=== PATIENT | male | born 1965 | race Caucasian/White ===

== ENCOUNTER 2022-05-10 10:31 | Observation (INO) | payer OTHER, SELFPAY ==
[2022-05-10] VITALS (10 sets, daily range): BP systolic 111–143; BP diastolic 64–99; PULSE 60–86; RESP 14–20; TEMP 36.6–36.8; O2SAT 96–100; BMI 40.0
--- NOTE | 2022-05-10 | ECHO_ITS ---
Patient Info Name: Bubba Saxena Age: 57 years : 1965 Gender: Male Ht: 69 in Wt: 270 lbs BSA: 2.50 m2 HR: 66 bpm BP: 121 / 71 mmHg Heart Rhythm: Sinus Rhythm Exam Date: 05/10/2022 3:12 PM Exam Location: [facility] Patient Status: Emergency Admit Date: 05/10/2022 Staff Ordering Physician: Lyudmila Kaufman NP Cold Food Packer: Amrit Hyde RDCS, RT Attending Provider: Ritu León MD Referring Physician: Mandeep RATLIFF; Exam Type: CA echo doppler color flow Study Info Indications I50.9 - Heart failure, unspecified Complete two-dimensional, color flow and Doppler transthoracic echocardiogram is performed. Summary 1. Complete two-dimensional, color flow and Doppler transthoracic echocardiogram is performed. 2. Technically challenging echocardiogram because of obese body habitus. 3. Overall adequate appearing left ventricular systolic function. 4. Right ventricular dilation and systolic dysfunction. 5. Right atrial enlargement. 6. Tricuspid regurgitation velocity suggests mild pulmonary hypertension. Left Ventricle Left ventricular chamber dimension is normal. Left ventricular systolic function is normal, estimated at 50-55%. The left ventricular diastolic function is grade I diastolic dysfunction. Right Ventricle Right ventricular chamber dimension is moderately enlarged. Right ventricular systolic function is reduced. Left Atria Left atrial chamber dimension is normal. Right Atria Right atrial chamber dimension is moderately enlarged. Aortic Valve The aortic valve is normal. Pulmonic Valve The pulmonic valve is not well visualized. Mitral Valve The mitral valve has normal leaflets. Tricuspid Valve The tricuspid valve leaflets are normal. There is moderate tricuspid valve regurgitation. Mild pulmonary hypertension, estimated pulmonary arterial systolic pressure is Empty. Pericardium/Pleural The pericardium appears normal. Aorta The aortic root size at the sinus of Valsalva is normal. Left Ventricular Outflow Tract Name Value Normal LVOT 2D LVOT Diameter 2.3 cm LVOT Doppler LVOT Peak Gradient 2 mmHg LVOT Mean Gradient 1 mmHg LVOT VTI 16 cm LVOT VTI/AV VTI Ratio 0.7 LVOT Stroke Volume 67 ml LVOT CO 3.9 l/min LVOT CI 1.6 l/min/m2 Mitral Valve Name Value Normal MV Doppler MV Decel [place] 158 cm/s2 MV PHT 101 ms MV Area (PHT) 2.2 cm2 4.0-5.0 MV Diastolic Function MV E Peak Velocity 55 cm/s MV A Peak
--- NOTE | ~2022-05-10 | XR_ITS ---
XR chest 2V DATE: 05/10/2022 12:00 INDICATION: Shortness of breath, bilateral leg swelling. TECHNIQUE: AP and lateral views COMPARISON: 09/19/2011 PA and lateral chest FINDINGS: There is cardiomegaly. There is pulmonary vascular congestion and redistribution. There is mild right and minimal left pleural effusion. There are bilateral central and to a greater extent lower lung zone infiltrates and/or atelectasis, r ight greater than left. Pulmonary edema is suspected. Pneumonia an aspiration pneumonitis or not excl uded. Degenerative changes of the thoracic and lumbar spine. IMPRESSION: Cardiomegaly, congestive heart failure, including mild right and minimal left pleural eff usion Bilateral central and to a greater extent lower lung zone infiltrates and/atelectasis; pulmonary arnoldo a is suspected. Pneumonia and aspiration pneumonitis are not excluded Reviewed, dictated and finalized at location B. CLOSER IMPRESSION: Cardiomegaly, congestive heart failure, including mild right and mi nimal left pleural effusion Bilateral central and to a greater extent lower lung zone infiltrates and/atele ctasis; pulmonary edema is suspected. Pneumonia and aspiration pneumonitis are not excluded
--- NOTE | ~2022-05-10 | US_ITS ---
EXAMINATION: US venous doppler [facility] DATE: 05/10/2022 12:41 INDICATION: Bilateral lower limb swelling TECHNIQUE: Poole scale images without and with compression and Doppler images of the bilateral lower e xtremity veins were obtained. COMPARISON: None FINDINGS: The right common femoral vein, profunda femoral vein, femoral vein, popliteal vein, peroneal trunk, p osterior tibial veins, and greater saphenous vein are patent. The left common femoral vein, profunda femoral vein, femoral vein, popliteal vein, peroneal trunk, po sterior tibial veins, and greater saphenous vein are patent. IMPRESSION: 1. Patent bilateral lower extremity veins. No evidence of deep venous thrombosis. Reviewed, dictated and finalized at location A. ARTIST IMPRESSION: 1. Patent bilateral lower extremity veins. No evidence of deep venous thrombosi s.
--- NOTE | 2022-05-10 10:45 | ECG_ITS ---
Measurements Intervals [place] Rate: 82 P: 27 SC: 217 QRS: 266 QRSD: 107 T: -29 QT: 361 QTc: 423 Interpretive Statements SINUS RHYTHM WITH FIRST DEGREE AV BLOCK SUSPECT PREVIOUS ANTERIOR AND INFERIOR [place] ABNORMAL ECG NO PREVIOUS ECG AVAILABLE FOR COMPARISON Electronically Signed On 05-10-2022 17:19:18 TAPE CONTROL SKIN OR SPAR MILL OPERATOR by Braden Griffin M.D.
[2022-05-10 11:11] LABS: Basophils Percent Auto 0.5 % (0.2-1.2); Eosinophils Percent Auto 0.4 % (0-4.4); Hematocrit 44.9 % (42.0-52.0); Hemoglobin 13.1 g/dL (14.0-18.0); Immature Granulocyte Absolute 0.03 K/mm3 (0.00-0.031); Immature Granulocyte Percent A 0.5 % (0-0.5); Lymphocytes Absolute Auto 0.52 K/mm3 (0.9-3.2); Lymphocytes Percent Auto 9.5 % (18.3-44.2); Mean Corpuscular HGB Conc 29.2 g/dl (32-36); Mean Corpuscular Hemoglobin 28.6 pg (26-34); Mean Platelet Volume 11.3 fl (7.4-10.4); Monocytes Absolute Auto 0.6 K/mm3 (0.1-0.6); Monocytes Percent Auto 10.2 % (2.6-8.5); Neutrophils Absolute Auto 4.3 K/mm3 (1.3-6.7); Neutrophils Percent Auto 78.9 % (45.5-73.1); Nucleated Red Blood Cells Perc 0.4 % (0.0-0.2); Platelet Count Result 194 k/mm3 (150-375); Red Blood Count 4.58 M/mm3 (4.6-6.20); Red Cell Distribution Width 15.3 % (11.5-14.5); White Blood Count 5.5 K/mm3 (4.5-10.0)
[2022-05-10 11:23] LABS: INR 1.2
[2022-05-10 11:24] LABS: Partial Thromboplastin Time 33.1 SECONDS (22.3-36.8)
[2022-05-10 11:30] LABS: Alanine Aminotransferase 18 U/L (6-50); Albumin Level 3.5 g/dL (3.5-5.1); Alkaline Phosphatase 76 U/L (38-126); Anion Gap 5 mmol/L (8-16); Aspartate Amino Transferase 24 U/L (17-59); Bilirubin,Total 0.4 mg/dL (0.2-1.3); Blood Urea Nitrogen 60 mg/dL (9-20); Calcium 8.2 mg/dL (8.4-10.2); Carbon Dioxide 29 mmol/L (22-30); Chloride 101 mmol/L (98-107); Estimated CRCL calculation 22 ml/min; Estimated Glomerular Filt Rate 14; Glucose 120 mg/dL (65-110); Potassium 4.6 mmol/L (3.4-5.0); Sodium 135 mmol/L (137-145)
[2022-05-10 11:35] LABS: NT Pro B Type Natriuretic Pept 23800 pg/mL (5-100); Troponin I 0.163 ng/mL (0.000-0.034)
--- NOTE | 2022-05-10 11:55 | ED.GENADULT ---
HPI - General Adult General Chief complaint: Shortness of Breath/Dyspnea Stated complaint: oxygen level low, leg swelling, PCP sent in Time Seen by Provider: 05/10/22 11:36 Source: patient, RN notes reviewed and old records reviewed Mode of arrival: ambulatory Limitations: no limitations History of Present Illness HPI narrative: This is a 57 year old male with history of DM, hypertension who presents fo evaluation of bilateral leg swelling and low oxygen saturation. Patient has noticed bilateral leg swelling with leg wounds for 2 weeks. He was seen in his PCP office today and he was referred to ER. Patient was found have oxygen saturation in the 80s in triage so he was placed on 3 L NC. He denies chest pain, sob, nausea, vomiting or fever. He has noticed a cough for 1 week. He denies orthopnea as well. He denies history of CHF or heart disease. He also states he was seen by a dethistler operator 2 weeks, and he was told that his heart was fine. He was evaluated at an urgent care 2 weeks ago for leg wounds to bilateral legs. He was prescribed antibiotic ointment and he states his wounds are improving. He denies leg pain. Related Data Home Medications Medication Instructions Recorded Confirmed amlodipine 10 mg tablet 10 mg PO DAILY 10/09/20 05/10/22 calcitriol 0.25 mcg capsule 0.25 mcg PO DAILY 10/09/20 05/10/22 carvedilol 12.5 mg tablet 12.5 mg PO Q12H 10/09/20 05/10/22 levothyroxine 112 mcg capsule 112 mcg PO DAILY 10/09/20 05/10/22 losartan 100 mg tablet 100 mg PO DAILY 10/09/20 05/10/22 pioglitazone 30 mg tablet 30 mg PO DAILY 10/09/20 05/10/22 pravastatin 40 mg tablet 40 mg PO DAILY 10/09/20 05/10/22 Allergies Allergy/AdvReac Type Severity Reaction Status Date / Time No Known Allergies Allergy Unknown Verified 05/10/22 10:32 Review of Systems Review of Systems: All systems reviewed & are unremarkable except as noted in HPI and below Constitutional: Constitutional: Denies chills, Denies fatigue and Denies fever(s) Cardiovascular: Cardiovascular: Denies chest pain, Denies rapid heart rate and Denies radiating jaw, neck or arm pain Respiratory: Respiratory: Denies chest congestion, Reports cough and Denies dyspnea Gastrointestinal: Gastrointestinal: Denies diarrhea and Denies nausea Integumentary/Breasts: Skin/Breast: Denies erythema and Reports skin ulcer Neurologic: Denies focal weakness and Denies numbness PMFSH Past Medical History Medical History (Updated 05/10/22 @ 19:12 by Ritu León MD) Amputated toe CRF (chronic renal failure) Diabetes Erythropoietin deficiency anemia Generalized edema HTN (hypertension) with goal to be determined Hyperlipidemia Hypertension Hypothyroidism Renal osteodystrophy Surgical History Surgical History (Updated 05/10/22 @ 16:44 by Lyudmila Kaufman NP) H/O foot surgery Amputation right great toe History of throat surgery Family History Family History Mother Family history of diabetes mellitus in first degree relative Diabetes mellitus Hypertension Heart disease Cerebrovascular accident Father Alcoholism Sibling Alcoholism Diabetes mellitus Hypertension Heart disease Cerebrovascular accident Other Family history of lung cancer Social History Social History (Updated 05/10/22 @ 16:35 by Lyudmila Kaufman NP) Social History: The patient is and has 1 child. The patient is a former smoker. He denies any alcohol marijuana or illicit drugs. 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 His is the durable power insurance attorney for healthcare. Code status full code Smoking status: Former smoker Alcohol intake: never Substance use: never Substance use type: does not use Lack of Transportation: No Lack of Food: Never True Current Housing: I Have Housing Concerned About Future Housing: No Difficulty Paying Gas/Electric Bills: No Difficulty Paying for Meds: No Currently
[2022-05-10 12:12] LABS: Platelet Estimate Adequate (Adequate)
[2022-05-10 12:13] LABS: Hypochromasia 1+ (NORMAL); Schistocytes None Seen (NORMAL)
[2022-05-10] MEDS: ASPIRIN 81 MG CHEWABLE TABLET 324 MG PO (12:33)
[2022-05-10 12:53] LABS: Appearance Urine Clear (Clear); Bilirubin Urine Negative (Negative); Blood Urine 1+ (Negative); Color Urine Yellow (Yellow); Glucose Urine UA Negative (Negative); Ketones Urine Negative (Negative); Leukocyte Esterase Ur Negative LEU/UL (Negative); Nitrate Urine Negative (Negative); Protein Urine 3+ mg/dL (Negative); Urobilinogen Urine 0.2 mg/dL (<2.0); pH Urine 5.5 (5.0-9.0)
[2022-05-10 13:19] LABS: Mucus Urine Rare /lpf; Squamous Epithelial Cell Urine Rare /hpf (Few); WBC Urine 0-3 /hpf
[2022-05-10 13:20] LABS: Add Urine Microscopic? YES
[2022-05-10 13:28] LABS: Influenza A QL RT-PCR Negative (Negative); Influenza B QL RT-PCR Negative (Negative); SARS-CoV-2 RNA PCR Negative
--- NOTE | 2022-05-10 13:31 | PM.IMHP ---
H&P: HPI History of Present Illness Date/Time: 05/10/22 13:31 Chief Complaint: Shortness of breath Narrative: This is a 57-year-old male patient who has a history of diabetes, hypertension and possibly CHF. The patient noticed increased swelling to his lower extremities. Patient has multiple blisters that have popped open on his lower extremities and started to ooze. The patient stated she is seen by his primary care doctor today was referred to the emergency room. The patient was found have oxygen saturations in the 80s in triage was placed on oxygen at 3 L per nasal cannula. The patient was evaluated at a care approximately 2 weeks ago for his wounds to his lower extremities. He was prescribed an antibiotic ointment. The patient was given an aspirin and Bumex. Venous Doppler showed pain bilateral lower extremity veins. No evidence of deep vein thrombosis. BUN is 60 creatinine is 4.3. Troponin 0.163. BNP 49394. He is negative for influenza A/B and COVID. Chest x-ray was read as Cardiomegaly, congestive heart failure, including mild right and minimal left pleural effusion Bilateral central and to a greater extent lower lung zone infiltrates and/atelectasis; pulmonary edema is suspected. Pneumonia and aspiration pneumonitis are not excluded. Cardiology and Nephrology have been consulted. Wound Care has been consulted as well. The patient is being admitted to observation status on the date of service of 05/10/2022. Review of Systems Review of Systems: See HPI All systems reviewed & are unremarkable except as noted in HPI and below Constitutional: Constitutional: Reports as per HPI and Reports no additional constitutional complaints Eyes: Eyes: Reports as per HPI and Reports no additional eye complaints ENT: Reports system reviewed and no additional complaints, except as documented and Reports Normal hearing present Cardiovascular: Cardiovascular: Reports no additional cardiovascular complaints Respiratory: Respiratory: Reports no additional respiratory complaints and Reports no additional respiratory complaints Gastrointestinal: Gastrointestinal: Reports as per HPI and Reports no additional gastrointestinal complaints Musculoskeletal: Musculoskeletal: Reports no additional musculoskeletal complaints Integumentary/Breasts: Skin/Breast: Reports system reviewed and no additional complaints, except as docu and Reports as per HPI Neurologic: Reports system reviewed and no additional complaints, except as documented, Reports as per HPI and Reports Normal hearing present Psychiatric: Psychiatric: Reports no additional psychiatric complaints and Reports as per HPI Endocrine: Endocrine: Reports no additional endocrine complaints Hematologic/Lymphatic: Hematologic/Lymphatic: Reports no additional hematologic/lymphatic complaints Allergic/Immunologic: Allergic/Immunologic: Reports no additional allergic/immunologic complaints [facility] Past Medical History Medical History (Updated 05/10/22 @ 16:55 by Lyudmila Kaufman NP) Amputated toe CRF (chronic renal failure) Diabetes Erythropoietin deficiency anemia Generalized edema HTN (hypertension) with goal to be determined Hyperlipidemia Hypertension Hypothyroidism Renal osteodystrophy Surgical History Surgical History (Updated 05/10/22 @ 16:44 by Lyudmila Kaufman NP) H/O foot surgery Amputation right great toe History of throat surgery Family History Family History Mother Family history of diabetes mellitus in first degree relative Diabetes mellitus Hypertension Heart disease Cerebrovascular accident Father Alcoholism Sibling Alcoholism Diabetes mellitus Hypertension Heart disease Cerebrovascular accident Other Family history of lung cancer Social History Social History (Updated 05/10/22 @ 16:35 by Lyudmila Kaufman NP) Social History: The patient is and has 1 child. The patient is
[2022-05-10] MEDS: BUMETANIDE INJ 1 MG/4 ML VIAL IV PUSH (14:18)
--- NOTE | 2022-05-10 16:21 | PC.NURSE ---
renal diet food tray ordered
--- NOTE | 2022-05-10 16:24 | PM.CNNEP ---
Assessment and Plan Assessment and plan (1) CRF (chronic renal failure): Code(s): N18.9 - Chronic kidney disease, unspecified Status: Acute Assessment and Plan: the patient has chronic kidney disease. In 2020 his creatinine was 3.6. Now it is 4.3. Etiology of the kidney disease is most likely diabetes and hypertension. He may have some vascular disease as well. He has been evaluated by Dr. Davis in the past and so I will not repeat this evaluation. The rise from 3.6-4.3 occurred in about 3 years. This is actually not much of a rise and so is most likely due to progression of chronic kidney disease. we discussed that hydration, control of diabetes and hypertension, and following his diet are important parts of slowing the damage to his kidneys. (2) HTN (hypertension) with goal to be determined: Code(s): I10 - Essential (primary) hypertension Status: Acute Assessment and Plan: The patient has hypertension. His blood pressure is under good control. He is on amlodipine and losartan for this. (3) Generalized edema: Code(s): R60.1 - Generalized edema Status: Acute Assessment and Plan: The patient has significant swelling. This started about 2 weeks ago he says. Venous Dopplers are negative. Chest x-ray shows cardiomegaly and congestive heart failure. It is possible that with his progression of kidney disease he just has fluid overload because of the kidneys. It is also possible the has some sort of new heart condition causing his swelling. He may have nephrotic range proteinuria which has worsened and caused the swelling. Amlodipine and pioglitazone both cause swelling as well. At this point will get an echocardiogram, will check a urine protein to creatinine ratio, and will give some diuretics. Consider changing amlodipine and pioglitazone to something else? (4) Diabetes: Code(s): E11.9 - Type 2 diabetes mellitus without complications Status: Acute Assessment and Plan: The patient has diabetes. management per hospitalist (5) Hypothyroidism: Code(s): E03.9 - Hypothyroidism, unspecified Status: Acute Assessment and Plan: patient is on supplements for this (6) Erythropoietin deficiency anemia: Code(s): D63.1 - Anemia in chronic kidney disease Status: Acute Assessment and Plan: hemoglobin is low but just barely so. No need for SHERINE. (7) Renal osteodystrophy: Code(s): N25.0 - Renal osteodystrophy Status: Acute Assessment and Plan: Will check a phosphorus level in the morning History of Present Illness Reason for Consult Consult date: 05/10/22 Chief Complaint Chief complaint: CHF/Hypoxia/Pulmonary Edema History of Present Illness Narrative: Bubba is a very pleasant 57-year-old gentleman who has multiple medical problems including hypertension, diabetes, renal chronic kidney disease, renal osteodystrophy, hypothyroidism, hyperlipidemia, amputated right toe. The patient has been following with Dr. Davis in the office. His creatinine has been gradually rising apparently according to the patient. He and Dr. Davis have been talking about dialysis being in the future but not right away. He is supposed to see Dr. Davis in a week to talk more about dialysis. He has not received any education. The patient says that about 2 weeks ago he started swelling. This came on all of a sudden. After that it got a little worse but not all that much. Today he came to the emergency room because it would not get better. He did not try calling any doctors about this in the meantime. He has not changed his medications. He has not been out of town or change his diet. He has not had any chest pain or shortness of breath. He has not had any fevers or chills. He has had hypertension for a long time. He says this is been under good control. He has never had a stroke or he
[2022-05-10] MEDS: SILVERGEL (ELTA) 45 ML 1 APPLIC TOPICAL (17:39)
[2022-05-10 17:57] LABS: Glucose Point of Care 87 mg/dl (65-105)
--- NOTE | 2022-05-10 18:00 | PC.NURSE ---
called pharmacy to verify Coreg.
[2022-05-10 18:56] LABS: Hemoglobin A1C 5.8 % (<5.7)
[2022-05-10 18:57] LABS: Glucose Point of Care 102 mg/dl (65-105)
--- NOTE | 2022-05-10 20:43 | PC.NURSE ---
Dr. Samuels notified of leaving AMA. supervisor metal furniture fabrication notified by the charge nurse.
--- NOTE | 2022-05-17 23:57 | PM.DS ---
DS: Admitting Diagnosis Discharge Date 05/10/22 Admitting Diagnosis CHF DS: Discharge Diagnosis Discharge Diagnosis Plan (1) Congestive heart failure: ?Code(s): I50.9 - Heart failure, unspecified ?Status:?Acute ?Assessment and Plan: -an echo has been ordered -the patient has been on Coreg And he has been on losartan. -patient has a history of chronic renal disease so I am holding his losartan for now -cardiology has been consulted for further recommendation. -I am holding the Norvasc as it can cause some edema. (2) CRF (chronic renal failure): ?Code(s): N18.9 - Chronic kidney disease, unspecified ?Status:?Acute ?Assessment and Plan: -nephrology has been consulted here the patient sees Dr. Davis.? There has been some discussion about dialysis. -I am holding his losartan and pioglitazone due to the renal failure. (3) Diabetes: ?Code(s): E11.9 - Type 2 diabetes mellitus without complications ?Status:?Acute ?Assessment and Plan: -nephrology suggested that the patient be changed to something other than pioglitazone. -I will do sliding scale insulin with hypoglycemic protocol and Accu-Cheks AC and HS. -check A1c. (4) Erythropoietin deficiency anemia: ?Code(s): D63.1 - Anemia in chronic kidney disease ?Status:?Acute ?Assessment and Plan: -hemoglobin 13.1 today -continue to monitor (5) History of laryngeal cancer: ?Code(s): Z85.21 - Personal history of malignant neoplasm of larynx ?Status:?Acute ?Assessment and Plan: -the patient stated he is in remission (6) HTN (hypertension) with goal to be determined: ?Code(s): I10 - Essential (primary) hypertension ?Status:?Acute ?Assessment and Plan: -continue with Coreg -p.r.n. hydralazine with parameters.? -I am holding Norvasc due to the side effects of edema.? -holding losartan due to the acute on chronic renal failure. (7) Renal osteodystrophy: ?Code(s): N25.0 - Renal osteodystrophy ?Status:?Acute ?Assessment and Plan: -Dr. Munoz has seen the patient.? Although this patient usually sees Dr. davis .? There has been some talk about possible dialysis. (8) Thyroid disorder: ?Code(s): E07.9 - Disorder of thyroid, unspecified ?Status:?Acute ?Assessment and Plan: -check thyroid level and continue levothyroxine (9) Hyperlipidemia: ?Code(s): E78.5 - Hyperlipidemia, unspecified ?Status:?Acute ?Assessment and Plan: -continue with pravastatin Plan The patient has several areas to his lower extremity were blisters that popped open and I did consult wound care nurse. Quality VTE Prophylaxis VTE prophylaxis: pharmacologic ordered This dictation may have been done utilizing a voice recognition system.? Attempts have been made to correct errors. However, there may be uncorrected grammatical, spelling, and recognition errors present. Report Initialized date/time:? Lyudmila Kaufman CHIEF CATALYST OPERATOR? 05/10/221336 Electronically signed by:?? Lyudmila Kaufman CHIEF CATALYST OPERATOR? 05/10/22 1700 DS: Summary Hospital Course Reason for hospitalization: See above. It was reported to me that the patient signed out AMA. Hospital Course: [facility] [address] [place] [address] History & Physical Report Signed Patient: Bubba Saxena MR#: [id number] : 1965 Acct:[id number] Age/Sex: 57 / M ADM Date: 05/10/22 Loc: [facility]6-[address]: Karina Robles DO cc: Ritu León MD; Karina Robles DO; Epi, Kenzie Turner MD~ H&P: HPI History of Present Illness Date/Time: 05/10/22? 13:31 Chief Complaint: Shortness of breath Narrative: This is a 57-year-old male patient who has a history of diabetes, hypertension and possibly CHF.? The patient noticed increased swelling to his lower extremities.? Patient has multiple blisters that have popped open on his lower
== END 2022-05-10 21:00 | disposition left against medical advice (07) ==
LOC: ANHED 12:34 → ANHIMU 16:16
PROVIDERS: Nurse Practitioner; Nurse Practitioner Family; Admitting Provider Student in an Organized Health Care Education/Training Program; Emergency Provider General Practice; PCP Family Medicine; Visit Provider Student in an Organized Health Care Education/Training Program
DX: I13.0 Hypertensive heart and chronic kidney disease with heart failure and stage 1 through stage 4 chronic kidney disease, or unspecified chronic kidney disease (principal); I50.9 Heart failure, unspecified; E11.22 Type 2 diabetes mellitus with diabetic chronic kidney disease; N18.9 Chronic kidney disease, unspecified; D63.1 Anemia in chronic kidney disease; N25.0 Renal osteodystrophy; E03.9 Hypothyroidism, unspecified; E78.5 Hyperlipidemia, unspecified; R60.0 Localized edema; R09.02 Hypoxemia; S81.802A Unspecified open wound, left lower leg, initial encounter; S81.801A Unspecified open wound, right lower leg, initial encounter; R05.9 Cough, unspecified; Z89.421 Acquired absence of other right toe(s); E87.70 Fluid overload, unspecified; Z20.822 Contact with and (suspected) exposure to COVID-19; R91.8 Other nonspecific abnormal finding of lung field; I07.1 Rheumatic tricuspid insufficiency; R94.31 Abnormal electrocardiogram [ECG] [EKG]; R35.89 Other polyuria; Z85.21 Personal history of malignant neoplasm of larynx; Z87.891 Personal history of nicotine dependence; Z79.899 Other long term (current) drug therapy; Z83.3 Family history of diabetes mellitus; Z82.49 Family history of ischemic heart disease and other diseases of the circulatory system; Z82.3 Family history of stroke
CPT/HCPCS: 36415; 71046; 80053; 81001; 82948; 83036; 83880; 84484; 85025; 85610; 85730; 87636; 93005; 93306; 93970; 96374; 99285; A9270; G0378; G0379

== ENCOUNTER 2022-08-24 01:32 | Emergency (ER) | payer OTHER, SELFPAY ==
[2022-08-24] VITALS (8 sets, daily range): BP systolic 97–138; BP diastolic 64–91; PULSE 86–136; RESP 16–22; TEMP 36.7; O2SAT 95–97
--- NOTE | ~2022-08-24 | XR_ITS ---
EXAMINATION: XR chest 2V DATE: 08/24/2022 03:07 INDICATION: Hypoxia TECHNIQUE: PA and lateral views of the chest are obtained. COMPARISON: 05/10/2022 FINDINGS: There are persistent airspace opacities in the left lung base. A tracheostomy is noted. No pleural effusion or pneumothorax. The cardiomediastinal silhouette is normal. There is mild thoracic spondylosis. A gastrostomy is noted. IMPRESSION: 1. Left basilar airspace opacity, consistent with atelectasis versus pneumonia. Reviewed, dictated and finalized at location A.
--- NOTE | 2022-08-24 02:01 | ECG_ITS ---
Measurements Intervals [place] Rate: 104 P: 50 MI: 200 QRS: 115 QRSD: 98 T: -5 QT: 329 QTc: 433 Interpretive Statements SINUS TACHYCARDIA RIGHT AXIS DEVIATION POSSIBLE LEFT ATRIAL ENLARGEMENT BORDERLINE AV CONDUCTION DELAY PATTERN CONSISTENT WITH PULMONARY DISEASE BORDERLINE ST-T WAVE ABNORMALITY- INFERIOR LEADS BASELINE ARTIFACT- I, II, III, AVR, AVL, AVF, V1-V6 BORDERLINE ECG COMPARED TO ECG 05/10/2022 10:51:24 SINUS TACHYCARDIA NOW PRESENT Electronically Signed On 08-24-2022 8:25:29 CDT by Emery Valera D.O.
[2022-08-24 02:18] LABS: Basophils Percent Auto 0.4 % (0.2-1.2); Hematocrit 40.6 % (42.0-52.0); Hemoglobin 13.3 g/dL (14.0-18.0); Immature Granulocyte Absolute 0.05 K/mm3 (0.00-0.031); Immature Granulocyte Percent A 0.5 % (0-0.5); Lymphocytes Absolute Auto 0.75 K/mm3 (0.9-3.2); Lymphocytes Percent Auto 7.8 % (18.3-44.2); Mean Corpuscular HGB Conc 32.8 g/dl (32-36); Mean Corpuscular Hemoglobin 31.2 pg (26-34); Mean Corpuscular Volume 95.3 fl (80-100); Mean Platelet Volume 12.3 fl (7.4-10.4); Monocytes Absolute Auto 0.6 K/mm3 (0.1-0.6); Monocytes Percent Auto 5.8 % (2.6-8.5); Neutrophils Absolute Auto 8.2 K/mm3 (1.3-6.7); Neutrophils Percent Auto 85.5 % (45.5-73.1); Platelet Count Result 165 k/mm3 (150-375); Red Blood Count 4.26 M/mm3 (4.6-6.20); White Blood Count 9.6 K/mm3 (4.5-10.0)
[2022-08-24 02:39] LABS: Alanine Aminotransferase 19 U/L (6-50); Albumin Level 3.7 g/dL (3.5-5.1); Alkaline Phosphatase 94 U/L (38-126); Aspartate Amino Transferase 21 U/L (17-59); Bilirubin,Total 0.7 mg/dL (0.2-1.3); Blood Urea Nitrogen 69 mg/dL (9-20); Calcium 9.3 mg/dL (8.4-10.2); Carbon Dioxide 30 mmol/L (22-30); Estimated CRCL calculation 28 ml/min; Estimated Glomerular Filt Rate 25; Glucose 153 mg/dL (65-110)
[2022-08-24 02:41] LABS: Anion Gap 6 mmol/L (8-16); Chloride 98 mmol/L (98-107); Potassium 4.5 mmol/L (3.4-5.0); Sodium 134 mmol/L (137-145)
--- NOTE | 2022-08-24 02:58 | ED.GENADULT ---
HPI - General Adult General Chief complaint: Shortness of Breath/Dyspnea Stated complaint: low oxygen levels, trach Time Seen by Provider: 08/24/22 02:19 History of Present Illness HPI narrative: Patient 57-year-old gentleman who presents the emergency department with chief complaint of cough and shortness of breath. The patient reports that he has history of a tracheostomy secondary to pneumonia and reports that over the last several days he has noticed that he has been having increasing shortness of breath has had a productive cough and reports that he has had some wheezing. Patient reports that has had no fever or body aches he also reports that his blood oxygen levels have gone down into the 80s he is normally on 4 L trach collar Related Data Home Medications Medication Instructions Recorded Confirmed amlodipine 10 mg tablet 10 mg PO DAILY 10/09/20 05/10/22 calcitriol 0.25 mcg capsule 0.25 mcg PO DAILY 10/09/20 05/10/22 carvedilol 12.5 mg tablet 12.5 mg PO Q12H 10/09/20 05/10/22 levothyroxine 112 mcg capsule 112 mcg PO DAILY 10/09/20 05/10/22 losartan 100 mg tablet 100 mg PO DAILY 10/09/20 05/10/22 pioglitazone 30 mg tablet 30 mg PO DAILY 10/09/20 05/10/22 pravastatin 40 mg tablet 40 mg PO DAILY 10/09/20 05/10/22 Allergies Allergy/AdvReac Type Severity Reaction Status Date / Time No Known Allergies Allergy Unknown Verified 08/24/22 01:33 Review of Systems Review of Systems: A 10 system review of systems was completed on the patient and is negative except for what is stated in the HPI. Nursing and ancillary documentation was reviewed. [facility] Past Medical History Medical History Amputated toe CRF (chronic renal failure) Diabetes Erythropoietin deficiency anemia Generalized edema HTN (hypertension) with goal to be determined Hyperlipidemia Hypertension Hypothyroidism Renal osteodystrophy Surgical History Surgical History H/O foot surgery Amputation right great toe History of throat surgery Family History Family History Mother Family history of diabetes mellitus in first degree relative Diabetes mellitus Hypertension Heart disease Cerebrovascular accident Father Alcoholism Sibling Alcoholism Diabetes mellitus Hypertension Heart disease Cerebrovascular accident Other Family history of lung cancer Social History Social History Social History: The patient is and has 1 child. The patient is a former smoker. He denies any alcohol marijuana or illicit drugs. 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 His is the durable power wind operations manager for healthcare. Code status full code Smoking status: Former smoker Alcohol intake: never Substance use: never Substance use type: does not use Lack of Transportation: No Lack of Food: Never True Current Housing: I Have Housing Concerned About Future Housing: No Difficulty Paying Gas/Electric Bills: No Difficulty Paying for Meds: No Currently Unemployed: No Education: High School Diploma/GED Difficulty w/ Childcare or Family Care: No Gender identity (if verbalized by the patient): Male Spiritual care concerns: No Exam Narrative: GENERAL: Well-appearing, well-nourished, and in no acute distress. HEAD: Normocephalic, atraumatic. EYES: PERRLA and EOMI. ENT: Nares clear, no rhinorrhea or epistaxis. Mucous membranes moist. NECK: Supple. Tracheostomy in place CHEST: Clear to auscultation. No respiratory distress. HEART: Regular rate and rhythm. No murmur heard. Normal peripheral pulses. ABDOMEN: Soft, nontender, nondistended, normal active bowel sounds. EXTREMITIES: Normal range of motion. No edema. SKIN: Warm, dry, no rash. NEURO: No focal deficits. Alert and orien
[2022-08-24] MEDS: ALBUTEROL SULFATE NEB 2.5 MG/3 ML INH INHALATION (03:10)
[2022-08-24] MEDS: IPRATROPIUM BR 0.02% INH SOLN 0.5 MG/2.5 ML VIAL INHALATION (03:10)
[2022-08-24 03:57] LABS: Lactic Acid Reflex 1.2 mmol/L (0.7-2.0)
[2022-08-24 03:58] LABS: INR 1.2; Prothrombin Time 14.3 Seconds (11.1-14.7)
[2022-08-24 03:59] LABS: Partial Thromboplastin Time 40.6 SECONDS (22.3-36.8)
[2022-08-24 04:15] LABS: NT Pro B Type Natriuretic Pept 4280 pg/mL (19.9-100)
[2022-08-24 04:20] LABS: Influenza A QL RT-PCR Negative (Negative); Influenza B QL RT-PCR Negative (Negative); RSV RNA, RT-PCR Negative (Negative); SARS-CoV-2 RNA PCR Negative
[2022-08-24 04:30] LABS: Procalcitonin 0.6 ng/mL
[2022-08-24 06:10] LABS: Troponin I 0.055 ng/mL (0.000-0.034)
== END 2022-08-24 06:37 | disposition home or self-care (01) ==
PROVIDERS: Emergency Provider Emergency Medicine; PCP Family Medicine
DX: J44.1 Chronic obstructive pulmonary disease with (acute) exacerbation (principal); E11.9 Type 2 diabetes mellitus without complications; I10 Essential (primary) hypertension; E78.5 Hyperlipidemia, unspecified; E03.9 Hypothyroidism, unspecified; Z87.891 Personal history of nicotine dependence; Z20.822 Contact with and (suspected) exposure to COVID-19
CPT/HCPCS: 36415; 71046; 80053; 83605; 83880; 84145; 84484; 85025; 85610; 85730; 87637; 93005; 94640; 99283

== ENCOUNTER 2022-11-14 08:39 | Outpatient (RCR) | payer OTHER, SELFPAY ==
--- NOTE | 2022-11-14 09:05 | PTOPEVDC ---
Assessment and note entered by Jazzy Cintron, PT Thank you for referring Bubba Saxena to [facility].? An evaluation has been completed. No further treatment is needed. Evaluation Information Assessment Status Evaluation Diagnosis fall Onset 3 month ago Subjective Information Referred to physical therapy due to a fall. Patient denies unsteadiness at this time. Patient denies difficulty walking in community or performing household tasks. Patient does not feel that he needs physical therapy at this time. Reported Pain Level Pain Score 0: Self Report Assessment PT Clinical Summary Patient referred to physical therapy following one fall in home about 3 months ago. Patient denies falls since thenn and also denies need for PT services at this time. Patient demonstrates B LE strength 5/5 at this time and demonstrates independence with gait and transfers. Tinetti score of 28 at this time. Will DC from PT due to patient denying goals or need for services. Plan of Care PT Services Indicated No
== END 2022-11-14 14:15 | disposition home or self-care (01) ==
LOC: ANHPT 08:39
PROVIDERS: PCP Family Medicine; Visit Provider Physician Assistant
DX: R29.6 Repeated falls (principal)
CPT/HCPCS: 97161

== ENCOUNTER 2023-05-07 19:06 | Inpatient (IN) | payer OTHER, SELFPAY ==
[2023-05-07] VITALS (9 sets, daily range): BP systolic 99–162; BP diastolic 83–110; PULSE 85–90; RESP 13–22; TEMP 36.9; O2SAT 70–98
--- NOTE | ~2023-05-07 | XR_ITS ---
EXAMINATION: XR chest 1V portable Exam Date/Time: 05/07/2023 19:35 TOWERMAN HISTORY: SOB WITH CELLULITIS TO BILATERAL LOWER EXTREMITIES Comparison: 08/24/2022. RESULT: Lines, tubes, and devices: Surgical clips over the midline lower neck. Lungs and pleura: Mild bilateral interstitial opacities. Subsegmental bibasilar opacities with moder ate bilateral costophrenic angle blunting. Cardiomediastinal silhouette: Stable. Other: No acute osseous or upper abdominal finding. IMPRESSION: Mild edema. Moderate bilateral effusions with bibasilar atelectasis. Infection is not excluded. Reviewed, dictated and finalized at location K. RMAN
--- NOTE | ~2023-05-07 | XR_ITS ---
Portable chest x-ray Comparison: 05/12/2023 Clinical History: Respiratory failure Findings: Tracheostomy cannula and right IJ line are in place. Small bilateral pleural effusions are present with bibasilar pulmonary edema/atelectasis. Cardiomediastinal silhouette is stable. Bones a nd soft tissues are unremarkable. Impression: Small bilateral pleural effusions with bibasilar pulmonary edema/atelectasis. Correlate clinically fo r pneumonia. Support tubes, as above. Reviewed, dictated and finalized at location M. ICAL REHABILITATION SPECIALIST Impression: Small bilateral pleural effusions with bibasilar pulmonary edema/atelectasis. C orrelate clinically for pneumonia. Support tubes, as above.
--- NOTE | ~2023-05-07 | XR_ITS ---
EXAMINATION: XR fl guide central line place INDICATION: Tunneled dialysis catheter insertion TECHNIQUE: A single intraoperative fluoroscopic images submitted for review. Total fluoroscopic time was 257.1 seconds. COMPARISON: None available FINDINGS: Fluoroscopic image demonstrates a left internal jugular catheter followed as far as the bra chiocephalic vein. Please refer to procedure note for full details. IMPRESSION: 1. Please refer to procedure note for full details. Reviewed, dictated and finalized at location L. BORER
--- NOTE | ~2023-05-07 | XR_ITS ---
EXAMINATION: XR chest 1V portable DATE: 05/09/2023 18:22 INDICATION: Hypoxia. TECHNIQUE: A single frontal view of the chest was obtained. COMPARISON: Chest single view 05/07/2023 FINDINGS: There are moderate-sized pleural effusions. There are airspace opacities in the mid and low er lung zones with a basilar predominance. No pneumothorax. Cardiomegaly is noted. A tracheostomy tub e is noted. IMPRESSION: 1. Stable moderate-sized pleural effusions. 2. Worsened airspace opacities in the mid and lower lung zones with a basilar predominance, consisten t with atelectasis versus pneumonia. 3. Cardiomegaly. Reviewed, dictated and finalized at location E. COVERING MACHINE OPERATOR IMPRESSION: 1. Stable moderate-sized pleural effusions. 2. Worsened airspace opacities in the mid and lower lung zones with a basilar p redominance, consistent with atelectasis versus pneumonia. 3. Cardiomegaly.
--- NOTE | ~2023-05-07 | XR_ITS ---
Portable chest x-ray Comparison: 05/13/2023 Clinical History: Respiratory failure Findings: Tracheostomy cannula and right IJ line are in place. Small bilateral pleural effusions are present with hazy bibasilar and perihilar airspace disease. Cardiomediastinal silhouette is stable. Bones and soft tissues are unremarkable. Impression: Small bilateral pleural effusions with mild pulmonary edema. Stable support tubes. Reviewed, dictated and finalized at location . MACHINE OPERATOR Impression: Small bilateral pleural effusions with mild pulmonary edema. Stable support tubes.
--- NOTE | ~2023-05-07 | XR_ITS ---
Portable chest x-ray Comparison: 05/15/2023 Clinical History: Respiratory failure Findings: Tracheostomy cannula and right IJ line are unchanged. Small bilateral pleural effusions ar e present, with bibasilar pulmonary edema. Cardiomediastinal silhouette is stable. Bones and soft ti ssues are unremarkable. Impression: Small bilateral pleural effusions with bibasilar pulmonary edema. Stable support tubes. Reviewed, dictated and finalized at location . ER ASSEMBLER Impression: Small bilateral pleural effusions with bibasilar pulmonary edema. Stable support tubes.
--- NOTE | ~2023-05-07 | US_ITS ---
EXAMINATION: US retroperitoneal comp DATE: 05/11/2023 12:19 INDICATION: acute renal failure TECHNIQUE: Multiple grayscale and Doppler ultrasound images of the kidneys were obtained. COMPARISON: None. FINDINGS: The right kidney measures 9.2 x 4.8 x 5.0 cm. The left kidney measures 10.2 x 5.2 x 5.1 cm. The kidne ys demonstrate normal parenchymal echogenicity. There is no hydronephrosis. The bladder is not visual ized. IMPRESSION: Unremarkable renal sonogram findings. Reviewed, dictated and finalized at location K. UTIVE CANDIDATE DEVELOPER
--- NOTE | ~2023-05-07 | XR_ITS ---
EXAMINATION: XR chest 1V portable INDICATION: Hypoxia TECHNIQUE: Portable AP chest at 0549 hours COMPARISON: 05/10/2023 FINDINGS: There are small pleural effusions. A tracheostomy ends approximately 2.7 cm above the sukhwinder a. There is no pneumothorax. Airspace opacities of the mid and lower lung zones persist but have impr ronit. The cardiomediastinal silhouette is stable. Cardiomegaly is noted. IMPRESSION: 1. Small pleural effusions with interval improvement. 2. Improving airspace opacities of the mid and lower lung zones, consistent with atelectasis versus p neumonia. Reviewed, dictated and finalized at location F. OMETRIC TECHNICIAN IMPRESSION: 1. Small pleural effusions with interval improvement. 2. Improving airspace opacities of the mid and lower lung zones, consistent wit h atelectasis versus pneumonia.
--- NOTE | ~2023-05-07 | XR_ITS ---
EXAMINATION: XR chest ET placement Exam Date/Time: 05/10/2023 19:50 DOUGH BRAKER HISTORY: ET placement Comparison: 05/21/2023. RESULT: Lines, tubes, and devices: Endotracheal tube terminating 3.0 cm above the jia. Lungs and pleura: Hazy diffuse opacity in the right lung. Graded opacities in the bilateral mid and lower lungs. Moderate bilateral costophrenic angle blunting, greater on the right. Cardiomediastinal silhouette: Stable. Other: No acute osseous or upper abdominal finding. IMPRESSION: Endotracheal tube terminates 3 cm above the jia. Unchanged bilateral mid and lower lung opacities and bilateral effusions, given interval change in po sition. Reviewed, dictated and finalized at location K. H BRAKER IMPRESSION: Endotracheal tube terminates 3 cm above the jia. Unchanged bilateral mid and lower lung opacities and bilateral effusions, given interval change in position.
--- NOTE | ~2023-05-07 | XR_ITS ---
EXAMINATION: XR chest port-a-cath/central DATE: 05/20/2023 15:15 INDICATION: Central line placement. TECHNIQUE: A single frontal view of the chest was obtained on 2 radiographs. COMPARISON: Chest single view 05/16/2023 FINDINGS: There are small pleural effusions. There are airspace opacities at the lung bases, likely a telectasis. There is a diffuse interstitial pattern in the lungs, consistent with mild pulmonary arnoldo a. No pneumothorax. Cardiomegaly is noted. There is a tracheostomy tube in expected position. A left internal jugular central venous catheter is seen with tip in the proximal right atrium. IMPRESSION: 1. Central line tip in proximal right atrium. 2. Mild pulmonary edema. 3. Stable small pleural effusions. 3. Cardiomegaly. Reviewed, dictated and finalized at location E. WELL PUMPER
--- NOTE | ~2023-05-07 | XR_ITS ---
Portable chest x-ray Comparison: 05/14/2023 Clinical History: Respiratory failure Findings: Tracheostomy cannula and right IJ line are in place. Small bilateral pleural effusions are present with probable minimal bibasilar pulmonary edema. Cardiomediastinal silhouette is stable. Suhas [place] and soft tissues are unremarkable. Impression: Small bilateral pleural effusions with minimal bibasilar pulmonary edema. Support tubes, as above. Reviewed, dictated and finalized at location . ES INSPECTOR Impression: Small bilateral pleural effusions with minimal bibasilar pulmonary edema. Support tubes, as above.
--- NOTE | ~2023-05-07 | XR_ITS ---
EXAMINATION: XR abdomen/kub 1V INDICATION: Abdominal distention TECHNIQUE: Supine views of the abdomen were obtained on 2 radiographs. COMPARISON: 09/06/2016 FINDINGS: A gastrostomy is noted. No definitely dilated loops of bowel are identified. 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 IMPRESSION: 1. No definitely dilated loops of bowel. Reviewed, dictated and finalized at location F. BUG EXTERMINATOR
--- NOTE | ~2023-05-07 | XR_ITS ---
Portable chest x-ray Comparison: 05/11/2023 Clinical History: Respiratory failure Findings: Tracheostomy cannula and right-sided central venous line are in satisfactory positions. Th ere are small bilateral pleural effusions with mild to moderate pulmonary edema pattern. Cardiomedia stinal silhouette is stable. Bones and soft tissues are unremarkable. Impression: Probable bilateral pleural effusions with mild to moderate pulmonary edema pattern. Support lines, as above. Reviewed, dictated and finalized at location M. ETES TERRITORY MANAGER Impression: Probable bilateral pleural effusions with mild to moderate pulmonary edema radha lina. Support lines, as above.
--- NOTE | ~2023-05-07 | XR_ITS ---
EXAMINATION: XR chest 1V portable INDICATION: Dialysis catheter insertion TECHNIQUE: Portable AP chest at 1104 hours COMPARISON: 05/11/2023 FINDINGS: A right internal jugular dialysis catheter has been inserted which ends with its tip in the proximal right atrium. There is no pneumothorax. The tracheostomy is approximately 2.7 cm above the jia. There are small pleural effusions. Airspace opacities of the mid and lower lung zones persist without significant change. Cardiomegaly is noted. IMPRESSION: 1. Right internal jugular dialysis catheter insertion ending in the proximal right atrium. No pneumot horax. Otherwise, no significant change. Reviewed, dictated and finalized at location F. IMPRESSION: 1. Right internal jugular dialysis catheter insertion ending in the proximal ri ght atrium. No pneumothorax. Otherwise, no significant change.
--- NOTE | 2023-05-07 19:21 | ECG_ITS ---
Measurements Intervals [place] Rate: 86 P: 4 PA: 194 QRS: 36 QRSD: 101 T: -6 QT: 354 QTc: 425 Interpretive Statements SINUS RHYTHM WITH SINUS ARRHYTHMIA LOW QRS VOLTAGE IN PRECORDIAL LEADS [QRS DEFLECTION < 1.0 mV IN CHEST LEADS] POSSIBLE ANTERIOR MYOCARDIAL INFARCTION , OF INDETERMINATE AGE [30 ms Q WAVE IN V3/V4, OR R < 0.2 mV IN V4] COMPARED TO ECG 08/24/2022 02:08:37 SINUS RHYTHM NOW PRESENT SINUS ARRHYTHMIA NOW PRESENT Electronically Signed On 05-08-2023 9:16:14 ELECTROPHYSIOLOGY TECH by Keily Saleh M.D.
--- NOTE | 2023-05-07 19:34 | PC.NURSE ---
Pt has PEG tube in place on arrival, but states he no longer uses it. Daughter at bedside helping communicate for pt.
[2023-05-07 19:35] LABS: Basophils Percent Auto 0.3 % (0.2-1.2); Eosinophils Percent Auto 0.6 % (0-4.4); Hematocrit 40.2 % (42.0-52.0); Hemoglobin 11.6 g/dL (14.0-18.0); Immature Granulocyte Absolute 0.07 K/mm3 (0.00-0.031); Lymphocytes Absolute Auto 0.69 K/mm3 (0.9-3.2); Lymphocytes Percent Auto 9.9 % (18.3-44.2); Mean Corpuscular HGB Conc 28.9 g/dl (32-36); Mean Corpuscular Hemoglobin 27.5 pg (26-34); Mean Corpuscular Volume 95.3 fl (80-100); Mean Platelet Volume 11.8 fl (7.4-10.4); Monocytes Absolute Auto 0.3 K/mm3 (0.1-0.6); Monocytes Percent Auto 4.7 % (2.6-8.5); Neutrophils Absolute Auto 5.9 K/mm3 (1.3-6.7); Neutrophils Percent Auto 83.5 % (45.5-73.1); Nucleated Red Blood Cells Perc 0.6 % (0.0-0.2); Platelet Count Result 203 k/mm3 (150-375); Red Blood Count 4.22 M/mm3 (4.6-6.20); Red Cell Distribution Width 16.3 % (11.5-14.5)
[2023-05-07 19:45] LABS: Alanine Aminotransferase 77 U/L (6-50); Albumin Level 3.7 g/dL (3.5-5.1); Alkaline Phosphatase 63 U/L (38-126); Anion Gap 11 mmol/L (8-16); Aspartate Amino Transferase 112 U/L (17-59); Bilirubin,Total 0.9 mg/dL (0.2-1.3); Blood Urea Nitrogen 94 mg/dL (9-20); Calcium 8.2 mg/dL (8.4-10.2); Carbon Dioxide 20 mmol/L (22-30); Chloride 108 mmol/L (98-107); Estimated Glomerular Filt Rate 8; Glucose 95 mg/dL (65-110); Potassium 5.3 mmol/L (3.4-5.0); Sodium 139 mmol/L (137-145)
[2023-05-07 19:46] LABS: INR 1.1
[2023-05-07 20:00] LABS: NT Pro B Type Natriuretic Pept > 30000 pg/mL (19.9-100); Troponin I 0.398 ng/mL (0.000-0.034)
[2023-05-07 20:09] LABS: Hypochromasia 1+ (NORMAL); Platelet Estimate Adequate (Adequate); Schistocytes None Seen (NORMAL)
--- NOTE | 2023-05-07 20:09 | ED.GENADULT ---
HPI - General Adult General Chief complaint: Unspecified Stated complaint: cellulitis Time Seen by Provider: 05/07/23 20:09 Source: patient, family and EMS Limitations: clinical condition History of Present Illness HPI narrative: 58 years old white male came to the emergency room with his daughter from home complaining of progressive swelling all over his body started over 2 months ago, gradually get worse. Mainly lower extremity and scrotum. Patient was seen at urgent care 1 week ago and was started on amoxicillin for lower legs cellulitis. The daughter is telling me that patient can not lay down flat because of shortness of breath. Feels better sitting up at the side of the bed. History of tracheostomy, feeding tube, kidney failure, CHF. Related Data Home Medications Medication Instructions Recorded Confirmed amlodipine 10 mg tablet 10 mg PO DAILY 10/09/20 05/10/22 calcitriol 0.25 mcg capsule 0.25 mcg PO DAILY 10/09/20 05/10/22 carvedilol 12.5 mg tablet 12.5 mg PO Q12H 10/09/20 05/10/22 levothyroxine 112 mcg capsule 112 mcg PO DAILY 10/09/20 05/10/22 losartan 100 mg tablet 100 mg PO DAILY 10/09/20 05/10/22 pioglitazone 30 mg tablet 30 mg PO DAILY 10/09/20 05/10/22 Allergies Allergy/AdvReac Type Severity Reaction Status Date / Time No Known Allergies Allergy Unknown Verified 05/07/23 19:30 Review of Systems Review of Systems: All systems reviewed & are unremarkable except as noted in HPI and below PMFSH Past Medical History Medical History Amputated toe CRF (chronic renal failure) Diabetes Erythropoietin deficiency anemia Generalized edema HTN (hypertension) with goal to be determined Hyperlipidemia Hypertension Hypothyroidism Renal osteodystrophy Surgical History Surgical History H/O foot surgery Amputation right great toe History of throat surgery Family History Family History Mother Family history of diabetes mellitus in first degree relative Diabetes mellitus Hypertension Heart disease Cerebrovascular accident Father Alcoholism Sibling Alcoholism Diabetes mellitus Hypertension Heart disease Cerebrovascular accident Other Family history of lung cancer Social History Social History Social History: The patient is and has 1 child. The patient is a former smoker. He denies any alcohol marijuana or illicit drugs. 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 Code status full code Smoking status: Former smoker Alcohol intake: never Substance use: never Substance use type: does not use Lack of Transportation: No Lack of Food: Never True Current Housing: I Have Housing Concerned About Future Housing: No Difficulty Paying Gas/Electric Bills: No Difficulty Paying for Meds: No Currently Unemployed: No Education: High School Diploma/GED Difficulty w/ Childcare or Family Care: No Gender identity (if verbalized by the patient): Male Spiritual care concerns: No Exam Narrative: General appearance: Well-developed, well-nourished Skin: 3+ edema lower extremity bilaterally up to the groin area, weeping clear fluid. Head: Normocephalic, nontraumatic Eyes: Clear conjunctiva ENT: Oropharynx normal, ears normal, nose normal, tracheostomy tube in place Neck: Supple, nontender Chest and respiratory: Airway patent, no respiratory distress, no accessory muscle use Heart: Regular rate/rhythm Abdomen: Soft, nontender, no organomegaly, quiet bowel sounds , feeding tube in place Vascular: Normal peripheral pulses, normal capillary refill. Musculoskeletal: Normal range of motion, nontender back Neurologic: Alert and oriented ?3, GRAIN GRADER is normal as tested, no gross motor deficit
[2023-05-07 20:10] LABS: Anisocytosis 2+ (NORMAL)
[2023-05-07] MEDS: ONDANSETRON INJ 4 MG/2 ML VIAL IV PUSH (21:33)
[2023-05-07] MEDS: MORPHINE SULFATE (*CRX) 4 MG/ML INJ IV PUSH (21:34)
[2023-05-07] MEDS: FAMOTIDINE 20 MG/2 ML VIAL 40 MG IV PUSH (21:34)
[2023-05-07] MEDS: FUROSEMIDE INJ 100 MG/10 ML VIAL 80 MG IV PUSH (21:34)
--- NOTE | 2023-05-07 22:17 | PC.NURSE ---
Pt called out in pain from laying in bed. This RN helped transfer pt into recliner. No further requests at this time.
[2023-05-08] VITALS (34 sets, daily range): BP systolic 104–153; BP diastolic 71–90; PULSE 61–94; RESP 10–20; TEMP 36.6; O2SAT 91–100; BMI 37.8
[2023-05-08 01:21] LABS: Troponin I 0.348 ng/mL (0.000-0.034)
[2023-05-08 02:52] LABS: Glucose Point of Care 79 mg/dl (65-105)
[2023-05-08 03:25] LABS: Troponin I 0.305 ng/mL (0.000-0.034)
[2023-05-08 05:12] LABS: Anion Gap 12 mmol/L (8-16); Blood Urea Nitrogen 97 mg/dL (9-20); Calcium 8.2 mg/dL (8.4-10.2); Carbon Dioxide 19 mmol/L (22-30); Chloride 109 mmol/L (98-107); Estimated Glomerular Filt Rate 8; Glucose 83 mg/dL (65-110); Potassium 5.6 mmol/L (3.4-5.0); Sodium 140 mmol/L (137-145)
--- NOTE | 2023-05-08 07:09 | PC.NURSE ---
Report given to VASQUEZ Barnhart at this time.
[2023-05-08] MEDS: FAMOTIDINE 20 MG/2 ML VIAL 40 MG IV PUSH ×2 (08:59→20:22)
--- NOTE | 2023-05-08 09:14 | PC.NURSE ---
Spoke w/ about diet order for pt. DR sabillon'd pt diet.
--- NOTE | 2023-05-08 13:48 | PM.IMHP ---
H&P: HPI History of Present Illness Date/Time: 05/08/23 13:48 Chief Complaint: Patient brought to the ER for evaluation of progressive swelling all over his body as well as rash in lower extremities and scrotum Narrative: He is a very unfortunate 58 years old white male with chronic multiple medical issues started post tracheostomy and feeding tube placement, who was brought to the ER for evaluation by her daughter for worsening swelling all over his body which is going on for a couple of months, as well as rash in his lower extremities and his scrotum area. He was evaluated workup in the ER and found to be swollen with fluid retention. BNP was elevated at more than 30,000. Patient given 1 dose of IV Lasix 80 mg in the ER with good diuresis. He also had mildly elevated cardiac enzymes done which are flat. He denies any chest pain. Blood cultures were ordered and patient started on IV Rocephin. We going to admit the patient for medical management, close cardiopulmonary monitoring, Cardiology and Neurology evaluations and further workup. Review of Systems Review of Systems: 14 systems were reviewed with pertinent positives and negatives per HPI. Except as documented in the HPI/progress notes, all other systems were reviewed and are negative. All systems reviewed & are unremarkable except as noted in HPI and below PMFSH Past Medical History Medical History Amputated toe CRF (chronic renal failure) Diabetes Erythropoietin deficiency anemia Generalized edema HTN (hypertension) with goal to be determined Hyperlipidemia Hypertension Hypothyroidism Renal osteodystrophy Surgical History Surgical History H/O foot surgery Amputation right great toe History of throat surgery Family History Family History Mother Family history of diabetes mellitus in first degree relative Diabetes mellitus Hypertension Heart disease Cerebrovascular accident Father Alcoholism Sibling Alcoholism Diabetes mellitus Hypertension Heart disease Cerebrovascular accident Other Family history of lung cancer Social History Social History Social History: The patient is and has 1 child. The patient is a former smoker. He denies any alcohol marijuana or illicit drugs. 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 Code status full code Smoking status: Former smoker Alcohol intake: never Substance use: never Substance use type: does not use Lack of Transportation: No Lack of Food: Never True Current Housing: I Have Housing Concerned About Future Housing: No Difficulty Paying Gas/Electric Bills: No Difficulty Paying for Meds: No Currently Unemployed: No Education: High School Diploma/GED Difficulty w/ Childcare or Family Care: No Gender identity (if verbalized by the patient): Male Spiritual care concerns: No Meds Home Medications and Allergies Home Medications Medication Instructions Recorded Confirmed Type amlodipine 10 mg tablet 10 mg PO DAILY 10/09/20 05/08/23 History calcitriol 0.25 mcg capsule 0.25 mcg PO DAILY 10/09/20 05/08/23 History carvedilol 12.5 mg tablet 12.5 mg PO Q12H 10/09/20 05/08/23 History levothyroxine 112 mcg capsule 112 mcg PO DAILY 10/09/20 05/08/23 History losartan 100 mg tablet 100 mg PO DAILY 10/09/20 05/08/23 History pioglitazone 30 mg tablet 30 mg PO DAILY 10/09/20 05/08/23 History glimepiride 2 mg tablet 2 mg PO DAILY 05/08/23 05/08/23 History pravastatin 40 mg tablet 40 mg PO DAILY 05/08/23 05/08/23 History Allergies Allergy/AdvReac Type Severity Reaction Status Date / Time No Known Allergies Allergy Unknown Verified 05/07/23 19:30 Vital Signs Vital Signs - 24 hr 05/07/23 19:19 05/07/23 19:32 12
[2023-05-08 14:57] LABS: Anion Gap 9 mmol/L (8-16); Blood Urea Nitrogen 95 mg/dL (9-20); Calcium 8.2 mg/dL (8.4-10.2); Carbon Dioxide 20 mmol/L (22-30); Chloride 110 mmol/L (98-107); Estimated Glomerular Filt Rate 9; Glucose 80 mg/dL (65-110); Potassium 5.6 mmol/L (3.4-5.0); Sodium 139 mmol/L (137-145)
[2023-05-08 15:12] LABS: Troponin I 0.224 ng/mL (0.000-0.034)
--- NOTE | 2023-05-08 15:54 | PM.CNCAR ---
Assessment and Plan Assessment and plan (1) Elevated troponin: Code(s): R79.89 - Other specified abnormal findings of blood chemistry Status: Acute Assessment and Plan: Troponin levels are chronically elevated. This is most likely because of his chronic kidney disease as well as CHF. Denies chest pain. EKG does not have any acute STTW changes. Cannot exclude underlying coronary disease but his clinical presentation is not consistent with ACS. At this time I am not going to recommend any ischemic workup. (2) Congestive heart failure: Code(s): I50.9 - Heart failure, unspecified Status: Acute Assessment and Plan: He has known RV dysfunction and mild diastolic dysfunction. Agree with aggressive IV diuresis. Will check an echo. (3) PIERCE (acute kidney injury): Code(s): N17.9 - Acute kidney failure, unspecified Status: Acute Assessment and Plan: He has CKD but perhaps is progressing toward ESRD which is contributing to his volume overload. Nephrology has been consulted. (4) Generalized edema: Code(s): R60.1 - Generalized edema Status: Acute Assessment and Plan: Secondary to #2 and #3. Plan Cardiology will follow along on an as needed basis please call with any questions. History of Present Illness History of Present Illness Consult date/time: 05/08/23 15:54 Requesting physician: Ted Faulkner MD Consult reason: Other (elevated troponin) Reason For Visit: PIERCE, Pulmonary Edema, Tracheostomy Care Patient Narrative: Bubba Saxena is a 58 year old male with chronic kidney disease, hypertension, diabetes, and peripheral vascular disease. He also has a tracheostomy and feeding tube. He is hospitalized because of anasarca. He states he has been swelling progressively for two weeks. He also reports abdominal distension worsening over that period of time. He has developed weeping and open wounds on his bilateral calves. He also has significant scrotal edema. He denies a history of any cardiac problems. Denies chest pain, shortness of breath, orthopnea, palpitations. Cardiology is being asked to see him because of elevated troponin levels. Review of Systems Review of Systems: All systems reviewed & are unremarkable except as noted in HPI and below PMFSH Past Medical History Medical History Amputated toe CRF (chronic renal failure) Diabetes Erythropoietin deficiency anemia Generalized edema HTN (hypertension) with goal to be determined Hyperlipidemia Hypertension Hypothyroidism Renal osteodystrophy Surgical History Surgical History H/O foot surgery Amputation right great toe History of throat surgery Family History Family History Mother Family history of diabetes mellitus in first degree relative Diabetes mellitus Hypertension Heart disease Cerebrovascular accident Father Alcoholism Sibling Alcoholism Diabetes mellitus Hypertension Heart disease Cerebrovascular accident Other Family history of lung cancer Social History Social History Social History: The patient is and has 1 child. The patient is a former smoker. He denies any alcohol marijuana or illicit drugs. 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 Code status full code Smoking packs per day: 2 Smoking cigarettes per day: 40.0 Years smoked: 35 Smoking pack-years: 70.00 Smoking status: Former smoker Tobacco type: cigarettes Second hand tobacco smoke exposure: No Alcohol intake: never Substance use: never Substance use type: does not use Lack of Transportation: No Lack of Food: Never True Current Housing: I Have Housing Concerned About Future Housing:
--- NOTE | 2023-05-08 16:06 | ADMGEN ---
This patient, Bubba Saxena, was admitted to IMU Room 231-01. Patient/family oriented to hospital policies and general routines including ID bracelet, bed and alarms, visiting hours, pain management, procedures, bathroom and other care routines, personal items, smoking policy, room service/diet, and visiting hours. Information on how to activate the Rapid Response Team has been discussed. Patient/Family are encouraged to report perceived risks to care and to ask questions if they do not understand what they are told or what they should do.
[2023-05-08 16:44] LABS: Glucose Point of Care 76 mg/dl (65-105)
--- NOTE | 2023-05-08 17:58 | PM.CNNEP ---
Assessment and Plan Assessment and plan (1) PIERCE (acute kidney injury): Code(s): N17.9 - Acute kidney failure, unspecified Status: Acute Assessment and Plan: Acute kidney injury: Probably decompensated with grade 1 diastolic heart failure acute on chronic. Could be progressive renal failure heading towards end-stage renal disease Chronic kidney disease stage 4, may well have progressed with end-stage renal disease, however time will tell Underlying cause of the chronic kidney disease diabetes mellitus with nephropathy Probable benign essential hypertensive renal disease renal failure History of secondary hyperparathyroidism for which he was on calcitriol therapy, maintaining calcitriol in hospital [facility] probably combination of worsened renal function, pioglitazone, cor pulmonale with right ventricular systolic dysfunction Plan: -IV diuresis -stop Actos as this can cause a profound fluid retention is having -probable contribution by right ventricular systolic dysfunction -monitor intake and output, daily weights, if there is not improvement or worsening of renal function dialysis will need to be contemplated, monitor intake and output. -would recommend changing the glimepiride to something shorter acting for sugar control. Glimepiride has a half-life that is long and can potentially lead to hypoglycemia due to the advanced nature of the renal failure. -also stop the losartan in light of the acute worsening of the renal function to help improve renal perfusion. -monitor electrolytes, BUN and creatinine. -follow (2) Chronic kidney disease (CKD): Qualifiers: Chronic kidney disease stage: stage 4 (severe) Qualified Code(s): N18.4 - Chronic kidney disease, stage 4 (severe) Code(s): N18.9 - Chronic kidney disease, unspecified Status: Acute Assessment and Plan: Patient has stage 4 chronic kidney disease at baseline History of Present Illness Reason for Consult Consult date: 05/08/23 Reason for consult: chronic renal failure Chief Complaint Chief complaint: PIERCE, Pulmonary Edema, Tracheostomy Care Patient History of Present Illness Narrative: 58 yo WM, known to me, has CKD stage 4 at baseline. Baseline creatinine higher 2's. Now creatinine higher. He was admitted here in May 2022 when creatinine was in the 4's. He has underlying diabetes mellitus, hypertension, chronic kidney disease stage IV. In he has complications of hyperkalemia and secondary hyperparathyroidism. He is admitted with bilateral lower extremity swelling, rash, and has been initiated on diuretics. Chest x-ray shows mild pulmonary edema. He denies ingestion of any nonsteroidals. He has not reported any difficulties with voiding prior to coming in. There is no increase in shortness of breath that he is noticing. He does have a tracheostomy in place requiring frequent suctioning. He denies waking up short of breath at night. He has gained fluid weight. He has an underlying history of chronic obstructive pulmonary disease. In 2015 he had throat cancer with radiation and chemotherapy and tracheostomy and tracheostomy removal in the past. On November 20, 2022 he had a narrow field total laryngectomy due to laryngeal dysfunction. 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 At [place] in October basic metabolic panel showed a creatinine of 2.53 mg/dL. The bilateral lower extremity swelling seems to have been progressive in nature. His serum albumin is normal. There is no report of cirrhosis of the liver. Echocardiogram from May of 2022 shows ejection fraction of 50-55%, grade 1 diastolic heart failure, the patient has diminished right ventricular systolic function with right ventricular dilatation. Review of Systems Review of Systems: As per history of presenting illness, rest negative [facility] Past Medical History Medical History (Reviewed 05/08/23 @ 16:40 by Corrie
[2023-05-08 19:56] LABS: Glucose Point of Care 82 mg/dl (65-105)
[2023-05-08] MEDS: carvediloL 12.5 MG TABLET PO (20:22)
[2023-05-09] VITALS (23 sets, daily range): BP systolic 72–124; BP diastolic 57–74; PULSE 70–93; RESP 18–20; TEMP 36–36.8; O2SAT 87–98
--- NOTE | 2023-05-09 | ECHO_ITS ---
Patient Info Name: Bubba Saxena Age: 58 years : 1965 Gender: Male Ht: 69 in Wt: 259 lbs BSA: 2.44 m2 HR: 78 bpm BP: 94 / 57 mmHg Heart Rhythm: Sinus Rhythm Technical Quality: Fair Exam Date: 05/09/2023 10:40 AM Exam Location: Echo Lab Patient Status: Inpatient Admit Date: 05/07/2023 Staff Ordering Physician: Leti Salcedo Cross Cut Sawyer: Melvi Faulkner RDCS Attending Provider: Ted Faulkner MD Referring Physician: Denisse MOONEY; Exam Type: CA echo doppler color flow Study Info Indications - edema Complete two-dimensional, color flow and Doppler transthoracic echocardiogram is performed. Summary 1. Complete two-dimensional, color flow and Doppler transthoracic echocardiogram is performed. 2. Left ventricular hypertrophy with normal size and overall preserved systolic function. 3. Septal flattening consistent with elevated RV pressure. 4. Severe right ventricular enlargement with systolic dysfunction. 5. Severe right atrial enlarged. 6. Mild tricuspid regurgitation velocity analysis suggests moderate pulmonary hypertension. Left Ventricle Left ventricular chamber dimension is normal. Left ventricular systolic function is normal, estimated at 50-55%. There is moderate concentric increased left ventricular wall thickness. The left ventricular diastolic function is grade I diastolic dysfunction. Right Ventricle Right ventricular chamber dimension is severely enlarged. Right ventricular systolic function is reduced. Left Atria Left atrial chamber dimension is normal. Right Atria Right atrial chamber dimension is moderately enlarged. Aortic Valve The aortic valve is normal. Pulmonic Valve The pulmonic valve is not well visualized. Mitral Valve The mitral valve has normal leaflets. Tricuspid Valve The tricuspid valve leaflets are normal. There is mild tricuspid valve regurgitation. Moderate pulmonary hypertension, estimated pulmonary arterial systolic pressure is 45 mmHg. Pericardium/Pleural The pericardium appears normal. Aorta The aortic root size at the sinus of Valsalva is normal. Left Ventricular Outflow Tract Name Value Normal LVOT 2D LVOT Diameter 2.3 cm LVOT Doppler LVOT Peak Gradient 1 mmHg LVOT Mean Gradient 1 mmHg LVOT VTI 9 cm LVOT VTI/AV VTI Ratio 0.5 LVOT Stroke Volume 35 ml LVOT CO 2.6 l/min LVOT CI 1.1 l/min/m2 Pulmonic Valve Name Value Normal RVOT Doppler RVOT Peak Gradient 1 mmHg PV Doppler PV Peak Gradient 3 mmHg Mitral Valve Name Value Normal
[2023-05-09 04:55] LABS: Basophils Percent Auto 0.2 % (0.2-1.2); Eosinophils Percent Auto 0.2 % (0-4.4); Hematocrit 33.9 % (42.0-52.0); Hemoglobin 9.7 g/dL (14.0-18.0); Immature Granulocyte Absolute 0.02 K/mm3 (0.00-0.031); Immature Granulocyte Percent A 0.4 % (0-0.5); Lymphocytes Absolute Auto 0.34 K/mm3 (0.9-3.2); Lymphocytes Percent Auto 6.4 % (18.3-44.2); Mean Corpuscular HGB Conc 28.6 g/dl (32-36); Mean Corpuscular Hemoglobin 27.8 pg (26-34); Mean Corpuscular Volume 97.1 fl (80-100); Mean Platelet Volume 11.5 fl (7.4-10.4); Monocytes Absolute Auto 0.3 K/mm3 (0.1-0.6); Neutrophils Absolute Auto 4.7 K/mm3 (1.3-6.7); Neutrophils Percent Auto 86.8 % (45.5-73.1); Nucleated Red Blood Cells Perc 0.4 % (0.0-0.2); Platelet Count Result 175 k/mm3 (150-375); Red Blood Count 3.49 M/mm3 (4.6-6.20); Red Cell Distribution Width 16.4 % (11.5-14.5); White Blood Count 5.4 K/mm3 (4.5-10.0)
[2023-05-09 05:08] LABS: Anion Gap 7 mmol/L (8-16); Blood Urea Nitrogen 96 mg/dL (9-20); Calcium 7.7 mg/dL (8.4-10.2); Carbon Dioxide 20 mmol/L (22-30); Chloride 109 mmol/L (98-107); Estimated CRCL calculation 14 ml/min; Estimated Glomerular Filt Rate 9; Glucose 74 mg/dL (65-110); Phosphorus 9.6 mg/dL (2.5-4.5); Potassium 5.6 mmol/L (3.4-5.0); Sodium 136 mmol/L (137-145)
[2023-05-09 05:42] LABS: Anisocytosis 1+ (NORMAL); Hypochromasia 1+ (NORMAL); Platelet Estimate Adequate (Adequate); Schistocytes None Seen (NORMAL)
[2023-05-09] MEDS: LEVOTHYROXINE SODIUM 112 MCG TABLET PO (06:24)
--- NOTE | 2023-05-09 10:13 | PM.IMPN ---
Progress Note: A&P Assessment and Plan (1) Elevated troponin: Code(s): R79.89 - Other specified abnormal findings of blood chemistry Status: Acute (2) Cellulitis of lower leg: Code(s): L03.119 - Cellulitis of unspecified part of limb Status: Acute (3) PIERCE (acute kidney injury): Code(s): N17.9 - Acute kidney failure, unspecified Status: Acute (4) Pulmonary edema: Code(s): J81.1 - Chronic pulmonary edema Status: Acute (5) Tracheostomy care: Code(s): Z43.0 - Encounter for attention to tracheostomy Status: Acute (6) Uses feeding tube: Code(s): Z97.8 - Presence of other specified devices Status: Acute (7) Fluid overload: Code(s): E87.70 - Fluid overload, unspecified Status: Acute (8) Chronic kidney disease (CKD): Qualifiers: Chronic kidney disease stage: stage 4 (severe) Qualified Code(s): N18.4 - Chronic kidney disease, stage 4 (severe) Code(s): N18.9 - Chronic kidney disease, unspecified Status: Acute Plan 58M w/ 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 He was given amoxicillin 1 week prior for b/l LE cellulitis. Admitted on 05/08 # anasarca - ddx include worsening CHF, advancing CKD to ESRD, pioglitazone use, amlodipine use - d/c pioglitazone and amlodipine - improved with therapy below # heart failure, unspecified - 1 year prior had grade 1 diastolic dysfunction. repeat echo today - cont lasix 80mg IV BID, daily weights w/ strict I/O's with lemus catheter - other med mgmt after echo # elevated troponin - downtrending. cardiology consulted. no further recommendations as of now, no ACS but underlying cardiac disease cannot be ruled out. troponin elevated likely 2/2 to CHF and CKD. # PIERCE on CKD stage 4 - admitted with sCR of 7. on 12/8 only slightly improved but making urine. nephrology consulted. will allow them to dictate further mgmt, consider dialysis if needed. this is likely worsened acutely in some part to decompensated heart failure. - on calcitriol. has hyperphosphatemia as well, likely needs phosphate binder if doesn't resolve w/ improvement of PIERCE # NIDDM - check HBA1c - pioglitazone stopped. glimepiride stopped 2/2 decreased GFR. will decide what to put him on pending hba1c # LE cellulitis - ceftriaxone BID. this may cover pneumonia hiding behind pulmonary edema as well # anemia - monitor, further workup to follow # hx of HTN - low normal today, probably because of lasix, albumin is wnl so we will institute midodrine for support. d/c coreg as well. # hyperkalemia - related to PIERCE on CKD - check EKG, give insulin 5 units only and dextrose followed by Arlen. lasix has not helped as PIERCE is only barely improved. FEN: saline lock IV, diabetic diet GI prophylaxis: pepcid DVT prophylaxis: lovenox Lines: PIV Code Status: Full Code Dispo: stable, guarded More than 35 minutes spent on chart review, patient interaction and assessment and plan. Subjective Date/time seen: 05/09/23 10:13 Interval history: NAOE. pt's only complaint is that of pain at the b/l lower legs which is improved since his swelling has gone down. we had a discussion about his conditions and the next steps. he acknowledged and had no further questions. Review of Systems Review of Systems: All systems reviewed & are unremarkable except as noted in HPI and below Exam Const: General: comfortable and no acute distress Other: A&Ox3 Eyes: Pupils: Equal, round and reactive pupils present Resp: Effort & Inspection: normal respiratory effort Cardio: Rate: regular rate Rhythm: regular rhythm He
[2023-05-09] MEDS: calcitrioL 0.25 MCG CAPSULE PO (10:23)
[2023-05-09] MEDS: PRAVASTATIN SODIUM 20 MG TABLET 40 MG PO (10:23)
[2023-05-09] MEDS: FAMOTIDINE 20 MG/2 ML VIAL 40 MG IV PUSH ×2 (10:25→21:13)
--- NOTE | 2023-05-09 10:31 | ECG_ITS ---
Measurements Intervals [place] Rate: 72 P: 2 FL: 200 QRS: 94 QRSD: 118 T: -12 QT: 386 QTc: 422 Interpretive Statements SINUS RHYTHM RIGHTWARD AXIS POSSIBLE ANTERIOR MYOCARDIAL INFARCTION OF INDETERMINATE AGE T-WAVE ABNORMALITY, CONSIDER ISCHEMIA Electronically Signed On 05-10-2023 13:07:07 CLIN NURSE by Kirit Knox M.D.
[2023-05-09] MEDS: ENOXAPARIN 30 MG/0.3 ML SYRINGE SUB-Q (11:16)
[2023-05-09] MEDS: SODIUM ZIRCONIUM CYCLOSILICATE 5 GM POWD.PACK PO (11:16)
[2023-05-09] MEDS: INSULIN HUMAN REGULAR (*BKC) 100 UNITS/ML IV PUSH ×2 (11:16→21:16)
[2023-05-09] MEDS: MIDODRINE HCL 2.5 MG TABLET PO ×3 (11:17→17:10)
[2023-05-09] MEDS: DEXTROSE 50% 25 GM/50 ML SYRINGE IV PUSH ×2 (11:17→21:15)
[2023-05-09 14:59] LABS: Anion Gap 10 mmol/L (8-16); Blood Urea Nitrogen 100 mg/dL (9-20); Carbon Dioxide 19 mmol/L (22-30); Chloride 107 mmol/L (98-107); Estimated CRCL calculation 13 ml/min; Estimated Glomerular Filt Rate 8; Glucose 74 mg/dL (65-110); Potassium 5.9 mmol/L (3.4-5.0); Sodium 136 mmol/L (137-145)
--- NOTE | 2023-05-09 15:23 | PM.PNNEP ---
Progress Note: A&P Assessment and Plan (1) PIERCE (acute kidney injury): Code(s): N17.9 - Acute kidney failure, unspecified Status: Acute Assessment and Plan: Acute kidney injury:? Probably decompensated with grade 1 diastolic heart failure acute on chronic.? Could be progressive renal failure heading towards end-stage renal disease Chronic kidney disease stage 4, may well have progressed with end-stage renal disease, however time will tell Underlying cause of the chronic kidney disease diabetes mellitus with nephropathy Probable benign essential hypertensive renal disease renal failure History of secondary hyperparathyroidism for which he was on calcitriol therapy, maintaining calcitriol in hospital [facility] probably combination of worsened renal function, pioglitazone, cor pulmonale with right ventricular systolic dysfunction Plan: -IV diuresis -stop Actos as this can cause a profound fluid retention is having -probable contribution by right ventricular systolic dysfunction -monitor intake and output, daily weights, if there is not improvement or worsening of renal function dialysis will need to be contemplated, monitor intake and output. -would recommend changing the glimepiride to something shorter acting for sugar control.? Glimepiride has a half-life that is long and can potentially lead to hypoglycemia due to the advanced nature of the renal failure. -also stop the losartan in light of the acute worsening of the renal function to help improve renal perfusion. -monitor electrolytes, BUN and creatinine.? -follow 05/09/23: -echocardiogram shows and decreased right ventricular systolic function -hypertension is probably from intravascular depletion from diuresis and also 3rd spacing of fluid -will hold diuretics -antihypertensives have been discontinued -will be difficult to remove fluid patient essentially, blood we headed towards dialysis. Prognosis guarded. Follow -hyperphosphatemia: Add calcium carbonate, as binder and to increase calcium -hypocalcemia: As above -Lokelma for hyperkalemia -can give small volume fluid to see if BP stabilizes and may help with maintaining urine output. - in any case we will need to consider hemodialysis under the current circumstances -stop magnesium containing antacids -US renal in light of PIERCE and possible significant ascites, hopefully no increased intraabdominal pressure causing renal failure -surgical consult for placement of tunneled CVC -dialysis failing all this -d/w Dr. Martinez - Subjective Date/time seen: 05/09/23 15:23 Interval history: Feels OK SOB same Tracheostomy collar Dehydration managing her today Yesterday's urine output was good, decreased today Echocardiogram does not show pericardial effusion, however with decreased right ventricular systolic function Review of Systems Review of Systems: No uremic features Constitutional: Comments: No uremic features Exam Narrative: Well developed, well nourished, sitting upright, tracheostomy in place, tracheostomy collar in use, the VDR to see, no pallor of the conjunctiva, no icterus, moist oral mucosa, no cyanosis, needs regular rate rhythm, no gallop, diminished breath sounds, no rales obese, soft nontender abdomen, abdominal wall edema present, edematous legs, presence of anasarca, alert, no tremors Objective Data Vital Signs Vital Signs: Vital Signs - 24 hr 05/08/23 16:06 05/08/23 16:33 05/08/23 16:49 Temperature 36.6 C Pulse Rate 87 80 Respiratory Rate 16 Blood Pressure 135/88 Pulse Oximetry 91 91 91 Oxygen Delivery High Flow Therapy with Tr High Flow Therapy with Tr Oxygen Flow Rate 30 30 Fraction of Inspired Oxygen 50 50 05/08/23 17:23 05/08/23 18:00 05/08/23 20:22 Temperature Pulse Rate 83 81 85 Respiratory Rate Blood Pressure Pulse Oximetry Oxygen Delivery Oxygen Flow Rate Fraction of Inspired Oxygen 05/08/23 20:00 05/08/23 1
--- NOTE | 2023-05-09 15:26 | PM.PNNEP ---
Progress Note: A&P Assessment and Plan (1) PIERCE (acute kidney injury): Code(s): N17.9 - Acute kidney failure, unspecified Status: Acute Subjective Date/time seen: 05/09/23 15:26 Exam Narrative: Well-developed well-nourished, sitting upright, tracheostomy in place, TBI to see, no pallor of the conjunctiva, no icterus, moist oral mucosa, JVD heart to see, regular rate rhythm, no gallop, no rub, diminished breath sounds, no rhonchi or wheeze appreciated, soft mildly distended abdomen, abdominal wall edema, has lower extremity edema, alert and awake, no tremors Objective Data Vital Signs Vital Signs: Vital Signs - 24 hr 05/08/23 16:06 05/08/23 16:33 05/08/23 16:49 Temperature 36.6 C Pulse Rate 87 80 Respiratory Rate 16 Blood Pressure 135/88 Pulse Oximetry 91 91 91 Oxygen Delivery High Flow Therapy with Tr High Flow Therapy with Tr Oxygen Flow Rate 30 30 Fraction of Inspired Oxygen 50 50 05/08/23 17:23 05/08/23 18:00 05/08/23 20:22 Temperature Pulse Rate 83 81 85 Respiratory Rate Blood Pressure Pulse Oximetry Oxygen Delivery Oxygen Flow Rate Fraction of Inspired Oxygen 05/08/23 20:00 05/08/23 19:45 05/08/23 20:00 Temperature 36.6 C Pulse Rate 85 94 83 Respiratory Rate 18 18 Blood Pressure 120/71 Pulse Oximetry 92 92 Oxygen Delivery High Flow Therapy with Tr Oxygen Flow Rate 30 Fraction of Inspired Oxygen 50 05/08/23 22:00 05/09/23 00:00 05/09/23 00:00 Temperature 36.6 C Pulse Rate 84 93 78 Respiratory Rate 20 Blood Pressure 124/74 Pulse Oximetry 94 Oxygen Delivery Oxygen Flow Rate Fraction of Inspired Oxygen 05/09/23 00:00 05/09/23 02:17 05/09/23 04:00 Temperature Pulse Rate 78 80 80 Respiratory Rate 20 20 Blood Pressure Pulse Oximetry 94 94 Oxygen Delivery High Flow Therapy with Tr High Flow Therapy with Tr Oxygen Flow Rate 30 30 Fraction of Inspired Oxygen 55 55 05/09/23 04:00 05/09/23 03:00 05/09/23 06:18 Temperature 36.6 C Pulse Rate 79 80 78 Respiratory Rate 20 Blood Pressure 94/57 L Pulse Oximetry 91 Oxygen Delivery Oxygen Flow Rate Fraction of Inspired Oxygen 05/09/23 08:00 05/09/23 09:05 05/09/23 10:30 Temperature 36.8 C Pulse Rate 78 75 Respiratory Rate 18 Blood Pressure 82/59 L 90/60 L Pulse Oximetry 88 L 92 Oxygen Delivery High Flow Therapy with Tr Oxygen Flow Rate 40 Fraction of Inspired Oxygen 50 05/09/23 12:30 05/09/23 08:00 Temperature Pulse Rate 75 Respiratory Rate 18 Blood Pressure 72/60 L Pulse Oximetry 92 Oxygen Delivery High Flow Therapy with Tr Oxygen Flow Rate 40 Fraction of Inspired Oxygen 50 Intake/Output Intake/Output: Intake & Output 05/06/23 05/07/23 05/08/23 05/09/23 23:59 23:59 23:59 23:59 Intake Total 250 1340 Output Total 2300 400 Balance -2050 940 Meds/Results Medications: Active Medications Generic Name Dose Route Start Last Admin Trade Name Freq PRN Reason Stop Dose Admin Al Hydrox/Mg Hydrox/Simethicone 30 ml 05/08/23 14:19 Mag Hydrox/Al Hydrox/Simeth 30 Ml Udc PO QID PRN Dyspepsia Calcitriol 0.25 mcg 05/09/23 09:00 05/09/23 10:23 Calcitriol 0.25 Mcg Capsule PO 0.25 mcg DAILY ISELA Administration Dextrose 12.5 gm 05/08/23 14:21 Dextrose 50% 25 Gm/50 Ml Syringe IV PUSH PRN PRN Hypoglycemia Protocol Enoxaparin Sodium 30 mg 05/09/23 10:15 05/09/23 11:16 Enoxaparin 30 Mg/0.3 Ml Syringe SUB-Q 30 mg DAILY ISELA Administration Famotidine 40 mg 05/08/23 21:00 05/09/23 10:25 Famotidine 20 Mg/2 Ml Vial IV PUSH 40 mg Q12HR ISELA Administration Furosemide 80 mg 05/09/23 09:00 Furosemide Inj 100 Mg/10 Ml Vial IV PUSH BID ISELA Glucagon 1 mg 05/08/23 14:21 Glucagon For Inj 1 Mg Vial IM PRN PRN Hypoglycemia Protocol Glucose 15 gm 05/08/23 14:21 Glucose Oral Gel 15 Gm Of G
[2023-05-09] MEDS: SODIUM CHLORIDE 0.9% IV 250 ML 100 ML IV CONT (16:51)
[2023-05-09 17:07] LABS: Glucose Point of Care 95 mg/dl (65-105)
[2023-05-09] MEDS: CALCIUM CARBONATE (TUMS) 500 MG (200 MG ELEMENTAL) 400 MG PO (17:09)
[2023-05-09 19:17] LABS: Influenza A QL RT-PCR Negative (Negative); Influenza B QL RT-PCR Negative (Negative); RSV RNA, RT-PCR Negative (Negative); SARS-CoV-2 RNA PCR Negative (Negative)
[2023-05-09 19:19] LABS: Anion Gap 11 mmol/L (8-16); Blood Urea Nitrogen 102 mg/dL (9-20); Carbon Dioxide 17 mmol/L (22-30); Chloride 107 mmol/L (98-107); Estimated CRCL calculation 13 ml/min; Estimated Glomerular Filt Rate 8; Glucose 95 mg/dL (65-110); Potassium 5.9 mmol/L (3.4-5.0); Sodium 135 mmol/L (137-145)
[2023-05-09 21:03] LABS: Glucose Point of Care 91 mg/dl (65-105)
[2023-05-09 22:05] LABS: Glucose Point of Care 112 mg/dl (65-105)
[2023-05-09 22:40] LABS: Glucose Point of Care 99 mg/dl (65-105)
[2023-05-09 22:54] LABS: Anion Gap 11 mmol/L (8-16); Blood Urea Nitrogen 101 mg/dL (9-20); Calcium 7.9 mg/dL (8.4-10.2); Carbon Dioxide 17 mmol/L (22-30); Chloride 107 mmol/L (98-107); Estimated CRCL calculation 13 ml/min; Estimated Glomerular Filt Rate 8; Glucose 91 mg/dL (65-110); Potassium 5.6 mmol/L (3.4-5.0); Sodium 135 mmol/L (137-145)
[2023-05-09 23:18] LABS: Glucose Point of Care 76 mg/dl (65-105)
[2023-05-10] VITALS (22 sets, daily range): BP systolic 72–135; BP diastolic 50–80; PULSE 63–81; RESP 18–22; TEMP 36.2–36.7; O2SAT 88–99
[2023-05-10 00:28] LABS: Glucose Point of Care 74 mg/dl (65-105)
[2023-05-10] MEDS: WATER FOR IRRIGATION, STERILE 1,000 ML BOTTLE 1000 ML (01:06)
[2023-05-10] MEDS: SODIUM ZIRCONIUM CYCLOSILICATE 5 GM POWD.PACK PO ×4 (01:34→22:23)
[2023-05-10] MEDS: DEXTROSE 50% 25 GM/50 ML SYRINGE IV PUSH (01:34)
[2023-05-10 02:22] LABS: Glucose Point of Care 141 mg/dl (65-105)
[2023-05-10] MEDS: ACETAMINOPHEN 500 MG TABLET 1000 MG PO ×2 (03:07→09:11)
[2023-05-10 04:14] LABS: Glucose Point of Care 124 mg/dl (65-105)
[2023-05-10 05:04] LABS: Basophils Percent Auto 0.4 % (0.2-1.2); Eosinophils Percent Auto 0.6 % (0-4.4); Hematocrit 36.4 % (42.0-52.0); Hemoglobin 10.4 g/dL (14.0-18.0); Immature Granulocyte Absolute 0.02 K/mm3 (0.00-0.031); Immature Granulocyte Percent A 0.4 % (0-0.5); Lymphocytes Absolute Auto 0.49 K/mm3 (0.9-3.2); Lymphocytes Percent Auto 9.6 % (18.3-44.2); Mean Corpuscular HGB Conc 28.6 g/dl (32-36); Mean Corpuscular Hemoglobin 27.9 pg (26-34); Mean Corpuscular Volume 97.6 fl (80-100); Monocytes Absolute Auto 0.3 K/mm3 (0.1-0.6); Monocytes Percent Auto 6.4 % (2.6-8.5); Neutrophils Absolute Auto 4.2 K/mm3 (1.3-6.7); Neutrophils Percent Auto 82.6 % (45.5-73.1); Nucleated Red Blood Cells Perc 0.8 % (0.0-0.2); Platelet Count Result 204 k/mm3 (150-375); Red Blood Count 3.73 M/mm3 (4.6-6.20); Red Cell Distribution Width 16.4 % (11.5-14.5); White Blood Count 5.1 K/mm3 (4.5-10.0)
[2023-05-10 05:24] LABS: Alanine Aminotransferase 74 U/L (6-50); Alkaline Phosphatase 55 U/L (38-126); Anion Gap 10 mmol/L (8-16); Aspartate Amino Transferase 75 U/L (17-59); Bilirubin,Total 0.6 mg/dL (0.2-1.3); Blood Urea Nitrogen 101 mg/dL (9-20); Calcium 7.7 mg/dL (8.4-10.2); Carbon Dioxide 17 mmol/L (22-30); Chloride 108 mmol/L (98-107); Estimated CRCL calculation 13 ml/min; Estimated Glomerular Filt Rate 8; Glucose 104 mg/dL (65-110); Magnesium 2.1 mg/dL (1.6-2.3); Phosphorus 10.3 mg/dL (2.5-4.5); Potassium 5.6 mmol/L (3.4-5.0); Sodium 135 mmol/L (137-145)
[2023-05-10] MEDS: LEVOTHYROXINE SODIUM 112 MCG TABLET PO (06:47)
[2023-05-10 08:05] LABS: Glucose Point of Care 98 mg/dl (65-105)
[2023-05-10 08:41] LABS: Hepatitis B Surface Antigen Negative (Negative)
[2023-05-10 08:58] LABS: Hepatitis B Surface Anti Res Negative
[2023-05-10] MEDS: CALCIUM CARBONATE (TUMS) 500 MG (200 MG ELEMENTAL) 400 MG PO ×3 (09:10→15:17)
[2023-05-10] MEDS: PRAVASTATIN SODIUM 20 MG TABLET 40 MG PO (09:13)
[2023-05-10] MEDS: MIDODRINE HCL 2.5 MG TABLET PO ×3 (09:13→15:17)
[2023-05-10] MEDS: FAMOTIDINE 20 MG/2 ML VIAL 40 MG IV PUSH ×2 (09:14→22:23)
[2023-05-10] MEDS: calcitrioL 0.25 MCG CAPSULE PO (09:14)
[2023-05-10] MEDS: ENOXAPARIN 30 MG/0.3 ML SYRINGE SUB-Q (09:14)
--- NOTE | 2023-05-10 11:14 | PM.IMPN ---
Progress Note: A&P Assessment and Plan (1) Elevated troponin: Code(s): R79.89 - Other specified abnormal findings of blood chemistry Status: Acute (2) Cellulitis of lower leg: Code(s): L03.119 - Cellulitis of unspecified part of limb Status: Acute (3) PIERCE (acute kidney injury): Code(s): N17.9 - Acute kidney failure, unspecified Status: Acute (4) Pulmonary edema: Code(s): J81.1 - Chronic pulmonary edema Status: Acute (5) Tracheostomy care: Code(s): Z43.0 - Encounter for attention to tracheostomy Status: Acute (6) History of partial laryngectomy: Code(s): Z90.02 - Acquired absence of larynx Status: Acute (7) Aspiration into respiratory tract: Code(s): T17.908A - Unspecified foreign body in respiratory tract, part unspecified causing other injury, initial encounter Status: Acute (8) Fluid overload: Code(s): E87.70 - Fluid overload, unspecified Status: Acute Plan 58M w/ 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 hyperparathyroidism, presented with a few weeks of worsening swelling of lower extremities and scrotal swelling. He was given amoxicillin 1 week prior for b/l LE cellulitis. Admitted on 05/08 # anasarca - ddx include worsening CHF, advancing CKD to ESRD, pioglitazone use, amlodipine use - d/c pioglitazone and amlodipine - improved with therapy below, however still present, ctm. # sepsis with shock - responsive to discontinuation of antihypertensives and midodrine. blood pressure now remains stable at low end. ctm. - f/u blood cultures, treat b/l LE cellulitis and aspiration pneumonia, certainly his right heart failure and anasarca are contributing to this # LE cellulitis, purulent - ceftriaxone BID started on admission. on 05/10 change abx to cefepime and vancomycin given the purulent nature. f/u blood cultures # pneumonia - has hx of recurrent pneumonia and given his tracheostomy will cover with cefepime and vanc and azithromycin starting 05/10 - f/u sputum cultures and urinary antigens # decompensated heart failure w/ preserved EF - 1 year prior had grade 1 diastolic dysfunction. repeat echo this admission on 05/10 w/ stable grade 1 diastolic dysfunction and severe RV enlargement and systolic dysfunction. - cont daily weights and strict I/O's, has lemus. unfortunately cannot diurese as his blood pressure continues to be low. continue to monitor fluid status while treating sepsis and acute renal failure. hopefully will improve since pioglitazone has been stopped. # elevated troponin - downtrending. cardiology consulted. no further recommendations on this issue as of now, no ACS but underlying cardiac disease cannot be ruled out. troponin elevated likely 2/2 to CHF and CKD. # PIERCE on CKD stage 4 - admitted with sCR of 7. has not improved. nephrology consulted. planning for tunneled dialysis cath on friday with surgery then initiate hemodialysis. discussion held with patient about risks and benefits to which he understands and wants to speak with his on the final decision. - on calcitriol. added calcium carbonate. cont to monitor hypocalcemia and hyperphosphatemia w/ recs from nephrology # hyperkalemia - related to PIERCE on CKD - EKG w/o hyperacute T waves. insulin x2 and lokelma x1 without improvement. difficult to treat given acute renal failure. start scheduled lokelma 5mg po TID and recheck BMP twice per day. # NIDDM - check HBA1c - pioglitazone stopped. glimepiride stopped 2/2 decreased GFR. will decide what to put him on pending hba1c and hospital course # anemia - monitor, further workup to follow # hx of HTN - low normal today, probably combination of lasix, anasarca, ARF, sepsis. midodrine started 05/09, BP stab
[2023-05-10 12:23] LABS: Hemoglobin A1C 5.1 % (<5.7)
--- NOTE | 2023-05-10 12:32 | PM.CNGS ---
Assessment and Plan Assessment and plan (1) CRF (chronic renal failure): Code(s): N18.9 - Chronic kidney disease, unspecified Status: Acute Assessment and Plan: Patient has worsening renal failure and is not responding to diuresis. He has also developing electrolyte imbalances. Nephrology has been following patient and is recommending tunneled central venous catheter placement for dialysis. Plans will be made for placement of tunneled dialysis catheter on Friday in the operating room. If more urgent hemodialysis access is needed, could consider bedside placement of temporary dialysis catheter 1st. I have discussed the procedure with the patient and he is agreeable to proceeding. Will make arrangements for tunneled dialysis catheter on Friday. (2) Congestive heart failure: Code(s): I50.9 - Heart failure, unspecified Status: Acute (3) Pulmonary edema: Code(s): J81.1 - Chronic pulmonary edema Status: Acute (4) Cellulitis of lower leg: Code(s): L03.119 - Cellulitis of unspecified part of limb Status: Acute (5) History of partial laryngectomy: Code(s): Z90.02 - Acquired absence of larynx Status: Acute History of Present Illness Consult details Consult date: 05/10/23 Reason for consult: other (Tunneled dialysis catheter placement) Requesting physician: Kelly Morrow MD Narrative: This is a 58-year-old man who I am asked to see for placement of a tunneled dialysis catheter. He was admitted for worsening congestive heart failure and renal failure. He has bilateral lower extremity cellulitis and severe weeping peripheral edema. Patient has a tracheostomy tube and is unable to speak. He nods yes or no to questions. The patient states that he has not been on dialysis before. The chart is reviewed for any other significant prior history. He does have a history of laryngeal surgery for cancer. He has a chronic tracheostomy tube in place. Review of Systems Review of Systems: All systems reviewed & are unremarkable except as noted in HPI and below Constitutional: Constitutional: Denies chills and Denies fever(s) Cardiovascular: Cardiovascular: Denies chest pain and Reports dyspnea Respiratory: Respiratory: Reports dyspnea Gastrointestinal: Gastrointestinal: Denies abdominal pain and Denies change in bowel habits PMFSH Past Medical History Medical History Amputated toe CRF (chronic renal failure) Diabetes Erythropoietin deficiency anemia Generalized edema HTN (hypertension) with goal to be determined Hyperlipidemia Hypertension Hypothyroidism Renal osteodystrophy Surgical History Surgical History H/O foot surgery Amputation right great toe History of throat surgery Family History Family History Mother Family history of diabetes mellitus in first degree relative Diabetes mellitus Hypertension Heart disease Cerebrovascular accident Father Alcoholism Sibling Alcoholism Diabetes mellitus Hypertension Heart disease Cerebrovascular accident Other Family history of lung cancer Social History Social History Social History: The patient is and has 1 child. The patient is a former smoker. He denies any alcohol marijuana or illicit drugs. 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 Code status full code Smoking packs per day: 2 Smoking cigarettes per day: 40.0 Years smoked: 35 Smoking pack-years: 70.00 Smoking status: Former smoker Tobacco type: cigarettes Second hand tobacco smoke exposure: No Alcohol intake: never Substance use: never Substance use type: does not use Lack of Transportation: No Lack of Food: Never True Curre
[2023-05-10 12:39] LABS: Glucose Point of Care 108 mg/dl (65-105)
[2023-05-10] MEDS: CALCIUM CARBONATE (OSCAL) 500 MG TABLET PO ×2 (13:19→15:17)
[2023-05-10] MEDS: VANCOMYCIN 2,000 MG/NS 500 ML 2,000 MG/500 ML BAG 250 MG IVPB (13:20)
[2023-05-10] MEDS: AZITHROMYCIN 500 MG/NS 250 ML 500 MG/250 ML BAG 250 MG IVPB (15:03)
[2023-05-10] MEDS: CEFEPIME 1 GM/NS 50 ML 1 GM/50 ML BAG IVPB (15:04)
[2023-05-10 16:20] LABS: Glucose Point of Care 99 mg/dl (65-105)
[2023-05-10 17:42] LABS: Alveolar/Arterial O2 Gradient 425.4 mmHg; Base Excess ABG -14.3 mEq/l (+/-2.0); Fractional Inspired Oxygen 80 %; HCO3 ABG 17.5 mEq/l (22.0-26.0); Oxygen Content ABG 14.8 %vol (16.0-22.0); Oxyhemoglobin 89.2 % THb (90.0-100.0); PO2 ABG 69.4 mmHg (80.0-100.0); PO2 FiO2 Ratio Arterial Blood 0.87 %; Total Hemoglobin 11.8 g/dL (12.0-18.0)
[2023-05-10] MEDS: ALBUMIN HUMAN 25% 25 GM/100 ML 100 ML IVPB (17:43)
[2023-05-10] MEDS: MIDODRINE HCL 10 MG TABLET PO (17:43)
[2023-05-10 17:45] LABS: pH ABG 7.003 (7.350-7.450)
[2023-05-10 17:48] LABS: Oxygen Saturation ABG 82.7 % (95.0-100.0); Site Drawn RIGHT BRACHIAL
[2023-05-10 17:53] LABS: Device HIGH FLOW THERAPY
[2023-05-10] MEDS: SODIUM BICARBONATE 8.4% 50 MEQ/50 ML SYRINGE 100 MEQ IV PUSH (19:31)
[2023-05-10] MEDS: FUROSEMIDE INJ 100 MG/10 ML VIAL 80 MG IV PUSH (19:31)
--- NOTE | 2023-05-10 20:02 | ED.PROCEDURE ---
Procedures Intubation Intubation Date: 05/10/23 A pre-procedural Time-Out was completed immediately before starting the procedure and confirmed: Patient Identification, Site, Procedure, Patient Position and the Availability of Requisite Equipment: Yes Sedative: none ET tube size: 6 Tube secured depth (cm): 10 Tube secured location: other (neck) Tube placement confirmation: equal breath sounds bilaterally Patient tolerated procedure: well Intubation complications: none Additional comments: I was called to the ICU for a patient in respiratory distress with a total laryngectomy and stoma. Patient had total laryngectomy with a stoma but was not able oxygenating well. 6-0 tube was passed without difficulty and the balloon was inflated. Initially the tube was mainstemmed and once we backed out to 10 cm at the neck the patient quickly returned to 100% saturation. Position was confirmed with chest x-ray.
[2023-05-10] MEDS: ALBUTEROL SULFATE NEB 2.5 MG/3 ML INH INHALATION (20:10)
[2023-05-10] MEDS: IPRATROPIUM BR 0.02% INH SOLN 0.5 MG/2.5 ML VIAL INHALATION (20:10)
[2023-05-10 21:01] LABS: Anion Gap 10 mmol/L (8-16); Blood Urea Nitrogen 103 mg/dL (9-20); Calcium 7.7 mg/dL (8.4-10.2); Carbon Dioxide 20 mmol/L (22-30); Chloride 106 mmol/L (98-107); Estimated CRCL calculation 11 ml/min; Estimated Glomerular Filt Rate 7; Glucose 93 mg/dL (65-110); Potassium 5.7 mmol/L (3.4-5.0); Sodium 136 mmol/L (137-145)
[2023-05-10 21:18] LABS: Lactic Acid Reflex 0.6 mmol/L (0.7-2.0)
[2023-05-10 21:33] LABS: Alveolar/Arterial O2 Gradient 591.2 mmHg; Base Excess ABG -10.9 mEq/l (+/-2.0); Fractional Inspired Oxygen 100 %; HCO3 ABG 18.1 mEq/l (22.0-26.0); Oxygen Content ABG 14.8 %vol (16.0-22.0); Oxyhemoglobin 91.1 % THb (90.0-100.0); PCO2 ABG 54.5 mmHg (35.0-45.0); PO2 ABG 67.3 mmHg (80.0-100.0); PO2 FiO2 Ratio Arterial Blood 0.67 %; Total Hemoglobin 11.5 g/dL (12.0-18.0)
[2023-05-10 21:35] LABS: pH ABG 7.139 (7.350-7.450)
[2023-05-10 21:37] LABS: Device VENTILATOR; Modified Allen's Test Pass; Oxygen Saturation ABG 86.9 % (95.0-100.0); Site Drawn LEFT RADIAL
[2023-05-10 21:38] LABS: Arterial Blood Gas PEEP 10 cmH2O; Arterial Blood Gas Tidal Volume 400 ml; Arterial Blood Gas Vent Mode CMV; Arterial Blood Gas Ventilator rate 20 /MIN
[2023-05-10 22:39] LABS: MRSA (PCR) NOT DETECTED (NOT DETECTE)
[2023-05-11] VITALS (35 sets, daily range): BP systolic 97–152; BP diastolic 67–98; PULSE 53–82; RESP 16–25; TEMP 36.5–37.4; O2SAT 90–97
[2023-05-11] MEDS: ALBUMIN HUMAN 25% 25 GM/100 ML 100 ML IVPB ×3 (01:16→12:28)
[2023-05-11 01:29] LABS: Glucose Point of Care 81 mg/dl (65-105)
[2023-05-11] MEDS: ALBUTEROL SULFATE NEB 2.5 MG/3 ML INH INHALATION ×4 (02:12→19:59)
[2023-05-11] MEDS: IPRATROPIUM BR 0.02% INH SOLN 0.5 MG/2.5 ML VIAL INHALATION ×4 (02:12→19:59)
[2023-05-11 04:54] LABS: Basophils Percent Auto 0.6 % (0.2-1.2); Eosinophils Absolute Auto 0.1 K/mm3 (0-0.3); Eosinophils Percent Auto 1.8 % (0-4.4); Hemoglobin 8.7 g/dL (14.0-18.0); Immature Granulocyte Absolute 0.01 K/mm3 (0.00-0.031); Immature Granulocyte Percent A 0.3 % (0-0.5); Lymphocytes Absolute Auto 0.46 K/mm3 (0.9-3.2); Lymphocytes Percent Auto 13.5 % (18.3-44.2); Mean Corpuscular Hemoglobin 27.4 pg (26-34); Mean Corpuscular Volume 94.6 fl (80-100); Mean Platelet Volume 11.2 fl (7.4-10.4); Monocytes Absolute Auto 0.3 K/mm3 (0.1-0.6); Monocytes Percent Auto 8.5 % (2.6-8.5); Neutrophils Absolute Auto 2.6 K/mm3 (1.3-6.7); Neutrophils Percent Auto 75.3 % (45.5-73.1); Platelet Count Result 155 k/mm3 (150-375); Red Blood Count 3.17 M/mm3 (4.6-6.20); Red Cell Distribution Width 16.6 % (11.5-14.5); White Blood Count 3.4 K/mm3 (4.5-10.0)
[2023-05-11 05:05] LABS: Platelet Estimate Adequate (Adequate)
[2023-05-11 05:06] LABS: Large Platelets Present
[2023-05-11 05:07] LABS: Anisocytosis 1+ (NORMAL); Hypochromasia 1+ (NORMAL); INR 1.3; Lactic Acid Reflex 0.8 mmol/L (0.7-2.0); Poikilocytosis 1+ (NORMAL); Prothrombin Time 16.7 Seconds (11.1-14.7)
[2023-05-11 05:08] LABS: Ovalocytes 1+ (NORMAL); Schistocytes Rare (NORMAL)
[2023-05-11 05:12] LABS: Alanine Aminotransferase 66 U/L (6-50); Albumin Level 2.9 g/dL (3.5-5.1); Alkaline Phosphatase 50 U/L (38-126); Anion Gap 10 mmol/L (8-16); Aspartate Amino Transferase 75 U/L (17-59); Bilirubin,Total 0.7 mg/dL (0.2-1.3); Blood Urea Nitrogen 106 mg/dL (9-20); Calcium 7.7 mg/dL (8.4-10.2); Carbon Dioxide 18 mmol/L (22-30); Chloride 107 mmol/L (98-107); Estimated CRCL calculation 11 ml/min; Estimated Glomerular Filt Rate 7; Glucose 65 mg/dL (65-110); Potassium 5.3 mmol/L (3.4-5.0); Sodium 135 mmol/L (137-145)
[2023-05-11 05:13] LABS: Alveolar/Arterial O2 Gradient 583.1 mmHg; Base Excess ABG -9.1 mEq/l (+/-2.0); Fractional Inspired Oxygen 100 %; HCO3 ABG 17.2 mEq/l (22.0-26.0); Oxygen Content ABG 14.3 %vol (16.0-22.0); Oxygen Saturation ABG 95.9 % (95.0-100.0); Oxyhemoglobin 94.9 % THb (90.0-100.0); PCO2 ABG 38.8 mmHg (35.0-45.0); PO2 ABG 91.1 mmHg (80.0-100.0); PO2 FiO2 Ratio Arterial Blood 0.91 %; Total Hemoglobin 10.6 g/dL (12.0-18.0)
[2023-05-11 05:24] LABS: Procalcitonin 0.5 ng/mL
[2023-05-11 06:11] LABS: Device VENTILATOR; Modified Allen's Test Pass; Site Drawn LEFT RADIAL; pH ABG 7.265 (7.350-7.450)
[2023-05-11 06:12] LABS: Arterial Blood Gas PEEP 10 cmH2O; Arterial Blood Gas Tidal Volume 450 ml; Arterial Blood Gas Vent Mode CMV; Arterial Blood Gas Ventilator rate 22 /MIN
[2023-05-11] MEDS: FAMOTIDINE 20 MG/2 ML VIAL 40 MG IV PUSH ×2 (08:00→21:33)
--- NOTE | 2023-05-11 09:37 | PM.PNGS ---
Progress Note: A&P Assessment and Plan (1) Chronic kidney disease (CKD): Qualifiers: Chronic kidney disease stage: stage 4 (severe) Qualified Code(s): N18.4 - Chronic kidney disease, stage 4 (severe) Code(s): N18.9 - Chronic kidney disease, unspecified Status: Acute Assessment and Plan: Respiratory status worsened yesterday and now in ICU. In face of respiratory status and cellulitis with multiple antibiotics, it would not be safe to proceed with tunneled dialysis catheter at this time. Will plan to place Stephen temporary dialysis catheter at bedside today to allow starting dialysis. Can consider tunneled dialysis catheter once infection clear and more stable. (2) PIERCE (acute kidney injury): Code(s): N17.9 - Acute kidney failure, unspecified Status: Acute (3) Congestive heart failure: Code(s): I50.9 - Heart failure, unspecified Status: Acute (4) Pulmonary edema: Code(s): J81.1 - Chronic pulmonary edema Status: Acute (5) Cellulitis of lower leg: Code(s): L03.119 - Cellulitis of unspecified part of limb Status: Acute Subjective Subjective Date/Time Seen: 05/11/23 09:37 Interval history: Worsened respiratory failure overnight. Now intubated and in ICU. Exam Resp: Effort & Inspection: normal respiratory effort Auscultation: diminished lung sounds bilateral in the lower lung elise and other (Coarse breath sounds bilaterally) Objective Data Vital Signs Vital Signs: Vital Signs - 24 hr 05/10/23 09:56 05/10/23 11:44 05/10/23 14:59 Temperature 36.7 C Pulse Rate 73 75 66 Respiratory Rate 18 Blood Pressure 83/53 L Pulse Oximetry 92 96 93 Oxygen Delivery High Flow Therapy with Tr High Flow Therapy with Tr Oxygen Flow Rate 50 50 Fraction of Inspired Oxygen 70 70 05/10/23 16:00 05/10/23 16:28 05/10/23 12:00 Temperature 36.7 C Pulse Rate 75 63 Respiratory Rate 18 Blood Pressure 72/50 L Pulse Oximetry 88 L 92 90 Oxygen Delivery High Flow Therapy with Tr High Flow Therapy with Tr Oxygen Flow Rate 60 60 Fraction of Inspired Oxygen 80 80 05/10/23 16:00 05/10/23 12:00 05/10/23 14:00 Temperature Pulse Rate 74 80 Respiratory Rate Blood Pressure Pulse Oximetry 90 Oxygen Delivery High Flow Therapy with Tr Oxygen Flow Rate 60 Fraction of Inspired Oxygen 80 05/10/23 16:00 05/10/23 18:00 05/10/23 10:00 Temperature Pulse Rate 80 78 74 Respiratory Rate Blood Pressure Pulse Oximetry Oxygen Delivery Oxygen Flow Rate Fraction of Inspired Oxygen 05/10/23 20:00 05/10/23 20:10 05/10/23 19:30 Temperature Pulse Rate 76 79 79 Respiratory Rate 22 H 18 Blood Pressure 108/79 Pulse Oximetry 96 91 Oxygen Delivery Mechanical Ventilation Oxygen Flow Rate Fraction of Inspired Oxygen 05/10/23 20:00 05/10/23 22:00 05/10/23 23:12 Temperature 36.7 C Pulse Rate 79 70 77 Respiratory Rate 19 22 H Blood Pressure 135/80 112/70 Pulse Oximetry 93 99 94 Oxygen Delivery Mechanical Ventilation Oxygen Flow Rate Fraction of Inspired Oxygen 05/11/23 02:09 05/11/23 02:12 05/10/23 20:00 Temperature Pulse Rate 71 71 Respiratory Rate 22 H Blood Pressure Pulse Oximetry 94 Oxygen Delivery Mechanical Ventilation Mechanical Ventilation Oxygen Flow Rate Fraction of Inspired Oxygen 100 05/10/23 20:00 05/10/23 22:00 05/11/23 00:00 Temperature Pulse Rate 78 70 Respiratory Rate Blood Pressure Pulse Oximetry Oxygen Delivery Mechanical Ventilation Oxygen Flow Rate Fraction of Inspired Oxygen 100 05/11/23 00:00 05/11/23 02:00 05/11/23 04:00 Temperature 36.7 C 36.9 C Pulse Rate 75 71 72 Respiratory Rate 22 H 22 H 22 H Blood Pressure 124/96 H 111/78 122/91 H Pulse Oximetry 97 94 94 Oxygen Delivery Oxygen Flow Rate Fraction of Inspired Oxygen 05/11/23 05:15 05/11/23 00:00 05/11/23 02
[2023-05-11] MEDS: SODIUM ZIRCONIUM CYCLOSILICATE 10 GM POWD.PACK PO (10:00)
--- NOTE | 2023-05-11 11:23 | W.PM.PROC2 ---
Procedure Note - Detailed Date of Procedure 05/11/23 Pre-op Diagnosis PIERCE, Pulmonary Edema, CHF Post-op Diagnosis Same Procedure Performed Right IJ Nolan dialysis catheter placement using ultrasound guidance Surgeon Ian Em DO Anesthesia Local (1% Lidocaine) Indications Acute on chronic renal failure, congestive heart failure Findings Ultrasound guidance was used to identify the right internal jugular vein. This was identified as a compressible vessel just lateral to the pulsatile carotid artery. The 18 gauge introducer needle was advanced under ultrasound guidance directly into the lumen of the right internal jugular vein. Dark nonpulsatile blood was aspirated. The guidewire was then advanced followed by the dilators and dialysis catheter. Chest x-ray is pending to confirm placement. Description of Procedure Procedure, risks, benefits, and alternatives were discussed with the patient. Written consent was obtained and placed in chart prior to procedure. Patient was placed supine in hospital bed and placed in slight Trendelenburg position. Time-out was done to confirm patient and procedure. The right neck and chest area was prepped and draped in sterile fashion using chlorhexidine prep. SonoSite ultrasound was used to identify the right internal jugular vein. 1% lidocaine was infiltrated directly over this area. An 18 gauge introducer needle was advanced under ultrasound guidance directly into the right internal jugular vein. Dark nonpulsatile blood was aspirated. A 0.035 in guidewire was then advanced through the needle. The guidewire advanced smoothly. The needle was then withdrawn leaving the guidewire in place. A small sharita incision was made at the insertion site using an 11 blade scalpel. The blue dilators were then advanced over the guidewire to dilate the vessel. The 12 Sammarinese triple lumen 16 cm dialysis catheter was then advanced over the guidewire until it was in place. The guidewire was removed. All 3 lumens were then aspirated and flushed with sterile saline. All 3 lumens function with ease. Caps were placed over the lumens. Glue was placed at the insertion site and the catheter was secured in place using 3 0 nylon simple interrupted sutures. A Tegaderm dressing was then applied over top. The patient was then sat up in bed and chest x-ray was ordered to confirm placement. Implants 12 Sammarinese triple-lumen 16 cm dialysis catheter Estimated Blood Loss 5 Urine Output 1,300 Complications No immediate complications Condition Stable Disposition No change [facility] Billing Surgery - Charge Forward: Surgery Billing
[2023-05-11] MEDS: FUROSEMIDE INJ 100 MG/10 ML VIAL 80 MG IV PUSH ×2 (12:01→18:00)
[2023-05-11] MEDS: PRAVASTATIN SODIUM 20 MG TABLET 40 MG PO (12:02)
[2023-05-11 12:03] LABS: Glucose Point of Care 76 mg/dl (65-105)
[2023-05-11] MEDS: AZITHROMYCIN 500 MG/NS 250 ML 500 MG/250 ML BAG 250 MG IVPB (12:28)
--- NOTE | 2023-05-11 12:30 | WPDCNINT ---
Assessment and Plan Assessment and plan (1) Cellulitis of lower leg: Code(s): L03.119 - Cellulitis of unspecified part of limb Status: Acute Assessment and Plan: See above (2) Chronic kidney disease (CKD): Qualifiers: Chronic kidney disease stage: stage 4 (severe) Qualified Code(s): N18.4 - Chronic kidney disease, stage 4 (severe) Code(s): N18.9 - Chronic kidney disease, unspecified Status: Acute Assessment and Plan: Patient has chronic kidney disease stage 4 which is likely progressed to end-stage renal disease Patient seen by Nephrology Plan to start hemodialysis today Dialysis catheter placed by general surgery He is receiving IV Lasix for hypovolemia He is getting phosphate binders and calcium will discontinue Lokelma post initiation of hemodialysis (3) Generalized edema: Code(s): R60.1 - Generalized edema Status: Acute Assessment and Plan: Anasarca secondary to renal failure, right heart failure, medications Patient is on diuretics but ineffective due to renal failure. Plan to initiate hemodialysis today and remove fluid Echo shows LV hypertrophy right ventricular enlargement with systolic dysfunction and volume overload (4) Congestive heart failure: Code(s): I50.9 - Heart failure, unspecified Status: Acute Assessment and Plan: See above (5) Sepsis: Code(s): A41.9 - Sepsis, unspecified organism Status: Acute Assessment and Plan: Secondary to cellulitis. WBC normal and patient afebrile The could be component of pneumonia on the chest x-ray although it looks overall mainly fluid overload Patient is already on broad-spectrum antibiotics azithromycin, vancomycin and cefepime Hemodynamically stable and not requiring any vasopressors (6) Acute respiratory failure: Code(s): J96.00 - Acute respiratory failure, unspecified whether with hypoxia or hypercapnia Status: Acute Assessment and Plan: Patient has history of partial laryngectomy and has a stoma. Will this hospitalization patient has been gradually developing worsening hypoxia and yesterday ABG showed hypercarbia and respiratory acidosis. Patient was transferred to ICU Patient was intubated through the stoma ER physician placed on mechanical ventilation. Vent settings ABG and chest x-ray reviewed this morning reviewed this morning Hypercarbia has resolved and mostly patient now has metabolic acidosis Continue mechanical ventilation Plan to initiate hemodialysis to remove fluid Plan DVT prophylaxis -Lovenox Stress ulcer prophylaxis -Pepcid Nutrition -npo Code Status - Full Code Case discussed with general surgery and internal medicine physician Total Critical Care Time - 30 minutes Due to a high probability of clinically significant, life threatening deterioration, the patient required my highest level of preparedness to intervene emergently and I personally spent this critical care time directly and personally managing the patient. This critical care time included obtaining a history; examining the patient; pulse oximetry; ordering and review of studies; arranging urgent treatment with development of a management plan; evaluation of patient's response to treatment; frequent reassessment; and discussions with other providers. It was exclusive of separately billable procedures and treating other patients and teaching time. Please see Assessment and Plan section and the rest of the note for further information on patient assessment and treatment Mat Puncher Consult Note Consult date: 05/11/23 Reason for consult: Respiratory failure, renal failure HPI: Bubba aSxena is a 58 year old male with past medical history of chronic kidney disease stage 4, partial laryngectomy and tracheostomy, status post PEG tube placement was admitted on 03/08 with worsening edema of lower extremity and scrotum. His BNP at that time was 30,000 and more. He had pulmonary
[2023-05-11] MEDS: DEXTROSE 50% 25 GM/50 ML SYRINGE IV PUSH (12:42)
[2023-05-11 12:47] LABS: Vancomycin Random 13.6 ug/mL (10-20)
[2023-05-11 13:05] LABS: Glucose Point of Care 69 mg/dl (65-105)
[2023-05-11 13:05] LABS: Glucose Point of Care 95 mg/dl (65-105)
--- NOTE | 2023-05-11 13:14 | PM.PNNEP ---
Progress Note: A&P Assessment and Plan (1) Chronic kidney disease, stage 5: Code(s): N18.5 - Chronic kidney disease, stage 5 Status: Acute Assessment and Plan: ?Assessment and Plan: Acute kidney injury:? Probably decompensated with grade 1 diastolic heart failure acute on chronic.? Could be progressive renal failure heading towards end-stage renal disease Chronic kidney disease stage 5, may well have progressed with end-stage renal disease. repeat labs tomorrow. Underlying cause of the chronic kidney disease diabetes mellitus with nephropathy Probable benign essential hypertensive renal disease renal failure History of secondary hyperparathyroidism for which he was on calcitriol therapy, maintaining calcitriol in hospital. check phosphorus Anasarca probably combination of worsened renal function, pioglitazone, cor pulmonale with right ventricular systolic dysfunctionPlan: -IV diuresis -off actos -probable contribution by right ventricular systolic dysfunction -off losartan -monitor electrolytes, BUN and creatinine.? -follow Subjective Date/time seen: 05/10/23 14:00 Interval history: patient is lying in bed comfortably. Exam Narrative: WDWN in NAD skin no rash head ncat lungs clear cor reg no rub abd BS+ nontender and soft ext 1+ bilateral edema. Objective Data Vital Signs Vital Signs: Vital Signs - 24 hr 05/10/23 14:59 05/10/23 16:00 05/10/23 16:28 Temperature 98.0 F Pulse Rate 66 75 63 Respiratory Rate 18 Blood Pressure 72/50 L Pulse Oximetry 93 88 L 92 Oxygen Delivery High Flow Therapy with Tr High Flow Therapy with Tr Oxygen Flow Rate 50 60 Fraction of Inspired Oxygen 70 80 05/10/23 16:00 05/10/23 14:00 05/10/23 16:00 Temperature Pulse Rate 80 80 Respiratory Rate Blood Pressure Pulse Oximetry 90 Oxygen Delivery High Flow Therapy with Tr Oxygen Flow Rate 60 Fraction of Inspired Oxygen 80 05/10/23 18:00 05/10/23 20:00 05/10/23 20:10 Temperature Pulse Rate 78 76 79 Respiratory Rate 22 H Blood Pressure Pulse Oximetry 96 Oxygen Delivery Mechanical Ventilation Oxygen Flow Rate Fraction of Inspired Oxygen 05/10/23 19:30 05/10/23 20:00 05/10/23 22:00 Temperature 98.0 F Pulse Rate 79 79 70 Respiratory Rate 18 19 22 H Blood Pressure 108/79 135/80 112/70 Pulse Oximetry 91 93 99 Oxygen Delivery Oxygen Flow Rate Fraction of Inspired Oxygen 05/10/23 23:12 05/11/23 02:09 05/11/23 02:12 Temperature Pulse Rate 77 71 71 Respiratory Rate 22 H Blood Pressure Pulse Oximetry 94 94 Oxygen Delivery Mechanical Ventilation Mechanical Ventilation Oxygen Flow Rate Fraction of Inspired Oxygen 05/10/23 20:00 05/10/23 20:00 05/10/23 22:00 Temperature Pulse Rate 78 70 Respiratory Rate Blood Pressure Pulse Oximetry Oxygen Delivery Mechanical Ventilation Oxygen Flow Rate Fraction of Inspired Oxygen 100 05/11/23 00:00 05/11/23 00:00 05/11/23 02:00 Temperature 98.1 F Pulse Rate 75 71 Respiratory Rate 22 H 22 H Blood Pressure 124/96 H 111/78 Pulse Oximetry 97 94 Oxygen Delivery Mechanical Ventilation Oxygen Flow Rate Fraction of Inspired Oxygen 100 05/11/23 04:00 05/11/23 05:15 05/11/23 00:00 Temperature 98.4 F Pulse Rate 72 78 72 Respiratory Rate 22 H Blood Pressure 122/91 H Pulse Oximetry 94 94 Oxygen Delivery Mechanical Ventilation Oxygen Flow Rate Fraction of Inspired Oxygen 05/11/23 02:00 05/11/23 04:00 05/11/23 04:00 Temperature Pulse Rate 71 72 Respiratory Rate Blood Pressure Pulse Oximetry Oxygen Delivery Mechanical Ventilation Oxygen Flow Rate Fraction of Inspired Oxygen 100 05/11/23 06:00 05/11/23 06:00 05/11/23 07:00 Temperature Pulse Rate 78 78 78 Respiratory Rate 20 Blood Pressure 136/92 H Pulse Oximetry 90 93 Oxygen Delivery Mechanical Ventilation Oxy
--- NOTE | 2023-05-11 13:17 | PM.PNNEP ---
Progress Note: A&P Assessment and Plan (1) Chronic kidney disease, stage 5: Code(s): N18.5 - Chronic kidney disease, stage 5 Status: Acute Assessment and Plan: The patient has stage 5 chronic kidney disease. He has volume overload and now respiratory failure. His BUN and creatinine are elevated. It is like likely that he is going to get better because if we try diuretics to get rid of the fluid his BUN and creatinine will worsen and we of course cannot try fluids to improve the BUN and creatinine. I discussed with the patient at length. He has already had a dialysis catheter placed and understands that he is going to need dialysis. He has talked with Dr. Davis about this in the past and realizes that the time for dialysis has come. We discussed the risks benefits alternatives and process of dialysis and he understands and is willing to proceed. (2) HTN (hypertension) with goal to be determined: Code(s): I10 - Essential (primary) hypertension Status: Acute Assessment and Plan: bp is doing well (3) Erythropoietin deficiency anemia: Code(s): D63.1 - Anemia in chronic kidney disease Status: Acute Assessment and Plan: Hb 8.7 will give epo with dialysis (4) Fluid overload: Code(s): E87.70 - Fluid overload, unspecified Status: Acute Assessment and Plan: remove fluid with dialysis (5) Diabetes: Code(s): E11.9 - Type 2 diabetes mellitus without complications Status: Acute Assessment and Plan: on accuchecks and SSI per hospitalists Subjective Date/time seen: 05/11/23 13:17 Interval history: The patient developed sob and moved to the ICU and now on vent per ETT per trach stoma. Pt is alert. he recognizes me breathing comfortably on the vent Review of Systems Cardiovascular: Cardiovascular: Reports no additional cardiovascular complaints Respiratory: Respiratory: Reports no additional respiratory complaints Gastrointestinal: Gastrointestinal: Reports no additional gastrointestinal complaints Genitourinary: Genitourinary: Reports no additional male genitourinary complaints Exam Narrative: WDWN in NAD skin no rash head ncat neck ETT per tracheal stoma lungs Coarse breath sounds with upper airway noise from the ventilator. cor reg no rub abd BS+ nontender and soft ext no edema. Objective Data Vital Signs Vital Signs: Vital Signs - 24 hr 05/10/23 14:59 05/10/23 16:00 05/10/23 16:28 Temperature 98.0 F Pulse Rate 66 75 63 Respiratory Rate 18 Blood Pressure 72/50 L Pulse Oximetry 93 88 L 92 Oxygen Delivery High Flow Therapy with Tr High Flow Therapy with Tr Oxygen Flow Rate 50 60 Fraction of Inspired Oxygen 70 80 05/10/23 16:00 05/10/23 14:00 05/10/23 16:00 Temperature Pulse Rate 80 80 Respiratory Rate Blood Pressure Pulse Oximetry 90 Oxygen Delivery High Flow Therapy with Tr Oxygen Flow Rate 60 Fraction of Inspired Oxygen 80 05/10/23 18:00 05/10/23 20:00 05/10/23 20:10 Temperature Pulse Rate 78 76 79 Respiratory Rate 22 H Blood Pressure Pulse Oximetry 96 Oxygen Delivery Mechanical Ventilation Oxygen Flow Rate Fraction of Inspired Oxygen 05/10/23 19:30 05/10/23 20:00 05/10/23 22:00 Temperature 98.0 F Pulse Rate 79 79 70 Respiratory Rate 18 19 22 H Blood Pressure 108/79 135/80 112/70 Pulse Oximetry 91 93 99 Oxygen Delivery Oxygen Flow Rate Fraction of Inspired Oxygen 05/10/23 23:12 05/11/23 02:09 05/11/23 02:12 Temperature Pulse Rate 77 71 71 Respiratory Rate 22 H Blood Pressure Pulse Oximetry 94 94 Oxygen Delivery Mechanical Ventilation Mechanical Ventilation Oxygen Flow Rate Fraction of Inspired Oxygen 05/10/23 20:00 05/10/23 20:00 05/10/23 22:00 Temperature Pulse Rate 78 70 Respiratory Rate Blood Pressure Pulse Oximetry Oxygen Delivery Mechanical
[2023-05-11 13:33] LABS: Hepatitis B Surface Anti Res Negative; Hepatitis C Virus Antibody Negative (Negative)
[2023-05-11 14:09] LABS: Hepatitis B Surface Antigen Negative (Negative)
--- NOTE | 2023-05-11 15:47 | PM.IMPN ---
Progress Note: A&P Assessment and Plan (1) Diabetes: Code(s): E11.9 - Type 2 diabetes mellitus without complications Status: Acute (2) Kidney disease: Code(s): N28.9 - Disorder of kidney and ureter, unspecified Status: Acute (3) History of laryngeal cancer: Code(s): Z85.21 - Personal history of malignant neoplasm of larynx Status: Acute (4) CRF (chronic renal failure): Code(s): N18.9 - Chronic kidney disease, unspecified Status: Acute (5) Generalized edema: Code(s): R60.1 - Generalized edema Status: Acute (6) Congestive heart failure: Code(s): I50.9 - Heart failure, unspecified Status: Acute (7) Fluid overload: Code(s): E87.70 - Fluid overload, unspecified Status: Acute (8) Sepsis: Code(s): A41.9 - Sepsis, unspecified organism Status: Acute (9) Chronic kidney disease, stage 5: Code(s): N18.5 - Chronic kidney disease, stage 5 Status: Acute (10) Acute respiratory failure: Code(s): J96.00 - Acute respiratory failure, unspecified whether with hypoxia or hypercapnia Status: Acute Plan 58M w/ 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 hyperparathyroidism, presented with a few weeks of worsening swelling of lower extremities and scrotal swelling. He was given amoxicillin 1 week prior for b/l LE cellulitis. Admitted on 05/08 On 05/10 the patient decompensated, requiring more oxygen, and failing lasix therapy. He was transferred to ICU, intubated through his tracheostomy and vented. On 05/11 he received a R IJ tanmay catheter and dialysis started. # anasarca - ddx include worsening CHF, advancing CKD to ESRD, pioglitazone use, amlodipine use - d/rishi pioglitazone and amlodipine - albumin 2.9 # sepsis with shock - shock resolved. did not require pressor when he arrived to ICU. - treat cellulitis and possible pneumonia. blood cultures NGTD. sputum culture pending # LE cellulitis, purulent - ceftriaxone BID started on admission. on 05/10 change abx to cefepime and vancomycin given the purulent nature and possible pneumonia. # pneumonia - has hx of recurrent pneumonia and given his tracheostomy will cover with cefepime and vanc and azithromycin starting 05/10 - f/u sputum cultures and urinary antigens # acute hypoxic hypercarbic respiratory failure w/ decompensated heart failure w/ preserved EF - 1 year prior had grade 1 diastolic dysfunction. repeat echo this admission on 05/10 w/ stable grade 1 diastolic dysfunction and severe RV enlargement and systolic dysfunction. - 05/10 abg revealed PH 7 and PCO2 70, BICARB 17. mixed respiratory and metabolic acidosis, respiratory acidosis improved greatly after vent placed. metabolic acidosis remains - related to CKD 5 - cont daily weights and strict I/O's, has lemus. on 05/11 dialysis has been initiated - pioglitazone dc'ed. # elevated troponin - downtrended. cardiology consulted. no further recommendations on this issue as of now, no ACS but underlying cardiac disease cannot be ruled out. troponin elevated likely 2/2 to CHF and CKD. # CKD stage 4, now stage 5, requiring temp dialysis - R IJ tanmay placed 05/11 and dialysis started. defer mgmt to nephrology - hold on permanent CVC for now given his sepsis and ARF # NIDDM - check HBA1c - pioglitazone stopped. glimepiride stopped 2/2 decreased GFR. will decide what to put him on pending hba1c and hospital course # anemia - monitor, further workup to follow # hx of HTN - low normal today. transferred to ICU and did not need pressor, improved after albumin given and acidosis improved. continue to monitor. home coreg and amlodipine dc'ed. FEN: saline lock IV GI prophylaxis: pepcid DVT prophylaxis: restart lovenox
[2023-05-11] MEDS: SODIUM CHLORIDE 0.9% IV 1,000 ML 999 ML IV CONT (15:49)
[2023-05-11] MEDS: EPOETIN ALFA-EPBX 10,000 UNITS/ML VIAL 10000 UNITS IV PUSH (15:49)
[2023-05-11 17:26] LABS: Glucose Point of Care 69 mg/dl (65-105)
[2023-05-11] MEDS: CEFEPIME 1 GM/NS 50 ML 1 GM/50 ML BAG IVPB (18:14)
[2023-05-11] MEDS: VANCOMYCIN 1,250 MG/NS 250 ML BAG 166.67 MG IVPB (18:15)
[2023-05-11 18:44] LABS: Glucose Point of Care 120 mg/dl (65-105)
[2023-05-11 21:44] LABS: Glucose Point of Care 77 mg/dl (65-105)
[2023-05-12] VITALS (44 sets, daily range): BP systolic 107–149; BP diastolic 67–100; PULSE 60–88; RESP 14–24; TEMP 36.3–37.2; O2SAT 94–99; BMI 38.3
[2023-05-12 00:11] LABS: Glucose Point of Care 90 mg/dl (65-105)
[2023-05-12] MEDS: ALBUTEROL SULFATE NEB 2.5 MG/3 ML INH INHALATION ×4 (02:05→20:13)
[2023-05-12] MEDS: IPRATROPIUM BR 0.02% INH SOLN 0.5 MG/2.5 ML VIAL INHALATION ×4 (02:05→20:13)
[2023-05-12 05:13] LABS: HCO3 ABG 21.2 mEq/l (22.0-26.0); PCO2 ABG 32.4 mmHg (35.0-45.0); PO2 ABG 95.4 mmHg (80.0-100.0); pH ABG 7.434 (7.350-7.450)
[2023-05-12 05:14] LABS: Base Excess ABG -2.4 mEq/l (+/-2.0); Oxygen Content ABG 14.1 %vol (16.0-22.0); Oxygen Saturation ABG 97.5 % (95.0-100.0); Total Hemoglobin 10.4 g/dL (12.0-18.0)
[2023-05-12 05:15] LABS: Alveolar/Arterial O2 Gradient 95.7 mmHg
[2023-05-12 05:16] LABS: Carboxyhemoglobin 0.1 % THb (0-2.0); Fractional Inspired Oxygen 65 %; Methemoglobin ABG 0.2 %THb (0-1.5); Oxyhemoglobin 95.7 % THb (90.0-100.0); PO2 FiO2 Ratio Arterial Blood 1.47 %
[2023-05-12 05:17] LABS: Arterial Blood Gas Vent Mode CMV; Arterial Blood Gas Ventilator rate 22 /MIN; Device VENTILATOR; Modified Allen's Test Pass; Site Drawn LEFT RADIAL
[2023-05-12 05:18] LABS: Arterial Blood Gas PEEP 10 cmH2O; Arterial Blood Gas Tidal Volume 450 ml
[2023-05-12] MEDS: LEVOTHYROXINE SODIUM 112 MCG TABLET PO (05:48)
[2023-05-12 06:00] LABS: Glucose Point of Care 107 mg/dl (65-105)
[2023-05-12 06:04] LABS: Hematocrit 28.6 % (42.0-52.0); Hemoglobin 8.8 g/dL (14.0-18.0); Mean Corpuscular HGB Conc 30.8 g/dl (32-36); Mean Corpuscular Hemoglobin 27.8 pg (26-34); Mean Corpuscular Volume 90.2 fl (80-100); Mean Platelet Volume 11.8 fl (7.4-10.4); Platelet Count Result 162 k/mm3 (150-375); Red Blood Count 3.17 M/mm3 (4.6-6.20); Red Cell Distribution Width 16.4 % (11.5-14.5); White Blood Count 4.3 K/mm3 (4.5-10.0)
[2023-05-12 06:24] LABS: Alanine Aminotransferase 67 U/L (6-50); Alkaline Phosphatase 53 U/L (38-126); Anion Gap 8 mmol/L (8-16); Aspartate Amino Transferase 67 U/L (17-59); Bilirubin,Total 0.7 mg/dL (0.2-1.3); Blood Urea Nitrogen 82 mg/dL (9-20); Calcium 7.7 mg/dL (8.4-10.2); Carbon Dioxide 24 mmol/L (22-30); Chloride 104 mmol/L (98-107); Estimated CRCL calculation 15 ml/min; Estimated Glomerular Filt Rate 9; Glucose 92 mg/dL (65-110); Magnesium 1.8 mg/dL (1.6-2.3); Potassium 3.7 mmol/L (3.4-5.0); Sodium 136 mmol/L (137-145)
[2023-05-12 06:45] LABS: Vancomycin Random 21.2 ug/mL (10-20)
[2023-05-12] MEDS: FAMOTIDINE 20 MG/2 ML VIAL 40 MG IV PUSH ×2 (08:39→21:27)
[2023-05-12] MEDS: FUROSEMIDE INJ 100 MG/10 ML VIAL 80 MG IV PUSH ×2 (08:39→16:50)
[2023-05-12] MEDS: POTASSIUM CHLORIDE 20 MEQ PACKET (FOR LIQUID) FEED TUBE (08:40)
[2023-05-12] MEDS: PRAVASTATIN SODIUM 20 MG TABLET 40 MG PO (08:40)
[2023-05-12 08:50] LABS: Glucose Point of Care 93 mg/dl (65-105)
--- NOTE | 2023-05-12 10:54 | WPDINTPN ---
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 Will this hospitalization patient has been gradually developing worsening hypoxia and yesterday ABG showed hypercarbia and respiratory acidosis. Patient was transferred to ICU Patient was intubated through the stoma ER physician placed on mechanical ventilation. Vent settings ABG and chest x-ray reviewed Patient is down to 65% FiO2 and 10 of PEEP. Continue wean FiO2 Hypercarbia has resolved and mostly patient now has metabolic acidosis Continue mechanical ventilation He will need additional fluid removal before weaning can be attempted (2) Sepsis: Code(s): A41.9 - Sepsis, unspecified organism Status: Acute Assessment and Plan: Secondary to cellulitis. WBC normal and patient afebrile The could be component of pneumonia on the chest x-ray although it looks overall mainly fluid overload Patient is already on broad-spectrum antibiotics azithromycin, vancomycin and cefepime which will be continued Hemodynamically stable and not requiring any vasopressors (3) Cellulitis of lower leg: Code(s): L03.119 - Cellulitis of unspecified part of limb Status: Acute Assessment and Plan: See above (4) Chronic kidney disease (CKD): Qualifiers: Chronic kidney disease stage: stage 4 (severe) Qualified Code(s): N18.4 - Chronic kidney disease, stage 4 (severe) Code(s): N18.9 - Chronic kidney disease, unspecified Status: Acute Assessment and Plan: Patient has chronic kidney disease stage 4 which is likely progressed to end-stage renal disease Patient is being seen by Nephrology Patient was started on hemodialysis on 05/11 Plan to do another session today Dialysis catheter placed by general surgery He is also receiving IV Lasix for hypovolemia and is still producing urine will be continue He is getting phosphate binders and calcium Lokelma discontinued (5) Generalized edema: Code(s): R60.1 - Generalized edema Status: Acute Assessment and Plan: Anasarca secondary to renal failure, right heart failure, medications Dialysis for fluid removal and diuretics Echo shows LV hypertrophy right ventricular enlargement with systolic dysfunction and volume overload (6) Congestive heart failure: Code(s): I50.9 - Heart failure, unspecified Status: Acute Assessment and Plan: See above Plan DVT prophylaxis -Lovenox Stress ulcer prophylaxis -Pepcid Nutrition - tube feeds Code Status - Full Code Total Critical Care Time - 30 minutes Due to a high probability of clinically significant, life threatening deterioration, the patient required my highest level of preparedness to intervene emergently and I personally spent this critical care time directly and personally managing the patient. This critical care time included obtaining a history; examining the patient; pulse oximetry; ordering and review of studies; arranging urgent treatment with development of a management plan; evaluation of patient's response to treatment; frequent reassessment; and discussions with other providers. It was exclusive of separately billable procedures and treating other patients and teaching time. Please see Assessment and Plan section and the rest of the note for further information on patient assessment and treatment Subjective Date/time seen: 05/12/23 Overnight events reviewed. Patient received dialysis yesterday and 4 L of fluid was removed. He also has good urine output response to diuretics. He is awake and not on any sedation although he remains on mechanical ventilation. He follows commands and nodes no to any pain or shortness of breath. He is in sinus rhythm in 80s with adequate saturation and adequa
[2023-05-12 11:56] LABS: Glucose Point of Care 103 mg/dl (65-105)
[2023-05-12] MEDS: AZITHROMYCIN 500 MG/NS 250 ML 500 MG/250 ML BAG 250 MG IVPB (12:16)
[2023-05-12] MEDS: HEPARIN SODIUM 1,000 UNITS/ML VIAL 1000 UNITS IV PUSH (12:54)
[2023-05-12] MEDS: HEPARIN SODIUM 1,000 UNITS/ML VIAL 500 UNITS IV PUSH ×4 (12:57→15:56)
--- NOTE | 2023-05-12 14:46 | PM.PNNEP ---
Progress Note: A&P Assessment and Plan (1) Chronic kidney disease, stage 5: Code(s): N18.5 - Chronic kidney disease, stage 5 Status: Acute Assessment and Plan: The patient has stage 5 chronic kidney disease. He has volume overload and now respiratory failure, on ventilator His BUN and creatinine are elevated. It is like likely that he is going to get better because if we try diuretics to get rid of the fluid his BUN and creatinine will worsen and we of course cannot try fluids to improve the BUN and creatinine. I discussed with the patient at length. He has already had a dialysis catheter placed and understands that he is going to need dialysis. He has talked with Dr. Davis about this in the past and realizes that the time for dialysis has come. We discussed the risks benefits alternatives and process of dialysis and he understands and is willing to proceed. 05/12: on hemodialysis, tolerating Will need to transition to having a tunneled CVC as he will need ongoing hemodialysis on an outpatient basis (2) HTN (hypertension) with goal to be determined: Code(s): I10 - Essential (primary) hypertension Status: Acute Assessment and Plan: bp syable with HD (3) Erythropoietin deficiency anemia: Code(s): D63.1 - Anemia in chronic kidney disease Status: Acute Assessment and Plan: Hb 8.8 will give epo with dialysis (4) Fluid overload: Code(s): E87.70 - Fluid overload, unspecified Status: Acute Assessment and Plan: remove fluid with dialysis (5) Diabetes: Code(s): E11.9 - Type 2 diabetes mellitus without complications Status: Acute Assessment and Plan: on accuchecks and SSI per hospitalists Subjective Date/time seen: 05/12/23 14:46 Interval history: F/u ESRD Now on ventilator support Seen and examined on Hemodialysis Toeolrating UF Exam Narrative: WDWN in NAD skin no rash,has anasarca neck ETT per tracheal stoma lungs Coarse breath sounds with upper airway noise from the ventilator. cor reg no rub abd BS+ nontender and soft, abdominal wall edewma ext generalized edema. Objective Data Vital Signs Vital Signs: Vital Signs - 24 hr 05/11/23 16:00 05/11/23 16:00 05/11/23 18:00 Temperature 36.5 C Pulse Rate 55 L 81 Respiratory Rate 22 H 22 H Blood Pressure 97/67 L 135/89 Pulse Oximetry 97 96 Oxygen Delivery Fraction of Inspired Oxygen 90 05/11/23 15:00 05/11/23 15:15 05/11/23 15:30 Temperature Pulse Rate 75 59 L 59 L Respiratory Rate Blood Pressure 124/93 H 116/78 117/82 Pulse Oximetry Oxygen Delivery Fraction of Inspired Oxygen 05/11/23 15:45 05/11/23 16:00 05/11/23 16:15 Temperature Pulse Rate 53 L 58 L 57 L Respiratory Rate Blood Pressure 101/69 97/67 L 99/70 L Pulse Oximetry Oxygen Delivery Fraction of Inspired Oxygen 05/11/23 16:30 05/11/23 16:45 05/11/23 17:00 Temperature Pulse Rate 69 66 67 Respiratory Rate Blood Pressure 119/79 133/82 140/84 Pulse Oximetry Oxygen Delivery Fraction of Inspired Oxygen 05/11/23 17:15 05/11/23 16:00 05/11/23 17:35 Temperature Pulse Rate 66 66 67 Respiratory Rate Blood Pressure 133/85 130/84 Pulse Oximetry 96 Oxygen Delivery Mechanical Ventilation Fraction of Inspired Oxygen 90 05/11/23 17:45 05/11/23 16:00 05/11/23 18:00 Temperature 36.5 C Pulse Rate 82 55 L 81 Respiratory Rate 23 H Blood Pressure 138/93 H Pulse Oximetry 97 Oxygen Delivery Fraction of Inspired Oxygen 05/11/23 16:00 05/11/23 20:08 05/11/23 20:00 Temperature 36.8 C Pulse Rate 82 80 Respiratory Rate 22 H Blood Pressure 152/98 H Pulse Oximetry 97 97 95 Oxygen Delivery Mechanical Ventilation Mechanical Ventilation Fraction of Inspired Oxygen 90 90 05/11/23 20:00 05/11/23 20:00 05/11/23 22:00 Temperature Pulse Rate 73 Respiratory Rate 22 H
[2023-05-12] MEDS: HEPARIN SODIUM 1,000 UNITS/ML VIAL 4000 UNITS IV PUSH (16:37)
[2023-05-12 17:16] LABS: Glucose Point of Care 90 mg/dl (65-105)
[2023-05-12] MEDS: VANCOMYCIN 750 MG/NS 250 ML 750 MG/250 ML BAG 250 MG IVPB (17:44)
[2023-05-12] MEDS: CEFEPIME 1 GM/NS 50 ML 1 GM/50 ML BAG IVPB (17:45)
[2023-05-13] VITALS (40 sets, daily range): BP systolic 85–171; BP diastolic 56–108; PULSE 68–106; RESP 15–24; TEMP 36.5–37.3; O2SAT 90–100
[2023-05-13 01:25] LABS: Glucose Point of Care 111 mg/dl (65-105)
[2023-05-13] MEDS: IPRATROPIUM BR 0.02% INH SOLN 0.5 MG/2.5 ML VIAL INHALATION ×4 (02:30→20:05)
[2023-05-13] MEDS: ALBUTEROL SULFATE NEB 2.5 MG/3 ML INH INHALATION ×4 (02:31→20:05)
[2023-05-13 04:20] LABS: Glucose Point of Care 116 mg/dl (65-105)
[2023-05-13 04:54] LABS: Basophils Percent Auto 0.2 % (0.2-1.2); Eosinophils Absolute Auto 0.1 K/mm3 (0-0.3); Eosinophils Percent Auto 1.7 % (0-4.4); Hematocrit 30.9 % (42.0-52.0); Hemoglobin 9.6 g/dL (14.0-18.0); Immature Granulocyte Absolute 0.03 K/mm3 (0.00-0.031); Immature Granulocyte Percent A 0.6 % (0-0.5); Lymphocytes Absolute Auto 0.59 K/mm3 (0.9-3.2); Lymphocytes Percent Auto 11.2 % (18.3-44.2); Mean Corpuscular HGB Conc 31.1 g/dl (32-36); Mean Corpuscular Hemoglobin 27.7 pg (26-34); Mean Platelet Volume 11.5 fl (7.4-10.4); Monocytes Absolute Auto 0.4 K/mm3 (0.1-0.6); Monocytes Percent Auto 8.1 % (2.6-8.5); Neutrophils Absolute Auto 4.1 K/mm3 (1.3-6.7); Neutrophils Percent Auto 78.2 % (45.5-73.1); Platelet Count Result 169 k/mm3 (150-375); Red Blood Count 3.47 M/mm3 (4.6-6.20); White Blood Count 5.3 K/mm3 (4.5-10.0)
[2023-05-13 05:06] LABS: Alanine Aminotransferase 53 U/L (6-50); Alkaline Phosphatase 61 U/L (38-126); Anion Gap 10 mmol/L (8-16); Aspartate Amino Transferase 49 U/L (17-59); Bilirubin,Total 0.7 mg/dL (0.2-1.3); Blood Urea Nitrogen 62 mg/dL (9-20); Calcium 7.7 mg/dL (8.4-10.2); Carbon Dioxide 26 mmol/L (22-30); Chloride 102 mmol/L (98-107); Estimated CRCL calculation 18 ml/min; Estimated Glomerular Filt Rate 12; Glucose 106 mg/dL (65-110); Magnesium 1.8 mg/dL (1.6-2.3); Phosphorus 3.7 mg/dL (2.5-4.5); Potassium 3.2 mmol/L (3.4-5.0); Sodium 138 mmol/L (137-145)
[2023-05-13 05:24] LABS: Vancomycin Random 22.4 ug/mL (10-20)
[2023-05-13 05:31] LABS: Alveolar/Arterial O2 Gradient 175.8 mmHg; Carboxyhemoglobin 0.3 % THb (0-2.0); Fractional Inspired Oxygen 40 %; Methemoglobin ABG 0.2 %THb (0-1.5); Oxygen Content ABG 19.9 %vol (16.0-22.0); Oxygen Saturation ABG 95.2 % (95.0-100.0); Oxyhemoglobin 93.2 % THb (90.0-100.0); PCO2 ABG 35.5 mmHg (35.0-45.0); PO2 ABG 68.6 mmHg (80.0-100.0); PO2 FiO2 Ratio Arterial Blood 1.71 %; Reduced Hemoglobin 6.3 %THb (0-5.0); Total Hemoglobin 15.2 g/dL (12.0-18.0); pH ABG 7.499 (7.350-7.450)
[2023-05-13 05:33] LABS: Arterial Blood Gas PEEP 8 cmH2O; Arterial Blood Gas Tidal Volume 450 ml; Arterial Blood Gas Vent Mode CMV; Arterial Blood Gas Ventilator rate 22 /MIN; Device VENTILATOR; Modified Allen's Test Pass; Site Drawn LEFT RADIAL
[2023-05-13] MEDS: LEVOTHYROXINE SODIUM 112 MCG TABLET PO (06:44)
--- NOTE | 2023-05-13 07:47 | PM.PNNEP ---
Progress Note: A&P Assessment and Plan (1) Chronic kidney disease, stage 5: Code(s): N18.5 - Chronic kidney disease, stage 5 Status: Acute (2) PIERCE (acute kidney injury): Code(s): N17.9 - Acute kidney failure, unspecified Status: Acute Assessment and Plan: Acute kidney injury:? Probably decompensated with grade 1 diastolic heart failure acute on chronic.? 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 -discussed with dialysis staff -being now treated as chronic kidney disease stage 5/end-stage renal disease -follow-up for ESRD and related needs Subjective Date/time seen: 05/13/23 07:47 Interval history: Follow-up end-stage renal disease Patient is on a ventilator, comfortable with his breathing She is intubated through his tracheostomy Hemodialysis being initiated and the supervised Review of Systems Review of Systems: Unable to get Exam Narrative: Seen and examined in the intensive care unit, patient is on a ventilator. Patient is being initiated on hemodialysis and who supervised. Comfortable with his breathing. Tracheostomy in place with intubation through his tracheostomy. Coarse lungs, equal breath sounds, regular rhythm, soft nontender abdomen, edematous body, there is some shoveling of skin now being noted. The patient is alert and awake, able to communicate by using hands and attempting to talk and mouthing words Objective Data Vital Signs Vital Signs: Vital Signs - 24 hr 05/12/23 08:06 05/12/23 08:17 05/12/23 08:35 Temperature Pulse Rate 85 83 83 Respiratory Rate 22 H 22 H Blood Pressure Pulse Oximetry 98 Oxygen Delivery Mechanical Ventilation Fraction of Inspired Oxygen 55 05/12/23 08:37 05/12/23 08:00 05/12/23 08:00 Temperature Pulse Rate 85 Respiratory Rate Blood Pressure Pulse Oximetry Oxygen Delivery Mechanical Ventilation Fraction of Inspired Oxygen 50 50 05/12/23 08:00 05/12/23 10:00 05/12/23 10:00 Temperature 37.2 C Pulse Rate 85 85 85 Respiratory Rate 18 14 Blood Pressure 144/86 H 139/89 Pulse Oximetry 97 95 Oxygen Delivery Fraction of Inspired Oxygen 05/12/23 10:47 05/12/23 12:00 05/12/23 12:00 Temperature Pulse Rate 84 73 73 Respiratory Rate 22 H Blood Pressure Pulse Oximetry 98 97 Oxygen Delivery Mechanical Ventilation Mechanical Ventilation Fraction of Inspired Oxygen 45 45 05/12/23 12:00 05/12/23 12:00 05/12/23 12:57 Temperature 36.9 C Pulse Rate 73 72 Respiratory Rate 22 H Blood Pressure 133/88 123/80 Pulse Oximetry 97 Oxygen Delivery Fraction of Inspired Oxygen 45 05/12/23 12:38 05/12/23 12:57 05/12/23 13:30 Temperature Pulse Rate 75 67 Respiratory Rate 20 Blood Pressure 129/87 123/82 Pulse Oximetry 97 Oxygen Delivery Fraction of Inspired Oxygen 45 05/12/23 13:45 05/12/23 14:30 05/12/23 15:00 Temperature Pulse Rate 68 64 65 Respiratory Rate Blood Pressure 138/87 136/86 128/84 Pulse Oximetry Oxygen Delivery Fraction of Inspired Oxygen 05/12/23 15:15 05/12/23 15:27 05/12/23 15:30 Temperature Pulse Rate 67 70 62 Respiratory Rate Blood Pressure 112/67 112/82 112/76
[2023-05-13 09:32] LABS: Glucose Point of Care 95 mg/dl (65-105)
--- NOTE | 2023-05-13 10:13 | WPDINTPN ---
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 Will this hospitalization patient has been gradually developing worsening hypoxia and yesterday ABG showed hypercarbia and respiratory acidosis. Patient was transferred to ICU Patient was intubated through the stoma ER physician placed on mechanical ventilation. Vent settings ABG and chest x-ray reviewed Patient is down to 40 % FiO2 and 10 of PEEP. Continue wean FiO2 Hypercarbia has resolved and mostly patient now has metabolic acidosis Continue mechanical ventilation Continue to removed with dialysis and diuresis he will need additional fluid removal before weaning can be attempted (2) Sepsis: Code(s): A41.9 - Sepsis, unspecified organism Status: Acute Assessment and Plan: Secondary to cellulitis. WBC normal and patient afebrile The could be component of pneumonia on the chest x-ray although it looks overall mainly fluid overload Patient has been on broad-spectrum antibiotics azithromycin, vancomycin and cefepime Cultures have been negative completed course of azithromycin Will discontinue vancomycin and switch cefepime to Rocephin Hemodynamically stable and not requiring any vasopressors (3) Cellulitis of lower leg: Code(s): L03.119 - Cellulitis of unspecified part of limb Status: Acute Assessment and Plan: See above (4) Chronic kidney disease (CKD): Qualifiers: Chronic kidney disease stage: stage 4 (severe) Qualified Code(s): N18.4 - Chronic kidney disease, stage 4 (severe) Code(s): N18.9 - Chronic kidney disease, unspecified Status: Acute Assessment and Plan: Patient has chronic kidney disease stage 4 which is likely progressed to end-stage renal disease Patient is being seen by Nephrology Patient was started on hemodialysis on 05/11 Plan to do another session today Dialysis catheter placed by general surgery He is also receiving IV Lasix for hypervolemia and is still producing urine will be continue In fact his urine output improved after he was started on hemodialysis likely secondary to improved cardiac output due to decreased pressure overload of the right ventricle He is getting phosphate binders and calcium Lokelma discontinued (5) Generalized edema: Code(s): R60.1 - Generalized edema Status: Acute Assessment and Plan: Anasarca secondary to renal failure, right heart failure, medications Dialysis for fluid removal and diuretics Significant improvement Echo shows LV hypertrophy right ventricular enlargement with systolic dysfunction and volume overload (6) Congestive heart failure: Code(s): I50.9 - Heart failure, unspecified Status: Acute Assessment and Plan: See above Plan DVT prophylaxis -Lovenox Stress ulcer prophylaxis -Pepcid Nutrition -continue tube feeds Code Status - Full Code Total Critical Care Time - 30 minutes Due to a high probability of clinically significant, life threatening deterioration, the patient required my highest level of preparedness to intervene emergently and I personally spent this critical care time directly and personally managing the patient. This critical care time included obtaining a history; examining the patient; pulse oximetry; ordering and review of studies; arranging urgent treatment with development of a management plan; evaluation of patient's response to treatment; frequent reassessment; and discussions with other providers. It was exclusive of separately billable procedures and treating other patients and teaching time. Please see Assessment and Plan section and the rest of the note for further information on patient assessment and treatment Subjective Date/time seen: 05/13/23 Patient was di
[2023-05-13] MEDS: PRAVASTATIN SODIUM 20 MG TABLET 40 MG PO (10:21)
--- NOTE | 2023-05-13 10:32 | PCNFU ---
Nutrition Follow-Up Complete: Increased protein energy needs related to mechanical ventilation as evidenced by need for full tube feeding goal: Meet estimated protein energy needs Patient is progressing towards goal. We will continue current goal. Pt current nutrition is Nepro at 50 ml/hr. Last recorded weight is 117.9 kg, stable. Bowel Motility:+Bm reported 05/12 Labs Reviewed:Cr 5.10,BUN 62, GFR 12, K 3.2,Alb 3.0,Hct 30.9, Hgb 9.6 Meds Noted:Synthroid, Atrovent. Skin: WNL Additional Notes: Patient remains on mechanical vent. Tube feedings of Nepro at 40 ml/hr. Orders to increased to 50 ml/hr today. Tube feedings at goal rate providing 1980 kcals/89 gms protein/800 ml water. Meeting 100% kcal needs at 16 kcal/kg and 75% protein needs at 1.0-1.2 kg/kg. Patient starting dialysis today. Recommend adding protein modular of Prosource once daily for additional 80 kcals and 20 gms protein. Monitor tube feeding orders, tolerance, labs, weights, plan of care Follow up daily in ICU rounds and reassess Tuesdays and Fridays
[2023-05-13] MEDS: cefTRIAXone 2 GM/NS 100 ML 2 GM/100 ML BAG IVPB (11:40)
[2023-05-13] MEDS: FAMOTIDINE 20 MG/2 ML VIAL 40 MG IV PUSH ×2 (11:40→20:33)
[2023-05-13 12:09] LABS: Glucose Point of Care 89 mg/dl (65-105)
[2023-05-13 12:39] LABS: Anion Gap 6 mmol/L (8-16); Blood Urea Nitrogen 40 mg/dL (9-20); Calcium 7.7 mg/dL (8.4-10.2); Carbon Dioxide 31 mmol/L (22-30); Chloride 101 mmol/L (98-107); Estimated CRCL calculation 26 ml/min; Estimated Glomerular Filt Rate 17; Glucose 95 mg/dL (65-110); Potassium 3.3 mmol/L (3.4-5.0); Sodium 138 mmol/L (137-145)
[2023-05-13 12:44] LABS: Alveolar/Arterial O2 Gradient 157.4 mmHg; Base Excess ABG 1.4 mEq/l (+/-2.0); Carboxyhemoglobin 0.3 % THb (0-2.0); Fractional Inspired Oxygen 40 %; HCO3 ABG 25.6 mEq/l (22.0-26.0); Methemoglobin ABG 0.2 %THb (0-1.5); Oxygen Saturation ABG 96.6 % (95.0-100.0); Oxyhemoglobin 94.9 % THb (90.0-100.0); PCO2 ABG 38.7 mmHg (35.0-45.0); PO2 ABG 83.3 mmHg (80.0-100.0); PO2 FiO2 Ratio Arterial Blood 2.08 %; Reduced Hemoglobin 4.6 %THb (0-5.0); Total Hemoglobin 11.9 g/dL (12.0-18.0); pH ABG 7.438 (7.350-7.450)
[2023-05-13 12:45] LABS: Device VENTILATOR; Modified Allen's Test Pass; Site Drawn RIGHT RADIAL
[2023-05-13 12:46] LABS: Arterial Blood Gas PEEP 5 cmH2O; Arterial Blood Gas Pressure Support 5 cmH2O; Arterial Blood Gas Vent Mode SPONTANEOUS
[2023-05-13] MEDS: POTASSIUM CHLORIDE 20 MEQ PACKET (FOR LIQUID) 40 MEQ FEED TUBE ×2 (13:39→19:05)
--- NOTE | 2023-05-13 15:54 | PM.PNCARD ---
Progress Note: A&P Assessment and Plan (1) Elevated troponin: Code(s): R79.89 - Other specified abnormal findings of blood chemistry Status: Acute Assessment and Plan: Troponin levels are chronically elevated. This is most likely because of his chronic kidney disease as well as CHF. Denies chest pain. EKG does not have any acute STTW changes. Cannot exclude underlying coronary disease but his clinical presentation is not consistent with ACS. At this time I am not going to recommend any ischemic workup. (2) Congestive heart failure: Code(s): I50.9 - Heart failure, unspecified Status: Acute Assessment and Plan: He has known RV dysfunction and mild diastolic dysfunction. Dialysis for volume management. (3) PIERCE (acute kidney injury): Code(s): N17.9 - Acute kidney failure, unspecified Status: Acute Assessment and Plan: On dialysis. Nephrology following (4) Generalized edema: Code(s): R60.1 - Generalized edema Status: Acute Assessment and Plan: Secondary to #2 and #3. Improving Plan Cardiology will sign off please call with any questions Subjective Date/time seen: 05/13/23 15:54 Interval history: Cardiology follow up for CHF He is feeling much better. Has been placed on dialysis and is nearly 14L negative at this point. No chest pain, palpitations. Has had some runs of atrial tachycardia on telemetry. Review of Systems Review of Systems: All systems reviewed & are unremarkable except as noted in HPI and below Exam Const: General: comfortable, no acute distress, alert and awake Orientation/consciousness: patient oriented x3 HENMT: Head: normal to inspection Eyes: General: appearance normal, both eyes and all related structures Pupils: Equal, round and reactive pupils present Neck: Neck: not normal to visual inspection, supple and no JVD Carotids: normal carotid upstroke Other: tracheostomy in place Resp: Effort & Inspection: normal respiratory effort and other (mechanically ventilated) Auscultation: clear to auscultation bilaterally Cardio: Rate: regular rate Rhythm: regular rhythm Heart sounds: S1 normal heart sound present, S2 normal heart sound present and no murmurs GI: Auscultation: normal bowel sounds Other: Feeding tube in place Skin: General skin exam: normal color and wounds noted (bilateral calves) Wounds: wounds noted (bilateral calves) Neuro: General: patient oriented x3 Cranial nerves: Yes Equal, round and reactive pupils present Extrem: General: normal to inspection Other: R great toe amputated Psych: Appearance: grossly normal Mental Status: mental status grossly normal Objective Data Vital Signs Vital Signs: Vital Signs - 24 hr 05/12/23 16:00 05/12/23 16:15 05/12/23 16:00 Temperature Pulse Rate 60 67 66 Respiratory Rate Blood Pressure 119/76 126/84 Pulse Oximetry Oxygen Delivery Fraction of Inspired Oxygen 05/12/23 16:00 05/12/23 16:00 05/12/23 16:00 Temperature Pulse Rate 66 66 Respiratory Rate 22 H 22 H Blood Pressure 119/76 Pulse Oximetry 99 99 Oxygen Delivery Mechanical Ventilation Fraction of Inspired Oxygen 40 40 05/12/23 17:12 05/12/23 18:00 05/12/23 18:00 Temperature Pulse Rate 70 63 63 Respiratory Rate 22 H Blood Pressure 131/96 H Pulse Oximetry 97 96 Oxygen Delivery Mechanical Ventilation Fraction of Inspired Oxygen 40 05/12/23 16:27 05/12/23 16:31 05/12/23 20:00 Temperature 36.3 C L Pulse Rate 61 67 62 Respiratory Rate 19 Blood Pressure 117/81 140/84 Pulse Oximetry 97 Oxygen Delivery Fraction of Inspired Oxygen 05/12/23 20:00 05/12/23 20:00 05/12/23 20:00 Temperature 36.7 C Pulse Rate 62 63 Respiratory Rate 22 H 22 H Blood Pressure 137/82 Pulse Oximetry 94 95 Oxygen Delivery Mechanical Ventilation Fraction of Inspired Oxygen 40 40 05/12/23 2
--- NOTE | 2023-05-13 16:37 | WPDPROCEDUR ---
Procedures Other Procedures Procedure 1: Other Procedure: Trach change with tracheoscopy. All the consents obtained. Endotracheal tube removed 8 Shiley placed went easily cuff inflated patient ventilating well. Flexible laryngoscope was passed through the trach to confirm that the trach set several cm above the jia and was in good place. Was in a good place. Patient tolerated the procedure well. No complications.
--- NOTE | 2023-05-13 16:38 | WPDCN ---
Assessment and Plan Assessment and plan (1) Aspiration into respiratory tract: Code(s): T17.908A - Unspecified foreign body in respiratory tract, part unspecified causing other injury, initial encounter Status: Acute Assessment and Plan: Endotracheal tube removed trach place trach is in good position. Please call me with any questions. HPI Data of Consult Date/Time: 05/13/23 16:38 Requesting Physician: Ted Faulkner MD Primary Care Provider: [facility] Consult Narrative Narrative: Bubba Saxena is a 58 year old male With a previous laryngectomy. He is not doing well from a respiratory standpoint. A initially called and advised putting endotracheal tube not knowing what his stoma looked like. Seeing him today for follow-up. Review of Systems Review of Systems: All systems reviewed & are unremarkable except as noted in HPI and below PMFSH Past Medical History Medical History Amputated toe CRF (chronic renal failure) Diabetes Erythropoietin deficiency anemia Generalized edema HTN (hypertension) with goal to be determined Hyperlipidemia Hypertension Hypothyroidism Renal osteodystrophy Surgical History Surgical History H/O foot surgery Amputation right great toe History of throat surgery Family History Family History Mother Family history of diabetes mellitus in first degree relative Diabetes mellitus Hypertension Heart disease Cerebrovascular accident Father Alcoholism Sibling Alcoholism Diabetes mellitus Hypertension Heart disease Cerebrovascular accident Other Family history of lung cancer Social History Social History Social History: The patient is and has 1 child. The patient is a former smoker. He denies any alcohol marijuana or illicit drugs. 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 His is the durable power estate attorney for healthcare. Code status full code Smoking packs per day: 2 Smoking cigarettes per day: 40.0 Years smoked: 35 Smoking pack-years: 70.00 Smoking status: Former smoker Tobacco type: cigarettes Second hand tobacco smoke exposure: No Alcohol intake: never Substance use: never Substance use type: does not use Lack of Transportation: No Lack of Food: Never True Current Housing: I Have Housing Concerned About Future Housing: No Difficulty Paying Gas/Electric Bills: No Difficulty Paying for Meds: No Currently Unemployed: No Education: High School Diploma/GED Difficulty w/ Childcare or Family Care: No Gender identity (if verbalized by the patient): Male Spiritual care concerns: No Meds Home Medications and Allergies Home Medications Medication Instructions Recorded Confirmed Type amlodipine 10 mg tablet 10 mg PO DAILY 10/09/20 05/08/23 History calcitriol 0.25 mcg capsule 0.25 mcg PO DAILY 10/09/20 05/08/23 History carvedilol 12.5 mg tablet 12.5 mg PO Q12H 10/09/20 05/08/23 History levothyroxine 112 mcg capsule 112 mcg PO DAILY 10/09/20 05/08/23 History losartan 100 mg tablet 100 mg PO DAILY 10/09/20 05/08/23 History pioglitazone 30 mg tablet 30 mg PO DAILY 10/09/20 05/08/23 History glimepiride 2 mg tablet 2 mg PO DAILY 05/08/23 05/08/23 History pravastatin 40 mg tablet 40 mg PO DAILY 05/08/23 05/08/23 History Allergies Allergy/AdvReac Type Severity Reaction Status Date / Time No Known Allergies Allergy Unknown Verified 05/07/23 19:30 Vital Signs Vital Signs - 24 hr 05/12/23 17:12 05/12/23 18:00 05/12/23 18:00 Temperature Pulse Rate 70 63 63 Respiratory Rate 22 H Blood Pressure 131/96 H Pulse Oximetry 97 96 Oxygen Delivery Mechanical Ventilation Fraction of Inspired Oxygen 40 05/12/23 20:00 05/12/23 20:00
[2023-05-13 17:09] LABS: Glucose Point of Care 132 mg/dl (65-105)
[2023-05-13] MEDS: FUROSEMIDE INJ 100 MG/10 ML VIAL 80 MG IV PUSH (17:32)
[2023-05-13 20:38] LABS: Glucose Point of Care 124 mg/dl (65-105)
[2023-05-13] MEDS: MELATONIN 3 MG TABLET PO (21:21)
[2023-05-13 22:06] LABS: Pneumococcal Antigen Urine Not Detected (Not Detected)
[2023-05-14] VITALS (26 sets, daily range): BP systolic 105–164; BP diastolic 69–103; PULSE 64–101; RESP 15–28; TEMP 36.8–37.2; O2SAT 92–97
[2023-05-14] MEDS: IPRATROPIUM BR 0.02% INH SOLN 0.5 MG/2.5 ML VIAL INHALATION ×4 (02:36→20:12)
[2023-05-14] MEDS: ALBUTEROL SULFATE NEB 2.5 MG/3 ML INH INHALATION ×4 (02:41→20:12)
[2023-05-14 03:21] LABS: Legionella pneumophila Ag Ur Not Detected (Not Detected)
[2023-05-14 05:25] LABS: Base Excess ABG 6.9 mEq/l (+/-2.0); Fractional Inspired Oxygen 30 %; HCO3 ABG 30.8 mEq/l (22.0-26.0); Methemoglobin ABG 0.1 %THb (0-1.5); Oxygen Content ABG 15.2 %vol (16.0-22.0); Oxyhemoglobin 95.1 % THb (90.0-100.0); PCO2 ABG 41.3 mmHg (35.0-45.0); PO2 ABG 84.4 mmHg (80.0-100.0); PO2 FiO2 Ratio Arterial Blood 2.81 %; Reduced Hemoglobin 3.8 %THb (0-5.0); Total Hemoglobin 11.3 g/dL (12.0-18.0); pH ABG 7.491 (7.350-7.450)
[2023-05-14 05:26] LABS: Device VENTILATOR; Modified Allen's Test Pass; Site Drawn LEFT RADIAL
[2023-05-14 05:27] LABS: Arterial Blood Gas PEEP 5 cmH2O; Arterial Blood Gas Tidal Volume 450 ml; Arterial Blood Gas Vent Mode CMV; Arterial Blood Gas Ventilator rate 18 /MIN
[2023-05-14 05:41] LABS: Hematocrit 34.1 % (42.0-52.0); Hemoglobin 10.1 g/dL (14.0-18.0); Mean Corpuscular HGB Conc 29.6 g/dl (32-36); Mean Corpuscular Hemoglobin 27.3 pg (26-34); Mean Corpuscular Volume 92.2 fl (80-100); Mean Platelet Volume 11.6 fl (7.4-10.4); Platelet Count Result 175 k/mm3 (150-375); Red Cell Distribution Width 15.9 % (11.5-14.5); White Blood Count 5.2 K/mm3 (4.5-10.0)
[2023-05-14 05:55] LABS: Alanine Aminotransferase 43 U/L (6-50); Alkaline Phosphatase 63 U/L (38-126); Anion Gap 4 mmol/L (8-16); Aspartate Amino Transferase 44 U/L (17-59); Bilirubin,Total 0.7 mg/dL (0.2-1.3); Blood Urea Nitrogen 48 mg/dL (9-20); Calcium 7.8 mg/dL (8.4-10.2); Carbon Dioxide 33 mmol/L (22-30); Chloride 101 mmol/L (98-107); Estimated CRCL calculation 22 ml/min; Estimated Glomerular Filt Rate 15; Glucose 105 mg/dL (65-110); Magnesium 1.7 mg/dL (1.6-2.3); Potassium 3.7 mmol/L (3.4-5.0); Sodium 138 mmol/L (137-145)
[2023-05-14] MEDS: LEVOTHYROXINE SODIUM 112 MCG TABLET PO (06:18)
[2023-05-14 08:04] LABS: Glucose Point of Care 103 mg/dl (65-105)
[2023-05-14] MEDS: POTASSIUM CHLORIDE 20 MEQ PACKET (FOR LIQUID) 40 MEQ FEED TUBE (08:22)
[2023-05-14] MEDS: calcitrioL 0.25 MCG CAPSULE PO (08:22)
[2023-05-14] MEDS: CALCIUM CARBONATE (TUMS) 500 MG (200 MG ELEMENTAL) 400 MG PO ×3 (08:22→17:08)
[2023-05-14] MEDS: PRAVASTATIN SODIUM 20 MG TABLET 40 MG PO (08:22)
[2023-05-14] MEDS: FUROSEMIDE INJ 100 MG/10 ML VIAL 80 MG IV PUSH ×2 (08:22→17:08)
[2023-05-14] MEDS: cefTRIAXone 2 GM/NS 100 ML 2 GM/100 ML BAG IVPB (08:23)
[2023-05-14] MEDS: FAMOTIDINE 20 MG/2 ML VIAL 40 MG IV PUSH ×2 (08:23→20:07)
--- NOTE | 2023-05-14 08:37 | WPDINTPN ---
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 Will this hospitalization patient has been gradually developing worsening hypoxia and yesterday ABG showed hypercarbia and respiratory acidosis. Patient was transferred to ICU Patient was intubated through the stoma ER physician placed on mechanical ventilation. 05/13 ET tube was changed to a tracheostomy size 8 by ENT Vent settings ABG and chest x-ray reviewed Patient is down to 30 % FiO2 and 5 of PEEP. Continue wean FiO2 Hypercarbia and acidosis has resolved with mechanical ventilation and dialysis Continue mechanical ventilation and will trial weaning trial today continue to remove fluid with dialysis and diuresis (2) Sepsis: Code(s): A41.9 - Sepsis, unspecified organism Status: Acute Assessment and Plan: Secondary to cellulitis. WBC normal and patient afebrile The could be component of pneumonia on the chest x-ray although it looks overall mainly fluid overload Patient has been on broad-spectrum antibiotics azithromycin, vancomycin and cefepime Cultures have been negative completed course of azithromycin Will discontinue vancomycin and switch cefepime to Rocephin Hemodynamically stable and not requiring any vasopressors (3) Cellulitis of lower leg: Code(s): L03.119 - Cellulitis of unspecified part of limb Status: Acute Assessment and Plan: See above (4) Chronic kidney disease (CKD): Qualifiers: Chronic kidney disease stage: stage 4 (severe) Qualified Code(s): N18.4 - Chronic kidney disease, stage 4 (severe) Code(s): N18.9 - Chronic kidney disease, unspecified Status: Acute Assessment and Plan: Patient has chronic kidney disease stage 4 which is likely progressed to end-stage renal disease Patient is being seen by Nephrology Patient was started on hemodialysis on 05/11 Plan to do another session today Dialysis catheter placed by general surgery He is also receiving IV Lasix for hypervolemia and is still producing urine will be continue In fact his urine output improved after he was started on hemodialysis likely secondary to improved cardiac output due to decreased pressure overload of the right ventricle He is getting phosphate binders and calcium Lokelma discontinued (5) Generalized edema: Code(s): R60.1 - Generalized edema Status: Acute Assessment and Plan: Anasarca secondary to renal failure, right heart failure, medications Dialysis for fluid removal and diuretics Significant improvement Echo shows LV hypertrophy right ventricular enlargement with systolic dysfunction and volume overload (6) Congestive heart failure: Code(s): I50.9 - Heart failure, unspecified Status: Acute Assessment and Plan: See above Plan DVT prophylaxis -Lovenox Stress ulcer prophylaxis -Pepcid Nutrition -continue tube feeds Code Status - Full Code Total Critical Care Time - 30 minutes Due to a high probability of clinically significant, life threatening deterioration, the patient required my highest level of preparedness to intervene emergently and I personally spent this critical care time directly and personally managing the patient. This critical care time included obtaining a history; examining the patient; pulse oximetry; ordering and review of studies; arranging urgent treatment with development of a management plan; evaluation of patient's response to treatment; frequent reassessment; and discussions with other providers. It was exclusive of separately billable procedures and treating other patients and teaching time. Please see Assessment and Plan section and the rest of the note for further information on patient assessment and treatment Subjective Amrit
[2023-05-14 09:08] LABS: Alveolar/Arterial O2 Gradient 78.9 mmHg; Base Excess ABG 7.4 mEq/l (+/-2.0); Fractional Inspired Oxygen 30 %; HCO3 ABG 32.5 mEq/l (22.0-26.0); Oxygen Content ABG 15.7 %vol (16.0-22.0); Oxyhemoglobin 94.8 % THb (90.0-100.0); PO2 ABG 78.6 mmHg (80.0-100.0); PO2 FiO2 Ratio Arterial Blood 2.62 %; Total Hemoglobin 11.7 g/dL (12.0-18.0); pH ABG 7.448 (7.350-7.450)
[2023-05-14 09:10] LABS: Arterial Blood Gas PEEP 5 cmH2O; Arterial Blood Gas Pressure Support 5 cmH2O; Arterial Blood Gas Vent Mode SPONTANEOUS; Device VENTILATOR; Modified Allen's Test Pass; Site Drawn RIGHT RADIAL
--- NOTE | 2023-05-14 11:44 | PCFNICU ---
ICU Rounding Note: Pt current nutrition is Nepro at 50ml/hr. Last recorded weight is 105.8 kg, down from 117.9 kg on admit. Dialysis started 05/11. Bowel Motility: +BM reported 05/14 Labs Reviewed:Cr 4.2,BUN 48, GFR 15, Alb 3.0,Hct 34.1, Hgb 10.1 Meds Noted:Synthroid, Pepcid, Lasix, Atrovent. Skin: WNL Additional Notes: Patient failed weaning trial, has stoma and was changed to a tracheostomy tube. PEG feedings continue of Nepro at 50 ml/hr and tolerating per nursing. Flush 30 ml q 4 hours. Dialysis treatment on 05/13. Agree with diet orders. Following daily in ICU rounds. Monitor tube feeding orders, tolerance, labs, weights, plan of care every Friday and Friday.
[2023-05-14 12:10] LABS: Glucose Point of Care 116 mg/dl (65-105)
[2023-05-14 16:49] LABS: Glucose Point of Care 109 mg/dl (65-105)
[2023-05-14] MEDS: CEFEPIME 1 GM/NS 50 ML 1 GM/50 ML BAG IVPB (17:08)
[2023-05-14 19:39] LABS: Glucose Point of Care 113 mg/dl (65-105)
[2023-05-14 23:50] LABS: Glucose Point of Care 118 mg/dl (65-105)
[2023-05-15] VITALS (41 sets, daily range): BP systolic 94–144; BP diastolic 61–117; PULSE 73–113; RESP 17–29; TEMP 36.8–37.2; O2SAT 93–100
[2023-05-15] MEDS: ALBUTEROL SULFATE NEB 2.5 MG/3 ML INH INHALATION ×4 (02:17→20:07)
[2023-05-15] MEDS: IPRATROPIUM BR 0.02% INH SOLN 0.5 MG/2.5 ML VIAL INHALATION ×4 (02:17→20:07)
[2023-05-15 04:05] LABS: Glucose Point of Care 105 mg/dl (65-105)
[2023-05-15 04:45] LABS: Alveolar/Arterial O2 Gradient 90.4 mmHg; Base Excess ABG 8.8 mEq/l (+/-2.0); Carboxyhemoglobin 0.6 % THb (0-2.0); Fractional Inspired Oxygen 30 %; HCO3 ABG 32.7 mEq/l (22.0-26.0); Methemoglobin ABG 0.1 %THb (0-1.5); Oxygen Content ABG 16.2 %vol (16.0-22.0); Oxyhemoglobin 94.7 % THb (90.0-100.0); PCO2 ABG 41.9 mmHg (35.0-45.0); PO2 ABG 74.3 mmHg (80.0-100.0); PO2 FiO2 Ratio Arterial Blood 2.48 %; Reduced Hemoglobin 4.6 %THb (0-5.0); Total Hemoglobin 12.1 g/dL (12.0-18.0)
[2023-05-15 05:43] LABS: Hematocrit 37.1 % (42.0-52.0); Hemoglobin 10.9 g/dL (14.0-18.0); Mean Corpuscular HGB Conc 29.4 g/dl (32-36); Mean Corpuscular Hemoglobin 27.5 pg (26-34); Mean Corpuscular Volume 93.5 fl (80-100); Mean Platelet Volume 12.6 fl (7.4-10.4); Platelet Count Result 185 k/mm3 (150-375); Red Blood Count 3.97 M/mm3 (4.6-6.20); Red Cell Distribution Width 15.9 % (11.5-14.5); White Blood Count 6.1 K/mm3 (4.5-10.0)
[2023-05-15 06:06] LABS: Alanine Aminotransferase 39 U/L (6-50); Albumin Level 3.3 g/dL (3.5-5.1); Alkaline Phosphatase 71 U/L (38-126); Anion Gap 8 mmol/L (8-16); Aspartate Amino Transferase 40 U/L (17-59); Bilirubin,Total 0.6 mg/dL (0.2-1.3); Blood Urea Nitrogen 56 mg/dL (9-20); Calcium 8.3 mg/dL (8.4-10.2); Carbon Dioxide 34 mmol/L (22-30); Chloride 98 mmol/L (98-107); Estimated CRCL calculation 19 ml/min; Estimated Glomerular Filt Rate 13; Glucose 100 mg/dL (65-110); Magnesium 1.8 mg/dL (1.6-2.3); Potassium 3.7 mmol/L (3.4-5.0); Sodium 140 mmol/L (137-145)
[2023-05-15 06:08] LABS: Device VENTILATOR; Modified Allen's Test Pass; Site Drawn LEFT RADIAL
[2023-05-15 06:09] LABS: Arterial Blood Gas PEEP 5 cmH2O; Arterial Blood Gas Vent Mode PRESSURE SUPPORT
[2023-05-15 06:10] LABS: Arterial Blood Gas Pressure Support 10 cmH2O
[2023-05-15] MEDS: LEVOTHYROXINE SODIUM 112 MCG TABLET PO (06:11)
[2023-05-15] MEDS: POTASSIUM CHLORIDE 20 MEQ PACKET (FOR LIQUID) 40 MEQ FEED TUBE (09:11)
[2023-05-15] MEDS: CALCIUM CARBONATE (TUMS) 500 MG (200 MG ELEMENTAL) 400 MG PO ×3 (09:11→17:26)
[2023-05-15] MEDS: calcitrioL 0.25 MCG CAPSULE PO (09:12)
[2023-05-15] MEDS: PRAVASTATIN SODIUM 20 MG TABLET 40 MG PO (09:12)
[2023-05-15] MEDS: FAMOTIDINE 20 MG/2 ML VIAL 40 MG IV PUSH ×2 (09:21→21:27)
--- NOTE | 2023-05-15 09:57 | WPDINTPN ---
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 Will this hospitalization patient has been gradually developing worsening hypoxia and yesterday ABG showed hypercarbia and respiratory acidosis. Patient was transferred to ICU Patient was intubated through the stoma ER physician placed on mechanical ventilation. 05/13 ET tube was changed to a tracheostomy size 8 by ENT Vent settings ABG and chest x-ray reviewed Patient is down to 30 % FiO2 and 5 of PEEP. Continue wean FiO2 Hypercarbia and acidosis has resolved with mechanical ventilation and dialysis 05/14 patient tolerated PSV and was switched to trach shield which he tolerated through the day and patient was placed back on PSV at night 05/15 continue to remove fluid with dialysis and diuresis. Patient has been switched back to trach she this morning and will continue as tolerated (2) Sepsis: Code(s): A41.9 - Sepsis, unspecified organism Status: Acute Assessment and Plan: Secondary to cellulitis. WBC normal and patient afebrile The could be component of pneumonia on the chest x-ray although it looks overall mainly fluid overload Patient has been on broad-spectrum antibiotics azithromycin, vancomycin and cefepime Cultures have been negative completed course of azithromycin vancomycin was discontinued and patient was switched to Rocephin 1213 cultures came back positive for Pseudomonas. Was switched back to cefepime which will be continued Hemodynamically stable and not requiring any vasopressors (3) Cellulitis of lower leg: Code(s): L03.119 - Cellulitis of unspecified part of limb Status: Acute Assessment and Plan: See above (4) Chronic kidney disease (CKD): Qualifiers: Chronic kidney disease stage: stage 4 (severe) Qualified Code(s): N18.4 - Chronic kidney disease, stage 4 (severe) Code(s): N18.9 - Chronic kidney disease, unspecified Status: Acute Assessment and Plan: Patient has chronic kidney disease stage 4 which is likely progressed to end-stage renal disease Patient is being seen by Nephrology Patient was started on hemodialysis on 05/11 Plan to do another session today Dialysis catheter placed by general surgery He is also receiving IV Lasix for hypervolemia and is still producing urine will be continue In fact his urine output improved after he was started on hemodialysis likely secondary to improved cardiac output due to decreased pressure overload of the right ventricle He is getting phosphate binders and calcium Lokelma discontinued 05/15 patient is getting another session of dialysis today (5) Generalized edema: Code(s): R60.1 - Generalized edema Status: Acute Assessment and Plan: Anasarca secondary to renal failure, right heart failure, medications Dialysis for fluid removal and diuretics Significant improvement Echo shows LV hypertrophy right ventricular enlargement with systolic dysfunction and volume overload (6) Congestive heart failure: Code(s): I50.9 - Heart failure, unspecified Status: Acute Assessment and Plan: See above Plan DVT prophylaxis -Lovenox Stress ulcer prophylaxis -Pepcid Nutrition -continue tube feeds Code Status - Full Code Total Critical Care Time - 30 minutes Due to a high probability of clinically significant, life threatening deterioration, the patient required my highest level of preparedness to intervene emergently and I personally spent this critical care time directly and personally managing the patient. This critical care time included obtaining a history; examining the patient; pulse oximetry; ordering and review of studies; arranging urgent treatment with development of a management plan; evaluation
--- NOTE | 2023-05-15 10:15 | P.CDI_ITS ---
Acute on Chronic Systolic CHF CDI Query Clarification Request CHF noted in the assessment and plan. Elevated BNP on 05/07/23 lab work. Patient receiving Lasix. Pulmonary edema noted on the chest xray. Anasarca noted in the 05/15/23 progress note. Anasarca secondary to renal failure, right heart failure, medications Please specify type and acuity of heart failure if known. * Acute * Chronic * Acute on Chronic * Unknown * Systolic * Diastolic * Combined Systolic and Diastolic * Unknown
--- NOTE | 2023-05-15 10:43 | PM.PNNEP ---
Progress Note: A&P Assessment and Plan (1) Chronic kidney disease, stage 5: Code(s): N18.5 - Chronic kidney disease, stage 5 Status: Acute (2) PIERCE (acute kidney injury): Code(s): N17.9 - Acute kidney failure, unspecified Status: Acute Assessment and Plan: Acute kidney injury:? Probably decompensated with grade 1 diastolic heart failure acute on chronic.? 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 Improving chest x-ray today. Anemia of chronic kidney disease Plan: -dialysis supervised 05/15/23 -he urinary output increasing, it may be that he can stay off dialysis for a while and can plan an access on an outpatient basis once stable -will give 1 more session of dialysis for fluid removal and help with extubation -hold off on a tunneled CVC, will decide on ongoing need for dialysis -follow-up Subjective Date/time seen: 05/15/23 10:43 Interval history: Follow-up end-stage renal disease Seen and examined on hemodialysis and hemodialysis dialyzed since 2022 Looks better intubated through tracheostomy Exam Narrative: Seen and examined in the intensive care unit, patient is on a ventilator. Patient is seen and examined on hemodialysis and hemodialysis supervised. Comfortable with his breathing. Tracheostomy in place with intubation through his tracheostomy. Clear lungs, equal breath sounds, regular rhythm, soft nontender abdomen, decreasing edema, alert and awake, no tremors Objective Data Vital Signs Vital Signs: Vital Signs - 24 hr 05/14/23 12:00 05/14/23 12:00 05/14/23 12:00 Temperature Pulse Rate 89 89 81 Respiratory Rate 17 26 H Blood Pressure Pulse Oximetry 94 95 Oxygen Delivery High Flow Therapy with Tr Oxygen Flow Rate 6 Fraction of Inspired Oxygen 30 05/14/23 13:45 05/14/23 13:57 05/14/23 14:00 Temperature Pulse Rate 82 80 78 Respiratory Rate 28 H 20 Blood Pressure Pulse Oximetry Oxygen Delivery Oxygen Flow Rate Fraction of Inspired Oxygen 05/14/23 14:00 05/14/23 16:00 05/14/23 16:00 Temperature Pulse Rate 78 101 H Respiratory Rate 26 H Blood Pressure Pulse Oximetry 97 Oxygen Delivery Oxygen Flow Rate Fraction of Inspired Oxygen 30 05/14/23 16:00 05/14/23 16:00 05/14/23 18:00 Temperature 36.8 C 36.9 C Pulse Rate 101 H 85 98 Respiratory Rate 26 H 23 H 15 Blood Pressure 164/103 H 149/94 H Pulse Oximetry 97 95 94 Oxygen Delivery High Flow Therapy with Tr Oxygen Flow Rate 6 Fraction of Inspired Oxygen 30 05/14/23 18:25 05/14/23 20:17 05/14/23 20:00 Temperature Pulse Rate 81 87 Respiratory Rate 22 H Blood Pressure Pulse Oximetry 95 Oxygen Delivery High Flow Therapy with Tr Oxygen Flow Rate 30 Fraction of Inspired Oxygen 34 05/14/23 22:00 05/14/23 20:00 05/14/23 23:06 Temperature 37.2 C Pulse Rate 85 82 80 Respiratory Rate 24 H 23 H Blood Pressure 155/97 H 143/94 H Pulse Oximetry 93 95 96 Oxygen Delivery Mechanical Ventilation Oxygen Flow Rate Fraction of Inspired Oxygen 30 05/14/23 22:00 05/15/23 00:00 05/15/23 00:00 Temperature 37.0 C Pulse Rate 78 77 77 Respiratory Rate 22 H Blood Pressure 129/84 Pulse Oximetry 93 Oxygen Delivery Oxygen Flow Rate Fraction of Inspired Oxygen 05/15/23 00:00 05/15/23 02:10 05/15/23 02:18 Temperature Pulse Rate 90 90 Respirat
[2023-05-15] MEDS: MAGNESIUM SULF 1 GM/D5W 100 ML 1 GM/100 ML BAG IVPB (10:55)
[2023-05-15] MEDS: FUROSEMIDE INJ 100 MG/10 ML VIAL 80 MG IV PUSH ×2 (10:56→17:27)
[2023-05-15 11:11] LABS: Glucose Point of Care 127 mg/dl (65-105)
--- NOTE | 2023-05-15 11:29 | PCFNICU ---
ICU Rounding Note: Pt current nutrition is Nepro at 50 ml/hr. Last recorded weight is 95.3 kg, down from 117.9 kg on admit. Bowel Motility:+BM reported 05/24 Labs Reviewed:Cr 4.5,BUN 56, GFR 13, Alb 3.3,Hct 37.1,Hgb 10.9 Meds Noted:Lasix, Atrovent, Synthroid, Pepcid, Lasix. Skin: WNL Additional Notes: Patient current with Trach. PEG tube feedings of Nepro at 50 ml/hr being tolerated per nursing. Flush 30 ml q 4 hours. Plans for dialysis today. Agree with diet orders. Following daily in ICU rounds. Monitor tube feeding orders, tolerance, labs, weights, plan of care every Friday and Friday.
[2023-05-15] MEDS: HEPARIN SODIUM 1,000 UNITS/ML VIAL 1000 UNITS IV PUSH (11:56)
[2023-05-15] MEDS: HEPARIN SODIUM 1,000 UNITS/ML VIAL 500 UNITS IV PUSH (11:57)
[2023-05-15 13:29] LABS: Hepatitis B Core Ab Total Nonreactive (Nonreactive)
--- NOTE | 2023-05-15 14:58 | PCRCNOTE ---
Per Dr. Garcia he would like pt to remain off the vent for bedtime as tolerated and place vent PRN as needed overnight tonight 05/15.
[2023-05-15] MEDS: CEFEPIME 1 GM/NS 50 ML 1 GM/50 ML BAG IVPB (18:20)
[2023-05-15 21:18] LABS: Glucose Point of Care 106 mg/dl (65-105)
[2023-05-16] VITALS (25 sets, daily range): BP systolic 104–160; BP diastolic 60–112; PULSE 72–107; RESP 15–24; TEMP 36.8–37.5; O2SAT 96–100
[2023-05-16 00:18] LABS: Glucose Point of Care 109 mg/dl (65-105)
[2023-05-16] MEDS: ALBUTEROL SULFATE NEB 2.5 MG/3 ML INH INHALATION ×4 (01:40→20:57)
[2023-05-16] MEDS: IPRATROPIUM BR 0.02% INH SOLN 0.5 MG/2.5 ML VIAL INHALATION ×4 (01:40→20:57)
[2023-05-16 05:38] LABS: Hematocrit 38.5 % (42.0-52.0); Hemoglobin 11.3 g/dL (14.0-18.0); Mean Corpuscular HGB Conc 29.4 g/dl (32-36); Mean Corpuscular Hemoglobin 27.6 pg (26-34); Mean Corpuscular Volume 94.1 fl (80-100); Mean Platelet Volume 12.2 fl (7.4-10.4); Platelet Count Result 186 k/mm3 (150-375); Red Blood Count 4.09 M/mm3 (4.6-6.20); Red Cell Distribution Width 15.9 % (11.5-14.5); White Blood Count 6.9 K/mm3 (4.5-10.0)
[2023-05-16 05:51] LABS: Alanine Aminotransferase 40 U/L (6-50); Albumin Level 3.4 g/dL (3.5-5.1); Alkaline Phosphatase 67 U/L (38-126); Anion Gap 5 mmol/L (8-16); Aspartate Amino Transferase 43 U/L (17-59); Bilirubin,Total 0.6 mg/dL (0.2-1.3); Blood Urea Nitrogen 49 mg/dL (9-20); Calcium 8.4 mg/dL (8.4-10.2); Carbon Dioxide 36 mmol/L (22-30); Chloride 97 mmol/L (98-107); Estimated CRCL calculation 21 ml/min; Estimated Glomerular Filt Rate 15; Glucose 113 mg/dL (65-110); Magnesium 2.1 mg/dL (1.6-2.3); Potassium 3.7 mmol/L (3.4-5.0); Sodium 138 mmol/L (137-145)
[2023-05-16 05:54] LABS: Alveolar/Arterial O2 Gradient 52.5 mmHg; Base Excess ABG 8.6 mEq/l (+/-2.0); Carboxyhemoglobin 0.3 % THb (0-2.0); Fractional Inspired Oxygen 30 %; HCO3 ABG 34.2 mEq/l (22.0-26.0); Methemoglobin ABG 0.2 %THb (0-1.5); Oxygen Content ABG 16.8 %vol (16.0-22.0); Oxygen Saturation ABG 97.7 % (95.0-100.0); Oxyhemoglobin 96.5 % THb (90.0-100.0); PCO2 ABG 51.8 mmHg (35.0-45.0); PO2 ABG 100.5 mmHg (80.0-100.0); PO2 FiO2 Ratio Arterial Blood 3.35 %; Total Hemoglobin 12.3 g/dL (12.0-18.0); pH ABG 7.438 (7.350-7.450)
[2023-05-16 05:57] LABS: Device HIGH HUMIDITY; Modified Allen's Test Pass; Site Drawn RIGHT RADIAL
[2023-05-16] MEDS: POTASSIUM CHLORIDE 20 MEQ PACKET (FOR LIQUID) 40 MEQ FEED TUBE (07:54)
[2023-05-16] MEDS: LEVOTHYROXINE SODIUM 112 MCG TABLET PO (07:54)
[2023-05-16] MEDS: CALCIUM CARBONATE (TUMS) 500 MG (200 MG ELEMENTAL) 400 MG PO ×3 (07:54→17:13)
[2023-05-16] MEDS: calcitrioL 0.25 MCG CAPSULE PO (07:55)
[2023-05-16] MEDS: FUROSEMIDE INJ 100 MG/10 ML VIAL 80 MG IV PUSH ×2 (07:55→17:13)
[2023-05-16] MEDS: FAMOTIDINE 20 MG/2 ML VIAL 40 MG IV PUSH ×2 (07:56→21:54)
[2023-05-16] MEDS: PRAVASTATIN SODIUM 20 MG TABLET 40 MG PO (07:56)
--- NOTE | 2023-05-16 08:49 | WPDINTPN ---
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 Will this hospitalization patient has been gradually developing worsening hypoxia and yesterday ABG showed hypercarbia and respiratory acidosis. Patient was transferred to ICU Patient was intubated through the stoma ER physician placed on mechanical ventilation. 05/13 ET tube was changed to a tracheostomy size 8 by ENT Vent settings ABG and chest x-ray reviewed Patient is down to 30 % FiO2 and 5 of PEEP. Continue wean FiO2 Hypercarbia and acidosis has resolved with mechanical ventilation and dialysis 05/14 patient tolerated PSV and was switched to trach shield which he tolerated through the day and patient was placed back on PSV at night 05/15 continue to remove fluid with dialysis and diuresis. Patient has been switched back to trach she this morning and will continue as tolerated 05/16 tolerated remaining off of went for last 24 hours will continue to wean oxygen. Pressure support ventilation only if needed. Continue diuretics and dialysis (2) Sepsis: Code(s): A41.9 - Sepsis, unspecified organism Status: Acute Assessment and Plan: Secondary to cellulitis. WBC normal and patient afebrile The could be component of pneumonia on the chest x-ray although it looks overall mainly fluid overload Patient has been on broad-spectrum antibiotics azithromycin, vancomycin and cefepime Cultures have been negative completed course of azithromycin vancomycin was discontinued and patient was switched to Rocephin 05/14 cultures came back positive for Pseudomonas. Was switched back to cefepime which will be continued Hemodynamically stable and not requiring any vasopressors (3) Cellulitis of lower leg: Code(s): L03.119 - Cellulitis of unspecified part of limb Status: Acute Assessment and Plan: See above (4) Chronic kidney disease (CKD): Qualifiers: Chronic kidney disease stage: stage 4 (severe) Qualified Code(s): N18.4 - Chronic kidney disease, stage 4 (severe) Code(s): N18.9 - Chronic kidney disease, unspecified Status: Acute Assessment and Plan: Patient has chronic kidney disease stage 4 which is likely progressed to end-stage renal disease Patient is being seen by Nephrology Patient was started on hemodialysis on 05/11 Plan to do another session today Dialysis catheter placed by general surgery He is also receiving IV Lasix for hypervolemia and is still producing urine will be continue In fact his urine output improved after he was started on hemodialysis likely secondary to improved cardiac output due to decreased pressure overload of the right ventricle He is getting phosphate binders and calcium Lokelma discontinued 05/15 patient is getting another session of dialysis today Dialysis per Nephrology (5) Generalized edema: Code(s): R60.1 - Generalized edema Status: Acute Assessment and Plan: Anasarca secondary to renal failure, right heart failure, medications Dialysis for fluid removal and diuretics Significant improvement Echo shows LV hypertrophy right ventricular enlargement with systolic dysfunction and volume overload (6) Congestive heart failure: Code(s): I50.9 - Heart failure, unspecified Status: Acute Assessment and Plan: See above (7) Electrolyte abnormality: Code(s): E87.8 - Other disorders of electrolyte and fluid balance, not elsewhere classified Status: Acute Assessment and Plan: Replace low potassium Plan DVT prophylaxis -Lovenox Stress ulcer prophylaxis -Pepcid Nutrition -continue tube feeds Code Status - Full Code Transfer out of ICU today Subjective Date/time seen: 05/16/23 Overnight events reviewed. Afebrile
--- NOTE | 2023-05-16 11:12 | PM.PNNEP ---
Progress Note: A&P Assessment and Plan (1) Chronic kidney disease, stage 5: Code(s): N18.5 - Chronic kidney disease, stage 5 Status: Acute Assessment and Plan: See discussion below (2) PIERCE (acute kidney injury): Code(s): N17.9 - Acute kidney failure, unspecified Status: Acute Assessment and Plan: Acute kidney injury:? Probably decompensated with grade 1 diastolic heart failure acute on chronic.? 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 Anemia of chronic kidney disease Plan: -urinary output is encouraging -Min reassess labs tomorrow morning before deciding on dialysis -due to the numbers may still have any dialysis -stop Actos as this may have been contributory to the profound fluid retention -follow, d/w Dr Garcia, moving out of the ICU Subjective Date/time seen: 05/16/23 11:12 Interval history: Acute renal failure Exubated, awake and alert Exam Narrative: Awake and alert, comfortable breathing, extubated, regular rhythm, equal breath sounds, diminished breath sounds, no rub wheeze, soft nontender abdomen, really decreased anasarca, no tremors Objective Data Vital Signs Vital Signs: Vital Signs - 24 hr 05/15/23 11:18 05/15/23 11:32 05/15/23 11:16 Temperature Pulse Rate 113 H 80 93 Respiratory Rate 26 H Blood Pressure 144/94 H 103/81 Pulse Oximetry 93 Oxygen Delivery High Flow Therapy with Tr Oxygen Flow Rate 30 Fraction of Inspired Oxygen 32 05/15/23 12:09 05/15/23 12:00 05/15/23 12:00 Temperature 37.0 C 37.0 C Pulse Rate 88 108 H 108 H Respiratory Rate 27 H 22 H Blood Pressure 136/111 H 102/73 Pulse Oximetry 96 99 Oxygen Delivery Oxygen Flow Rate Fraction of Inspired Oxygen 05/15/23 12:00 05/15/23 12:00 05/15/23 14:00 Temperature Pulse Rate 88 101 H Respiratory Rate 27 H Blood Pressure Pulse Oximetry 96 Oxygen Delivery High Flow Therapy with Tr Oxygen Flow Rate 6 Fraction of Inspired Oxygen 32 30 05/15/23 14:00 05/15/23 14:55 05/15/23 14:58 Temperature Pulse Rate 101 H 99 99 Respiratory Rate 23 H 21 H 21 H Blood Pressure 110/83 Pulse Oximetry 97 99 Oxygen Delivery High Flow Therapy with Tr Oxygen Flow Rate 30 Fraction of Inspired Oxygen 32 05/15/23 15:09 05/15/23 16:00 05/15/23 16:00 Temperature Pulse Rate 100 100 99 Respiratory Rate 25 H 20 Blood Pressure Pulse Oximetry 100 Oxygen Delivery High Flow Therapy with Tr Oxygen Flow Rate 30 Fraction of Inspired Oxygen 32 05/15/23 16:00 05/15/23 16:00 05/15/23 18:00 Temperature 36.9 C Pulse Rate 99 101 H Respiratory Rate 20 Blood Pressure 103/82 Pulse Oximetry 100 Oxygen Delivery Oxygen Flow Rate Fraction of Inspired Oxygen 32 05/15/23 18:00 05/15/23 20:11 05/15/23 20:12 Temperature Pulse Rate 101 H 99 103 H Respiratory Rate 23 H 20 20 Blood Pressure 103/82 Pulse Oximetry 98 99 Oxygen Delivery High Flow Therapy with Tr Oxygen Flow Rate 30 Fraction of Inspired Oxygen 34 05/15/23 20:00 05/15/23 20:00 05/15/23 20:00 Temperature 36.9 C Pulse Rate 99 101 H Respiratory Rate 19 Blood Pressure 142/106 H Pulse Oximetry 100 100 Oxygen Delivery High Flow Therapy with Tr Oxygen Flow Rate 30 Fraction of Inspired Oxygen 34 05/15/23 22:00 05/15/23 23:53 05/15/23 23:58 Temperature 36.8 C Pulse Rate 74 93 96
--- NOTE | 2023-05-16 11:30 | PCNFU ---
Nutrition Follow-Up Complete: Increased protein energy needs related to mechanical ventilation as evidenced by need for full tube feeding Goal: Meet estimated protein energy needs Patient is progressing towards goal. We will continue current goal. Pt current nutrition is Nepro at 50 ml/hr. Last recorded weight is 90.6 kg, 117.9 kg on admit. Bowel Motility: +Bm reported 05/16 Labs Reviewed:Glu 113, BUn 49, Cr 4.0, Alb 3.4 Meds Noted:Atrovent, Lasix,Synthroid Skin: WNL Additional Notes: Patient current with Trach. No sedation. PEG tube feedings of Nepro at 50 ml/hr providing 1980 kcals/89 gms protein/800 ml water. Tube feedings meeting 100% kcal needs at 20 kcal/kg and 75% protein needs at 1.0-1.2 gm/kg. Recommend adding Prosource once daily for additional protein needs due to Dialysis. Plans for Dialysis today. Flush at 30 ml q 4 hours. Monitor tube feeding orders, tolerance, labs, weights, plan of care Follow up in ICU rounds and reassess Tuesdays and Fridays
--- NOTE | 2023-05-16 16:15 | PM.IMPN ---
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 Will this hospitalization patient has been gradually developing worsening hypoxia and ABG showed hypercarbia and respiratory acidosis. Patient was transferred to ICU Patient was intubated through the stoma ER physician placed on mechanical ventilation. 05/13 ET tube was changed to a tracheostomy size 8 by ENT Vent settings ABG and chest x-ray reviewed Patient is down to 30 % FiO2 and 5 of PEEP. Continue wean FiO2 Hypercarbia and acidosis has resolved with mechanical ventilation and dialysis Vent management per ICU (2) Sepsis: Code(s): A41.9 - Sepsis, unspecified organism Status: Acute Assessment and Plan: Secondary to cellulitis. WBC normal and patient afebrile The could be component of pneumonia on the chest x-ray although it looks overall mainly fluid overload Patient has been on broad-spectrum antibiotics azithromycin, vancomycin and cefepime Cultures have been negative completed course of azithromycin vancomycin was discontinued and patient was switched to Rocephin 05/14 cultures came back positive for Pseudomonas. Was switched back to cefepime which will be continued Hemodynamically stable and not requiring any vasopressors (3) Cellulitis of lower leg: Code(s): L03.119 - Cellulitis of unspecified part of limb Status: Acute Assessment and Plan: See above (4) Chronic kidney disease (CKD): Qualifiers: Chronic kidney disease stage: stage 4 (severe) Qualified Code(s): N18.4 - Chronic kidney disease, stage 4 (severe) Code(s): N18.9 - Chronic kidney disease, unspecified Status: Acute Assessment and Plan: Patient has chronic kidney disease stage 4 which is likely progressed to end-stage renal disease Patient is being seen by Nephrology Patient was started on hemodialysis on 05/11 Plan to do another session today Dialysis catheter placed by general surgery He is also receiving IV Lasix for hypervolemia and is still producing urine will be continue In fact his urine output improved after he was started on hemodialysis likely secondary to improved cardiac output due to decreased pressure overload of the right ventricle He is getting phosphate binders and calcium Lokelma discontinued 05/15 patient is getting another session of dialysis today Dialysis per Nephrology (5) Generalized edema: Code(s): R60.1 - Generalized edema Status: Acute Assessment and Plan: Anasarca secondary to renal failure, right heart failure, medications Dialysis for fluid removal and diuretics Significant improvement Echo shows LV hypertrophy right ventricular enlargement with systolic dysfunction and volume overload (6) Congestive heart failure: Code(s): I50.9 - Heart failure, unspecified Status: Acute Assessment and Plan: See above (7) Electrolyte abnormality: Code(s): E87.8 - Other disorders of electrolyte and fluid balance, not elsewhere classified Status: Acute Assessment and Plan: Replace low potassium Plan DVT prophylaxis -Lovenox Stress ulcer prophylaxis -Pepcid Nutrition -continue tube feeds Code Status - Full Code Subjective Date/time seen: 05/16/23 16:15 Interval history: Chart reviewed. Denies any new complaints. Wants to eat. Planned dialysis today Review of Systems Review of Systems: All systems reviewed & are unremarkable except as noted in HPI and below Exam Narrative: General: Pt is with tracheostomy in situ mechanical ventilation Lungs/Chest: Trachea central Coarse BS B/L, No crackles or wheezing. Patient has past tracheostomy tube placement size 8 Shiley Cardiac: RRR. Normal S1 S2. No murmurs Circulation: Pedal
[2023-05-16] MEDS: CEFEPIME 1 GM/NS 50 ML 1 GM/50 ML BAG IVPB (17:14)
--- NOTE | 2023-05-16 18:20 | PC.NURSE ---
Patient transferred to 212 per bed. vehicle monitor technician applied and reading ST. Oriented to unit policies and call light. Report given to Linda Wiseman RN. All questions answered.
[2023-05-16 21:18] LABS: Glucose Point of Care 119 mg/dl (65-105)
[2023-05-17] VITALS (37 sets, daily range): BP systolic 83–175; BP diastolic 47–107; PULSE 63–111; RESP 16–18; TEMP 36.2–37; O2SAT 88–100
[2023-05-17 01:04] LABS: Glucose Point of Care 95 mg/dl (65-105)
[2023-05-17] MEDS: ALBUTEROL SULFATE NEB 2.5 MG/3 ML INH INHALATION ×4 (02:04→21:33)
[2023-05-17] MEDS: IPRATROPIUM BR 0.02% INH SOLN 0.5 MG/2.5 ML VIAL INHALATION ×4 (02:04→21:33)
[2023-05-17] MEDS: LEVOTHYROXINE SODIUM 112 MCG TABLET PO (05:33)
[2023-05-17 05:51] LABS: Hematocrit 37.8 % (42.0-52.0); Hemoglobin 11.1 g/dL (14.0-18.0); Mean Corpuscular HGB Conc 29.4 g/dl (32-36); Mean Corpuscular Hemoglobin 27.6 pg (26-34); Platelet Count Result 173 k/mm3 (150-375); Red Blood Count 4.02 M/mm3 (4.6-6.20); Red Cell Distribution Width 15.6 % (11.5-14.5); White Blood Count 6.3 K/mm3 (4.5-10.0)
[2023-05-17 06:03] LABS: Alanine Aminotransferase 40 U/L (6-50); Albumin Level 3.5 g/dL (3.5-5.1); Alkaline Phosphatase 70 U/L (38-126); Anion Gap 8 mmol/L (8-16); Aspartate Amino Transferase 43 U/L (17-59); Bilirubin,Total 0.8 mg/dL (0.2-1.3); Blood Urea Nitrogen 58 mg/dL (9-20); Calcium 8.9 mg/dL (8.4-10.2); Carbon Dioxide 35 mmol/L (22-30); Chloride 96 mmol/L (98-107); Estimated CRCL calculation 16 ml/min; Estimated Glomerular Filt Rate 13; Glucose 82 mg/dL (65-110); Potassium 3.6 mmol/L (3.4-5.0); Sodium 139 mmol/L (137-145)
[2023-05-17 07:09] LABS: Glucose Point of Care 78 mg/dl (65-105)
[2023-05-17 08:24] LABS: Glucose Point of Care 84 mg/dl (65-105)
--- NOTE | 2023-05-17 09:33 | PM.PNNEP ---
Progress Note: A&P Assessment and Plan (1) Chronic kidney disease, stage 5: Code(s): N18.5 - Chronic kidney disease, stage 5 Status: Acute Assessment and Plan: See discussion below (2) PIERCE (acute kidney injury): Code(s): N17.9 - Acute kidney failure, unspecified Status: Acute Assessment and Plan: Acute kidney injury:? Probably decompensated with grade 1 diastolic heart failure acute on chronic.? 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 Anemia of chronic kidney disease Plan: -new baseline elevation of creatinine and BUN overnight, plan is to continue with dialysis -plan on getting a tunneled CVC, recommend General Surgical/vascular surgical consultation to get a tunneled dialysis catheter placed -placement in outpatient dialysis unit -for the time being will be treated as acute kidney injury on top of chronic kidney disease, time will tell if there is sufficient recovery to stay off dialysis -he has a decreased muscle mass overall and this elevation of creatinine remains significant. -stop intravenous Lasix, add renal multivitamin, continue p.o. calcitriol -continue with measures Subjective Date/time seen: 05/17/23 09:33 Interval history: Acute renal failure Tube still in place but on continuous O2 flow and not on machine Exam Narrative: Correction for yesterday's note: Patient was off ventilator but tube is still present through his tracheostomy. Front of a well-nourished, tube still going through his tracheostomy, on continuous flow oxygen, JVDs had dizzy, regular rate rhythm, no gallop, no rub, equal breath sounds, nor otherwise, soft nontender abdomen, diminished edema, alert and oriented to situation, at asking questions by mouth words, edema greatly diminished Objective Data Vital Signs Vital Signs: Vital Signs - 24 hr 05/16/23 10:00 05/16/23 10:00 05/16/23 12:00 Temperature Pulse Rate 98 98 97 Respiratory Rate 20 Blood Pressure Pulse Oximetry 98 Oxygen Delivery Oxygen Flow Rate Fraction of Inspired Oxygen 05/16/23 12:00 05/16/23 12:00 05/16/23 14:00 Temperature 36.9 C Pulse Rate 97 97 75 Respiratory Rate 19 19 21 H Blood Pressure 136/94 H Pulse Oximetry 98 98 Oxygen Delivery High Flow Nasal Cannula Oxygen Flow Rate 30 Fraction of Inspired Oxygen 30 05/16/23 14:00 05/16/23 14:00 05/16/23 14:21 Temperature Pulse Rate 101 H 101 H 99 Respiratory Rate 22 H 18 Blood Pressure 137/90 Pulse Oximetry 100 99 Oxygen Delivery High Flow Therapy with Tr Oxygen Flow Rate 30 Fraction of Inspired Oxygen 30 05/16/23 14:35 05/16/23 16:00 05/16/23 16:00 Temperature Pulse Rate 72 97 97 Respiratory Rate 18 19 Blood Pressure Pulse Oximetry 97 Oxygen Delivery High Flow Therapy with Tr Oxygen Flow Rate 30 Fraction of Inspired Oxygen 30 05/16/23 16:00 05/16/23 18:00 05/16/23 18:00 Temperature 36.9 C 37.1 C Pulse Rate 97 106 H 106 H Respiratory Rate 19 16 Blood Pressure 150/100 H 158/112 H Pulse Oximetry 97 100 Oxygen Delivery Oxygen Flow Rate Fraction of Inspired Oxygen 05/16/23 20:20 05/16/23 20:58 05/16/23 21:21 Temperature 36.8 C Pulse Rate 85 101 H 82 Respiratory Rate 18 18 Blood Pressure 144/95 H Pulse Oximetry 96 99 Oxygen Delivery High Flow Therapy with Tr Oxygen Flow Rate 30 Fraction of Inspired Oxygen 30
[2023-05-17] MEDS: CALCIUM CARBONATE (TUMS) 500 MG (200 MG ELEMENTAL) 400 MG PO ×3 (10:40→18:52)
[2023-05-17] MEDS: FAMOTIDINE 20 MG/2 ML VIAL 40 MG IV PUSH ×2 (10:40→20:49)
[2023-05-17] MEDS: PRAVASTATIN SODIUM 20 MG TABLET 40 MG PO (10:41)
[2023-05-17 12:05] LABS: Glucose Point of Care 81 mg/dl (65-105)
--- NOTE | 2023-05-17 13:32 | PCSTNOTE ---
Bedside swallowing evaluation. Patient seen bedside sitting upright in bed with head of bed elevated. Zina tube in place. Modified oral peripheral examination completed, oral mechanism structurally and functionally within normal limits except patient is edentulous. 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 Trials of thin liquid (water) by cup and pureed consistency (applesauce) by spoon were given in uncontrolled amounts. Patient held cup independently and also fed self with spoon independently. No difficulty swallowing observed. No signs of leakage through tissue barrier between esophagus and trach observed. Recommendation: Soft and bite sized diet and thin (regular) liquids. Patient is not at risk for aspiration due to surgical separation of esophagus and trachea from laryngectomy. No further speech therapy is recommended at this time. Thank you for the referral of this patient.
--- NOTE | 2023-05-17 13:41 | PM.IMPN ---
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 Will this hospitalization patient has been gradually developing worsening hypoxia and ABG showed hypercarbia and respiratory acidosis. Patient was transferred to ICU Patient was intubated through the stoma ER physician placed on mechanical ventilation. 05/13 ET tube was changed to a tracheostomy size 8 by ENT Vent settings ABG and chest x-ray reviewed Patient is down to 30 % FiO2 and 5 of PEEP. Continue wean FiO2 Hypercarbia and acidosis has resolved with mechanical ventilation and dialysis Patient has been off vent and back to Airvo humidified (2) Sepsis: Code(s): A41.9 - Sepsis, unspecified organism Status: Acute Assessment and Plan: Secondary to cellulitis. WBC normal and patient afebrile The could be component of pneumonia on the chest x-ray although it looks overall mainly fluid overload Patient has been on broad-spectrum antibiotics azithromycin, vancomycin and cefepime Cultures have been negative completed course of azithromycin vancomycin was discontinued and patient was switched to Rocephin 05/14 cultures came back positive for Pseudomonas. Was switched back to cefepime which has completed treatment Hemodynamically stable and not requiring any vasopressors (3) Cellulitis of lower leg: Code(s): L03.119 - Cellulitis of unspecified part of limb Status: Acute Assessment and Plan: See above (4) Chronic kidney disease (CKD): Qualifiers: Chronic kidney disease stage: stage 4 (severe) Qualified Code(s): N18.4 - Chronic kidney disease, stage 4 (severe) Code(s): N18.9 - Chronic kidney disease, unspecified Status: Acute Assessment and Plan: Patient has chronic kidney disease stage 4 which is likely progressed to end-stage renal disease Patient is being seen by Nephrology Patient was started on hemodialysis on 05/11 Plan to do another session today Dialysis catheter placed by general surgery He is also receiving IV Lasix for hypervolemia and is still producing urine will be continue In fact his urine output improved after he was started on hemodialysis likely secondary to improved cardiac output due to decreased pressure overload of the right ventricle He is getting phosphate binders and calcium Lokelma discontinued 05/15 patient is getting another session of dialysis today Dialysis per Nephrology and getting outpatient setup Plan on tunneled CVC for dialysis catheter placement and outpatient dialysis unit set up. Will re-consult General surgery (5) Generalized edema: Code(s): R60.1 - Generalized edema Status: Acute Assessment and Plan: Anasarca secondary to renal failure, right heart failure, medications Dialysis for fluid removal and diuretics Significant improvement Echo shows LV hypertrophy right ventricular enlargement with systolic dysfunction and volume overload (6) Congestive heart failure: Code(s): I50.9 - Heart failure, unspecified Status: Acute Assessment and Plan: See above (7) Electrolyte abnormality: Code(s): E87.8 - Other disorders of electrolyte and fluid balance, not elsewhere classified Status: Acute Assessment and Plan: Replace low potassium Plan DVT prophylaxis -Lovenox Stress ulcer prophylaxis -Pepcid Nutrition -continue tube feeds speech to see and restart oral diet Code Status - Full Code Subjective Date/time seen: 05/17/23 13:41 Interval history: Feels okay. Denies any new complaint. Breathing is better. Legs had got better. No fever chills. Vitals stable. Evaluated by the speech therapy. Down to 30 liter/minute on 21% oxygen. Review of Systems Review of Systems: All systems re
[2023-05-17] MEDS: calcitrioL 0.25 MCG CAPSULE PO (13:59)
[2023-05-17 16:38] LABS: Glucose Point of Care 108 mg/dl (65-105)
[2023-05-17 20:26] LABS: Glucose Point of Care 147 mg/dl (65-105)
[2023-05-18] VITALS (18 sets, daily range): BP systolic 138–168; BP diastolic 82–101; PULSE 75–90; RESP 16–28; TEMP 36.3–36.9; O2SAT 94–100
[2023-05-18] MEDS: ALBUTEROL SULFATE NEB 2.5 MG/3 ML INH INHALATION ×4 (02:50→20:20)
[2023-05-18] MEDS: IPRATROPIUM BR 0.02% INH SOLN 0.5 MG/2.5 ML VIAL INHALATION ×4 (02:50→20:20)
[2023-05-18 04:18] LABS: Glucose Point of Care 100 mg/dl (65-105)
[2023-05-18] MEDS: LEVOTHYROXINE SODIUM 112 MCG TABLET PO (06:18)
[2023-05-18 06:23] LABS: Hematocrit 35.1 % (42.0-52.0); Hemoglobin 10.1 g/dL (14.0-18.0); Mean Corpuscular HGB Conc 28.8 g/dl (32-36); Mean Corpuscular Hemoglobin 27.1 pg (26-34); Mean Corpuscular Volume 94.1 fl (80-100); Platelet Count Result 162 k/mm3 (150-375); Red Blood Count 3.73 M/mm3 (4.6-6.20); Red Cell Distribution Width 15.5 % (11.5-14.5); White Blood Count 7.2 K/mm3 (4.5-10.0)
[2023-05-18 06:43] LABS: Alanine Aminotransferase 36 U/L (6-50); Albumin Level 3.4 g/dL (3.5-5.1); Alkaline Phosphatase 66 U/L (38-126); Anion Gap 7 mmol/L (8-16); Aspartate Amino Transferase 39 U/L (17-59); Bilirubin,Total 0.7 mg/dL (0.2-1.3); Blood Urea Nitrogen 54 mg/dL (9-20); Calcium 8.8 mg/dL (8.4-10.2); Carbon Dioxide 33 mmol/L (22-30); Chloride 95 mmol/L (98-107); Estimated CRCL calculation 18 ml/min; Estimated Glomerular Filt Rate 15; Glucose 86 mg/dL (65-110); Potassium 3.8 mmol/L (3.4-5.0); Sodium 135 mmol/L (137-145)
[2023-05-18 08:11] LABS: Glucose Point of Care 78 mg/dl (65-105)
--- NOTE | 2023-05-18 09:12 | PM.PNNEP ---
Progress Note: A&P Assessment and Plan (1) Chronic kidney disease, stage 5: Code(s): N18.5 - Chronic kidney disease, stage 5 Status: Acute Assessment and Plan: See discussion below (2) PIERCE (acute kidney injury): Code(s): N17.9 - Acute kidney failure, unspecified Status: Acute Assessment and Plan: Acute kidney injury:? Chronic kidney disease stage 5 Underlying cause of the chronic kidney disease diabetes mellitus with nephropathy Probable benign essential hypertensive renal disease renal failure History of secondary hyperparathyroidism for which he was on calcitriol therapy, maintaining calcitriol in [facility] probably combination of worsened renal function, pioglitazone, cor pulmonale with right ventricular systolic dysfunction. Anemia of chronic kidney disease Plan: -a baseline renal numbers, will keep patient on dialysis -for discharge he needs to get a tunneled CVC -can remove Hay catheter, see if he is retaining any urine thereafter -dialysis on Friday -discharge planning Subjective Date/time seen: 05/18/23 09:12 Interval history: Acute renal failure On trach collar alone today. Feels better, sitting upright and breathing comfortably, no complaints indicated Exam Narrative: Tube out, on trach collar today, comfortable with breathing at rest JVDs hard to see, regular rate rhythm, no gallop, no rub, equal breath sounds, nor otherwise, soft nontender abdomen, diminished edema, alert and oriented to situation, at asking questions by mouth words, edema greatly diminished. Hay catheter in place Objective Data Vital Signs Vital Signs: Vital Signs - 24 hr 05/17/23 11:42 05/17/23 13:41 05/17/23 13:47 Temperature 36.6 C Pulse Rate 78 83 82 Respiratory Rate 18 18 Blood Pressure 133/89 Pulse Oximetry 95 95 Oxygen Delivery High Flow Therapy with Tr Oxygen Flow Rate 30 Fraction of Inspired Oxygen 25 05/17/23 13:55 05/17/23 14:10 05/17/23 14:17 Temperature 36.6 C Pulse Rate 80 100 102 H Respiratory Rate 18 18 Blood Pressure 148/99 H 133/94 H Pulse Oximetry Oxygen Delivery Oxygen Flow Rate Fraction of Inspired Oxygen 05/17/23 14:30 05/17/23 14:45 05/17/23 15:00 Temperature Pulse Rate 103 H 111 H 108 H Respiratory Rate Blood Pressure 83/60 L 175/107 H 147/100 H Pulse Oximetry Oxygen Delivery Oxygen Flow Rate Fraction of Inspired Oxygen 05/17/23 15:15 05/17/23 15:30 05/17/23 15:45 Temperature Pulse Rate 102 H 100 64 Respiratory Rate Blood Pressure 133/80 102/67 108/61 Pulse Oximetry Oxygen Delivery Oxygen Flow Rate Fraction of Inspired Oxygen 05/17/23 16:00 05/17/23 15:27 05/17/23 16:15 Temperature Pulse Rate 104 H 80 71 Respiratory Rate Blood Pressure 117/60 97/78 L Pulse Oximetry 94 Oxygen Delivery High Flow Therapy with Tr Oxygen Flow Rate 30 Fraction of Inspired Oxygen 60 05/17/23 16:58 05/17/23 16:30 05/17/23 16:45 Temperature 36.7 C Pulse Rate 82 63 85 Respiratory Rate 18 Blood Pressure 117/68 107/47 L 109/62 Pulse Oximetry Oxygen Delivery Oxygen Flow Rate Fraction of Inspired Oxygen 05/17/23 20:06 05/17/23 21:35 05/17/23 21:50 Temperature 36.4 C Pulse Rate 90 84 Respiratory Rate 18 18 Blood Pressure 105/69 Pulse Oximetry 93 88 L Oxygen Delivery Room Air Oxygen Flow Rate Fraction of Inspired Oxygen 05/17/23 23:29 05/17/23 20:30 05/18/23 02:52 Temperature 36.2 C L Pulse Rate 82 85 Respiratory Rate 18 18 Blood Pressure 152/89 H Pulse Oximetry 100 100 Oxygen Delivery High Flow Therapy with Tr Oxygen Flow Rate 30 Fraction of Inspired Oxygen 30 05/17/23 22:15 05/17/23 21:48 05/18/23 03:19 Temperature 36.4 C Pulse Rate 86 90 Respiratory Rate 18 17 Blood Pressure 164/96 H Pulse Oximetry 93 99 Oxygen Delivery High Flow Therapy with Tr Oxygen
[2023-05-18] MEDS: FAMOTIDINE 20 MG/2 ML VIAL 40 MG IV PUSH ×2 (10:44→21:58)
[2023-05-18] MEDS: calcitrioL 0.25 MCG CAPSULE PO (10:45)
[2023-05-18] MEDS: VITAMIN B CMPLX/VIT C/FOLIC AC 1 CAPSULE 1 CAP PO (10:45)
[2023-05-18] MEDS: PRAVASTATIN SODIUM 20 MG TABLET 40 MG PO (10:45)
[2023-05-18] MEDS: CALCIUM CARBONATE (TUMS) 500 MG (200 MG ELEMENTAL) 400 MG PO ×2 (10:45→17:54)
[2023-05-18 11:18] LABS: Glucose Point of Care 137 mg/dl (65-105)
--- NOTE | 2023-05-18 13:13 | PM.IMPN ---
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 Will this hospitalization patient has been gradually developing worsening hypoxia and ABG showed hypercarbia and respiratory acidosis. Patient was transferred to ICU Patient was intubated through the stoma ER physician placed on mechanical ventilation. 05/13 ET tube was changed to a tracheostomy size 8 by ENT Vent settings ABG and chest x-ray reviewed Patient is down to 30 % FiO2 and 5 of PEEP. Continue wean FiO2 Hypercarbia and acidosis has resolved with mechanical ventilation and dialysis Patient has been off vent and back to Airvo humidified (2) Sepsis: Code(s): A41.9 - Sepsis, unspecified organism Status: Acute Assessment and Plan: Secondary to cellulitis. WBC normal and patient afebrile The could be component of pneumonia on the chest x-ray although it looks overall mainly fluid overload Patient has been on broad-spectrum antibiotics azithromycin, vancomycin and cefepime Cultures have been negative completed course of azithromycin vancomycin was discontinued and patient was switched to Rocephin 05/14 cultures came back positive for Pseudomonas. Was switched back to cefepime which has completed treatment Hemodynamically stable and not requiring any vasopressors (3) Cellulitis of lower leg: Code(s): L03.119 - Cellulitis of unspecified part of limb Status: Acute Assessment and Plan: See above (4) Chronic kidney disease (CKD): Qualifiers: Chronic kidney disease stage: stage 4 (severe) Qualified Code(s): N18.4 - Chronic kidney disease, stage 4 (severe) Code(s): N18.9 - Chronic kidney disease, unspecified Status: Acute Assessment and Plan: Patient has chronic kidney disease stage 4 which is likely progressed to end-stage renal disease Patient is being seen by Nephrology Patient was started on hemodialysis on 05/11 Plan to do another session today Dialysis catheter placed by general surgery He is also receiving IV Lasix for hypervolemia and is still producing urine will be continue In fact his urine output improved after he was started on hemodialysis likely secondary to improved cardiac output due to decreased pressure overload of the right ventricle He is getting phosphate binders and calcium Lokelma discontinued 05/15 patient is getting another session of dialysis today Dialysis per Nephrology and getting outpatient setup Plan on tunneled CVC for dialysis catheter placement and outpatient dialysis unit set up. Re-consult General surgery planned for Friday Will remove Hay catheter today (5) Generalized edema: Code(s): R60.1 - Generalized edema Status: Acute Assessment and Plan: Anasarca secondary to renal failure, right heart failure, medications Dialysis for fluid removal and diuretics Significant improvement Echo shows LV hypertrophy right ventricular enlargement with systolic dysfunction and volume overload (6) Congestive heart failure: Code(s): I50.9 - Heart failure, unspecified Status: Acute Assessment and Plan: See above (7) Electrolyte abnormality: Code(s): E87.8 - Other disorders of electrolyte and fluid balance, not elsewhere classified Status: Acute Assessment and Plan: Replace low potassium Plan DVT prophylaxis -Lovenox Stress ulcer prophylaxis -Pepcid Nutrition -continue tube feeds speech evaluated and started on oral diet. Tube feeds. Code Status - Full Code Subjective Date/time seen: 05/18/23 13:13 Interval history: No overnight events. Feels okay. Breathing is better. Leg swelling has improved. Discussed with physical trainer. Review of Systems Review of Systems: All systems reviewed &
[2023-05-18 15:41] LABS: Glucose Point of Care 86 mg/dl (65-105)
[2023-05-18 20:17] LABS: Glucose Point of Care 115 mg/dl (65-105)
[2023-05-18 23:34] LABS: Glucose Point of Care 87 mg/dl (65-105)
[2023-05-19] VITALS (17 sets, daily range): BP systolic 99–151; BP diastolic 59–92; PULSE 66–95; RESP 16–18; TEMP 36.2–36.8; O2SAT 97–100
[2023-05-19] MEDS: LOSARTAN POTASSIUM 100 MG TABLET PO (00:26)
[2023-05-19] MEDS: ALBUTEROL SULFATE NEB 2.5 MG/3 ML INH INHALATION ×4 (03:00→20:01)
[2023-05-19] MEDS: IPRATROPIUM BR 0.02% INH SOLN 0.5 MG/2.5 ML VIAL INHALATION ×4 (03:00→20:00)
[2023-05-19 03:50] LABS: Glucose Point of Care 88 mg/dl (65-105)
[2023-05-19] MEDS: LEVOTHYROXINE SODIUM 112 MCG TABLET PO (05:40)
[2023-05-19 05:53] LABS: Hematocrit 34.8 % (42.0-52.0); Hemoglobin 10.3 g/dL (14.0-18.0); Mean Corpuscular HGB Conc 29.6 g/dl (32-36); Mean Corpuscular Hemoglobin 27.3 pg (26-34); Mean Corpuscular Volume 92.3 fl (80-100); Mean Platelet Volume 12.6 fl (7.4-10.4); Platelet Count Result 176 k/mm3 (150-375); Red Blood Count 3.77 M/mm3 (4.6-6.20); Red Cell Distribution Width 15.3 % (11.5-14.5); White Blood Count 6.8 K/mm3 (4.5-10.0)
[2023-05-19 06:14] LABS: Alanine Aminotransferase 34 U/L (6-50); Albumin Level 3.3 g/dL (3.5-5.1); Alkaline Phosphatase 72 U/L (38-126); Anion Gap 6 mmol/L (8-16); Aspartate Amino Transferase 38 U/L (17-59); Bilirubin,Total 0.6 mg/dL (0.2-1.3); Blood Urea Nitrogen 61 mg/dL (9-20); Calcium 8.9 mg/dL (8.4-10.2); Carbon Dioxide 32 mmol/L (22-30); Chloride 93 mmol/L (98-107); Estimated CRCL calculation 17 ml/min; Estimated Glomerular Filt Rate 14; Glucose 81 mg/dL (65-110); Potassium 3.4 mmol/L (3.4-5.0); Sodium 131 mmol/L (137-145)
--- NOTE | 2023-05-19 06:47 | PM.PNGS ---
Progress Note: A&P Assessment and Plan (1) CRF (chronic renal failure): Code(s): N18.9 - Chronic kidney disease, unspecified Status: Acute (2) Admission for fitting and adjustment of vascular catheter: Code(s): Z45.2 - Encounter for adjustment and management of vascular access device Status: Acute Assessment and Plan: PLAN TO PLACE TUNNELED DIALYSIS CATHETER UNDER FLUOROSCOPY IN THE OPERATING ROOM TOMORROW AROUND 1:30. Subjective Subjective Date/Time Seen: 05/19/23 06:47 Objective Data Vital Signs Vital Signs: Vital Signs - 24 hr 05/18/23 07:45 05/18/23 08:30 05/18/23 08:39 Temperature 36.3 C L Pulse Rate 75 82 Respiratory Rate 18 18 Blood Pressure 138/82 Pulse Oximetry 100 94 Oxygen Delivery High Flow Therapy with Tr Oxygen Flow Rate 30 Fraction of Inspired Oxygen 35 05/18/23 08:44 05/18/23 11:04 05/18/23 15:16 Temperature 36.5 C Pulse Rate 81 80 76 Respiratory Rate 18 18 18 Blood Pressure 140/88 Pulse Oximetry 100 Oxygen Delivery Oxygen Flow Rate Fraction of Inspired Oxygen 05/18/23 15:23 05/18/23 15:32 05/18/23 15:41 Temperature 36.7 C Pulse Rate 76 77 77 Respiratory Rate 18 18 28 H Blood Pressure 152/97 H Pulse Oximetry 98 100 Oxygen Delivery High Flow Therapy with Tr Oxygen Flow Rate 30 Fraction of Inspired Oxygen 30 05/18/23 08:00 05/18/23 20:22 05/18/23 20:43 Temperature Pulse Rate 79 80 Respiratory Rate 18 18 Blood Pressure Pulse Oximetry 100 Oxygen Delivery High Flow Therapy with Tr Oxygen Flow Rate 25 Fraction of Inspired Oxygen 30 05/18/23 19:45 05/18/23 19:45 05/18/23 23:25 Temperature 36.9 C Pulse Rate 80 76 Respiratory Rate 16 16 Blood Pressure 168/100 H 152/101 H 159/100 H Pulse Oximetry 100 99 Oxygen Delivery Oxygen Flow Rate Fraction of Inspired Oxygen 05/18/23 23:47 05/18/23 20:00 05/19/23 03:01 Temperature Pulse Rate 77 80 Respiratory Rate 18 18 Blood Pressure Pulse Oximetry 100 100 Oxygen Delivery High Flow Therapy with Tr High Flow Therapy with Tr Oxygen Flow Rate 30 30 Fraction of Inspired Oxygen 30 30 05/19/23 03:02 05/19/23 03:40 Temperature 36.6 C Pulse Rate 79 77 Respiratory Rate 18 16 Blood Pressure 135/87 Pulse Oximetry 100 97 Oxygen Delivery High Flow Therapy with Tr Oxygen Flow Rate 30 Fraction of Inspired Oxygen 30 Intake/Output Intake/Output: Intake & Output 05/16/23 05/17/23 05/18/23 05/19/23 23:59 23:59 23:59 23:59 Intake Total 0896 138 8343 100 Output Total 1800 3457 600 [facility] [phone] 100 Meds/Results Medications: Active Medications Generic Name Dose Route Start Last Admin Trade Name Freq PRN Reason Stop Dose Admin Acetaminophen 1,000 mg 05/10/23 01:54 05/10/23 09:11 Acetaminophen 500 Mg Tablet PO 1,000 mg Q6H PRN Administration Mild Pain (1-3) or Fever Albuterol 2.5 mg 05/10/23 20:00 05/19/23 03:00 Albuterol Sulfate Neb 2.5 Mg/3 Ml Inh INHALATION 2.5 mg Q6HRT ISELA Administration Calcitriol 0.25 mcg 05/09/23 09:00 05/18/23 10:45 Calcitriol 0.25 Mcg Capsule PO 0.25 mcg DAILY ISELA Administration Calcium Carbonate 400 mg 05/09/23 17:00 05/18/23 17:54 Calcium Carbonate (Tums) 500 Mg (200 Mg Elemental) PO 400 mg TIDWM ISELA Administration Dextrose 12.5 gm 05/08/23 14:21 05/11/23 12:42 Dextrose 50% 25 Gm/50 Ml Syringe IV PUSH 12.5 gm PRN PRN Administration Hypoglycemia Protocol Famotidine 40 mg 05/08/23 21:00 05/18/23 21:58 Famotidine 20 Mg/2 Ml Vial IV PUSH 40 mg Q12HR ISELA Administration Glucagon 1 mg 05/08/23 14:21 Glucagon For Inj 1 Mg Vial IM PRN PRN Hypoglycemia Protocol Glucose 15 gm 05/08/23 14:21 Glucose Oral Gel 15 Gm Of Glucse In 37.5 Gm Tube PO PRN PRN Hypoglycemia Protocol Dextrose 1,000 mls @ 100 mls/hr 05/08/23 14:21 Dextrose 5% 1,000
[2023-05-19 07:39] LABS: Glucose Point of Care 82 mg/dl (65-105)
[2023-05-19] MEDS: CALCIUM CARBONATE (TUMS) 500 MG (200 MG ELEMENTAL) 400 MG PO ×3 (09:16→16:55)
[2023-05-19] MEDS: PRAVASTATIN SODIUM 20 MG TABLET 40 MG PO (09:16)
[2023-05-19] MEDS: FAMOTIDINE 20 MG/2 ML VIAL 40 MG IV PUSH ×2 (09:16→20:07)
[2023-05-19] MEDS: VITAMIN B CMPLX/VIT C/FOLIC AC 1 CAPSULE 1 CAP PO (09:17)
[2023-05-19] MEDS: calcitrioL 0.25 MCG CAPSULE PO (09:17)
[2023-05-19 11:36] LABS: Glucose Point of Care 89 mg/dl (65-105)
--- NOTE | 2023-05-19 14:39 | P.PNIM_ITS ---
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 Will this hospitalization patient has been gradually developing worsening hypoxia and ABG showed hypercarbia and respiratory acidosis. Patient was transferred to ICU Patient was intubated through the stoma ER physician placed on mechanical ventilation. 05/13 ET tube was changed to a tracheostomy size 8 by ENT Vent settings ABG and chest x-ray reviewed Patient is down to 30 % FiO2 and 5 of PEEP. Continue wean FiO2 Hypercarbia and acidosis has resolved with mechanical ventilation and dialysis Patient has been off vent and back to Airvo humidified (2) Sepsis: Code(s): A41.9 - Sepsis, unspecified organism Status: Acute Assessment and Plan: Secondary to cellulitis. WBC normal and patient afebrile The could be component of pneumonia on the chest x-ray although it looks overall mainly fluid overload Patient has been on broad-spectrum antibiotics azithromycin, vancomycin and cefepime Cultures have been negative completed course of azithromycin vancomycin was discontinued and patient was switched to Rocephin 05/14 cultures came back positive for Pseudomonas. Was switched back to cefepime which has completed treatment Hemodynamically stable and not requiring any vasopressors (3) Cellulitis of lower leg: Code(s): L03.119 - Cellulitis of unspecified part of limb Status: Acute Assessment and Plan: See above (4) Chronic kidney disease (CKD): Qualifiers: Chronic kidney disease stage: stage 4 (severe) Qualified Code(s): N18.4 - Chronic kidney disease, stage 4 (severe) Code(s): N18.9 - Chronic kidney disease, unspecified Status: Acute Assessment and Plan: Patient has chronic kidney disease stage 4 which is likely progressed to end- stage renal disease Patient is being seen by Nephrology Patient was started on hemodialysis on 05/11 Plan to do another session today Dialysis catheter placed by general surgery He is also receiving IV Lasix for hypervolemia and is still producing urine will be continue In fact his urine output improved after he was started on hemodialysis likely secondary to improved cardiac output due to decreased pressure overload of the right ventricle He is getting phosphate binders and calcium Lokelma discontinued 05/15 patient is getting another session of dialysis today Dialysis per Nephrology and getting outpatient setup Plan on tunneled CVC for dialysis catheter placement and outpatient dialysis unit set up. Re-consult General surgery planned for Friday Hay catheter removed (5) Generalized edema: Code(s): R60.1 - Generalized edema Status: Acute Assessment and Plan: Anasarca secondary to renal failure, right heart failure, medications Dialysis for fluid removal and diuretics Significant improvement Echo shows LV hypertrophy right ventricular enlargement with systolic dysfunction and volume overload (6) Congestive heart failure: Code(s): I50.9 - Heart failure, unspecified Status: Acute Assessment and Plan: See above (7) Electrolyte abnormality: Code(s): E87.8 - Other disorders of electrolyte and fluid balance, not elsewhere classified Status: Acute Assessment and Plan: Replace low potassium Plan DVT prophylaxis -Lovenox Stress ulcer prophylaxis -Pepcid Nut
[2023-05-19] MEDS: carvediloL 12.5 MG TABLET PO (20:04)
--- NOTE | 2023-05-19 23:54 | PC.NURSE ---
Addendum entered by Melany Gillette RN 05/19/23 23:55: wrong patient Original Note: trazodone ordered for restlessness per Md jamison
[2023-05-20] VITALS (39 sets, daily range): BP systolic 80–163; BP diastolic 40–98; PULSE 57–92; RESP 12–24; TEMP 36–37; O2SAT 85–100
--- NOTE | 2023-05-20 00:27 | PC.NURSE ---
This patient, Bubba Saxena, was transferred to [facility] Surg Room 322-01. Patient/family oriented to hospital policies and general routines including ID bracelet, bed and alarms, visiting hours, pain management, procedures, bathroom and other care routines, personal items, smoking policy, room service/diet, and visiting hours. Information on how to activate the Rapid Response Team has been discussed. Patient/Family are encouraged to report perceived risks to care and to ask questions if they do not understand what they are told or what they should do.
[2023-05-20] MEDS: ALBUTEROL SULFATE NEB 2.5 MG/3 ML INH INHALATION ×3 (01:45→20:54)
[2023-05-20] MEDS: IPRATROPIUM BR 0.02% INH SOLN 0.5 MG/2.5 ML VIAL INHALATION ×3 (01:45→20:54)
[2023-05-20] MEDS: LEVOTHYROXINE SODIUM 112 MCG TABLET PO (05:46)
[2023-05-20 06:41] LABS: Hematocrit 32.7 % (42.0-52.0); Hemoglobin 9.9 g/dL (14.0-18.0); Mean Corpuscular HGB Conc 30.3 g/dl (32-36); Mean Corpuscular Hemoglobin 27.5 pg (26-34); Mean Corpuscular Volume 90.8 fl (80-100); Mean Platelet Volume 12.6 fl (7.4-10.4); Platelet Count Result 185 k/mm3 (150-375); Red Cell Distribution Width 15.2 % (11.5-14.5); White Blood Count 6.7 K/mm3 (4.5-10.0)
[2023-05-20 06:55] LABS: Alanine Aminotransferase 32 U/L (6-50); Albumin Level 3.2 g/dL (3.5-5.1); Alkaline Phosphatase 65 U/L (38-126); Anion Gap 6 mmol/L (8-16); Aspartate Amino Transferase 39 U/L (17-59); Bilirubin,Total 0.4 mg/dL (0.2-1.3); Blood Urea Nitrogen 69 mg/dL (9-20); Calcium 8.5 mg/dL (8.4-10.2); Carbon Dioxide 31 mmol/L (22-30); Chloride 92 mmol/L (98-107); Estimated CRCL calculation 15 ml/min; Estimated Glomerular Filt Rate 13; Glucose 98 mg/dL (65-110); Magnesium 2.1 mg/dL (1.6-2.3); Potassium 3.6 mmol/L (3.4-5.0); Sodium 129 mmol/L (137-145)
[2023-05-20] MEDS: FAMOTIDINE 20 MG/2 ML VIAL 40 MG IV PUSH ×2 (08:19→20:29)
--- NOTE | 2023-05-20 10:20 | PCNFU ---
Nutrition Follow-Up Complete: Increased protein energy needs related to mechanical ventilation as evidenced by need for full tube feeding Goal:Meet estimated protein energy needs Pt current nutrition is currently NPO for a test, TF has been cancelled, no longer on mechanical ventilation. Nutrition recommendation: Resume soft and bite sized level 6 diet post procedure Last recorded weight is 90 kg. Bowel Motility: +BM 05/19 Labs Reviewed: Hgb:9.9, HCT:32.7, Alb:3.2, NA:129, GFR:13, BUN:69, Cr:4.8 Meds Noted: folic acid Skin: no skin issues noted Additional Notes: Pt tube feeding has been cancelled, diet was advanced to soft and bite sized level 6, intake was good at 50-100% of meals and pt was tolerating. pt is NPO today for a test. Recommend to resume diet post procedure, add Nepro shakes daily for supplementation. Monitor diet orders, tolerance, labs, weights, plan of care Follow up in 3 days.
--- NOTE | 2023-05-20 11:21 | PM.PNNEP ---
Progress Note: A&P Assessment and Plan (1) Chronic kidney disease, stage 5: Code(s): N18.5 - Chronic kidney disease, stage 5 Status: Acute Assessment and Plan: See discussion below (2) PIERCE (acute kidney injury): Code(s): N17.9 - Acute kidney failure, unspecified Status: Acute Assessment and Plan: Acute kidney injury:? 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 Anemia of chronic kidney disease Plan: -seen and examined on hemodialysis, hemodialysis supervised -dialysis placement -given that creatinine increase still persists, probably is ESRD Subjective Date/time seen: 05/20/23 11:21 Interval history: Acute renal failure On trach collar alone today. Seen and examined on hemodialysis and hemodialysis supervised today 05/20/2023. Feeling better. Exam Narrative: Seen and examined on hemodialysis, trach collar, comfortable with breathing at rest JVDs hard to see, regular rate rhythm, no gallop, no rub, equal breath sounds, nor otherwise, soft nontender abdomen, diminished edema, alert and oriented to situation, at asking questions by mouth words, edema greatly diminished. Objective Data Vital Signs Vital Signs: Vital Signs - 24 hr 05/19/23 12:06 05/19/23 14:20 05/19/23 14:30 Temperature 36.3 C L Pulse Rate 76 75 Respiratory Rate 16 18 Blood Pressure 108/75 Pulse Oximetry 100 100 Oxygen Delivery High Flow Therapy with Tr Oxygen Flow Rate 25 Fraction of Inspired Oxygen 05/19/23 16:23 05/19/23 19:31 05/19/23 20:01 Temperature 36.4 C L 36.8 C Pulse Rate 95 74 80 Respiratory Rate 18 18 18 Blood Pressure 124/83 101/59 L Pulse Oximetry 99 100 Oxygen Delivery Oxygen Flow Rate Fraction of Inspired Oxygen 05/19/23 20:01 05/19/23 20:04 05/19/23 20:22 Temperature Pulse Rate 80 84 Respiratory Rate 18 Blood Pressure Pulse Oximetry 100 Oxygen Delivery High Flow Therapy with Tr Oxygen Flow Rate 25 Fraction of Inspired Oxygen 24 05/19/23 20:00 05/19/23 23:51 05/20/23 00:30 Temperature 36.7 C 36.0 C L Pulse Rate 84 66 67 Respiratory Rate 18 17 18 Blood Pressure 99/62 L 103/64 Pulse Oximetry 100 98 94 Oxygen Delivery High Flow Therapy with Tr Oxygen Flow Rate 25 Fraction of Inspired Oxygen 05/20/23 01:45 05/20/23 02:05 05/20/23 02:04 Temperature Pulse Rate 74 75 Respiratory Rate 18 18 Blood Pressure Pulse Oximetry 100 Oxygen Delivery High Flow Therapy with Tr Oxygen Flow Rate 25 Fraction of Inspired Oxygen 05/20/23 06:00 05/20/23 08:21 05/20/23 08:21 Temperature 36.2 C L Pulse Rate 85 77 Respiratory Rate 16 18 Blood Pressure 109/74 Pulse Oximetry 98 99 Oxygen Delivery High Flow Therapy with Tr Oxygen Flow Rate 25 Fraction of Inspired Oxygen 05/20/23 08:45 05/20/23 08:45 05/20/23 08:51 Temperature 36.4 C L Pulse Rate 63 61 Respiratory Rate 18 Blood Pressure 133/79 130/78 Pulse Oximetry Oxygen Delivery Oxygen Flow Rate 3 Fraction of Inspired Oxygen 05/20/23 09:00 05/20/23 09:15 05/20/23 09:30 Temperature Pulse Rate 59 L 70 80 Respiratory Rate Blood Pressure 121/79 100/54 L 128/64 Pulse Oximetry Oxygen Delivery Oxygen Flow Rate Fraction of Inspired Oxygen 05/20/23 09:45 05/20/23 10:00 05/20/23 10:15 Temperature Pulse Rate 80 60 57 L Respiratory Rate Blood Pressure 120/74 117/72 121/74 Pulse Oximetry Oxygen Delivery Oxygen Flow Rate Fraction of Inspired Oxygen 05/20/23 08:0
[2023-05-20] MEDS: SODIUM CHLORIDE 0.9% IV 500 ML 30 ML IV CONT (13:00)
--- NOTE | 2023-05-20 13:25 | WPDHPUPDATE1 ---
History and Physical Update Update Date/Time: 05/20/23 13:25 History and Physical has been reviewed, including an updated exam of the patient. There are NO changes in the patient's condition. Risks, benefits, and alternatives have been discussed and questions answered. Patient agrees to proceed with procedure.
--- NOTE | 2023-05-20 13:37 | WPDANESEPPF ---
Anes - Initial Pre Proc Eval Procedure: Operation Date: 05/20/23 12:30 Proposed Procedures p Insertion Tunneled Dialysis Catheter Under Fluoroscopy - Sawyer Whitaker MD Date/Time: 05/20/23 13:37 Surgeon: Ted Faulkner MD Pre Op Diagnosis: PIERCE, Pulmonary Edema, Tracheostomy Care Patient Patient Data Age: 58 Gender: M Height: 1.75 m Weight: 90 kg Last Vital Signs Temp 36.1 C L 05/20/23 12:58 Pulse 85 05/20/23 12:58 Resp 16 05/20/23 12:58 BP 153/98 H 05/20/23 12:58 Pulse Ox 99 05/20/23 12:58 O2 Del Method Trach Collar 05/20/23 12:58 O2 Flow Rate 3 05/20/23 08:45 FiO2 24 05/20/23 08:21 Allergies Allergy/AdvReac Type Severity Reaction Status Date / Time No Known Allergies Allergy Unknown Verified 05/07/23 19:30 Home Medications Medication Instructions Recorded Confirmed Type amlodipine 10 mg tablet 10 mg PO DAILY 10/09/20 05/08/23 History calcitriol 0.25 mcg capsule 0.25 mcg PO DAILY 10/09/20 05/08/23 History carvedilol 12.5 mg tablet 12.5 mg PO Q12H 10/09/20 05/08/23 History levothyroxine 112 mcg capsule 112 mcg PO DAILY 10/09/20 05/08/23 History losartan 100 mg tablet 100 mg PO DAILY 10/09/20 05/08/23 History pioglitazone 30 mg tablet 30 mg PO DAILY 10/09/20 05/08/23 History glimepiride 2 mg tablet 2 mg PO DAILY 05/08/23 05/08/23 History pravastatin 40 mg tablet 40 mg PO DAILY 05/08/23 05/08/23 History Laboratory Tests 05/20/23 06:28 WBC 6.7 K/mm3 (4.5-10.0) RBC 3.60 L M/mm3 (4.6-6.20) Hgb 9.9 L g/dL (14.0-18.0) Hct 32.7 L % (42.0-52.0) MCV 90.8 fl (80-100) MCH 27.5 pg (26-34) MCHC 30.3 L g/dl (32-36) RDW 15.2 H % (11.5-14.5) Plt Count 185 k/mm3 (150-375) MPV 12.6 H fl (7.4-10.4) Sodium 129 L mmol/L (137-145) Potassium 3.6 mmol/L (3.4-5.0) Chloride 92 L mmol/L (98-107) Carbon Dioxide 31 H mmol/L (22-30) Anion Gap 6 L mmol/L (8-16) BUN 69 H mg/dL (9-20) Creatinine 4.80 H mg/dL (0.7-1.3) Estim Creat Clear Calc 15 ml/min Estimated GFR 13 L (59 - ) Glucose 98 mg/dL (65-110) Calcium 8.5 mg/dL (8.4-10.2) Magnesium 2.1 mg/dL (1.6-2.3) Total Bilirubin 0.4 mg/dL (0.2-1.3) AST 39 U/L (17-59) ALT 32 U/L (6-50) Alkaline Phosphatase 65 U/L (38-126) Total Protein 6.0 L g/dL (6.3-8.2) Albumin 3.2 L g/dL (3.5-5.1) Patient hx anesthesia problems: none Family hx anesthesia problems: none Results Review: All pre-operative results and documents have been reviewed as part of the pre-operative evaluation. [facility] Past Medical History Medical History Amputated toe CRF (chronic renal failure) Diabetes Erythropoietin deficiency anemia Generalized edema HTN (hypertension) with goal to be determined Hyperlipidemia Hypertension Hypothyroidism Renal osteodystrophy Surgical History Surgical History H/O foot surgery Amputation right great toe History of throat surgery Family History Family History Mother Family history of diabetes mellitus in first degree relative Diabetes mellitus Hypertension Heart disease Cerebrovascular accident Father Alcoholism Sibling Alcoholism Diabetes mellitus Hypertension Heart disease Cerebrovascular accident Other Family history of lung cancer Social History Social History Social History: The patient is and has 1 child. The patient is a former smoker. He denies any alcohol marijuana or illicit drugs. 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 His is the [employer] for [employer]. Code status full code Smoking packs per day: 2 Smoking cigarettes per day: 40.0 Years smoked: 35 Smoking pack-years: 70.00
[2023-05-20] MEDS: ceFAZolin 2 GM/D5W 50 ML 2 GM/50 ML BAG IVPB (13:44)
[2023-05-20] MEDS: LIDO 1%/EPINEPHRINE 1:100,000 50 ML VIAL 30 ML INFILTRATE (14:14)
[2023-05-20] MEDS: HEPARIN SODIUM 5,000 UNITS/ML VIAL 5000 UNITS IRRIGATION (14:15)
[2023-05-20] MEDS: HEPARIN SODIUM, PORCINE 10,000 UNITS/10 ML VIAL 10000 UNITS IV PUSH (14:16)
--- NOTE | 2023-05-20 15:07 | W.PM.PROC2 ---
Procedure Note - Detailed Date of Procedure 05/20/23 Pre-op Diagnosis End-stage renal disease, inadequate venous access Post-op Diagnosis Same Procedure Performed Placement tunneled dura flow central venous catheter left internal jugular vein using fluoroscopy and ultrasound, removal right internal jugular central venous catheter. Surgeon Sawyer Whitaker MD Stock [employer] Jennifer PATTERSON Anesthesia General (G IV S) and Local Indications Patient is in need of dialysis long-term. He previously had a right IJ catheter placed. This has worked well but he is now in need of a tunneled central venous catheter for dialysis. He prefers that this be on his left side. He also has a tracheostomy. Findings End of the catheter is in the distal SVC right atrial junction. Description of Procedure Patient was taken to surgery and anesthesia was introduced. The strap to his tracheostomy was removed and we taped the oxygen trach mask to his very upper neck near the mandible. We then prepped and draped the left chest and left neck. Using ultrasound in the lower left neck, the inferior jugular vein was found. Local anesthetic was infiltrated over the inferior jugular. A needle was then passed using ultrasound directly into the internal jugular vein. Venous blood returned. We were able to pass the guidewire into the vein but required fluoroscopy to advance the guidewire beyond a fairly abrupt angulation of the left brachiocephalic vein. With the guidewire in place, I measured using fluoroscopy the anticipated placement of the dura flow catheter so that the end would be in the appropriate position in the distal SVC right atrial junction. I then made counter incisions where the catheter would be tunneled and exited where the wire exited. I then injected local anesthetic into each of these counter incisions and in the skin at the exit site of the guidewire. Counter incisions were then made at each position. I tunneled the dura flow catheter retrograde from the chest incisions up to the neck and eventually to the internal jugular incision where the wire was emanating. Then, using fluoroscopy, I passed serial dilators over the guidewire. The angulation at the left brachial cephalic was a point of difficulty each time. I then used the largest dilator with the sheath and passed it over the guidewire. This was particularly difficult to get into position but finally was in the SVC. The guidewire and introducer were then removed. We passed the dura flow catheter tip through the sheath. This was also difficult due to the angulation of the left brachial cephalic. Eventually, the tip of the greater of flow catheter got past the angulation and into the distal superior vena cava. We then removed the sheath. I repositioned the catheter so that there were no kinks in the neck where it went into the internal jugular vein. All looked very good on fluoroscopy. I then used heparin and checked each of the ports. Both aspirated blood and flushed easily with heparin. Final flush was placed in each port. I then closed each of the counter incisions with subcuticular interrupted 4-0 Vicryl suture. The end of the dura flow catheter was sutured to the skin with 3-0 nylon suture. Exofin surgical adhesive was placed over the counter incisions. Gauze and a Tegaderm were placed over the exit site of the dura flow catheter. The right internal jugular dual-lumen dialysis catheter was then removed without difficulty. A dressing was placed over this as well. The tracheostomy strap was replaced and positioned appropriately. The patient was then awakened and taken to recovery in good condition. Sponge and needle counts were correct x2. Implants Thirty-six cm dura flow central venous catheter for dialysis. Estimated Blood Loss 5 Urine Output 350 Drains No Packing No Pathology None sent Complications No immediate complications Condition Stable Disposition PACU [facility] Surgery -
[2023-05-20 15:22] LABS: Glucose Point of Care 92 mg/dl (65-105)
[2023-05-20] MEDS: PRAVASTATIN SODIUM 20 MG TABLET 40 MG PO (16:10)
[2023-05-20] MEDS: carvediloL 12.5 MG TABLET PO (16:10)
[2023-05-20] MEDS: VITAMIN B CMPLX/VIT C/FOLIC AC 1 CAPSULE 1 CAP PO (16:10)
[2023-05-20] MEDS: calcitrioL 0.25 MCG CAPSULE PO (16:10)
[2023-05-20] MEDS: CALCIUM CARBONATE (TUMS) 500 MG (200 MG ELEMENTAL) 400 MG PO (16:10)
--- NOTE | 2023-05-20 16:42 | PM.IMPN ---
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 Will this hospitalization patient has been gradually developing worsening hypoxia and ABG showed hypercarbia and respiratory acidosis. Patient was transferred to ICU Patient was intubated through the stoma ER physician placed on mechanical ventilation. 05/13 ET tube was changed to a tracheostomy size 8 by ENT Vent settings ABG and chest x-ray reviewed Patient is down to 30 % FiO2 and 5 of PEEP. Continue wean FiO2 Hypercarbia and acidosis has resolved with mechanical ventilation and dialysis Patient has been off vent and back to Airvo humidified (2) Sepsis: Code(s): A41.9 - Sepsis, unspecified organism Status: Acute Assessment and Plan: Secondary to cellulitis. WBC normal and patient afebrile The could be component of pneumonia on the chest x-ray although it looks overall mainly fluid overload Patient has been on broad-spectrum antibiotics azithromycin, vancomycin and cefepime Cultures have been negative completed course of azithromycin vancomycin was discontinued and patient was switched to Rocephin 05/14 cultures came back positive for Pseudomonas. Was switched back to cefepime which has completed treatment Hemodynamically stable and not requiring any vasopressors (3) Cellulitis of lower leg: Code(s): L03.119 - Cellulitis of unspecified part of limb Status: Acute Assessment and Plan: See above (4) Chronic kidney disease (CKD): Qualifiers: Chronic kidney disease stage: stage 4 (severe) Qualified Code(s): N18.4 - Chronic kidney disease, stage 4 (severe) Code(s): N18.9 - Chronic kidney disease, unspecified Status: Acute Assessment and Plan: Patient has chronic kidney disease stage 4 which is likely progressed to end-stage renal disease Patient is being seen by Nephrology Patient was started on hemodialysis on 05/11 Plan to do another session today Dialysis catheter placed by general surgery He is also receiving IV Lasix for hypervolemia and is still producing urine will be continue In fact his urine output improved after he was started on hemodialysis likely secondary to improved cardiac output due to decreased pressure overload of the right ventricle He is getting phosphate binders and calcium Lokelma discontinued 05/15 patient is getting another session of dialysis today Dialysis per Nephrology and getting outpatient setup Plan on tunneled CVC for dialysis catheter placement and outpatient dialysis unit set up. Re-consult General surgery planned for Friday Hay catheter removed Still awaiting chair time arrangement for outpatient dialysis (5) Generalized edema: Code(s): R60.1 - Generalized edema Status: Acute Assessment and Plan: Anasarca secondary to renal failure, right heart failure, medications Dialysis for fluid removal and diuretics Significant improvement Echo shows LV hypertrophy right ventricular enlargement with systolic dysfunction and volume overload (6) Congestive heart failure: Code(s): I50.9 - Heart failure, unspecified Status: Acute Assessment and Plan: See above (7) Electrolyte abnormality: Code(s): E87.8 - Other disorders of electrolyte and fluid balance, not elsewhere classified Status: Acute Assessment and Plan: Replace low potassium Plan DVT prophylaxis -Lovenox Stress ulcer prophylaxis -Pepcid Nutrition -continue tube feeds speech evaluated and started on oral diet. Tube feeds. Code Status - Full Code Hypertension on carvedilol amlodipine and losartan at home. Losartan restarted. Will resume carvedilol only. Blood pressure has lowered since losartan has been given. Hold off on amlodipine restar
--- NOTE | 2023-05-20 17:59 | PC.NURSE ---
Dr Cueto notified of bp 80/40 and patient asymptomatic. thinks its from coreg given at 1610. Will recheck bp in 30 min
[2023-05-21] VITALS (17 sets, daily range): BP systolic 89–167; BP diastolic 60–107; PULSE 64–78; RESP 15–18; TEMP 36.1–36.9; O2SAT 94–100
[2023-05-21] MEDS: ALBUTEROL SULFATE NEB 2.5 MG/3 ML INH INHALATION ×3 (03:14→21:14)
[2023-05-21] MEDS: IPRATROPIUM BR 0.02% INH SOLN 0.5 MG/2.5 ML VIAL INHALATION ×3 (03:14→21:14)
[2023-05-21] MEDS: LEVOTHYROXINE SODIUM 112 MCG TABLET PO (05:36)
[2023-05-21 06:18] LABS: Hematocrit 34.1 % (42.0-52.0); Hemoglobin 10.1 g/dL (14.0-18.0); Mean Corpuscular HGB Conc 29.6 g/dl (32-36); Mean Corpuscular Hemoglobin 27.5 pg (26-34); Mean Corpuscular Volume 92.9 fl (80-100); Mean Platelet Volume 12.7 fl (7.4-10.4); Platelet Count Result 199 k/mm3 (150-375); Red Blood Count 3.67 M/mm3 (4.6-6.20); Red Cell Distribution Width 15.2 % (11.5-14.5); White Blood Count 6.8 K/mm3 (4.5-10.0)
[2023-05-21 06:38] LABS: Alanine Aminotransferase 28 U/L (6-50); Albumin Level 3.3 g/dL (3.5-5.1); Alkaline Phosphatase 71 U/L (38-126); Anion Gap 6 mmol/L (8-16); Aspartate Amino Transferase 38 U/L (17-59); Bilirubin,Total 0.4 mg/dL (0.2-1.3); Blood Urea Nitrogen 43 mg/dL (9-20); Calcium 8.4 mg/dL (8.4-10.2); Carbon Dioxide 29 mmol/L (22-30); Chloride 99 mmol/L (98-107); Estimated CRCL calculation 18 ml/min; Estimated Glomerular Filt Rate 15; Glucose 79 mg/dL (65-110); Magnesium 1.9 mg/dL (1.6-2.3); Potassium 3.8 mmol/L (3.4-5.0); Sodium 134 mmol/L (137-145)
[2023-05-21] MEDS: VITAMIN B CMPLX/VIT C/FOLIC AC 1 CAPSULE 1 CAP PO (08:20)
[2023-05-21] MEDS: FAMOTIDINE 20 MG/2 ML VIAL 40 MG IV PUSH ×2 (08:20→21:13)
[2023-05-21] MEDS: calcitrioL 0.25 MCG CAPSULE PO (08:20)
[2023-05-21] MEDS: ENOXAPARIN 30 MG/0.3 ML SYRINGE SUB-Q (08:20)
[2023-05-21] MEDS: CALCIUM CARBONATE (TUMS) 500 MG (200 MG ELEMENTAL) 400 MG PO ×3 (08:20→16:54)
[2023-05-21] MEDS: PRAVASTATIN SODIUM 20 MG TABLET 40 MG PO (08:21)
[2023-05-21] MEDS: carvediloL 12.5 MG TABLET PO (08:25)
--- NOTE | 2023-05-21 08:28 | WPDANESPN ---
Anes - Prog Note Post-Op Date/Time: 05/21/23 08:28 Cardiovascular status: normal Respiratory status: normal Airway patency: baseline Mental status: baseline Post-Op hydration status: normal Vital Signs: Last Vital Signs Temp 36.1 C L 05/21/23 05:39 Pulse 78 05/21/23 08:25 Resp 15 05/21/23 05:39 BP 122/82 05/21/23 05:39 Pulse Ox 97 05/21/23 05:39 O2 Del Method High Flow Therapy with Trach Collar 05/20/23 20:00 O2 Flow Rate 25 05/20/23 20:00 FiO2 35 05/20/23 20:00 Pain Score (VAS): 0 I/O: Intake & Output 05/20/23 05/21/23 05/21/23 23:59 07:59 15:59 Output Total 100 Balance -100 Laboratory Tests 05/21/23 05:48 05/21/23 05:48 05/20/23 05/21/23 15:20 05:48 WBC 6.8 RBC 3.67 L Hgb 10.1 L Hct 34.1 L MCV 92.9 MCH 27.5 MCHC 29.6 L RDW 15.2 H Plt Count 199 MPV 12.7 H Sodium 134 L Potassium 3.8 Chloride 99 Carbon Dioxide 29 Anion Gap 6 L BUN 43 H D Creatinine 4.10 H Estim Creat Clear Calc 18 Estimated GFR 15 L Glucose 79 POC Capillary Glucose 92 Calcium 8.4 Magnesium 1.9 Total Bilirubin 0.4 AST 38 ALT 28 Alkaline Phosphatase 71 Total Protein 6.0 L Albumin 3.3 L Post-procedural complaints: none Patient Feedback: Patient satisfied with anesthetic care.
--- NOTE | 2023-05-21 09:44 | PCDIET ---
Nutrition note: Diet advanced to renal dialysis diet. Add Nepro BID for additional 420 kcal and 19 g protein each.
--- NOTE | 2023-05-21 16:17 | PM.IMPN ---
Progress Note: A&P Assessment and Plan (1) History of laryngeal cancer: Code(s): Z85.21 - Personal history of malignant neoplasm of larynx Status: Acute (2) CRF (chronic renal failure): Code(s): N18.9 - Chronic kidney disease, unspecified Status: Acute (3) Generalized edema: Code(s): R60.1 - Generalized edema Status: Acute (4) Acute hypoxemic respiratory failure: Code(s): J96.01 - Acute respiratory failure with hypoxia Status: Acute (5) Hypotension: Code(s): I95.9 - Hypotension, unspecified Status: Acute Plan Mr. Saxena has stabilized. He wants to leave by the . As long as dialysis can be officially setup, his o2 weaned and set up for home, and blood pressure acceptable that could be possible. Dc'ed Coreg as well today he has borderline low BP's. Continue dialysis per nephrology, he is still making urine and may need less fluid taken off. Full code. lovenox for dvt prophylaxis. Subjective Date/time seen: 05/21/23 16:17 Interval history: NAOE. the patient has no complaints. he wants to leave by the . Review of Systems Review of Systems: All systems reviewed & are unremarkable except as noted in HPI and below Exam Const: General: comfortable and no acute distress Eyes: Pupils: Equal, round and reactive pupils present Neck: Neck: supple Resp: Effort & Inspection: normal respiratory effort Auscultation: clear to auscultation bilaterally Cardio: Rate: regular rate Rhythm: regular rhythm Heart sounds: no gallops, no murmurs and no rubs GI: GI Palp: Yes Soft to palpation and No Tenderness to palpation present (GI) Extrem: General: no edema Objective Data Vital Signs Vital Signs: Vital Signs - 24 hr 05/20/23 16:39 05/20/23 17:39 05/20/23 18:36 Temperature 97.5 F L 97.2 F L Pulse Rate 70 61 Respiratory Rate 16 16 Blood Pressure 146/86 H 80/40 L 100/60 Pulse Oximetry 93 91 Oxygen Delivery Oxygen Flow Rate Fraction of Inspired Oxygen 05/20/23 20:59 05/20/23 21:23 05/20/23 20:00 Temperature 98.0 F Pulse Rate 71 62 Respiratory Rate 18 14 Blood Pressure 105/73 Pulse Oximetry 85 L 92 Oxygen Delivery High Flow Therapy with Tr Oxygen Flow Rate 25 Fraction of Inspired Oxygen 35 05/21/23 01:33 05/21/23 03:18 05/20/23 21:13 Temperature 97.3 F L Pulse Rate 68 68 74 Respiratory Rate 15 18 18 Blood Pressure 128/86 Pulse Oximetry 99 Oxygen Delivery Oxygen Flow Rate Fraction of Inspired Oxygen 05/21/23 03:31 05/21/23 05:39 05/21/23 08:25 Temperature 97.0 F L Pulse Rate 69 72 78 Respiratory Rate 18 15 Blood Pressure 122/82 Pulse Oximetry 97 Oxygen Delivery Oxygen Flow Rate Fraction of Inspired Oxygen 05/21/23 08:29 05/21/23 08:48 05/21/23 08:58 Temperature Pulse Rate 73 70 Respiratory Rate 18 18 Blood Pressure 167/107 H Pulse Oximetry Oxygen Delivery Oxygen Flow Rate Fraction of Inspired Oxygen 05/21/23 08:00 05/21/23 09:39 05/21/23 13:09 Temperature 97.8 F 97.7 F Pulse Rate 68 64 Respiratory Rate 16 16 Blood Pressure 89/65 L 98/60 L Pulse Oximetry 97 100 100 Oxygen Delivery High Flow Therapy with Tr Oxygen Flow Rate 25 Fraction of Inspired Oxygen 30 Intake/Output Intake/Output: Intake & Output 05/18/23 05/19/23 05/20/23 05/21/23 23:59 23:59 23:59 23:59 Intake Total 1080 980 200 Output Total 005 918 0329 Balance 480 252 -1103 Meds/Results Medications: Active Medications Generic Name Dose Route Start Last Admin Trade Name Freq PRN Reason Stop Dose Admin Acetaminophen 1,000 mg 05/10/23 01:54 05/10/23 09:11 Acetaminophen 500 Mg Tablet PO 1,000 mg Q6H PRN Administration Mild Pain (1-3) or Fever Hydrocodone Bitart/Acetaminophen 1 tab 05/20/23 15:54 Hydrocodone/Acetaminophen (*Crx) 5-325 Mg Tablet PO Q4H PRN Pain Rated 4-6 Albuterol 2.5 mg 05/10/23 20:0
[2023-05-22] VITALS (30 sets, daily range): BP systolic 104–162; BP diastolic 65–102; PULSE 69–89; RESP 16–18; TEMP 36.1–37.2; O2SAT 90–100
[2023-05-22] MEDS: ALBUTEROL SULFATE NEB 2.5 MG/3 ML INH INHALATION ×4 (02:39→21:37)
[2023-05-22] MEDS: IPRATROPIUM BR 0.02% INH SOLN 0.5 MG/2.5 ML VIAL INHALATION ×4 (02:40→21:37)
[2023-05-22] MEDS: LEVOTHYROXINE SODIUM 112 MCG TABLET PO (05:04)
[2023-05-22 06:02] LABS: Hematocrit 34.7 % (42.0-52.0); Hemoglobin 10.2 g/dL (14.0-18.0); Mean Corpuscular HGB Conc 29.4 g/dl (32-36); Mean Corpuscular Hemoglobin 27.3 pg (26-34); Mean Platelet Volume 12.4 fl (7.4-10.4); Platelet Count Result 203 k/mm3 (150-375); Red Blood Count 3.73 M/mm3 (4.6-6.20); Red Cell Distribution Width 15.2 % (11.5-14.5); White Blood Count 6.9 K/mm3 (4.5-10.0)
[2023-05-22 06:13] LABS: Alanine Aminotransferase 20 U/L (6-50); Albumin Level 3.5 g/dL (3.5-5.1); Alkaline Phosphatase 76 U/L (38-126); Anion Gap 9 mmol/L (8-16); Aspartate Amino Transferase 43 U/L (17-59); Bilirubin,Total 0.4 mg/dL (0.2-1.3); Blood Urea Nitrogen 53 mg/dL (9-20); Calcium 8.7 mg/dL (8.4-10.2); Carbon Dioxide 29 mmol/L (22-30); Chloride 96 mmol/L (98-107); Estimated CRCL calculation 16 ml/min; Estimated Glomerular Filt Rate 13; Glucose 96 mg/dL (65-110); Potassium 3.5 mmol/L (3.4-5.0); Sodium 134 mmol/L (137-145)
[2023-05-22] MEDS: CALCIUM CARBONATE (TUMS) 500 MG (200 MG ELEMENTAL) 400 MG PO ×3 (08:08→16:37)
[2023-05-22] MEDS: ENOXAPARIN 30 MG/0.3 ML SYRINGE SUB-Q (08:15)
[2023-05-22] MEDS: calcitrioL 0.25 MCG CAPSULE PO (08:16)
[2023-05-22] MEDS: VITAMIN B CMPLX/VIT C/FOLIC AC 1 CAPSULE 1 CAP PO (08:16)
[2023-05-22] MEDS: FAMOTIDINE 20 MG/2 ML VIAL 40 MG IV PUSH ×2 (08:16→21:11)
[2023-05-22] MEDS: PRAVASTATIN SODIUM 20 MG TABLET 40 MG PO (08:16)
[2023-05-22] MEDS: HEPARIN SODIUM 1,000 UNITS/ML VIAL 5000 UNITS (14:00)
--- NOTE | 2023-05-22 14:13 | PM.PNNEP ---
Progress Note: A&P Assessment and Plan (1) Chronic kidney disease, stage 5: Code(s): N18.5 - Chronic kidney disease, stage 5 Status: Acute Assessment and Plan: See discussion below (2) PIERCE (acute kidney injury): Code(s): N17.9 - Acute kidney failure, unspecified Status: Acute Assessment and Plan: Acute kidney injury:non resolved, treat as ESRD? Chronic kidney disease stage 5: as above Underlying cause of the chronic kidney disease diabetes mellitus with nephropathy Probable benign essential hypertensive renal disease renal failure History of secondary hyperparathyroidism for which he was on calcitriol therapy, maintaining calcitriol in [facility] probably combination of worsened renal function, pioglitazone, cor pulmonale with right ventricular systolic dysfunction. Anemia of chronic kidney disease Plan: -seen and examined on hemodialysis, hemodialysis supervised -dialysis placement: will go to [facility] in [place]: plan dialysis Sat and then discharge, can wait until Friday when provisionally all supplies needed for tracheostomy care in the dialysis unit (and education completed) will be available -given that creatinine increase still persists, and rises, treated as having ESRD Subjective Date/time seen: 05/22/23 14:13 Interval history: F/u ESRD Received hemodialysis Supervised Exam Narrative: Seen and examined on hemodialysis, trach collar, comfortable with breathing at rest JVDs hard to see, regular rate rhythm, no gallop, no rub, equal breath sounds, nor otherwise, soft nontender abdomen, diminished edema, alert and oriented to situation, at asking questions by mouth words, edema greatly diminished. Objective Data Vital Signs Vital Signs: Vital Signs - 24 hr 05/21/23 17:39 05/21/23 21:14 05/21/23 21:19 Temperature 36.9 C Pulse Rate 76 72 Respiratory Rate 16 18 Blood Pressure 129/71 Pulse Oximetry 100 94 Oxygen Delivery High Flow Therapy with Tr Oxygen Flow Rate 25 Fraction of Inspired Oxygen 05/21/23 21:27 05/21/23 21:56 05/21/23 20:00 Temperature 36.6 C Pulse Rate 77 76 Respiratory Rate 18 18 Blood Pressure 146/86 H Pulse Oximetry 100 100 Oxygen Delivery High Flow Therapy with Tr Oxygen Flow Rate 25 Fraction of Inspired Oxygen 05/22/23 02:40 05/22/23 02:50 05/22/23 06:00 Temperature 36.3 C L Pulse Rate 71 70 78 Respiratory Rate 18 18 18 Blood Pressure 115/67 Pulse Oximetry 96 Oxygen Delivery Oxygen Flow Rate Fraction of Inspired Oxygen 05/22/23 07:58 05/22/23 08:02 05/22/23 08:12 Temperature Pulse Rate 73 73 76 Respiratory Rate 18 18 18 Blood Pressure Pulse Oximetry 98 Oxygen Delivery High Flow Therapy with Tr Oxygen Flow Rate 25 Fraction of Inspired Oxygen 21 05/22/23 08:00 05/22/23 10:47 05/22/23 10:47 Temperature 36.5 C Pulse Rate 74 71 Respiratory Rate 16 Blood Pressure 148/89 H 146/92 H Pulse Oximetry 98 Oxygen Delivery High Flow Therapy with Tr Oxygen Flow Rate 25 Fraction of Inspired Oxygen 05/22/23 11:00 05/22/23 11:15 05/22/23 11:31 Temperature Pulse Rate 73 71 72 Respiratory Rate Blood Pressure 138/85 131/77 109/66 Pulse Oximetry Oxygen Delivery Oxygen Flow Rate Fraction of Inspired Oxygen 05/22/23 11:45 05/22/23 12:00 05/22/23 12:15 Temperature Pulse Rate 73 71 73 Respiratory Rate Blood Pressure 115/72 108/67 125/81 Pulse Oximetry Oxygen Delivery Oxygen Flow Rate Fraction of Inspired Oxygen 05/22/23 12:30 05/22/23 12:45 Temperature Pulse Rate 71 74 Respiratory Rate Blood Pressure 113/65 143/73 H Pulse Oximetry Oxygen Delivery Oxygen Flow Rate Fraction of Inspired Oxygen Intake/Output Intake/Output: Intake & Output 05/19/23 05/20/23 05/21/23 05/22/23 23:59 23:59 23:59 23:59 Intake Total 980 200 240 Output Total 725 130
--- NOTE | 2023-05-22 15:53 | PCRCNOTE ---
Pt had returned from [facility], RT entered room to do 1400 neb tx and found pt on room air with his astrid tube in. Pt was stating 92-93% on just room air. RT explained to Doctor that the Airvo at this point was just for humidification and was not for O2 needs.
--- NOTE | 2023-05-22 15:54 | PM.IMPN ---
Progress Note: A&P Assessment and Plan (1) Acute hypoxemic respiratory failure: Code(s): J96.01 - Acute respiratory failure with hypoxia Status: Acute (2) Admission for fitting and adjustment of vascular catheter: Code(s): Z45.2 - Encounter for adjustment and management of vascular access device Status: Acute (3) Kidney disease: Code(s): N28.9 - Disorder of kidney and ureter, unspecified Status: Acute Plan pt stabilized and ready for discharge. dialysis needs are being setup through care coordination still. cont dialysis per nephrology full code yovani Subjective Date/time seen: 05/22/23 15:54 Interval history: naoe. patient is agitated because he wants to return home from [place]. he has no complaints otherwise. Review of Systems Review of Systems: All systems reviewed & are unremarkable except as noted in HPI and below Exam Const: General: comfortable and no acute distress Resp: Effort & Inspection: normal respiratory effort Auscultation: clear to auscultation bilaterally Cardio: Rate: regular rate Rhythm: regular rhythm Heart sounds: no gallops, no murmurs and no rubs GI: GI Palp: Yes Soft to palpation and No Tenderness to palpation present (GI) Extrem: General: no edema Objective Data Vital Signs Vital Signs: Vital Signs - 24 hr 05/21/23 17:39 05/21/23 21:14 05/21/23 21:19 Temperature 98.4 F Pulse Rate 76 72 Respiratory Rate 16 18 Blood Pressure 129/71 Pulse Oximetry 100 94 Oxygen Delivery High Flow Therapy with Tr Oxygen Flow Rate 25 Fraction of Inspired Oxygen 05/21/23 21:27 05/21/23 21:56 05/21/23 20:00 Temperature 98 F Pulse Rate 77 76 Respiratory Rate 18 18 Blood Pressure 146/86 H Pulse Oximetry 100 100 Oxygen Delivery High Flow Therapy with Tr Oxygen Flow Rate 25 Fraction of Inspired Oxygen 05/22/23 02:40 05/22/23 02:50 05/22/23 06:00 Temperature 97.3 F L Pulse Rate 71 70 78 Respiratory Rate 18 18 18 Blood Pressure 115/67 Pulse Oximetry 96 Oxygen Delivery Oxygen Flow Rate Fraction of Inspired Oxygen 05/22/23 07:58 05/22/23 08:02 05/22/23 08:12 Temperature Pulse Rate 73 73 76 Respiratory Rate 18 18 18 Blood Pressure Pulse Oximetry 98 Oxygen Delivery High Flow Therapy with Tr Oxygen Flow Rate 25 Fraction of Inspired Oxygen 05/22/23 08:00 05/22/23 10:47 05/22/23 10:47 Temperature 97.7 F Pulse Rate 74 71 Respiratory Rate 16 Blood Pressure 148/89 H 146/92 H Pulse Oximetry 98 Oxygen Delivery High Flow Therapy with Tr Oxygen Flow Rate 25 Fraction of Inspired Oxygen 05/22/23 11:00 05/22/23 11:15 05/22/23 11:31 Temperature Pulse Rate 73 71 72 Respiratory Rate Blood Pressure 138/85 131/77 109/66 Pulse Oximetry Oxygen Delivery Oxygen Flow Rate Fraction of Inspired Oxygen 05/22/23 11:45 05/22/23 12:00 05/22/23 12:15 Temperature Pulse Rate 73 71 73 Respiratory Rate Blood Pressure 115/72 108/67 125/81 Pulse Oximetry Oxygen Delivery Oxygen Flow Rate Fraction of Inspired Oxygen 05/22/23 12:30 05/22/23 12:45 05/22/23 14:46 Temperature Pulse Rate 71 74 82 Respiratory Rate 18 Blood Pressure 113/65 143/73 H Pulse Oximetry Oxygen Delivery Oxygen Flow Rate Fraction of Inspired Oxygen 05/22/23 15:03 05/22/23 15:07 05/22/23 14:45 Temperature 96.9 F L Pulse Rate 84 81 Respiratory Rate 18 16 Blood Pressure 148/90 H Pulse Oximetry 100 92 Oxygen Delivery Room Air Oxygen Flow Rate Fraction of Inspired Oxygen Intake/Output Intake/Output: Intake & Output 05/19/23 05/20/23 05/21/23 05/22/23 23:59 23:59 23:59 23:59 Intake Total 980 200 240 Output Total 725 1303 200 Balance 255 -1103 -200 240 Meds/Results Medications: Active Medications Generic Name Dose Route Start Last Admin Trade Name Freq PRN Reason Stop Dose Admin Aceta
--- NOTE | 2023-05-22 20:25 | PC.NURSE ---
dialysis site is bleeding copiously after first use called MILAGRO Aguilar to access the site, ice applied to site currently, inquired about cxr or chest Ct to assess dialysis site.
--- NOTE | 2023-05-22 20:29 | PC.NURSE ---
MILAGRO Monk assessed site, states site ok at this time, stated bleeding due to new use of site. No need for further orders at this time.
--- NOTE | 2023-05-22 22:03 | PC.NURSE ---
patient dressing saturated again.
--- NOTE | 2023-05-22 22:16 | PC.NURSE ---
dialysis site continues to ooze bloody, MD Vaca assessed and placed a pressure dressing to the site. MD Vaca states that site is good, but the insertion site is too big. Informed to order silver nitrate to apply if site continues to ooze.
[2023-05-23] VITALS (10 sets, daily range): BP systolic 148–161; BP diastolic 89–90; PULSE 81–93; RESP 18; TEMP 36.5–36.6; O2SAT 90–98
[2023-05-23] MEDS: IPRATROPIUM BR 0.02% INH SOLN 0.5 MG/2.5 ML VIAL INHALATION ×3 (02:53→13:02)
[2023-05-23] MEDS: ALBUTEROL SULFATE NEB 2.5 MG/3 ML INH INHALATION ×3 (02:55→13:01)
[2023-05-23] MEDS: LEVOTHYROXINE SODIUM 112 MCG TABLET PO (05:39)
[2023-05-23 07:20] LABS: Basophils Percent Auto 0.5 % (0.2-1.2); Eosinophils Absolute Auto 0.1 K/mm3 (0-0.3); Eosinophils Percent Auto 1.4 % (0-4.4); Hematocrit 33.5 % (42.0-52.0); Hemoglobin 9.9 g/dL (14.0-18.0); Immature Granulocyte Absolute 0.04 K/mm3 (0.00-0.031); Immature Granulocyte Percent A 0.5 % (0-0.5); Lymphocytes Absolute Auto 1.15 K/mm3 (0.9-3.2); Lymphocytes Percent Auto 14.6 % (18.3-44.2); Mean Corpuscular HGB Conc 29.6 g/dl (32-36); Mean Corpuscular Hemoglobin 27.9 pg (26-34); Mean Corpuscular Volume 94.4 fl (80-100); Mean Platelet Volume 11.4 fl (7.4-10.4); Monocytes Absolute Auto 0.6 K/mm3 (0.1-0.6); Monocytes Percent Auto 7.4 % (2.6-8.5); Neutrophils Percent Auto 75.6 % (45.5-73.1); Platelet Count Result 187 k/mm3 (150-375); Red Blood Count 3.55 M/mm3 (4.6-6.20); Red Cell Distribution Width 15.4 % (11.5-14.5); White Blood Count 7.9 K/mm3 (4.5-10.0)
--- NOTE | 2023-05-23 07:33 | PC.NURSE ---
MD Morrow informed that dialysis site is still bleeding and MD Vaca ordered silver nitrate for dialysis site to get bleeding to stop. Informed to apply silver nitrate and new pressure dressing and informed general surgery.
--- NOTE | 2023-05-23 07:39 | PC.NURSE ---
called general surgery office to inform that dialysis site continues to oozze blood.
[2023-05-23 07:42] LABS: Alanine Aminotransferase 15 U/L (6-50); Albumin Level 3.6 g/dL (3.5-5.1); Alkaline Phosphatase 73 U/L (38-126); Anion Gap 6 mmol/L (8-16); Aspartate Amino Transferase 38 U/L (17-59); Bilirubin,Total 0.4 mg/dL (0.2-1.3); Blood Urea Nitrogen 38 mg/dL (9-20); Calcium 8.6 mg/dL (8.4-10.2); Carbon Dioxide 36 mmol/L (22-30); Chloride 97 mmol/L (98-107); Estimated CRCL calculation 19 ml/min; Estimated Glomerular Filt Rate 16; Glucose 88 mg/dL (65-110); Magnesium 1.9 mg/dL (1.6-2.3); Phosphorus 3.5 mg/dL (2.5-4.5); Potassium 3.5 mmol/L (3.4-5.0); Sodium 139 mmol/L (137-145)
--- NOTE | 2023-05-23 07:50 | PC.NURSE ---
MD Reilly informed of oozing dialysis site, ordered to place surgicel on dialysis access site and reapply a pressure dressing to the area. d/c silver nitrate order.
--- NOTE | 2023-05-23 09:05 | PC.NURSE ---
Left chest dialysis catheter site found with saturated pressure dressing from previous shift. Dressing removed. Site cleansed. No obvious signs of bleeding after dressing removed. Surgicel and pressure dressing applied. Patient tolerated well.
[2023-05-23] MEDS: VITAMIN B CMPLX/VIT C/FOLIC AC 1 CAPSULE 1 CAP PO (09:07)
[2023-05-23] MEDS: calcitrioL 0.25 MCG CAPSULE PO (09:07)
[2023-05-23] MEDS: PRAVASTATIN SODIUM 20 MG TABLET 40 MG PO (09:07)
[2023-05-23] MEDS: CELLULOSE OXIDIZED 4 x 8 INCH 1 PKT XX (09:09)
[2023-05-23] MEDS: FAMOTIDINE 20 MG/2 ML VIAL 40 MG IV PUSH (09:12)
--- NOTE | 2023-05-23 10:47 | PC.NURSE ---
Notified Dr. Whitaker via call to office of left chest dialysis site dressing. Dressing is saturated with blood again.
[2023-05-23] MEDS: LIDO 1%/EPINEPHRINE 1:100,000 20 ML VIAL 10 ML INFILTRATE (11:47)
--- NOTE | 2023-05-23 12:31 | PM.PNNEP ---
Progress Note: A&P Assessment and Plan (1) Chronic kidney disease, stage 5: Code(s): N18.5 - Chronic kidney disease, stage 5 Status: Acute Assessment and Plan: See discussion below (2) PIERCE (acute kidney injury): Code(s): N17.9 - Acute kidney failure, unspecified Status: Acute Assessment and Plan: Acute kidney injury:non resolved, treat as ESRD? Chronic kidney disease stage 5: as above Underlying cause of the chronic kidney disease diabetes mellitus with nephropathy Probable benign essential hypertensive renal disease renal failure History of secondary hyperparathyroidism for which he was on calcitriol therapy, maintaining calcitriol in [facility] probably combination of worsened renal function, pioglitazone, cor pulmonale with right ventricular systolic dysfunction. Anemia of chronic kidney disease Plan: -hemodialysis planned for tomorrow -dialysis placement: will go to [facility] in [place]: plan dialysis Sat and then discharge, can wait until Friday for the next dialysis session. I confirmed with dialysis unit that he can start there on Friday. -given that creatinine increase still persists, and rises, treated as having ESRD Subjective Date/time seen: 05/23/23 12:31 Interval history: F/u ESRD Feeling better, no shortness of breath Exam Narrative: Seen and examined in his room, trach collar, comfortable with breathing at rest JVD is hard to see, regular rate rhythm, no gallop, no rub, equal breath sounds, nor otherwise, soft nontender abdomen, no masses, alert and oriented to situation, at asking questions by mouth words, edema greatly diminished. Objective Data Vital Signs Vital Signs: Vital Signs - 24 hr 05/22/23 13:00 05/22/23 13:56 05/22/23 12:45 Temperature 36.5 C Pulse Rate 69 77 74 Respiratory Rate 16 Blood Pressure 104/66 156/90 H 143/73 H Pulse Oximetry Oxygen Delivery Oxygen Flow Rate Fraction of Inspired Oxygen 05/22/23 14:46 05/22/23 15:03 05/22/23 15:07 Temperature 36.1 C L Pulse Rate 82 84 81 Respiratory Rate 18 18 16 Blood Pressure 148/90 H Pulse Oximetry 100 Oxygen Delivery Oxygen Flow Rate Fraction of Inspired Oxygen 05/22/23 14:45 05/22/23 13:15 05/22/23 13:30 Temperature Pulse Rate 71 74 Respiratory Rate Blood Pressure 108/68 118/76 Pulse Oximetry 92 Oxygen Delivery Room Air Oxygen Flow Rate Fraction of Inspired Oxygen 05/22/23 13:45 05/22/23 13:47 05/22/23 19:33 Temperature Pulse Rate 75 77 Respiratory Rate Blood Pressure 140/92 H 162/102 H Pulse Oximetry 100 Oxygen Delivery Room Air Oxygen Flow Rate Fraction of Inspired Oxygen 05/22/23 21:40 05/22/23 21:41 05/22/23 21:53 Temperature Pulse Rate 86 89 Respiratory Rate 18 18 Blood Pressure Pulse Oximetry 90 Oxygen Delivery High Flow Therapy with Tr Oxygen Flow Rate 25 Fraction of Inspired Oxygen 05/23/23 02:55 05/23/23 06:00 05/23/23 07:20 Temperature 36.6 C Pulse Rate 85 86 81 Respiratory Rate 18 18 18 Blood Pressure 161/89 H Pulse Oximetry 92 98 Oxygen Delivery High Flow Therapy with Tr Oxygen Flow Rate 25 Fraction of Inspired Oxygen 05/23/23 07:20 05/23/23 08:30 Temperature Pulse Rate 81 83 Respiratory Rate 18 18 Blood Pressure Pulse Oximetry Oxygen Delivery Oxygen Flow Rate Fraction of Inspired Oxygen Intake/Output Intake/Output: Intake & Output 05/20/23 05/21/23 05/22/23 05/23/23 23:59 23:59 23:59 23:59 Intake Total 200 880 250 Output Total [id number] [facility] -200 -1120 250 Meds/Results Medications: Active Medications Generic Name Dose Route Start Last Admin Trade Name Freq PRN Reason Stop Dose Admin Acetaminophen 1,000 mg 05/10/23 01:54 05/10/23 09:11 Acetaminophen 500 Mg Tablet PO 1,000 mg Q6H PRN Administration Mild Pain (1-3) or Fever Hy
[2023-05-23] MEDS: CALCIUM CARBONATE (TUMS) 500 MG (200 MG ELEMENTAL) 400 MG PO ×2 (13:21→17:24)
--- NOTE | 2023-05-23 14:10 | PC.NURSE ---
Called with medical update per patient request. All questions and concerns noted and answered. Prompted to call if any questions or concerns.
--- NOTE | 2023-05-23 15:29 | PM.IMPN ---
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 hyperparathyroidism, presented with a few weeks of worsening swelling of lower extremities and scrotal swelling. He was given amoxicillin 1 week prior for b/l LE cellulitis. Admitted on 05/08 The patient has had a very complicated hospital course. His anasarca on presentation due to multimodal presence of pioglitazone use (since dc'ed), worsening renal function, cor pulmonale with R ventricular systolic dysfunction. Diuretics not effective as his kidney function continued to worsen. He was transferred to ICU as he developed acidosis and acute hypoxic hypercarbic respiratory failure. Pt stabilized with that and dialysis and eventually extubated. He returned to med surg with tele and has fared very well relatively. RT places airvo for humidity only, he otherwise does not require o2 supplementation. He was treated for sepsis/cellulitis of LEs/pneumonia with abx effectively. On 05/23 the patient is at his baseline with the addition of a L tunnelled dialysis catheter. His sCR has not come down and is being treated as ESRD and has been setup for MWF at [facility] in [place]. Plan per Dr. Davis nephrology is to have dialysis on 05/24 and then he can go home without needing dialysis until 05/28. He still makes urine. lovenox for dvt prophylaxis full code Subjective Date/time seen: 05/23/23 15:29 Interval history: NAOE. patient is without complaints, aside from wanting to leave the hospital immediately Review of Systems Review of Systems: All systems reviewed & are unremarkable except as noted in HPI and below (subjective) Exam Const: General: comfortable and no acute distress Eyes: Pupils: Equal, round and reactive pupils present Neck: Neck: supple Resp: Effort & Inspection: normal respiratory effort Auscultation: clear to auscultation bilaterally Cardio: Rate: regular rate Rhythm: regular rhythm GI: GI Palp: Yes Soft to palpation Extrem: General: no edema Objective Data Vital Signs Vital Signs: Vital Signs - 24 hr 05/22/23 19:33 05/22/23 21:40 05/22/23 21:41 Temperature Pulse Rate 86 Respiratory Rate 18 Blood Pressure Pulse Oximetry 100 90 Oxygen Delivery Room Air High Flow Therapy with Tr Oxygen Flow Rate 25 Fraction of Inspired Oxygen 05/22/23 21:53 05/23/23 02:55 05/23/23 06:00 Temperature 97.9 F Pulse Rate 89 85 86 Respiratory Rate 18 18 18 Blood Pressure 161/89 H Pulse Oximetry 92 Oxygen Delivery Oxygen Flow Rate Fraction of Inspired Oxygen 05/23/23 07:20 05/23/23 07:20 05/23/23 08:30 Temperature Pulse Rate 81 81 83 Respiratory Rate 18 18 18 Blood Pressure Pulse Oximetry 98 Oxygen Delivery High Flow Therapy with Tr Oxygen Flow Rate 25 Fraction of Inspired Oxygen 05/23/23 13:05 05/23/23 13:15 05/23/23 09:05 Temperature Pulse Rate 86 85 Respiratory Rate 18 18 Blood Pressure Pulse Oximetry 95 Oxygen Delivery High Flow Therapy with Tr Oxygen Flow Rate 25 Fraction of Inspired Oxygen Intake/Output Intake/Output: Intake & Output 05/20/23 05/21/23 05/22/23 05/23/23 23:59 23:59 23:59 23:59 Intake Total 200 880 250 Output Total 0497 322 1840 [facility]1103 -200 -1120 250 Meds/Results Medications: Active Medications Generic Name Dose Route St
[2023-05-23] MEDS: ENOXAPARIN 30 MG/0.3 ML SYRINGE SUB-Q (17:25)
[2023-05-24] VITALS (16 sets, daily range): BP systolic 117–172; BP diastolic 66–103; PULSE 78–95; RESP 18–20; TEMP 36.2–36.8; O2SAT 93–94
[2023-05-24] MEDS: LEVOTHYROXINE SODIUM 112 MCG TABLET PO (05:58)
[2023-05-24 06:31] LABS: Basophils Absolute Auto 0.1 K/mm3 (0.0-0.1); Basophils Percent Auto 0.7 % (0.2-1.2); Eosinophils Absolute Auto 0.2 K/mm3 (0-0.3); Eosinophils Percent Auto 1.8 % (0-4.4); Hematocrit 32.5 % (42.0-52.0); Hemoglobin 9.7 g/dL (14.0-18.0); Immature Granulocyte Absolute 0.03 K/mm3 (0.00-0.031); Immature Granulocyte Percent A 0.4 % (0-0.5); Lymphocytes Absolute Auto 1.12 K/mm3 (0.9-3.2); Lymphocytes Percent Auto 13.6 % (18.3-44.2); Mean Corpuscular HGB Conc 29.8 g/dl (32-36); Mean Corpuscular Hemoglobin 27.4 pg (26-34); Mean Corpuscular Volume 91.8 fl (80-100); Mean Platelet Volume 11.8 fl (7.4-10.4); Monocytes Absolute Auto 0.7 K/mm3 (0.1-0.6); Monocytes Percent Auto 8.2 % (2.6-8.5); Neutrophils Absolute Auto 6.2 K/mm3 (1.3-6.7); Neutrophils Percent Auto 75.3 % (45.5-73.1); Platelet Count Result 202 k/mm3 (150-375); Red Blood Count 3.54 M/mm3 (4.6-6.20); Red Cell Distribution Width 15.2 % (11.5-14.5); White Blood Count 8.2 K/mm3 (4.5-10.0)
[2023-05-24 06:42] LABS: Alanine Aminotransferase 13 U/L (6-50); Albumin Level 3.5 g/dL (3.5-5.1); Alkaline Phosphatase 79 U/L (38-126); Anion Gap 8 mmol/L (8-16); Aspartate Amino Transferase 37 U/L (17-59); Bilirubin,Total 0.5 mg/dL (0.2-1.3); Blood Urea Nitrogen 47 mg/dL (9-20); Calcium 8.9 mg/dL (8.4-10.2); Carbon Dioxide 32 mmol/L (22-30); Chloride 96 mmol/L (98-107); Estimated CRCL calculation 17 ml/min; Estimated Glomerular Filt Rate 14; Glucose 89 mg/dL (65-110); Magnesium 1.8 mg/dL (1.6-2.3); Potassium 3.6 mmol/L (3.4-5.0); Sodium 136 mmol/L (137-145)
[2023-05-24 07:59] LABS: Platelet Estimate Adequate (Adequate)
[2023-05-24 08:00] LABS: Anisocytosis 1+ (NORMAL); Hypochromasia 1+ (NORMAL); Schistocytes None Seen (NORMAL)
[2023-05-24] MEDS: CALCIUM CARBONATE (TUMS) 500 MG (200 MG ELEMENTAL) 400 MG PO ×2 (08:28→13:05)
[2023-05-24] MEDS: ENOXAPARIN 30 MG/0.3 ML SYRINGE SUB-Q (08:29)
[2023-05-24] MEDS: HEPARIN SODIUM 1,000 UNITS/ML VIAL 1000 UNITS IV PUSH (09:02)
[2023-05-24] MEDS: HEPARIN SODIUM 1,000 UNITS/ML VIAL 500 UNITS IV PUSH ×2 (09:05→10:05)
--- NOTE | 2023-05-24 09:27 | PM.DS ---
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 hyperparathyroidism, presented with a few weeks of worsening swelling of lower extremities and scrotal swelling. He was given amoxicillin 1 week prior for b/l LE cellulitis. Admitted on 05/08 The patient has had a very complicated hospital course. His anasarca on presentation due to multimodal presence of pioglitazone use (since dc'ed), worsening renal function, cor pulmonale with R ventricular systolic dysfunction. Diuretics not effective as his kidney function continued to worsen. He was transferred to ICU as he developed acidosis and acute hypoxic hypercarbic respiratory failure. Pt stabilized with that and dialysis and eventually extubated. He returned to med surg with tele and has fared very well relatively. RT places airvo for humidity only, he otherwise does not require o2 supplementation. He was treated for sepsis/cellulitis of LEs/pneumonia with abx effectively. On 05/23 the patient is at his baseline with the addition of a L tunnelled dialysis catheter. His sCR has not come down and is being treated as ESRD and has been setup for MWF at [facility] in [place]. Plan per Dr. Davis nephrology is to have dialysis on 05/24 and then he can go home without needing dialysis until 05/28. He still makes urine. lovenox for dvt prophylaxis full code DS: Summary Hospital Course Hospital Course: Patient brought to the ER for evaluation of progressive swelling all over his body as well as rash in lower extremities and scrotum Narrative: He is a very unfortunate 58 years old white male with chronic multiple medical issues started post tracheostomy and feeding tube placement, who was brought to the ER for evaluation by her daughter for worsening swelling all over his body which is going on for a couple of months, as well as rash in his lower extremities and his scrotum area.? He was evaluated workup in the ER and found to be swollen with fluid retention.? BNP was elevated at more than 30,000.? Patient given 1 dose of IV Lasix 80 mg in the ER with good diuresis.? He also had mildly elevated cardiac enzymes done which are flat.? He denies any chest pain.? Blood cultures were ordered and patient started on IV Rocephin.? We going to admit the patient for medical management, close cardiopulmonary monitoring, Cardiology and Neurology evaluations and further workup. Multiple consultations were done and dialysis was started. Today patient is feeling better and was discharge home in stable condition. Time Spent with Patient Time attestation: Total time spent providing and/or coordinating discharge services: Exam Narrative: General: Pt is with tracheostomy in situ on Airvo 30 liter/minute at 21% Lungs/Chest: Trachea central Coarse BS B/L, No crackles or wheezing. Patient has past tracheostomy tube placement size 8 Shiley Cardiac: RRR. Normal S1 S2. No murmurs Circulation: Pedal pulses are intact and symmetrical. Abdomen: Decreased bowel sounds. Peg tube in place soft. NT. ND. Extremities: Trace edema : Hay in place Neurologic: Awake and alert following commands Skin: Several blisters on legs which are fluid-filled, several areas of skin breakdown, redness on the shins, chronic venous st
--- NOTE | 2023-05-24 10:33 | PM.PNNEP ---
Progress Note: A&P Assessment and Plan (1) End stage renal disease: Code(s): N18.6 - End stage renal disease Status: Acute Assessment and Plan: The patient is getting dialysis routinely now. Dr. Davis his decided that this is end-stage renal disease. Will finish the treatment and then he will be discharged. The patient has anemia. He is getting Epogen. The patient has diabetes. Getting Accu-Cheks and sliding scale insulin. Management per hospitalists. The patient has hyperlipidemia and is on pravastatin. Patient has renal osteodystrophy. He is on calcitriol and also calcium carbonate. Subjective Date/time seen: 05/24/23 10:33 Interval history: Patient is feeling okay. Eager for discharge. He is on dialysis and tolerating it well. He was seen at 9:50 a.m. Review of Systems Cardiovascular: Cardiovascular: Reports no additional cardiovascular complaints Respiratory: Respiratory: Reports no additional respiratory complaints Gastrointestinal: Gastrointestinal: Reports no additional gastrointestinal complaints Genitourinary: Genitourinary: Reports no additional male genitourinary complaints Exam Narrative: WDWN in NAD skin no rash head ncat Tracheostomy in place. lungs clear cor reg no rub abd BS+ nontender and soft ext no edema. Objective Data Vital Signs Vital Signs: Vital Signs - 24 hr 05/23/23 13:05 05/23/23 13:15 05/23/23 19:26 Temperature Pulse Rate 86 85 Respiratory Rate 18 18 Blood Pressure Pulse Oximetry 97 Oxygen Delivery High Flow Therapy with Tr Oxygen Flow Rate 25 Fraction of Inspired Oxygen 05/23/23 21:03 05/23/23 21:51 05/24/23 06:00 Temperature 97.7 F 97.2 F L Pulse Rate 93 92 95 Respiratory Rate 18 18 Blood Pressure 148/90 H 153/92 H Pulse Oximetry 90 95 94 Oxygen Delivery High Flow Therapy with Tr Oxygen Flow Rate 25 Fraction of Inspired Oxygen 05/24/23 09:05 05/24/23 08:55 05/24/23 09:40 Temperature 98.3 F Pulse Rate 86 83 78 Respiratory Rate 18 Blood Pressure 160/90 H 142/83 H 117/66 Pulse Oximetry Oxygen Delivery Oxygen Flow Rate Fraction of Inspired Oxygen 05/24/23 10:00 05/24/23 09:20 05/24/23 10:20 Temperature Pulse Rate 80 78 80 Respiratory Rate Blood Pressure 137/80 134/80 143/85 H Pulse Oximetry Oxygen Delivery Oxygen Flow Rate Fraction of Inspired Oxygen Intake/Output Intake/Output: Intake & Output 05/21/23 05/22/23 05/23/23 05/24/23 23:59 23:59 23:59 23:59 Intake Total 880 250 750 Output Total 200 2000 350 Balance -200 -1120 250 400 Meds/Results Medications: Active Medications Generic Name Dose Route Start Last Admin Trade Name Freq PRN Reason Stop Dose Admin Acetaminophen 1,000 mg 05/10/23 01:54 05/10/23 09:11 Acetaminophen 500 Mg Tablet PO 1,000 mg Q6H PRN Administration Mild Pain (1-3) or Fever Hydrocodone Bitart/Acetaminophen 1 tab 05/20/23 15:54 Hydrocodone/Acetaminophen (*Crx) 5-325 Mg Tablet PO Q4H PRN Pain Rated 4-6 Calcitriol 0.25 mcg 05/09/23 09:00 05/23/23 09:07 Calcitriol 0.25 Mcg Capsule PO 0.25 mcg DAILY [facility] Administration Calcium Carbonate 400 mg 05/09/23 17:00 05/24/23 08:28 Calcium Carbonate (Tums) 500 Mg (200 Mg Elemental) PO 400 mg TIDWM [facility] Administration Enoxaparin Sodium 30 mg 05/21/23 09:00 05/24/23 08:29 Enoxaparin 30 Mg/0.3 Ml Syringe SUB-Q 30 mg DAILY ISELA Administration Famotidine 20 mg 05/26/23 21:00 Famotidine 20 Mg Tablet PO MOWEFR@2100 [facility] Levothyroxine Sodium 112 mcg 05/09/23 06:30 05/24/23 05:58 Levothyroxine Sodium 112 Mcg Tablet PO 112 mcg DAILY@0630 [facility] Administration Morphine Sulfate 1 mg 05/20/23 15:54 Morphine Sulfate (*Crx) 4 Mg/Ml Inj IV PUSH Q2H PRN Pain Rated 7-10 Pravastatin Sodium 40 mg 05/09/23 09:00 05/23/23 09:07 Pravastatin Sodium 20 Mg Tablet PO 40 mg
[2023-05-24] MEDS: HEPARIN SODIUM 1,000 UNITS/ML VIAL 6000 UNITS IV PUSH (12:18)
[2023-05-24] MEDS: VITAMIN B CMPLX/VIT C/FOLIC AC 1 CAPSULE 1 CAP PO (12:58)
[2023-05-24] MEDS: calcitrioL 0.25 MCG CAPSULE PO (12:58)
[2023-05-24] MEDS: PRAVASTATIN SODIUM 20 MG TABLET 40 MG PO (12:58)
== END 2023-05-24 13:54 | disposition home or self-care (01) | DRG 194 ==
LOC: ANHED 20:59 → ANHIMU 22:31 → ANH3MEDSUR 05-24 09:27 → ANHIMU 05-27 09:42 → ANHICU 05-27 09:42
PROVIDERS: Family Medicine; General Practice; Internal Medicine; Internal Medicine Nephrology; Surgery; Admitting Provider Internal Medicine; Emergency Provider Emergency Medicine; Visit Provider Internal Medicine
PROC: 0JH60XZ Insertion of Tunneled Vascular Access Device into Chest Subcutaneous Tissue and Fascia, Open Approach (ICD-10-PCS; CPT 36908; principal; 2023-05-20 12:30)
DX: I13.2 Hypertensive heart and chronic kidney disease with heart failure and with stage 5 chronic kidney disease, or end stage renal disease (principal); I50.23 Acute on chronic systolic (congestive) heart failure; J96.02 Acute respiratory failure with hypercapnia; R65.21 Severe sepsis with septic shock; N17.9 Acute kidney failure, unspecified; E11.22 Type 2 diabetes mellitus with diabetic chronic kidney disease; E87.5 Hyperkalemia; L03.116 Cellulitis of left lower limb; N25.81 Secondary hyperparathyroidism of renal origin; Z93.0 Tracheostomy status; Z93.1 Gastrostomy status; Z89.411 Acquired absence of right great toe; Z79.84 Long term (current) use of oral hypoglycemic drugs; Z20.822 Contact with and (suspected) exposure to COVID-19
CPT/HCPCS: 31500; 36415; 36600; 71045; 74018; 76770; 77001; 80048; 80053; 80202; 82375; 82805; 82948; 83036; 83050; 83605; 83735; 83880; 84100; 84145; 84484; 85025; 85027; 85610; 85730; 86704; 86706; 86803; 86850; 86900; 86901; 87040; 87070; 87077; 87186; 87205; 87340; 87449; 87637; 87641; 87899; 92610; 93005; 93306; 94002; 94003; 94640; 99285; A9270; C1750; C1752; G0257; J0456; J0690; J0692; J0696; J1644; J1650; J1815; J1940; J2250; J2270; J2405; J2704; J3370; J3475; J7030; J7040; J7050; P9047; Q5105

== ENCOUNTER 2023-07-18 11:09 | Observation (INO) | payer OTHER, SELFPAY ==
[2023-07-18] VITALS (23 sets, daily range): BP systolic 148–184; BP diastolic 90–124; PULSE 65–92; RESP 16–22; TEMP 35.6–37; O2SAT 74–100; BMI 28.1
--- NOTE | ~2023-07-18 | XR_ITS ---
Portable chest x-ray Comparison: 05/20/2023 Clinical History: Shortness of breath Findings: Moderate left pleural effusion is present. Minimal right pleural effusion present. There i s mild bibasilar pulmonary edema/atelectasis. Left-sided central venous line is unchanged. Cardiomed iastinal silhouette is stable. Bones and soft tissues are unremarkable. Impression: Moderate left pleural effusion and minimal right pleural effusion. Mild bibasilar pulmonary edema/atelectasis. Stable support line. Reviewed, dictated and finalized at location M. RUMENT ASSEMBLY SUPERVISOR Impression: Moderate left pleural effusion and minimal right pleural effusion. Mild bibasilar pulmonary edema/atelectasis. Stable support line.
--- NOTE | 2023-07-18 12:15 | ED.GENADULT ---
HPI - General Adult General Chief complaint: Recheck/Abnormal Lab/Rx Stated complaint: dialysis catherter not working Time Seen by Provider: 07/18/23 11:43 History of Present Illness HPI narrative: Patient is a 58-year-old male who presents the ER with dialysis catheter complications. Patient was due for dialysis today after missing at Friday. His edger runner is Dr. Davis. They tried to access his dialysis catheter and was clogged. They sent him here for further evaluation. He has no chest pain or shortness of breath. Patient does have throat cancer and has a feeding tube and a tracheostomy. Has no other complaints at this time. Related Data Home Medications Medication Instructions Recorded Confirmed amlodipine 10 mg tablet 10 mg PO DAILY 10/09/20 05/08/23 calcitriol 0.25 mcg capsule 0.25 mcg PO DAILY 10/09/20 05/08/23 carvedilol 12.5 mg tablet 12.5 mg PO Q12H 10/09/20 05/08/23 levothyroxine 112 mcg capsule 112 mcg PO DAILY 10/09/20 05/08/23 losartan 100 mg tablet 100 mg PO DAILY 10/09/20 05/08/23 pioglitazone 30 mg tablet 30 mg PO DAILY 10/09/20 05/08/23 glimepiride 2 mg tablet 2 mg PO DAILY 05/08/23 05/08/23 pravastatin 40 mg tablet 40 mg PO DAILY 05/08/23 05/08/23 Allergies Allergy/AdvReac Type Severity Reaction Status Date / Time No Known Allergies Allergy Unknown Verified 07/18/23 12:03 Review of Systems Review of Systems: All systems reviewed & are unremarkable except as noted in HPI and below PMFSH Past Medical History Medical History (Updated 07/18/23 @ 19:43 by Eliud Mcghee MD) Chronic respiratory failure with hypoxia, on home oxygen therapy Congestive heart failure End-stage renal disease on hemodialysis Erythropoietin deficiency anemia Hyperlipidemia Hypertension Hypothyroidism Laryngeal cancer (2016) Status post chemoradiation. Renal osteodystrophy Right-sided heart failure Type 2 diabetes mellitus Surgical History Surgical History (Updated 07/18/23 @ 14:28 by Simi Swanson PA-C) Amputation of right great toe History of percutaneous endoscopic gastrostomy History of throat surgery History of tracheostomy Family History Family History Mother Family history of diabetes mellitus in first degree relative Diabetes mellitus Hypertension Heart disease Cerebrovascular accident Father Alcoholism Sibling Alcoholism Diabetes mellitus Hypertension Heart disease Cerebrovascular accident Other Family history of lung cancer Social History Social History (Updated 07/18/23 @ 14:29 by Simi Swanson PA-C) Social History: Surrogate medical decision maker: Dasha Saxena, spouse. Code status: Full code. Smoking packs per day: 2 Smoking cigarettes per day: 40.0 Years smoked: 35 Smoking pack-years: 70.00 Smoking status: Former smoker Second hand tobacco smoke exposure: No Alcohol intake: never Substance use: never Substance use type: does not use Do You Feel Safe in your Home?: Yes Lack of Transportation: No Lack of Food: Never True Current Housing: I Have Housing Concerned About Future Housing: No Difficulty Paying Gas/Electric Bills: No Difficulty Paying for Meds: No Currently Unemployed: No Education: High School Diploma/GED Difficulty w/ Childcare or Family Care: No Additional living arrangements comments: Lives with spouse in [place]. They have 1 child. 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 care concerns: No Exam Narrative: GENERAL: chronically ill-appearing, well-nourished, and in no acute distress. HEAD: Normocephalic, atraumatic. ENT: Mucous membranes moist. NECK: Supple. tracheostomy present without any skin issues. CHEST: Clear to auscultation but diminished on left. No respiratory distress. HEART: Regular rate and rhythm. Normal peripheral pulses. ABDOMEN: Soft, nontender, nondistended. EXTREMI
[2023-07-18 12:29] LABS: Alanine Aminotransferase 11 U/L (6-50); Albumin Level 3.9 g/dL (3.5-5.1); Alkaline Phosphatase 77 U/L (38-126); Anion Gap 8 mmol/L (8-16); Aspartate Amino Transferase 29 U/L (17-59); Bilirubin,Total 0.5 mg/dL (0.2-1.3); Blood Urea Nitrogen 47 mg/dL (9-20); Calcium 9.2 mg/dL (8.4-10.2); Carbon Dioxide 35 mmol/L (22-30); Chloride 94 mmol/L (98-107); Estimated CRCL calculation 17 ml/min; Estimated Glomerular Filt Rate 14; Glucose 120 mg/dL (65-110); Potassium 4.1 mmol/L (3.4-5.0); Sodium 137 mmol/L (137-145)
[2023-07-18 12:30] LABS: Basophils Percent Auto 0.6 % (0.2-1.2); Eosinophils Absolute Auto 0.1 K/mm3 (0-0.3); Eosinophils Percent Auto 1.2 % (0-4.4); Hematocrit 35.2 % (42.0-52.0); Immature Granulocyte Absolute 0.03 K/mm3 (0.00-0.031); Immature Granulocyte Percent A 0.4 % (0-0.5); Lymphocytes Absolute Auto 0.61 K/mm3 (0.9-3.2); Lymphocytes Percent Auto 8.9 % (18.3-44.2); Mean Corpuscular HGB Conc 28.4 g/dl (32-36); Mean Corpuscular Hemoglobin 27.9 pg (26-34); Mean Corpuscular Volume 98.3 fl (80-100); Mean Platelet Volume 10.4 fl (7.4-10.4); Monocytes Absolute Auto 0.3 K/mm3 (0.1-0.6); Monocytes Percent Auto 4.8 % (2.6-8.5); Neutrophils Absolute Auto 5.8 K/mm3 (1.3-6.7); Neutrophils Percent Auto 84.1 % (45.5-73.1); Platelet Count Result 249 k/mm3 (150-375); Red Blood Count 3.58 M/mm3 (4.6-6.20); Red Cell Distribution Width 16.6 % (11.5-14.5); White Blood Count 6.9 K/mm3 (4.5-10.0)
[2023-07-18 12:53] LABS: Anisocytosis 1+ (NORMAL); Ovalocytes 1+ (NORMAL); Platelet Estimate Adequate (Adequate); Schistocytes None Seen (NORMAL)
--- NOTE | 2023-07-18 13:10 | PM.CNGS ---
Assessment and Plan Assessment and plan (1) CRF (chronic renal failure): Code(s): N18.9 - Chronic kidney disease, unspecified Status: Acute Assessment and Plan: full set up for emergent replacement of the operating room given that he has not had dialysis since Friday History of Present Illness Consult details Consult date: 07/18/23 Reason for consult: central line Requesting physician: Eliud Mcghee MD Narrative: The patient is a 58-year-old male with multiple medical issues including history of laryngeal cancer presenting to the emergency department with nonfunctioning left IJ tunneled hemodialysis catheter. The patient last received dialysis on Friday 07/14 and notes no complications at that time. The patient has skipped his dialysis session on Friday and presented today for dialysis. He reports that the catheter was found to be clogged they were unable to get it open. The current catheter was placed in May of [address] Whitaker. Review of Systems Review of Systems: All systems reviewed & are unremarkable except as noted in HPI and below PMFSH Past Medical History Medical History Amputated toe CRF (chronic renal failure) Diabetes Erythropoietin deficiency anemia Generalized edema HTN (hypertension) with goal to be determined Hyperlipidemia Hypertension Hypothyroidism Renal osteodystrophy Tracheostomy in place Surgical History Surgical History H/O foot surgery Amputation right great toe History of throat surgery Family History Family History Mother Family history of diabetes mellitus in first degree relative Diabetes mellitus Hypertension Heart disease Cerebrovascular accident Father Alcoholism Sibling Alcoholism Diabetes mellitus Hypertension Heart disease Cerebrovascular accident Other Family history of lung cancer Social History Social History Social History: The patient is and has 1 child. The patient is a former smoker. He denies any alcohol marijuana or illicit drugs. 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 Code status full code Smoking packs per day: 2 Smoking cigarettes per day: 40.0 Years smoked: 35 Smoking pack-years: 70.00 Smoking status: Former smoker Tobacco type: cigarettes Second hand tobacco smoke exposure: No Alcohol intake: never Substance use: never Substance use type: does not use Do You Feel Safe in your Home?: Yes Lack of Transportation: No Lack of Food: Never True Current Housing: I Have Housing Concerned About Future Housing: No Difficulty Paying Gas/Electric Bills: No Difficulty Paying for Meds: No Currently Unemployed: No Education: High School Diploma/GED Difficulty w/ Childcare or Family Care: No Gender identity (if verbalized by the patient): Male Spiritual care concerns: No Meds Home Medications and Allergies Home Medications Medication Instructions Recorded Confirmed Type amlodipine 10 mg tablet 10 mg PO DAILY 10/09/20 05/08/23 History calcitriol 0.25 mcg capsule 0.25 mcg PO DAILY 10/09/20 05/08/23 History carvedilol 12.5 mg tablet 12.5 mg PO Q12H 10/09/20 05/08/23 History levothyroxine 112 mcg capsule 112 mcg PO DAILY 10/09/20 05/08/23 History losartan 100 mg tablet 100 mg PO DAILY 10/09/20 05/08/23 History pioglitazone 30 mg tablet 30 mg PO DAILY 10/09/20 05/08/23 History glimepiride 2 mg tablet 2 mg PO DAILY 05/08/23 05/08/23 History pravastatin 40 mg tablet 40 mg PO DAILY 05/08/23 05/08/23 History Allergies Allergy/AdvReac Type Severity Reaction Status Date / Time No Known Allergies Allergy Unknown Verified 07/18/23 12:03 Vital Signs Vital Signs - 24 hr 07/18/23 11:33 07/18/23 11:
--- NOTE | 2023-07-18 13:15 | WPDHPUPDATE1 ---
History and Physical Update Update Date/Time: 07/18/23 13:15 History and Physical has been reviewed, including an updated exam of the patient. There are NO changes in the patient's condition. Risks, benefits, and alternatives have been discussed and questions answered. Patient agrees to proceed with procedure.
--- NOTE | 2023-07-18 14:17 | PM.IMHP ---
H&P: HPI History of Present Illness Date/Time: 07/18/23 14:00 Chief Complaint: Dialysis catheter complications. Narrative: This is a 58-year-old male with end-stage renal disease on hemodialysis, hypertension, hyperlipidemia, type 2 diabetes mellitus, and hypothyroidism who presented to the emergency department via EMS from dialysis with reports of dialysis catheter complications. The patient provides the following history. He presented today for dialysis where staff had difficulties using his catheter, presumably due to clotting. They tried several of their protocols but were unable to get it to function he was sent to the ED as he will need a new catheter placed for dialysis. He missed his session on Friday but he has no significant electrolyte abnormalities. Chest x-ray showed pleural effusions and pulmonary edema however he appears in no distress. He was initially put on 10 L to his trach but the pleth was not good and he has been weaned to 2 L and SpO2 is currently 100%. No fever, chills, sweats, cold and flu symptoms, chest pain, shortness of breath, palpitations, sensations of racing heart, nausea, vomiting, diarrhea, or dysuria. [facility] Past Medical History Medical History Chronic respiratory failure with hypoxia, on home oxygen therapy Congestive heart failure End-stage renal disease on hemodialysis Erythropoietin deficiency anemia Hyperlipidemia Hypertension Hypothyroidism Laryngeal cancer (2016) Status post chemoradiation. Renal osteodystrophy Right-sided heart failure Type 2 diabetes mellitus Surgical History Surgical History Amputation of right great toe History of percutaneous endoscopic gastrostomy History of throat surgery History of tracheostomy Family History Family History Mother Family history of diabetes mellitus in first degree relative Diabetes mellitus Hypertension Heart disease Cerebrovascular accident Father Alcoholism Sibling Alcoholism Diabetes mellitus Hypertension Heart disease Cerebrovascular accident Other Family history of lung cancer Social History Social History Social History: Surrogate medical decision maker: Dasha Saxena, spouse. Code status: Full code. Smoking packs per day: 2 Smoking cigarettes per day: 40.0 Years smoked: 35 Smoking pack-years: 70.00 Smoking status: Former smoker Second hand tobacco smoke exposure: No Alcohol intake: never Substance use: never Substance use type: does not use Do You Feel Safe in your Home?: Yes Lack of Transportation: No Lack of Food: Never True Current Housing: I Have Housing Concerned About Future Housing: No Difficulty Paying Gas/Electric Bills: No Difficulty Paying for Meds: No Currently Unemployed: No Education: High School Diploma/GED Difficulty w/ Childcare or Family Care: No Additional living arrangements comments: Lives with spouse in [place]. They have 1 child. 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 care concerns: No Meds Home Medications and Allergies Home Medications Medication Instructions Recorded Confirmed Type amlodipine 10 mg tablet 10 mg PO DAILY 10/09/20 05/08/23 History calcitriol 0.25 mcg capsule 0.25 mcg PO DAILY 10/09/20 05/08/23 History carvedilol 12.5 mg tablet 12.5 mg PO Q12H 10/09/20 05/08/23 History levothyroxine 112 mcg capsule 112 mcg PO DAILY 10/09/20 05/08/23 History losartan 100 mg tablet 100 mg PO DAILY 10/09/20 05/08/23 History pioglitazone 30 mg tablet 30 mg PO DAILY 10/09/20 05/08/23 History glimepiride 2 mg tablet 2 mg PO DAILY 05/08/23 05/08/23 History pravastatin 40 mg tablet 40 mg PO DAILY 05/08/23 05/08/23 History Allergies Allergy/AdvReac Type Severity Reac
--- NOTE | 2023-07-18 14:20 | WPDANESEPPF ---
Anes - Initial Pre Proc Eval Procedure: Operation Date: 07/18/23 15:00 Proposed Procedures p Removal and Insertion Duraflow Permacath Dialysis - Tika Perez MD Date/Time: 07/18/23 14:20 Surgeon: Benson Miguel MD Pre Op Diagnosis: Dialysis Catheter Malfunction, ESRD on Dialysis, P Patient Data Age: 58 Gender: M Height: 1.75 m Weight: 86.4 kg Last Vital Signs Temp 36.6 C 07/18/23 13:42 Pulse 78 07/18/23 13:42 Resp 18 07/18/23 13:42 BP 158/99 H 07/18/23 13:42 Pulse Ox 94 07/18/23 13:42 O2 Del Method Nasal Cannula 07/18/23 12:04 O2 Flow Rate 3 07/18/23 12:04 Allergies Allergy/AdvReac Type Severity Reaction Status Date / Time No Known Allergies Allergy Unknown Verified 07/18/23 12:03 Home Medications Medication Instructions Recorded Confirmed Type amlodipine 10 mg tablet 10 mg PO DAILY 10/09/20 05/08/23 History calcitriol 0.25 mcg capsule 0.25 mcg PO DAILY 10/09/20 05/08/23 History carvedilol 12.5 mg tablet 12.5 mg PO Q12H 10/09/20 05/08/23 History levothyroxine 112 mcg capsule 112 mcg PO DAILY 10/09/20 05/08/23 History losartan 100 mg tablet 100 mg PO DAILY 10/09/20 05/08/23 History pioglitazone 30 mg tablet 30 mg PO DAILY 10/09/20 05/08/23 History glimepiride 2 mg tablet 2 mg PO DAILY 05/08/23 05/08/23 History pravastatin 40 mg tablet 40 mg PO DAILY 05/08/23 05/08/23 History Laboratory Tests 07/18/23 07/18/23 12:09 12:10 WBC 6.9 K/mm3 (4.5-10.0) RBC 3.58 L M/mm3 (4.6-6.20) Hgb 10.0 L g/dL (14.0-18.0) Hct 35.2 L % (42.0-52.0) MCV 98.3 fl (80-100) MCH 27.9 pg (26-34) MCHC 28.4 L g/dl (32-36) RDW 16.6 H % (11.5-14.5) Plt Count 249 k/mm3 (150-375) MPV 10.4 fl (7.4-10.4) Immature Gran % (Auto) 0.4 % (0-0.5) Neut % (Auto) 84.1 H % (45.5-73.1) Lymph % (Auto) 8.9 L % (18.3-44.2) [place] % (Auto) 4.8 % (2.6-8.5) Eos % (Auto) 1.2 % (0-4.4) Baso % (Auto) 0.6 % (0.2-1.2) Lymph # (Auto) 0.61 L K/mm3 (0.9-3.2) [place] # (Auto) 0.3 K/mm3 (0.1-0.6) Eos # (Auto) 0.1 K/mm3 (0-0.3) Baso # (Auto) 0.0 K/mm3 (0.0-0.1) Abs Immat Gran (auto) 0.03 K/mm3 (0.00-0.031) Absolute Neuts (auto) 5.8 K/mm3 (1.3-6.7) Absolute Nucleated RBC 0.0 K/mm3 (0.0-0.012) Nucleated RBC % 0.0 % (0.0-0.2) Platelet Estimate Adequate (Adequate) Anisocytosis 1+ (NORMAL) Ovalocytes 1+ (NORMAL) Schistocytes None seen (NORMAL) PT 14.0 Seconds (11.1-14.7) INR 1.0 APTT 43.0 H SECONDS (22.3-36.8) Sodium 137 mmol/L (137-145) Potassium 4.1 mmol/L (3.4-5.0) Chloride 94 L mmol/L (98-107) Carbon Dioxide 35 H mmol/L (22-30) Anion Gap 8 mmol/L (8-16) BUN 47 H mg/dL (9-20) Creatinine 4.30 H mg/dL (0.7-1.3) Estim Creat Clear Calc 17 ml/min Estimated GFR 14 L (59 - ) Glucose 120 H mg/dL (65-110) Calcium 9.2 mg/dL (8.4-10.2) Total Bilirubin 0.5 mg/dL (0.2-1.3) AST 29 U/L (17-59) ALT 11 U/L (6-50) Alkaline Phosphatase 77 U/L (38-126) Total Protein 8.0 g/dL (6.3-8.2) Albumin 3.9 g/dL (3.5-5.1) Patient hx anesthesia problems: none Family hx anesthesia problems: none Results Review: All pre-operative results and documents have been reviewed as part of the pre-operative evaluation. [facility] Past Medical History Medical History (Updated 07/18/23 @ 14:31 by Simi Swanson PA-C) Chronic respiratory failure with hypoxia, on home oxygen therapy Congestive heart failure End-stage renal disease on hemodialysis Erythropoietin deficiency anemia Hyperlipidemia Hypertension Hypothyroidism Laryngeal cancer (2016) Status post chemoradiation. Renal osteodystrophy Right-sided heart failure Type 2 diabe
[2023-07-18] MEDS: ceFAZolin 2 GM/D5W 50 ML 2 GM/50 ML BAG IVPB (14:51)
[2023-07-18] MEDS: HEPARIN SODIUM, PORCINE 10,000 UNITS/10 ML VIAL 10000 UNITS IV PUSH (15:38)
[2023-07-18] MEDS: LIDO 1%/EPINEPHRINE 1:100,000 50 ML VIAL 10 ML INFILTRATE (15:41)
[2023-07-18] MEDS: SODIUM CHLORIDE 0.9% IV 500 ML 30 ML IV CONT (15:51)
--- NOTE | 2023-07-18 16:00 | W.PM.PROC2 ---
Procedure Note - Detailed Date of Procedure 07/18/23 Pre-op Diagnosis end-stage renal disease, nonfunctioning left internal jugular tunneled hemodialysis catheter Post-op Diagnosis Same Procedure Performed placement of temporary left femoral vein Trialysis catheter under ultrasound guidance Surgeon Tika Perez MD Anesthesia Local Indications 58-year-old male with multiple medical issues including end-stage renal disease presenting with respiratory failure secondary to missed dialysis. Patient with nonfunctioning left internal jugular tunneled hemodialysis catheter Findings placement of temporary femoral line secondary to poor ventilation with sedation Description of Procedure The patient was taken the operating room and placed in the supine position. Upon induction of anesthesia, it was noted that the patient was not ventilating well. Given these findings, the decision was made to do a temporary line under local. Time-out was then done to verify the patient's identity, as well as the procedure being performed. I began by using ultrasound to identify the left femoral vein. This area was then prepped and draped in the normal sterile fashion. I then localized the area and around this vein. I then used an 18 gauge needle to gain access into the left femoral vein. Guidewire was then passed into the vein without difficulty. I then removed the needle and enlarged the incision around the guidewire. Then serially dilated the vein using the provided dilators. Then placed the Trialysis catheter over the guidewire into the left femoral. Diet prior was then removed. I was able to easily draw and flush from all 3 port sites. Final heparin flush was placed in each line as directed. The catheter was sutured into place and sterile dressing was placed. The patient was alert and awake in the operating room postop. He will be transferred back to the recovery room in critical condition. Implants Left femoral Trialysis catheter Estimated Blood Loss 5 Condition Critical Disposition PACU [facility] Billing Surgery - Charge Forward: Surgery Billing
--- NOTE | 2023-07-18 16:54 | ADMGEN ---
This patient, Bubba Saxena, was admitted to [facility] Surg Room 327-01. Patient/family oriented to hospital policies and general routines including ID bracelet, bed and alarms, visiting hours, pain management, procedures, bathroom and other care routines, personal items, smoking policy, room service/diet, and visiting hours. Information on how to activate the Rapid Response Team has been discussed. Patient/Family are encouraged to report perceived risks to care and to ask questions if they do not understand what they are told or what they should do. patient arrived at 1623, he stated if he cannot have dialysis tonight he will leave A.
[2023-07-18 17:06] LABS: Glucose Point of Care 107 mg/dl (65-105)
--- NOTE | 2023-07-18 22:53 | PC.NURSE ---
Pt came back from dialysis with temporary femoral artery access for dialysis still in place in his left leg. Per pt was not to leave with that access in place, and it was to be pulled before he discharged. Pt was not willing to stay, and wanted to leave AMA after dialysis treatment was completed. Pt is suppose to remain supine for 4 hours after line is pulled, however he was unwilling to do so. The warehouse distribution manager came up to the unit, called physicians and higher level nursing staff, who agreed it needed to still be pulled before discharge. bailer tenders supervisor educated pt again on why he should stay after the line is pulled and the concern for bleeding. bailer tenders supervisor pulled femoral dialysis line and applied pressure x 15 min, while this nurse made sure pt still had a strong pedal pulse and the charge nurse also assisted in holding pressure and managing all needed supplies. Once no signs of bleeding were present, pressure dressing was applied. Pt was informed and educated numerous times on why he should stay and his risk of bleeding. Pt would only agree to stay and lay down 10 min and still wanted to sign out AMA. When I went to get paperwork and returned to pt's room, he was dressed and getting his shoes on to leave. Attempted once more to get pt to say a little longer and let us monitor him for any signs of bleeding from site, without success. Our charge nurse wheeled pt out to is car in a wheelchair, due to bad weather and overall concern for pt.
--- NOTE | 2023-07-18 23:17 | PC.NURSE ---
Pt left AMA at 2240. Pt was educated multiple times on his increased risk of bleeding and possible complications by leaving before being medically discharged. Pt's left femoral dialysis access was removed and his IV was removed prior to leaving.
== END 2023-07-18 22:40 | disposition left against medical advice (07) ==
LOC: ANHED 13:11 → ANH3MEDSUR 13:28
PROVIDERS: Surgery; Admitting Provider Internal Medicine; Emergency Provider Emergency Medicine; Visit Provider Internal Medicine
PROC: (CPT 36908; principal; 2023-07-18 15:00)
DX: T82.49XA Other complication of vascular dialysis catheter, initial encounter (principal); Y83.8 Other surgical procedures as the cause of abnormal reaction of the patient, or of later complication, without mention of misadventure at the time of the procedure; Z93.0 Tracheostomy status; Z93.1 Gastrostomy status; Z79.84 Long term (current) use of oral hypoglycemic drugs; J96.11 Chronic respiratory failure with hypoxia; Z99.81 Dependence on supplemental oxygen; I13.2 Hypertensive heart and chronic kidney disease with heart failure and with stage 5 chronic kidney disease, or end stage renal disease; E11.22 Type 2 diabetes mellitus with diabetic chronic kidney disease; N18.6 End stage renal disease; I50.810 Right heart failure, unspecified; D63.1 Anemia in chronic kidney disease; Z99.2 Dependence on renal dialysis; N25.0 Renal osteodystrophy; E78.5 Hyperlipidemia, unspecified; E03.9 Hypothyroidism, unspecified; Z85.21 Personal history of malignant neoplasm of larynx; Z92.21 Personal history of antineoplastic chemotherapy; Z92.3 Personal history of irradiation; Z87.891 Personal history of nicotine dependence
CPT/HCPCS: 36556; 36415; 71045; 80053; 82948; 85025; 85610; 85730; 96361; 96374; 96375; 99285; A9270; C1752; G0257; G0378; G0379; J0690; J1644; J2250; J2704; J3010; J7030; J7040

== ENCOUNTER 2023-07-24 09:25 | Emergency (ER) | payer OTHER, SELFPAY ==
[2023-07-24 09:37] VITALS: BP 173/115; PULSE 99; RESP 17; TEMP 36.7; O2SAT 97
[2023-07-24 09:44] VITALS: BP 182/101; PULSE 82; RESP 20; TEMP 36.6; O2SAT 97
--- NOTE | 2023-07-24 10:00 | PC.NURSE ---
spoke with Fernanda at [facility] and she reports pt has not had HD since last Friday because cath not working. Had appointment to have cath replace yesterday but facility would not do it because he reports spo2 was low.
[2023-07-24 10:01] VITALS: BP 166/111; PULSE 81; RESP 16; TEMP 36.6; O2SAT 96
--- NOTE | 2023-07-24 10:14 | ED.GENADULT ---
HPI - General Adult General Chief complaint: Unspecified <Harry Coleman PA-C - Last Filed: 07/24/23 18:23> Stated complaint: Port line cath not working <Harry Coleman PA-C - Last Filed: 07/24/23 18:23> Time Seen by Provider: 07/24/23 09:53 <Harry Coleman PA-C - Last Filed: 07/24/23 18:23> Source: patient <Harry Coleman PA-C - Last Filed: 07/24/23 18:23> Mode of arrival: ambulatory <Harry Coleman PA-C - Last Filed: 07/24/23 18:23> Limitations: no limitations <Harry Coleman PA-C - Last Filed: 07/24/23 18:23> History of Present Illness HPI narrative: This is a 58-year-old male with history of laryngeal cancer, T2 dm, CHF, ESRD on dialysis with tracheostomy in place who presents to the ED for central chest temporary catheter not working today at dialysis. He was admitted to this hospital for the same problem last week. Apparently he had a temporary groin catheter placed and was supposed to get his chest catheter replaced as surgery center upon discharge but did not have this done. Also reported that his last dialysis run was 6 days ago. He does Friday dialysis. Patient has no current complaints. No shortness of breath or chest pain. <Harry Coleman PA-C - Last Filed: 07/24/23 18:23> Related Data Home medications: Home Medications Medication Instructions Recorded Confirmed amlodipine 10 mg tablet 10 mg PO DAILY 10/09/20 05/08/23 calcitriol 0.25 mcg capsule 0.25 mcg PO DAILY 10/09/20 05/08/23 carvedilol 12.5 mg tablet 12.5 mg PO Q12H 10/09/20 05/08/23 levothyroxine 112 mcg capsule 112 mcg PO DAILY 10/09/20 05/08/23 losartan 100 mg tablet 100 mg PO DAILY 10/09/20 05/08/23 pioglitazone 30 mg tablet 30 mg PO DAILY 10/09/20 05/08/23 glimepiride 2 mg tablet 2 mg PO DAILY 05/08/23 05/08/23 pravastatin 40 mg tablet 40 mg PO DAILY 05/08/23 05/08/23 <Harry Coleman PA-C - Last Filed: 07/24/23 18:23> Allergies/adverse reactions: Allergies Allergy/AdvReac Type Severity Reaction Status Date / Time No Known Allergies Allergy Unknown Verified 07/18/23 12:03 <Harry Coleman PA-C - Last Filed: 07/24/23 18:23> Review of Systems Review of Systems: All systems as dictated in HPI <Harry Coleman PA-C - Last Filed: 07/24/23 18:23> [facility] Past Medical History Medical History: Medical History Chronic respiratory failure with hypoxia, on home oxygen therapy Congestive heart failure End-stage renal disease on hemodialysis Erythropoietin deficiency anemia Hyperlipidemia Hypertension Hypothyroidism Laryngeal cancer (2016) Status post chemoradiation. Renal osteodystrophy Right-sided heart failure Type 2 diabetes mellitus <Harry Coleman PA-C - Last Filed: 07/24/23 18:23> Surgical History Surgical History: Surgical History Amputation of right great toe History of percutaneous endoscopic gastrostomy History of throat surgery History of tracheostomy <Harry Coleman PA-C - Last Filed: 07/24/23 18:23> Family History Family History: Family History Mother Family history of diabetes mellitus in first degree relative Diabetes mellitus Hypertension Heart disease Cerebrovascular accident Father Alcoholism Sibling Alcoholism Diabetes mellitus Hypertension Heart disease Cerebrovascular accident Other Family history of lung cancer <Harry Coleman PA-C - Last Filed: 07/24/23 18:23> Social History Social History: Social History Social History: Surrogate medical decision maker: Dasha Saxena, spouse. Code status: Full code. Smoking packs per day: 2 Smoking cigarettes per day: 40.0 Years smoked: 35 Smoking pack-years: 70.00 Smoking status: Former smoker Second hand tobacco smo
[2023-07-24 10:15] VITALS: PULSE 80
--- NOTE | 2023-07-24 10:18 | ECG_ITS ---
Measurements Intervals [place] Rate: 79 P: 23 MT: 201 QRS: 82 QRSD: 113 T: 1 QT: 409 QTc: 470 Interpretive Statements SINUS RHYTHM WITH OCCASIONAL SUPRAVENTRICULAR PREMATURE COMPLEXES MODERATE INTRAVENTRICULAR CONDUCTION DELAY [110+ ms QRS DURATION] NONSPECIFIC STTW ABNORMALITY COMPARED TO ECG 05/09/2023 14:15:49 NO SIGNIFICANT CHANGES Electronically Signed On 07-24-2023 13:28:26 REMOTELY OPERATED VEHICLE by Keily Saleh M.D.
[2023-07-24 10:33] VITALS: BP 160/108; PULSE 83; RESP 15; TEMP 36.7
[2023-07-24 11:02] LABS: Basophils Absolute Auto 0.1 K/mm3 (0.0-0.1); Basophils Percent Auto 1.1 % (0.2-1.2); Eosinophils Absolute Auto 0.1 K/mm3 (0-0.3); Eosinophils Percent Auto 2.4 % (0-4.4); Hemoglobin 10.6 g/dL (14.0-18.0); Immature Granulocyte Absolute 0.02 K/mm3 (0.00-0.031); Immature Granulocyte Percent A 0.4 % (0-0.5); Lymphocytes Absolute Auto 0.78 K/mm3 (0.9-3.2); Lymphocytes Percent Auto 14.6 % (18.3-44.2); Mean Corpuscular HGB Conc 29.4 g/dl (32-36); Mean Corpuscular Hemoglobin 28.6 pg (26-34); Mean Corpuscular Volume 97.3 fl (80-100); Mean Platelet Volume 11.2 fl (7.4-10.4); Monocytes Absolute Auto 0.4 K/mm3 (0.1-0.6); Monocytes Percent Auto 7.5 % (2.6-8.5); Neutrophils Absolute Auto 3.9 K/mm3 (1.3-6.7); Platelet Count Result 257 k/mm3 (150-375); Red Cell Distribution Width 17.6 % (11.5-14.5); White Blood Count 5.3 K/mm3 (4.5-10.0)
[2023-07-24 11:15] LABS: Alanine Aminotransferase 6 U/L (6-50); Albumin Level 4.2 g/dL (3.5-5.1); Alkaline Phosphatase 72 U/L (38-126); Anion Gap 16 mmol/L (8-16); Aspartate Amino Transferase 34 U/L (17-59); Bilirubin,Total 0.6 mg/dL (0.2-1.3); Blood Urea Nitrogen 78 mg/dL (9-20); Calcium 9.1 mg/dL (8.4-10.2); Carbon Dioxide 23 mmol/L (22-30); Chloride 99 mmol/L (98-107); Estimated Glomerular Filt Rate 9; Glucose 87 mg/dL (65-110); Potassium 4.6 mmol/L (3.4-5.0); Sodium 138 mmol/L (137-145)
[2023-07-24 11:16] LABS: INR 1.1; Prothrombin Time 14.7 Seconds (11.1-14.7)
[2023-07-24 11:17] LABS: Partial Thromboplastin Time 38.6 SECONDS (22.3-36.8)
[2023-07-24 11:30] LABS: Anisocytosis 1+ (NORMAL); Hypochromasia 1+ (NORMAL); Ovalocytes 1+ (NORMAL); Platelet Estimate Adequate (Adequate); Schistocytes None Seen (NORMAL)
[2023-07-24 11:42] VITALS: BP 169/107; PULSE 82; RESP 18; TEMP 36.8; O2SAT 98
== END 2023-07-24 11:44 | disposition left against medical advice (07) ==
LOC: ANHED 10:20
PROVIDERS: Emergency Provider Physician Assistant
DX: T82.49XA Other complication of vascular dialysis catheter, initial encounter (principal); E11.22 Type 2 diabetes mellitus with diabetic chronic kidney disease; I13.2 Hypertensive heart and chronic kidney disease with heart failure and with stage 5 chronic kidney disease, or end stage renal disease; I50.810 Right heart failure, unspecified; N18.6 End stage renal disease; D63.1 Anemia in chronic kidney disease; N25.0 Renal osteodystrophy; Z99.2 Dependence on renal dialysis; E78.5 Hyperlipidemia, unspecified; E03.9 Hypothyroidism, unspecified; Z93.0 Tracheostomy status; Z89.411 Acquired absence of right great toe; Z85.21 Personal history of malignant neoplasm of larynx; Z87.891 Personal history of nicotine dependence; Z79.84 Long term (current) use of oral hypoglycemic drugs; Y84.1 Kidney dialysis as the cause of abnormal reaction of the patient, or of later complication, without mention of misadventure at the time of the procedure
CPT/HCPCS: 36415; 80053; 85025; 85610; 85730; 86850; 86900; 86901; 93005; 99283

== ENCOUNTER 2024-03-25 13:47 | Emergency (ER) | payer OTHER, SELFPAY ==
--- NOTE | ~2024-03-25 | XR_ITS ---
Exam: Abdomen 2V HISTORY: missing feeding tube COMPARISON: 05/11/2023 TECHNIQUE: Supine images of the abdomen and pelvis. FINDINGS: The distal 5 cm of the patient's gastrostomy tube is located within the pylorus, with gaseous distent ion of the stomach. Extensive fecal stasis. Nonobstructive bowel gas pattern. IMPRESSION: Distal 5 cm of the gastrostomy tube at the level of the pylorus, with gaseous distention of the stoma ch. Reviewed, dictated and finalized at location A. IMPRESSION: Distal 5 cm of the gastrostomy tube at the level of the pylorus, with gaseous d istention of the stomach.
[2024-03-25 13:53] VITALS: BP 176/91; PULSE 81; RESP 16; TEMP 36.4; O2SAT 91
--- NOTE | 2024-03-25 14:14 | ED_ITS ---
HPI - General Adult General Chief complaint: Unspecified Stated complaint: feeding tube broke off into stomach Time Seen by Provider: 03/25/24 14:13 Source: patient Mode of arrival: ambulatory History of Present Illness HPI narrative: 59 years old white male came to the ED complaining that his feeding tube went inside his abdomen. Last use was over 8 months ago. Patient is telling me that his feeding tube been breaking of every now and then and this morning was roughly 2 in outside his abdomen, few hours later the feeding tube this appeared and he believes that the feeding tube went inside his abdomen. He denies any fever, chills, nausea, vomiting or abdominal pain Related Data Home Medications Medication Instructions Recorded Confirmed amlodipine 10 mg tablet 10 mg PO DAILY 10/09/20 05/08/23 calcitriol 0.25 mcg capsule 0.25 mcg PO DAILY 10/09/20 05/08/23 carvedilol 12.5 mg tablet 12.5 mg PO Q12H 10/09/20 05/08/23 levothyroxine 112 mcg capsule 112 mcg PO DAILY 10/09/20 05/08/23 losartan 100 mg tablet 100 mg PO DAILY 10/09/20 05/08/23 pioglitazone 30 mg tablet 30 mg PO DAILY 10/09/20 05/08/23 glimepiride 2 mg tablet 2 mg PO DAILY 05/08/23 05/08/23 pravastatin 40 mg tablet 40 mg PO DAILY 05/08/23 05/08/23 Allergies Allergy/AdvReac Type Severity Reaction Status Date / Time No Known Allergies Allergy Unknown Verified 07/18/23 12:03 Review of Systems Review of Systems: All systems reviewed & are unremarkable except as noted in HPI and below PMFSH Past Medical History Medical History Chronic respiratory failure with hypoxia, on home oxygen therapy Congestive heart failure End-stage renal disease on hemodialysis Erythropoietin deficiency anemia Hyperlipidemia Hypertension Hypothyroidism Laryngeal cancer (2016) Status post chemoradiation. Renal osteodystrophy Right-sided heart failure Type 2 diabetes mellitus Surgical History Surgical History Amputation of right great toe History of percutaneous endoscopic gastrostomy History of throat surgery History of tracheostomy Family History Family History Mother Family history of diabetes mellitus in first degree relative Diabetes mellitus Hypertension Heart disease Cerebrovascular accident Father Alcoholism Sibling Alcoholism Diabetes mellitus Hypertension Heart disease Cerebrovascular accident Other Family history of lung cancer Social History Social History Social History: Surrogate medical decision maker: Dasha Saxena, spouse. Code status: Full code. Smoking packs per day: 2 Smoking cigarettes per day: 40.0 Years smoked: 35 Smoking pack-years: 70.00 Smoking status: Former smoker Second hand tobacco smoke exposure: No Alcohol intake: never Substance use: never Substance use type: does not use Do You Feel Safe in your Home?: Yes Lack of Transportation: No Lack of Food: Never True Current Housing: I Have Housing Concerned About Future Housing: No Difficulty Paying Gas/Electric Bills: No Difficulty Paying for Meds: No Currently Unemployed: No Education: High School Diploma/GED Difficulty w/ Childcare or Family Care: No Additional living arrangements comments: Lives with spouse in [place]. They have 1 child. 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 care concerns: No Exam Narrative: General appearance: Well-developed, well-nourished Skin: Normal color Head: Normocephalic, nontraumatic Eyes: Clear conjunctiva ENT: Oropharynx normal, ears normal, nose normal Neck: Supple, nontender Chest and respiratory: Airway patent, no respiratory distress, no accessory muscle use Heart: Regular rate/rhythm Abdomen: Soft, nontender, no organomegaly, quiet bowel sounds, feeding tube stoma, without anything coming out of it Vascular: Normal peripheral pulses, normal capillary refill. Musculoskeletal: Normal range of motion, nontender back Neurologic: Alert and oriented ?3, RN LABOR AND DELIVERY is normal as tested, no gross motor deficit Course Vital Signs Vital signs: Vital Signs Temperature 36.4 C L 03/25/24 13:53 Pulse Rate 81 03/25/24 13:53 Respiratory Rate 16 03/25/24 13:53 Blood Pressure 176/91 H 03/25/24 13:53 Pulse Oximetry 91 03/25/24 13:53 Oxygen Delivery Room Air 03/25/24 13:53 Temperature 36.4 C L 03/25/24 13:53 Pulse Rate 69 03/25/24 15:52 Respiratory Rate 17 03/25/24 15:52 Blood Pressure 139/62 03/25/24 15:52 Pulse Oximetry 97 03/25/24 15:52 Oxygen Delivery Room Air 03/25/24 13:53 Medical Decision Making MDM Narrative Medical decision making narrative: PATIENT CAME WITH MISSING FEEDING TUBE NOTICED PRIOR TO ARRIVAL VITAL SIGNS SHOWING BLOOD PRESSURE 176/91 PHYSICAL EXAM SHOWING FEEDING TUBE STOMA WITHOUT FEEDING TUBE. KUB SHOWED 5 CM FEEDING TUBE IN THE PYLORUS PATIENT DECLINED TO BE HOSPITALIZED, HE IS TELLING ME THAT HE HAVE SOMETHING IMPORTANT HAVE TO BE DONE BEFORE HOSPITALIZATION, I DID EXPLAIN IN LENGTH THAT THE FEEDING TUBE PROBABLY WILL CAUSE DUODENAL OBSTRUCTION OR SMALL-BOWEL OBSTRUCTION WHICH HIGH LIKELY REQUIRE SURGERY IN THE FUTURE. PATIENT INSIST TO LEAVE AMA. I DECLARE THAT I HAVE PERSONALLY EXPLAINED TO THE PATIENT THE RISKS AND CONSEQUENCES INVOLVED IN LEAVING THIS FACILITY AT THIS TIME. THE BENEFITS OF CONTINUED TREATMENT AND/OR HOSPITALIZATION. AND THE ALTERNATIVES. IF ANY. TO CONTINUED TREATMENT AND/OR HOSPITALIZATION. IF APPLICABLE.I HAVE NOT IDENTIFIED ANY PSYCHOSIS, DRUGS, MENTAL ILLNESS, OR MEDICAL ILLNESS THAT ALTERS DECISION- MAKING CAPACITY (REASONING ABILITIES ). Differential Diagnosis Differential Diagnosis: ABOVE Vital Signs Vital Signs: Vital Signs Temperature 36.4 C L 03/25/24 13:53 Pulse Rate 81 03/25/24 13:53 Respiratory Rate 16 03/25/24 13:53 Blood Pressure 176/91 H 03/25/24 13:53 Pulse Oximetry 91 03/25/24 13:53 Oxygen Delivery Room Air 03/25/24 13:53 Temperature 36.4 C L 03/25/24 13:53 Pulse Rate 69 03/25/24 15:52 Respiratory Rate 17 03/25/24 15:52 Blood Pressure 139/62 03/25/24 15:52 Pulse Oximetry 97 03/25/24 15:52 Oxygen Delivery Room Air 03/25/24 13:53 Imaging Data Radiologist's impression: Impressions Abdomen X-Ray 03/25/24 15:21 IMPRESSION: Distal 5 cm of the gastrostomy tube at the level of the pylorus, with gaseous distention of the stomach. Critical Care Time Critical Care Time Critical Care Time: No Discharge Plan Discharge Clinical Impression: Complication of feeding tube Patient Disposition: Left Against Medical Advice Condition: Guarded Prognosis Prescriptions: No Action levothyroxine 112 mcg capsule 112 mcg PO DAILY calcitriol 0.25 mcg capsule 0.25 mcg PO DAILY pioglitazone 30 mg tablet 30 mg PO DAILY losartan 100 mg tablet 100 mg PO DAILY amlodipine 10 mg tablet 10 mg PO DAILY carvedilol 12.5 mg tablet 12.5 mg PO Q12H Rx Instructions: must administer with a meal/food glimepiride 2 mg tablet 2 mg PO DAILY pravastatin 40 mg tablet 40 mg PO DAILY Follow-up/Referrals: UNKNOWN,DOCTOR [Primary Care Provider] -
[2024-03-25 15:52] VITALS: BP 139/62; PULSE 69; RESP 17; O2SAT 97
== END 2024-03-25 16:00 | disposition left against medical advice (07) ==
PROVIDERS: Emergency Provider Emergency Medicine
DX: K94.29 Other complications of gastrostomy (principal); Z87.891 Personal history of nicotine dependence; I50.9 Heart failure, unspecified; I13.2 Hypertensive heart and chronic kidney disease with heart failure and with stage 5 chronic kidney disease, or end stage renal disease; E11.22 Type 2 diabetes mellitus with diabetic chronic kidney disease; N18.6 End stage renal disease; Z99.2 Dependence on renal dialysis; E03.9 Hypothyroidism, unspecified; Z85.21 Personal history of malignant neoplasm of larynx; J96.11 Chronic respiratory failure with hypoxia; Z99.81 Dependence on supplemental oxygen
CPT/HCPCS: 74018; 99283

== ENCOUNTER 2024-08-05 08:53 | Inpatient (IN) | payer OTHER, SELFPAY ==
[2024-08-05] VITALS (64 sets, daily range): BP systolic 67–129; BP diastolic 48–94; PULSE 50–111; RESP 6–27; TEMP 36.2–36.5; O2SAT 83–100
--- NOTE | ~2024-08-05 | XR_ITS ---
EXAMINATION: XR chest 1V portable DATE: 08/07/2024 08:20 INDICATION: Shortness of breath. TECHNIQUE: A single frontal view of the chest was obtained. COMPARISON: Chest view 08/07/2024, chest CT 08/05/2024 FINDINGS: There are airspace opacities in the mid and lower lung zones with a basilar predominance. T here are small pleural effusions. No pneumothorax. Cardiomegaly is noted. A tracheostomy tube is note d with tip 6 mm above the jia. IMPRESSION: 1. Worsened airspace opacities in the mid and lower lung zones with a basilar predominance, consisten t with atelectasis versus pneumonia. 2. Worsened small pleural effusions. 3. Cardiomegaly. 4. Tracheostomy tube tip 6 mm above jia. Reviewed, dictated and finalized at location A. COVERER IMPRESSION: 1. Worsened airspace opacities in the mid and lower lung zones with a basilar p redominance, consistent with atelectasis versus pneumonia. 2. Worsened small pleural effusions. 3. Cardiomegaly. 4. Tracheostomy tube tip 6 mm above jia.
--- NOTE | ~2024-08-05 | XR_ITS ---
Portable chest x-ray Comparison: 08/09/2024 Clinical History: Respiratory failure Findings: Tracheostomy cannula and NG tube are in place. Moderate left pleural effusion present and small right pleural effusion present. There is mild to moderate pulmonary edema. Cardiomediastinal s ilhouette is stable. Bones and soft tissues are unremarkable. Impression: Moderate left pleural effusion and small right pleural effusion, with mild to moderate pulmonary arnoldo a pattern. Support tubes, as above. Reviewed, dictated and finalized at location M. Impression: Moderate left pleural effusion and small right pleural effusion, with mild to m oderate pulmonary edema pattern. Support tubes, as above.
--- NOTE | ~2024-08-05 | XR_ITS ---
XR chest 1V portable Ordering provider: Kali Garcia MD History: 59 years Male with . Resp Failure . Comparison: August 08, 2024 FINDINGS: MEDIASTINUM: The cardiac silhouette is moderately enlarged. Congestive jessica. Endotracheal tube is see n with the tip above the jia by about 1.1 cm. Retraction is advised. Nasogastric tube is seen extending to the stomach LUNGS: No pneumothorax. Bilateral basal opacification suggestive of pneumonia. Bilateral interstitial changes suggestive of pulmonary edema versus pneumonitis. Minimal right pleural effusion. Highly sug gestive left pleural effusion. OTHER: No free air under the diaphragm. Degenerative changes of the spine. IMPRESSION: Bilateral basal pneumonia. Cardiomegaly with cardiac decompensation and pulmonary edema. Superimposed Pneumonitis is not exclude d. Reviewed, dictated and finalized at location A. IMPRESSION: Bilateral basal pneumonia. Cardiomegaly with cardiac decompensation and pulmonary edema. Superimposed Pneu monitis is not excluded.
--- NOTE | ~2024-08-05 | XR_ITS ---
EXAMINATION: XR abdomen gastric tube insert DATE: 08/09/2024 14:19 INDICATION: Nasogastric tube placement. TECHNIQUE: A supine view of the abdomen was obtained. COMPARISON: CT abdomen and pelvis 08/05/2024 FINDINGS: The lower abdomen is excluded. The nasogastric tube tip is in the stomach. IMPRESSION: 1. Nasogastric tube tip in the stomach. Reviewed, dictated and finalized at location B.
--- NOTE | ~2024-08-05 | CT_ITS ---
EXAMINATION: CTA chest PE abdomen pel DATE: 08/05/2024 14:22 EMR TRAINER INDICATION: Near syncope during dialysis. TECHNIQUE: Computed tomographic angiography (CTA) of the chest was performed, along with multiple con tiguous axial images of the abdomen and pelvis with 100 mL Omnipaque-350 intravenous contrast. The do se-length product was 2514.83 mGy-cm. Maximum intensity projection 3D-reconstructions of the aorta an d other arteries were constructed by the technologist on a separate workstation. FINDINGS/OBSERVATIONS: PULMONARY ARTERIES: No filling defect is identified within the main or proximal pulmonary artery. The main pulmonary artery is enlarged. THORACIC AORTA: No aneurysmal dilatation or dissection is present. The great vessels are intact Tracheostomy tube extending into right mainstem bronchus. LUNGS: Bilateral pleural effusions (right greater than left) with adjacent compressive atelectasis. Consolidation and collapse of the medial margin of left upper lobe. Consolidation within the inferior lateral margin of the left lower lobe with increased attenuation brandt ggesting aspiration. MEDIASTINUM: No morphologically suspicious or pathologically enlarged lymph nodes are identified with in the mediastinum or bilateral axilla. Extensive collateralization from the left upper extremity to the superior vena cava within the medias tinum. BONES OF THE CHEST: Subacute fracture of the right lateral 10th rib. No additional acute or subacute fractures are appreciated. There are bridging endplate osteophytes at multiple levels in the spine, consistent with diffuse idio pathic skeletal hyperostosis (DISH). No lytic or blastic lesions within the visualized thoracic spine or sternum HEART: The heart is markedly enlarged, with a small pericardial effusion. ABDOMEN: Intra-abdominal ascites within the perisplenic and perihepatic positions. The ascites extends along the bilateral paracolic gutters and into the pelvis. Moderate anasarca is noted. LIVER: The liver enhances homogeneously and is enlarged measuring 20 cm in longitudinal dimension GALLBLADDER AND BILIARY SYSTEM: Layering stones within the nondistended gallbladder. PANCREAS: The pancreas enhances homogeneously without ductal dilatation. SPLEEN: The spleen enhances homogeneously and is markedly enlarged measuring 14 cm in longitudinal dimension. KIDNEYS: The bilateral kidneys are atrophic without hydronephrosis or renal calculi. Densely calcified atherosclerotic disease is identified within the abdominal aorta and bilateral rehana l arteries (L>R). ADRENAL GLANDS: Unremarkable. GASTROINTESTINAL TRACT: Retained gastric contents within the distended stomach. The colon is significantly distended with air opacified. Fecal stasis is noted within the nondistended distal sigmoid colon extending to the nondi stended rectum. APPENDIX: The appendix is not visualized. VASCULATURE: Densely calcified atherosclerotic disease with scattered mural thrombus along its course in the abdom en. No discrete aneurysmal dilatation is identified. Incidental notation is made of a persistent left-sided inferior vena cava, a rare congenital abnormal ity. LYMPH NODES: No pathologically enlarged or morphologically suspicious lymph nodes within the retroperitoneum or at the root of the mesentery. PELVIC STRUCTURES: The bladder is compressed. The prostate gland is not enlarged. BODY WALL AND MUSCULOSKELETAL: Moderate anasarca. Degenerative disease within the lower thoracic and lumbosacral spines with osteoph yte formation, disc space narrowing, endplate changes and vacuum phenomena. IMPRESSION: No pulmonary embolus. No aortic dissection. Bilateral pleural effusions (right greater than left) with adjacent compressive atelectasis on the ri ght and adjacent consolidation on the left. Tracheostomy extends into the right mainstem bronchus, for which resizing is suggested. Hepatosplenomegaly. Significant gaseous distention of the colon with retained gastric contents. Air opacification of the colon which is also distended. Intra-abdominal ascites. Congenital persistent left-sided inferior vena cava. Moderate anasarca Cholelithiasis without cholecystitis. Reviewed, dictated and finalized at location A. TRAINER IMPRESSION: No pulmonary embolus. No aortic dissection. Bilateral pleural effusions (right greater than left) with adjacent compressive atelectasis on the right and adjacent consolidation on the left. Tracheostomy extends into the right mainstem bronchus, for which resizing is brandt ggested. Hepatosplenomegaly. Significant gaseous distention of the colon with retained gastric contents. Air opacification of the colon which is also distended. Intra-abdominal ascites. Congenital persistent left-sided inferior vena cava. Moderate anasarca Cholelithiasis without cholecystitis.
--- NOTE | ~2024-08-05 | XR_ITS ---
XR abdomen obstructive series Ordering provider: Nahed Treviño MD History: . Abdominal distension . Comparison: None. FINDINGS: BOWEL: Distended bowel loops in the upper abdomen with gases. Nonobstructive bowel gas pattern. ORGANOMEGALY: None. SIGNIFICANT PATHOLOGIC CALCIFICATIONS: None. OTHER: Cardiomegaly with a right sided basal atelectasis versus pneumonia with pleural effusion. No f ree air is seen under the diaphragm. Degenerative the spine. Right femoral line is noted. IMPRESSION: NO ACUTE ABDOMINAL FINDINGS. Reviewed, dictated and finalized at location A. BLE MANAGER
--- NOTE | ~2024-08-05 | XR_ITS ---
Portable chest x-ray Comparison: 08/07/2024 Clinical History: Pneumonia Findings: Small to moderate bilateral pleural effusions are present with moderate pulmonary edema pa ttern. Cardiomediastinal silhouette is stable. Bones and soft tissues are unremarkable. Impression: Moderate pulmonary edema pattern with small to moderate bilateral pleural effusions. Stable cardiomegaly. Reviewed, dictated and finalized at location . Impression: Moderate pulmonary edema pattern with small to moderate bilateral pleural effus ions. Stable cardiomegaly.
--- NOTE | ~2024-08-05 | CT_ITS ---
EXAMINATION: CT brain wo con DATE: 08/05/2024 14:13 INDICATION: Head injury. Near syncope. TECHNIQUE: Computed tomography (CT) of the head was performed without intravenous contrast. The mA wa s adjusted according to patient size. Iterative reconstruction technique was employed. The dose-lengt h product was 681.00 mGy-cm. COMPARISON: None FINDINGS: There is no intracranial hemorrhage, acute infarction, or abnormal intracranial mass lesion . There are scattered areas of low attenuation in the cerebral white matter, which is within normal l imits for the patient's age. The ventricles are normal in size. The mastoid air cells are normal. The re is mild mucosal thickening in the paranasal sinuses. There are likely changes of ocular lens repla cement surgeries. IMPRESSION: 1. Normal aging brain. Reviewed, dictated and finalized at location A. STEWARD IMPRESSION: 1. Normal aging brain.
--- NOTE | ~2024-08-05 | US_ITS ---
Procedure: Duplex Doppler examination of the bilateral carotids. Indication: Syncope Technique: Real time, color-flow and pulse wave Doppler examination of the bilateral carotids was performed. Findings: Poole scale ultrasonography of the right neck demonstrated no significant plaque.. There was demonstra tion of normal color-flow and Doppler waveforms within the right common, internal and external caroti d arteries. The peak systolic velocities in the right common, internal and external carotid arteries were demonstrated to be 43 cm/sec, 52 cm/sec and 35 cm/sec respectively. The right ICA/CCA ratio was 1.2.The proximal right internal carotid artery demonstrates 0% stenosis relative to the normal distal artery lumen diameter. Poole scale sonography of the left neck demonstrated heterogeneous probable soft plaque within the lef t proximal ICA. There was demonstration of normal color-flow and wave forms within the left common, i nternal and external carotid arteries. The peak systolic velocities in the left common, internal and external carotid arteries were demonstrated to be 74cm/sec, 193 cm/sec and 74 cm/sec respectively. Th e left ICA/CCA ratio was 2.6. The proximal left internal carotid artery demonstrates 0% stenosis rela tive to the normal distal artery lumen diameter. There was antegrade flow demonstrated in the right vertebral artery. Left vertebral artery not visual ized. Impression: Elevated velocity in the left internal carotid artery is compatible with moderate (50-69%) stenosis. Nonvisualization of left vertebral artery. Note: The methodology used is an indirect measurement validated against a direct method (such as the NASCET criteria) that compares diameters at the stenosis to the distal ICA. Reviewed, dictated and finalized at location M. Impression: Elevated velocity in the left internal carotid artery is compatible with modera te (50-69%) stenosis. Nonvisualization of left vertebral artery. Note: The methodology used is an indirect measurement validated against a direct meth od (such as the NASCET criteria) that compares diameters at the stenosis to the distal ICA.
--- NOTE | ~2024-08-05 | XR_ITS ---
Portable chest x-ray Comparison: 08/10/2024 Clinical History: Respiratory failure Findings: Tracheostomy cannula and NG tube are in satisfactory positions. There is moderate pulmonar y edema pattern with small bilateral pleural effusions. Cardiomediastinal silhouette is stable. Bone s and soft tissues are unremarkable. Impression: Moderate pulmonary edema pattern with small bilateral pleural effusions. Support tubes, as above. Reviewed, dictated and finalized at location . Impression: Moderate pulmonary edema pattern with small bilateral pleural effusions. Support tubes, as above.
--- NOTE | ~2024-08-05 | XR_ITS ---
Upright portable view of the abdomen Clinical history: NG tube placement Findings: NG tube in satisfactory position. Bowel gas pattern is nonspecific. No evidence for obstruc tion or free air. No abnormal mass lesion or calcification is seen. Osseous structures are intact. Bi lateral pleural effusions are present. Impression: NG tube in satisfactory position. Bilateral pleural effusions. Reviewed, dictated and finalized at [facility]. Impression: NG tube in satisfactory position. Bilateral pleural effusions.
--- NOTE | ~2024-08-05 | XR_ITS ---
EXAMINATION: XR chest 1V portable DATE: 08/05/2024 10:34 INDICATION: Shortness of breath. TECHNIQUE: A single frontal view of the chest was obtained. COMPARISON: Chest single view 07/18/2023, 05/20/23 FINDINGS: There are airspace and interstitial opacities in right mid and lower lung zones and all lef t lung zones. There are small pleural effusions, left worse than right. No pneumothorax. Cardiomegaly is noted. A tracheostomy tube is noted. There are surgical clips in the neck. IMPRESSION: 1. Diffuse lung disease, stable from 07/18/23, consistent with pulmonary edema versus pneumonia versus chronic lung disease. 2. Small pleural effusions, left worse than right with interval improvement on the left. 3. Cardiomegaly. Reviewed, dictated and finalized at location A. ACUTE CARE NURSE IMPRESSION: 1. Diffuse lung disease, stable from 07/18/23, consistent with pulmonary edema v ersus pneumonia versus chronic lung disease. 2. Small pleural effusions, left worse than right with interval improvement on the left. 3. Cardiomegaly.
--- NOTE | 2024-08-05 09:01 | ECG_ITS ---
Test Date: 2024-08-05 09:22:12 Measurements Intervals [place] Rate: 75 P: 1 TX: 180 QRS: 121 QRSD: 133 T: -69 QT: 400 QTc: 447 Interpretive Statements SINUS RHYTHM INTRAVENTRICULAR CONDUCTION DELAY [130+ ms QRS DURATION] POSSIBLE RIGHT VENTRICULAR HYPERTROPHY [SOME/ALL OF: PROMINENT R IN V1, LATE TRANSITION, RAD, MIROSLAVA, SSS] POSSIBLE ANTERIOR MYOCARDIAL INFARCTION , OF INDETERMINATE AGE [30 ms Q WAVE IN V3/V4, OR R < 0.2 mV IN V4] No previous ECG available for comparison Electronically Signed On 08-05-2024 14:02:53 [employer]UEST EXPERIENCE CAPTAIN by Serafin Fonseca M.D.
--- NOTE | 2024-08-05 09:19 | ED_ITS ---
HPI - General Adult General Chief complaint: Syncope <NORA Velazquez Last Filed: 08/05/24 19:25> Stated complaint: SOB/near syncope <Rohini Rodriguez PA-C - Last Filed: 08/05/24 19:25> Time Seen by Provider: 08/05/24 09:01 <Rohini Rodriguez PA-C - Last Filed: 08/05/24 19:25> Source: patient, EMS and old records reviewed <NORA Velazquez Last Filed: 08/05/24 19:25> Mode of arrival: EMS <NORA Velazquez Last Filed: 08/05/24 19:25> Limitations: no limitations <NORA Velazquez Last Filed: 08/05/24 19:25> History of Present Illness HPI narrative: Patient is a 59 y/o male, with PMH of ESRD, HTN, DM, hypothyroidism, PAD, CHF, tracheostomy r/t laryngeal CA, who presents to the ED via EMS with report of lightheadedness/near syncope. Per EMS report, patient was at [facility] dialysis this morning when he began feeling lightheaded and near syncopal. Began feeling short of breath. His treatment was stopped and he was sent here for further evaluation. He received 2.5 hours of his treatment, reportedly had 1 L of fluid taken off. Patient denies feeling short of breath currently. He denies chest pain. Denies recent fevers or cough. He complains of some diffuse abdominal pain. Patient does still make urine, a couple times per day. Per via phone, patient has had recent feeding tube that is no longer functioning. She also reports that he has had episodes of dizziness recently and fell a few days ago. He did hit his head and was not evaluated for this. < NORA Velazquez Last Filed: 08/05/24 19:25> Related Data Home medications: Home Medications ?Medication ?Instructions ?Recorded ?Confirmed ?Last Taken ?Type amlodipine 10 mg tablet 10 mg PO DAILY 10/09/20 08/07/24 05/10/22 09:00 History calcitriol 0.25 mcg capsule 0.25 mcg PO DAILY 10/09/20 08/07/24 05/10/22 09:00 History carvedilol 12.5 mg tablet 12.5 mg PO Q12H 10/09/20 08/07/24 05/10/22 09:00 History levothyroxine 112 mcg capsule 175 mcg PO QAM 10/09/20 08/07/24 05/10/22 09:00 History losartan 100 mg tablet 100 mg PO DAILY 10/09/20 08/07/24 05/10/22 09:00 History pioglitazone 30 mg tablet 30 mg PO DAILY 10/09/20 08/07/24 05/10/22 09:00 History glimepiride 2 mg tablet 2 mg PO DAILY 05/08/23 08/07/24 Unknown History pravastatin 40 mg tablet 40 mg PO DAILY 05/08/23 08/07/24 Unknown History sevelamer carbonate 800 mg tablet 1,600 mg PO TIDWMEAL 08/07/24 08/07/24 Unknown History <Rohini Rodriguez PA-C - Last Filed: 08/05/24 19:25> Allergies/adverse reactions: Allergies Allergy/AdvReac Type Severity Reaction Status Date / Time No Known Allergies Allergy Unknown Verified 08/05/24 10:41 <Rohini Rodriguez PA-C - Last Filed: 08/05/24 19:25> Review of Systems 2 Review of Systems: All systems reviewed & are unremarkable except as noted in HPI. <Rohini Rodriguez PA-C - Last Filed: 08/05/24 19:25> All systems reviewed & are unremarkable except as noted in HPI and below < Rohini Rodriguez PA-C - Last Filed: 08/05/24 19:25> [facility] Past Medical History Medical History: Medical History Laryngeal cancer (2015) Status post chemoradiation. Right-sided heart failure Chronic respiratory failure with hypoxia, on home oxygen therapy Type 2 diabetes mellitus End-stage renal disease on hemodialysis Hyperlipidemia Congestive heart failure Renal osteodystrophy Erythropoietin deficiency anemia Hypothyroidism Hypertension <Rohini Rodriguez PA-C - Last Filed: 08/05/24 19:25> Surgical History Surgical History: Surgical History History of percutaneous endoscopic gastrostomy History of tracheostomy Amputation of right great toe History of throat surgery <Rohini Rodriugez PA-C - Last Filed: 08/05/24 19:25> Family History Family History: Family History Mother Family history of diabetes mellitus in first degree relative Diabetes mellitus Hypertension Heart disease Cerebrovascular accident Father Alcoholism Sibling Alcoholism Diabetes mellitus Hypertension Heart disease Cerebrovascular accident Other Family history of lung cancer <Rohini Rodriguez PA-C - Last Filed: 08/05/24 19:25> Social History Social History: Social History Social History: Surrogate medical decision maker: Dasha Saxena, spouse. Code status: Full code. Smoking packs per day: 2 Smoking cigarettes per day: 40.0 Years smoked: 35 Smoking pack-years: 70.00 Smoking status: Former smoker Tobacco type: cigarettes Second hand tobacco smoke exposure: No Alcohol intake: never Substance use: never Substance use type: does not use Do You Feel Safe in your Home?: Yes Lack of Transportation: No Lack of Food: Never True Current Housing: I Have Housing Concerned About Future Housing: No Difficulty Paying Gas/Electric Bills: No Difficulty Paying for Meds: No Currently Unemployed: No Education: Decline to Answer Difficulty w/ Childcare or Family Care: No Additional living arrangements comments: Lives with spouse in [place]. They have 1 child. 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 care concerns: No <Rohini Rodriguez PA-C - Last Filed: 08/05/24 19:25> Exam 2 Narrative: GENERAL: Chronically ill-appearing, obese with BMI of 34.1, non-toxic, in no acute distress. HEAD: Normocephalic, atraumatic. ENT: Tracheostomy site clean and intact RESPIRATORY: Airway patent, respirations mildly tachypneic but nonlabored. Coarse lung sounds throughout, decreased lung sounds in bases bilaterally CARDIOVASCULAR: Regular rate and rhythm without murmurs, rubs, or gallops. ABDOMINAL: Abdomen is somewhat distended, minimally diffusely tender. Normoactive BS. MUSCULOSKELETAL: Moves all extremities. No gross deformities. Venous stasis changes BLE with violaceous discoloration of legs and toes. SKIN: Warm, dry, normal color. NEURO: A&O X3. Speech clear. No ataxic movements. PSYCHIATRIC: Appropriate mood and affect. Normal interaction. <Rohini Rodriguez PA-C - Last Filed: 08/05/24 19:25> Course AIR PUMPER/PA Physician Supervision For this patient encounter, I reviewed the AIR PUMPER or PA documentation, treatment plan, and medical decision making; and I had [id number] time with this patient. <Gaudencio Arroyo MD - Last Filed: 08/07/24 18:41> Reevaluation(s) Reevaluation #1: 08/06 patient is resting comfortably at this time. Patient denies any chest pain or shortness of breath. Patient's vital signs are stable. Labs are being repeated. Bed is still pending at [facility] ICU. Still no ENT coverage at our facility. 08/07 patient's CMP this morning showed no critical electrolyte abnormalities. On re-evaluation patient is resting comfortably and in no distress. Patient denies any complaints at this time. Patient is alert and appropriate. I discussed the case with Nephrology and they are unable to do dialysis while the patient is in the emergency department. The would be really do dialysis at the patient was admitted. [facility] ICU bed is still pending. Case was discussed with the icer machine and patient was accepted to the ICU pending placement. Case was discussed with hospitalist patient was accepted. <Gaudencio Arroyo MD - Last Filed: 08/07/24 18:41> Vital Signs Vital signs: Vital Signs Temperature 97.1 F L 08/05/24 08:57 Pulse Rate 78 08/05/24 08:57 Respiratory Rate 21 H 08/05/24 08:57 Blood Pressure 98/74 L 08/05/24 08:57 Pulse Oximetry 83 L 08/05/24 08:57 Oxygen Delivery Room Air 08/05/24 08:57 Temperature 97.7 F 08/07/24 16:15 Pulse Rate 57 L 08/07/24 18:30 Respiratory Rate 14 08/07/24 16:15 Blood Pressure 138/86 08/07/24 18:30 Pulse Oximetry 100 08/07/24 16:20 Oxygen Delivery Mechanical Ventilation 08/07/24 16:20 Oxygen Flow Rate 40 08/05/24 10:42 Fraction of Inspired Oxygen 60 08/07/24 16:20 <Rohini Rodriguez PA-C - Last Filed: 08/05/24 19:25> Vital Signs Temperature 97.1 F L 08/05/24 08:57 Pulse Rate 78 08/05/24 08:57 Respiratory Rate 21 H 08/05/24 08:57 Blood Pressure 98/74 L 08/05/24 08:57 Pulse Oximetry 83 L 08/05/24 08:57 Oxygen Delivery Room Air 08/05/24 08:57 Temperature 97.7 F 08/07/24 16:15 Pulse Rate 57 L 08/07/24 18:30 Respiratory Rate 14 08/07/24 16:15 Blood Pressure 138/86 08/07/24 18:30 Pulse Oximetry 100 08/07/24 16:20 Oxygen Delivery Mechanical Ventilation 08/07/24 16:20 Oxygen Flow Rate 40 08/05/24 10:42 Fraction of Inspired Oxygen 60 08/07/24 16:20 <Gaudencio Arroyo MD - Last Filed: 08/07/24 18:41> Vital Signs Temperature 97.1 F L 08/05/24 08:57 Pulse Rate 78 08/05/24 08:57 Respiratory Rate 21 H 08/05/24 08:57 Blood Pressure 98/74 L 08/05/24 08:57 Pulse Oximetry 83 L 08/05/24 08:57 Oxygen Delivery Room Air 08/05/24 08:57 Temperature 97.7 F 08/07/24 16:15 Pulse Rate 57 L 08/07/24 18:30 Respiratory Rate 14 08/07/24 16:15 Blood Pressure 138/86 08/07/24 18:30 Pulse Oximetry 100 08/07/24 16:20 Oxygen Delivery Mechanical Ventilation 08/07/24 16:20 Oxygen Flow Rate 40 08/05/24 10:42 Fraction of Inspired Oxygen 60 08/07/24 16:20 <Aidan Castro MD - Last Filed: 08/06/24 02:26> Procedures Central Line Placement Right Femoral: Central Line Date: 08/06/24 <Aidan Castro MD - Last Filed: 08/06/24 02:26> Central Line Time: 02: <Aidan Castro MD - Last Filed: 08/06/24 02:26> Discussed w/ the patient/family/POA,the placement of a central venous catheter, including its clinical necessity/indication & associated potential risks, benifits and alternatives.: Yes <Aidan Castro MD - Last Filed: 08/06/24 02:26> The patient/family/POA understand(s) and acknowledge(s) the need to proceed with central venous catheter insertion as an important element of the patient's clinical management.: Yes <Aidan Castro MD - Last Filed: 08/06/24 02:26> Time Out Performed: Yes <Aidan Castro MD - Last Filed: 08/06/24 02:26> Patient Placed on Monitor/Pulse Ox: Yes <Aidan Castro MD - Last Filed: 08/06/24 02:26> Max. Sterile Barrier Technique: Caps, large sterile sheet and hand hygiene <Aidan Castro MD - Last Filed: 08/06/24 02:26> Central Line Prep: 2% chlorhexidine scrub and sterile drapes applied <Aidan Castro MD - Last Filed: 08/06/24 02:26> Technique: sterile prep/drape <Aidan Castro MD - Last Filed: 08/06/24 02:26> Local Anesthetic: lidocaine 1% <Aidan Castro MD - Last Filed: 08/06/24 02:26> Amount of anesthesia used (mL): 5 <Aidan Castro MD - Last Filed: 08/06/24 02:26> Ultrasound Used for Placement: Yes <Aidan Castro MD - Last Filed: 08/06/24 02:26> Central Line Lumen Inserted: triple <Aidan Castro MD - Last Filed: 08/06/24 02:26> Post Procedure: sutured in place, good blood return, all ports aspirated, flushed, capped and sterile dressing applied <Aidan Castro MD - Last Filed: 08/06/24 02:26> Patient Tolerated Procedure: well <Aidan Castro MD - Last Filed: 08/06/24 02:26> Complications: none <Aidan Castro MD - Last Filed: 08/06/24 02:26> Intubation Intubation #1: sedative: none <Gaudencio Arroyo MD - Last Filed: 08/07/24 18:41> Laryngoscope: other <Gaudencio Arroyo MD - Last Filed: 08/07/24 18:41> Assist Device Used: other (ET tube passed through the Danish tube) <Gaudencio Arroyo MD - Last Filed: 08/07/24 18:41> Tube Size (cm): 6.5 <Gaudencio Arroyo MD - Last Filed: 08/07/24 18:41> Method of Intubation: orotracheal (Through his tracheostomy stoma) <Gaudencio Arroyo MD - Last Filed: 08/07/24 18:41> Number of Attempts: 1 <Gaudencio Arroyo MD - Last Filed: 08/07/24 18:41> Tube Secured Depth (cm): 13 <Gaudencio Arroyo MD - Last Filed: 08/07/24 18:41> Tube Secured Location: other (Outer edge of Danish tube) <Gaudencio Arroyo MD - Last Filed: 08/07/24 18:41> Tube Placement Confirmation: equal breath sounds bilaterally <Gaudencio Arroyo MD - Last Filed: 08/07/24 18:41> Patient Tolerated Procedure: well and no complications <Gaudencio Arroyo MD - Last Filed: 08/07/24 18:41> Intubation Complications: none <Gaudencio Arroyo MD - Last Filed: 08/07/24 18:41> Medical Decision Making MDM Narrative Medical decision making narrative: Patient presented to ED from dialysis with report of near syncopal episode. Initially was borderline hypotensive, tachypneic, hypoxic on room air down to 83%. Non-rebreather mask was placed on tracheostomy with improvement of oxygen saturations into the mid to upper 90s. Respiratory therapy was contacted. Initial ABG with pH of 7.199. PCO2 elevated to 86. Discussed with respiratory therapy. Patient has a aries tube versus a normal tracheostomy. Unable to perform BiPAP through this. Would need cuffed trach tube vs ET tube through the tracheostomy to receive ventilation. NRB decreasing patient's resp drive, becoming slightly sleepy, intial ABG po2 168. Will decrease oxygen supplementation at this time and repeat ABG in 45 minutes. CBC with out leukocytosis. H&H is stable. Platelets are stable. CMP with stable electrolytes. Normal potassium. Creatinine today 3.97. Consistent with previous records. Liver enzymes are slightly elevated today. Normal bili. Viral swabs are negative. EKG with sinus rhythm, nonspecific ST changes, some T-wave inversions in inferior leads. Baseline troponin did result elevated at 0.138. Potentially related to end-stage renal disease vs demand. This does appear consistent with previous troponin elevations in records. Patient is denying chest pain at this time. Will discuss with Nephrology. Discussed with Dr. Galaviz, nephrology, will consult to arrange for patient's dialysis, OK with patient receiving IV contrast for imaging. Attempted to obtain CTA chest with abd/pelvis, however, patient reportedly unable to lay flat whatsoever for imaging. Repeat ABG from initial with some improvement but still acidotic, hypercapnic. Discussed case with Dr. Garcia, icer machine, advised patient really needs positive pressure airway support, change to cuffed trach tube and put on vent. Then obtain scans. Discussed with RT, unable to place cuffed trach tube due to patient's anatomy, laryngectomy -advised we do not have any cuffed trach tubes long enough to replace aries tube. Discussed with Dr. Mix, anesthesiology, recommended ET tube down stoma and inflate past aries tube. Start with 6.5in tube and go down in size if needed until able to pass. Otherwise will need ENT to place cuffed trach tube. Able to place 6.5in tube down aries tube. Performed by Dr. Arroyo. RT at bedside. Taped at trach stoma. Placed on BiPAP. Patient tolerating well. Able to obtain imaging, CT brain negative. CTA chest w/o PE, dissection. Showing bilateral pleural effusions, right greater than left. Tracheostomy needs pulled back about 2 cm per radiologist's. Imaging does also show gaseous distention of colon and stomach. Also showing ascites, anasarca. Patient was given dose of IV lasix. Rediscussed case with Dr. Garcia, icer machine, recommended transfer to tertiary care for more permanent trach management as we unfortunately do not have ENT available to us here. Discussed with [facility], advised they are unable to accept transfer or place patient on waitlist at this time. [facility] recommended patient return to patient's previous surgeon. Discussed with U, Dr. Hdz, ENT, accepted patient for consult. Admit under medicine service. Discussed case with Dr. Peterson, ICU @ [facility], accepted under Dr. Guzman. Awaiting bed placement. Care signed out to Dr. Castro at shift change pending ICU bed placement at [facility]. <NORA Velazquez Last Filed: 08/05/24 19:25> Medical Records Medical records reviewed: Yes I reviewed the external patient's medical records. <NORA Velazquez Last Filed: 08/05/24 19:25> Vital Signs Vital Signs: Vital Signs Temperature 97.1 F L 08/05/24 08:57 Pulse Rate 78 08/05/24 08:57 Respiratory Rate 21 H 08/05/24 08:57 Blood Pressure 98/74 L 08/05/24 08:57 Pulse Oximetry 83 L 08/05/24 08:57 Oxygen Delivery Room Air 08/05/24 08:57 Temperature 97.7 F 08/07/24 16:15 Pulse Rate 57 L 08/07/24 18:30 Respiratory Rate 14 08/07/24 16:15 Blood Pressure 138/86 08/07/24 18:30 Pulse Oximetry 100 08/07/24 16:20 Oxygen Delivery Mechanical Ventilation 08/07/24 16:20 Oxygen Flow Rate 40 08/05/24 10:42 Fraction of Inspired Oxygen 60 08/07/24 16:20 <NORA Velazquez Last Filed: 08/05/24 19:25> Vital Signs Temperature 97.1 F L 08/05/24 08:57 Pulse Rate 78 08/05/24 08:57 Respiratory Rate 21 H 08/05/24 08:57 Blood Pressure 98/74 L 08/05/24 08:57 Pulse Oximetry 83 L 08/05/24 08:57 Oxygen Delivery Room Air 08/05/24 08:57 Temperature 97.7 F 08/07/24 16:15 Pulse Rate 57 L 08/07/24 18:30 Respiratory Rate 14 08/07/24 16:15 Blood Pressure 138/86 08/07/24 18:30 Pulse Oximetry 100 08/07/24 16:20 Oxygen Delivery Mechanical Ventilation 08/07/24 16:20 Oxygen Flow Rate 40 08/05/24 10:42 Fraction of Inspired Oxygen 60 08/07/24 16:20 <Gaudencio Arroyo MD - Last Filed: 08/07/24 18:41> Vital Signs Temperature 97.1 F L 08/05/24 08:57 Pulse Rate 78 08/05/24 08:57 Respiratory Rate 21 H 08/05/24 08:57 Blood Pressure 98/74 L 08/05/24 08:57 Pulse Oximetry 83 L 08/05/24 08:57 Oxygen Delivery Room Air 08/05/24 08:57 Temperature 97.7 F 08/07/24 16:15 Pulse Rate 57 L 08/07/24 18:30 Respiratory Rate 14 08/07/24 16:15 Blood Pressure 138/86 08/07/24 18:30 Pulse Oximetry 100 08/07/24 16:20 Oxygen Delivery Mechanical Ventilation 08/07/24 16:20 Oxygen Flow Rate 40 08/05/24 10:42 Fraction of Inspired Oxygen 60 08/07/24 16:20 <Aidan Castro MD - Last Filed: 08/06/24 02:26> Lab Data Lab results reviewed: Yes I reviewed the patient's lab results. <Rohini Rodriguez PA-C - Last Filed: 08/05/24 19:25> Result diagrams: 08/07/24 07:23 08/07/24 07:23 <Rohini Rodriguez PA-C - Last Filed: 08/05/24 19:25> Labs: Lab Results 08/05/24 08/05/24 08/05/24 Range/Units 09:14 09:14 09:14 WBC 5.5 (4.5-10.0) K/mm3 RBC 3.85 L (4.6-6.20) M/mm3 Hgb 13.8 L D (14.0-18.0) g/dL Hct 45.0 (42.0-52.0) % MCV 116.9 H (80-100) fl MCH 35.8 H (26-34) pg MCHC 30.7 L (32-36) g/dl RDW 17.6 H (11.5-14.5) % Plt Count 149 L (150-375) k/mm3 MPV 11.3 H (7.4-10.4) fl Immature Gran % (Auto) 1.1 H (0-0.5) % Neut % (Auto) 70.9 (45.5-73.1) % Lymph % (Auto) 11.4 L (18.3-44.2) % Woodruff % (Auto) 13.9 H (2.6-8.5) % Eos % (Auto) 1.8 (0-4.4) % Baso % (Auto) 0.9 (0.2-1.2) % Lymph # (Auto) 0.63 L (0.9-3.2) K/mm3 Woodruff # (Auto) 0.8 H (0.1-0.6) K/mm3 Eos # (Auto) 0.1 (0-0.3) K/mm3 Baso # (Auto) 0.1 (0.0-0.1) K/mm3 Abs Immat Gran (auto) 0.06 H (0.00-0.031) K/mm3 Absolute Neuts (auto) 3.9 (1.3-6.7) K/mm3 Absolute Nucleated RBC 0.050 H (0.0-0.012) K/mm3 Band Neutrophils % Not Reportable Nucleated RBC % 0.9 H (0.0-0.2) % Platelet Estimate Slightly decreased (Adequate) Hypochromasia 1+ Anisocytosis Macrocytosis 1+ (NORMAL) Stomatocytes 1+ Schistocytes None seen PT 15.4 H (11.1-14.7) Seconds INR 1.2 APTT 34.4 (22.3-36.8) Seconds Methemoglobin (0-1.5) %THb Minute Volume Vent Mode Tidal Volume PEEP cmH2O Peak Inspir Pressure cmH2O Pressure Support Sodium Cancelled 140 Potassium Cancelled 4.2 Chloride Cancelled Carbon Dioxide Anion Gap BUN Creatinine Estim Creat Clear Calc Estimated GFR Glucose POC Capillary Glucose (65-105) mg/dl Calcium Magnesium (1.6-2.3) mg/dL Total Bilirubin AST ALT Alkaline Phosphatase Troponin I (0.000-0.034) ng/mL NT-Pro-B Natriuret Pep (19.9-100) pg/mL Total Protein Albumin Urine Color (Yellow) Urine Appearance (Clear) Urine pH (5.0-9.0) Ur Specific [place] (1.001-1.035) Urine Protein (Negative) mg/dL Urine Glucose (UA) (Negative) mg/dL Urine Ketones (Negative) mg/dL Ur Blood (Man) (Negative) Urine Nitrate (Negative) Urine Bilirubin (Negative) Urine Urobilinogen (<2.0) mg/dL Add Ur Microanalysis Leukocyte Esterase Rfl (Negative) ANGIE/UL Urine RBC (0-2) /hpf Urine WBC (0-3) /hpf Ur Squamous Epith Cells (Few) /hpf Urine Bacteria /hpf Urine Casts Nasal MRSA (PCR) (NOT DETECTE) Hep Bs Antigen (Negative) Hep Bs Antibody Influenza A (RT-PCR) (Negative) Influenza B (RT-PCR) (Negative) RSV (RT-PCR) (Negative) SARS-CoV-2 RNA (RT-PCR) (Negative) 08/05/24 08/05/24 08/05/24 Range/Units 09:14 09:14 09:14 WBC (4.5-10.0) K/mm3 RBC (4.6-6.20) M/mm3 Hgb (14.0-18.0) g/dL Hct (42.0-52.0) % MCV (80-100) fl MCH (26-34) pg MCHC (32-36) g/dl RDW (11.5-14.5) % Plt Count (150-375) k/mm3 MPV (7.4-10.4) fl Immature Gran % (Auto) (0-0.5) % Neut % (Auto) (45.5-73.1) % Lymph % (Auto) (18.3-44.2) % Woodruff % (Auto) (2.6-8.5) % Eos % (Auto) (0-4.4) % Baso % (Auto) (0.2-1.2) % Lymph # (Auto) (0.9-3.2) K/mm3 Woodruff # (Auto) (0.1-0.6) K/mm3 Eos # (Auto) (0-0.3) K/mm3 Baso # (Auto) (0.0-0.1) K/mm3 Abs Immat Gran (auto) (0.00-0.031) K/mm3 Absolute Neuts (auto) (1.3-6.7) K/mm3 Absolute Nucleated RBC (0.0-0.012) K/mm3 Band Neutrophils % Nucleated RBC % (0.0-0.2) % Platelet Estimate (Adequate) Hypochromasia Anisocytosis Macrocytosis (NORMAL) Stomatocytes Schistocytes PT (11.1-14.7) Seconds INR APTT (22.3-36.8) Seconds Methemoglobin (0-1.5) %THb Minute Volume Vent Mode Tidal Volume PEEP cmH2O Peak Inspir Pressure cmH2O Pressure Support Sodium Potassium Chloride 91 L Carbon Dioxide Cancelled 34 H Anion Gap Cancelled 15 H BUN Cancelled Creatinine Estim Creat Clear Calc Estimated GFR Glucose POC Capillary Glucose (65-105) mg/dl Calcium Magnesium (1.6-2.3) mg/dL Total Bilirubin AST ALT Alkaline Phosphatase Troponin I (0.000-0.034) ng/mL NT-Pro-B Natriuret Pep (19.9-100) pg/mL Total Protein Albumin Urine Color (Yellow) Urine Appearance (Clear) Urine pH (5.0-9.0) Ur Specific [place] (1.001-1.035) Urine Protein (Negative) mg/dL Urine Glucose (UA) (Negative) mg/dL Urine Ketones (Negative) mg/dL Ur Blood (Man) (Negative) Urine Nitrate (Negative) Urine Bilirubin (Negative) Urine Urobilinogen (<2.0) mg/dL Add Ur Microanalysis Leukocyte Esterase Rfl (Negative) ANGIE/UL Urine RBC (0-2) /hpf Urine WBC (0-3) /hpf Ur Squamous Epith Cells (Few) /hpf Urine Bacteria /hpf Urine Casts Nasal MRSA (PCR) (NOT DETECTE) Hep Bs Antigen (Negative) Hep Bs Antibody Influenza A (RT-PCR) (Negative) Influenza B (RT-PCR) (Negative) RSV (RT-PCR) (Negative) SARS-CoV-2 RNA (RT-PCR) (Negative) 08/05/24 08/05/24 08/05/24 Range/Units 09:14 09:14 09:14 WBC (4.5-10.0) K/mm3 RBC (4.6-6.20) M/mm3 Hgb (14.0-18.0) g/dL Hct (42.0-52.0) % MCV (80-100) fl MCH (26-34) pg MCHC (32-36) g/dl RDW (11.5-14.5) % Plt Count (150-375) k/mm3 MPV (7.4-10.4) fl Immature Gran % (Auto) (0-0.5) % Neut % (Auto) (45.5-73.1) % Lymph % (Auto) (18.3-44.2) % Woodruff % (Auto) (2.6-8.5) % Eos % (Auto) (0-4.4) % Baso % (Auto) (0.2-1.2) % Lymph # (Auto) (0.9-3.2) K/mm3 Woodruff # (Auto) (0.1-0.6) K/mm3 Eos # (Auto) (0-0.3) K/mm3 Baso # (Auto) (0.0-0.1) K/mm3 Abs Immat Gran (auto) (0.00-0.031) K/mm3 Absolute Neuts (auto) (1.3-6.7) K/mm3 Absolute Nucleated RBC (0.0-0.012) K/mm3 Band Neutrophils % Nucleated RBC % (0.0-0.2) % Platelet Estimate (Adequate) Hypochromasia Anisocytosis Macrocytosis (NORMAL) Stomatocytes Schistocytes PT (11.1-14.7) Seconds INR APTT (22.3-36.8) Seconds Methemoglobin (0-1.5) %THb Minute Volume Vent Mode Tidal Volume PEEP cmH2O Peak Inspir Pressure cmH2O Pressure Support Sodium Potassium Chloride Carbon Dioxide Anion Gap BUN 34 H D Creatinine Cancelled 3.97 H Estim Creat Clear Calc Cancelled 22 Estimated GFR Cancelled Glucose POC Capillary Glucose (65-105) mg/dl Calcium Magnesium (1.6-2.3) mg/dL Total Bilirubin AST ALT Alkaline Phosphatase Troponin I (0.000-0.034) ng/mL NT-Pro-B Natriuret Pep (19.9-100) pg/mL Total Protein Albumin Urine Color (Yellow) Urine Appearance (Clear) Urine pH (5.0-9.0) Ur Specific [place] (1.001-1.035) Urine Protein (Negative) mg/dL Urine Glucose (UA) (Negative) mg/dL Urine Ketones (Negative) mg/dL Ur Blood (Man) (Negative) Urine Nitrate (Negative) Urine Bilirubin (Negative) Urine Urobilinogen (<2.0) mg/dL Add Ur Microanalysis Leukocyte Esterase Rfl (Negative) ANGIE/UL Urine RBC (0-2) /hpf Urine WBC (0-3) /hpf Ur Squamous Epith Cells (Few) /hpf Urine Bacteria /hpf Urine Casts Nasal MRSA (PCR) (NOT DETECTE) Hep Bs Antigen (Negative) Hep Bs Antibody Influenza A (RT-PCR) (Negative) Influenza B (RT-PCR) (Negative) RSV (RT-PCR) (Negative) SARS-CoV-2 RNA (RT-PCR) (Negative) 08/05/24 08/05/24 08/05/24 Range/Units 09:14 09:14 09:14 WBC (4.5-10.0) K/mm3 RBC (4.6-6.20) M/mm3 Hgb (14.0-18.0) g/dL Hct (42.0-52.0) % MCV (80-100) fl MCH (26-34) pg MCHC (32-36) g/dl RDW (11.5-14.5) % Plt Count (150-375) k/mm3 MPV (7.4-10.4) fl Immature Gran % (Auto) (0-0.5) % Neut % (Auto) (45.5-73.1) % Lymph % (Auto) (18.3-44.2) % Woodruff % (Auto) (2.6-8.5) % Eos % (Auto) (0-4.4) % Baso % (Auto) (0.2-1.2) % Lymph # (Auto) (0.9-3.2) K/mm3 [place] # (Auto) (0.1-0.6) K/mm3 Eos # (Auto) (0-0.3) K/mm3 Baso # (Auto) (0.0-0.1) K/mm3 Abs Immat Gran (auto) (0.00-0.031) K/mm3 Absolute Neuts (auto) (1.3-6.7) K/mm3 Absolute Nucleated RBC (0.0-0.012) K/mm3 Band Neutrophils % Nucleated RBC % (0.0-0.2) % Platelet Estimate (Adequate) Hypochromasia Anisocytosis Macrocytosis (NORMAL) Stomatocytes Schistocytes PT (11.1-14.7) Seconds INR APTT (22.3-36.8) Seconds Methemoglobin (0-1.5) %THb Minute Volume Vent Mode Tidal Volume PEEP cmH2O Peak Inspir Pressure cmH2O Pressure Support Sodium Potassium Chloride Carbon Dioxide Anion Gap BUN Creatinine Estim Creat Clear Calc Estimated GFR 16 L Glucose Cancelled 122 H POC Capillary Glucose (65-105) mg/dl Calcium Cancelled 8.6 Magnesium 2.3 (1.6-2.3) mg/dL Total Bilirubin Cancelled AST ALT Alkaline Phosphatase Troponin I (0.000-0.034) ng/mL NT-Pro-B Natriuret Pep (19.9-100) pg/mL Total Protein Albumin Urine Color (Yellow) Urine Appearance (Clear) Urine pH (5.0-9.0) Ur Specific [place] (1.001-1.035) Urine Protein (Negative) mg/dL Urine Glucose (UA) (Negative) mg/dL Urine Ketones (Negative) mg/dL Ur Blood (Man) (Negative) Urine Nitrate (Negative) Urine Bilirubin (Negative) Urine Urobilinogen (<2.0) mg/dL Add Ur Microanalysis Leukocyte Esterase Rfl (Negative) ANGIE/UL Urine RBC (0-2) /hpf Urine WBC (0-3) /hpf Ur Squamous Epith Cells (Few) /hpf Urine Bacteria /hpf Urine Casts Nasal MRSA (PCR) (NOT DETECTE) Hep Bs Antigen (Negative) Hep Bs Antibody Influenza A (RT-PCR) (Negative) Influenza B (RT-PCR) (Negative) RSV (RT-PCR) (Negative) SARS-CoV-2 RNA (RT-PCR) (Negative) 03/11/2408/05/24 08/05/24 Range/Units 09:14 09:14 09:14 WBC (4.5-10.0) K/mm3 RBC (4.6-6.20) M/mm3 Hgb (14.0-18.0) g/dL Hct (42.0-52.0) % MCV (80-100) fl MCH (26-34) pg MCHC (32-36) g/dl RDW (11.5-14.5) % Plt Count (150-375) k/mm3 MPV (7.4-10.4) fl Immature Gran % (Auto) (0-0.5) % Neut % (Auto) (45.5-73.1) % Lymph % (Auto) (18.3-44.2) % [place] % (Auto) (2.6-8.5) % Eos % (Auto) (0-4.4) % Baso % (Auto) (0.2-1.2) % Lymph # (Auto) (0.9-3.2) K/mm3 [place] # (Auto) (0.1-0.6) K/mm3 Eos # (Auto) (0-0.3) K/mm3 Baso # (Auto) (0.0-0.1) K/mm3 Abs Immat Gran (auto) (0.00-0.031) K/mm3 Absolute Neuts (auto) (1.3-6.7) K/mm3 Absolute Nucleated RBC (0.0-0.012) K/mm3 Band Neutrophils % Nucleated RBC % (0.0-0.2) % Platelet Estimate (Adequate) Hypochromasia Anisocytosis Macrocytosis (NORMAL) Stomatocytes Schistocytes PT (11.1-14.7) Seconds INR APTT (22.3-36.8) Seconds Methemoglobin (0-1.5) %THb Minute Volume Vent Mode Tidal Volume PEEP cmH2O Peak Inspir Pressure cmH2O Pressure Support Sodium Potassium Chloride Carbon Dioxide Anion Gap BUN Creatinine Estim Creat Clear Calc Estimated GFR Glucose POC Capillary Glucose (65-105) mg/dl Calcium Magnesium (1.6-2.3) mg/dL Total Bilirubin 1.0 AST Cancelled 100 H ALT Cancelled 108 H Alkaline Phosphatase Cancelled Troponin I (0.000-0.034) ng/mL NT-Pro-B Natriuret Pep (19.9-100) pg/mL Total Protein Albumin Urine Color (Yellow) Urine Appearance (Clear) Urine pH (5.0-9.0) Ur Specific [place] (1.001-1.035) Urine Protein (Negative) mg/dL Urine Glucose (UA) (Negative) mg/dL Urine Ketones (Negative) mg/dL Ur Blood (Man) (Negative) Urine Nitrate (Negative) Urine Bilirubin (Negative) Urine Urobilinogen (<2.0) mg/dL Add Ur Microanalysis Leukocyte Esterase Rfl (Negative) ANGIE/UL Urine RBC (0-2) /hpf Urine WBC (0-3) /hpf Ur Squamous Epith Cells (Few) /hpf Urine Bacteria /hpf Urine Casts Nasal MRSA (PCR) (NOT DETECTE) Hep Bs Antigen (Negative) Hep Bs Antibody Influenza A (RT-PCR) (Negative) Influenza B (RT-PCR) (Negative) RSV (RT-PCR) (Negative) SARS-CoV-2 RNA (RT-PCR) (Negative) 08/05/24 08/05/24 08/05/24 Range/Units 09:14 09:14 09:14 WBC (4.5-10.0) K/mm3 RBC (4.6-6.20) M/mm3 Hgb (14.0-18.0) g/dL Hct (42.0-52.0) % MCV (80-100) fl MCH (26-34) pg MCHC (32-36) g/dl RDW (11.5-14.5) % Plt Count (150-375) k/mm3 MPV (7.4-10.4) fl Immature Gran % (Auto) (0-0.5) % Neut % (Auto) (45.5-73.1) % Lymph % (Auto) (18.3-44.2) % [place] % (Auto) (2.6-8.5) % Eos % (Auto) (0-4.4) % Baso % (Auto) (0.2-1.2) % Lymph # (Auto) (0.9-3.2) K/mm3 [place] # (Auto) (0.1-0.6) K/mm3 Eos # (Auto) (0-0.3) K/mm3 Baso # (Auto) (0.0-0.1) K/mm3 Abs Immat Gran (auto) (0.00-0.031) K/mm3 Absolute Neuts (auto) (1.3-6.7) K/mm3 Absolute Nucleated RBC (0.0-0.012) K/mm3 Band Neutrophils % Nucleated RBC % (0.0-0.2) % Platelet Estimate (Adequate) Hypochromasia Anisocytosis Macrocytosis (NORMAL) Stomatocytes Schistocytes PT (11.1-14.7) Seconds INR APTT (22.3-36.8) Seconds Methemoglobin (0-1.5) %THb Minute Volume Vent Mode Tidal Volume PEEP cmH2O Peak Inspir Pressure cmH2O Pressure Support Sodium Potassium Chloride Carbon Dioxide Anion Gap BUN Creatinine Estim Creat Clear Calc Estimated GFR Glucose POC Capillary Glucose (65-105) mg/dl Calcium Magnesium (1.6-2.3) mg/dL Total Bilirubin AST ALT Alkaline Phosphatase 159 H Troponin I 0.138 H* (0.000-0.034) ng/mL NT-Pro-B Natriuret Pep > 27071 H (19.9-100) pg/mL Total Protein Cancelled 8.0 Albumin Cancelled 4.6 Urine Color (Yellow) Urine Appearance (Clear) Urine pH (5.0-9.0) Ur Specific [place] (1.001-1.035) Urine Protein (Negative) mg/dL Urine Glucose (UA) (Negative) mg/dL Urine Ketones (Negative) mg/dL Ur Blood (Man) (Negative) Urine Nitrate (Negative) Urine Bilirubin (Negative) Urine Urobilinogen (<2.0) mg/dL Add Ur Microanalysis Leukocyte Esterase Rfl (Negative) ANGIE/UL Urine RBC (0-2) /hpf Urine WBC (0-3) /hpf Ur Squamous Epith Cells (Few) /hpf Urine Bacteria /hpf Urine Casts Nasal MRSA (PCR) (NOT DETECTE) Hep Bs Antigen (Negative) Hep Bs Antibody Influenza A (RT-PCR) (Negative) Influenza B (RT-PCR) (Negative) RSV (RT-PCR) (Negative) SARS-CoV-2 RNA (RT-PCR) (Negative) 08/05/24 08/05/24 08/05/24 Range/Units 09:22 09:44 11:24 WBC (4.5-10.0) K/mm3 RBC (4.6-6.20) M/mm3 Hgb (14.0-18.0) g/dL Hct (42.0-52.0) % MCV (80-100) fl MCH (26-34) pg MCHC (32-36) g/dl RDW (11.5-14.5) % Plt Count (150-375) k/mm3 MPV (7.4-10.4) fl Immature Gran % (Auto) (0-0.5) % Neut % (Auto) (45.5-73.1) % Lymph % (Auto) (18.3-44.2) % [place] % (Auto) (2.6-8.5) % Eos % (Auto) (0-4.4) % Baso % (Auto) (0.2-1.2) % Lymph # (Auto) (0.9-3.2) K/mm3 [place] # (Auto) (0.1-0.6) K/mm3 Eos # (Auto) (0-0.3) K/mm3 Baso # (Auto) (0.0-0.1) K/mm3 Abs Immat Gran (auto) (0.00-0.031) K/mm3 Absolute Neuts (auto) (1.3-6.7) K/mm3 Absolute Nucleated RBC (0.0-0.012) K/mm3 Band Neutrophils % Nucleated RBC % (0.0-0.2) % Platelet Estimate (Adequate) Hypochromasia Anisocytosis Macrocytosis (NORMAL) Stomatocytes Schistocytes PT (11.1-14.7) Seconds INR APTT (22.3-36.8) Seconds Methemoglobin 0.1 0.3 (0-1.5) %THb Minute Volume Vent Mode Tidal Volume PEEP cmH2O Peak Inspir Pressure cmH2O Pressure Support Sodium Potassium Chloride Carbon Dioxide Anion Gap BUN Creatinine Estim Creat Clear Calc Estimated GFR Glucose POC Capillary Glucose (65-105) mg/dl Calcium Magnesium (1.6-2.3) mg/dL Total Bilirubin AST ALT Alkaline Phosphatase Troponin I (0.000-0.034) ng/mL NT-Pro-B Natriuret Pep (19.9-100) pg/mL Total Protein Albumin Urine Color (Yellow) Urine Appearance (Clear) Urine pH (5.0-9.0) Ur Specific [place] (1.001-1.035) Urine Protein (Negative) mg/dL Urine Glucose (UA) (Negative) mg/dL Urine Ketones (Negative) mg/dL Ur Blood (Man) (Negative) Urine Nitrate (Negative) Urine Bilirubin (Negative) Urine Urobilinogen (<2.0) mg/dL Add Ur Microanalysis Leukocyte Esterase Rfl (Negative) ANGIE/UL Urine RBC (0-2) /hpf Urine WBC (0-3) /hpf Ur Squamous Epith Cells (Few) /hpf Urine Bacteria /hpf Urine Casts Nasal MRSA (PCR) (NOT DETECTE) Hep Bs Antigen (Negative) Hep Bs Antibody Influenza A (RT-PCR) Negative (Negative) Influenza B (RT-PCR) Negative (Negative) RSV (RT-PCR) Negative (Negative) SARS-CoV-2 RNA (RT-PCR) Negative (Negative) 08/05/24 08/05/24 08/05/24 Range/Units 12:56 15:42 16:05 WBC (4.5-10.0) K/mm3 RBC (4.6-6.20) M/mm3 Hgb (14.0-18.0) g/dL Hct (42.0-52.0) % MCV (80-100) fl MCH (26-34) pg MCHC (32-36) g/dl RDW (11.5-14.5) % Plt Count (150-375) k/mm3 MPV (7.4-10.4) fl Immature Gran % (Auto) (0-0.5) % Neut % (Auto) (45.5-73.1) % Lymph % (Auto) (18.3-44.2) % [place] % (Auto) (2.6-8.5) % Eos % (Auto) (0-4.4) % Baso % (Auto) (0.2-1.2) % Lymph # (Auto) (0.9-3.2) K/mm3 [place] # (Auto) (0.1-0.6) K/mm3 Eos # (Auto) (0-0.3) K/mm3 Baso # (Auto) (0.0-0.1) K/mm3 Abs Immat Gran (auto) (0.00-0.031) K/mm3 Absolute Neuts (auto) (1.3-6.7) K/mm3 Absolute Nucleated RBC (0.0-0.012) K/mm3 Band Neutrophils % Nucleated RBC % (0.0-0.2) % Platelet Estimate (Adequate) Hypochromasia Anisocytosis Macrocytosis (NORMAL) Stomatocytes Schistocytes PT (11.1-14.7) Seconds INR APTT (22.3-36.8) Seconds Methemoglobin 0.2 (0-1.5) %THb Minute Volume Not Reportable Vent Mode Psimv Tidal Volume Not Reportable PEEP 6 cmH2O Peak Inspir Pressure 12 cmH2O Pressure Support Not Reportable Sodium Potassium Chloride Carbon Dioxide Anion Gap BUN Creatinine Estim Creat Clear Calc Estimated GFR Glucose POC Capillary Glucose (65-105) mg/dl Calcium Magnesium (1.6-2.3) mg/dL Total Bilirubin AST ALT Alkaline Phosphatase Troponin I 0.129 H* 0.132 H* (0.000-0.034) ng/mL NT-Pro-B Natriuret Pep (19.9-100) pg/mL Total Protein Albumin Urine Color (Yellow) Urine Appearance (Clear) Urine pH (5.0-9.0) Ur Specific [place] (1.001-1.035) Urine Protein (Negative) mg/dL Urine Glucose (UA) (Negative) mg/dL Urine Ketones (Negative) mg/dL Ur Blood (Man) (Negative) Urine Nitrate (Negative) Urine Bilirubin (Negative) Urine Urobilinogen (<2.0) mg/dL Add Ur Microanalysis Leukocyte Esterase Rfl (Negative) ANGIE/UL Urine RBC (0-2) /hpf Urine WBC (0-3) /hpf Ur Squamous Epith Cells (Few) /hpf Urine Bacteria /hpf Urine Casts Nasal MRSA (PCR) (NOT DETECTE) Hep Bs Antigen (Negative) Hep Bs Antibody Influenza A (RT-PCR) (Negative) Influenza B (RT-PCR) (Negative) RSV (RT-PCR) (Negative) SARS-CoV-2 RNA (RT-PCR) (Negative) 08/05/24 08/05/24 08/06/24 Range/Units 18:29 19:32 03:40 WBC (4.5-10.0) K/mm3 RBC (4.6-6.20) M/mm3 Hgb (14.0-18.0) g/dL Hct (42.0-52.0) % MCV (80-100) fl MCH (26-34) pg MCHC (32-36) g/dl RDW (11.5-14.5) % Plt Count (150-375) k/mm3 MPV (7.4-10.4) fl Immature Gran % (Auto) (0-0.5) % Neut % (Auto) (45.5-73.1) % Lymph % (Auto) (18.3-44.2) % [place] % (Auto) (2.6-8.5) % Eos % (Auto) (0-4.4) % Baso % (Auto) (0.2-1.2) % Lymph # (Auto) (0.9-3.2) K/mm3 [place] # (Auto) (0.1-0.6) K/mm3 Eos # (Auto) (0-0.3) K/mm3 Baso # (Auto) (0.0-0.1) K/mm3 Abs Immat Gran (auto) (0.00-0.031) K/mm3 Absolute Neuts (auto) (1.3-6.7) K/mm3 Absolute Nucleated RBC (0.0-0.012) K/mm3 Band Neutrophils % Nucleated RBC % (0.0-0.2) % Platelet Estimate (Adequate) Hypochromasia Anisocytosis Macrocytosis (NORMAL) Stomatocytes Schistocytes PT (11.1-14.7) Seconds INR APTT (22.3-36.8) Seconds Methemoglobin (0-1.5) %THb Minute Volume Not Reportable Vent Mode Psimv Tidal Volume Not Reportable PEEP 6 cmH2O Peak Inspir Pressure 18 cmH2O Pressure Support Not Reportable Sodium Potassium Chloride Carbon Dioxide Anion Gap BUN Creatinine Estim Creat Clear Calc Estimated GFR Glucose POC Capillary Glucose 80 67 (65-105) mg/dl Calcium Magnesium (1.6-2.3) mg/dL Total Bilirubin AST ALT Alkaline Phosphatase Troponin I (0.000-0.034) ng/mL NT-Pro-B Natriuret Pep (19.9-100) pg/mL Total Protein Albumin Urine Color (Yellow) Urine Appearance (Clear) Urine pH (5.0-9.0) Ur Specific [place] (1.001-1.035) Urine Protein (Negative) mg/dL Urine Glucose (UA) (Negative) mg/dL Urine Ketones (Negative) mg/dL Ur Blood (Man) (Negative) Urine Nitrate (Negative) Urine Bilirubin (Negative) Urine Urobilinogen (<2.0) mg/dL Add Ur Microanalysis Leukocyte Esterase Rfl (Negative) ANGIE/UL Urine RBC (0-2) /hpf Urine WBC (0-3) /hpf Ur Squamous Epith Cells (Few) /hpf Urine Bacteria /hpf Urine Casts Nasal MRSA (PCR) (NOT DETECTE) Hep Bs Antigen (Negative) Hep Bs Antibody Influenza A (RT-PCR) (Negative) Influenza B (RT-PCR) (Negative) RSV (RT-PCR) (Negative) SARS-CoV-2 RNA (RT-PCR) (Negative) 08/06/24 08/06/24 08/06/24 Range/Units 04:00 13:12 20:52 WBC 6.7 (4.5-10.0) K/mm3 RBC 3.83 L (4.6-6.20) M/mm3 Hgb 13.7 L (14.0-18.0) g/dL Hct 44.8 (42.0-52.0) % MCV 117.0 H (80-100) fl MCH 35.8 H (26-34) pg MCHC 30.6 L (32-36) g/dl RDW 17.9 H (11.5-14.5) % Plt Count 143 L (150-375) k/mm3 MPV 11.4 H (7.4-10.4) fl Immature Gran % (Auto) 0.3 (0-0.5) % Neut % (Auto) 72.8 (45.5-73.1) % Lymph % (Auto) 11.7 L (18.3-44.2) % [place] % (Auto) 14.4 H (2.6-8.5) % Eos % (Auto) 0.2 (0-4.4) % Baso % (Auto) 0.6 (0.2-1.2) % Lymph # (Auto) 0.78 L (0.9-3.2) K/mm3 [place] # (Auto) 1.0 H (0.1-0.6) K/mm3 Eos # (Auto) 0.0 (0-0.3) K/mm3 Baso # (Auto) 0.0 (0.0-0.1) K/mm3 Abs Immat Gran (auto) 0.02 (0.00-0.031) K/mm3 Absolute Neuts (auto) 4.8 (1.3-6.7) K/mm3 Absolute Nucleated RBC 0.000 (0.0-0.012) K/mm3 Band Neutrophils % Not Reportable Nucleated RBC % 0.0 (0.0-0.2) % Platelet Estimate Adequate (Adequate) Hypochromasia 1+ Anisocytosis 1+ Macrocytosis (NORMAL) Stomatocytes Schistocytes Rare PT (11.1-14.7) Seconds INR APTT (22.3-36.8) Seconds Methemoglobin (0-1.5) %THb Minute Volume Vent Mode Tidal Volume PEEP cmH2O Peak Inspir Pressure cmH2O Pressure Support Sodium Potassium Chloride Carbon Dioxide Anion Gap BUN Creatinine Estim Creat Clear Calc Estimated GFR Glucose POC Capillary Glucose 106 H (65-105) mg/dl Calcium Magnesium (1.6-2.3) mg/dL Total Bilirubin AST ALT Alkaline Phosphatase Troponin I (0.000-0.034) ng/mL NT-Pro-B Natriuret Pep (19.9-100) pg/mL Total Protein Albumin Urine Color Dark yellow (Yellow) Urine Appearance Cloudy H (Clear) Urine pH 6.5 (5.0-9.0) Ur Specific [place] 1.026 (1.001-1.035) Urine Protein 4+ H (Negative) mg/dL Urine Glucose (UA) Trace H (Negative) mg/dL Urine Ketones Negative (Negative) mg/dL Ur Blood (Man) 2+ H (Negative) Urine Nitrate Negative (Negative) Urine Bilirubin Negative (Negative) Urine Urobilinogen 0.2 (<2.0) mg/dL Add Ur Microanalysis Reviewed Leukocyte Esterase Rfl 1+ H (Negative) ANGIE/UL Urine RBC 21-50 H (0-2) /hpf Urine WBC 0-5 (0-3) /hpf Ur Squamous Epith Cells None seen (Few) /hpf Urine Bacteria None seen /hpf Urine Casts 11-20 Nasal MRSA (PCR) (NOT DETECTE) Hep Bs Antigen (Negative) Hep Bs Antibody Influenza A (RT-PCR) (Negative) Influenza B (RT-PCR) (Negative) RSV (RT-PCR) (Negative) SARS-CoV-2 RNA (RT-PCR) (Negative) 08/06/24 08/07/24 08/07/24 Range/Units 21:12 01:06 01:27 WBC (4.5-10.0) K/mm3 RBC (4.6-6.20) M/mm3 Hgb (14.0-18.0) g/dL Hct (42.0-52.0) % MCV (80-100) fl MCH (26-34) pg MCHC (32-36) g/dl RDW (11.5-14.5) % Plt Count (150-375) k/mm3 MPV (7.4-10.4) fl Immature Gran % (Auto) (0-0.5) % Neut % (Auto) (45.5-73.1) % Lymph % (Auto) (18.3-44.2) % [place] % (Auto) (2.6-8.5) % Eos % (Auto) (0-4.4) % Baso % (Auto) (0.2-1.2) % Lymph # (Auto) (0.9-3.2) K/mm3 [place] # (Auto) (0.1-0.6) K/mm3 Eos # (Auto) (0-0.3) K/mm3 Baso # (Auto) (0.0-0.1) K/mm3 Abs Immat Gran (auto) (0.00-0.031) K/mm3 Absolute Neuts (auto) (1.3-6.7) K/mm3 Absolute Nucleated RBC (0.0-0.012) K/mm3 Band Neutrophils % Nucleated RBC % (0.0-0.2) % Platelet Estimate (Adequate) Hypochromasia Anisocytosis Macrocytosis (NORMAL) Stomatocytes Schistocytes PT (11.1-14.7) Seconds INR APTT (22.3-36.8) Seconds Methemoglobin (0-1.5) %THb Minute Volume Vent Mode Tidal Volume PEEP cmH2O Peak Inspir Pressure cmH2O Pressure Support Sodium 139 Potassium 4.9 Chloride 94 L Carbon Dioxide 30 Anion Gap 15 H BUN 44 H D Creatinine 5.05 H Estim Creat Clear Calc 17 Estimated GFR 12 L Glucose 78 POC Capillary Glucose 63 L 113 H (65-105) mg/dl Calcium 8.6 Magnesium (1.6-2.3) mg/dL Total Bilirubin 1.3 AST 53 ALT 68 H Alkaline Phosphatase 116 Troponin I (0.000-0.034) ng/mL NT-Pro-B Natriuret Pep (19.9-100) pg/mL Total Protein 7.0 Albumin 4.0 Urine Color (Yellow) Urine Appearance (Clear) Urine pH (5.0-9.0) Ur Specific [place] (1.001-1.035) Urine Protein (Negative) mg/dL Urine Glucose (UA) (Negative) mg/dL Urine Ketones (Negative) mg/dL Ur Blood (Man) (Negative) Urine Nitrate (Negative) Urine Bilirubin (Negative) Urine Urobilinogen (<2.0) mg/dL Add Ur Microanalysis Leukocyte Esterase Rfl (Negative) ANGIE/UL Urine RBC (0-2) /hpf Urine WBC (0-3) /hpf Ur Squamous Epith Cells (Few) /hpf Urine Bacteria /hpf Urine Casts Nasal MRSA (PCR) (NOT DETECTE) Hep Bs Antigen (Negative) Hep Bs Antibody Influenza A (RT-PCR) (Negative) Influenza B (RT-PCR) (Negative) RSV (RT-PCR) (Negative) SARS-CoV-2 RNA (RT-PCR) (Negative) 08/07/24 08/07/24 08/07/24 Range/Units 05:07 06:36 07:23 WBC 7.5 (4.5-10.0) K/mm3 RBC 3.60 L (4.6-6.20) M/mm3 Hgb 12.8 L (14.0-18.0) g/dL Hct 41.7 L (42.0-52.0) % MCV 115.8 H (80-100) fl MCH 35.6 H (26-34) pg MCHC 30.7 L (32-36) g/dl RDW 17.8 H (11.5-14.5) % Plt Count 155 (150-375) k/mm3 MPV 10.8 H (7.4-10.4) fl Immature Gran % (Auto) 0.4 (0-0.5) % Neut % (Auto) 72.2 (45.5-73.1) % Lymph % (Auto) 10.7 L (18.3-44.2) % [place] % (Auto) 15.5 H (2.6-8.5) % Eos % (Auto) 0.4 (0-4.4) % Baso % (Auto) 0.8 (0.2-1.2) % Lymph # (Auto) 0.80 L (0.9-3.2) K/mm3 [place] # (Auto) 1.2 H (0.1-0.6) K/mm3 Eos # (Auto) 0.0 (0-0.3) K/mm3 Baso # (Auto) 0.1 (0.0-0.1) K/mm3 Abs Immat Gran (auto) 0.03 (0.00-0.031) K/mm3 Absolute Neuts (auto) 5.4 (1.3-6.7) K/mm3 Absolute Nucleated RBC 0.000 (0.0-0.012) K/mm3 Band Neutrophils % Not Reportable Nucleated RBC % 0.0 (0.0-0.2) % Platelet Estimate Adequate (Adequate) Hypochromasia Anisocytosis Macrocytosis 2+ (NORMAL) Stomatocytes Schistocytes None seen PT (11.1-14.7) Seconds INR APTT (22.3-36.8) Seconds Methemoglobin (0-1.5) %THb Minute Volume Vent Mode Tidal Volume PEEP cmH2O Peak Inspir Pressure cmH2O Pressure Support Sodium 136 L Potassium 4.9 Chloride 95 L Carbon Dioxide 28 Anion Gap 13 H BUN 46 H Creatinine 5.51 H Estim Creat Clear Calc 16 Estimated GFR 11 L Glucose 98 POC Capillary Glucose 82 97 (65-105) mg/dl Calcium 8.6 Magnesium (1.6-2.3) mg/dL Total Bilirubin 1.3 AST 41 ALT 58 H Alkaline Phosphatase 111 Troponin I (0.000-0.034) ng/mL NT-Pro-B Natriuret Pep (19.9-100) pg/mL Total Protein 6.0 L Albumin 3.6 Urine Color (Yellow) Urine Appearance (Clear) Urine pH (5.0-9.0) Ur Specific [place] (1.001-1.035) Urine Protein (Negative) mg/dL Urine Glucose (UA) (Negative) mg/dL Urine Ketones (Negative) mg/dL Ur Blood (Man) (Negative) Urine Nitrate (Negative) Urine Bilirubin (Negative) Urine Urobilinogen (<2.0) mg/dL Add Ur Microanalysis Leukocyte Esterase Rfl (Negative) ANGIE/UL Urine RBC (0-2) /hpf Urine WBC (0-3) /hpf Ur Squamous Epith Cells (Few) /hpf Urine Bacteria /hpf Urine Casts Nasal MRSA (PCR) (NOT DETECTE) Hep Bs Antigen (Negative) Hep Bs Antibody Influenza A (RT-PCR) (Negative) Influenza B (RT-PCR) (Negative) RSV (RT-PCR) (Negative) SARS-CoV-2 RNA (RT-PCR) (Negative) 08/07/24 08/07/24 08/07/24 Range/Units 08:40 10:59 12:38 WBC (4.5-10.0) K/mm3 RBC (4.6-6.20) M/mm3 Hgb (14.0-18.0) g/dL Hct (42.0-52.0) % MCV (80-100) fl MCH (26-34) pg MCHC (32-36) g/dl RDW (11.5-14.5) % Plt Count (150-375) k/mm3 MPV (7.4-10.4) fl Immature Gran % (Auto) (0-0.5) % Neut % (Auto) (45.5-73.1) % Lymph % (Auto) (18.3-44.2) % [place] % (Auto) (2.6-8.5) % Eos % (Auto) (0-4.4) % Baso % (Auto) (0.2-1.2) % Lymph # (Auto) (0.9-3.2) K/mm3 [place] # (Auto) (0.1-0.6) K/mm3 Eos # (Auto) (0-0.3) K/mm3 Baso # (Auto) (0.0-0.1) K/mm3 Abs Immat Gran (auto) (0.00-0.031) K/mm3 Absolute Neuts (auto) (1.3-6.7) K/mm3 Absolute Nucleated RBC (0.0-0.012) K/mm3 Band Neutrophils % Nucleated RBC % (0.0-0.2) % Platelet Estimate (Adequate) Hypochromasia Anisocytosis Macrocytosis (NORMAL) Stomatocytes Schistocytes PT (11.1-14.7) Seconds INR APTT (22.3-36.8) Seconds Methemoglobin (0-1.5) %THb Minute Volume Vent Mode Tidal Volume PEEP cmH2O Peak Inspir Pressure cmH2O Pressure Support Sodium Potassium Chloride Carbon Dioxide Anion Gap BUN Creatinine Estim Creat Clear Calc Estimated GFR Glucose POC Capillary Glucose 106 H 83 79 (65-105) mg/dl Calcium Magnesium (1.6-2.3) mg/dL Total Bilirubin AST ALT Alkaline Phosphatase Troponin I (0.000-0.034) ng/mL NT-Pro-B Natriuret Pep (19.9-100) pg/mL Total Protein Albumin Urine Color (Yellow) Urine Appearance (Clear) Urine pH (5.0-9.0) Ur Specific [place] (1.001-1.035) Urine Protein (Negative) mg/dL Urine Glucose (UA) (Negative) mg/dL Urine Ketones (Negative) mg/dL Ur Blood (Man) (Negative) Urine Nitrate (Negative) Urine Bilirubin (Negative) Urine Urobilinogen (<2.0) mg/dL Add Ur Microanalysis Leukocyte Esterase Rfl (Negative) ANGIE/UL Urine RBC (0-2) /hpf Urine WBC (0-3) /hpf Ur Squamous Epith Cells (Few) /hpf Urine Bacteria /hpf Urine Casts Nasal MRSA (PCR) (NOT DETECTE) Hep Bs Antigen (Negative) Hep Bs Antibody Influenza A (RT-PCR) (Negative) Influenza B (RT-PCR) (Negative) RSV (RT-PCR) (Negative) SARS-CoV-2 RNA (RT-PCR) (Negative) 08/07/24 08/07/24 08/07/24 Range/Units 13:35 15:21 17:08 WBC (4.5-10.0) K/mm3 RBC (4.6-6.20) M/mm3 Hgb (14.0-18.0) g/dL Hct (42.0-52.0) % MCV (80-100) fl MCH (26-34) pg MCHC (32-36) g/dl RDW (11.5-14.5) % Plt Count (150-375) k/mm3 MPV (7.4-10.4) fl Immature Gran % (Auto) (0-0.5) % Neut % (Auto) (45.5-73.1) % Lymph % (Auto) (18.3-44.2) % Woodruff % (Auto) (2.6-8.5) % Eos % (Auto) (0-4.4) % Baso % (Auto) (0.2-1.2) % Lymph # (Auto) (0.9-3.2) K/mm3 [place]ruff # (Auto) (0.1-0.6) K/mm3 Eos # (Auto) (0-0.3) K/mm3 Baso # (Auto) (0.0-0.1) K/mm3 Abs Immat Gran (auto) (0.00-0.031) K/mm3 Absolute Neuts (auto) (1.3-6.7) K/mm3 Absolute Nucleated RBC (0.0-0.012) K/mm3 Band Neutrophils % Nucleated RBC % (0.0-0.2) % Platelet Estimate (Adequate) Hypochromasia Anisocytosis Macrocytosis (NORMAL) Stomatocytes Schistocytes PT (11.1-14.7) Seconds INR APTT (22.3-36.8) Seconds Methemoglobin (0-1.5) %THb Minute Volume Vent Mode Tidal Volume PEEP cmH2O Peak Inspir Pressure cmH2O Pressure Support Sodium Potassium Chloride Carbon Dioxide Anion Gap BUN Creatinine Estim Creat Clear Calc Estimated GFR Glucose POC Capillary Glucose 102 (65-105) mg/dl Calcium Magnesium (1.6-2.3) mg/dL Total Bilirubin AST ALT Alkaline Phosphatase Troponin I (0.000-0.034) ng/mL NT-Pro-B Natriuret Pep (19.9-100) pg/mL Total Protein Albumin Urine Color (Yellow) Urine Appearance (Clear) Urine pH (5.0-9.0) Ur Specific [place] (1.001-1.035) Urine Protein (Negative) mg/dL Urine Glucose (UA) (Negative) mg/dL Urine Ketones (Negative) mg/dL Ur Blood (Man) (Negative) Urine Nitrate (Negative) Urine Bilirubin (Negative) Urine Urobilinogen (<2.0) mg/dL Add Ur Microanalysis Leukocyte Esterase Rfl (Negative) ANGIE/UL Urine RBC (0-2) /hpf Urine WBC (0-3) /hpf Ur Squamous Epith Cells (Few) /hpf Urine Bacteria /hpf Urine Casts Nasal MRSA (PCR) Not detected (NOT DETECTE) Hep Bs Antigen Negative (Negative) Hep Bs Antibody Negative Influenza A (RT-PCR) (Negative) Influenza B (RT-PCR) (Negative) RSV (RT-PCR) (Negative) SARS-CoV-2 RNA (RT-PCR) (Negative) <Rohini Rodriguez PA-C - Last Filed: 08/05/24 19:25> Lab Results 08/05/24 08/05/24 08/05/24 Range/Units 09:14 09:14 09:14 WBC 5.5 (4.5-10.0) K/mm3 RBC 3.85 L (4.6-6.20) M/mm3 Hgb 13.8 L D (14.0-18.0) g/dL Hct 45.0 (42.0-52.0) % MCV 116.9 H (80-100) fl MCH 35.8 H (26-34) pg MCHC 30.7 L (32-36) g/dl RDW 17.6 H (11.5-14.5) % Plt Count 149 L (150-375) k/mm3 MPV 11.3 H (7.4-10.4) fl Immature Gran % (Auto) 1.1 H (0-0.5) % Neut % (Auto) 70.9 (45.5-73.1) % Lymph % (Auto) 11.4 L (18.3-44.2) % [place]ruff % (Auto) 13.9 H (2.6-8.5) % Eos % (Auto) 1.8 (0-4.4) % Baso % (Auto) 0.9 (0.2-1.2) % Lymph # (Auto) 0.63 L (0.9-3.2) K/mm3 [place]ruff # (Auto) 0.8 H (0.1-0.6) K/mm3 Eos # (Auto) 0.1 (0-0.3) K/mm3 Baso # (Auto) 0.1 (0.0-0.1) K/mm3 Abs Immat Gran (auto) 0.06 H (0.00-0.031) K/mm3 Absolute Neuts (auto) 3.9 (1.3-6.7) K/mm3 Absolute Nucleated RBC 0.050 H (0.0-0.012) K/mm3 Band Neutrophils % Not Reportable Nucleated RBC % 0.9 H (0.0-0.2) % Platelet Estimate Slightly decreased (Adequate) Hypochromasia 1+ Anisocytosis Macrocytosis 1+ (NORMAL) Stomatocytes 1+ Schistocytes None seen PT 15.4 H (11.1-14.7) Seconds INR 1.2 APTT 34.4 (22.3-36.8) Seconds Methemoglobin (0-1.5) %THb Minute Volume Vent Mode Tidal Volume PEEP cmH2O Peak Inspir Pressure cmH2O Pressure Support Sodium Cancelled 140 Potassium Cancelled 4.2 Chloride Cancelled Carbon Dioxide Anion Gap BUN Creatinine Estim Creat Clear Calc Estimated GFR Glucose POC Capillary Glucose (65-105) mg/dl Calcium Magnesium (1.6-2.3) mg/dL Total Bilirubin AST ALT Alkaline Phosphatase Troponin I (0.000-0.034) ng/mL NT-Pro-B Natriuret Pep (19.9-100) pg/mL Total Protein Albumin Urine Color (Yellow) Urine Appearance (Clear) Urine pH (5.0-9.0) Ur Specific [place] (1.001-1.035) Urine Protein (Negative) mg/dL Urine Glucose (UA) (Negative) mg/dL Urine Ketones (Negative) mg/dL Ur Blood (Man) (Negative) Urine Nitrate (Negative) Urine Bilirubin (Negative) Urine Urobilinogen (<2.0) mg/dL Add Ur Microanalysis Leukocyte Esterase Rfl (Negative) ANGIE/UL Urine RBC (0-2) /hpf Urine WBC (0-3) /hpf Ur Squamous Epith Cells (Few) /hpf Urine Bacteria /hpf Urine Casts Nasal MRSA (PCR) (NOT DETECTE) Hep Bs Antigen (Negative) Hep Bs Antibody Influenza A (RT-PCR) (Negative) Influenza B (RT-PCR) (Negative) RSV (RT-PCR) (Negative) SARS-CoV-2 RNA (RT-PCR) (Negative) 03/06/25 03/06/25 03/06/25 Range/Units 09:14 09:14 09:14 WBC (4.5-10.0) K/mm3 RBC (4.6-6.20) M/mm3 Hgb (14.0-18.0) g/dL Hct (42.0-52.0) % MCV (80-100) fl MCH (26-34) pg MCHC (32-36) g/dl RDW (11.5-14.5) % Plt Count (150-375) k/mm3 MPV (7.4-10.4) fl Immature Gran % (Auto) (0-0.5) % Neut % (Auto) (45.5-73.1) % Lymph % (Auto) (18.3-44.2) % [place] % (Auto) (2.6-8.5) % Eos % (Auto) (0-4.4) % Baso % (Auto) (0.2-1.2) % Lymph # (Auto) (0.9-3.2) K/mm3 [place] # (Auto) (0.1-0.6) K/mm3 Eos # (Auto) (0-0.3) K/mm3 Baso # (Auto) (0.0-0.1) K/mm3 Abs Immat Gran (auto) (0.00-0.031) K/mm3 Absolute Neuts (auto) (1.3-6.7) K/mm3 Absolute Nucleated RBC (0.0-0.012) K/mm3 Band Neutrophils % Nucleated RBC % (0.0-0.2) % Platelet Estimate (Adequate) Hypochromasia Anisocytosis Macrocytosis (NORMAL) Stomatocytes Schistocytes PT (11.1-14.7) Seconds INR APTT (22.3-36.8) Seconds Methemoglobin (0-1.5) %THb Minute Volume Vent Mode Tidal Volume PEEP cmH2O Peak Inspir Pressure cmH2O Pressure Support Sodium Potassium Chloride 91 L Carbon Dioxide Cancelled 34 H Anion Gap Cancelled 15 H BUN Cancelled Creatinine Estim Creat Clear Calc Estimated GFR Glucose POC Capillary Glucose (65-105) mg/dl Calcium Magnesium (1.6-2.3) mg/dL Total Bilirubin AST ALT Alkaline Phosphatase Troponin I (0.000-0.034) ng/mL NT-Pro-B Natriuret Pep (19.9-100) pg/mL Total Protein Albumin Urine Color (Yellow) Urine Appearance (Clear) Urine pH (5.0-9.0) Ur Specific [place] (1.001-1.035) Urine Protein (Negative) mg/dL Urine Glucose (UA) (Negative) mg/dL Urine Ketones (Negative) mg/dL Ur Blood (Man) (Negative) Urine Nitrate (Negative) Urine Bilirubin (Negative) Urine Urobilinogen (<2.0) mg/dL Add Ur Microanalysis Leukocyte Esterase Rfl (Negative) ANGIE/UL Urine RBC (0-2) /hpf Urine WBC (0-3) /hpf Ur Squamous Epith Cells (Few) /hpf Urine Bacteria /hpf Urine Casts Nasal MRSA (PCR) (NOT DETECTE) Hep Bs Antigen (Negative) Hep Bs Antibody Influenza A (RT-PCR) (Negative) Influenza B (RT-PCR) (Negative) RSV (RT-PCR) (Negative) SARS-CoV-2 RNA (RT-PCR) (Negative) 08/05/24 08/05/24 08/05/24 Range/Units 09:14 09:14 09:14 WBC (4.5-10.0) K/mm3 RBC (4.6-6.20) M/mm3 Hgb (14.0-18.0) g/dL Hct (42.0-52.0) % MCV (80-100) fl MCH (26-34) pg MCHC (32-36) g/dl RDW (11.5-14.5) % Plt Count (150-375) k/mm3 MPV (7.4-10.4) fl Immature Gran % (Auto) (0-0.5) % Neut % (Auto) (45.5-73.1) % Lymph % (Auto) (18.3-44.2) % [place] % (Auto) (2.6-8.5) % Eos % (Auto) (0-4.4) % Baso % (Auto) (0.2-1.2) % Lymph # (Auto) (0.9-3.2) K/mm3 [place] # (Auto) (0.1-0.6) K/mm3 Eos # (Auto) (0-0.3) K/mm3 Baso # (Auto) (0.0-0.1) K/mm3 Abs Immat Gran (auto) (0.00-0.031) K/mm3 Absolute Neuts (auto) (1.3-6.7) K/mm3 Absolute Nucleated RBC (0.0-0.012) K/mm3 Band Neutrophils % Nucleated RBC % (0.0-0.2) % Platelet Estimate (Adequate) Hypochromasia Anisocytosis Macrocytosis (NORMAL) Stomatocytes Schistocytes PT (11.1-14.7) Seconds INR APTT (22.3-36.8) Seconds Methemoglobin (0-1.5) %THb Minute Volume Vent Mode Tidal Volume PEEP cmH2O Peak Inspir Pressure cmH2O Pressure Support Sodium Potassium Chloride Carbon Dioxide Anion Gap BUN 34 H D Creatinine Cancelled 3.97 H Estim Creat Clear Calc Cancelled 22 Estimated GFR Cancelled Glucose POC Capillary Glucose (65-105) mg/dl Calcium Magnesium (1.6-2.3) mg/dL Total Bilirubin AST ALT Alkaline Phosphatase Troponin I (0.000-0.034) ng/mL NT-Pro-B Natriuret Pep (19.9-100) pg/mL Total Protein Albumin Urine Color (Yellow) Urine Appearance (Clear) Urine pH (5.0-9.0) Ur Specific [place] (1.001-1.035) Urine Protein (Negative) mg/dL Urine Glucose (UA) (Negative) mg/dL Urine Ketones (Negative) mg/dL Ur Blood (Man) (Negative) Urine Nitrate (Negative) Urine Bilirubin (Negative) Urine Urobilinogen (<2.0) mg/dL Add Ur Microanalysis Leukocyte Esterase Rfl (Negative) ANGIE/UL Urine RBC (0-2) /hpf Urine WBC (0-3) /hpf Ur Squamous Epith Cells (Few) /hpf Urine Bacteria /hpf Urine Casts Nasal MRSA (PCR) (NOT DETECTE) Hep Bs Antigen (Negative) Hep Bs Antibody Influenza A (RT-PCR) (Negative) Influenza B (RT-PCR) (Negative) RSV (RT-PCR) (Negative) SARS-CoV-2 RNA (RT-PCR) (Negative) 08/05/24 08/05/24 08/05/24 Range/Units 09:14 09:14 09:14 WBC (4.5-10.0) K/mm3 RBC (4.6-6.20) M/mm3 Hgb (14.0-18.0) g/dL Hct (42.0-52.0) % MCV (80-100) fl MCH (26-34) pg MCHC (32-36) g/dl RDW (11.5-14.5) % Plt Count (150-375) k/mm3 MPV (7.4-10.4) fl Immature Gran % (Auto) (0-0.5) % Neut % (Auto) (45.5-73.1) % Lymph % (Auto) (18.3-44.2) % [place] % (Auto) (2.6-8.5) % Eos % (Auto) (0-4.4) % Baso % (Auto) (0.2-1.2) % Lymph # (Auto) (0.9-3.2) K/mm3 [place] # (Auto) (0.1-0.6) K/mm3 Eos # (Auto) (0-0.3) K/mm3 Baso # (Auto) (0.0-0.1) K/mm3 Abs Immat Gran (auto) (0.00-0.031) K/mm3 Absolute Neuts (auto) (1.3-6.7) K/mm3 Absolute Nucleated RBC (0.0-0.012) K/mm3 Band Neutrophils % Nucleated RBC % (0.0-0.2) % Platelet Estimate (Adequate) Hypochromasia Anisocytosis Macrocytosis (NORMAL) Stomatocytes Schistocytes PT (11.1-14.7) Seconds INR APTT (22.3-36.8) Seconds Methemoglobin (0-1.5) %THb Minute Volume Vent Mode Tidal Volume PEEP cmH2O Peak Inspir Pressure cmH2O Pressure Support Sodium Potassium Chloride Carbon Dioxide Anion Gap BUN Creatinine Estim Creat Clear Calc Estimated GFR 16 L Glucose Cancelled 122 H POC Capillary Glucose (65-105) mg/dl Calcium Cancelled 8.6 Magnesium 2.3 (1.6-2.3) mg/dL Total Bilirubin Cancelled AST ALT Alkaline Phosphatase Troponin I (0.000-0.034) ng/mL NT-Pro-B Natriuret Pep (19.9-100) pg/mL Total Protein Albumin Urine Color (Yellow) Urine Appearance (Clear) Urine pH (5.0-9.0) Ur Specific [place] (1.001-1.035) Urine Protein (Negative) mg/dL Urine Glucose (UA) (Negative) mg/dL Urine Ketones (Negative) mg/dL Ur Blood (Man) (Negative) Urine Nitrate (Negative) Urine Bilirubin (Negative) Urine Urobilinogen (<2.0) mg/dL Add Ur Microanalysis Leukocyte Esterase Rfl (Negative) ANGIE/UL Urine RBC (0-2) /hpf Urine WBC (0-3) /hpf Ur Squamous Epith Cells (Few) /hpf Urine Bacteria /hpf Urine Casts Nasal MRSA (PCR) (NOT DETECTE) Hep Bs Antigen (Negative) Hep Bs Antibody Influenza A (RT-PCR) (Negative) Influenza B (RT-PCR) (Negative) RSV (RT-PCR) (Negative) SARS-CoV-2 RNA (RT-PCR) (Negative) 08/05/24 08/05/24 08/05/24 Range/Units 09:14 09:14 09:14 WBC (4.5-10.0) K/mm3 RBC (4.6-6.20) M/mm3 Hgb (14.0-18.0) g/dL Hct (42.0-52.0) % MCV (80-100) fl MCH (26-34) pg MCHC (32-36) g/dl RDW (11.5-14.5) % Plt Count (150-375) k/mm3 MPV (7.4-10.4) fl Immature Gran % (Auto) (0-0.5) % Neut % (Auto) (45.5-73.1) % Lymph % (Auto) (18.3-44.2) % [place] % (Auto) (2.6-8.5) % Eos % (Auto) (0-4.4) % Baso % (Auto) (0.2-1.2) % Lymph # (Auto) (0.9-3.2) K/mm3 [place] # (Auto) (0.1-0.6) K/mm3 Eos # (Auto) (0-0.3) K/mm3 Baso # (Auto) (0.0-0.1) K/mm3 Abs Immat Gran (auto) (0.00-0.031) K/mm3 Absolute Neuts (auto) (1.3-6.7) K/mm3 Absolute Nucleated RBC (0.0-0.012) K/mm3 Band Neutrophils % Nucleated RBC % (0.0-0.2) % Platelet Estimate (Adequate) Hypochromasia Anisocytosis Macrocytosis (NORMAL) Stomatocytes Schistocytes PT (11.1-14.7) Seconds INR APTT (22.3-36.8) Seconds Methemoglobin (0-1.5) %THb Minute Volume Vent Mode Tidal Volume PEEP cmH2O Peak Inspir Pressure cmH2O Pressure Support Sodium Potassium Chloride Carbon Dioxide Anion Gap BUN Creatinine Estim Creat Clear Calc Estimated GFR Glucose POC Capillary Glucose (65-105) mg/dl Calcium Magnesium (1.6-2.3) mg/dL Total Bilirubin 1.0 AST Cancelled 100 H ALT Cancelled 108 H Alkaline Phosphatase Cancelled Troponin I (0.000-0.034) ng/mL NT-Pro-B Natriuret Pep (19.9-100) pg/mL Total Protein Albumin Urine Color (Yellow) Urine Appearance (Clear) Urine pH (5.0-9.0) Ur Specific [place] (1.001-1.035) Urine Protein (Negative) mg/dL Urine Glucose (UA) (Negative) mg/dL Urine Ketones (Negative) mg/dL Ur Blood (Man) (Negative) Urine Nitrate (Negative) Urine Bilirubin (Negative) Urine Urobilinogen (<2.0) mg/dL Add Ur Microanalysis Leukocyte Esterase Rfl (Negative) ANGIE/UL Urine RBC (0-2) /hpf Urine WBC (0-3) /hpf Ur Squamous Epith Cells (Few) /hpf Urine Bacteria /hpf Urine Casts Nasal MRSA (PCR) (NOT DETECTE) Hep Bs Antigen (Negative) Hep Bs Antibody Influenza A (RT-PCR) (Negative) Influenza B (RT-PCR) (Negative) RSV (RT-PCR) (Negative) SARS-CoV-2 RNA (RT-PCR) (Negative) 08/05/24 08/05/24 08/05/24 Range/Units 09:14 09:14 09:14 WBC (4.5-10.0) K/mm3 RBC (4.6-6.20) M/mm3 Hgb (14.0-18.0) g/dL Hct (42.0-52.0) % MCV (80-100) fl MCH (26-34) pg MCHC (32-36) g/dl RDW (11.5-14.5) % Plt Count (150-375) k/mm3 MPV (7.4-10.4) fl Immature Gran % (Auto) (0-0.5) % Neut % (Auto) (45.5-73.1) % Lymph % (Auto) (18.3-44.2) % [place] % (Auto) (2.6-8.5) % Eos % (Auto) (0-4.4) % Baso % (Auto) (0.2-1.2) % Lymph # (Auto) (0.9-3.2) K/mm3 [place] # (Auto) (0.1-0.6) K/mm3 Eos # (Auto) (0-0.3) K/mm3 Baso # (Auto) (0.0-0.1) K/mm3 Abs Immat Gran (auto) (0.00-0.031) K/mm3 Absolute Neuts (auto) (1.3-6.7) K/mm3 Absolute Nucleated RBC (0.0-0.012) K/mm3 Band Neutrophils % Nucleated RBC % (0.0-0.2) % Platelet Estimate (Adequate) Hypochromasia Anisocytosis Macrocytosis (NORMAL) Stomatocytes Schistocytes PT (11.1-14.7) Seconds INR APTT (22.3-36.8) Seconds Methemoglobin (0-1.5) %THb Minute Volume Vent Mode Tidal Volume PEEP cmH2O Peak Inspir Pressure cmH2O Pressure Support Sodium Potassium Chloride Carbon Dioxide Anion Gap BUN Creatinine Estim Creat Clear Calc Estimated GFR Glucose POC Capillary Glucose (65-105) mg/dl Calcium Magnesium (1.6-2.3) mg/dL Total Bilirubin AST ALT Alkaline Phosphatase 159 H Troponin I 0.138 H* (0.000-0.034) ng/mL NT-Pro-B Natriuret Pep > 80175 H (19.9-100) pg/mL Total Protein Cancelled 8.0 Albumin Cancelled 4.6 Urine Color (Yellow) Urine Appearance (Clear) Urine pH (5.0-9.0) Ur Specific [place] (1.001-1.035) Urine Protein (Negative) mg/dL Urine Glucose (UA) (Negative) mg/dL Urine Ketones (Negative) mg/dL Ur Blood (Man) (Negative) Urine Nitrate (Negative) Urine Bilirubin (Negative) Urine Urobilinogen (<2.0) mg/dL Add Ur Microanalysis Leukocyte Esterase Rfl (Negative) ANGIE/UL Urine RBC (0-2) /hpf Urine WBC (0-3) /hpf Ur Squamous Epith Cells (Few) /hpf Urine Bacteria /hpf Urine Casts Nasal MRSA (PCR) (NOT DETECTE) Hep Bs Antigen (Negative) Hep Bs Antibody Influenza A (RT-PCR) (Negative) Influenza B (RT-PCR) (Negative) RSV (RT-PCR) (Negative) SARS-CoV-2 RNA (RT-PCR) (Negative) 08/05/24 08/05/24 08/05/24 Range/Units 09:22 09:44 11:24 WBC (4.5-10.0) K/mm3 RBC (4.6-6.20) M/mm3 Hgb (14.0-18.0) g/dL Hct (42.0-52.0) % MCV (80-100) fl MCH (26-34) pg MCHC (32-36) g/dl RDW (11.5-14.5) % Plt Count (150-375) k/mm3 MPV (7.4-10.4) fl Immature Gran % (Auto) (0-0.5) % Neut % (Auto) (45.5-73.1) % Lymph % (Auto) (18.3-44.2) % [place] % (Auto) (2.6-8.5) % Eos % (Auto) (0-4.4) % Baso % (Auto) (0.2-1.2) % Lymph # (Auto) (0.9-3.2) K/mm3 [place] # (Auto) (0.1-0.6) K/mm3 Eos # (Auto) (0-0.3) K/mm3 Baso # (Auto) (0.0-0.1) K/mm3 Abs Immat Gran (auto) (0.00-0.031) K/mm3 Absolute Neuts (auto) (1.3-6.7) K/mm3 Absolute Nucleated RBC (0.0-0.012) K/mm3 Band Neutrophils % Nucleated RBC % (0.0-0.2) % Platelet Estimate (Adequate) Hypochromasia Anisocytosis Macrocytosis (NORMAL) Stomatocytes Schistocytes PT (11.1-14.7) Seconds INR APTT (22.3-36.8) Seconds Methemoglobin 0.1 0.3 (0-1.5) %THb Minute Volume Vent Mode Tidal Volume PEEP cmH2O Peak Inspir Pressure cmH2O Pressure Support Sodium Potassium Chloride Carbon Dioxide Anion Gap BUN Creatinine Estim Creat Clear Calc Estimated GFR Glucose POC Capillary Glucose (65-105) mg/dl Calcium Magnesium (1.6-2.3) mg/dL Total Bilirubin AST ALT Alkaline Phosphatase Troponin I (0.000-0.034) ng/mL NT-Pro-B Natriuret Pep (19.9-100) pg/mL Total Protein Albumin Urine Color (Yellow) Urine Appearance (Clear) Urine pH (5.0-9.0) Ur Specific [place] (1.001-1.035) Urine Protein (Negative) mg/dL Urine Glucose (UA) (Negative) mg/dL Urine Ketones (Negative) mg/dL Ur Blood (Man) (Negative) Urine Nitrate (Negative) Urine Bilirubin (Negative) Urine Urobilinogen (<2.0) mg/dL Add Ur Microanalysis Leukocyte Esterase Rfl (Negative) ANGIE/UL Urine RBC (0-2) /hpf Urine WBC (0-3) /hpf Ur Squamous Epith Cells (Few) /hpf Urine Bacteria /hpf Urine Casts Nasal MRSA (PCR) (NOT DETECTE) Hep Bs Antigen (Negative) Hep Bs Antibody Influenza A (RT-PCR) Negative (Negative) Influenza B (RT-PCR) Negative (Negative) RSV (RT-PCR) Negative (Negative) SARS-CoV-2 RNA (RT-PCR) Negative (Negative) 08/05/24 08/05/24 08/05/24 Range/Units 12:56 15:42 16:05 WBC (4.5-10.0) K/mm3 RBC (4.6-6.20) M/mm3 Hgb (14.0-18.0) g/dL Hct (42.0-52.0) % MCV (80-100) fl MCH (26-34) pg MCHC (32-36) g/dl RDW (11.5-14.5) % Plt Count (150-375) k/mm3 MPV (7.4-10.4) fl Immature Gran % (Auto) (0-0.5) % Neut % (Auto) (45.5-73.1) % Lymph % (Auto) (18.3-44.2) % [place] % (Auto) (2.6-8.5) % Eos % (Auto) (0-4.4) % Baso % (Auto) (0.2-1.2) % Lymph # (Auto) (0.9-3.2) K/mm3 [place] # (Auto) (0.1-0.6) K/mm3 Eos # (Auto) (0-0.3) K/mm3 Baso # (Auto) (0.0-0.1) K/mm3 Abs Immat Gran (auto) (0.00-0.031) K/mm3 Absolute Neuts (auto) (1.3-6.7) K/mm3 Absolute Nucleated RBC (0.0-0.012) K/mm3 Band Neutrophils % Nucleated RBC % (0.0-0.2) % Platelet Estimate (Adequate) Hypochromasia Anisocytosis Macrocytosis (NORMAL) Stomatocytes Schistocytes PT (11.1-14.7) Seconds INR APTT (22.3-36.8) Seconds Methemoglobin 0.2 (0-1.5) %THb Minute Volume Not Reportable Vent Mode Psimv Tidal Volume Not Reportable PEEP 6 cmH2O Peak Inspir Pressure 12 cmH2O Pressure Support Not Reportable Sodium Potassium Chloride Carbon Dioxide Anion Gap BUN Creatinine Estim Creat Clear Calc Estimated GFR Glucose POC Capillary Glucose (65-105) mg/dl Calcium Magnesium (1.6-2.3) mg/dL Total Bilirubin AST ALT Alkaline Phosphatase Troponin I 0.129 H* 0.132 H* (0.000-0.034) ng/mL NT-Pro-B Natriuret Pep (19.9-100) pg/mL Total Protein Albumin Urine Color (Yellow) Urine Appearance (Clear) Urine pH (5.0-9.0) Ur Specific [place] (1.001-1.035) Urine Protein (Negative) mg/dL Urine Glucose (UA) (Negative) mg/dL Urine Ketones (Negative) mg/dL Ur Blood (Man) (Negative) Urine Nitrate (Negative) Urine Bilirubin (Negative) Urine Urobilinogen (<2.0) mg/dL Add Ur Microanalysis Leukocyte Esterase Rfl (Negative) ANGIE/UL Urine RBC (0-2) /hpf Urine WBC (0-3) /hpf Ur Squamous Epith Cells (Few) /hpf Urine Bacteria /hpf Urine Casts Nasal MRSA (PCR) (NOT DETECTE) Hep Bs Antigen (Negative) Hep Bs Antibody Influenza A (RT-PCR) (Negative) Influenza B (RT-PCR) (Negative) RSV (RT-PCR) (Negative) SARS-CoV-2 RNA (RT-PCR) (Negative) 08/05/24 08/05/24 08/06/24 Range/Units 18:29 19:32 03:40 WBC (4.5-10.0) K/mm3 RBC (4.6-6.20) M/mm3 Hgb (14.0-18.0) g/dL Hct (42.0-52.0) % MCV (80-100) fl MCH (26-34) pg MCHC (32-36) g/dl RDW (11.5-14.5) % Plt Count (150-375) k/mm3 MPV (7.4-10.4) fl Immature Gran % (Auto) (0-0.5) % Neut % (Auto) (45.5-73.1) % Lymph % (Auto) (18.3-44.2) % [place] % (Auto) (2.6-8.5) % Eos % (Auto) (0-4.4) % Baso % (Auto) (0.2-1.2) % Lymph # (Auto) (0.9-3.2) K/mm3 [place] # (Auto) (0.1-0.6) K/mm3 Eos # (Auto) (0-0.3) K/mm3 Baso # (Auto) (0.0-0.1) K/mm3 Abs Immat Gran (auto) (0.00-0.031) K/mm3 Absolute Neuts (auto) (1.3-6.7) K/mm3 Absolute Nucleated RBC (0.0-0.012) K/mm3 Band Neutrophils % Nucleated RBC % (0.0-0.2) % Platelet Estimate (Adequate) Hypochromasia Anisocytosis Macrocytosis (NORMAL) Stomatocytes Schistocytes PT (11.1-14.7) Seconds INR APTT (22.3-36.8) Seconds Methemoglobin (0-1.5) %THb Minute Volume Not Reportable Vent Mode Psimv Tidal Volume Not Reportable PEEP 6 cmH2O Peak Inspir Pressure 18 cmH2O Pressure Support Not Reportable Sodium Potassium Chloride Carbon Dioxide Anion Gap BUN Creatinine Estim Creat Clear Calc Estimated GFR Glucose POC Capillary Glucose 80 67 (65-105) mg/dl Calcium Magnesium (1.6-2.3) mg/dL Total Bilirubin AST ALT Alkaline Phosphatase Troponin I (0.000-0.034) ng/mL NT-Pro-B Natriuret Pep (19.9-100) pg/mL Total Protein Albumin Urine Color (Yellow) Urine Appearance (Clear) Urine pH (5.0-9.0) Ur Specific [place] (1.001-1.035) Urine Protein (Negative) mg/dL Urine Glucose (UA) (Negative) mg/dL Urine Ketones (Negative) mg/dL Ur Blood (Man) (Negative) Urine Nitrate (Negative) Urine Bilirubin (Negative) Urine Urobilinogen (<2.0) mg/dL Add Ur Microanalysis Leukocyte Esterase Rfl (Negative) ANGIE/UL Urine RBC (0-2) /hpf Urine WBC (0-3) /hpf Ur Squamous Epith Cells (Few) /hpf Urine Bacteria /hpf Urine Casts Nasal MRSA (PCR) (NOT DETECTE) Hep Bs Antigen (Negative) Hep Bs Antibody Influenza A (RT-PCR) (Negative) Influenza B (RT-PCR) (Negative) RSV (RT-PCR) (Negative) SARS-CoV-2 RNA (RT-PCR) (Negative) 08/06/24 08/06/24 08/06/24 Range/Units 04:00 13:12 20:52 WBC 6.7 (4.5-10.0) K/mm3 RBC 3.83 L (4.6-6.20) M/mm3 Hgb 13.7 L (14.0-18.0) g/dL Hct 44.8 (42.0-52.0) % MCV 117.0 H (80-100) fl MCH 35.8 H (26-34) pg MCHC 30.6 L (32-36) g/dl RDW 17.9 H (11.5-14.5) % Plt Count 143 L (150-375) k/mm3 MPV 11.4 H (7.4-10.4) fl Immature Gran % (Auto) 0.3 (0-0.5) % Neut % (Auto) 72.8 (45.5-73.1) % Lymph % (Auto) 11.7 L (18.3-44.2) % [place] % (Auto) 14.4 H (2.6-8.5) % Eos % (Auto) 0.2 (0-4.4) % Baso % (Auto) 0.6 (0.2-1.2) % Lymph # (Auto) 0.78 L (0.9-3.2) K/mm3 [place] # (Auto) 1.0 H (0.1-0.6) K/mm3 Eos # (Auto) 0.0 (0-0.3) K/mm3 Baso # (Auto) 0.0 (0.0-0.1) K/mm3 Abs Immat Gran (auto) 0.02 (0.00-0.031) K/mm3 Absolute Neuts (auto) 4.8 (1.3-6.7) K/mm3 Absolute Nucleated RBC 0.000 (0.0-0.012) K/mm3 Band Neutrophils % Not Reportable Nucleated RBC % 0.0 (0.0-0.2) % Platelet Estimate Adequate (Adequate) Hypochromasia 1+ Anisocytosis 1+ Macrocytosis (NORMAL) Stomatocytes Schistocytes Rare PT (11.1-14.7) Seconds INR APTT (22.3-36.8) Seconds Methemoglobin (0-1.5) %THb Minute Volume Vent Mode Tidal Volume PEEP cmH2O Peak Inspir Pressure cmH2O Pressure Support Sodium Potassium Chloride Carbon Dioxide Anion Gap BUN Creatinine Estim Creat Clear Calc Estimated GFR Glucose POC Capillary Glucose 106 H (65-105) mg/dl Calcium Magnesium (1.6-2.3) mg/dL Total Bilirubin AST ALT Alkaline Phosphatase Troponin I (0.000-0.034) ng/mL NT-Pro-B Natriuret Pep (19.9-100) pg/mL Total Protein Albumin Urine Color Dark yellow (Yellow) Urine Appearance Cloudy H (Clear) Urine pH 6.5 (5.0-9.0) Ur Specific [place] 1.026 (1.001-1.035) Urine Protein 4+ H (Negative) mg/dL Urine Glucose (UA) Trace H (Negative) mg/dL Urine Ketones Negative (Negative) mg/dL Ur Blood (Man) 2+ H (Negative) Urine Nitrate Negative (Negative) Urine Bilirubin Negative (Negative) Urine Urobilinogen 0.2 (<2.0) mg/dL Add Ur Microanalysis Reviewed Leukocyte Esterase Rfl 1+ H (Negative) ANGIE/UL Urine RBC 21-50 H (0-2) /hpf Urine WBC 0-5 (0-3) /hpf Ur Squamous Epith Cells None seen (Few) /hpf Urine Bacteria None seen /hpf Urine Casts 11-20 Nasal MRSA (PCR) (NOT DETECTE) Hep Bs Antigen (Negative) Hep Bs Antibody Influenza A (RT-PCR) (Negative) Influenza B (RT-PCR) (Negative) RSV (RT-PCR) (Negative) SARS-CoV-2 RNA (RT-PCR) (Negative) 08/06/24 08/07/24 08/07/24 Range/Units 21:12 01:06 01:27 WBC (4.5-10.0) K/mm3 RBC (4.6-6.20) M/mm3 Hgb (14.0-18.0) g/dL Hct (42.0-52.0) % MCV (80-100) fl MCH (26-34) pg MCHC (32-36) g/dl RDW (11.5-14.5) % Plt Count (150-375) k/mm3 MPV (7.4-10.4) fl Immature Gran % (Auto) (0-0.5) % Neut % (Auto) (45.5-73.1) % Lymph % (Auto) (18.3-44.2) % [place]ruff % (Auto) (2.6-8.5) % Eos % (Auto) (0-4.4) % Baso % (Auto) (0.2-1.2) % Lymph # (Auto) (0.9-3.2) K/mm3 Woodruff # (Auto) (0.1-0.6) K/mm3 Eos # (Auto) (0-0.3) K/mm3 Baso # (Auto) (0.0-0.1) K/mm3 Abs Immat Gran (auto) (0.00-0.031) K/mm3 Absolute Neuts (auto) (1.3-6.7) K/mm3 Absolute Nucleated RBC (0.0-0.012) K/mm3 Band Neutrophils % Nucleated RBC % (0.0-0.2) % Platelet Estimate (Adequate) Hypochromasia Anisocytosis Macrocytosis (NORMAL) Stomatocytes Schistocytes PT (11.1-14.7) Seconds INR APTT (22.3-36.8) Seconds Methemoglobin (0-1.5) %THb Minute Volume Vent Mode Tidal Volume PEEP cmH2O Peak Inspir Pressure cmH2O Pressure Support Sodium 139 Potassium 4.9 Chloride 94 L Carbon Dioxide 30 Anion Gap 15 H BUN 44 H D Creatinine 5.05 H Estim Creat Clear Calc 17 Estimated GFR 12 L Glucose 78 POC Capillary Glucose 63 L 113 H (65-105) mg/dl Calcium 8.6 Magnesium (1.6-2.3) mg/dL Total Bilirubin 1.3 AST 53 ALT 68 H Alkaline Phosphatase 116 Troponin I (0.000-0.034) ng/mL NT-Pro-B Natriuret Pep (19.9-100) pg/mL Total Protein 7.0 Albumin 4.0 Urine Color (Yellow) Urine Appearance (Clear) Urine pH (5.0-9.0) Ur Specific [place] (1.001-1.035) Urine Protein (Negative) mg/dL Urine Glucose (UA) (Negative) mg/dL Urine Ketones (Negative) mg/dL Ur Blood (Man) (Negative) Urine Nitrate (Negative) Urine Bilirubin (Negative) Urine Urobilinogen (<2.0) mg/dL Add Ur Microanalysis Leukocyte Esterase Rfl (Negative) ANGIE/UL Urine RBC (0-2) /hpf Urine WBC (0-3) /hpf Ur Squamous Epith Cells (Few) /hpf Urine Bacteria /hpf Urine Casts Nasal MRSA (PCR) (NOT DETECTE) Hep Bs Antigen (Negative) Hep Bs Antibody Influenza A (RT-PCR) (Negative) Influenza B (RT-PCR) (Negative) RSV (RT-PCR) (Negative) SARS-CoV-2 RNA (RT-PCR) (Negative) 08/07/24 08/07/24 08/07/24 Range/Units 05:07 06:36 07:23 WBC 7.5 (4.5-10.0) K/mm3 RBC 3.60 L (4.6-6.20) M/mm3 Hgb 12.8 L (14.0-18.0) g/dL Hct 41.7 L (42.0-52.0) % MCV 115.8 H (80-100) fl MCH 35.6 H (26-34) pg MCHC 30.7 L (32-36) g/dl RDW 17.8 H (11.5-14.5) % Plt Count 155 (150-375) k/mm3 MPV 10.8 H (7.4-10.4) fl Immature Gran % (Auto) 0.4 (0-0.5) % Neut % (Auto) 72.2 (45.5-73.1) % Lymph % (Auto) 10.7 L (18.3-44.2) % Woodruff % (Auto) 15.5 H (2.6-8.5) % Eos % (Auto) 0.4 (0-4.4) % Baso % (Auto) 0.8 (0.2-1.2) % Lymph # (Auto) 0.80 L (0.9-3.2) K/mm3 [place]ruff # (Auto) 1.2 H (0.1-0.6) K/mm3 Eos # (Auto) 0.0 (0-0.3) K/mm3 Baso # (Auto) 0.1 (0.0-0.1) K/mm3 Abs Immat Gran (auto) 0.03 (0.00-0.031) K/mm3 Absolute Neuts (auto) 5.4 (1.3-6.7) K/mm3 Absolute Nucleated RBC 0.000 (0.0-0.012) K/mm3 Band Neutrophils % Not Reportable Nucleated RBC % 0.0 (0.0-0.2) % Platelet Estimate Adequate (Adequate) Hypochromasia Anisocytosis Macrocytosis 2+ (NORMAL) Stomatocytes Schistocytes None seen PT (11.1-14.7) Seconds INR APTT (22.3-36.8) Seconds Methemoglobin (0-1.5) %THb Minute Volume Vent Mode Tidal Volume PEEP cmH2O Peak Inspir Pressure cmH2O Pressure Support Sodium 136 L Potassium 4.9 Chloride 95 L Carbon Dioxide 28 Anion Gap 13 H BUN 46 H Creatinine 5.51 H Estim Creat Clear Calc 16 Estimated GFR 11 L Glucose 98 POC Capillary Glucose 82 97 (65-105) mg/dl Calcium 8.6 Magnesium (1.6-2.3) mg/dL Total Bilirubin 1.3 AST 41 ALT 58 H Alkaline Phosphatase 111 Troponin I (0.000-0.034) ng/mL NT-Pro-B Natriuret Pep (19.9-100) pg/mL Total Protein 6.0 L Albumin 3.6 Urine Color (Yellow) Urine Appearance (Clear) Urine pH (5.0-9.0) Ur Specific [place] (1.001-1.035) Urine Protein (Negative) mg/dL Urine Glucose (UA) (Negative) mg/dL Urine Ketones (Negative) mg/dL Ur Blood (Man) (Negative) Urine Nitrate (Negative) Urine Bilirubin (Negative) Urine Urobilinogen (<2.0) mg/dL Add Ur Microanalysis Leukocyte Esterase Rfl (Negative) ANGIE/UL Urine RBC (0-2) /hpf Urine WBC (0-3) /hpf Ur Squamous Epith Cells (Few) /hpf Urine Bacteria /hpf Urine Casts Nasal MRSA (PCR) (NOT DETECTE) Hep Bs Antigen (Negative) Hep Bs Antibody Influenza A (RT-PCR) (Negative) Influenza B (RT-PCR) (Negative) RSV (RT-PCR) (Negative) SARS-CoV-2 RNA (RT-PCR) (Negative) 08/07/24 08/07/24 08/07/24 Range/Units 08:40 10:59 12:38 WBC (4.5-10.0) K/mm3 RBC (4.6-6.20) M/mm3 Hgb (14.0-18.0) g/dL Hct (42.0-52.0) % MCV (80-100) fl MCH (26-34) pg MCHC (32-36) g/dl RDW (11.5-14.5) % Plt Count (150-375) k/mm3 MPV (7.4-10.4) fl Immature Gran % (Auto) (0-0.5) % Neut % (Auto) (45.5-73.1) % Lymph % (Auto) (18.3-44.2) % [place]ruff % (Auto) (2.6-8.5) % Eos % (Auto) (0-4.4) % Baso % (Auto) (0.2-1.2) % Lymph # (Auto) (0.9-3.2) K/mm3 [place] # (Auto) (0.1-0.6) K/mm3 Eos # (Auto) (0-0.3) K/mm3 Baso # (Auto) (0.0-0.1) K/mm3 Abs Immat Gran (auto) (0.00-0.031) K/mm3 Absolute Neuts (auto) (1.3-6.7) K/mm3 Absolute Nucleated RBC (0.0-0.012) K/mm3 Band Neutrophils % Nucleated RBC % (0.0-0.2) % Platelet Estimate (Adequate) Hypochromasia Anisocytosis Macrocytosis (NORMAL) Stomatocytes Schistocytes PT (11.1-14.7) Seconds INR APTT (22.3-36.8) Seconds Methemoglobin (0-1.5) %THb Minute Volume Vent Mode Tidal Volume PEEP cmH2O Peak Inspir Pressure cmH2O Pressure Support Sodium Potassium Chloride Carbon Dioxide Anion Gap BUN Creatinine Estim Creat Clear Calc Estimated GFR Glucose POC Capillary Glucose 106 H 83 79 (65-105) mg/dl Calcium Magnesium (1.6-2.3) mg/dL Total Bilirubin AST ALT Alkaline Phosphatase Troponin I (0.000-0.034) ng/mL NT-Pro-B Natriuret Pep (19.9-100) pg/mL Total Protein Albumin Urine Color (Yellow) Urine Appearance (Clear) Urine pH (5.0-9.0) Ur Specific [place] (1.001-1.035) Urine Protein (Negative) mg/dL Urine Glucose (UA) (Negative) mg/dL Urine Ketones (Negative) mg/dL Ur Blood (Man) (Negative) Urine Nitrate (Negative) Urine Bilirubin (Negative) Urine Urobilinogen (<2.0) mg/dL Add Ur Microanalysis Leukocyte Esterase Rfl (Negative) ANGIE/UL Urine RBC (0-2) /hpf Urine WBC (0-3) /hpf Ur Squamous Epith Cells (Few) /hpf Urine Bacteria /hpf Urine Casts Nasal MRSA (PCR) (NOT DETECTE) Hep Bs Antigen (Negative) Hep Bs Antibody Influenza A (RT-PCR) (Negative) Influenza B (RT-PCR) (Negative) RSV (RT-PCR) (Negative) SARS-CoV-2 RNA (RT-PCR) (Negative) 08/07/24 08/07/24 08/07/24 Range/Units 13:35 15:21 17:08 WBC (4.5-10.0) K/mm3 RBC (4.6-6.20) M/mm3 Hgb (14.0-18.0) g/dL Hct (42.0-52.0) % MCV (80-100) fl MCH (26-34) pg MCHC (32-36) g/dl RDW (11.5-14.5) % Plt Count (150-375) k/mm3 MPV (7.4-10.4) fl Immature Gran % (Auto) (0-0.5) % Neut % (Auto) (45.5-73.1) % Lymph % (Auto) (18.3-44.2) % [place] % (Auto) (2.6-8.5) % Eos % (Auto) (0-4.4) % Baso % (Auto) (0.2-1.2) % Lymph # (Auto) (0.9-3.2) K/mm3 [place] # (Auto) (0.1-0.6) K/mm3 Eos # (Auto) (0-0.3) K/mm3 Baso # (Auto) (0.0-0.1) K/mm3 Abs Immat Gran (auto) (0.00-0.031) K/mm3 Absolute Neuts (auto) (1.3-6.7) K/mm3 Absolute Nucleated RBC (0.0-0.012) K/mm3 Band Neutrophils % Nucleated RBC % (0.0-0.2) % Platelet Estimate (Adequate) Hypochromasia Anisocytosis Macrocytosis (NORMAL) Stomatocytes Schistocytes PT (11.1-14.7) Seconds INR APTT (22.3-36.8) Seconds Methemoglobin (0-1.5) %THb Minute Volume Vent Mode Tidal Volume PEEP cmH2O Peak Inspir Pressure cmH2O Pressure Support Sodium Potassium Chloride Carbon Dioxide Anion Gap BUN Creatinine Estim Creat Clear Calc Estimated GFR Glucose POC Capillary Glucose 102 (65-105) mg/dl Calcium Magnesium (1.6-2.3) mg/dL Total Bilirubin AST ALT Alkaline Phosphatase Troponin I (0.000-0.034) ng/mL NT-Pro-B Natriuret Pep (19.9-100) pg/mL Total Protein Albumin Urine Color (Yellow) Urine Appearance (Clear) Urine pH (5.0-9.0) Ur Specific [place] (1.001-1.035) Urine Protein (Negative) mg/dL Urine Glucose (UA) (Negative) mg/dL Urine Ketones (Negative) mg/dL Ur Blood (Man) (Negative) Urine Nitrate (Negative) Urine Bilirubin (Negative) Urine Urobilinogen (<2.0) mg/dL Add Ur Microanalysis Leukocyte Esterase Rfl (Negative) ANGIE/UL Urine RBC (0-2) /hpf Urine WBC (0-3) /hpf Ur Squamous Epith Cells (Few) /hpf Urine Bacteria /hpf Urine Casts Nasal MRSA (PCR) Not detected (NOT DETECTE) Hep Bs Antigen Negative (Negative) Hep Bs Antibody Negative Influenza A (RT-PCR) (Negative) Influenza B (RT-PCR) (Negative) RSV (RT-PCR) (Negative) SARS-CoV-2 RNA (RT-PCR) (Negative) <Gaudencio Arroyo MD - Last Filed: 08/07/24 18:41> Lab Results 08/05/24 08/05/24 08/05/24 Range/Units 09:14 09:14 09:14 WBC 5.5 (4.5-10.0) K/mm3 RBC 3.85 L (4.6-6.20) M/mm3 Hgb 13.8 L D (14.0-18.0) g/dL Hct 45.0 (42.0-52.0) % MCV 116.9 H (80-100) fl MCH 35.8 H (26-34) pg MCHC 30.7 L (32-36) g/dl RDW 17.6 H (11.5-14.5) % Plt Count 149 L (150-375) k/mm3 MPV 11.3 H (7.4-10.4) fl Immature Gran % (Auto) 1.1 H (0-0.5) % Neut % (Auto) 70.9 (45.5-73.1) % Lymph % (Auto) 11.4 L (18.3-44.2) % [place] % (Auto) 13.9 H (2.6-8.5) % Eos % (Auto) 1.8 (0-4.4) % Baso % (Auto) 0.9 (0.2-1.2) % Lymph # (Auto) 0.63 L (0.9-3.2) K/mm3 [place] # (Auto) 0.8 H (0.1-0.6) K/mm3 Eos # (Auto) 0.1 (0-0.3) K/mm3 Baso # (Auto) 0.1 (0.0-0.1) K/mm3 Abs Immat Gran (auto) 0.06 H (0.00-0.031) K/mm3 Absolute Neuts (auto) 3.9 (1.3-6.7) K/mm3 Absolute Nucleated RBC 0.050 H (0.0-0.012) K/mm3 Band Neutrophils % Not Reportable Nucleated RBC % 0.9 H (0.0-0.2) % Platelet Estimate Slightly decreased (Adequate) Hypochromasia 1+ Anisocytosis Macrocytosis 1+ (NORMAL) Stomatocytes 1+ Schistocytes None seen PT 15.4 H (11.1-14.7) Seconds INR 1.2 APTT 34.4 (22.3-36.8) Seconds Methemoglobin (0-1.5) %THb Minute Volume Vent Mode Tidal Volume PEEP cmH2O Peak Inspir Pressure cmH2O Pressure Support Sodium Cancelled 140 Potassium Cancelled 4.2 Chloride Cancelled Carbon Dioxide Anion Gap BUN Creatinine Estim Creat Clear Calc Estimated GFR Glucose POC Capillary Glucose (65-105) mg/dl Calcium Magnesium (1.6-2.3) mg/dL Total Bilirubin AST ALT Alkaline Phosphatase Troponin I (0.000-0.034) ng/mL NT-Pro-B Natriuret Pep (19.9-100) pg/mL Total Protein Albumin Urine Color (Yellow) Urine Appearance (Clear) Urine pH (5.0-9.0) Ur Specific [place] (1.001-1.035) Urine Protein (Negative) mg/dL Urine Glucose (UA) (Negative) mg/dL Urine Ketones (Negative) mg/dL Ur Blood (Man) (Negative) Urine Nitrate (Negative) Urine Bilirubin (Negative) Urine Urobilinogen (<2.0) mg/dL Add Ur Microanalysis Leukocyte Esterase Rfl (Negative) ANGIE/UL Urine RBC (0-2) /hpf Urine WBC (0-3) /hpf Ur Squamous Epith Cells (Few) /hpf Urine Bacteria /hpf Urine Casts Nasal MRSA (PCR) (NOT DETECTE) Hep Bs Antigen (Negative) Hep Bs Antibody Influenza A (RT-PCR) (Negative) Influenza B (RT-PCR) (Negative) RSV (RT-PCR) (Negative) SARS-CoV-2 RNA (RT-PCR) (Negative) 08/05/24 08/05/24 08/05/24 Range/Units 09:14 09:14 09:14 WBC (4.5-10.0) K/mm3 RBC (4.6-6.20) M/mm3 Hgb (14.0-18.0) g/dL Hct (42.0-52.0) % MCV (80-100) fl MCH (26-34) pg MCHC (32-36) g/dl RDW (11.5-14.5) % Plt Count (150-375) k/mm3 MPV (7.4-10.4) fl Immature Gran % (Auto) (0-0.5) % Neut % (Auto) (45.5-73.1) % Lymph % (Auto) (18.3-44.2) % [place] % (Auto) (2.6-8.5) % Eos % (Auto) (0-4.4) % Baso % (Auto) (0.2-1.2) % Lymph # (Auto) (0.9-3.2) K/mm3 [place] # (Auto) (0.1-0.6) K/mm3 Eos # (Auto) (0-0.3) K/mm3 Baso # (Auto) (0.0-0.1) K/mm3 Abs Immat Gran (auto) (0.00-0.031) K/mm3 Absolute Neuts (auto) (1.3-6.7) K/mm3 Absolute Nucleated RBC (0.0-0.012) K/mm3 Band Neutrophils % Nucleated RBC % (0.0-0.2) % Platelet Estimate (Adequate) Hypochromasia Anisocytosis Macrocytosis (NORMAL) Stomatocytes Schistocytes PT (11.1-14.7) Seconds INR APTT (22.3-36.8) Seconds Methemoglobin (0-1.5) %THb Minute Volume Vent Mode Tidal Volume PEEP cmH2O Peak Inspir Pressure cmH2O Pressure Support Sodium Potassium Chloride 91 L Carbon Dioxide Cancelled 34 H Anion Gap Cancelled 15 H BUN Cancelled Creatinine Estim Creat Clear Calc Estimated GFR Glucose POC Capillary Glucose (65-105) mg/dl Calcium Magnesium (1.6-2.3) mg/dL Total Bilirubin AST ALT Alkaline Phosphatase Troponin I (0.000-0.034) ng/mL NT-Pro-B Natriuret Pep (19.9-100) pg/mL Total Protein Albumin Urine Color (Yellow) Urine Appearance (Clear) Urine pH (5.0-9.0) Ur Specific [place] (1.001-1.035) Urine Protein (Negative) mg/dL Urine Glucose (UA) (Negative) mg/dL Urine Ketones (Negative) mg/dL Ur Blood (Man) (Negative) Urine Nitrate (Negative) Urine Bilirubin (Negative) Urine Urobilinogen (<2.0) mg/dL Add Ur Microanalysis Leukocyte Esterase Rfl (Negative) ANGIE/UL Urine RBC (0-2) /hpf Urine WBC (0-3) /hpf Ur Squamous Epith Cells (Few) /hpf Urine Bacteria /hpf Urine Casts Nasal MRSA (PCR) (NOT DETECTE) Hep Bs Antigen (Negative) Hep Bs Antibody Influenza A (RT-PCR) (Negative) Influenza B (RT-PCR) (Negative) RSV (RT-PCR) (Negative) SARS-CoV-2 RNA (RT-PCR) (Negative) 08/05/24 08/05/24 08/05/24 Range/Units 09:14 09:14 09:14 WBC (4.5-10.0) K/mm3 RBC (4.6-6.20) M/mm3 Hgb (14.0-18.0) g/dL Hct (42.0-52.0) % MCV (80-100) fl MCH (26-34) pg MCHC (32-36) g/dl RDW (11.5-14.5) % Plt Count (150-375) k/mm3 MPV (7.4-10.4) fl Immature Gran % (Auto) (0-0.5) % Neut % (Auto) (45.5-73.1) % Lymph % (Auto) (18.3-44.2) % [place] % (Auto) (2.6-8.5) % Eos % (Auto) (0-4.4) % Baso % (Auto) (0.2-1.2) % Lymph # (Auto) (0.9-3.2) K/mm3 [place] # (Auto) (0.1-0.6) K/mm3 Eos # (Auto) (0-0.3) K/mm3 Baso # (Auto) (0.0-0.1) K/mm3 Abs Immat Gran (auto) (0.00-0.031) K/mm3 Absolute Neuts (auto) (1.3-6.7) K/mm3 Absolute Nucleated RBC (0.0-0.012) K/mm3 Band Neutrophils % Nucleated RBC % (0.0-0.2) % Platelet Estimate (Adequate) Hypochromasia Anisocytosis Macrocytosis (NORMAL) Stomatocytes Schistocytes PT (11.1-14.7) Seconds INR APTT (22.3-36.8) Seconds Methemoglobin (0-1.5) %THb Minute Volume Vent Mode Tidal Volume PEEP cmH2O Peak Inspir Pressure cmH2O Pressure Support Sodium Potassium Chloride Carbon Dioxide Anion Gap BUN 34 H D Creatinine Cancelled 3.97 H Estim Creat Clear Calc Cancelled 22 Estimated GFR Cancelled Glucose POC Capillary Glucose (65-105) mg/dl Calcium Magnesium (1.6-2.3) mg/dL Total Bilirubin AST ALT Alkaline Phosphatase Troponin I (0.000-0.034) ng/mL NT-Pro-B Natriuret Pep (19.9-100) pg/mL Total Protein Albumin Urine Color (Yellow) Urine Appearance (Clear) Urine pH (5.0-9.0) Ur Specific [place] (1.001-1.035) Urine Protein (Negative) mg/dL Urine Glucose (UA) (Negative) mg/dL Urine Ketones (Negative) mg/dL Ur Blood (Man) (Negative) Urine Nitrate (Negative) Urine Bilirubin (Negative) Urine Urobilinogen (<2.0) mg/dL Add Ur Microanalysis Leukocyte Esterase Rfl (Negative) ANGIE/UL Urine RBC (0-2) /hpf Urine WBC (0-3) /hpf Ur Squamous Epith Cells (Few) /hpf Urine Bacteria /hpf Urine Casts Nasal MRSA (PCR) (NOT DETECTE) Hep Bs Antigen (Negative) Hep Bs Antibody Influenza A (RT-PCR) (Negative) Influenza B (RT-PCR) (Negative) RSV (RT-PCR) (Negative) SARS-CoV-2 RNA (RT-PCR) (Negative) 08/05/24 08/05/24 08/05/24 Range/Units 09:14 09:14 09:14 WBC (4.5-10.0) K/mm3 RBC (4.6-6.20) M/mm3 Hgb (14.0-18.0) g/dL Hct (42.0-52.0) % MCV (80-100) fl MCH (26-34) pg MCHC (32-36) g/dl RDW (11.5-14.5) % Plt Count (150-375) k/mm3 MPV (7.4-10.4) fl Immature Gran % (Auto) (0-0.5) % Neut % (Auto) (45.5-73.1) % Lymph % (Auto) (18.3-44.2) % [place] % (Auto) (2.6-8.5) % Eos % (Auto) (0-4.4) % Baso % (Auto) (0.2-1.2) % Lymph # (Auto) (0.9-3.2) K/mm3 [place] # (Auto) (0.1-0.6) K/mm3 Eos # (Auto) (0-0.3) K/mm3 Baso # (Auto) (0.0-0.1) K/mm3 Abs Immat Gran (auto) (0.00-0.031) K/mm3 Absolute Neuts (auto) (1.3-6.7) K/mm3 Absolute Nucleated RBC (0.0-0.012) K/mm3 Band Neutrophils % Nucleated RBC % (0.0-0.2) % Platelet Estimate (Adequate) Hypochromasia Anisocytosis Macrocytosis (NORMAL) Stomatocytes Schistocytes PT (11.1-14.7) Seconds INR APTT (22.3-36.8) Seconds Methemoglobin (0-1.5) %THb Minute Volume Vent Mode Tidal Volume PEEP cmH2O Peak Inspir Pressure cmH2O Pressure Support Sodium Potassium Chloride Carbon Dioxide Anion Gap BUN Creatinine Estim Creat Clear Calc Estimated GFR 16 L Glucose Cancelled 122 H POC Capillary Glucose (65-105) mg/dl Calcium Cancelled 8.6 Magnesium 2.3 (1.6-2.3) mg/dL Total Bilirubin Cancelled AST ALT Alkaline Phosphatase Troponin I (0.000-0.034) ng/mL NT-Pro-B Natriuret Pep (19.9-100) pg/mL Total Protein Albumin Urine Color (Yellow) Urine Appearance (Clear) Urine pH (5.0-9.0) Ur Specific [place] (1.001-1.035) Urine Protein (Negative) mg/dL Urine Glucose (UA) (Negative) mg/dL Urine Ketones (Negative) mg/dL Ur Blood (Man) (Negative) Urine Nitrate (Negative) Urine Bilirubin (Negative) Urine Urobilinogen (<2.0) mg/dL Add Ur Microanalysis Leukocyte Esterase Rfl (Negative) ANGIE/UL Urine RBC (0-2) /hpf Urine WBC (0-3) /hpf Ur Squamous Epith Cells (Few) /hpf Urine Bacteria /hpf Urine Casts Nasal MRSA (PCR) (NOT DETECTE) Hep Bs Antigen (Negative) Hep Bs Antibody Influenza A (RT-PCR) (Negative) Influenza B (RT-PCR) (Negative) RSV (RT-PCR) (Negative) SARS-CoV-2 RNA (RT-PCR) (Negative) 08/05/24 08/05/24 08/05/24 Range/Units 09:14 09:14 09:14 WBC (4.5-10.0) K/mm3 RBC (4.6-6.20) M/mm3 Hgb (14.0-18.0) g/dL Hct (42.0-52.0) % MCV (80-100) fl MCH (26-34) pg MCHC (32-36) g/dl RDW (11.5-14.5) % Plt Count (150-375) k/mm3 MPV (7.4-10.4) fl Immature Gran % (Auto) (0-0.5) % Neut % (Auto) (45.5-73.1) % Lymph % (Auto) (18.3-44.2) % [place] % (Auto) (2.6-8.5) % Eos % (Auto) (0-4.4) % Baso % (Auto) (0.2-1.2) % Lymph # (Auto) (0.9-3.2) K/mm3 [place] # (Auto) (0.1-0.6) K/mm3 Eos # (Auto) (0-0.3) K/mm3 Baso # (Auto) (0.0-0.1) K/mm3 Abs Immat Gran (auto) (0.00-0.031) K/mm3 Absolute Neuts (auto) (1.3-6.7) K/mm3 Absolute Nucleated RBC (0.0-0.012) K/mm3 Band Neutrophils % Nucleated RBC % (0.0-0.2) % Platelet Estimate (Adequate) Hypochromasia Anisocytosis Macrocytosis (NORMAL) Stomatocytes Schistocytes PT (11.1-14.7) Seconds INR APTT (22.3-36.8) Seconds Methemoglobin (0-1.5) %THb Minute Volume Vent Mode Tidal Volume PEEP cmH2O Peak Inspir Pressure cmH2O Pressure Support Sodium Potassium Chloride Carbon Dioxide Anion Gap BUN Creatinine Estim Creat Clear Calc Estimated GFR Glucose POC Capillary Glucose (65-105) mg/dl Calcium Magnesium (1.6-2.3) mg/dL Total Bilirubin 1.0 AST Cancelled 100 H ALT Cancelled 108 H Alkaline Phosphatase Cancelled Troponin I (0.000-0.034) ng/mL NT-Pro-B Natriuret Pep (19.9-100) pg/mL Total Protein Albumin Urine Color (Yellow) Urine Appearance (Clear) Urine pH (5.0-9.0) Ur Specific [place] (1.001-1.035) Urine Protein (Negative) mg/dL Urine Glucose (UA) (Negative) mg/dL Urine Ketones (Negative) mg/dL Ur Blood (Man) (Negative) Urine Nitrate (Negative) Urine Bilirubin (Negative) Urine Urobilinogen (<2.0) mg/dL Add Ur Microanalysis Leukocyte Esterase Rfl (Negative) ANGIE/UL Urine RBC (0-2) /hpf Urine WBC (0-3) /hpf Ur Squamous Epith Cells (Few) /hpf Urine Bacteria /hpf Urine Casts Nasal MRSA (PCR) (NOT DETECTE) Hep Bs Antigen (Negative) Hep Bs Antibody Influenza A (RT-PCR) (Negative) Influenza B (RT-PCR) (Negative) RSV (RT-PCR) (Negative) SARS-CoV-2 RNA (RT-PCR) (Negative) 08/05/24 08/05/24 08/05/24 Range/Units 09:14 09:14 09:14 WBC (4.5-10.0) K/mm3 RBC (4.6-6.20) M/mm3 Hgb (14.0-18.0) g/dL Hct (42.0-52.0) % MCV (80-100) fl MCH (26-34) pg MCHC (32-36) g/dl RDW (11.5-14.5) % Plt Count (150-375) k/mm3 MPV (7.4-10.4) fl Immature Gran % (Auto) (0-0.5) % Neut % (Auto) (45.5-73.1) % Lymph % (Auto) (18.3-44.2) % [place] % (Auto) (2.6-8.5) % Eos % (Auto) (0-4.4) % Baso % (Auto) (0.2-1.2) % Lymph # (Auto) (0.9-3.2) K/mm3 [place] # (Auto) (0.1-0.6) K/mm3 Eos # (Auto) (0-0.3) K/mm3 Baso # (Auto) (0.0-0.1) K/mm3 Abs Immat Gran (auto) (0.00-0.031) K/mm3 Absolute Neuts (auto) (1.3-6.7) K/mm3 Absolute Nucleated RBC (0.0-0.012) K/mm3 Band Neutrophils % Nucleated RBC % (0.0-0.2) % Platelet Estimate (Adequate) Hypochromasia Anisocytosis Macrocytosis (NORMAL) Stomatocytes Schistocytes PT (11.1-14.7) Seconds INR APTT (22.3-36.8) Seconds Methemoglobin (0-1.5) %THb Minute Volume Vent Mode Tidal Volume PEEP cmH2O Peak Inspir Pressure cmH2O Pressure Support Sodium Potassium Chloride Carbon Dioxide Anion Gap BUN Creatinine Estim Creat Clear Calc Estimated GFR Glucose POC Capillary Glucose (65-105) mg/dl Calcium Magnesium (1.6-2.3) mg/dL Total Bilirubin AST ALT Alkaline Phosphatase 159 H Troponin I 0.138 H* (0.000-0.034) ng/mL NT-Pro-B Natriuret Pep > 87218 H (19.9-100) pg/mL Total Protein Cancelled 8.0 Albumin Cancelled 4.6 Urine Color (Yellow) Urine Appearance (Clear) Urine pH (5.0-9.0) Ur Specific [place] (1.001-1.035) Urine Protein (Negative) mg/dL Urine Glucose (UA) (Negative) mg/dL Urine Ketones (Negative) mg/dL Ur Blood (Man) (Negative) Urine Nitrate (Negative) Urine Bilirubin (Negative) Urine Urobilinogen (<2.0) mg/dL Add Ur Microanalysis Leukocyte Esterase Rfl (Negative) ANGIE/UL Urine RBC (0-2) /hpf Urine WBC (0-3) /hpf Ur Squamous Epith Cells (Few) /hpf Urine Bacteria /hpf Urine Casts Nasal MRSA (PCR) (NOT DETECTE) Hep Bs Antigen (Negative) Hep Bs Antibody Influenza A (RT-PCR) (Negative) Influenza B (RT-PCR) (Negative) RSV (RT-PCR) (Negative) SARS-CoV-2 RNA (RT-PCR) (Negative) 08/05/24 08/05/24 08/05/24 Range/Units 09:22 09:44 11:24 WBC (4.5-10.0) K/mm3 RBC (4.6-6.20) M/mm3 Hgb (14.0-18.0) g/dL Hct (42.0-52.0) % MCV (80-100) fl MCH (26-34) pg MCHC (32-36) g/dl RDW (11.5-14.5) % Plt Count (150-375) k/mm3 MPV (7.4-10.4) fl Immature Gran % (Auto) (0-0.5) % Neut % (Auto) (45.5-73.1) % Lymph % (Auto) (18.3-44.2) % [place] % (Auto) (2.6-8.5) % Eos % (Auto) (0-4.4) % Baso % (Auto) (0.2-1.2) % Lymph # (Auto) (0.9-3.2) K/mm3 [place] # (Auto) (0.1-0.6) K/mm3 Eos # (Auto) (0-0.3) K/mm3 Baso # (Auto) (0.0-0.1) K/mm3 Abs Immat Gran (auto) (0.00-0.031) K/mm3 Absolute Neuts (auto) (1.3-6.7) K/mm3 Absolute Nucleated RBC (0.0-0.012) K/mm3 Band Neutrophils % Nucleated RBC % (0.0-0.2) % Platelet Estimate (Adequate) Hypochromasia Anisocytosis Macrocytosis (NORMAL) Stomatocytes Schistocytes PT (11.1-14.7) Seconds INR APTT (22.3-36.8) Seconds Methemoglobin 0.1 0.3 (0-1.5) %THb Minute Volume Vent Mode Tidal Volume PEEP cmH2O Peak Inspir Pressure cmH2O Pressure Support Sodium Potassium Chloride Carbon Dioxide Anion Gap BUN Creatinine Estim Creat Clear Calc Estimated GFR Glucose POC Capillary Glucose (65-105) mg/dl Calcium Magnesium (1.6-2.3) mg/dL Total Bilirubin AST ALT Alkaline Phosphatase Troponin I (0.000-0.034) ng/mL NT-Pro-B Natriuret Pep (19.9-100) pg/mL Total Protein Albumin Urine Color (Yellow) Urine Appearance (Clear) Urine pH (5.0-9.0) Ur Specific [place] (1.001-1.035) Urine Protein (Negative) mg/dL Urine Glucose (UA) (Negative) mg/dL Urine Ketones (Negative) mg/dL Ur Blood (Man) (Negative) Urine Nitrate (Negative) Urine Bilirubin (Negative) Urine Urobilinogen (<2.0) mg/dL Add Ur Microanalysis Leukocyte Esterase Rfl (Negative) ANGIE/UL Urine RBC (0-2) /hpf Urine WBC (0-3) /hpf Ur Squamous Epith Cells (Few) /hpf Urine Bacteria /hpf Urine Casts Nasal MRSA (PCR) (NOT DETECTE) Hep Bs Antigen (Negative) Hep Bs Antibody Influenza A (RT-PCR) Negative (Negative) Influenza B (RT-PCR) Negative (Negative) RSV (RT-PCR) Negative (Negative) SARS-CoV-2 RNA (RT-PCR) Negative (Negative) 08/05/24 08/05/24 08/05/24 Range/Units 12:56 15:42 16:05 WBC (4.5-10.0) K/mm3 RBC (4.6-6.20) M/mm3 Hgb (14.0-18.0) g/dL Hct (42.0-52.0) % MCV (80-100) fl MCH (26-34) pg MCHC (32-36) g/dl RDW (11.5-14.5) % Plt Count (150-375) k/mm3 MPV (7.4-10.4) fl Immature Gran % (Auto) (0-0.5) % Neut % (Auto) (45.5-73.1) % Lymph % (Auto) (18.3-44.2) % [place] % (Auto) (2.6-8.5) % Eos % (Auto) (0-4.4) % Baso % (Auto) (0.2-1.2) % Lymph # (Auto) (0.9-3.2) K/mm3 [place] # (Auto) (0.1-0.6) K/mm3 Eos # (Auto) (0-0.3) K/mm3 Baso # (Auto) (0.0-0.1) K/mm3 Abs Immat Gran (auto) (0.00-0.031) K/mm3 Absolute Neuts (auto) (1.3-6.7) K/mm3 Absolute Nucleated RBC (0.0-0.012) K/mm3 Band Neutrophils % Nucleated RBC % (0.0-0.2) % Platelet Estimate (Adequate) Hypochromasia Anisocytosis Macrocytosis (NORMAL) Stomatocytes Schistocytes PT (11.1-14.7) Seconds INR APTT (22.3-36.8) Seconds Methemoglobin 0.2 (0-1.5) %THb Minute Volume Not Reportable Vent Mode Psimv Tidal Volume Not Reportable PEEP 6 cmH2O Peak Inspir Pressure 12 cmH2O Pressure Support Not Reportable Sodium Potassium Chloride Carbon Dioxide Anion Gap BUN Creatinine Estim Creat Clear Calc Estimated GFR Glucose POC Capillary Glucose (65-105) mg/dl Calcium Magnesium (1.6-2.3) mg/dL Total Bilirubin AST ALT Alkaline Phosphatase Troponin I 0.129 H* 0.132 H* (0.000-0.034) ng/mL NT-Pro-B Natriuret Pep (19.9-100) pg/mL Total Protein Albumin Urine Color (Yellow) Urine Appearance (Clear) Urine pH (5.0-9.0) Ur Specific [place] (1.001-1.035) Urine Protein (Negative) mg/dL Urine Glucose (UA) (Negative) mg/dL Urine Ketones (Negative) mg/dL Ur Blood (Man) (Negative) Urine Nitrate (Negative) Urine Bilirubin (Negative) Urine Urobilinogen (<2.0) mg/dL Add Ur Microanalysis Leukocyte Esterase Rfl (Negative) ANGIE/UL Urine RBC (0-2) /hpf Urine WBC (0-3) /hpf Ur Squamous Epith Cells (Few) /hpf Urine Bacteria /hpf Urine Casts Nasal MRSA (PCR) (NOT DETECTE) Hep Bs Antigen (Negative) Hep Bs Antibody Influenza A (RT-PCR) (Negative) Influenza B (RT-PCR) (Negative) RSV (RT-PCR) (Negative) SARS-CoV-2 RNA (RT-PCR) (Negative) 08/05/24 08/05/24 08/06/24 Range/Units 18:29 19:32 03:40 WBC (4.5-10.0) K/mm3 RBC (4.6-6.20) M/mm3 Hgb (14.0-18.0) g/dL Hct (42.0-52.0) % MCV (80-100) fl MCH (26-34) pg MCHC (32-36) g/dl RDW (11.5-14.5) % Plt Count (150-375) k/mm3 MPV (7.4-10.4) fl Immature Gran % (Auto) (0-0.5) % Neut % (Auto) (45.5-73.1) % Lymph % (Auto) (18.3-44.2) % [place] % (Auto) (2.6-8.5) % Eos % (Auto) (0-4.4) % Baso % (Auto) (0.2-1.2) % Lymph # (Auto) (0.9-3.2) K/mm3 [place]ruff # (Auto) (0.1-0.6) K/mm3 Eos # (Auto) (0-0.3) K/mm3 Baso # (Auto) (0.0-0.1) K/mm3 Abs Immat Gran (auto) (0.00-0.031) K/mm3 Absolute Neuts (auto) (1.3-6.7) K/mm3 Absolute Nucleated RBC (0.0-0.012) K/mm3 Band Neutrophils % Nucleated RBC % (0.0-0.2) % Platelet Estimate (Adequate) Hypochromasia Anisocytosis Macrocytosis (NORMAL) Stomatocytes Schistocytes PT (11.1-14.7) Seconds INR APTT (22.3-36.8) Seconds Methemoglobin (0-1.5) %THb Minute Volume Not Reportable Vent Mode Psimv Tidal Volume Not Reportable PEEP 6 cmH2O Peak Inspir Pressure 18 cmH2O Pressure Support Not Reportable Sodium Potassium Chloride Carbon Dioxide Anion Gap BUN Creatinine Estim Creat Clear Calc Estimated GFR Glucose POC Capillary Glucose 80 67 (65-105) mg/dl Calcium Magnesium (1.6-2.3) mg/dL Total Bilirubin AST ALT Alkaline Phosphatase Troponin I (0.000-0.034) ng/mL NT-Pro-B Natriuret Pep (19.9-100) pg/mL Total Protein Albumin Urine Color (Yellow) Urine Appearance (Clear) Urine pH (5.0-9.0) Ur Specific [place] (1.001-1.035) Urine Protein (Negative) mg/dL Urine Glucose (UA) (Negative) mg/dL Urine Ketones (Negative) mg/dL Ur Blood (Man) (Negative) Urine Nitrate (Negative) Urine Bilirubin (Negative) Urine Urobilinogen (<2.0) mg/dL Add Ur Microanalysis Leukocyte Esterase Rfl (Negative) ANGIE/UL Urine RBC (0-2) /hpf Urine WBC (0-3) /hpf Ur Squamous Epith Cells (Few) /hpf Urine Bacteria /hpf Urine Casts Nasal MRSA (PCR) (NOT DETECTE) Hep Bs Antigen (Negative) Hep Bs Antibody Influenza A (RT-PCR) (Negative) Influenza B (RT-PCR) (Negative) RSV (RT-PCR) (Negative) SARS-CoV-2 RNA (RT-PCR) (Negative) 08/06/24 08/06/24 08/06/24 Range/Units 04:00 13:12 20:52 WBC 6.7 (4.5-10.0) K/mm3 RBC 3.83 L (4.6-6.20) M/mm3 Hgb 13.7 L (14.0-18.0) g/dL Hct 44.8 (42.0-52.0) % MCV 117.0 H (80-100) fl MCH 35.8 H (26-34) pg MCHC 30.6 L (32-36) g/dl RDW 17.9 H (11.5-14.5) % Plt Count 143 L (150-375) k/mm3 MPV 11.4 H (7.4-10.4) fl Immature Gran % (Auto) 0.3 (0-0.5) % Neut % (Auto) 72.8 (45.5-73.1) % Lymph % (Auto) 11.7 L (18.3-44.2) % [place]ruff % (Auto) 14.4 H (2.6-8.5) % Eos % (Auto) 0.2 (0-4.4) % Baso % (Auto) 0.6 (0.2-1.2) % Lymph # (Auto) 0.78 L (0.9-3.2) K/mm3 [place] # (Auto) 1.0 H (0.1-0.6) K/mm3 Eos # (Auto) 0.0 (0-0.3) K/mm3 Baso # (Auto) 0.0 (0.0-0.1) K/mm3 Abs Immat Gran (auto) 0.02 (0.00-0.031) K/mm3 Absolute Neuts (auto) 4.8 (1.3-6.7) K/mm3 Absolute Nucleated RBC 0.000 (0.0-0.012) K/mm3 Band Neutrophils % Not Reportable Nucleated RBC % 0.0 (0.0-0.2) % Platelet Estimate Adequate (Adequate) Hypochromasia 1+ Anisocytosis 1+ Macrocytosis (NORMAL) Stomatocytes Schistocytes Rare PT (11.1-14.7) Seconds INR APTT (22.3-36.8) Seconds Methemoglobin (0-1.5) %THb Minute Volume Vent Mode Tidal Volume PEEP cmH2O Peak Inspir Pressure cmH2O Pressure Support Sodium Potassium Chloride Carbon Dioxide Anion Gap BUN Creatinine Estim Creat Clear Calc Estimated GFR Glucose POC Capillary Glucose 106 H (65-105) mg/dl Calcium Magnesium (1.6-2.3) mg/dL Total Bilirubin AST ALT Alkaline Phosphatase Troponin I (0.000-0.034) ng/mL NT-Pro-B Natriuret Pep (19.9-100) pg/mL Total Protein Albumin Urine Color Dark yellow (Yellow) Urine Appearance Cloudy H (Clear) Urine pH 6.5 (5.0-9.0) Ur Specific [place] 1.026 (1.001-1.035) Urine Protein 4+ H (Negative) mg/dL Urine Glucose (UA) Trace H (Negative) mg/dL Urine Ketones Negative (Negative) mg/dL Ur Blood (Man) 2+ H (Negative) Urine Nitrate Negative (Negative) Urine Bilirubin Negative (Negative) Urine Urobilinogen 0.2 (<2.0) mg/dL Add Ur Microanalysis Reviewed Leukocyte Esterase Rfl 1+ H (Negative) ANGIE/UL Urine RBC 21-50 H (0-2) /hpf Urine WBC 0-5 (0-3) /hpf Ur Squamous Epith Cells None seen (Few) /hpf Urine Bacteria None seen /hpf Urine Casts 11-20 Nasal MRSA (PCR) (NOT DETECTE) Hep Bs Antigen (Negative) Hep Bs Antibody Influenza A (RT-PCR) (Negative) Influenza B (RT-PCR) (Negative) RSV (RT-PCR) (Negative) SARS-CoV-2 RNA (RT-PCR) (Negative) 08/06/24 08/07/24 08/07/24 Range/Units 21:12 01:06 01:27 WBC (4.5-10.0) K/mm3 RBC (4.6-6.20) M/mm3 Hgb (14.0-18.0) g/dL Hct (42.0-52.0) % MCV (80-100) fl MCH (26-34) pg MCHC (32-36) g/dl RDW (11.5-14.5) % Plt Count (150-375) k/mm3 MPV (7.4-10.4) fl Immature Gran % (Auto) (0-0.5) % Neut % (Auto) (45.5-73.1) % Lymph % (Auto) (18.3-44.2) % Woodruff % (Auto) (2.6-8.5) % Eos % (Auto) (0-4.4) % Baso % (Auto) (0.2-1.2) % Lymph # (Auto) (0.9-3.2) K/mm3 Woodruff # (Auto) (0.1-0.6) K/mm3 Eos # (Auto) (0-0.3) K/mm3 Baso # (Auto) (0.0-0.1) K/mm3 Abs Immat Gran (auto) (0.00-0.031) K/mm3 Absolute Neuts (auto) (1.3-6.7) K/mm3 Absolute Nucleated RBC (0.0-0.012) K/mm3 Band Neutrophils % Nucleated RBC % (0.0-0.2) % Platelet Estimate (Adequate) Hypochromasia Anisocytosis Macrocytosis (NORMAL) Stomatocytes Schistocytes PT (11.1-14.7) Seconds INR APTT (22.3-36.8) Seconds Methemoglobin (0-1.5) %THb Minute Volume Vent Mode Tidal Volume PEEP cmH2O Peak Inspir Pressure cmH2O Pressure Support Sodium 139 Potassium 4.9 Chloride 94 L Carbon Dioxide 30 Anion Gap 15 H BUN 44 H D Creatinine 5.05 H Estim Creat Clear Calc 17 Estimated GFR 12 L Glucose 78 POC Capillary Glucose 63 L 113 H (65-105) mg/dl Calcium 8.6 Magnesium (1.6-2.3) mg/dL Total Bilirubin 1.3 AST 53 ALT 68 H Alkaline Phosphatase 116 Troponin I (0.000-0.034) ng/mL NT-Pro-B Natriuret Pep (19.9-100) pg/mL Total Protein 7.0 Albumin 4.0 Urine Color (Yellow) Urine Appearance (Clear) Urine pH (5.0-9.0) Ur Specific [place] (1.001-1.035) Urine Protein (Negative) mg/dL Urine Glucose (UA) (Negative) mg/dL Urine Ketones (Negative) mg/dL Ur Blood (Man) (Negative) Urine Nitrate (Negative) Urine Bilirubin (Negative) Urine Urobilinogen (<2.0) mg/dL Add Ur Microanalysis Leukocyte Esterase Rfl (Negative) ANGIE/UL Urine RBC (0-2) /hpf Urine WBC (0-3) /hpf Ur Squamous Epith Cells (Few) /hpf Urine Bacteria /hpf Urine Casts Nasal MRSA (PCR) (NOT DETECTE) Hep Bs Antigen (Negative) Hep Bs Antibody Influenza A (RT-PCR) (Negative) Influenza B (RT-PCR) (Negative) RSV (RT-PCR) (Negative) SARS-CoV-2 RNA (RT-PCR) (Negative) 08/07/24 08/07/24 08/07/24 Range/Units 05:07 06:36 07:23 WBC 7.5 (4.5-10.0) K/mm3 RBC 3.60 L (4.6-6.20) M/mm3 Hgb 12.8 L (14.0-18.0) g/dL Hct 41.7 L (42.0-52.0) % MCV 115.8 H (80-100) fl MCH 35.6 H (26-34) pg MCHC 30.7 L (32-36) g/dl RDW 17.8 H (11.5-14.5) % Plt Count 155 (150-375) k/mm3 MPV 10.8 H (7.4-10.4) fl Immature Gran % (Auto) 0.4 (0-0.5) % Neut % (Auto) 72.2 (45.5-73.1) % Lymph % (Auto) 10.7 L (18.3-44.2) % Woodruff % (Auto) 15.5 H (2.6-8.5) % Eos % (Auto) 0.4 (0-4.4) % Baso % (Auto) 0.8 (0.2-1.2) % Lymph # (Auto) 0.80 L (0.9-3.2) K/mm3 Woodruff # (Auto) 1.2 H (0.1-0.6) K/mm3 Eos # (Auto) 0.0 (0-0.3) K/mm3 Baso # (Auto) 0.1 (0.0-0.1) K/mm3 Abs Immat Gran (auto) 0.03 (0.00-0.031) K/mm3 Absolute Neuts (auto) 5.4 (1.3-6.7) K/mm3 Absolute Nucleated RBC 0.000 (0.0-0.012) K/mm3 Band Neutrophils % Not Reportable Nucleated RBC % 0.0 (0.0-0.2) % Platelet Estimate Adequate (Adequate) Hypochromasia Anisocytosis Macrocytosis 2+ (NORMAL) Stomatocytes Schistocytes None seen PT (11.1-14.7) Seconds INR APTT (22.3-36.8) Seconds Methemoglobin (0-1.5) %THb Minute Volume Vent Mode Tidal Volume PEEP cmH2O Peak Inspir Pressure cmH2O Pressure Support Sodium 136 L Potassium 4.9 Chloride 95 L Carbon Dioxide 28 Anion Gap 13 H BUN 46 H Creatinine 5.51 H Estim Creat Clear Calc 16 Estimated GFR 11 L Glucose 98 POC Capillary Glucose 82 97 (65-105) mg/dl Calcium 8.6 Magnesium (1.6-2.3) mg/dL Total Bilirubin 1.3 AST 41 ALT 58 H Alkaline Phosphatase 111 Troponin I (0.000-0.034) ng/mL NT-Pro-B Natriuret Pep (19.9-100) pg/mL Total Protein 6.0 L Albumin 3.6 Urine Color (Yellow) Urine Appearance (Clear) Urine pH (5.0-9.0) Ur Specific [place] (1.001-1.035) Urine Protein (Negative) mg/dL Urine Glucose (UA) (Negative) mg/dL Urine Ketones (Negative) mg/dL Ur Blood (Man) (Negative) Urine Nitrate (Negative) Urine Bilirubin (Negative) Urine Urobilinogen (<2.0) mg/dL Add Ur Microanalysis Leukocyte Esterase Rfl (Negative) ANGIE/UL Urine RBC (0-2) /hpf Urine WBC (0-3) /hpf Ur Squamous Epith Cells (Few) /hpf Urine Bacteria /hpf Urine Casts Nasal MRSA (PCR) (NOT DETECTE) Hep Bs Antigen (Negative) Hep Bs Antibody Influenza A (RT-PCR) (Negative) Influenza B (RT-PCR) (Negative) RSV (RT-PCR) (Negative) SARS-CoV-2 RNA (RT-PCR) (Negative) 08/07/24 08/07/24 08/07/24 Range/Units 08:40 10:59 12:38 WBC (4.5-10.0) K/mm3 RBC (4.6-6.20) M/mm3 Hgb (14.0-18.0) g/dL Hct (42.0-52.0) % MCV (80-100) fl MCH (26-34) pg MCHC (32-36) g/dl RDW (11.5-14.5) % Plt Count (150-375) k/mm3 MPV (7.4-10.4) fl Immature Gran % (Auto) (0-0.5) % Neut % (Auto) (45.5-73.1) % Lymph % (Auto) (18.3-44.2) % Woodruff % (Auto) (2.6-8.5) % Eos % (Auto) (0-4.4) % Baso % (Auto) (0.2-1.2) % Lymph # (Auto) (0.9-3.2) K/mm3 Woodruff # (Auto) (0.1-0.6) K/mm3 Eos # (Auto) (0-0.3) K/mm3 Baso # (Auto) (0.0-0.1) K/mm3 Abs Immat Gran (auto) (0.00-0.031) K/mm3 Absolute Neuts (auto) (1.3-6.7) K/mm3 Absolute Nucleated RBC (0.0-0.012) K/mm3 Band Neutrophils % Nucleated RBC % (0.0-0.2) % Platelet Estimate (Adequate) Hypochromasia Anisocytosis Macrocytosis (NORMAL) Stomatocytes Schistocytes PT (11.1-14.7) Seconds INR APTT (22.3-36.8) Seconds Methemoglobin (0-1.5) %THb Minute Volume Vent Mode Tidal Volume PEEP cmH2O Peak Inspir Pressure cmH2O Pressure Support Sodium Potassium Chloride Carbon Dioxide Anion Gap BUN Creatinine Estim Creat Clear Calc Estimated GFR Glucose POC Capillary Glucose 106 H 83 79 (65-105) mg/dl Calcium Magnesium (1.6-2.3) mg/dL Total Bilirubin AST ALT Alkaline Phosphatase Troponin I (0.000-0.034) ng/mL NT-Pro-B Natriuret Pep (19.9-100) pg/mL Total Protein Albumin Urine Color (Yellow) Urine Appearance (Clear) Urine pH (5.0-9.0) Ur Specific [place] (1.001-1.035) Urine Protein (Negative) mg/dL Urine Glucose (UA) (Negative) mg/dL Urine Ketones (Negative) mg/dL Ur Blood (Man) (Negative) Urine Nitrate (Negative) Urine Bilirubin (Negative) Urine Urobilinogen (<2.0) mg/dL Add Ur Microanalysis Leukocyte Esterase Rfl (Negative) ANGIE/UL Urine RBC (0-2) /hpf Urine WBC (0-3) /hpf Ur Squamous Epith Cells (Few) /hpf Urine Bacteria /hpf Urine Casts Nasal MRSA (PCR) (NOT DETECTE) Hep Bs Antigen (Negative) Hep Bs Antibody Influenza A (RT-PCR) (Negative) Influenza B (RT-PCR) (Negative) RSV (RT-PCR) (Negative) SARS-CoV-2 RNA (RT-PCR) (Negative) 08/07/24 08/07/24 08/07/24 Range/Units 13:35 15:21 17:08 WBC (4.5-10.0) K/mm3 RBC (4.6-6.20) M/mm3 Hgb (14.0-18.0) g/dL Hct (42.0-52.0) % MCV (80-100) fl MCH (26-34) pg MCHC (32-36) g/dl RDW (11.5-14.5) % Plt Count (150-375) k/mm3 MPV (7.4-10.4) fl Immature Gran % (Auto) (0-0.5) % Neut % (Auto) (45.5-73.1) % Lymph % (Auto) (18.3-44.2) % Woodruff % (Auto) (2.6-8.5) % Eos % (Auto) (0-4.4) % Baso % (Auto) (0.2-1.2) % Lymph # (Auto) (0.9-3.2) K/mm3 Woodruff # (Auto) (0.1-0.6) K/mm3 Eos # (Auto) (0-0.3) K/mm3 Baso # (Auto) (0.0-0.1) K/mm3 Abs Immat Gran (auto) (0.00-0.031) K/mm3 Absolute Neuts (auto) (1.3-6.7) K/mm3 Absolute Nucleated RBC (0.0-0.012) K/mm3 Band Neutrophils % Nucleated RBC % (0.0-0.2) % Platelet Estimate (Adequate) Hypochromasia Anisocytosis Macrocytosis (NORMAL) Stomatocytes Schistocytes PT (11.1-14.7) Seconds INR APTT (22.3-36.8) Seconds Methemoglobin (0-1.5) %THb Minute Volume Vent Mode Tidal Volume PEEP cmH2O Peak Inspir Pressure cmH2O Pressure Support Sodium Potassium Chloride Carbon Dioxide Anion Gap BUN Creatinine Estim Creat Clear Calc Estimated GFR Glucose POC Capillary Glucose 102 (65-105) mg/dl Calcium Magnesium (1.6-2.3) mg/dL Total Bilirubin AST ALT Alkaline Phosphatase Troponin I (0.000-0.034) ng/mL NT-Pro-B Natriuret Pep (19.9-100) pg/mL Total Protein Albumin Urine Color (Yellow) Urine Appearance (Clear) Urine pH (5.0-9.0) Ur Specific [place] (1.001-1.035) Urine Protein (Negative) mg/dL Urine Glucose (UA) (Negative) mg/dL Urine Ketones (Negative) mg/dL Ur Blood (Man) (Negative) Urine Nitrate (Negative) Urine Bilirubin (Negative) Urine Urobilinogen (<2.0) mg/dL Add Ur Microanalysis Leukocyte Esterase Rfl (Negative) ANGIE/UL Urine RBC (0-2) /hpf Urine WBC (0-3) /hpf Ur Squamous Epith Cells (Few) /hpf Urine Bacteria /hpf Urine Casts Nasal MRSA (PCR) Not detected (NOT DETECTE) Hep Bs Antigen Negative (Negative) Hep Bs Antibody Negative Influenza A (RT-PCR) (Negative) Influenza B (RT-PCR) (Negative) RSV (RT-PCR) (Negative) SARS-CoV-2 RNA (RT-PCR) (Negative) <Aidan P. Lipsmeyer, MD - Last Filed: 08/06/24 02:26> ABG Data ABG results: 08/05/24 08/05/24 08/05/24 09:44 11:24 15:42 Puncture Site Right radial Left radial Left radial ABG pH 7.199 L* 7.223 L* 7.262 L* ABG pCO2 86.6 H* 81.6 H* 69.1 H* ABG pO2 161.1 H 80.2 213.2 H ABG PO2/FiO2 Ratio 1.61 2.29 2.66 ABG HCO3 33.0 H 32.9 H 30.5 H ABG O2 Saturation 98.6 92.9 L 99.3 ABG O2 Content 19.6 18.0 19.2 ABG Base Excess 2.1 2.5 1.5 A-a Gradient 465.3 74.5 284.7 Oxyhemoglobin 97.5 91.3 98.2 Carboxyhemoglobin 1.4 1.5 1.2 Reduced Hemoglobin 1.0 6.9 H 0.4 Total Hemoglobin 14.1 14.0 13.6 O2 Delivery Device High flow therapy High flow therapy Ventilator O2 Liters/Min 40.0 45.0 Not Reportable Vent Rate 16 FiO2 100 35 80 08/05/24 19:32 Puncture Site Left radial ABG pH 7.279 L* ABG pCO2 66.6 H* ABG pO2 102.9 H ABG PO2/FiO2 Ratio 2.06 ABG HCO3 30.5 H ABG O2 Saturation 96.8 ABG O2 Content 17.8 ABG Base Excess 2.1 A-a Gradient 178.7 Oxyhemoglobin 96.1 Carboxyhemoglobin Reduced Hemoglobin Total Hemoglobin 13.1 O2 Delivery Device Ventilator O2 Liters/Min Not Reportable Vent Rate 16 FiO2 50 <Rohini Rodriguez PA-C - Last Filed: 08/05/24 19:25> 08/05/24 08/05/24 08/05/24 09:44 11:24 15:42 Puncture Site Right radial Left radial Left radial ABG pH 7.199 L* 7.223 L* 7.262 L* ABG pCO2 86.6 H* 81.6 H* 69.1 H* ABG pO2 161.1 H 80.2 213.2 H ABG PO2/FiO2 Ratio 1.61 2.29 2.66 ABG HCO3 33.0 H 32.9 H 30.5 H ABG O2 Saturation 98.6 92.9 L 99.3 ABG O2 Content 19.6 18.0 19.2 ABG Base Excess 2.1 2.5 1.5 A-a Gradient 465.3 74.5 284.7 Oxyhemoglobin 97.5 91.3 98.2 Carboxyhemoglobin 1.4 1.5 1.2 Reduced Hemoglobin 1.0 6.9 H 0.4 Total Hemoglobin 14.1 14.0 13.6 O2 Delivery Device High flow therapy High flow therapy Ventilator O2 Liters/Min 40.0 45.0 Not Reportable Vent Rate 16 FiO2 100 35 80 08/05/24 19:32 Puncture Site Left radial ABG pH 7.279 L* ABG pCO2 66.6 H* ABG pO2 102.9 H ABG PO2/FiO2 Ratio 2.06 ABG HCO3 30.5 H ABG O2 Saturation 96.8 ABG O2 Content 17.8 ABG Base Excess 2.1 A-a Gradient 178.7 Oxyhemoglobin 96.1 Carboxyhemoglobin Reduced Hemoglobin Total Hemoglobin 13.1 O2 Delivery Device Ventilator O2 Liters/Min Not Reportable Vent Rate 16 FiO2 50 <Gaudencio Arroyo MD - Last Filed: 08/07/24 18:41> 08/05/24 08/05/24 08/05/24 09:44 11:24 15:42 Puncture Site Right radial Left radial Left radial ABG pH 7.199 L* 7.223 L* 7.262 L* ABG pCO2 86.6 H* 81.6 H* 69.1 H* ABG pO2 161.1 H 80.2 213.2 H ABG PO2/FiO2 Ratio 1.61 2.29 2.66 ABG HCO3 33.0 H 32.9 H 30.5 H ABG O2 Saturation 98.6 92.9 L 99.3 ABG O2 Content 19.6 18.0 19.2 ABG Base Excess 2.1 2.5 1.5 A-a Gradient 465.3 74.5 284.7 Oxyhemoglobin 97.5 91.3 98.2 Carboxyhemoglobin 1.4 1.5 1.2 Reduced Hemoglobin 1.0 6.9 H 0.4 Total Hemoglobin 14.1 14.0 13.6 O2 Delivery Device High flow therapy High flow therapy Ventilator O2 Liters/Min 40.0 45.0 Not Reportable Vent Rate 16 FiO2 100 35 80 08/05/24 19:32 Puncture Site Left radial ABG pH 7.279 L* ABG pCO2 66.6 H* ABG pO2 102.9 H ABG PO2/FiO2 Ratio 2.06 ABG HCO3 30.5 H ABG O2 Saturation 96.8 ABG O2 Content 17.8 ABG Base Excess 2.1 A-a Gradient 178.7 Oxyhemoglobin 96.1 Carboxyhemoglobin Reduced Hemoglobin Total Hemoglobin 13.1 O2 Delivery Device Ventilator O2 Liters/Min Not Reportable Vent Rate 16 FiO2 50 <Aidan Castro MD - Last Filed: 08/06/24 02:26> Attestation: I personally reviewed and interpreted this ABG as follows: <Rohini Rodriguez PA-C - Last Filed: 08/05/24 19:25> Imaging Data Attestation: I personally reviewed and interpreted this imaging study as follows: < Rohini Rodriguez PA-C - Last Filed: 08/05/24 19:25> Radiologist's impression: ITS Impressions Chest X-Ray 08/05/24 10:42 IMPRESSION: 1. Diffuse lung disease, stable from 07/18/23, consistent with pulmonary edema versus pneumonia versus chronic lung disease. 2. Small pleural effusions, left worse than right with interval improvement on the left. 3. Cardiomegaly. Head CT 08/05/24 14:14 IMPRESSION: 1. Normal aging brain. Chest/Abdomen/Pelvis CTA 08/05/24 14:21 IMPRESSION: No pulmonary embolus. No aortic dissection. Bilateral pleural effusions (right greater than left) with adjacent compressive atelectasis on the right and adjacent consolidation on the left. Tracheostomy extends into the right mainstem bronchus, for which resizing is suggested. Hepatosplenomegaly. Significant gaseous distention of the colon with retained gastric contents. Air opacification of the colon which is also distended. Intra-abdominal ascites. Congenital persistent left-sided inferior vena cava. Moderate anasarca Cholelithiasis without cholecystitis. <Rohini Rodriguez PA-C - Last Filed: 08/05/24 19:25> ECG Data EKG #1: Attestation: I personally reviewed and interpreted this ECG as follows: <Rohini Rodriguez PA-C - Last Filed: 08/05/24 19:25> ECG completion date: 08/05/24 <NORA Velazquez Last Filed: 08/05/24 19:25> ECG completion time: 09:22 <Rohini Rodriguez PA-C - Last Filed: 08/05/24 19:25> EKG Interpretation: normal rate (75), sinus rhythm and non-specific ST changes <Rohini Rodriguez PA-C - Last Filed: 08/05/24 19:25> Critical Care Time Critical Care Time Critical Care Time: Yes <Gaudencio Arroyo MD - Last Filed: 08/07/24 18:41> Total Critical Care Time: 90 <Gaudencio Arroyo MD - Last Filed: 08/07/24 18:41> Discharge Plan Discharge Clinical Impression: Acute respiratory failure with hypoxia and hypercapnia, Pleural effusion, End-stage renal disease on hemodialysis, Tracheostomy dependent, Elevated troponin <Rohini Rodriguez PA-C - Last Filed: 08/05/24 19:25> Patient Disposition: Acute Care Hospital <NORA Velazquez Last Filed: 08/05/24 19:25> Condition: Critical <Rohini Rodriguez PA-C - Last Filed: 08/05/24 19:25>
[2024-08-05 09:26] LABS: Basophils Absolute Auto 0.1 K/mm3 (0.0-0.1); Basophils Percent Auto 0.9 % (0.2-1.2); Eosinophils Absolute Auto 0.1 K/mm3 (0-0.3); Eosinophils Percent Auto 1.8 % (0-4.4); Hemoglobin 13.8 g/dL (14.0-18.0); Immature Granulocyte Absolute 0.06 K/mm3 (0.00-0.031); Immature Granulocyte Percent A 1.1 % (0-0.5); Lymphocytes Absolute Auto 0.63 K/mm3 (0.9-3.2); Lymphocytes Percent Auto 11.4 % (18.3-44.2); Mean Corpuscular HGB Conc 30.7 g/dl (32-36); Mean Corpuscular Hemoglobin 35.8 pg (26-34); Mean Corpuscular Volume 116.9 fl (80-100); Mean Platelet Volume 11.3 fl (7.4-10.4); Monocytes Absolute Auto 0.8 K/mm3 (0.1-0.6); Monocytes Percent Auto 13.9 % (2.6-8.5); Neutrophils Absolute Auto 3.9 K/mm3 (1.3-6.7); Neutrophils Percent Auto 70.9 % (45.5-73.1); Nucleated Red Blood Cells Perc 0.9 % (0.0-0.2); Platelet Count Result 149 k/mm3 (150-375); Red Blood Count 3.85 M/mm3 (4.6-6.20); Red Cell Distribution Width 17.6 % (11.5-14.5); White Blood Count 5.5 K/mm3 (4.5-10.0)
[2024-08-05 09:35] LABS: Hypochromasia 1+; Macrocytosis 1+ (NORMAL); Platelet Estimate Slightly Decreased (Adequate); Schistocytes None Seen
[2024-08-05 09:36] LABS: Stomatocytes 1+
[2024-08-05 09:44] LABS: INR 1.2; Partial Thromboplastin Time 34.4 Seconds (22.3-36.8); Prothrombin Time 15.4 Seconds (11.1-14.7)
[2024-08-05 09:46] LABS: Alanine Aminotransferase 108 U/L (6-50); Albumin Level 4.6 g/dL (3.5-5.1); Alkaline Phosphatase 159 U/L (38-126); Anion Gap 15 mmol/L (4-12); Aspartate Amino Transferase 100 U/L (17-59); Blood Urea Nitrogen 34 mg/dL (9-20); Calcium 8.6 mg/dL (8.4-10.2); Carbon Dioxide 34 mmol/L (22-30); Chloride 91 mmol/L (98-107); Estimated CRCL calculation 22 ml/min; Estimated Glomerular Filt Rate 16; Glucose 122 mg/dL (65-110); Magnesium 2.3 mg/dL (1.6-2.3); Potassium 4.2 mmol/L (3.4-5.0); Sodium 140 mmol/L (137-145)
[2024-08-05 09:54] LABS: Alveolar/Arterial O2 Gradient 465.3 mmHg; Base Excess ABG 2.1 mEq/l (+/-2.0); Carboxyhemoglobin 1.4 % THb (0-2.0); Fractional Inspired Oxygen 100 %; Methemoglobin ABG 0.1 %THb (0-1.5); Oxygen Content ABG 19.6 %vol (16.0-22.0); Oxygen Saturation ABG 98.6 % (95.0-100.0); Oxyhemoglobin 97.5 % THb (90.0-100.0); PO2 ABG 161.1 mmHg (80.0-100.0); PO2 FiO2 Ratio Arterial Blood 1.61 %; Total Hemoglobin 14.1 g/dL (12.0-18.0)
[2024-08-05 09:58] LABS: pH ABG 7.199 (7.350-7.450)
[2024-08-05 09:59] LABS: Modified Allen's Test Pass; PCO2 ABG 86.6 mmHg (35.0-45.0); Site Drawn RIGHT RADIAL
[2024-08-05 10:00] LABS: Device HIGH FLOW THERAPY
[2024-08-05 10:02] LABS: Influenza A QL RT-PCR Negative (Negative); Influenza B QL RT-PCR Negative (Negative); RSV RNA, RT-PCR Negative (Negative); SARS-CoV-2 RNA PCR Negative (Negative)
[2024-08-05 10:16] LABS: NT Pro B Type Natriuretic Pept > 30000 pg/mL (19.9-100)
[2024-08-05 10:18] LABS: Troponin I 0.138 ng/mL (0.000-0.034)
--- OUTSIDE RECORDS SUMMARY | 2024-08-05 10:25 | XMS_ITS | Encounter Summary ---
Author Organization [facility] Address [address] [place] [address] Phone Care Team Providers Care Website Admin Name Role Phone Kenzie Cabrera MD Primary Care Provider [phone] Reason for Visit * Reason Comments Med Refill Encounter Details Date Type Department Care Team (Late st Contact Info) Description 05/29/2019 Refill [facility] [address] [place] [address] [address] [place] [address] Isaiah Davis MD [address] [address] Social History Tobacco Use Types Packs/Day Years Used Date Smoking Tobacco: Every Day Smokeless Tobacco: Never Alcohol Use Standard Drinks/Week Comments No 0 (1 standard drink = 0.6 oz pur e alcohol) AUDIT-C Answer Date Recorded Frequency of Alcohol Consumption Never 09/02/2018 Average Number of Drinks Not on file 019 Frequency of Binge Drinking Not on file 07/2018 Sex and Gender Information Value Date Recorded Sex Assigned at Not on file Gender Identity Not on file Sexual Orientation Not on file documented as of this encounter Plan of Treatment Not on file documented as of this encounter Visit Diagnoses Not on filedocumented in this encounter Care Teams Website Admin Relationship Specialty Start Date End Date Kenzie Cabrera MD [address] [place] [phone] PCP - General 08/10/19 documented as of this encounter
--- OUTSIDE RECORDS SUMMARY | 2024-08-05 10:25 | XMS_ITS | Encounter Summary ---
Author Organization [facility] Address [address] [place] [address] Phone Care Team Providers Care Legal Specialist Name Role Phone Kenzie Cabrera MD Primary Care Provider [phone] Reason for Visit * Reason Comments Med Refill Encounter Details Date Type Department Care Team (Late st Contact Info) Description 07/19/2020 Refill [facility] [address] [place] [address] [address] [place] [address] Isaiah Davis MD [address] [address] Social History Tobacco Use Types Packs/Day Years [...] on filedocumented in this encounter Care Teams Legal Specialist Relationship Specialty Start Date End Date Kenzie Cabrera MD [address] [place] [phone] PCP - General 08/10/19 documented as of this encounter
--- OUTSIDE RECORDS SUMMARY | 2024-08-05 10:25 | XMS_ITS | Encounter Summary ---
Author Organization [facility] Address [address] [place] [address] Phone Care Team Providers Care Patch Press Operator Name Role Phone Kenzie Cabrera MD Primary Care Provider Reason for Visit * Reason Comments Med Refill Encounter Details Date Type Department Care Team (Late st Contact Info) Description 03/10/2021 Refill [facility] [address] [place] [address] [address] [place] [address] Isaiah Davis MD [address] [address] Social History Tobacco Use Types Packs/Day Years [...] on filedocumented in this encounter Care Teams Patch Press Operator Relationship Specialty Start Date End Date Kenzie Cabrera MD [address] [place] [phone] PCP - General 08/10/19 documented as of this encounter
--- OUTSIDE RECORDS SUMMARY | 2024-08-05 10:25 | XMS_ITS | Patient Health Summary ---
Author Organization [facility] Address [address] [facility] [place] [address] Care Team Providers Care Winder Helper Name Role Phone Osmar Manley MD Primary Care Provider [phone] Note from [facility],non-owned Affiliates and Associated Physician Practices is amultiple site organization consisting of ambulatory clinics and hospital sitesin [place], [place], [place] and [place]. This disclosure is being madepursuant to the Care Everywhere program and may not contain all information available regarding this patient. Last updated 18.[facility] Social History Tobacco Use Types Packs/Day Years Used Date Smoking Tobacco: Never Assessed Sex and Gender Information Value Date Recorded Sex Assigned at Not on file Gender Identity Not on file Sexual Orientation Not on file Care Teams Winder Helper Relationship Specialty Start Date End Date Osmar Manley MD [address] [place] [address] PCP - General 07/05/22
--- OUTSIDE RECORDS SUMMARY | 2024-08-05 10:25 | XMS_ITS | Encounter Summary ---
Author Organization [facility] Address [address] [place] [address] Phone Care Team Providers Care Vasc Tech Name Role Phone Kenzie Cabrera MD Primary Care Provider [phone] Reason for Visit * Reason Comments Med Refill Encounter Details Date Type Department Care Team (Late st Contact Info) Description 08/12/2020 Refill [facility] [address] [place] [address] [address] [place] [address] Isaiah Davis MD [address] [address] Social History Tobacco Use Types Packs/Day Years [...] on filedocumented in this encounter Care Teams Vasc Tech Relationship Specialty Start Date End Date Kenzie Cabrera MD [address] [place] [phone] PCP - General 08/10/19 documented as of this encounter
--- OUTSIDE RECORDS SUMMARY | 2024-08-05 10:25 | XMS_ITS | Encounter Summary ---
Author Organization [facility] Address [address] [place] [address] Phone Care Team Providers Care Content Designer Name Role Phone Kenzie Cabrera MD Primary Care Provider Reason for Visit * Reason Comments Med Refill Encounter Details Date Type Department Care Team (Late st Contact Info) Description 10/25/2019 Refill [facility] [address] [place] [address] [address] [place] [address] Isaiah Davis MD [address] [address] Social History Tobacco Use Types Packs/Day Years [...] on filedocumented in this encounter Care Teams Content Designer Relationship Specialty Start Date End Date Kenzie Cabrera MD [address] [place] [phone] PCP - General 08/10/19 documented as of this encounter
--- OUTSIDE RECORDS SUMMARY | 2024-08-05 10:25 | XMS_ITS | Referral Summary ---
Author Organization [facility] Address [address] [facility] [place] [address] Care Team Providers Care Stoneworking Belt Sander Name Role Phone Osmar Manley MD Primary Care Provider [phone] Source Comments [facility],non-owned Affiliates and Associated Physician Practices is amultac[facility] healthcare systeme site organization consisting of ambulatory clinics and hospital sitesin [place], [place], [place] and [place]. This disclosure is being madepursuant to the Care Everywhere program and may not contain all information available regarding this patient. Last updated 18.[facility] Social History Tobacco Use Types Packs/Day Years Used Date Smoking Tobacco: Never Assessed Sex and Gender Information Value Date Recorded Sex Assigned at Not on file Gender Identity Not on file Sexual Orientation Not on file Plan of Treatment Not on file Care Teams Stoneworking Belt Sander Relationship Specialty Start Date End Date Osmar Manley MD [address] [place] [phone] PCP - General 07/05/22
--- OUTSIDE RECORDS SUMMARY | 2024-08-05 10:25 | XMS_ITS | Encounter Summary ---
Author Organization [facility] Address [address] [place] [address] Phone Care Team Providers Care Cutter Operator Tile Name Role Phone Kenzie Cabrera MD Primary Care Provider Reason for Visit * Reason Comments Med Refill Encounter Details Date Type Department Care Team (Late st Contact Info) Description 07/18/2020 Refill [facility] [address] [place] [address] [address] [place] [address] Isaiah Davis MD [address] [address] Social History Tobacco Use Types Packs/Day Years [...] on filedocumented in this encounter Care Teams Cutter Operator Tile Relationship Specialty Start Date End Date Kenzie Cabrera MD [address] [place] [phone] PCP - General 08/10/19 documented as of this encounter
--- OUTSIDE RECORDS SUMMARY | 2024-08-05 10:25 | XMS_ITS | Encounter Summary ---
Author Organization [facility] Address [address] [place] [address] Phone Care Team Providers Care Chaplain Name Role Phone Kenzie Cabrera MD Primary Care Provider [phone] Reason for Visit * Reason Comments Med Refill Encounter Details Date Type Department Care Team (Late st Contact Info) Description 10/20/2019 Refill [facility] [address] [place] [address] [address] [place] [address] Isaiah Davis MD [address] [address] Social History Tobacco Use Types Packs/Day Years [...] on filedocumented in this encounter Care Teams Chaplain Relationship Specialty Start Date End Date Kenzie Cabrera MD [address] [place] [phone] PCP - General 08/10/19 documented as of this encounter
--- OUTSIDE RECORDS SUMMARY | 2024-08-05 10:25 | XMS_ITS | Encounter Summary ---
Author Organization [facility] Address [address] [place] [address] Care Team Providers Care Signs And Displays Sales Representative Name Role Phone Bronwyn Guardado Unavailable [phone] Kenny Pedro MD Unavailable [phone] Ricardo Pritchard MD Unavailable [phone] Naila Teague Primary Care Provider + Telly Freedman MD Unavailable + Danish Leo MD Unavailable [phone] Braden Griffin MD Unavailable [phone] Isaiah Davis MD Unavailable [phone] Aurelio Stovall MD Unavailable [phone] Parvez Hemphill MD Unavailable [phone] Nel Lamb RN Unavailable Encounter Details Date Type Department Care Team (Late st Contact Info) Description 01/20[facility]24 [facility] [address] [facility] [address] [place] [address] Olaf Piaz MD [address] [facility] [address] [place] [address] Social History Tobacco Use Types Packs/Day Years Used Date Smoking Tobacco: Former Cigarettes Q uit: 2015 Passive Smoke Exposure: Current Smokeless Tobacco: Never Social Connection and Isolat ion Panel [NHANES] Answer Date Recorded In a typical week, how many times do you talk on the phone with family, friends, or neighbors? More than three times a week 06/07/2022 How often do you get togethe r with friends or relatives? More than three times a week 06/07/2022 How often do you attend chur ch or quaker services? Never 06/07/2022 Do you belong to any clubs o r organizations such as jehovah's witness groups, unions, fraternal or athletic groups, or school groups? No 06/07/2022 How often do you attend meet ings of the clubs or organizations you belong to? Never 06/07/2022 Are you , , di vorced, , never , or living with a partner? 06/07/2022 AUDIT-C Answer Date Recorded Q1: How often do you have a drink containing alcohol? Never 01/13/2024 Q2: How many drinks containi ng alcohol do you have on a typical day when you are drinking? Patient does not drink Q3: How often do you have si x or more drinks on one occasion? Never 01/13/2024 Overall Financial Resource Strain (CARDIA) Answe r Date Recorded How hard is it for you to pa y for the very basics like food, housing, medical care, and heating? Not very hard 06/07/2022 PRAPARE - Transportation Answer Date Re corded In the past 12 months, has l ack of transportation kept you from medical appointments or from getting medications? No 10/2022 In the past 12 months, has l ack of transportation kept you from meetings, work, or from getting things needed for daily living? No 06/07/2022 Personal Safety Answer Date Recorded Have you ever been in or are you currently in a harmful physical or emotional relationship or is someone making you feel afraid or unsafe? Denies 01/13/2024 Sex and Gender Information Value Date Recorded Sex Assigned at Not on file Legal Sex Male 12:38 AM CDT Gender Identity Not on file Sexual Orientation Not on file documented as of this encounter Plan of Treatment Not on file documented as of this encounter Visit Diagnoses Not on filedocumented in this encounter Care Teams Signs And Displays Sales Representative Relationship Specialty Start Date End Date Naila Teague PA [address] [facility] [address] [place] [address] PCP - General Physician Forest Nursery Supervisor 03/15/22 Bronwyn Guardado Au.D. Tobacco Classer Audiology 11/11/17 Kenny Pedro MD [address] [facility] [address] [place] [address] Radiation Oncologist Radiation Oncology 12/23/17 Ricardo Pritchard MD [address] [facility] [address] [place] [address] Medical Oncologist/Materials Recycler Medical Oncology 12/23/17 Telly Freedman MD [address] [place] [address] Referring Physician Family Medicine 06/17/22 Danish Leo MD [address] [place] [address] Consulting Physician Otolaryngology 10/12/22 Braden Griffin MD [address] [id number] Consulting Physician Cardiology 01/13/24 Isaiah Davis MD 5[address] [facility] 1 [place] [address] Consulting Physician Nephrology 01/13/24 Aurelio Stovall MD [address] [address] Consulting Physician Pulmonary Disease 01/13/24 Parvez Hemphill MD [facility] [address] [place], [place] [id number] Referring Physician Otolaryngology 01/13/24 Nel Lamb, RN 45[address] [facility] [address] [place] [address] Boot Liner Maker 04/16/24 documented as of this encounter
--- OUTSIDE RECORDS SUMMARY | 2024-08-05 10:25 | XMS_ITS | Clinical Summary ---
Author Organization [facility] Address [address] [place] [address] Phone Care Team Providers Care Doctor Of Nurse Anesthesia Practice Name Role Phone Kenzie Cabrera MD Primary Care Provider Allergies No known active allergies Medications Medication Sig Dispensed Refills Start Date End Date Status amLODIPine (NORVASC) 10 MG tablet One daily 11 04/14/2018 Active losartan (COZAAR) 100 MG tablet 1 tab daily 0 09/05/2017 Active glimepiride (AMARYL) 2 MG tablet one tab daily 0 09/05/2017 Active pioglitazone (ACTOS) 30 MG tablet daily Active sodium polystyrene (KAYEXALATE) 15 GM/60ML suspension Take 30 g by mouth 1 (one) time 30g on W for a 30 day supply Active levothyroxine sodium (TIROSINT) 137 MCG capsule Take 137 mcg by mouth 1 (one) time each day Active pravastatin (PRAVACHOL) 40 MG tablet Take 40 mg by mouth 1 (one) time each day Active carvedilol (COREG) 25 MG tablet Take 25 mg by mouth 2 (two) times a day with meals Active calcitRIOL (ROCALTROL) 1 MCG/ML solution Take 0.25 mcg by mouth 1 (one) time each day Active Active Problems Problem Noted Date Diagnosed Date Chronic kidney disease, stage 4 (severe) 018 Secondary hyperparathyroidism of renal origin Type 2 diabetes mellitus wit h other diabetic kidney complication 10/02/2017 Hypertensive chronic kidney disease with stage 1 through stage 4 chronic kidney disease, or unspecified chronic kidney disease 10/02/2017 Resolved Problems Problem Noted Date Diagnosed Date Resolved Date Hyperkalemia 02/12/2022 03/04/2023 Acute osteomyelitis of foot 10/06/2018 03/03/2019 Chronic obstructive pulmonary disease 10/06/2018 03/03/2019 Hyperlipidemia 10/06/2018 03/03/2019 Hypertensive disorder 10/06/20182018 Anemia 01/13/2018 10/06/2018 Family History Medical History Relation Comments Diabetes mellitus Mother Heart disease Mother Relation Status Comments Mother Social History Tobacco Use Types Packs/Day Years Used Date Smoking Tobacco: Every Day Smokeless Tobacco: Never Tobacco Cessation:Ready to Q uit: Not Asked; Counseling Given: Not Answered Alcohol Use Standard Drinks/Week Comments No 0 [...] on file Sexual Orientation Not on file Last Filed Vital Signs Vital Sign Reading Time Taken Comments Blood Pressure 126/80 09/09/2022 12:52 PM CDT Pulse 86 03/13/2021 2:39 PM CDT Temperature - - Respiratory Rate - - Oxygen Saturation - - Inhaled Oxygen Concentration - - Weight 93 kg (205 lb) 09/09/2022 12:52 PM CDT Height 172.7 cm (5' 8 ) 06/11/2023 3:24 PM PUTTIER Body Mass Index 31.17 09/09/2022 12:52 PM CDT Plan of Treatment Health Maintenance Due Date Last Done Comments Diabetic Foot Exam 01/06/1974 Ophthalmology Exam 01/06/1974 Pneumococcal PPSV23 Highest Risk Adult (1 of 3 - PCV13) 01/06/1983 Influenza Vaccine (#1) 2024 02/18/2018 Care Teams Doctor Of Nurse Anesthesia Practice Relationship Specialty Start Date End Date Kenzie Cabrera MD [facility] [place] [address] PCP - General 08/10/19
--- OUTSIDE RECORDS SUMMARY | 2024-08-05 10:25 | XMS_ITS | Encounter Summary ---
Author Organization [facility] Address [address] [place] [address] Phone Care Team Providers Care Wet Suit Gluer Name Role Phone Kenzie Cabrera MD Primary Care Provider [phone] Reason for Visit * Reason Comments Med Refill Encounter Details Date Type Department Care Team (Late st Contact Info) Description 03/13/2020 Refill [facility] [address] [place] [address] [address] [place] [address] Isaiah Davis MD [address] [address] Social History Tobacco Use Types Packs/Day Years [...] on filedocumented in this encounter Care Teams Wet Suit Gluer Relationship Specialty Start Date End Date Kenzie Cabrera MD [address] [place] [phone] PCP - General 08/10/19 documented as of this encounter
--- OUTSIDE RECORDS SUMMARY | 2024-08-05 10:25 | XMS_ITS | Encounter Summary ---
Author Organization [facility] Address [address] [place] [address] Phone Care Team Providers Care Yoker Name Role Phone Kenzie Cabrera MD Primary Care Provider Reason for Visit * Reason Comments Med Refill Encounter Details Date Type Department Care Team (Late st Contact Info) Description 12/02/2020 Refill [facility] [address] [place] [address] [address] [place] [address] Isaiah Davis MD [address] [address] Social History Tobacco Use Types Packs/Day Years [...] on filedocumented in this encounter Care Teams Yoker Relationship Specialty Start Date End Date Kenzie Cabrera MD [address] [place] [address] PCP - General 08/10/19 documented as of this encounter
--- OUTSIDE RECORDS SUMMARY | 2024-08-05 10:25 | XMS_ITS | Encounter Summary ---
Author Organization [facility] Address [facility] [place] [address] Care Team Providers Care Bleach Liquor Maker Name Role Phone Theodore Martin MD Primary Care Provider [phone] Vince Green MD Unavailable Aleksandar Link MD Primary Care Provider Unavailable Theodore Martin MD Primary Care Provider [phone] Encounter Details Date Type Department Care Team (Late st Contact Info) Description 07/24/2016 Abstract [facility] AT [address] [address] Reese Azar MA Social History Tobacco Use Types Packs/Day Years Used Date Smoking Tobacco: Every Day Cigarettes 1 30 Smokeless Tobacco: Never Alcohol Use Standard Drinks/Week Comments No 0 (1 standard drink = 0.6 oz pur e alcohol) Sex and Gender Information Value Date Recorded Sex Assigned at Not on file Legal Sex Male 11:01 AM PUBLIC HEALTH TRAINING ASSISTANT Gender Identity Not on file Sexual Orientation Not on file documented as of this encounter Plan of Treatment Not on file documented as of this encounter Procedures Procedure Name Priority Date/Time Associated Diagnosis Comments FOLATE (OUTSIDE LAB) Routine 05/09/2016 CBC (OUTSIDE LAB) Routine 05/09/2016 VITAMIN B-12 Routine 05/09/2016 COMPREHENSIVE METABOLIC PANEL Routine 05/09/2016 LIPID PANEL Routine 05/09/2016 HEMOGLOBIN, GLYCOSYLATED Routine 05/09/2016 THYROXINE, FREE (FT4) Routine 05/09/2016 THYROID STIM HORMONE TSH Routine 05/09/2016 documented in this encounter Results * FOLATE (OUTSIDE LAB) (05/09/2016) FOLATE 12.6 05/09/2016 [facility] Abstract LAB-OUTSIDE/ABSTRACTED Final Result * VITAMIN B-12 (05/09/2016) VITAMIN B12 S/P/B 314 05/09/2016 [facility] Abstract LABORATORY Final Result * HEMOGLOBIN, GLYCOSYLATED (05/09/2016) HGB A1C 5.6 05/09/2016 us [facility] Abstract LABORATORY Final Result * THYROID STIM HORMONE, TSH (05/09/2016) TSH 2.9 05/09/2016 us [facility] Abstract LABORATORY Final Result * THYROXINE, FREE (FT4) (05/09/2016) FREE T4 1.05 05/09/2016 us [facility] Abstract LABORATORY Final Result * LIPID PANEL (05/09/2016) CHOLESTEROL 125 HDL 40 TRIGLYCERIDES 142 LDL (CALCULATED) 57 05/09/2016 us [facility] Abstract LABORATORY Final Result * COMPREHENSIVE METABOLIC PANEL (05/09/2016) SODIUM S/P/B 147 POTASSIUM S/P/B 3.5 CO2 32 CHLORIDE S/P/B 101 GLUCOSE 90 CALCIUM S/P/B 9.7 BUN 17 CREATININE S/P/B 1.56 EGFR NON-AFR. AMER. 47 ALKALINE PHOSPHATASE S/P/B 47 ALT 25 AST 18 BILIRUBIN TOTAL S/P/B 0.6 ALBUMIN S/P/B 4.7 3.5 - 5.0 TOTAL PROTEIN S/P/B 7.6 GLOBULIN 2.9 05/09/2016 us [facility] Abstract LABORATORY Final Result * CBC (OUTSIDE LAB) (05/09/2016) WBC 9.0 HGB 14.8 HCT 44 PLT 197 05/09/2016 us Doc [facility] Abstract LAB-OUTSIDE/ABSTRACTED Edite d Result - Final documented in this encounter Visit Diagnoses Not on filedocumented in this encounter Care Teams Bleach Liquor Maker Relationship Specialty Start Date End Date Theodore Martin MD [address] [address] PCP - General FAMILY PRACTICE 11/01/15 08/12/16 Aleksandar Link MD PCP - General 08/13/16 01/13/17 Theodore Martin MD [address] [address] PCP - General 01/14/17 Vince Green MD [address] [place] [address] [place] Dialysis Equipment Technician CARDIOVASCULAR DISEASE 11/01/15 documented as of this encounter
--- OUTSIDE RECORDS SUMMARY | 2024-08-05 10:25 | XMS_ITS | Encounter Summary ---
Author Organization [facility] Address [address] [place] [address] Phone Care Team Providers Care Environmental Services Floor Tech Name Role Phone Theodore Martin MD Primary Care Provider [phone] Bronwyn Guardado Unavailable [phone] Kenny Pedro MD Unavailable [phone] Ricardo Pritchard MD Unavailable [phone] Kenzie Cabrera MD Primary Care Provider [phone] Naila Teague Primary Care Provider + Telly Freedman MD Unavailable + Danish Leo MD Unavailable [phone] Braden Griffin MD Unavailable [phone] Isaiah Davis MD Unavailable [phone] Aurelio Stovall MD Unavailable [phone] Parvez Hemphill MD Unavailable [phone] Nel Lamb RN Unavailable Encounter Details Date Type Department Care Team (Late st Contact Info) Description 03/18/2017 Orders Only [facility] ProviderHossein MD [address] [place] [address] Social History Tobacco Use Types Packs/Day Years Used Date Smoking Tobacco: Former Sex and Gender Information Value Date Recorded Sex Assigned at Not on file Legal Sex Male 12:38 AM CDT Gender Identity Not on file Sexual Orientation Not on file documented as of this encounter Plan of Treatment Not on file documented as of this encounter Procedures Procedure Name Priority Date/Time Associated Diagnosis Comments GENERAL RADIOLOGY REPORT 03/18/2017 documented in this encounter Results * GENERAL RADIOLOGY REPORT (03/18/2017) Anatomical Region Laterality Modality Radiographic Lilibeth ging Narrative 03/18/2017 Ordered by an unspecified provider. Historical Provider MD POPE XR PROCEDURES Final R esult documented in this encounter Visit Diagnoses Not on filedocumented in this encounter Additional Health Concerns Infection Onset Date Last Indicated Resolved Time COVID: Suspected 06/06/2022 06/06/2022 06/07/2022 12:48 AM VEST BUSHELER documented as of this encounter Care Teams Environmental Services Floor Tech Relationship Specialty Start Date End Date Theodore Martin MD PCP - General 09/09/16 09/18/20 Kenzie Cabrera MD [address] [place] [address] PCP - General Family Medicine 09/19/20 03/14/22 Naila Teague PA [address] [place] [address] PCP - General Physician Food Equipment Service Technician 03/15/22 Bronwyn Guardado Au.D. Farm Crew Member Audiology 11/11/17 Kenny Pedro MD [address] [facility] [address] [place] [address] Radiation Oncologist Radiation Oncology 12/23/17 Ricardo Pritchard MD 49[address] [facility] [address] [place] [address] Medical Oncologist/Corporation Pilot Medical Oncology 12/23/17 Telly Freedman MD [address] [place] [address] Referring Physician Family Medicine 06/17/22 Danish Leo MD [address] [place] [address] Consulting Physician Otolaryngology 10/12/22 Braden Griffin MD [address] [id number] Consulting Physician Cardiology 01/13/24 Isaiah Davis MD 5[address] [facility] 1 [place] [address] Consulting Physician Nephrology 01/13/24 Aurelio Stovall MD [facility] [address] Consulting Physician Pulmonary Disease 01/13/24 Parvez Hemphill MD [address] [place] [address] Referring Physician Otolaryngology 01/13/24 Nel Lamb RN [address] [place] [address] [place] [address] Branch Service Leader 04/16/24 documented as of this encounter
--- OUTSIDE RECORDS SUMMARY | 2024-08-05 10:26 | XMS_ITS | Encounter Summary ---
Author Organization [facility] Address [address] [place] [address] Phone Care Team Providers Care Machine Ii Engraver Name Role Phone Kenzie Cabrera MD Primary Care Provider Reason for Visit * Reason Comments Med Refill Encounter Details Date Type Department Care Team (Late st Contact Info) Description 01/31/2019 Refill [facility] [address] [facility] 1 [place] [address] Iasiah Davis MD [address] [address] Social History Tobacco Use Types Packs/Day Years [...] on filedocumented in this encounter Care Teams Machine Ii Engraver Relationship Specialty Start Date End Date Kenzie Cabrera MD [address] [place] [address] PCP - General 08/10/19 documented as of this encounter
--- OUTSIDE RECORDS SUMMARY | 2024-08-05 10:26 | XMS_ITS | Encounter Summary ---
Author Organization [facility] Address [address] [place] [address] Care Team Providers Care Mortgage Processor Name Role Phone Bronwyn Guardado Unavailable [phone] Kenny Pedro MD Unavailable [phone] Ricardo Pritchard MD Unavailable [phone] Naila Teague Primary Care Provider + Telly Freedman MD Unavailable + Danish Leo MD Unavailable [phone] Braden Griffin MD Unavailable [phone] Isaiah Davis MD Unavailable [phone] Aurelio Stovall MD Unavailable [phone] Parvez Hemphill MD Unavailable [phone] Nel Lamb RN Unavailable Encounter Details Date Type Department Care Team (Late st Contact Info) Description 07/28/2023 [facility] [address] [facility] [address] [place] [address] Olaf Paiz MD [address] [facility] [address] [place] [address] Social History Tobacco Use Types Packs/Day Years [...] often do you attend chur ch or yazidi services? Never 06/07/2022 Do you belong to any clubs o r organizations such as zoroastrian groups, unions, fraternal or athletic groups, or school groups? No 06/07/2022 How often do you attend meet ings of the clubs or organizations you belong to? Never 06/07/2022 Are you , , di vorced, , never , or living with a partner? 06/07/2022 AUDIT-C Answer Date Recorded Q1: How often do you have a drink containing alcohol? Never 11/19/2022 Q2: How many drinks containi ng alcohol do you have on a typical day when you are drinking? Patient does not drink Q3: How often do you have si x or more drinks on one occasion? Never 11/19/2022 Overall Financial Resource Strain (CARDIA) Answe r [...] making you feel afraid or unsafe? Denies 07/25/2023 Sex and Gender Information Value Date Recorded Sex Assigned at Not on file Legal Sex Male 12:38 AM CDT Gender Identity Not on file Sexual Orientation Not on file documented as of this encounter Plan of Treatment Not on file documented as of this encounter Visit Diagnoses Not on filedocumented in this encounter Care Teams Mortgage Processor Relationship Specialty Start Date End Date Naila Teague PA [address] [facility] [address] [place] [address] PCP - General Physician Summer Nanny 03/15/22 Bronwyn Guardado Au.D. Animal Rides Manager Audiology 11/11/17 Kenny Pedro MD [address] [facility] [address] [place] [address] Radiation Oncologist Radiation Oncology 12/23/17 Ricardo Pritchard MD [address] [facility] [address] [place] [address] Medical Oncologist/Airline Transport Pilot Medical Oncology 12/23/17 Telly Freedman MD [address] [place] [address] Referring Physician Family Medicine 06/17/22 Danish Leo MD [address] [place] [address] Consulting Physician Otolaryngology 10/12/22 Braden Griffin MD [address] [id number] Consulting Physician Cardiology 01/13/24 Isaiah Davis MD 5[address] [facility] 1 [place] [address] Consulting Physician Nephrology 01/13/24 Aurelio Stovall MD [address] [address] Consulting Physician Pulmonary Disease 01/13/24 Parvez Hemphill MD [facility] [address] [place], [place] [address] Referring Physician Otolaryngology 01/13/24 Nel Lamb, RN 45[address] [facility] [address] [place] [address] Tile Mechanic 04/16/24 documented as of this encounter
--- OUTSIDE RECORDS SUMMARY | 2024-08-05 10:26 | XMS_ITS | Referral Summary ---
Author Organization [facility] Address [address] [place] [address] Care Team Providers Care Proposal Writer Name Role Phone Bronwyn Guardado Unavailable [phone] Kenny Pedro MD Unavailable [phone] Ricardo Pritchard MD Unavailable [phone] Naila Teague Primary Care Provider + Telly Freedman MD Unavailable + Danish Leo MD Unavailable [phone] Braden Griffin MD Unavailable [phone] Isaiah Davis MD Unavailable [phone] Aurelio Stovall MD Unavailable [phone] Parvez Hemphill MD Unavailable [phone] Nel Lmab RN Unavailable Encounters Date Type Department Care Team Description 05/31/2024 8:49 AM TECHNICAL ASSISTANT - 05/31/2024 11:59 PM TECHNICAL ASSISTANT Hospital Encounter [facility] at [address] [address] ESRD (end stage renal disease) on dialysis (HCC) (Primary Dx) Discharge Disposition: Discharge to home or self care 05/14/2024 Telephone [facility] at [facility] [address] [place] [address] Olaf Paiz MD from Last 3 Months Allergies No known active allergies Medications pravastatin (PRAVACHOL) 40 mg tabletIndicati ons:hyperlipid emia Take 1 tablet (40 mg total) by mouth nightly 8 Active amLODIPine (NORVASC) 10 mg tablet Administer per tube 1 tablet (10 mg total) daily 30 tablet 3 Active Additional Information Patient taking differently:10 mgoralDaily,Indications: hypertension, Informant: Self, Reported on 01/13/2024 carvediloL (COREG) 25 mg tablet Administer per tube 0.5 tablets (12.5 mg total) 2 (two) times a day with meals Hold for heart rate less than 55 3 Active pioglitazone (ACTOS) 30 mg tabletIndicati ons:type 2 diabetes mellitus Take 1 tablet (30 mg total) by mouth every morning 3 Active losartan (COZAAR) 100 mg tabletIndicati ons:hypertensi on Take 1 tablet (100 mg total) by mouth daily 7 Active OneTouch Verio test strips strip 3 Active calcitRIOL (ROCALTROL) 0.25 mcg capsuleIndicat ions:hypocalce jenny Take 1 capsule (0.25 mcg total) by mouth every morning 3 Active levothyroxine (SYNTHROID) 112 mcg tablet Take 1 tablet (112 mcg total) by mouth every morning 3 Active miscellaneous medical supply miscIndication s:Tracheostomy 3 L/L by intratracheal route continuous Active acetaminophen (TYLENOL) 325 mg tablet Take 2 tablets (650 mg total) by mouth every 6 (six) hours 90 tablet 3 3 Active calcium acetate,phosph at bind, (PHOSLO) 667 mg capsule Take 1 capsule (667 mg total) by mouth 3 (three) times a day with meals 4 Active amoxicillin-cl avulanate (AUGMENTIN) 875-125 mg per tablet Take 1 tablet by mouth 2 (two) times a day Cellulitis leg- he will done prior to procedure Active sevelamer (RENVELA) 800 mg tablet Take 1 tablet (800 mg total) by mouth 3 (three) times a day with meals Active Active Problems Problem Noted Date Diagnosed Date Abscess 03/02/2024 Abscess of right arm 02/26/2024 Infection of arteriovenous fistula 02/24/2024 Open wound of right upper arm 02/24/2024 Assessment & Plan (03/15/2024 2:02 PM CDT): Impression: Open ulceration to the right antecubital fossa is nearly healed. No concern for infection. Patient has completed oral Bactrim and IV vancomycin therapy. Plan: Continue triple antibiotic ointment and dry gauze over antecubital site. -Encouraged patient make a sooner appointment if there is any concern. Assessment & Plan (03/05/2024 12:04 PM CDT): Impression: Open ulceration continues to heal. Is measuring smaller in size with no drainage. No worsening erythema noted. Plan: Continue oral Bactrim until completed. -Continue IV vancomycin. -Patient to return tomorrow for dressing changes with MABEL and dry gauze. ESRD (end stage renal disease) on dialysis 07/29 Assessment & Plan (03/15/2024 2:00 PM CDT): Impression: Patient being dialyzed through a left IJ Perma catheter without any complications. Right brachiocephalic AV fistula continues to mature. Plan: Continue utilizing Perma catheter for dialysis as per Nephrology. -Patient to follow-up in 3-4 weeks for re-evaluation of maturation of AV fistula with a V duplex scan. Assessment & Plan (03/05/2024 10:05 AM CDT): Impression: Patient is being dialyzed through a left IJ Perma catheter without any complications. Audible bruit and palpable thrill noted throughout right brachiocephalic AV fistula. Av fistula continues to mature. Plan: Continue utilizing Perma catheter for dialysis as per Nephrology. Assessment & Plan (02/27/2024 9:37 AM CDT): Patient was seen again in the access Center today for a dressing change. The erythema continues to improve. Purulent drainage is also improving. He continues to deny any fevers or chills. Continuing to dialyze through his left IJ Perma catheter. Packing removed in the office today. Area cleaned and replaced with clean iodoform packing 4x4s gauze wrapped with Kerlix and Buck wrap. Instructed the patient to continue taking his oral antibiotics. On Friday to remove the packing and re-dress the area with clean dressings and follow up on Friday for a dressing change and re- evaluation and for an AV duplex. Patient is agreeable Assessment & Plan (02/23/2024 9:55 AM CDT): Worsening induration erythema and now draining purulent drainage. Remains afebrile no malaise or chills. Recommend proceeding to the ER for further workup, admission to the hospital for IV antibiotics, blood cultures and ID consult. Assessment & Plan (01/09/2024 10:25 AM CDT): Progressive chronic kidney disease now requiring dialysis is currently dialyzing through a left IJ Perma catheter. Is requiring permanent access. Per current vein mapping he is a candidate for a fistula creation to the right upper extremity. Discussed procedure with the patient answered all questions to his satisfaction discussed potential risks patient is agreeable wishes to proceed. We will require cardiac clearance. Chronic obstructive pulmonary disease 12/13/2022 Laryngeal cancer 11/20/2022 Falls 10/10/2022 Wheezing 10/10/2022 Abnormal serum thyroid stimulating hormone (TSH) level 10/10/2022 Abnormal serum thyroid stimulating hormone (TSH) level 10/10/2022 Primary hypertension 10/09/2022 Assessment & Plan (03/15/2024 2:02 PM CDT): Impression: Chronic and elevated this office visit. Patient remains asymptomatic. Plan: Recommend patient to monitor blood pressures at home and notify primary care provider for elevated blood pressure for further management. Assessment & Plan (03/05/2024 10:05 AM CDT): Impression chronic and elevated. Patient remains asymptomatic. Plan: Recommend patient to monitor blood pressures at home and notify primary care provider for elevated blood pressure for further management. Assessment & Plan (01/09/2024 10:24 AM CDT): Continue antihypertensive Chronic respiratory failure with hypoxia 023 Smoking greater than 40 pack years 08/10/[address] 08/10/2022 Acute hypoxemic respiratory failure 06/06/2022 Aspiration pneumonia 06/05/2022 Overview (06/10/2022): Added automatically from request for surgery [id number] Hyperlipidemia 02/20/2022 Hyperkalemia 02/12/2022 Cardiomegaly 01/17/2022 Hypothyroidism 10/15/2018 Acute osteomyelitis of ankle or foot 06/10/2018 Acute osteomyelitis of foot 06/10/2018 Acute pharyngitis 06/10/2018 Cellulitis and abscess of toe 06/10/2018 COPD (chronic obstructive pulmonary disease) 01/2019 Type 2 diabetes mellitus wit h diabetic peripheral angiopathy without gangrene, with long-term current use of insulin 06/10/2018 Assessment & Plan (01/09/2024 10:24 AM CDT): Continue insulin Dyslipidemia 06/10/2018 Assessment & Plan (01/09/2024 10:24 AM CDT): Continue statin therapy Elevated TSH 02/13/2018 Assessment & Plan (02/13/2018 5:12 PM CDT): Time pattern of TSH rise correlates well with external beam radiation to the neck. Likely hypothyroidism induced by radiation therapy. -checking TSH today -agree with levothyroxine therapy given that the TSH mimi to 9.6. -will titrate levothyroxine to normalize TSH Hyperparathyroidism 02/13/2018 Assessment & Plan (02/13/2018 5:15 PM CDT): PTH up at 253 in 09/2017. He has mild vitamin D deficiency and recent CKDIII. -no evidence of hypercalcemia at any time during his hospitalizations or clinic visits over the past year. -possibly all related to secondary hyperparathyroidism from CKDIII. 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 18 Encounter for routine cancer follow-up 8 Sensorineural hearing loss, bilateral 11/11/2017 Assessment & Plan (11/11/2017 7:26 PM CDT): - progression of high-frequency hearing loss and now symptomatic - recommend hearing aid trial - patient instructed to call me if there are any acute changes as there may be a role for steroids Tinnitus, bilateral 11/11/2017 Hypertensive chronic kidney disease with stage 1 through stage 4 chronic kidney disease, or unspecified chronic kidney disease 10/02/2017 Type 2 diabetes mellitus wit h other diabetic kidney complication 10/02/2017 Chest pain 09/22/2016 Resolved Problems Problem Noted Date Diagnosed Date Resolved Date Encounter for follow-up surv eillance of tongue cancer 12/23/2017 12/23/2017 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 Social History Tobacco Use Types Packs/Day Years Used Date Smoking Tobacco: Former Cigarettes Q uit: 2015 Passive Smoke Exposure: Current Smokeless Tobacco: Never Tobacco Cessation:Counseling Given: Not Answered Social Connection and Isolat ion Panel [NHANES] Answer Date Recorded In a typical week, how many times do you talk on the phone with family, friends, or neighbors? More than three times a week 06/07/2022 How often do you get togethe r with friends or relatives? More than three times a week 06/07/2022 How often do you attend chur [email or web address] or gnosticist services? Never 06/07/2022 Do you belong to any clubs o r organizations such as mandaeism groups, unions, fraternal or athletic groups, or school groups? No 06/07/2022 How often do you attend meet ings of the clubs or organizations you belong to? Never 06/07/2022 Are you , , di vorced, , never , or living with a partner? 06/07/2022 AUDIT-C Answer Date Recorded Q1: How often do you have a drink containing alcohol? Never 01/26/2024 Q2: How many drinks containi ng alcohol do you have on a typical day when you are drinking? Patient does not drink Q3: How often do you have si x or more drinks on one occasion? Never 01/26/2024 Overall Financial Resource Strain (CARDIA) Answe r [...] making you feel afraid or unsafe? Denies 02/24/2024 Sex and Gender Information Value Date Recorded Sex Assigned at Not on file Legal Sex Male 12:38 AM CDT Gender Identity Not on file Sexual Orientation Not on file Last Filed Vital Signs Vital Sign Reading Time Taken Comments Blood Pressure 148/82 05/31/2024 10:35 AM TECHNICAL ASSISTANT Pulse 76 05/31/2024 10:35 AM TECHNICAL ASSISTANT Temperature 36.7 C (98.1 F) 02/26/2024 12:33 PM CDT Respiratory Rate 18 05/31/2024 10:35 AM TECHNICAL ASSISTANT Oxygen Saturation 96% 05/31/2024 10:35 AM TECHNICAL ASSISTANT Inhaled Oxygen Concentration - - Weight 95 kg (209 lb 7 oz) 04/16/2024 7:48 AM CS T Height 165.1 cm (5' 5 ) 04/16/2024 7:48 AM TECHNICAL ASSISTANT Body Mass Index 34.85 04/16/2024 7:48 AM TECHNICAL ASSISTANT Plan of Treatment Not on file Medical Devices Implanted Type Area Transportation Solutions Manager Device Identifier Shelf Expiration Date Model / Serial / Lot Perma Cath Left: Chest Tracheostomy Throat [employer] DataArtck bead Button 6 Cartridge Ligate Triangulate Cross Section Heart [id number] - Sn/A - [id number] Implanted:Qty: 5 on 11/20/2022 by Parvez Hemphill MD at [facility] N/A: Larynx [employer] [id number] 07/30/2026 [id number] / N/A / [id number] [employer] Weck Horizon Ligate Triangulate Cross Section Wire Small Wide Latex Free - Sn/A - [id number] Implanted:Qty: 5 on 11/20/2022 by Parvez Hemphill MD at [facility] N/A: Larynx [employer] [id number] 03/04/2027 / N/A / [id number] [employer]; Larytube; Xtraflow Od15 Mm; Id12 Mm L55 Mm 5 Cassette 10; 7611 - Sn/A - [id number] Implanted:Qty: 1 on 11/20/2022 by Dipti Johnson MD at [facility] N/A: Throat [employer] 12/30/2024 7611 / N/A / [id number] Procedures Procedure Name Priority Date/Time Associated Diagnosis Comments EGFR STAT 02/24/2024 10:41 AM CDT HEMOGLOBIN A1C Routine 11/20/2022 10:01 PM CDT LIPID PANEL Routine 11/20/2022 10:01 PM CDT HEPATITIS C ANTIBODY Routine 11/20/2022 2:36 PM CDT from Last 3 Months or Most Recently Relevant to Health Maintenance Results * (ABNORMAL) eGFR (02/24/2024 10:41 AM CDT) eGFR 8(L) >=60 mL/min/1. 73 m2 Comment: Interpretive Data Reference Interval Normal >/= 90 mL/min/1.73m2 Mildly decreased* 60 - 89 mL/min/1.73m2 Mildly to moderately decreased 45 - 59 mL/min/1.73m2 Moderately to severely decreased 30 - 44 mL/min/1.73m2 Severely decreased 15 - 29 mL/min/1.73m2 Kidney Failure < 15 mL/min/1.73m2 *Relative to young adult level Estimated glomerular filtration rate is determined by the 2020 CKD-EPI equation recommended by the National Kidney Foundation (A Unifying Approach to GFR Estimation: Recommendations of the NKF-ASK Task Force on Reassessing the Inclusion of Race in Diagnosing Kidney Disease, JASN 2020). The CKD-EPI equation should not be used for patients with unstable renal function and has not been validated in children and those over 70. Current interpretive data was last reviewed 2021. Blood 02/24/2024 10:4 1 AM CDT 02/24/2024 10:43 AM CDT Susan JARVIS LAB BLOOD ORDERABLES Final Result Performing Organization Address City/[facility]/ZIP Co de Phone Number [address] [place] [address] * Hemoglobin A1c (11/20/2022 10:01 PM CDT) [facility] Hgb A1C 4.9 4.0 - 5.6 % [facility] [place]NOTE 2] Estimated Average Glucose 94 mg/dL [facility] Comment: The ADA recommends reporting an estimated Average Glucose (eAG) with all Hemoglobin A1c results using the equation derived from a study of 507 normal and diabetic adults. Minority populations were underrepresented and children were not included. (Diabetes Care 2020; 43(S1): S66-S76). The eAG is not equivalent to a fasting glucose. Blood 11/20/2022 10:0 1 PM CDT 11/20/2022 10:31 PM CDT Parvez Hemphill MD LAB BLOOD ORDERABLES Final Result [facility] [address] [facility] Department [place] [address] * Lipid panel (11/20/2022 10:01 PM CDT) Cholesterol 182 30 - 199 mg/dL [facility] Comment: Interpretive Data Ages < or = 19 years Acceptable: <170 mg/dL Borderline high: 170-199 mg/dL High: >or= 200 mg/dL Ages > or = 20 years Desirable: <200 mg/dL Borderline high: 200-239 mg/dL High: >or= 240 mg/dL Literature References: 1. Expert Panel on Integrated Guidelines for Cardiovascular Health and Risk Reduction in Children and Adolescents. Pediatrics 2011;128:S213 2. NCEP Expert Panel. Circulation 2004;110:227 Current Interpretive Data was last revised on 2018. Triglycerides 106 <=149 mg/dL [facility] Comment: Interpretive Data Ages < or = 9 years Acceptable: <75 mg/dL Borderline high: 75-99 mg/dL High: >or= 100 mg/dL Ages 10 to 20 years Acceptable: <90 mg/dL Borderline high: 90-129 mg/dL High: >or= 130 mg/dL Ages > or = 20 years Desirable: <150 mg/dL Borderline high: 150-199 mg/dL High: 200-499 mg/dL Very high: >or= 499 mg/dL Literature References: 1. Expert Panel on Integrated Guidelines for Cardiovascular Health and Risk Reduction in Children and Adolescents. Pediatrics 2011;128:S213 2. NCEP Expert Panel. Circulation 2003;110:227 Current Interpretive Data was last revised on 2018. HDL 60 >=40 mg/dL [facility] Comment: Interpretive Data Ages < or = 19 years Acceptable: >45 mg/dL Borderline low: 40-45 mg/dL Low: <40 mg/dL Ages > or = 20 years Desirable: >or= 60 mg/dL Low: <40 mg/dL Literature References: 1. Expert Panel on Integrated Guidelines for Cardiovascular Health and Risk Reduction in Children and Adolescents. Pediatrics 2011;128:S213 2. NCEP Expert Panel. Circulation 2004;110:227 Current Interpretive Data was last revised on 2018. LDL, calculated 101 <=129 mg/dL [facility] Comment: Interpretive Data Ages < or = 19 years Acceptable: <110 mg/dL Borderline high: 110-129 mg/dL High: >or= 130 mg/dL Ages > or = 20 years Optimal: <100 mg/dL Near optimal: 100-129 mg/dL Borderline high: 130-159 mg/dL High: >160 mg/dL Literature References: 1. Expert Panel on Integrated Guidelines for Cardiovascular Health and Risk Reduction in Children and Adolescents. Pediatrics 2011;128:S213 2. NCEP Expert Panel. Circulation 2004;110:227 Current Interpretive Data was last revised on 2018. Non-HDL Cholesterol 122 mg/dL [facility] Comment: Interpretive Data Ages < or = 19 years Acceptable: <120 mg/dL Borderline high: 120-144 mg/dL High: >145 mg/dL Ages > or = 20 years When triglycerides are >200 mg/dL, Non-HDL cholesterol is a secondary target of therapy with treatment goals that are 30 mg/dL greater than the LDL cholesterol target. Literature References: 1. Expert Panel on Integrated Guidelines for Cardiovascular Health and Risk Reduction in Children and Adolescents. Pediatrics 2011;128:S213 2. NCEP Expert Panel. Circulation 2004;110:227 Current Interpretive Data was last revised on 2018. Chol/HDL ratio 3 [facility] Blood 11/20/2022 10:0 1 PM CDT 11/20/2022 10:18 PM CDT us Parvez Hemphill MD LAB BLOOD ORDERABLES Final Result Performing Organization Address City/[facility] Co de Phone Number [facility] [address] [facility] Department [place] [address] * Hepatitis C antibody (11/20/2022 2:36 PM CDT) Hep C Ab Nonreactive Nonreactive [facility] Comment:Antibodies to HCV no t detected. Does NOT exclude the possibility of recent exposure to HCV. Current interpretive data was last revised on 22 Blood 11/20/2022 2:36 PM CDT 11/20/2022 3:14 PM CDT Ale Moreau MD LAB MICROBIOLOGY - GENERAL ORDER RENATE Final Result Performing Organization Address City/[facility]/ZIP Co de Phone Number [facility] [address] [facility] Department [place] [address] from Last 3 Months or Most Recently Relevant to Health Maintenance Insurance [facility] Advance Directives For more information, please contact: [phone] * Full Code (Latest Code Status on File) Date Activated Date Inactivated Comments 11/20/2022 5:48 PM 11/25/2022 8:48 PM * Full Code Date Activated Date Inactivated Comments 06/06/2022 10:43 PM 06/27/2022 9:42 PM Care Teams Proposal Writer Relationship Specialty Start Date End Date Naila Teague PA [address] [facility] [address] [place] [address] PCP - General Physician Full Time Staff Interpreter 03/15/22 Bronwyn Guardado Au.D. Line Haul Owner Operator Audiology 11/11/17 Kenny Pedro MD [address] [facility] [address] [place] [address] Radiation Oncologist Radiation Oncology 12/23/17 Ricardo Pritchard MD [address] [facility] [address] [place] [address] Medical Oncologist/Radio Personality Medical Oncology 12/23/17 Telly Freedman MD [address] [place] [address] Referring Physician Family Medicine 06/17/22 Danish Leo MD [address] [place] [address] Consulting Physician Otolaryngology 10/12/22 Braden Griffin MD [address] [id number] Consulting Physician Cardiology 01/13/24 Isaiah Davis MD [address] [address] Consulting Physician Nephrology 01/13/24 Aurelio Stovall MD [address] [address] Consulting Physician Pulmonary Disease 01/13/24 Parvez Hemphill MD [address] [place], [place] [id number] Referring Physician Otolaryngology 01/13/24 Nel Lamb, RN [address] [facility] [address] [place], [place] [id number] Soap Mixer 04/16/24
--- OUTSIDE RECORDS SUMMARY | 2024-08-05 10:26 | XMS_ITS | Data Portability ---
[facility] Organization [facility] Address [address] [place] [address] Care Team Providers Care Jewelry Estimator Name Role Phone RICHIE RICO Primary Care Provider [phone] Assessment Encounter Date Assessment Date Assessment LastModified by Organization Details LastModified Time 07/30/2022 07/30/2022 denies smoking. smells like cigarette smoke Not available 08/02/2022 12:47:57 08/05/2023 08/05/2023 declines labs today as just did labs at [facility]. scheduled for one month for f/u and labs here. will request Not available 08/07/2023 08:18:55 Plan of Treatment Reminders Order Date Submit Date Provider Last Modified By Organization Details Last Modified Time Details Appointments ANNUAL 30 2024 11:15A MATHEUS SAUL Not available Not available Not available Lab CMP, serum or plasma 2022 023 JAVIER NICE, [address], [address], [place], [address], 02/20/2023 16:43:53 TSH + free T4, serum 2022 023 JAVIER NICE, [address], [address], [place], [address], 02/22/2023 08:32:49 CMP, serum or plasma 2022 023 JAVIER NICE, [address], [address], [place], [address], 12/13/2022 08:28:34 lipid panel, serum 2022 023 JAVIER [facility], [address], [address], [place], [address], 12/13/2022 08:28:33 albumin/c reatinine , mass ratio, urine 2022 023 JAVIER [facility], [address], [address], [place], [address], 12/13/2022 08:28:36 HbA1c (hemoglob in A1c), blood 2022 023 JAVIER [facility], [address], [address], [place], [address], 12/13/2022 08:28:38 TSH + free T4, serum 2022 023 JAVIER [facility], [address], [address], [place], [address], 12/13/2022 08:28:37 TSH + free T4, serum 2022 023 [place] [address] [facility], [address], [address], [place], [address], 10/10/2022 16:21:02 CMP, serum or plasma 2022 023 JAVIER [facility], [address], [address], [place], [address], 07/31/2022 12:13:14 CBC w/ auto diff 2022 023 JAVIER [facility], [address], [address], [place], [address], 07/31/2022 12:13:15 HbA1c (hemoglob in A1c), blood 2022 023 JAVIER In-Office Order, Internal Use Only DO Not Attach Compendium DO Not Attach Compendium, Do Not Delete/merge, [id number] 07/30/2022 14:46:47 TSH + free T4, serum 2022 023 JAVIER [facility], [address] [facility], [address], [place], [address], 07/31/2022 08:24:01 Referral physical therapist referral - PT low back pain 2023 024 [facility], [address] [place], [address], 09/19/2023 14:27:49 gastroent erologist referral - needs feeding tube removed 2022 023 [email or web address] Ayleen Mckeon MD, [address], [place], [address], 02/20/2023 16:56:13 endocrino logy referral [address] [facility] - Endocrinology , [address], [place], [address], 12/25/2022 17:00:28 physical therapist referral 2022 023 [facility] (Outpatient Physical Therapy), [address], [place], [address], 11/14/2022 16:00:55 pulmonolo gist referral - patient [facility] for acute hypoxemic resp failure from 05/2022- 06/18/2022 . He is on 3L oxygen daytime and 6L night time. needs to be seen the sooner available 2022 023 osmany Stovall, [address] [place] [address] [address], [place], [address], 08/27/2022 09:13:52 general surgeon referral - needs to see surgeon who placed his PEG tube 2022 023 osmany [facility] (Scheduling), [address] , [place], [address], 10/25/2022 10:54:39 Procedures None recorded. Surgeries None recorded. Imaging XR, lumbar spine [address] (Radiology), [address] [place], [address], 11/11/2023 07:56:59 XR, chest, 2 view [address] ([facility] Scheduling), [address] [place], [address], 02/20/2023 16:56:13 Medication Orders levothyro xine 175 mcg tablet 2022 023 [facility] [employer], [address], [address], [place], [address], 02/24/2023 08:26:22 levothyro xine 175 mcg tablet 2022 023 [facility], [employer], [address], [address], [place], [address], 12/16/2022 09:27:14 Patient TargetsNo targets recorded. Patient Instructions Encounter Date Encounter Id Patient Instructions Last Modified By Organization Details Last Modified Time 07/30/2022 [id number] A healthy lifestyle: care instructions Not available 07/30/2022 14:19:14 12/12/2022 [id number] I have reviewed the patient's medical record and the note from this clinical encounter. I was available by phone for the duration of the visit. I agree with the assessment and plan with the following addendum: Levothyroxine pill should be fine but needs to take on an empty stomach 30 minutes before any food. Shashi Pandey MD [email or web address] Not available 12/16/2022 11:10:13 Reason for Referral Groundskeeper Porter Referral for A cute hypoxemic respiratory failure patient hospitalized for acute hypoxemic resp failure from 05/2022- 06/18/2022. He is on 3L oxygen daytime and 6L night time. needs to be seen the sooner available Referring Physician: General Vale Gallardo, Encounter Date: 07/30/2022 General Surgeon Referral for Tube feeding diet needs to see surgeon who placed his PEG tube Referring Physician: General Vale Gallardo, Encounter Date: 07/30/2022 Physical Therapist Referral for Falls Referring Physician: General Vale Gallardo, Encounter Date: 10/10/2022 Endocrinology Referral for H ypothyroidism Referring Physician: General Vale Gallardo, Encounter Date: 12/12/2022 Burlap Spreader Referral for Tube feeding diet needs feeding tube removed Referring Physician: General Vale Gallardo, Encounter Date: 02/20/2023 Physical Therapist Referral for Low back pain PT low back pain Referring Physician: General Vale Gallardo, Encounter Date: 08/05/2023 Results Created Date Observation Date Name Description Value Unit Range Abnormal Flag Note LastModifiedBy Organization Detail LastModifiedTime 07/30/1907/31/2022 TSH+F REE T4 TSH 147.00 0 uIU/m L 0.450- 4.500 above high normal Resul ts confi rmed on dilut ion. Not Available [facility] ([facility]) [address] [place], [address], 07/31/2022 08:24:01 07/30/1907/31/2022 TSH+F REE T4 T4,free(dire ct) 0.58 NG/dL 0.82-1 .77 below low normal Not Available [facility] ([facility]) [address] [facility], [place], [address], 07/31/2022 08:24:01 07/30/19 23 07/31/2022 COMP. METAB OLIC PANEL (14) glucose 143 mg/dL 65-99 above high normal ANION GP 15.0 mmol/ L N OSMOL 297.0 mOsM/ L N REFER ENCE RANGE : 275.0 -301. 0 Not Available [facility] Department [address] [place], [address], 07/31/2022 12:13:14 07/30/19 23 07/31/2022 COMP. METAB OLIC PANEL (14) BUN 70 mg/dL 8-26 panic high Not Available [facility] Department [address] [place], [address], 07/31/2022 12:13:14 07/30/19 23 07/31/2022 COMP. METAB OLIC PANEL (14) creatinine 2.52 mg/dL 0.50-1 .40 above high normal Not Available [facility] Department [address] [place], [address], 07/31/2022 12:13:14 07/30/19 23 07/31/2022 COMP. METAB OLIC PANEL (14) eGFR 29 mL/mi n/1.7 3 >=60 below low normal Not Available [facility] Department [address] [place], [address], 07/31/2022 12:13:14 07/30/19 23 07/31/2022 COMP. METAB OLIC PANEL (14) BUN/creatini ne ratio 27.7 Not Available [facility] Department [address] [place], [address], 07/31/2022 12:13:14 07/30/19 23 07/31/2022 COMP. METAB OLIC PANEL (14) sodium 136.9 mmol/ L 136.0- 144.0 Not Available [facility] Department [address] [place], [address], 07/31/2022 12:13:14 07/30/19 23 07/31/2022 COMP. METAB OLIC PANEL (14) potassium 4.7 mmol/ L 3.5-5. 3 Not Available [facility] Department [address] [place] [address], [address], 07/31/2022 12:13:14 07/30/19 23 07/31/2022 COMP. METAB OLIC PANEL (14) chloride 98 mmol/ l 101-11 1 below low normal Not Available [facility] Department [address] [place] [address], [address], 07/31/2022 12:13:14 07/30/19 23 07/31/2022 COMP. METAB OLIC PANEL (14) carbon dioxide, total 28.8 mmol/ L 21.0-3 2.0 Not Available [facility] Department [address] [place] [address], [address], 07/31/2022 12:13:14 07/30/19 23 07/31/2022 COMP. METAB OLIC PANEL (14) calcium 10.1 mg/dL 8.2-10 .0 above high normal Not Available [facility] Department [address] [place], [address], 07/31/2022 12:13:14 07/30/19 23 07/31/2022 COMP. METAB OLIC PANEL (14) protein, total 6.7 g/dL 6.7-8. 2 Not Available [facility] Department [address] [place] [address], [address], 07/31/2022 12:13:14 07/30/19 23 07/31/2022 COMP. METAB OLIC PANEL (14) albumin 3.8 g/dL 3.5-5. 5 Not Available [facility] Department [address] [place], [address], 07/31/2022 12:13:14 07/30/19 23 07/31/2022 COMP. METAB OLIC PANEL (14) globulin, total 2.9 g/dL 1.5-4. 5 Not Available [facility] Department [address] [place], [address], 07/31/2022 12:13:14 07/30/19 23 07/31/2022 COMP. METAB OLIC PANEL (14) A/G ratio 1.4 Not Available [facility] Department [address] [place], [address], 07/31/2022 12:13:14 07/30/19 23 07/31/2022 COMP. METAB OLIC PANEL (14) bilirubin, total 0.3 mg/dL 0.0-1. 2 Not Available [facility] Department [address] [place], [address], 07/31/2022 12:13:14 07/30/19 23 07/31/2022 COMP. METAB OLIC PANEL (14) alkaline phosphatase 91.4 IU/L 42.0-1 21.0 Not Available [facility] Department [address] [place], [address], 07/31/2022 12:13:14 07/30/19 23 07/31/2022 COMP. METAB OLIC PANEL (14) AST (SGOT) 22.9 U/L 10.0-4 2.0 Not Available [facility] Department [address] [place] [address], [address], 07/31/2022 12:13:14 07/30/19 23 07/31/2022 COMP. METAB OLIC PANEL (14) ALT (SGPT) 15.8 U/L 10.0-6 0.0 Not Available [facility] Department [address] [place], [address], 07/31/2022 12:13:14 07/30/19 23 07/30/2022 CBC WITH DIFFE RENTI AL/PL ATELE T WBC 5.5 K/uL 3.4-10 .8 Not Available [facility] Department [address] [place] [address], [address], 07/31/2022 12:13:15 07/30/19 23 07/30/2022 CBC WITH DIFFE RENTI AL/PL ATELE T RBC 4.2 M/uL 4.5-6. 3 below low normal Not Available [facility] Department [address] [place], [address], 07/31/2022 12:13:15 07/30/19 23 07/30/2022 CBC WITH DIFFE RENTI AL/PL ATELE T hemoglobin 12.9 g/dL 13.5-1 7.5 below low normal Not Available [facility] Department [address] [place], [address], 07/31/2022 12:13:15 07/30/19 23 07/30/2022 CBC WITH DIFFE RENTI AL/PL ATELE T hematocrit 39.6 % 40.0-5 2.0 below low normal Not Available [facility] Department [address] [facility], [place], [address], 07/31/2022 12:13:15 07/30/19 23 07/30/2022 CBC WITH DIFFE RENTI AL/PL ATELE T MCV 93 fL 80-95 Not Available [facility] Department [address] [place], [address], 07/31/2022 12:13:15 07/30/19 23 07/30/2022 CBC WITH DIFFE RENTI AL/PL ATELE T MCH 30 pg 27-32 Not Available [facility] Department [address] [place], [address], 07/31/2022 12:13:15 07/30/19 23 07/30/2022 CBC WITH DIFFE RENTI AL/PL ATELE T MCHC 33 g/dL 32-36 Not Available [facility] Department [address] [place], [address], 07/31/2022 12:13:15 02/28/07/30/2022 CBC WITH DIFFE RENTI AL/PL ATELE T RDW 14.9 % 11.5-1 4.5 above high normal Not Available [facility] Department [address] [place], [address], 07/31/2022 12:13:15 07/30/19 23 07/30/2022 CBC WITH DIFFE RENTI AL/PL ATELE T platelets 178 K/uL 155-37 9 MPV 13.0 FL 8.9-1 2.7 H Not Available [facility] Department [address] [place], [address], 07/31/2022 12:13:15 07/30/1907/30/2022 CBC WITH DIFFE RENTI AL/PL ATELE T neutrophils 62.9 % 40.0-7 4.0 Not Available [facility] Department [address] [place], [address], 07/31/2022 12:13:15 07/30/19 23 07/30/2022 CBC WITH DIFFE RENTI AL/PL ATELE T lymphs 23.8 % 14.0-4 6.0 Not Available [facility] Department [address] [place], [address], 07/31/2022 12:13:15 07/30/19 23 07/30/2022 CBC WITH DIFFE RENTI AL/PL ATELE T monocytes 8.6 % 4.0-12 .0 Not Available [facility] Department [address] [place], [address], 07/31/2022 12:13:15 07/30/1907/30/2022 CBC WITH DIFFE RENTI AL/PL ATELE T eos 3 % 0-5 Not Available [facility] Department [address] [place], [address], 07/31/2022 12:13:15 07/30/19 23 07/30/2022 CBC WITH DIFFE RENTI AL/PL ATELE T basos 0.9 % 0.0-1. 0 Not Available [facility] Department [address] [place], [address], 07/31/2022 12:13:15 07/30/19 23 07/30/2022 CBC WITH DIFFE RENTI AL/PL ATELE T neutrophils (absolute) 3.4 K/uL 1.4-7. 0 Not Available [facility] Department [address] [place], [address], 07/31/2022 12:13:15 07/30/19 23 07/30/2022 CBC WITH DIFFE RENTI AL/PL ATELE T lymphs (absolute) 1.3 K/uL 0.7-3. 1 Not Available [facility] Department [address] [place], [address], 07/31/2022 12:13:15 07/30/19 23 07/30/2022 CBC WITH DIFFE RENTI AL/PL ATELE T monocytes(ab solute) 0.5 K/uL 0.1-0. 9 Not Available [facility] Department [address] [place], [address], 07/31/2022 12:13:15 07/30/19 23 07/30/2022 CBC WITH DIFFE RENTI AL/PL ATELE T eos (absolute) 0.2 K/uL 0.0-0. 4 Not Available [facility] Department [address] [place], [address], 07/31/2022 12:13:15 07/30/19 23 07/30/2022 CBC WITH DIFFE RENTI AL/PL ATELE T baso (absolute) 0.1 K/uL 0.0-0. 3 Not Available [facility] Department [address] [place], [address], 07/31/2022 12:13:15 07/30/19 23 07/30/2022 CBC WITH DIFFE RENTI AL/PL ATELE T immature granulocytes 1.1 % Not Available [facility] Department [address], [place], [address], 07/31/2022 12:13:15 07/30/19 23 07/30/2022 CBC WITH DIFFE RENTI AL/PL ATELE T immature grans (abs) 0.1 K/uL Not Available [facility] Department [address] [facility], [place], [address], 07/31/2022 12:13:15 07/30/19 23 07/30/2022 CBC WITH DIFFE RENTI AL/PL ATELE T NRBC 0 % Not Available [facility] Department [address] [facility], [place], [address], 07/31/2022 12:13:15 07/30/19 23 07/30/2022 HbA1c (hemo globi n A1c), blood HbA1c 5.2% Not Available In-Office Order Internal Use Only DO Not Attach Compendium DO Not Attach Compendium, Do Not Delete/merge, [id number] 07/30/2022 14:39:43 12/13/19 23 12/13/2022 LIPID PANEL cholesterol, total 185 mg/dL 100-19 9 Not Available [facility] ([facility]) [address] [place], [address], 12/13/2022 08:28:33 12/13/19 23 12/13/2022 LIPID PANEL triglyceride s 110 mg/dL 0-149 Not Available [facility] ([facility]) [address] [place], [address], 12/13/2022 08:28:33 12/13/19 23 12/13/2022 LIPID PANEL HDL cholesterol 65 mg/dL >39 Not Available [facility]) [address] [place], [address], 12/13/2022 08:28:33 12/13/19 23 12/13/2022 LIPID PANEL VLDL cholesterol brando 20 mg/dL 5-40 Not Available [facility] ([facility]) [address] [place], [address], 12/13/2022 08:28:33 12/13/19 23 12/13/2022 LIPID PANEL LDL chol calc ([facility]) 100 mg/dL 0-99 above high normal Not Available [facility] ([facility]) [address] [place], [address], 12/13/2022 08:28:33 12/13/19 23 12/13/2022 COMP. METAB OLIC PANEL (14) glucose 100 mg/dL 70-99 above high normal Not Available [facility] ([facility]) [address] [place], [address], 12/13/2022 08:28:34 12/13/19 23 12/13/2022 COMP. METAB OLIC PANEL (14) BUN 78 mg/dL 6-24 alert high Not Available [facility] ([facility]) [address] [place], [address], 12/13/2022 08:28:34 12/13/19 23 12/13/2022 COMP. METAB OLIC PANEL (14) creatinine 3.09 mg/dL 0.76-1 .27 above high normal Not Available [facility] ([facility]) [address] [place], [address], 12/13/2022 08:28:34 12/13/19 23 12/13/2022 COMP. METAB OLIC PANEL (14) eGFR 23 mL/mi n/1.7 3 >59 below low normal Not Available [facility] ([facility]) [address] [place], [address], 12/13/2022 08:28:34 12/13/19 23 12/13/2022 COMP. METAB OLIC PANEL (14) BUN/creatini ne ratio 25 9-20 above high normal Not Available [facility] ([facility]) [address] [place], [address], 12/13/2022 08:28:34 12/13/19 23 12/13/2022 COMP. METAB OLIC PANEL (14) sodium 137 mmol/ L 134-14 4 Not Available [facility] ([facility]) [address] [facility], [place], [address], 12/13/2022 08:28:34 12/13/19 23 12/13/2022 COMP. METAB OLIC PANEL (14) potassium 4.8 mmol/ L 3.5-5. 2 Not Available [facility] ([facility]) [address] [facility], [place], [address], 12/13/2022 08:28:34 12/13/19 23 12/13/2022 COMP. METAB OLIC PANEL (14) chloride 99 mmol/ L 96-106 Not Available [facility] ([facility]) [address] [facility], [place], [address], 12/13/2022 08:28:34 12/13/19 23 12/13/2022 COMP. METAB OLIC PANEL (14) carbon dioxide, total 20 mmol/ L 20-29 Not Available [facility] ([facility]) [address] [facility], [place], [address], 12/13/2022 08:28:34 12/13/19 23 12/13/2022 COMP. METAB OLIC PANEL (14) calcium 9.9 mg/dL 8.7-10 .2 Not Available [facility] ([facility]) [address] [facility], [place], [address], 12/13/2022 08:28:34 12/13/19 23 12/13/2022 COMP. METAB OLIC PANEL (14) protein, total 6.7 g/dL 6.0-8. 5 Not Available [facility] ([facility]) [address] [facility], [place], [address], 12/13/2022 08:28:34 12/13/19 23 12/13/2022 COMP. METAB OLIC PANEL (14) albumin 4.1 g/dL 3.8-4. 9 Ple ase note refer ence isa andino Not Available [facility] ([facility]) [address] [facility], [place], [address], 12/13/2022 08:28:34 12/13/19 23 12/13/2022 COMP. METAB OLIC PANEL (14) globulin, total 2.6 g/dL 1.5-4. 5 Not Available [facility] ([facility]) [address] [facility], [place], [address], 12/13/2022 08:28:34 12/13/19 23 12/13/2022 COMP. METAB OLIC PANEL (14) A/G ratio 1.6 1.2-2. 2 Not Available [facility] ([facility]) [address] [facility], [place], [address], 12/13/2022 08:28:34 12/13/19 23 12/13/2022 COMP. METAB OLIC PANEL (14) bilirubin, total 0.2 mg/dL 0.0-1. 2 Not Available [facility] ([facility]) [address] [facility], [place], [address], 12/13/2022 08:28:34 12/13/19 23 12/13/2022 COMP. METAB OLIC PANEL (14) alkaline phosphatase 84 IU/L 44-121 Not Available [facility] ([facility]) [address] [facility], [place], [address], 12/13/2022 08:28:34 12/13/19 23 12/13/2022 COMP. METAB OLIC PANEL (14) AST (SGOT) 16 IU/L 0-40 Not Available [facility] ([facility]) [address] [facility], [place], [address], 12/13/2022 08:28:34 12/13/19 23 12/13/2022 COMP. METAB OLIC PANEL (14) ALT (SGPT) 10 IU/L 0-44 Not Available [facility] ([facility]) [address] [place], [address], 12/13/2022 08:28:34 12/13/19 23 12/13/2022 ALBUM IN/CR EATIN INE RATIO ,URIN E creatinine, urine 142.7 mg/dL notest ab. Not Available [facility] ([facility]) [address] [place], [address], 12/13/2022 08:28:36 12/13/19 23 12/13/2022 ALBUM IN/CR EATIN INE RATIO ,URIN E albumin, urine 1855.3 ug/mL notest ab. Resul ts confi rmed on dilut ion. Not Available [facility] ([facility]) [address] [facility], [place], [address], 12/13/2022 08:28:36 12/13/19 23 12/13/2022 ALBUM IN/CR EATIN INE RATIO ,URIN E alb/creat ratio 1300 mg/g_ creat 0-29 above high normal Brii l: 0 - 29 Moder ately incre ased: 30 - 300 Sever kanchan incre ased: >300 Not Available [facility] ([facility]) [address] [place], [address], 12/13/2022 08:28:36 12/13/19 23 12/13/2022 TSH+F REE T4 TSH 163.00 0 uIU/m L 0.450- 4.500 above high normal Resul ts confi rmed on dilut ion. Not Available [facility] ([facility]) [address] [place], [address], 12/13/2022 08:28:37 12/13/19 23 12/13/2022 TSH+F REE T4 T4,free(dire ct) 0.66 NG/dL 0.82-1 .77 below low normal Not Available [facility] ([facility]) [address] [place], [address], 12/13/2022 08:28:37 12/13/1912/13/2022 HEMOG LOBIN A1C hemoglobin A1C 5.2 % 4.8-5. 6 Predi abete s: 5.7 - 6.4 Diabe edilma: >6.4 Glyce stalin contr ol for adult s with diabe edilma: <7.0 Not Available [facility] ([facility]) [address] [place], [address], 12/13/2022 08:28:38 02/21/2002/22/2023 TSH+F REE T4 TSH 11.200 uIU/m L 0.450- 4.500 above high normal Not Available [facility] ([facility]) [address] [place], [address], 02/22/2023 08:32:49 02/21/2002/22/2023 TSH+F REE T4 T4,free(dire ct) 1.53 NG/dL 0.82-1 .77 Not Available [facility] ([facility]) [address] [place], [address], 02/22/2023 08:32:49 Result Notes None recorded. 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 Not Available [facility] 4 18:29:33 Screening for malignant neoplasm of respirato ry tract Active 2021 Not Available [facility] 4 18:29:33 Amputated big toe 221537205 Active 2021 Not Available [facility] 4 18:29:33 Hospital inpatient stay within past 30 days 04012502246 06 Active 2022 Not Available [facility] 4 18:29:33 Serum thyroid stimulati ng hormone level outside reference range 544274766 Active 2022 Not Available [facility] 4 18:29:33 Wheezing 62106704 Active 2022 Not Available [facility] 4 18:29:33 Falls 631889999 Active 2022 Not Available [facility] 4 18:29:33 History of laryngect bernarda 022032159 Active 2022 Not Available [facility] 4 18:29:33 Chronic kidney disease 777862842 Active 2022 Not Available [facility] 4 18:29:33 Type 2 diabetes mellitus 87200311 Active 2022 Not Available [facility] 4 18:29:33 Edema of lower extremity 038360016 Active 2022 Not Available [facility] 4 18:29:33 Low back pain 425075676 Active 2023 MATHEUS GALLARDO Attn: Accounting ,[address] [place], [place], [address] [place] [address] , [place] [facility] 4 17:04:39 Heart failure 01211663 Active 2023 MATHEUS GALLARDO Attn: Accounting ,[address] [place], [place], [address] [place] [address] , [place] [facility] 4 17:04:40 End stage renal failure on dialysis 788498726 Active 2023 MATHEUS GALLARDO Attn: Accounting ,[address] [place], [place], [address] [place] [address] , [place] [facility] 4 17:04:55 Diabetes mellitus 91971616 Active Not Available [facility] 4 18:29:33 Celluliti s and abscess of toe 203336034 Completed 02/18/2018 ROSANNA Herrera NP Attn: Accounting ,[address] [place], [place], [address] [place] [address] , [place] [facility] 8 15:14:40 Chronic obstructi ve pulmonary disease 91164632 Active Not Available [facility] 4 18:29:33 Tobacco dependenc e syndrome 39171688 Completed 02/18/2018 ROSANNA Herrera NP Attn: Accounting ,[address] [place], [address] , [facility] 8 15:14:51 Hyperlipi demia 16857805 Active Not Available [facility] 4 18:29:33 Hypertens jarad disorder 00899861 Active Not Available [facility] 4 18:29:33 Acute osteomyel itis of foot 393513793 Active Not Available [facility] 4 18:29:33 Acute osteomyel itis of ankle and/or foot 253113180 Completed 02/18/2018 ROSANNA Herrera NP Attn: Accounting ,[address] [place], [address] , [facility] 8 15:14:37 Foot pain 18964890 Completed 02/18/2018 ROSANNA Herrera NP Attn: Accounting ,[address] [place], [address] , [facility] 8 15:14:47 Osteomyel itis of ankle AND/OR foot [id number] Completed 02/18/2018 ROSANNA Herrera NP Attn: Accounting ,[address] [place], [address] , [facility] 8 15:14:44 Acute pharyngit is [id number] Completed 02/18/2018 ROSANNA Herrera NP Attn: Accounting ,[address] [place], [address] , [facility] 8 15:14:31 Notes:Some problems listed i n Document: #[id number] could not be added to this patient's chart. Please review this document and add these problems to the patient's chart manually as needed. Problem Notes None recorded. Procedures Surgical History Date Name Laterality Status Provider Name and Address Organization Details Recorded Time 03/18/20 Flexible Laryngoscopy completed Bubba Vizcaino MD [address] [place], [address], [facility] 03/18/2019 16:31:31 Imaging Results None recorded. Procedure Notes None recorded. Medical Equipment None Reported. Allergies No known drug allergies Medications Name Sig Start Date Stop Date Status Note LastModified by Organization Details LastModified Time amoxicillin 500 mg capsule Take 1 capsule every 12 hours by oral route after meals for 7 days. 02/18 completed Not Available Not Available Not Available levothyroxi ne 175 mcg tablet TAKE 1 TABLET BY MOUTH EVERY DAY active Not Available Not Available No t Available albuterol sulfate 0.63 mg/3 mL solution for nebulizatio n 12/12 completed Not Available Not Available Not Available levothyroxi ne 137 mcg tablet TAKE 1 TABLET BY MOUTH BEFORE BREAKFAST 10/17 completed Not Available Not Available Not Available carvedilol 25 mg tablet TAKE 1 TABLET BY MOUTH TWICE DAILY 10/17 completed Not Available Not Available Not Available doxycycline hyclate 100 mg capsule 10/17 completed Not Available Not Available Not Available carvedilol 12.5 mg tablet TAKE 1 TABLET BY MOUTH TWICE A DAY 2023 active Not Available Not Available Not Avai lable ipratropium 0.5 mg-albutero l 3 mg (2.5 mg base)/3 mL nebulizatio n soln active Not Available Not Available Not Available azithromyci n 250 mg tablet 03/21 completed Not Available Not Available Not Available pravastatin 40 mg tablet TAKE 1 TABLET BY MOUTH EVERY DAY active Not Available Not Available No t Available benzonatate 200 mg capsule TAKE ONE CAPSULE BY MOUTH THREE TIMES A DAY NEEDED FOR COUGH 12/12 completed Not Available Not Available Not Available hydrocodone 5 mg-acetamin ophen 325 mg tablet 02/18 completed Not Available Not Available Not Available lisinopril 20 mg tablet TAKE 1 TABLET BY MOUTH EVERY DAY 02/18 completed Not Available Not Available Not Available prednisone 20 mg tablet TAKE TWO TABLETS BY MOUTH DAILY FOR 5 DAYS 10/10 completed Not Available Not Available Not Available clindamycin HCl 150 mg capsule Take 2 capsules 3 times a day by oral route for 10 days. 02/18 completed Not Available Not Available Not Available amlodipine 5 mg tablet Take 1 tablet every day by oral route for 30 days. 02/18 completed Not Available Not Available Not Available ciprofloxac in 500 mg tablet 01/18 completed Not Available Not Available Not Available sulfamethox azole 800 mg-trimetho prim 160 mg tablet Take 1 tablet every 12 hours by oral route after meals for 10 days. 02/18 completed Not Available Not Available Not Available tramadol 50 mg tablet Take 1 tablet twice a day by oral route for 20 days. 03/18 completed Not Available Not Available Not Available vancomycin 1,000 mg intravenous injection 02/18 completed Not Available Not Available Not Available glimepiride 2 mg tablet TAKE 1 TABLET BY MOUTH DAILY active Not Available Not Available No t Available alprazolam 0.25 mg tablet TAKE 2 TABLETS VIA G-TUBE 3 TIMES A DAY NEEDED FOR ANXIETY 12/12 completed Not Available Not Available Not Available piperacilli n-tazobacta m 3.375 gram intravenous solution Inject 3.375 g 3 times a day by intraveno us route for 42 days. 02/18 completed Not Available Not Available Not Available amlodipine 10 mg tablet TAKE 1 TABLET BY MOUTH EVERY DAY. active Not Available Not Available No t Available levothyroxi ne 50 mcg tablet TAKE 1 TABLET BY MOUTH EVERY DAY active Not Available Not Available No t Available cephalexin 500 mg capsule Take 1 capsule twice a day by oral route for 10 days. 07/30 completed Not Available Not Available Not Available simvastatin 20 mg tablet TAKE 1 TABLET BY MOUTH EVERY EVENING WITH DINNER 02/18 completed Not Available Not Available Not Available ferrous sulfate 325 mg (65 mg iron) tablet Take 1 tablet every day by oral route for 30 days. 01/18 completed Not Available Not Available Not Available metformin 1,000 mg tablet TAKE 1 TABLET BY MOUTH TWICE DAILY 02/18 completed Not Available Not Available Not Available levothyroxi ne 125 mcg tablet Take 1 tablet every day by oral route for 30 days. 05/10 completed Not Available Not Available Not Available levothyroxi ne 150 mcg tablet Take 1 tablet every day by oral route before meals. 12/16 completed Not Available Not Available Not Available nicotine 21 mg/24 hr daily transdermal patch 02/18 completed Not Available Not Available Not Available doxazosin 4 mg tablet TAKE 1 TABLET BY MOUTH EVERY DAY active Not Available Not Available No t Available sodium chloride 0.9 % intravenous solution 02/18 completed Not Available Not Available Not Available triamterene 75 mg-hydrochl orothiazide 50 mg tablet TAKE 1 TABLET BY MOUTH EVERY DAY active Not Available Not Available No t Available vancomycin 10 gram intravenous solution 02/18 completed Not Available Not Available Not Available calcitriol 1 mcg/mL oral solution TAKE 0.25ML PER G-TUBE ONCE DAILY 05/20 completed Not Available Not Available Not Available cefuroxime axetil 500 mg tablet 02/18 completed Not Available Not Available Not Available albuterol sulfate HFA 90 mcg/actuati on aerosol inhaler INHALE 2 PUFFS EVERY 4 HOURS NEEDED FOR WHEEZING OR SHORTNESS OF BREATH 12/12 completed Not Available Not Available Not Available sodium polystyrene sulfonate oral powder active Not Available Not Available Not Available pioglitazon e 30 mg tablet TAKE 1 TABLET BY MOUTH EVERY DAY 2023 active Not Available Not Available Not Avai lable Avandia 4 mg tablet TAKE 1 TABLET BY MOUTH EVERY DAY 05/11 completed Not Available Not Available Not Available losartan 100 mg tablet TAKE 1 TABLET BY MOUTH EVERY DAY 2023 active Not Available Not Available Not Avai lable doxycycline hyclate 100 mg tablet TAKE ONE TABLET BY MOUTH TWICE A DAY 12/12 completed Not Available Not Available Not Available calcitriol 0.25 mcg capsule TAKE 1 CAPSULE BY MOUTH EVERY DAY active Not Available Not Available No t Available levothyroxi ne 112 mcg tablet Take 1 tablet every day by oral route for 30 days. 06/22 completed Not Available Not Available Not Available amoxicillin 875 mg-potassiu m clavulanate 125 mg tablet TAKE 1 TABLET BY MOUTH TWICE A DAY active Not Available Not Available No t Available nicotine 21mg/24hr-1 4mg/24hr-7m g/24hr daily transderm patches,seq uentl Apply 1 patch every 24 hours by transderm al route for 90 days. 02/18 completed Not Available Not Available Not Available calcium acetate(jamar sphate binders) 667 mg capsule TAKE 1 CAPSULE BY MOUTH THREE TIMES A DAY WITH FOOD active Not Available Not Available No t Available Chantix Starting Month Steven 0.5 mg (11)-1 mg (42) tablets in dose pack FOLLOW PACKAGE DIRECTION S 02/18 completed Not Available Not Available Not Available sevelamer carbonate 800 mg tablet TAKE 2 TABLETS BY MOUTH 3 TIMES A DAY WITH MEALS active Not Available Not Available No t Available AIRS Adult Aerosol Mask active Not Available Not Available Not Available vancomycin 2 gram/250 mL in 0.9 % sodium chloride intravenous solution 2grams via picc line daily with monitorin g serum Vancomyci n trough level and BMP twice per week x 6weeks. 02/18 completed Not Available Not Available Not Available OneTouch Verio test strips USE TO TEST BLOOD GLUCOSE LEVELS ONCE DAILY 2023 active Not Available Not Available Not Avai lable OneTouch Verio Meter active Not Available Not Available Not Available OneTouch Delica Plus Lancet 33 gauge USE DIRECTED active Not Available Not Available No t Available Thyquidity 20 mcg/mL oral solution Take 6.85 mL every day by oral route for 30 days. 10/17 completed Not Available Not Available Not Available Vitals Date Recorded Body height Body mass index (BMI) Body weight Heart rate Oxygen saturation Oxygen saturation in Arterial blood by Pulse oximetry Systolic blood pressure Diastolic blood pressure Provider Name and Address Organization Details Last Updated DateTime 3 177.8 cm 28.7 kg/m2 92227.4 7 g 101 /min 93 % 93 % 144 mm[Hg] 90 mm[Hg] Brigitte Solis MA [facility] 3 14:15:17 Date Recorded Body height Body mass index (BMI) Body weight Systolic blood pressure Diastolic blood pressure Provider Name and Address Organization Details Last Updated DateTime 10/10/2022 177.8 cm 27.1 kg/m2 78593.96 g 138 mm[Hg] 80 mm[Hg] Brigitte Solis MA [facility] 3 15:45:36 Date Recorded Oxygen saturation Oxygen saturation in Arterial blood by Pulse oximetry Heart rate Respiratory rate Provider Name and Address Organization Details Last Updated DateTime 10/10/2022 96 % 96 % 90 /min 14 /min MATHEUS GALLARDO Attn: Dasha wright,[address] [facility], [place], [address], [facility] 3 16:22:37 Date Recorded Body height Body mass index (BMI) Body weight Oxygen saturation Oxygen saturation in Arterial blood by Pulse oximetry Systolic blood pressure Diastolic blood pressure Provider Name and Address Organization Details Last Updated DateTime 3 177.8 cm 24.8 kg/m2 36799.4 8 g 97 % 97 % 132 mm[Hg] 80 mm[Hg] Brigitte Solis MA [facility] 3 10:48:06 Date Recorded Heart rate Provider Name an d Address Organization Details Last Updated DateTime 12/12/2022 96 /min Iglesia GALLARDO Attn: Accounting,[address] [place], [address], [facility] 12/16/2022 09:22:28 Date Recorded Body height Oxygen saturation Oxygen saturation in Arterial blood by Pulse oximetry Heart rate Body mass index (BMI) Body weight Systolic blood pressure Diastolic blood pressure Provider Name and Address Organization Details Last Updated DateTime 3 177.8 cm 97 % 97 % 60 /min 30 kg/m2 79178.8 1 g 124 mm[Hg] 72 mm[Hg] Brigitte Solis MA [facility] 3 16:06:30 Date Recorded Body height Body mass index (BMI) Body weight Heart rate Oxygen saturation Oxygen saturation in Arterial blood by Pulse oximetry Provider Name and Address Organization Details Last Updated DateTime 4 177.8 cm 33.3 kg/m2 799047. 43 g 72 /min 98 % 98 % Brigitte Solis MA [facility] 4 15:43:21 Date Recorded Systolic blood pressure Diastolic blood pressure Provider Name and Address Organization Details Last Updated DateTime 08/05/2023 132 mm[Hg] 84 mm[Hg] MATHEUS GALLARDO Attn: Accounting[address] [place], [address], [facility] 08/07/2023 08:19:58 Social History Question Answer Notes LastModified by Organizat ion Details LastModified Time Tobacco Smoking Status Former Smoker Quit 2016 CASSY Correa, [facility] 12/13/2019 11:12:59 Do You Have An Advance Directive? No Information not available 11/01/2020 What Is Your Level Of Alcohol Consumption? None [email or web address] Information not available 07/14/2015 Are You Blind Or Do You Have Difficulty Seeing? No Information not available 08/14/2020 What Is Your Level Of Caffeine Consumption? None Information not available 10/27/2019 In The 14 Days Before Symptom Onset, Have You Had Close Contact With A Laboratory-confi rmed COVID-19 While That Case Was Ill? No Information not available 11/01/2020 In The 14 Days Before Symptom Onset, Have You Had Close Contact With A Person Who Is Under Investigation For COVID-19 While That Person Was Ill? No Information not available 11/01/2020 Have You Been To An Area Known To Be High Risk For COVID-19? No Information not available 11/01/2020 Are You Currently Employed? No Information not available 11/01/2020 Are You Deaf Or Do You Have Serious Difficulty Hearing? Yes Sometimes Hard To Hear Information not available 08/14/2020 What Type Of Diet Are You Following? REGULAR Information not available 08/14/2020 Which Illicit Or Recreational Drugs Have You Used? N/a Information not available 10/27/2019 Do You Or Have You Ever Used E-cigarettes Or Vape? Never Used Electronic Cigarettes Information not available 05/11/2019 Are There Any Guns Present In Your Home? No Information not available 11/01/2020 Do You Have A High School Diploma Or Higher Education? No Information not available 11/01/2020 Do You Sometimes Have To Miss Your Medical Appointments Due To Difficult Getting Transportation? No Information not available 11/01/2020 Do You Feel Unfairly Treated Due To Things Such As Race, Age, Gender, Disability Or Some Other Reason? No Information not available 11/01/2020 Do You Feel Physically And Emotionally Safe While Living At Home? Yes Information not available 11/01/2020 Do You Feel Physically And Emotionally Safe In Your Neighborhood Or Other Public Places? Yes Information not available 11/01/2020 What Was The Date Of Your Most Recent Tobacco Screening? 12/12/2022 Information not available 12/12/2022 How Many Children Do You Have? 1 Information not available 11/01/2020 What Is Your Current Pack Years? 30ormorepacky ears Information not available 08/14/2020 Do You Use Protection During Sex? Always Information not available 11/01/2020 What Is Your Relationship Status? Information not available 11/01/2020 Do You Use Your Seat Belt Or Car Seat Routinely? Yes Information not available 11/01/2020 Are You Sexually Active? Yes Information not available 11/01/2020 Do You Have Smoke And Carbon Monoxide Detectors In Your Home? Yes Information not available 08/14/2020 Are You Passively Exposed To Smoke? No Information not available 08/14/2020 Do You Or Have You Ever Used Smokeless Tobacco? Never Used Smokeless Tobacco Information not available 05/11/2019 How Much Tobacco Do You Smoke? 2 PPD Information not available 05/11/2019 General Stress Level Low Information not available 10/27/2019 Do You Feel Stressed (tense, Restless, Nervous, Or Anxious, Or Unable To Sleep At Night)? [id number] Information not available 11/01/2020 Do You Use Any Illicit Or Recreational Drugs? No Information not available 08/14/2020 Do You Use Sunscreen Routinely? Yes Information not available 11/01/2020 Has Tobacco Cessation Counseling Been Provided? No Information not available 08/14/2020 On What Date Was Tobacco Cessation Counseling Provided? 12/12/2022 Information not available 12/12/2022 How Many Years Have You Smoked Tobacco? 37 Information not available 05/11/2019 Do You Or Have You Ever Used Any Other Forms Of Tobacco Or Nicotine? No Information not available 08/14/2020 Sex: Male Functional Status Question Answer Note LastModified by Organization D etails LastModified Time Are you able to care for yourself? Yes Information n ot available 08/14/2020 What is your exercise level? None Information not available 10/27/2019 Mental Status None recorded. Family History Relationship Description Onset Age of this Age Resolved Age Notes LastModified by Organization Details LastModified Time Mother Heart disease [email or web address] Not available 07/14 14:49:30 Medical History Condition Response Coronary Artery Disease N Other N High Blood Pressure Y Atrial Fibrillation N Thyroid Problems N Kidney or Bladder Problems N GI Problems N Depression N COPD N Blood Clots N Skin Problems N Eating Disorder N Anemia N Heart Attack (OK) N Anxiety Disorder N Diabetes Y Muscle, Joint, or Bone Problems N Seizures/Epilepsy N Acid Reflux (GERD) N Cancer N Stroke Y Asthma N Allergies N ADHD N Substance Abuse N High Cholesterol N Hepatitis N Liver Disease N Schizophrenia N Headaches N Heart Failure N Osteoporosis N Immunizations Vaccine Type Date Status Note Provider Nam e and Address Organization Details Recorded Time COVID-19 vaccine, vector-nr, rS-Ad26, PF, 0.5 mL 1 completed Not Available [facility] 06/30/2023 18:29:34 Influenza, split virus, quadrivalent, PF 8 completed Not Available [facility] 06/19/2019 02:35:58 pneumococcal polysaccharide PPV23 8 completed Not Available [facility] 06/19/2019 02:36:24 Influenza, split virus, quadrivalent, preservative 9 completed Not Available [facility] 06/19/2019 02:38:49 Pneumococcal conjugate PCV20, polysaccharide [id number] conjugate, adjuvant, PF 3 completed MATHEUS GALLARDO Attn: Accounting[address] [place], [address], [facility] 10/10/2022 16:21:02 Tdap 3 completed Shashi Pandey MD Attn: Accounting[address] [place], [address], [facility] 12/16/2022 11:06:47 Past Encounters Encounter ID Performer Location Encounter Start Date Encounter Closed Date Diagnosis/Indication Diagnosis SNOMED-CT Code Diagnosis ICD10 Code Diagnosis Note [id number] MD Mario Castanon (Adult Med) [address] [place] [address] 07/14/2015 14:10:04 07/14/2015 15:25:50 Diabetes mellitus 82051946 E13.65 Cellulitis and abscess of toe 618623701 M79.675 Chronic ob structive pulmonary disease 53132082 J44.9 Tobacco de pendence syndrome 76681836 F17.290 Hyperlipidemia 58875068 E78.5 Hypertensive disorder 38 593673 I10 [id number] Enriqueta MoralesGaneshRandall jaclyn Martin (Adult Med) [address] [place] [address] 08/03/2015 15:34:34 08/04/2015 17:17:33 Diabetes mellitus 51598159 E13.65 Acute oste omyelitis of ankle and/or foot 587889232 M86.179 Chronic ob structive pulmonary disease 85756389 J44.9 Hypertensive disorder 38 837551 I10 Tobacco de pendence syndrome 72607864 F17.290 Hyperlipidemia 82225890 E78.5 [id number] MD Mario Castanon (Adult Med) [address] [place] [address] 09/14/2015 15:08:31 09/14/2015 15:31:36 Diabetes mellitus 36781177 E13.65 Acute oste omyelitis of foot 029640051 M86.179 Chronic ob structive pulmonary disease 12296216 J44.9 Hyperlipidemia 78152693 E78.5 [id number] MD Mario Castanon (Adult Med) [address] [place] [address] 11/02/2015 11:52:57 11/02/2015 14:00:53 Chronic obstructive pulmonary disease 81535734 J44.9 Diabetes mellitus 767063 09 E13.65 Hyperlipidemia 43691309 E78.5 Tobacco de pendence syndrome 08629553 F17.290 Acute oste omyelitis of foot 367484439 M86.179 [id number] MD Mario Castanon (Adult Med) [address] [place] [address] 11/28/2015 15:15:45 11/28/2015 16:10:54 Diabetes mellitus 69572416 E13.65 Acute oste omyelitis of foot 263904568 M86.179 Chronic ob structive pulmonary disease 80505213 J44.9 Tobacco de pendence syndrome 42673913 F17.290 [id number] MD Mario Castanon (Adult Med) [address] [place] [address] 01/23/2016 15:10:01 01/23/2016 18:08:24 Diabetes mellitus 23078272 E13.65 Acute oste omyelitis of foot 489617340 M86.179 Hypertensive disorder 38 204349 I10 Chronic ob structive pulmonary disease 82080356 J44.9 Tobacco de pendence syndrome 31296384 F17.562 [id number] Enriqueta Flores is Mario (Adult Med) [address] [place] [address] 02/27/2016 15:32:49 02/27/2016 18:26:04 Diabetes mellitus 49121891 E13.65 Acute oste omyelitis of foot 777940193 M86.179 Chronic ob structive pulmonary disease 31815798 J44.9 Hyperlipidemia 70738281 E78.5 Tobacco de pendence syndrome 23936774 F17.880 [id number] ROSANNA Herrera NP [facility] [address] [place] [address] 02/18/2018 13:47:25 02/18/2018 16:30:25 Hypertensive disorder 69867972 I10 -Renew medication -Obtain CMP Diabetes mellitus 562554 09 E11.9 -Obtain labs-Jonna nue medication Hyperlipidemia 00138469 E78.5 -Continue medication -Obtain lab Active or passive immunization 283349456 Z23 -Fluzone and pneumovax given as ordered Screening for malignant neoplasm of colon 148293582 Z12.11 Diabetic foot ulcer 3710 [address]403 E11.40 -Start oral antibiotic s-Refer to podiatry-K eep area clean and covered-F/ u prn Hypothyroidism 35700572 E03.9 -Renew medication Anemia 422056854 D64.9 -Renew medication [id number] ROSANNA Herrera NP [facility] [address] [place] [address] 05/20/2018 15:18:12 05/20/2018 15:58:08 Hypertensive disorder 73034761 I10 -Obtain CMP-Contin ue medication Diabetes mellitus 864482 09 E11.9 -Obtain labs-Jonna nue medication Hyperlipidemia 98297221 E78.5 -Continue medication -Obtain lab Hypothyroidism 01900557 E03.9 -Obtain lab [id number] Linda Thao MA [facility] [address] [place] [address] 05/29/2018 10:03:06 05/29/2018 11:23:06 [id number] Kenzie Cabrera MD [facility] [address] [place] [address] 11/05/2018 15:58:27 11/16/2018 08:50:49 History of malignant neoplasm of trachea 378563381 Z85.12 Chronic ki dney disease 258875943 N18.9 Renal diso rder due to type 2 diabetes mellitus 356308694 E11.22 [id number] Bubba Vizcaino MD [facility] [address] [place] [address] 01/18/2019 12:03:51 03/18/2019 16:17:31 Hyperlipidemia 81031652 E78.5 [id number] Bubba Vizcaino MD [facility] [address] [place] [address] 03/18/2019 15:29:53 03/22/2019 15:48:46 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 Sees Ryan Carter for kidney problems. Hypothyroidism 67571688 E03.9 Essential hypertension 02863897 I10 Sleep apnea 25502247 G47 .30 Depression screening 171 600905 Z13.31 patient does not appear to be significan tly depressed. [id number] Bubba Vizcaino MD [facility] [address] [place] [address] 09/02/2019 09:14:57 10/05/2019 15:46:01 History of malignant neoplasm of larynx 874043384 Z85.21 follow after coronaviru s clears [id number] Kenzie Cabrera MD [facility] [address] [place] [address] 10/27/2019 09:36:35 11/02/2019 07:20:03 Hypertensive disorder 53482126 I10 Patient advised to limit salt and caffeine intake to maintain good blood pressure. Hypothyroidism 84488836 E03.9 will adjust medicine if TSH is not normal. Type 2 hermes betes mellitus 01477102 E11.65 Patient seems to have well controlled diabetes. discussed low fat, low carb diet, and encouraged exercise. Mixed hype rlipidemia due to type 2 diabetes mellitus 2057656427 03 E78.2 will consider raising dose if lipids are elevated [id number] Kenzie Cabrera MD [facility] [address] [place] [address] 12/13/2019 09:54:25 12/20/2019 08:04:31 Migraine 14449050 G43.909 Heat exhaustion 65654130 T67.5XXD [id number] Kenzie Cabrera MD [facility] [address] [facility] [place] [address] 08/14/2020 08:07:53 08/22/2020 21:52:13 Hypertensive disorder 78880249 I10 Patient advised to limit salt and caffeine intake to maintain good blood pressure. Hypothyroidism 38540910 E03.9 Type 2 hermes betes mellitus 10601129 E11.65 Patient seems to have well controlled diabetes. discussed low fat, low carb diet, and encouraged exercise. Mixed hype rlipidemia due to type 2 diabetes mellitus 3165198077 03 E78.2 [id number] Kenzie Cabrera MD [facility] [address] [place] [address] 11/01/2020 08:07:38 11/09/2020 07:33:14 Depression screening 123516901 Z13.31 patient does not appear to be significan tly depressed. Acute bronchitis 8767424 2 J20.9 Patient advised he may have had coronaviru s, even though he did get vaccinated on 08-04-2020. He took azithromyc in with improvemen t in symptoms. Type 2 hermes betes mellitus 74890234 E11.65 blood sugars well controlled even while ill. Taking pioglitazo ne, glimepirid e [id number] MATHEUS GALLARDO [facility] [address] [place] [address] 03/21/2021 16:14:34 03/27/2021 07:44:14 Mixed hyperlipidemia due to type 2 diabetes mellitus [id number] 03 E78.2 Patient takes Pravastati n 40mgLabs on 01/2021TC 184tri 172LDL 114HDL 40 Chronic ki dney disease 823759442 N18.[address] Davis for stage 4 kidney disease.[facility] visit on 03/14 and no changes were made. I had patient reach out for elevated potassium and labs will be faxed over as well. Labs 03/21/21: BUN 51, CR 3.47, GFR 18, Potassium 6.3 patient has appointmen t Hypothyroidism 90574104 E03.9 TSH elevated at 11. will increase dose and f/u in 2 weeks. Microalbuminuria 7539258 06 R80.9 02/24/21 alb/cr ratio is 319, abnormal. [facility]. Secondary hyperparathyroidism 46698189 E21.1 Patient taking calcitrol 12.5 Primary ma lignant neoplasm of supraglottis 66483505 C32.1 Pt has hx of ca of the throat he is not sure where. He had a trach no neck dissection he had RT. This was done 4-5 yrs ago at [place]. no recurrence follow in 6 months get old records. CT neck and chest done August and September 2020 show no residual cancer or recurrence . - follows ENT in [facility]? need records- Hypertensive disorder 38 400180 I10 140/90, not controlled . will have come back for BP check.Advi sed to check BP regularly with a goal of <140/90, if BP consistent ly >140/90, advised to contact clinic Discussed DASH diet Advised weight loss and diet is best way to control BP Advised 30 minutes of exercise minimum daily Advised tobacco, alcohol, caffeine all increase BP Advised goal for BP is <140/90 Screening for malignant neoplasm of colon 402131685 Z12.11 [id number] MATHEUS GALLARDO [facility] [address] [place] [address] 06/22/2021 07:51:27 06/25/2021 08:07:52 Hypothyroidism 29971765 E03.9 TSH elevated at 11. need to redo abs. ON 175 MCG LEVOTHYROX INE Chronic ki dney disease 400611903 N18.[address] Davis for stage 4 kidney disease. He has labs work fridayjul 26 from kidney doctor. 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 needs to have Dr Davis send all labs over as well. Labs 03/21/21: BUN 51, CR 3.47, GFR 18, Potassium 6.3 patient has appointmen t Mixed hype rlipidemia due to type 2 diabetes mellitus 1294662090 03 E78.2 Patient takes Pravastati n 40mgLabs on 01/2021TC 184tri 172LDL 114HDL 40 Microalbuminuria 8374702 06 R80.9 02/24/21 alb/cr ratio is 319, abnormal. [facility]. Secondary hyperparathyroidism 60271423 E21.1 Patient taking calcitrol 12.5 Primary ma lignant neoplasm of supraglottis 31115680 C32.1 Pt has hx of ca of the throat he is not sure where. He had a trach no neck dissection he had RT. This was done 4-5 yrs ago at [place]. no recurrence follow in 6 months get old records. CT neck and chest done August and September 2020 show no residual cancer or recurrence . - follows ENT in [facility]? need records Hypertensive disorder 38 989268 I10 Phone visit today. He is not checking BP at home. He is coming by for BP check.Advi sed to check BP regularly with a goal of <140/90, if BP consistent ly >140/90, advised to contact clinicDisc ussed DASH dietAdvise d weight loss and diet is best way to control BPAdvised 30 minutes of exercise minimum dailyAdvis ed tobacco, alcohol, caffeine all increase BPAdvised goal for BP is <140/90 Screening for malignant neoplasm of colon 454919697 Z12.11 cologuard negative 05/29/2021 Diabetes mellitus 534078 09 E11.22 A1C 5.7 01/2021. Home BG runs low hundreds. (110's). Denies cp, sob, headaches, increased thirst, increased hunger. Does ahve occasional foot pain but mild. needs DM foot check. order sent for DM eye exam - check sugars daily; goal fasting <130 and 1-2 hours after meal <180. call office if sugars falling under 70. Patient aware of hypoglycem ia symptoms.- discussed diet: avoid sugars, pasta, tortillas, bread, rice, potatoes- Exercise 30 min 5x week- diabetic eye exam- foot exam at next visit [id number] MATHEUS GALLARDO [facility] [address] [place] [address] 12/10/2021 15:53:06 12/11/2021 10:58:10 Abdominal pain 23075540 R10.9 pt with hx of asymptomat ic gallstones presents for pain x 2-3 weeks. feels like sharp pains that can last one hour and are worse at night. sitting helps. no alcohol or smoking x5 years. no diarrhea, constipati on,, nausea, vomiting. No pain elicited on exam. - comes in next week for labs- ER if pain worsens Screening for malignant neoplasm of respiratory tract 066269523 Z12.2 30+ years smoking and quit after cancer diagnosis. had CT chest last year showing multiple lung nodules measuring 2-3mm. repeat with LDCT. Essential hypertension 61702706 I10 BP elevated today 150/88. he ran out of amlodipine this week. needs refill. f/u one week with BP. - refill amlodipine - discussed gal BP 120/80- following dash/kidne y diet- f/u one week- labs in one week Depression screening 171 042516 Z13.31 negative Obesity 883517881 E66.9 BMI 33.3 [id number] MATHEUS GALLARDO [facility] [address] [place] [address] 12/17/2021 10:13:16 12/24/2021 12:14:36 Diabetes mellitus 75590922 E11.22 A1C 5.5 12/17/21, 5.7 01/2021. Home BG runs low hundreds. (110's). Denies cp, sob, headaches, increased thirst, increased hunger. Does ahve occasional foot pain but mild. needs DM foot check. order sent for DM eye exam medication regiment: pioglitazo ne 30mg qd, glimepirid e 2mg qd- statin: pravastati n 40mg qhs- ppsv23: 02/09/2022- diabetic eye exam: given order- foot exam: 12/17/21 normal monofilame nt, no hair present, hyperpigme ntation lower legs, diminished pulse b/l, first toe is amputated on right foot (2017) HIV screening 089770819 Z11.4 Hypertensive disorder 38 273484 I10 BP not controlled today. He will call nephrologi st and let them know.Advis ed to check BP regularly with a goal of <140/90, if BP consistent ly >140/90, advised to contact clinicDisc usselaura ARBOLEDA dietAdvise d weight loss and diet is best way to control BPAdvised 30 minutes of exercise minimum dailyAdvis ed tobacco, alcohol, caffeine all increase BPAdvised goal for BP is <140/90 Chronic ki dney disease stage 4 [id number] N18.4 Patient is following nephrologi st Dr Isaiah Davis. He has not been educated on kidney diet. spent some time discussing diet and given handouts for help at home. sending deputy director of nursing referral for added help. GFR 18, CR 3.47, Potassium 6.3 (03/21/22) at this time nephrology was contacted and patient did go see themrepeat labs today Current diet: drinking 3 mountain-d ew cans per daybreakfa st: 2 white toasts and 2eggslunch : sandwich ham and Martiniquais cheese townsend (2 slices of white bread)dinn er: pork chops Screening for malignant neoplasm of prostate 645412041 Z12.5 screening Hypothyroidism 46020614 E03.9 TSH elevated at 11.7 (10.700) need to redo abs. ON 175 MCG LEVOTHYROX INE Amputated big toe 167673 007 Z89.419 right big toe (2017) after ulcer [id number] MATHEUS GALLARDO [facility] [address] [place] [address] 05/10/2022 10:56:51 05/14/2022 13:26:19 Hypoxemia 644177455 R09.02 Patient presents for urgent care f/u where he had cellulitis . They dd not get US of R leg. States his leg is still swollen and has been this way for02 ranged from 55-82%. non-tachyc ardic, BP controlled PEX: right swollen leg, Decreased air movement on his left upper lobe. lips appear miguel, skin appears miguel but in no acute distress.P atient refuses EMS. He will drive to [place] on his own. Went over risks of , possible MCV. - RO PE- ER Obesity 023887624 E66.9 BMI 38.3 [id number] MATHEUS GALLARDO [facility] [address] [place] [address] 07/30/2022 14:08:51 07/30/2022 14:49:30 Unintentional weight loss 894265868 R63.4 70 ln weight loss since last visit liekly due to hospitaliz ation Overweight 086932463 E66 .3 BMI 28.7 Acute hypo xemic respiratory failure 193206737 J96.01 patient hospitaliz ed for acute hypoxemic resp failure from 05/2022- 06/18/2022. He is on 3L oxygen daytime and 6L night time.I called and made appointmen t for next week, August 07 at 2:45needs referral. on oxygen and trach Hypothyroidism 55795112 E03.9 TSH elevated at 11.7 (10.700) need to redo abs. ON 175 MCG LEVOTHYROX INE Tube feeding diet 997115 07 Z76.89 needs to seen surgeon Hospital i npatient stay within past 30 days 2236910821 106 Z76.89 [id number] MATHEUS GALLARDO [facility] [address] [facility] [place] [address] 10/10/2022 15:41:21 10/10/2022 16:12:22 Administration of pneumococcal vaccine 04464279 Z23 Falls 304484519 R29.6 1 fall every 2 weeks my right leg gets shaky and I fall. He now sits before he falls once he feels shaking. He is not . right leg starts checking lose balance x 1 month +no pain at all Serum thyr oid stimulating hormone level outside reference range 358842805 R79.89 recehcknep hrologist recently increased doseinsura nce would not cover solution to put into his peg Wheezing 85806866 R06.2 b/l lower lobesrecen tly completed steroidsaw pulmonolog ist 10/09/2022 Chronic ki dney disease stage 4 183843747 N18.4 Patient is following nephrologi Dr Isaiah Davis. recent labs in file from 08/2022next f/u in 6 monthsBP controlled but not at target of 120/80. [id number] Shashi busch MD [facility] [address] [place] [address] 12/12/2022 10:35:03 12/12/2022 13:32:33 Hypothyroidism 68988879 E03.9 not controlled . he crushes 150mcg tablet into feeding tube Before other feedings. spoke to pharmacist at [facility]. she states thyquidity 20mcg/ml and to prescribe 6.85 ml everyday. this medication however was not covered. - increase dose Type 2 hermes betes mellitus 18625050 E11.22 A1C 5.2% (11/2022), 5.2% (07/2022), 5.5% (09/2021)me dications: actos, glimepirid eFoot exam: next visitEye Exam: dueAlb/Cr: abnormalSt atin: pravaststi nACEi/ARB: losartanpn eumonia vaccine: [id number] 09/2022 Chronic ki dney disease 203300678 N18.[address] Davis for stage 4 kidney disease. He has labs work Fridayjul 26 from kidney doctor. 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 needs to have Dr Davis send all labs over as well. 12/12/2022 : BUN 78, cr 3.09, GFR 23 (will be faxed to his nephrologi ) 023: BUN 70, CR 2.5 GFR 29 (I called and faced nephrologi office with this lab): BUN 51, CR 3.47, GFR 18, Potassium 6.3 patient has appointmen t Administra tion of diphtheria, pertussis, and tetanus vaccine 666486204 Z23 History of laryngectomy 335295158 Z90.02 Patient was admitted at [facility] for Laryngecto my 11/20/22 (Follows Dr Hemphill). After spending some time in PACU he was admitted to neck surgery service. Right neck DOLORES drain remained at discharge and will be removed at discharge. speech therapy consulted and educated on using electrolar ynx. he requires high humidity trach. [id number] MATHEUS GALLARDO [facility] [address] [place] [address] 02/20/2023 15:48:54 02/20/2023 16:56:12 Cough 70043760 R05.9 c/o new cough Hypothyroidism 06162251 E03.9 back to PO. recehck thyroid - increase dose Edema of l ower extremity 838128885 R60.0 b/l 1+ pitting edema Tube feeding diet 684179 07 Z76.89 needs to seen surgeonnee ds to have PEG tube removed [id number] MATHEUS GALLARDO [facility] [address] [place] [address] 08/05/2023 15:28:12 08/05/2023 16:55:46 Low back pain 149722907 M54.50 one month of back pain better with walking and worse with sitting. if sitting , leaning forward helps. - PT- xray- f/u 6 weeks- ER if red flag sx discussed Heart failure 82457191 I 50.9 He was hospitaliz ed at [facility] on 05/07/2023 with complaint of worsening swelling over the past couple of months. He appeared to be in CHF. ProBNP was over 30,000, mildly elevated troponin. Dr. Saleh were asked to see him in consultati on. A new echo showed normal size left ventricle with moderate LVH and an EF of 50-55%, grade 1 diastolic dysfunctio n, but is severely enlarged right ventricle with reduced RV systolic function End stage renal failure on dialysis 352219176 N18.6 on dialysis MWFFgaurav Davis Health Concerns Section Related Observation LastModified by Organization Detai ls LastModified Time None Recorded Concern Status LastModified by Organization Details LastModified Time None Recorded Advance Directives Directive N: Payers Encounter Date Sequence Insurance Name Policy Number Policy Chopra Covered Member ID Chopra Member ID Guarantor Name 07/30/2022 1 [facility] ON OR AFTER 11/30/20 (MEDICAID REPLACEMENT - HMO) Bubba Saxena [id number] Bubba Saxena 10/10/2022 1 [facility] ON OR AFTER 11/30/20 (MEDICAID REPLACEMENT - HMO) Bubba Saxena [id number] Bubba Saxena 12/12/2022 1 [facility] ON OR AFTER 11/30/20 (MEDICAID REPLACEMENT - HMO) Bubba Saxena [id number] Bubba Saxena 02/20/2023 1 [facility] ON OR AFTER 11/30/20 (MEDICAID REPLACEMENT - HMO) Bubba Saxena [id number] Bubba Saxena 08/05/2023 1 [facility] ON OR AFTER 11/30/20 (MEDICAID REPLACEMENT - HMO) Bubba Saxena [id number] Bubba Saxena Notes Date Note Type Note Provider Name and Address Organization Details Recorded Time 07/30/2022 text/html Bubba is here fo r ER and inpatient f/u Patient was initially admitted at [place] in May and using 4L of oxygen and worsened to require bipap and ultimately intubated for hypercapnia. He was extubate May 17 and required re-intubation May 24. Patient was transferred [facility] from 06/06/2022- 06/18/2022 for acute hypoxic respiratory failure, aspiration pneumonia w/ pseudomonas requiring trach and PEG. He was transferred to [facility] ([facility] top) nurse comes in one last time tomorrow. will ask about tubing.patient is getting tube feedings. every 4 hours. patient has enough food for a while patient has trach. waiting to get into pulm. MATHEUS GALLARDO Attn: Accounting,[address] [facility], [place], [address], [facility] 08/02/2022 12:53:30 10/10/2022 text/html Bubba is a 57 YO M CKD IV, htn, obesity, chronic respiratory failure, COPD, pharyngeal cancer presenting for thyroid recheck and f/u PULMONOLOGY: SAW Dr Cabral at [facility] 10/09/2022. He is on 3L of 02 during day and 6 L at night. PFT scheduled. PET scan 08/2022 wnl. Patient states he feels much better. home pulse ox reads 96-98%. took steroids recently. kidneys: saw Dr Davis 08/2022 for his Stage 4 CKD. No changes in medications at this time. not concerned for increased BUN. Kidney doctor did increase his thyroid medication. trach: Patient sees ENT 10/11/22 for removal C/O of falling 2x in last month. His leg feels shaky and and gives out. He denies pain, LOC, dizziness before onset. He sits down before falling. denies hitting his head. denies feeling weak. Im very active and walk all day in the yard and I like to garden. MATHEUS GALLARDO Attn: Accounting,[address] [facility], [place], [address], [facility] 10/10/2022 16:23:23 12/12/2022 text/html Bubba is a 57 YO M CKD IV, htn, obesity, chronic respiratory failure, COPD, pharyngeal cancer presenting for thyroid recheck and f/u communication via body language as patient cannot talk Patient is compliant with all medication. He has followed up with all specialists. He is eager to get back to eating. States he is off oxygen. I did a review of record, I cannot find when they okay'd him for no 02. Bellow are specialist updates. Patient was admitted at [facility] for Laryngectomy 11/20/22. After spending some time in PACU he was admitted to neck surgery service. Right neck DOLORES drain remained at discharge and will be removed at discharge. speech therapy consulted and educated on using electrolarynx. he requires high humidity trach. Pulmonology SAW Dr Cabral at [facility] 10/09/2022. He is on 3L of 02 during day and 6 L at night. PFT scheduled. PET scan 08/2022 wnl. Patient states he feels much better. home pulse ox reads 96-98%. kidneys: saw Dr Davis 08/2022 for his Stage 4 CKD. No changes in medications at this time. not concerned for increased BUN. Kidney doctor did increase his thyroid medication. trach: saw ENT 10/11/22, Dr Parvez Hemphill at [facility] for recurrent aspiration pneumonia. This is first f/u in 4 years since treated for his carcinoma in 2017. Fiberoptic exam performed showing midline defect in epiglottis consistent with past radiation. CT chest will be taken in 3 months. Barium swallow 06/2021 shows significant dysfunction of larynx. Plan is to perform total laryngectomy to get back to eating by mouth. Per notes, he would be neck breather. permanent. He has f/u 12/13/2022 to discuss procedure. Shashi Pandey MD Attn: Accounting,[address] [facility], [place], [address], [facility] 12/16/2022 11:10:18 02/20/2023 text/html Bubba is a 58 YO M CKD IV, htn, obesity, COPD, pharyngeal cancer presenting for thyroid recheck and f/u Patient is compliant with all medication. He has followed up with all specialists. He is back to eating by mouth. He is also taking thyroid medication by mouth now. Pulmonology SAW Dr Cabral at [facility] 10/09/2022. He is on 3L of 02 during day and 6 L at night. PFT scheduled. PET scan 08/2022 wnl. Patient states he feels much better. home pulse ox reads 96-98% off oxygen. kidneys: saw Dr Davis 08/2022 for his Stage 4 CKD. No changes in medications at this time. not concerned for increased BUN. Kidney doctor did increase his thyroid medication. MATHEUS GALLARDO Attn: Accounting,[address] [facility], [place], [address], [facility] 02/24/2023 08:31:16 08/05/2023 text/html Bubba Saxena is a 58 y.o. male who comes to the office for a hospital follow up for right-sided heart failure He was hospitalized at [place] on 05/07/2023 with complaint of worsening swelling over the past couple of months. He appeared to be in CHF. ProBNP was over 30,000, mildly elevated troponin. Dr. Saleh were asked to see him in consultation. A new echo showed normal size left ventricle with moderate LVH and an EF of 50-55%, grade 1 diastolic dysfunction, but is severely enlarged right ventricle with reduced RV systolic function. He was ultimately discharged on 05/24/2023 with plans for outpatient hemodialysis. He has f/u with cardiology 10/2023. . He denies chest pain, light headedness or syncope. kidneys: He is doing hemodialysis Friday, Friday, Friday (Dr. Davis) and there is plans for fistula in coming days. GI: He is taking meds orally at this point and no longer using his G-tube which he says will be removed. He needs new referral. back pain: c/o of lower back pain x one month . walking makes it better. sitting makes it worse. denies saddle anesthesia or loss of control of bowels/urine. MATHEUS GALLARDO Attn: Accounting,[address] [facility], [place], [address], [facility] 08/07/2023 08:20:21
--- OUTSIDE RECORDS SUMMARY | 2024-08-05 10:26 | XMS_ITS | Clinical Summary ---
Author Organization [facility] Address [address] [place] [address] Care Team Providers Care Human Resources Operations Manager Name Role Phone Bronwyn Guardado Unavailable [phone] Kenny Pedro MD Unavailable [phone] iRcardo Pritchard MD Unavailable [phone] Naila Teague Primary Care Provider + Telly Freedman MD Unavailable + Danish Leo MD Unavailable [phone] Braden Griffin MD Unavailable [phone] Isaiah Davis MD Unavailable [phone] Aurelio Stovall MD Unavailable [phone] Parvez Hemphill MD Unavailable [phone] Nel Lamb RN Unavailable Allergies No known active allergies Medications pravastatin [...] (06/10/2022): Added automatically from request for surgery [id number] Hyperlipidemia 02/20/2022 Hyperkalemia 02/12/2022 Cardiomegaly 01/17/2022 Hypothyroidism [...] Date Resolved Date Encounter for follow-up surv [facility] of tongue cancer 12/23/2017 12/23/2017 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 Encounters Date Type Department Care Team Description 05/31/2024 8:49 AM CEMENT TRUCK 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 - 05/31/2024 11:59 PM CEMENT TRUCK LOADER Hospital Encounter [facility] at [address] [address] ESRD (end stage renal disease) on dialysis (HCC) (Primary Dx) Discharge Disposition: Discharge to home or self care 05/14/2024 Telephone [facility] at [address] [address] Olaf Paiz MD from Last 3 Months Surgical History Surgery Date Site/Laterality Comments AL LARYNGOSCOPY W/WO TRACHEO SCOPY ASPIRATION Direct Laryngoscopy - (Added by TW Conv) TRACHECTOMY 06/02/2022 - 06/01/2023 Trachectomy - (Added by TW Conv) TOTAL LARYNGECTOMY 11/20/[address] OP[address] PERCUTANEOUS ENDOSCOPIC GASTROSTOMY TOE AMPUTATION 06/02/2013 - 06/01/2014 Right big toe CENTRAL VENOUS CATHETER INSERTION 05/20/2023 Left LIJ permacath - Dr. Whitaker (removed 05/31/24 - Annie Estrada NP) DIALYSIS FISTULA CREATION 01/26/2024 Right RUE brachiocephalic AVF creation - Dr. Olaf Paiz Medical History Medical History Date Comments HL (hearing loss) Tinnitus Cancer (HCC) COPD (chronic obstructive pu lmonary disease) (HCC) Hyperlipidemia Hypertension CHF (congestive heart failure) (HCC) Lung disease Type 2 diabetes mellitus (HCC) Hypothyroidism History of blood transfusion 7 y ears ago Laryngeal cancer (HCC) had chemo and radiation Gastrostomy tube in place (HCC) per patient not using No natural teeth Machine dependent uses TruTone E mote EL to talk. Tracheostomy in place (HCC) ESRD (end stage renal disease) on dialysis (HCC) Dialysis patient perma cath- lef t upper chest Cellulitis BLE Family History Medical History Relation Name Comments Cancer Mother Family history of malignant neoplasm - (Added by TW Conv) Diabetes Mother Family history of diabetes mellitus - (Added by TW Conv) Heart disease Mother Relation Name Status Comments Mother Social History Tobacco Use [...] 06/07/2022 How often do you attend chur or congregation services? Never 06/07/2022 Do you belong to any clubs o r organizations such as buddhist groups, unions, fraternal or athletic groups, or [...] on file Sexual Orientation Not on file Obstetrics History Last Filed Vital Signs Vital Sign Reading Time Taken Comments Blood Pressure 148/82 05/31/2024 10:35 AM CEMENT TRUCK LOADER Pulse 76 05/31/2024 10:35 AM CEMENT TRUCK LOADER Temperature 36.7 C (98.1 F) 02/26/2024 12:33 PM CDT Respiratory Rate 18 05/31/2024 10:35 AM CEMENT TRUCK LOADER Oxygen Saturation 96% 05/31/2024 10:35 AM CEMENT TRUCK LOADER Inhaled Oxygen Concentration - - Weight 95 kg (209 lb 7 oz) 04/16/2024 7:48 AM CS T Height 165.1 cm (5' 5 ) 04/16/2024 7:48 AM CEMENT TRUCK LOADER Body Mass Index 34.85 04/16/2024 7:48 AM CEMENT TRUCK LOADER Plan of Treatment Health Maintenance Due Date Last Done Comments Albumin Creatinine Ratio, Urine 1965 Colon Cancer Screening-Colonoscopy 1965 Depression Screening 1965 Prostate Cancer Screening-PSA 1964 Dilated Eye Exam 1964 Foot Exam 1965 Hepatitis B Screening 01/06/1982 Regular Well Visit/Exam 18-64 01/06/1982 Zoster Vaccine (1 of 2) 01/06/1983 Pneumococcal vaccine <65 (2 of 2 - PCV) 02/18/2019 02/18/2018 Covid-19 Vaccine (2 - Jansse n risk series) 09/01/2020 08/04/2020 Hemoglobin A1C 05/22/2023 11/20/2022 Lipid Panel 11/21/2023 11/20/2022, 12/31, 09/07/2016, Additional history exists Influenza Vaccine (#1) 2024 9, 02/18/2018, 03/26/2017 eGFR 02/23/2025 02/24/2024, 08/11/2023, 07/28/2023, Additional history exists DTaP/Tdap/Td Vaccine (2 - Td or Tdap) 12/12/2032 12/12/2022 Hepatitis C Screening Completed 11/20/2022 Medical Devices Implanted Type Area Oyster Shucker Device Identifier Shelf Expiration Date Model / Serial / Lot Perma Cath Left: Chest Tracheostomy Throat [employer] CFEngineck Horizon 6 Cartridge Ligate Triangulate Cross Section Heart [id number] - Sn/A - [id number] Implanted:Qty: 5 on 11/20/2022 by Parvez Hemphill MD at [facility] N/A: Larynx [employer] [id number] 07/30/2026 [id number] / N/A / [id number] [employer] CF[employer]ck Investicare Ligate Triangulate Cross Section Wire Small Wide Latex Free [id number] - Sn/A - [id number] Implanted:Qty: 5 on 11/20/2022 by Parvez Hemphill MD at [facility] N/A: Larynx [employer] [id number] 03/04/2027 [id number] / N/A / [id number] [employer]; Larytube; Xtraflow Od15 Mm; Id12 Mm L55 Mm 5 Cassette 10; 7611 - Sn/A - [id number] Implanted:Qty: 1 on 11/20/2022 by Dipti Johnson MD at [facility] N/A: Throat [employer] 12/30/2024 [id number] / N/A / [id number] Procedures Procedure Name Priority Date/Time Associated Diagnosis [...] Susan JARVIS LAB BLOOD ORDERABLES Final Result MICHAEL [address] [facility] Department [place] [address] * Hemoglobin A1c (11/20/2022 10:01 PM CDT) Hgb A1C 4.9 4.0 - 5.6 % MICHAEL [facility] Estimated Average Glucose 94 mg/dL MICHAEL [facility] Comment: The ADA recommends reporting an estimated [...] Hemphill MD LAB BLOOD ORDERABLES Final Result [facility] Department [place] [address] * Lipid panel (11/20/2022 10:01 PM CDT) Cholesterol 182 30 - 199 mg/dL MIC[facility]EL [facility] Comment: Interpretive Data Ages < or = [...] revised on 2018. Triglycerides 106 <=149 mg/dL MIC[facility] Comment: Interpretive Data Ages < or = [...] revised on 2018. HDL 60 >=40 mg/dL MICHAEL [facility] Comment: Interpretive Data Ages < or = [...] on 2018. LDL, calculated 101 <=129 mg/dL [facility] Comment: Interpretive Data Ages < or = [...] revised on 2018. Non-HDL Cholesterol 122 mg/dL [facility] Comment: Interpretive Data Ages < or = [...] last revised on 2018. Chol/HDL ratio 3 [facility] Blood 11/20/2022 10:0 1 PM CDT 11/20/2022 10:18 PM CDT us Parvez Hemphill MD LAB BLOOD ORDERABLES Final Result [facility] Department [place] [address] * Hepatitis C antibody (11/20/2022 2:36 PM CDT) Hep C Ab Nonreactive Nonreactive MICHAEL [facility] Comment:Antibodies to HCV no t detected. Does NOT exclude the possibility of recent exposure to HCV. Current interpretive data was last revised on 22 Blood 11/20/2022 2:36 PM CDT 11/20/2022 3:14 PM CDT us Ale Moreau MD LAB MICROBIOLOGY - GENERAL ORDER RENATE Final Result Performing Organization Address City/State/[facility] Co de Phone Number [facility] [place] [address] from Last 3 Months or Most Recently Relevant to Health Maintenance Insurance [facility] Advance Directives For more information, please contact: [phone] * Full Code (Latest Code Status on File) Date Activated Date Inactivated Comments 11/20/2022 5:48 PM 11/25/2022 8:48 PM * Full Code Date Activated Date Inactivated Comments 06/06/2022 10:43 PM 06/27/2022 9:42 PM Care Teams Human Resources Operations Manager Relationship Specialty Start Date End Date Naila Teague PA [address] [facility] [address] [place] [address] PCP - General Physician Legal Coordinator 03/15/22 Bronwyn Guardado Au.D. Healthcare Manager Audiology 11/11/17 Kenny Pedro MD [phone] [place] [address] Radiation Oncologist Radiation Oncology 12/23/17 Ricardo Pritchard MD [address] [facility] [address] [place] [address] Medical Oncologist/Cadd Manager Medical Oncology 12/23/17 Telly Freedman MD [address] [place] [address] Referring Physician Family Medicine 06/17/22 Danish Leo MD [address] [place] [address] Consulting Physician Otolaryngology 10/12/22 Braden Griffin MD [address] [place] [address] Consulting Physician Cardiology 01/13/24 Isaiah Davis MD [address] [facility] 1 [place] [address] Consulting Physician Nephrology 01/13/24 Aurelio Stovall MD [address] [facility] [address] [place] [address] Consulting Physician Pulmonary Disease 01/13/24 Parvez Hemphill MD [address] [place] [address] Referring Physician Otolaryngology 01/13/24 Nel Lamb, RN [address] [facility] [address] [place], [place] [id number] Tape Editor 04/16/24
--- OUTSIDE RECORDS SUMMARY | 2024-08-05 10:26 | XMS_ITS | Encounter Summary ---
Author Organization [facility] Address [address] [place] [address] Phone Care Team Providers Care Grease Man Name Role Phone Kenzie Cabrera MD Primary Care Provider Reason for Visit * Reason Comments Med Refill Encounter Details Date Type Department Care Team (Late st Contact Info) Description 04/05/2019 Refill [facility] [address] [place] [address] [address] [place] [address] Isaiah Davis MD [address] [address] Social History Tobacco Use Types Packs/Day Years [...] on filedocumented in this encounter Care Teams Grease Man Relationship Specialty Start Date End Date Kenzie Cabrera MD [address] [place] [phone] PCP - General 08/10/19 documented as of this encounter
--- OUTSIDE RECORDS SUMMARY | 2024-08-05 10:26 | XMS_ITS | Clinical Summary ---
Author Organization [facility] Address [address] [place] [address] Care Team Providers Care Guest Relation Officer Name Role Phone Vince Green MD Unavailable Theodore Martin MD Primary Care Provider [phone] Allergies No known active allergies Medications metFORMIN 1000 MG tablet Take 1 tablet (1,000 mg total) by mouth 2 (two) times daily with meals. 07/23/2016 Active glimepiride 2 MG tablet Take 1 tablet (2 mg total) by mouth every morning before breakfast. 07/23/2016 Active simvastatin 20 MG tablet Take 1 tablet (20 mg total) by mouth nightly at bedtime. 07/23/2016 Active chlorthalidone 25 MG tablet Take 1 tablet (25 mg total) by mouth daily. 07/23/2016 Active losartan 100 MG tablet Take 1 tablet (100 mg total) by mouth daily. 07/23/2016 Active amlodipine 5 MG tablet Take 1 tablet (5 mg total) by mouth daily. 07/23/2016 Active Active Problems Problem Noted Date Diagnosed Date Chest pain 09/22/2016 Essential hypertension Dyslipidemia Diabetes mellitus ([facility]) Family History Medical History Relation Comments Stroke Brother 1 [place] Brother 2 Open Heart Brother 2 Stroke Brother 2 diabetes mellitus Other [place] Sister 1 Open Heart Sister 1 Stroke Sister 2 Relation Status Comments Brother 1 Alive Brother 2 Alive Father (Age 68) Mother (Age 47) Other Sister 1 Alive Sister 2 Alive Social History Tobacco Use Types Packs/Day Years Used Date Smoking Tobacco: Every Day Cigarettes 1 30 Smokeless Tobacco: Never Alcohol Use Standard Drinks/Week Comments No 0 (1 standard drink = 0.6 oz pur e alcohol) Sex and Gender Information Value Date Recorded Sex Assigned at Not on file Legal Sex Male 11:01 AM 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 FINISHER SEAMSTRESS Gender Identity Not on file Sexual Orientation Not on file Last Filed Vital Signs Vital Sign Reading Time Taken Comments Blood Pressure 128/82 07/23/2016 12:36 PM FUR FINISHER SEAMSTRESS Pulse 80 07/23/2016 12:36 PM FUR FINISHER SEAMSTRESS Temperature - - Respiratory Rate - - Oxygen Saturation 96% 07/23/2016 12:36 PM FUR FINISHER SEAMSTRESS Inhaled Oxygen Concentration - - Weight 109.3 kg (241 lb) 07/23/2016 12:36 PM FUR FINISHER SEAMSTRESS Height 175.3 cm (5' 9 ) 07/23/2016 12:36 PM FUR FINISHER SEAMSTRESS Body Mass Index 35.59 07/23/2016 12:36 PM FUR FINISHER SEAMSTRESS Plan of Treatment Health Maintenance Due Date Last Done Comments Colorectal Cancer Screening Colonoscopy (10 Years) 1964 Kidney Health Evaluation 1964 Annual Physical 01/06/1967 Pneumococcal Vaccine: Pediat rics (0 to 5 Years) and At-Risk Patients (6 to 64 Years) (1 of 2 - PCV) 01/06/1970 Diabetes: Retinopathy Eye Exam 01/06/1982 Hepatitis C 01/06/1982 DTaP, Tdap and Td Vaccines ( 1 - Tdap) 01/06/1983 Zoster Vaccines (1 of 2) 01/06/2014 Hemoglobin A1C 11/07/2016 05/09/2016 Lipid Panel 05/09/2017 05/09/2016 COVID-19 Vaccine ( - 2023-2 5 season) 2024 Influenza Adult (#1) 2024 RSV Immunization or 60+ Years (1 - 1-dose 75+ series) 01/06/2039 Meningococcal B Vaccine Aged Out No l onger eligible based on patient's age to complete this topic Meningococcal Vaccine Aged Out No rosalind eliot eligible based on patient's age to complete this topic RSV Immunizations Under 20 Months Aged Out No longer eligible based on patient's age to complete this topic Procedures Procedure Name Priority Date/Time Associated Diagnosis Comments LIPID PANEL Routine 05/09/2016 HEMOGLOBIN, GLYCOSYLATED Routine 05/09/2016 from Last 3 Months or Most Recently Relevant to Health Maintenance Results * LIPID PANEL (05/09/2016) CHOLESTEROL 125 HDL 40 TRIGLYCERIDES 142 LDL (CALCULATED) 57 05/09/2016 us Doc [facility] Final Result * HEMOGLOBIN, GLYCOSYLATED (05/09/2016) HGB A1C 5.6 05/09/2016 us Doc [facility] Final Result from Last 3 Months or Most Recently Relevant to Health Maintenance Care Teams Guest Relation Officer Relationship Specialty Start Date End Date Theodore Martin MD [address] [facility] 3 [place] [address] PCP - General 01/14/17 Vince Green MD [id number] [place] [address] [place] Consumer Services Consultant CARDIOVASCULAR DISEASE 11/01/15
--- OUTSIDE RECORDS SUMMARY | 2024-08-05 10:26 | XMS_ITS | Encounter Summary ---
Author Organization [facility] Address [address] [place] [address] Phone Care Team Providers Care Extension Course Counselor Name Role Phone Kenzie Cabrera MD Primary Care Provider Reason for Visit * Reason Comments Med Refill Encounter Details Date Type Department Care Team (Late st Contact Info) Description 09/20/2018 Refill [facility] [address] [facility] 1 [place] [address] Isaiah Davis MD [address] [address] Social History Tobacco Use Types [...] on filedocumented in this encounter Care Teams Extension Course Counselor Relationship Specialty Start Date End Date Kenzie Cabrera MD [address] [place] [phone] PCP - General 08/10/19 documented as of this encounter
--- OUTSIDE RECORDS SUMMARY | 2024-08-05 10:27 | XMS_ITS | Encounter Summary ---
Author Organization [facility] Address [address] [place] [address] Phone Care Team Providers Care Weigh And Charge Worker Name Role Phone Isaiah Davis MD Primary Care Provider Dave Squires MD Unavailable [phone] Encounter Details Date Type Department Care Team (Late st Contact Info) Description 03/16/2021 Telephone [facility] [address] [address] Dave Squires MD [facility] [address] [address] Social History Tobacco Use Types Packs/Day Years Used Date Smoking Tobacco: Never Smokeless Tobacco: Never Alcohol Use Standard Drinks/Week Comments Never 0 (1 standard drink = 0.6 oz pur e alcohol) AUDIT-C Answer Date Recorded Frequency of Alcohol Consumption Never 10/15/2018 Average Number of Drinks Not on file 019 Frequency of Binge Drinking Not on file 09/30 PHQ-2 Answer Date Recorded Total Score - Questions 1-9 0 08/31 Sex and Gender Information Value Date Recorded Sex Assigned at Not on file Legal Sex Male 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 documented in this encounter Plan of Treatment Not on file documented as of this encounter Visit Diagnoses Not on filedocumented in this encounter Additional Health Concerns Assessment Noted Time PHQ-9 Depression Total Score: 0 09/15/19 21 2:32 PM CDT documented as of this encounter Care Teams Weigh And Charge Worker Relationship Specialty Start Date End Date Isaiah Davis MD [address] [facility] [facility] [address] [place] [address] PCP - General Internal Medicine 09/15/19 Dave Squires MD [address] [place] [address] Consulting Physician Oncology 09/15/19 documented as of this encounter
--- OUTSIDE RECORDS SUMMARY | 2024-08-05 10:27 | XMS_ITS | Encounter Summary ---
Author Organization [facility] Address [address] [place] [address] Phone Care Team Providers Care Senior Technical Editor Name Role Phone Isaiah Davis MD Primary Care Provider Dave Squires MD Unavailable Encounter Details Date Type Department Care Team (Late st Contact Info) Description 05/01/2020 Telephone [facility] [address] [address] Dave Squires MD [address] [place] [address] Social History Tobacco Use Types Packs/Day Years Used Date Smoking Tobacco: Never Smokeless Tobacco: Never Alcohol Use Standard Drinks/Week Comments Never 0 (1 standard drink = 0.6 oz pur e alcohol) AUDIT-C Answer Date Recorded Frequency of Alcohol Consumption Never 10/15/2018 Average Number of Drinks Not on file 019 Frequency of Binge Drinking Not on file 09/30 PHQ-2 Answer Date Recorded PHQ-2 Score 0 01/29/2019 Sex and Gender Information Value Date Recorded Sex Assigned at Not on file Legal Sex 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 RAFT LOAD CONTROLLER documented in this encounter Plan of Treatment Not on file documented as of this encounter Visit Diagnoses Not on filedocumented in this encounter Additional Health Concerns Assessment Noted Time PHQ-9 Depression Total Score: 0 01/22/20 19 1:48 PM CDT documented as of this encounter Care Teams Senior Technical Editor Relationship Specialty Start Date End Date Isaiah Davis MD [address] [facility] [address] [place] [address] PCP - General Internal Medicine 09/15/19 Dave Squires MD [address] [place] [address] Consulting Physician Oncology 09/15/19 documented as of this encounter
--- OUTSIDE RECORDS SUMMARY | 2024-08-05 10:27 | XMS_ITS ---
Author Organization [facility] Address [address] [place] [address] Care Team Providers Care Lumber Sales Supervisor Name Role Phone Bronwyn Guardado Unavailable [phone] Kenny Pedro MD Unavailable [phone] Ricardo Pritchard MD Unavailable [phone] Naila Teague Primary Care Provider + Telly Freedman MD Unavailable + Danish Leo MD Unavailable [phone] Braden Griffin MD Unavailable [phone] Isaiah Davis MD Unavailable [phone] Aurelio Stovall MD Unavailable [phone] Parvez Hemphill MD Unavailable [phone] Nel Lamb RN Unavailable Active Problems Problem Noted Date Diagnosed Date [...] (06/10/2022): Added automatically from request for surgery [id number] Hyperlipidemia 02/20/2022 Hyperkalemia 02/12/2022 Cardiomegaly 01/17/2022 Hypothyroidism [...] diabetic kidney complication 10/02/2017 Chest pain 09/22/2016 Current Treatment and Therapy Plans No current plan information found. Other Current Plans Wound care, iodoform packing, dressing changes* Plan Start Date:02/26/2024 Plan Provider:Annie Estrada NP Linked Problems Open wound of right upper ar m, initial encounter Treatment Medications No medications scheduled. Past Treatment and Therapy Plans No past plan information found. 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
--- OUTSIDE RECORDS SUMMARY | 2024-08-05 10:27 | XMS_ITS | Encounter Summary ---
Author Organization [facility] Address [address] [place] [address] Care Team Providers Care Monogram Technician Name Role Phone Bronwyn Guardado Unavailable [phone] Kenny Pedro MD Unavailable [phone] Ricardo Pritchard MD Unavailable [phone] Naila Teague Primary Care Provider + Telly Freedman MD Unavailable + Danish eLo MD Unavailable [phone] Braden Griffin MD Unavailable [phone] Isaiah Davis MD Unavailable [phone] Aurelio Stovall MD Unavailable [phone] Parvez Hemphill MD Unavailable [phone] Nel Lamb RN Unavailable Encounter Details Date Type Department Care Team (Late st Contact Info) Description 05/14/2024 [email or web address] [address] [facility] [address] [place] [address] Olaf Paiz MD [address] [facility] [address] [place] [address] Social History Tobacco Use Types Packs/Day Years [...] often do you attend chur ch or orthodoxy services? Never 06/07/2022 Do you belong to any clubs o r organizations such as yazidism groups, unions, fraternal or athletic groups, or [...] on filedocumented in this encounter Care Teams Monogram Technician Relationship Specialty Start Date End Date Naila Teague PA [address] [facility] [address] [place] [address] PCP - General Physician Distribution Warehouse Manager 03/15/22 Bronwyn Guardado Au.D. Coater [employer] Linings Audiology 11/11/17 Kenny Pedro MD [address] [facility] [address] [place] [address] Radiation Oncologist Radiation Oncology 12/23/17 Ricardo Pritchard MD [address] [facility] [address] [place] [address] Medical Oncologist/Biomathematician Medical Oncology 12/23/17 Telly Freedman MD [address] [place] [address] Referring Physician Family Medicine 06/17/22 Danish Leo MD [address] [place] [address] Consulting Physician Otolaryngology 10/12/22 Braden Griffin MD [address] [id number] Consulting Physician Cardiology 01/13/24 Isaiah Davis MD [address] [facility] [address] [place] [address] Consulting Physician Nephrology 01/13/24 Aurelio Stovall MD [address] [address] Consulting Physician Pulmonary Disease 01/13/24 Parvez Hemphill MD [facility] [address] [place], [place] [id number] Referring Physician Otolaryngology 01/13/24 Nel Lamb, RN [address] [facility] [address] [place] [address] Clinician Oncology 04/16/24 documented as of this encounter
--- OUTSIDE RECORDS SUMMARY | 2024-08-05 10:27 | XMS_ITS | Clinical Summary ---
Author Organization [facility] Address [address] [place] [address] Phone Care Team Providers Care Business Process Expert Name Role Phone Isaiah Davis MD Primary Care Provider [phone] Dave Squires MD Unavailable [phone] Allergies No known active allergies Medications glimepiride (AMARYL) 2 MG Tablet Take 2 mg by mouth every morning. Active pioglitazone (ACTOS) 30 MG Tablet pioglitazone 30 mg tablet Take 1 tablet every day by oral route. Active amLODIPine (NORVASC) 10 MG Tablet amlodipine 10 mg tablet 8 Active losartan (COZAAR) 100 MG Tablet losartan 100 mg tablet 7 Active calcitRIOL (ROCALTROL) 0.25 MCG Capsule calcitriol 0.25 mcg capsule 8 Active pravastatin (PRAVACHOL) 40 MG Tablet pravastatin 40 mg tablet 8 Active albuterol 108 (90 Base) MCG/ACT Aerosol Solution 3 Active ALPRAZolam (XANAX) 0.5 MG Tablet Take 0.5 mg by mouth. 3 Active carvedilol (COREG) 12.5 MG Tablet 3 Active levothyroxine (SYNTHROID) 175 MCG Tablet 3 Active Active Problems Problem Noted Date Diagnosed Date Hyperlipidemia 02/20/2022 Essential hypertension 02/20/2022 Hyperkalemia 02/12/2022 Cardiomegaly 01/17/2022 Laryngeal cancer 10/15/2018 Hypothyroidism 10/15/2018 Dyslipidemia 06/10/2018 Diabetes mellitus 06/10/2018 Chronic obstructive lung disease 06/10/2018 Hyperparathyroidism 02/13/2018 Overview (02/20/2022): Last Assessment & Plan: PTH up at 253 in 09/2017. 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 Secondary hyperparathyroidism of renal origin Chronic kidney disease, stage 4 (severe) 018 Tinnitus, bilateral 11/11/2017 Sensorineural hearing loss, bilateral 11/11/2017 Overview (02/20/2022): Last Assessment & Plan: - progression of high-frequency hearing loss and now symptomatic - recommend hearing aid trial - patient instructed to call me if there are any acute changes as there may be a role for steroids Immunizations Immunization Administration Dates Next Due Influenza Vaccine, Quadrivalent, PF 02/18/2018 Influenza, Injectable, Quadrivalent 05/11/2019 Pneumococcal Vaccine Adult - 23 Valent 8 Family History Medical History Relation Name Comments Aneurysm Father Diabetes Mother Relation Name Status Comments Father Mother Social History Tobacco Use Types Packs/Day [...] Recorded Total Score - Questions 1-9 0 08/01 Sex and Gender Information Value Date Recorded Sex Assigned at Not on file 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 Sex 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 Gender Identity Not on file Sexual Orientation Not on file Last Filed Vital Signs Vital Sign Reading Time Taken Comments Blood Pressure 170/100 02/06/2023 10:19 AM CDT Pulse 86 02/06/2023 10:19 AM CDT Temperature 36.6 C (97.8 F) 02/06/2023 10:19 AM CDT Respiratory Rate 18 02/06/2023 10:19 AM CDT Oxygen Saturation 97% 02/06/2023 10:19 AM CDT Inhaled Oxygen Concentration - - Weight 89 kg (196 lb 4.8 oz) 02/06/2023 10:19 AM CDT Height 175.3 cm (5' 9 ) 02/06/2023 10:19 AM CDT Body Mass Index 28.99 02/06/2023 10:19 AM CDT Plan of Treatment Health Maintenance Due Date Last Done Comments Diabetes: Eye Exam 1965 Diabetes: Foot Exam 1965 Hepatitis C Virus (HCV) Screening 1965 Zoster Immunization (1 of 2) 01/06/1983 Colonoscopy 01/06/2009 Colorectal Cancer Screening 01/06/2009 Cologuard 01/06/2014 Immunochemical Fecal Occult Blood 01/06/2014 PSA Discussion 01/06/2019 SARS-COV-2 Immunization (2 - Popeye risk series) 09/01/2020 08/04/2020 Diabetes: Hemoglobin A1c 05/22/2023 11/20/2022, 12/0 01/2016 Diabetes: Nephropathy Screening 08/23/2023 08/22/2022, 02/21/2022, 08/23/2021, Additional history exists Respiratory Syncytial Virus (RSV) Immunization (Adult) (1 - Risk 60-74 years 1-dose series) 2024 Influenza Immunization (#1) 2024 05/11/2019, 0 02/18/2018 Pneumococcal Immunization (50+ years) Completed 10/10/2022, 02/18/2018 Pneumococcal Immunization Combined Discontinued 10/10/2022, 02/18/2018 DTaP/Tdap/Td Immunization Discontinued 12/12/2022 TdaP Immunization Completed 12/12/2022 Hepatitis B Immunization Aged Out No longer eligible based on patient's age to complete this topic Meningococcal Immunization (ACWY) Aged Out No longer eligible based on patient's age to complete this topic Rotavirus Immunization Aged Out No lo nger eligible based on patient's age to complete this topic Procedures Procedure Name Priority Date/Time Associated Diagnosis Comments CMP (COMPREHENSIVE METABOLIC PANEL) Routine 08/22/2022 11:00 AM CDT Laryngeal cancer (HCC) Other specified hypothyroidism from Last 3 Months or Most Recently Relevant to Health Maintenance Results * (ABNORMAL) CMP (COMPREHENSIVE METABOLIC PANEL) (08/22/2022 11:00 AM CDT) Glucose 119(H) 70 - 105 mg/dL [facility] Blood Urea Nitrogen 68(H) 7 - 25 mg/dL [facility] Creatinine 2.7(H) 0.7 - 1.3 mg/dL [facility] Sodium 139 136 - 145 mEq/L [facility] Potassium 4.5 3.5 - 5.1 mEq/L [facility] Chloride 99 98 - 107 mEq/L [facility] Bicarbonate 30 21 - 31 mEq/L [facility] Total Bilirubin 0.5 0.3 - 1.0 mg/dL [facility] Alk. Phosphatase 90 34 - 104 U/L [facility] Aspartate Aminotransferase 21 13 - 39 U/L [facility] Alanine Aminotransferase 16 7 - 52 U/L [facility] Total Protein 6.4 6.4 - 8.9 g/dL [facility] Albumin 3.8 3.5 - 5.7 g/dL [facility] Calcium 10.0 8.6 - 10.3 mg/dL [facility] Anion Gap 14.5 7.0 - 15.0 mEq/L [facility] Globulin 2.6 2.0 - 3.5 g/dL [facility] EGFR 26(L) >60 ml/min/1. 73m2 [facility] Comment: This eGFR is calculated using 2020 CKD-EPI Creatinine equation without race modifier based on the NKF-ASN task force recommendations Blood 08/22/2022 11:0 0 AM CDT Narrative [facility] - 08/22/2022 11:43 AM CDT IS THE PATIENT REQUIRED TO BE FASTING FOR 8 HOURS?->No Release to patient->Immediate us Patrick Ingram PAC CHEMISTRY ORDERABLES Final Result [facility] [address] [address], [place] [phone] from Last 3 Months or Most Recently Relevant to Health Maintenance Insurance MEDICAID [employer] Advance Directives * Full Code (Latest Code Status on File) Date Activated Date Inactivated Comments 07/26/2015 10:53 AM Care Teams Business Process Expert Relationship Specialty Start Date End Date Isaiah Davis MD [address] [facility] [address] [place] [address] PCP - General Internal Medicine 09/15/19 Dave Squires MD [facility] [place] [address] Consulting Physician Oncology 09/15/19
--- OUTSIDE RECORDS SUMMARY | 2024-08-05 10:27 | XMS_ITS | Clinical Summary ---
Author Organization [facility] Address [address] [place] [address] Care Team Providers Care Manager Grant Name Role Phone Osmar Manley MD Primary Care Provider [phone] Source Comments [facility],non-owned Affiliates and Associated Physician Practices is amultiple site organization consisting of ambulatory clinics and hospital sitesin [place], [place], [place] and [place]. This disclosure is being madepursuant to the Care Everywhere program and may not contain all information available regarding this patient. Last updated 18.[employer] Social History Tobacco Use Types Packs/Day Years Used Date Smoking Tobacco: Never Assessed Sex and Gender Information Value Date Recorded Sex Assigned at Not on file Gender Identity Not on file Sexual Orientation Not on file Plan of Treatment Health Maintenance Due Date Last Done Comments COLOGUARD (AGES 45-75) - COL ON CA SCREENING 1964 COLON MONITORING 1964 COLONOSCOPY - COLON CA SCREENING 1964 CT COLONOGRAPHY - COLON CA SCREENING 1964 Colorectal Cancer Screening 1964 FIT - COLON CA SCREENING 1964 FLEX SIG - COLON CA SCREENING 1964 LIPID TESTING 1964 HIV SCREENING 01/06/1979 HEPATITIS C SCREENING 01/02/1982 DTAP/TDAP/TD VACCINES (1 - Tdap) 01/06/1983 PNEUMOCOCCAL VACCINE 50+ (1 of 2 - PCV) 01/06/1983 PNEUMOCOCCAL VACCINE (1 of 2 - PCV) 01/06/1983 HEPATITIS B VACCINE (1 of 3 - Risk Dialysis 4-dose series) 1984 ZOSTER VACCINE (1 of 2) 01/06/2014 COVID-19 VACCINE (2 - 2023-2 5 season) 2024 08/04/2020 INFLUENZA VACCINE (#1) 2024 9, 02/18/2018 DEPRESSION SCREENING 06/02/2024 Respiratory Syncytial Virus (RSV) Vaccine Pt: or over 60 yrs (1 - 1-dose 75+ series) 01/06/2039 HIB VACCINE Aged Out No longer eligi ble based on patient's age to complete this topic HPV VACCINE Aged Out No longer eligi ble based on patient's age to complete this topic MENINGOCOCCAL (Group B) VACCINE Aged Out No longer eligible b ased on patient's age to complete this topic MENINGOCOCCAL VACCINE Aged Out No rosalind eliot eligible based on patient's age to complete this topic Care Teams Manager Grant Relationship Specialty Start Date End Date Osmar Manley MD [address] [place] [address] PCP - General 07/05/22
--- OUTSIDE RECORDS SUMMARY | 2024-08-05 10:27 | XMS_ITS | CONTINUITY OF CARE DOCUMENT ---
Author Name dmitry, edmondvictor hugo Address Unknown Organization [facility] Address [address] [facility] [address] [facility] [address] [place] [address] Phone [phone] Care Team Providers Care Liquefied Natural Gas Operator Name Role Phone Kwaku Alcocer MD Unavailable [phone] RICHIE RICO PA-C Unavailable RICHIE RICO PA-C Unavailable [phone] INSURANCE PROVIDERS Payer name Policy type / Coverage type [place] red republican ID [place] MEDICAID (2) Medicaid [id number]
[2024-08-05 11:33] LABS: Alveolar/Arterial O2 Gradient 74.5 mmHg; Base Excess ABG 2.5 mEq/l (+/-2.0); Carboxyhemoglobin 1.5 % THb (0-2.0); Fractional Inspired Oxygen 35 %; HCO3 ABG 32.9 mEq/l (22.0-26.0); Methemoglobin ABG 0.3 %THb (0-1.5); Oxygen Saturation ABG 92.9 % (95.0-100.0); Oxyhemoglobin 91.3 % THb (90.0-100.0); PO2 ABG 80.2 mmHg (80.0-100.0); PO2 FiO2 Ratio Arterial Blood 2.29 %; Reduced Hemoglobin 6.9 %THb (0-5.0)
[2024-08-05 11:35] LABS: Device HIGH FLOW THERAPY; Modified Allen's Test Pass; PCO2 ABG 81.6 mmHg (35.0-45.0); Site Drawn LEFT RADIAL; pH ABG 7.223 (7.350-7.450)
--- NOTE | 2024-08-05 12:26 | ECG_ITS ---
Test Date: 2024-08-05 12:38:53 Measurements Intervals [place] Rate: 74 P: 0 UT: 0 QRS: 148 QRSD: 74 T: -60 QT: 351 QTc: 390 Interpretive Statements SINUS RHYTHM INTRAVENTRICULAR CONDUCTION DELAY ANTEROLATERAL MYOCARDIAL INFARCTION , OF INDETERMINATE AGE [40+ ms Q WAVE IN I/aVL/V3-V6] Compared to ECG 08/05/2024 09:22:12 Myocardial infarct finding still present Electronically Signed On 08-05-2024 14:11:53 PACKAGER by Serafin Fonseca M.D.
[2024-08-05 13:40] LABS: Troponin I 0.129 ng/mL (0.000-0.034)
[2024-08-05] MEDS: FUROSEMIDE INJ 40 MG/4 ML VIAL IV PUSH (13:41)
--- NOTE | 2024-08-05 13:45 | PC.NURSE ---
Dr. Arroyo and MATHEUS [place] inserted 6.5 ET tube in trach stoma at 1343. placement is 14cm at securement device. BiPAP initiated by ED respiratory directly after. pt declines any discomfort.
--- NOTE | 2024-08-05 15:43 | PC.NURSE ---
provider consults ED respiratory to pull back ET tube 2cm. placement is now 12cm at the trach securement strap.
[2024-08-05 15:49] LABS: Alveolar/Arterial O2 Gradient 284.7 mmHg; Base Excess ABG 1.5 mEq/l (+/-2.0); Carboxyhemoglobin 1.2 % THb (0-2.0); Fractional Inspired Oxygen 80 %; HCO3 ABG 30.5 mEq/l (22.0-26.0); Methemoglobin ABG 0.2 %THb (0-1.5); Oxygen Content ABG 19.2 %vol (16.0-22.0); Oxygen Saturation ABG 99.3 % (95.0-100.0); Oxyhemoglobin 98.2 % THb (90.0-100.0); PO2 ABG 213.2 mmHg (80.0-100.0); PO2 FiO2 Ratio Arterial Blood 2.66 %; Reduced Hemoglobin 0.4 %THb (0-5.0); Total Hemoglobin 13.6 g/dL (12.0-18.0)
[2024-08-05 15:50] LABS: Device VENTILATOR; Modified Allen's Test Pass; PCO2 ABG 69.1 mmHg (35.0-45.0); Site Drawn LEFT RADIAL; pH ABG 7.262 (7.350-7.450)
[2024-08-05 15:51] LABS: Arterial Blood Gas Ventilator rate 16 /MIN
[2024-08-05 15:52] LABS: Arterial Blood Gas PEEP 6 cmH2O; Arterial Blood Gas Vent Mode PSIMV; Peak Inspiratory Pressure 12 cmH2O
--- NOTE | 2024-08-05 15:56 | ECG_ITS ---
Test Date: 2024-08-05 16:16:19 Measurements Intervals [place] Rate: 66 P: 114 ID: [id number] QRS: 112 QRSD: 118 T: -44 QT: 399 QTc: 418 Interpretive Statements SINUS RHYTHM WITH FIRST DEGREE AV BLOCK POSSIBLE ANTERIOR MYOCARDIAL INFARCTION , PROBABLY OLD [30 ms Q WAVE IN V3/V4, OR R < 0.2 mV IN V4] MODERATE T-WAVE ABNORMALITY, CONSIDER INFERIOR ISCHEMIA [-0.1+ mV T WAVE IN II/aVF] Compared to ECG 08/05/2024 12:38:53 NO SIGNIFICANT CHANGES Electronically Signed On 08-06-2024 16:19:47 SURGICAL SALES REPRESENTATIVE by Keily Saleh M.D.
--- NOTE | 2024-08-05 16:39 | PC.NURSE ---
called pt at 1634 to give update and answered all questions.
[2024-08-05 16:45] LABS: Troponin I 0.132 ng/mL (0.000-0.034)
[2024-08-05] MEDS: SODIUM CHLORIDE 0.9% IV 500 ML 999 ML IV CONT ×2 (17:30→21:02)
--- NOTE | 2024-08-05 17:31 | PC.NURSE ---
urinary catheter placed and no urine output at this time. pt declines pain and states they usually produce urine 1-2 times a day.
--- NOTE | 2024-08-05 18:04 | PC.NURSE ---
pt transferred to hospital bed for comfort while waiting for transfer
[2024-08-05 18:31] LABS: Glucose Point of Care 80 mg/dl (65-105)
[2024-08-05] MEDS: DEXTROSE 50% 25 GM/50 ML SYRINGE IV PUSH (18:45)
[2024-08-05] MEDS: SODIUM CHLORIDE 0.9% IV 1,000 ML 125 ML IV CONT (19:15)
[2024-08-05 19:42] LABS: Alveolar/Arterial O2 Gradient 178.7 mmHg; Base Excess ABG 2.1 mEq/l (+/-2.0); Fractional Inspired Oxygen 50 %; HCO3 ABG 30.5 mEq/l (22.0-26.0); Oxygen Content ABG 17.8 %vol (16.0-22.0); Oxygen Saturation ABG 96.8 % (95.0-100.0); Oxyhemoglobin 96.1 % THb (90.0-100.0); PO2 ABG 102.9 mmHg (80.0-100.0); PO2 FiO2 Ratio Arterial Blood 2.06 %; Total Hemoglobin 13.1 g/dL (12.0-18.0)
[2024-08-05 19:46] LABS: PCO2 ABG 66.6 mmHg (35.0-45.0); pH ABG 7.279 (7.350-7.450)
[2024-08-05 19:47] LABS: Arterial Blood Gas PEEP 6 cmH2O; Arterial Blood Gas Vent Mode PSIMV; Arterial Blood Gas Ventilator rate 16 /MIN; Device VENTILATOR; Modified Allen's Test Pass; Peak Inspiratory Pressure 18 cmH2O; Site Drawn LEFT RADIAL
--- NOTE | 2024-08-05 20:14 | PC.NURSE ---
NG tube attempted on patient x3 with no success. notified Dr. Castro
--- NOTE | 2024-08-05 23:08 | PC.NURSE ---
care and report given to VASQUEZ Jordan. all questions answered.
[2024-08-06] VITALS (78 sets, daily range): BP systolic 72–176; BP diastolic 58–96; PULSE 50–97; RESP 0–21; TEMP 36.3–36.6; O2SAT 91–98
[2024-08-06] MEDS: SODIUM CHLORIDE 0.9% IV 500 ML 999 ML IV CONT
--- NOTE | 2024-08-06 00:36 | PC.NURSE ---
EDP aware of blood pressures; VORB for a liter of normal saline and to obtain consent for central line placement.
--- NOTE | 2024-08-06 00:38 | PC.NURSE ---
Attempted to call without answer; voicemail left with call back number.
[2024-08-06] MEDS: NOREPINEPHRINE 8 MG/D5W 250 ML 8 MG/250 ML BAG 9.38 MG IV CONT (03:33)
[2024-08-06] MEDS: SODIUM CHLORIDE 0.9% IV 1,000 ML 125 ML IV CONT ×3 (03:34→19:30)
[2024-08-06 03:43] LABS: Glucose Point of Care 67 mg/dl (65-105)
[2024-08-06] MEDS: DEXTROSE 50% 25 GM/50 ML SYRINGE IV PUSH (03:48)
[2024-08-06 04:03] LABS: Glucose Point of Care 106 mg/dl (65-105)
--- NOTE | 2024-08-06 08:03 | PC.NURSE ---
SPOKE WITH [facility] FOR STATUS UPDATE. NO ICU BED AVAILABLE AT THIS TIME AT [facility].
--- NOTE | 2024-08-06 13:00 | PC.NURSE ---
PT REFUSING MORPHINE AT THIS TIME. WILL KEEP ORDER PRN IF PT CHANGES MIND.
[2024-08-06] MEDS: MORPHINE SULFATE (*CRX) 4 MG/ML INJ IV PUSH (13:54)
--- NOTE | 2024-08-06 13:55 | PC.NURSE ---
PT NOW REQUESTING MORPHINE. 4MG IVP GIVEN PER ORDER
[2024-08-06 14:08] LABS: Add Urine Microscopic? YES; Appearance Urine Cloudy (Clear); Bacteria Urine None Seen /hpf; Bilirubin Urine Negative (Negative); Blood Urine 2+ (Negative); Color Urine Dark Yellow (Yellow); Glucose Urine UA Trace mg/dL (Negative); Ketones Urine Negative (Negative); Leukocyte Esterase Ur 1+ LEU/UL (Negative); Need Manual Microscopic Reviewed; Nitrate Urine Negative (Negative); Protein Urine 4+ mg/dL (Negative); RBC Urine 21-50 /hpf (0-2); Specific Grav Ur 1.026 (1.001-1.035); Squamous Epithelial Cell Urine None Seen /hpf (Few); Urobilinogen Urine 0.2 mg/dL (<2.0); WBC Urine 0-5 /hpf (0-3); pH Urine 6.5 (5.0-9.0)
--- NOTE | 2024-08-06 15:34 | PC.NURSE ---
patient saturations 87%, this rn went to the bedside, ett connected and intact, patient alert and denies any discomfort. fio2 bumped with 100% for 1 minute. respiratory called to bedside.
[2024-08-06 21:00] LABS: Basophils Percent Auto 0.6 % (0.2-1.2); Eosinophils Percent Auto 0.2 % (0-4.4); Hematocrit 44.8 % (42.0-52.0); Hemoglobin 13.7 g/dL (14.0-18.0); Immature Granulocyte Absolute 0.02 K/mm3 (0.00-0.031); Immature Granulocyte Percent A 0.3 % (0-0.5); Lymphocytes Absolute Auto 0.78 K/mm3 (0.9-3.2); Lymphocytes Percent Auto 11.7 % (18.3-44.2); Mean Corpuscular HGB Conc 30.6 g/dl (32-36); Mean Corpuscular Hemoglobin 35.8 pg (26-34); Mean Platelet Volume 11.4 fl (7.4-10.4); Monocytes Percent Auto 14.4 % (2.6-8.5); Neutrophils Absolute Auto 4.8 K/mm3 (1.3-6.7); Neutrophils Percent Auto 72.8 % (45.5-73.1); Platelet Count Result 143 k/mm3 (150-375); Red Blood Count 3.83 M/mm3 (4.6-6.20); Red Cell Distribution Width 17.9 % (11.5-14.5); White Blood Count 6.7 K/mm3 (4.5-10.0)
[2024-08-06 21:19] LABS: Anisocytosis 1+; Platelet Estimate Adequate (Adequate)
[2024-08-06 21:20] LABS: Hypochromasia 1+; Schistocytes Rare
[2024-08-06 21:28] LABS: Alanine Aminotransferase 68 U/L (6-50); Alkaline Phosphatase 116 U/L (38-126); Anion Gap 15 mmol/L (4-12); Aspartate Amino Transferase 53 U/L (17-59); Bilirubin,Total 1.3 mg/dL (0.2-1.3); Blood Urea Nitrogen 44 mg/dL (9-20); Calcium 8.6 mg/dL (8.4-10.2); Carbon Dioxide 30 mmol/L (22-30); Chloride 94 mmol/L (98-107); Estimated CRCL calculation 17 ml/min; Estimated Glomerular Filt Rate 12; Glucose 78 mg/dL (65-110); Potassium 4.9 mmol/L (3.4-5.0); Sodium 139 mmol/L (137-145)
--- NOTE | 2024-08-06 23:30 | PC.NURSE ---
Patient was indicating that he needed suctioned. Patient's SPO2 was dropping into the 80s then the 70s. Patient was removed from vent and an ambu bag hooked up to oxygen was placed and patient was vented that way. Patient's spo2 began to rise to mid 80s. Patient's ETT was then suctioned in between bagging and multiple mucus plugs were removed. Patient's SPO2 then went back to 94% on the vent at bedside.
[2024-08-07] VITALS (80 sets, daily range): BP systolic 72–164; BP diastolic 17–107; PULSE 54–72; RESP 12–23; TEMP 36.5–37; O2SAT 91–100; BMI 34.4
[2024-08-07 01:08] LABS: Glucose Point of Care 63 mg/dl (65-105)
[2024-08-07] MEDS: DEXTROSE 50% 25 GM/50 ML SYRINGE IV PUSH (01:10)
[2024-08-07] MEDS: DEXTROSE 5% 1,000 ML 1,000 ML 100 ML IVPB ×2 (01:18→11:17)
[2024-08-07 01:29] LABS: Glucose Point of Care 113 mg/dl (65-105)
[2024-08-07] MEDS: MORPHINE SULFATE (*CRX) 4 MG/ML INJ IV PUSH (02:34)
--- NOTE | 2024-08-07 03:59 | PC.NURSE ---
Norepi drip confirmed at 2mcg/min with nurses SB and AI.
[2024-08-07 05:10] LABS: Glucose Point of Care 82 mg/dl (65-105)
[2024-08-07] MEDS: NOREPINEPHRINE 8 MG/D5W 250 ML 8 MG/250 ML BAG 3.75 MG IV CONT (05:46)
[2024-08-07 06:38] LABS: Glucose Point of Care 97 mg/dl (65-105)
--- NOTE | 2024-08-07 07:16 | PC.NURSE ---
0713 Spoke with Ronit from [facility] transfer center to give update on patient condition. They state they will call us when they have a bed available.
[2024-08-07 07:31] LABS: Basophils Absolute Auto 0.1 K/mm3 (0.0-0.1); Basophils Percent Auto 0.8 % (0.2-1.2); Eosinophils Percent Auto 0.4 % (0-4.4); Hematocrit 41.7 % (42.0-52.0); Hemoglobin 12.8 g/dL (14.0-18.0); Immature Granulocyte Absolute 0.03 K/mm3 (0.00-0.031); Immature Granulocyte Percent A 0.4 % (0-0.5); Lymphocytes Percent Auto 10.7 % (18.3-44.2); Mean Corpuscular HGB Conc 30.7 g/dl (32-36); Mean Corpuscular Hemoglobin 35.6 pg (26-34); Mean Corpuscular Volume 115.8 fl (80-100); Mean Platelet Volume 10.8 fl (7.4-10.4); Monocytes Absolute Auto 1.2 K/mm3 (0.1-0.6); Monocytes Percent Auto 15.5 % (2.6-8.5); Neutrophils Absolute Auto 5.4 K/mm3 (1.3-6.7); Neutrophils Percent Auto 72.2 % (45.5-73.1); Platelet Count Result 155 k/mm3 (150-375); Red Cell Distribution Width 17.8 % (11.5-14.5); White Blood Count 7.5 K/mm3 (4.5-10.0)
[2024-08-07 07:45] LABS: Alanine Aminotransferase 58 U/L (6-50); Albumin Level 3.6 g/dL (3.5-5.1); Alkaline Phosphatase 111 U/L (38-126); Anion Gap 13 mmol/L (4-12); Aspartate Amino Transferase 41 U/L (17-59); Bilirubin,Total 1.3 mg/dL (0.2-1.3); Blood Urea Nitrogen 46 mg/dL (9-20); Calcium 8.6 mg/dL (8.4-10.2); Carbon Dioxide 28 mmol/L (22-30); Chloride 95 mmol/L (98-107); Estimated CRCL calculation 16 ml/min; Estimated Glomerular Filt Rate 11; Glucose 98 mg/dL (65-110); Potassium 4.9 mmol/L (3.4-5.0); Sodium 136 mmol/L (137-145)
[2024-08-07 07:54] LABS: Macrocytosis 2+ (NORMAL); Platelet Estimate Adequate (Adequate); Schistocytes None Seen
--- NOTE | 2024-08-07 08:41 | PC.NURSE ---
0715 This RN made EDP Dr. Arroyo aware of pt being due for dialysis today. EDP Dr. Arroyo states he wanted to see patients morning lab results first. Upon receiving results of morning labs, EDP Dr. Arroyo states he thinks pt does not need dialysis this morning but would consult with nephrology.
[2024-08-07 08:43] LABS: Glucose Point of Care 106 mg/dl (65-105)
[2024-08-07 11:01] LABS: Glucose Point of Care 83 mg/dl (65-105)
--- NOTE | 2024-08-07 11:01 | PC.NURSE ---
Per EDP Dr. Arroyo, hold NS @ 125 mL/hr and continue the D5/NS.
[2024-08-07 12:41] LABS: Glucose Point of Care 79 mg/dl (65-105)
[2024-08-07 14:23] LABS: Hepatitis B Surface Antigen Negative (Negative)
[2024-08-07 14:40] LABS: Hepatitis B Surface Anti Res Negative
--- NOTE | 2024-08-07 15:39 | P.HP_ITS ---
H&P: HPI History of Present Illness Date/Time: 08/07/24 15:39 Chief Complaint: Compromised airway with hypercapnia Narrative: 59-year-old male with history of laryngeal cancer status post resection, diabetes type 2 end-stage renal disease on dialysis, CHF, hyperthyroidism and hypertension presents to the hospital with lightheadedness and dizziness. Patient able to nod his head and shake back and forth for yes and no answers. Patient states that he is in no pain. His bili is more distended than normal. On 08/06/2011-patient came to the hospital his blood gas showed a pH of 7.22, pCO2 of 81.6, O2 of 80, a decision was made to place a ET tube in the patient's tracheostomy and place him on a ventilator decreased his pCO2. Patient's blood gas approval on a ventilator. The plan is to transfer the patient to have [facility] for ENT however there is a bed available at this time. The patient was being boarded in the ED however at this time he is needing dialysis and have be admitted inpatient rehab. The ICU use accepted patient in the will still transferred [facility] when a bed is available. Blood cultures are pending. Patient started on broad-spectrum antibiotics. CT of the abdomen shows Significant gaseous distention of the colon with retained gastric contents. Review of Systems Review of Systems: 12 systems were reviewed and are negativ e except for as per HPI. [facility] Past Medical History Medical History Laryngeal cancer (2016) Status post chemoradiation. Right-sided heart failure Chronic respiratory failure with hypoxia, on home oxygen therapy Type 2 diabetes mellitus End-stage renal disease on hemodialysis Hyperlipidemia Congestive heart failure Renal osteodystrophy Erythropoietin deficiency anemia Hypothyroidism Hypertension Surgical History Surgical History History of percutaneous endoscopic gastrostomy History of tracheostomy Amputation of right great toe History of throat surgery Family History Family History Mother Family history of diabetes mellitus in first degree relative Diabetes mellitus Hypertension Heart disease Cerebrovascular accident Father Alcoholism Sibling Alcoholism Diabetes mellitus Hypertension Heart disease Cerebrovascular accident Other Family history of lung cancer Social History Social History Social History: Surrogate medical decision maker: Dasha Saxena, spouse. Code status: Full code. Smoking packs per day: 2 Smoking cigarettes per day: 40.0 Years smoked: 35 Smoking pack-years: 70.00 Smoking status: Former smoker Second hand tobacco smoke exposure: No Alcohol intake: never Substance use: never Substance use type: does not use Do You Feel Safe in your Home?: Yes Lack of Transportation: No Lack of Food: Never True Current Housing: I Have Housing Concerned About Future Housing: No Difficulty Paying Gas/Electric Bills: No Difficulty Paying for Meds: No Currently Unemployed: No Education: High School Diploma/GED Difficulty w/ Childcare or Family Care: No Additional living arrangements comments: Lives with spouse in [place]. They have 1 child. 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 care concerns: No Meds Home Medications and Allergies Home Medications ?Medication ?Instructions ?Recorded ?Confirmed ?Type amlodipine 10 mg tablet 10 mg PO DAILY 10/09/20 08/07/24 History calcitriol 0.25 mcg capsule 0.25 mcg PO DAILY 10/09/20 08/07/24 History carvedilol 12.5 mg tablet 12.5 mg PO Q12H 10/09/20 08/07/24 History levothyroxine 112 mcg capsule 175 mcg PO QAM 10/09/20 08/07/24 History losartan 100 mg tablet 100 mg PO DAILY 10/09/20 08/07/24 History pioglitazone 30 mg tablet 30 mg PO DAILY 10/09/20 08/07/24 History glimepiride 2 mg tablet 2 mg PO DAILY 05/08/23 08/07/24 History pravastatin 40 mg tablet 40 mg PO DAILY 05/08/23 08/07/24 History sevelamer carbonate 800 mg tablet 1,600 mg PO TIDWMEAL 08/07/24 08/07/24 History Allergies Allergy/AdvReac Type Severity Reaction Status Date / Time No Known Allergies Allergy Unknown Verified 08/05/24 10:41 Vital Signs Vital Signs - 24 hr 08/06/24 16:01 08/06/24 16:03 08/06/24 16:31 Temperature Pulse Rate 66 66 65 Respiratory Rate 10 L 10 L Blood Pressure 120/73 116/77 Pulse Oximetry 94 91 93 Oxygen Delivery Mechanical Ventilation Fraction of Inspired Oxygen 60 08/06/24 17:31 08/06/24 18:01 08/06/24 18:10 Temperature Pulse Rate 64 61 64 Respiratory Rate 10 L 10 L Blood Pressure 117/76 109/73 Pulse Oximetry 94 93 92 Oxygen Delivery Mechanical Ventilation Fraction of Inspired Oxygen 60 08/06/24 18:45 08/06/24 19:31 08/06/24 19:32 Temperature 97.6 F Pulse Rate 63 63 Respiratory Rate 14 12 Blood Pressure 116/82 121/83 Pulse Oximetry 94 92 92 Oxygen Delivery Mechanical Ventilation Fraction of Inspired Oxygen 08/06/24 19:32 08/06/24 19:33 08/06/24 20:31 Temperature Pulse Rate 64 66 Respiratory Rate 12 Blood Pressure 126/78 Pulse Oximetry 92 92 Oxygen Delivery Mechanical Ventilation Fraction of Inspired Oxygen 08/06/24 21:14 08/06/24 21:20 08/06/24 22:31 Temperature 98 F Pulse Rate 60 64 60 Respiratory Rate 12 12 Blood Pressure 126/96 H 113/70 Pulse Oximetry 92 93 93 Oxygen Delivery Mechanical Ventilation Fraction of Inspired Oxygen 60 08/06/24 23:06 08/07/24 00:01 08/07/24 00:39 Temperature 97.8 F Pulse Rate 72 67 60 Respiratory Rate 12 12 Blood Pressure 129/83 115/78 Pulse Oximetry 92 94 92 Oxygen Delivery Mechanical Ventilation Fraction of Inspired Oxygen 60 08/07/24 01:22 08/07/24 01:31 08/07/24 02:00 Temperature 97.9 F Pulse Rate 67 66 66 Respiratory Rate 12 15 Blood Pressure 117/82 120/82 Pulse Oximetry 92 91 93 Oxygen Delivery Mechanical Ventilation Fraction of Inspired Oxygen 60 08/07/24 02:01 08/07/24 02:31 08/07/24 03:01 Temperature Pulse Rate 62 64 59 L Respiratory Rate 15 16 12 Blood Pressure 113/78 107/77 95/66 L Pulse Oximetry 95 95 95 Oxygen Delivery Fraction of Inspired Oxygen 08/07/24 03:21 08/07/24 03:57 08/07/24 04:17 Temperature 98.3 F Pulse Rate 63 58 L 58 L Respiratory Rate 18 Blood Pressure 95/66 L 103/70 Pulse Oximetry 94 95 Oxygen Delivery Mechanical Ventilation Fraction of Inspired Oxygen 60 08/07/24 04:31 08/07/24 05:00 08/07/24 05:02 Temperature 98.1 F Pulse Rate 55 L 56 L 58 L Respiratory Rate 18 20 14 Blood Pressure 89/62 L 88/62 L 90/63 L Pulse Oximetry 96 94 95 Oxygen Delivery Fraction of Inspired Oxygen 08/07/24 05:36 08/07/24 05:46 08/07/24 05:50 Temperature Pulse Rate 58 L 56 L 56 L Respiratory Rate Blood Pressure 84/59 L 84/59 L Pulse Oximetry 95 Oxygen Delivery Mechanical Ventilation Fraction of Inspired Oxygen 60 08/07/24 06:03 08/07/24 06:15 08/07/24 06:16 Temperature Pulse Rate 55 L 56 L 56 L Respiratory Rate 12 20 Blood Pressure 88/62 L 108/70 108/70 Pulse Oximetry 96 96 Oxygen Delivery Fraction of Inspired Oxygen 08/07/24 06:31 08/07/24 07:25 08/07/24 07:27 Temperature Pulse Rate 55 L 58 L Respiratory Rate 12 Blood Pressure 106/70 Pulse Oximetry 95 94 94 Oxygen Delivery Mechanical Ventilation Mechanical Ventilation Fraction of Inspired Oxygen 60 60 08/07/24 07:31 08/07/24 08:31 08/07/24 09:15 Temperature Pulse Rate 57 L 58 L 58 L Respiratory Rate 12 20 15 Blood Pressure 125/78 122/74 Pulse Oximetry 94 95 95 Oxygen Delivery Fraction of Inspired Oxygen 08/07/24 09:38 08/07/24 09:38 08/07/24 10:00 Temperature Pulse Rate 58 L 59 L 64 Respiratory Rate 16 20 Blood Pressure Pulse Oximetry 95 94 94 Oxygen Delivery Mechanical Ventilation Fraction of Inspired Oxygen 60 08/07/24 10:01 08/07/24 11:15 08/07/24 11:31 Temperature Pulse Rate 64 57 L 60 Respiratory Rate 19 19 17 Blood Pressure 132/92 H 116/75 133/87 Pulse Oximetry 92 95 94 Oxygen Delivery Fraction of Inspired Oxygen 08/07/24 11:32 08/07/24 11:45 08/07/24 12:04 Temperature Pulse Rate 58 L 61 56 L Respiratory Rate 19 17 16 Blood Pressure Pulse Oximetry 93 94 95 Oxygen Delivery Fraction of Inspired Oxygen 08/07/24 12:05 08/07/24 12:36 08/07/24 12:45 Temperature Pulse Rate 57 L 56 L 58 L Respiratory Rate Blood Pressure Pulse Oximetry 97 96 96 Oxygen Delivery Mechanical Ventilation Fraction of Inspired Oxygen 60 08/07/24 13:00 08/07/24 13:15 08/07/24 13:52 Temperature Pulse Rate 58 L 57 L 56 L Respiratory Rate 22 H 19 18 Blood Pressure 141/89 H Pulse Oximetry 96 97 96 Oxygen Delivery Fraction of Inspired Oxygen 08/07/24 14:10 08/07/24 14:12 08/07/24 14:15 Temperature Pulse Rate 59 L 59 L 62 Respiratory Rate 17 23 H Blood Pressure Pulse Oximetry 97 96 94 Oxygen Delivery Mechanical Ventilation Fraction of Inspired Oxygen 60 08/07/24 14:30 08/07/24 14:31 08/07/24 14:45 Temperature Pulse Rate 61 61 57 L Respiratory Rate 19 17 19 Blood Pressure 151/90 H Pulse Oximetry 94 94 95 Oxygen Delivery Fraction of Inspired Oxygen Exam Narrative: General: well appearing, appears stated age. HEENT: normocephalic, atraumatic. Mucous membranes moist. EOMI, PERRLA, bilateral sclera anicteric, no conjunctival injection. Neck tracheostomy hole with ET tube Respiratory: clear to ascultation bilaterally. No rales/rhonic/wheezes. Synchronous with ventilator Cardiovascular: Regular rate and rhythm, normal S1-S2 upon ascultation. No murmurs, rubs, or clicks. PMI is nondisplaced, capillary refill less than 3 second. Abdomen: firm distended. No rebound, no guarding. No CVA tenderness, no hepat osplenomegaly. Bowel sounds present to all four quadrants. No high pitch or tinkling sounds, resonant to percussion. Extremities: No cyanosis, clubbing, or edema present. Right 1st metatarsal amputation, lower extremities cool to touch pulses intact Neuro: Alert and orientated x 4. PERRLA. Cranial nerves 2-12 intact without focal deficit. Skin: Warm, dry, and intact, without rash, erythema, or lesion. Psych: pleasant, cooperative, normal speech, normal affect, no hallucinations, no dysarthia H&P: Results Labs Labs: Short CBC 08/06/24 08/07/24 Range/Units 20:52 07:23 WBC 6.7 7.5 (4.5-10.0) K/mm3 Hgb 13.7 L 12.8 L (14.0-18.0) g/dL Hct 44.8 41.7 L (42.0-52.0) % Plt Count 143 L 155 (150-375) k/mm3 BMP 08/06/24 08/07/24 21:12 07:23 Sodium 139 136 L Potassium 4.9 4.9 Chloride 94 L 95 L Carbon Dioxide 30 28 BUN 44 H D 46 H Creatinine 5.05 H 5.51 H Glucose 78 98 Calcium 8.6 8.6 Liver Function 08/06/24 08/07/24 Range/Units 21:12 07:23 Total Bilirubin 1.3 1.3 (0.2-1.3) mg/dL AST 53 41 (17-59) U/L ALT 68 H 58 H (6-50) U/L Alkaline Phosphatase 116 111 (38-126) U/L Albumin 4.0 3.6 (3.5-5.1) g/dL Assessment and Plan Assessment and plan (1) Acute hypercapnic respiratory failure: Code(s): J96.02 - Acute respiratory failure with hypercapnia Status: Acute Assessment and Plan: Secondary to difficulties with tracheal stoma ETT place and patient on ventilator Transfer [facility] for ENT Broad-spectrum antibiotics (2) 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 - Tracheostomy status Status: Acute Assessment and Plan: See above (3) End-stage renal disease on hemodialysis: Code(s): N18.6 - End stage renal disease; Z99.2 - Dependence on renal dialysis Status: Acute Assessment and Plan: Admit to the ICU for dialysis Nephrology consulted Dialysis on 08/07 (4) Right-sided heart failure: Code(s): I50.810 - Right heart failure, unspecified Status: Acute Assessment and Plan: Management by dialysis (5) Type 2 diabetes mellitus: Code(s): E11.9 - Type 2 diabetes mellitus without complications Status: Acute Assessment and Plan: NPO currently due to having endotracheal tube Accu-Cheks q.6 Hypoglycemic protocol (6) Hypothyroidism: Code(s): E03.9 - Hypothyroidism, unspecified Status: Acute Assessment and Plan: IV Synthroid (7) Colon distention: Code(s): K63.89 - Other specified diseases of intestine Status: Acute Assessment and Plan: CT showed Significant gaseous distention of the colon with retained gastric contents. Air opacification of the colon which is also distended. Intra- abdominal ascites. NPO KUB Plan Patient started on azithromycin cefepime vancomycin Quality VTE Prophylaxis VTE prophylaxis: pharmacologic ordered Hospitalist MIPS Advance Care Plan I have confirmed that the patient's Advanced Care Plan is present, code status is documented, or surrogate decision maker is listed in patient medical record.: Yes Medication Reconciliation I have utilized all available resources to obtain, update and review the patients current medications (includes all prescriptions, OTC, herbals, cannabis, and nutritional supplements).: Yes
[2024-08-07 16:16] LABS: Glucose Point of Care 102 mg/dl (65-105)
--- NOTE | 2024-08-07 16:19 | P.CONIN_ITS ---
Assessment and Plan Assessment and plan (1) Pre-syncope: Code(s): R55 - Syncope and collapse Status: Acute Assessment and Plan: Patient presented with dizziness, presyncope as they were doing dialysis on him on 08/05/2024 -patient was hypotensive that could be a cause of dizziness -currently blood pressure stable, denies any lightheadedness or disease - (2) Hypertension: Code(s): I10 - Essential (primary) hypertension Status: Acute Assessment and Plan: Essential hypertension, will hold all antihypertensives as patient was on Levophed in the ER due to hypotension (3) Hypotension: Code(s): I95.9 - Hypotension, unspecified Status: Acute Assessment and Plan: Likely related to dialysis and fluid removal -currently blood pressures in the 150s to 160s (4) Right-sided heart failure: Code(s): I50.810 - Right heart failure, unspecified Status: Acute Assessment and Plan: Patient getting dialyzed today (5) Elevated troponin: Code(s): R79.89 - Other specified abnormal findings of blood chemistry Status: Acute Assessment and Plan: Elevated troponin in the ER , plateaued x3 -likely related to end-stage renal disease, hypotension, respiratory distress (6) Hyperlipidemia: Code(s): E78.5 - Hyperlipidemia, unspecified Status: Acute Assessment and Plan: On pravastatin at home, currently will hold (7) Type 2 diabetes mellitus: Code(s): E11.9 - Type 2 diabetes mellitus without complications Status: Acute Assessment and Plan: Sliding scale insulin Accu-Cheks (8) Hypothyroidism: Code(s): E03.9 - Hypothyroidism, unspecified Status: Acute Assessment and Plan: Will switch levothyroxine to IV (9) 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 - Tracheostomy status Status: Acute Assessment and Plan: Patient's trach was replaced with a cuffed ET tube -patient has been accepted to [facility] for cuffed tracheostomy as we do not have ENT here -awaiting a bed [facility] (10) History of partial laryngectomy: Code(s): Z90.02 - Acquired absence of larynx Status: Acute Assessment and Plan: Secondary to laryngeal CA, tracheostomy dependent (11) End-stage renal disease on hemodialysis: Code(s): N18.6 - End stage renal disease; Z99.2 - Dependence on renal dialysis Status: Acute Assessment and Plan: ESRD on hemodialysis, Friday, , Friday -nephrology following -dialysis today (12) Chronic respiratory failure with hypoxia, on home oxygen therapy: Code(s): J96.11 - Chronic respiratory failure with hypoxia; Z99.81 - Dependence on supplemental oxygen Status: Acute Assessment and Plan: Secondary to laryngeal CA, partial laryngectomy, trach dependent obesity hypoventilation syndrome, obstructive sleep apnea given patient's body habitus (13) Abdominal distension: Code(s): R14.0 - Abdominal distension (gaseous) Status: Acute Assessment and Plan: Abdominal distension, likely fluid and air as seen on CT abdomen and pelvis -will check obstructive series for ileus versus obstruction Plan DVT prophylaxis: SubQ heparin Stress ulcer prophylaxis: Protonix IV Nutrition: NPO Code Status: Full code Critical Care Time Spent: 48 minutes Due to a high probability of clinically significant, life threatening deterioration, the patient required my highest level of preparedness to intervene emergently and I personally spent this critical care time directly and personally managing the patient. This critical care time included obtaining a history; examining the patient; pulse oximetry; ordering and review of studies; arranging urgent treatment with development of a management plan; evaluation of patient's response to treatment; frequent reassessment; and discussions with other providers. It was exclusive of separately billable procedures and treating other patients and teaching time. Please see Assessment and Plan section and the rest of the note for further information on patient assessment and treatment This dictation may have been done utilizing a voice recognition system. Attempts have been made to correct errors. However, there may be uncorrected grammatical, spelling, and recognitions errors present. 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 Consult date: 08/07/24 Reason for consult: Near syncope, lightheadedness, abdominal distention, end-stage renal disease on dialysis, shortness of breath HPI: Bubba Saxena is a 59 year old male with significant past medical history of laryngeal cancer status post chemo radiation status post tracheostomy, right heart failure, chronic respiratory failure on home O2, type 2 diabetes, end- stage renal disease on dialysis, anemia, hypothyroidism, essential hypertension, patient lives at home with his spouse, presented the ED after he reported lightheadedness and near-syncope that began during dialysis. He also was short of breath, treatment was stopped and sent to the ED for further evaluation. He did have 1 L fluid removal on 08/05/2024. In the ER patient her white count 7.5, hemoglobin of 12.8, platelet count a 155, INR 1.2, ABGs on 08/05 showing hypercapnic respiratory failure, tracheostomy tube replaced with the ETT with a cuff. Patient is going to be transferred to [facility] for ENT to insert another tracheostomy, patient has been accepted and awaiting a bed. Electrolytes are within normal limits, BUN 46 and creatinine of 5.51, patient does have ESRD on HD. He does make urine, UA slightly dirty. Influenza, RSV and SARS-CoV-2 PCR were negative. Patient has been in the ER for almost 50 hours, dialysis cannot be done in the ED so he has to be transferred to the ICU for further management 08/05: CTA chest abdomen pelvis: No pulmonary embolism, no aortic dissection, bilateral pleural effusion, right greater than left, adjacent compressive atelectasis on the right and adjacent consolidation on the left. Significant gaseous distention of the colon with retained gastric contents, a opacification of the colon which is also distended, intra-abdominal ascites, moderate anasarca, cholelithiasis without cholecystitis. 08/07: Chest x-ray showed worsened airspace opacities in mid and lower lung zones with basilar predominance consistent with atelectasis versus pneumonia, worsened small pleural effusions, cardiomegaly, tracheostomy tube tip 6 mm above jia Patient seen and examined upon arrival to the ICU, patient is awake, alert, pleasant gentleman in no acute distress. Denies any shortness of breath, nausea, vomiting, chest pain. He is able to mouth words and tell me that his belly seems to be distended and full of fluid. Patient in the ER was on 2-4 mcg of Levophed but currently SBP in the 150-160s. Dialysis was being hooked up as I write the note. O2 sats have been within normal limits, patient since bradycardia. Patient was placed on ventilator support, switched him to ASV mode in the ICU Review of Systems 2 Review of Systems: All systems reviewed & are unremarkable except as noted in HPI and below PMFSH Past Medical History Medical History Laryngeal cancer (2016) Status post chemoradiation. Right-sided heart failure Chronic respiratory failure with hypoxia, on home oxygen therapy Type 2 diabetes mellitus End-stage renal disease on hemodialysis Hyperlipidemia Congestive heart failure Renal osteodystrophy Erythropoietin deficiency anemia Hypothyroidism Hypertension Surgical History Surgical History History of percutaneous endoscopic gastrostomy History of tracheostomy Amputation of right great toe History of throat surgery Family History Family History Mother Family history of diabetes mellitus in first degree relative Diabetes mellitus Hypertension Heart disease Cerebrovascular accident Father Alcoholism Sibling Alcoholism Diabetes mellitus Hypertension Heart disease Cerebrovascular accident Other Family history of lung cancer Social History Social History Social History: Surrogate medical decision maker: Dasha Saxena, spouse. Code status: Full code. Smoking packs per day: 2 Smoking cigarettes per day: 40.0 Years smoked: 35 Smoking pack-years: 70.00 Smoking status: Former smoker Second hand tobacco smoke exposure: No Alcohol intake: never Substance use: never Substance use type: does not use Do You Feel Safe in your Home?: Yes Lack of Transportation: No Lack of Food: Never True Current Housing: I Have Housing Concerned About Future Housing: No Difficulty Paying Gas/Electric Bills: No Difficulty Paying for Meds: No Currently Unemployed: No Education: High School Diploma/GED Difficulty w/ Childcare or Family Care: No Additional living arrangements comments: Lives with spouse in [place]. They have 1 child. 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 care concerns: No Meds Home Medications and Allergies Home Medications ?Medication ?Instructions ?Recorded ?Confirmed ?Type amlodipine 10 mg tablet 10 mg PO DAILY 10/09/20 05/08/23 History calcitriol 0.25 mcg capsule 0.25 mcg PO DAILY 10/09/20 05/08/23 History carvedilol 12.5 mg tablet 12.5 mg PO Q12H 10/09/20 05/08/23 History levothyroxine 112 mcg capsule 112 mcg PO DAILY 10/09/20 05/08/23 History losartan 100 mg tablet 100 mg PO DAILY 10/09/20 05/08/23 History pioglitazone 30 mg tablet 30 mg PO DAILY 10/09/20 05/08/23 History glimepiride 2 mg tablet 2 mg PO DAILY 05/08/23 05/08/23 History pravastatin 40 mg tablet 40 mg PO DAILY 05/08/23 05/08/23 History Allergies Allergy/AdvReac Type Severity Reaction Status Date / Time No Known Allergies Allergy Unknown Verified 08/05/24 10:41 Vital Signs Vital Signs - 24 hr 08/06/24 16:31 08/06/24 17:31 08/06/24 18:01 Temperature Pulse Rate 65 64 61 Respiratory Rate 10 L 10 L 10 L Blood Pressure 116/77 117/76 109/73 Pulse Oximetry 93 94 93 Oxygen Delivery Fraction of Inspired Oxygen 08/06/24 18:10 08/06/24 18:45 08/06/24 19:31 Temperature 97.6 F Pulse Rate 64 63 63 Respiratory Rate 14 12 Blood Pressure 116/82 121/83 Pulse Oximetry 92 94 92 Oxygen Delivery Mechanical Ventilation Fraction of Inspired Oxygen 60 08/06/24 19:32 08/06/24 19:32 08/06/24 19:33 Temperature Pulse Rate 64 Respiratory Rate Blood Pressure Pulse Oximetry 92 92 Oxygen Delivery Mechanical Ventilation Mechanical Ventilation Fraction of Inspired Oxygen 08/06/24 20:31 08/06/24 21:14 08/06/24 21:20 Temperature 98 F Pulse Rate 66 60 64 Respiratory Rate 12 12 Blood Pressure 126/78 126/96 H Pulse Oximetry 92 92 93 Oxygen Delivery Mechanical Ventilation Fraction of Inspired Oxygen 60 08/06/24 22:31 08/06/24 23:06 08/07/24 00:01 Temperature 97.8 F Pulse Rate 60 72 67 Respiratory Rate 12 12 12 Blood Pressure 113/70 129/83 115/78 Pulse Oximetry 93 92 94 Oxygen Delivery Fraction of Inspired Oxygen 08/07/24 00:39 08/07/24 01:22 08/07/24 01:31 Temperature 97.9 F Pulse Rate 60 67 66 Respiratory Rate 12 15 Blood Pressure 117/82 120/82 Pulse Oximetry 92 92 91 Oxygen Delivery Mechanical Ventilation Fraction of Inspired Oxygen 60 08/07/24 02:00 08/07/24 02:01 08/07/24 02:31 Temperature Pulse Rate 66 62 64 Respiratory Rate 15 16 Blood Pressure 113/78 107/77 Pulse Oximetry 93 95 95 Oxygen Delivery Mechanical Ventilation Fraction of Inspired Oxygen 60 08/07/24 03:01 08/07/24 03:21 08/07/24 03:57 Temperature 98.3 F Pulse Rate 59 L 63 58 L Respiratory Rate 12 18 Blood Pressure 95/66 L 95/66 L 103/70 Pulse Oximetry 95 94 Oxygen Delivery Fraction of Inspired Oxygen 08/07/24 04:17 08/07/24 04:31 08/07/24 05:00 Temperature 98.1 F Pulse Rate 58 L 55 L 56 L Respiratory Rate 18 20 Blood Pressure 89/62 L 88/62 L Pulse Oximetry 95 96 94 Oxygen Delivery Mechanical Ventilation Fraction of Inspired Oxygen 60 08/07/24 05:02 08/07/24 05:36 08/07/24 05:46 Temperature Pulse Rate 58 L 58 L 56 L Respiratory Rate 14 Blood Pressure 90/63 L 84/59 L Pulse Oximetry 95 95 Oxygen Delivery Mechanical Ventilation Fraction of Inspired Oxygen 60 08/07/24 05:50 08/07/24 06:03 08/07/24 06:15 Temperature Pulse Rate 56 L 55 L 56 L Respiratory Rate 12 Blood Pressure 84/59 L 88/62 L 108/70 Pulse Oximetry 96 Oxygen Delivery Fraction of Inspired Oxygen 08/07/24 06:16 08/07/24 06:31 08/07/24 07:25 Temperature Pulse Rate 56 L 55 L 58 L Respiratory Rate 20 12 Blood Pressure 108/70 106/70 Pulse Oximetry 96 95 94 Oxygen Delivery Mechanical Ventilation Fraction of Inspired Oxygen 60 08/07/24 07:27 08/07/24 07:31 08/07/24 08:31 Temperature Pulse Rate 57 L 58 L Respiratory Rate 12 20 Blood Pressure 125/78 122/74 Pulse Oximetry 94 94 95 Oxygen Delivery Mechanical Ventilation Fraction of Inspired Oxygen 60 08/07/24 09:15 08/07/24 09:38 08/07/24 09:38 Temperature Pulse Rate 58 L 58 L 59 L Respiratory Rate 15 16 Blood Pressure Pulse Oximetry 95 95 94 Oxygen Delivery Mechanical Ventilation Fraction of Inspired Oxygen 60 08/07/24 10:00 08/07/24 10:01 08/07/24 11:15 Temperature Pulse Rate 64 64 57 L Respiratory Rate 20 19 19 Blood Pressure 132/92 H 116/75 Pulse Oximetry 94 92 95 Oxygen Delivery Fraction of Inspired Oxygen 08/07/24 11:31 08/07/24 11:32 08/07/24 11:45 Temperature Pulse Rate 60 58 L 61 Respiratory Rate 17 19 17 Blood Pressure 133/87 Pulse Oximetry 94 93 94 Oxygen Delivery Fraction of Inspired Oxygen 08/07/24 12:04 08/07/24 12:05 08/07/24 12:36 Temperature Pulse Rate 56 L 57 L 56 L Respiratory Rate 16 Blood Pressure Pulse Oximetry 95 97 96 Oxygen Delivery Mechanical Ventilation Fraction of Inspired Oxygen 60 08/07/24 12:45 08/07/24 13:00 08/07/24 13:15 Temperature Pulse Rate 58 L 58 L 57 L Respiratory Rate 22 H 19 Blood Pressure 141/89 H Pulse Oximetry 96 96 97 Oxygen Delivery Fraction of Inspired Oxygen 08/07/24 13:52 08/07/24 14:10 08/07/24 14:12 Temperature Pulse Rate 56 L 59 L 59 L Respiratory Rate 18 17 Blood Pressure Pulse Oximetry 96 97 96 Oxygen Delivery Mechanical Ventilation Fraction of Inspired Oxygen 60 08/07/24 14:15 08/07/24 14:30 08/07/24 14:31 Temperature Pulse Rate 62 61 61 Respiratory Rate 23 H 19 17 Blood Pressure 151/90 H Pulse Oximetry 94 94 94 Oxygen Delivery Fraction of Inspired Oxygen 08/07/24 14:45 08/07/24 15:37 Temperature Pulse Rate 57 L 61 Respiratory Rate 19 Blood Pressure Pulse Oximetry 95 98 Oxygen Delivery Mechanical Ventilation Fraction of Inspired Oxygen 60 Exam 2 Narrative: General: Pleasant gentleman, obese, in no acute distress HEENT:? ETT in the tracheostomy tract Neck:? Thick neck Respiratory:? Coarse breath sounds bilaterally, decreased at bases, no wheezing, adequate air entry Cardiac:? Sinus bradycardia, S1-S2 is normal Abdomen:? Soft, distended, tympanic, nontender, hypoactive bowel sound Extremities:? Bilateral lower extremity chronic venous stasis change, pitting edema bilateral lower extremity, absent big toe on the right foot Neuro:? Patient is awake, alert, oriented, able to mouth words, follows simple commands in all extremities Skin:? Bilat lower extremity venous stasis changes Psych:? Normal mentation and affect Results Labs 08/07/24 07:23 08/07/24 07:23 Labs: Short CBC 08/06/24 08/07/24 Range/Units 20:52 07:23 WBC 6.7 7.5 (4.5-10.0) K/mm3 Hgb 13.7 L 12.8 L (14.0-18.0) g/dL Hct 44.8 41.7 L (42.0-52.0) % Plt Count 143 L 155 (150-375) k/mm3 BMP 08/06/24 08/07/24 21:12 07:23 Sodium 139 136 L Potassium 4.9 4.9 Chloride 94 L 95 L Carbon Dioxide 30 28 BUN 44 H D 46 H Creatinine 5.05 H 5.51 H Glucose 78 98 Calcium 8.6 8.6 Liver Function 08/06/24 08/07/24 Range/Units 21:12 07:23 Total Bilirubin 1.3 1.3 (0.2-1.3) mg/dL AST 53 41 (17-59) U/L ALT 68 H 58 H (6-50) U/L Alkaline Phosphatase 116 111 (38-126) U/L Albumin 4.0 3.6 (3.5-5.1) g/dL Quality VTE Prophylaxis VTE prophylaxis: pharmacologic ordered Hospitalist MIPS Advance Care Plan I have confirmed that the patient's Advanced Care Plan is present, code status is documented, or surrogate decision maker is listed in patient medical record.: Yes Medication Reconciliation I have utilized all available resources to obtain, update and review the patients current medications (includes all prescriptions, OTC, herbals, cannabis, and nutritional supplements).: Yes
--- NOTE | 2024-08-07 17:10 | P.CONNP_ITS ---
Assessment and Plan Assessment and plan (1) End stage renal disease: Code(s): N18.6 - End stage renal disease Status: Chronic Assessment and Plan: * HD today * continue Friday//Friday dialysis schedule while hospitalized * received on partial treatment on (08/05) prior to ER presentation * follow electrolytes, volume status, and clearance * primary special agent fbi = Dr. Isaiah Davis * outpatient dialysis unit = [facility] (2) Pre-syncope: Code(s): R55 - Syncope and collapse Status: Acute Assessment and Plan: * presented with this and dizziness during outpatient dialysis treatment on 08/05/24 * suspect secondary to hypotension as noted by vital signs in ER * clinically better with better blood pressure (3) Hypotension: Code(s): I95.9 - Hypotension, unspecified Status: Acute Assessment and Plan: * presumably due to dialysis treatment and accompanying ultrafiltration/fluid removal * however, does have significant swelling/edema on exam... * requiring low dose levophed (initiated in ER) * wean off as tolerated * known history of hypertension * all BP medications on hold * follow trend of hemodynamics (4) Chronic respiratory failure with hypoxia, on home oxygen therapy: Code(s): J96.11 - Chronic respiratory failure with hypoxia; Z99.81 - Dependence on supplemental oxygen Status: Acute Assessment and Plan: * due to laryngeal cancer s/p, partial laryngectomy, obesity hypoventilation syndrome, and obstructive sleep apnea * currently tracheostomy dependent * tracheostomy tube replaced with ETT in ER * awaiting transfer to [facility] for ENT evaluation of tracheostomy (5) Volume overload: Code(s): E87.70 - Fluid overload, unspecified Status: Acute Assessment and Plan: * as evidenced by exam * fluid removal with HD as tolerated by hemodynamics * may need an extra HD/DUF session as well... (6) Type 2 diabetes mellitus: Code(s): E11.9 - Type 2 diabetes mellitus without complications Status: Chronic Assessment and Plan: * follow accu-cheks * glycemic control per hospitalist/advertising consultant I will continue to follow the patient with you while he remains hospitalized and make further recommendations as deemed necessary. Thank you for allowing me to participate in the care of this patient. L History of Present Illness Reason for Consult Consult date: 03/08/25 Reason for consult: end stage renal disease Chief Complaint Chief complaint: hypercapnic respiratory failure,hypertension,end-s History of Present Illness Narrative: The patient is a 59-year-old male with a past medical history as outlined below who presented to [facility] Emergency Room with complaints of lightheadedness and near syncope during his last dialysis treatment. On further questioning, he also reported some shortness of breath in association with the lightheadedness. He apparently had about 1 L of fluid removed on that last dialysis treatment but the treatment was aborted due to his symptoms of lightheadedness and shortness of breath -- he only had about 1.5 hours of his dialysis treatment before it was aborted. Even after his dialysis treatment was stopped, he continued to have symptoms of shortness of breath and lightheadedness and hence EMS was called and he was transferred to the emergency room for further assessment. Workup and evaluation emergency room demonstrated the patient to be hemodynamically stable and in no acute distress. Routine testing demonstrated unremarkable CBC but his ABG showed evidence of hypercapnic respiratory failure. His chest x-ray showed worsening airspace opacities in the mid and lower lung zones with basilar predominance consistent with atelectasis versus pneumonia, cardiomegaly, small bilateral pleural effusions, and his tracheostomy tube 6 mm above the jia. His chemistry showed labs consistent with his known history of end-stage renal disease but without any critical electrolyte abnormalities. Viral testing for RSV, influenza, and COVID were negative. Unfortunately, he continued to have complaints of shortness of breath despite conservative therapy and given his ABG findings, his tracheostomy tube was replaced with a ETT with a cuff. This apparently stabilized his respiratory status and it was felt that he would need another tracheostomy placement. As ENT coverage is not readily available here at [facility], the tentative plan was for the patient be transferred to [facility] for this intervention. With stabilization of his respiratory status, further imaging was obtained including a CTA of the chest/abdomen/pelvis which demonstrated no pulmonary embolism, aortic dissection but did demonstrate evidence of bilateral pleural effusions with adjacent compress compressive atelectasis on the right and suspected consolidation on the left; significant gaseous distension of the colon and retained gastric contents was noted along with moderate anasarca. His urinalysis was also somewhat suggestive of urinary tract infection. While he was in the emergency room, he developed some issues with hypotension and was initiated on vasopressor therapy to maintain his blood pressure/MAP. Unfortunately, the patient has been in the ER for almost 50 hours waiting for a bed at [facility] so decision was made to admit the patient here to the ICU and [facility] for ongoing dialytic support and medical management for his respiratory failure. Since his admission to the ICU, the patient is awake and alert and appears in no acute distress at this time. He denies eyes any other acute complaints and is able to make his needs known by mouth in words. He is still on very low-dose of Levophed the time my visit but his blood pressure is a doing quite well so this is being weaned off. Renal consultation was requested due to his end-stage renal disease. The patient normally dialyzes on a Friday, , Friday dialysis schedule at [facility] under the care of Dr. Isaiah Davis. From a dialysis perspective, he usually does reasonably well with his treatments in general although he sometimes has issues with hypotension related to aggressive fluid removal as he sometimes can gain a significant amount of fluid in between his dialysis treatments. I am assuming that he had significant fluid retention on his last outpatient dialysis treatment an effort for being made to optimize fluid removal with his dialysis treatment prior to its discontinuation due to his complaints of shortness of breath and lightheadedness/near syncope. He currently dialyzes through a AV access in his arm which has been working fairly well in general. Currently, at the time my evaluation, the patient is receiving dialysis and appears to be tolerating it fairly well (seen on HD at 5:00PM). Review of Systems 2 Review of Systems: As per HPI. [facility] Past Medical History Medical History (Updated 08/10/24 @ 08:53 by Kali Garcia MD) Laryngeal cancer (2016) Status post chemoradiation. Right-sided heart failure Chronic respiratory failure with hypoxia, on home oxygen therapy Type 2 diabetes mellitus End-stage renal disease on hemodialysis Hyperlipidemia Congestive heart failure Renal osteodystrophy Erythropoietin deficiency anemia Hypothyroidism Hypertension Surgical History Surgical History History of percutaneous endoscopic gastrostomy History of tracheostomy Amputation of right great toe History of throat surgery Family History Family History Mother Family history of diabetes mellitus in first degree relative Diabetes mellitus Hypertension Heart disease Cerebrovascular accident Father Alcoholism Sibling Alcoholism Diabetes mellitus Hypertension Heart disease Cerebrovascular accident Other Family history of lung cancer Social History Social History Social History: Surrogate medical decision maker: Dasha Saxena, spouse. Code status: Full code. Smoking packs per day: 2 Smoking cigarettes per day: 40.0 Years smoked: 35 Smoking pack-years: 70.00 Smoking status: Former smoker Tobacco type: cigarettes Second hand tobacco smoke exposure: No Alcohol intake: never Substance use: never Substance use type: does not use Do You Feel Safe in your Home?: Yes Lack of Transportation: No Lack of Food: Never True Current Housing: I Have Housing Concerned About Future Housing: No Difficulty Paying Gas/Electric Bills: No Difficulty Paying for Meds: No Currently Unemployed: No Education: Decline to Answer Difficulty w/ Childcare or Family Care: No Additional living arrangements comments: Lives with spouse in [place]. They have 1 child. 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 care concerns: No Meds Home Medications and Allergies Home Medications ?Medication ?Instructions ?Recorded ?Confirmed ?Type amlodipine 10 mg tablet 10 mg PO DAILY 10/09/20 08/07/24 History calcitriol 0.25 mcg capsule 0.25 mcg PO DAILY 10/09/20 08/07/24 History carvedilol 12.5 mg tablet 12.5 mg PO Q12H 10/09/20 08/07/24 History levothyroxine 112 mcg capsule 175 mcg PO QAM 10/09/20 08/07/24 History losartan 100 mg tablet 100 mg PO DAILY 10/09/20 08/07/24 History pioglitazone 30 mg tablet 30 mg PO DAILY 10/09/20 08/07/24 History glimepiride 2 mg tablet 2 mg PO DAILY 05/08/23 08/07/24 History pravastatin 40 mg tablet 40 mg PO DAILY 05/08/23 08/07/24 History sevelamer carbonate 800 mg tablet 1,600 mg PO TIDWMEAL 08/07/24 08/07/24 History Allergies Allergy/AdvReac Type Severity Reaction Status Date / Time No Known Allergies Allergy Unknown Verified 08/05/24 10:41 Vital Signs Vital Signs Temp Pulse Resp BP Pulse Ox O2 Del Method FiO2 08/07/24 15:37 61 98 Mechanical Ventilation 60 08/07/24 14:45 57 L 19 95 08/07/24 14:31 61 17 151/90 H 94 08/07/24 14:30 61 19 94 08/07/24 14:15 62 23 H 94 08/07/24 14:12 59 L 17 96 08/07/24 14:10 59 L 97 Mechanical Ventilation 60 08/07/24 13:52 56 L 18 96 08/07/24 13:15 57 L 19 141/89 H 97 08/07/24 13:00 58 L 22 H 96 08/07/24 12:45 58 L 96 08/07/24 12:36 56 L 96 08/07/24 12:05 57 L 97 Mechanical Ventilation 60 08/07/24 12:04 56 L 16 95 08/07/24 11:45 61 17 94 08/07/24 11:32 58 L 19 93 08/07/24 11:31 60 17 133/87 94 08/07/24 11:15 57 L 19 116/75 95 08/07/24 10:01 64 19 132/92 H 92 08/07/24 10:00 64 20 94 08/07/24 09:38 59 L 16 94 08/07/24 09:38 58 L 95 Mechanical Ventilation 60 08/07/24 09:15 58 L 15 95 08/07/24 08:31 58 L 20 122/74 95 08/07/24 07:31 57 L 12 125/78 94 08/07/24 07:27 94 Mechanical Ventilation 60 08/07/24 07:25 58 L 94 Mechanical Ventilation 60 08/07/24 06:31 55 L 12 106/70 95 08/07/24 06:16 56 L 20 108/70 96 08/07/24 06:15 56 L 12 108/70 96 08/07/24 06:03 55 L 88/62 L 08/07/24 05:50 56 L 84/59 L 08/07/24 05:46 56 L 84/59 L 08/07/24 05:36 58 L 95 Mechanical Ventilation 60 08/07/24 05:02 58 L 14 90/63 L 95 08/07/24 05:00 98.1 F 56 L 20 88/62 L 94 08/07/24 04:31 55 L 18 89/62 L 96 08/07/24 04:17 58 L 95 Mechanical Ventilation 60 08/07/24 03:57 58 L 103/70 08/07/24 03:21 98.3 F 63 18 95/66 L 94 08/07/24 03:01 59 L 12 95/66 L 95 08/07/24 02:31 64 16 107/77 95 08/07/24 02:01 62 15 113/78 95 08/07/24 02:00 66 93 Mechanical Ventilation 60 08/07/24 01:31 66 15 120/82 91 08/07/24 01:22 97.9 F 67 12 117/82 92 08/07/24 00:39 60 92 Mechanical Ventilation 60 08/07/24 00:01 67 12 115/78 94 08/06/24 23:06 97.8 F 72 12 129/83 92 08/06/24 22:31 60 12 113/70 93 08/06/24 21:20 98 F 64 12 126/96 H 93 08/06/24 21:14 60 92 Mechanical Ventilation 60 08/06/24 20:31 66 12 126/78 92 08/06/24 19:33 92 Mechanical Ventilation 08/06/24 19:32 64 08/06/24 19:32 92 Mechanical Ventilation 08/06/24 19:31 97.6 F 63 12 121/83 92 08/06/24 18:45 63 14 116/82 94 08/06/24 18:10 64 92 Mechanical Ventilation 60 08/06/24 18:01 61 10 L 109/73 93 08/06/24 17:31 64 10 L 117/76 94 Exam 2 Narrative: GENERAL APPEARANCE: well developed well nourished male in no acute distress HEENT: normocephalic, atraumatic, normal conjunctiva and sclera, nares patient NECK: no lymphadenopathy, thyromegaly, or JVD; ETT in tracheostomy MOUTH: normal lips, teeth, and gums CARDIOVASCULAR: RRR, normal S1 and S2, no rub detected RESPIRATORY: coarse breath sounds; decreased at bases ABDOMEN: soft, nontender, nondistended, positive bowel sounds present EXTREMITIES: no evidence of cyanosis, clubbing, 2+ edema in UEs and LEs; absent right big toe NEUROLOGICAL: alert and oriented x 3; CN II - XII intact bilaterally; no focal deficits noted Results Lab Results 08/10/24 04:49 08/10/24 04:49 Lab results: Most recent lab results ABG pH 7.279 (7.350-7.450) L* 08/05/24 19:32 ABG pCO2 66.6 mmHg (35.0-45.0) H* 08/05/24 19:32 ABG pO2 102.9 mmHg (80.0-100.0) H 08/05/24 19:32 ABG HCO3 30.5 mEq/l (22.0-26.0) H 08/05/24 19:32 ABG O2 Saturation 96.8 % (95.0-100.0) 08/05/24 19:32 Calcium 8.6 mg/dL (8.4-10.2) 08/07/24 07:23 Magnesium 2.3 mg/dL (1.6-2.3) 08/05/24 09:14
--- NOTE | 2024-08-07 17:16 | ADMGEN ---
This patient, Bubba Saxena, was admitted to Intensive Care Unit-6 AT 1546. Patient/family oriented to hospital policies and general routines including ID bracelet, bed and alarms, visiting hours, pain management, procedures, bathroom and other care routines, personal items, smoking policy, room service/diet, and visiting hours. Information on how to activate the Rapid Response Team has been discussed. Patient/Family are encouraged to report perceived risks to care and to ask questions if they do not understand what they are told or what they should do.
--- NOTE | 2024-08-07 17:17 | PC.NURSE ---
Patient's contact ( Savi) confirmed and phone number obtained from patient at bedside. RN called patients richard Lou for admission information at [phone], no answer, RN left voicemail with call back number.
--- NOTE | 2024-08-07 17:22 | PC.NURSE ---
Spoke to pharmacist at 1722. Patient currently receiving hemodialysis. Instructed to wait until dialysis session is complete to administer prescribed antibiotics.
[2024-08-07 18:27] LABS: MRSA (PCR) NOT DETECTED (NOT DETECTE)
[2024-08-07 19:29] LABS: Glucose Point of Care 89 mg/dl (65-105)
[2024-08-07] MEDS: PANTOPRAZOLE SODIUM IV 40 MG VIAL IV PUSH (20:18)
[2024-08-07] MEDS: AZITHROMYCIN 500 MG/NS 250 ML 500 MG/250 ML BAG 250 MG IVPB (20:30)
[2024-08-07] MEDS: CEFEPIME 1 GM/NS 50 ML 1 GM/50 ML BAG IVPB (20:33)
[2024-08-07] MEDS: VANCOMYCIN 2,000 MG/NS 500 ML 2,000 MG/500 ML BAG 250 MG IVPB (20:41)
[2024-08-07] MEDS: HEPARIN SODIUM 5,000 UNITS/ML VIAL 5000 UNITS SUB-Q (21:18)
[2024-08-08] VITALS (36 sets, daily range): BP systolic 85–146; BP diastolic 62–88; PULSE 53–76; RESP 8–16; TEMP 36.4–36.8; O2SAT 95–100
[2024-08-08] MEDS: NOREPINEPHRINE 8 MG/D5W 250 ML 8 MG/250 ML BAG 3.75 MG IV CONT ×2 (00:19→00:20)
[2024-08-08 00:27] LABS: Glucose Point of Care 63 mg/dl (65-105)
[2024-08-08] MEDS: DEXTROSE 50% 25 GM/50 ML SYRINGE IV PUSH ×3 (00:30→23:26)
[2024-08-08 00:59] LABS: Glucose Point of Care 95 mg/dl (65-105)
--- NOTE | 2024-08-08 03:16 | PC.NURSE ---
Daylight Savings Time For Daylight Savings Time Ending in the Fall - Clocks are moved back. For Daylight Savings Time Beginning in the Spring - Clocks are moved ahead. For [facility], the time of change occurs at 0200 hrs. Time is taken from the cook ship. This entry on the patient's chart recognizes the change in time reflected during documentation. Example: 2 entries for vital signs may be charted for 0200 hrs.
[2024-08-08 05:11] LABS: Alveolar/Arterial O2 Gradient 279.5 mmHg; Base Excess ABG 0.7 mEq/l (+/-2.0); Carboxyhemoglobin 1.3 % THb (0-2.0); Device VENTILATOR; Fractional Inspired Oxygen 60 %; HCO3 ABG 24.8 mEq/l (22.0-26.0); Methemoglobin ABG 0.3 %THb (0-1.5); Modified Allen's Test Pass; Oxygen Content ABG 18.6 %vol (16.0-22.0); Oxyhemoglobin 96.5 % THb (90.0-100.0); PCO2 ABG 38.1 mmHg (35.0-45.0); PO2 ABG 106.4 mmHg (80.0-100.0); PO2 FiO2 Ratio Arterial Blood 1.77 %; Reduced Hemoglobin 1.9 %THb (0-5.0); Site Drawn LEFT RADIAL; Total Hemoglobin 13.6 g/dL (12.0-18.0); pH ABG 7.431 (7.350-7.450)
[2024-08-08 05:12] LABS: Arterial Blood Gas PEEP 6 cmH2O; Arterial Blood Gas Vent Mode ASV
[2024-08-08] MEDS: LEVOTHYROXINE SODIUM INJ 100 MCG/5 ML VIAL 55 MCG IV PUSH (05:43)
[2024-08-08] MEDS: HEPARIN SODIUM 5,000 UNITS/ML VIAL 5000 UNITS SUB-Q ×3 (05:43→20:21)
[2024-08-08 06:27] LABS: INR 1.2; Prothrombin Time 15.7 Seconds (11.1-14.7)
[2024-08-08 06:28] LABS: Partial Thromboplastin Time 37.6 Seconds (22.3-36.8)
[2024-08-08 06:30] LABS: Basophils Percent Auto 0.4 % (0.2-1.2); Eosinophils Percent Auto 0.9 % (0-4.4); Hematocrit 41.2 % (42.0-52.0); Hemoglobin 12.9 g/dL (14.0-18.0); Immature Granulocyte Absolute 0.01 K/mm3 (0.00-0.031); Immature Granulocyte Percent A 0.2 % (0-0.5); Immature Platelet Fraction Pct 3.5 % (0.9-11.2); Lymphocytes Absolute Auto 0.52 K/mm3 (0.9-3.2); Lymphocytes Percent Auto 11.2 % (18.3-44.2); Mean Corpuscular HGB Conc 31.3 g/dl (32-36); Mean Corpuscular Hemoglobin 34.7 pg (26-34); Mean Corpuscular Volume 110.8 fl (80-100); Mean Platelet Volume 10.8 fl (7.4-10.4); Monocytes Absolute Auto 0.5 K/mm3 (0.1-0.6); Neutrophils Absolute Auto 3.5 K/mm3 (1.3-6.7); Neutrophils Percent Auto 76.3 % (45.5-73.1); Platelet Count Result 113 k/mm3 (150-375); Red Blood Count 3.72 M/mm3 (4.6-6.20); Red Cell Distribution Width 17.4 % (11.5-14.5); White Blood Count 4.6 K/mm3 (4.5-10.0)
[2024-08-08 06:31] LABS: Lactic Acid Reflex 1.3 mmol/L (0.7-2.0)
[2024-08-08 06:34] LABS: Alanine Aminotransferase 49 U/L (6-50); Albumin Level 3.6 g/dL (3.5-5.1); Alkaline Phosphatase 118 U/L (38-126); Anion Gap 13 mmol/L (4-12); Aspartate Amino Transferase 38 U/L (17-59); Bilirubin,Total 1.5 mg/dL (0.2-1.3); Blood Urea Nitrogen 37 mg/dL (9-20); Calcium 8.7 mg/dL (8.4-10.2); Carbon Dioxide 26 mmol/L (22-30); Chloride 97 mmol/L (98-107); Estimated CRCL calculation 20 ml/min; Estimated Glomerular Filt Rate 13; Glucose 84 mg/dL (65-110); Phosphorus 5.5 mg/dL (2.5-4.5); Potassium 4.4 mmol/L (3.4-5.0); Sodium 136 mmol/L (137-145)
[2024-08-08 08:01] LABS: Macrocytosis 2+ (NORMAL); Platelet Estimate Adequate (Adequate); Schistocytes None Seen
[2024-08-08] MEDS: PANTOPRAZOLE SODIUM IV 40 MG VIAL IV PUSH (08:59)
--- NOTE | 2024-08-08 09:26 | WPDINTPN ---
Progress Note: A&P Assessment and Plan (1) Pre-syncope: Code(s): R55 - Syncope and collapse Status: Acute Assessment and Plan: Patient presented with dizziness, presyncope as they were doing dialysis on him on 08/05/2024 -patient was hypotensive which could be due to dialysis causing presyncope/dizziness, volume depletion -patient's blood pressures are labile, initially elevated, then blood pressures dropped after hemodialysis requiring Levophed -will check carotid Doppler for completion -08/05/2024: CT brain was normal (2) Hypertension: Code(s): I10 - Essential (primary) hypertension Status: Acute Assessment and Plan: Essential hypertension, will hold all antihypertensives as patient was on Levophed in the ER due to hypotension (3) Hypotension: Code(s): I95.9 - Hypotension, unspecified Status: Acute Assessment and Plan: Likely related to dialysis and fluid removal -currently on Levophed, low-dose (4) Right-sided heart failure: Code(s): I50.810 - Right heart failure, unspecified Status: Acute Assessment and Plan: Patient got dialyzed on 08/24 with 2000 mL in fluid removed (5) Elevated troponin: Code(s): R79.89 - Other specified abnormal findings of blood chemistry Status: Acute Assessment and Plan: Elevated troponin in the ER , plateaued x3 -likely related to end-stage renal disease, hypotension, respiratory distress (6) Hyperlipidemia: Code(s): E78.5 - Hyperlipidemia, unspecified Status: Acute Assessment and Plan: On pravastatin at home, currently will hold (7) Type 2 diabetes mellitus: Code(s): E11.9 - Type 2 diabetes mellitus without complications Status: Acute Assessment and Plan: Sliding scale insulin Accu-Cheks (8) Hypothyroidism: Code(s): E03.9 - Hypothyroidism, unspecified Status: Acute Assessment and Plan: IV Levothyroxine (9) 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 Since we did not have ENT and at [facility] this weekend, ER physician called [facility] with the patient was accepted for ENT to insert a cuffed tracheostomy tube due to his laryngeal anatomy secondary to partial laryngectomy due to laryngeal cancer (10) History of partial laryngectomy: Code(s): Z90.02 - Acquired absence of larynx Status: Acute Assessment and Plan: Secondary to laryngeal CA, tracheostomy dependent (11) End-stage renal disease on hemodialysis: Code(s): N18.6 - End stage renal disease; Z99.2 - Dependence on renal dialysis Status: Acute Assessment and Plan: ESRD on hemodialysis, Friday, , Friday -nephrology following -08/07: HD with 2000 mL in fluid removed (12) Chronic respiratory failure with hypoxia, on home oxygen therapy: Code(s): J96.11 - Chronic respiratory failure with hypoxia; Z99.81 - Dependence on supplemental oxygen Status: Acute Assessment and Plan: Secondary to laryngeal CA, partial laryngectomy, trach dependent obesity hypoventilation syndrome, obstructive sleep apnea given patient's body habitus (13) Abdominal distension: Code(s): R14.0 - Abdominal distension (gaseous) Status: Acute Assessment and Plan: Abdominal distension, likely fluid and air as seen on CT abdomen and pelvis -obstructive series did not show any abdominal pathology Plan DVT prophylaxis: SubQ heparin Stress ulcer prophylaxis: Protonix IV Nutrition: NPO Code Status: Full code Critical Care Time Spent: 34 minutes Due to a high probability of clinically significant, life threatening deterioration, the patient required my highest level of preparedness to intervene emergently and I personally spent this critical care time directly and personally managing the patient. This critical care time included obtaining a history; examining the patient; pulse oximetry; ordering and review of studies; arranging urgent treatment with development of a management plan; evaluation of patient's response to treatment; frequent reassessment; and discussions with other providers. It was exclusive of separately billable procedures and treating other patients and teaching time. Please see Assessment and Plan section and the rest of the note for further information on patient assessment and treatment This dictation may have been done utilizing a voice recognition system. Attempts have been made to correct errors. However, there may be uncorrected grammatical, spelling, and recognitions errors present. Subjective Date/time seen: 08/08/24 09:26 Interval history: Reason for consult: Near syncope, lightheadedness, shortness of breath, respiratory failure abdominal distention, end-stage renal disease on dialysis, shortness of breath, hypotension 08/06: In the ER: Cuffed ET tube was placed through the tracheostomy stoma as the patient was hypoxic, hypercarbic and they could not replace a cuffed tracheostomy tube. Since we did not have ENT and at [facility] this weekend, ER physician called [facility] with the patient was accepted for ENT to insert a cuffed tracheostomy tube due to his laryngeal anatomy secondary to partial laryngectomy due to laryngeal cancer 08/08/2024: Patient seen and examined the ICU, remains on ASV mode of ventilationvia a cuffed ETT through the tracheostomy stoma. Patient is awake, alert, oriented, able to mouth words and get his point across. Patient's blood pressure is labile, sometimes the high and then the suddenly dropped requiring Levophed, currently at 2 mcg. Had dialysis done yesterday with 2000 mL in fluid removal. States he feels much better denies any trouble breathing. ABGs much improved since admission Review of Systems Review of Systems: All systems reviewed & are unremarkable except as noted in HPI and below Exam Narrative: General: Pleasant gentleman, obese, in no acute distress HEENT:? ETT in the tracheostomy tract Neck:? Thick neck Respiratory:? Coarse breath sounds bilaterally, decreased at bases, no wheezing, adequate air entry Cardiac:? Sinus bradycardia, S1-S2 is normal Abdomen:? Soft, distended, nontender, hypoactive bowel sound Extremities:? Bilateral lower extremity chronic venous stasis change, pitting edema bilateral lower extremity, absent big toe on the right foot Neuro:? Patient is awake, alert, oriented, able to mouth words, follows simple commands in all extremities Skin:? Bilat lower extremity venous stasis changes Psych:? Normal mentation and affect Objective Data Vital Signs Vital Signs: Vital Signs - 24 hr 08/07/24 08:31 08/07/24 09:15 08/07/24 09:38 Temperature Pulse Rate 58 L 58 L 58 L Respiratory Rate 20 15 Blood Pressure 122/74 Pulse Oximetry 95 95 95 Oxygen Delivery Mechanical Ventilation Fraction of Inspired Oxygen 60 08/07/24 09:38 08/07/24 10:00 08/07/24 10:01 Temperature Pulse Rate 59 L 64 64 Respiratory Rate 16 20 19 Blood Pressure 132/92 H Pulse Oximetry 94 94 92 Oxygen Delivery Fraction of Inspired Oxygen 08/07/24 11:15 08/07/24 11:31 08/07/24 11:32 Temperature Pulse Rate 57 L 60 58 L Respiratory Rate 19 17 19 Blood Pressure 116/75 133/87 Pulse Oximetry 95 94 93 Oxygen Delivery Fraction of Inspired Oxygen 08/07/24 11:45 08/07/24 12:04 08/07/24 12:05 Temperature Pulse Rate 61 56 L 57 L Respiratory Rate 17 16 Blood Pressure Pulse Oximetry 94 95 97 Oxygen Delivery Mechanical Ventilation Fraction of Inspired Oxygen 60 08/07/24 12:36 08/07/24 12:45 08/07/24 13:00 Temperature Pulse Rate 56 L 58 L 58 L Respiratory Rate 22 H Blood Pressure Pulse Oximetry 96 96 96 Oxygen Delivery Fraction of Inspired Oxygen 08/07/24 13:15 08/07/24 13:52 08/07/24 14:10 Temperature Pulse Rate 57 L 56 L 59 L Respiratory Rate 19 18 Blood Pressure 141/89 H Pulse Oximetry 97 96 97 Oxygen Delivery Mechanical Ventilation Fraction of Inspired Oxygen 60 08/07/24 14:12 08/07/24 14:15 08/07/24 14:30 Temperature Pulse Rate 59 L 62 61 Respiratory Rate 17 23 H 19 Blood Pressure Pulse Oximetry 96 94 94 Oxygen Delivery Fraction of Inspired Oxygen 08/07/24 14:31 08/07/24 14:45 08/07/24 15:37 Temperature Pulse Rate 61 57 L 61 Respiratory Rate 17 19 Blood Pressure 151/90 H Pulse Oximetry 94 95 98 Oxygen Delivery Mechanical Ventilation Fraction of Inspired Oxygen 60 08/07/24 15:46 08/07/24 15:46 08/07/24 15:46 Temperature Pulse Rate 66 55 L Respiratory Rate Blood Pressure 152/93 H Pulse Oximetry 93 Oxygen Delivery Mechanical Ventilation Fraction of Inspired Oxygen 60 08/07/24 15:46 08/07/24 16:00 08/07/24 16:15 Temperature Pulse Rate 66 72 Respiratory Rate 20 Blood Pressure 152/93 H Pulse Oximetry 93 Oxygen Delivery Fraction of Inspired Oxygen 60 08/07/24 16:15 08/07/24 16:20 08/07/24 16:25 Temperature 97.7 F Pulse Rate 57 L 57 L 58 L Respiratory Rate 14 Blood Pressure 144/90 H 152/97 H Pulse Oximetry 100 100 Oxygen Delivery Mechanical Ventilation Fraction of Inspired Oxygen 60 08/07/24 16:30 08/07/24 16:45 08/07/24 17:00 Temperature Pulse Rate 57 L 61 55 L Respiratory Rate Blood Pressure 154/99 H 132/96 H 138/82 Pulse Oximetry Oxygen Delivery Fraction of Inspired Oxygen 08/07/24 17:00 08/07/24 17:15 08/07/24 17:30 Temperature Pulse Rate 55 L 63 57 L Respiratory Rate Blood Pressure 138/82 144/92 H 141/92 H Pulse Oximetry Oxygen Delivery Fraction of Inspired Oxygen 08/07/24 17:45 08/07/24 18:00 08/07/24 18:00 Temperature 98.3 F Pulse Rate 54 L 56 L 57 L Respiratory Rate 17 Blood Pressure 127/82 131/81 131/81 Pulse Oximetry 100 Oxygen Delivery Fraction of Inspired Oxygen 08/07/24 18:00 08/07/24 18:00 08/07/24 18:15 Temperature Pulse Rate 57 L 58 L 63 Respiratory Rate Blood Pressure 131/81 154/92 H Pulse Oximetry Oxygen Delivery Fraction of Inspired Oxygen 08/07/24 18:30 08/07/24 18:45 08/07/24 19:00 Temperature Pulse Rate 57 L 55 L 55 L Respiratory Rate Blood Pressure 138/86 126/80 130/80 Pulse Oximetry Oxygen Delivery Fraction of Inspired Oxygen 08/07/24 19:00 08/07/24 19:15 08/07/24 19:25 Temperature Pulse Rate 54 L 59 L 62 Respiratory Rate Blood Pressure 130/80 139/95 H 155/98 H Pulse Oximetry Oxygen Delivery Fraction of Inspired Oxygen 08/07/24 20:00 08/07/24 20:00 08/07/24 20:00 Temperature 97.7 F 97.9 F Pulse Rate 63 66 64 Respiratory Rate 15 15 Blood Pressure 164/96 H 148/90 H Pulse Oximetry 100 100 Oxygen Delivery Fraction of Inspired Oxygen 08/07/24 20:00 08/07/24 20:52 08/07/24 21:00 Temperature Pulse Rate 56 L 56 L Respiratory Rate 14 Blood Pressure 80/58 L 72/58 L Pulse Oximetry Oxygen Delivery Fraction of Inspired Oxygen 60 08/07/24 21:01 08/07/24 21:06 08/07/24 21:16 Temperature Pulse Rate 57 L 55 L 62 Respiratory Rate Blood Pressure 72/58 L 75/58 L 139/91 H Pulse Oximetry Oxygen Delivery Fraction of Inspired Oxygen 08/07/24 21:30 08/07/24 21:45 08/07/24 22:00 Temperature Pulse Rate 61 62 62 Respiratory Rate 14 Blood Pressure 146/98 H 154/93 H 150/107 H Pulse Oximetry Oxygen Delivery Fraction of Inspired Oxygen 08/07/24 22:00 08/07/24 22:04 08/07/24 22:20 Temperature Pulse Rate 62 62 60 Respiratory Rate Blood Pressure 150/17 H 142/87 H Pulse Oximetry Oxygen Delivery Fraction of Inspired Oxygen 08/07/24 22:30 08/07/24 22:47 08/07/24 23:00 Temperature Pulse Rate 60 66 57 L Respiratory Rate 14 Blood Pressure 136/87 153/95 H 111/70 Pulse Oximetry Oxygen Delivery Fraction of Inspired Oxygen 08/07/24 23:37 08/08/24 00:00 08/08/24 00:00 Temperature 98.0 F Pulse Rate 54 L 54 L 55 L Respiratory Rate 14 Blood Pressure 112/75 112/75 Pulse Oximetry 94 95 Oxygen Delivery Mechanical Ventilation Fraction of Inspired Oxygen 60 08/08/24 00:00 08/08/24 00:00 08/08/24 00:19 Temperature Pulse Rate 55 L 57 L Respiratory Rate Blood Pressure 137/86 Pulse Oximetry Oxygen Delivery Fraction of Inspired Oxygen 60 08/08/24 00:20 08/08/24 01:00 08/08/24 01:43 Temperature Pulse Rate 57 L 61 59 L Respiratory Rate 14 Blood Pressure 137/86 132/87 Pulse Oximetry 100 Oxygen Delivery Mechanical Ventilation Fraction of Inspired Oxygen 60 08/08/24 01:59 08/08/24 03:00 08/08/24 03:00 Temperature Pulse Rate 60 60 60 Respiratory Rate Blood Pressure 119/81 119/81 119/81 Pulse Oximetry Oxygen Delivery Fraction of Inspired Oxygen 08/08/24 03:00 08/08/24 04:00 08/08/24 04:00 Temperature Pulse Rate 60 54 L Respiratory Rate Blood Pressure Pulse Oximetry Oxygen Delivery Fraction of Inspired Oxygen 60 08/08/24 04:00 08/08/24 04:00 08/08/24 05:00 Temperature 98.1 F Pulse Rate 57 L 57 L 58 L Respiratory Rate 8 L 13 Blood Pressure 118/74 118/74 134/82 Pulse Oximetry 100 100 Oxygen Delivery Fraction of Inspired Oxygen 08/08/24 05:01 08/08/24 06:00 08/08/24 06:00 Temperature Pulse Rate 59 L 58 L 58 L Respiratory Rate 9 L Blood Pressure 110/74 Pulse Oximetry 100 100 Oxygen Delivery Mechanical Ventilation Fraction of Inspired Oxygen 60 08/08/24 06:00 08/08/24 08:00 08/08/24 08:00 Temperature 98.3 F Pulse Rate 58 L 57 L 58 L Respiratory Rate 14 Blood Pressure 110/74 128/76 128/76 Pulse Oximetry 99 Oxygen Delivery Fraction of Inspired Oxygen 08/08/24 08:15 Temperature Pulse Rate 62 Respiratory Rate Blood Pressure Pulse Oximetry 99 Oxygen Delivery Mechanical Ventilation Fraction of Inspired Oxygen 40 Intake/Output Intake/Output: Intake & Output 08/05/24 08/06/24 08/07/24 08/09/24 23:59 23:59 23:59 00:59 Intake Total 1000 3505.1 3699.2 37.1 Output Total 0 2000 150 Balance 1000 3505.1 1699.2 -112.9 Meds/Results Medications: Active Medications Generic Name Dose Route Start Last Admin Trade Name Freq PRN Reason Stop Dose Admin Dextrose 12.5 gm 08/07/24 16:42 08/08/24 00:30 Dextrose 50% 25 Gm/50 Ml Syringe IV PUSH 12.5 gm PRN PRN Administration Hypoglycemia Protocol Glucagon 1 mg 08/07/24 16:42 Glucagon For Inj 1 Mg Vial IM PRN PRN Hypoglycemia Protocol Glucose 15 gm 08/07/24 16:42 Glucose Oral Gel 15 Gm Of Glucse In 37.5 Gm Tube PO PRN PRN Hypoglycemia Protocol Heparin Sodium (Porcine) 5,000 units 08/07/24 22:00 08/08/24 05:43 Heparin Sodium 5,000 Units/Ml Vial SUB-Q 5,000 units Q8HR ISELA Administration Albumin Human 50 mls @ 999 mls/hr 08/07/24 15:18 Albutein IVPB 09/06/24 15:17 Q10M PRN HYPOTENSION Cefepime HCl 1 gm in 50 mls @ 100 mls/hr 08/07/24 21:00 08/07/24 21:03 Maxipime 1 Gm/Ns 50 Ml IVPB Infused Q24H ISELA Infusion Dextrose 1,000 mls @ 100 mls/hr 08/07/24 16:42 Dextrose 5% 1,000 Ml IVPB PRN PRN Hypoglycemia Protocol Azithromycin 500 mg in 250 mls @ 250 mls/hr 08/07/24 21:00 08/07/24 21:30 Zithromax IVPB Infused Q24H ISELA Infusion Norepinephrine Bitartrate 8 mg in 250 mls @ 1.875 mls/hr 08/08/24 07:05 08/08/24 08:00 Levophed 8 Mg/D5w 250 Ml IV CONT 1 mcg/min .Q24H ISELA 1.88 mls/hr Titration Protocol 1 MCG/MIN Insulin Aspart 3 - 6 units 08/07/24 18:00 08/08/24 08:51 Insulin Aspart (*Bkc) 100 Units/Ml SUB-Q Not Given Q6HR ISELA Protocol Levothyroxine Sodium 55 mcg 08/08/24 06:30 08/08/24 05:43 Levothyroxine Sodium Inj 100 Mcg/5 Ml Vial IV PUSH 55 mcg DAILY@0630 ISELA Administration Pantoprazole Sodium 40 mg 08/07/24 17:00 08/08/24 08:59 Pantoprazole Sodium Iv 40 Mg Vial IV PUSH 40 mg QAM ISELA Administration Vancomycin HCl 1 each 08/07/24 16:05 Vancomycin For Hemodialysis IVPB PRN PRN Vancomycin Protocol Radiology Results: ITS Impressions Head CT 08/05/24 14:14 IMPRESSION: 1. Normal aging brain. Chest/Abdomen/Pelvis CTA 08/05/24 14:21 IMPRESSION: No pulmonary embolus. No aortic dissection. Bilateral pleural effusions (right greater than left) with adjacent compressive atelectasis on the right and adjacent consolidation on the left. Tracheostomy extends into the right mainstem bronchus, for which resizing is suggested. Hepatosplenomegaly. Significant gaseous distention of the colon with retained gastric contents. Air opacification of the colon which is also distended. Intra-abdominal ascites. Congenital persistent left-sided inferior vena cava. Moderate anasarca Cholelithiasis without cholecystitis. Abdomen X-Ray 08/07/24 20:42 IMPRESSION: NO ACUTE ABDOMINAL FINDINGS. Chest X-Ray 08/08/24 06:38 Impression: Moderate pulmonary edema pattern with small to moderate bilateral pleural effusions. Stable cardiomegaly. Labs Labs: Laboratory Results - last 24 hr 08/07/24 08/07/24 08/07/24 08:40 10:59 12:38 WBC RBC Hgb Hct MCV MCH MCHC RDW Plt Count MPV Immature Gran % (Auto) Neut % (Auto) Lymph % (Auto) [place] % (Auto) Eos % (Auto) Baso % (Auto) Lymph # (Auto) [place] # (Auto) Eos # (Auto) Baso # (Auto) Abs Immat Gran (auto) Absolute Neuts (auto) Absolute Nucleated RBC Band Neutrophils % Nucleated RBC % Platelet Estimate % Immature Plt Fraction Macrocytosis Schistocytes PT INR APTT Puncture Site ABG pH ABG pCO2 ABG pO2 ABG PO2/FiO2 Ratio ABG HCO3 ABG O2 Saturation ABG O2 Content ABG Base Excess A-a Gradient Oxyhemoglobin Carboxyhemoglobin Methemoglobin Reduced Hemoglobin Total Hemoglobin O2 Delivery Device O2 Liters/Min Minute Volume Vent Rate Vent Mode FiO2 Tidal Volume PEEP Peak Inspir Pressure Pressure Support Sodium Potassium Chloride Carbon Dioxide Anion Gap BUN Creatinine Estim Creat Clear Calc Estimated GFR Glucose POC Capillary Glucose 106 H 83 79 Lactic Acid Calcium Phosphorus Magnesium Total Bilirubin AST ALT Alkaline Phosphatase Total Protein Albumin Nasal MRSA (PCR) Hep Bs Antigen Hep Bs Antibody 08/07/24 08/07/24 08/07/24 13:35 15:21 17:08 WBC RBC Hgb Hct MCV MCH MCHC RDW Plt Count MPV Immature Gran % (Auto) Neut % (Auto) Lymph % (Auto) [place] % (Auto) Eos % (Auto) Baso % (Auto) Lymph # (Auto) [place] # (Auto) Eos # (Auto) Baso # (Auto) Abs Immat Gran (auto) Absolute Neuts (auto) Absolute Nucleated RBC Band Neutrophils % Nucleated RBC % Platelet Estimate % Immature Plt Fraction Macrocytosis Schistocytes PT INR APTT Puncture Site ABG pH ABG pCO2 ABG pO2 ABG PO2/FiO2 Ratio ABG HCO3 ABG O2 Saturation ABG O2 Content ABG Base Excess A-a Gradient Oxyhemoglobin Carboxyhemoglobin Methemoglobin Reduced Hemoglobin Total Hemoglobin O2 Delivery Device O2 Liters/Min Minute Volume Vent Rate Vent Mode FiO2 Tidal Volume PEEP Peak Inspir Pressure Pressure Support Sodium Potassium Chloride Carbon Dioxide Anion Gap BUN Creatinine Estim Creat Clear Calc Estimated GFR Glucose POC Capillary Glucose 102 Lactic Acid Calcium Phosphorus Magnesium Total Bilirubin AST ALT Alkaline Phosphatase Total Protein Albumin Nasal MRSA (PCR) Not detected Hep Bs Antigen Negative Hep Bs Antibody Negative 08/07/24 08/08/24 08/08/24 19:26 00:23 00:57 WBC RBC Hgb Hct MCV MCH MCHC RDW Plt Count MPV Immature Gran % (Auto) Neut % (Auto) Lymph % (Auto) [place] % (Auto) Eos % (Auto) Baso % (Auto) Lymph # (Auto) [place] # (Auto) Eos # (Auto) Baso # (Auto) Abs Immat Gran (auto) Absolute Neuts (auto) Absolute Nucleated RBC Band Neutrophils % Nucleated RBC % Platelet Estimate % Immature Plt Fraction Macrocytosis Schistocytes PT INR APTT Puncture Site ABG pH ABG pCO2 ABG pO2 ABG PO2/FiO2 Ratio ABG HCO3 ABG O2 Saturation ABG O2 Content ABG Base Excess A-a Gradient Oxyhemoglobin Carboxyhemoglobin Methemoglobin Reduced Hemoglobin Total Hemoglobin O2 Delivery Device O2 Liters/Min Minute Volume Vent Rate Vent Mode FiO2 Tidal Volume PEEP Peak Inspir Pressure Pressure Support Sodium Potassium Chloride Carbon Dioxide Anion Gap BUN Creatinine Estim Creat Clear Calc Estimated GFR Glucose POC Capillary Glucose 89 63 L 95 Lactic Acid Calcium Phosphorus Magnesium Total Bilirubin AST ALT Alkaline Phosphatase Total Protein Albumin Nasal MRSA (PCR) Hep Bs Antigen Hep Bs Antibody 08/08/24 08/08/24 04:27 05:50 WBC 4.6 RBC 3.72 L Hgb 12.9 L Hct 41.2 L MCV 110.8 H MCH 34.7 H MCHC 31.3 L RDW 17.4 H Plt Count 113 L MPV 10.8 H Immature Gran % (Auto) 0.2 Neut % (Auto) 76.3 H Lymph % (Auto) 11.2 L [place] % (Auto) 11.0 H Eos % (Auto) 0.9 Baso % (Auto) 0.4 Lymph # (Auto) 0.52 L [place] # (Auto) 0.5 Eos # (Auto) 0.0 Baso # (Auto) 0.0 Abs Immat Gran (auto) 0.01 Absolute Neuts (auto) 3.5 Absolute Nucleated RBC 0.000 Band Neutrophils % Not Reportable Nucleated RBC % 0.0 Platelet Estimate Adequate % Immature Plt Fraction 3.5 Macrocytosis 2+ Schistocytes None seen PT 15.7 H INR 1.2 APTT 37.6 H Puncture Site Left radial ABG pH 7.431 ABG pCO2 38.1 ABG pO2 106.4 H ABG PO2/FiO2 Ratio 1.77 ABG HCO3 24.8 ABG O2 Saturation 98.0 ABG O2 Content 18.6 ABG Base Excess 0.7 A-a Gradient 279.5 Oxyhemoglobin 96.5 Carboxyhemoglobin 1.3 Methemoglobin 0.3 Reduced Hemoglobin 1.9 Total Hemoglobin 13.6 O2 Delivery Device Ventilator O2 Liters/Min Not Reportable Minute Volume Not Reportable Vent Rate Not Reportable Vent Mode Asv FiO2 60 Tidal Volume Not Reportable PEEP 6 Peak Inspir Pressure Not Reportable Pressure Support Not Reportable Sodium 136 L Potassium 4.4 Chloride 97 L Carbon Dioxide 26 Anion Gap 13 H BUN 37 H Creatinine 4.54 H Estim Creat Clear Calc 20 Estimated GFR 13 L Glucose 84 POC Capillary Glucose Lactic Acid 1.3 Calcium 8.7 Phosphorus 5.5 H Magnesium 2.0 Total Bilirubin 1.5 H AST 38 ALT 49 Alkaline Phosphatase 118 Total Protein 6.0 L Albumin 3.6 Nasal MRSA (PCR) Hep Bs Antigen Hep Bs Antibody Quality VTE Prophylaxis VTE prophylaxis: pharmacologic ordered
--- NOTE | 2024-08-08 10:54 | P.PNNP_ITS ---
Progress Note: A&P Assessment and Plan (1) End stage renal disease: Code(s): N18.6 - End stage renal disease Status: Chronic Assessment and Plan: * HD yesterday * continue Friday//Friday dialysis schedule while hospitalized * received on partial treatment on (08/06) prior to ER prese * follow electrolytes, volume status, and clearance * primary tax evaluator = Dr. Isaiah Davis * outpatient dialysis unit = [facility] (2) Pre-syncope: Code(s): R55 - Syncope and collapse Status: Acute Assessment and Plan: * presented with this and dizziness during outpatient dialysis treatment on 08/05/24 * suspect secondary to hypotension as noted by vital signs in ER * clinically better with better blood pressure readings * CT of brain (08/05) negatibe * checking carotid dopplers * monitor telemetry (3) Hypotension: Code(s): I95.9 - Hypotension, unspecified Status: Acute Assessment and Plan: * resolved if not better at this time * presumably due to dialysis treatment and accompanying ultrafiltration/fluid removal * however, does have significant swelling/edema on exam... * was requiring low dose levophed (initiated in ER) * weaned off vasopressor therapy * known history of hypertension * all BP medications on hold currently * follow trend of hemodynamics (4) Chronic respiratory failure with hypoxia, on home oxygen therapy: Code(s): J96.11 - Chronic respiratory failure with hypoxia; Z99.81 - Dependence on supplemental oxygen Status: Acute Assessment and Plan: * due to laryngeal cancer s/p, partial laryngectomy, obesity hypoventilation syndrome, and obstructive sleep apnea * currently tracheostomy dependent * trach replaced with ETT in ER * on mechanical ventilation at this time * awaiting transfer to [facility] for ENT evaluation of tracheostomy (5) Volume overload: Code(s): E87.70 - Fluid overload, unspecified Status: Acute Assessment and Plan: * as evidenced by exam * fluid removal with HD as tolerated by hemodynamics * may need an extra HD/DUF session as well...given recent imaging * tentatively plan DUF treatment tomorrow (6) Type 2 diabetes mellitus: Code(s): E11.9 - Type 2 diabetes mellitus without complications Status: Chronic Assessment and Plan: * follow accu-cheks * glycemic control per hospitalist/superintendent schools Will continue to follow. L Subjective Date/time seen: 08/08/24 10:54 Interval history: Follow-up for end stage renal disease on hemodialysis. Tolerated dialysis treatment yesterday without any issues or problems; remains on mechanical ventilation via ETT through tracheostomy stoma; labile blood pressures noted with vasopressor therapy weaned off; awake and alert - able to mouth words to make needs known; overall; no apparent distress voiced and states he feels better in comparison to admission. Exam 2 Narrative: General: WD/WN male in NAD Heart: normal S1 and S2; no rub Lungs: coarse with decreased breath sounds at bases Abdomen: soft, nontender, nondistended, positive bowel sounds Extremities: no cyanosis or clubbing; 1 - 2+ edema in UEs and LEs Skin: warm and dry Objective Data Vital Signs Vital Signs: Vital Signs Temp Pulse Resp BP Pulse Ox O2 Del Method FiO2 08/08/24 10:45 66 99 Mechanical Ventilation 40 08/08/24 10:00 73 16 127/80 100 08/08/24 10:00 65 08/08/24 10:00 76 134/85 08/08/24 08:15 62 99 Mechanical Ventilation 40 08/08/24 08:00 59 L 08/08/24 08:00 40 08/08/24 08:00 99 Mechanical Ventilation 40 08/08/24 08:00 58 L 128/76 08/08/24 08:00 98.3 F 57 L 14 128/76 99 08/08/24 06:00 58 L 110/74 08/08/24 06:00 58 L 9 L 110/74 100 08/08/24 06:00 58 L 08/08/24 05:01 59 L 100 Mechanical Ventilation 60 08/08/24 05:00 58 L 13 134/82 100 08/08/24 04:00 57 L 118/74 08/08/24 04:00 98.1 F 57 L 8 L 118/74 100 08/08/24 04:00 60 08/08/24 04:00 54 L 08/08/24 03:00 60 08/08/24 03:00 60 119/81 08/08/24 03:00 60 119/81 08/08/24 01:59 60 119/81 08/08/24 01:43 59 L 100 Mechanical Ventilation 60 08/08/24 01:00 61 14 132/87 08/08/24 00:20 57 L 137/86 08/08/24 00:19 57 L 137/86 08/08/24 00:00 60 08/08/24 00:00 55 L 08/08/24 00:00 98.0 F 55 L 14 112/75 95 08/08/24 00:00 54 L 112/75 08/07/24 23:37 54 L 94 Mechanical Ventilation 60 08/07/24 23:00 57 L 14 111/70 08/07/24 22:47 66 153/95 H 08/07/24 22:30 60 136/87 08/07/24 22:20 60 142/87 H 08/07/24 22:04 62 150/17 H 08/07/24 22:00 62 08/07/24 22:00 62 14 150/107 H 08/07/24 21:45 62 154/93 H 08/07/24 21:30 61 146/98 H 08/07/24 21:16 62 139/91 H 08/07/24 21:06 55 L 75/58 L 08/07/24 21:01 57 L 72/58 L 08/07/24 21:00 56 L 14 72/58 L 08/07/24 20:52 56 L 80/58 L 08/07/24 20:00 60 08/07/24 20:00 64 08/07/24 20:00 97.9 F 66 15 148/90 H 100 08/07/24 20:00 97.7 F 63 15 164/96 H 100 08/07/24 19:25 62 155/98 H 08/07/24 19:15 59 L 139/95 H 08/07/24 19:00 54 L 130/80 08/07/24 19:00 55 L 130/80 08/07/24 18:45 55 L 126/80 08/07/24 18:30 57 L 138/86 08/07/24 18:15 63 154/92 H 08/07/24 18:00 58 L 08/07/24 18:00 57 L 131/81 08/07/24 18:00 98.3 F 57 L 17 131/81 100 08/07/24 18:00 56 L 131/81 08/07/24 17:45 54 L 127/82 08/07/24 17:30 57 L 141/92 H 08/07/24 17:15 63 144/92 H 08/07/24 17:00 55 L 138/82 08/07/24 17:00 55 L 138/82 08/07/24 16:45 61 132/96 H 08/07/24 16:30 57 L 154/99 H 08/07/24 16:25 58 L 152/97 H 08/07/24 16:20 57 L 100 Mechanical Ventilation 60 08/07/24 16:15 97.7 F 57 L 14 144/90 H 100 08/07/24 16:15 60 08/07/24 16:00 72 08/07/24 15:46 66 20 152/93 H 93 08/07/24 15:46 93 Mechanical Ventilation 60 08/07/24 15:46 55 L 08/07/24 15:46 66 152/93 H 08/07/24 15:37 61 98 Mechanical Ventilation 60 08/07/24 14:45 57 L 19 95 08/07/24 14:31 61 17 151/90 H 94 08/07/24 14:30 61 19 94 Intake/Output Intake/Output: Intake & Output 08/05/24 08/06/24 08/07/24 08/09/24 23:59 23:59 23:59 00:59 Intake Total 1000 3505.1 3699.2 40.9 Output Total 0 2000 150 Balance 1000 3505.1 1699.2 -109.1 Meds/Results Medications: Active Medications Generic Name Dose Route Start Last Admin Trade Name Freq PRN Reason Stop Dose Admin Dextrose 12.5 gm 08/07/24 16:42 08/08/24 00:30 Dextrose 50% 25 Gm/50 Ml Syringe IV PUSH 12.5 gm PRN PRN Administration Hypoglycemia Protocol Glucagon 1 mg 08/07/24 16:42 Glucagon For Inj 1 Mg Vial IM PRN PRN Hypoglycemia Protocol Glucose 15 gm 08/07/24 16:42 Glucose Oral Gel 15 Gm Of Glucse In 37.5 Gm Tube PO PRN PRN Hypoglycemia Protocol Heparin Sodium (Porcine) 5,000 units 08/07/24 22:00 08/08/24 13:28 Heparin Sodium 5,000 Units/Ml Vial SUB-Q 5,000 units Q8HR ISELA Administration Albumin Human 50 mls @ 999 mls/hr 08/07/24 15:18 Albutein IVPB 09/06/24 15:17 Q10M PRN HYPOTENSION Cefepime HCl 1 gm in 50 mls @ 100 mls/hr 08/07/24 21:00 08/07/24 21:03 Maxipime 1 Gm/Ns 50 Ml IVPB Infused Q24H ISELA Infusion Dextrose 1,000 mls @ 100 mls/hr 08/07/24 16:42 Dextrose 5% 1,000 Ml IVPB PRN PRN Hypoglycemia Protocol Azithromycin 500 mg in 250 mls @ 250 mls/hr 08/07/24 21:00 08/07/24 21:30 Zithromax IVPB Infused Q24H ISELA Infusion Norepinephrine Bitartrate 8 mg in 250 mls @ 0 mls/hr 08/08/24 07:05 08/08/24 12:00 Levophed 8 Mg/D5w 250 Ml IV CONT 0 mcg/min .Q0M ISELA 0 mls/hr Titration Protocol Insulin Aspart 3 - 6 units 08/07/24 18:00 08/08/24 13:16 Insulin Aspart (*Bkc) 100 Units/Ml SUB-Q Not Given Q6HR [facility] Protocol Levothyroxine Sodium 55 mcg 08/08/24 06:30 08/08/24 05:43 Levothyroxine Sodium Inj 100 Mcg/5 Ml Vial IV PUSH 55 mcg DAILY@0630 ISELA Administration Pantoprazole Sodium 40 mg 08/07/24 17:00 08/08/24 08:59 Pantoprazole Sodium Iv 40 Mg Vial IV PUSH 40 mg QAM ISELA Administration Vancomycin HCl 1 each 08/07/24 16:05 Vancomycin For Hemodialysis IVPB PRN PRN Vancomycin Protocol Radiology Results: ITS Impressions Head CT 08/05/24 14:14 IMPRESSION: 1. Normal aging brain. Chest/Abdomen/Pelvis CTA 08/05/24 14:21 IMPRESSION: No pulmonary embolus. No aortic dissection. Bilateral pleural effusions (right greater than left) with adjacent compressive atelectasis on the right and adjacent consolidation on the left. Tracheostomy extends into the right mainstem bronchus, for which resizing is suggested. Hepatosplenomegaly. Significant gaseous distention of the colon with retained gastric contents. Air opacification of the colon which is also distended. Intra-abdominal ascites. Congenital persistent left-sided inferior vena cava. Moderate anasarca Cholelithiasis without cholecystitis. Chest X-Ray 08/08/24 06:38 Impression: Moderate pulmonary edema pattern with small to moderate bilateral pleural effusions. Stable cardiomegaly. Labs Labs: Laboratory Tests 08/08/24 05:50 08/08/24 05:50 Lactic Acid 1.3 Calcium 8.7 Phosphorus 5.5 H Magnesium 2.0 Total Bilirubin 1.5 H AST 38 ALT 49 Alkaline Phosphatase 118 Total Protein 6.0 L Albumin 3.6 Microbiology 08/07/24 17:08 Sputum Sputum Culture - Preliminary 08/06/24 13:12 Urine Clean Catch Urine Culture - Final
[2024-08-08 12:39] LABS: Glucose Point of Care 75 mg/dl (65-105)
--- NOTE | 2024-08-08 14:05 | PM.IMPN ---
Progress Note: A&P Assessment and Plan (1) Pre-syncope: Code(s): R55 - Syncope and collapse Status: Acute Assessment and Plan: Patient presented with dizziness, presyncope as they were doing dialysis on him on 08/05/2024 -patient was hypotensive which could be due to dialysis causing presyncope/dizziness, volume depletion -patient's blood pressures are labile, initially elevated, then blood pressures dropped after hemodialysis requiring Levophed -Carotid Doppler pending -08/05/2024: CT brain was normal (2) Hypertension: Code(s): I10 - Essential (primary) hypertension Status: Acute Assessment and Plan: Essential hypertension, will hold all antihypertensives as patient was on Levophed in the ER due to hypotension (3) Hypotension: Code(s): I95.9 - Hypotension, unspecified Status: Acute Assessment and Plan: Likely related to dialysis and fluid removal -currently on Levophed, low-dose (4) Right-sided heart failure: Code(s): I50.810 - Right heart failure, unspecified Status: Acute Assessment and Plan: Patient got dialyzed on 08/24 with 2000 mL in fluid removed (5) Elevated troponin: Code(s): R79.89 - Other specified abnormal findings of blood chemistry Status: Acute Assessment and Plan: Elevated troponin in the ER , plateaued x3 -likely related to end-stage renal disease, hypotension, respiratory distress (6) Hyperlipidemia: Code(s): E78.5 - Hyperlipidemia, unspecified Status: Acute Assessment and Plan: On pravastatin at home, currently will hold (7) Type 2 diabetes mellitus: Code(s): E11.9 - Type 2 diabetes mellitus without complications Status: Acute Assessment and Plan: Sliding scale insulin Accu-Cheks (8) Hypothyroidism: Code(s): E03.9 - Hypothyroidism, unspecified Status: Acute Assessment and Plan: IV Levothyroxine (9) 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 Since we did not have ENT and at [facility] this weekend, ER physician called [facility] with the patient was accepted for ENT to insert a cuffed tracheostomy tube due to his laryngeal anatomy secondary to partial laryngectomy due to laryngeal cancer (10) History of partial laryngectomy: Code(s): Z90.02 - Acquired absence of larynx Status: Acute Assessment and Plan: Secondary to laryngeal CA, tracheostomy dependent (11) End-stage renal disease on hemodialysis: Code(s): N18.6 - End stage renal disease; Z99.2 - Dependence on renal dialysis Status: Acute Assessment and Plan: ESRD on hemodialysis, Friday, , Friday -nephrology following -08/07: HD with 2000 mL in fluid removed (12) Chronic respiratory failure with hypoxia, on home oxygen therapy: Code(s): J96.11 - Chronic respiratory failure with hypoxia; Z99.81 - Dependence on supplemental oxygen Status: Acute Assessment and Plan: Secondary to laryngeal CA, partial laryngectomy, trach dependent obesity hypoventilation syndrome, obstructive sleep apnea given patient's body habitus (13) Abdominal distension: Code(s): R14.0 - Abdominal distension (gaseous) Status: Acute Assessment and Plan: Abdominal distension, likely fluid and air as seen on CT abdomen and pelvis -obstructive series did not show any abdominal pathology Plan DVT prophylaxis: SubQ heparin Stress ulcer prophylaxis: Protonix IV Nutrition: NPO Full code Subjective Date/time seen: 08/08/24 14:05 Interval history: Comfortable at bedside Awaiting [facility] transfer Review of Systems Review of Systems: 12 systems were reviewed and are negative except for as per HPI. All systems reviewed & are unremarkable except as noted in HPI and below Exam Narrative: General: Pleasant gentleman, obese, in no acute distress HEENT:? ETT in the tracheostomy tract Neck:? Thick neck Respiratory:? Coarse breath sounds bilaterally, decreased at bases, no wheezing, adequate air entry Cardiac:? Sinus bradycardia, S1-S2 is normal Abdomen:? Soft, distended, nontender, hypoactive bowel sound Extremities:? Bilateral lower extremity chronic venous stasis change, pitting edema bilateral lower extremity, absent big toe on the right foot Neuro:? Patient is awake, alert, oriented, able to mouth words, follows simple commands in all extremities Skin:? Bilat lower extremity venous stasis changes Psych:? Normal mentation and affect Objective Data Vital Signs Vital Signs: Vital Signs - 24 hr 08/07/24 13:15 08/07/24 13:52 08/07/24 14:10 Temperature Pulse Rate 57 L 56 L 59 L Respiratory Rate 19 18 Blood Pressure 141/89 H Pulse Oximetry 97 96 97 Oxygen Delivery Mechanical Ventilation Fraction of Inspired Oxygen 60 08/07/24 14:12 08/07/24 14:15 08/07/24 14:30 Temperature Pulse Rate 59 L 62 61 Respiratory Rate 17 23 H 19 Blood Pressure Pulse Oximetry 96 94 94 Oxygen Delivery Fraction of Inspired Oxygen 08/07/24 14:31 08/07/24 14:45 08/07/24 15:37 Temperature Pulse Rate 61 57 L 61 Respiratory Rate 17 19 Blood Pressure 151/90 H Pulse Oximetry 94 95 98 Oxygen Delivery Mechanical Ventilation Fraction of Inspired Oxygen 60 08/07/24 15:46 08/07/24 15:46 08/07/24 15:46 Temperature Pulse Rate 66 55 L Respiratory Rate Blood Pressure 152/93 H Pulse Oximetry 93 Oxygen Delivery Mechanical Ventilation Fraction of Inspired Oxygen 60 08/07/24 15:46 08/07/24 16:00 08/07/24 16:15 Temperature Pulse Rate 66 72 Respiratory Rate 20 Blood Pressure 152/93 H Pulse Oximetry 93 Oxygen Delivery Fraction of Inspired Oxygen 60 08/07/24 16:15 08/07/24 16:20 08/07/24 16:25 Temperature 97.7 F Pulse Rate 57 L 57 L 58 L Respiratory Rate 14 Blood Pressure 144/90 H 152/97 H Pulse Oximetry 100 100 Oxygen Delivery Mechanical Ventilation Fraction of Inspired Oxygen 60 08/07/24 16:30 08/07/24 16:45 08/07/24 17:00 Temperature Pulse Rate 57 L 61 55 L Respiratory Rate Blood Pressure 154/99 H 132/96 H 138/82 Pulse Oximetry Oxygen Delivery Fraction of Inspired Oxygen 08/07/24 17:00 08/07/24 17:15 08/07/24 17:30 Temperature Pulse Rate 55 L 63 57 L Respiratory Rate Blood Pressure 138/82 144/92 H 141/92 H Pulse Oximetry Oxygen Delivery Fraction of Inspired Oxygen 08/07/24 17:45 08/07/24 18:00 08/07/24 18:00 Temperature 98.3 F Pulse Rate 54 L 56 L 57 L Respiratory Rate 17 Blood Pressure 127/82 131/81 131/81 Pulse Oximetry 100 Oxygen Delivery Fraction of Inspired Oxygen 08/07/24 18:00 08/07/24 18:00 08/07/24 18:15 Temperature Pulse Rate 57 L 58 L 63 Respiratory Rate Blood Pressure 131/81 154/92 H Pulse Oximetry Oxygen Delivery Fraction of Inspired Oxygen 08/07/24 18:30 08/07/24 18:45 08/07/24 19:00 Temperature Pulse Rate 57 L 55 L 55 L Respiratory Rate Blood Pressure 138/86 126/80 130/80 Pulse Oximetry Oxygen Delivery Fraction of Inspired Oxygen 08/07/24 19:00 08/07/24 19:15 08/07/24 19:25 Temperature Pulse Rate 54 L 59 L 62 Respiratory Rate Blood Pressure 130/80 139/95 H 155/98 H Pulse Oximetry Oxygen Delivery Fraction of Inspired Oxygen 08/07/24 20:00 08/07/24 20:00 08/07/24 20:00 Temperature 97.7 F 97.9 F Pulse Rate 63 66 64 Respiratory Rate 15 15 Blood Pressure 164/96 H 148/90 H Pulse Oximetry 100 100 Oxygen Delivery Fraction of Inspired Oxygen 08/07/24 20:00 08/07/24 20:52 08/07/24 21:00 Temperature Pulse Rate 56 L 56 L Respiratory Rate 14 Blood Pressure 80/58 L 72/58 L Pulse Oximetry Oxygen Delivery Fraction of Inspired Oxygen 60 08/07/24 21:01 08/07/24 21:06 08/07/24 21:16 Temperature Pulse Rate 57 L 55 L 62 Respiratory Rate Blood Pressure 72/58 L 75/58 L 139/91 H Pulse Oximetry Oxygen Delivery Fraction of Inspired Oxygen 08/07/24 21:30 08/07/24 21:45 08/07/24 22:00 Temperature Pulse Rate 61 62 62 Respiratory Rate 14 Blood Pressure 146/98 H 154/93 H 150/107 H Pulse Oximetry Oxygen Delivery Fraction of Inspired Oxygen 08/07/24 22:00 08/07/24 22:04 08/07/24 22:20 Temperature Pulse Rate 62 62 60 Respiratory Rate Blood Pressure 150/17 H 142/87 H Pulse Oximetry Oxygen Delivery Fraction of Inspired Oxygen 08/07/24 22:30 08/07/24 22:47 08/07/24 23:00 Temperature Pulse Rate 60 66 57 L Respiratory Rate 14 Blood Pressure 136/87 153/95 H 111/70 Pulse Oximetry Oxygen Delivery Fraction of Inspired Oxygen 08/07/24 23:37 08/08/24 00:00 08/08/24 00:00 Temperature 98.0 F Pulse Rate 54 L 54 L 55 L Respiratory Rate 14 Blood Pressure 112/75 112/75 Pulse Oximetry 94 95 Oxygen Delivery Mechanical Ventilation Fraction of Inspired Oxygen 60 08/08/24 00:00 08/08/24 00:00 08/08/24 00:19 Temperature Pulse Rate 55 L 57 L Respiratory Rate Blood Pressure 137/86 Pulse Oximetry Oxygen Delivery Fraction of Inspired Oxygen 60 08/08/24 00:20 08/08/24 01:00 08/08/24 01:43 Temperature Pulse Rate 57 L 61 59 L Respiratory Rate 14 Blood Pressure 137/86 132/87 Pulse Oximetry 100 Oxygen Delivery Mechanical Ventilation Fraction of Inspired Oxygen 60 08/08/24 01:59 08/08/24 03:00 08/08/24 03:00 Temperature Pulse Rate 60 60 60 Respiratory Rate Blood Pressure 119/81 119/81 119/81 Pulse Oximetry Oxygen Delivery Fraction of Inspired Oxygen 08/08/24 03:00 08/08/24 04:00 08/08/24 04:00 Temperature Pulse Rate 60 54 L Respiratory Rate Blood Pressure Pulse Oximetry Oxygen Delivery Fraction of Inspired Oxygen 60 08/08/24 04:00 08/08/24 04:00 08/08/24 05:00 Temperature 98.1 F Pulse Rate 57 L 57 L 58 L Respiratory Rate 8 L 13 Blood Pressure 118/74 118/74 134/82 Pulse Oximetry 100 100 Oxygen Delivery Fraction of Inspired Oxygen 08/08/24 05:01 08/08/24 06:00 08/08/24 06:00 Temperature Pulse Rate 59 L 58 L 58 L Respiratory Rate 9 L Blood Pressure 110/74 Pulse Oximetry 100 100 Oxygen Delivery Mechanical Ventilation Fraction of Inspired Oxygen 60 08/08/24 06:00 08/08/24 08:00 08/08/24 08:00 Temperature 98.3 F Pulse Rate 58 L 57 L 58 L Respiratory Rate 14 Blood Pressure 110/74 128/76 128/76 Pulse Oximetry 99 Oxygen Delivery Fraction of Inspired Oxygen 08/08/24 08:00 08/08/24 08:00 08/08/24 08:00 Temperature Pulse Rate 59 L Respiratory Rate Blood Pressure Pulse Oximetry 99 Oxygen Delivery Mechanical Ventilation Fraction of Inspired Oxygen 40 40 08/08/24 08:15 08/08/24 10:00 08/08/24 10:00 Temperature Pulse Rate 62 76 65 Respiratory Rate Blood Pressure 134/85 Pulse Oximetry 99 Oxygen Delivery Mechanical Ventilation Fraction of Inspired Oxygen 40 08/08/24 10:00 08/08/24 10:45 08/08/24 12:00 Temperature Pulse Rate 73 66 61 Respiratory Rate 16 15 Blood Pressure 127/80 113/72 Pulse Oximetry 100 99 100 Oxygen Delivery Mechanical Ventilation Fraction of Inspired Oxygen 40 08/08/24 12:00 08/08/24 13:35 Temperature Pulse Rate 66 66 Respiratory Rate Blood Pressure 113/72 Pulse Oximetry 98 Oxygen Delivery Mechanical Ventilation Fraction of Inspired Oxygen 40 Intake/Output Intake/Output: Intake & Output 08/05/24 08/06/24 08/07/24 08/09/24 23:59 23:59 23:59 00:59 Intake Total 1000 3505.1 3699.2 40.9 Output Total 0 2000 150 Balance 1000 3505.1 1699.2 -109.1 Meds/Results Medications: Active Medications Generic Name Dose Route Start Last Admin Trade Name Freq PRN Reason Stop Dose Admin Dextrose 12.5 gm 08/07/24 16:42 08/08/24 00:30 Dextrose 50% 25 Gm/50 Ml Syringe IV PUSH 12.5 gm PRN PRN Administration Hypoglycemia Protocol Glucagon 1 mg 08/07/24 16:42 Glucagon For Inj 1 Mg Vial IM PRN PRN Hypoglycemia Protocol Glucose 15 gm 08/07/24 16:42 Glucose Oral Gel 15 Gm Of Glucse In 37.5 Gm Tube PO PRN PRN Hypoglycemia Protocol Heparin Sodium (Porcine) 5,000 units 08/07/24 22:00 08/08/24 13:28 Heparin Sodium 5,000 Units/Ml Vial SUB-Q 5,000 units Q8HR ISELA Administration Albumin Human 50 mls @ 999 mls/hr 08/07/24 15:18 Albutein IVPB 09/06/24 15:17 Q10M PRN HYPOTENSION Cefepime HCl 1 gm in 50 mls @ 100 mls/hr 08/07/24 21:00 08/07/24 21:03 Maxipime 1 Gm/Ns 50 Ml IVPB Infused Q24H ISELA Infusion Dextrose 1,000 mls @ 100 mls/hr 08/07/24 16:42 Dextrose 5% 1,000 Ml IVPB PRN PRN Hypoglycemia Protocol Azithromycin 500 mg in 250 mls @ 250 mls/hr 08/07/24 21:00 08/07/24 21:30 Zithromax IVPB Infused Q24H [facility] Infusion Norepinephrine Bitartrate 8 mg in 250 mls @ 0 mls/hr 08/08/24 07:05 08/08/24 12:00 Levophed 8 Mg/D5w 250 Ml IV CONT 0 mcg/min .Q0M ISELA 0 mls/hr Titration Protocol Insulin Aspart 3 - 6 units 08/07/24 18:00 08/08/24 13:16 Insulin Aspart (*Bkc) 100 Units/Ml SUB-Q Not Given Q6HR [facility] Protocol Levothyroxine Sodium 55 mcg 08/08/24 06:30 08/08/24 05:43 Levothyroxine Sodium Inj 100 Mcg/5 Ml Vial IV PUSH 55 mcg DAILY@0630 ISELA Administration Pantoprazole Sodium 40 mg 08/07/24 17:00 08/08/24 08:59 Pantoprazole Sodium Iv 40 Mg Vial IV PUSH 40 mg QAM ISELA Administration Vancomycin HCl 1 each 08/07/24 16:05 Vancomycin For Hemodialysis IVPB PRN PRN Vancomycin Protocol Radiology Results: ITS Impressions Head CT 08/05/24 14:14 IMPRESSION: 1. Normal aging brain. Chest/Abdomen/Pelvis CTA 08/05/24 14:21 IMPRESSION: No pulmonary embolus. No aortic dissection. Bilateral pleural effusions (right greater than left) with adjacent compressive atelectasis on the right and adjacent consolidation on the left. Tracheostomy extends into the right mainstem bronchus, for which resizing is suggested. Hepatosplenomegaly. Significant gaseous distention of the colon with retained gastric contents. Air opacification of the colon which is also distended. Intra-abdominal ascites. Congenital persistent left-sided inferior vena cava. Moderate anasarca Cholelithiasis without cholecystitis. Chest X-Ray 08/08/24 06:38 Impression: Moderate pulmonary edema pattern with small to moderate bilateral pleural effusions. Stable cardiomegaly. Abdomen X-Ray 08/08/24 11:08 Impression: NG tube in satisfactory position. Bilateral pleural effusions. Labs Labs: Laboratory Results - last 24 hr 08/07/24 08/07/24 08/07/24 13:35 15:21 17:08 WBC RBC Hgb Hct MCV MCH MCHC RDW Plt Count MPV Immature Gran % (Auto) Neut % (Auto) Lymph % (Auto) [place] % (Auto) Eos % (Auto) Baso % (Auto) Lymph # (Auto) [place] # (Auto) Eos # (Auto) Baso # (Auto) Abs Immat Gran (auto) Absolute Neuts (auto) Absolute Nucleated RBC Band Neutrophils % Nucleated RBC % Platelet Estimate % Immature Plt Fraction Macrocytosis Schistocytes PT INR APTT Puncture Site ABG pH ABG pCO2 ABG pO2 ABG PO2/FiO2 Ratio ABG HCO3 ABG O2 Saturation ABG O2 Content ABG Base Excess A-a Gradient Oxyhemoglobin Carboxyhemoglobin Methemoglobin Reduced Hemoglobin Total Hemoglobin O2 Delivery Device O2 Liters/Min Minute Volume Vent Rate Vent Mode FiO2 Tidal Volume PEEP Peak Inspir Pressure Pressure Support Sodium Potassium Chloride Carbon Dioxide Anion Gap BUN Creatinine Estim Creat Clear Calc Estimated GFR Glucose POC Capillary Glucose 102 Lactic Acid Calcium Phosphorus Magnesium Total Bilirubin AST ALT Alkaline Phosphatase Total Protein Albumin Nasal MRSA (PCR) Not detected Hep Bs Antigen Negative Hep Bs Antibody Negative 08/07/24 08/08/24 08/08/24 19:26 00:23 00:57 WBC RBC Hgb Hct MCV MCH MCHC RDW Plt Count MPV Immature Gran % (Auto) Neut % (Auto) Lymph % (Auto) [place] % (Auto) Eos % (Auto) Baso % (Auto) Lymph # (Auto) [place] # (Auto) Eos # (Auto) Baso # (Auto) Abs Immat Gran (auto) Absolute Neuts (auto) Absolute Nucleated RBC Band Neutrophils % Nucleated RBC % Platelet Estimate % Immature Plt Fraction Macrocytosis Schistocytes PT INR APTT Puncture Site ABG pH ABG pCO2 ABG pO2 ABG PO2/FiO2 Ratio ABG HCO3 ABG O2 Saturation ABG O2 Content ABG Base Excess A-a Gradient Oxyhemoglobin Carboxyhemoglobin Methemoglobin Reduced Hemoglobin Total Hemoglobin O2 Delivery Device O2 Liters/Min Minute Volume Vent Rate Vent Mode FiO2 Tidal Volume PEEP Peak Inspir Pressure Pressure Support Sodium Potassium Chloride Carbon Dioxide Anion Gap BUN Creatinine Estim Creat Clear Calc Estimated GFR Glucose POC Capillary Glucose 89 63 L 95 Lactic Acid Calcium Phosphorus Magnesium Total Bilirubin AST ALT Alkaline Phosphatase Total Protein Albumin Nasal MRSA (PCR) Hep Bs Antigen Hep Bs Antibody 08/08/24 08/08/24 08/08/24 04:27 05:50 12:35 WBC 4.6 RBC 3.72 L Hgb 12.9 L Hct 41.2 L MCV 110.8 H MCH 34.7 H MCHC 31.3 L RDW 17.4 H Plt Count 113 L MPV 10.8 H Immature Gran % (Auto) 0.2 Neut % (Auto) 76.3 H Lymph % (Auto) 11.2 L [place] % (Auto) 11.0 H Eos % (Auto) 0.9 Baso % (Auto) 0.4 Lymph # (Auto) 0.52 L [place] # (Auto) 0.5 Eos # (Auto) 0.0 Baso # (Auto) 0.0 Abs Immat Gran (auto) 0.01 Absolute Neuts (auto) 3.5 Absolute Nucleated RBC 0.000 Band Neutrophils % Not Reportable Nucleated RBC % 0.0 Platelet Estimate Adequate % Immature Plt Fraction 3.5 Macrocytosis 2+ Schistocytes None seen PT 15.7 H INR 1.2 APTT 37.6 H Puncture Site Left radial ABG pH 7.431 ABG pCO2 38.1 ABG pO2 106.4 H ABG PO2/FiO2 Ratio 1.77 ABG HCO3 24.8 ABG O2 Saturation 98.0 ABG O2 Content 18.6 ABG Base Excess 0.7 A-a Gradient 279.5 Oxyhemoglobin 96.5 Carboxyhemoglobin 1.3 Methemoglobin 0.3 Reduced Hemoglobin 1.9 Total Hemoglobin 13.6 O2 Delivery Device Ventilator O2 Liters/Min Not Reportable Minute Volume Not Reportable Vent Rate Not Reportable Vent Mode Asv FiO2 60 Tidal Volume Not Reportable PEEP 6 Peak Inspir Pressure Not Reportable Pressure Support Not Reportable Sodium 136 L Potassium 4.4 Chloride 97 L Carbon Dioxide 26 Anion Gap 13 H BUN 37 H Creatinine 4.54 H Estim Creat Clear Calc 20 Estimated GFR 13 L Glucose 84 POC Capillary Glucose 75 Lactic Acid 1.3 Calcium 8.7 Phosphorus 5.5 H Magnesium 2.0 Total Bilirubin 1.5 H AST 38 ALT 49 Alkaline Phosphatase 118 Total Protein 6.0 L Albumin 3.6 Nasal MRSA (PCR) Hep Bs Antigen Hep Bs Antibody Quality VTE Prophylaxis VTE prophylaxis: pharmacologic ordered
[2024-08-08 18:54] LABS: Glucose Point of Care 58 mg/dl (65-105)
[2024-08-08 19:23] LABS: Glucose Point of Care 110 mg/dl (65-105)
[2024-08-08] MEDS: CEFEPIME 1 GM/NS 50 ML 1 GM/50 ML BAG IVPB (20:21)
[2024-08-08] MEDS: AZITHROMYCIN 500 MG/NS 250 ML 500 MG/250 ML BAG 250 MG IVPB (20:21)
[2024-08-08 21:28] LABS: Vancomycin Random 15.4 ug/mL (10-20)
[2024-08-08] MEDS: VANCOMYCIN 750 MG/NS 250 ML 750 MG/250 ML BAG 250 MG IVPB (23:26)
[2024-08-08 23:27] LABS: Glucose Point of Care 54 mg/dl (65-105)
[2024-08-09] VITALS (39 sets, daily range): BP systolic 87–153; BP diastolic 60–90; PULSE 48–67; RESP 10–22; TEMP 0–36.8; O2SAT 94–100; BMI 37.5
[2024-08-09 00:02] LABS: Glucose Point of Care 105 mg/dl (65-105)
[2024-08-09 01:08] LABS: Glucose Point of Care 92 mg/dl (65-105)
[2024-08-09] MEDS: HEPARIN SODIUM 5,000 UNITS/ML VIAL 5000 UNITS SUB-Q (05:16)
[2024-08-09] MEDS: LEVOTHYROXINE SODIUM INJ 100 MCG/5 ML VIAL 55 MCG IV PUSH (05:16)
[2024-08-09 05:33] LABS: Basophils Percent Auto 0.8 % (0.2-1.2); Eosinophils Absolute Auto 0.1 K/mm3 (0-0.3); Eosinophils Percent Auto 2.8 % (0-4.4); Hematocrit 36.8 % (42.0-52.0); Hemoglobin 11.8 g/dL (14.0-18.0); Immature Granulocyte Absolute 0.01 K/mm3 (0.00-0.031); Immature Granulocyte Percent A 0.3 % (0-0.5); Immature Platelet Fraction Pct 4.2 % (0.9-11.2); Lymphocytes Percent Auto 13.9 % (18.3-44.2); Mean Corpuscular HGB Conc 32.1 g/dl (32-36); Mean Corpuscular Hemoglobin 35.4 pg (26-34); Mean Corpuscular Volume 110.5 fl (80-100); Mean Platelet Volume 11.3 fl (7.4-10.4); Monocytes Absolute Auto 0.4 K/mm3 (0.1-0.6); Monocytes Percent Auto 11.7 % (2.6-8.5); Neutrophils Absolute Auto 2.5 K/mm3 (1.3-6.7); Neutrophils Percent Auto 70.5 % (45.5-73.1); Platelet Count Result 88 k/mm3 (150-375); Red Blood Count 3.33 M/mm3 (4.6-6.20); Red Cell Distribution Width 17.3 % (11.5-14.5); White Blood Count 3.6 K/mm3 (4.5-10.0)
[2024-08-09 05:47] LABS: Alanine Aminotransferase 39 U/L (6-50); Albumin Level 3.1 g/dL (3.5-5.1); Alkaline Phosphatase 95 U/L (38-126); Anion Gap 11 mmol/L (4-12); Aspartate Amino Transferase 31 U/L (17-59); Bilirubin,Total 1.2 mg/dL (0.2-1.3); Blood Urea Nitrogen 50 mg/dL (9-20); Calcium 8.1 mg/dL (8.4-10.2); Carbon Dioxide 25 mmol/L (22-30); Chloride 98 mmol/L (98-107); Estimated CRCL calculation 17 ml/min; Estimated Glomerular Filt Rate 11; Glucose 64 mg/dL (65-110); Potassium 4.2 mmol/L (3.4-5.0); Sodium 134 mmol/L (137-145)
[2024-08-09] MEDS: DEXTROSE 50% 25 GM/50 ML SYRINGE IV PUSH ×3 (05:55→18:19)
[2024-08-09 06:25] LABS: Macrocytosis 1+ (NORMAL); Platelet Estimate Decreased (Adequate); Schistocytes None Seen
[2024-08-09 06:28] LABS: Glucose Point of Care 113 mg/dl (65-105)
--- NOTE | 2024-08-09 09:43 | P.PNINT_ITS ---
Progress Note: A&P Assessment and Plan (1) Pre-syncope: Code(s): R55 - Syncope and collapse Status: Acute Assessment and Plan: Patient presented with dizziness, presyncope as they were doing dialysis on him on 08/05/2024 -patient was hypotensive which could be due to dialysis causing presyncope/dizziness, volume depletion -patient's blood pressures are labile, initially elevated, then blood pressures dropped after hemodialysis requiring Levophed -08/05/2024: CT brain was normal 08/09 carotid Dopplers Elevated velocity in the left internal carotid artery is compatible with moderate (50-69%) stenosis. Nonvisualization of left vertebral artery. Continue telemetry monitoring Will defer further workup to accepting tertiary facility (2) Hypertension: Code(s): I10 - Essential (primary) hypertension Status: Acute Assessment and Plan: Essential hypertension, will hold all antihypertensives as patient was on Levophed in the ER due to hypotension (3) Hypotension: Code(s): I95.9 - Hypotension, unspecified Status: Acute Assessment and Plan: Likely related to dialysis and fluid removal Now improved and patient off of vasopressors (4) Right-sided heart failure: Code(s): I50.810 - Right heart failure, unspecified Status: Acute Assessment and Plan: Patient got dialyzed on 08/24 with 2000 mL in fluid removed Plan for dialysis again patient is overall volume overloaded (5) Elevated troponin: Code(s): R79.89 - Other specified abnormal findings of blood chemistry Status: Acute Assessment and Plan: Elevated troponin in the ER , plateaued x3 -likely related to end-stage renal disease, hypotension, respiratory distress (6) Hyperlipidemia: Code(s): E78.5 - Hyperlipidemia, unspecified Status: Acute Assessment and Plan: On pravastatin at home, currently will hold (7) Type 2 diabetes mellitus: Code(s): E11.9 - Type 2 diabetes mellitus without complications Status: Chronic Assessment and Plan: Sliding scale insulin Accu-Cheks (8) Hypothyroidism: Code(s): E03.9 - Hypothyroidism, unspecified Status: Acute Assessment and Plan: IV Levothyroxine (9) 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 Since we did not have ENT and at [facility] this weekend, ER physician called [facility] with the patient was accepted for ENT to insert a cuffed tracheostomy tube due to his laryngeal anatomy secondary to partial laryngectomy due to laryngeal cancer Patient waiting for transfer (10) History of partial laryngectomy: Code(s): Z90.02 - Acquired absence of larynx Status: Acute Assessment and Plan: Secondary to laryngeal CA, tracheostomy dependent (11) End-stage renal disease on hemodialysis: Code(s): N18.6 - End stage renal disease; Z99.2 - Dependence on renal dialysis Status: Acute Assessment and Plan: ESRD on hemodialysis, Friday, , Friday -nephrology following -08/07: HD with 2000 mL in fluid removed Patient scheduled for dialysis again today (12) Chronic respiratory failure with hypoxia, on home oxygen therapy: Code(s): J96.11 - Chronic respiratory failure with hypoxia; Z99.81 - Dependence on supplemental oxygen Status: Acute Assessment and Plan: Secondary to laryngeal CA, partial laryngectomy, volume overload, trach dependent obesity hypoventilation syndrome, obstructive sleep apnea given patient's body habitus (13) Abdominal distension: Code(s): R14.0 - Abdominal distension (gaseous) Status: Acute Assessment and Plan: Abdominal distension, likely fluid and air as seen on CT abdomen and pelvis -obstructive series did not show any abdominal pathology -will place NG tube and hook it up to suction before starting any feeding Plan DVT prophylaxis: SubQ heparin Stress ulcer prophylaxis: Protonix IV Nutrition: Will place NG tube and start tube feeding Code Status: Full code Critical Care Time Spent: 30 minutes Due to a high probability of clinically significant, life threatening deterioration, the patient required my highest level of preparedness to intervene emergently and I personally spent this critical care time directly and personally managing the patient. This critical care time included obtaining a history; examining the patient; pulse oximetry; ordering and review of studies; arranging urgent treatment with development of a management plan; evaluation of patient's response to treatment; frequent reassessment; and discussions with other providers. It was exclusive of separately billable procedures and treating other patients and teaching time. Please see Assessment and Plan section and the rest of the note for further information on patient assessment and treatment This dictation may have been done utilizing a voice recognition system. Attempts have been made to correct errors. However, there may be uncorrected grammatical, spelling, and recognitions errors present. Subjective Date/time seen: 08/09/24 09:43 Interval history: Reason for consult: Near syncope, lightheadedness, shortness of breath, respiratory failure abdominal distention, end-stage renal disease on dialysis, shortness of breath, hypotension 08/06: In the ER: Cuffed ET tube was placed through the tracheostomy stoma as the patient was hypoxic, hypercarbic and they could not replace a cuffed tracheostomy tube. Since we did not have ENT and at [facility] this weekend, ER physician called [facility] with the patient was accepted for ENT to insert a cuffed tracheostomy tube due to his laryngeal a natomy secondary to partial laryngectomy due to laryngeal cancer Review of Systems Review of Systems: All systems reviewed & are unremarkable except as noted in HPI and below Exam Narrative: General: Pleasant gentleman, obese, in no acute distress HEENT:? ETT in the tracheostomy tract Neck:? Thick neck Respiratory:? Coarse breath sounds bilaterally, decreased at bases, no wheezing, adequate air entry Cardiac:? Sinus bradycardia, S1-S2 is normal Abdomen:? Soft, distended, nontender, hypoactive bowel sound Extremities:? Bilateral lower extremity chronic venous stasis change, pitting edema bilateral lower extremity, absent big toe on the right foot Neuro:? Patient is awake, alert, oriented, able to mouth words, follows simple commands in all extremities Skin:? Bilat lower extremity venous stasis changes Psych:? Normal mentation and affect Objective Data Vital Signs Vital Signs: Vital Signs - 24 hr 08/08/24 10:08/08/24 10:08/08/24 10:00 Temperature Pulse Rate 76 65 73 Respiratory Rate 16 Blood Pressure 134/85 127/80 Pulse Oximetry 100 Oxygen Delivery Fraction of Inspired Oxygen 08/08/24 10:45 08/08/24 12:08/08/24 12:00 Temperature Pulse Rate 66 61 66 Respiratory Rate 15 Blood Pressure 113/72 113/72 Pulse Oximetry 99 100 Oxygen Delivery Mechanical Ventilation Fraction of Inspired Oxygen 40 08/08/24 12:00 08/08/24 12:00 08/08/24 12:00 Temperature Pulse Rate 61 Respiratory Rate Blood Pressure Pulse Oximetry 98 Oxygen Delivery Mechanical Ventilation Fraction of Inspired Oxygen 40 40 08/08/24 13:35 08/08/24 14:00 08/08/24 14:00 Temperature Pulse Rate 66 60 66 Respiratory Rate 14 Blood Pressure 135/85 Pulse Oximetry 98 98 Oxygen Delivery Mechanical Ventilation Fraction of Inspired Oxygen 40 08/08/24 14:00 08/08/24 16:00 08/08/24 16:00 Temperature 36.4 C Pulse Rate 66 66 66 Respiratory Rate 14 Blood Pressure 135/85 134/84 134/84 Pulse Oximetry 99 Oxygen Delivery Fraction of Inspired Oxygen 08/08/24 16:00 08/08/24 16:00 08/08/24 16:00 Temperature Pulse Rate 62 Respiratory Rate Blood Pressure Pulse Oximetry 99 Oxygen Delivery Mechanical Ventilation Fraction of Inspired Oxygen 40 40 08/08/24 16:32 08/08/24 18:00 08/08/24 18:00 Temperature Pulse Rate 54 L 54 L Respiratory Rate Blood Pressure 114/70 Pulse Oximetry 99 Oxygen Delivery Mechanical Ventilation Fraction of Inspired Oxygen 40 08/08/24 18:00 08/08/24 19:01 08/08/24 20:00 Temperature Pulse Rate 64 64 Respiratory Rate 13 Blood Pressure 103/65 146/88 H Pulse Oximetry 98 Oxygen Delivery Fraction of Inspired Oxygen 30 08/08/24 20:00 08/08/24 20:00 08/08/24 20:01 Temperature Pulse Rate 58 L 53 L 53 L Respiratory Rate 15 14 Blood Pressure 85/62 L Pulse Oximetry 100 Oxygen Delivery Mechanical Ventilation Fraction of Inspired Oxygen 30 08/08/24 20:18 08/08/24 20:30 08/08/24 20:31 Temperature Pulse Rate 58 L 60 65 Respiratory Rate 14 16 Blood Pressure 115/75 Pulse Oximetry 100 Oxygen Delivery Mechanical Ventilation Fraction of Inspired Oxygen 40 08/08/24 20:48 08/08/24 21:00 08/08/24 21:01 Temperature Pulse Rate 59 L 59 L Respiratory Rate 14 14 Blood Pressure 98/70 L Pulse Oximetry 95 Oxygen Delivery Mechanical Ventilation Fraction of Inspired Oxygen 30 08/08/24 21:30 08/08/24 22:00 08/08/24 22:00 Temperature Pulse Rate 59 L 59 L 59 L Respiratory Rate 14 14 Blood Pressure 97/69 L 103/72 Pulse Oximetry Oxygen Delivery Fraction of Inspired Oxygen 08/08/24 22:30 08/08/24 22:34 08/08/24 23:00 Temperature Pulse Rate 58 L 58 L 58 L Respiratory Rate 14 14 Blood Pressure 109/72 115/75 Pulse Oximetry 96 Oxygen Delivery Mechanical Ventilation Fraction of Inspired Oxygen 40 08/08/24 23:30 08/09/24 00:00 08/09/24 00:00 Temperature Pulse Rate 59 L 58 L Respiratory Rate 14 14 Blood Pressure 100/69 Pulse Oximetry 96 Oxygen Delivery Mechanical Ventilation Fraction of Inspired Oxygen 30 30 08/09/24 00:00 08/09/24 00:00 08/09/24 00:30 Temperature 36.8 C Pulse Rate 61 61 61 Respiratory Rate 14 14 Blood Pressure 127/76 117/76 Pulse Oximetry Oxygen Delivery Fraction of Inspired Oxygen 08/09/24 01:48 08/09/24 02:00 08/09/24 02:00 Temperature Pulse Rate 66 60 60 Respiratory Rate 15 Blood Pressure 117/68 Pulse Oximetry 100 100 Oxygen Delivery Mechanical Ventilation Fraction of Inspired Oxygen 40 08/09/24 03:36 08/09/24 03:39 08/09/24 04:00 Temperature Pulse Rate 60 51 L Respiratory Rate 15 Blood Pressure Pulse Oximetry 100 Oxygen Delivery Mechanical Ventilation Fraction of Inspired Oxygen 30 30 08/09/24 04:00 08/09/24 04:30 08/09/24 05:00 Temperature Pulse Rate 52 L 52 L 49 L Respiratory Rate 13 13 Blood Pressure 87/60 L 107/65 Pulse Oximetry 98 Oxygen Delivery Mechanical Ventilation Fraction of Inspired Oxygen 40 08/09/24 06:00 08/09/24 06:00 08/09/24 08:00 Temperature 36.2 C L Pulse Rate 63 62 65 Respiratory Rate 15 18 Blood Pressure 137/87 143/89 H Pulse Oximetry 98 99 Oxygen Delivery Fraction of Inspired Oxygen 08/09/24 08:07 08/09/24 09:06 Temperature Pulse Rate 60 55 L Respiratory Rate Blood Pressure 133/80 Pulse Oximetry 99 Oxygen Delivery Mechanical Ventilation Fraction of Inspired Oxygen 30 Intake/Output Intake/Output: Intake & Output 08/06/24 08/07/24 08/09/24 08/09/24 23:59 23:59 00:59 23:59 Intake Total 3505.1 3699.2 365.9 250 Output Total 1999 250 125 Balance 3505.1 1699.2 115.9 125 Meds/Results Medications: Active Medications Generic Name Dose Route Start Last Admin Trade Name Freq PRN Reason Stop Dose Admin Dextrose 12.5 gm 08/07/24 16:42 08/09/24 05:55 Dextrose 50% 25 Gm/50 Ml Syringe IV PUSH 12.5 gm PRN PRN Administration Hypoglycemia Protocol Glucagon 1 mg 08/07/24 16:42 Glucagon For Inj 1 Mg Vial IM PRN PRN Hypoglycemia Protocol Glucose 15 gm 08/07/24 16:42 Glucose Oral Gel 15 Gm Of Glucse In 37.5 Gm Tube PO PRN PRN Hypoglycemia Protocol Heparin Sodium (Porcine) 5,000 units 08/07/24 22:00 08/09/24 05:16 Heparin Sodium 5,000 Units/Ml Vial SUB-Q 5,000 units Q8HR ISELA Administration Albumin Human 50 mls @ 999 mls/hr 08/07/24 15:18 Albutein IVPB 09/06/24 15:17 Q10M PRN HYPOTENSION Cefepime HCl 1 gm in 50 mls @ 100 mls/hr 08/07/24 21:00 08/08/24 20:51 Maxipime 1 Gm/Ns 50 Ml IVPB Infused Q24H ISELA Infusion Dextrose 1,000 mls @ 100 mls/hr 08/07/24 16:42 Dextrose 5% 1,000 Ml IVPB PRN PRN Hypoglycemia Protocol Azithromycin 500 mg in 250 mls @ 250 mls/hr 08/07/24 21:00 08/08/24 21:21 Zithromax IVPB Infused Q24H ISELA Infusion Insulin Aspart 3 - 6 units 08/07/24 18:00 08/09/24 06:04 Insulin Aspart (*Bkc) 100 Units/Ml SUB-Q Not Given Q6HR ISELA Protocol Levothyroxine Sodium 55 mcg 08/08/24 06:30 08/09/24 05:16 Levothyroxine Sodium Inj 100 Mcg/5 Ml Vial IV PUSH 55 mcg DAILY@0630 ISELA Administration Pantoprazole Sodium 40 mg 08/07/24 17:00 08/08/24 08:59 Pantoprazole Sodium Iv 40 Mg Vial IV PUSH 40 mg QAM ISELA Administration Vancomycin HCl 1 each 08/07/24 16:05 Vancomycin For Hemodialysis IVPB PRN PRN Vancomycin Protocol Radiology Results: ITS Impressions Head CT 08/05/24 14:14 IMPRESSION: 1. Normal aging brain. Chest/Abdomen/Pelvis CTA 08/05/24 14:21 IMPRESSION: No pulmonary embolus. No aortic dissection. Bilateral pleural effusions (right greater than left) with adjacent compressive atelectasis on the right and adjacent consolidation on the left. Tracheostomy extends into the right mainstem bronchus, for which resizing is suggested. Hepatosplenomegaly. Significant gaseous distention of the colon with retained gastric contents. Air opacification of the colon which is also distended. Intra-abdominal ascites. Congenital persistent left-sided inferior vena cava. Moderate anasarca Cholelithiasis without cholecystitis. Chest X-Ray 08/08/24 06:38 Impression: Moderate pulmonary edema pattern with small to moderate bilateral pleural effusions. Stable cardiomegaly. Abdomen X-Ray 08/08/24 11:08 Impression: NG tube in satisfactory position. Bilateral pleural effusions. Carotid Doppler Study 08/09/24 06:24 Impression: Elevated velocity in the left internal carotid artery is compatible with moderate (50-69%) stenosis. Nonvisualization of left vertebral artery. Note: The methodology used is an indirect measurement validated against a direct method (such as the NASCET criteria) that compares diameters at the stenosis to the distal ICA. Labs Labs: Laboratory Results - last 24 hr 08/08/24 08/08/24 08/08/24 12:35 18:46 19:19 WBC RBC Hgb Hct MCV MCH MCHC RDW Plt Count MPV Immature Gran % (Auto) Neut % (Auto) Lymph % (Auto) [place] % (Auto) Eos % (Auto) Baso % (Auto) Lymph # (Auto) [place] # (Auto) Eos # (Auto) Baso # (Auto) Abs Immat Gran (auto) Absolute Neuts (auto) Absolute Nucleated RBC Band Neutrophils % Nucleated RBC % Platelet Estimate % Immature Plt Fraction Macrocytosis Schistocytes Sodium Potassium Chloride Carbon Dioxide Anion Gap BUN Creatinine Estim Creat Clear Calc Estimated GFR Glucose POC Capillary Glucose 75 58 L* 110 H Calcium Magnesium Total Bilirubin AST ALT Alkaline Phosphatase Total Protein Albumin Random Vancomycin 08/08/24 08/08/24 08/08/24 21:00 23:24 23:59 WBC RBC Hgb Hct MCV MCH MCHC RDW Plt Count MPV Immature Gran % (Auto) Neut % (Auto) Lymph % (Auto) [place] % (Auto) Eos % (Auto) Baso % (Auto) Lymph # (Auto) [place] # (Auto) Eos # (Auto) Baso # (Auto) Abs Immat Gran (auto) Absolute Neuts (auto) Absolute Nucleated RBC Band Neutrophils % Nucleated RBC % Platelet Estimate % Immature Plt Fraction Macrocytosis Schistocytes Sodium Potassium Chloride Carbon Dioxide Anion Gap BUN Creatinine Estim Creat Clear Calc Estimated GFR Glucose POC Capillary Glucose 54 L* 105 Calcium Magnesium Total Bilirubin AST ALT Alkaline Phosphatase Total Protein Albumin Random Vancomycin 15.4 08/09/24 08/09/24 08/09/24 01:03 05:22 06:26 WBC 3.6 L RBC 3.33 L Hgb 11.8 L Hct 36.8 L MCV 110.5 H MCH 35.4 H MCHC 32.1 RDW 17.3 H Plt Count 88 L MPV 11.3 H Immature Gran % (Auto) 0.3 Neut % (Auto) 70.5 Lymph % (Auto) 13.9 L [place] % (Auto) 11.7 H Eos % (Auto) 2.8 Baso % (Auto) 0.8 Lymph # (Auto) 0.50 L [place] # (Auto) 0.4 Eos # (Auto) 0.1 Baso # (Auto) 0.0 Abs Immat Gran (auto) 0.01 Absolute Neuts (auto) 2.5 Absolute Nucleated RBC 0.000 Band Neutrophils % Not Reportable Nucleated RBC % 0.0 Platelet Estimate Decreased % Immature Plt Fraction 4.2 Macrocytosis 1+ Schistocytes None seen Sodium 134 L Potassium 4.2 Chloride 98 Carbon Dioxide 25 Anion Gap 11 BUN 50 H D Creatinine 5.41 H Estim Creat Clear Calc 17 Estimated GFR 11 L Glucose 64 L POC Capillary Glucose 92 113 H Calcium 8.1 L Magnesium 2.0 Total Bilirubin 1.2 AST 31 ALT 39 Alkaline Phosphatase 95 Total Protein 6.0 L Albumin 3.1 L Random Vancomycin Quality VTE Prophylaxis VTE prophylaxis: pharmacologic ordered
--- NOTE | 2024-08-09 10:26 | P.PNNP_ITS ---
Progress Note: A&P Assessment and Plan (1) End stage renal disease: Code(s): N18.6 - End stage renal disease Status: Chronic Assessment and Plan: * HD tomorrow * continue Friday//Friday dialysis schedule while hospitalized * received on partial treatment on (08/06) prior to ER prese * follow electrolytes, volume status, and clearance * primary engraver picture = Dr. Isaiah Davis * outpatient dialysis unit = [facility] (2) Chronic respiratory failure with hypoxia, on home oxygen therapy: Code(s): J96.11 - Chronic respiratory failure with hypoxia; Z99.81 - Dependence on supplemental oxygen Status: Acute Assessment and Plan: * due to laryngeal cancer s/p, partial laryngectomy, obesity hypoventilation syndrome, and obstructive sleep apnea * currently tracheostomy dependent * tracheostomy tube replaced with ETT in ER * on mechanical ventilation at this time * awaiting transfer to [facility] for ENT evaluation of tracheostomy (3) Pre-syncope: Code(s): R55 - Syncope and collapse Status: Acute Assessment and Plan: * presented with this and dizziness during outpatient dialysis treatment on 08/05/24 * suspect secondary to hypotension as noted by vital signs in ER * clinically better with better blood pressure readings * CT of brain (08/05) negatibe * carotid dopplers (08/09): * elevated velocity in the left internal carotid artery is compatible with moderate (50-69%) stenosis. * nonvisualization of left vertebral artery. * monitor telemetry (4) Hypotension: Code(s): I95.9 - Hypotension, unspecified Status: Acute Assessment and Plan: * resolved if not better at this time * presumably due to dialysis treatment and accompanying ultrafiltration/fluid removal * however, does have significant swelling/edema on exam... * was requiring low dose levophed (initiated in ER) * weaned off vasopressor therapy * known history of hypertension * all BP medications on hold currently * follow trend of hemodynamics (5) Volume overload: Code(s): E87.70 - Fluid overload, unspecified Status: Acute Assessment and Plan: * as evidenced by exam * fluid removal with HD/DUF as tolerated by hemodynamics * DUF today for further fluid removal (6) Type 2 diabetes mellitus: Code(s): E11.9 - Type 2 diabetes mellitus without complications Status: Chronic Assessment and Plan: * follow accu-cheks * glycemic control per hospitalist/component inspector Will continue to follow. L Subjective Date/time seen: 08/09/24 10:26 Interval history: Follow-up for end stage renal disease on hemodialysis. Tolerating dry ultrafiltration session at the time of my visit (seen on DUF at 10:15AM); no apparent distress noted when seen -- appears in good spirits; remains on mechanical ventilation via ETT through tracheostomy stoma; hemodynamically stable as well; no other issues/events overnight or earlier this morning. Exam 2 Narrative: General: WD/WN male in NAD Heart: normal S1 and S2; no rub Lungs: coarse with decreased breath sounds at bases Abdomen: soft, nontender but mild distension, positive bowel sounds Extremities: no cyanosis or clubbing; 1 - 2+ edema in UEs and LEs Skin: warm and intact Objective Data Vital Signs Vital Signs: Vital Signs Temp Pulse Resp BP Pulse Ox O2 Del Method FiO2 08/09/24 10:15 65 125/77 08/09/24 10:00 59 L 08/09/24 10:00 59 L 136/84 08/09/24 10:00 96.8 F L 59 L 10 L 136/84 94 08/09/24 09:45 59 L 140/84 08/09/24 09:30 56 L 137/83 08/09/24 09:15 57 L 137/84 08/09/24 09:06 55 L 133/80 08/09/24 08:45 96.8 F L 57 L 18 141/84 H 96 08/09/24 08:45 30 08/09/24 08:07 60 99 Mechanical Ventilation 30 08/09/24 08:00 30 08/09/24 08:00 59 L 08/09/24 08:00 59 L 20 98 Mechanical Ventilation 30 08/09/24 08:00 97.2 F L 65 18 143/89 H 99 08/09/24 06:00 62 15 137/87 98 08/09/24 06:00 63 08/09/24 05:00 49 L 98 Mechanical Ventilation 40 08/09/24 04:30 52 L 13 107/65 08/09/24 04:00 52 L 13 87/60 L 08/09/24 04:00 51 L 08/09/24 03:39 60 15 100 Mechanical Ventilation 30 08/09/24 03:36 30 08/09/24 02:00 60 15 117/68 100 08/09/24 02:00 60 08/09/24 01:48 66 100 Mechanical Ventilation 40 08/09/24 00:30 61 14 117/76 08/09/24 00:00 98.2 F 61 14 127/76 08/09/24 00:00 61 08/09/24 00:00 58 L 14 96 Mechanical Ventilation 30 08/09/24 00:00 30 08/08/24 23:30 59 L 14 100/69 08/08/24 23:00 58 L 14 115/75 08/08/24 22:34 58 L 96 Mechanical Ventilation 40 08/08/24 22:30 58 L 14 109/72 08/08/24 22:00 59 L 14 103/72 08/08/24 22:00 59 L 08/08/24 21:30 59 L 14 97/69 L 08/08/24 21:01 59 L 14 08/08/24 21:00 59 L 14 98/70 L 08/08/24 20:48 95 Mechanical Ventilation 30 08/08/24 20:31 65 16 08/08/24 20:30 60 14 115/75 08/08/24 20:18 58 L 100 Mechanical Ventilation 40 08/08/24 20:01 53 L 14 85/62 L 08/08/24 20:00 53 L 08/08/24 20:00 58 L 15 100 Mechanical Ventilation 30 08/08/24 20:00 30 Intake/Output Intake/Output: Intake & Output 08/06/24 08/07/24 08/09/24 08/09/24 23:59 23:59 00:59 23:59 Intake Total 3505.1 3699.2 365.9 250 Output Total 1999 250 3125 Balance 3505.1 1699.2 115.9 -2875 Meds/Results Medications: Active Medications Generic Name Dose Route Start Last Admin Trade Name Freq PRN Reason Stop Dose Admin Dextrose 12.5 gm 08/07/24 16:42 08/09/24 18:19 Dextrose 50% 25 Gm/50 Ml Syringe IV PUSH 12.5 gm PRN PRN Administration Hypoglycemia Protocol Glucagon 1 mg 08/07/24 16:42 Glucagon For Inj 1 Mg Vial IM PRN PRN Hypoglycemia Protocol Glucose 15 gm 08/07/24 16:42 Glucose Oral Gel 15 Gm Of Glucse In 37.5 Gm Tube PO PRN PRN Hypoglycemia Protocol Heparin Sodium (Porcine) 5,000 units 08/07/24 22:00 08/09/24 11:54 Heparin Sodium 5,000 Units/Ml Vial SUB-Q Not Given Q8HR ISELA Albumin Human 50 mls @ 999 mls/hr 08/07/24 15:18 Albutein IVPB 09/06/24 15:17 Q10M PRN HYPOTENSION Cefepime HCl 1 gm in 50 mls @ 100 mls/hr 08/07/24 21:00 08/08/24 20:51 Maxipime 1 Gm/Ns 50 Ml IVPB Infused Q24H ISELA Infusion Dextrose 1,000 mls @ 100 mls/hr 08/07/24 16:42 Dextrose 5% 1,000 Ml IVPB PRN PRN Hypoglycemia Protocol Azithromycin 500 mg in 250 mls @ 250 mls/hr 08/07/24 21:00 08/08/24 21:21 Zithromax IVPB Infused Q24H ISELA Infusion Insulin Aspart 3 - 6 units 08/07/24 18:00 08/09/24 18:31 Insulin Aspart (*Bkc) 100 Units/Ml SUB-Q Not Given Q6HR ISELA Protocol Levothyroxine Sodium 55 mcg 08/08/24 06:30 08/09/24 05:16 Levothyroxine Sodium Inj 100 Mcg/5 Ml Vial IV PUSH 55 mcg DAILY@0630 ISELA Administration Pantoprazole Sodium 40 mg 08/07/24 17:00 08/09/24 12:48 Pantoprazole Sodium Iv 40 Mg Vial IV PUSH 40 mg QAM ISELA Administration Sodium Chloride 10 ml 08/09/24 14:00 08/09/24 14:54 Central Line Flush IV PUSH 10 ml Q8HR ISELA Administration Sodium Chloride 20 ml 08/09/24 13:29 Central Line Flush IV PUSH PRN PRN after blood draws Vancomycin HCl 1 each 08/07/24 16:05 Vancomycin For Hemodialysis IVPB PRN PRN Vancomycin Protocol Radiology Results: ITS Impressions Head CT 08/05/24 14:14 IMPRESSION: 1. Normal aging brain. Chest/Abdomen/Pelvis CTA 08/05/24 14:21 IMPRESSION: No pulmonary embolus. No aortic dissection. Bilateral pleural effusions (right greater than left) with adjacent compressive atelectasis on the right and adjacent consolidation on the left. Tracheostomy extends into the right mainstem bronchus, for which resizing is suggested. Hepatosplenomegaly. Significant gaseous distention of the colon with retained gastric contents. Air opacification of the colon which is also distended. Intra-abdominal ascites. Congenital persistent left-sided inferior vena cava. Moderate anasarca Cholelithiasis without cholecystitis. Carotid Doppler Study 08/09/24 06:24 Impression: Elevated velocity in the left internal carotid artery is compatible with moderate (50-69%) stenosis. Nonvisualization of left vertebral artery. Note: The methodology used is an indirect measurement validated against a direct method (such as the NASCET criteria) that compares diameters at the stenosis to the distal ICA. Chest X-Ray 08/09/24 14:21 IMPRESSION: Bilateral basal pneumonia. Cardiomegaly with cardiac decompensation and pulmonary edema. Superimposed Pneumonitis is not excluded. Abdomen X-Ray 08/09/24 14:23 IMPRESSION: 1. Nasogastric tube tip in the stomach. Labs Labs: Laboratory Tests 08/09/24 05:22 08/09/24 05:22 Calcium 8.1 L Magnesium 2.0 Total Bilirubin 1.2 AST 31 ALT 39 Alkaline Phosphatase 95 Total Protein 6.0 L Albumin 3.1 L Microbiology 08/07/24 17:08 Sputum Sputum Culture - Final Haemophilus influenzae 08/07/24 16:21 Blood Blood Culture - Preliminary 08/07/24 16:00 Blood Blood Culture - Preliminary
--- NOTE | 2024-08-09 11:23 | PM.IMPN ---
Progress Note: A&P Assessment and Plan (1) Pre-syncope: Code(s): R55 - Syncope and collapse Status: Acute Assessment and Plan: Patient presented with dizziness, presyncope as they were doing dialysis on him on 08/05/2024 -patient was hypotensive which could be due to dialysis causing presyncope/dizziness, volume depletion -patient's blood pressures are labile, initially elevated, then blood pressures dropped after hemodialysis requiring Levophed -08/05/2024: CT brain was normal 08/09 carotid Dopplers Elevated velocity in the left internal carotid artery is compatible with moderate (50-69%) stenosis. Nonvisualization of left vertebral artery. continue monitoring (2) Hypertension: Code(s): I10 - Essential (primary) hypertension Status: Acute Assessment and Plan: Essential hypertension, will hold all antihypertensives as patient was on Levophed in the ER due to hypotension (3) Hypotension: Code(s): I95.9 - Hypotension, unspecified Status: Acute Assessment and Plan: Likely related to dialysis and fluid removal Now improved and patient off of vasopressors (4) Right-sided heart failure: Code(s): I50.810 - Right heart failure, unspecified Status: Acute Assessment and Plan: Patient got dialyzed on 08/24 with 2000 mL in fluid removed Dialysis per Nephrology (5) Elevated troponin: Code(s): R79.89 - Other specified abnormal findings of blood chemistry Status: Acute Assessment and Plan: Elevated troponin in the ER , plateaued x3 -likely related to end-stage renal disease, hypotension, respiratory distress (6) Hyperlipidemia: Code(s): E78.5 - Hyperlipidemia, unspecified Status: Acute Assessment and Plan: On pravastatin at home, currently will hold (7) Type 2 diabetes mellitus: Code(s): E11.9 - Type 2 diabetes mellitus without complications Status: Chronic Assessment and Plan: Sliding scale insulin Accu-Cheks (8) Hypothyroidism: Code(s): E03.9 - Hypothyroidism, unspecified Status: Acute Assessment and Plan: IV Levothyroxine (9) 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 Since we did not have ENT and at [facility] this weekend, ER physician called [facility] with the patient was accepted for ENT to insert a cuffed tracheostomy tube due to his laryngeal anatomy secondary to partial laryngectomy due to laryngeal cancer Patient waiting for transfer (10) History of partial laryngectomy: Code(s): Z90.02 - Acquired absence of larynx Status: Acute Assessment and Plan: Secondary to laryngeal CA, tracheostomy dependent (11) End-stage renal disease on hemodialysis: Code(s): N18.6 - End stage renal disease; Z99.2 - Dependence on renal dialysis Status: Acute Assessment and Plan: ESRD on hemodialysis, Friday, , Friday -nephrology following continue dialysis per nephrology (12) Chronic respiratory failure with hypoxia, on home oxygen therapy: Code(s): J96.11 - Chronic respiratory failure with hypoxia; Z99.81 - Dependence on supplemental oxygen Status: Acute Assessment and Plan: Secondary to laryngeal CA, partial laryngectomy, volume overload, trach dependent obesity hypoventilation syndrome, obstructive sleep apnea given patient's body habitus (13) Abdominal distension: Code(s): R14.0 - Abdominal distension (gaseous) Status: Acute Assessment and Plan: Abdominal distension, likely fluid and air as seen on CT abdomen and pelvis -obstructive series did not show any abdominal pathology -will place NG tube and hook it up to suction before starting any feeding Plan DVT prophylaxis: SubQ heparin Stress ulcer prophylaxis: Protonix IV Nutrition: Will place NG tube and start tube feeding Code Status: Full code Subjective Date/time seen: 08/09/24 11:23 Interval history: Comfortable at bedside Awaiting transfer to [facility] Review of Systems Review of Systems: 12 systems were reviewed and are negative except for as per HPI. All systems reviewed & are unremarkable except as noted in HPI and below Exam Narrative: General: Pleasant gentleman, obese, in no acute distress HEENT:? ETT in the tracheostomy tract Neck:? Thick neck Respiratory:? Coarse breath sounds bilaterally, decreased at bases, no wheezing, adequate air entry Cardiac:? Sinus bradycardia, S1-S2 is normal Abdomen:? Soft, distended, nontender, hypoactive bowel sound Extremities:? Bilateral lower extremity chronic venous stasis change, pitting edema bilateral lower extremity, absent big toe on the right foot Neuro:? Patient is awake, alert, oriented, able to mouth words, follows simple commands in all extremities Skin:? Bilat lower extremity venous stasis changes Psych:? Normal mentation and affect Objective Data Vital Signs Vital Signs: Vital Signs - 24 hr 08/08/24 12:00 08/08/24 12:00 08/08/24 12:00 Temperature Pulse Rate 61 66 Respiratory Rate 15 Blood Pressure 113/72 113/72 Pulse Oximetry 100 98 Oxygen Delivery Mechanical Ventilation Fraction of Inspired Oxygen 40 08/08/24 12:00 08/08/24 12:00 08/08/24 13:35 Temperature Pulse Rate 61 66 Respiratory Rate Blood Pressure Pulse Oximetry 98 Oxygen Delivery Mechanical Ventilation Fraction of Inspired Oxygen 40 40 08/08/24 14:00 08/08/24 14:00 08/08/24 14:00 Temperature Pulse Rate 60 66 66 Respiratory Rate 14 Blood Pressure 135/85 135/85 Pulse Oximetry 98 Oxygen Delivery Fraction of Inspired Oxygen 08/08/24 16:00 08/08/24 16:00 08/08/24 16:00 Temperature 97.6 F Pulse Rate 66 66 Respiratory Rate 14 Blood Pressure 134/84 134/84 Pulse Oximetry 99 99 Oxygen Delivery Mechanical Ventilation Fraction of Inspired Oxygen 40 08/08/24 16:00 08/08/24 16:00 08/08/24 16:32 Temperature Pulse Rate 62 Respiratory Rate Blood Pressure Pulse Oximetry 99 Oxygen Delivery Mechanical Ventilation Fraction of Inspired Oxygen 40 40 08/08/24 18:00 08/08/24 18:00 08/08/24 18:00 Temperature Pulse Rate 54 L 54 L 64 Respiratory Rate 13 Blood Pressure 114/70 103/65 Pulse Oximetry 98 Oxygen Delivery Fraction of Inspired Oxygen 08/08/24 19:01 08/08/24 20:00 08/08/24 20:00 Temperature Pulse Rate 64 58 L Respiratory Rate 15 Blood Pressure 146/88 H Pulse Oximetry 100 Oxygen Delivery Mechanical Ventilation Fraction of Inspired Oxygen 30 30 08/08/24 20:00 08/08/24 20:01 08/08/24 20:18 Temperature Pulse Rate 53 L 53 L 58 L Respiratory Rate 14 Blood Pressure 85/62 L Pulse Oximetry 100 Oxygen Delivery Mechanical Ventilation Fraction of Inspired Oxygen 40 08/08/24 20:30 08/08/24 20:31 08/08/24 20:48 Temperature Pulse Rate 60 65 Respiratory Rate 14 16 Blood Pressure 115/75 Pulse Oximetry 95 Oxygen Delivery Mechanical Ventilation Fraction of Inspired Oxygen 30 08/08/24 21:00 08/08/24 21:01 08/08/24 21:30 Temperature Pulse Rate 59 L 59 L 59 L Respiratory Rate 14 14 14 Blood Pressure 98/70 L 97/69 L Pulse Oximetry Oxygen Delivery Fraction of Inspired Oxygen 08/08/24 22:00 08/08/24 22:00 08/08/24 22:30 Temperature Pulse Rate 59 L 59 L 58 L Respiratory Rate 14 14 Blood Pressure 103/72 109/72 Pulse Oximetry Oxygen Delivery Fraction of Inspired Oxygen 08/08/24 22:34 08/08/24 23:00 08/08/24 23:30 Temperature Pulse Rate 58 L 58 L 59 L Respiratory Rate 14 14 Blood Pressure 115/75 100/69 Pulse Oximetry 96 Oxygen Delivery Mechanical Ventilation Fraction of Inspired Oxygen 40 08/09/24 00:00 08/09/24 00:00 08/09/24 00:00 Temperature Pulse Rate 58 L 61 Respiratory Rate 14 Blood Pressure Pulse Oximetry 96 Oxygen Delivery Mechanical Ventilation Fraction of Inspired Oxygen 30 30 08/09/24 00:00 08/09/24 00:30 08/09/24 01:48 Temperature 98.2 F Pulse Rate 61 61 66 Respiratory Rate 14 14 Blood Pressure 127/76 117/76 Pulse Oximetry 100 Oxygen Delivery Mechanical Ventilation Fraction of Inspired Oxygen 40 08/09/24 02:00 08/09/24 02:00 08/09/24 03:36 Temperature Pulse Rate 60 60 Respiratory Rate 15 Blood Pressure 117/68 Pulse Oximetry 100 Oxygen Delivery Fraction of Inspired Oxygen 30 08/09/24 03:39 08/09/24 04:00 08/09/24 04:00 Temperature Pulse Rate 60 51 L 52 L Respiratory Rate 15 13 Blood Pressure 87/60 L Pulse Oximetry 100 Oxygen Delivery Mechanical Ventilation Fraction of Inspired Oxygen 30 08/09/24 04:30 08/09/24 05:00 08/09/24 06:00 Temperature Pulse Rate 52 L 49 L 63 Respiratory Rate 13 Blood Pressure 107/65 Pulse Oximetry 98 Oxygen Delivery Mechanical Ventilation Fraction of Inspired Oxygen 40 08/09/24 06:00 08/09/24 08:00 08/09/24 08:07 Temperature 97.2 F L Pulse Rate 62 65 60 Respiratory Rate 15 18 Blood Pressure 137/87 143/89 H Pulse Oximetry 98 99 99 Oxygen Delivery Mechanical Ventilation Fraction of Inspired Oxygen 30 08/09/24 08:45 08/09/24 08:45 08/09/24 09:06 Temperature 96.8 F L Pulse Rate 57 L 55 L Respiratory Rate 18 Blood Pressure 141/84 H 133/80 Pulse Oximetry 96 Oxygen Delivery Fraction of Inspired Oxygen 30 08/09/24 09:15 08/09/24 09:30 08/09/24 09:45 Temperature Pulse Rate 57 L 56 L 59 L Respiratory Rate Blood Pressure 137/84 137/83 140/84 Pulse Oximetry Oxygen Delivery Fraction of Inspired Oxygen 08/09/24 10:00 08/09/24 10:00 08/09/24 10:15 Temperature 96.8 F L Pulse Rate 59 L 59 L 65 Respiratory Rate 10 L Blood Pressure 136/84 136/84 125/77 Pulse Oximetry 94 Oxygen Delivery Fraction of Inspired Oxygen 08/09/24 10:30 08/09/24 10:31 08/09/24 10:45 Temperature Pulse Rate 57 L 59 L 59 L Respiratory Rate Blood Pressure 140/80 146/86 H Pulse Oximetry 97 Oxygen Delivery Mechanical Ventilation Fraction of Inspired Oxygen 30 08/09/24 11:00 08/09/24 11:15 Temperature Pulse Rate 59 L 57 L Respiratory Rate Blood Pressure 142/90 H 151/84 H Pulse Oximetry Oxygen Delivery Fraction of Inspired Oxygen Intake/Output Intake/Output: Intake & Output 08/06/24 08/07/24 08/09/24 08/09/24 23:59 23:59 00:59 23:59 Intake Total 3505.1 3699.2 365.9 250 Output Total 1999 250 125 Balance 3505.1 1699.2 115.9 125 Meds/Results Medications: Active Medications Generic Name Dose Route Start Last Admin Trade Name Freq PRN Reason Stop Dose Admin Dextrose 12.5 gm 08/07/24 16:42 08/09/24 05:55 Dextrose 50% 25 Gm/50 Ml Syringe IV PUSH 12.5 gm PRN PRN Administration Hypoglycemia Protocol Glucagon 1 mg 08/07/24 16:42 Glucagon For Inj 1 Mg Vial IM PRN PRN Hypoglycemia Protocol Glucose 15 gm 08/07/24 16:42 Glucose Oral Gel 15 Gm Of Glucse In 37.5 Gm Tube PO PRN PRN Hypoglycemia Protocol Heparin Sodium (Porcine) 5,000 units 08/07/24 22:00 08/09/24 05:16 Heparin Sodium 5,000 Units/Ml Vial SUB-Q 5,000 units Q8HR ISELA Administration Albumin Human 50 mls @ 999 mls/hr 08/07/24 15:18 Albutein IVPB 09/06/24 15:17 Q10M PRN HYPOTENSION Cefepime HCl 1 gm in 50 mls @ 100 mls/hr 08/07/24 21:00 08/08/24 20:51 Maxipime 1 Gm/Ns 50 Ml IVPB Infused Q24H ISELA Infusion Dextrose 1,000 mls @ 100 mls/hr 08/07/24 16:42 Dextrose 5% 1,000 Ml IVPB PRN PRN Hypoglycemia Protocol Azithromycin 500 mg in 250 mls @ 250 mls/hr 08/07/24 21:00 08/08/24 21:21 Zithromax IVPB Infused Q24H ISELA Infusion Insulin Aspart 3 - 6 units 08/07/24 18:00 08/09/24 06:04 Insulin Aspart (*Bkc) 100 Units/Ml SUB-Q Not Given Q6HR [facility] Protocol Levothyroxine Sodium 55 mcg 08/08/24 06:30 08/09/24 05:16 Levothyroxine Sodium Inj 100 Mcg/5 Ml Vial IV PUSH 55 mcg DAILY@0630 ISELA Administration Pantoprazole Sodium 40 mg 08/07/24 17:00 08/08/24 08:59 Pantoprazole Sodium Iv 40 Mg Vial IV PUSH 40 mg QAM ISELA Administration Vancomycin HCl 1 each 08/07/24 16:05 Vancomycin For Hemodialysis IVPB PRN PRN Vancomycin Protocol Radiology Results: ITS Impressions Head CT 08/05/24 14:14 IMPRESSION: 1. Normal aging brain. Chest/Abdomen/Pelvis CTA 08/05/24 14:21 IMPRESSION: No pulmonary embolus. No aortic dissection. Bilateral pleural effusions (right greater than left) with adjacent compressive atelectasis on the right and adjacent consolidation on the left. Tracheostomy extends into the right mainstem bronchus, for which resizing is suggested. Hepatosplenomegaly. Significant gaseous distention of the colon with retained gastric contents. Air opacification of the colon which is also distended. Intra-abdominal ascites. Congenital persistent left-sided inferior vena cava. Moderate anasarca Cholelithiasis without cholecystitis. Chest X-Ray 08/08/24 06:38 Impression: Moderate pulmonary edema pattern with small to moderate bilateral pleural effusions. Stable cardiomegaly. Abdomen X-Ray 08/08/24 11:08 Impression: NG tube in satisfactory position. Bilateral pleural effusions. Carotid Doppler Study 08/09/24 06:24 Impression: Elevated velocity in the left internal carotid artery is compatible with moderate (50-69%) stenosis. Nonvisualization of left vertebral artery. Note: The methodology used is an indirect measurement validated against a direct method (such as the NASCET criteria) that compares diameters at the stenosis to the distal ICA. Labs Labs: Laboratory Results - last 24 hr 08/08/24 08/08/24 08/08/24 12:35 18:46 19:19 WBC RBC Hgb Hct MCV MCH MCHC RDW Plt Count MPV Immature Gran % (Auto) Neut % (Auto) Lymph % (Auto) [place] % (Auto) Eos % (Auto) Baso % (Auto) Lymph # (Auto) [place] # (Auto) Eos # (Auto) Baso # (Auto) Abs Immat Gran (auto) Absolute Neuts (auto) Absolute Nucleated RBC Band Neutrophils % Nucleated RBC % Platelet Estimate % Immature Plt Fraction Macrocytosis Schistocytes Sodium Potassium Chloride Carbon Dioxide Anion Gap BUN Creatinine Estim Creat Clear Calc Estimated GFR Glucose POC Capillary Glucose 75 58 L* 110 H Calcium Magnesium Total Bilirubin AST ALT Alkaline Phosphatase Total Protein Albumin Random Vancomycin 08/08/24 08/08/24 08/08/24 21:00 23:24 23:59 WBC RBC Hgb Hct MCV MCH MCHC RDW Plt Count MPV Immature Gran % (Auto) Neut % (Auto) Lymph % (Auto) [place] % (Auto) Eos % (Auto) Baso % (Auto) Lymph # (Auto) [place] # (Auto) Eos # (Auto) Baso # (Auto) Abs Immat Gran (auto) Absolute Neuts (auto) Absolute Nucleated RBC Band Neutrophils % Nucleated RBC % Platelet Estimate % Immature Plt Fraction Macrocytosis Schistocytes Sodium Potassium Chloride Carbon Dioxide Anion Gap BUN Creatinine Estim Creat Clear Calc Estimated GFR Glucose POC Capillary Glucose 54 L* 105 Calcium Magnesium Total Bilirubin AST ALT Alkaline Phosphatase Total Protein Albumin Random Vancomycin 15.4 08/09/24 08/09/24 08/09/24 01:03 05:22 06:26 WBC 3.6 L RBC 3.33 L Hgb 11.8 L Hct 36.8 L MCV 110.5 H MCH 35.4 H MCHC 32.1 RDW 17.3 H Plt Count 88 L MPV 11.3 H Immature Gran % (Auto) 0.3 Neut % (Auto) 70.5 Lymph % (Auto) 13.9 L [place] % (Auto) 11.7 H Eos % (Auto) 2.8 Baso % (Auto) 0.8 Lymph # (Auto) 0.50 L [place] # (Auto) 0.4 Eos # (Auto) 0.1 Baso # (Auto) 0.0 Abs Immat Gran (auto) 0.01 Absolute Neuts (auto) 2.5 Absolute Nucleated RBC 0.000 Band Neutrophils % Not Reportable Nucleated RBC % 0.0 Platelet Estimate Decreased % Immature Plt Fraction 4.2 Macrocytosis 1+ Schistocytes None seen Sodium 134 L Potassium 4.2 Chloride 98 Carbon Dioxide 25 Anion Gap 11 BUN 50 H D Creatinine 5.41 H Estim Creat Clear Calc 17 Estimated GFR 11 L Glucose 64 L POC Capillary Glucose 92 113 H Calcium 8.1 L Magnesium 2.0 Total Bilirubin 1.2 AST 31 ALT 39 Alkaline Phosphatase 95 Total Protein 6.0 L Albumin 3.1 L Random Vancomycin Quality VTE Prophylaxis VTE prophylaxis: pharmacologic ordered
[2024-08-09 11:44] LABS: Glucose Point of Care 68 mg/dl (65-105)
--- NOTE | 2024-08-09 12:06 | P.CDI_ITS ---
CDI Query Clarification Request Please specify type and acuity of heart failure if known. Please clarify documented Right sided heart failure. * Acute * Chronic * Acute on Chronic * Unknown * Systolic * Diastolic * Combined Systolic and Diastolic * Unknown Clinical Indicators: (4) Right-sided heart failure: Code(s): I50.810 - Right heart failure, unspecified Status: Acute Assessment and Plan: Patient got dialyzed on 08/24 with 2000 mL in fluid removed Plan for dialysis again patient is overall volume overloaded Treatment: IV lasix x1 <Melany Roca RN - Last Filed: 08/09/24 12:10> Clarified Diagnosis Clarified Diagnosis: * Chronic, systolic <Shreyas Agudelo MD - Last Filed: 08/09/24 12:19>
--- NOTE | 2024-08-09 12:06 | WPDCDIQUERY2 ---
CDI Query Clarification Request Please specify type and acuity of heart failure if known. Please clarify documented Right sided heart failure. Acute Chronic Acute on Chronic Unknown Systolic Diastolic Combined Systolic and Diastolic Unknown Clinical Indicators: (4) Right-sided heart failure: Code(s): I50.810 - Right heart failure, unspecified Status: Acute Assessment and Plan: Patient got dialyzed on 08/24 with 2000 mL in fluid removed Plan for dialysis again patient is overall volume overloaded Treatment: IV lasix x1 <Melany Roca RN - Last Filed: 08/09/24 12:10> Clarified Diagnosis Clarified Diagnosis: Chronic, systolic <Onchristina Agudelo MD - Last Filed: 08/09/24 12:19>
[2024-08-09] MEDS: PANTOPRAZOLE SODIUM IV 40 MG VIAL IV PUSH (12:48)
[2024-08-09 13:31] LABS: Glucose Point of Care 94 mg/dl (65-105)
[2024-08-09] MEDS: MIDAZOLAM HCL (*CRX) 2 MG/2 ML VIAL IV PUSH (14:00)
[2024-08-09] MEDS: CENTRAL LINE FLUSH 10 ML IV PUSH ×2 (14:54→20:59)
--- NOTE | 2024-08-09 17:37 | PC.NURSE ---
Spoke with Carol from [facility] transfer center. Updates provided on hemodialysis tolerance and ability to pass NG tube successfully. No bed availability at this time but he remains on their list.
[2024-08-09 18:19] LABS: Glucose Point of Care 54 mg/dl (65-105)
[2024-08-09 18:49] LABS: Glucose Point of Care 87 mg/dl (65-105)
[2024-08-09] MEDS: CEFEPIME 1 GM/NS 50 ML 1 GM/50 ML BAG IVPB (20:58)
[2024-08-09] MEDS: AZITHROMYCIN 500 MG/NS 250 ML 500 MG/250 ML BAG 250 MG IVPB (20:58)
[2024-08-10] VITALS (37 sets, daily range): BP systolic 107–144; BP diastolic 74–89; PULSE 56–79; RESP 12–20; TEMP 36.3–37.2; O2SAT 96–100
[2024-08-10 00:11] LABS: Glucose Point of Care 73 mg/dl (65-105)
[2024-08-10 04:55] LABS: Hematocrit 37.8 % (42.0-52.0); Hemoglobin 12.3 g/dL (14.0-18.0); Mean Corpuscular HGB Conc 32.5 g/dl (32-36); Mean Corpuscular Hemoglobin 35.2 pg (26-34); Mean Corpuscular Volume 108.3 fl (80-100); Mean Platelet Volume 11.6 fl (7.4-10.4); Platelet Count Result 107 k/mm3 (150-375); Red Blood Count 3.49 M/mm3 (4.6-6.20); Red Cell Distribution Width 16.9 % (11.5-14.5); White Blood Count 4.4 K/mm3 (4.5-10.0)
[2024-08-10 05:08] LABS: Alanine Aminotransferase 35 U/L (6-50); Albumin Level 3.1 g/dL (3.5-5.1); Alkaline Phosphatase 102 U/L (38-126); Anion Gap 12 mmol/L (4-12); Aspartate Amino Transferase 31 U/L (17-59); Bilirubin,Total 1.2 mg/dL (0.2-1.3); Blood Urea Nitrogen 57 mg/dL (9-20); Calcium 8.2 mg/dL (8.4-10.2); Carbon Dioxide 25 mmol/L (22-30); Chloride 98 mmol/L (98-107); Estimated CRCL calculation 15 ml/min; Estimated Glomerular Filt Rate 9; Glucose 91 mg/dL (65-110); Potassium 4.2 mmol/L (3.4-5.0); Sodium 135 mmol/L (137-145)
[2024-08-10 05:33] LABS: Vancomycin Random 18.5 ug/mL (10-20)
[2024-08-10] MEDS: CENTRAL LINE FLUSH 10 ML IV PUSH ×3 (05:38→21:19)
[2024-08-10] MEDS: HEPARIN SODIUM 5,000 UNITS/ML VIAL 5000 UNITS SUB-Q ×3 (05:38→21:16)
[2024-08-10] MEDS: LEVOTHYROXINE SODIUM INJ 100 MCG/5 ML VIAL 55 MCG IV PUSH (05:38)
--- NOTE | 2024-08-10 08:42 | P.PNINT_ITS ---
Progress Note: A&P Assessment and Plan (1) Pre-syncope: Code(s): R55 - Syncope and collapse Status: Acute Assessment and Plan: Patient presented with dizziness, presyncope as they were doing dialysis on him on 08/05/2024 -patient was hypotensive which could be due to dialysis causing presyncope/dizziness, volume depletion -patient's blood pressures are labile, initially elevated, then blood pressures dropped after hemodialysis requiring Levophed -08/05/2024: CT brain was normal 08/09 carotid Dopplers Elevated velocity in the left internal carotid artery is compatible with moderate (50-69%) stenosis. Nonvisualization of left vertebral artery. Continue telemetry monitoring Will defer further workup to accepting tertiary facility (2) Hypertension: Code(s): I10 - Essential (primary) hypertension Status: Acute Assessment and Plan: Essential hypertension, will hold all antihypertensives as patient was on Levophed in the ER due to hypotension (3) Hypotension: Code(s): I95.9 - Hypotension, unspecified Status: Acute Assessment and Plan: Likely related to dialysis and fluid removal Now improved and patient off of vasopressors (4) Right-sided heart failure: Code(s): I50.810 - Right heart failure, unspecified Status: Acute Assessment and Plan: Continue dialysis for fluid removed (5) Elevated troponin: Code(s): R79.89 - Other specified abnormal findings of blood chemistry Status: Acute Assessment and Plan: Elevated troponin in the ER , plateaued x3 -likely related to end-stage renal disease, hypotension, respiratory distress (6) Hyperlipidemia: Code(s): E78.5 - Hyperlipidemia, unspecified Status: Acute Assessment and Plan: On pravastatin at home, currently will hold (7) Type 2 diabetes mellitus: Code(s): E11.9 - Type 2 diabetes mellitus without complications Status: Chronic Assessment and Plan: Sliding scale insulin Accu-Cheks (8) Hypothyroidism: Code(s): E03.9 - Hypothyroidism, unspecified Status: Acute Assessment and Plan: IV Levothyroxine (9) 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 Since we did not have ENT and at [facility] this weekend, ER physician called [facility] with the patient was accepted for ENT to insert a cuffed tracheostomy tube due to his laryngeal anatomy secondary to partial laryngectomy due to laryngeal cancer Patient waiting for transfer to [facility]. Patient needs his laryngeal tube to each change to a tracheostomy tube that can be attached to a ventilator before vent weaning weaning (10) History of partial laryngectomy: Code(s): Z90.02 - Acquired absence of larynx Status: Acute Assessment and Plan: Secondary to laryngeal CA, tracheostomy dependent (11) End-stage renal disease on hemodialysis: Code(s): N18.6 - End stage renal disease; Z99.2 - Dependence on renal dialysis Status: Acute Assessment and Plan: ESRD on hemodialysis, Friday, , Friday -nephrology following -08/07: HD with 2000 mL in fluid removed 08/09 3 L removed 08/10 patient getting dialyzed again today (12) Chronic respiratory failure with hypoxia, on home oxygen therapy: Code(s): J96.11 - Chronic respiratory failure with hypoxia; Z99.81 - Dependence on supplemental oxygen Status: Acute Assessment and Plan: Secondary to laryngeal CA, partial laryngectomy, volume overload, trach dependent obesity hypoventilation syndrome, obstructive sleep apnea given patient's body habitus Continue dialysis for fluid removal CT scan also shows areas consolidation patient is on vancomycin cefepime and azithromycin. Sputum culture is growing Haemophilus influenzae. Will discontinue vancomycin (13) Abdominal distension: Code(s): R14.0 - Abdominal distension (gaseous) Status: Acute Assessment and Plan: Abdominal distension, likely fluid and air as seen on CT abdomen and pelvis -obstructive series did not show any abdominal pathology Continue tube feeds (14) Pneumonia: Code(s): J18.9 - Pneumonia, unspecified organism Status: Acute Assessment and Plan: See above Plan DVT prophylaxis: SubQ heparin Stress ulcer prophylaxis: Protonix IV Nutrition: Continue tube feeding Code Status: Full code Critical Care Time Spent: 30 minutes Due to a high probability of clinically significant, life threatening deterioration, the patient required my highest level of preparedness to intervene emergently and I personally spent this critical care time directly and personally managing the patient. This critical care time included obtaining a history; examining the patient; pulse oximetry; ordering and review of studies; arranging urgent treatment with development of a management plan; evaluation of patient's response to treatment; frequent reassessment; and discussions with other providers. It was exclusive of separately billable procedures and treating other patients and teaching time. Please see Assessment and Plan section and the rest of the note for further information on patient assessment and treatment This dictation may have been done utilizing a voice recognition system. Attempts have been made to correct errors. However, there may be uncorrected grammatical, spelling, and recognitions errors present. Subjective Date/time seen: 08/10/24 Overnight events reviewed. Afebrile Continues to be on mechanical ventilation ASV Off vasopressors NG tube was placed yesterday and patient is now on tube feeds and tolerating them well. Denies any complaints Other Vitals acceptable Patient is being dialyzed today Interval history: Reason for consult: Near syncope, lightheadedness, shortness of breath, respiratory failure abdominal distention, end-stage renal disease on dialysis, shortness of breath, hypotension Review of Systems Review of Systems: All systems reviewed & are unremarkable except as noted in HPI and below Exam Narrative: General: Pleasant gentleman, obese, in no acute distress HEENT:? ETT in the tracheostomy tract Neck:? Thick neck Respiratory:? Coarse breath sounds bilaterally, decreased at bases, no wheezing, adequate air entry Cardiac:? Sinus bradycardia, S1-S2 is normal Abdomen:? Soft, distended, nontender, hypoactive bowel sound Extremities:? Bilateral lower extremity chronic venous stasis change, pitting edema bilateral lower extremity, absent big toe on the right foot Neuro:? Patient is awake, alert, oriented, able to mouth words, follows simple commands in all extremities Skin:? Bilat lower extremity venous stasis changes Psych:? Normal mentation and affect Objective Data Vital Signs Vital Signs: Vital Signs - 24 hr 08/09/24 08:45 08/09/24 08:45 08/09/24 09:06 Temperature 36.0 C L Pulse Rate 57 L 55 L Respiratory Rate 18 Blood Pressure 141/84 H 133/80 Pulse Oximetry 96 Oxygen Delivery Fraction of Inspired Oxygen 30 08/09/24 09:15 08/09/24 09:30 08/09/24 09:45 Temperature Pulse Rate 57 L 56 L 59 L Respiratory Rate Blood Pressure 137/84 137/83 140/84 Pulse Oximetry Oxygen Delivery Fraction of Inspired Oxygen 08/09/24 10:00 08/09/24 10:00 08/09/24 10:00 Temperature 36.0 C L Pulse Rate 59 L 59 L 59 L Respiratory Rate 10 L Blood Pressure 136/84 136/84 Pulse Oximetry 94 Oxygen Delivery Fraction of Inspired Oxygen 08/09/24 10:15 08/09/24 10:30 08/09/24 10:31 Temperature Pulse Rate 65 57 L 59 L Respiratory Rate Blood Pressure 125/77 140/80 Pulse Oximetry 97 Oxygen Delivery Mechanical Ventilation Fraction of Inspired Oxygen 30 08/09/24 10:45 08/09/24 11:00 08/09/24 11:15 Temperature Pulse Rate 59 L 59 L 57 L Respiratory Rate Blood Pressure 146/86 H 142/90 H 151/84 H Pulse Oximetry Oxygen Delivery Fraction of Inspired Oxygen 08/09/24 11:30 08/09/24 11:45 08/09/24 12:00 Temperature Pulse Rate 55 L 57 L 57 L Respiratory Rate Blood Pressure 142/83 H 143/85 H 153/87 H Pulse Oximetry Oxygen Delivery Fraction of Inspired Oxygen 08/09/24 12:00 08/09/24 12:00 08/09/24 12:00 Temperature 36.3 C L Pulse Rate 58 L 49 L 50 L Respiratory Rate 14 13 Blood Pressure 153/87 H Pulse Oximetry 95 100 Oxygen Delivery Mechanical Ventilation Fraction of Inspired Oxygen 30 08/09/24 12:00 08/09/24 12:06 08/09/24 12:33 Temperature 36.3 C L Pulse Rate 59 L 59 L Respiratory Rate 17 Blood Pressure 150/90 H 144/86 H Pulse Oximetry 95 Oxygen Delivery Fraction of Inspired Oxygen 30 08/09/24 13:29 08/09/24 14:00 08/09/24 14:00 Temperature Pulse Rate 55 L 57 L 51 L Respiratory Rate 14 Blood Pressure 128/87 Pulse Oximetry 96 100 Oxygen Delivery Mechanical Ventilation Fraction of Inspired Oxygen 30 08/09/24 16:00 08/09/24 16:00 08/09/24 16:00 Temperature 36.2 C L Pulse Rate 49 L 50 L 49 L Respiratory Rate 14 14 Blood Pressure 117/77 Pulse Oximetry 100 99 Oxygen Delivery Mechanical Ventilation Fraction of Inspired Oxygen 30 08/09/24 16:00 08/09/24 16:42 08/09/24 18:00 Temperature 36.3 C L Pulse Rate 48 L 56 L Respiratory Rate 14 Blood Pressure 141/83 H Pulse Oximetry 100 97 Oxygen Delivery Mechanical Ventilation Fraction of Inspired Oxygen 30 30 08/09/24 18:00 08/09/24 20:00 08/09/24 20:00 Temperature Pulse Rate 64 62 Respiratory Rate Blood Pressure Pulse Oximetry 99 Oxygen Delivery Mechanical Ventilation Fraction of Inspired Oxygen 30 08/09/24 20:00 08/09/24 20:13 08/09/24 20:20 Temperature 36.6 C Pulse Rate 62 67 Respiratory Rate 22 H Blood Pressure 135/85 Pulse Oximetry 98 97 Oxygen Delivery Mechanical Ventilation Fraction of Inspired Oxygen 30 30 08/09/24 22:00 08/09/24 22:00 08/09/24 23:09 Temperature 36.6 C Pulse Rate 63 59 L 65 Respiratory Rate 22 H Blood Pressure 118/82 Pulse Oximetry 98 97 Oxygen Delivery Mechanical Ventilation Fraction of Inspired Oxygen 30 08/10/24 00:00 08/10/24 00:00 08/10/24 00:00 Temperature 36.8 C Pulse Rate 64 63 Respiratory Rate 20 Blood Pressure 143/87 H Pulse Oximetry 98 99 Oxygen Delivery Mechanical Ventilation Fraction of Inspired Oxygen 30 08/10/24 00:00 08/10/24 01:55 08/10/24 02:00 Temperature Pulse Rate 67 66 Respiratory Rate Blood Pressure Pulse Oximetry 100 Oxygen Delivery Mechanical Ventilation Fraction of Inspired Oxygen 30 30 08/10/24 02:00 08/10/24 04:00 08/10/24 04:00 Temperature Pulse Rate 66 Respiratory Rate 14 Blood Pressure 133/89 Pulse Oximetry 100 97 Oxygen Delivery Mechanical Ventilation Fraction of Inspired Oxygen 30 30 08/10/24 04:00 08/10/24 04:00 08/10/24 05:36 Temperature Pulse Rate 62 56 L 67 Respiratory Rate 20 Blood Pressure 120/79 Pulse Oximetry 99 100 Oxygen Delivery Mechanical Ventilation Fraction of Inspired Oxygen 30 08/10/24 06:00 08/10/24 06:00 08/10/24 07:41 Temperature 36.6 C Pulse Rate 58 L 58 L 61 Respiratory Rate 14 14 Blood Pressure 128/81 122/76 Pulse Oximetry 99 100 Oxygen Delivery Fraction of Inspired Oxygen 08/10/24 08:00 08/10/24 08:12 08/10/24 08:27 Temperature 36.8 C Pulse Rate 63 66 Respiratory Rate 14 Blood Pressure 128/80 Pulse Oximetry 99 99 Oxygen Delivery Mechanical Ventilation Fraction of Inspired Oxygen 30 30 Intake/Output Intake/Output: Intake & Output 08/07/24 08/09/24 08/09/24 08/10/24 23:59 00:59 23:59 23:59 Intake Total 3699.2 365.9 550 465 Output Total 1999 250 3125 0 Balance 1699.2 115.9 -2575 465 Meds/Results Medications: Active Medications Generic Name Dose Route Start Last Admin Trade Name Freq PRN Reason Stop Dose Admin Dextrose 12.5 gm 08/07/24 16:42 08/09/24 18:19 Dextrose 50% 25 Gm/50 Ml Syringe IV PUSH 12.5 gm PRN PRN Administration Hypoglycemia Protocol Glucagon 1 mg 08/07/24 16:42 Glucagon For Inj 1 Mg Vial IM PRN PRN Hypoglycemia Protocol Glucose 15 gm 08/07/24 16:42 Glucose Oral Gel 15 Gm Of Glucse In 37.5 Gm Tube PO PRN PRN Hypoglycemia Protocol Heparin Sodium (Porcine) 5,000 units 08/07/24 22:00 08/10/24 05:38 Heparin Sodium 5,000 Units/Ml Vial SUB-Q 5,000 units Q8HR ISELA Administration Albumin Human 50 mls @ 999 mls/hr 08/07/24 15:18 Albutein IVPB 09/06/24 15:17 Q10M PRN HYPOTENSION Cefepime HCl 1 gm in 50 mls @ 100 mls/hr 08/07/24 21:00 08/09/24 23:16 Maxipime 1 Gm/Ns 50 Ml IVPB Infused Q24H ISELA Infusion Dextrose 1,000 mls @ 100 mls/hr 08/07/24 16:42 Dextrose 5% 1,000 Ml IVPB PRN PRN Hypoglycemia Protocol Azithromycin 500 mg in 250 mls @ 250 mls/hr 08/07/24 21:00 08/09/24 23:15 Zithromax IVPB Infused Q24H ISELA Infusion Vancomycin HCl 1,000 mg in 250 mls @ 250 mls/hr 08/10/24 18:00 Vancomycin 1,000 Mg/Ns 250 Ml IVPB 08/10/24 18:59 ONCE ONE Insulin Aspart 3 - 6 units 08/07/24 18:00 08/10/24 05:34 Insulin Aspart (*Bkc) 100 Units/Ml SUB-Q Not Given Q6HR ISELA Protocol Levothyroxine Sodium 55 mcg 08/08/24 06:30 08/10/24 05:38 Levothyroxine Sodium Inj 100 Mcg/5 Ml Vial IV PUSH 55 mcg DAILY@0630 ISELA Administration Pantoprazole Sodium 40 mg 08/07/24 17:00 08/09/24 12:48 Pantoprazole Sodium Iv 40 Mg Vial IV PUSH 40 mg QAM ISELA Administration Sodium Chloride 10 ml 08/09/24 14:00 08/10/24 05:38 Central Line Flush IV PUSH 10 ml Q8HR ISELA Administration Sodium Chloride 20 ml 08/09/24 13:29 Central Line Flush IV PUSH PRN PRN after blood draws Vancomycin HCl 1 each 08/07/24 16:05 Vancomycin For Hemodialysis IVPB PRN PRN Vancomycin Protocol Radiology Results: ITS Impressions Head CT 08/05/24 14:14 IMPRESSION: 1. Normal aging brain. Chest/Abdomen/Pelvis CTA 08/05/24 14:21 IMPRESSION: No pulmonary embolus. No aortic dissection. Bilateral pleural effusions (right greater than left) with adjacent compressive atelectasis on the right and adjacent consolidation on the left. Tracheostomy extends into the right mainstem bronchus, for which resizing is suggested. Hepatosplenomegaly. Significant gaseous distention of the colon with retained gastric contents. Air opacification of the colon which is also distended. Intra-abdominal ascites. Congenital persistent left-sided inferior vena cava. Moderate anasarca Cholelithiasis without cholecystitis. Carotid Doppler Study 08/09/24 06:24 Impression: Elevated velocity in the left internal carotid artery is compatible with moderate (50-69%) stenosis. Nonvisualization of left vertebral artery. Note: The methodology used is an indirect measurement validated against a direct method (such as the NASCET criteria) that compares diameters at the stenosis to the distal ICA. Abdomen X-Ray 08/09/24 14:23 IMPRESSION: 1. Nasogastric tube tip in the stomach. Chest X-Ray 08/10/24 06:34 Impression: Moderate left pleural effusion and small right pleural effusion, with mild to moderate pulmonary edema pattern. Support tubes, as above. Labs Labs: Laboratory Results - last 24 hr 08/09/24 08/09/24 08/09/24 11:42 13:29 18:17 WBC RBC Hgb Hct MCV MCH MCHC RDW Plt Count MPV Sodium Potassium Chloride Carbon Dioxide Anion Gap BUN Creatinine Estim Creat Clear Calc Estimated GFR Glucose POC Capillary Glucose 68 94 54 L* Calcium Magnesium Total Bilirubin AST ALT Alkaline Phosphatase Total Protein Albumin Random Vancomycin 08/09/24 08/10/24 08/10/24 18:47 00:05 04:49 WBC 4.4 L RBC 3.49 L Hgb 12.3 L Hct 37.8 L MCV 108.3 H MCH 35.2 H MCHC 32.5 RDW 16.9 H Plt Count 107 L MPV 11.6 H Sodium 135 L Potassium 4.2 Chloride 98 Carbon Dioxide 25 Anion Gap 12 BUN 57 H Creatinine 6.26 H Estim Creat Clear Calc 15 Estimated GFR 9 L Glucose 91 POC Capillary Glucose 87 73 Calcium 8.2 L Magnesium 2.0 Total Bilirubin 1.2 AST 31 ALT 35 Alkaline Phosphatase 102 Total Protein 6.0 L Albumin 3.1 L Random Vancomycin 18.5 Quality VTE Prophylaxis VTE prophylaxis: pharmacologic ordered
--- NOTE | 2024-08-10 09:14 | P.PNNP_ITS ---
Progress Note: A&P Assessment and Plan (1) End stage renal disease: Code(s): N18.6 - End stage renal disease Status: Chronic Assessment and Plan: * HD today * continue Friday//Friday dialysis schedule while hospitalized * received on partial treatment on (08/06) prior to ER prese * follow electrolytes, volume status, and clearance * primary crab backer = Dr. Isaiha Davis * outpatient dialysis unit = [facility] (2) Chronic respiratory failure with hypoxia, on home oxygen therapy: Code(s): J96.11 - Chronic respiratory failure with hypoxia; Z99.81 - Dependence on supplemental oxygen Status: Acute Assessment and Plan: * due to laryngeal cancer s/p, partial laryngectomy, obesity hypoventilation syndrome, and obstructive sleep apnea * currently tracheostomy dependent * tracheostomy tube replaced with ETT in ER * on mechanical ventilation at this time * complicated by pneumonia * awaiting transfer to [facility] for ENT evaluation of tracheostomy (3) Hypotension: Code(s): I95.9 - Hypotension, unspecified Status: Acute Assessment and Plan: * resolved if not better at this time * presumably due to dialysis treatment and accompanying ultrafiltration/fluid removal * however, does have significant swelling/edema on exam... * was requiring low dose levophed (initiated in ER) * weaned off vasopressor therapy * known history of hypertension * all BP medications on hold currently * follow trend of hemodynamics (4) Pneumonia: Code(s): J18.9 - Pneumonia, unspecified organism Status: Acute Assessment and Plan: * as suggested by recent imaging * sputum culture with Haemophilus influenzae * on antibiotic therapy (5) Volume overload: Code(s): E87.70 - Fluid overload, unspecified Status: Acute Assessment and Plan: * as evidenced by exam * fluid removal with HD/DUF as tolerated by hemodynamics * DUF today for further fluid removal (6) Pre-syncope: Code(s): R55 - Syncope and collapse Status: Acute Assessment and Plan: * presented with this and dizziness during outpatient dialysis treatment on 08/05/24 * suspect secondary to hypotension as noted by vital signs in ER * clinically better with better blood pressure readings * CT of brain (08/05) negative * carotid dopplers (08/09): * elevated velocity in the left internal carotid artery is compatible with moderate (50-69%) stenosis. * nonvisualization of left vertebral artery. * monitor telemetry (7) Hypertension: Code(s): I10 - Essential (primary) hypertension Status: Chronic Assessment and Plan: * BP medications on hold due to previous hypotension requiring vasopresspr therapy * reasonable control at this time * re-introduce BP mediations as needed * follow trend of hemodynamics (8) Type 2 diabetes mellitus: Code(s): E11.9 - Type 2 diabetes mellitus without complications Status: Chronic Assessment and Plan: * follow accu-cheks * glycemic control per hospitalist/air drill operator Will continue to follow. L Subjective Date/time seen: 08/10/24 09:14 Interval history: Follow-up for end stage renal disease on hemodialysis. Tolerating dialysis treatment at the time of my visit (seen on HD at 9:05AM); tolerated dry ultrafiltration treatment yesterday with 3L fluid removal; remains on mechanical ventilation via ETT through tracehstomy stoma; stable hemodynamics noted; no apparent distress noted; NGT placed yesterday for tube feedings; no other issues/events overnight or earlier this morning. Exam 2 Narrative: General: WD/WN male in NAD Heart: normal S1 and S2; no rub Lungs: coarse with decreased breath sounds at bases Abdomen: soft, nontender but mild distension, positive bowel sounds Extremities: no cyanosis or clubbing; 1+ edema in UEs and LEs Skin: no rash Objective Data Vital Signs Vital Signs: Vital Signs Temp Pulse Resp BP Pulse Ox O2 Del Method FiO2 08/10/24 09:00 59 L 118/74 08/10/24 08:45 60 125/84 08/10/24 08:27 65 128/78 08/10/24 08:27 30 08/10/24 08:12 66 99 Mechanical Ventilation 08/10/24 08:00 30 08/10/24 08:00 64 08/10/24 08:00 64 14 100 Mechanical Ventilation 08/10/24 08:00 98.3 F 63 14 128/80 99 08/10/24 07:41 97.9 F 61 14 122/76 100 08/10/24 06:00 58 L 14 128/81 99 08/10/24 06:00 58 L 08/10/24 05:36 67 100 Mechanical Ventilation 08/10/24 04:00 56 L 20 120/79 99 08/10/24 04:00 62 08/10/24 04:00 30 08/10/24 04:00 97 Mechanical Ventilation 08/10/24 02:00 66 14 133/89 100 08/10/24 02:00 66 08/10/24 01:55 67 100 Mechanical Ventilation 08/10/24 00:00 30 08/10/24 00:00 63 08/10/24 00:00 99 Mechanical Ventilation 08/10/24 00:00 98.3 F 64 20 143/87 H 98 08/09/24 23:09 65 97 Mechanical Ventilation 08/09/24 22:00 59 L 08/09/24 22:00 98 F 63 22 H 118/82 98 08/09/24 20:20 67 97 Mechanical Ventilation 08/09/24 20:13 97.8 F 62 22 H 135/85 98 08/09/24 20:00 30 08/09/24 20:00 62 08/09/24 20:00 99 Mechanical Ventilation 08/09/24 18:00 64 08/09/24 18:00 97.4 F L 56 L 14 141/83 H 97 08/09/24 16:42 48 L 100 Mechanical Ventilation 08/09/24 16:00 30 08/09/24 16:00 49 L 08/09/24 16:00 50 L 14 99 Mechanical Ventilation 08/09/24 16:00 97.2 F L 49 L 14 117/77 100 08/09/24 14:00 51 L 08/09/24 14:00 57 L 14 128/87 100 08/09/24 13:29 55 L 96 Mechanical Ventilation 08/09/24 12:33 97.4 F L 59 L 17 144/86 H 95 08/09/24 12:06 59 L 150/90 H 08/09/24 12:00 30 08/09/24 12:00 50 L 08/09/24 12:00 49 L 13 100 Mechanical Ventilation 08/09/24 12:00 97.4 F L 58 L 14 153/87 H 95 08/09/24 12:00 57 L 153/87 H 08/09/24 11:45 57 L 143/85 H 08/09/24 11:30 55 L 142/83 H 08/09/24 11:15 57 L 151/84 H 03/10/25 11:00 59 L 142/90 H 08/09/24 10:45 59 L 146/86 H Intake/Output Intake/Output: Intake & Output 08/07/24 08/09/24 08/09/24 08/10/24 23:59 00:59 23:59 23:59 Intake Total 3699.2 365.9 550 465 Output Total 2000 250 3125 0 Balance 1699.2 115.9 -2575 465 Meds/Results Medications: Active Medications Generic Name Dose Route Start Last Admin Trade Name Freq PRN Reason Stop Dose Admin Dextrose 12.5 gm 08/07/24 16:42 08/09/24 18:19 Dextrose 50% 25 Gm/50 Ml Syringe IV PUSH 12.5 gm PRN PRN Administration Hypoglycemia Protocol Glucagon 1 mg 08/07/24 16:42 Glucagon For Inj 1 Mg Vial IM PRN PRN Hypoglycemia Protocol Glucose 15 gm 08/07/24 16:42 Glucose Oral Gel 15 Gm Of Glucse In 37.5 Gm Tube PO PRN PRN Hypoglycemia Protocol Heparin Sodium (Porcine) 5,000 units 08/07/24 22:00 08/10/24 05:38 Heparin Sodium 5,000 Units/Ml Vial SUB-Q 5,000 units Q8HR ISELA Administration Albumin Human 50 mls @ 999 mls/hr 08/07/24 15:18 Albutein IVPB 09/06/24 15:17 Q10M PRN HYPOTENSION Cefepime HCl 1 gm in 50 mls @ 100 mls/hr 08/07/24 21:00 08/09/24 23:16 Maxipime 1 Gm/Ns 50 Ml IVPB Infused Q24H ISELA Infusion Dextrose 1,000 mls @ 100 mls/hr 08/07/24 16:42 Dextrose 5% 1,000 Ml IVPB PRN PRN Hypoglycemia Protocol Azithromycin 500 mg in 250 mls @ 250 mls/hr 08/07/24 21:00 08/09/24 23:15 Zithromax IVPB 08/12/24 20:59 Infused Q24H ISELA Infusion Insulin Aspart 3 - 6 units 08/07/24 18:00 08/10/24 05:34 Insulin Aspart (*Bkc) 100 Units/Ml SUB-Q Not Given Q6HR ISELA Protocol Levothyroxine Sodium 55 mcg 08/08/24 06:30 08/10/24 05:38 Levothyroxine Sodium Inj 100 Mcg/5 Ml Vial IV PUSH 55 mcg DAILY@0630 ISELA Administration Pantoprazole Sodium 40 mg 08/07/24 17:00 08/09/24 12:48 Pantoprazole Sodium Iv 40 Mg Vial IV PUSH 40 mg QAM ISELA Administration Sodium Chloride 10 ml 08/09/24 14:00 08/10/24 05:38 Central Line Flush IV PUSH 10 ml Q8HR ISELA Administration Sodium Chloride 20 ml 08/09/24 13:29 Central Line Flush IV PUSH PRN PRN after blood draws Radiology Results: ITS Impressions Head CT 08/05/24 14:14 IMPRESSION: 1. Normal aging brain. Chest/Abdomen/Pelvis CTA 08/05/24 14:21 IMPRESSION: No pulmonary embolus. No aortic dissection. Bilateral pleural effusions (right greater than left) with adjacent compressive atelectasis on the right and adjacent consolidation on the left. Tracheostomy extends into the right mainstem bronchus, for which resizing is suggested. Hepatosplenomegaly. Significant gaseous distention of the colon with retained gastric contents. Air opacification of the colon which is also distended. Intra-abdominal ascites. Congenital persistent left-sided inferior vena cava. Moderate anasarca Cholelithiasis without cholecystitis. Carotid Doppler Study 08/09/24 06:24 Impression: Elevated velocity in the left internal carotid artery is compatible with moderate (50-69%) stenosis. Nonvisualization of left vertebral artery. Note: The methodology used is an indirect measurement validated against a direct method (such as the NASCET criteria) that compares diameters at the stenosis to the distal ICA. Abdomen X-Ray 08/09/24 14:23 IMPRESSION: 1. Nasogastric tube tip in the stomach. Chest X-Ray 08/10/24 06:34 Impression: Moderate left pleural effusion and small right pleural effusion, with mild to moderate pulmonary edema pattern. Support tubes, as above. Labs Labs: Laboratory Tests 08/10/24 04:49 08/10/24 04:49 Calcium 8.2 L Magnesium 2.0 Total Bilirubin 1.2 AST 31 ALT 35 Alkaline Phosphatase 102 Total Protein 6.0 L Albumin 3.1 L Random Vancomycin 18.5 Microbiology 08/07/24 17:08 Sputum Sputum Culture - Final Haemophilus influenzae
--- NOTE | 2024-08-10 10:33 | PCNFU ---
Nutrition Follow-Up Complete: Inadequate energy intake related to mechanical ventilation as evidenced by need for full tube feeding goal: Meet estimated protein energy needs Patient is progressing towards goal. Pt current nutrition is Nepro at 40 ml/hr. Last recorded weight is 115.3 kg, stable Bowel Motility: Last reported BM 08/04 Labs Reviewed:Cr 6.2, BUN 57, NA 135, K 5.5, Hct 37.8, Hgb 12.3 Meds Noted:Protonix, NovoLog,Heparin. Skin: WNL Additional Notes: Patient current with Trach. Tube feedings are being tolerated of Nepro at 40 ml/hr providing 1584 kcal/66 gm protein/640 ml water. Flush 30 ml q 4 hours. Discussion in rounds regarding possible transfer to [facility]. If patient is not transferred recommend adding Prosource BID to better meet protein needs. Agree with diet orders. Monitoring tube feeding tolerance, labs, vitals, output, weights, plan of care Following daily in rounds, reassess Friday and Fridays.
[2024-08-10] MEDS: PANTOPRAZOLE SODIUM IV 40 MG VIAL IV PUSH (11:30)
[2024-08-10 12:04] LABS: Glucose Point of Care 106 mg/dl (65-105)
--- NOTE | 2024-08-10 12:07 | PC.NURSE ---
Update provided to Valentina with [facility] transfer center.
[2024-08-10 18:01] LABS: Glucose Point of Care 103 mg/dl (65-105)
[2024-08-10] MEDS: AZITHROMYCIN 500 MG/NS 250 ML 500 MG/250 ML BAG 250 MG IVPB (21:15)
[2024-08-10] MEDS: CEFEPIME 1 GM/NS 50 ML 1 GM/50 ML BAG IVPB (21:16)
[2024-08-11] VITALS (16 sets, daily range): BP systolic 136–163; BP diastolic 81–97; PULSE 62–90; RESP 12–22; TEMP 36.8–37.2; O2SAT 98–100
[2024-08-11 00:10] LABS: Glucose Point of Care 108 mg/dl (65-105)
[2024-08-11 05:17] LABS: Hematocrit 39.8 % (42.0-52.0); Hemoglobin 12.7 g/dL (14.0-18.0); Immature Platelet Fraction Pct 3.5 % (0.9-11.2); Mean Corpuscular HGB Conc 31.9 g/dl (32-36); Mean Corpuscular Hemoglobin 34.8 pg (26-34); Mean Platelet Volume 10.8 fl (7.4-10.4); Platelet Count Result 95 k/mm3 (150-375); Red Blood Count 3.65 M/mm3 (4.6-6.20); Red Cell Distribution Width 16.7 % (11.5-14.5); White Blood Count 4.7 K/mm3 (4.5-10.0)
[2024-08-11 05:33] LABS: Alanine Aminotransferase 33 U/L (6-50); Albumin Level 3.4 g/dL (3.5-5.1); Alkaline Phosphatase 122 U/L (38-126); Anion Gap 11 mmol/L (4-12); Aspartate Amino Transferase 32 U/L (17-59); Bilirubin,Total 1.2 mg/dL (0.2-1.3); Blood Urea Nitrogen 41 mg/dL (9-20); Calcium 8.4 mg/dL (8.4-10.2); Carbon Dioxide 26 mmol/L (22-30); Chloride 99 mmol/L (98-107); Estimated CRCL calculation 19 ml/min; Estimated Glomerular Filt Rate 12; Glucose 94 mg/dL (65-110); Magnesium 2.2 mg/dL (1.6-2.3); Potassium 3.9 mmol/L (3.4-5.0); Sodium 136 mmol/L (137-145)
[2024-08-11] MEDS: LEVOTHYROXINE SODIUM INJ 100 MCG/5 ML VIAL 55 MCG IV PUSH (05:52)
[2024-08-11] MEDS: CENTRAL LINE FLUSH 10 ML IV PUSH ×2 (06:08→14:05)
[2024-08-11] MEDS: PANTOPRAZOLE SODIUM IV 40 MG VIAL IV PUSH (08:27)
--- NOTE | 2024-08-11 09:02 | P.PNIM_ITS ---
Progress Note: A&P Assessment and Plan (1) End-stage renal disease on hemodialysis: Code(s): N18.6 - End stage renal disease; Z99.2 - Dependence on renal dialysis Status: Acute Plan (1) Pre-syncope: Code(s): R55 - Syncope and collapse Status: Acute Assessment and Plan: Patient presented with dizziness, presyncope as they were doing dialysis on him on 08/05/2024 -patient was hypotensive which could be due to dialysis causing presyncope/dizziness, volume depletion -patient's blood pressures are labile, initially elevated, then blood pressures dropped after hemodialysis requiring Levophed -08/05/2024: CT brain was normal 08/09 carotid Dopplers Elevated velocity in the left internal carotid artery is compatible with moderate (50-69%) stenosis. Nonvisualization of left vertebral artery. Continue telemetry monitoring Industrial Safety Engineer recommend to transfer patient to tertiary facility for evaluation treatment (2) Hypertension: Code(s): I10 - Essential (primary) hypertension Status: Acute Assessment and Plan: Essential hypertension, will hold all antihypertensives as patient was on Levophed in the ER due to hypotension (3) Hypotension: Code(s): I95.9 - Hypotension, unspecified Status: Acute Assessment and Plan: Likely related to dialysis and fluid removal Now improved and patient off of vasopressors (4) Right-sided heart failure: Code(s): I50.810 - Right heart failure, unspecified Status: Acute Assessment and Plan: Continue dialysis for fluid removed (5) Elevated troponin: Code(s): R79.89 - Other specified abnormal findings of blood chemistry Status: Acute Assessment and Plan: Elevated troponin in the ER , plateaued x3 -likely related to end-stage renal disease, hypotension, respiratory distress (6) Hyperlipidemia: Code(s): E78.5 - Hyperlipidemia, unspecified Status: Acute Assessment and Plan: On pravastatin at home, currently will hold (7) Type 2 diabetes mellitus: Code(s): E11.9 - Type 2 diabetes mellitus without complications Status: Chronic Assessment and Plan: Sliding scale insulin Accu-Cheks (8) Hypothyroidism: Code(s): E03.9 - Hypothyroidism, unspecified Status: Acute Assessment and Plan: IV Levothyroxine (9) 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 Since we did not have ENT and at [facility] this weekend, ER physician called [facility] with the patient was accep mehdi for ENT to insert a cuffed tracheostomy tube due to his laryngeal anatomy secondary to partial laryngectomy due to laryngeal cancer Patient waiting for transfer to [facility]. Patient needs his laryngeal tube to each change to a tracheostomy tube that can be attached to a ventilator before vent weaning weaning (10) History of partial laryngectomy: Code(s): Z90.02 - Acquired absence of larynx Status: Acute Assessment and Plan: Secondary to laryngeal CA, tracheostomy dependent (11) End-stage renal disease on hemodialysis: Code(s): N18.6 - End stage renal disease; Z99.2 - Dependence on renal dialysis Status: Acute Assessment and Plan: ESRD on hemodialysis, Friday, , Friday -nephrology following -08/07: HD with 2000 mL in fluid removed 08/09 3 L removed 08/10 patient getting dialyzed again today (12) Chronic respiratory failure with hypoxia, on home oxygen therapy: Code(s): J96.11 - Chronic respiratory failure with hypoxia; Z99.81 - Dependence on supplemental oxygen Status: Acute Assessment and Plan: Secondary to laryngeal CA, partial laryngectomy, volume overload, trach depen dent obesity hypoventilation syndrome, obstructive sleep apnea given patient's body habitus Continue dialysis for fluid removal CT scan also shows areas consolidation patient is on vancomycin cefepime and azithromycin. Sputum culture is growing Haemophilus influenzae. Will discontinue vancomycin (13) Abdominal distension: Code(s): R14.0 - Abdominal distension (gaseous) Status: Acute Assessment and Plan: Abdominal distension, likely fluid and air as seen on CT abdomen and pelvis -obstructive series did not show any abdominal pathology Continue tube feeds (14) Pneumonia: Code(s): J18.9 - Pneumonia, unspecified organism Status: Acute Assessment and Plan: See above Plan DVT prophylaxis: SubQ heparin Stress ulcer prophylaxis: Protonix IV Nutrition: Continue tube feeding Subjective Date/time seen: 08/11/24 09:02 Interval history: I saw examined patient in presents of patient in ICU. Patient is on ventilator support. patient lethargic Likely secondary to the pain medication. Patient denies chest pain nausea vomiting. Exam Narrative: General: Pleasant gentleman, obese, in no acute distress HEENT:? ETT in the tracheostomy tract Neck:? Thick neck Respiratory:? Coarse breath sounds bilaterally, decreased at bases, no wheezing, adequate air entry Cardiac:? Sinus bradycardia, S1-S2 is normal Abdomen:? Soft, distended, nontender, hypoactive bowel sound Extremities:? Bilateral lower extremity chronic venous stasis change, pitting edema bilateral lower extremity, absent big toe on the right foot Neuro:? Patient is awake, alert, oriented, able to mouth words, follows simple commands in all extremities Skin:? Bilat lower extremity venous stasis changes Psych:? Normal mentation and affect Objective Data Vital Signs Vital Signs: Vital Signs - 24 hr 08/10/24 09:15 08/10/24 09:30 08/10/24 09:45 Temperature Pulse Rate 64 69 67 Respiratory Rate Blood Pressure 124/78 123/77 119/78 Pulse Oximetry Oxygen Delivery Fraction of Inspired Oxygen 08/10/24 10:00 08/10/24 10:00 08/10/24 10:00 Temperature 98.2 F Pulse Rate 63 64 67 Respiratory Rate 14 Blood Pressure 123/74 123/74 Pulse Oximetry 100 Oxygen Delivery Fraction of Inspired Oxygen 08/10/24 10:15 08/10/24 10:30 08/10/24 10:45 Temperature Pulse Rate 64 68 68 Respiratory Rate Blood Pressure 123/75 135/81 134/77 Pulse Oximetry Oxygen Delivery Fraction of Inspired Oxygen 08/10/24 11:00 08/10/24 11:15 08/10/24 11:16 Temperature Pulse Rate 65 67 66 Respiratory Rate Blood Pressure 120/80 127/76 Pulse Oximetry 100 Oxygen Delivery Mechanical Ventilation Fraction of Inspired Oxygen 30 08/10/24 11:30 08/10/24 11:45 08/10/24 11:57 Temperature Pulse Rate 68 70 71 Respiratory Rate Blood Pressure 127/77 123/78 128/82 Pulse Oximetry Oxygen Delivery Fraction of Inspired Oxygen 08/10/24 12:00 08/10/24 12:00 08/10/24 12:00 Temperature 97.4 F L Pulse Rate 69 64 71 Respiratory Rate 16 14 Blood Pressure 131/76 Pulse Oximetry 100 100 Oxygen Delivery Mechanical Ventilation Fraction of Inspired Oxygen 30 08/10/24 12:00 08/10/24 12:02 08/10/24 14:00 Temperature 97.4 F L 98.4 F Pulse Rate 73 62 Respiratory Rate 16 16 Blood Pressure 144/86 H 128/77 Pulse Oximetry 100 100 Oxygen Delivery Fraction of Inspired Oxygen 30 08/10/24 14:00 08/10/24 14:37 08/10/24 16:00 Temperature 97.8 F Pulse Rate 61 63 62 Respiratory Rate 14 Blood Pressure 127/77 Pulse Oximetry 100 100 Oxygen Delivery Mechanical Ventilation Fraction of Inspired Oxygen 30 08/10/24 16:00 08/10/24 16:00 08/10/24 16:00 Temperature Pulse Rate 70 60 Respiratory Rate 15 Blood Pressure Pulse Oximetry 100 Oxygen Delivery Mechanical Ventilation Fraction of Inspired Oxygen 30 30 08/10/24 17:22 08/10/24 18:00 08/10/24 18:00 Temperature 98.9 F Pulse Rate 70 76 72 Respiratory Rate 14 Blood Pressure 140/85 Pulse Oximetry 100 100 Oxygen Delivery Mechanical Ventilation Fraction of Inspired Oxygen 30 08/10/24 19:53 08/10/24 20:00 08/10/24 20:00 Temperature Pulse Rate 71 Respiratory Rate Blood Pressure Pulse Oximetry 100 100 Oxygen Delivery Mechanical Ventilation Mechanical Ventilation Fraction of Inspired Oxygen 30 30 30 08/10/24 20:00 08/10/24 20:17 08/10/24 22:00 Temperature 99 F 98.8 F Pulse Rate 75 79 79 Respiratory Rate 12 16 Blood Pressure 129/81 107/75 Pulse Oximetry 100 96 Oxygen Delivery Fraction of Inspired Oxygen 08/10/24 22:00 08/10/24 23:05 08/11/24 00:00 Temperature 98.6 F Pulse Rate 75 74 74 Respiratory Rate 22 H Blood Pressure 138/88 Pulse Oximetry 100 100 Oxygen Delivery Mechanical Ventilation Fraction of Inspired Oxygen 30 08/11/24 00:00 08/11/24 00:00 08/11/24 00:00 Temperature Pulse Rate 79 Respiratory Rate Blood Pressure Pulse Oximetry 100 Oxygen Delivery Mechanical Ventilation Fraction of Inspired Oxygen 30 30 08/11/24 02:00 08/11/24 02:00 08/11/24 02:20 Temperature 98.4 F Pulse Rate 79 80 90 Respiratory Rate 18 Blood Pressure 136/90 Pulse Oximetry 99 98 Oxygen Delivery Mechanical Ventilation Fraction of Inspired Oxygen 30 08/11/24 04:00 08/11/24 04:00 08/11/24 04:00 Temperature Pulse Rate 84 Respiratory Rate Blood Pressure Pulse Oximetry 100 Oxygen Delivery Mechanical Ventilation Fraction of Inspired Oxygen 30 30 08/11/24 04:19 08/11/24 05:44 08/11/24 06:00 Temperature 98.2 F Pulse Rate 69 81 75 Respiratory Rate 16 Blood Pressure 158/87 H Pulse Oximetry 99 100 Oxygen Delivery Mechanical Ventilation Fraction of Inspired Oxygen 30 08/11/24 06:00 08/11/24 08:00 08/11/24 08:00 Temperature 98.6 F Pulse Rate 75 66 Respiratory Rate 22 H 16 Blood Pressure 151/89 H 137/82 Pulse Oximetry 99 100 Oxygen Delivery Fraction of Inspired Oxygen 50 08/11/24 08:10 Temperature Pulse Rate 66 Respiratory Rate Blood Pressure Pulse Oximetry 100 Oxygen Delivery Mechanical Ventilation Fraction of Inspired Oxygen 50 Intake/Output Intake/Output: Intake & Output 08/09/24 08/09/24 08/10/24 08/11/24 00:59 23:59 23:59 23:59 Intake Total 365.9 550 1306 480 Output Total 250 3125 3000 0 Balance 115.9 -2176 -0688 480 Meds/Results Medications: Active Medications Generic Name Dose Route Start Last Admin Trade Name Freq PRN Reason Stop Dose Admin Dextrose 12.5 gm 08/07/24 16:42 08/09/24 18:19 Dextrose 50% 25 Gm/50 Ml Syringe IV PUSH 12.5 gm PRN PRN Administration Hypoglycemia Protocol Glucagon 1 mg 08/07/24 16:42 Glucagon For Inj 1 Mg Vial IM PRN PRN Hypoglycemia Protocol Glucose 15 gm 08/07/24 16:42 Glucose Oral Gel 15 Gm Of Glucse In 37.5 Gm Tube PO PRN PRN Hypoglycemia Protocol Heparin Sodium (Porcine) 5,000 units 08/07/24 22:00 08/11/24 05:51 Heparin Sodium 5,000 Units/Ml Vial SUB-Q Not Given Q8HR ISELA Albumin Human 50 mls @ 999 mls/hr 08/07/24 15:18 Albutein IVPB 09/06/24 15:17 Q10M PRN HYPOTENSION Cefepime HCl 1 gm in 50 mls @ 100 mls/hr 08/07/24 21:00 08/10/24 21:46 Maxipime 1 Gm/Ns 50 Ml IVPB Infused Q24H ISELA Infusion Dextrose 1,000 mls @ 100 mls/hr 08/07/24 16:42 Dextrose 5% 1,000 Ml IVPB PRN PRN Hypoglycemia Protocol Azithromycin 500 mg in 250 mls @ 250 mls/hr 08/07/24 21:00 08/10/24 22:15 Zithromax IVPB 08/11/24 21:59 Infused Q24H ISELA Infusion Insulin Aspart 3 - 6 units 08/07/24 18:00 08/11/24 06:07 Insulin Aspart (*Bkc) 100 Units/Ml SUB-Q Not Given Q6HR ISELA Protocol Levothyroxine Sodium 55 mcg 08/08/24 06:30 08/11/24 05:52 Levothyroxine Sodium Inj 100 Mcg/5 Ml Vial IV PUSH 55 mcg DAILY@0630 ISELA Administration Pantoprazole Sodium 40 mg 08/07/24 17:00 08/11/24 08:27 Pantoprazole Sodium Iv 40 Mg Vial IV PUSH 40 mg QAM ISELA Administration Sodium Chloride 10 ml 08/09/24 14:00 08/11/24 06:08 Central Line Flush IV PUSH 10 ml Q8HR ISELA Administration Sodium Chloride 20 ml 08/09/24 13:29 Central Line Flush IV PUSH PRN PRN after blood draws Radiology Results: ITS Impressions Head CT 08/05/24 14:14 IMPRESSION: 1. Normal aging brain. Chest/Abdomen/Pelvis CTA 08/05/24 14:21 IMPRESSION: No pulmonary embolus. No aortic dissection. Bilateral pleural effusions (right greater than left) with adjacent compressive atelectasis on the right and adjacent consolidation on the left. Tracheostomy extends into the right mainstem bronchus, for which resizing is suggested. Hepatosplenomegaly. Significant gaseous distention of the colon with retained gastric contents. Air opacification of the colon which is also distended. Intra-abdominal ascites. Congenital persistent left-sided inferior vena cava. Moderate anasarca Cholelithiasis without cholecystitis. Carotid Doppler Study 08/09/24 06:24 Impression: Elevated velocity in the left internal carotid artery is compatible with moderate (50-69%) stenosis. Nonvisualization of left vertebral artery. Note: The methodology used is an indirect measurement validated against a direct method (such as the NASCET criteria) that compares diameters at the stenosis to the distal ICA. Abdomen X-Ray 08/09/24 14:23 IMPRESSION: 1. Nasogastric tube tip in the stomach. Chest X-Ray 08/11/24 06:33 Impression: Moderate pulmonary edema pattern with small bilateral pleural effusions. Support tubes, as above. Labs Labs: Laboratory Results - last 24 hr 08/10/24 08/10/24 08/11/24 12:02 17:55 00:06 WBC RBC Hgb Hct MCV MCH MCHC RDW Plt Count MPV % Immature Plt Fraction Sodium Potassium Chloride Carbon Dioxide Anion Gap BUN Creatinine Estim Creat Clear Calc Estimated GFR Glucose POC Capillary Glucose 106 H 103 108 H Calcium Magnesium Total Bilirubin AST ALT Alkaline Phosphatase Total Protein Albumin 08/11/24 05:07 WBC 4.7 RBC 3.65 L Hgb 12.7 L Hct 39.8 L MCV 109.0 H MCH 34.8 H MCHC 31.9 L RDW 16.7 H Plt Count 95 L MPV 10.8 H % Immature Plt Fraction 3.5 Sodium 136 L Potassium 3.9 Chloride 99 Carbon Dioxide 26 Anion Gap 11 BUN 41 H D Creatinine 4.88 H Estim Creat Clear Calc 19 Estimated GFR 12 L Glucose 94 POC Capillary Glucose Calcium 8.4 Magnesium 2.2 Total Bilirubin 1.2 AST 32 ALT 33 Alkaline Phosphatase 122 Total Protein 6.0 L Albumin 3.4 L
--- NOTE | 2024-08-11 09:05 | P.PNINT_ITS ---
Progress Note: A&P Assessment and Plan (1) Chronic respiratory failure with hypoxia, on home oxygen therapy: Code(s): J96.11 - Chronic respiratory failure with hypoxia; Z99.81 - Dependence on supplemental oxygen Status: Acute Assessment and Plan: Secondary to laryngeal CA, partial laryngectomy, volume overload, trach dependent obesity hypoventilation syndrome, obstructive sleep apnea given patient's body habitus Continue dialysis for fluid removal CT scan also shows areas consolidation patient is on cefepime and azithromycin. Sputum culture is growing Haemophilus influenzae. Off vancomycin ABG and chest x-ray reviewed Increase PEEP to 8 (2) 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 Since we did not have ENT and at [facility] this weekend, ER physician called [facility] with the patient was accepted for ENT to insert a cuffed tracheostomy tube due to his laryngeal anatomy secondary to partial laryngectomy due to laryngeal cancer Patient waiting for transfer to [facility]. Patient needs his laryngeal tube to each change to a tracheostomy tube that can be attached to a ventilator before vent weaning weaning Patient still awaits transfer to [facility]. I called the transfer center this morning and no bed is available. no availability of ENT in any other [facility] facility. (3) Pre-syncope: Code(s): R55 - Syncope and collapse Status: Acute Assessment and Plan: Patient presented with dizziness, presyncope as they were doing dialysis on him on 08/05/2024 -patient was hypotensive which could be due to dialysis causing presyncope/dizziness, volume depletion -patient's blood pressures are labile, initially elevated, then blood pressures dropped after hemodialysis requiring Levophed -08/05/2024: CT brain was normal 08/09 carotid Dopplers Elevated velocity in the left internal carotid artery is compatible with moderate (50-69%) stenosis. Nonvisualization of left vertebral artery. Continue telemetry monitoring Will defer further workup to accepting tertiary facility (4) Hypertension: Code(s): I10 - Essential (primary) hypertension Status: Chronic Assessment and Plan: Essential hypertension, will hold all antihypertensives as patient was on Levophed in the ER due to hypotension (5) Hypotension: Code(s): I95.9 - Hypotension, unspecified Status: Acute Assessment and Plan: Likely related to dialysis and fluid removal Now improved and patient off of vasopressors (6) Right-sided heart failure: Code(s): I50.810 - Right heart failure, unspecified Status: Acute Assessment and Plan: Continue dialysis for fluid removed (7) Elevated troponin: Code(s): R79.89 - Other specified abnormal findings of blood chemistry Status: Acute Assessment and Plan: Elevated troponin in the ER , plateaued x3 -likely related to end-stage renal disease, hypotension, respiratory distress (8) Hyperlipidemia: Code(s): E78.5 - Hyperlipidemia, unspecified Status: Acute Assessment and Plan: On pravastatin at home, currently will hold (9) Type 2 diabetes mellitus: Code(s): E11.9 - Type 2 diabetes mellitus without complications Status: Chronic Assessment and Plan: Sliding scale insulin Accu-Cheks (10) Hypothyroidism: Code(s): E03.9 - Hypothyroidism, unspecified Status: Acute Assessment and Plan: IV Levothyroxine (11) History of partial laryngectomy: Code(s): Z90.02 - Acquired absence of larynx Status: Acute Assessment and Plan: Secondary to laryngeal CA, tracheostomy dependent (12) End-stage renal disease on hemodialysis: Code(s): N18.6 - End stage renal disease; Z99.2 - Dependence on renal dialysis Status: Acute Assessment and Plan: ESRD on hemodialysis, Friday, , Friday -nephrology following -08/07: HD with 2000 mL in fluid removed 08/09 3 L removed 08/10 patient getting dialyzed again today (13) Abdominal distension: Code(s): R14.0 - Abdominal distension (gaseous) Status: Acute Assessment and Plan: Abdominal distension, likely fluid and air as seen on CT abdomen and pelvis -obstructive series did not show any abdominal pathology Continue tube feeds (14) Pneumonia: Code(s): J18.9 - Pneumonia, unspecified organism Status: Acute Assessment and Plan: See above Plan DVT prophylaxis: SubQ heparin Stress ulcer prophylaxis: Protonix IV Nutrition: Continue tube feeding Code Status: Full code Critical Care Time Spent: 30 minutes Due to a high probability of clinically significant, life threatening deterioration, the patient required my highest level of preparedness to intervene emergently and I personally spent this critical care time directly and personally managing the patient. This critical care time included obtaining a history; examining the patient; pulse oximetry; ordering and review of studies; arranging urgent treatment with development of a management plan; evaluation of patient's response to treatment; frequent reassessment; and discussions with other providers. It was exclusive of separately billable procedures and treating other patients and teaching time. Please see Assessment and Plan section and the rest of the note for further information on patient assessment and treatment This dictation may have been done utilizing a voice recognition system. Attempts have been made to correct errors. However, there may be uncorrected grammatical, spelling, and recognitions errors present. Subjective Date/time seen: 08/11/24 Overnight events reviewed. Afebrile Continues to be on mechanical ventilation 50% FiO2 Tolerating tube feed No new complaint. Vitals acceptable Still waiting for a bed for transfer Interval history: Reason for consult: Near syncope, lightheadedness, shortness of breath, respi ratory failure abdominal distention, end-stage renal disease on dialysis, shortness of breath, hypotension Review of Systems Review of Systems: All systems reviewed & are unremarkable except as noted in HPI and below Exam Narrative: General: Pleasant gentleman, obese, in no acute distress HEENT:? ETT in the tracheostomy tract Neck:? Thick neck Respiratory:? Coarse breath sounds bilaterally, decreased at bases, no wheezing, adequate air entry Cardiac:? Sinus bradycardia, S1-S2 is normal Abdomen:? Soft, distended, nontender, hypoactive bowel sound Extremities:? Bilateral lower extremity chronic venous stasis change, pitting e brad bilateral lower extremity, absent big toe on the right foot Neuro:? Patient is awake, alert, oriented, able to mouth words, follows simple commands in all extremities Skin:? Bilat lower extremity venous stasis changes Psych:? Normal mentation and affect Objective Data Vital Signs Vital Signs: Vital Signs - 24 hr 08/10/24 09:15 08/10/24 09:30 08/10/24 09:45 Temperature Pulse Rate 64 69 67 Respiratory Rate Blood Pressure 124/78 123/77 119/78 Pulse Oximetry Oxygen Delivery Fraction of Inspired Oxygen 08/10/24 10:00 08/10/24 10:00 08/10/24 10:00 Temperature 36.8 C Pulse Rate 63 64 67 Respiratory Rate 14 Blood Pressure 123/74 123/74 Pulse Oximetry 100 Oxygen Delivery Fraction of Inspired Oxygen 08/10/24 10:15 08/10/24 10:30 08/10/24 10:45 Temperature Pulse Rate 64 68 68 Respiratory Rate Blood Pressure 123/75 135/81 134/77 Pulse Oximetry Oxygen Delivery Fraction of Inspired Oxygen 08/10/24 11:00 08/10/24 11:15 08/10/24 11:16 Temperature Pulse Rate 65 67 66 Respiratory Rate Blood Pressure 120/80 127/76 Pulse Oximetry 100 Oxygen Delivery Mechanical Ventilation Fraction of Inspired Oxygen 30 08/10/24 11:30 08/10/24 11:45 08/10/24 11:57 Temperature Pulse Rate 68 70 71 Respiratory Rate Blood Pressure 127/77 123/78 128/82 Pulse Oximetry Oxygen Delivery Fraction of Inspired Oxygen 08/10/24 12:00 08/10/24 12:00 08/10/24 12:00 Temperature 36.3 C L Pulse Rate 69 64 71 Respiratory Rate 16 14 Blood Pressure 131/76 Pulse Oximetry 100 100 Oxygen Delivery Mechanical Ventilation Fraction of Inspired Oxygen 30 08/10/24 12:00 08/10/24 12:02 08/10/24 14:00 Temperature 36.3 C L 36.9 C Pulse Rate 73 62 Respiratory Rate 16 16 Blood Pressure 144/86 H 128/77 Pulse Oximetry 100 100 Oxygen Delivery Fraction of Inspired Oxygen 30 08/10/24 14:00 08/10/24 14:37 08/10/24 16:00 Temperature 36.6 C Pulse Rate 61 63 62 Respiratory Rate 14 Blood Pressure 127/77 Pulse Oximetry 100 100 Oxygen Delivery Mechanical Ventilation Fraction of Inspired Oxygen 30 08/10/24 16:00 08/10/24 16:00 08/10/24 16:00 Temperature Pulse Rate 70 60 Respiratory Rate 15 Blood Pressure Pulse Oximetry 100 Oxygen Delivery Mechanical Ventilation Fraction of Inspired Oxygen 30 30 08/10/24 17:22 08/10/24 18:00 08/10/24 18:00 Temperature 37.2 C Pulse Rate 70 76 72 Respiratory Rate 14 Blood Pressure 140/85 Pulse Oximetry 100 100 Oxygen Delivery Mechanical Ventilation Fraction of Inspired Oxygen 30 08/10/24 19:53 08/10/24 20:00 08/10/24 20:00 Temperature Pulse Rate 71 Respiratory Rate Blood Pressure Pulse Oximetry 100 100 Oxygen Delivery Mechanical Ventilation Mechanical Ventilation Fraction of Inspired Oxygen 30 30 30 08/10/24 20:00 08/10/24 20:17 08/10/24 22:00 Temperature 37.2 C 37.1 C Pulse Rate 75 79 79 Respiratory Rate 12 16 Blood Pressure 129/81 107/75 Pulse Oximetry 100 96 Oxygen Delivery Fraction of Inspired Oxygen 08/10/24 22:00 08/10/24 23:05 08/11/24 00:00 Temperature 37.0 C Pulse Rate 75 74 74 Respiratory Rate 22 H Blood Pressure 138/88 Pulse Oximetry 100 100 Oxygen Delivery Mechanical Ventilation Fraction of Inspired Oxygen 30 08/11/24 00:00 08/11/24 00:00 08/11/24 00:00 Temperature Pulse Rate 79 Respiratory Rate Blood Pressure Pulse Oximetry 100 Oxygen Delivery Mechanical Ventilation Fraction of Inspired Oxygen 30 30 08/11/24 02:00 08/11/24 02:00 08/11/24 02:20 Temperature 36.9 C Pulse Rate 79 80 90 Respiratory Rate 18 Blood Pressure 136/90 Pulse Oximetry 99 98 Oxygen Delivery Mechanical Ventilation Fraction of Inspired Oxygen 30 08/11/24 04:00 08/11/24 04:00 08/11/24 04:00 Temperature Pulse Rate 84 Respiratory Rate Blood Pressure Pulse Oximetry 100 Oxygen Delivery Mechanical Ventilation Fraction of Inspired Oxygen 30 30 08/11/24 04:19 08/11/24 05:44 08/11/24 06:00 Temperature 36.8 C Pulse Rate 69 81 75 Respiratory Rate 16 Blood Pressure 158/87 H Pulse Oximetry 99 100 Oxygen Delivery Mechanical Ventilation Fraction of Inspired Oxygen 30 08/11/24 06:00 08/11/24 08:00 08/11/24 08:00 Temperature 37.0 C Pulse Rate 75 66 Respiratory Rate 22 H 16 Blood Pressure 151/89 H 137/82 Pulse Oximetry 99 100 Oxygen Delivery Fraction of Inspired Oxygen 50 08/11/24 08:10 Temperature Pulse Rate 66 Respiratory Rate Blood Pressure Pulse Oximetry 100 Oxygen Delivery Mechanical Ventilation Fraction of Inspired Oxygen 50 Intake/Output Intake/Output: Intake & Output 08/09/24 08/09/24 08/10/24 08/11/24 00:59 23:59 23:59 23:59 Intake Total 365.9 550 1306 480 Output Total 250 3125 3000 0 Balance 115.9 -7523 -2507 480 Meds/Results Medications: Active Medications Generic Name Dose Route Start Last Admin Trade Name Freq PRN Reason Stop Dose Admin Dextrose 12.5 gm 08/07/24 16:42 08/09/24 18:19 Dextrose 50% 25 Gm/50 Ml Syringe IV PUSH 12.5 gm PRN PRN Administration Hypoglycemia Protocol Glucagon 1 mg 08/07/24 16:42 Glucagon For Inj 1 Mg Vial IM PRN PRN Hypoglycemia Protocol Glucose 15 gm 08/07/24 16:42 Glucose Oral Gel 15 Gm Of Glucse In 37.5 Gm Tube PO PRN PRN Hypoglycemia Protocol Heparin Sodium (Porcine) 5,000 units 08/07/24 22:00 08/11/24 05:51 Heparin Sodium 5,000 Units/Ml Vial SUB-Q Not Given Q8HR ISELA Albumin Human 50 mls @ 999 mls/hr 08/07/24 15:18 Albutein IVPB 09/06/24 15:17 Q10M PRN HYPOTENSION Cefepime HCl 1 gm in 50 mls @ 100 mls/hr 08/07/24 21:00 08/10/24 21:46 Maxipime 1 Gm/Ns 50 Ml IVPB Infused Q24H ISELA Infusion Dextrose 1,000 mls @ 100 mls/hr 08/07/24 16:42 Dextrose 5% 1,000 Ml IVPB PRN PRN Hypoglycemia Protocol Azithromycin 500 mg in 250 mls @ 250 mls/hr 08/07/24 21:00 08/10/24 22:15 Zithromax IVPB 08/11/24 21:59 Infused Q24H ISELA Infusion Insulin Aspart 3 - 6 units 08/07/24 18:00 08/11/24 06:07 Insulin Aspart (*Bkc) 100 Units/Ml SUB-Q Not Given Q6HR ISELA Protocol Levothyroxine Sodium 55 mcg 08/08/24 06:30 08/11/24 05:52 Levothyroxine Sodium Inj 100 Mcg/5 Ml Vial IV PUSH 55 mcg DAILY@0630 ISELA Administration Pantoprazole Sodium 40 mg 08/07/24 17:00 08/11/24 08:27 Pantoprazole Sodium Iv 40 Mg Vial IV PUSH 40 mg QAM ISELA Administration Sodium Chloride 10 ml 08/09/24 14:00 08/11/24 06:08 Central Line Flush IV PUSH 10 ml Q8HR ISELA Administration Sodium Chloride 20 ml 08/09/24 13:29 Central Line Flush IV PUSH PRN PRN after blood draws Radiology Results: ITS Impressions Head CT 08/05/24 14:14 IMPRESSION: 1. Normal aging brain. Chest/Abdomen/Pelvis CTA 08/05/24 14:21 IMPRESSION: No pulmonary embolus. No aortic dissection. Bilateral pleural effusions (right greater than left) with adjacent compressive atelectasis on the right and adjacent consolidation on the left. Tracheostomy extends into the right mainstem bronchus, for which resizing is suggested. Hepatosplenomegaly. Significant gaseous distention of the colon with retained gastric contents. Air opacification of the colon which is also distended. Intra-abdominal ascites. Congenital persistent left-sided inferior vena cava. Moderate anasarca Cholelithiasis without cholecystitis. Carotid Doppler Study 08/09/24 06:24 Impression: Elevated velocity in the left internal carotid artery is compatible with moderate (50-69%) stenosis. Nonvisualization of left vertebral artery. Note: The methodology used is an indirect measurement validated against a direct method (such as the NASCET criteria) that compares diameters at the stenosis to the distal ICA. Abdomen X-Ray 08/09/24 14:23 IMPRESSION: 1. Nasogastric tube tip in the stomach. Chest X-Ray 08/11/24 06:33 Impression: Moderate pulmonary edema pattern with small bilateral pleural effusions. Support tubes, as above. Labs Labs: Laboratory Results - last 24 hr 08/10/24 08/10/24 08/11/24 12:02 17:55 00:06 WBC RBC Hgb Hct MCV MCH MCHC RDW Plt Count MPV % Immature Plt Fraction Sodium Potassium Chloride Carbon Dioxide Anion Gap BUN Creatinine Estim Creat Clear Calc Estimated GFR Glucose POC Capillary Glucose 106 H 103 108 H Calcium Magnesium Total Bilirubin AST ALT Alkaline Phosphatase Total Protein Albumin 08/11/24 05:07 WBC 4.7 RBC 3.65 L Hgb 12.7 L Hct 39.8 L MCV 109.0 H MCH 34.8 H MCHC 31.9 L RDW 16.7 H Plt Count 95 L MPV 10.8 H % Immature Plt Fraction 3.5 Sodium 136 L Potassium 3.9 Chloride 99 Carbon Dioxide 26 Anion Gap 11 BUN 41 H D Creatinine 4.88 H Estim Creat Clear Calc 19 Estimated GFR 12 L Glucose 94 POC Capillary Glucose Calcium 8.4 Magnesium 2.2 Total Bilirubin 1.2 AST 32 ALT 33 Alkaline Phosphatase 122 Total Protein 6.0 L Albumin 3.4 L Quality VTE Prophylaxis VTE prophylaxis: pharmacologic ordered
--- NOTE | 2024-08-11 10:27 | PCNFU ---
Nutrition Follow-Up Complete: Inadequate energy intake related to mechanical ventilation as evidenced by need for full tube feeding Goal: Meet estimated protein energy needs Patient will continue current goal. Pt current nutrition is Nepro at 40 ml/hr. Last recorded weight is 109.4 kg, down from 115.4 kg on admit. Pt. is on dialysis. Bowel Motility: +BM reported 08/10 Labs Reviewed:Cr 4.88, P04 5.5, BUN 41, Na 136 Meds Noted:Protonix, NovoLog Skin: WNL Additional Notes: Patient remains on a transfer list for [facility] for ENT services. Intubated via trach. Tolerating tube feedings of Nepro at 40 ml/hr. Flush 30 ml q 4 hours. Recommend adding Prosource BID for additional 160 kcal and 40 gm protein. Patient had dialysis 08/10. Monitoring tube feeding tolerance, labs, vitals, output, weights, plan of care Following daily in rounds, reassess Friday and Fridays.
--- NOTE | 2024-08-11 10:45 | P.PNNP_ITS ---
Progress Note: A&P Assessment and Plan (1) End stage renal disease: Code(s): N18.6 - End stage renal disease Status: Chronic Assessment and Plan: * HD tomorrow * continue Friday//Friday dialysis schedule while hospitalized * received on partial treatment on (08/06) prior to ER prese * follow electrolytes, volume status, and clearance * primary weight and balance control agent = Dr. Isaiah Davis * outpatient dialysis unit = [facility] (2) Chronic respiratory failure with hypoxia, on home oxygen therapy: Code(s): J96.11 - Chronic respiratory failure with hypoxia; Z99.81 - Dependence on supplemental oxygen Status: Acute Assessment and Plan: * due to laryngeal cancer s/p, partial laryngectomy, obesity hypoventilation syndrome, and obstructive sleep apnea * currently tracheostomy dependent * tracheostomy tube replaced with ETT in ER * on mechanical ventilation at this time * complicated by pneumonia * awaiting transfer to [facility] for ENT evaluation of tracheostomy (3) Hypotension: Code(s): I95.9 - Hypotension, unspecified Status: Acute Assessment and Plan: * resolved * presumably due to dialysis treatment and accompanying ultrafiltration/fluid removal * however, does have significant swelling/edema on exam... * was requiring low dose levophed (initiated in ER) * weaned off vasopressor therapy * follow trend of hemodynamics (4) Pneumonia: Code(s): J18.9 - Pneumonia, unspecified organism Status: Acute Assessment and Plan: * as suggested by recent imaging * sputum culture with Haemophilus influenzae * on antibiotic therapy (5) Volume overload: Code(s): E87.70 - Fluid overload, unspecified Status: Acute Assessment and Plan: * as evidenced by exam * fluid removal with HD/DUF as tolerated by hemodynamics * DUF (on 08/09) for further fluid removal (6) Pre-syncope: Code(s): R55 - Syncope and collapse Status: Acute Assessment and Plan: * presented with this and dizziness during outpatient dialysis treatment on 08/05/24 * suspect secondary to hypotension as noted by vital signs in ER * clinically better with better blood pressure readings * CT of brain (08/05) negative * carotid dopplers (08/09): * elevated velocity in the left internal carotid artery is compatible with moderate (50-69%) stenosis. * nonvisualization of left vertebral artery. * monitor telemetry (7) Hypertension: Code(s): I10 - Essential (primary) hypertension Status: Chronic Assessment and Plan: * BP medications on hold due to previous hypotension requiring vasopresspr therapy * reasonable control at this time * re-introduce BP mediations as needed * follow trend of hemodynamics (8) Type 2 diabetes mellitus: Code(s): E11.9 - Type 2 diabetes mellitus without complications Status: Chronic Assessment and Plan: * follow accu-cheks * glycemic control per hospitalist/colliery clerk Will continue to follow. L Subjective Date/time seen: 08/11/24 10:45 Interval history: Follow-up for end stage renal disease on hemodialysis. Tolerated dialysis treatment yesterday without any issues or problems; remains on mechanical ventilation via ETT through tracheostomy stoma; no apparent distress noted at the time of my visit; no events overnight or earlier this morning; stable hemodynamics noted; still awaiting transfer to [facility] Exam 2 Narrative: General: WD/WN male in NAD Heart: normal S1 and S2; no rub Lungs: coarse with decreased breath sounds at bases Abdomen: soft, nontender but mild distension, positive bowel sounds Extremities: no cyanosis or clubbing; trace - 1+ edema in UEs and LEs Skin: no nodules Objective Data Vital Signs Vital Signs: Vital Signs Temp Pulse Resp BP Pulse Ox O2 Del Method FiO2 08/11/24 10:00 69 08/11/24 10:00 73 17 154/95 H 100 08/11/24 08:10 66 100 Mechanical Ventilation 50 08/11/24 08:00 63 08/11/24 08:00 66 16 100 Mechanical Ventilation 50 08/11/24 08:00 50 08/11/24 08:00 98.6 F 66 16 137/82 100 08/11/24 06:00 75 22 H 151/89 H 99 08/11/24 06:00 75 08/11/24 05:44 81 100 Mechanical Ventilation 30 08/11/24 04:19 98.2 F 69 16 158/87 H 99 08/11/24 04:00 84 08/11/24 04:00 30 08/11/24 04:00 100 Mechanical Ventilation 30 08/11/24 02:20 90 98 Mechanical Ventilation 30 08/11/24 02:00 80 08/11/24 02:00 98.4 F 79 18 136/90 99 03/12/25 00:00 79 08/11/24 00:00 30 08/11/24 00:00 100 Mechanical Ventilation 30 08/11/24 00:00 98.6 F 74 22 H 138/88 100 08/10/24 23:05 74 100 Mechanical Ventilation 30 08/10/24 22:00 75 08/10/24 22:00 98.8 F 79 16 107/75 96 08/10/24 20:17 99 F 79 12 129/81 100 08/10/24 20:00 75 08/10/24 20:00 30 08/10/24 20:00 100 Mechanical Ventilation 30 08/10/24 19:53 71 100 Mechanical Ventilation 08/10/24 18:00 98.9 F 72 14 140/85 100 08/10/24 18:00 76 08/10/24 17:22 70 100 Mechanical Ventilation 30 08/10/24 16:00 30 08/10/24 16:00 60 08/10/24 16:00 70 15 100 Mechanical Ventilation 30 08/10/24 16:00 97.8 F 62 14 127/77 100 08/10/24 14:37 63 100 Mechanical Ventilation 30 08/10/24 14:00 61 08/10/24 14:00 98.4 F 62 16 128/77 100 08/10/24 12:02 97.4 F L 73 16 144/86 H 100 08/10/24 12:00 30 08/10/24 12:00 71 08/10/24 12:00 64 14 100 Mechanical Ventilation 08/10/24 12:00 97.4 F L 69 16 131/76 100 08/10/24 11:57 71 128/82 08/10/24 11:45 70 123/78 08/10/24 11:30 68 127/77 08/10/24 11:16 66 100 Mechanical Ventilation 30 08/10/24 11:15 67 127/76 Intake/Output Intake/Output: Intake & Output 08/09/24 08/09/24 08/10/24 08/11/24 00:59 23:59 23:59 23:59 Intake Total 365.9 550 1306 480 Output Total 250 3125 3000 0 Balance 115.9 -6640 -9580 480 Meds/Results Medications: Active Medications Generic Name Dose Route Start Last Admin Trade Name Freq PRN Reason Stop Dose Admin Dextrose 12.5 gm 08/07/24 16:42 08/09/24 18:19 Dextrose 50% 25 Gm/50 Ml Syringe IV PUSH 12.5 gm PRN PRN Administration Hypoglycemia Protocol Glucagon 1 mg 08/07/24 16:42 Glucagon For Inj 1 Mg Vial IM PRN PRN Hypoglycemia Protocol Glucose 15 gm 08/07/24 16:42 Glucose Oral Gel 15 Gm Of Glucse In 37.5 Gm Tube PO PRN PRN Hypoglycemia Protocol Heparin Sodium (Porcine) 5,000 units 08/07/24 22:00 08/11/24 05:51 Heparin Sodium 5,000 Units/Ml Vial SUB-Q Not Given Q8HR ISELA Albumin Human 50 mls @ 999 mls/hr 08/07/24 15:18 Albutein IVPB 09/06/24 15:17 Q10M PRN HYPOTENSION Cefepime HCl 1 gm in 50 mls @ 100 mls/hr 08/07/24 21:00 08/10/24 21:46 Maxipime 1 Gm/Ns 50 Ml IVPB Infused Q24H ISELA Infusion Dextrose 1,000 mls @ 100 mls/hr 08/07/24 16:42 Dextrose 5% 1,000 Ml IVPB PRN PRN Hypoglycemia Protocol Azithromycin 500 mg in 250 mls @ 250 mls/hr 08/07/24 21:00 08/10/24 22:15 Zithromax IVPB 08/11/24 21:59 Infused Q24H ISELA Infusion Insulin Aspart 3 - 6 units 08/07/24 18:00 08/11/24 06:07 Insulin Aspart (*Bkc) 100 Units/Ml SUB-Q Not Given Q6HR ISELA Protocol Levothyroxine Sodium 55 mcg 08/08/24 06:30 08/11/24 05:52 Levothyroxine Sodium Inj 100 Mcg/5 Ml Vial IV PUSH 55 mcg DAILY@0630 ISELA Administration Pantoprazole Sodium 40 mg 08/07/24 17:00 08/11/24 08:27 Pantoprazole Sodium Iv 40 Mg Vial IV PUSH 40 mg QAM ISELA Administration Sodium Chloride 10 ml 08/09/24 14:00 08/11/24 06:08 Central Line Flush IV PUSH 10 ml Q8HR ISELA Administration Sodium Chloride 20 ml 08/09/24 13:29 Central Line Flush IV PUSH PRN PRN after blood draws Radiology Results: ITS Impressions Head CT 08/05/24 14:14 IMPRESSION: 1. Normal aging brain. Chest/Abdomen/Pelvis CTA 08/05/24 14:21 IMPRESSION: No pulmonary embolus. No aortic dissection. Bilateral pleural effusions (right greater than left) with adjacent compressive atelectasis on the right and adjacent consolidation on the left. Tracheostomy extends into the right mainstem bronchus, for which resizing is suggested. Hepatosplenomegaly. Significant gaseous distention of the colon with retained gastric contents. Air opacification of the colon which is also distended. Intra-abdominal ascites. Congenital persistent left-sided inferior vena cava. Moderate anasarca Cholelithiasis without cholecystitis. Carotid Doppler Study 08/09/24 06:24 Impression: Elevated velocity in the left internal carotid artery is compatible with moderate (50-69%) stenosis. Nonvisualization of left vertebral artery. Note: The methodology used is an indirect measurement validated against a direct method (such as the NASCET criteria) that compares diameters at the stenosis to the distal ICA. Abdomen X-Ray 08/09/24 14:23 IMPRESSION: 1. Nasogastric tube tip in the stomach. Chest X-Ray 08/11/24 06:33 Impression: Moderate pulmonary edema pattern with small bilateral pleural effusions. Support tubes, as above. Labs Labs: Laboratory Tests 08/11/24 05:07 08/11/24 05:07 Calcium 8.4 Magnesium 2.2 Total Bilirubin 1.2 AST 32 ALT 33 Alkaline Phosphatase 122 Total Protein 6.0 L Albumin 3.4 L
[2024-08-11 11:32] LABS: Glucose Point of Care 91 mg/dl (65-105)
--- NOTE | 2024-08-11 12:27 | PC.NURSE ---
Pt's platelet count this AM was 95. Dr Garcia notified. New order to administer 1400 dose of heparin SQ.
--- NOTE | 2024-08-11 17:30 | PC.NURSE ---
Pt transferred to [facility] room 303 via [facility]. , Dasha, notified of transfer.
--- NOTE | 2024-08-12 16:35 | PM.TDS ---
Transfer Discharge Sum: Prov Provider Date of admission: 08/07/24 17:35 Primary care physician: UNKNOWN,DOCTOR Admitting clinician: Shreyas Agudelo MD Consults: 08/07/24 Consult to Physician Routine Comment: Consulting Provider: Nahed Treviño Reason for consultation: ICU admit Has provider been notified: Yes 08/07/24 12:56 Consult to Physician Routine Comment: Consulting Provider: Bernardino Galaviz Reason for consultation: End-stage renal disease, dialysis Has provider been notified: Yes 08/08/24 10:12 Consult to Physician Routine Comment: Consulting Provider: machine scallop cutter/MD group to consult: ENT Reason for consultation: trach tube insertion, laryngectomy Has provider been notified: No DS: Admitting Diagnosis Discharge Date 08/11/24 Admitting Diagnosis Chronic respiratory failure with hypoxia, on home oxygen therapy: Tracheostomy dependent: Pre-syncope: DS: Discharge Diagnosis Discharge Diagnosis (1) End-stage renal disease on hemodialysis: Code(s): N18.6 - End stage renal disease; Z99.2 - Dependence on renal dialysis Status: Acute Transfer Discharge Sum: Med Medications Active and Home Medications: Home Medications amlodipine 10 mg tablet 10 mg PO DAILY 10/09/20 [History Confirmed 08/07/24] calcitriol 0.25 mcg capsule 0.25 mcg PO DAILY 10/09/20 [History Confirmed 08/07/24] carvedilol 12.5 mg tablet 12.5 mg PO Q12H 10/09/20 [History Confirmed 08/07/24] levothyroxine 112 mcg capsule 175 mcg PO QAM 10/09/20 [History Confirmed 08/07/24] losartan 100 mg tablet 100 mg PO DAILY 10/09/20 [History Confirmed 08/07/24] pioglitazone 30 mg tablet 30 mg PO DAILY 10/09/20 [History Confirmed 08/07/24] glimepiride 2 mg tablet 2 mg PO DAILY 05/08/23 [History Confirmed 08/07/24] pravastatin 40 mg tablet 40 mg PO DAILY 05/08/23 [History Confirmed 08/07/24] sevelamer carbonate 800 mg tablet 1,600 mg PO TIDWMEAL 08/07/24 [History Confirmed 08/07/24] Transfer Discharge Sum: Hosp Hospital Course Hospital course: Per H&P: 59-year-old male with history of laryngeal cancer status post resection, diabetes type 2 end-stage renal disease on dialysis, CHF, hyperthyroidism and hypertension presents to the hospital with lightheadedness and dizziness. Patient able to nod his head and shake back and forth for yes and no answers. Patient states that he is in no pain. His bili is more distended than normal. On 08/06/2011-patient came to the hospital his blood gas showed a pH of 7.22, pCO2 of 81.6, O2 of 80, a decision was made to place a ET tube in the patient's tracheostomy and place him on a ventilator decreased his pCO2. Patient's blood gas approval on a ventilator. The plan is to transfer the patient to have [facility] for ENT however there is a bed available at this time. The patient was being boarded in the ED however at this time he is needing dialysis and have be admitted inpatient rehab. The ICU use accepted patient in the will still transferred [facility] when a bed is available. Blood cultures are pending. Patient started on broad-spectrum antibiotics. CT of the abdomen shows Significant gaseous distention of the colon with retained gastric contents. The following med issues have been addressed during hospitalization (1) Pre-syncope: Code(s): R55 - Syncope and collapse Status: Acute Assessment and Plan: Patient presented with dizziness, presyncope as they were doing dialysis on him on 08/05/2024 -patient was hypotensive which could be due to dialysis causing presyncope/dizziness, volume depletion -patient's blood pressures are labile, initially elevated, then blood pressures dropped after hemodialysis requiring Levophed -08/05/2024: CT brain was normal 08/09 carotid Dopplers Elevated velocity in the left internal carotid artery is compatible with moderate (50-69%) stenosis. Nonvisualization of left vertebral artery. Continue telemetry monitoring Red Lead Burner recommend to transfer patient to tertiary facility for evaluation treatment (2) Hypertension: Code(s): I10 - Essential (primary) hypertension Status: Acute Assessment and Plan: Essential hypertension, will hold all antihypertensives as patient was on Levophed in the ER due to hypotension (3) Hypotension: Code(s): I95.9 - Hypotension, unspecified Status: Acute Assessment and Plan: Likely related to dialysis and fluid removal Now improved and patient off of vasopressors (4) Right-sided heart failure: Code(s): I50.810 - Right heart failure, unspecified Status: Acute Assessment and Plan: Continue dialysis for fluid removed (5) Elevated troponin: Code(s): R79.89 - Other specified abnormal findings of blood chemistry Status: Acute Assessment and Plan: Elevated troponin in the ER , plateaued x3 -likely related to end-stage renal disease, hypotension, respiratory distress (6) Hyperlipidemia: Code(s): E78.5 - Hyperlipidemia, unspecified Status: Acute Assessment and Plan: On pravastatin at home, currently will hold (7) Type 2 diabetes mellitus: Code(s): E11.9 - Type 2 diabetes mellitus without complications Status: Chronic Assessment and Plan: Sliding scale insulin Accu-Cheks (8) Hypothyroidism: Code(s): E03.9 - Hypothyroidism, unspecified Status: Acute Assessment and Plan: IV Levothyroxine (9) 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 Since we did not have ENT and at [facility] this weekend, ER physician called [facility] with the patient was accepted for ENT to insert a cuffed tracheostomy tube due to his laryngeal anatomy secondary to partial laryngectomy due to laryngeal cancer Patient waiting for transfer to [facility]. Patient needs his laryngeal tube to each change to a tracheostomy tube that can be attached to a ventilator before vent weaning weaning (10) History of partial laryngectomy: Code(s): Z90.02 - Acquired absence of larynx Status: Acute Assessment and Plan: Secondary to laryngeal CA, tracheostomy dependent (11) End-stage renal disease on hemodialysis: Code(s): N18.6 - End stage renal disease; Z99.2 - Dependence on renal dialysis Status: Acute Assessment and Plan: ESRD on hemodialysis, Friday, , Friday -nephrology following -08/07: HD with 2000 mL in fluid removed 08/09 3 L removed 08/10 patient getting dialyzed again today (12) Chronic respiratory failure with hypoxia, on home oxygen therapy: Code(s): J96.11 - Chronic respiratory failure with hypoxia; Z99.81 - Dependence on supplemental oxygen Status: Acute Assessment and Plan: Secondary to laryngeal CA, partial laryngectomy, volume overload, trach dependent obesity hypoventilation syndrome, obstructive sleep apnea given patient's body habitus Continue dialysis for fluid removal CT scan also shows areas consolidation patient is on vancomycin cefepime and azithromycin. Sputum culture is growing Haemophilus influenzae. Will discontinue vancomycin (13) Abdominal distension: Code(s): R14.0 - Abdominal distension (gaseous) Status: Acute Assessment and Plan: Abdominal distension, likely fluid and air as seen on CT abdomen and pelvis -obstructive series did not show any abdominal pathology Continue tube feeds (14) Pneumonia: Code(s): J18.9 - Pneumonia, unspecified organism Status: Acute Assessment and Plan: See above Patient was transfer to higher level hospital for evaluation treatment. Patient condition was stable before to transfer Time Spent with Patient Time attestation: Total time spent providing and/or coordinating transfer services: Exam Narrative: General: Pleasant gentleman, obese, in no acute distress HEENT:? ETT in the tracheostomy tract Neck:? Thick neck Respiratory:? Coarse breath sounds bilaterally, decreased at bases, no wheezing, adequate air entry Cardiac:? Sinus bradycardia, S1-S2 is normal Abdomen:? Soft, distended, nontender, hypoactive bowel sound Extremities:? Bilateral lower extremity chronic venous stasis change, pitting edema bilateral lower extremity, absent big toe on the right foot Neuro:? Patient is awake, alert, oriented, able to mouth words, follows simple commands in all extremities Skin:? Bilat lower extremity venous stasis changes Psych:? Normal mentation and affect DS: Data Data Completed and Pending Labs on day of discharge: Preliminary micro results at discharge 08/07/24 16:21 Blood Culture - Preliminary Blood 08/07/24 16:00 Blood Culture - Preliminary Blood
== END 2024-08-11 17:30 | disposition short-term general hospital (02) | DRG 194 ==
LOC: ANHED 19:25 → ANHICU 08-07 15:00
PROVIDERS: Emergency Medicine; Internal Medicine; Internal Medicine Nephrology; Admitting Provider Internal Medicine; Emergency Provider Physician Assistant; Visit Provider Hospitalist
DX: I13.2 Hypertensive heart and chronic kidney disease with heart failure and with stage 5 chronic kidney disease, or end stage renal disease (principal); I95.3 Hypotension of hemodialysis; N18.6 End stage renal disease; J14 Pneumonia due to Hemophilus influenzae; J96.11 Chronic respiratory failure with hypoxia; I50.810 Right heart failure, unspecified; E66.2 Morbid (severe) obesity with alveolar hypoventilation; E11.22 Type 2 diabetes mellitus with diabetic chronic kidney disease; E03.9 Hypothyroidism, unspecified; D63.1 Anemia in chronic kidney disease; E78.5 Hyperlipidemia, unspecified; E11.51 Type 2 diabetes mellitus with diabetic peripheral angiopathy without gangrene; R55 Syncope and collapse; J96.02 Acute respiratory failure with hypercapnia; Z90.02 Acquired absence of larynx; Z92.21 Personal history of antineoplastic chemotherapy; Z99.2 Dependence on renal dialysis; Z85.118 Personal history of other malignant neoplasm of bronchus and lung; Z99.81 Dependence on supplemental oxygen; Z79.84 Long term (current) use of oral hypoglycemic drugs; Z93.0 Tracheostomy status; Z20.822 Contact with and (suspected) exposure to COVID-19; Z89.411 Acquired absence of right great toe; Z87.891 Personal history of nicotine dependence; Z92.3 Personal history of irradiation
CPT/HCPCS: 31500; 36415; 36556; 36600; 70450; 71045; 71275; 74018; 74019; 74177; 80053; 80202; 81001; 82375; 82805; 82948; 83050; 83605; 83735; 83880; 84100; 84484; 85018; 85025; 85027; 85055; 85610; 85730; 86706; 87040; 87070; 87086; 87205; 87340; 87637; 87641; 93005; 93880; 94002; 94003; 96374; 96375; 99291; C1751; G0257; G0378; G0379; J0456; J0650; J0692; J1644; J1940; J2250; J2270; J2470; J3370; J7030; J7040; J7070; P9047; Q9967

== ENCOUNTER 2024-08-27 13:54 | Inpatient (IN) | payer OTHER, SELFPAY ==
[2024-08-27] VITALS (8 sets, daily range): BP systolic 117–126; BP diastolic 60–73; PULSE 77–86; RESP 12–18; TEMP 36.2–36.8; O2SAT 94–97; BMI 34.9
--- NOTE | ~2024-08-27 | XR_ITS ---
EXAMINATION: XR chest 1V portable DATE: 09/04/2024 05:49 INDICATION: Respiratory failure TECHNIQUE: frontal view of the chest was obtained. COMPARISON: Chest radiograph dated 09/03/2024 FINDINGS: Tracheostomy tube at the thoracic inlet. Increasing interstitial opacities in the bilateral mid and l ower lung zones consistent with worsening mild pulmonary edema. Small right and small to moderate-siz ed left pleural effusions which appear decreased since the prior study with associated bibasilar atel ectasis and/or pneumonia. Stable pattern of high attenuation material within the left lower lobe with appearance on CT suggesting aspirated barium with differential including calcified nodules related t o old granulomatous disease. No pneumothorax. Cardiomegaly. IMPRESSION: 1. Likely congestive heart failure with cardiomegaly and increasing mild pulmonary edema. 2. Interval decrease in now small right and small to moderate-sized left pleural effusions with assoc iated bibasilar atelectasis and/or pneumonia. Reviewed, dictated and finalized at location A. IMPRESSION: 1. Likely congestive heart failure with cardiomegaly and increasing mild pulmon bobby edema. 2. Interval decrease in now small right and small to moderate-sized left pleura l effusions with associated bibasilar atelectasis and/or pneumonia.
--- NOTE | ~2024-08-27 | CT_ITS ---
Clinical Indication: Pulmonary embolus CT Scan of the Chest with Contrast: Technique: Contiguous sections were acquired throughout the chest after intravenous administration of 100 cc of Omnipaque 350. Dose reduction technique was used on this scan by utilizing automated expos ure control and iterative reconstruction technique. The dose-length product (DLP) was 1022.46 mGy-cm. COMPARISON: 08/05/2024 Findings: There is no evidence of any significant mediastinal, hilar or axillary lymphadenopathy. There is no f illing defect in the pulmonary arterial tree to suggest pulmonary embolus. Main pulmonary artery davey ures 4.1 cm in diameter. There is no evidence of aortic dissection or aneurysm. Cardiomegaly noted. N o pericardial effusion. Moderate right pleural effusion present. Small left pleural effusion present.. There is bibasilar atelectatic change and minimal groundglass pulmonary edema in the aerated lungs.. Images through the upper abdomen reveal no abnormalities. Impression: No evidence of pulmonary embolus, aortic dissection, or aortic aneurysm. Moderate right pleural effusion and small left pleural effusion. Bibasilar atelectasis and mild pulmonary edema. Reviewed, dictated and finalized at location . Impression: No evidence of pulmonary embolus, aortic dissection, or aortic aneurysm. Moderate right pleural effusion and small left pleural effusion. Bibasilar atelectasis and mild pulmonary edema.
--- NOTE | ~2024-08-27 | US_ITS ---
EXAMINATION: US venous doppler [facility] DATE: 08/30/2024 10:00 INDICATION: Bilateral lower limb swelling and erythema TECHNIQUE: Grayscale ultrasound images without and with compression and Doppler ultrasound images of the bilateral lower extremity veins were obtained. COMPARISON: 05/10/2022 FINDINGS: The visualized portions of right common femoral vein, profunda (deep) femoral vein, femoral vein, pop liteal vein, posterior tibial veins, gastrocnemius vein, lesser saphenous vein and greater saphenous vein outflow are patent. Noncompressible deep venous thrombosis in the right peroneal veins. The visualized portions of left common femoral vein, profunda femoral vein, femoral vein, popliteal v ein, posterior tibial veins, gastrocnemius vein, lesser saphenous vein and greater saphenous vein out flow are patent. Noncompressible deep venous anastomosis in one of the left peroneal veins. IMPRESSION: 1. Bilateral below the knee deep venous thrombosis in the peroneal veins. Findings were discussed wi windy Macedo, the nurse caring for the patient, at 10:49 AM. Reviewed, dictated and finalized at location B. IMPRESSION: 1. Bilateral below the knee deep venous thrombosis in the peroneal veins. Find ings were discussed with Annabel Macedo, the nurse caring for the patient, at 10: 49 AM.
--- NOTE | ~2024-08-27 | XR_ITS ---
Portable chest x-ray Comparison: 08/31/2024 Clinical History: Respiratory failure Findings: Tracheostomy cannula and NG tube are in place. Moderate bilateral pleural effusions are pr esent with mild pulmonary edema pattern. Cardiomediastinal silhouette is stable. Bones and soft tiss ues are unremarkable. Impression: Moderate pleural effusions with mild pulmonary edema pattern. Stable hyperdense material the left lung base raises the possibility of prior aspiration. Support tubes, as above. Reviewed, dictated and finalized at location M. Impression: Moderate pleural effusions with mild pulmonary edema pattern. Stable hyperdense material the left lung base raises the possibility of prior a spiration. Support tubes, as above.
--- NOTE | ~2024-08-27 | US_ITS ---
EXAMINATION:US venous doppler LE BI INDICATION:Bilateral DVTs. TECHNIQUE: Multiple grayscale, color flow and Doppler images of the right and left lower extremity de ep venous systems were obtained and reviewed. COMPARISON:Ultrasound dated 08/30/2024 FINDINGS: The common femoral, superficial femoral and popliteal veins demonstrate normal respiratory variation, augmentation and compressibility. Color flow is also seen within the posterior tibial, pe roneal, greater saphenous and profunda veins. Interval resolution of deep venous thrombosis in the pe roneal veins. IMPRESSION: 1: No lower extremity deep venous thrombosis. Reviewed, dictated and finalized at location A.
--- NOTE | ~2024-08-27 | XR_ITS ---
XR abdomen gastric tube rechec INDICATION: Evaluate NG tube position. TECHNIQUE: Limited KUB perform for evaluating NG tube . COMPARISON: 08/30/2024 FINDINGS: NG tube is coiled in the stomach with a coiled near the gastroesophageal junction.. Visual ized bowel gas pattern is nonspecific. IMPRESSION: 1: NG tube coiled in the stomach. Reviewed, dictated and finalized at location A.
--- NOTE | ~2024-08-27 | XR_ITS ---
EXAMINATION: XR chest 1V portable DATE: 08/28/2024 07:22 INDICATION: Chronic respiratory failure. TECHNIQUE: A single frontal view of the chest was obtained. COMPARISON: Chest view 08/11/2024, chest CT 08/05/2024 FINDINGS: There are airspace opacities in right lower lung zone and left mid and lower lung zones. Th ere are small pleural effusions. No pneumothorax. Cardiomegaly is noted. There is a tracheostomy tube in expected position. IMPRESSION: 1. Airspace opacities in right lower lung zone and left mid and lower lung zones with worsening on th e left, consistent with atelectasis versus pneumonia. 2. Small pleural effusions. 3. Cardiomegaly. Reviewed, dictated and finalized at location A. IMPRESSION: 1. Airspace opacities in right lower lung zone and left mid and lower lung zone s with worsening on the left, consistent with atelectasis versus pneumonia. 2. Small pleural effusions. 3. Cardiomegaly.
--- NOTE | ~2024-08-27 | XR_ITS ---
Portable chest x-ray Comparison: 09/05/2024 Clinical History: Respiratory failure Findings: Tracheostomy cannula present. Moderate right pleural effusion and small left pleural effus ion present. There is mild to moderate pulmonary edema pattern. Cardiomediastinal silhouette is stab le. Bones and soft tissues are unremarkable. Impression: Moderate right pleural effusion and small left pleural effusion, with mild to moderate pulmonary arnoldo a pattern. Tracheostomy cannula. Reviewed, dictated and finalized at location M. Impression: Moderate right pleural effusion and small left pleural effusion, with mild to m oderate pulmonary edema pattern. Tracheostomy cannula.
--- NOTE | ~2024-08-27 | XR_ITS ---
XR abdomen gastric tube insert INDICATION: Evaluate NG tube position. TECHNIQUE: Limited KUB perform for evaluating NG tube . COMPARISON: 08/09/2024 FINDINGS: NG tube tip in the stomach. Visualized bowel gas pattern is nonspecific.There are pleural effusions with bibasilar airspace disease, incompletely visualized. IMPRESSION: 1: NG tube tip in the stomach. Reviewed, dictated and finalized at location A.
--- NOTE | ~2024-08-27 | XR_ITS ---
EXAMINATION: XR chest 1V portable Exam Date/Time: 08/29/2024 14:10 CDT HISTORY: patient unresponsive Comparison: 08/28/2024. RESULT: Lines, tubes, and devices: Tracheostomy tube. Lungs and pleura: Low lung volumes, decreased since the prior study. Near-complete opacification in the left hemithorax, also worsening. Moderate bilateral costophrenic angle blunting. Cardiomediastinal silhouette: Mostly obscured, grossly stable. Other: No acute osseous or upper abdominal finding. IMPRESSION: Near-complete left hemithorax opacification. Decreasing bilateral lung aeration, particularly on the left. Moderate bilateral pleural effusions. Reviewed, dictated and finalized at location K. IMPRESSION: Near-complete left hemithorax opacification. Decreasing bilateral lung aeration , particularly on the left. Moderate bilateral pleural effusions.
--- NOTE | ~2024-08-27 | XR_ITS ---
EXAMINATION: XR chest 1V portable Exam Date/Time: 08/29/2024 14:38 CDT HISTORY: INTUBATION Comparison: Same date at 2:12 PM. FINDINGS/IMPRESSION: New endotracheal tube, terminating 8 mm above the jia, consider 3 cm retraction. Improving bilateral aeration. Persistent patchy bilateral mid and lower lung airspace disease, worse in the left lung, and moderate effusions. Reviewed, dictated and finalized at location K.
--- NOTE | ~2024-08-27 | XR_ITS ---
CHEST RADIOGRAPH CLINICAL HISTORY: evaluate for pneumonia, AMS . COMPARISON: Plain film evaluation of the chest performed 8 hours earlier. TECHNIQUE: Single portable view of the chest. FINDINGS Increasing bilateral pleural effusions when compared with earlier examination, now with near complete opacification of the left hemithorax, aeration of the right upper lobe only. Increased interstitial markings are identified bilaterally, findings suggesting moderate pulmonary va scular congestion. Dense opacification of the bilateral lung bases for which bilateral infiltrates are suspected. IMPRESSION: Multifocal pneumonia, moderate pulmonary vascular congestion with increasing bilateral pleural effusi ons and near complete opacification of the left hemithorax with aeration of the right upper lobe only . Reviewed, dictated and finalized at location A. IMPRESSION: Multifocal pneumonia, moderate pulmonary vascular congestion with increasing bi lateral pleural effusions and near complete opacification of the left hemithora x with aeration of the right upper lobe only.
--- NOTE | ~2024-08-27 | XR_ITS ---
XR chest 1V portable Ordering provider: Kali Garcia MD History: 59 years Male with . Resp Failure . Comparison: September 04, 2024 FINDINGS: MEDIASTINUM: The cardiac silhouette is slightly enlarged. Tracheostomy tube is unchanged. Congestive jessica. LUNGS: No pneumothorax. Bilateral basal opacification more on the left side suggestive of pneumonia v ersus atelectasis with bilateral pleural effusion. Bilateral interstitial thickening suggestive of ed angelo versus pneumonitis. OTHER: No free air under the diaphragm. IMPRESSION: No significant change from previous examination. Reviewed, dictated and finalized at location A.
--- NOTE | ~2024-08-27 | XR_ITS ---
XR chest 1V portable 08/31/2024 09:37 Indication: Respiratory failure Procedure: AP portable chest Comparison: Comparison to multiple prior studies sequentially, with oldest reviewed study dated 08/28. Findings: Cardiomegaly with pulmonary edema. Small pleural effusions. No pneumothorax. Tracheostomy t ube present. NG tube passes into the stomach. There is a focal right apical opacity which overlies th e first costochondral junction which may represent sclerosis at the junction or underlying parenchyma l nodule. Consider correlation with CT chest to exclude underlying parenchymal abnormality. Impression: 1: Cardiomegaly with persistent pulmonary edema and pleural effusions. 2: Focal right apical opacity which overlies the first costochondral junction which may represent scl erosis at the junction or underlying parenchymal nodule. Consider correlation with CT chest to exclud e underlying parenchymal abnormality. Reviewed, dictated and finalized at location A. Impression: 1: Cardiomegaly with persistent pulmonary edema and pleural effusions. 2: Focal right apical opacity which overlies the first costochondral junction w hich may represent sclerosis at the junction or underlying parenchymal nodule. Consider correlation with CT chest to exclude underlying parenchymal abnormalit y.
--- NOTE | 2024-08-27 14:14 | ECG_ITS ---
Test Date: 2024-08-27 14:17:35 Measurements Intervals [place] Rate: 76 P: 48 IN: 238 QRS: 122 QRSD: 126 T: -10 QT: 447 QTc: 504 Interpretive Statements SINUS RHYTHM WITH FIRST DEGREE AV BLOCK POSSIBLE RIGHT VENTRICULAR HYPERTROPHY [SOME/ALL OF: PROMINENT R IN V1, LATE TRANSITION, RAD, MIROSLAVA, SSS] POSSIBLE ANTERIOR MYOCARDIAL INFARCTION , PROBABLY OLD [30 ms Q WAVE IN V3/V4, OR R < 0.2 mV IN V4] NONSPECIFIC T-WAVE ABNORMALITY ABNORMAL ECG Electronically Signed On 08-28-2024 09:52:35 CDT by Desmond Mcpherson M.D.
--- OUTSIDE RECORDS SUMMARY | 2024-08-27 14:21 | XMS_ITS | Encounter Summary ---
Author Organization [facility] Healthcare Address [address] [place] [address] Care Team Providers Care Cut Filer Name Role Phone Bronwyn Guardado Unavailable [phone] Kenny Pedro MD Unavailable [phone] Ricardo Pritchard MD Unavailable [phone] Naila Teague Primary Care Provider + Telly Freedman MD Unavailable + Danish Leo MD Unavailable [phone] Braden Griffin MD Unavailable [phone] Isaiah Davis MD Unavailable [phone] Aurelio Stovall MD Unavailable [phone] Parvez Hemphill MD Unavailable [phone] Nel Lamb RN Unavailable Encounter Details Date Type Department Care Team (Late st Contact Info) Description 01/20/2024 [facility] [address] [facility] [address] [place] [address] Olaf Paiz MD [address] [facility] [address] [place] [address] Social History Tobacco Use Types Packs/Day Years [...] any clubs o r organizations such as samaritan groups, unions, fraternal or athletic groups, or [...] on filedocumented in this encounter Care Teams Cut Filer Relationship Specialty Start Date End Date Naila Teague PA [address] [facility] [address] [place] [address] PCP - General Physician Veterinary Dentist 03/15/22 Bronwyn Guardado Au.D. Electric Car Operator Audiology 11/11/17 Kenny Pedro MD [address] [facility] [address] [place] [address] Radiation Oncologist Radiation Oncology 12/23/17 Ricardo Pritchard MD [address] [facility] [address] [place] [address] Medical Oncologist/Finger Buff Sewer Medical Oncology 12/23/17 Telly Freedman MD [address] [place] [address] Referring Physician Family Medicine 06/17/22 Danish Leo MD [address] [place] [address] Consulting Physician Otolaryngology 10/12/22 Braden Griffin MD [address] [place], [place] [id number] Consulting Physician Cardiology 01/13/24 Isaiah Davis MD [address] [facility] [address] [place] [address] Consulting Physician Nephrology 01/13/24 Aurelio Stovall MD [address] [address] Consulting Physician Pulmonary Disease 01/13/24 Parvez Hemphill MD [facility] [address] [place], [place] [id number] Referring Physician Otolaryngology 01/13/24 Nel Lamb, RN [address] [facility] [address] [place] [address] Mineral Mixer 04/16/24 documented as of this encounter
--- OUTSIDE RECORDS SUMMARY | 2024-08-27 14:21 | XMS_ITS | Encounter Summary ---
Author Organization [facility] Address [facility]ly [facility] [place] [address] Care Team Providers Care Manager Advertising Name Role Phone Theodore Martin MD Primary Care Provider [phone] Vince Green MD Unavailable Aleskandar Link MD Primary Care Provider Unavailable Theodore Martin MD Primary Care Provider [phone] Encounter Details Date Type Department Care Team (Late st Contact Info) Description 07/24/2016 Abstract [facility] AT [address] [address] Reese Azar MA Social History Tobacco Use Types Packs/Day Years Used Date Smoking Tobacco: Every Day Cigarettes 1 30 Smokeless Tobacco: Never Alcohol Use Standard Drinks/Week Comments No 0 (1 standard drink = 0.6 oz pur e alcohol) Sex and Gender Information Value Date Recorded Sex Assigned at Not on file 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
--- OUTSIDE RECORDS SUMMARY | 2024-08-27 14:21 | XMS_ITS | Encounter Summary ---
Author Organization [facility] Address [address] [place] [address] Phone Care Team Providers Care Nurse Coordinator Name Role Phone Theodore Martin MD Primary Care Provider [phone] Bronwyn Guardado Unavailable [phone] Kenny Pedro MD Unavailable [phone] Ricardo Pritchard MD Unavailable [phone] Kenzie Cabrera MD Primary Care Provider [phone] Naila Teague Primary Care Provider + Telly Freedman MD Unavailable + Danish Leo MD Unavailable [phone] Braden Griffin MD Unavailable [phone] Isaiah Davis MD Unavailable [phone] Aurelio Stovall MD Unavailable [phone] Parvez Hemphill MD Unavailable [phone] Nel Lamb RN Unavailable Encounter Details Date Type Department Care Team (Late st Contact Info) Description 03/18/[address] [facility] ProviderHossein MD [address] [place] [address] Social History Tobacco Use Types Packs/Day Years [...] COVID: Suspected 06/06/2022 06/06/2022 06/07/2022 12:48 AM SIGN ARTIST documented as of this encounter Care Teams Nurse Coordinator Relationship Specialty Start Date End Date Theodore Martin MD PCP - General 09/09/16 09/18/20 Kenzie Cabrera MD [address] [place] [address] PCP - General Family Medicine 09/19/20 03/14/22 Naila Teague PA [address] [facility] [address] [place] [address] PCP - General Physician Web Communications Specialist 03/15/22 Bronwyn Guardado Au.D. Speech Pathologist Assistant Audiology 11/11/17 Kenny Pedro MD 49[address] [facility] [address] LL LL [address] [place] [address] Radiation Oncologist Radiation Oncology 12/23/17 Ricardo Pritchard MD 49[address] [facility] [address]C [address] [place] [address] Medical Oncologist/Procurement Agent Medical Oncology 12/23/17 Telly Freedman MD [address]30 [place] [address] Referring Physician Family Medicine 06/17/22 Danish Leo MD [address]30 [place] [address] Consulting Physician Otolaryngology 10/12/22 Braden Griffin MD [address] [id number] Consulting Physician Cardiology 01/13/24 Isaiah Davis MD 5003 [facility] 1 [place] [address] Consulting Physician Nephrology 01/13/24 Aurelio Stovall MD [facility] [address] Consulting Physician Pulmonary Disease 01/13/24 Parvez Hemphill MD [address] [place] [address] Referring Physician Otolaryngology 01/13/24 Nel Lamb RN 45[address] [facility] [address] [place] [address] Denitrator 04/16/24 documented as of this encounter
--- OUTSIDE RECORDS SUMMARY | 2024-08-27 14:21 | XMS_ITS | Clinical Summary ---
Author Organization [facility] Address 1 [place] [address] Care Team Providers Care Radiagraph Operator Name Role Phone Bronwyn Guardado Unavailable [phone] Kenny Pedro MD Unavailable [phone] Ricardo Pritchard MD Unavailable [phone] Naila Teague Primary Care Provider + Telly Freedman MD Unavailable + Danish Leo MD Unavailable [phone] Braden Griffin MD Unavailable [phone] Isaiah Davis MD Unavailable [phone] Aurelio Stovall MD Unavailable [phone] Parvez Hemphill MD Unavailable [phone] Nel Lamb RN Unavailable Allergies No known [...] (06/10/2022): Added automatically from request for surgery [id number] Hyperlipidemia 02/20/2022 Hyperkalemia 02/12/2022 Cardiomegaly 01/17/2022 Hypothyroidism [...] Date Resolved Date Encounter for follow-up surv [facility] [place] of tongue cancer 12/23/2017 12/23/2017 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 Encounters Date Type Department Care Team Description 05/31/2024 8:49 AM BELT CLEANER - 05/31/2024 11:59 PM BELT CLEANER Hospital Encounter [facility] [place] [address] ESRD (end stage renal disease) on dialysis (HCC) (Primary Dx) Discharge Disposition: Discharge to home or self care from Last 3 Months Surgical History Surgery Date Site/Laterality Comments GA LARYNGOSCOPY W/WO TRACHEO SCOPY ASPIRATION Direct Laryngoscopy [...] often do you attend chur ch or amish services? Never 06/07/2022 Do you belong to any clubs o r organizations such as yarsanism groups, unions, fraternal or athletic groups, or [...] Comments Blood Pressure 148/82 05/31/2024 10:35 AM BELT CLEANER Pulse 76 05/31/2024 10:35 AM BELT CLEANER Temperature 36.7 C (98.1 F) 02/26/2024 12:33 PM CDT Respiratory Rate 18 05/31/2024 10:35 AM BELT CLEANER Oxygen Saturation 96% 05/31/2024 10:35 AM BELT CLEANER Inhaled Oxygen Concentration - - Weight 95 kg (209 lb 7 oz) 04/16/2024 7:48 AM CS T Height 165.1 cm (5' 5 ) 04/16/2024 7:48 AM BELT CLEANER Body Mass Index 34.85 04/16/2024 7:48 AM BELT CLEANER Plan of Treatment Health Maintenance Due Date [...] A1C 05/22/2023 11/20/2022 Lipid Panel 11/21/2023 11/20/2022, 0812/2021, 09/07/2016, Additional history exists Influenza Vaccine (#1) 2024 9, 02/18/2018, 03/26/2017 eGFR 02/23/2025 02/24/2024, 08/11/2023, 07/28/2023, Additional history exists DTaP/Tdap/Td Vaccine (2 - Td or Tdap) 12/12/2032 12/12/2022 Hepatitis C Screening Completed 11/20/2022 Medical Devices Implanted Type Area Java Groovy Developer Device Identifier Shelf Expiration Date Model / Serial / Lot Perma Cath Left: Chest Tracheostomy Throat [employer] Actifi 6 Cartridge Ligate Triangulate Cross Section Heart [id number] - Sn/A - [id number] Implanted:Qty: 5 on 11/20/2022 by Parvez Hemphill MD at [facility] N/A: Larynx [employer] [id number] 07/30/2026 [id number] / N/A / [id number] [employer] Kutoto Horizon Ligate Triangulate Cross Section Wire Small Wide Latex Free [id number] - Sn/A - [id number] Implanted:Qty: 5 on 11/20/2022 by Parvez Hemphill MD at [facility] N/A: Larynx [employer] [id number] 03/04/[id number] / N/A / [id number] [employer] Provox; Larytube; Xtraflow Od15 Mm; Id12 Mm L55 Mm 5 Cassette 10; 7611 - Sn/A - [id number] Implanted:Qty: 1 on 11/20/2022 by Dipti Johnson MD at [facility] N/A: Throat [employer] 12/30/2024 7611 / N/A / [id number] Procedures Procedure Name Priority Date/Time Associated Diagnosis [...] JARVIS LAB BLOOD ORDERABLES Final Result MICHAEL [address] [facility] Department [place] [address] * Hemoglobin A1c (11/20/2022 10:01 PM CDT) Pathologist [facility] Hgb A1C 4.9 4.0 - 5.6 % [facility] Estimated Average Glucose 94 mg/dL [facility] Comment: The ADA recommends reporting an estimated Average Glucose (eAG) with all Hemoglobin A1c results using the equation derived from a study of 507 normal and diabetic adults. Minority populations were underrepresented and children were not included. (Diabetes Care 2020; 43(S1): S66-S76). The eAG is not equivalent to a fasting glucose. Blood 11/20/2022 10:0 1 PM CDT 11/20/2022 10:31 PM CDT us Parvez Hemphill MD LAB BLOOD ORDERABLES Final Result MICHAEL [facility] Department [place] [address] * Lipid panel (11/20/2022 10:01 PM CDT) Cholesterol 182 30 - 199 mg/dL [facility] Comment: Interpretive Data Ages < or = [...] on 2018. Triglycerides 106 <=149 mg/dL [facility] Comment: Interpretive Data Ages < or = [...] on 2018. HDL 60 >=40 mg/dL [facility] Comment: Interpretive Data Ages < or [...] 1 PM CDT 11/20/2022 10:18 PM CDT Parvez Hemphill MD LAB BLOOD ORDERABLES Final Result [facility] Department [place] [address] * Hepatitis C antibody (11/20/2022 2:36 PM CDT) Hep C Ab Nonreactive Nonreactive [facility] Comment:Antibodies to HCV no t detected. Does NOT exclude the possibility of recent exposure to HCV. Current interpretive data was last revised on 22 Blood 11/20/2022 2:36 PM CDT 11/20/2022 3:14 PM CDT Ale Moreau MD LAB MICROBIOLOGY - GENERAL ORDER RENATE Final Result MICHAEL [facility] Department [place] [address] from Last 3 Months or Most Recently Relevant to Health Maintenance Insurance [facility] Advance Directives For more information, please contact: [phone] * Full Code (Latest Code Status on File) Date Activated Date Inactivated Comments 11/20/2022 5:48 PM 11/25/2022 8:48 PM * Full Code Date Activated Date Inactivated Comments 06/06/2022 10:43 PM 06/27/2022 9:42 PM Care Teams Radiagraph Operator Relationship Specialty Start Date End Date Naila Teague PA [address] [facility] [address] [place] [address] PCP - General Physician Home Service Director 03/15/22 Bronwyn Guardado Au.D. Judicial Clerk Audiology 11/11/17 Kenny Pedro MD 4921 [facility] # LL LL [address] [place] [address] Radiation Oncologist Radiation Oncology 12/23/17 Ricardo Pritchard MD 49[address] [facility] [address] [place] [address] Medical Oncologist/Keeler Polygraph Operator Medical Oncology 12/23/17 Telly Freedman MD [address] [place] [address] Referring Physician Family Medicine 06/17/22 Danish Leo MD [address] [place] [address] Consulting Physician Otolaryngology 10/12/22 Braden Griffin MD 68[address] [facility] [address] [address] Consulting Physician Cardiology 01/13/24 Isaiah Davis MD [address] [facility] 1 [place] [address] Consulting Physician Nephrology 01/13/24 Aurelio Stovall MD 1418 [facility] 350 [place] [address] Consulting Physician Pulmonary Disease 01/13/24 Parvez Hemphill MD [address] [facility] [address] [place] [address] Referring Physician Otolaryngology 01/13/24 Nel Lamb, RN 45[address] [facility] [address] [place] [address] Mask Designer 04/16/24
--- OUTSIDE RECORDS SUMMARY | 2024-08-27 14:21 | XMS_ITS | Encounter Summary ---
Author Organization [facility] Address [address] [place] [address] Care Team Providers Care Surveillance Analyst Name Role Phone Bronwyn Guardado Unavailable [phone] Kenny Pedro MD Unavailable [phone] Ricardo Pritchard MD Unavailable [phone] Naila Teague Primary Care Provider + Telly Freedman MD Unavailable + Danish Leo MD Unavailable [phone] Braden Griffin MD Unavailable [phone] Isaiah Davis MD Unavailable [phone] Aurelio Stovall MD Unavailable [phone] Parvez Hemphill MD Unavailable [phone] Nel Lamb RN Unavailable Encounter Details Date Type Department Care Team (Late st Contact Info) Description 07/28/2023 [facility]phone [facility] at [facility] [address] [facility] [address] [place] [address] Olaf Paiz MD [address] [facility] [address] [place] [address] Social History Tobacco Use Types Packs/Day Years [...] often do you attend chur ch or presybeterian services? Never 06/07/2022 Do you belong to any clubs o r organizations such as quaker groups, unions, fraternal or athletic groups, or [...] on filedocumented in this encounter Care Teams Surveillance Analyst Relationship Specialty Start Date End Date Naila Teague PA 49[address] [facility] SOM [address] [place] [address] PCP - General Physician Locomotive Engineer 03/15/22 Bronwyn Guardado Au.D. Temperature Control Inspector Audiology 11/11/17 Kenny Pedro MD 4921 [facility] # LL LL [address] [place] [address] Radiation Oncologist Radiation Oncology 12/23/17 Ricardo Prithcard MD 4921 [facility] [address]C [address] [place] [address] Medical Oncologist/University Counselor Medical Oncology 12/23/17 Telly Freedman MD [address] [place] [address] Referring Physician Family Medicine 06/17/22 Danish Leo MD [address] [place] [address] Consulting Physician Otolaryngology 10/12/22 Braden Griffin MD [address] [place], [place] [address] Consulting Physician Cardiology 01/13/24 Isaiah Davis MD [address] [facility] 1 [place] [address] Consulting Physician Nephrology 01/13/24 Aurelio Stovall MD [address] [address] Consulting Physician Pulmonary Disease 01/13/24 Parvez Hemphill MD [facility] [address] [place], [place] [address] Referring Physician Otolaryngology 01/13/24 Nel Lamb, RN 4590 [facility] [address] [place] [address] Acid Maker 04/16/24 documented as of this encounter
--- OUTSIDE RECORDS SUMMARY | 2024-08-27 14:21 | XMS_ITS | Referral Summary ---
Author Organization [facility] Address 1 [place] [address] Care Team Providers Care Physician Practice Administrator Name Role Phone Bronwyn Guardado Unavailable [phone] Kenny Pedro MD Unavailable [phone] Ricardo Pritchard MD Unavailable [phone] Naila Teague Primary Care Provider + Telly Freedman MD Unavailable + Danish Leo MD Unavailable [phone] Braden Griffin MD Unavailable [phone] Isaiah Davis MD Unavailable [phone] Aurelio Stovall MD Unavailable [phone] Parvez Hemphill MD Unavailable [phone] Nel Lamb RN Unavailable Encounters Date Type Department Care Team Description 05/31/2024 8:49 AM SPORTS CLERK - 05/31/2024 11:59 PM SPORTS CLERK Hospital Encounter [facility] Dialysis Access Center at [address] [address] ESRD (end stage renal disease) on dialysis (HCC) (Primary Dx) Discharge Disposition: Discharge to home or self care from Last 3 Months Allergies No known [...] (06/10/2022): Added automatically from request for surgery [id number] Hyperlipidemia 02/20/2022 Hyperkalemia 02/12/2022 Cardiomegaly 01/17/2022 Hypothyroidism [...] Date Smoking Tobacco: Former Cigarettes Q uit: 2014 Passive Smoke Exposure: Current Smokeless Tobacco: Never [...] often do you attend chur ch or zoroastrian services? Never 06/07/2022 Do you belong to any clubs o r organizations such as sabianism groups, unions, fraternal or athletic groups, or [...] Comments Blood Pressure 148/82 05/31/2024 10:35 AM SPORTS CLERK Pulse 76 05/31/2024 10:35 AM SPORTS CLERK Temperature 36.7 C (98.1 F) 02/26/2024 12:33 PM CDT Respiratory Rate 18 05/31/2024 10:35 AM SPORTS CLERK Oxygen Saturation 96% 05/31/2024 10:35 AM SPORTS CLERK Inhaled Oxygen Concentration - - Weight 95 kg (209 lb 7 oz) 04/16/2024 7:48 AM CS T Height 165.1 cm (5' 5 ) 04/16/2024 7:48 AM SPORTS CLERK Body Mass Index 34.85 04/16/2024 7:48 AM SPORTS CLERK Plan of Treatment Not on file Medical Devices Implanted Type Area Blind Slat Stapling Machine Operator Device Identifier Shelf Expiration Date Model / Serial / Lot Perma Cath Left: Chest Tracheostomy Throat [employer] Horizon 6 Cartridge Ligate Triangulate Cross Section Heart [id number] - Sn/A - [id number] Implanted:Qty: 5 on 11/20/2022 by Parvez Hemphill MD at [facility] N/A: Larynx [employer] Inc [id number] 07/30/2026 [id number] / N/A / [id number] [employer] Weck Horizon Ligate Triangulate Cross Section Wire Small Wide Latex Free [id number] - Sn/A - [id number] Implanted:Qty: 5 on 11/20/2022 by Parvez Hemphill MD at [facility] N/A: Larynx [employer] [id number] 03/04/2027 / N/A / [id number] [employer] Provox; Larytube; Xtraflow Od15 Mm; Id12 Mm L55 Mm 5 Cassette 10; 7611 - Sn/A - [id number] Implanted:Qty: 1 on 11/20/2022 by Dipti Johnson MD at [facility] N/A: Throat [employer] 12/30/202411 / N/A / [id number] Procedures Procedure Name Priority Date/Time Associated Diagnosis [...] BLOOD ORDERABLES Final Result Performing Organization Address City/[facility]/ZIP Co de Phone Number [facility] [address] [facility] [place] [address] * Hemoglobin A1c (11/20/2022 10:01 PM CDT) Hgb A1C 4.9 4.0 - 5.6 % [facility] Estimated Average Glucose 94 mg/dL [facility] Comment: The ADA recommends reporting [...] Hemphill MD LAB BLOOD ORDERABLES Final Result [facility] One [facility] Department [place] [address] * Lipid panel (11/20/2022 10:01 PM CDT) Cholesterol 182 30 - 199 mg/dL [facility] Comment: Interpretive Data Ages < [...] revised on 2018. Triglycerides 106 <=149 mg/dL [facility] Comment: Interpretive Data Ages < [...] revised on 2018. HDL 60 >=40 mg/dL [facility] Comment: Interpretive Data Ages < [...] on 2018. LDL, calculated 101 <=129 mg/dL [facility] Comment: Interpretive Data Ages < [...] revised on 2018. Non-HDL Cholesterol 122 mg/dL [facility] Comment: Interpretive Data Ages < [...] last revised on 2018. Chol/HDL ratio 3 [facility] Blood 11/20/2022 10:0 1 PM CDT 11/20/2022 10:18 PM CDT Parvez Hemphill MD LAB BLOOD ORDERABLES Final Result Performing Organization Address City/[facility]/ZIP Co de Phone Number [facility] One [facility] [place] [address] * Hepatitis C antibody (11/20/2022 2:36 PM CDT) Hep C Ab Nonreactive Nonreactive [facility] Comment:Antibodies to HCV no t detected. Does NOT exclude the possibility of recent exposure to HCV. Current interpretive data was last revised on 22 Blood 11/20/2022 2:36 PM CDT 11/20/2022 3:14 PM CDT Ale Moreau MD LAB MICROBIOLOGY - GENERAL ORDER RENATE Final Result [facility] One [facility] Department [place] [address] from Last 3 Months or Most Recently Relevant to Health Maintenance Insurance [facility] [id number] Advance Directives For more information, please contact: [phone] * Full Code (Latest Code Status on File) Date Activated Date Inactivated Comments 11/20/2022 5:48 PM 11/25/2022 8:48 PM * Full Code Date Activated Date Inactivated Comments 06/06/2022 10:43 PM 06/27/2022 9:42 PM Care Teams Physician Practice Administrator Relationship Specialty Start Date End Date Naila Teague PA 49[address] [facility] [address] [place] [address] PCP - General Physician Retort Condenser Attendant 03/15/22 Bronwyn Guardado Au.D. Improvement Advisor Audiology 11/11/17 Kenny Pedro MD 4921 [facility] # LL LL [address] [place] [address] Radiation Oncologist Radiation Oncology 12/23/17 Ricardo Pritchard MD 4921 [facility] [address] [place] [address] Medical Oncologist/Oil Refiner Medical Oncology 12/23/17 Telly Freedman MD [address] [place] [address] Referring Physician Family Medicine 06/17/22 Danish Leo MD [address] [place] [address] Consulting Physician Otolaryngology 10/12/22 Braden Griffin MD [address] [id number] Consulting Physician Cardiology 01/13/24 Isaiah Davis MD [address] [address] Consulting Physician Nephrology 01/13/24 Aurelio Stovall MD [address] [place] [address] [address] [place] [address] Consulting Physician Pulmonary Disease 01/13/24 Parvez Hemphill MD [address] [place], [place] [address] Referring Physician Otolaryngology 01/13/24 Nel Lamb, RN 4590 [facility] [address]01 [place] [address] Delivery Clerk 04/16/24
--- OUTSIDE RECORDS SUMMARY | 2024-08-27 14:21 | XMS_ITS | Clinical Summary ---
Author Organization [facility] Address [address] [place] [address] Care Team Providers Care Social Work Therapist Name Role Phone Vince Green MD Unavailable Theodore Martin MD Primary Care Provider [phone] Allergies No known active allergies Medications metFORMIN [...] pain 09/22/2016 Essential hypertension Dyslipidemia Diabetes mellitus ([facility]) Family History Medical History Relation Comments Stroke Brother 1 [place] Brother 2 Open Heart Brother 2 Stroke Brother 2 diabetes mellitus Other [place] Sister 1 Open Heart Sister 1 Stroke [...] on file Legal Sex Male 11:01 AM FINANCIAL SERVICES CONSULTANT Gender Identity Not on file Sexual Orientation Not on file Last Filed Vital Signs Vital Sign Reading Time Taken Comments Blood Pressure 128/82 07/23/2016 12:36 PM FINANCIAL SERVICES CONSULTANT Pulse 80 07/23/2016 12:36 PM FINANCIAL SERVICES CONSULTANT Temperature - - Respiratory Rate - - Oxygen Saturation 96% 07/23/2016 12:36 PM FINANCIAL SERVICES CONSULTANT Inhaled Oxygen Concentration - - Weight 109.3 kg (241 lb) 07/23/2016 12:36 PM FINANCIAL SERVICES CONSULTANT Height 175.3 cm (5' 9 ) 07/23/2016 12:36 PM FINANCIAL SERVICES CONSULTANT Body Mass Index 35.59 07/23/2016 12:36 PM FINANCIAL SERVICES CONSULTANT Plan of Treatment Health Maintenance Due Date [...] Recently Relevant to Health Maintenance Care Teams Social Work Therapist Relationship Specialty Start Date End Date Theodore Martin MD [address] [facility] 3 [place] [address] PCP - General 01/14/17 Vince Green MD [id number] [place] [address] [place] Data Entry Operator CARDIOVASCULAR DISEASE 11/01/15
[2024-08-27 14:22] LABS: Basophils Absolute Auto 0.1 K/mm3 (0.0-0.1); Basophils Percent Auto 1.7 % (0.2-1.2); Eosinophils Absolute Auto 0.2 K/mm3 (0-0.3); Hematocrit 37.9 % (42.0-52.0); Hemoglobin 11.6 g/dL (14.0-18.0); Immature Granulocyte Absolute 0.02 K/mm3 (0.00-0.031); Immature Granulocyte Percent A 0.5 % (0-0.5); Immature Platelet Fraction Pct 6.5 % (0.9-11.2); Lymphocytes Absolute Auto 0.51 K/mm3 (0.9-3.2); Lymphocytes Percent Auto 12.7 % (18.3-44.2); Mean Corpuscular HGB Conc 30.6 g/dl (32-36); Mean Corpuscular Hemoglobin 34.6 pg (26-34); Mean Corpuscular Volume 113.1 fl (80-100); Mean Platelet Volume 10.9 fl (7.4-10.4); Monocytes Absolute Auto 0.6 K/mm3 (0.1-0.6); Monocytes Percent Auto 14.4 % (2.6-8.5); Neutrophils Absolute Auto 2.7 K/mm3 (1.3-6.7); Neutrophils Percent Auto 66.7 % (45.5-73.1); Platelet Count Result 125 k/mm3 (150-375); Red Blood Count 3.35 M/mm3 (4.6-6.20); Red Cell Distribution Width 14.9 % (11.5-14.5)
--- OUTSIDE RECORDS SUMMARY | 2024-08-27 14:22 | XMS_ITS | Encounter Summary ---
Author Organization [facility] Address [address] [place] [address] Phone Care Team Providers Care Hydraulic Jack Mechanic Name Role Phone Isaiah Davis MD Primary Care Provider Dave Squires MD Unavailable Osmar Manley MD Primary Care Provider [phone] Encounter Details Date Type Department Care Team (Late st Contact Info) Description 03/16/2021 Telephone [facility] [address] [address] aDve Squires MD [address] [address] Social History Tobacco Use Types [...] on file Legal Sex Male 1:17 PM STONE DECORATOR Gender Identity Not on file Sexual Orientation [...] Time PHQ-9 Depression Total Score: 0 09/15/19 2:32 PM CDT documented as of this encounter Care Teams Hydraulic Jack Mechanic Relationship Specialty Start Date End Date Isaiah Davis MD [address] [place] [address] PCP - General Internal Medicine 09/15/19 08/19/24 Osmar Manley MD [address] [place] [address] PCP - General Geriatric Medicine 08/20/24 Dave Squires MD 10[address] [facility] 2 [place] [address] Consulting Physician Oncology 09/15/19 documented as of this encounter
--- OUTSIDE RECORDS SUMMARY | 2024-08-27 14:22 | XMS_ITS | CONTINUITY OF CARE DOCUMENT ---
Author Name dmitry, edmondvictor hugo Address Unknown Organization [facility] Address [address] [facility] [address] [place] [address] Phone [phone] Care Team Providers Care Radiation / Chemistry Technician Name Role Phone Kwaku Alcocer MD Unavailable RICHIE RICO PA-C Unavailable RICHIE RICO PA-C Unavailable [phone] INSURANCE PROVIDERS Payer name Policy type / Coverage type [employer] red constitution party ID [place] [employer] (2) Medicaid [id number]
--- OUTSIDE RECORDS SUMMARY | 2024-08-27 14:22 | XMS_ITS | Clinical Summary ---
Author Organization [facility] Address [address] 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 This disclosure is being madepursuant to the Care Everywhere program and may not contain all information available regarding this patient. Last updated 18.[employer] Allergies No known active allergies Medications * Be aware that medications may not be up to date on this document. Alwaysverify current medications with the patient. Medication Sig Dispensed Refills Start Date End Date Status acetaminophen (Tylenol) 325 MG tablet Take 2 (two) tablets by mouth every 6 hours as needed for Fever, Pain or Headache Maximum allowable Acetaminophen amount = 4 Grams (4000 mg) / 24 hours. 08/25/2024 Active albuterol-ipratrop ium (Duo-Neb) 0.5-2.5 (3) MG/3ML nebulizer solutionIndication s:Chronic Obstructive Pulmonary Disease Inhale 3 mL by mouth every 6 hours as needed for Shortness of Breath or Wheezing Reasons: Chronic Obstructive Lung Disease 120 mL 2 08/25/2024 Active amLODIPine (Norvasc) 5 MG tablet Take 1 (one) tablet by mouth once daily 08/26/2024 Active polyethylene glycol 3350 (Miralax) 17 g packet Take 17 (seventeen) g by mouth once daily as needed for Constipation 08/25/2024 Active melatonin 3 MG tablet Take 1 (one) tablet by mouth nightly as needed for Insomnia 08/25/2024 Active calcitriol (Rocaltrol) 0.25 MCG capsule Take 1 (one) capsule by mouth once daily 08/26/2024 Active sevelamer carbonate (Renvela) 800 MG Take 2 (two) tablets by mouth 3 times daily with meals 90 tablet 1 08/25/2024 Active levothyroxine (Synthroid) 175 MCG tablet Take 1 (one) tablet by mouth once daily 08/26/2024 Active ammonium lactate (Lac-Hydrin) 12 % lotion Apply to affected area 2 times daily 225 g 1 08/25/2024 Active Oxygen Oxygen continuous at 2 L/min via trach collar, up to 6-7 L/min via trach collar with activity. - Estimate length of need (number of months): Lifetime 08/25/2024 Active Active Problems Problem Noted Date Diagnosed Date Ascites 08/23/2024 Shock 08/18/2024 Primary hypertension 08/12/2024 Assessment & Plan (08/14/2024 6:39 PM CDT): Patient was on pressors because of septic shock. Currently on Norvasc 10, Coreg 12.5 b.i.d., and losartan. Watch for any hypotension and adjust medication as necessary. Acute respiratory failure with hypoxia Assessment & Plan (08/14/2024 7:18 PM CDT): Secondary to community-acquired pneumonia most likely. X-ray at OSH showed diffuse lung disease, pulmonary edema and pleural effusion. Status post antibiotics. Flu, COVID, RSV all negative. Currently on high-flow, please wean down to reach his baseline of 3 L of nasal cannula. Hypothyroidism 08/12/2024 Assessment & Plan (08/14/2024 6:39 PM CDT): Resume Synthroid 112 ESRD (end stage renal disease) 08/11/2024 Assessment & Plan (08/14/2024 7:25 PM CDT): Nephrology following. Patient received dialysis today. Resume Renvela Pleural effusion, bilateral 08/11/2024 Tracheostomy dependent 08/11/2024 Assessment & Plan (08/14/2024 7:25 PM CDT): Reason for transferred to this hospital is ENT consult to adjust and manage his tracheostomy. ENT already consulted, please follow recommendations. Hx of laryngeal cancer 08/11/2024 Type 2 diabetes mellitus, wi thout long-term current use of insulin 08/11/2024 Assessment & Plan (08/14/2024 6:39 PM CDT): Sliding scale as inpatient. 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 08/11/2024 6:21 PM CDT - 08/25/2024 6:18 PM CDT Hospital Encounter [facility] [address] [place] [address] Fermín Guzman DO Ferguson, Keith T, MD Felgenhauer, Joshua, MD Madi, Mahmoud, MD Mahmoud, Maya, MD Smutz, Kellen J, Lizz Garcia MD Fernelius, Joshua, MD Chinnery, Akrin, MD Internal Medicine Discharge Disposition: Home or Self Care 08/11/2024 Travel from Last 3 Months Social History Tobacco Use Types Packs/Day Years Used Date Smoking Tobacco: Never Smokeless Tobacco: Never Tobacco Cessation:Counseling Given: Not Answered AUDIT-C Answer Date Recorded Q1: How often do you have a drink containing alcohol? Never 08/11/2024 Q2: How many drinks containi ng alcohol do you have on a typical day when you are drinking? Patient does not drink Q3: How often do you have si x or more drinks on one occasion? Never 08/11/2024 Overall Financial Resource Strain (CARDIA) Answe r Date Recorded How hard is it for you to pa y for the very basics like food, housing, medical care, and heating? Not hard at all 08/11/2024 [facility] [place] [facility] - Occupational Stress Questionnaire Answer Date Recorded Do you feel stress - tense, restless, nervous, or anxious, or unable to sleep at night because your mind is troubled all the time - these days? Not at all 08/11/2024 Hunger Vital Sign Answer Date Recorded Within the past 12 months, y ou worried that your food would run out before you got the money to buy more. Never true 08/12/19 25 Within the past 12 months, t he food you bought just didn't last and you didn't have money to get more. Never true 08/11/2024 PRAPARE - Transportation Answer Date Re corded In the past 12 months, has l ack of transportation kept you from medical appointments or from getting medications? No 07/31 In the past 12 months, has l ack of transportation kept you from meetings, work, or from getting things needed for daily living? No 08/11/2024 Housing Stability Vital Sign Answer Amrit e Recorded In the last 12 months, was t here a time when you were not able to pay the mortgage or rent on time? No 08/11/2024 In the past 12 months, how m any times have you moved where you were living? 0 08/11/2024 At any time in the past 12 m [facility], were you homeless or living in a fci (including now)? No 08/11/2024 Sex and Gender Information Value Date Recorded Sex Assigned at Not on file Gender Identity Not on file Sexual Orientation Not on file Last Filed Vital Signs Vital Sign Reading Time Taken Comments Blood Pressure 110/66 08/25/2024 3:48 PM CDT Pulse 78 08/25/2024 3:48 PM CDT Temperature 36.7 C (98 F) 08/25/2024 3:48 PM CDT Respiratory Rate 18 08/25/2024 3:48 PM CDT Oxygen Saturation 91% 08/25/2024 3:48 PM CDT Inhaled Oxygen Concentration 40% 08/24/2024 4 :54 PM CDT Weight 94.5 kg (208 lb 5.4 oz) 08/25/2024 4:00 A M CDT Height 175.3 cm (5' 9 ) 08/11/2024 8:25 PM CDT Body Mass Index 30.77 08/11/2024 8:25 PM CDT Plan of Treatment Health Maintenance Due Date Last Done Comments COLON MONITORING 1964 COLONOSCOPY - COLON CA SCREENING 1964 CT COLONOGRAPHY - COLON CA SCREENING 1964 FIT - COLON CA SCREENING 1964 FLEX SIG - COLON CA SCREENING 1964 HIV SCREENING 01/06/1979 DTAP/TDAP/TD VACCINES (1 - Tdap) 01/06/1983 PNEUMOCOCCAL VACCINE 50+ (1 of 2 - PCV) 01/06/1983 HEPATITIS B VACCINE (1 of 3 - Risk Dialysis 4-dose series) 1984 DIABETES-STATIN 2004 ZOSTER VACCINE (1 of 2) 01/06/2014 Respiratory Syncytial Virus (RSV) Vaccine Pt: or over 60 yrs (1 - Risk 60-74 years 1-dose series) 2024 COVID-19 VACCINE (2 - 2023-2 5 season) 2024 08/04/2020 INFLUENZA VACCINE (#1) 2024 9, 02/18/2018 COLOGUARD (AGES 45-75) - COL ON CA SCREENING 05/29/2024 05/29/2021 Colorectal Cancer Screening 05/29/2024 DEPRESSION SCREENING 06/02/2024 DIABETES RETINOPATHY SCREENING 08/11/2024 DIABETES-FOOT EXAM WITH MONOFILAMENT 08/11/2024 DIABETES-HGB A1C 02/12/2025 08/12/2024, 11/20/2022, 05/09/2016 HEPATITIS C SCREENING Completed 08/24/2024 HIB VACCINE Aged Out No longer eligi ble based on patient's age to complete this topic HPV VACCINE Aged Out No longer eligi ble based on patient's age to complete this topic MENINGOCOCCAL (Group B) VACCINE SHARED DECISION-MAKING Aged Out No longer eligible based on patient's age to complete this topic MENINGOCOCCAL GROUPS A/C/Y/W VACCINE Aged Out No longer eligible b ased on patient's age to complete this topic Procedures Procedure Name Priority Date/Time Associated Diagnosis Comments PHOSPHORUS BLOOD Routine 08/25/2024 5:14 AM CDT MAGNESIUM BLOOD Routine 08/25/2024 5:14 AM CDT COMPREHENSIVE METABOLIC PANEL Routine 08/25/2024 5:14 AM CDT CBC W AUTO DIFFERENTIAL Routine 08/25/2024 5:14 AM CDT HEMODIALYSIS INPATIENT Routine 7:33 AM CDT HEPATITIS A ANTIBODY Routine 08/24/2024 3:46 AM CDT PHOSPHORUS BLOOD Routine 08/24/2024 3:46 AM CDT MAGNESIUM BLOOD Routine 08/24/2024 3:46 AM CDT COMPREHENSIVE METABOLIC PANEL Routine 08/24/2024 3:46 AM CDT CBC W AUTO DIFFERENTIAL Routine 08/24/2024 3:46 AM CDT HEPATITIS C AB SCREEN RFLX NAAT QUANT Routine 08/24/2024 3:45 AM CDT PHOSPHORUS BLOOD Routine 08/23/2024 5:42 AM CDT MAGNESIUM BLOOD Routine 08/23/2024 5:42 AM CDT COMPREHENSIVE METABOLIC PANEL Routine 08/23/2024 5:42 AM CDT CBC W AUTO DIFFERENTIAL Routine 08/23/2024 5:42 AM CDT PHOSPHORUS BLOOD Routine 08/22/2024 5:05 AM CDT MAGNESIUM BLOOD Routine 08/22/2024 5:05 AM CDT COMPREHENSIVE METABOLIC PANEL Routine 08/22/2024 5:05 AM CDT CBC W AUTO DIFFERENTIAL Routine 08/22/2024 5:05 AM CDT GLUCOSE - POINT OF CARE Routine 08/21/2024 7:42 PM CDT GLUCOSE - POINT OF CARE Routine 08/21/2024 12:06 PM CDT GLUCOSE - POINT OF CARE Routine 08/21/2024 7:51 AM CDT PHOSPHORUS BLOOD Routine 08/21/2024 3:49 AM CDT MAGNESIUM BLOOD Routine 08/21/2024 3:49 AM CDT COMPREHENSIVE METABOLIC PANEL Routine 08/21/2024 3:49 AM CDT CBC W AUTO DIFFERENTIAL Routine 08/21/2024 3:49 AM CDT GLUCOSE - POINT OF CARE Routine 08/21/2024 12:12 AM CDT GLUCOSE - POINT OF CARE Routine 08/20/2024 8:07 PM CDT GLUCOSE - POINT OF CARE Routine 08/20/2024 5:13 PM CDT HEMODIALYSIS INPATIENT Routine 1:05 PM CDT GLUCOSE - POINT OF CARE Routine 08/20/2024 12:33 PM CDT ACTH 60 MINUTES Timed 08/20/2024 7:23 AM CDT ACTH 30 MINUTES Timed 08/20/2024 6:52 AM CDT ACTH CORTISOL BASELINE Timed 5:59 AM CDT PHOSPHORUS BLOOD Routine 08/20/2024 4:06 AM CDT MAGNESIUM BLOOD Routine 08/20/2024 4:06 AM CDT COMPREHENSIVE METABOLIC PANEL Routine 08/20/2024 4:06 AM CDT CBC W AUTO DIFFERENTIAL Routine 08/20/2024 4:06 AM CDT GLUCOSE - POINT OF CARE Routine 08/19/2024 7:49 PM CDT GLUCOSE - POINT OF CARE Routine 08/19/2024 6:17 PM CDT GLUCOSE - POINT OF CARE Routine 08/19/2024 3:58 PM CDT HEMODIALYSIS INPATIENT Routine 1:58 PM CDT GLUCOSE - POINT OF CARE Routine 08/19/2024 1:09 PM CDT MRSA DNA PCR STAT 08/19/2024 11:36 AM CDT GLUCOSE - POINT OF CARE Routine 08/19/2024 11:20 AM CDT CORTISOL BLOOD AM Timed 08/19/2024 9:1 3 AM CDT GLUCOSE - POINT OF CARE Routine 08/19/2024 9:09 AM CDT BLOOD GASES CAIT + COOX PANEL Routine 08/19/2024 8:58 AM CDT GLUCOSE - POINT OF CARE Routine 08/19/2024 6:02 AM CDT T4 FREE Routine 08/19/2024 4:42 AM CDT TSH REFLEX FREE T4 Routine 08/19/2024 4: 42 AM CDT PHOSPHORUS BLOOD Routine 08/19/2024 4:42 AM CDT MAGNESIUM BLOOD Routine 08/19/2024 4:42 AM CDT COMPREHENSIVE METABOLIC PANEL Routine 08/19/2024 4:42 AM CDT CBC W AUTO DIFFERENTIAL Routine 08/19/2024 4:42 AM CDT GLUCOSE - POINT OF CARE Routine 08/19/2024 12:26 AM CDT GLUCOSE - POINT OF CARE Routine 08/18/2024 9:47 PM CDT GLUCOSE - POINT OF CARE Routine 08/18/2024 5:26 PM CDT GLUCOSE - POINT OF CARE Routine 08/18/2024 5:06 PM CDT GLUCOSE - POINT OF CARE Routine 08/18/2024 5:04 PM CDT CULTURE SPUTUM+GRAM STAIN Routine 08/18/2024 4:[address] NECK SOFT TISSUE W CONT STAT 08/18/2024 12:52 PM CDT Respiratory failure with hypoxia, unspecified chronicity CT ANGIO CHEST PULM EMBOLISM STAT 08/18/2024 12:52 PM CDT Respiratory failure with hypoxia, unspecified chronicity URINALYSIS REFLEX MICROSCOPIC REFLEX CULTURE Routine 08/18/2024 12:18 PM CDT CULTURE URINE Routine 08/18/2024 12:18 PM CDT GLUCOSE - POINT OF CARE Routine 08/18/2024 11:36 AM CDT TROPONIN-I HIGH SENSITIVE Timed 08/18/2024 11:36 AM CDT B-TYPE NATRIURETIC PEPTIDE ANNA 08/18/2024 11:36 AM CDT GLUCOSE - POINT OF CARE Routine 08/18/2024 11:34 AM CDT ECHO COMPLETE W CONTRAST Routine 08/18/2024 10:55 AM CDT Shock BLOOD GASES CAIT + COOX PANEL STAT 08/18/2024 10:02 AM CDT TROPONIN-I HIGH SENSITIVE STAT 08/18/2024 8:06 AM CDT BLOOD GASES ART + COOX PANEL Routine 08/18/2024 6:10 AM CDT XR CHEST 1VW PORTABLE STAT 08/18/2024 4:58 AM CDT Respiratory failure with hypoxia, unspecified chronicity ESRD (end stage renal disease) GLUCOSE - POINT OF CARE Routine 08/18/2024 4:39 AM CDT T4 FREE STAT 08/18/2024 4:35 AM CDT TSH REFLEX FREE T4 STAT 08/18/2024 4: 35 AM CDT TROPONIN-I HIGH SENSITIVE STAT 08/18/2024 4:34 AM CDT LACTIC ACID BLOOD STAT 08/18/2024 4:3 4 AM CDT BLOOD GASES ART + COOX PANEL STAT 08/18/2024 4:34 AM CDT EKG 12-LEAD STAT 08/18/2024 4:27 AM CDT Respiratory failure with hypoxia, unspecified chronicity EKG 12-LEAD Routine 08/18/2024 4:22 AM CDT Respiratory failure with hypoxia, unspecified chronicity EKG 12-LEAD STAT 08/18/2024 4:21 AM CDT Respiratory failure with hypoxia, unspecified chronicity ESRD (end stage renal disease) GLUCOSE - POINT OF CARE Routine 08/18/2024 3:57 AM CDT GLUCOSE - POINT OF CARE Routine 08/18/2024 12:30 AM CDT GLUCOSE - POINT OF CARE Routine 08/17/2024 5:30 PM CDT HEMODIALYSIS INPATIENT Routine 7:00 AM CDT GLUCOSE - POINT OF CARE Routine 08/17/2024 5:23 AM CDT PHOSPHORUS BLOOD Routine 08/17/2024 5:07 AM CDT MAGNESIUM BLOOD Routine 08/17/2024 5:07 AM CDT COMPREHENSIVE METABOLIC PANEL Routine 08/17/2024 5:07 AM CDT CBC W AUTO DIFFERENTIAL Routine 08/17/2024 5:07 AM CDT GLUCOSE - POINT OF CARE Routine 08/16/2024 11:47 PM CDT GLUCOSE - POINT OF CARE Routine 08/16/2024 6:35 PM CDT GLUCOSE - POINT OF CARE Routine 08/16/2024 6:17 PM CDT GLUCOSE - POINT OF CARE Routine 08/16/2024 12:47 PM CDT LACTIC ACID BLOOD Routine 08/16/2024 8:4 5 AM CDT PHOSPHORUS BLOOD Routine 08/16/2024 7:07 AM CDT MAGNESIUM BLOOD Routine 08/16/2024 7:07 AM CDT COMPREHENSIVE METABOLIC PANEL Routine 08/16/2024 7:07 AM CDT CBC W AUTO DIFFERENTIAL Routine 08/16/2024 7:07 AM CDT GLUCOSE - POINT OF CARE Routine 08/16/2024 5:28 AM CDT GLUCOSE - POINT OF CARE Routine 08/16/2024 12:26 AM CDT GLUCOSE - POINT OF CARE Routine 08/15/2024 6:12 PM CDT GLUCOSE - POINT OF CARE Routine 08/15/2024 12:01 PM CDT PHOSPHORUS BLOOD Routine 08/15/2024 5:46 AM CDT MAGNESIUM BLOOD Routine 08/15/2024 5:46 AM CDT COMPREHENSIVE METABOLIC PANEL Routine 08/15/2024 5:46 AM CDT CBC W AUTO DIFFERENTIAL Routine 08/15/2024 5:46 AM CDT GLUCOSE - POINT OF CARE Routine 08/15/2024 4:54 AM CDT GLUCOSE - POINT OF CARE Routine 08/14/2024 5:50 PM CDT GLUCOSE - POINT OF CARE Routine 08/14/2024 5:49 PM CDT GLUCOSE - POINT OF CARE Routine 08/14/2024 12:31 PM CDT GLUCOSE - POINT OF CARE Routine 08/14/2024 5:23 AM CDT PHOSPHORUS BLOOD Routine 08/14/2024 3:59 AM CDT MAGNESIUM BLOOD Routine 08/14/2024 3:59 AM CDT COMPREHENSIVE METABOLIC PANEL Routine 08/14/2024 3:59 AM CDT CBC W AUTO DIFFERENTIAL Routine 08/14/2024 3:59 AM CDT GLUCOSE - POINT OF CARE Routine 08/14/2024 12:23 AM CDT GLUCOSE - POINT OF CARE Routine 08/13/2024 6:14 PM CDT HEMODIALYSIS INPATIENT Routine 1:34 PM CDT GLUCOSE - POINT OF CARE Routine 08/13/2024 12:26 PM CDT GLUCOSE - POINT OF CARE Routine 08/13/2024 7:14 AM CDT PHOSPHORUS BLOOD Routine 08/13/2024 4:31 AM CDT MAGNESIUM BLOOD Routine 08/13/2024 4:31 AM CDT COMPREHENSIVE METABOLIC PANEL Routine 08/13/2024 4:31 AM CDT CBC W AUTO DIFFERENTIAL Routine 08/13/2024 4:31 AM CDT GLUCOSE - POINT OF CARE Routine 08/13/2024 12:58 AM CDT GLUCOSE - POINT OF CARE Routine 08/12/2024 6:07 PM CDT HEMODIALYSIS INPATIENT Routine 4:14 PM CDT GLUCOSE - POINT OF CARE Routine 08/12/2024 12:00 PM CDT HEPATITIS B SURFACE ANTIGEN W RFLX CONFIRMATION STAT 08/12/2024 11:45 AM CDT HEPATITIS B SURFACE ANTIBODY QUANT STAT 08/12/2024 11:45 AM CDT GLUCOSE - POINT OF CARE Routine 08/12/2024 11:06 AM CDT GLUCOSE - POINT OF CARE Routine 08/12/2024 6:59 AM CDT GLUCOSE - POINT OF CARE Routine 08/12/2024 6:39 AM CDT HEMOGLOBIN A1C Routine 08/12/2024 4:49 AM CDT PHOSPHORUS BLOOD Routine 08/12/2024 4:49 AM CDT MAGNESIUM BLOOD Routine 08/12/2024 4:49 AM CDT COMPREHENSIVE METABOLIC PANEL Routine 08/12/2024 4:49 AM CDT CBC W AUTO DIFFERENTIAL Routine 08/12/2024 4:49 AM CDT GLUCOSE - POINT OF CARE Routine 08/12/2024 12:32 AM CDT PT EVAL AND TREAT Routine 08/11/2024 11: 05 PM CDT OT EVAL AND TREAT Routine 08/11/2024 11: 05 PM CDT GLUCOSE - POINT OF CARE Routine 08/11/2024 9:02 PM CDT XR CHEST 1VW PORTABLE STAT 08/11/2024 8:28 PM CDT Respiratory failure with hypoxia, unspecified chronicity XR ABDOMEN KUB PORTABLE STAT 08/11/2024 8:28 PM CDT Respiratory failure with hypoxia, unspecified chronicity BLOOD GASES ART + COOX PANEL STAT 08/11/2024 8:11 PM CDT HAEMOPHILUS INFLUENZAE B ANTIBODY Routine 08/11/2024 8:05 PM CDT CBC W AUTO DIFFERENTIAL STAT 08/11/2024 8:05 PM CDT COMPREHENSIVE METABOLIC PANEL STAT 08/11/2024 8:05 PM CDT PHOSPHORUS BLOOD STAT 08/11/2024 8:05 PM CDT MAGNESIUM BLOOD STAT 08/11/2024 8:05 PM CDT from Last 3 Months Results * (ABNORMAL) CBC W AUTO DIFFERENTIAL (08/25/2024 5:14 AM CDT) Only the most recent of14 resultswithin the time period is included. [facility] Signature WBC 3.9(L) 4.0 - 10.7 x10E9/L 08/25/2024 5:53 AM [facility] RBC Count 3.29(L) 4.30 - 5.80 x10E12/L 08/25/2024 5:53 AM [facility] Hemoglobin 11.2(L) 13.3 - 17.5 g/dL 08/25/2024 5:53 AM [facility] Hematocrit 35.8(L) 38.7 - 51.1 % 08/25/2024 5:53 AM [facility] MCV 108.8(H) 80.0 - 98.0 fL 08/25/2024 5:53 AM [facility] MCH 34.0(H) 26.7 - 33.6 pg 08/25/2024 5:53 AM [facility] MCHC 31.3(L) 31.7 - 36.3 g/dL 08/25/2024 5:53 AM [facility] RDW-CV 14.7 11.3 - 14.8 % 08/25/2024 5:53 AM [facility] Platelet Count 142(L) 150 - 420 x10E9/L 08/25/2024 5:53 AM [facility] MPV 11.4 7.8 - 11.4 fL 08/25/2024 5:53 AM [facility] Neutrophil % 65.2 41.0 - 74.0 % 08/25/2024 5:53 AM [facility] Lymphocyte % 14.8(L) 17.0 - 47.0 % 08/25/2024 5:53 AM [facility] Monocyte % 15.1(H) 3.0 - 11.0 % 08/25/2024 5:53 AM [facility] Eosinophil % 3.1 0.0 - 7.0 % 08/25/2024 5:53 AM [facility] Basophil % 1.5 0.0 - 1.6 % 08/25/2024 5:53 AM [facility] Immature Granulocytes % 0.3 0.0 - 1.0 % 08/25/2024 5:53 AM [facility] Neutrophil Absolute 2.56 1.60 - 7.50 x10E9/L 08/25/2024 5:53 AM [facility] Lymphocyte Absolute 0.58(L) 1.00 - 4.40 x10E9/L 08/25/2024 5:53 AM [facility] Monocyte Absolute 0.59 0.15 - 1.00 x10E9/L 08/25/2024 5:53 AM [facility] Eosinophil Absolute 0.12 0.00 - 0.60 x10E9/L 08/25/2024 5:53 AM [facility] Basophil Absolute 0.06 0.00 - 0.13 x10E9/L 08/25/2024 5:53 AM [facility] Blood BLOOD SPECIMEN / Unknown Lab Venipuncture / Unknown 08/25/2024 5:14 AM CDT 08/25/2024 5:48 AM CDT Fermín Guzman DO LAB - HEMATOLOGY ORD ERABLES Performing Organization Address City/State/[facility] Co de Phone Number [address] [address], [place] [phone] * (ABNORMAL) COMPREHENSIVE METABOLIC PANEL (08/25/2024 5:14 AM CDT) Only the most recent of14 resultswithin the time period is included. BUN 32(H) 7 - 26 mg/dL 08/25/2024 6:30 AM [facility] Creatinine 4.73(H) 0.71 - 1.16 mg/dL 08/25/2024 6:30 AM [facility] Sodium 137 136 - 145 mmol/L 08/25/2024 6:30 AM [facility] Potassium 3.9 3.5 - 4.5 mmol/L 08/25/2024 6:30 AM [facility] Chloride 96(L) 98 - 107 mmol/L 08/25/2024 6:30 AM [facility] CO2 28 22 - 29 mmol/L 08/25/2024 6:30 AM [facility] Glucose 71 70 - 99 mg/dL 08/25/2024 6:30 AM [facility] Calcium 8.8 8.4 - 10.2 mg/dL 08/25/2024 6:30 AM [facility] Protein Total 6.9 6.0 - 8.3 g/dL 08/25/2024 6:30 AM [facility] Albumin 3.6 3.4 - 5.0 g/dL 08/25/2024 6:30 AM [facility] Bilirubin Total 0.7 0.2 - 1.2 mg/dL 08/25/2024 6:30 AM [facility] Alkaline Phosphatase 86 40 - 150 U/L 08/25/2024 6:30 AM [facility] ALT 10 5 - 55 U/L 08/25/2024 6:30 AM [facility] AST 16 5 - 34 U/L 08/25/2024 6:30 AM [facility] Anion Gap 13 6 - 16 08/25/2024 6:30 AM [facility] BUN/Creatinine Ratio 7 7 - 23 08/25/2024 6:30 AM [facility] Osmolality Calculated 289 275 - 295 mOsm/kg 08/25/2024 6:30 AM [facility] Albumin/Globulin Ratio 1.1 1.1 - 2.3 08/25/2024 6:30 AM [facility] eGFR by CKD-EPI 13(L) >=90 mL/min/1.7 3 m2 08/25/2024 6:30 AM [facility] Blood BLOOD SPECIMEN / Unknown Lab Venipuncture / Unknown 08/25/2024 5:14 AM CDT 08/25/2024 5:58 AM CDT Fermín Guzman DO LAB - CHEMISTRY DOMINICKE ANITA [facility] [address] [place] [address], [place] [phone] * PHOSPHORUS BLOOD (08/25/2024 5:14 AM CDT) Only the most recent of14 resultswithin the time period is included. [facility] Signature Phosphorus 4.2 2.8 - 5.1 mg/dL 08/25/2024 6:30 AM CDT [facility] Blood BLOOD SPECIMEN / Unknown Lab Venipuncture / Unknown 08/25/2024 5:14 AM CDT 08/25/2024 5:58 AM CDT Fermín Guzman LAB - CHEMISTRY ORDElvia HOWARD [address] [address], [place] [phone] * MAGNESIUM BLOOD (08/25/2024 5:14 AM CDT) Only the most recent of14 resultswithin the time period is included. Magnesium 2.2 1.6 - 2.6 mg/dL 08/25/2024 6:30 AM CDT [facility] Blood BLOOD SPECIMEN / Unknown Lab Venipuncture / Unknown 08/25/2024 5:14 AM CDT 08/25/2024 5:58 AM CDT Fermín James Megan [facility] - CHEMISTRY MARTIN HOWARD [address] [address], [place] [phone] * (ABNORMAL) HEPATITIS A ANTIBODY (08/24/2024 3:46 AM CDT) Hepatitis A Virus Antibody Total Positive( A) Negative 08/25/2024 8:29 PM CDT [employer] ([facility]) Comment: The positive anti-HAV is consistent with recent or remote Hepatitis A infection or antibody response to HAV vaccination. False positive anti-HAV can occur. Performed By: [facility] [address] [place] [id number] Transmission Inspector: Gaurav Ray MD, PhD CLIA Number: [id number] Blood BLOOD SPECIMEN / Unknown Lab Venipuncture / Unknown 08/24/2024 3:46 AM CDT 08/24/2024 4:26 AM CDT Duane Lovell [employer] [facility] - CHEMISTRY ORDERABLES [facility] ([facility]) [address] [place] [address], [place] * HEPATITIS C AB SCREEN RFLX NAAT QUANT (08/24/2024 3:45 AM CDT) [facility] Hepatitis C Antibody Non-react jarad Non-reac tive 08/24/2024 5:18 AM CDT [facility] Comment:Hepatitis C Antibody screen indicates no serologic evidence of past or current infection with Hepatitis C Virus. Patients with unexplained liver disease who are immunocompromised or suspected of having acute Hepatitis C infection may benefit from Nucleic Acid Test (MELISSA) for Hepatitis C Viral RNA to confirm Hepatitis C status. Blood BLOOD SPECIMEN / Unknown Lab Venipuncture / Unknown 08/24/2024 3:45 AM CDT 08/24/2024 4:26 AM CDT Duane Lovell APRN-[facility] LAB - CHEMISTRY ORDERABLES Performing Organization Address [facility]/ZIP Co de Phone Number [address] [address], [place] [phone] * GLUCOSE - POINT OF CARE (08/21/2024 7:42 PM CDT) Only the most recent of51 resultswithin the time period is included. [facility] Glucose WB/POC 91 70 - 99 mg/dL 08/21/2024 10:10 PM CDT [facility] Specimen Type Cap Fingerstick 2024 10:10 PM CDT [facility] Blood BLOOD SPECIMEN / Unknown 08/21/2024 7:42 PM CDT 08/21/2024 10:10 PM CDT Lizz Eugene MD LAB - POINT OF CARE ORDERABLES Performing Organization Address City/[facility]/ZIP Co de Phone Number [address] [address], [place] [phone] * ACTH 60 MINUTES (08/20/2024 7:23 AM CDT) [facility] Cortisol 60 Min 37.3 >=20.0 mcg/dL 08/20/2024 8:18 AM CDT [facility] Blood BLOOD SPECIMEN / Unknown Venipuncture / Unknown 08/20/2024 7:23 AM CDT 08/20/2024 7:33 AM CDT Lizz Eugene MD LAB - CHEMISTRY MARTIN HOWARD Performing Organization Address City/[facility]/ZIP Co de Phone Number [address] [address], [place] [phone] * ACTH 30 MINUTES (08/20/2024 6:52 AM CDT) Cortisol 30 Min 30.8 >=20.0 mcg/dL 08/20/2024 7:45 AM CDT [facility] Blood BLOOD SPECIMEN / Unknown Venipuncture / Unknown 08/20/2024 6:52 AM CDT 08/20/2024 7:01 AM CDT Lizz Eguene MD LAB - CHEMISTRY MARTIN HOWARD Performing Organization Address [facility]/ZIP Co de Phone Number [address] [address], [place] [phone] * ACTH CORTISOL BASELINE (08/20/2024 5:59 AM CDT) Cortisol Baseline 12.3 No Reference Range Established mcg/dL 08/20/2024 6:56 AM CDT [facility] Blood BLOOD SPECIMEN / Unknown Venipuncture / Unknown 08/20/2024 5:59 AM CDT 08/20/2024 6:07 AM CDT Lizz Eugene MD LAB - CHEMISTRY MARTIN HOWARD Performing Organization Address City/[facility]/ZIP Co de Phone Number [address] [address], [place] [phone] * MRSA DNA PCR (08/19/2024 11:36 AM CDT) MRSA DNA by PCR Not detected Not detected 08/19/2024 5:15 PM CDT [facility] Microbiology SPECIMEN FROM NASAL FOSSAE / Unknown Collection / Unknown 08/19/2024 11:36 AM CDT 08/19/2024 11:41 AM CDT Narrative [facility] - 08/19/2024 5:15 PM CDT Methicillin-resistant Staphylococcus aureus (MRSA) DNA is not detected (presumed not colonized with MRSA). Lizz Eugene MD LAB - MICROBIOLOGY O RDERABLES Performing Organization Address City/[facility] Co de Phone Number [facility] [address] [place] [address], [place] [phone] * CORTISOL BLOOD AM (08/19/2024 9:13 AM CDT) Cortisol AM 12.5 3.7 - 19.4 ug/dL 08/19/2024 10:16 AM CDT [facility] Blood BLOOD SPECIMEN / Unknown Venipuncture / Unknown 08/19/2024 9:13 AM CDT 08/19/2024 9:27 AM CDT Narrative [facility] - 08/19/2024 10:16 AM CDT Normal cortisol levels are generally highest in the morning hours and lowest from late evening through the bacteriologist pharmaceutical hours (8 PM to 4 AM). The PM measurements of cortisol run approximately one-half to one-third of the AM values. Lizz Eugene MD LAB - CHEMISTRY MARTIN HOWARD Performing Organization Address [facility] Co de Phone Number [facility] [address] [place] [address], [place] [phone] * (ABNORMAL) BLOOD GASES CAIT + COOX PANEL (08/19/2024 8:58 AM CDT) Only the most recent of2 resultswithin the time period is included. pH Venous 7.32 7.32 - 7.42 pH 08/19/2024 9:03 AM CDT [facility] pO2 Venous 48(H) 35 - 40 mmHg 08/19/2024 9:03 AM CDT [facility] pCO2 Venous 50 40 - 50 mmHg 08/19/2024 9:03 AM [facility] HCO3 Venous 25.8 20 - 30 mmol/L 08/19/2024 9:03 AM [facility] Base Excess Venous -0.8 -2.0 - 2.0 mmol/L 08/19/2024 9:03 AM [facility] Oxyhemoglobin Venous 73.4 % 08/01 9:03 AM [facility] Deoxyhemoglobin (HHB) Venous % 23.5 % 08/19/2024 9:03 AM [facility] Methemoglobin <0.8 0.0 - 2.0 % 08/19/2024 9:03 AM [facility] Carboxyhemoglobin 2.5(H) 0.0 - 2.0 % 2024 9:03 AM [facility] O2 Content Venous 11.9 Interpret within clinical context ml/dL 08/19/2024 9:03 AM [facility] Hemoglobin by COOX 11.5(L) 12.0 - 17.6 g/dL 08/19/2024 9:03 AM [facility] O2 Saturation Venous 76 >=70 % 08/01 9:03 AM [facility] FI O2 Mixed Venous 30.0 % 2024 9:03 AM [facility] Blood BLOOD SPECIMEN / Unknown Venipuncture / Unknown 08/19/2024 8:58 AM T 08/19/2024 9:00 AM [facility] Narrative [facility] - 08/19/2024 9:03 AM [facility] Carboxyhemoglobin Normal Concentration: Non-smokers: 0-2%; Smokers: 0-9%; Toxic: >20% Lizz Eugene MD LAB - BLOOD GASES OR DERABLES [facility] [address] [place] [address], [place] [phone] * (ABNORMAL) TSH REFLEX FREE T4 (08/19/2024 4:42 AM [facility]) Only the most recent of2 resultswithin the time period is included. TSH 172.910(H) 0.350 - 4.940 uIU/mL 08/19/2024 6:10 AM CDT [facility] Comment:Result obtained by laura mitchell. Blood BLOOD SPECIMEN / Unknown Venipuncture / Unknown 08/19/2024 4:42 AM CDT 08/19/2024 4:49 AM CDT Lizz Eugene MD LAB - CHEMISTRY MARTIN HOWARD [address] [address], [place] [phone] * T4 FREE (08/19/2024 4:42 AM CDT) Only the most recent of2 resultswithin the time period is included. Pathologist [facility] T4 Free 0.7 0.7 - 1.5 ng/dL 08/19/2024 7:06 AM CDT [facility] Blood BLOOD SPECIMEN / Unknown Venipuncture / Unknown 08/19/2024 4:42 AM CDT 08/19/2024 4:49 AM CDT Lizz Eugene MD LAB - CHEMISTRY MARTIN HOWARD [address] [address], [place] [phone] * CULTURE SPUTUM+GRAM STAIN (08/18/2024 4:19 PM CDT) Pathologist [facility] Culture Moderate normal oropharyngeal mich SAMIA 08/20/2024 8:32 AM CDT [facility] Gram Stain <10 per low power field Squamous epithelial cells 08/20/2024 8:32 AM CDT [facility] Gram Stain >= 25 per low power field Polymorphonuclear cells 08/20/2024 8:32 AM CDT [facility] Gram Stain Rare Gram-positive cocci 08/20/2024 8:32 AM CDT [facility] Gram Stain Moderate Gram-positive bacilli 08/20/2024 8:32 AM CDT [facility] Gram Stain Rare Gram-negative bacilli 08/20/2024 8:32 AM CDT [facility]CRO[facility] Microbiology SPUTUM / Unknown Collection / Unknown 08/18/2024 4:19 PM CDT 08/18/2024 4:23 PM CDT Lizz Eugene MD LAB - MICROBIOLOGY O RDERABLES [facility] [address] [place] [address], [place] [phone] * CT Angio Chest Pulm Embolism (08/18/2024 12:52 PM CDT) Anatomical Region Laterality Modality Chest Computed Tomogra phy 08/18/2024 1:02 PM CDT Impressions 08/18/2024 2:24 PM CDT IMPRESSION: 1.No evidence of acute pulmonary embolism in the main pulmonary artery and major branches. 2.Increased size of moderate right pleural effusion associated with atelectasis, and interstitial opacities not changed from previous study. 3.Chronically narrowed trachea and main bronchi secondary to anteroposteriorly narrow upper mediastinum. 4.Dilated main pulmonary artery likely representing pulmonary hypertension. 5.Hepatomegaly with the suggestion of cirrhotic changes in the liver. Moderate ascites noted. 6.Narrowed left brachiocephalic vein associated with multiple venous collaterals in the left chest wall and mediastinum (in follow-up studies it is preferable to inject contrast through the right upper extremity veins). > Dictated by Yennifer Elias MD, (residential director). I, Elder Martinez MD have personally reviewed and interpreted this examination/study. > Interpreting Provider: Elder Martinez MD on 08/18/2024 2:24 PM Narrative 08/18/2024 2:24 PM CDT PROCEDURE: CT ANGIO CHEST PULM EMBOLISM, DATE/TIME OF EXAM: 08/18/2024 12:55 PM, LOCATION [facility] INDICATION: J96.91: Respiratory failure with hypoxia, unspecified chronicity (HCC) ADDITIONAL CLINICAL INFORMATION: Ordering Provider Reason For Exam: concern for PE Technologist Note: Additional: History of CHF and ESRD presents for acute hypoxic respiratory failure COMPARISON: CT chest abdomen pelvis 08/05/2024. TECHNIQUE: CT angiogram of the chest performed with mL Isovue intravenous contrast. Coronal and sagittal reformatted images were submitted. FINDINGS: Lower Neck and Axillae: Tracheostomy tube terminating in the mid thoracic trachea. The trachea and proximal right and left bronchi lumen and narrow and it is compressed between spine and mediastinal vascular structures. Mediastinum is narrowed anteroposteriorly at the level of the manubrium sternum and Baljit index at the upper chest is 3.3. 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 Pleural spaces and lungs: Moderate-sized right pleural effusion increased from prior with adjacent atelectasis of the right lower lobe. Similar appearing small left pleural effusion. Bilateral interstitial edema. No suspicious pulmonary nodules. No pneumothorax. Mediastinum / heart: There is no lymph node enlargement. Mild cardiomegaly. Vascular: Atherosclerotic calcification of the aorta. The aorta is normal caliber with left-sided arch. There is dilation of the main pulmonary artery measuring up to 3.7 cm. There is reflux of injected contrast throughout collateral veins in the left chest wall into the azygous vein. No evidence of pulmonary embolism. Bones: Degenerative changes are visualized throughout the spine. Abdomen: Hepatomegaly with features of cirrhosis. Large ascites is noted. Procedure Note Elder Martinez MD - 08/18/2024 PROCEDURE: CT ANGIO CHEST PULM EMBOLISM, DATE/TIME OF EXAM: 08/18/2024 12:55 PM, LOCATION [facility] INDICATION: J96.91: Respiratory failure with hypoxia, unspecified chronicity (HCC) ADDITIONAL CLINICAL INFORMATION: Ordering Provider Reason For Exam: concern for PE Technologist Note: Additional: History of CHF and ESRD presents for acute hypoxicrespiratory failure COMPARISON: CT chest abdomen pelvis 08/05/2024. TECHNIQUE: CT angiogram of the chest performed with mL Isovueintravenous contrast. Coronal and sagittal reformatted images were submitted. FINDINGS: Lower Neck and Axillae: Tracheostomy tube terminating in the mid thoracic trachea. The tracheaand proximal right and left bronchi lumen and narrow and it is compressed between spine and mediastinal vascular structures. Mediastinum isnarrowed anteroposteriorly at the level of the manubrium sternum and Baljit indexat the upper chest is 3.3. 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 Pleural spaces and lungs: Moderate-sized right pleural effusionincreased from prior with adjacent atelectasis of the right lower lobe. Similar appearing small left pleural effusion. Bilateral interstitial edema. No suspicious pulmonary nodules. No pneumothorax. Mediastinum / heart: There is no lymph node enlargement. Mildcardiomegaly. Vascular: Atherosclerotic calcification of the aorta. The aorta isnormal caliber with left-sided arch. There is dilation of the main pulmonary artery measuring up to 3.7 cm. There is reflux of injected contrast throughout collateral veins in the left chest wall into the azygous vein. No evidence of pulmonaryembolism. Bones: Degenerative changes are visualized throughout the spine. Abdomen: Hepatomegaly with features of cirrhosis. Large ascites isnoted. IMPRESSION: 1.No evidence of acute pulmonary embolism in the main pulmonary arteryand major branches. 2.Increased size of moderate right pleural effusion associated with atelectasis, and interstitial opacities not changed from previous study. 3.Chronically narrowed trachea and main bronchi secondary to anteroposteriorly narrow upper mediastinum. 4.Dilated main pulmonary artery likely representing pulmonaryhypertension. 5.Hepatomegaly with the suggestion of cirrhotic changes in the liver. Moderate ascites noted. 6.Narrowed left brachiocephalic vein associated with multiple venous collaterals in the left chest wall and mediastinum (in follow-up studiesit is preferable to inject contrast through the right upper extremityveins). > Dictated by Yennifer Elias MD, (residential director). I, Elder Martinez MD have personally reviewed and interpreted this examination/study. > Interpreting Provider: Elder Martinez MD on 52:24 PM Lizz Eugene MD CT ORDERABLES * CT Neck Soft Tissue W Cont (08/18/2024 12:52 PM CDT) Anatomical Region Laterality Modality Head Computed Tomogra phy 08/18/2024 1:12 PM CDT Impressions 08/18/2024 1:43 PM CDT IMPRESSION: 1. Redemonstrated postsurgical changes total laryngectomy, tracheostomy and neck dissection with tracheostomy tube tip in the upper thoracic airway. 2. Bilateral airspace opacities/groundglass opacities with moderate right and trace left pleural effusions. Please refer to the report of concurrent CT of the chest for further details. 3. Other chronic changes as above. Report was dictated by Gatito Godinez MD, (Integrated [facility] resident). I, Loan Peters MD have personally reviewed and interpreted this examination/study. > Interpreting Provider: Loan Peters MD on 08/18/2024 1:43 PM Narrative 08/18/2024 1:43 PM CDT PROCEDURE: CT NECK SOFT TISSUE W CONT, DATE/TIME OF EXAM: 08/18/2024 12:55 PM, LOCATION [facility] INDICATION: J96.91: Respiratory failure with hypoxia, unspecified chronicity (HCC) ADDITIONAL CLINICAL INFORMATION: Ordering Provider Reason For Exam: airway monitoring, trach monitoring Technologist Note: Additional: TECHNIQUE: CT of the neck was performed following the uneventful administration of intravenous contrast according to standard protocol. Contrast: IOPAMIDOL 76 % IV SOLN:90 mL COMPARISON: CTA chest PE abdomen pelvis 08/05/2024 from outside hospital. FINDINGS: Postsurgical changes of total laryngectomy, tracheostomy and neck dissection. Redemonstrated tracheostomy with distal tip terminating in the upper thoracic trachea with postsurgical changes. There is a thin weblike soft tissue density within the trachea, probably representing secretion. Right moderate pleural effusion and left trace pleural effusion with airspace/groundglass opacities and atelectasis. There is atherosclerotic calcification of the aorta and its branches. The right internal carotid artery distal to the bifurcation has a short segment of high-grade stenosis (series 6, image 61) with distal reconstitution. There are soft noncalcified atherosclerotic plaques within the bilateral common carotid arteries with moderate to severe short segment narrowing of the left common carotid artery greater than the right (series 6, image 86). The main pulmonary artery measures up to 4.3 cm indicative of pulmonary arterial hypertension. Diffuse body wall edema. 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 Multiple small subcentimeter lymph nodes are noted in both sides of the neck with no evidence of cervical lymphadenopathy. The muscles of the neck appear normal. Fascial planes are preserved and the deep spaces of the neck appear normal. The visualized portions of the posterior fossa and brain appear normal. There is cervical degenerative disc and joint disease. Other than mild paranasal sinus disease, the visualized orbits and paranasal sinuses appear normal. The thyroid gland is not well visualized and surgically absent. Procedure Note Loan Peters MD - 08/18/2024 PROCEDURE: CT NECK SOFT TISSUE W CONT, DATE/TIME OF EXAM: 512:55 PM, LOCATION [facility] INDICATION: J96.91: Respiratory failure with hypoxia, unspecified chronicity (HCC) ADDITIONAL CLINICAL INFORMATION: Ordering Provider Reason For Exam: airway monitoring, trach monitoring Technologist Note: Additional: TECHNIQUE: CT of the neck was performed following the uneventful administration of intravenous contrast according to standard protocol. Contrast: IOPAMIDOL 76 % IV SOLN:90 mL COMPARISON: CTA chest PE abdomen pelvis 08/05/2024 from outside hospital. FINDINGS: Postsurgical changes of total laryngectomy, tracheostomy and neck dissection. Redemonstrated tracheostomy with distal tip terminating in the upper thoracic trachea with postsurgical changes. There is a thin weblike soft tissue density within the trachea, probably representing secretion.Right moderate pleural effusion and left trace pleural effusion with airspace/groundglass opacities and atelectasis. There is atherosclerotic calcification of the aorta and its branches. The right internal carotid artery distal to the bifurcation has a short segment of high-gradestenosis (series 6, image 61) with distal reconstitution. There are soft noncalcified atherosclerotic plaques within the bilateral common carotid arteries with moderate to severe short segment narrowing of the leftcommon carotid artery greater than the right (series 6, image 86). The main pulmonary artery measures up to 4.3 cm indicative of pulmonary arterial hypertension. Diffuse body wall edema. 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 Multiple small subcentimeter lymph nodes are noted in both sides of the neck with no evidence of cervical lymphadenopathy. The muscles of theneck appear normal. Fascial planes are preserved and the deep spaces of theneck appear normal. The visualized portions of the posterior fossa and brain appear normal. There is cervical degenerative disc and joint disease. Other than mild paranasal sinus disease, the visualized orbits and paranasal sinusesappear normal. The thyroid gland is not well visualized and surgically absent. IMPRESSION: 1. Redemonstrated postsurgical changes total laryngectomy, tracheostomyand neck dissection with tracheostomy tube tip in the upper thoracic airway. 2. Bilateral airspace opacities/groundglass opacities with moderateright and trace left pleural effusions. Please refer to the report ofconcurrent CT of the chest for further details. 3. Other chronic changes as above. Report was dictated by Gatito Godinez MD, ([facility]ated [facility] resident). I, Loan Peters MD have personally reviewed and interpreted this examination/study. > Interpreting Provider: Loan Peters MD on 08/18/2024 1:43 PM Lizz Eugene MD CT ORDERABLES * (ABNORMAL) URINALYSIS REFLEX MICROSCOPIC REFLEX CULTURE (08/18/2024 12:18 PM CDT) Color UA [place](A) Yellow, Straw 08/18/2024 12:56 PM [facility] Clarity UA Turbid(A) Clear 08/18/2024 12:56 PM [facility] Glucose UA Trace(A) Negative 08/18/2024 12:56 PM [facility] Bilirubin UA 1+(A) Negative 08/18/2024 12:56 PM [facility] Ketone UA Trace(A) Negative 08/18/2024 12:56 PM [facility] Specific [place] UA 1.020 1.005 - 1.030 08/18/2024 12:56 PM [facility] Blood UA 3+(A) Negative 08/18/2024 12:56 PM [facility] pH UA 7.0 5.0 - 9.0 pH 08/18/2024 12:56 PM [facility] Protein UA 3+(A) Negative 08/18/2024 12:56 PM [facility] Urobilinogen UA Negative Negative mg/dL 08/18/2024 12:56 PM [facility] Nitrite UA Negative Negative 08/18/2024 12:56 PM [facility] Leukocyte UA Negative Negative 08/18/2024 12:56 PM CDT [facility] RBC UA >100(A) 0 - 5 # /hpf 08/18/2024 12:56 PM CDT [facility] WBC UA 21-50(A) 0 - 5 # /hpf 08/18/2024 12:56 PM CDT [facility] Bacteria UA 1+(A) None Seen 08/18/2024 12:56 PM CDT [facility] Squamous Epithelial Cells 6-10 0 - 5 /hpf 08/18/2024 12:56 PM CDT [facility] Urine URINE SPECIMEN OBTAINED BY CLEAN CATCH PROCEDURE / Unknown Collection / Unknown 08/18/2024 12:18 PM CDT 08/18/2024 12:26 PM CDT Lizz Eugene MD LAB - URINALYSIS ORD ERABLES Performing Organization Address City/[facility]/ZIP Co de Phone Number [facility] [address] [place] [address], [place] [phone] * CULTURE URINE (08/18/2024 12:18 PM CDT) Pathologist [facility] Culture Urine No growth (<100 CFU/mL) SAMIA 08/19/2024 8:18 PM CDT [facility] Urine URINE SPECIMEN OBTAINED BY CLEAN CATCH PROCEDURE / Unknown Collection / Unknown 08/18/2024 12:18 PM CDT 08/18/2024 12:26 PM CDT Lizz Eugene MD LAB - MICROBIOLOGY O RDERABLES [facility] [address] [place] [address], [place] [phone] * (ABNORMAL) TROPONIN-I HIGH SENSITIVE (08/18/2024 11:36 AM CDT) Only the most recent of3 resultswithin the time period is included. Troponin I High Sensitive 37(H) <=35 ng/L 08/18/2024 12:21 PM CDT [facility] Blood BLOOD SPECIMEN / Unknown Venipuncture / Unknown 08/18/2024 11:36 AM CDT 08/18/2024 11:44 AM CDT Lizz Eugene MD LAB - CHEMISTRY AMRTIN HOWARD Performing Organization Address City/[facility]/ZIP Co de Phone Number [facility] [address] [place] [address], [place] [phone] * (ABNORMAL) B-TYPE NATRIURETIC PEPTIDE (08/18/2024 11:36 AM CDT) Pathologist [facility] BNP 4,192(H) <100 pg/mL 08/18/2024 12:20 PM CDT [facility] Comment: A decision threshold of 100 pg/mL has been demonstrated to provide the maximal combination of sensitivity, specificity and predictive value for the diagnosis of congestive heart failure (CHF). Virtually all patients with no evidence of CHF have BNP values less than 100 pg/mL. A BNP value greater than 100 pg/mL is consistent with the diagnosis of CHF in the appropriate clinical setting. In a study of 693 patients (male and female) with diagnosed CHF, the following values were determined based on the NYHA functional classification system: NYHA Functional Class Mean Valule (pg/mL) % >100 pg/mL I 320 58.1 II 432 73.0 III 656 79.0 IV 1635 98.3 Blood BLOOD SPECIMEN / Unknown Venipuncture / Unknown 08/18/2024 11:36 AM CDT 08/18/2024 11:43 AM CDT Lizz Eugene MD LAB - CHEMISTRY MARTIN HOWARD Performing Organization Address City/[facility]/ZIP Co de Phone Number [facility] [address] [place] [address], [place] [phone] * ECHO COMPLETE W CONTRAST (08/18/2024 10:55 AM CDT) AV area index 0.954 cm /m [facility] LA vol index 0.033 l/m [facility] Dimensionless Index 0.548 unitless [facility] Myocardial strain charge 2 unitless [facility] IVSd 2D 1.163 cm [facility] I PACS LVIDd 5.348 cm [facility] CV [facility] I PACS LVIDs 4.365 cm [facility] CV [facility] I PACS LVOT diam 2.258 cm [facility] CV [facility] I PACS LVPWd 1.163 cm [facility] I PACS LV biplane EF 50.038 % [facility] LV A2C EF 51.477 % [facility] I PACS LV A4C EF 47.067 % [facility] I PACS LV EDV A2C 175.578 ml [facility] FU JI PACS LV EDV A4C 125.147 ml [facility] CV FU JI PACS LV ESV A2C 85.195 ml [facility] CV FU JI PACS LV ESV A4C 66.244 ml [facility] CV FU JI PACS LVOT pk grad 2.145 mmHg [facility] LVOT pk manish 73.227 cm/s [facility] CV F UJI PACS LVOT VTI 13.705 cm [facility] CV [facility] I PACS RV-mckinnon basal diam 5.172 cm [facility] RVIDd 5.017 cm [facility] CV [facility] I PACS RVOT pk manish 35.168 cm/s [facility] CV F U PACS RVOT VTI 6.379 cm [facility]SM CV [facility] I PACS LA vol BP 76.954 ml [facility] CV [facility] I PACS RA area 30.745 cm [facility] [facility] P[facility] AV area pk manish 2.408 cm [facility] cont VTI 2.194 cm [facility] AV pk grad 5.928 mmHg SSM CV FU JI PACS AV mn grad 3.726 mmHg SSM CV FU JI PACS AV pk manish 121.739 cm/s SSM CV [facility] I PACS AV VTI 25.007 cm SSM CV [facility] I PACS MV A pk manish 38.206 cm/s SSM CV F U PACS MV E pk manish 64.533 cm/s SSM CV F UJI PACS MV mn grad 0.392 mmHg SSM CV FU JI PACS MV VTI 18.439 cm SSM CV [facility] I PACS UT VTI 122.832 cm SSM CV [facility] I PACS PV pk manish 49.37 cm/s SSM CV FUJ I PACS PV VTI 9.253 cm SSM CV FUJ I PACS TAPSE 1.348 cm SSM CV FUJ I PACS Ascending aorta 3.313 cm SSM CV FUJI PACS IVC Diam Expiration 2.913 cm SSM CV FUJI PACS Anatomical Region Laterality Modality Ultrasound 08/18/2024 9:15 AM CDT Narrative 08/18/2024 11:17 AM CDT Summary * The left ventricular mass is normal with concentric remodeling. * The left ventricle is normal in size. * Left ventricular segmental wall motion is normal. * Left ventricular systolic function is low normal with an estimated ejection fraction of 50% by biplane method of disks. * The left ventricular diastolic function is consistent with grade II diastolic dysfunction and increased left atrial filling pressure. * Right ventricle is severely dilated with severely reduced systolic function. * The left atrium is mildly dilated with a left atrial volume index of 33 ml/m2 by BP MOD. * The right atrium is severely dilated. * There is moderate to severe tricuspid valve regurgitation. * The pulmonary artery systolic pressure is mildly elevated, 45 mmHg. Patient Info Name: Bubba Saxena Age: 59 years : 1965 Gender: Male Ht: 69 in Wt: 232 lb BSA: 2.30 m2 HR: 55 bpm BP: 124 / 75 mmHg Heart Rhythm: Sinus Rhythm Exam Date: 08/18/2024 9:15 AM Patient Status: I/P Study Site: [facility] Primary Location: [facility] EStud Info Technical Quality: Technically Difficult Exam Type: ECHO COMPLETE W CONTRAST Indications R57.9 - Shock (HCC) Procedure(s) * An Ultrasound Enhancing Agent (UEA) was utilized to enhance endocardial definition and opacify the left ventricle. * A complete 2D, color Doppler, spectral Doppler and M-Mode transthoracic echocardiogram was performed with an Ultrasound Enhancing Agent (UEA). Contrast/Agitated Saline Contrast / Saline: Definity Amount: 1.00 ml Administered By: Catrachita Matthews Reaction to Contrast: no Reason for Technically Difficult Study: patient on ventilation, poor acoustic windows, positional limitations, body habitus, lung interference Staff Referring Physician: Lizz Eugene Ordering Provider: Lizz Eugene Attending Physician: Lizz Eugene Sanitation Worker Cleaning Machinery: Catrachita Matthews Left Ventricle The left ventricular mass is normal with concentric remodeling. The left ventricle is normal in size. Left ventricular segmental wall motion is normal. Left ventricular systolic function is low normal with an estimated ejection fraction of 50% by biplane method of disks. The left ventricular diastolic function is consistent with grade II diastolic dysfunction and increased left atrial filling pressure. Right Ventricle The right ventricle is severely dilated. Right ventricular systolic function is severely reduced. Left Atrium The left atrium is mildly dilated with a left atrial volume index of 33 ml/m2 by BP MOD. Right Atrium The right atrium is severely dilated. Atrial Septum Intact interatrial septum visualized by 2D and color Doppler imaging. Aortic Valve The aortic valve is trileaflet. There is no aortic valve stenosis. There is no aortic valve regurgitation. Pulmonic Valve The pulmonic valve is normal. There is no pulmonic valve stenosis. There is mild pulmonic regurgitation. Mitral Valve The mitral valve is normal. There is no mitral valve stenosis. There is mild mitral valve regurgitation. Tricuspid Valve The tricuspid valve is normal. There is moderate to severe tricuspid valve regurgitation. The pulmonary artery systolic pressure is mildly elevated, 45 mmHg. Inferior Vena Cava The inferior vena cava is dilated (> 2.1 cm). There is < 50% collapse of the IVC upon inspiration with an estimated right atrial pressure of 15 mmHg. Pericardium/Pleural There is a small pericardial effusion. Aorta The aortic root at the sinus of Valsalva is normal in size. The ascending aorta is normal in size. Measurements Left Ventricular Outflow Tract Name Value Normal LVOT 2D LVOT Diameter 2.3 cm LVOT Area 4.0 cm2 LVOT Doppler LVOT Peak Velocity 0.7 m/s LVOT Peak Gradient 2 mmHg LVOT Mean Velocity 53.95 cm/s LVOT Mean Gradient 1 mmHg LVOT VTI 13.7 cm LVOT VTI/AV VTI Ratio 0.5 LVOT Stroke Volume 55 ml LVOT Stroke Volume Index 24 ml/m2 35-58 LVOT CO 3.0 l/min LVOT CI 1.3 l/min/m2 Pulmonic Valve Name Value Normal RVOT Doppler RVOT Peak Velocity 0.4 m/s RVOT Peak Gradient 0 mmHg RVOT Mean Gradient 0 mmHg PV Doppler PV Peak Velocity 0.5 m/s PV Peak Gradient 1 mmHg PV Mean Gradient 0 mmHg PV Regurgitation Doppler UT End Diastolic Gradient 15 mmHg Mitral Valve Name Value Normal MV Doppler MV Peak Gradient 1 mmHg MV Mean Gradient 0 mmHg MV DI (VTI) 1.35 MV Area (Cont Eq VTI) 2.97 cm2 MV Diastolic Function MV E Peak Velocity 0.6 m/sec MV A Peak Velocity 0.4 m/sec MV E/A 1.7 MV Decel Time (PW) 256 ms MV A Wave Duration 228 ms MV Annular TDI MV Septal e' Velocity 2 cm/s >=8 MV E/e' (Septal) 26 <=8 Tricuspid Valve Name Value Normal Estimated PAP/RSVP RA Pressure 15 mmHg <=5 PA Systolic Pressure 45 mmHg <35 TV Annular TDI TV Lateral Rosi s' Velocity 8 cm/s 10-19 Pulmonary Vessels Name Value Normal Pulmonary Artery Doppler PA End Diastolic Pressure for UT 30 mmHg Aorta Name Value Normal Ascending Aorta Asc Ao Diameter 3.3 cm 2.2-3.8 Asc Ao Diameter Index 1.4 cm/m2 1.1-1.9 Venous Name Value Normal IVC/SVC IVC Diameter 2.9 cm <=2.1 Aortic Valve Name Value Normal AV Doppler AV Peak Velocity 1.22 m/s AV Peak Gradient 6 mmHg AV Mean Gradient 4 mmHg AV VTI 25 cm AV Area (Cont Eq VTI) 2.19 cm2 >=2.00 AV Area (Cont Eq Manish) 2.41 cm2 AV DI (VTI) 0.55 AV DI (Manish) 0.60 AV Regurgitation 2D LVOT Area 4.00 cm2 Ventricles Name Value Normal LV Dimensions 2D/MM IVS Diastolic Thickness (2D) 1.2 cm 0.6-1.0 LVID Diastole (2D) 5.3 cm 4.2-5.8 LVPW Diastolic Thickness (2D) 1.2 cm 0.6-1.0 IVS Systolic Thickness (2D) 1.4 cm LVID Systole (2D) 4.4 cm 2.5-4.0 LVPW Systolic Thickness (2D) 1.5 cm LV Mass (2D Cubed) 263 g 88-224 LV Mass Index (2D Cubed) 114 g/m2 49-115 Relative Wall Thickness (2D) 0.43 <=0.42 LV Fractional Shortening/Ejection Fraction 2D/MM LV Fractional Shortening (2D) 18 % 25-43 LV EF (2D Teichconnorz) 38 % 52-72 LV Diastolic Volume (4C MOD) 125 ml LV EF (4C MOD) 47 % LV Diastolic Volume (2C MOD) 176 ml LV EF (2C MOD) 51 % LV Diastolic Volume (BP MOD) 150 ml 62-150 LV Diastolic Volume Index (BP MOD) 65 ml/m2 34-74 LV Systolic Volume (BP MOD) 75 ml 21-61 LV Systolic Volume Index (BP MOD) 33 ml/m2 11-31 LV EF (BP MOD) 50 % 52-72 LV Diastolic Length (4C) 9.1 cm LV Systolic Length (4C) 7.9 cm LV Stroke Volume (4C MOD) 59 ml RV Dimensions 2D/MM RVID Diastole (2D) 5.0 cm 2.5-3.5 RVID Systole (2D) 4.7 cm RV Basal Diastolic Dimension 5.2 cm 2.5-4.1 RV Diastolic Length (4C) 10.7 cm 5.9-8.3 TAPSE 1.3 cm >=1.7 Atria Name Value Normal LA Dimensions LA Volume (BP MOD) 77 ml LA Volume Index (BP MOD) 33 ml/m2 16-34 RA Dimensions RA Area (4C) 31 cm2 <=18 RA Area (4C) Index 13 cm2/m2 Report Signatures Finalized by Glenys Mesa MD on 08/18/2024 11:17 AM Procedure Note Glenys Mesa MD - 08/18/2024 Summary * The left ventricular mass is normal with concentric remodeling. * The left ventricle is normal in size. * Left ventricular segmental wall motion is normal. * Left ventricular systolic function is low normal with an estimated ejection fraction of 50% by biplane method of disks. * The left ventricular diastolic function is consistent with grade II diastolic dysfunction and increased left atrial filling pressure. * Right ventricle is severely dilated with severely reduced systolic function. * The left atrium is mildly dilated with a left atrial volume index of33 ml/m2 by BP MOD. * The right atrium is severely dilated. * There is moderate to severe tricuspid valve regurgitation. * The pulmonary artery systolic pressure is mildly elevated, 45 mmHg. Patient Info Name: Bubba Saxena Age: 59 years : 1965 Gender: Male Ht: 69 in Wt: 232 lb BSA: 2.30 m2 HR: 55 bpm BP: 124 / 75 mmHg Heart Rhythm: Sinus Rhythm Exam Date: 08/18/2024 9:15 AM Patient Status: I/P Study Site: [facility] Primary Location: [facility] EStudy Info Technical Quality: Technically Difficult Exam Type: ECHO COMPLETE W CONTRAST Indications R57.9 - Shock (HCC) Procedure(s) * An Ultrasound Enhancing Agent (UEA) was utilized to enhanceendocardial definition and opacify the left ventricle. * A complete 2D, color Doppler, spectral Doppler and M-Modetransthoracic echocardiogram was performed with an Ultrasound Enhancing Agent (UEA). Contrast/Agitated Saline Contrast / Saline: Definity Amount: 1.00 ml Administered By: Catrachita Matthews Reaction to Contrast: no Reason for Technically Difficult Study: patient on ventilation, poor acoustic windows, positional limitations, body habitus, lung interference Staff Referring Physician: Lizz Eugene Ordering Provider: Lizz Eugene Attending Physician: Lizz Eugene Sanitation Worker Cleaning Machinery: Catrachita Matthews Left Ventricle The left ventricular mass is normal with concentric remodeling. Theleft ventricle is normal in size. Left ventricular segmental wall motion isnormal. Left ventricular systolic function is low normal with an estimatedejection fraction of 50% by biplane method of disks. The left ventriculardiastolic function is consistent with grade II diastolic dysfunction and increasedleft atrial filling pressure. Right Ventricle The right ventricle is severely dilated. Right ventricular systolicfunction is severely reduced. Left Atrium The left atrium is mildly dilated with a left atrial volume index of33 ml/m2 by BP MOD. Right Atrium The right atrium is severely dilated. Atrial Septum Intact interatrial septum visualized by 2D and color Doppler imaging. Aortic Valve The aortic valve is trileaflet. There is no aortic valve stenosis. Thereis no aortic valve regurgitation. Pulmonic Valve The pulmonic valve is normal. There is no pulmonic valve stenosis. Thereis mild pulmonic regurgitation. Mitral Valve The mitral valve is normal. There is no mitral valve stenosis. There ismild mitral valve regurgitation. Tricuspid Valve The tricuspid valve is normal. There is moderate to severe tricuspidvalve regurgitation. The pulmonary artery systolic pressure is mildly elevated,45 mmHg. Inferior Vena Cava The inferior vena cava is dilated (> 2.1 cm). There is < 50% collapse ofthe IVC upon inspiration with an estimated right atrial pressure of 15 mmHg. Pericardium/Pleural There is a small pericardial effusion. Aorta The aortic root at the sinus of Valsalva is normal in size. Theascending aorta is normal in size. Measurements Left Ventricular Outflow Tract Name Value Normal LVOT 2D LVOT Diameter 2.3 cm LVOT Area 4.0 cm2 LVOT Doppler LVOT Peak Velocity 0.7 m/s LVOT Peak Gradient 2 mmHg LVOT Mean Velocity 53.95 cm/s LVOT Mean Gradient 1 mmHg LVOT VTI 13.7 cm LVOT VTI/AV VTI Ratio 0.5 LVOT Stroke Volume 55 ml LVOT Stroke Volume Index 24 ml/m2 35-58 LVOT CO 3.0 l/min LVOT CI 1.3 l/min/m2 Pulmonic Valve Name Value Normal RVOT Doppler RVOT Peak Velocity 0.4 m/s RVOT Peak Gradient 0 mmHg RVOT Mean Gradient 0 mmHg PV Doppler PV Peak Velocity 0.5 m/s PV Peak Gradient 1 mmHg PV Mean Gradient 0 mmHg PV Regurgitation Doppler UT End Diastolic Gradient 15 mmHg Mitral Valve Name Value Normal MV Doppler MV Peak Gradient 1 mmHg MV Mean Gradient 0 mmHg MV DI (VTI) 1.35 MV Area (Cont Eq VTI) 2.97 cm2 MV Diastolic Function MV E Peak Velocity 0.6 m/sec MV A Peak Velocity 0.4 m/sec MV E/A 1.7 MV Decel Time (PW) 256 ms MV A Wave Duration 228 ms MV Annular TDI MV Septal e' Velocity 2 cm/s >=8 MV E/e' (Septal) 26 <=8 Tricuspid Valve Name Value Normal Estimated PAP/RSVP RA Pressure 15 mmHg <=5 PA Systolic Pressure 45 mmHg <35 TV Annular TDI TV Lateral Rosi s' Velocity 8 cm/s 10-19 Pulmonary Vessels Name Value Normal Pulmonary Artery Doppler PA End Diastolic Pressure for UT 30 mmHg Aorta Name Value Normal Ascending Aorta Asc Ao Diameter 3.3 cm 2.2-3.8 Asc Ao Diameter Index 1.4 cm/m2 1.1-1.9 Venous Name Value Normal IVC/SVC IVC Diameter 2.9 cm <=2.1 Aortic Valve Name Value Normal AV Doppler AV Peak Velocity 1.22 m/s AV Peak Gradient 6 mmHg AV Mean Gradient 4 mmHg AV VTI 25 cm AV Area (Cont Eq VTI) 2.19 cm2 >=2.00 AV Area (Cont Eq Manish) 2.41 cm2 AV DI (VTI) 0.55 AV DI (Manish) 0.60 AV Regurgitation 2D LVOT Area 4.00 cm2 Ventricles Name Value Normal LV Dimensions 2D/MM IVS Diastolic Thickness (2D) 1.2 cm 0.6-1.0 LVID Diastole (2D) 5.3 cm 4.2-5.8 LVPW Diastolic Thickness (2D) 1.2 cm 0.6-1.0 IVS Systolic Thickness (2D) 1.4 cm LVID Systole (2D) 4.4 cm 2.5-4.0 LVPW Systolic Thickness (2D) 1.5 cm LV Mass (2D Cubed) 263 g 88-224 LV Mass Index (2D Cubed) 114 g/m2 49-115 Relative Wall Thickness (2D) 0.43 <=0.42 LV Fractional Shortening/Ejection Fraction 2D/MM LV Fractional Shortening (2D) 18 % 25-43 LV EF (2D Teicholz) 38 % 52-72 LV Diastolic Volume (4C MOD) 125 ml LV EF (4C MOD) 47 % LV Diastolic Volume (2C MOD) 176 ml LV EF (2C MOD) 51 % LV Diastolic Volume (BP MOD) 150 ml 62-150 LV Diastolic Volume Index (BP MOD) 65 ml/m2 34-74 LV Systolic Volume (BP MOD) 75 ml 21-61 LV Systolic Volume Index (BP MOD) 33 ml/m2 11-31 LV EF (BP MOD) 50 % 52-72 LV Diastolic Length (4C) 9.1 cm LV Systolic Length (4C) 7.9 cm LV Stroke Volume (4C MOD) 59 ml RV Dimensions 2D/MM RVID Diastole (2D) 5.0 cm 2.5-3.5 RVID Systole (2D) 4.7 cm RV Basal Diastolic Dimension 5.2 cm 2.5-4.1 RV Diastolic Length (4C) 10.7 cm 5.9-8.3 TAPSE 1.3 cm >=1.7 Atria Name Value Normal LA Dimensions LA Volume (BP MOD) 77 ml LA Volume Index (BP MOD) 33 ml/m2 16-34 RA Dimensions RA Area (4C) 31 cm2 <=18 RA Area (4C) Index 13 cm2/m2 Report Signatures Finalized by Glenys Mesa MD on 08/18/2024 11:17 AM Lizz Eugene MD ECHO CUPID * (ABNORMAL) BLOOD GASES ART + COOX PANEL (08/18/2024 6:10 AM CDT) Only the most recent of3 resultswithin the time period is included. pH Arterial 7.28(L) 7.35 - 7.45 pH 08/18/2024 6:23 AM [facility] pO2 Arterial 121(H) 80 - 100 mmHg 08/18/2024 6:23 AM [facility] pCO2 Arterial 55(H) 35 - 45 mmHg 6:23 AM [facility] HCO3 Arterial 25.8 20.0 - 30.0 mmol/L 08/18/2024 6:23 AM [facility] BE Arterial -1.6 -2.0 - 2.0 mmol/L 08/18/2024 6:23 AM [facility] Oxyhemoglobin Arterial 96.1 % 08/18/2024 6:23 AM [facility] Dexoyhemoglobin (HHB) % <1.0 % 08/18/2024 6:23 AM [facility] Methemoglobin 1.0 0.0 - 2.0 % 08/18/2024 6:23 AM [facility] Carboxyhemoglobin 2.0 0.0 - 2.0 % 2024 6:23 AM [facility] O2 Content Arterial 15.9 Interpret within clinical context ml/dL 08/18/2024 6:23 AM CDT [facility] Hemoglobin by COOX 11.6(L) 12.0 - 17.6 g/dL 08/18/2024 6:23 AM CDT [facility] O2 Saturation Arterial 99 90 - 100 % 08/18/2024 6:23 AM CDT [facility] FI O2 Arterial 40.0 % 08/18/2024 6:23 AM CDT [facility] Blood, arterial ARTERIAL BLOOD SPECIMEN / Unknown Arterial Puncture / Unknown 08/18/2024 6:10 AM CDT 08/18/2024 6:17 AM CDT Narrative [facility] - 08/18/2024 6:23 AM CDT Carboxyhemoglobin Normal Concentration: Non-smokers: 0-2%; Smokers: 0-9%; Toxic: >20% Lisa Sim DO LAB - BLOOD GASES OR DERABLES Performing Organization Address City/State/[facility] Co de Phone Number [address] [address], [place] [phone] * XR Chest 1Vw Portable (08/18/2024 4:58 AM CDT) Only the most recent of2 resultswithin the time period is included. Anatomical Region Laterality Modality Chest Digital Radiogra phy 08/18/2024 4:51 PM CDT Impressions 08/18/2024 4:52 PM CDT IMPRESSION: *Similar tracheostomy tube and surgical clips projecting over the lower neck. *Interval removal of enteric tube. Stable enlarged and obscured cardiomediastinal silhouette. Atherosclerotic aorta. Worsening moderate bilateral pleural effusions with associated atelectasis/airspace disease. Mild pulmonary edema. Superimposed infection is not excluded. No pneumothorax. > Interpreting Provider: Dominga Jean MD on 08/18/2024 4:52 PM Narrative 08/18/2024 4:52 PM CDT PROCEDURE: XR CHEST 1VW PORTABLE DATE/TIME OF EXAM: 08/18/2024 4:58 AM CLINICAL INFORMATION: None relevant/not provided if blank. Indication: J96.91: Respiratory failure with hypoxia, unspecified chronicity (HCC) N18.6: ESRD (end stage renal disease) (HCC) Additional History: COMPARISON: 08/11/2024 Procedure Note Dominga Jean MD - 08/18/2024 PROCEDURE: XR CHEST 1VW PORTABLE DATE/TIME OF EXAM: 08/18/2024 4:58 AM CLINICAL INFORMATION: None relevant/not provided if blank. Indication: J96.91: Respiratory failure with hypoxia, unspecified chronicity (HCC) N18.6: ESRD (end stage renal disease) (HCC) Additional History: COMPARISON: 08/11/2024 IMPRESSION: *Similar tracheostomy tube and surgical clips projecting over the lower neck. *Interval removal of enteric tube. Stable enlarged and obscured cardiomediastinal silhouette.Atherosclerotic aorta. Worsening moderate bilateral pleural effusions with associated atelectasis/airspace disease. Mild pulmonary edema. Superimposedinfection is not excluded. No pneumothorax. > Interpreting Provider: Dominga Jean MD on 08/18/2024 4:52 PM Lisa Sim DO DIAGNOSTIC IMAGING O RDERABLES * LACTIC ACID BLOOD (08/18/2024 4:34 AM CDT) Only the most recent of2 resultswithin the time period is included. [facility] Lactic Acid-Stat 1.2 <=2.0 mmol/L 08/18/2024 5:09 AM CDT [facility] Blood BLOOD SPECIMEN / Unknown Venipuncture / Unknown 08/18/2024 4:34 AM CDT 08/18/2024 4:45 AM CDT Lisa Sim DO LAB - CHEMISTRY MARTIN HOWARD [facility] [address] [place] [phone], [place] [phone] * EKG 12-LEAD (08/18/2024 4:27 AM CDT) Only the most recent of3 resultswithin the time period is included. [facility] Ventricular Rate 72 BPM [facility] Atrial Rate 72 BPM [facility] P-R Interval 232 ms [facility] QRS Duration ms 112 ms [facility] Q-T Interval ms 362 ms [facility] QTC Calculation (Bezet) 396 ms [facility] Calculated P [place] 78 degrees [facility] Calculated R [place] 120 degrees [facility] Calculated T [place] -103 degrees [facility] Interpretation EKG SINUS RHYTHM WITH 1ST DEGREE A-V BLOCK WITH PREMATURE ATRIAL COMPLEXES RIGHT AXIS DEVIATION INCOMPLETE RIGHT BUNDLE BRANCH BLOCK POSSIBLE RIGHT VENTRICULAR HYPERTROPHY ST & T WAVE ABNORMALITY, CONSIDER INFERIOR ISCHEMIA ABNORMAL ECG WHEN COMPARED WITH ECG OF 18-AUG-2024 04:22, NO SIGNIFICANT CHANGE COMPARED WITH PRIOR EKG Confirmed by RAMÓN IBANEZ MD ([id number]) on 08/23/2024 10:13:22 PM [facility] 08/18/2024 4:27 AM CDT 08/23/2024 10:13 PM CDT Lisa Sim DO ECG ORDERABLES [facility] * HEPATITIS B SURFACE ANTIBODY QUANT (08/12/2024 11:45 AM CDT) Hepatitis B Virus Surface Antibody Non-react jarad Non-react jarad 08/12/2024 12:49 PM CDT [facility] Comment: < 8 mIU/mL Hepatitis B surface Antibody (HBsAb). Nonreactive for HBsAb - individual is considered not immune to Hepatitis B Virus infection. Hepatitis B Surface Antibody Quantitative <3.0 <8.0 mIU/mL 08/12/2024 12:49 PM CDT [facility] Comment: Hepatitis B Surface Antibody Numeric Result Interpretation: Nonreactive: <8.0 mIU/mL Indeterminate: 8.0 - 12.0 mIU/mL Reactive: >12.0 mIU/mL Blood BLOOD SPECIMEN / Unknown Venipuncture / Unknown 08/12/2024 11:45 AM CDT 08/12/2024 11:47 AM CDT Narrative [facility] - 08/12/2024 12:49 PM CDT This assay should not be used for blood, plasma, or tissue donor screening. This assay is not recommended for neonates born to HBV-infected or suspected HBV-infected mothers. Sherwin Mckeon MD LAB - SEROLOGY ORDER [place] [address] [phone], [place] [phone] * HEPATITIS B SURFACE ANTIGEN W RFLX CONFIRMATION (08/12/2024 11:45 AM CDT) Hepatitis B Virus Surface Antigen Non-reacti ve Non-reacti ve 08/12/2024 12:49 PM CDT [facility] Blood BLOOD SPECIMEN / Unknown Venipuncture / Unknown 08/12/2024 11:45 AM CDT 08/12/2024 11:47 AM CDT Sherwin Mckeon MD LAB - CHEMISTRY ORDE RABLES Performing Organization Address [facility]/ZIP Co de Phone Number [address] [address], [place] [phone] * HEMOGLOBIN A1C (08/12/2024 4:49 AM CDT) Hemoglobin A1c 5.2 <=5.6 % 08/12/2024 8:57 AM CDT [facility] Estimated Average Glucose 103 mg/dL 08/12/2024 8:57 AM CDT [facility] Comment: HbA1c Interpretation: Normal : < 5.7% Pre-diabetes: 5.7-6.4% Diabetes: Equal to or greater than 6.5% Test results diagnostic of diabetes should be repeated for confirmation. Treatment target values recommended by ADA and other clinical organizations should be used to evaluate metabolic control in patients. Reference: [place] [employer], Standards of Care in Diabetes -2020 In patients 70 years and older consider HbA1c target range of 7.0-7.5% (Reference: Jun Elizabeth et al. JAMDA. 2012) The [place] assay for the measurement of HbA1c is a National Glycohemoglobin Standardization Program (NGSP) certified method. Blood BLOOD SPECIMEN / Unknown Venipuncture / Unknown 08/12/2024 4:49 AM CDT 08/12/2024 5:08 AM CDT Fermín Guzman DO LAB - CHEMISTRY MARTIN ANCAJOAQUÍN [facility] Organization Address City/State/ZIP Co de Phone Number [place] [address] [place] [address], [place] [phone] * XR Abdomen Kub Portable (08/11/2024 8:28 PM CDT) Anatomical Region Laterality Modality Abdomen Digital Radiogra phy 08/12/2024 12:3 2 PM CDT Narrative 08/12/2024 12:33 PM CDT PROCEDURE: XR ABDOMEN KUB PORTABLE DATE/TIME OF EXAM: 08/11/2024 8:28 PM CLINICAL INFORMATION: None relevant/not provided if blank. Indication: J96.91: Respiratory failure with hypoxia, unspecified chronicity (HCC) Additional History: COMPARISON: None. FINDINGS: NG tube is identified. The distal end is seen in the region of fundus of the stomach. and side-port is noted at the level of gastric lumen. > Interpreting Provider: Elder Martinez MD on 08/12/2024 12:33 PM Procedure Note Elder Martinez MD - 08/12/2024 PROCEDURE: XR ABDOMEN KUB PORTABLE DATE/TIME OF EXAM: 08/11/2024 8:28 PM CLINICAL INFORMATION: None relevant/not provided if blank. Indication: J96.91: Respiratory failure with hypoxia, unspecified chronicity (HCC) Additional History: COMPARISON: None. FINDINGS: NG tube is identified. The distal end is seen in the region of fundusof the stomach. and side-port is noted at the level of gastric lumen. > Interpreting Provider: Elder Martinez MD on 2:33 PM Fermín Guzman DO DIAGNOSTIC IMAGING O RDERABLES * HAEMOPHILUS INFLUENZAE B ANTIBODY (08/11/2024 8:05 PM CDT) Influenza B IgG Antibody 1.8 ug/mL 08/14/2024 9:01 PM CDT [employer] ([facility]) Comment: INTERPRETIVE INFORMATION: H. Influenzae b Ab, IgG Less than 1.0 ug/mL ...... Antibody concentration not protective. 1.0 ug/mL or greater ..... Antibodies to H. Influenzae b detected. Suggestive of protection. Responder status is determined according to the ratio of post-vaccination concentration to pre-vaccination concentration of Haemophilus influenza b antibody, IgG as follows: 1. If the post-vaccination concentration is less than 3.0 ug/mL, the patient is considered to be a non-responder. 2. If the post-vaccination concentration is greater than or equal to 3.0 ug/mL, a patient with a ratio of greater than or equal to 4 is a good responder, a ratio of 2-4 is a weak responder, and a ratio of less than 2 is considered a non-responder. This test was developed and its performance characteristics determined by [facility]. It has not been cleared or approved by the US Food and Drug Administration. This test was performed in a CLIA certified laboratory and is intended for clinical purposes. Performed By: [facility] [address] [place] [address] Transmission Inspector: Gaurav Ray MD, PhD CLIA Number: [id number] Blood BLOOD SPECIMEN / Unknown Venipuncture / Unknown 08/11/2024 8:05 PM CDT 08/11/2024 8:25 PM CDT Fermín Guzman DO LAB - CHEMISTRY [facility] Organization Address City/State/ZIP Co de Phone Number [facility] [address] [place] [address], [place] from Last 3 Months Advance Directives * Full Code (Latest Code Status on File) Date Activated Date Inactivated Comments 08/11/2024 7:15 PM 08/25/2024 7:19 PM Care Teams Airplane First Officer Relationship Specialty Start Date End Date Osmar Manley MD [address] [place] [address] PCP - General 07/05/22
--- OUTSIDE RECORDS SUMMARY | 2024-08-27 14:22 | XMS_ITS | Encounter Summary ---
Author Organization [facility] Address [address] [place] [address] Care Team Providers Care Finance Consultant Name Role Phone Osmar Manley MD Primary Care Provider [phone] Reason for Visit * Reason Onset Date Comments Transitional Care 08/26/2024 Encounter Details Date Type Department Care Team (Late st Contact Info) Description 08/26/2024 Telephone Transitional Care at [address] [address] Brooklyn Gill, road roller operator hot mix Social History Tobacco Use Types Packs/Day Years Used Date Smoking Tobacco: Never Smokeless Tobacco: Never AUDIT-C Answer Date Recorded Q1: How often [...] and heating? Not hard at all 08/11/2024 [facility] [place] [facility] Occupat ional [facility] - Occupational Stress [...] any time in the past 12 m [facility], were you homeless or living in a care home (including now)? No 08/11/2024 Sex and Gender Information Value Date Recorded Sex Assigned at Not on file Gender Identity Not on file Sexual Orientation Not on file documented as of this encounter Functional Status Functional Status Response Date of Assess ment Is person deaf or have serious hearing difficult y? No 08/11/2024 Is person blind or have serious difficulty seein g? No 08/11/2024 Does person have serious dif ficulty walking/climbing stairs? No 08/11/2024 Does person have difficulty dressing/bathing? No 08/11/2024 Does person have difficulty doing errands alone? No 08/11/2024 Cognitive Status Response Date of Assessm ent Does person have difficulty concentrating/remembering/making decisions? No 08/11/2024 documented as of this encounter Miscellaneous Notes * Telephone Encounter - Brooklyn Gill RN - 08/26/2024 12:21 PM CDT RN 48 hour post discharge follow-up contact by telephone: Patient with recent IP discharge from [facility] on 08/25/24 . This RN contacted Bubba by telephone ([phone]) had to speak to the spouse (Dasha) due to patient has a Trach in place to complete 48 hour post-discharge follow-up contact for [facility] appointment. 1) How are you feeling? Per Dasha--Patient reports patient was unable to barely walk when came home yesterday and was surprised that he was discharged yesterday. Patient with Trach collar with 2-6 Liters of oxygen at rest and 6-7 liters with exertion with humidity on at all times. Spouse reports patient does have a aries tube and doesn't have the tube that connects oxygen to the trach? Advised Spouse to call the pcp today to explain situation. Spouse voices understanding. Spouse stated she willlook for the pulse oximeter as well but states patient is doing ok now 2) How is your mobility? Spouse reports patient wasn't able to stand long only enough to use the bathroom 3) New concerns or problems? See above 4) Have you had to go the ER for any reason? no 5) Any questions about your discharge diagnosis and instructions? no 6) Do you have a follow up appointment made? To call pcp today. Offered [facility] appointment. Spouse declined. 7) Do you currently have home health, any questions about home care? no 8) Have you filled all of your RX's? To picker box operator today 9) Any questions or concerns that we can help you with? No, spouse is aware of follow up appointments 10) Do you have transportation for this appointment? N/a Dasha denied any questions related to diet, medications, or condition at this time. Patient was encouraged to call this real estate underwriter with questions, concerns, barriers to care, and/or additional resourcesif needed. Patient verbalized understanding and agreement with plan. This RN will continue to provide post- discharge monitoring until patient completes [facility] clinic follow up. Call Duration: 10 min. Edmond Gill RN, BSN Nurse Navigator, [facility] Office: [phone] 08/26/2024 documented in this encounter Plan of Treatment Not on file documented as of this encounter Visit Diagnoses Not on filedocumented in this encounter Care Teams Finance Consultant Relationship Specialty Start Date End Date Osmar Manley MD [address] [place] [address] PCP - General 07/05/22 documented as of this encounter
--- OUTSIDE RECORDS SUMMARY | 2024-08-27 14:22 | XMS_ITS ---
Author Organization [facility] Address [address] [place] [address] Care Team Providers Care Chief Controller Station Name Role Phone Bronwyn Guardado Unavailable [phone] Kenny Pedro MD Unavailable [phone] Ricardo Pritchard MD Unavailable [phone] Naila Teague Primary Care Provider + Telly Freedman MD Unavailable + Danish Leo MD Unavailable [phone] Braden Griffin MD Unavailable [phone] Isaiah Davis MD Unavailable [phone] Aurelio Stovall MD Unavailable [phone] Parvez Hemphill MD Unavailable [phone] Nel Lamb RN Unavailable Active Problems Problem [...] (06/10/2022): Added automatically from request for surgery [id number] Hyperlipidemia 02/20/2022 Hyperkalemia 02/12/2022 Cardiomegaly 01/17/2022 Hypothyroidism [...] Date Resolved Date [facility] 12/23/2017 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
--- OUTSIDE RECORDS SUMMARY | 2024-08-27 14:22 | XMS_ITS | Encounter Summary ---
Author Organization [facility] Address [address] [place] [address] Care Team Providers Care Patient Monitor Name Role Phone Bronwyn Guardado Unavailable [phone] Kenny Pedro MD Unavailable [phone] Ricardo Pritchard MD Unavailable [phone] Naila Teague Primary Care Provider + Telly Freedman MD Unavailable + Danish Leo MD Unavailable [phone] Braden Griffin MD Unavailable [phone] Isaiah Davis MD Unavailable [phone] Aurelio Stovall MD Unavailable [phone] Parvez Hemphill MD Unavailable [phone] Nel Lamb RN Unavailable [phone] Encounter Details Date Type Department Care Team (Late st Contact Info) Description 05/14/2024 [facility] [address] [facility] [address] [place] [address] Olaf Paiz MD [address] [facility] [address] [place] [address] Social History Tobacco Use Types Packs/Day Years [...] often do you attend chur ch or adventism services? Never 06/07/2022 Do you belong to [...] on filedocumented in this encounter Care Teams Patient Monitor Relationship Specialty Start Date End Date Naila Teague PA [address] [facility] [address] [place] [address] PCP - General Physician Ibm Websphere Commerce Developer 03/15/22 Bronwyn Guardado Au.D. Stove Cleaner Audiology 11/11/17 Kenny Pedro MD [address] [facility] [address] [place] [address] Radiation Oncologist Radiation Oncology 12/23/17 Ricardo Pritchard MD [address] [facility] [address] [place] [address] Medical Oncologist/Telephone Directory Distributor Driver Medical Oncology 12/23/17 Telly Freedman MD [address] [place] [address] Referring Physician Family Medicine 06/17/22 Danish Leo MD [address] [place] [address] Consulting Physician Otolaryngology 10/12/22 Braden Griffin MD [address] [place], [place] [id number] Consulting Physician Cardiology 01/13/24 Isaiah Davis MD [address] [facility] [address] [place] [address] Consulting Physician Nephrology 01/13/24 Aurelio Stovall MD [address] [address] Consulting Physician Pulmonary Disease 01/13/24 Parvez Hemphill MD [facility] [address] [place], [place] [id number] Referring Physician Otolaryngology 01/13/24 Nel Lamb, RN [address] [facility] [address] [place] [address] Mud Mixer Operator 04/16/24 documented as of this encounter
--- OUTSIDE RECORDS SUMMARY | 2024-08-27 14:22 | XMS_ITS | Clinical Summary ---
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 Gender Identity Not on file Sexual Orientation [...] - Popeye risk series) 09/01/2020 08/04/2020 Diabetes: Nephropathy Screening 08/23/2023 08/22/2022, 02/21/2022, 08/23/2021, Additional history exists Respiratory Syncytial Virus (RSV) Immunization (Adult) (1 - Risk 60-74 years 1-dose series) 2024 Influenza Immunization (#1) 2024 05/11/2019, 0 02/18/2018 Diabetes: Hemoglobin A1c 02/12/2025 025, 11/20/2022, 05/09/2016 Pneumococcal Immunization (50+ years) Completed 10/10/2022, 02/18/2018 [...] CDT) Glucose 119(H) 70 - 105 mg/dL [facility] Blood Urea Nitrogen 68(H) 7 - 25 mg/dL [facility] Creatinine 2.7(H) 0.7 - 1.3 mg/dL [facility] Sodium 139 136 - 145 mEq/L [facility] Potassium 4.5 3.5 - 5.1 mEq/L [facility] Chloride 99 98 - 107 mEq/L [facility] Bicarbonate 30 21 - 31 mEq/L [facility] Total Bilirubin 0.5 0.3 - 1.0 mg/dL [facility] Alk. Phosphatase 90 34 - 104 U/L [facility] Aspartate Aminotransferase 21 13 - 39 U/L [facility] Alanine Aminotransferase 16 7 - 52 U/L [facility] Total Protein 6.4 6.4 - 8.9 g/dL [facility] Albumin 3.8 3.5 - 5.7 g/dL [facility] Calcium 10.0 8.6 - 10.3 mg/dL [facility] Anion Gap 14.5 7.0 - 15.0 mEq/L [facility] Globulin 2.6 2.0 - 3.5 g/dL [facility] EGFR 26(L) >60 ml/min/1. 73m2 [facility] Comment: This eGFR is calculated using 2020 CKD-EPI Creatinine equation without race modifier based on the NKF-ASN task force recommendations Blood 08/22/2022 11:0 0 AM CDT Narrative [facility] - 08/22/2022 11:43 AM CDT IS THE PATIENT REQUIRED TO BE FASTING FOR 8 HOURS?->No Release to patient->Immediate Patrick Ingram PAC CHEMISTRY ORDERABLES Final Result [facility] [address] [place] [address], from Last 3 Months or Most Recently Relevant to Health Maintenance Insurance MEDICAID [employer] Advance Directives * Full Code (Latest Code Status on File) Date Activated Date Inactivated Comments 07/26/2015 10:53 AM Care Teams Environmental Technology Professor Relationship Specialty Start Date End Date Osmar Manley MD [address] [place] [address] PCP - General Geriatric Medicine 08/20/24 Dave Squires MD [address] [place] [id number] Consulting Physician Oncology 09/15/19
--- OUTSIDE RECORDS SUMMARY | 2024-08-27 14:22 | XMS_ITS | Data Portability ---
Author Organization [facility] Address [address] [place] [address] Care Team Providers Care Registered Medical Transcriptionist Name Role Phone RICHIE RICO Primary Care Provider [phone] Assessment Encounter Date Assessment Date Assessment LastModified by Organization Details LastModified Time 07/30/2022 07/30/2022 denies smoking. smells like cigarette smoke Not available 08/02/2022 12:47:57 08/05/2023 08/05/2023 declines labs today as just did labs at [facility] [employer] [facility]. scheduled for one month for f/u and labs here. will request Not available 08/07/2023 08:18:55 Plan of Treatment Reminders Order Date Submit Date Provider Last Modified By Organization Details Last Modified Time Details Appointments ANNUAL 30 2024 11:15A MATHEUS SAUL Not available Not available Not available Lab CMP, serum or plasma 2022 023 JAVIER NICE, [address], [address], [place], [address], 02/20/2023 16:43:53 TSH + free T4, serum 2022 023 JAVIER NICE, [address], [address], [place], [address], 02/22/2023 08:32:49 CMP, serum or plasma 2022 023 JAVIER NICE, [address], [address], [place], [address], 12/13/2022 08:28:34 lipid panel, serum 2022 023 JAVIER [facility], [address], [address], [place], [address], 12/13/2022 08:28:33 albumin/c reatinine , mass ratio, urine 2022 023 JAVIER [facility], [address], [address], [place], [address], 12/13/2022 08:28:36 HbA1c (hemoglob in A1c), blood 2022 023 JAVIER [facility], [address], [address], [place], [address], 12/13/2022 08:28:38 TSH + free T4, serum 2022 023 JAVIER [facility], [address], [address], [place], [address], 12/13/2022 08:28:37 TSH + free T4, serum 2022 023 [place] [address] [facility], [address], [address], [place], [address], 10/10/2022 16:21:02 CMP, serum or plasma 2022 023 JAVIER [facility], [address], [address], [place], [address], 07/31/2022 12:13:14 CBC w/ auto diff 2022 023 JAVIER [facility], [address], [address], [place], [address], 07/31/2022 12:13:15 HbA1c (hemoglob in A1c), blood 2022 023 JAVIER In-Office Order, Internal Use Only DO Not Attach Compendium DO Not Attach Compendium, Do Not Delete/merge, [id number] 07/30/2022 14:46:47 TSH + free T4, serum 2022 023 JAVIER [facility], [address] [facility], [address], [place], [address], 07/31/2022 08:24:01 Referral physical therapist referral - PT low back pain 2023 024 [facility], [address] [place], [address], 09/19/2023 14:27:49 gastroent erologist referral - needs feeding tube removed 2022 023 Ayleen Mckeon MD, [address], [place], [address], 02/20/2023 16:56:13 endocrino logy referral 2022 023 [facility] - Endocr[facility]ology , [address], [address], [place], [address], 12/25/2022 17:00:28 physical therapist referral [address] [facility] (Outpatient Physical Therapy), [address], [place], [address], 11/14/2022 16:00:55 pulmonolo gist referral - patient [facility] for acute hypoxemic resp failure from 05/2022- 06/18/2022 . He is on 3L oxygen daytime and 6L night time. needs to be seen the sooner available 2022 023 osmany Stovall, [address] [place] [address] [address], [place], [address], 08/27/2022 09:13:52 general surgeon referral - needs to see surgeon who placed his PEG tube 2022 023 [facility] [address] , [place], [address], 10/25/2022 10:54:39 Procedures None recorded. Surgeries None recorded. Imaging XR, lumbar spine [address] (Radiology), [address] [place], [address], 11/11/2023 07:56:59 XR, chest, 2 view [address] ([facility] Scheduling), [address] [place], [address], 02/20/2023 16:56:13 Medication Orders levothyro xine 175 mcg tablet 2022 023 [email or web address], [email or web address], [address], [address], [place], [address], 02/24/2023 08:26:22 levothyro xine 175 mcg tablet 2022 023 [email or web address], [email or web address], [address], [address], [place], [address], 12/16/2022 09:27:14 Patient TargetsNo targets recorded. Patient Instructions Encounter Date Encounter Id Patient Instructions Last Modified By Organization Details Last Modified Time 07/30/2022 [id number] A healthy lifestyle: care instructions Not available 07/30/2022 14:19:14 12/12/2022 [id number] I have reviewed the patient's medical record [...] Not available 12/16/2022 11:10:13 Reason for Referral Kettle Hand Referral for A cute hypoxemic respiratory failure [...] Physician: General Vale Gallardo, Encounter Date: 12/12/2022 Cancer Program Coordinator Referral for Tube feeding diet needs feeding [...] rmed on dilut ion. Not Available [facility] ([facility]) [address] [place], [address], 07/31/2022 08:24:01 07/30/1907/31/2022 TSH+F REE T4 T4,free(dire ct) 0.58 NG/dL 0.82-1 .77 below low normal Not Available [facility] ([facility]) [address] [facility], [place], [address], 07/31/2022 08:24:01 07/30/19 23 07/31/2022 COMP. METAB OLIC PANEL (14) glucose 143 mg/dL 65-99 above high normal ANION GP 15.0 mmol/ L N OSMOL 297.0 mOsM/ L N REFER ENCE RANGE : 275.0 -301. 0 Not Available [facility] [address] [place], [address], 07/31/2022 12:13:14 07/30/19 23 07/31/2022 COMP. METAB OLIC PANEL (14) BUN 70 mg/dL 8-26 panic high Not Available [facility] [address] [place], [address], 07/31/2022 12:13:14 07/30/19 23 07/31/2022 COMP. METAB OLIC PANEL (14) creatinine 2.52 mg/dL 0.50-1 .40 above high normal Not Available [facility] [address] [place], [address], 07/31/2022 12:13:14 07/30/19 23 07/31/2022 COMP. METAB OLIC PANEL (14) eGFR 29 mL/mi n/1.7 3 >=60 below low normal Not Available [facility] [address] [place], [address], 07/31/2022 12:13:14 07/30/19 23 07/31/2022 COMP. METAB OLIC PANEL (14) BUN/creatini ne ratio 27.7 Not Available [facility] [address] [place], [address], 07/31/2022 12:13:14 07/30/19 23 07/31/2022 COMP. METAB OLIC PANEL (14) sodium 136.9 mmol/ L 136.0- 144.0 Not Available [facility] [address] [place], [address], 07/31/2022 12:13:14 07/30/19 23 07/31/2022 COMP. METAB OLIC PANEL (14) potassium 4.7 mmol/ L 3.5-5. 3 Not Available [facility] [address] [place] [address], [address], 07/31/2022 12:13:14 07/30/19 23 07/31/2022 COMP. METAB OLIC PANEL (14) chloride 98 mmol/ l 101-11 1 below low normal Not Available [facility] [address] [place] [address], [address], 07/31/2022 12:13:14 07/30/19 23 07/31/2022 COMP. METAB OLIC PANEL (14) carbon dioxide, total 28.8 mmol/ L 21.0-3 2.0 Not Available [facility] [address] [place] [address], [address], 07/31/2022 12:13:14 07/30/19 23 07/31/2022 COMP. METAB OLIC PANEL (14) calcium 10.1 mg/dL 8.2-10 .0 above high normal Not Available [facility] [address] [place], [address], 07/31/2022 12:13:14 07/30/19 23 07/31/2022 COMP. METAB OLIC PANEL (14) protein, total 6.7 g/dL 6.7-8. 2 Not Available [facility] [address] [place] [address], [address], 07/31/2022 12:13:14 07/30/19 23 07/31/2022 COMP. METAB OLIC PANEL (14) albumin 3.8 g/dL 3.5-5. 5 Not Available [facility] [address] [place], [address], 07/31/2022 12:13:14 07/30/19 23 07/31/2022 COMP. METAB OLIC PANEL (14) globulin, total 2.9 g/dL 1.5-4. 5 Not Available [facility] [address] [place], [address], 07/31/2022 12:13:14 07/30/19 23 07/31/2022 COMP. METAB OLIC PANEL (14) A/G ratio 1.4 Not Available [facility] [address] [place], [address], 07/31/2022 12:13:14 07/30/19 23 07/31/2022 COMP. METAB OLIC PANEL (14) bilirubin, total 0.3 mg/dL 0.0-1. 2 Not Available [facility] [address] [place], [address], 07/31/2022 12:13:14 07/30/19 23 07/31/2022 COMP. METAB OLIC PANEL (14) alkaline phosphatase 91.4 IU/L 42.0-1 21.0 Not Available [facility] [address] [place], [address], 07/31/2022 12:13:14 07/30/19 23 07/31/2022 COMP. METAB OLIC PANEL (14) AST (SGOT) 22.9 U/L 10.0-4 2.0 Not Available [facility] [address] [place] [address], [address], 07/31/2022 12:13:14 07/30/19 23 07/31/2022 COMP. METAB OLIC PANEL (14) ALT (SGPT) 15.8 U/L 10.0-6 0.0 Not Available [facility] [address] [place], [address], 07/31/2022 12:13:14 07/30/19 23 07/30/2022 CBC WITH DIFFE RENTI AL/PL ATELE T WBC 5.5 K/uL 3.4-10 .8 Not Available [facility] [address] [place] [address], [address], 07/31/2022 12:13:15 07/30/19 23 07/30/2022 CBC WITH DIFFE RENTI AL/PL ATELE T RBC 4.2 M/uL 4.5-6. 3 below low normal Not Available [facility] [address] [place], [address], 07/31/2022 12:13:15 07/30/19 23 07/30/2022 CBC WITH DIFFE RENTI AL/PL ATELE T hemoglobin 12.9 g/dL 13.5-1 7.5 below low normal Not Available [facility] [address] [place], [address], 07/31/2022 12:13:15 07/30/19 23 07/30/2022 CBC WITH DIFFE RENTI AL/PL ATELE T hematocrit 39.6 % 40.0-5 2.0 below low normal Not Available [facility] [address] [facility], [place], [address], 07/31/2022 12:13:15 07/30/19 23 07/30/2022 CBC WITH DIFFE RENTI AL/PL ATELE T MCV 93 fL 80-95 Not Available [facility] [address] [place], [address], 07/31/2022 12:13:15 07/30/19 23 07/30/2022 CBC WITH DIFFE RENTI AL/PL ATELE T MCH 30 pg 27-32 Not Available [facility] [address] [place], [address], 07/31/2022 12:13:15 07/30/19 23 07/30/2022 CBC WITH DIFFE RENTI AL/PL ATELE T MCHC 33 g/dL 32-36 Not Available [facility] [address] [place], [address], 07/31/2022 12:13:15 02/28/07/30/2022 CBC WITH DIFFE RENTI AL/PL ATELE T RDW 14.9 % 11.5-1 4.5 above high normal Not Available [facility] [address] [place], [address], 07/31/2022 12:13:15 07/30/19 23 07/30/2022 CBC WITH DIFFE RENTI AL/PL ATELE T platelets 178 K/uL 155-37 9 MPV 13.0 FL 8.9-1 2.7 H Not Available [facility] [address] [place], [address], 07/31/2022 12:13:15 07/30/1907/30/2022 CBC WITH DIFFE RENTI AL/PL ATELE T neutrophils 62.9 % 40.0-7 4.0 Not Available [facility] [address] [place], [address], 07/31/2022 12:13:15 07/30/19 23 07/30/2022 CBC WITH DIFFE RENTI AL/PL ATELE T lymphs 23.8 % 14.0-4 6.0 Not Available [facility] [address] [place], [address], 07/31/2022 12:13:15 07/30/19 23 07/30/2022 CBC WITH DIFFE RENTI AL/PL ATELE T monocytes 8.6 % 4.0-12 .0 Not Available [facility] [address] [place], [address], 07/31/2022 12:13:15 07/30/1907/30/2022 CBC WITH DIFFE RENTI AL/PL ATELE T eos 3 % 0-5 Not Available [facility] [address] [place], [address], 07/31/2022 12:13:15 07/30/19 23 07/30/2022 CBC WITH DIFFE RENTI AL/PL ATELE T basos 0.9 % 0.0-1. 0 Not Available [facility] [address] [place], [address], 07/31/2022 12:13:15 07/30/19 23 07/30/2022 CBC WITH DIFFE RENTI AL/PL ATELE T neutrophils (absolute) 3.4 K/uL 1.4-7. 0 Not Available [facility] [address] [place], [address], 07/31/2022 12:13:15 07/30/19 23 07/30/2022 CBC WITH DIFFE RENTI AL/PL ATELE T lymphs (absolute) 1.3 K/uL 0.7-3. 1 Not Available [facility] [address] [place], [address], 07/31/2022 12:13:15 07/30/19 23 07/30/2022 CBC WITH DIFFE RENTI AL/PL ATELE T monocytes(ab solute) 0.5 K/uL 0.1-0. 9 Not Available [facility] [address] [place], [address], 07/31/2022 12:13:15 07/30/19 23 07/30/2022 CBC WITH DIFFE RENTI AL/PL ATELE T eos (absolute) 0.2 K/uL 0.0-0. 4 Not Available [facility] [address] [place], [address], 07/31/2022 12:13:15 07/30/19 23 07/30/2022 CBC WITH DIFFE RENTI AL/PL ATELE T baso (absolute) 0.1 K/uL 0.0-0. 3 Not Available [facility] [address] [place], [address], 07/31/2022 12:13:15 07/30/19 23 07/30/2022 CBC WITH DIFFE RENTI AL/PL ATELE T immature granulocytes 1.1 % Not Available [facility] [address], [place], [address], 07/31/2022 12:13:15 07/30/19 23 07/30/2022 CBC WITH DIFFE RENTI AL/PL ATELE T immature grans (abs) 0.1 K/uL Not Available [facility] [address] [facility], [place], [address], 07/31/2022 12:13:15 07/30/19 23 07/30/2022 CBC WITH DIFFE RENTI AL/PL ATELE T NRBC 0 % Not Available [facility] [address] [facility], [place], [address], 07/31/2022 12:13:15 07/30/19 23 07/30/2022 HbA1c (hemo globi n A1c), blood HbA1c 5.2% Not Available In-Office Order Internal Use Only DO Not Attach Compendium DO Not Attach Compendium, Do Not Delete/merge, [id number] 07/30/2022 14:39:43 12/13/19 23 12/13/2022 LIPID PANEL cholesterol, total 185 mg/dL 100-19 9 Not Available [facility] ([facility]) [address] [place], [address], 12/13/2022 08:28:33 12/13/19 23 12/13/2022 LIPID PANEL triglyceride s 110 mg/dL 0-149 Not Available [facility] ([facility]) [address] [place], [address], 12/13/2022 08:28:33 12/13/19 23 12/13/2022 LIPID PANEL HDL cholesterol 65 mg/dL >39 Not Available [facility]) [address] [place], [address], 12/13/2022 08:28:33 12/13/19 23 12/13/2022 LIPID PANEL VLDL cholesterol brando 20 mg/dL 5-40 Not Available [facility] ([facility]) [address] [place], [address], 12/13/2022 08:28:33 12/13/19 23 12/13/2022 LIPID PANEL LDL chol calc ([facility]) 100 mg/dL 0-99 above high normal Not Available [facility] ([facility]) [address] [place], [address], 12/13/2022 08:28:33 12/13/19 23 12/13/2022 COMP. METAB OLIC PANEL (14) glucose 100 mg/dL 70-99 above high normal Not Available [facility] ([facility]) [address] [place], [address], 12/13/2022 08:28:34 12/13/19 23 12/13/2022 COMP. METAB OLIC PANEL (14) BUN 78 mg/dL 6-24 alert high Not Available [facility] ([facility]) [address] [place], [address], 12/13/2022 08:28:34 12/13/19 23 12/13/2022 COMP. METAB OLIC PANEL (14) creatinine 3.09 mg/dL 0.76-1 .27 above high normal Not Available [facility] ([facility]) [address] [place], [address], 12/13/2022 08:28:34 12/13/19 23 12/13/2022 COMP. METAB OLIC PANEL (14) eGFR 23 mL/mi n/1.7 3 >59 below low normal Not Available [facility] ([facility]) [address] [place], [address], 12/13/2022 08:28:34 12/13/19 23 12/13/2022 COMP. METAB OLIC PANEL (14) BUN/creatini ne ratio 25 9-20 above high normal Not Available [facility] ([facility]) [address] [place], [address], 12/13/2022 08:28:34 12/13/19 23 12/13/2022 COMP. METAB OLIC PANEL (14) sodium 137 mmol/ L 134-14 4 Not Available [facility] ([facility]) [address] [facility], [place], [address], 12/13/2022 08:28:34 12/13/19 23 12/13/2022 COMP. METAB OLIC PANEL (14) potassium 4.8 mmol/ L 3.5-5. 2 Not Available [facility] ([facility]) [address] [facility], [place], [address], 12/13/2022 08:28:34 12/13/19 23 12/13/2022 COMP. METAB OLIC PANEL (14) chloride 99 mmol/ L 96-106 Not Available [facility] ([facility]) [address] [facility], [place], [address], 12/13/2022 08:28:34 12/13/19 23 12/13/2022 COMP. METAB OLIC PANEL (14) carbon dioxide, total 20 mmol/ L 20-29 Not Available [facility] ([facility]) [address] [facility], [place], [address], 12/13/2022 08:28:34 12/13/19 23 12/13/2022 COMP. METAB OLIC PANEL (14) calcium 9.9 mg/dL 8.7-10 .2 Not Available [facility] ([facility]) [address] [facility], [place], [address], 12/13/2022 08:28:34 12/13/19 23 12/13/2022 COMP. METAB OLIC PANEL (14) protein, total 6.7 g/dL 6.0-8. 5 Not Available [facility] ([facility]) [address] [facility], [place], [address], 12/13/2022 08:28:34 12/13/19 23 12/13/2022 COMP. METAB OLIC PANEL (14) albumin 4.1 g/dL 3.8-4. 9 Ple ase note refer ence isa andino Not Available [facility] ([facility]) [address] [facility], [place], [address], 12/13/2022 08:28:34 12/13/19 23 12/13/2022 COMP. METAB OLIC PANEL (14) globulin, total 2.6 g/dL 1.5-4. 5 Not Available [facility] ([facility]) [address] [facility], [place], [address], 12/13/2022 08:28:34 12/13/19 23 12/13/2022 COMP. METAB OLIC PANEL (14) A/G ratio 1.6 1.2-2. 2 Not Available [facility] ([facility]) [address] [facility], [place], [address], 12/13/2022 08:28:34 12/13/19 23 12/13/2022 COMP. METAB OLIC PANEL (14) bilirubin, total 0.2 mg/dL 0.0-1. 2 Not Available [facility] ([facility]) [address] [facility], [place], [address], 12/13/2022 08:28:34 12/13/19 23 12/13/2022 COMP. METAB OLIC PANEL (14) alkaline phosphatase 84 IU/L 44-121 Not Available [facility] ([facility]) [address] [facility], [place], [address], 12/13/2022 08:28:34 12/13/19 23 12/13/2022 COMP. METAB OLIC PANEL (14) AST (SGOT) 16 IU/L 0-40 Not Available [facility] ([facility]) [address] [facility], [place], [address], 12/13/2022 08:28:34 12/13/19 23 12/13/2022 COMP. METAB OLIC PANEL (14) ALT (SGPT) 10 IU/L 0-44 Not Available [facility] ([facility]) [address] [place], [address], 12/13/2022 08:28:34 12/13/19 23 12/13/2022 ALBUM IN/CR EATIN INE RATIO ,URIN E creatinine, urine 142.7 mg/dL notest ab. Not Available [facility] ([facility]) [address] [place], [address], 12/13/2022 08:28:36 12/13/19 23 12/13/2022 ALBUM IN/CR EATIN INE RATIO ,URIN E albumin, urine 1855.3 ug/mL notest ab. Resul ts confi rmed on dilut ion. Not Available [facility] ([facility]) [address] [facility], [place], [address], 12/13/2022 08:28:36 12/13/19 23 12/13/2022 ALBUM IN/CR EATIN INE RATIO ,URIN E alb/creat ratio 1300 mg/g_ creat 0-29 above high normal Brii l: 0 - 29 Moder ately incre ased: 30 - 300 Sever kanchan incre ased: >300 Not Available [facility] ([facility]) [address] [place], [address], 12/13/2022 08:28:36 12/13/19 23 12/13/2022 TSH+F REE T4 TSH 163.00 0 uIU/m L 0.450- 4.500 above high normal Resul ts confi rmed on dilut ion. Not Available [facility] ([facility]) [address] [place], [address], 12/13/2022 08:28:37 12/13/19 23 12/13/2022 TSH+F REE T4 T4,free(dire ct) 0.66 NG/dL 0.82-1 .77 below low normal Not Available [facility] ([facility]) [address] [place], [address], 12/13/2022 08:28:37 12/13/1912/13/2022 HEMOG LOBIN A1C hemoglobin A1C 5.2 % 4.8-5. 6 Predi abete s: 5.7 - 6.4 Diabe edilma: >6.4 Glyce stalin contr ol for adult s with diabe edilma: <7.0 Not Available [facility] ([facility]) [address] [place], [address], 12/13/2022 08:28:38 02/21/2002/22/2023 TSH+F REE T4 TSH 11.200 uIU/m L 0.450- 4.500 above high normal Not Available [facility] ([facility]) [address] [place], [address], 02/22/2023 08:32:49 02/21/2002/22/2023 TSH+F REE T4 T4,free(dire ct) 1.53 NG/dL 0.82-1 .77 Not Available [facility] ([facility]) [address] [place], [address], 02/22/2023 08:32:49 Result Notes None recorded. 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 Not Available [facility] 4 18:29:33 Screening for malignant neoplasm of respirato ry tract Active 2021 Not Available [facility] 4 18:29:33 Amputated big toe 095952772 Active 2021 [facility] Available [facility] 4 18:29:33 Hospital inpatient stay within past 30 days 91545682564 06 Active 2022 Not Available [facility] 4 18:29:33 Serum thyroid stimulati ng hormone level outside reference range 572493200 Active 2022 Not Available [facility] 4 18:29:33 Wheezing 91087303 Active 2022 Not Available [facility] 4 18:29:33 Falls 903734891 Active 2022 Not Available [facility] 4 18:29:33 History of laryngect bernarda 062628940 Active 2022 Not Available [facility] 4 18:29:33 Chronic kidney disease 858896663 Active 2022 Not Available [facility] 4 18:29:33 Type 2 diabetes mellitus 18904237 Active 2022 Not Available [facility] 4 18:29:33 Edema of lower extremity 060173358 Active 2022 Not Available [facility] 4 18:29:33 Low back pain 824927602 Active 2023 MATHEUS GALLARDO Attn: Accounting ,[address] [place], [place], [address] [place] [address] , [place] [facility] 4 17:04:39 Heart failure 99878149 Active 2023 MATHEUS GALLARDO Attn: Accounting ,[address] [place], [place], [address] [place] [address] , [place] [facility] 4 17:04:40 End stage renal failure on dialysis 366219357 Active 2023 MATHEUS GALLARDO Attn: Accounting ,[address] [place], [place], [address] [place] [address] , [place] [facility] 4 17:04:55 Diabetes mellitus 97784283 Active Not Available [facility] 4 18:29:33 Celluliti s and abscess of toe 943721507 Completed 02/18/2018 ROSANNA Herrera NP Attn: Accounting ,[address] [place], [place], [address] [place] [address] , [place] [facility] 8 15:14:40 Chronic obstructi ve pulmonary disease 25038301 Active Not Available [facility] 4 18:29:33 Tobacco dependenc e syndrome 98247920 Completed 02/18/2018 ROSANNA Herrera NP Attn: Accounting ,[address] [place], [address] , [facility] 8 15:14:51 Hyperlipi demia 69594853 Active Not Available [facility] 4 18:29:33 Hypertens jarad disorder 49874068 Active Not Available [facility] 4 18:29:33 Acute osteomyel itis of foot 572841786 Active Not Available [facility] 4 18:29:33 Acute osteomyel itis of ankle and/or foot 249461664 Completed 02/18/2018 ROSANNA Herrera NP Attn: Accounting ,[address] [place], [address] , [facility] 8 15:14:37 Foot pain 82796874 Completed 02/18/2018 ROSANNA Herrera NP Attn: Accounting ,[address] [place], [address] , [facility] 8 15:14:47 Osteomyel itis of ankle AND/OR foot 43306914 Completed 02/18/2018 ROSANNA Herrera NP Attn: Accounting ,[address] [place], [address] , [facility] 8 15:14:44 Acute pharyngit is 978674378 Completed 02/18/2018 ROSANNA Herrera NP Attn: Accounting ,[address] [place], [address] , [facility] 8 15:14:31 Notes:Some problems listed i n Document: #[id number] could not be added to this patient's chart. Please review this document and add these problems to the patient's chart manually as needed. Problem Notes None recorded. Procedures Surgical History Date Name Laterality Status Provider Name and Address Organization Details Recorded Time 03/18/20 Flexible Laryngoscopy completed Bubba Vizcaino MD [address] [place], [address], [facility] 03/18/2019 16:31:31 Imaging Results None [...] TAKE 1 TABLET BY MOUTH EVERY DAY 2024 active Not Available Not Available Not Avai lable albuterol sulfate 0.63 mg/3 mL solution for [...] 1 TABLET BY MOUTH TWICE A DAY 2024 active Not Available Not Available Not Avai lable ipratropium 0.5 mg-albutero l 3 mg (2.5 mg base)/3 mL nebulizatio n soln active Not Available Not Available Not Available azithromyci n 250 mg tablet 03/21 completed Not Available Not Available Not Available pravastatin 40 mg tablet TAKE 1 TABLET BY MOUTH EVERY DAY 2024 active Not Available Not Available Not Avai lable benzonatate 200 mg capsule TAKE ONE CAPSULE [...] tablet TAKE 1 TABLET BY MOUTH DAILY 2024 active Not Available Not Available Not Avai lable alprazolam 0.25 mg tablet TAKE 2 TABLETS [...] TAKE 1 TABLET BY MOUTH EVERY DAY. 2024 active Not Available Not Available Not Avai lable levothyroxi ne 50 mcg tablet TAKE 1 [...] TAKE 1 TABLET BY MOUTH EVERY DAY 2024 active Not Available Not Available Not Avai lable Avandia 4 mg tablet TAKE 1 TABLET BY MOUTH EVERY DAY 05/11 completed Not Available Not Available Not Available losartan 100 mg tablet TAKE 1 TABLET BY MOUTH EVERY DAY 2024 active Not Available Not Available Not Avai [...] Updated DateTime 3 177.8 cm 28.7 kg/m2 53992.4 7 g 101 /min 93 % 93 % 144 mm[Hg] 90 mm[Hg] Brigitte Solis MA [facility] 3 14:15:17 Date Recorded Body height Body mass index (BMI) Body weight Systolic blood pressure Diastolic blood pressure Provider Name and Address Organization Details Last Updated DateTime 10/10/2022 177.8 cm 27.1 kg/m2 58165.96 g 138 mm[Hg] 80 mm[Hg] Brigitte Solis MA [facility] 3 15:45:36 Date Recorded Oxygen saturation Oxygen saturation in Arterial blood by Pulse oximetry Heart rate Respiratory rate Provider Name and Address Organization Details Last Updated DateTime 10/10/2022 96 % 96 % 90 /min 14 /min MATHEUS GALLARDO Attn: Dasha wright,[address] [facility], [place], [address], [facility] 3 16:22:37 Date Recorded Body height Body mass index (BMI) Body weight Oxygen saturation Oxygen saturation in Arterial blood by Pulse oximetry Systolic blood pressure Diastolic blood pressure Provider Name and Address Organization Details Last Updated DateTime 3 177.8 cm 24.8 kg/m2 38390.4 8 g 97 % 97 % 132 mm[Hg] 80 mm[Hg] Brigitte Solis MA [facility] 3 10:48:06 Date Recorded Heart rate Provider Name an d Address Organization Details Last Updated DateTime 12/12/2022 96 /min Iglesia GALLARDO Attn: Accounting,[address] [place], [address], [facility] 12/16/2022 09:22:28 Date Recorded Body height Oxygen saturation Oxygen saturation in Arterial blood by Pulse oximetry Heart rate Body mass index (BMI) Body weight Systolic blood pressure Diastolic blood pressure Provider Name and Address Organization Details Last Updated DateTime 3 177.8 cm 97 % 97 % 60 /min 30 kg/m2 05716.8 1 g 124 mm[Hg] 72 mm[Hg] Brigitte Solis MA [facility] 3 16:06:30 Date Recorded Body height Body mass index (BMI) Body weight Heart rate Oxygen saturation Oxygen saturation in Arterial blood by Pulse oximetry Provider Name and Address Organization Details Last Updated DateTime 4 177.8 cm 33.3 kg/m2 834415. 43 g 72 /min 98 % 98 % Brigitte Solis MA [facility] 4 15:43:21 Date Recorded Systolic blood pressure Diastolic blood pressure Provider Name and Address Organization Details Last Updated DateTime 08/05/2023 132 mm[Hg] 84 mm[Hg] MATHEUS GALLARDO Attn: Accounting, [place], [address], [facility] 08/07/2023 08:19:58 Social History Question Answer Notes LastModified by Organizat ion Details LastModified Time Tobacco Smoking Status Former Smoker Quit 2016 Margarita Cervantes MA null, [facility] 12/13/2019 11:12:59 Do You Have An Advance [...] Anxious, Or Unable To Sleep At Night)? [id number] Information not available 11/01/2020 Do You Use [...] Eating Disorder N Anemia N Heart Attack ([place]) N Anxiety Disorder N Diabetes Y Muscle, [...] PF, 0.5 mL 1 completed Not Available [facility] 06/30/2023 18:29:34 Influenza, split virus, quadrivalent, PF 8 completed Not Available [facility] 06/19/2019 02:35:58 pneumococcal polysaccharide PPV23 8 completed Not Available [facility] 06/19/2019 02:36:24 Influenza, split virus, quadrivalent, preservative 9 completed Not Available [facility] 06/19/2019 02:38:49 Pneumococcal conjugate PCV20, polysaccharide [id number] conjugate, adjuvant, PF 3 completed MATHEUS GALLARDO Attn: Accounting,[address] [place], [address], [facility] 10/10/2022 16:21:02 Tdap 3 completed Shashi Pandey MD Attn: Accounting,[address] [place], [address], [facility] 12/16/2022 11:06:47 Past Encounters Encounter ID Performer Location Encounter Start Date Encounter Closed Date Diagnosis/Indication Diagnosis SNOMED-CT Code Diagnosis ICD10 Code Diagnosis Note [id number] Osmar Manley MD [facility] (Adult Med) [address] [place], [place] [address] 07/14/2015 14:10:04 07/14/2015 15:25:50 Diabetes mellitus 71557623 E13.65 Cellulitis and abscess of toe 186720229 M79.675 Chronic ob structive pulmonary disease 32411895 J44.9 Tobacco de pendence syndrome 98093525 F17.290 Hyperlipidemia 24329412 E78.5 Hypertensive disorder 38 591628 I10 [id number] Enriqueta Mark anaya [facility] (Adult Med) [address] [place] [address] 08/03/2015 15:34:34 08/04/2015 17:17:33 Diabetes mellitus 62122240 E13.65 Acute oste omyelitis of ankle and/or foot 581534906 M86.179 Chronic ob structive pulmonary disease 97924493 J44.9 Hypertensive disorder 38 022775 I10 Tobacco de pendence syndrome 70730408 F17.290 Hyperlipidemia 77731518 E78.5 [id number] Osmar Manley MD [facility] (Adult Med) [address] [place] [address] 09/14/2015 15:08:31 09/14/2015 15:31:36 Diabetes mellitus 55545954 E13.65 Acute oste omyelitis of foot 618732636 M86.179 Chronic ob structive pulmonary disease 36700191 J44.9 Hyperlipidemia 91737310 E78.5 [id number] Osmar Manley MD [facility] (Adult Med) [address] [place] [address] 11/02/2015 11:52:57 11/02/2015 14:00:53 Chronic obstructive pulmonary disease 51468397 J44.9 Diabetes mellitus 885548 09 E13.65 Hyperlipidemia 06871542 E78.5 Tobacco de pendence syndrome 53440970 F17.290 Acute oste omyelitis of foot 611085256 M86.179 [id number] [facility] [address] [place] [address] 11/28/2015 15:15:45 11/28/2015 16:10:54 Diabetes mellitus 24638473 E13.65 Acute oste omyelitis of foot 741301139 M86.179 Chronic ob structive pulmonary disease 89627552 J44.9 Tobacco de pendence syndrome 61381169 F17.290 [id number] [facility] [address] [place] [address] 01/23/2016 15:10:01 01/23/2016 18:08:24 Diabetes mellitus 05466741 E13.65 Acute oste omyelitis of foot 714709751 M86.179 Hypertensive disorder 38 037405 I10 Chronic ob structive pulmonary disease 38750249 J44.9 Tobacco de pendence syndrome 87568443 F17.834 [id number] Enriqueta Flores is [facility] (Adult Med) [address] [place] [address] 02/27/2016 15:32:49 02/27/2016 18:26:04 Diabetes mellitus 12522875 E13.65 Acute oste omyelitis of foot 876831813 M86.179 Chronic ob structive pulmonary disease 48449502 J44.9 Hyperlipidemia 53807488 E78.5 Tobacco de pendence syndrome 49906234 F17.131 [id number] ROSANNA Herrera NP [facility] [address] [place] [address] 02/18/2018 13:47:25 02/18/2018 16:30:25 Hypertensive disorder 02960310 I10 -Renew medication -Obtain CMP Diabetes mellitus 425499 09 E11.9 -Obtain labs-Jonna nue medication Hyperlipidemia 02788135 E78.5 -Continue medication -Obtain lab Active or passive immunization 438918622 Z23 -Fluzone and pneumovax given as ordered Screening for malignant neoplasm of colon 164066562 Z12.11 Diabetic foot ulcer 3710 75044 E11.40 -Start oral antibiotic s-Refer to podiatry-K eep area clean and covered-F/ u prn Hypothyroidism 39112717 E03.9 -Renew medication Anemia 827473066 D64.9 -Renew medication [id number] ROSANNA Herrera NP [facility] [address] [place] [address] 05/20/2018 15:18:12 05/20/2018 15:58:08 Hypertensive disorder 90919479 I10 -Obtain CMP-Contin ue medication Diabetes mellitus 480153 09 E11.9 -Obtain labs-Jonna nue medication Hyperlipidemia 21457123 E78.5 -Continue medication -Obtain lab Hypothyroidism 90394868 E03.9 -Obtain lab [id number] Linda Thao MA [facility] [address] [place] [address] 05/29/2018 10:03:06 05/29/2018 11:23:06 [id number] Kenzie Cabrera MD [facility] [address] [place] [address] 11/05/2018 15:58:27 11/16/2018 08:50:49 History of malignant neoplasm of trachea 583685352 Z85.12 Chronic ki dney disease 223564462 N18.9 Renal diso rder due to type 2 diabetes mellitus 630548846 E11.22 [id number] Bubba Vizcaino MD [facility] [address] [place] [address] 01/18/2019 12:03:51 03/18/2019 16:17:31 Hyperlipidemia 60678327 E78.5 [id number] Bubba Vizcaino MD [facility] [address] [place] [address] 03/18/2019 15:29:53 03/22/2019 15:48:46 Primary malignant neoplasm of supraglottis 22654305 C32.1 no recurrence follow in 6 months get old records [id number] Kenzie Cabrera MD [facility] [address] [place] [address] 05/11/2019 16:33:48 05/18/2019 08:37:08 Administration of influenza vaccine 98563333 Z23 Diabetes mellitus 515825 09 E11.22 generally under 200. Sees Ryan Carter for kidney problems. Hypothyroidism 62043666 E03.9 Essential hypertension 26534541 I10 Sleep apnea 03291154 G47 .30 Depression screening 171 883071 Z13.31 patient does not appear to be significan tly depressed. [id number] Bubba Vizcaino MD [facility] [address] [place] [address] 09/02/2019 09:14:57 10/05/2019 15:46:01 History of malignant neoplasm of larynx 908445662 Z85.21 follow after coronaviru s clears [id number] Kenzie Cabrera MD [facility] [address] [place] [address] 10/27/2019 09:36:35 11/02/2019 07:20:03 Hypertensive disorder 11475991 I10 Patient advised to limit salt and caffeine intake to maintain good blood pressure. Hypothyroidism 92857774 E03.9 will adjust medicine if TSH is not normal. Type 2 hermes betes mellitus 57904165 E11.65 Patient seems to have well controlled diabetes. discussed low fat, low carb diet, and encouraged exercise. Mixed hype rlipidemia due to type 2 diabetes mellitus 4017181011 03 E78.2 will consider raising dose if lipids are elevated [id number] Kenzie Cabrera MD [facility] [address] [place] [address] 12/13/2019 09:54:25 12/20/2019 08:04:31 Migraine 79703153 G43.909 Heat exhaustion 41213123 T67.5XXD [id number] Kenzie Cabrera MD [facility] [address] [place] [address] 08/14/2020 08:07:53 08/22/2020 21:52:13 Hypertensive disorder 00370962 I10 Patient advised to limit salt and caffeine intake to maintain good blood pressure. Hypothyroidism 88929080 E03.9 Type 2 hermes betes mellitus 73094030 E11.65 Patient seems to have well controlled diabetes. discussed low fat, low carb diet, and encouraged exercise. Mixed hype rlipidemia due to type 2 diabetes mellitus 2772713034 03 E78.2 [id number] Kenzie Cabrera MD [facility] [address] [place] [address] 11/01/2020 08:07:38 11/09/2020 07:33:14 Depression screening 666061504 Z13.31 patient does not appear to be significan tly depressed. Acute bronchitis 1084740 2 J20.9 Patient advised he may have had coronaviru s, even though he did get vaccinated on 08-04-2020. He took azithromyc in with improvemen t in symptoms. Type 2 hermes betes mellitus 71551672 E11.65 blood sugars well controlled even while ill. Taking pioglitazo ne, glimepirid e [id number] MATHEUS GALLARDO [facility] [address] [place] [address] 03/21/2021 16:14:34 03/27/2021 07:44:14 Mixed hyperlipidemia due to type 2 diabetes mellitus 5375993124 03 E78.2 Patient takes Pravastati n 40mgLabs on 01/2021TC 184tri 172LDL 114HDL 40 Chronic ki dney disease 783585673 N18.[address] Davis for stage 4 kidney disease.den cabello visit on 03/14 and no changes were made. I had patient reach out for elevated potassium and labs will be faxed over as well. Labs 03/21/21: BUN 51, CR 3.47, GFR 18, Potassium 6.3 patient has appointmen t Hypothyroidism 74749332 E03.9 TSH elevated at 11. will increase dose and f/u in 2 weeks. Microalbuminuria 5783146 06 R80.9 02/24/21 alb/cr ratio is 319, abnormal. patient reached out to nephrologi . Secondary hyperparathyroidism 01739532 E21.1 Patient taking calcitrol 12.5 Primary ma lignant neoplasm of supraglottis 00229079 C32.1 Pt has hx of ca of the throat he is not sure where. He had a trach no neck dissection he had RT. This was done 4-5 yrs ago at [place]. no recurrence follow in 6 months get old records. CT neck and chest done August and September 2020 show no residual cancer or recurrence . - follows ENT in [facility]? need records- Hypertensive disorder 38 941876 I10 140/90, not controlled . will have [...] <140/90 Screening for malignant neoplasm of colon 574641519 Z12.11 [id number] MATHEUS GALLARDO [facility] [address] [place] [address] 06/22/2021 07:51:27 06/25/2021 08:07:52 Hypothyroidism 35320296 E03.9 TSH elevated at 11. need to redo abs. ON 175 MCG LEVOTHYROX INE Chronic ki dney disease 793650199 N18.[address] Davis for stage 4 kidney disease. He has labs work fridayjul 26 from kidney doctor. I am adding my own labs and he will flower buncher or picker. needs to have Dr Davis send all labs over as well. Labs 03/21/21: BUN 51, CR 3.47, GFR 18, Potassium 6.3 patient has appointmen t Mixed hype rlipidemia due to type 2 diabetes mellitus 3215505292 03 E78.2 Patient takes Pravastati n 40mgLabs on 01/2021TC 184tri 172LDL 114HDL 40 Microalbuminuria 3046388 06 R80.9 02/24/21 alb/cr ratio is 319, abnormal. [facility] Secondary hyperparathyroidism 86432374 E21.1 Patient taking calcitrol 12.5 Primary ma lignant neoplasm of supraglottis 90739676 C32.1 Pt has hx of ca of the throat he is not sure where. He had a trach no neck dissection he had RT. This was done 4-5 yrs ago at [place]. no recurrence follow in 6 months get old records. CT neck and chest done August and September 2020 show no residual cancer or recurrence . - follows ENT in [facility]? need records Hypertensive disorder 38 721367 I10 Phone visit today. He is not [...] <140/90 Screening for malignant neoplasm of colon 421593537 Z12.11 cologuard negative 05/29/2021 Diabetes mellitus 775287 09 E11.22 A1C 5.7 01/2021. Home BG [...] eye exam- foot exam at next visit [id number] MATHEUS GALLARDO [facility] [address] [place] [address] 12/10/2021 15:53:06 12/11/2021 10:58:10 Abdominal pain 75407897 R10.9 pt with hx of asymptomat ic [...] Screening for malignant neoplasm of respiratory tract 850924493 Z12.2 30+ years smoking and quit after cancer diagnosis. had CT chest last year showing multiple lung nodules measuring 2-3mm. repeat with LDCT. Essential hypertension 19333767 I10 BP elevated today 150/88. he ran out of amlodipine this week. needs refill. f/u one week with BP. - refill amlodipine - discussed gal BP 120/80- following dash/kidne y diet- f/u one week- labs in one week Depression screening 171 328558 Z13.31 negative Obesity 905136251 E66.9 BMI 33.3 [id number] MATHEUS GALLARDO [facility] [address] [place] [address] 12/17/2021 10:13:16 12/24/2021 12:14:36 Diabetes mellitus 30884331 E11.22 A1C 5.5 7, 5.7 01/2021. Home BG runs low hundreds. [...] amputated on right foot (2017) HIV screening 883703105 Z11.4 Hypertensive disorder 38 124275 I10 BP not controlled today. He will call nephrologi st and let them know.Advis ed to check BP regularly with a goal of <140/90, if BP consistent ly >140/90, advised to contact clinicDisc ussed ROBLES dietAdvise d weight loss and diet is best way to control BPAdvised 30 minutes of exercise minimum dailyAdvis ed tobacco, alcohol, caffeine all increase BPAdvised goal for BP is <140/90 Chronic ki dney disease stage 4 946984300 N18.4 Patient is following nephrologi st Dr Isaiah Davis. He has not been educated on kidney diet. spent some time discussing diet and given handouts for help at home. sending service order clerk referral for added help. GFR 18, CR 3.47, Potassium 6.3 (03/21/22) at this time nephrology was contacted and patient did go see themrepeat labs today Current diet: drinking 3 mountain-d ew cans per daybreakfa st: 2 white toasts and 2eggslunch : sandwich ham and Gibraltarian cheese townsend (2 slices of white bread)dinn er: pork chops Screening for malignant neoplasm of prostate 201271670 Z12.5 screening Hypothyroidism 64188435 E03.9 TSH elevated at 11.7 (10.700) need to redo abs. ON 175 MCG LEVOTHYROX INE Amputated big toe 566398 007 Z89.419 right big toe (2017) after ulcer [id number] MATHEUS GALALRDO [facility] [address] [place] [address] 05/10/2022 10:56:51 05/14/2022 13:26:19 Hypoxemia 424933425 R09.02 Patient presents for urgent care f/u [...] possible MCV. - RO PE- ER Obesity 758748423 E66.9 BMI 38.3 [id number] MATHEUS GALLARDO [facility] [address] [place] [address] 07/30/2022 14:08:51 07/30/2022 14:49:30 Unintentional weight loss 886834902 R63.4 70 ln weight loss since last visit liekly due to hospitaliz ation Overweight 895671179 E66 .3 BMI 28.7 Acute hypo xemic respiratory failure 692351641 J96.01 patient hospitaliz ed for acute hypoxemic resp failure from 05/2022- 06/18/2022. He is on 3L oxygen daytime and 6L night time.I called and made appointmen t for next week, August 07 at 2:45needs referral. on oxygen and trach Hypothyroidism 75243222 E03.9 TSH elevated at 11.7 (10.700) need to redo abs. ON 175 MCG LEVOTHYROX INE Tube feeding diet 459092 07 Z76.89 needs to seen surgeon Hospital i npatient stay within past 30 days 2705079436 106 Z76.89 [id number] MATHEUS GALLARDO [facility] [address] [place] [address] 10/10/2022 15:41:21 10/10/2022 16:12:22 Administration of pneumococcal vaccine 40185025 Z23 Falls 959654473 R29.6 1 fall every 2 weeks my right leg gets shaky and I fall. He now sits before he falls once he feels shaking. He is not . right leg starts checking lose balance x 1 month +no pain at all Serum thyr oid stimulating hormone level outside reference range 989942186 R79.89 recehcknep hrologist recently increased doseinsura nce would not cover solution to put into his peg Wheezing 02385055 R06.2 b/l lower lobesrecen tly completed steroidsaw pulmonolog ist 10/09/2022 Chronic ki dney disease stage 4 835231946 N18.4 [facility]. recent labs in file from 08/2022next f/u in 6 monthsBP controlled but not at target of 120/80. [id number] Shashi busch MD [facility] [address] [place] [address] 12/12/2022 10:35:03 12/12/2022 13:32:33 Hypothyroidism 72522870 E03.9 not controlled . he crushes 150mcg tablet into feeding tube Before other feedings. spoke to pharmacist at [facility]. she states thyquidity 20mcg/ml and to prescribe 6.85 ml everyday. this medication however was not covered. - increase dose Type 2 hermes betes mellitus 05501199 E11.22 A1C 5.2% (11/2022), 5.2% (07/2022), 5.5% (09/2021)me dications: actos, glimepirid eFoot exam: next visitEye Exam: dueAlb/Cr: abnormalSt atin: pravaststi nACEi/ARB: losartanpn eumonia vaccine: [id number] 09/2022 Chronic ki dney disease 441101740 N18.[address] Davis for stage 4 kidney disease. He has labs work Fridayjul 26 from kidney doctor. I am adding my own labs and he will flower buncher or picker. needs to have Dr Davis send all labs over as well. 12/12/2022 : BUN 78, cr 3.09, GFR 23 (will be faxed to his nephrologi ) 023: BUN 70, CR 2.5 GFR 29 ([facility] BUN 51, CR 3.47, GFR 18, Potassium 6.3 patient has appointmen t Administra tion of diphtheria, pertussis, and tetanus vaccine 689201715 Z23 History of laryngectomy 473803652 Z90.02 Patient was admitted at [place] for Laryngecto my 11/20/22 (Follows Dr Hemphill). After spending some time in PACU he was admitted to neck surgery service. Right neck DOLORES drain remained at discharge and will be removed at discharge. speech therapy consulted and educated on using electrolar ynx. he requires high humidity trach. [id number] MATHEUS GALLARDO [facility] [address] [facility] [place] [address] 02/20/2023 15:48:54 02/20/2023 16:56:12 Cough 46679388 R05.9 c/o new cough Hypothyroidism 57130278 E03.9 back to PO. recehck thyroid - increase dose Edema of l ower extremity 110883673 R60.0 b/l 1+ pitting edema Tube feeding diet 741305 07 Z76.89 needs to seen surgeonyvonne levine to have PEG tube removed [id number] MATHEUS GALLARDO [facility] [address] [facility] [place] [address] 08/05/2023 15:28:12 08/05/2023 16:55:46 Low back pain 759213887 M54.50 one month of back pain better with walking and worse with sitting. if sitting , leaning forward helps. - PT- xray- f/u 6 weeks- ER if red flag sx discussed Heart failure 11096142 I 50.9 He was hospitaliz ed at [facility] on 05/07/2023 with complaint of worsening swelling [...] function End stage renal failure on dialysis 208316030 N18.6 on dialysis Pete [facility] Health Concerns Section Related Observation LastModified by Organization Detai ls LastModified Time None Recorded Concern Status LastModified by Organization Details LastModified Time None Recorded Advance Directives Directive N: Payers Encounter Date Sequence Insurance Name Policy Number Policy Chopra Covered Member ID Chopra Member ID Guarantor Name 07/30/2022 1 [facility] ON OR AFTER 11/30/20 (MEDICAID REPLACEMENT - HMO) Bubba Saxena [id number] Bubba Saxena 10/10/2022 1 [facility] ON OR AFTER 11/30/20 (MEDICAID REPLACEMENT - HMO) uBbba Saxena [id number] Bubba Saxena 12/12/2022 1 [facility] ON OR AFTER 11/30/20 (MEDICAID REPLACEMENT - HMO) Bubba Saxena [id number] Bubba Saxena 02/20/2023 1 [facility] ON OR AFTER 11/30/20 (MEDICAID REPLACEMENT - HMO) Bubba Saxena [id number] Bubba Saxena 08/05/2023 1 [facility] ON OR AFTER 11/30/20 (MEDICAID REPLACEMENT - HMO) Bubba Saxena [id number] Bubba Saxena Notes Date Note Type Note Provider Name and Address Organization Details Recorded Time 07/30/2022 text/html Bubba is here fo r ER and inpatient f/u Patient was initially admitted at [facility] in May and using 4L of oxygen and worsened to require bipap and ultimately intubated for hypercapnia. He was extubate May 17 and required re-intubation May 24. Patient was transferred [facility] from 06/06/2022- 06/18/2022 for acute hypoxic respiratory failure, aspiration pneumonia w/ pseudomonas requiring trach and PEG. He was transferred to [facility] ([facility]) nurse comes in one last time tomorrow. will ask about tubing.patient is getting tube feedings. every 4 hours. patient has enough food for a while patient has trach. waiting to get into pulm. MATHEUS GALLARDO Attn: Accounting,[address] [place], [address], [facility] 08/02/2022 12:53:30 10/10/2022 text/html Bubba is a 57 YO M CKD IV, htn, obesity, chronic respiratory failure, COPD, pharyngeal cancer presenting for thyroid recheck and f/u PULMONOLOGY: SAW Dr Cabral at [facility] 10/09/2022. He is on 3L of [...] to garden. MATHEUS GALLARDO Attn: Accounting[address] [place], [address], [facility] 10/10/2022 16:23:23 12/12/2022 text/html Bubba is a [...] are specialist updates. Patient was admitted at [place] for Laryngectomy 11/20/22. After spending some time in PACU he was admitted to neck surgery service. Right neck DOLORES drain remained at discharge and will be removed at discharge. speech therapy consulted and educated on using electrolarynx. he requires high humidity trach. Pulmonology SAW Dr Cabral at [facility] 10/09/2022. He is on 3L of [...] saw ENT 10/11/22, Dr Parvez Hemphill at [facility] for recurrent aspiration pneumonia. This is [...] Shashi Pandey MD Attn: Accounting[address] [facility] [place], [address], [facility] 12/16/2022 11:10:18 02/20/2023 text/html Bubba is a 58 YO M CKD IV, htn, obesity, COPD, pharyngeal cancer presenting for thyroid recheck and f/u Patient is compliant with all medication. He has followed up with all specialists. He is back to eating by mouth. He is also taking thyroid medication by mouth now. Pulmonology SAW Dr Cabral at [facility] 10/09/2022. He is on 3L of [...] medication. MATHEUS GALLARDO Attn: Accounting,[address], [place], [address], [facility] 02/24/2023 08:31:16 08/05/2023 text/html Bubba Saxena is a 58 y.o. male who comes to the office for a hospital follow up for right-sided heart failure He was hospitalized at [facility] on 05/07/2023 with complaint of worsening swelling [...] MATHEUS GALLARDO Attn: Accounting,[address] [facility], [place], [address], [place] - [facility] 08/07/2023 08:20:21
--- OUTSIDE RECORDS SUMMARY | 2024-08-27 14:22 | XMS_ITS | Encounter Summary ---
Author Organization [facility] Address [address] [place] [address] Phone Care Team Providers Care Bingo Attendant Name Role Phone Isaiah Davis MD Primary Care Provider Dave Squires MD Unavailable Osmar Manley MD Primary Care Provider [phone] Encounter Details Date Type Department Care Team (Late st Contact Info) Description 05/01/2020 Telephone [facility] [address] [address] Dave Squires MD [address] [address] Social History Tobacco Use Types [...] on file Legal Sex Male 1:17 PM CORRAL BOSS Gender Identity Not on file Sexual Orientation Not on file documented as of this encounter Miscellaneous Notes * Telephone Encounter - Geena Nance - 05/01/2020 3:54 PM CST PATIENT WAS A NO SHOW, LVM FOR PATIENT TO GIVE US A CALL TO RESCHEDULE. AL BOSS documented in this encounter Plan of Treatment Not on file documented as of this encounter Visit Diagnoses Not on filedocumented in this encounter Additional Health Concerns Assessment Noted Time PHQ-9 Depression Total Score: 0 01/22/20 19 1:48 PM CDT documented as of this encounter Care Teams Bingo Attendant Relationship Specialty Start Date End Date Isaiah Davis MD [address] [place] [address] PCP - General Internal Medicine 09/15/19 08/19/24 Osmar Manley MD [address] [place] [address] PCP - General Geriatric Medicine 08/20/24 Dave Squires MD [address] [facility] [address] [place] [address] Consulting Physician Oncology 09/15/19 documented as of this encounter
--- OUTSIDE RECORDS SUMMARY | 2024-08-27 14:23 | XMS_ITS ---
Author Organization [facility]ai [facility] ([facility]) Address [facility] [address] [address] Care Team Providers Care Learning Designer Name Role Phone Unavailable Unavailable Unavailable Allergies, Adverse Reactions, Alerts Allergy Name Allergy Type Status Severity Reaction(s) Onset Date Inactive Date Treating Clinician Comments No Known Allergies Allergy Active 2023-05 17:43:4 2 Medications Ordered Medication Name Filled Medication Name Start Date Stop Date Current Medication? Ordering Clinician Indication Dosage Frequency Signature (SIG) Comments Components calcitriol 07-21 02:04: 45 Yes [id number] Number of Repeats Allowed: Frequency: Three times a week heparin sodium, porcine 09-12 05:00: 00 Yes [id number] Number of Repeats Allowed: Frequency: Every Dialysis TreatmentD osesOrdere d: Hourly Dose 800 Units/Hr 1:1000 Units/mLRo [place]: Intravenou s clonidine 06-30 11:09: 03 Yes [id number] Number of Repeats Allowed: Frequency: Every 4 hours as needed Pravastatin Sodium 2022-06 17:48: 27 Yes Number of Repeats Allowed: Frequency: One time a day Glimepiride 2022-06 17:47: 52 Yes Number of Repeats Allowed: Frequency: One time a day Pioglitazon e HCl 2022-06 17:47: 21 Yes Number of Repeats Allowed: Frequency: One time a day Losartan Potassium 2022-06 17:46: 48 Yes Number of Repeats Allowed: Frequency: One time a day Levothyroxi ne Sodium 2022-06 17:46: 23 Yes Number of Repeats Allowed: Frequency: One time a day Carvedilol 2022-06 17:45: 57 Yes Number of Repeats Allowed: Frequency: Two times a day amLODIPine Benzoate 2022-06 17:44: 42 Yes Number of Repeats Allowed: Frequency: One time a day Oxygen 2022-06 17:33: 56 Yes [id number] Number of Repeats Allowed: Frequency: As needed ondansetron hydrochlori de 2022-06 17:33: 06 Yes [id number] Number of Repeats Allowed: Frequency: Every 4 hours as needed Normal Saline Solution 0.9% NaCl 2022-06 17:31: 48 Yes [id number] Number of Repeats Allowed: Frequency: As needed loperamide hydrochlori de 2022-06 17:31: 35 Yes [id number] Number of Repeats Allowed: Frequency: Every 4 hours as needed Insta-Gluco se 2022-06 17:31: 20 Yes [id number] Number of Repeats Allowed: Frequency: Every 30 minutes as needed diphenhydra mine hydrochlori de 2022-06 17:30: 56 Yes [id number] Number of Repeats Allowed: Frequency: Every 4 hours as needed Antacid Extra Strength 2022-06 17:30: 21 Yes [id number] Number of Repeats Allowed: Frequency: Every 4 hours as needed acetaminoph en 2022-06 17:30: 04 Yes [id number] Number of Repeats Allowed: Frequency: Every 4 hours as needed heparin sodium, porcine 2022-06 17:28: 00 Yes [id number] Number of Repeats Allowed: Frequency: Every Dialysis TreatmentD osesOrdere d: Loading Dose 1000 Units 1:1000 Units/mLRo [place]: Intravenou s Problems This patient has no known problems. Procedures Procedure Date / Time Performed Performing Clinician Raine ce Details AV Fistula 2024-01-26 05:00:00 Access Site Upper Arm (Right) Access Use Start Date 2024-04-13 00:00:0 0 Central Venous Catheter (CVC)2023-05-07 06:00:00 Access Site Chest (Left) Access Use Start Date 2023-05-07 06:00:0 0 Access Use End Date 2024-05-31 06:00:00 DIALYSIS TREATMENT INFORMATION Conventional Hemodialysis Date Type Treatment Start Date Treatment End Date Pre-Treatment Vitals Post-Treatment Vitals Weight Gain BFR DFR Actual UF Dialysis Access August 05, 2024 In-Ce nter Hemod ialys is Treat ment 2024-08-05 T11:53:30. 000Z 2024-08-05 T14:12:30. 000Z BP Sitting (Pre-Dialysis) 134/63 mmHg BP Sitting (Post-D ialysis ) 116/ 47 mmHg BP Standing (Pre-Dialysis) 93/52 mmHg Sitting Heart Rate Post-Dialysis 53 BPM Sitting Heart Rate Pre-Dialysis 77 BPM Temperatu re Post-Dialysis 98 degF Standing Heart Rate Pre-Dialysis 77 BPM Temperature Pre-Dialysis 97.7 degF August 03, 2024 In-Center Hemodialysis Treatment 8021-92-44B03:57:21.000Z 0426-73-11W08:42:22.000Z BP Sitting (Pre-Dialysis) 146/75 mmHg BP Sitting (Post-Dialysis) 112/62 mmHg Concurrent Access: falseAV Fistula Upper Arm (Right) Arterial BP Standing (Pre-Dialysis) 154/79 mmHg BP Standing (P ost-Dialysis) 115/70 mmHg Sitting Heart Rate Pre-Dialysis 70 BPM Sitting Heart Rate Post-Dialysis 73 BPM Standing Heart Rate Pre-Dialysis 74 BPM Standing Heart Rate Post-Dialysis 72 BPM Temperature Pre-Dialysis 98 degF Temperature Post -Dialysis 98 degF July 31, 2024 In-Center Hemodialysis Treatment 1285-37-42B16:50:32.000Z 9770-42-69C16:36:32.000Z BP Sitting (Pre-Dialysis) 140/76 mmHg BP Sitting (Post-Dialysis) 96/47 mmHg Concurrent Access: falseAV Fistula Upper Arm (Right) Arterial BP Standing (Pre-Dialysis) 138/72 mmHg BP Standing (P ost-Dialysis) 103/42 mmHg Sitting Heart Rate Pre-Dialysis 65 BPM Sitting Heart Rate Post-Dialysis 74 BPM Standing Heart Rate Pre-Dialysis 76 BPM Standing Heart Rate Post-Dialysis 74 BPM Temperature Pre-Dialysis 97.5 degF Temperature Post -Dialysis 97.7 degF July 29, 2024 In-Center Hemodialysis Treatment 7294-96-00M85:46:59.000Z 5354-64-87R44:33:00.000Z BP Sitting (Pre-Dialysis) 130/54 mmHg BP Sitting (Post-Dialysis) 101/59 mmHg Concurrent Access: falseAV Fistula Upper Arm (Right) Arterial BP Standing (Pre-Dialysis) 121/57 mmHg BP Standing (P ost-Dialysis) 114/57 mmHg Sitting Heart Rate Pre-Dialysis 74 BPM Sitting Heart Rate Post-Dialysis 73 BPM Standing Heart Rate Pre-Dialysis 76 BPM Standing Heart Rate Post-Dialysis 71 BPM Temperature Pre-Dialysis 97.1 degF Temperature Post -Dialysis 97.6 degF July 27, 2024 In-Center Hemodialysis Treatment 8395-64-59K87:55:26.000Z 6703-30-05T69:43:26.000Z BP Sitting (Pre-Dialysis) 108/39 mmHg BP Sitting (Post-Dialysis) 95/42 mmHg Concurrent Access: falseAV Fistula Upper Arm (Right) Arterial Sitting Heart Rate Pre-Dialysis 81 BPM BP Standi ng (Post-Dialysis) 95/62 mmHg Temperature Pre-Dialysis 98 degF Sitting Heart Ra te Post-Dialysis 77 BPM Standing Heart Rate Post-Neli lysis 81 BPM Temperature Post-Dialysis 97 .8 degF July 24, 2024 In-Center Hemodialysis Treatment 0531-52-34V51:00:12.000Z 7229-28-51F54:50:13.000Z BP Sitting (Pre-Dialysis) 126/50 mmHg BP Sitting (Post-Dialysis) 108/64 mmHg Concurrent Access: falseAV Fistula Upper Arm (Right) Arterial BP Standing (Pre-Dialysis) 130/68 mmHg Sitti ng Heart Rate Post-Dialysis 78 BPM Sitting Heart Rate Pre-Dialysis 72 BPM Temperatu re Post-Dialysis 97.6 degF Standing Heart Rate Pre-Dialysis 73 BPM Temperature Pre-Dialysis 97.6 degF July 23, 2024 In-Center Hemodialysis Treatment 8324-57-84G19:37:01.000Z 8740-57-08F38:52:01.000Z BP Sitting (Pre-Dialysis) 115/76 mmHg BP Sitting (Post-Dialysis) 108/64 mmHg Concurrent Access: falseAV Fistula Upper Arm (Right) Arterial BP Standing (Pre-Dialysis) 99/70 mmHg BP Standing (P ost-Dialysis) 108/68 mmHg Sitting Heart Rate Pre-Dialysis 73 BPM Sitting Heart Rate Post-Dialysis 77 BPM Standing Heart Rate Pre-Dialysis 79 BPM Standing Heart Rate Post-Dialysis 78 BPM Temperature Pre-Dialysis 97.4 degF Temperature Post -Dialysis 97.6 degF July 22, 2024 In-Center Hemodialysis Treatment 2532-32-05D59:53:39.000Z 5271-15-29R72:56:40.000Z BP Sitting (Pre-Dialysis) 135/79 mmHg BP Sitting (Post-Dialysis) 122/59 mmHg Concurrent Access: falseAV Fistula Upper Arm (Right) Arterial Sitting Heart Rate Pre-Dialysis 70 BPM Sitting H eart Rate Post-Dialysis 74 BPM Temperature Pre-Dialysis 97.3 degF Temperature Post -Dialysis 97.6 degF July 17, 2024 In-Center Hemodialysis Treatment 0105-81-14Y12:44:43.000Z 7698-06-44N84:32:43.000Z BP Sitting (Pre-Dialysis) 162/84 mmHg BP Sitting (Post-Dialysis) 143/73 mmHg Concurrent Access: falseAV Fistula Upper Arm (Right) Arterial BP Standing (Pre-Dialysis) 140/72 mmHg BP Standing (P ost-Dialysis) 141/63 mmHg Sitting Heart Rate Pre-Dialysis 73 BPM Sitting Heart Rate Post-Dialysis 72 BPM Standing Heart Rate Pre-Dialysis 67 BPM Standing Heart Rate Post-Dialysis 71 BPM Temperature Pre-Dialysis 97 degF Temperature Post -Dialysis 97.2 degF July 15, 2024 In-Center Hemodialysis Treatment 6162-49-81P16:54:10.000Z 1546-90-27B61:43:10.000Z BP Sitting (Pre-Dialysis) 147/85 mmHg BP Sitting (Post-Dialysis) 118/51 mmHg Concurrent Access: falseAV Fistula Upper Arm (Right) Arterial BP Standing (Pre-Dialysis) 128/64 mmHg BP Standing (P ost-Dialysis) 137/73 mmHg Sitting Heart Rate Pre-Dialysis 72 BPM Sitting Heart Rate Post-Dialysis 72 BPM Standing Heart Rate Pre-Dialysis 78 BPM Standing Heart Rate Post-Dialysis 73 BPM Temperature Pre-Dialysis 97 degF Temperature Post -Dialysis 97.8 degF July 13, 2024 In-Center Hemodialysis Treatment 7922-49-00E63:55:37.000Z 6929-95-17I35:56:37.000Z BP Sitting (Pre-Dialysis) 119/76 mmHg BP Sitting (Post-Dialysis) 148/76 mmHg Concurrent Access: falseAV Fistula Upper Arm (Right) Arterial BP Standing (Pre-Dialysis) 125/77 mmHg Sitti ng Heart Rate Post-Dialysis 79 BPM Sitting Heart Rate Pre-Dialysis 79 BPM Temperatu re Post-Dialysis 97.7 degF Standing Heart Rate Pre-Dialysis 81 BPM Temperature Pre-Dialysis 97 degF July 12, 2024 Sequential Treatment 2477-12-09W51:06:20.000Z 6098-47-85Z19:55:21.000Z BP Sitting (Pre-Dialysis) 126/65 mmHg BP Sitting (Post-Dialysis) 143/90 mmHg Concurrent Access: falseAV Fistula Upper Arm (Right) Arterial BP Standing (Pre-Dialysis) 112/67 mmHg Sitting Heart Rate Post-Dialysis 61 BPM Sitting Heart Rate Pre-Dialysis 73 BPM Temperatu re Post-Dialysis 98 degF Standing Heart Rate Pre-Dialysis 77 BPM Temperature Pre-Dialysis 97.2 degF July 10, 2024 In-Center Hemodialysis Treatment 3239-78-90U94:45:57.000Z 2560-89-00G51:47:58.000Z BP Sitting (Pre-Dialysis) 97/54 mmHg BP Sitting (Post-Dialysis) 104/68 mmHg Concurrent Access: falseAV Fistula Upper Arm (Right) Arterial Sitting Heart Rate Pre-Dialysis 82 BPM Sitting H eart Rate Post-Dialysis 75 BPM Temperature Pre-Dialysis 97.5 degF Temperature Post -Dialysis 97.5 degF July 08, 2024 In-Center Hemodialysis Treatment 9645-74-53H04:00:39.000Z 8098-95-00K99:48:39.000Z BP Sitting (Pre-Dialysis) 168/97 mmHg BP Sitting (Post-Dialysis) 121/82 mmHg Concurrent Access: falseAV Fistula Upper Arm (Right) Arterial BP Standing (Pre-Dialysis) 159/102 mmHg BP Standing (P ost-Dialysis) 125/76 mmHg Sitting Heart Rate Pre-Dialysis 77 BPM Sitting Heart Rate Post-Dialysis 77 BPM Standing Heart Rate Pre-Dialysis 73 BPM Standing Heart Rate Post-Dialysis 77 BPM Temperature Pre-Dialysis 97.6 degF Temperature Post -Dialysis 97.7 degF July 06, 2024 In-Center Hemodialysis Treatment 4085-49-14Y60:59:06.000Z 7081-52-12X46:07:06.000Z BP Sitting (Pre-Dialysis) 155/95 mmHg BP Sitting (Post-Dialysis) 133/80 mmHg Concurrent Access: falseAV Fistula Upper Arm (Right) Arterial Sitting Heart Rate Pre-Dialysis 64 BPM Sitting H eart Rate Post-Dialysis 81 BPM Temperature Pre-Dialysis 97 degF Temperature Post -Dialysis 97.3 degF July 03, 2024 In-Center Hemodialysis Treatment 4106-63-63U67:10:17.000Z 1263-37-53M61:29:17.000Z BP Sitting (Pre-Dialysis) 149/100 mmHg BP Sitting (Post-Dialysis) 121/81 mmHg Concurrent Access: falseAV Fistula Upper Arm (Right) Arterial Sitting Heart Rate Pre-Dialysis 73 BPM BP Standi ng (Post-Dialysis) 134/79 mmHg Temperature Pre-Dialysis 97 degF Sitting Heart Ra te Post-Dialysis 72 BPM Standing Heart Rate Post-Neli lysis 77 BPM Temperature Post-Dialysis 97 .6 degF July 01, 2024 In-Center Hemodialysis Treatment 8299-26-12Z45:43:44.000Z 7915-78-72S00:46:44.000Z BP Sitting (Pre-Dialysis) 161/96 mmHg BP Sitting (Post-Dialysis) 128/74 mmHg Concurrent Access: falseAV Fistula Upper Arm (Right) Arterial BP Standing (Pre-Dialysis) 147/86 mmHg BP Standing (P ost-Dialysis) 133/76 mmHg Sitting Heart Rate Pre-Dialysis 75 BPM Sitting Heart Rate Post-Dialysis 75 BPM Standing Heart Rate Pre-Dialysis 77 BPM Standing Heart Rate Post-Dialysis 75 BPM Temperature Pre-Dialysis 97.1 degF Temperature Post -Dialysis 97.4 degF June 29, 2024 In-Center Hemodialysis Treatment 3993-95-07B02:56:00.000Z 0888-66-84Q34:49:11.000Z BP Sitting (Pre-Dialysis) 138/81 mmHg BP Sitting (Post-Dialysis) 106/70 mmHg Concurrent Access: falseAV Fistula Upper Arm (Right) Arterial BP Standing (Pre-Dialysis) 153/85 mmHg BP Standing (P ost-Dialysis) 116/63 mmHg Sitting Heart Rate Pre-Dialysis 79 BPM Sitting Heart Rate Post-Dialysis 75 BPM Standing Heart Rate Pre-Dialysis 82 BPM Standing Heart Rate Post-Dialysis 78 BPM Temperature Pre-Dialysis 97.1 degF Temperature Post -Dialysis 97.2 degF June 28, 2024 Additional Day Of Dialysis Treatment 9896-03-10Z93:06:54.000Z 4320-87-95G66:09:54.000Z BP Sitting (Pre-Dialysis) 164/98 mmHg BP Sitting (Post-Dialysis) 148/87 mmHg Concurrent Access: falseAV Fistula Upper Arm (Right) Arterial BP Standing (Pre-Dialysis) 153/92 mmHg Sitti ng Heart Rate Post-Dialysis 66 BPM Sitting Heart Rate Pre-Dialysis 65 BPM Temperatu re Post-Dialysis 97.6 degF Standing Heart Rate Pre-Dialysis 71 BPM Temperature Pre-Dialysis 97.1 degF June 26, 2024 In-Center Hemodialysis Treatment 0662-08-27O24:57:21.000Z 7791-73-28Q55:46:22.000Z BP Sitting (Pre-Dialysis) 163/93 mmHg BP Sitting (Post-Dialysis) 113/58 mmHg Concurrent Access: falseAV Fistula Upper Arm (Right) Arterial BP Standing (Pre-Dialysis) 151/92 mmHg Sitti ng Heart Rate Post-Dialysis 85 BPM Sitting Heart Rate Pre-Dialysis 90 BPM Temperatu re Post-Dialysis 97.8 degF Standing Heart Rate Pre-Dialysis 93 BPM Temperature Pre-Dialysis 97.1 degF June 24, 2024 In-Center Hemodialysis Treatment 8044-48-82E01:04:26.000Z 3047-22-84F88:53:26.000Z BP Sitting (Pre-Dialysis) 142/86 mmHg BP Sitting (Post-Dialysis) 116/71 mmHg Concurrent Access: falseAV Fistula Upper Arm (Right) Arterial BP Standing (Pre-Dialysis) 142/86 mmHg Sitti ng Heart Rate Post-Dialysis 80 BPM Sitting Heart Rate Pre-Dialysis 82 BPM Temperatu re Post-Dialysis 97.4 degF Standing Heart Rate Pre-Dialysis 82 BPM Temperature Pre-Dialysis 97.4 degF June 22, 2024 In-Center Hemodialysis Treatment 7586-44-21B12:50:15.000Z 6666-88-32F79:42:15.000Z BP Sitting (Pre-Dialysis) 148/88 mmHg BP Sitting (Post-Dialysis) 124/68 mmHg Concurrent Access: falseAV Fistula Upper Arm (Right) Arterial BP Standing (Pre-Dialysis) 152/93 mmHg BP Standing (P ost-Dialysis) 122/60 mmHg Sitting Heart Rate Pre-Dialysis 78 BPM Sitting Heart Rate Post-Dialysis 75 BPM Standing Heart Rate Pre-Dialysis 82 BPM Standing Heart Rate Post-Dialysis 72 BPM Temperature Pre-Dialysis 97.4 degF Temperature Post -Dialysis 97.7 degF June 19, 2024 In-Center Hemodialysis Treatment 0025-32-35F36:59:36.000Z 2737-01-90J04:49:35.000Z BP Sitting (Pre-Dialysis) 144/108 mmHg BP Sitting (Post-Dialysis) 121/82 mmHg Concurrent Access: falseAV Fistula Upper Arm (Right) Arterial Sitting Heart Rate Pre-Dialysis 62 BPM Sitting H eart Rate Post-Dialysis 72 BPM Temperature Pre-Dialysis 97.4 degF Temperature Post -Dialysis 97.5 degF June 17, 2024 In-Center Hemodialysis Treatment 8572-13-39H77:09:52.000Z 2034-82-25A34:57:53.000Z BP Sitting (Pre-Dialysis) 135/90 mmHg BP Sitting (Post-Dialysis) 111/69 mmHg Concurrent Access: falseAV Fistula Upper Arm (Right) Arterial Sitting Heart Rate Pre-Dialysis 76 BPM BP Standi ng (Post-Dialysis) 99/69 mmHg Temperature Pre-Dialysis 97.7 degF Sitting Heart Ra te Post-Dialysis 82 BPM Standing Heart Rate Post-Neli lysis 83 BPM Temperature Post-Dialysis 97 .9 degF June 15, 2024 In-Center Hemodialysis Treatment 1093-50-90Q20:01:00.000Z 4235-77-24J89:50:50.000Z BP Sitting (Pre-Dialysis) 143/83 mmHg BP Sitting (Post-Dialysis) 97/63 mmHg Concurrent Access: falseAV Fistula Upper Arm (Right) Arterial Sitting Heart Rate Pre-Dialysis 72 BPM Sitting H eart Rate Post-Dialysis 76 BPM Temperature Pre-Dialysis 97.6 degF Temperature Post -Dialysis 98.1 degF June 12, 2024 In-Center Hemodialysis Treatment 3807-39-93H66:57:01.000Z 4574-38-43N25:49:25.000Z BP Sitting (Pre-Dialysis) 153/90 mmHg BP Sitting (Post-Dialysis) 115/70 mmHg Concurrent Access: falseAV Fistula Upper Arm (Right) Arterial Sitting Heart Rate Pre-Dialysis 64 BPM Sitting H eart Rate Post-Dialysis 75 BPM Temperature Pre-Dialysis 97.3 degF Temperature Post -Dialysis 97.2 degF June 10, 2024 In-Center Hemodialysis Treatment 5716-36-04P05:13:27.000Z 9398-06-70N93:48:27.000Z BP Sitting (Pre-Dialysis) 139/86 mmHg BP Sitting (Post-Dialysis) 111/74 mmHg Concurrent Access: falseAV Fistula Upper Arm (Right) Arterial Sitting Heart Rate Pre-Dialysis 66 BPM Sitting H eart Rate Post-Dialysis 69 BPM Temperature Pre-Dialysis 97.2 degF Temperature Post -Dialysis 97.4 degF June 08, 2024 In-Center Hemodialysis Treatment 6553-57-79R05:35:31.000Z 1323-32-05A93:51:31.000Z BP Sitting (Pre-Dialysis) 159/94 mmHg BP Sitting (Post-Dialysis) 94/55 mmHg Concurrent Access: falseAV Fistula Upper Arm (Right) Arterial BP Standing (Pre-Dialysis) 150/85 mmHg BP Standing (P ost-Dialysis) 112/72 mmHg Sitting Heart Rate Pre-Dialysis 78 BPM Sitting Heart Rate Post-Dialysis 82 BPM Standing Heart Rate Pre-Dialysis 82 BPM Standing Heart Rate Post-Dialysis 82 BPM Temperature Pre-Dialysis 97.7 degF Temperature Post -Dialysis 97.8 degF June 05, 2024 In-Center Hemodialysis Treatment 3914-51-55G50:53:05.000Z 2302-13-90S09:42:05.000Z BP Sitting (Pre-Dialysis) 156/96 mmHg BP Sitting (Post-Dialysis) 91/59 mmHg Concurrent Access: falseAV Fistula Upper Arm (Right) Arterial Sitting Heart Rate Pre-Dialysis 75 BPM Sitting H eart Rate Post-Dialysis 76 BPM Temperature Pre-Dialysis 97.5 degF Temperature Post -Dialysis 97.7 degF June 03, 2024 In-Center Hemodialysis Treatment 3366-33-63X80:51:32.000Z 8919-53-88V04:32:32.000Z BP Sitting (Pre-Dialysis) 141/71 mmHg BP Sitting (Post-Dialysis) 101/69 mmHg Concurrent Access: falseAV Fistula Upper Arm (Right) Arterial BP Standing (Pre-Dialysis) 152/89 mmHg BP Standing (P ost-Dialysis) 119/75 mmHg Sitting Heart Rate Pre-Dialysis 76 BPM Sitting Heart Rate Post-Dialysis 74 BPM Standing Heart Rate Pre-Dialysis 77 BPM Standing Heart Rate Post-Dialysis 76 BPM Temperature Pre-Dialysis 97.4 degF Temperature Post -Dialysis 97.4 degF June 01, 2024 In-Center Hemodialysis Treatment 7379-60-86A03:57:01.000Z 4649-60-24G94:30:01.000Z BP Sitting (Pre-Dialysis) 157/82 mmHg BP Sitting (Post-Dialysis) 127/75 mmHg Concurrent Access: falseAV Fistula Upper Arm (Right) Arterial BP Standing (Pre-Dialysis) 157/92 mmHg BP Standing (P ost-Dialysis) 126/74 mmHg Sitting Heart Rate Pre-Dialysis 60 BPM Sitting Heart Rate Post-Dialysis 72 BPM Standing Heart Rate Pre-Dialysis 61 BPM Standing Heart Rate Post-Dialysis 70 BPM Temperature Pre-Dialysis 98 degF Temperature Post -Dialysis 98 degF May 29, 2024 In-Center Hemodialysis Treatment 8393-97-04X99:51:00.000Z 6946-38-67Y44:41:10.000Z BP Sitting (Pre-Dialysis) 127/78 mmHg BP Sitting (Post-Dialysis) 124/88 mmHg Concurrent Access: falseAV Fistula Upper Arm (Right) ArterialCentral Venous Catheter (CVC) Chest (Left) Venous BP Standing (Pre-Dialysis) 124/75 mmHg BP Standing (P ost-Dialysis) 130/87 mmHg Sitting Heart Rate Pre-Dialysis 77 BPM Sitting Heart Rate Post-Dialysis 71 BPM Standing Heart Rate Pre-Dialysis 77 BPM Standing Heart Rate Post-Dialysis 72 BPM Temperature Pre-Dialysis 97.3 degF Temperature Post -Dialysis 97.3 degF May 27, 2024 In-Center Hemodialysis Treatment 6408-32-84H94:13:00.000Z 9467-72-10L59:58:34.000Z BP Sitting (Pre-Dialysis) 108/69 mmHg BP Sitting (Post-Dialysis) 101/63 mmHg Concurrent Access: falseAV Fistula Upper Arm (Right) ArterialCentral Venous Catheter (CVC) Chest (Left) Venous BP Standing (Pre-Dialysis) 116/71 mmHg BP Standing (P ost-Dialysis) 106/69 mmHg Sitting Heart Rate Pre-Dialysis 79 BPM Sitting Heart Rate Post-Dialysis 81 BPM Standing Heart Rate Pre-Dialysis 82 BPM Standing Heart Rate Post-Dialysis 80 BPM Temperature Pre-Dialysis 98.1 degF Temperature Post -Dialysis 97.5 degF May 24, 2024 In-Center Hemodialysis Treatment 7111-11-17Y18:54:00.000Z 4123-74-55J57:46:43.000Z BP Sitting (Pre-Dialysis) 140/81 mmHg BP Sitting (Post-Dialysis) 102/70 mmHg Concurrent Access: falseAV Fistula Upper Arm (Right) ArterialCentral Venous Catheter (CVC) Chest (Left) Venous BP Standing (Pre-Dialysis) 140/81 mmHg BP Standing (P ost-Dialysis) 121/71 mmHg Sitting Heart Rate Pre-Dialysis 78 BPM Sitting Heart Rate Post-Dialysis 61 BPM Standing Heart Rate Pre-Dialysis 65 BPM Standing Heart Rate Post-Dialysis 66 BPM Temperature Pre-Dialysis 97.2 degF Temperature Post -Dialysis 97.8 degF May 22, 2024 In-Center Hemodialysis Treatment 3244-39-32X03:57:10.000Z 6683-63-09N27:54:10.000Z BP Sitting (Pre-Dialysis) 150/93 mmHg BP Sitting (Post-Dialysis) 111/72 mmHg Concurrent Access: falseAV Fistula Upper Arm (Right) ArterialCentral Venous Catheter (CVC) Chest (Left) Venous Sitting Heart Rate Pre-Dialysis 71 BPM Sitting H eart Rate Post-Dialysis 65 BPM Temperature Pre-Dialysis 97.6 degF Temperature Post -Dialysis 97.6 degF May 20, 2024 In-Center Hemodialysis Treatment 9211-82-25P76:55:37.000Z 0633-54-88C29:42:37.000Z BP Sitting (Pre-Dialysis) 142/88 mmHg BP Sitting (Post-Dialysis) 109/71 mmHg Concurrent Access: falseAV Fistula Upper Arm (Right) ArterialCentral Venous Catheter (CVC) Chest (Left) Venous BP Standing (Pre-Dialysis) 152/92 mmHg BP Standing (P ost-Dialysis) 115/71 mmHg Sitting Heart Rate Pre-Dialysis 74 BPM Sitting Heart Rate Post-Dialysis 73 BPM Standing Heart Rate Pre-Dialysis 76 BPM Standing Heart Rate Post-Dialysis 75 BPM Temperature Pre-Dialysis 97.8 degF Temperature Post -Dialysis 97.6 degF May 18, 2024 In-Center Hemodialysis Treatment 5961-54-34N81:59:53.000Z 9792-49-87M19:43:52.000Z BP Sitting (Pre-Dialysis) 166/99 mmHg BP Sitting (Post-Dialysis) 146/89 mmHg Concurrent Access: falseAV Fistula Upper Arm (Right) ArterialCentral Venous Catheter (CVC) Chest (Left) Venous BP Standing (Pre-Dialysis) 167/97 mmHg Sitti ng Heart Rate Post-Dialysis 75 BPM Sitting Heart Rate Pre-Dialysis 72 BPM Temperatu re Post-Dialysis 97.8 degF Standing Heart Rate Pre-Dialysis 72 BPM Temperature Pre-Dialysis 97 degF May 15, 2024 In-Center Hemodialysis Treatment 1081-96-86V45:58:05.000Z 4458-49-02G53:52:05.000Z BP Sitting (Pre-Dialysis) 156/100 mmHg BP Sitting (Post-Dialysis) 96/67 mmHg Concurrent Access: falseAV Fistula Upper Arm (Right) ArterialCentral Venous Catheter (CVC) Chest (Left) Venous BP Standing (Pre-Dialysis) 163/98 mmHg Sitting Heart Rate Post-Dialysis 74 BPM Sitting Heart Rate Pre-Dialysis 75 BPM Temperatu re Post-Dialysis 98 degF Standing Heart Rate Pre-Dialysis 77 BPM Temperature Pre-Dialysis 97.8 degF May 13, 2024 In-Center Hemodialysis Treatment 5643-17-49B42:02:00.000Z 7146-62-32B04:51:46.000Z BP Sitting (Pre-Dialysis) 119/81 mmHg BP Sitting (Post-Dialysis) 141/91 mmHg Concurrent Access: falseAV Fistula Upper Arm (Right) ArterialCentral Venous Catheter (CVC) Chest (Left) Venous BP Standing (Pre-Dialysis) 148/92 mmHg BP Standing (P ost-Dialysis) 141/87 mmHg Sitting Heart Rate Pre-Dialysis 77 BPM Sitting Heart Rate Post-Dialysis 68 BPM Standing Heart Rate Pre-Dialysis 78 BPM Standing Heart Rate Post-Dialysis 69 BPM Temperature Pre-Dialysis 97.3 degF Temperature Post -Dialysis 97.7 degF May 11, 2024 In-Center Hemodialysis Treatment 1861-68-46L58:55:14.000Z 2925-15-63W24:45:13.000Z BP Sitting (Pre-Dialysis) 174/102 mmHg BP Sitting (Post-Dialysis) 147/91 mmHg Concurrent Access: falseAV Fistula Upper Arm (Right) ArterialCentral Venous Catheter (CVC) Chest (Left) Venous Sitting Heart Rate Pre-Dialysis 68 BPM BP Standing (Post-Dialysis) 149/89 mmHg Temperature Pre-Dialysis 97.6 degF Sitting Heart Ra te Post-Dialysis 72 BPM Standing Heart Rate Post-Neli lysis 75 BPM Temperature Post-Dialysis 97 .6 degF May 08, 2024 In-Center Hemodialysis Treatment [id number]:56:51.000Z 0306-27-03Q09:39:52.000Z BP Sitting (Pre-Dialysis) 168/95 mmHg BP Sitting (Post-Dialysis) 133/88 mmHg Concurrent Access: falseAV Fistula Upper Arm (Right) ArterialCentral Venous Catheter (CVC) Chest (Left) Venous BP Standing (Pre-Dialysis) 164/100 mmHg Sitting Heart Rate Post-Dialysis 70 BPM Sitting Heart Rate Pre-Dialysis 76 BPM Standing Heart Rate Pre-Dialysis 80 BPM Temperature Pre-Dialysis 97.5 degF May 06, 2024 In-Center Hemodialysis Treatment 7672-72-07P52:01:00.000Z 0969-55-83Y68:48:46.000Z BP Sitting (Pre-Dialysis) 162/91 mmHg BP Sitting (Post-Dialysis) 141/91 mmHg Concurrent Access: falseAV Fistula Upper Arm (Right) ArterialCentral Venous Catheter (CVC) Chest (Left) Venous BP Standing (Pre-Dialysis) 162/91 mmHg BP Standing (P ost-Dialysis) 151/89 mmHg Sitting Heart Rate Pre-Dialysis 72 BPM Sitting Heart Rate Post-Dialysis 72 BPM Standing Heart Rate Pre-Dialysis 75 BPM Standing Heart Rate Post-Dialysis 71 BPM Temperature Pre-Dialysis 98.4 degF Temperature Post -Dialysis 97.6 degF May 04, 2024 In-Center Hemodialysis Treatment [id number]:05:00.000Z 1612-49-73T78:52:39.000Z BP Sitting (Pre-Dialysis) 163/102 mmHg BP Sitting (Post-Dialysis) 126/76 mmHg Concurrent Access: falseAV Fistula Upper Arm (Right) ArterialCentral Venous Catheter (CVC) Chest (Left) Venous BP Standing (Pre-Dialysis) 163/90 mmHg BP Standing (P ost-Dialysis) 132/101 mmHg Sitting Heart Rate Pre-Dialysis 77 BPM Sitting Heart Rate Post-Dialysis 71 BPM Standing Heart Rate Pre-Dialysis 78 BPM Standing Heart Rate Post-Dialysis 53 BPM Temperature Pre-Dialysis 96.7 degF Temperature Post -Dialysis 98.1 degF May 01, 2024 In-Center Hemodialysis Treatment [id number]:11:30.000Z [id number]:02:31.000Z BP Sitting (Pre-Dialysis) 167/97 mmHg BP Sitting (Post-Dialysis) 141/91 mmHg Concurrent Access: falseAV Fistula Upper Arm (Right) ArterialCentral Venous Catheter (CVC) Chest (Left) Venous Sitting Heart Rate Pre-Dialysis 69 BPM BP Standing (Post-Dialysis) 143/91 mmHg Temperature Pre-Dialysis 97.6 degF Sitting Heart Ra te Post-Dialysis 70 BPM Standing Heart Rate Post-Neli lysis 67 BPM Temperature Post-Dialysis 97 .8 degF April 28, 2024 In-Center Hemodialysis Treatment [id number]:50:21.000Z [id number]:31:20.000Z BP Sitting (Pre-Dialysis) 161/98 mmHg BP Sitting (Post-Dialysis) 141/91 mmHg Concurrent Access: falseAV Fistula Upper Arm (Right) ArterialCentral Venous Catheter (CVC) Chest (Left) Venous BP Standing (Pre-Dialysis) 171/102 mmHg BP Standing (P ost-Dialysis) 147/95 mmHg Sitting Heart Rate Pre-Dialysis 76 BPM Sitting Heart Rate Post-Dialysis 68 BPM Standing Heart Rate Pre-Dialysis 80 BPM Standing Heart Rate Post-Dialysis 71 BPM Temperature Pre-Dialysis 97.8 degF Temperature Post -Dialysis 98 degF April 26, 2024 In-Center Hemodialysis Treatment 0470-06-47W69:54:16.000Z [id number]:12:15.000Z BP Sitting (Pre-Dialysis) 159/95 mmHg BP Sitting (Post-Dialysis) 156/80 mmHg Concurrent Access: falseAV Fistula Upper Arm (Right) ArterialCentral Venous Catheter (CVC) Chest (Left) Venous BP Standing (Pre-Dialysis) 163/91 mmHg BP Standing (P ost-Dialysis) 122/78 mmHg Sitting Heart Rate Pre-Dialysis 95 BPM Sitting Heart Rate Post-Dialysis 67 BPM Standing Heart Rate Pre-Dialysis 70 BPM Standing Heart Rate Post-Dialysis 68 BPM Temperature Pre-Dialysis 97.8 degF Temperature Post -Dialysis 97.8 degF April 24, 2024 In-Center Hemodialysis Treatment [id number]:04:09.000Z [id number]:56:10.000Z BP Sitting (Pre-Dialysis) 173/101 mmHg BP Sitting (Post-Dialysis) 97/59 mmHg Concurrent Access: falseAV Fistula Upper Arm (Right) ArterialCentral Venous Catheter (CVC) Chest (Left) Venous BP Standing (Pre-Dialysis) 164/99 mmHg BP Standing (P ost-Dialysis) 101/62 mmHg Sitting Heart Rate Pre-Dialysis 81 BPM Sitting Heart Rate Post-Dialysis 76 BPM Standing Heart Rate Pre-Dialysis 83 BPM Standing Heart Rate Post-Dialysis 77 BPM Temperature Pre-Dialysis 97.1 degF Temperature Post -Dialysis 97.2 degF April 22, 2024 In-Center Hemodialysis Treatment 8633-56-16T32:52:00.000Z 6912-64-68J27:37:03.000Z BP Sitting (Pre-Dialysis) 158/86 mmHg BP Sitting (Post-Dialysis) 117/78 mmHg Concurrent Access: falseAV Fistula Upper Arm (Right) ArterialCentral Venous Catheter (CVC) Chest (Left) Venous BP Standing (Pre-Dialysis) 159/93 mmHg Sitting Heart Rate Post-Dialysis 72 BPM Sitting Heart Rate Pre-Dialysis 68 BPM Temperatu re Post-Dialysis 97 degF Standing Heart Rate Pre-Dialysis 74 BPM Temperature Pre-Dialysis 97.3 degF April 20, 2024 In-Center Hemodialysis Treatment 4302-03-22F64:58:15.000Z 2757-10-90S41:52:57.000Z BP Sitting (Pre-Dialysis) 163/95 mmHg BP Sitting (Post-Dialysis) 114/73 mmHg Concurrent Access: falseAV Fistula Upper Arm (Right) ArterialCentral Venous Catheter (CVC) Chest (Left) Venous Sitting Heart Rate Pre-Dialysis 75 BPM Sitting H eart Rate Post-Dialysis 72 BPM Temperature Pre-Dialysis 97.3 degF Temperature Post -Dialysis 98 degF April 17, 2024 In-Center Hemodialysis Treatment [id number]:04:00.000Z 0612-72-07M28:48:21.000Z BP Sitting (Pre-Dialysis) 127/80 mmHg BP Sitting (Post-Dialysis) 111/85 mmHg Concurrent Access: falseAV Fistula Upper Arm (Right) ArterialCentral Venous Catheter (CVC) Chest (Left) Venous BP Standing (Pre-Dialysis) 129/79 mmHg BP Standing (P ost-Dialysis) 121/76 mmHg Sitting Heart Rate Pre-Dialysis 83 BPM Sitting Heart Rate Post-Dialysis 77 BPM Standing Heart Rate Pre-Dialysis 82 BPM Standing Heart Rate Post-Dialysis 76 BPM Temperature Pre-Dialysis 97.8 degF Temperature Post -Dialysis 97.4 degF April 15, 2024 In-Center Hemodialysis Treatment [id number]:00:36.000Z 4513-42-00U39:44:36.000Z BP Sitting (Pre-Dialysis) 171/100 mmHg BP Sitting (Post-Dialysis) 111/71 mmHg Concurrent Access: falseCentral Venous Catheter (CVC) Chest (Left) ArterialAV Fistula Upper Arm (Right) Venous BP Standing (Pre-Dialysis) 169/97 mmHg BP Standing (P ost-Dialysis) 108/68 mmHg Sitting Heart Rate Pre-Dialysis 77 BPM Sitting Heart Rate Post-Dialysis 70 BPM Standing Heart Rate Pre-Dialysis 79 BPM Standing Heart Rate Post-Dialysis 70 BPM Temperature Pre-Dialysis 97.2 degF Temperature Post -Dialysis 97.5 degF April 13, 2024 In-Center Hemodialysis Treatment [id number]:49:28.000Z 4343-37-33A96:37:27.000Z BP Sitting (Pre-Dialysis) 170/100 mmHg BP Sitting (Post-Dialysis) 114/87 mmHg Concurrent Access: falseAV Fistula Upper Arm (Right) ArterialCentral Venous Catheter (CVC) Chest (Left) Venous Sitting Heart Rate Pre-Dialysis 75 BPM Sitting H eart Rate Post-Dialysis 66 BPM Temperature Pre-Dialysis 97.6 degF Temperature Post -Dialysis 97.5 degF April 10, 2024 In-Center Hemodialysis Treatment [id number]:48:38.000Z 4328-22-35G03:31:39.000Z BP Sitting (Pre-Dialysis) 156/90 mmHg BP Sitting (Post-Dialysis) 117/75 mmHg Concurrent Access: falseCentral Venous Catheter (CVC) Chest (Left) ArterialAV Fistula Upper Arm (Right) Venous Sitting Heart Rate Pre-Dialysis 79 BPM Sitting H eart Rate Post-Dialysis 67 BPM Temperature Pre-Dialysis 97.6 degF Temperature Post -Dialysis 97.6 degF April 08, 2024 In-Center Hemodialysis Treatment 4532-95-45P41:50:00.000Z 0083-20-74A07:41:44.000Z BP Sitting (Pre-Dialysis) 141/83 mmHg BP Sitting (Post-Dialysis) 125/76 mmHg Concurrent Access: falseCentral Venous Catheter (CVC) Chest (Left) ArterialAV Fistula Upper Arm (Right) Venous BP Standing (Pre-Dialysis) 148/90 mmHg BP Standing (P ost-Dialysis) 126/79 mmHg Sitting Heart Rate Pre-Dialysis 78 BPM Sitting Heart Rate Post-Dialysis 70 BPM Standing Heart Rate Pre-Dialysis 79 BPM Standing Heart Rate Post-Dialysis 68 BPM Temperature Pre-Dialysis 96.6 degF Temperature Post -Dialysis 97.7 degF April 06, 2024 In-Center Hemodialysis Treatment 9000-57-85N85:54:00.000Z 5427-06-17R84:45:38.000Z BP Sitting (Pre-Dialysis) 170/101 mmHg BP Sitting (Post-Dialysis) 133/86 mmHg Concurrent Access: falseCentral Venous Catheter (CVC) Chest (Left) ArterialAV Fistula Upper Arm (Right) Venous BP Standing (Pre-Dialysis) 171/99 mmHg BP Standing (P ost-Dialysis) 132/89 mmHg Sitting Heart Rate Pre-Dialysis 75 BPM Sitting Heart Rate Post-Dialysis 72 BPM Standing Heart Rate Pre-Dialysis 95 BPM Standing Heart Rate Post-Dialysis 74 BPM Temperature Pre-Dialysis 97.2 degF Temperature Post -Dialysis 97.5 degF April 03, 2024 In-Center Hemodialysis Treatment 1548-89-10P88:58:15.000Z 7000-50-84L52:57:16.000Z BP Sitting (Pre-Dialysis) 116/67 mmHg BP Sitting (Post-Dialysis) 114/62 mmHg Concurrent Access: falseCentral Venous Catheter (CVC) Chest (Left) ArterialAV Fistula Upper Arm (Right) Venous Sitting Heart Rate Pre-Dialysis 85 BPM Sitting H eart Rate Post-Dialysis 75 BPM Temperature Pre-Dialysis 97.5 degF Temperature Post -Dialysis 97.6 degF April 01, 2024 In-Center Hemodialysis Treatment 0245-59-13A07:59:00.000Z 7739-26-75S90:48:16.000Z BP Sitting (Pre-Dialysis) 155/84 mmHg BP Sitting (Post-Dialysis) 134/78 mmHg Concurrent Access: falseCentral Venous Catheter (CVC) Chest (Left) ArterialAV Fistula Upper Arm (Right) Venous BP Standing (Pre-Dialysis) 159/90 mmHg BP Standing (P ost-Dialysis) 135/69 mmHg Sitting Heart Rate Pre-Dialysis 64 BPM Sitting Heart Rate Post-Dialysis 68 BPM Standing Heart Rate Pre-Dialysis 68 BPM Standing Heart Rate Post-Dialysis 69 BPM Temperature Pre-Dialysis 97.2 degF Temperature Post -Dialysis 97.3 degF March 30, 2024 In-Center Hemodialysis Treatment 4608-05-60W58:52:00.000Z 7799-13-04F12:42:16.000Z BP Sitting (Pre-Dialysis) 172/95 mmHg BP Sitting (Post-Dialysis) 138/80 mmHg Concurrent Access: falseCentral Venous Catheter (CVC) Chest (Left) ArterialAV Fistula Upper Arm (Right) Venous BP Standing (Pre-Dialysis) 175/99 mmHg BP Standing (P ost-Dialysis) 147/85 mmHg Sitting Heart Rate Pre-Dialysis 76 BPM Sitting Heart Rate Post-Dialysis 65 BPM Standing Heart Rate Pre-Dialysis 83 BPM Standing Heart Rate Post-Dialysis 67 BPM Temperature Pre-Dialysis 97.3 degF Temperature Post -Dialysis 97.9 degF March 27, 2024 In-Center Hemodialysis Treatment 9750-83-21B05:01:15.000Z 0627-77-65Q95:46:16.000Z BP Sitting (Pre-Dialysis) 135/86 mmHg BP Sitting (Post-Dialysis) 108/63 mmHg Concurrent Access: falseCentral Venous Catheter (CVC) Chest (Left) ArterialAV Fistula Upper Arm (Right) Venous Sitting Heart Rate Pre-Dialysis 77 BPM BP Standing (Post-Dialysis) 110/65 mmHg Temperature Pre-Dialysis 97.1 degF Sitting Heart Ra te Post-Dialysis 64 BPM Standing Heart Rate Post-Neli lysis 64 BPM Temperature Post-Dialysis 97 .5 degF March 25, 2024 In-Center Hemodialysis Treatment [id number]:54:15.000Z 0045-47-18B40:41:16.000Z BP Sitting (Pre-Dialysis) 162/88 mmHg BP Sitting (Post-Dialysis) 116/65 mmHg Concurrent Access: falseCentral Venous Catheter (CVC) Chest (Left) ArterialAV Fistula Upper Arm (Right) Venous Sitting Heart Rate Pre-Dialysis 76 BPM BP Standing (Post-Dialysis) 106/65 mmHg Temperature Pre-Dialysis 97.6 degF Sitting Heart Ra te Post-Dialysis 63 BPM Standing Heart Rate Post-Neli lysis 67 BPM Temperature Post-Dialysis 97 .4 degF March 23, 2024 In-Center Hemodialysis Treatment [id number]:53:15.000Z 2602-07-99H50:38:16.000Z BP Sitting (Pre-Dialysis) 143/81 mmHg BP Sitting (Post-Dialysis) 122/75 mmHg Concurrent Access: falseCentral Venous Catheter (CVC) Chest (Left) ArterialAV Fistula Upper Arm (Right) Venous Sitting Heart Rate Pre-Dialysis 77 BPM BP Standing (Post-Dialysis) 114/72 mmHg Temperature Pre-Dialysis 97.6 degF Sitting Heart Ra te Post-Dialysis 67 BPM Standing Heart Rate Post-Neli lysis 67 BPM Temperature Post-Dialysis 97 .5 degF March 20, 2024 In-Center Hemodialysis Treatment [id number]:57:35.000Z 8891-62-64J65:42:36.000Z BP Sitting (Pre-Dialysis) 160/65 mmHg BP Sitting (Post-Dialysis) 131/81 mmHg Concurrent Access: falseCentral Venous Catheter (CVC) Chest (Left) ArterialAV Fistula Upper Arm (Right) Venous Sitting Heart Rate Pre-Dialysis 80 BPM BP Standing (Post-Dialysis) 124/75 mmHg Temperature Pre-Dialysis 97.5 degF Sitting Heart Ra te Post-Dialysis 65 BPM Standing Heart Rate Post-Neli lysis 64 BPM Temperature Post-Dialysis 97 .5 degF March 18, 2024 In-Center Hemodialysis Treatment 1236-27-14P88:01:00.000Z 0794-20-71R58:49:36.000Z BP Sitting (Pre-Dialysis) 151/75 mmHg BP Sitting (Post-Dialysis) 121/73 mmHg Concurrent Access: falseCentral Venous Catheter (CVC) Chest (Left) ArterialAV Fistula Upper Arm (Right) Venous BP Standing (Pre-Dialysis) 158/81 mmHg BP Standing (P ost-Dialysis) 123/74 mmHg Sitting Heart Rate Pre-Dialysis 77 BPM Sitting Heart Rate Post-Dialysis 66 BPM Standing Heart Rate Pre-Dialysis 79 BPM Standing Heart Rate Post-Dialysis 66 BPM Temperature Pre-Dialysis 97.1 degF Temperature Post -Dialysis 98.2 degF March 16, 2024 In-Center Hemodialysis Treatment [id number]:51:00.000Z 4682-57-58D82:39:35.000Z BP Sitting (Pre-Dialysis) 155/90 mmHg BP Sitting (Post-Dialysis) 130/74 mmHg Concurrent Access: falseCentral Venous Catheter (CVC) Chest (Left) ArterialAV Fistula Upper Arm (Right) Venous BP Standing (Pre-Dialysis) 159/89 mmHg BP Standing (P ost-Dialysis) 130/73 mmHg Sitting Heart Rate Pre-Dialysis 69 BPM Sitting Heart Rate Post-Dialysis 61 BPM Standing Heart Rate Pre-Dialysis 74 BPM Standing Heart Rate Post-Dialysis 61 BPM Temperature Pre-Dialysis 97.2 degF Temperature Post -Dialysis 97 degF March 13, 2024 In-Center Hemodialysis Treatment [id number]:48:54.000Z 7936-48-73Q76:38:54.000Z BP Sitting (Pre-Dialysis) 147/84 mmHg BP Sitting (Post-Dialysis) 134/86 mmHg Concurrent Access: falseCentral Venous Catheter (CVC) Chest (Left) ArterialAV Fistula Upper Arm (Right) Venous BP Standing (Pre-Dialysis) 150/81 mmHg Sitti ng Heart Rate Post-Dialysis 53 BPM Sitting Heart Rate Pre-Dialysis 64 BPM Temperatu re Post-Dialysis 97.6 degF Standing Heart Rate Pre-Dialysis 77 BPM Temperature Pre-Dialysis 97.1 degF March 11, 2024 In-Center Hemodialysis Treatment 2904-61-81P55:56:54.000Z 6493-98-08R26:47:54.000Z BP Sitting (Pre-Dialysis) 173/95 mmHg BP Sitting (Post-Dialysis) 140/86 mmHg Concurrent Access: falseCentral Venous Catheter (CVC) Chest (Left) ArterialAV Fistula Upper Arm (Right) Venous BP Standing (Pre-Dialysis) 176/99 mmHg BP Standing (P ost-Dialysis) 147/85 mmHg Sitting Heart Rate Pre-Dialysis 76 BPM Sitting Heart Rate Post-Dialysis 68 BPM Standing Heart Rate Pre-Dialysis 78 BPM Standing Heart Rate Post-Dialysis 67 BPM Temperature Pre-Dialysis 97.8 degF Temperature Post -Dialysis 97.8 degF March 09, 2024 In-Center Hemodialysis Treatment 8375-35-89H31:50:00.000Z 9262-92-46B61:40:43.000Z BP Sitting (Pre-Dialysis) 162/88 mmHg BP Sitting (Post-Dialysis) 141/68 mmHg Concurrent Access: falseCentral Venous Catheter (CVC) Chest (Left) ArterialAV Fistula Upper Arm (Right) Venous BP Standing (Pre-Dialysis) 163/92 mmHg BP Standing (P ost-Dialysis) 131/67 mmHg Sitting Heart Rate Pre-Dialysis 78 BPM Sitting Heart Rate Post-Dialysis 51 BPM Standing Heart Rate Pre-Dialysis 79 BPM Standing Heart Rate Post-Dialysis 62 BPM Temperature Pre-Dialysis 97.6 degF Temperature Post -Dialysis 97.8 degF March 06, 2024 In-Center Hemodialysis Treatment 2512-11-82Z28:51:08.000Z 6468-43-91J94:38:08.000Z BP Sitting (Pre-Dialysis) 173/95 mmHg BP Sitting (Post-Dialysis) 126/79 mmHg Concurrent Access: falseCentral Venous Catheter (CVC) Chest (Left) ArterialAV Fistula Upper Arm (Right) Venous Sitting Heart Rate Pre-Dialysis 76 BPM BP Standing (Post-Dialysis) 130/75 mmHg Temperature Pre-Dialysis 97.5 degF Sitting Heart Ra te Post-Dialysis 66 BPM Standing Heart Rate Post-Neli lysis 62 BPM Temperature Post-Dialysis 97 .6 degF March 04, 2024 In-Center Hemodialysis Treatment 5484-05-01W07:00:08.000Z 6975-04-53T54:45:08.000Z BP Sitting (Pre-Dialysis) 175/85 mmHg BP Sitting (Post-Dialysis) 97/58 mmHg Concurrent Access: falseCentral Venous Catheter (CVC) Chest (Left) ArterialAV Fistula Upper Arm (Right) Venous BP Standing (Pre-Dialysis) 169/75 mmHg BP Standing (P ost-Dialysis) 104/57 mmHg Sitting Heart Rate Pre-Dialysis 72 BPM Sitting Heart Rate Post-Dialysis 68 BPM Standing Heart Rate Pre-Dialysis 76 BPM Standing Heart Rate Post-Dialysis 68 BPM Temperature Pre-Dialysis 97.8 degF Temperature Post -Dialysis 97.8 degF March 02, 2024 In-Center Hemodialysis Treatment 3545-92-37J64:46:08.000Z 3273-18-96H04:37:08.000Z BP Sitting (Pre-Dialysis) 124/81 mmHg BP Sitting (Post-Dialysis) 140/85 mmHg Concurrent Access: falseCentral Venous Catheter (CVC) Chest (Left) ArterialAV Fistula Upper Arm (Right) Venous Sitting Heart Rate Pre-Dialysis 89 BPM BP Standing (Post-Dialysis) 137/79 mmHg Temperature Pre-Dialysis 97.3 degF Sitting Heart Ra te Post-Dialysis 75 BPM Standing Heart Rate Post-Neli lysis 75 BPM Temperature Post-Dialysis 97 .7 degF February 28, 2024 In-Center Hemodialysis Treatment 0761-13-88E90:00:25.000Z 6133-85-70F37:47:24.000Z BP Sitting (Pre-Dialysis) 165/96 mmHg BP Sitting (Post-Dialysis) 144/88 mmHg Concurrent Access: falseCentral Venous Catheter (CVC) Chest (Left) ArterialAV Fistula Upper Arm (Right) Venous Sitting Heart Rate Pre-Dialysis 79 BPM BP Standi ng (Post-Dialysis) 144/87 mmHg Temperature Pre-Dialysis 97 degF Sitting Heart Ra te Post-Dialysis 64 BPM Standing Heart Rate Post-Neli lysis 67 BPM Temperature Post-Dialysis 97 .8 degF February 26, 2024 In-Center Hemodialysis Treatment 7731-90-99S07:57:00.000Z 9093-96-85E92:49:25.000Z BP Sitting (Pre-Dialysis) 154/97 mmHg BP Sitting (Post-Dialysis) 147/86 mmHg Concurrent Access: falseCentral Venous Catheter (CVC) Chest (Left) ArterialAV Fistula Upper Arm (Right) Venous BP Standing (Pre-Dialysis) 168/91 mmHg BP Standing (P ost-Dialysis) 141/82 mmHg Sitting Heart Rate Pre-Dialysis 78 BPM Sitting Heart Rate Post-Dialysis 64 BPM Standing Heart Rate Pre-Dialysis 86 BPM Standing Heart Rate Post-Dialysis 68 BPM Temperature Pre-Dialysis 97.6 degF Temperature Post -Dialysis 98 degF February 21, 2024 In-Center Hemodialysis Treatment 9960-64-15L97:50:29.000Z 0086-18-08X19:30:29.000Z BP Sitting (Pre-Dialysis) 168/95 mmHg BP Sitting (Post-Dialysis) 148/73 mmHg Concurrent Access: falseCentral Venous Catheter (CVC) Chest (Left) ArterialAV Fistula Upper Arm (Right) Venous BP Standing (Pre-Dialysis) 168/57 mmHg BP Standing (P ost-Dialysis) 134/74 mmHg Sitting Heart Rate Pre-Dialysis 76 BPM Sitting Heart Rate Post-Dialysis 54 BPM Standing Heart Rate Pre-Dialysis 79 BPM Standing Heart Rate Post-Dialysis 69 BPM Temperature Pre-Dialysis 97.3 degF Temperature Post -Dialysis 97.8 degF February 19, 2024 In-Center Hemodialysis Treatment 5937-28-09D21:59:47.000Z 2731-32-59Q15:42:47.000Z BP Sitting (Pre-Dialysis) 160/92 mmHg BP Sitting (Post-Dialysis) 133/74 mmHg Concurrent Access: falseCentral Venous Catheter (CVC) Chest (Left) ArterialAV Fistula Upper Arm (Right) Venous BP Standing (Pre-Dialysis) 155/88 mmHg Sitti ng Heart Rate Post-Dialysis 79 BPM Sitting Heart Rate Pre-Dialysis 69 BPM Temperatu re Post-Dialysis 97.5 degF Standing Heart Rate Pre-Dialysis 70 BPM Temperature Pre-Dialysis 97.5 degF February 17, 2024 In-Center Hemodialysis Treatment 6229-29-48Y28:59:00.000Z 3700-06-80D74:17:47.000Z BP Sitting (Pre-Dialysis) 178/94 mmHg BP Sitting (Post-Dialysis) 118/63 mmHg Concurrent Access: falseCentral Venous Catheter (CVC) Chest (Left) ArterialAV Fistula Upper Arm (Right) Venous BP Standing (Pre-Dialysis) 156/105 mmHg Sitti ng Heart Rate Post-Dialysis 79 BPM Sitting Heart Rate Pre-Dialysis 72 BPM Temperatu re Post-Dialysis 97.9 degF Standing Heart Rate Pre-Dialysis 71 BPM Temperature Pre-Dialysis 97.6 degF February 14, 2024 In-Center Hemodialysis Treatment [id number]:57:07.000Z 0099-86-53V38:42:07.000Z BP Sitting (Pre-Dialysis) 164/99 mmHg BP Sitting (Post-Dialysis) 141/85 mmHg Concurrent Access: falseCentral Venous Catheter (CVC) Chest (Left) ArterialAV Fistula Upper Arm (Right) Venous BP Standing (Pre-Dialysis) 160/89 mmHg Sitti ng Heart Rate Post-Dialysis 72 BPM Sitting Heart Rate Pre-Dialysis 85 BPM Temperatu re Post-Dialysis 97.2 degF Standing Heart Rate Pre-Dialysis 80 BPM Temperature Pre-Dialysis 97.2 degF February 12, 2024 In-Center Hemodialysis Treatment 0751-59-67F78:59:06.000Z 0544-58-50N26:41:07.000Z BP Sitting (Pre-Dialysis) 146/80 mmHg BP Sitting (Post-Dialysis) 106/65 mmHg Concurrent Access: falseCentral Venous Catheter (CVC) Chest (Left) ArterialAV Fistula Upper Arm (Right) Venous Sitting Heart Rate Pre-Dialysis 86 BPM BP Standing (Post-Dialysis) 102/72 mmHg Temperature Pre-Dialysis 97.5 degF Sitting Heart Ra te Post-Dialysis 69 BPM Standing Heart Rate Post-Neli lysis 76 BPM Temperature Post-Dialysis 97 .5 degF February 10, 2024 In-Center Hemodialysis Treatment 0530-40-36U14:56:06.000Z 3430-33-41A50:48:07.000Z BP Sitting (Pre-Dialysis) 171/103 mmHg BP Sitting (Post-Dialysis) 145/88 mmHg Concurrent Access: falseCentral Venous Catheter (CVC) Chest (Left) ArterialAV Fistula Upper Arm (Right) Venous BP Standing (Pre-Dialysis) 169/94 mmHg BP Standing (P ost-Dialysis) 143/85 mmHg Sitting Heart Rate Pre-Dialysis 79 BPM Sitting Heart Rate Post-Dialysis 69 BPM Standing Heart Rate Pre-Dialysis 78 BPM Standing Heart Rate Post-Dialysis 72 BPM Temperature Pre-Dialysis 97.3 degF Temperature Post -Dialysis 97.8 degF February 07, 2024 In-Center Hemodialysis Treatment 6845-22-34K89:55:30.000Z 9467-44-11Q65:54:31.000Z BP Sitting (Pre-Dialysis) 187/103 mmHg BP Sitting (Post-Dialysis) 152/95 mmHg Concurrent Access: falseCentral Venous Catheter (CVC) Chest (Left) ArterialAV Fistula Upper Arm (Right) Venous Sitting Heart Rate Pre-Dialysis 77 BPM BP Standing (Post-Dialysis) 145/82 mmHg Temperature Pre-Dialysis 97.6 degF Sitting Heart Ra te Post-Dialysis 71 BPM Standing Heart Rate Post-Neli lysis 60 BPM Temperature Post-Dialysis 97 .5 degF February 05, 2024 In-Center Hemodialysis Treatment 8145-01-10N08:02:00.000Z 8354-07-51T45:52:31.000Z BP Sitting (Pre-Dialysis) 142/92 mmHg BP Sitting (Post-Dialysis) 129/84 mmHg Concurrent Access: falseCentral Venous Catheter (CVC) Chest (Left) ArterialAV Fistula Upper Arm (Right) Venous BP Standing (Pre-Dialysis) 166/96 mmHg BP Standing (P ost-Dialysis) 134/83 mmHg Sitting Heart Rate Pre-Dialysis 69 BPM Sitting Heart Rate Post-Dialysis 62 BPM Standing Heart Rate Pre-Dialysis 72 BPM Standing Heart Rate Post-Dialysis 60 BPM Temperature Pre-Dialysis 97.3 degF Temperature Post -Dialysis 97.8 degF February 03, 2024 In-Center Hemodialysis Treatment 7219-96-63J64:51:30.000Z 5204-19-50U17:36:31.000Z BP Sitting (Pre-Dialysis) 177/105 mmHg BP Sitting (Post-Dialysis) 139/85 mmHg Concurrent Access: falseCentral Venous Catheter (CVC) Chest (Left) ArterialAV Fistula Upper Arm (Right) Venous Sitting Heart Rate Pre-Dialysis 81 BPM Sitting H eart Rate Post-Dialysis 66 BPM Temperature Pre-Dialysis 97.5 degF Temperature Post -Dialysis 97.5 degF January 31, 2024 In-Center Hemodialysis Treatment 9214-54-78B13:47:22.000Z 0601-19-48H07:35:22.000Z BP Sitting (Pre-Dialysis) 150/94 mmHg BP Sitting (Post-Dialysis) 131/85 mmHg Concurrent Access: falseCentral Venous Catheter (CVC) Chest (Left) ArterialAV Fistula Upper Arm (Right) Venous Sitting Heart Rate Pre-Dialysis 84 BPM BP Standing (Post-Dialysis) 133/79 mmHg Temperature Pre-Dialysis 97.5 degF Sitting Heart Ra te Post-Dialysis 73 BPM Standing Heart Rate Post-Neli lysis 73 BPM Temperature Post-Dialysis 97 .5 degF January 29, 2024 In-Center Hemodialysis Treatment 9034-60-29Z40:04:17.000Z 8734-46-60T46:49:17.000Z BP Sitting (Pre-Dialysis) 169/91 mmHg BP Sitting (Post-Dialysis) 141/84 mmHg Concurrent Access: falseCentral Venous Catheter (CVC) Chest (Left) ArterialAV Fistula Upper Arm (Right) Venous BP Standing (Pre-Dialysis) 152/93 mmHg BP Standing (P ost-Dialysis) 141/85 mmHg Sitting Heart Rate Pre-Dialysis 71 BPM Sitting Heart Rate Post-Dialysis 61 BPM Standing Heart Rate Pre-Dialysis 72 BPM Standing Heart Rate Post-Dialysis 61 BPM Temperature Pre-Dialysis 97.8 degF Temperature Post -Dialysis 96.8 degF January 27, 2024 In-Center Hemodialysis Treatment 4022-76-50B74:50:17.000Z 2136-29-91H36:31:17.000Z BP Sitting (Pre-Dialysis) 157/95 mmHg BP Sitting (Post-Dialysis) 118/71 mmHg Concurrent Access: falseCentral Venous Catheter (CVC) Chest (Left) ArterialAV Fistula Upper Arm (Right) Venous BP Standing (Pre-Dialysis) 168/97 mmHg BP Standing (P ost-Dialysis) 120/71 mmHg Sitting Heart Rate Pre-Dialysis 71 BPM Sitting Heart Rate Post-Dialysis 57 BPM Standing Heart Rate Pre-Dialysis 71 BPM Standing Heart Rate Post-Dialysis 57 BPM Temperature Pre-Dialysis 97.3 degF Temperature Post -Dialysis 97.8 degF January 24, 2024 In-Center Hemodialysis Treatment 2705-85-00W63:54:00.000Z 1536-26-97Q57:52:42.000Z BP Sitting (Pre-Dialysis) 176/108 mmHg BP Sitting (Post-Dialysis) 116/77 mmHg Concurrent Access: falseCentral Venous Catheter (CVC) Chest (Left) Arterial BP Standing (Pre-Dialysis) 175/98 mmHg BP Standing (P ost-Dialysis) 114/71 mmHg Sitting Heart Rate Pre-Dialysis 72 BPM Sitting Heart Rate Post-Dialysis 60 BPM Standing Heart Rate Pre-Dialysis 74 BPM Standing Heart Rate Post-Dialysis 58 BPM Temperature Pre-Dialysis 97.3 degF Temperature Post -Dialysis 98.1 degF January 22, 2024 In-Center Hemodialysis Treatment [id number]:54:00.000Z [id number]:41:42.000Z BP Sitting (Pre-Dialysis) 168/102 mmHg BP Sitting (Post-Dialysis) 139/93 mmHg Concurrent Access: falseCentral Venous Catheter (CVC) Chest (Left) Arterial BP Standing (Pre-Dialysis) 166/103 mmHg BP Standing (P ost-Dialysis) 143/97 mmHg Sitting Heart Rate Pre-Dialysis 80 BPM Sitting Heart Rate Post-Dialysis 67 BPM Standing Heart Rate Pre-Dialysis 80 BPM Standing Heart Rate Post-Dialysis 70 BPM Temperature Pre-Dialysis 97.5 degF Temperature Post -Dialysis 97.8 degF January 20, 2024 In-Center Hemodialysis Treatment [id number]:59:17.000Z [id number]:47:17.000Z BP Sitting (Pre-Dialysis) 167/109 mmHg BP Sitting (Post-Dialysis) 129/68 mmHg Concurrent Access: falseCentral Venous Catheter (CVC) Chest (Left) Arterial BP Standing (Pre-Dialysis) 166/111 mmHg BP Standing (P ost-Dialysis) 132/89 mmHg Sitting Heart Rate Pre-Dialysis 71 BPM Sitting Heart Rate Post-Dialysis 65 BPM Standing Heart Rate Pre-Dialysis 69 BPM Standing Heart Rate Post-Dialysis 66 BPM Temperature Pre-Dialysis 98.2 degF Temperature Post -Dialysis 97.2 degF January 17, 2024 In-Center Hemodialysis Treatment [id number]:51:00.000Z [id number]:38:29.000Z BP Sitting (Pre-Dialysis) 162/97 mmHg BP Sitting (Post-Dialysis) 138/86 mmHg Concurrent Access: falseCentral Venous Catheter (CVC) Chest (Left) Arterial BP Standing (Pre-Dialysis) 172/108 mmHg BP Standing (P ost-Dialysis) 131/75 mmHg Sitting Heart Rate Pre-Dialysis 66 BPM Sitting Heart Rate Post-Dialysis 64 BPM Standing Heart Rate Pre-Dialysis 71 BPM Standing Heart Rate Post-Dialysis 65 BPM Temperature Pre-Dialysis 97.9 degF Temperature Post -Dialysis 98.1 degF January 15, 2024 In-Center Hemodialysis Treatment [id number]:00:00.000Z 7973-34-55B39:48:29.000Z BP Sitting (Pre-Dialysis) 177/96 mmHg BP Sitting (Post-Dialysis) 92/68 mmHg Concurrent Access: falseCentral Venous Catheter (CVC) Chest (Left) Arterial BP Standing (Pre-Dialysis) 163/110 mmHg BP Standing (P ost-Dialysis) 101/70 mmHg Sitting Heart Rate Pre-Dialysis 66 BPM Sitting Heart Rate Post-Dialysis 64 BPM Standing Heart Rate Pre-Dialysis 68 BPM Standing Heart Rate Post-Dialysis 79 BPM Temperature Pre-Dialysis 97.7 degF Temperature Post -Dialysis 97.4 degF January 13, 2024 In-Center Hemodialysis Treatment [id number]:54:00.000Z [id number]:38:29.000Z BP Sitting (Pre-Dialysis) 170/103 mmHg BP Sitting (Post-Dialysis) 107/72 mmHg Concurrent Access: falseCentral Venous Catheter (CVC) Chest (Left) Arterial BP Standing (Pre-Dialysis) 171/112 mmHg BP Standing (P ost-Dialysis) 115/78 mmHg Sitting Heart Rate Pre-Dialysis 69 BPM Sitting Heart Rate Post-Dialysis 61 BPM Standing Heart Rate Pre-Dialysis 78 BPM Standing Heart Rate Post-Dialysis 87 BPM Temperature Pre-Dialysis 97.3 degF Temperature Post -Dialysis 97.4 degF January 10, 2024 In-Center Hemodialysis Treatment [id number]:55:00.000Z [id number]:38:26.000Z BP Sitting (Pre-Dialysis) 207/112 mmHg BP Sitting (Post-Dialysis) 112/74 mmHg Concurrent Access: falseCentral Venous Catheter (CVC) Chest (Left) Arterial BP Standing (Pre-Dialysis) 175/111 mmHg BP Standing (P ost-Dialysis) 118/81 mmHg Sitting Heart Rate Pre-Dialysis 80 BPM Sitting Heart Rate Post-Dialysis 65 BPM Standing Heart Rate Pre-Dialysis 80 BPM Standing Heart Rate Post-Dialysis 67 BPM Temperature Pre-Dialysis 97.8 degF Temperature Post -Dialysis 97.9 degF January 08, 2024 In-Center Hemodialysis Treatment 5629-24-19D40:42:00.000Z 6166-37-80J10:43:35.000Z BP Sitting (Pre-Dialysis) 152/96 mmHg BP Sitting (Post-Dialysis) 127/85 mmHg Concurrent Access: falseCentral Venous Catheter (CVC) Chest (Left) Arterial BP Standing (Pre-Dialysis) 154/94 mmHg BP Standing (P ost-Dialysis) 127/79 mmHg Sitting Heart Rate Pre-Dialysis 86 BPM Sitting Heart Rate Post-Dialysis 68 BPM Standing Heart Rate Pre-Dialysis 91 BPM Standing Heart Rate Post-Dialysis 64 BPM Temperature Pre-Dialysis 97.6 degF Temperature Post -Dialysis 97.6 degF January 06, 2024 In-Center Hemodialysis Treatment [id number]:00:00.000Z 6348-26-67Q72:46:35.000Z BP Sitting (Pre-Dialysis) 170/111 mmHg BP Sitting (Post-Dialysis) 154/103 mmHg Concurrent Access: falseCentral Venous Catheter (CVC) Chest (Left) Arterial BP Standing (Pre-Dialysis) 168/112 mmHg BP Standing (P ost-Dialysis) 156/110 mmHg Sitting Heart Rate Pre-Dialysis 77 BPM Sitting Heart Rate Post-Dialysis 69 BPM Standing Heart Rate Pre-Dialysis 78 BPM Standing Heart Rate Post-Dialysis 69 BPM Temperature Pre-Dialysis 97.6 degF Temperature Post -Dialysis 97.8 degF January 03, 2024 In-Center Hemodialysis Treatment [id number]:59:43.000Z [id number]:42:44.000Z BP Sitting (Pre-Dialysis) 167/109 mmHg BP Sitting (Post-Dialysis) 118/79 mmHg Concurrent Access: falseCentral Venous Catheter (CVC) Chest (Left) Arterial Sitting Heart Rate Pre-Dialysis 79 BPM BP Standing (Post-Dialysis) 134/78 mmHg Temperature Pre-Dialysis 97.5 degF Sitting Heart Ra te Post-Dialysis 70 BPM Standing Heart Rate Post-Neli lysis 74 BPM Temperature Post-Dialysis 97 .5 degF January 01, 2024 In-Center Hemodialysis Treatment [id number]:57:00.000Z 6205-86-02N42:43:44.000Z BP Sitting (Pre-Dialysis) 163/102 mmHg BP Sitting (Post-Dialysis) 142/95 mmHg Concurrent Access: falseCentral Venous Catheter (CVC) Chest (Left) Arterial BP Standing (Pre-Dialysis) 144/102 mmHg BP Standing (P ost-Dialysis) 144/91 mmHg Sitting Heart Rate Pre-Dialysis 82 BPM Sitting Heart Rate Post-Dialysis 71 BPM Standing Heart Rate Pre-Dialysis 84 BPM Standing Heart Rate Post-Dialysis 72 BPM Temperature Pre-Dialysis 97.6 degF Temperature Post -Dialysis 97.2 degF December 30, 2023 In-Center Hemodialysis Treatment [id number]:57:43.000Z [id number]:42:44.000Z BP Sitting (Pre-Dialysis) 175/110 mmHg BP Sitting (Post-Dialysis) 132/90 mmHg Concurrent Access: falseCentral Venous Catheter (CVC) Chest (Left) Arterial Sitting Heart Rate Pre-Dialysis 82 BPM BP Standing (Post-Dialysis) 127/87 mmHg Temperature Pre-Dialysis 97.5 degF Sitting Heart Ra te Post-Dialysis 88 BPM Standing Heart Rate Post-Neli lysis 80 BPM Temperature Post-Dialysis 97 .5 degF December 27, 2023 In-Center Hemodialysis Treatment [id number]:43:21.000Z [id number]:31:21.000Z BP Sitting (Pre-Dialysis) 166/101 mmHg BP Sitting (Post-Dialysis) 125/78 mmHg Concurrent Access: falseCentral Venous Catheter (CVC) Chest (Left) Arterial Sitting Heart Rate Pre-Dialysis 86 BPM BP Standing (Post-Dialysis) 116/74 mmHg Temperature Pre-Dialysis 97.6 degF Sitting Heart Ra te Post-Dialysis 65 BPM Standing Heart Rate Post-Neli lysis 77 BPM Temperature Post-Dialysis 97 .6 degF December 25, 2023 In-Center Hemodialysis Treatment [id number]:52:00.000Z 0478-23-98Y04:13:21.000Z BP Sitting (Pre-Dialysis) 170/101 mmHg BP Sitting (Post-Dialysis) 148/99 mmHg Concurrent Access: falseCentral Venous Catheter (CVC) Chest (Left) Arterial BP Standing (Pre-Dialysis) 167/102 mmHg BP Standing (P ost-Dialysis) 157/100 mmHg Sitting Heart Rate Pre-Dialysis 79 BPM Sitting Heart Rate Post-Dialysis 71 BPM Standing Heart Rate Pre-Dialysis 82 BPM Standing Heart Rate Post-Dialysis 72 BPM Temperature Pre-Dialysis 97.8 degF Temperature Post -Dialysis 97.3 degF December 23, 2023 In-Center Hemodialysis Treatment [id number]:52:00.000Z [id number]:39:21.000Z BP Sitting (Pre-Dialysis) 158/104 mmHg BP Sitting (Post-Dialysis) 151/101 mmHg Concurrent Access: falseCentral Venous Catheter (CVC) Chest (Left) Arterial BP Standing (Pre-Dialysis) 155/92 mmHg BP Standing (P ost-Dialysis) 145/100 mmHg Sitting Heart Rate Pre-Dialysis 77 BPM Sitting Heart Rate Post-Dialysis 66 BPM Standing Heart Rate Pre-Dialysis 74 BPM Standing Heart Rate Post-Dialysis 68 BPM Temperature Pre-Dialysis 97.5 degF Temperature Post -Dialysis 97.6 degF December 20, 2023 In-Center Hemodialysis Treatment 2432-68-62Y15:00:11.000Z 9531-94-48F68:46:11.000Z BP Sitting (Pre-Dialysis) 164/113 mmHg BP Sitting (Post-Dialysis) 145/95 mmHg Concurrent Access: falseCentral Venous Catheter (CVC) Chest (Left) Arterial BP Standing (Pre-Dialysis) 166/99 mmHg BP Standing (P ost-Dialysis) 149/94 mmHg Sitting Heart Rate Pre-Dialysis 79 BPM Sitting Heart Rate Post-Dialysis 63 BPM Standing Heart Rate Pre-Dialysis 82 BPM Standing Heart Rate Post-Dialysis 64 BPM Temperature Pre-Dialysis 97.6 degF Temperature Post -Dialysis 97.6 degF December 18, 2023 In-Center Hemodialysis Treatment [id number]:53:25.000Z [id number]:38:25.000Z BP Sitting (Pre-Dialysis) 141/112 mmHg BP Sitting (Post-Dialysis) 122/85 mmHg Concurrent Access: falseCentral Venous Catheter (CVC) Chest (Left) Arterial BP Standing (Pre-Dialysis) 187/90 mmHg BP Standing (P ost-Dialysis) 119/85 mmHg Sitting Heart Rate Pre-Dialysis 76 BPM Sitting Heart Rate Post-Dialysis 60 BPM Standing Heart Rate Pre-Dialysis 74 BPM Standing Heart Rate Post-Dialysis 74 BPM Temperature Pre-Dialysis 97.7 degF Temperature Post -Dialysis 97.8 degF December 16, 2023 In-Center Hemodialysis Treatment [id number]:53:00.000Z [id number]:17:25.000Z BP Sitting (Pre-Dialysis) 168/93 mmHg BP Sitting (Post-Dialysis) 113/71 mmHg Concurrent Access: falseCentral Venous Catheter (CVC) Chest (Left) Arterial BP Standing (Pre-Dialysis) 171/111 mmHg BP Standing (P ost-Dialysis) 119/78 mmHg Sitting Heart Rate Pre-Dialysis 78 BPM Sitting Heart Rate Post-Dialysis 64 BPM Standing Heart Rate Pre-Dialysis 78 BPM Standing Heart Rate Post-Dialysis 63 BPM Temperature Pre-Dialysis 97.9 degF Temperature Post -Dialysis 97.9 degF December 13, 2023 In-Center Hemodialysis Treatment [id number]:50:32.000Z 9535-16-12F49:32:32.000Z BP Sitting (Pre-Dialysis) 177/108 mmHg BP Sitting (Post-Dialysis) 104/69 mmHg Concurrent Access: falseCentral Venous Catheter (CVC) Chest (Left) Arterial BP Standing (Pre-Dialysis) 170/116 mmHg BP Standing (P ost-Dialysis) 100/69 mmHg Sitting Heart Rate Pre-Dialysis 82 BPM Sitting Heart Rate Post-Dialysis 69 BPM Standing Heart Rate Pre-Dialysis 85 BPM Standing Heart Rate Post-Dialysis 59 BPM Temperature Pre-Dialysis 97.6 degF Temperature Post -Dialysis 97.6 degF December 11, 2023 In-Center Hemodialysis Treatment 2661-02-00G54:45:32.000Z 8578-15-80E04:30:32.000Z BP Sitting (Pre-Dialysis) 159/105 mmHg BP Sitting (Post-Dialysis) 114/77 mmHg Concurrent Access: falseCentral Venous Catheter (CVC) Chest (Left) Arterial BP Standing (Pre-Dialysis) 153/90 mmHg BP Standing (P ost-Dialysis) 131/81 mmHg Sitting Heart Rate Pre-Dialysis 80 BPM Sitting Heart Rate Post-Dialysis 63 BPM Standing Heart Rate Pre-Dialysis 83 BPM Standing Heart Rate Post-Dialysis 70 BPM Temperature Pre-Dialysis 97.5 degF Temperature Post -Dialysis 97.8 degF December 09, 2023 In-Center Hemodialysis Treatment 6501-37-90I15:23:00.000Z 8595-52-60U51:40:32.000Z BP Sitting (Pre-Dialysis) 165/100 mmHg BP Sitting (Post-Dialysis) 112/75 mmHg Concurrent Access: falseCentral Venous Catheter (CVC) Chest (Left) Arterial BP Standing (Pre-Dialysis) 161/96 mmHg BP Standing (P ost-Dialysis) 109/72 mmHg Sitting Heart Rate Pre-Dialysis 78 BPM Sitting Heart Rate Post-Dialysis 67 BPM Standing Heart Rate Pre-Dialysis 78 BPM Standing Heart Rate Post-Dialysis 64 BPM Temperature Pre-Dialysis 97.6 degF Temperature Post -Dialysis 97.8 degF December 06, 2023 In-Center Hemodialysis Treatment [id number]:55:00.000Z 9926-93-54G54:40:06.000Z BP Sitting (Pre-Dialysis) 172/111 mmHg BP Sitting (Post-Dialysis) 146/95 mmHg Concurrent Access: falseCentral Venous Catheter (CVC) Chest (Left) Arterial BP Standing (Pre-Dialysis) 161/98 mmHg BP Standing (P ost-Dialysis) 143/90 mmHg Sitting Heart Rate Pre-Dialysis 81 BPM Sitting Heart Rate Post-Dialysis 65 BPM Standing Heart Rate Pre-Dialysis 85 BPM Standing Heart Rate Post-Dialysis 65 BPM Temperature Pre-Dialysis 97.5 degF Temperature Post -Dialysis 97.9 degF December 04, 2023 In-Center Hemodialysis Treatment 1317-89-11T09:52:00.000Z 0925-97-19D62:44:22.000Z BP Sitting (Pre-Dialysis) 171/112 mmHg BP Sitting (Post-Dialysis) 140/94 mmHg Concurrent Access: falseCentral Venous Catheter (CVC) Chest (Left) Arterial BP Standing (Pre-Dialysis) 163/109 mmHg BP Standing (P ost-Dialysis) 128/77 mmHg Sitting Heart Rate Pre-Dialysis 80 BPM Sitting Heart Rate Post-Dialysis 66 BPM Standing Heart Rate Pre-Dialysis 81 BPM Standing Heart Rate Post-Dialysis 72 BPM Temperature Pre-Dialysis 97.6 degF Temperature Post -Dialysis 97 degF December 02, 2023 In-Center Hemodialysis Treatment [id number]:57:00.000Z 1874-33-96H18:44:16.000Z BP Sitting (Pre-Dialysis) 180/109 mmHg BP Sitting (Post-Dialysis) 149/103 mmHg Concurrent Access: falseCentral Venous Catheter (CVC) Chest (Left) Arterial BP Standing (Pre-Dialysis) 147/117 mmHg BP Standing (P ost-Dialysis) 149/106 mmHg Sitting Heart Rate Pre-Dialysis 74 BPM Sitting Heart Rate Post-Dialysis 71 BPM Standing Heart Rate Pre-Dialysis 52 BPM Standing Heart Rate Post-Dialysis 70 BPM Temperature Pre-Dialysis 97.6 degF Temperature Post -Dialysis 97.6 degF November 29, 2023 In-Center Hemodialysis Treatment [id number]:49:15.000Z [id number]:38:15.000Z BP Sitting (Pre-Dialysis) 164/101 mmHg BP Sitting (Post-Dialysis) 141/96 mmHg Concurrent Access: falseCentral Venous Catheter (CVC) Chest (Left) Arterial Sitting Heart Rate Pre-Dialysis 86 BPM BP Standing (Post-Dialysis) 135/92 mmHg Temperature Pre-Dialysis 97.6 degF Sitting Heart Ra te Post-Dialysis 73 BPM Standing Heart Rate Post-Neli lysis 80 BPM Temperature Post-Dialysis 97 .6 degF November 27, 2023 In-Center Hemodialysis Treatment 3283-13-05S14:53:00.000Z 2934-12-61N32:42:15.000Z BP Sitting (Pre-Dialysis) 173/114 mmHg BP Sitting (Post-Dialysis) 128/82 mmHg Concurrent Access: falseCentral Venous Catheter (CVC) Chest (Left) Arterial BP Standing (Pre-Dialysis) 169/114 mmHg BP Standing (P ost-Dialysis) 121/71 mmHg Sitting Heart Rate Pre-Dialysis 86 BPM Sitting Heart Rate Post-Dialysis 68 BPM Standing Heart Rate Pre-Dialysis 88 BPM Standing Heart Rate Post-Dialysis 81 BPM Temperature Pre-Dialysis 97.5 degF Temperature Post -Dialysis 98 degF November 25, 2023 In-Center Hemodialysis Treatment [id number]:50:00.000Z 9436-64-89Z38:39:15.000Z BP Sitting (Pre-Dialysis) 171/110 mmHg BP Sitting (Post-Dialysis) 126/82 mmHg Concurrent Access: falseCentral Venous Catheter (CVC) Chest (Left) Arterial BP Standing (Pre-Dialysis) 171/109 mmHg BP Standing (P ost-Dialysis) 126/85 mmHg Sitting Heart Rate Pre-Dialysis 78 BPM Sitting Heart Rate Post-Dialysis 68 BPM Standing Heart Rate Pre-Dialysis 80 BPM Standing Heart Rate Post-Dialysis 81 BPM Temperature Pre-Dialysis 97.6 degF Temperature Post -Dialysis 98.1 degF November 22, 2023 In-Center Hemodialysis Treatment [id number]:51:00.000Z 1285-09-38Z94:33:00.000Z BP Sitting (Pre-Dialysis) 167/105 mmHg BP Sitting (Post-Dialysis) 142/85 mmHg Concurrent Access: falseCentral Venous Catheter (CVC) Chest (Left) Arterial BP Standing (Pre-Dialysis) 172/108 mmHg BP Standing (P ost-Dialysis) 144/85 mmHg Sitting Heart Rate Pre-Dialysis 75 BPM Sitting Heart Rate Post-Dialysis 60 BPM Standing Heart Rate Pre-Dialysis 76 BPM Standing Heart Rate Post-Dialysis 60 BPM Temperature Pre-Dialysis 97.7 degF Temperature Post -Dialysis 97.6 degF November 20, 2023 In-Center Hemodialysis Treatment [id number]:48:34.000Z 8234-88-75R38:35:34.000Z BP Sitting (Pre-Dialysis) 168/115 mmHg BP Sitting (Post-Dialysis) 168/107 mmHg Concurrent Access: falseCentral Venous Catheter (CVC) Chest (Left) Arterial BP Standing (Pre-Dialysis) 189/127 mmHg BP Standing (P ost-Dialysis) 159/101 mmHg Sitting Heart Rate Pre-Dialysis 79 BPM Sitting Heart Rate Post-Dialysis 69 BPM Standing Heart Rate Pre-Dialysis 84 BPM Standing Heart Rate Post-Dialysis 69 BPM Temperature Pre-Dialysis 97.8 degF Temperature Post -Dialysis 97.8 degF November 18, 2023 In-Center Hemodialysis Treatment [id number]:49:34.000Z 8546-75-73O80:40:34.000Z BP Sitting (Pre-Dialysis) 159/96 mmHg BP Sitting (Post-Dialysis) 150/89 mmHg Concurrent Access: falseCentral Venous Catheter (CVC) Chest (Left) Arterial BP Standing (Pre-Dialysis) 155/98 mmHg BP Standing (P ost-Dialysis) 154/93 mmHg Sitting Heart Rate Pre-Dialysis 71 BPM Sitting Heart Rate Post-Dialysis 68 BPM Standing Heart Rate Pre-Dialysis 71 BPM Standing Heart Rate Post-Dialysis 69 BPM Temperature Pre-Dialysis 97.8 degF Temperature Post -Dialysis 97.8 degF November 15, 2023 In-Center Hemodialysis Treatment 0629-36-47F63:58:00.000Z 9248-38-85Q37:46:09.000Z BP Sitting (Pre-Dialysis) 167/93 mmHg BP Sitting (Post-Dialysis) 148/93 mmHg Concurrent Access: falseCentral Venous Catheter (CVC) Chest (Left) Arterial BP Standing (Pre-Dialysis) 167/111 mmHg BP Standing (P ost-Dialysis) 144/84 mmHg Sitting Heart Rate Pre-Dialysis 77 BPM Sitting Heart Rate Post-Dialysis 68 BPM Standing Heart Rate Pre-Dialysis 84 BPM Standing Heart Rate Post-Dialysis 66 BPM Temperature Pre-Dialysis 97.9 degF Temperature Post -Dialysis 97.9 degF November 13, 2023 In-Center Hemodialysis Treatment 1558-06-71L45:55:07.000Z 9833-00-50J56:48:08.000Z BP Sitting (Pre-Dialysis) 175/110 mmHg BP Sitting (Post-Dialysis) 159/94 mmHg Concurrent Access: falseCentral Venous Catheter (CVC) Chest (Left) Arterial BP Standing (Pre-Dialysis) 167/105 mmHg BP Standing (P ost-Dialysis) 153/91 mmHg Sitting Heart Rate Pre-Dialysis 88 BPM Sitting Heart Rate Post-Dialysis 66 BPM Standing Heart Rate Pre-Dialysis 90 BPM Standing Heart Rate Post-Dialysis 65 BPM Temperature Pre-Dialysis 97.8 degF Temperature Post -Dialysis 97.8 degF November 11, 2023 In-Center Hemodialysis Treatment 1204-17-60I70:52:00.000Z 5550-26-44D66:43:08.000Z BP Sitting (Pre-Dialysis) 173/100 mmHg BP Sitting (Post-Dialysis) 157/91 mmHg Concurrent Access: falseCentral Venous Catheter (CVC) Chest (Left) Arterial BP Standing (Pre-Dialysis) 175/102 mmHg BP Standing (P ost-Dialysis) 156/85 mmHg Sitting Heart Rate Pre-Dialysis 83 BPM Sitting Heart Rate Post-Dialysis 82 BPM Standing Heart Rate Pre-Dialysis 84 BPM Standing Heart Rate Post-Dialysis 87 BPM Temperature Pre-Dialysis 97.6 degF Temperature Post -Dialysis 97.6 degF November 08, 2023 In-Center Hemodialysis Treatment [id number]:59:00.000Z 9584-88-48L69:47:09.000Z BP Sitting (Pre-Dialysis) 161/103 mmHg BP Sitting (Post-Dialysis) 146/90 mmHg Concurrent Access: falseCentral Venous Catheter (CVC) Chest (Left) Arterial BP Standing (Pre-Dialysis) 164/98 mmHg BP Standing (P ost-Dialysis) 140/87 mmHg Sitting Heart Rate Pre-Dialysis 85 BPM Sitting Heart Rate Post-Dialysis 71 BPM Standing Heart Rate Pre-Dialysis 82 BPM Standing Heart Rate Post-Dialysis 85 BPM Temperature Pre-Dialysis 98 degF Temperature Post -Dialysis 97.4 degF November 06, 2023 In-Center Hemodialysis Treatment [id number]:54:09.000Z 1486-93-42Y46:38:09.000Z BP Sitting (Pre-Dialysis) 171/84 mmHg BP Sitting (Post-Dialysis) 173/18 mmHg Concurrent Access: falseCentral Venous Catheter (CVC) Chest (Left) Arterial BP Standing (Pre-Dialysis) 169/89 mmHg BP Standing (P ost-Dialysis) 178/104 mmHg Sitting Heart Rate Pre-Dialysis 89 BPM Sitting Heart Rate Post-Dialysis 69 BPM Standing Heart Rate Pre-Dialysis 74 BPM Standing Heart Rate Post-Dialysis 70 BPM Temperature Pre-Dialysis 97.8 degF Temperature Post -Dialysis 97.5 degF November 04, 2023 In-Center Hemodialysis Treatment [id number]:59:00.000Z 7128-51-09J63:50:09.000Z BP Sitting (Pre-Dialysis) 193/93 mmHg BP Sitting (Post-Dialysis) 159/104 mmHg Concurrent Access: falseCentral Venous Catheter (CVC) Chest (Left) Arterial BP Standing (Pre-Dialysis) 208/111 mmHg BP Standing (P ost-Dialysis) 160/100 mmHg Sitting Heart Rate Pre-Dialysis 85 BPM Sitting Heart Rate Post-Dialysis 72 BPM Standing Heart Rate Pre-Dialysis 85 BPM Standing Heart Rate Post-Dialysis 74 BPM Temperature Pre-Dialysis 97.6 degF Temperature Post -Dialysis 97.3 degF November 01, 2023 In-Center Hemodialysis Treatment [id number]:43:45.000Z 6475-21-81J06:30:45.000Z BP Sitting (Pre-Dialysis) 172/88 mmHg BP Sitting (Post-Dialysis) 154/91 mmHg Concurrent Access: falseCentral Venous Catheter (CVC) Chest (Left) Arterial Sitting Heart Rate Pre-Dialysis 95 BPM BP Standing (Post-Dialysis) 139/84 mmHg Temperature Pre-Dialysis 97.6 degF Sitting Heart Ra te Post-Dialysis 71 BPM Standing Heart Rate Post-Neli lysis 86 BPM Temperature Post-Dialysis 97 .6 degF October 30, 2023 In-Center Hemodialysis Treatment [id number]:54:00.000Z 8657-02-40R81:40:45.000Z BP Sitting (Pre-Dialysis) 174/101 mmHg BP Sitting (Post-Dialysis) 142/93 mmHg Concurrent Access: falseCentral Venous Catheter (CVC) Chest (Left) Arterial BP Standing (Pre-Dialysis) 145/96 mmHg Sitti ng Heart Rate Post-Dialysis 64 BPM Sitting Heart Rate Pre-Dialysis 78 BPM Temperatu re Post-Dialysis 97.5 degF Standing Heart Rate Pre-Dialysis 84 BPM Temperature Pre-Dialysis 97.9 degF October 28, 2023 In-Center Hemodialysis Treatment [id number]:13:00.000Z 4687-14-28B27:54:45.000Z BP Sitting (Pre-Dialysis) 189/102 mmHg BP Sitting (Post-Dialysis) 171/64 mmHg Concurrent Access: falseCentral Venous Catheter (CVC) Chest (Left) Arterial Sitting Heart Rate Pre-Dialysis 84 BPM BP Standing (Post-Dialysis) 161/72 mmHg Temperature Pre-Dialysis 98.4 degF Sitting Heart Ra te Post-Dialysis 68 BPM Standing Heart Rate Post-Neli lysis 66 BPM Temperature Post-Dialysis 98 .1 degF October 25, 2023 In-Center Hemodialysis Treatment [id number]:57:00.000Z 2105-03-74A29:46:41.000Z BP Sitting (Pre-Dialysis) 173/105 mmHg BP Sitting (Post-Dialysis) 142/88 mmHg Concurrent Access: falseCentral Venous Catheter (CVC) Chest (Left) Arterial BP Standing (Pre-Dialysis) 171/111 mmHg BP Standing (P ost-Dialysis) 127/83 mmHg Sitting Heart Rate Pre-Dialysis 81 BPM Sitting Heart Rate Post-Dialysis 69 BPM Standing Heart Rate Pre-Dialysis 81 BPM Standing Heart Rate Post-Dialysis 69 BPM Temperature Pre-Dialysis 97.5 degF Temperature Post -Dialysis 97.2 degF October 23, 2023 In-Center Hemodialysis Treatment 6732-67-75O74:59:00.000Z 9340-02-50X28:46:18.000Z BP Sitting (Pre-Dialysis) 166/92 mmHg BP Sitting (Post-Dialysis) 154/96 mmHg Concurrent Access: falseCentral Venous Catheter (CVC) Chest (Left) Arterial BP Standing (Pre-Dialysis) 157/88 mmHg BP Standing (P ost-Dialysis) 157/91 mmHg Sitting Heart Rate Pre-Dialysis 81 BPM Sitting Heart Rate Post-Dialysis 73 BPM Standing Heart Rate Pre-Dialysis 78 BPM Standing Heart Rate Post-Dialysis 75 BPM Temperature Pre-Dialysis 97.6 degF Temperature Post -Dialysis 97.2 degF October 21, 2023 In-Center Hemodialysis Treatment 0850-34-23N53:59:00.000Z 9933-96-78B80:44:18.000Z BP Sitting (Pre-Dialysis) 163/101 mmHg BP Sitting (Post-Dialysis) 129/83 mmHg Concurrent Access: falseCentral Venous Catheter (CVC) Chest (Left) Arterial BP Standing (Pre-Dialysis) 181/106 mmHg BP Standing (P ost-Dialysis) 130/86 mmHg Sitting Heart Rate Pre-Dialysis 83 BPM Sitting Heart Rate Post-Dialysis 70 BPM Standing Heart Rate Pre-Dialysis 89 BPM Standing Heart Rate Post-Dialysis 70 BPM Temperature Pre-Dialysis 97.9 degF Temperature Post -Dialysis 97.9 degF October 17, 2023 In-Center Hemodialysis Treatment [id number]:30:00.000Z 5905-90-90U20:47:33.000Z BP Sitting (Pre-Dialysis) 168/98 mmHg BP Sitting (Post-Dialysis) 145/98 mmHg Concurrent Access: falseCentral Venous Catheter (CVC) Chest (Left) Arterial BP Standing (Pre-Dialysis) 164/83 mmHg BP Standing (P ost-Dialysis) 156/103 mmHg Sitting Heart Rate Pre-Dialysis 80 BPM Sitting Heart Rate Post-Dialysis 72 BPM Standing Heart Rate Pre-Dialysis 91 BPM Standing Heart Rate Post-Dialysis 73 BPM Temperature Pre-Dialysis 97.6 degF Temperature Post -Dialysis 97.8 degF October 15, 2023 In-Center Hemodialysis Treatment 5009-50-42Y72:25:00.000Z 1016-92-52K38:29:32.000Z BP Sitting (Pre-Dialysis) 166/106 mmHg BP Sitting (Post-Dialysis) 121/85 mmHg Concurrent Access: falseCentral Venous Catheter (CVC) Chest (Left) Arterial BP Standing (Pre-Dialysis) 177/111 mmHg BP Standing (P ost-Dialysis) 130/87 mmHg Sitting Heart Rate Pre-Dialysis 81 BPM Sitting Heart Rate Post-Dialysis 79 BPM Standing Heart Rate Pre-Dialysis 82 BPM Standing Heart Rate Post-Dialysis 76 BPM Temperature Pre-Dialysis 97.6 degF Temperature Post -Dialysis 97.3 degF October 13, 2023 In-Center Hemodialysis Treatment 5864-58-05O30:27:46.000Z 1055-76-35Y05:16:46.000Z BP Sitting (Pre-Dialysis) 165/104 mmHg BP Sitting (Post-Dialysis) 131/93 mmHg Concurrent Access: falseCentral Venous Catheter (CVC) Chest (Left) Arterial BP Standing (Pre-Dialysis) 158/100 mmHg BP Standing (P ost-Dialysis) 131/85 mmHg Sitting Heart Rate Pre-Dialysis 77 BPM Sitting Heart Rate Post-Dialysis 70 BPM Standing Heart Rate Pre-Dialysis 78 BPM Standing Heart Rate Post-Dialysis 68 BPM Temperature Pre-Dialysis 97.6 degF Temperature Post -Dialysis 97.6 degF October 10, 2023 In-Center Hemodialysis Treatment [id number]:21:00.000Z 1215-49-87X30:54:53.000Z BP Sitting (Pre-Dialysis) 171/107 mmHg BP Sitting (Post-Dialysis) 135/95 mmHg Concurrent Access: falseCentral Venous Catheter (CVC) Chest (Left) Arterial BP Standing (Pre-Dialysis) 169/116 mmHg BP Standing (P ost-Dialysis) 147/104 mmHg Sitting Heart Rate Pre-Dialysis 80 BPM Sitting Heart Rate Post-Dialysis 71 BPM Standing Heart Rate Pre-Dialysis 84 BPM Standing Heart Rate Post-Dialysis 81 BPM Temperature Pre-Dialysis 97.5 degF Temperature Post -Dialysis 97.9 degF October 08, 2023 In-Center Hemodialysis Treatment 6831-40-92H16:40:00.000Z 3688-85-13P81:17:53.000Z BP Sitting (Pre-Dialysis) 159/88 mmHg BP Sitting (Post-Dialysis) 105/79 mmHg Concurrent Access: falseCentral Venous Catheter (CVC) Chest (Left) Arterial BP Standing (Pre-Dialysis) 160/99 mmHg BP Standing (P ost-Dialysis) 124/84 mmHg Sitting Heart Rate Pre-Dialysis 81 BPM Sitting Heart Rate Post-Dialysis 96 BPM Standing Heart Rate Pre-Dialysis 80 BPM Standing Heart Rate Post-Dialysis 79 BPM Temperature Pre-Dialysis 97.5 degF Temperature Post -Dialysis 97.8 degF October 06, 2023 In-Center Hemodialysis Treatment 7619-86-79S33:01:00.000Z 1840-87-26H33:33:57.000Z BP Sitting (Pre-Dialysis) 159/94 mmHg BP Sitting (Post-Dialysis) 113/73 mmHg Concurrent Access: falseCentral Venous Catheter (CVC) Chest (Left) Arterial BP Standing (Pre-Dialysis) 157/100 mmHg BP Standing (P ost-Dialysis) 118/77 mmHg Sitting Heart Rate Pre-Dialysis 74 BPM Sitting Heart Rate Post-Dialysis 75 BPM Standing Heart Rate Pre-Dialysis 78 BPM Standing Heart Rate Post-Dialysis 72 BPM Temperature Pre-Dialysis 97.8 degF Temperature Post -Dialysis 97.3 degF October 03, 2023 In-Center Hemodialysis Treatment 7901-17-70T90:25:01.000Z 4829-31-22G57:17:01.000Z BP Sitting (Pre-Dialysis) 153/88 mmHg BP Sitting (Post-Dialysis) 146/100 mmHg Concurrent Access: falseCentral Venous Catheter (CVC) Chest (Left) Arterial BP Standing (Pre-Dialysis) 164/115 mmHg BP Standing (P ost-Dialysis) 148/101 mmHg Sitting Heart Rate Pre-Dialysis 71 BPM Sitting Heart Rate Post-Dialysis 73 BPM Standing Heart Rate Pre-Dialysis 79 BPM Standing Heart Rate Post-Dialysis 74 BPM Temperature Pre-Dialysis 97.8 degF Temperature Post -Dialysis 97.3 degF October 01, 2023 In-Center Hemodialysis Treatment 5212-02-02F28:25:00.000Z 9908-57-07N92:45:01.000Z BP Sitting (Pre-Dialysis) 160/110 mmHg BP Sitting (Post-Dialysis) 141/88 mmHg Concurrent Access: falseCentral Venous Catheter (CVC) Chest (Left) Arterial BP Standing (Pre-Dialysis) 161/102 mmHg BP Standing (P ost-Dialysis) 140/90 mmHg Sitting Heart Rate Pre-Dialysis 81 BPM Sitting Heart Rate Post-Dialysis 67 BPM Standing Heart Rate Pre-Dialysis 79 BPM Standing Heart Rate Post-Dialysis 66 BPM Temperature Pre-Dialysis 97.6 degF Temperature Post -Dialysis 97.3 degF September 29, 2023 In-Center Hemodialysis Treatment 7722-28-50Q93:18:00.000Z 7833-94-71V96:56:01.000Z BP Sitting (Pre-Dialysis) 135/65 mmHg BP Sitting (Post-Dialysis) 150/100 mmHg Concurrent Access: falseCentral Venous Catheter (CVC) Chest (Left) Arterial BP Standing (Pre-Dialysis) 164/110 mmHg Sitti ng Heart Rate Post-Dialysis 71 BPM Sitting Heart Rate Pre-Dialysis 57 BPM Temperatu re Post-Dialysis 97.9 degF Standing Heart Rate Pre-Dialysis 85 BPM Temperature Pre-Dialysis 97.8 degF September 26, 2023 In-Center Hemodialysis Treatment [id number]:10:35.000Z 4591-53-69K01:29:35.000Z BP Sitting (Pre-Dialysis) 160/113 mmHg BP Sitting (Post-Dialysis) 119/85 mmHg Concurrent Access: falseCentral Venous Catheter (CVC) Chest (Left) Arterial BP Standing (Pre-Dialysis) 167/119 mmHg BP Standing (P ost-Dialysis) 129/91 mmHg Sitting Heart Rate Pre-Dialysis 96 BPM Sitting Heart Rate Post-Dialysis 73 BPM Standing Heart Rate Pre-Dialysis 92 BPM Standing Heart Rate Post-Dialysis 72 BPM Temperature Pre-Dialysis 97.8 degF Temperature Post -Dialysis 97.8 degF September 24, 2023 In-Center Hemodialysis Treatment 9467-19-08S98:47:23.000Z 4644-69-64T38:22:23.000Z BP Sitting (Pre-Dialysis) 164/102 mmHg BP Sitting (Post-Dialysis) 151/101 mmHg Concurrent Access: falseCentral Venous Catheter (CVC) Chest (Left) Arterial BP Standing (Pre-Dialysis) 161/100 mmHg BP Standing (P ost-Dialysis) 150/89 mmHg Sitting Heart Rate Pre-Dialysis 78 BPM Sitting Heart Rate Post-Dialysis 79 BPM Standing Heart Rate Pre-Dialysis 78 BPM Standing Heart Rate Post-Dialysis 80 BPM Temperature Pre-Dialysis 97.2 degF Temperature Post -Dialysis 97.6 degF September 22, 2023 In-Center Hemodialysis Treatment 4693-20-23Y87:42:00.000Z 4994-74-50L22:36:36.000Z BP Sitting (Pre-Dialysis) 161/104 mmHg BP Sitting (Post-Dialysis) 122/86 mmHg Concurrent Access: falseCentral Venous Catheter (CVC) Chest (Left) Arterial BP Standing (Pre-Dialysis) 161/100 mmHg BP Standing (P ost-Dialysis) 132/90 mmHg Sitting Heart Rate Pre-Dialysis 79 BPM Sitting Heart Rate Post-Dialysis 79 BPM Standing Heart Rate Pre-Dialysis 80 BPM Standing Heart Rate Post-Dialysis 78 BPM Temperature Pre-Dialysis 97.8 degF Temperature Post -Dialysis 97.8 degF September 19, 2023 In-Center Hemodialysis Treatment 7095-61-77Q07:37:00.000Z 9829-33-34B75:28:37.000Z BP Sitting (Pre-Dialysis) 156/101 mmHg BP Sitting (Post-Dialysis) 121/82 mmHg Concurrent Access: falseCentral Venous Catheter (CVC) Chest (Left) Arterial BP Standing (Pre-Dialysis) 153/59 mmHg BP Standing (P ost-Dialysis) 121/85 mmHg Sitting Heart Rate Pre-Dialysis 78 BPM Sitting Heart Rate Post-Dialysis 75 BPM Standing Heart Rate Pre-Dialysis 77 BPM Standing Heart Rate Post-Dialysis 83 BPM Temperature Pre-Dialysis 98.9 degF Temperature Post -Dialysis 97.8 degF September 17, 2023 In-Center Hemodialysis Treatment [id number]:01:23.000Z 2270-80-78P84:49:23.000Z BP Sitting (Pre-Dialysis) 168/99 mmHg BP Sitting (Post-Dialysis) 138/94 mmHg Concurrent Access: falseCentral Venous Catheter (CVC) Chest (Left) Arterial BP Standing (Pre-Dialysis) 165/97 mmHg BP Standing (P ost-Dialysis) 130/82 mmHg Sitting Heart Rate Pre-Dialysis 86 BPM Sitting Heart Rate Post-Dialysis 77 BPM Standing Heart Rate Pre-Dialysis 86 BPM Standing Heart Rate Post-Dialysis 60 BPM Temperature Pre-Dialysis 97.8 degF Temperature Post -Dialysis 97.6 degF September 15, 2023 In-Center Hemodialysis Treatment 3157-64-07F61:11:00.000Z 7854-40-10S11:58:24.000Z BP Sitting (Pre-Dialysis) 153/92 mmHg BP Sitting (Post-Dialysis) 130/94 mmHg Concurrent Access: falseCentral Venous Catheter (CVC) Chest (Left) Arterial BP Standing (Pre-Dialysis) 143/92 mmHg BP Standing (P ost-Dialysis) 138/94 mmHg Sitting Heart Rate Pre-Dialysis 82 BPM Sitting Heart Rate Post-Dialysis 75 BPM Standing Heart Rate Pre-Dialysis 89 BPM Standing Heart Rate Post-Dialysis 72 BPM Temperature Pre-Dialysis 97.9 degF Temperature Post -Dialysis 97.5 degF September 12, 2023 In-Center Hemodialysis Treatment 1786-00-27Q64:34:28.000Z 1713-88-67N78:25:29.000Z BP Sitting (Pre-Dialysis) 155/83 mmHg BP Sitting (Post-Dialysis) 140/84 mmHg Concurrent Access: falseCentral Venous Catheter (CVC) Chest (Left) Arterial BP Standing (Pre-Dialysis) 148/84 mmHg BP Standing (P ost-Dialysis) 132/81 mmHg Sitting Heart Rate Pre-Dialysis 84 BPM Sitting Heart Rate Post-Dialysis 76 BPM Standing Heart Rate Pre-Dialysis 83 BPM Standing Heart Rate Post-Dialysis 78 BPM Temperature Pre-Dialysis 97.8 degF Temperature Post -Dialysis 97.8 degF September 10, 2023 In-Center Hemodialysis Treatment 9303-28-61L16:26:29.000Z 3790-25-92M40:59:30.000Z BP Sitting (Pre-Dialysis) 148/68 mmHg BP Sitting (Post-Dialysis) 159/96 mmHg Concurrent Access: falseCentral Venous Catheter (CVC) Chest (Left) Arterial BP Standing (Pre-Dialysis) 170/98 mmHg BP Standing (P ost-Dialysis) 184/103 mmHg Sitting Heart Rate Pre-Dialysis 83 BPM Sitting Heart Rate Post-Dialysis 79 BPM Standing Heart Rate Pre-Dialysis 88 BPM Standing Heart Rate Post-Dialysis 83 BPM Temperature Pre-Dialysis 97.8 degF Temperature Post -Dialysis 97.8 degF September 08, 2023 In-Center Hemodialysis Treatment 0192-69-51E49:04:00.000Z 7360-12-08M28:52:30.000Z BP Sitting (Pre-Dialysis) 153/98 mmHg BP Sitting (Post-Dialysis) 140/91 mmHg Concurrent Access: falseCentral Venous Catheter (CVC) Chest (Left) Arterial BP Standing (Pre-Dialysis) 160/96 mmHg BP Standing (P ost-Dialysis) 141/88 mmHg Sitting Heart Rate Pre-Dialysis 80 BPM Sitting Heart Rate Post-Dialysis 82 BPM Standing Heart Rate Pre-Dialysis 84 BPM Standing Heart Rate Post-Dialysis 82 BPM Temperature Pre-Dialysis 97.6 degF Temperature Post -Dialysis 97.6 degF September 05, 2023 In-Center Hemodialysis Treatment 6474-84-28I94:54:00.000Z 7898-18-20X60:39:20.000Z BP Sitting (Pre-Dialysis) 167/111 mmHg BP Sitting (Post-Dialysis) 149/104 mmHg Concurrent Access: falseCentral Venous Catheter (CVC) Chest (Left) Arterial BP Standing (Pre-Dialysis) 177/108 mmHg BP Standing (P ost-Dialysis) 148/101 mmHg Sitting Heart Rate Pre-Dialysis 84 BPM Sitting Heart Rate Post-Dialysis 77 BPM Standing Heart Rate Pre-Dialysis 83 BPM Standing Heart Rate Post-Dialysis 81 BPM Temperature Pre-Dialysis 97.3 degF Temperature Post -Dialysis 97.5 degF September 03, 2023 In-Center Hemodialysis Treatment 5843-57-99F15:34:31.000Z 5199-36-67V07:24:30.000Z BP Sitting (Pre-Dialysis) 170/86 mmHg BP Sitting (Post-Dialysis) 145/85 mmHg Concurrent Access: falseCentral Venous Catheter (CVC) Chest (Left) Arterial BP Standing (Pre-Dialysis) 155/91 mmHg Sitti ng Heart Rate Post-Dialysis 74 BPM Sitting Heart Rate Pre-Dialysis 84 BPM Temperatu re Post-Dialysis 97.5 degF Standing Heart Rate Pre-Dialysis 86 BPM Temperature Pre-Dialysis 97.8 degF September 01, 2023 In-Center Hemodialysis Treatment 5428-48-20K73:42:20.000Z 8195-31-30Y30:28:19.000Z BP Sitting (Pre-Dialysis) 166/98 mmHg BP Sitting (Post-Dialysis) 143/90 mmHg Concurrent Access: falseCentral Venous Catheter (CVC) Chest (Left) Arterial BP Standing (Pre-Dialysis) 157/90 mmHg BP Standing (P ost-Dialysis) 130/87 mmHg Sitting Heart Rate Pre-Dialysis 76 BPM Sitting Heart Rate Post-Dialysis 77 BPM Standing Heart Rate Pre-Dialysis 84 BPM Standing Heart Rate Post-Dialysis 77 BPM Temperature Pre-Dialysis 97.9 degF Temperature Post -Dialysis 97.8 degF August 29, 2023 In-Center Hemodialysis Treatment 7511-84-01G29:00:00.000Z 3634-84-28E62:58:25.000Z BP Sitting (Pre-Dialysis) 153/101 mmHg BP Sitting (Post-Dialysis) 138/90 mmHg Concurrent Access: falseCentral Venous Catheter (CVC) Chest (Left) Arterial BP Standing (Pre-Dialysis) 153/91 mmHg BP Standing (P ost-Dialysis) 125/87 mmHg Sitting Heart Rate Pre-Dialysis 84 BPM Sitting Heart Rate Post-Dialysis 82 BPM Standing Heart Rate Pre-Dialysis 86 BPM Standing Heart Rate Post-Dialysis 71 BPM Temperature Pre-Dialysis 97.6 degF Temperature Post -Dialysis 97.5 degF August 27, 2023 In-Center Hemodialysis Treatment [id number]:35:13.000Z 8983-30-31F28:20:13.000Z BP Sitting (Pre-Dialysis) 173/109 mmHg BP Sitting (Post-Dialysis) 160/100 mmHg Concurrent Access: falseCentral Venous Catheter (CVC) Chest (Left) Arterial BP Standing (Pre-Dialysis) 166/94 mmHg BP Standing (P ost-Dialysis) 156/100 mmHg Sitting Heart Rate Pre-Dialysis 84 BPM Sitting Heart Rate Post-Dialysis 79 BPM Standing Heart Rate Pre-Dialysis 87 BPM Standing Heart Rate Post-Dialysis 80 BPM Temperature Pre-Dialysis 97.7 degF Temperature Post -Dialysis 97.4 degF August 25, 2023 In-Center Hemodialysis Treatment [id number]:18:00.000Z 7937-06-36E88:01:13.000Z BP Sitting (Pre-Dialysis) 116/100 mmHg BP Sitting (Post-Dialysis) 141/87 mmHg Concurrent Access: falseCentral Venous Catheter (CVC) Chest (Left) Arterial BP Standing (Pre-Dialysis) 158/98 mmHg BP Standing (P ost-Dialysis) 142/86 mmHg Sitting Heart Rate Pre-Dialysis 84 BPM Sitting Heart Rate Post-Dialysis 81 BPM Standing Heart Rate Pre-Dialysis 85 BPM Standing Heart Rate Post-Dialysis 81 BPM Temperature Pre-Dialysis 97.6 degF Temperature Post -Dialysis 97.8 degF August 22, 2023 In-Center Hemodialysis Treatment 3425-11-90F54:15:00.000Z 2033-22-96I92:00:40.000Z BP Sitting (Pre-Dialysis) 159/99 mmHg BP Sitting (Post-Dialysis) 163/97 mmHg Concurrent Access: falseCentral Venous Catheter (CVC) Chest (Left) Arterial BP Standing (Pre-Dialysis) 169/108 mmHg BP Standing (P ost-Dialysis) 146/95 mmHg Sitting Heart Rate Pre-Dialysis 80 BPM Sitting Heart Rate Post-Dialysis 84 BPM Standing Heart Rate Pre-Dialysis 82 BPM Standing Heart Rate Post-Dialysis 78 BPM Temperature Pre-Dialysis 97.8 degF Temperature Post -Dialysis 97.6 degF August 20, 2023 In-Center Hemodialysis Treatment 4098-17-50L08:17:41.000Z 9928-02-86A81:16:40.000Z BP Sitting (Pre-Dialysis) 171/104 mmHg BP Sitting (Post-Dialysis) 176/112 mmHg Concurrent Access: falseCentral Venous Catheter (CVC) Chest (Left) Arterial BP Standing (Pre-Dialysis) 160/102 mmHg BP Standing (P ost-Dialysis) 173/111 mmHg Sitting Heart Rate Pre-Dialysis 87 BPM Sitting Heart Rate Post-Dialysis 77 BPM Standing Heart Rate Pre-Dialysis 87 BPM Standing Heart Rate Post-Dialysis 79 BPM Temperature Pre-Dialysis 97.8 degF Temperature Post -Dialysis 97.5 degF August 18, 2023 In-Center Hemodialysis Treatment [id number]:24:41.000Z 5183-10-85I59:10:40.000Z BP Sitting (Pre-Dialysis) 169/89 mmHg BP Sitting (Post-Dialysis) 140/85 mmHg Concurrent Access: falseCentral Venous Catheter (CVC) Chest (Left) Arterial BP Standing (Pre-Dialysis) 158/98 mmHg BP Standing (P ost-Dialysis) 147/90 mmHg Sitting Heart Rate Pre-Dialysis 85 BPM Sitting Heart Rate Post-Dialysis 69 BPM Standing Heart Rate Pre-Dialysis 85 BPM Standing Heart Rate Post-Dialysis 74 BPM Temperature Pre-Dialysis 97.7 degF Temperature Post -Dialysis 97.9 degF August 15, 2023 In-Center Hemodialysis Treatment [id number]:31:24.000Z 7382-91-66T52:19:24.000Z BP Sitting (Pre-Dialysis) 141/86 mmHg BP Sitting (Post-Dialysis) 141/88 mmHg Concurrent Access: falseCentral Venous Catheter (CVC) Chest (Left) Arterial BP Standing (Pre-Dialysis) 140/89 mmHg BP Standing (P ost-Dialysis) 134/87 mmHg Sitting Heart Rate Pre-Dialysis 84 BPM Sitting Heart Rate Post-Dialysis 84 BPM Standing Heart Rate Pre-Dialysis 92 BPM Standing Heart Rate Post-Dialysis 80 BPM Temperature Pre-Dialysis 97.5 degF Temperature Post -Dialysis 97.6 degF August 13, 2023 In-Center Hemodialysis Treatment 7016-84-83K13:22:00.000Z 6385-08-67Q49:09:41.000Z BP Sitting (Pre-Dialysis) 173/121 mmHg BP Sitting (Post-Dialysis) 155/107 mmHg Concurrent Access: falseCentral Venous Catheter (CVC) Chest (Left) Arterial BP Standing (Pre-Dialysis) 165/117 mmHg BP Standing (P ost-Dialysis) 157/104 mmHg Sitting Heart Rate Pre-Dialysis 92 BPM Sitting Heart Rate Post-Dialysis 88 BPM Standing Heart Rate Pre-Dialysis 93 BPM Standing Heart Rate Post-Dialysis 86 BPM Temperature Pre-Dialysis 97.5 degF August 11, 2023 In-Center Hemodialysis Treatment 4249-78-13B51:19:00.000Z 8028-29-50F47:30:42.000Z BP Sitting (Pre-Dialysis) 181/115 mmHg BP Sitting (Post-Dialysis) 169/112 mmHg Concurrent Access: falseCentral Venous Catheter (CVC) Chest (Left) Arterial BP Standing (Pre-Dialysis) 176/105 mmHg BP Standing (P ost-Dialysis) 171/114 mmHg Sitting Heart Rate Pre-Dialysis 85 BPM Sitting Heart Rate Post-Dialysis 82 BPM Standing Heart Rate Pre-Dialysis 95 BPM Standing Heart Rate Post-Dialysis 81 BPM Temperature Pre-Dialysis 97.8 degF Temperature Post -Dialysis 97.4 degF August 08, 2023 In-Center Hemodialysis Treatment 4332-12-34O05:12:43.000Z 4573-15-10G39:14:42.000Z BP Sitting (Pre-Dialysis) 150/98 mmHg BP Sitting (Post-Dialysis) 173/110 mmHg Concurrent Access: falseCentral Venous Catheter (CVC) Chest (Left) Arterial BP Standing (Pre-Dialysis) 159/98 mmHg BP Standing (P ost-Dialysis) 175/108 mmHg Sitting Heart Rate Pre-Dialysis 86 BPM Sitting Heart Rate Post-Dialysis 82 BPM Standing Heart Rate Pre-Dialysis 87 BPM Standing Heart Rate Post-Dialysis 85 BPM Temperature Pre-Dialysis 97.8 degF Temperature Post -Dialysis 97.8 degF August 06, 2023 In-Center Hemodialysis Treatment 4783-06-59J31:23:00.000Z 8665-80-10C76:52:42.000Z BP Sitting (Pre-Dialysis) 132/93 mmHg BP Sitting (Post-Dialysis) 153/105 mmHg Concurrent Access: falseCentral Venous Catheter (CVC) Chest (Left) Arterial BP Standing (Pre-Dialysis) 143/88 mmHg Sitti ng Heart Rate Post-Dialysis 87 BPM Sitting Heart Rate Pre-Dialysis 96 BPM Temperatu re Post-Dialysis 97.7 degF Standing Heart Rate Pre-Dialysis 97 BPM Temperature Pre-Dialysis 97.6 degF August 04, 2023 In-Center Hemodialysis Treatment 5463-51-41Z25:16:43.000Z 1635-53-40Y16:06:42.000Z BP Sitting (Pre-Dialysis) 159/105 mmHg BP Sitting (Post-Dialysis) 159/98 mmHg Concurrent Access: falseCentral Venous Catheter (CVC) Chest (Left) Arterial BP Standing (Pre-Dialysis) 165/95 mmHg BP Standing (P ost-Dialysis) 157/55 mmHg Sitting Heart Rate Pre-Dialysis 95 BPM Sitting Heart Rate Post-Dialysis 80 BPM Standing Heart Rate Pre-Dialysis 94 BPM Standing Heart Rate Post-Dialysis 72 BPM Temperature Pre-Dialysis 97.4 degF Temperature Post -Dialysis 97.8 degF August 01, 2023 In-Center Hemodialysis Treatment 0706-46-52U98:17:00.000Z 0550-47-27T02:56:31.000Z BP Sitting (Pre-Dialysis) 135/89 mmHg BP Sitting (Post-Dialysis) 148/109 mmHg Concurrent Access: falseCentral Venous Catheter (CVC) Chest (Left) Arterial BP Standing (Pre-Dialysis) 116/73 mmHg BP Standing (P ost-Dialysis) 156/95 mmHg Sitting Heart Rate Pre-Dialysis 92 BPM Sitting Heart Rate Post-Dialysis 84 BPM Standing Heart Rate Pre-Dialysis 94 BPM Standing Heart Rate Post-Dialysis 84 BPM Temperature Pre-Dialysis 97.5 degF Temperature Post -Dialysis 97.8 degF July 30, 2023 In-Center Hemodialysis Treatment 0853-09-01B26:28:00.000Z 9167-07-37N23:15:13.000Z BP Sitting (Pre-Dialysis) 177/110 mmHg BP Sitting (Post-Dialysis) 176/100 mmHg Concurrent Access: falseCentral Venous Catheter (CVC) Chest (Left) Arterial BP Standing (Pre-Dialysis) 171/104 mmHg BP Standing (P ost-Dialysis) 161/91 mmHg Sitting Heart Rate Pre-Dialysis 84 BPM Sitting Heart Rate Post-Dialysis 83 BPM Standing Heart Rate Pre-Dialysis 88 BPM Standing Heart Rate Post-Dialysis 80 BPM Temperature Pre-Dialysis 97.3 degF Temperature Post -Dialysis 97.8 degF July 29, 2023 In-Center Hemodialysis Treatment 1901-31-12S37:56:00.000Z 2101-16-08L61:43:14.000Z BP Sitting (Pre-Dialysis) 152/92 mmHg BP Sitting (Post-Dialysis) 149/94 mmHg Concurrent Access: falseCentral Venous Catheter (CVC) Chest (Left) Arterial BP Standing (Pre-Dialysis) 139/79 mmHg Sitti ng Heart Rate Post-Dialysis 83 BPM Sitting Heart Rate Pre-Dialysis 88 BPM Temperatu re Post-Dialysis 97.6 degF Standing Heart Rate Pre-Dialysis 88 BPM Temperature Pre-Dialysis 97.3 degF July 28, 2023 In-Center Hemodialysis Treatment 400 mL/min 800 mL/min Concurrent Access: false July 22, 2023 In-Center Hemodialysis Treatment 20 24 -0 2- T1 2: 57 :4 0. 00 0Z 20 24 -0 2- T1 3: 31 :4 0. 00 0Z BP Sitting (Pre-Dial ysis) 161/90 mmHg BP Sitting (Post-Di alysis) 153/8 5 mmHg Concurrent Access: falseCentral Venous Catheter (CVC) Chest (Left) Arterial BP Standing (Pre-Dialysis) 136/81 mmHg BP Standing (P ost-Dialysis) 174/68 mmHg Sitting Heart Rate Pre-Dialysis 88 BPM Sitting Heart Rate Post-Dialysis 86 BPM Standing Heart Rate Pre-Dialysis 91 BPM Standing Heart Rate Post-Dialysis 72 BPM Temperature Pre-Dialysis 97.3 degF Temperature Post -Dialysis 97.2 degF July 18, 2023 In-Center Hemodialysis Treatment 3634-66-31L40:08:31.000Z 9441-17-83M91:50:31.000Z BP Sitting (Pre-Dialysis) 169/98 mmHg BP Sitting (Post-Dialysis) 153/98 mmHg Concurrent Access: falseCentral Venous Catheter (CVC) Chest (Left) Arterial BP Standing (Pre-Dialysis) 159/102 mmHg BP Standing (P ost-Dialysis) 163/94 mmHg Sitting Heart Rate Pre-Dialysis 84 BPM Sitting Heart Rate Post-Dialysis 95 BPM Standing Heart Rate Pre-Dialysis 90 BPM Standing Heart Rate Post-Dialysis 92 BPM Temperature Pre-Dialysis 97 degF Temperature Post -Dialysis 97.2 degF July 17, 2023 Additional Day Of Dialysis Treatment 6438-99-06O75:59:00.000Z 4966-41-61E25:41:19.000Z BP Sitting (Pre-Dialysis) 176/110 mmHg BP Sitting (Post-Dialysis) 148/90 mmHg Concurrent Access: falseCentral Venous Catheter (CVC) Chest (Left) Arterial BP Standing (Pre-Dialysis) 167/113 mmHg BP Standing (P ost-Dialysis) 141/90 mmHg Sitting Heart Rate Pre-Dialysis 87 BPM Sitting Heart Rate Post-Dialysis 94 BPM Standing Heart Rate Pre-Dialysis 91 BPM Standing Heart Rate Post-Dialysis 95 BPM Temperature Pre-Dialysis 97.8 degF Temperature Post -Dialysis 98 degF July 16, 2023 In-Center Hemodialysis Treatment 3771-74-04S11:26:31.000Z 2411-22-34C25:58:32.000Z BP Sitting (Pre-Dialysis) 147/100 mmHg BP Sitting (Post-Dialysis) 133/64 mmHg Concurrent Access: falseCentral Venous Catheter (CVC) Chest (Left) Arterial BP Standing (Pre-Dialysis) 133/77 mmHg BP Standing (P ost-Dialysis) 148/58 mmHg Sitting Heart Rate Pre-Dialysis 89 BPM Sitting Heart Rate Post-Dialysis 88 BPM Standing Heart Rate Pre-Dialysis 97 BPM Standing Heart Rate Post-Dialysis 92 BPM Temperature Pre-Dialysis 97.8 degF Temperature Post -Dialysis 97.2 degF July 14, 2023 In-Center Hemodialysis Treatment 8081-50-13T97:19:15.000Z 1439-23-55R78:14:15.000Z BP Sitting (Pre-Dialysis) 156/84 mmHg BP Sitting (Post-Dialysis) 150/90 mmHg Concurrent Access: falseCentral Venous Catheter (CVC) Chest (Left) Arterial BP Standing (Pre-Dialysis) 148/88 mmHg BP Standing (P ost-Dialysis) 164/94 mmHg Sitting Heart Rate Pre-Dialysis 91 BPM Sitting Heart Rate Post-Dialysis 84 BPM Standing Heart Rate Pre-Dialysis 89 BPM Standing Heart Rate Post-Dialysis 88 BPM Temperature Pre-Dialysis 97.8 degF Temperature Post -Dialysis 97.6 degF July 11, 2023 In-Center Hemodialysis Treatment 8103-59-64T00:20:00.000Z 3352-14-23H76:07:27.000Z BP Sitting (Pre-Dialysis) 133/84 mmHg BP Sitting (Post-Dialysis) 150/82 mmHg Concurrent Access: falseCentral Venous Catheter (CVC) Chest (Left) Arterial BP Standing (Pre-Dialysis) 126/72 mmHg BP Standing (P ost-Dialysis) 143/83 mmHg Sitting Heart Rate Pre-Dialysis 85 BPM Sitting Heart Rate Post-Dialysis 86 BPM Standing Heart Rate Pre-Dialysis 92 BPM Standing Heart Rate Post-Dialysis 87 BPM Temperature Pre-Dialysis 97.5 degF Temperature Post -Dialysis 97.8 degF July 09, 2023 In-Center Hemodialysis Treatment 5549-36-71Q04:27:25.000Z 9505-34-41E41:16:25.000Z BP Sitting (Pre-Dialysis) 128/76 mmHg BP Sitting (Post-Dialysis) 133/80 mmHg Concurrent Access: falseCentral Venous Catheter (CVC) Chest (Left) Arterial BP Standing (Pre-Dialysis) 122/71 mmHg BP Standing (P ost-Dialysis) 128/78 mmHg Sitting Heart Rate Pre-Dialysis 78 BPM Sitting Heart Rate Post-Dialysis 81 BPM Standing Heart Rate Pre-Dialysis 81 BPM Standing Heart Rate Post-Dialysis 90 BPM Temperature Pre-Dialysis 97.2 degF Temperature Post -Dialysis 97.7 degF July 07, 2023 In-Center Hemodialysis Treatment 4702-88-26V49:11:27.000Z 6373-72-10X70:43:27.000Z BP Sitting (Pre-Dialysis) 183/100 mmHg BP Sitting (Post-Dialysis) 164/104 mmHg Concurrent Access: falseCentral Venous Catheter (CVC) Chest (Left) Arterial BP Standing (Pre-Dialysis) 140/63 mmHg BP Standing (P ost-Dialysis) 166/100 mmHg Sitting Heart Rate Pre-Dialysis 83 BPM Sitting Heart Rate Post-Dialysis 82 BPM Standing Heart Rate Pre-Dialysis 62 BPM Standing Heart Rate Post-Dialysis 85 BPM Temperature Pre-Dialysis 97.4 degF Temperature Post -Dialysis 97.4 degF July 04, 2023 In-Center Hemodialysis Treatment 7189-48-96D35:12:00.000Z 0277-54-74R43:49:34.000Z BP Sitting (Pre-Dialysis) 142/90 mmHg BP Sitting (Post-Dialysis) 147/101 mmHg Concurrent Access: falseCentral Venous Catheter (CVC) Chest (Left) Arterial BP Standing (Pre-Dialysis) 161/87 mmHg BP Standing (P ost-Dialysis) 145/97 mmHg Sitting Heart Rate Pre-Dialysis 97 BPM Sitting Heart Rate Post-Dialysis 91 BPM Temperature Pre-Dialysis 97.9 degF Standin g Heart Rate Post-Dialysis 88 BPM Temperature Post-Dialysis 97 .6 degF July 02, 2023 In-Center Hemodialysis Treatment [id number]:22:00.000Z [id number]:57:09.000Z BP Sitting (Pre-Dialysis) 151/103 mmHg BP Sitting (Post-Dialysis) 173/97 mmHg Concurrent Access: falseCentral Venous Catheter (CVC) Chest (Left) Arterial BP Standing (Pre-Dialysis) 143/95 mmHg BP Standing (P ost-Dialysis) 163/93 mmHg Sitting Heart Rate Pre-Dialysis 95 BPM Sitting Heart Rate Post-Dialysis 79 BPM Standing Heart Rate Pre-Dialysis 98 BPM Standing Heart Rate Post-Dialysis 97 BPM Temperature Pre-Dialysis 97.9 degF Temperature Post -Dialysis 97.9 degF June 30, 2023 In-Center Hemodialysis Treatment [id number]:27:00.000Z [id number]:01:09.000Z BP Sitting (Pre-Dialysis) 165/100 mmHg BP Sitting (Post-Dialysis) 157/90 mmHg Concurrent Access: falseCentral Venous Catheter (CVC) Chest (Left) Arterial BP Standing (Pre-Dialysis) 163/108 mmHg BP Standing (P ost-Dialysis) 141/96 mmHg Sitting Heart Rate Pre-Dialysis 83 BPM Sitting Heart Rate Post-Dialysis 74 BPM Standing Heart Rate Pre-Dialysis 88 BPM Standing Heart Rate Post-Dialysis 75 BPM Temperature Pre-Dialysis 97.6 degF Temperature Post -Dialysis 97.6 degF June 27, 2023 In-Center Hemodialysis Treatment [id number]:43.000Z [id number]:56:42.000Z BP Sitting (Pre-Dialysis) 177/111 mmHg BP Sitting (Post-Dialysis) 178/110 mmHg Concurrent Access: falseCentral Venous Catheter (CVC) Chest (Left) Arterial BP Standing (Pre-Dialysis) 178/109 mmHg BP Standing (P ost-Dialysis) 171/94 mmHg Sitting Heart Rate Pre-Dialysis 94 BPM Sitting Heart Rate Post-Dialysis 94 BPM Standing Heart Rate Pre-Dialysis 80 BPM Standing Heart Rate Post-Dialysis 93 BPM Temperature Pre-Dialysis 97 degF Temperature Post -Dialysis 97.6 degF June 25, 2023 In-Center Hemodialysis Treatment [id number]:18:42.000Z [id number]:49:43.000Z BP Sitting (Pre-Dialysis) 160/90 mmHg BP Sitting (Post-Dialysis) 166/98 mmHg Concurrent Access: falseCentral Venous Catheter (CVC) Chest (Left) Arterial BP Standing (Pre-Dialysis) 155/88 mmHg BP Standing (P ost-Dialysis) 167/95 mmHg Sitting Heart Rate Pre-Dialysis 84 BPM Sitting Heart Rate Post-Dialysis 78 BPM Standing Heart Rate Pre-Dialysis 87 BPM Standing Heart Rate Post-Dialysis 83 BPM Temperature Pre-Dialysis 97.6 degF Temperature Post -Dialysis 97.5 degF June 20, 2023 In-Center Hemodialysis Treatment [id number]:21:00.000Z [id number]:50:53.000Z BP Sitting (Pre-Dialysis) 146/91 mmHg BP Sitting (Post-Dialysis) 155/95 mmHg Concurrent Access: falseCentral Venous Catheter (CVC) Chest (Left) Arterial BP Standing (Pre-Dialysis) 150/89 mmHg BP Standing (P ost-Dialysis) 162/94 mmHg Sitting Heart Rate Pre-Dialysis 94 BPM Sitting Heart Rate Post-Dialysis 84 BPM Standing Heart Rate Pre-Dialysis 95 BPM Standing Heart Rate Post-Dialysis 88 BPM Temperature Pre-Dialysis 97.9 degF Temperature Post -Dialysis 97.5 degF June 18, 2023 In-Center Hemodialysis Treatment [id number]:16:54.000Z [id number]:48:53.000Z BP Sitting (Pre-Dialysis) 151/90 mmHg BP Sitting (Post-Dialysis) 142/79 mmHg Concurrent Access: falseCentral Venous Catheter (CVC) Chest (Left) Arterial BP Standing (Pre-Dialysis) 134/86 mmHg BP Standing (P ost-Dialysis) 138/81 mmHg Sitting Heart Rate Pre-Dialysis 93 BPM Sitting Heart Rate Post-Dialysis 76 BPM Standing Heart Rate Pre-Dialysis 96 BPM Standing Heart Rate Post-Dialysis 78 BPM Temperature Pre-Dialysis 97.2 degF Temperature Post -Dialysis 97.3 degF June 16, 2023 In-Center Hemodialysis Treatment [id number]:31:00.000Z [id number]:02:18.000Z BP Sitting (Pre-Dialysis) 156/105 mmHg BP Sitting (Post-Dialysis) 170/93 mmHg Concurrent Access: falseCentral Venous Catheter (CVC) Chest (Left) Arterial BP Standing (Pre-Dialysis) 144/74 mmHg BP Standing (P ost-Dialysis) 170/93 mmHg Sitting Heart Rate Pre-Dialysis 96 BPM Sitting Heart Rate Post-Dialysis 76 BPM Standing Heart Rate Pre-Dialysis 64 BPM Standing Heart Rate Post-Dialysis 89 BPM Temperature Pre-Dialysis 97.8 degF Temperature Post -Dialysis 97.2 degF June 13, 2023 In-Center Hemodialysis Treatment [id number]:44:00.000Z [id number]:17:51.000Z BP Sitting (Pre-Dialysis) 163/99 mmHg BP Sitting (Post-Dialysis) 165/98 mmHg Concurrent Access: falseCentral Venous Catheter (CVC) Chest (Left) Arterial BP Standing (Pre-Dialysis) 159/93 mmHg BP Standing (P ost-Dialysis) 160/83 mmHg Sitting Heart Rate Pre-Dialysis 81 BPM Sitting Heart Rate Post-Dialysis 85 BPM Standing Heart Rate Pre-Dialysis 84 BPM Standing Heart Rate Post-Dialysis 91 BPM Temperature Pre-Dialysis 97.9 degF Temperature Post -Dialysis 97.9 degF June 11, 2023 In-Center Hemodialysis Treatment [id number]:17:51.000Z [id number]:33:51.000Z BP Sitting (Pre-Dialysis) 172/98 mmHg BP Sitting (Post-Dialysis) 165/93 mmHg Concurrent Access: falseCentral Venous Catheter (CVC) Chest (Left) Arterial BP Standing (Pre-Dialysis) 157/96 mmHg BP Standing (P ost-Dialysis) 161/97 mmHg Sitting Heart Rate Pre-Dialysis 92 BPM Sitting Heart Rate Post-Dialysis 85 BPM Standing Heart Rate Pre-Dialysis 85 BPM Standing Heart Rate Post-Dialysis 107 BPM Temperature Pre-Dialysis 97.8 degF Temperature Post -Dialysis 97.2 degF June 09, 2023 In-Center Hemodialysis Treatment [id number]:24:00.000Z [id number]:59:51.000Z BP Sitting (Pre-Dialysis) 171/103 mmHg BP Sitting (Post-Dialysis) 166/99 mmHg Concurrent Access: falseCentral Venous Catheter (CVC) Chest (Left) Arterial BP Standing (Pre-Dialysis) 163/91 mmHg BP Standing (P ost-Dialysis) 176/103 mmHg Sitting Heart Rate Pre-Dialysis 91 BPM Sitting Heart Rate Post-Dialysis 82 BPM Standing Heart Rate Pre-Dialysis 95 BPM Standing Heart Rate Post-Dialysis 85 BPM Temperature Pre-Dialysis 97.7 degF Temperature Post -Dialysis 97.6 degF June 06, 2023 In-Center Hemodialysis Treatment [id number]:31:10.000Z [id number]:03:09.000Z BP Sitting (Pre-Dialysis) 159/98 mmHg BP Sitting (Post-Dialysis) 153/94 mmHg Concurrent Access: falseCentral Venous Catheter (CVC) Chest (Left) Arterial BP Standing (Pre-Dialysis) 157/95 mmHg BP Standing (P ost-Dialysis) 153/89 mmHg Sitting Heart Rate Pre-Dialysis 84 BPM Sitting Heart Rate Post-Dialysis 78 BPM Standing Heart Rate Pre-Dialysis 89 BPM Standing Heart Rate Post-Dialysis 80 BPM Temperature Pre-Dialysis 97.8 degF Temperature Post -Dialysis 97.2 degF June 04, 2023 In-Center Hemodialysis Treatment [id number]:27:10.000Z [id number]:00:09.000Z BP Sitting (Pre-Dialysis) 161/91 mmHg BP Sitting (Post-Dialysis) 163/94 mmHg Concurrent Access: falseCentral Venous Catheter (CVC) Chest (Left) Arterial BP Standing (Pre-Dialysis) 141/86 mmHg BP Standing (P ost-Dialysis) 159/90 mmHg Sitting Heart Rate Pre-Dialysis 92 BPM Sitting Heart Rate Post-Dialysis 87 BPM Standing Heart Rate Pre-Dialysis 96 BPM Standing Heart Rate Post-Dialysis 90 BPM Temperature Pre-Dialysis 97.8 degF Temperature Post -Dialysis 97.9 degF June 01, 2023 In-Center Hemodialysis Treatment [id number]:40:10.000Z [id number]:13:09.000Z BP Sitting (Pre-Dialysis) 160/100 mmHg BP Sitting (Post-Dialysis) 182/104 mmHg Concurrent Access: falseCentral Venous Catheter (CVC) Chest (Left) Arterial BP Standing (Pre-Dialysis) 165/99 mmHg BP Standing (P ost-Dialysis) 184/109 mmHg Sitting Heart Rate Pre-Dialysis 78 BPM Sitting Heart Rate Post-Dialysis 84 BPM Standing Heart Rate Pre-Dialysis 92 BPM Standing Heart Rate Post-Dialysis 97 BPM Temperature Pre-Dialysis 97.8 degF Temperature Post -Dialysis 97.8 degF May 30, 2023 In-Center Hemodialysis Treatment [id number]:25:09.000Z [id number]:57:09.000Z BP Sitting (Pre-Dialysis) 192/115 mmHg BP Sitting (Post-Dialysis) 171/107 mmHg Concurrent Access: falseCentral Venous Catheter (CVC) Chest (Left) Arterial BP Standing (Pre-Dialysis) 190/111 mmHg BP Standing (P ost-Dialysis) 186/106 mmHg Sitting Heart Rate Pre-Dialysis 88 BPM Sitting Heart Rate Post-Dialysis 79 BPM Standing Heart Rate Pre-Dialysis 88 BPM Standing Heart Rate Post-Dialysis 90 BPM Temperature Pre-Dialysis 97.5 degF Temperature Post -Dialysis 97.8 degF May 28, 2023 In-Center Hemodialysis Treatment [id number]:27:10.000Z [id number]:00:09.000Z BP Sitting (Pre-Dialysis) 161/96 mmHg BP Sitting (Post-Dialysis) 146/84 mmHg Concurrent Access: falseCentral Venous Catheter (CVC) Chest (Left) Arterial BP Standing (Pre-Dialysis) 153/82 mmHg BP Standing (P ost-Dialysis) 168/93 mmHg Sitting Heart Rate Pre-Dialysis 88 BPM Sitting Heart Rate Post-Dialysis 80 BPM Standing Heart Rate Pre-Dialysis 88 BPM Standing Heart Rate Post-Dialysis 90 BPM Temperature Pre-Dialysis 97.8 degF Temperature Post -Dialysis 97.8 degF DIALYSIS ORDER Dialysis Procedure Orders Type of Dialysis Procedure Order Order Date/Time Observations In-Center Hemodialysis Treatment 2024 Target Weight 104 kg Dialysate Flow Rate 800 mL/min Blood Flow Rate 450 mL/min Treatment Time 225 min(total) Max UF Rate 13 mL/kg/hr Base Sodium Dialysate Base Sodium 137 mE q/L dialysate_temp 36.5 C BiCarb Dialysate BiCarbonate 38 mEq/L Access Concurrent No Arterial Access AV Fistula (Upper Ar m (Right)) Venous Access AV Fistula (Upper Ar m (Right)) Arterial Needle Display ABRAM HUFFMAN, 15 G x 1 , SHARP , TWIN Venous Needle ABRAM HUFFMAN, 15G x 1 , SHARP , TWIN Dialyzer Nipro Elisio 15H 126 4 [email or web address] Dialysate Bath Potassium Potassium 3 mEq /L Dialysate Bath Calcium Calcium 2.5 mEq/L Results Adequacy Description Draw Date Result/Unit Status Ref Range Result Comments AMPUTATE FACTOR 2024-08-05 05:44:16 0 F KT/V PRESCRIBED 2024-08-05 05:44:16 1.67 F Residual kt/v 2024-08-05 05:44:16 F stdKT/V Total 2024-08-05 05:44:16 N/A F URR% 2024-08-05 05:44:16 64 % F CURRENT KRU 2024-08-05 05:44:16 F LENGTH OF DIALYSIS 2024-08-05 05:44:16 222 min F BSA TERA 2024-08-05 05:44:16 2.19 sq m F WEIGHT (KG) 2024-08-05 05:44:16 104 kg F spKt/V 2024-08-05 05:44:16 1.16 F VT (KT/V TX VOL) 2024-08-05 05:44:16 60.1 L F HEIGHT IN INCHES 2024-08-05 05:44:16 69 Inches F WEIGHT - PRE DAY 1 2024-08-05 05:44:16 107.5 kg F PRESCRIBED DAYS/WEEK 2024-08-05 05:44:16 3 Day/Wk F stdKt/V (DIAL) 2024-08-05 05:44:16 N/A F Dialyzer CHARLY 2024-08-05 05:44:16 1264 Calc F BLOOD FLOW-QWB 2024-08-05 05:44:16 450 F nPCR 2024-08-05 05:44:16 0.75 G/KG/D F TBW ([facility]) 2024-08-05 05:44:16 50.86 Liters F WEIGHT - POST DAY 1 2024-08-05 05:44:16 105 kg F PATIENT AGE 2024-08-05 05:44:16 59 Years F TOTAL HOURS/WEEK DIALYSIS 2024-08-05 05:44:16 11 hrs F Std Renal KT/V 2024-08-05 05:44:16 N/A F DIALYZER FLOW-QD 2024-08-05 05:44:16 800 mL/min F Total Kt/V 2024-08-05 05:44:16 1.16 F VM (KT/V MEAN VOL) 2024-08-05 05:44:16 53.7 F eKt/V 2024-08-05 05:44:16 1.01 F Urea nitrogen [Mass/volume] in Serum or Plasma 2024-08-05 05:42:31 50 mg/dL F 9.0-23.0 Creatinine [Mass/volume] in Serum or Plasma 2024-08-05 05:36:16 6.14 mg/dL F 0.7-1.3 Urea nitrogen [Mass/volume] in Serum or Plasma --post dialysis 2024-08-05 04:47:19 18 mg/dL F 9.0-23.0 Creatinine [Mass/volume] in Serum or Plasma 2024-07-30 14:43:21 5.6 mg/dL F 0.7-1.3 Creatinine [Mass/volume] in Serum or Plasma 2024-07-23 21:08:22 6.61 mg/dL F 0.7-1.3 CURRENT KRU 2024-07-14 20:46:32 F Unable to calculate: Post BUN lab result is unknown spKt/V 2024-07-14 20:46:32 F Unable to calculate: Post BUN lab result is unknown Std Renal KT/V 2024-07-14 20:46:32 F Unable to calculate: Post BUN lab result is unknown HEIGHT IN INCHES 2024-07-14 20:46:32 69 Inches F stdKt/V (DIAL) 2024-07-14 20:46:32 F Unable to calculate: Post BUN lab result is unknown VM (KT/V MEAN VOL) 2024-07-14 20:46:32 F Unable to calculate: Post BUN lab result is unknown WEIGHT - POST DAY 1 2024-07-14 20:46:32 102.6 kg F PRESCRIBED DAYS/WEEK 2024-07-14 20:46:32 3 Day/Wk F PATIENT AGE 2024-07-14 20:46:32 59 Years F WEIGHT (KG) 2024-07-14 20:46:32 97 kg F KT/V PRESCRIBED 2024-07-14 20:46:32 F Unable to calculate: Post BUN lab result is unknown stdKT/V Total 2024-07-14 20:46:32 F Unable to calculate: Post BUN lab result is unknown BLOOD FLOW-QWB 2024-07-14 20:46:32 450 F VT (KT/V TX VOL) 2024-07-14 20:46:32 F Unable to calculate: Post BUN lab result is unknown TBW ([facility]) 2024-07-14 20:46:32 F Unable to calculate: Post BUN lab result is unknown URR% 2024-07-14 20:46:32 F Unable to calculate: Post BUN lab result is unknown AMPUTATE FACTOR 2024-07-14 20:46:32 0 F Total Kt/V 2024-07-14 20:46:32 F Unable to calculate: Post BUN lab result is unknown LENGTH OF DIALYSIS 2024-07-14 20:46:32 241 min F nPCR 2024-07-14 20:46:32 F Unable to calculate: Post BUN lab result is unknown Dialyzer CHARLY 2024-07-14 20:46:32 1264 Calc F Residual kt/v 2024-07-14 20:46:32 F Unable to calculate: Post BUN lab result is unknown WEIGHT - PRE DAY 1 2024-07-14 20:46:32 105.2 kg F TOTAL HOURS/WEEK DIALYSIS 2024-07-14 20:46:32 11 hrs F DIALYZER FLOW-QD 2024-07-14 20:46:32 800 mL/min F eKt/V 2024-07-14 20:46:32 F Unable to calculate: Post BUN lab result is unknown BSA TERA 2024-07-14 20:46:32 F Unable to calculate: Post BUN lab result is unknown Creatinine [Mass/volume] in Serum or Plasma 2024-07-14 20:44:20 6 mg/dL F 0.7-1.3 Urea nitrogen [Mass/volume] in Serum or Plasma 2024-07-14 20:44:20 45 mg/dL F 9.0-23.0 Creatinine [Mass/volume] in Serum or Plasma 2024-07-09 15:57:28 5.79 mg/dL F 0.7-1.3 HEIGHT IN INCHES 2024-07-08 07:19:12 69 Inches F stdKt/V (DIAL) 2024-07-08 07:19:12 N/A F TBW ([facility]) 2024-07-08 07:19:12 50.59 Liters F Dialyzer CHARLY 2024-07-08 07:19:12 1264 Calc F WEIGHT (KG) 2024-07-08 07:19:12 97 kg F KT/V PRESCRIBED 2024-07-08 07:19:12 1.89 F Total Kt/V 2024-07-08 07:19:12 1.31 F spKt/V 2024-07-08 07:19:12 1.31 F VT (KT/V TX VOL) 2024-07-08 07:19:12 57.7 L F PATIENT AGE 2024-07-08 07:19:12 59 Years F BSA TERA 2024-07-08 07:19:12 2.13 sq m F TOTAL HOURS/WEEK DIALYSIS 2024-07-08 07:19:12 11 hrs F AMPUTATE FACTOR 2024-07-08 07:19:12 0 F CURRENT KRU 2024-07-08 07:19:12 F Std Renal KT/V 2024-07-08 07:19:12 N/A F Residual kt/v 2024-07-08 07:19:12 F WEIGHT - POST DAY 1 2024-07-08 07:19:12 104.2 kg F stdKT/V Total 2024-07-08 07:19:12 N/A F LENGTH OF DIALYSIS 2024-07-08 07:19:12 240 min F DIALYZER FLOW-QD 2024-07-08 07:19:12 800 mL/min F WEIGHT - PRE DAY 1 2024-07-08 07:19:12 106.7 kg F URR% 2024-07-08 07:19:12 68 % F BLOOD FLOW-QWB 2024-07-08 07:19:12 450 F nPCR 2024-07-08 07:19:12 0.71 G/KG/D F PRESCRIBED DAYS/WEEK 2024-07-08 07:19:12 3 Day/Wk F eKt/V 2024-07-08 07:19:12 1.14 F VM (KT/V MEAN VOL) 2024-07-08 07:19:12 51.6 F Urea nitrogen [Mass/volume] in Serum or Plasma --post dialysis 2024-07-08 07:17:19 14 mg/dL F 9.0-23.0 Urea nitrogen [Mass/volume] in Serum or Plasma 2024-07-07 17:04:19 44 mg/dL F 9.0-23.0 Creatinine [Mass/volume] in Serum or Plasma 2024-06-30 15:03:21 4.65 mg/dL F 0.7-1.3 Creatinine [Mass/volume] in Serum or Plasma 2024-06-19 15:04:29 5.77 mg/dL F 0.7-1.3 Residual kt/v 2024-06-04 16:41:52 F BLOOD FLOW-QWB 2024-06-04 16:41:52 450 F PATIENT AGE 2024-06-04 16:41:52 59 Years F HEIGHT IN INCHES 2024-06-04 16:41:52 69 Inches F WEIGHT - PRE DAY 1 2024-06-04 16:41:52 104.4 kg F VT (KT/V TX VOL) 2024-06-04 16:41:52 52.8 L F stdKT/V Total 2024-06-04 16:41:52 N/A F BSA TERA 2024-06-04 16:41:52 2.13 sq m F Dialyzer CHARLY 2024-06-04 16:41:52 1264 Calc F nPCR 2024-06-04 16:41:52 0.89 G/KG/D F AMPUTATE FACTOR 2024-06-04 16:41:52 0 F Total Kt/V 2024-06-04 16:41:52 1.34 F VM (KT/V MEAN VOL) 2024-06-04 16:41:52 49.6 F TBW ([facility]) 2024-06-04 16:41:52 49.82 Liters F DIALYZER FLOW-QD 2024-06-04 16:41:52 800 mL/min F CURRENT KRU 2024-06-04 16:41:52 F stdKt/V (DIAL) 2024-06-04 16:41:52 N/A F PRESCRIBED DAYS/WEEK 2024-06-04 16:41:52 3 Day/Wk F TOTAL HOURS/WEEK DIALYSIS 2024-06-04 16:41:52 10 hrs F KT/V PRESCRIBED 2024-06-04 16:41:52 1.77 F LENGTH OF DIALYSIS 2024-06-04 16:41:52 225 min F Std Renal KT/V 2024-06-04 16:41:52 N/A F URR% 2024-06-04 16:41:52 68 % F eKt/V 2024-06-04 16:41:52 1.15 F WEIGHT (KG) 2024-06-04 16:41:52 97 kg F WEIGHT - POST DAY 1 2024-06-04 16:41:52 101.9 kg F spKt/V 2024-06-04 16:41:52 1.34 F Creatinine [Mass/volume] in Serum or Plasma 2024-06-04 16:40:12 6.01 mg/dL F 0.7-1.3 Urea nitrogen [Mass/volume] in Serum or Plasma 2024-06-04 16:40:12 44 mg/dL F 9.0-23.0 Urea nitrogen [Mass/volume] in Serum or Plasma --post dialysis 2024-06-04 16:20:19 14 mg/dL F 9.0-23.0 WEIGHT - POST DAY 1 2024-05-14 15:12:15 97.7 kg F Dialyzer CHARLY 2024-05-14 15:12:15 1264 Calc F VT (KT/V TX VOL) 2024-05-14 15:12:15 49 L F Residual kt/v 2024-05-14 15:12:15 F nPCR 2024-05-14 15:12:15 1 G/KG/D F spKt/V 2024-05-14 15:12:15 1.39 F BSA TERA 2024-05-14 15:12:15 2.13 sq m F stdKt/V (DIAL) 2024-05-14 15:12:15 N/A F WEIGHT (KG) 2024-05-14 15:12:15 97 kg F VM (KT/V MEAN VOL) 2024-05-14 15:12:15 48.5 F LENGTH OF DIALYSIS 2024-05-14 15:12:15 226 min F AMPUTATE FACTOR 2024-05-14 15:12:15 0 F DIALYZER FLOW-QD 2024-05-14 15:12:15 767 mL/min F PATIENT AGE 2024-05-14 15:12:15 59 Years F PRESCRIBED DAYS/WEEK 2024-05-14 15:12:15 3 Day/Wk F KT/V PRESCRIBED 2024-05-14 15:12:15 1.78 F URR% 2024-05-14 15:12:15 69 % F CURRENT KRU 2024-05-14 15:12:15 F TOTAL HOURS/WEEK DIALYSIS 2024-05-14 15:12:15 11 hrs F BLOOD FLOW-QWB 2024-05-14 15:12:15 417 F HEIGHT IN INCHES 2024-05-14 15:12:15 69 Inches F TBW ([facility]) 2024-05-14 15:12:15 48.41 Liters F eKt/V 2024-05-14 15:12:15 1.19 F Total Kt/V 2024-05-14 15:12:15 1.39 F Std Renal KT/V 2024-05-14 15:12:15 N/A F WEIGHT - PRE DAY 1 2024-05-14 15:12:15 100.4 kg F stdKT/V Total 2024-05-14 15:12:15 N/A F Urea nitrogen [Mass/volume] in Serum or Plasma --post dialysis 2024-05-14 15:10:21 16 mg/dL F 9.0-23.0 Creatinine [Mass/volume] in Serum or Plasma 2024-05-14 14:27:22 6.09 mg/dL F 0.7-1.3 Urea nitrogen [Mass/volume] in Serum or Plasma 2024-05-14 14:27:22 52 mg/dL F 9.0-23.0 Total Kt/V 2024-04-16 14:46:07 1.32 F WEIGHT - POST DAY 1 2024-04-16 14:46:07 99.8 kg F LENGTH OF DIALYSIS 2024-04-16 14:46:07 225 min F stdKt/V (DIAL) 2024-04-16 14:46:07 N/A F Residual kt/v 2024-04-16 14:46:07 F Dialyzer CHARLY 2024-04-16 14:46:07 1264 Calc F eKt/V 2024-04-16 14:46:07 1.14 F WEIGHT - PRE DAY 1 2024-04-16 14:46:07 102.7 kg F BLOOD FLOW-QWB 2024-04-16 14:46:07 400 F TBW ([facility]) 2024-04-16 14:46:07 48.02 Liters F PRESCRIBED DAYS/WEEK 2024-04-16 14:46:07 3 Day/Wk F PATIENT AGE 2024-04-16 14:46:07 59 Years F AMPUTATE FACTOR 2024-04-16 14:46:07 0 F DIALYZER FLOW-QD 2024-04-16 14:46:07 800 mL/min F URR% 2024-04-16 14:46:07 67 % F CURRENT KRU 2024-04-16 14:46:07 F VM (KT/V MEAN VOL) 2024-04-16 14:46:07 48.3 F WEIGHT (KG) 2024-04-16 14:46:07 95 kg F TOTAL HOURS/WEEK DIALYSIS 2024-04-16 14:46:07 11 hrs F spKt/V 2024-04-16 14:46:07 1.32 F KT/V PRESCRIBED 2024-04-16 14:46:07 1.71 F HEIGHT IN INCHES 2024-04-16 14:46:07 65 Inches F stdKT/V Total 2024-04-16 14:46:07 N/A F Std Renal KT/V 2024-04-16 14:46:07 N/A F nPCR 2024-04-16 14:46:07 0.88 G/KG/D F BSA TERA 2024-04-16 14:46:07 2.02 sq m F VT (KT/V TX VOL) 2024-04-16 14:46:07 50.3 L F Urea nitrogen [Mass/volume] in Serum or Plasma --post dialysis 2024-04-16 14:44:16 15 mg/dL F 9.0-23.0 Creatinine [Mass/volume] in Serum or Plasma 2024-04-16 14:37:15 6.13 mg/dL F 0.7-1.3 Urea nitrogen [Mass/volume] in Serum or Plasma 2024-04-16 14:37:15 46 mg/dL F 9.0-23.0 BLOOD FLOW-QWB 2024-03-20 04:25:25 382 F Dialyzer CHARLY 2024-03-20 04:25:25 1264 Calc F Residual kt/v 2024-03-20 04:25:25 F spKt/V 2024-03-20 04:25:25 1.44 F WEIGHT (KG) 2024-03-20 04:25:25 95 kg F HEIGHT IN INCHES 2024-03-20 04:25:25 65 Inches F AMPUTATE FACTOR 2024-03-20 04:25:25 0 F PATIENT AGE 2024-03-20 04:25:25 59 Years F LENGTH OF DIALYSIS 2024-03-20 04:25:25 227 min F eKt/V 2024-03-20 04:25:25 1.24 F nPCR 2024-03-20 04:25:25 0.84 G/KG/D F stdKT/V Total 2024-03-20 04:25:25 N/A F TOTAL HOURS/WEEK DIALYSIS 2024-03-20 04:25:25 11 hrs F CURRENT KRU 2024-03-20 04:25:25 F Std Renal KT/V 2024-03-20 04:25:25 N/A F DIALYZER FLOW-QD 2024-03-20 04:25:25 800 mL/min F BSA TERA 2024-03-20 04:25:25 2.02 sq m F TBW ([facility]) 2024-03-20 04:25:25 46.24 Liters F VM (KT/V MEAN VOL) 2024-03-20 04:25:25 47.6 F WEIGHT - POST DAY 1 2024-03-20 04:25:25 94.5 kg F Total Kt/V 2024-03-20 04:25:25 1.44 F URR% 2024-03-20 04:25:25 71 % F stdKt/V (DIAL) 2024-03-20 04:25:25 N/A F PRESCRIBED DAYS/WEEK 2024-03-20 04:25:25 3 Day/Wk F WEIGHT - PRE DAY 1 2024-03-20 04:25:25 96.9 kg F KT/V PRESCRIBED 2024-03-20 04:25:25 1.72 F VT (KT/V TX VOL) 2024-03-20 04:25:25 45.3 L F Creatinine [Mass/volume] in Serum or Plasma 2024-03-20 04:23:21 6.09 mg/dL F 0.7-1.3 Urea nitrogen [Mass/volume] in Serum or Plasma 2024-03-20 04:23:21 41 mg/dL F 9.0-23.0 Urea nitrogen [Mass/volume] in Serum or Plasma --post dialysis 2024-03-20 01:29:25 12 mg/dL F 9.0-23.0 PATIENT AGE 2024-02-13 23:26:32 59 Years F KT/V PRESCRIBED 2024-02-13 23:26:32 1.69 F stdKt/V (DIAL) 2024-02-13 23:26:32 N/A F TBW ([facility]) 2024-02-13 23:26:32 46.34 Liters F WEIGHT (KG) 2024-02-13 23:26:32 95 kg F URR% 2024-02-13 23:26:32 68 % F Residual kt/v 2024-02-13 23:26:32 F BLOOD FLOW-QWB 2024-02-13 23:26:32 400 F HEIGHT IN INCHES 2024-02-13 23:26:32 65 Inches F Std Renal KT/V 2024-02-13 23:26:32 N/A F TOTAL HOURS/WEEK DIALYSIS 2024-02-13 23:26:32 10 hrs F AMPUTATE FACTOR 2024-02-13 23:26:32 0 F VT (KT/V TX VOL) 2024-02-13 23:26:32 51 L F stdKT/V Total 2024-02-13 23:26:32 N/A F VM (KT/V MEAN VOL) 2024-02-13 23:26:32 48.4 F WEIGHT - POST DAY 1 2024-02-13 23:26:32 94.8 kg F eKt/V 2024-02-13 23:26:32 1.1 F spKt/V 2024-02-13 23:26:32 1.28 F CURRENT KRU 2024-02-13 23:26:32 F BSA TERA 2024-02-13 23:26:32 2.02 sq m F DIALYZER FLOW-QD 2024-02-13 23:26:32 800 mL/min F PRESCRIBED DAYS/WEEK 2024-02-13 23:26:32 3 Day/Wk F Total Kt/V 2024-02-13 23:26:32 1.28 F nPCR 2024-02-13 23:26:32 0.82 G/KG/D F WEIGHT - PRE DAY 1 2024-02-13 23:26:32 95.8 kg F LENGTH OF DIALYSIS 2024-02-13 23:26:32 222 min F Dialyzer CHARLY 2024-02-13 23:26:32 1264 Calc F Urea nitrogen [Mass/volume] in Serum or Plasma --post dialysis 2024-02-13 23:24:33 14 mg/dL F 9.0-23.0 Urea nitrogen [Mass/volume] in Serum or Plasma 2024-02-13 19:11:17 44 mg/dL F 9.0-23.0 Creatinine [Mass/volume] in Serum or Plasma 2024-02-13 19:11:17 6.47 mg/dL F 0.7-1.3 stdKt/V (DIAL) 2024-01-21 15:15:15 N/A F WEIGHT - PRE DAY 1 2024-01-21 15:15:15 96.3 kg F VT (KT/V TX VOL) 2024-01-21 15:15:15 41.9 L F Total Kt/V 2024-01-21 15:15:15 1.59 F CURRENT KRU 2024-01-21 15:15:15 F Dialyzer CHARLY 2024-01-21 15:15:15 1264 Calc F WEIGHT - POST DAY 1 2024-01-21 15:15:15 94.6 kg F Residual kt/v 2024-01-21 15:15:15 F AMPUTATE FACTOR 2024-01-21 15:15:15 0 F PATIENT AGE 2024-01-21 15:15:15 59 Years F nPCR 2024-01-21 15:15:15 0.86 G/KG/D F eKt/V 2024-01-21 15:15:15 1.35 F LENGTH OF DIALYSIS 2024-01-21 15:15:15 226 min F BLOOD FLOW-QWB 2024-01-21 15:15:15 400 F DIALYZER FLOW-QD 2024-01-21 15:15:15 782 mL/min F HEIGHT IN INCHES 2024-01-21 15:15:15 65 Inches F TOTAL HOURS/WEEK DIALYSIS 2024-01-21 15:15:15 11 hrs F stdKT/V Total 2024-01-21 15:15:15 N/A F WEIGHT (KG) 2024-01-21 15:15:15 95 kg F BSA TERA 2024-01-21 15:15:15 2.02 sq m F PRESCRIBED DAYS/WEEK 2024-01-21 15:15:15 3 Day/Wk F spKt/V 2024-01-21 15:15:15 1.59 F Std Renal KT/V 2024-01-21 15:15:15 N/A F URR% 2024-01-21 15:15:15 75 % F TBW ([facility]) 2024-01-21 15:15:15 46.27 Liters F KT/V PRESCRIBED 2024-01-21 15:15:15 1.72 F VM (KT/V MEAN VOL) 2024-01-21 15:15:15 47.5 F Urea nitrogen [Mass/volume] in Serum or Plasma --post dialysis 2024-01-21 15:13:37 13 mg/dL F 9.0-23.0 Urea nitrogen [Mass/volume] in Serum or Plasma 2024-01-21 14:28:38 53 mg/dL F 9.0-23.0 URR% 2024-01-16 15:16:02 F Recollect - Shipping temp out of range Urea nitrogen [Mass/volume] in Serum or Plasma --post dialysis 2024-01-16 15:15:28 F Recollect - Shipping temp out of range Creatinine [Mass/volume] in Serum or Plasma 2024-01-16 15:14:32 F Recollect - Shipping temp out of range Urea nitrogen [Mass/volume] in Serum or Plasma 2024-01-16 15:14:32 F Recollect - Shipping temp out of range PATIENT AGE 2024-01-15 19:06:48 59 Years F AMPUTATE FACTOR 2024-01-15 19:06:48 0 F WEIGHT (KG) 2024-01-15 19:06:48 95 kg F HEIGHT IN INCHES 2024-01-15 19:06:48 65 Inches F WEIGHT - POST DAY 1 2023-12-12 18:07:06 95.1 kg F LENGTH OF DIALYSIS 2023-12-12 18:07:06 225 min F KT/V PRESCRIBED 2023-12-12 18:07:06 1.71 F eKt/V 2023-12-12 18:07:06 1.15 F Std Renal KT/V 2023-12-12 18:07:06 N/A F Total Kt/V 2023-12-12 18:07:06 1.33 F Residual kt/v 2023-12-12 18:07:06 F Dialyzer CHARLY 2023-12-12 18:07:06 1264 Calc F AMPUTATE FACTOR 2023-12-12 18:07:06 0 F WEIGHT (KG) 2023-12-12 18:07:06 95 kg F VM (KT/V MEAN VOL) 2023-12-12 18:07:06 49.3 F TOTAL HOURS/WEEK DIALYSIS 2023-12-12 18:07:06 11 hrs F VT (KT/V TX VOL) 2023-12-12 18:07:06 49.6 L F stdKT/V Total 2023-12-12 18:07:06 N/A F URR% 2023-12-12 18:07:06 68 % F PATIENT AGE 2023-12-12 18:07:06 58 Years F HEIGHT IN INCHES 2023-12-12 18:07:06 65 Inches F spKt/V 2023-12-12 18:07:06 1.33 F TBW ([facility]) 2023-12-12 18:07:06 46.54 Liters F DIALYZER FLOW-QD 2023-12-12 18:07:06 773 mL/min F nPCR 2023-12-12 18:07:06 0.8 G/KG/D F BLOOD FLOW-QWB 2023-12-12 18:07:06 400 F WEIGHT - PRE DAY 1 2023-12-12 18:07:06 98.2 kg F CURRENT KRU 2023-12-12 18:07:06 F BSA TERA 2023-12-12 18:07:06 2.02 sq m F PRESCRIBED DAYS/WEEK 2023-12-12 18:07:06 3 Day/Wk F stdKt/V (DIAL) 2023-12-12 18:07:06 N/A F Creatinine [Mass/volume] in Serum or Plasma 2023-12-12 18:05:35 6.19 mg/dL F 0.7-1.3 Urea nitrogen [Mass/volume] in Serum or Plasma 2023-12-12 18:05:35 40 mg/dL F 9.0-23.0 Urea nitrogen [Mass/volume] in Serum or Plasma --post dialysis 2023-12-12 14:58:30 13 mg/dL F 9.0-23.0 Creatinine [Mass/volume] in Serum or Plasma 2023-11-21 16:31:26 5.86 mg/dL F 0.7-1.3 Creatinine [Mass/volume] in Serum or Plasma 2023-11-18 13:42:08 F Recollect - Shipping temp out of range Creatinine [Mass/volume] in Serum or Plasma 2023-10-16 23:41:33 7.08 mg/dL F 0.7-1.3 LENGTH OF DIALYSIS 2023-10-15 20:27:41 0 min F TOTAL HOURS/WEEK DIALYSIS 2023-10-15 20:27:41 0 hrs F PRESCRIBED DAYS/WEEK 2023-10-15 20:27:41 0 Day/Wk F WEIGHT (KG) 2023-10-15 20:27:41 95 kg F AMPUTATE FACTOR 2023-10-15 20:27:41 0 F WEIGHT - POST DAY 1 2023-10-15 20:27:41 0 kg F Dialyzer CHARLY 2023-10-15 20:27:41 0 Calc F HEIGHT IN INCHES 2023-10-15 20:27:41 65 Inches F DIALYZER FLOW-QD 2023-10-15 20:27:41 0 mL/min F PATIENT AGE 2023-10-15 20:27:41 58 Years F BLOOD FLOW-QWB 2023-10-15 20:27:41 0 F WEIGHT - PRE DAY 1 2023-10-15 20:27:41 0 kg F Creatinine [Mass/volume] in Serum or Plasma 2023-09-11 14:49:36 5.1 mg/dL F 0.7-1.3 TOTAL HOURS/WEEK DIALYSIS 2023-09-10 20:20:52 0 hrs F DIALYZER FLOW-QD 2023-09-10 20:20:52 0 mL/min F WEIGHT - PRE DAY 1 2023-09-10 20:20:52 0 kg F WEIGHT (KG) 2023-09-10 20:20:52 95 kg F PATIENT AGE 2023-09-10 20:20:52 58 Years F PRESCRIBED DAYS/WEEK 2023-09-10 20:20:52 0 Day/Wk F LENGTH OF DIALYSIS 2023-09-10 20:20:52 0 min F AMPUTATE FACTOR 2023-09-10 20:20:52 0 F WEIGHT - POST DAY 1 2023-09-10 20:20:52 0 kg F Dialyzer CHARLY 2023-09-10 20:20:52 0 Calc F BLOOD FLOW-QWB 2023-09-10 20:20:52 0 F HEIGHT IN INCHES 2023-09-10 20:20:52 65 Inches F Creatinine [Mass/volume] in Serum or Plasma 2023-08-14 18:59:40 4.46 mg/dL F 0.7-1.3 DIALYZER FLOW-QD 2023-08-13 20:37:39 0 mL/min F WEIGHT (KG) 2023-08-13 20:37:39 95 kg F BLOOD FLOW-QWB 2023-08-13 20:37:39 0 F WEIGHT - PRE DAY 1 2023-08-13 20:37:39 0 kg F AMPUTATE FACTOR 2023-08-13 20:37:39 0 F HEIGHT IN INCHES 2023-08-13 20:37:39 65 Inches F Dialyzer CHARLY 2023-08-13 20:37:39 0 Calc F TOTAL HOURS/WEEK DIALYSIS 2023-08-13 20:37:39 0 hrs F LENGTH OF DIALYSIS 2023-08-13 20:37:39 0 min F WEIGHT - POST DAY 1 2023-08-13 20:37:39 0 kg F PRESCRIBED DAYS/WEEK 2023-08-13 20:37:39 0 Day/Wk F PATIENT AGE 2023-08-13 20:37:39 58 Years F Creatinine [Mass/volume] in Serum or Plasma 2023-07-17 22:21:52 4.17 mg/dL F 0.7-1.3 WEIGHT - POST DAY 1 2023-07-16 21:40:54 0 kg F PRESCRIBED DAYS/WEEK 2023-07-16 21:40:54 0 Day/Wk F DIALYZER FLOW-QD 2023-07-16 21:40:54 0 mL/min F TOTAL HOURS/WEEK DIALYSIS 2023-07-16 21:40:54 0 hrs F BLOOD FLOW-QWB 2023-07-16 21:40:54 0 F Dialyzer CHRALY 2023-07-16 21:40:54 0 Calc F HEIGHT IN INCHES 2023-07-16 21:40:54 65 Inches F WEIGHT - PRE DAY 1 2023-07-16 21:40:54 0 kg F PATIENT AGE 2023-07-16 21:40:54 58 Years F LENGTH OF DIALYSIS 2023-07-16 21:40:54 0 min F AMPUTATE FACTOR 2023-07-16 21:40:54 0 F WEIGHT (KG) 2023-07-16 21:40:54 95 kg F stdKT/V Total 2023-06-14 02:19:34 N/A F HEIGHT IN INCHES 2023-06-14 02:19:34 65 Inches F Dialyzer CHARLY 2023-06-14 02:19:34 1218 Calc F eKt/V 2023-06-14 02:19:34 0.87 F CURRENT KRU 2023-06-14 02:19:34 F URR% 2023-06-14 02:19:34 57 % F Std Renal KT/V 2023-06-14 02:19:34 N/A F spKt/V 2023-06-14 02:19:34 1.02 F nPCR 2023-06-14 02:19:34 0.63 G/KG/D F DIALYZER FLOW-QD 2023-06-14 02:19:34 500 mL/min F KT/V PRESCRIBED 2023-06-14 02:19:34 1.46 F AMPUTATE FACTOR 2023-06-14 02:19:34 0 F PRESCRIBED DAYS/WEEK 2023-06-14 02:19:34 3 Day/Wk F LENGTH OF DIALYSIS 2023-06-14 02:19:34 196 min F Total Kt/V 2023-06-14 02:19:34 1.02 F stdKt/V (DIAL) 2023-06-14 02:19:34 N/A F WEIGHT - PRE DAY 1 2023-06-14 02:19:34 98.2 kg F BSA TERA 2023-06-14 02:19:34 1.97 sq m F PATIENT AGE 2023-06-14 02:19:34 58 Years F WEIGHT (KG) 2023-06-14 02:19:34 90 kg F BLOOD FLOW-QWB 2023-06-14 02:19:34 400 F TBW ([facility]) 2023-06-14 02:19:34 46.34 Liters F WEIGHT - POST DAY 1 2023-06-14 02:19:34 94.5 kg F VT (KT/V TX VOL) 2023-06-14 02:19:34 51.9 L F VM (KT/V MEAN VOL) 2023-06-14 02:19:34 52.9 F TOTAL HOURS/WEEK DIALYSIS 2023-06-14 02:19:34 10 hrs F Residual kt/v 2023-06-14 02:19:34 F Urea nitrogen [Mass/volume] in Serum or Plasma --post dialysis 2023-06-14 02:17:07 15 mg/dL F 9.0-23.0 CRE CLR UR/BSA 2023-06-14 00:28:37 0 mL/min F 85.0-125.0 BUN/CREAT 2023-06-14 00:28:37 10.1 Calc F 6.9-32.9 KRU-UREA CLR UR 2023-06-14 00:28:37 0 mL/min F Urea nitrogen [Mass/volume] in Serum or Plasma 2023-06-14 00:28:29 35 mg/dL F 9.0-23.0 Creatinine [Mass/volume] in Serum or Plasma 2023-06-14 00:28:29 3.47 mg/dL F 0.7-1.3 TOTAL VOLUME-24 HR URINE 2023-06-11 20:54:05 0 mL F COLLECTION TIME FOR URINE 2023-06-11 20:54:05 1440 min F BODY WEIGHT (LBS) 2023-06-11 20:54:05 198 lbs F WEIGHT - PRE DAY 1 2023-05-29 19:21:22 92.3 kg F TOTAL HOURS/WEEK DIALYSIS 2023-05-29 19:21:22 3 hrs F BLOOD FLOW-QWB 2023-05-29 19:21:22 400 F PRESCRIBED DAYS/WEEK 2023-05-29 19:21:22 3 Day/Wk F BSA TERA 2023-05-29 19:21:22 1.97 sq m F PATIENT AGE 2023-05-29 19:21:22 58 Years F LENGTH OF DIALYSIS 2023-05-29 19:21:22 211 min F DIALYZER FLOW-QD 2023-05-29 19:21:22 600 mL/min F nPCR 2023-05-29 19:21:22 0.4 G/KG/D F AMPUTATE FACTOR 2023-05-29 19:21:22 0 F WEIGHT - POST DAY 1 2023-05-29 19:21:22 90.6 kg F VT (KT/V TX VOL) 2023-05-29 19:21:22 51.6 L F stdKT/V Total 2023-05-29 19:21:22 N/A F Residual kt/v 2023-05-29 19:21:22 F eKt/V 2023-05-29 19:21:22 0.98 F stdKt/V (DIAL) 2023-05-29 19:21:22 N/A F Total Kt/V 2023-05-29 19:21:22 1.14 F spKt/V 2023-05-29 19:21:22 1.14 F Dialyzer CHARLY 2023-05-29 19:21:22 1218 Calc F TBW ([facility]) 2023-05-29 19:21:22 45.02 Liters F CURRENT KRU 2023-05-29 19:21:22 F URR% 2023-05-29 19:21:22 65 % F HEIGHT IN INCHES 2023-05-29 19:21:22 65 Inches F WEIGHT (KG) 2023-05-29 19:21:22 90 kg F Std Renal KT/V 2023-05-29 19:21:22 N/A F VM (KT/V MEAN VOL) 2023-05-29 19:21:22 51.6 F KT/V PRESCRIBED 2023-05-29 19:21:22 1.58 F Urea nitrogen [Mass/volume] in Serum or Plasma --post dialysis 2023-05-29 19:19:52 19 mg/dL F 9.0-23.0 BUN/CREAT 2023-05-29 18:51:29 10.1 Calc F 6.9-32.9 CRE CLR UR/BSA 2023-05-29 18:51:29 0 mL/min F 85.0-125.0 KRU-UREA CLR UR 2023-05-29 18:51:29 0 mL/min F Creatinine [Mass/volume] in Serum or Plasma 2023-05-29 18:51:22 5.44 mg/dL F 0.7-1.3 Urea nitrogen [Mass/volume] in Serum or Plasma 2023-05-29 18:51:22 55 mg/dL F 9.0-23.0 COLLECTION TIME FOR URINE 2023-05-28 19:43:20 1440 min F TOTAL VOLUME-24 HR URINE 2023-05-28 19:43:20 0 mL F BODY WEIGHT (LBS) 2023-05-28 19:43:20 199.3 lbs F Urea nitrogen [Mass/volume] in Serum or Plasma --post dialysis Dialyzer CHARLY eKt/V AMPUTATE FACTOR URR% DIALYZER FLOW-QD LENGTH OF DIALYSIS BSA TERA TBW ([facility]) stdKt/V (DIAL) Std Renal KT/V WEIGHT - POST DAY 1 WEIGHT (KG) VT (KT/V TX VOL) TOTAL HOURS/WEEK DIALYSIS CURRENT KRU PRESCRIBED DAYS/WEEK Total Kt/V Urea nitrogen [Mass/volume] in Serum or Plasma nPCR PATIENT AGE stdKT/V Total HEIGHT IN INCHES WEIGHT - PRE DAY 1 spKt/V Residual kt/v VM (KT/V MEAN VOL) BLOOD FLOW-QWB KT/V PRESCRIBED PRESCRIBED DAYS/WEEK DIALYZER FLOW-QD BLOOD FLOW-QWB WEIGHT - PRE DAY 1 nPCR eKt/V BSA TERA KT/V PRESCRIBED VM (KT/V MEAN VOL) Total Kt/V Std Renal KT/V TBW ([facility]) TOTAL HOURS/WEEK DIALYSIS Dialyzer CHARLY WEIGHT - POST DAY 1 LENGTH OF DIALYSIS VT (KT/V TX VOL) stdKt/V (DIAL) stdKT/V Total spKt/V Residual kt/v CURRENT KRU WEIGHT - PRE DAY 1 eKt/V VM (KT/V MEAN VOL) TOTAL HOURS/WEEK DIALYSIS CURRENT KRU DIALYZER FLOW-QD Std Renal KT/V Residual kt/v Urea nitrogen [Mass/volume] in Serum or Plasma WEIGHT - POST DAY 1 BLOOD FLOW-QWB stdKt/V (DIAL) Total Kt/V spKt/V Dialyzer CHARLY AMPUTATE FACTOR WEIGHT (KG) BSA TERA VT (KT/V TX VOL) KT/V PRESCRIBED LENGTH OF DIALYSIS URR% TBW ([facility]) PRESCRIBED DAYS/WEEK PATIENT AGE stdKT/V Total HEIGHT IN INCHES nPCR KT/V PRESCRIBED Residual kt/v Urea nitrogen [Mass/volume] in Serum or Plasma URR% stdKt/V (DIAL) BSA TERA VT (KT/V TX VOL) stdKT/V Total Total Kt/V spKt/V eKt/V CURRENT KRU nPCR Std Renal KT/V TBW () VM (KT/V MEAN VOL) Urea nitrogen [Mass/volume] in Serum or Plasma --post dialysis Urea nitrogen [Mass/volume] in Serum or Plasma Residual kt/v nPCR Total Kt/V stdKt/V (DIAL) eKt/V KT/V PRESCRIBED spKt/V CURRENT KRU BSA TERA URR% VT (KT/V TX VOL) Std Renal KT/V TBW ([facility]) stdKT/V Total VM (KT/V MEAN VOL) Urea nitrogen [Mass/volume] in Serum or Plasma --post dialysis URR% TBW () VM (KT/V MEAN VOL) Std Renal KT/V Urea nitrogen [Mass/volume] in Serum or Plasma VT (KT/V TX VOL) spKt/V Total Kt/V Residual kt/v stdKt/V (DIAL) eKt/V CURRENT KRU stdKT/V Total KT/V PRESCRIBED nPCR BSA TERA spKt/V CURRENT KRU URR% KT/V PRESCRIBED TBW ([facility]) Std Renal KT/V Total Kt/V BSA TERA Urea nitrogen [Mass/volume] in Serum or Plasma Residual kt/v VT (KT/V TX VOL) eKt/V VM (KT/V MEAN VOL) stdKt/V (DIAL) nPCR stdKT/V Total Anemia Description Draw Date Result/Unit Status Ref Range Result Comments HCT CALC HGBX3 2024-08-05 05:06:53 39.6 % F 42.0-52.0 Hemoglobin [Mass/volume] in Blood 2024-08-05 05:06:14 13.2 g/dL F 14.0-18.0 HCT CALC HGBX3 2024-07-30 22:35:05 39.6 % F 42.0-52.0 Hemoglobin [Mass/volume] in Blood 2024-07-30 22:34:15 13.2 g/dL F 14.0-18.0 HCT CALC HGBX3 2024-07-23 22:04:23 37.8 % F 42.0-52.0 Hemoglobin [Mass/volume] in Blood 2024-07-23 22:03:20 12.6 g/dL F 14.0-18.0 HCT CALC HGBX3 2024-07-15 20:22:52 36.6 % F 42.0-52.0 TIBC 2024-07-15 10:10:54 368 ug/dL F 250.0-425.0 IRON SATURATION 2024-07-15 10:10:54 17 % F 21.0-49.0 Ferritin [Mass/volume] in Serum or Plasma 2024-07-15 08:47:52 204 ng/mL F 22.0-322.0 Iron binding capacity.unsaturated [Mass/volume] in Serum or Plasma 2024-07-15 07:07:11 304 ug/dL F 75.0-360.0 Iron [Mass/volume] in Serum or Plasma 2024-07-15 07:07:11 64 ug/dL F 65.0-175.0 Hemoglobin [Mass/volume] in Blood 2024-07-15 04:30:13 12.2 g/dL F 14.0-18.0 MCHC [Mass/volume] by Automated count 2024-07-15 04:30:13 29.2 g/dL F 29.6-35.3 Erythrocytes [#/volume] in Blood by Automated count 2024-07-15 04:30:13 3.5 x 10^6 cells/uL F 4.6-6.2 Erythrocyte distribution width [Ratio] by Automated count 2024-07-15 04:30:13 17.2 % F 11.0-15.0 Platelets [#/volume] in Blood by Automated count 2024-07-15 04:30:13 155 x 10^3 cells/uL F 140.0-450.0 MCH [Entitic mass] by Automated count 2024-07-15 04:30:13 34.8 pg F 25.9-34.2 Hematocrit [Volume Fraction] of Blood by Automated count 2024-07-15 04:30:13 41.6 % F 41.0-53.0 MCV [Entitic volume] by Automated count 2024-07-15 04:30:13 118.8 fL F 80.0-100.0 HCT CALC HGBX3 2024-07-01 04:48:13 35.1 % F 42.0-52.0 Hemoglobin [Mass/volume] in Blood 2024-07-01 04:47:22 11.7 g/dL F 14.0-18.0 HCT CALC HGBX3 2024-06-19 13:35:01 38.4 % F 42.0-52.0 Erythrocytes [#/volume] in Blood by Automated count 2024-06-19 13:34:16 3.55 x 10^6 cells/uL F 4.6-6.2 Hematocrit [Volume Fraction] of Blood by Automated count 2024-06-19 13:34:16 41.9 % F 41.0-53.0 MCV [Entitic volume] by Automated count 2024-06-19 13:34:16 118.1 fL F 80.0-100.0 Erythrocyte distribution width [Ratio] by Automated count 2024-06-19 13:34:16 17.8 % F 11.0-15.0 Hemoglobin [Mass/volume] in Blood 2024-06-19 13:34:16 12.8 g/dL F 14.0-18.0 MCH [Entitic mass] by Automated count 2024-06-19 13:34:16 36 pg F 25.9-34.2 Platelets [#/volume] in Blood by Automated count 2024-06-19 13:34:16 185 x 10^3 cells/uL F 140.0-450.0 MCHC [Mass/volume] by Automated count 2024-06-19 13:34:16 30.4 g/dL F 29.6-35.3 HCT CALC HGBX3 2024-05-14 16:55:56 35.7 % F 42.0-52.0 Hemoglobin [Mass/volume] in Blood 2024-05-14 16:53:25 11.9 g/dL F 14.0-18.0 MCV [Entitic volume] by Automated count 2024-05-14 16:53:25 112.9 fL F 80.0-100.0 Erythrocytes [#/volume] in Blood by Automated count 2024-05-14 16:53:25 3.52 x 10'6 cells/uL F 4.6-6.2 Hematocrit [Volume Fraction] of Blood by Automated count 2024-05-14 16:53:25 39.7 % F 41.0-53.0 Platelets [#/volume] in Blood by Automated count 2024-05-14 16:53:23 145 x 10^3 cells/uL F 140.0-450.0 MCH [Entitic mass] by Automated count 2024-05-14 16:53:23 34 pg F 25.9-34.2 Erythrocyte distribution width [Ratio] by Automated count 2024-05-14 16:53:23 17.8 % F 11.0-15.0 MCHC [Mass/volume] by Automated count 2024-05-14 16:53:23 30.1 g/dL F 29.6-35.3 Ferritin [Mass/volume] in Serum or Plasma 2024-04-17 04:24:49 161 ng/mL F 22.0-322.0 IRON SATURATION 2024-04-17 04:01:25 30 % F 21.0-49.0 TIBC 2024-04-17 04:01:25 327 ug/dL F 250.0-425.0 Iron [Mass/volume] in Serum or Plasma 2024-04-17 03:59:33 98 ug/dL F 65.0-175.0 Iron binding capacity.unsaturated [Mass/volume] in Serum or Plasma 2024-04-17 03:59:33 229 ug/dL F 75.0-360.0 HCT CALC HGBX3 2024-04-16 15:10:41 38.4 % F 42.0-52.0 Erythrocyte distribution width [Ratio] by Automated count 2024-04-16 15:09:14 17.7 % F 11.0-15.0 Platelets [#/volume] in Blood by Automated count 2024-04-16 15:09:14 159 x 10^3 cells/uL F 140.0-450.0 MCHC [Mass/volume] by Automated count 2024-04-16 15:09:14 30.7 g/dL F 29.6-35.3 Erythrocytes [#/volume] in Blood by Automated count 2024-04-16 15:09:14 3.81 x 10'6 cells/uL F 4.6-6.2 MCV [Entitic volume] by Automated count 2024-04-16 15:09:14 109.4 fL F 80.0-100.0 Hemoglobin [Mass/volume] in Blood 2024-04-16 15:09:14 12.8 g/dL F 14.0-18.0 MCH [Entitic mass] by Automated count 2024-04-16 15:09:14 33.5 pg F 25.9-34.2 Hematocrit [Volume Fraction] of Blood by Automated count 2024-04-16 15:09:14 41.7 % F 41.0-53.0 HCT CALC HGBX3 2024-03-20 02:17:04 34.8 % F 42.0-52.0 Erythrocyte distribution width [Ratio] by Automated count 2024-03-20 02:16:26 15.9 % F 11.0-15.0 MCH [Entitic mass] by Automated count 2024-03-20 02:16:26 31.8 pg F 25.9-34.2 MCHC [Mass/volume] by Automated count 2024-03-20 02:16:26 29.9 g/dL F 29.6-35.3 MCV [Entitic volume] by Automated count 2024-03-20 02:16:26 106.4 fL F 80.0-100.0 Hemoglobin [Mass/volume] in Blood 2024-03-20 02:16:26 11.6 g/dL F 14.0-18.0 Platelets [#/volume] in Blood by Automated count 2024-03-20 02:16:26 136 x 10^3 cells/uL F 140.0-450.0 Erythrocytes [#/volume] in Blood by Automated count 2024-03-20 02:16:26 3.64 x 10'6 cells/uL F 4.6-6.2 Hematocrit [Volume Fraction] of Blood by Automated count 2024-03-20 02:16:26 38.7 % F 41.0-53.0 IRON SATURATION 2024-02-14 04:49:51 31 % F 21.0-49.0 TIBC 2024-02-14 04:49:51 284 ug/dL F 250.0-425.0 Iron [Mass/volume] in Serum or Plasma 2024-02-14 04:44:00 88 ug/dL F 65.0-175.0 Iron binding capacity.unsaturated [Mass/volume] in Serum or Plasma 2024-02-14 04:44:00 196 ug/dL F 75.0-360.0 Ferritin [Mass/volume] in Serum or Plasma 2024-02-14 03:46:28 221 ng/mL F 22.0-322.0 HCT CALC HGBX3 2024-02-13 23:50:44 37.2 % F 42.0-52.0 Hematocrit [Volume Fraction] of Blood by Automated count 2024-02-13 23:50:21 40.1 % F 41.0-53.0 MCHC [Mass/volume] by Automated count 2024-02-13 23:50:21 31 g/dL F 29.6-35.3 MCV [Entitic volume] by Automated count 2024-02-13 23:50:21 106.9 fL F 80.0-100.0 Platelets [#/volume] in Blood by Automated count 2024-02-13 23:50:21 153 x 10^3 cells/uL F 140.0-450.0 Hemoglobin [Mass/volume] in Blood 2024-02-13 23:50:21 12.4 g/dL F 14.0-18.0 Erythrocyte distribution width [Ratio] by Automated count 2024-02-13 23:50:21 15 % F 11.0-15.0 MCH [Entitic mass] by Automated count 2024-02-13 23:50:21 33.1 pg F 25.9-34.2 Erythrocytes [#/volume] in Blood by Automated count 2024-02-13 23:50:21 3.75 x 10'6 cells/uL F 4.6-6.2 HCT CALC HGBX3 2024-01-22 00:56:56 39.3 % F 42.0-52.0 Erythrocyte distribution width [Ratio] by Automated count 2024-01-22 00:56:35 15 % F 11.0-15.0 Hemoglobin [Mass/volume] in Blood 2024-01-22 00:56:35 13.1 g/dL F 14.0-18.0 MCH [Entitic mass] by Automated count 2024-01-22 00:56:35 32.7 pg F 25.9-34.2 Hematocrit [Volume Fraction] of Blood by Automated count 2024-01-22 00:56:35 43.9 % F 41.0-53.0 Platelets [#/volume] in Blood by Automated count 2024-01-22 00:56:35 140 x 10^3 cells/uL F 140.0-450.0 MCHC [Mass/volume] by Automated count 2024-01-22 00:56:35 29.9 g/dL F 29.6-35.3 Erythrocytes [#/volume] in Blood by Automated count 2024-01-22 00:56:35 4.01 x 10'6 cells/uL F 4.6-6.2 MCV [Entitic volume] by Automated count 2024-01-22 00:56:35 109.5 fL F 80.0-100.0 Ferritin [Mass/volume] in Serum or Plasma 2024-01-22 00:16:26 203 ng/mL F 22.0-322.0 IRON SATURATION 2024-01-21 18:23:56 23 % F 21.0-49.0 TIBC 2024-01-21 18:23:56 309 ug/dL F 250.0-425.0 Iron [Mass/volume] in Serum or Plasma 2024-01-21 18:23:07 70 ug/dL F 65.0-175.0 Iron binding capacity.unsaturated [Mass/volume] in Serum or Plasma 2024-01-21 18:23:07 239 ug/dL F 75.0-360.0 TIBC 2024-01-16 15:16:02 F Recollect - Shipping temp out of range IRON SATURATION 2024-01-16 15:16:02 F Recollect - Shipping temp out of range HCT CALC HGBX3 2024-01-16 15:16:02 F Recollect - Shipping temp out of range Platelets [#/volume] in Blood by Automated count 2024-01-16 15:15:28 F Recollect - Shipping temp out of range Hemoglobin [Mass/volume] in Blood 2024-01-16 15:15:28 F Recollect - Shipping temp out of range MCH [Entitic mass] by Automated count 2024-01-16 15:15:28 F Recollect - Shipping temp out of range Erythrocytes [#/volume] in Blood by Automated count 2024-01-16 15:15:28 F Recollect - Shipping temp out of range MCV [Entitic volume] by Automated count 2024-01-16 15:15:28 F Recollect - Shipping temp out of range Hematocrit [Volume Fraction] of Blood by Automated count 2024-01-16 15:15:28 F Recollect - Shipping temp out of range Erythrocyte distribution width [Ratio] by Automated count 2024-01-16 15:15:28 F Recollect - Shipping temp out of range MCHC [Mass/volume] by Automated count 2024-01-16 15:15:28 F Recollect - Shipping temp out of range Iron binding capacity.unsaturated [Mass/volume] in Serum or Plasma 2024-01-16 15:14:32 F Recollect - Shipping temp out of range Iron [Mass/volume] in Serum or Plasma 2024-01-16 15:14:32 F Recollect - Shipping temp out of range Ferritin [Mass/volume] in Serum or Plasma 2024-01-16 15:14:32 F Recollect - Shipping temp out of range HCT CALC HGBX3 2023-12-12 14:49:45 38.1 % F 42.0-52.0 Erythrocyte distribution width [Ratio] by Automated count 2023-12-12 14:48:34 15.9 % F 11.0-15.0 Hemoglobin [Mass/volume] in Blood 2023-12-12 14:48:34 12.7 g/dL F 14.0-18.0 MCH [Entitic mass] by Automated count 2023-12-12 14:48:34 32.3 pg F 25.9-34.2 Erythrocytes [#/volume] in Blood by Automated count 2023-12-12 14:48:34 3.93 x 10'6 cells/uL F 4.6-6.2 Hematocrit [Volume Fraction] of Blood by Automated count 2023-12-12 14:48:34 42.2 % F 41.0-53.0 Platelets [#/volume] in Blood by Automated count 2023-12-12 14:48:34 173 x 10^3 cells/uL F 140.0-450.0 MCHC [Mass/volume] by Automated count 2023-12-12 14:48:34 30.1 g/dL F 29.6-35.3 MCV [Entitic volume] by Automated count 2023-12-12 14:48:34 107.3 fL F 80.0-100.0 HCT CALC HGBX3 2023-11-21 16:11:26 36.3 % F 42.0-52.0 Erythrocytes [#/volume] in Blood by Automated count 2023-11-21 16:10:38 3.7 x 10'6 cells/uL F 4.6-6.2 Platelets [#/volume] in Blood by Automated count 2023-11-21 16:10:38 189 x 10^3 cells/uL F 140.0-450.0 Erythrocyte distribution width [Ratio] by Automated count 2023-11-21 16:10:36 18.8 % F 11.0-15.0 MCHC [Mass/volume] by Automated count 2023-11-21 16:10:36 31 g/dL F 29.6-35.3 MCV [Entitic volume] by Automated count 2023-11-21 16:10:36 105.6 fL F 80.0-100.0 Hemoglobin [Mass/volume] in Blood 2023-11-21 16:10:36 12.1 g/dL F 14.0-18.0 MCH [Entitic mass] by Automated count 2023-11-21 16:10:36 32.7 pg F 25.9-34.2 Hematocrit [Volume Fraction] of Blood by Automated count 2023-11-21 16:10:36 39 % F 41.0-53.0 HCT CALC HGBX3 2023-11-18 13:40:26 F Recollect - Shipping temp out of range Hematocrit [Volume Fraction] of Blood by Automated count 2023-11-18 13:39:19 F Recollect - Shipping temp out of range MCHC [Mass/volume] by Automated count 2023-11-18 13:39:19 F Recollect - Shipping temp out of range Platelets [#/volume] in Blood by Automated count 2023-11-18 13:39:19 F Recollect - Shipping temp out of range MCV [Entitic volume] by Automated count 2023-11-18 13:39:19 F Recollect - Shipping temp out of range Erythrocytes [#/volume] in Blood by Automated count 2023-11-18 13:39:19 F Recollect - Shipping temp out of range Erythrocyte distribution width [Ratio] by Automated count 2023-11-18 13:39:19 F Recollect - Shipping temp out of range Hemoglobin [Mass/volume] in Blood 2023-11-18 13:39:19 F Recollect - Shipping temp out of range MCH [Entitic mass] by Automated count 2023-11-18 13:39:19 F Recollect - Shipping temp out of range IRON SATURATION 2023-10-17 05:26:52 27 % F 21.0-49.0 TIBC 2023-10-17 05:26:52 355 ug/dL F 250.0-425.0 Iron [Mass/volume] in Serum or Plasma 2023-10-17 05:11:46 97 ug/dL F 65.0-175.0 Iron binding capacity.unsaturated [Mass/volume] in Serum or Plasma 2023-10-17 05:11:46 258 ug/dL F 75.0-360.0 Ferritin [Mass/volume] in Serum or Plasma 2023-10-17 00:21:52 290 ng/mL F 22.0-322.0 HCT CALC HGBX3 2023-10-16 16:49:36 38.1 % F 42.0-52.0 Erythrocyte distribution width [Ratio] by Automated count 2023-10-16 16:48:40 18.2 % F 11.0-15.0 Hemoglobin [Mass/volume] in Blood 2023-10-16 16:48:40 12.7 g/dL F 14.0-18.0 Platelets [#/volume] in Blood by Automated count 2023-10-16 16:48:40 151 x 10^3 cells/uL F 140.0-450.0 MCH [Entitic mass] by Automated count 2023-10-16 16:48:40 31 pg F 25.9-34.2 MCHC [Mass/volume] by Automated count 2023-10-16 16:48:40 31.3 g/dL F 29.6-35.3 Erythrocytes [#/volume] in Blood by Automated count 2023-10-16 16:48:40 4.08 x 10'6 cells/uL F 4.6-6.2 Hematocrit [Volume Fraction] of Blood by Automated count 2023-10-16 16:48:40 40.5 % F 41.0-53.0 MCV [Entitic volume] by Automated count 2023-10-16 16:48:40 99.2 fL F 80.0-100.0 HCT CALC HGBX3 2023-09-11 15:37:13 31.2 % F 42.0-52.0 Erythrocyte distribution width [Ratio] by Automated count 2023-09-11 15:36:41 20.3 % F 11.0-15.0 Hemoglobin [Mass/volume] in Blood 2023-09-11 15:36:41 10.4 g/dL F 14.0-18.0 MCHC [Mass/volume] by Automated count 2023-09-11 15:36:41 27.8 g/dL F 29.6-35.3 MCH [Entitic mass] by Automated count 2023-09-11 15:36:41 28.6 pg F 25.9-34.2 Hematocrit [Volume Fraction] of Blood by Automated count 2023-09-11 15:36:41 37.3 % F 41.0-53.0 Platelets [#/volume] in Blood by Automated count 2023-09-11 15:36:41 167 x 10^3 cells/uL F 140.0-450.0 Erythrocytes [#/volume] in Blood by Automated count 2023-09-11 15:36:41 3.63 x 10'6 cells/uL F 4.6-6.2 MCV [Entitic volume] by Automated count 2023-09-11 15:36:41 102.7 fL F 80.0-100.0 HCT CALC HGBX3 2023-08-14 20:59:01 32.1 % F 42.0-52.0 Erythrocyte distribution width [Ratio] by Automated count 2023-08-14 20:58:41 18.6 % F 11.0-15.0 Hemoglobin [Mass/volume] in Blood 2023-08-14 20:58:41 10.7 g/dL F 14.0-18.0 Platelets [#/volume] in Blood by Automated count 2023-08-14 20:58:41 250 x 10^3 cells/uL F 140.0-450.0 MCH [Entitic mass] by Automated count 2023-08-14 20:58:41 28.4 pg F 25.9-34.2 MCHC [Mass/volume] by Automated count 2023-08-14 20:58:41 29.3 g/dL F 29.6-35.3 Hematocrit [Volume Fraction] of Blood by Automated count 2023-08-14 20:58:41 36.5 % F 41.0-53.0 MCV [Entitic volume] by Automated count 2023-08-14 20:58:41 96.9 fL F 80.0-100.0 Erythrocytes [#/volume] in Blood by Automated count 2023-08-14 20:58:41 3.77 x 10'6 cells/uL F 4.6-6.2 HCT CALC HGBX3 2023-07-17 20:15:24 31.8 % F 42.0-52.0 MCHC [Mass/volume] by Automated count 2023-07-17 20:14:57 30 g/dL F 29.6-35.3 MCV [Entitic volume] by Automated count 2023-07-17 20:14:57 96 fL F 80.0-100.0 Erythrocyte distribution width [Ratio] by Automated count 2023-07-17 20:14:57 16.6 % F 11.0-15.0 MCH [Entitic mass] by Automated count 2023-07-17 20:14:57 28.8 pg F 25.9-34.2 Erythrocytes [#/volume] in Blood by Automated count 2023-07-17 20:14:54 3.69 x 10'6 cells/uL F 4.6-6.2 Hematocrit [Volume Fraction] of Blood by Automated count 2023-07-17 20:14:54 35.4 % F 41.0-53.0 Platelets [#/volume] in Blood by Automated count 2023-07-17 20:14:54 311 x 10^3 cells/uL F 140.0-450.0 Hemoglobin [Mass/volume] in Blood 2023-07-17 20:14:54 10.6 g/dL F 14.0-18.0 Ferritin [Mass/volume] in Serum or Plasma 2023-06-14 08:17:14 45 ng/mL F 22.0-322.0 IRON SATURATION 2023-06-14 07:34:54 13 % F 21.0-49.0 TIBC 2023-06-14 07:34:54 328 ug/dL F 250.0-425.0 Iron [Mass/volume] in Serum or Plasma 2023-06-14 07:18:48 41 ug/dL F 65.0-175.0 Iron binding capacity.unsaturated [Mass/volume] in Serum or Plasma 2023-06-14 07:18:48 287 ug/dL F 75.0-360.0 HCT CALC HGBX3 2023-06-13 22:31:36 27.3 % F 42.0-52.0 Hemoglobin [Mass/volume] in Blood 2023-06-13 22:31:10 9.1 g/dL F 14.0-18.0 TIBC 2023-05-30 07:16:17 295 ug/dL F 250.0-425.0 IRON SATURATION 2023-05-30 07:16:17 16 % F 21.0-49.0 Iron [Mass/volume] in Serum or Plasma 2023-05-30 07:10:58 47 ug/dL F 65.0-175.0 Iron binding capacity.unsaturated [Mass/volume] in Serum or Plasma 2023-05-30 07:10:58 248 ug/dL F 75.0-360.0 Ferritin [Mass/volume] in Serum or Plasma 2023-05-30 02:40:10 98 ng/mL F 22.0-322.0 Comorbidities Description Draw Date Result/Unit Status Ref Range Result Comments Hemoglobin A1c/Hemoglobin.total in Blood 2024-07-15 04:50:13 5.1 %A1c F 0.0-5.6 Hemoglobin A1c/Hemoglobin.total in Blood 2024-04-16 20:39:45 5.1 %A1c F 0.0-5.6 Hemoglobin A1c/Hemoglobin.total in Blood 2024-01-22 07:05:26 4.6 %A1c F 0.0-5.6 Hemoglobin A1c/Hemoglobin.total in Blood 2024-01-16 15:15:28 F Recollect - Shipping temp out of range Hemoglobin A1c/Hemoglobin.total in Blood 2023-10-17 15:17:59 5.1 %A1c F 0.0-5.6 Hemoglobin A1c/Hemoglobin.total in Blood 2023-05-30 06:24:53 5 %A1c F 0.0-5.6 FluidBP Description Draw Date Result/Unit Status Ref Range Result Comments Sodium [Moles/volume] in Serum or Plasma 2023-06-14 07:18:48 143 mEq/L F 132.0-146.0 Sodium [Moles/volume] in Serum or Plasma 2023-05-30 07:10:52 140 mEq/L F 132.0-146.0 General Description Draw Date Result/Unit Status Ref Range Result Comments Chloride [Moles/volume] in Serum or Plasma 2024-07-15 07:07:11 96 mEq/L F 99.0-109.0 Aspartate aminotransferase [Enzymatic activity/volume] in Serum or Plasma 2024-07-14 20:44:20 34 U/L F 0.0-33.0 Alanine aminotransferase [Enzymatic activity/volume] in Serum or Plasma 2024-07-14 20:44:20 18 U/L F 10.0-49.0 Chloride [Moles/volume] in Serum or Plasma 2024-06-20 06:23:19 97 mEq/L F 99.0-109.0 Aspartate aminotransferase [Enzymatic activity/volume] in Serum or Plasma 2024-06-19 15:04:29 47 U/L F 0.0-33.0 Alanine aminotransferase [Enzymatic activity/volume] in Serum or Plasma 2024-06-19 15:04:29 26 U/L F 10.0-49.0 Chloride [Moles/volume] in Serum or Plasma 2024-05-14 21:07:30 97 mEq/L F 99.0-109.0 Alanine aminotransferase [Enzymatic activity/volume] in Serum or Plasma 2024-05-14 14:27:22 38 U/L F 10.0-49.0 Aspartate aminotransferase [Enzymatic activity/volume] in Serum or Plasma 2024-05-14 14:27:22 61 U/L F 0.0-33.0 Chloride [Moles/volume] in Serum or Plasma 2024-04-17 03:59:33 96 mEq/L F 99.0-109.0 Aspartate aminotransferase [Enzymatic activity/volume] in Serum or Plasma 2024-04-16 14:37:15 48 U/L F 0.0-33.0 Alanine aminotransferase [Enzymatic activity/volume] in Serum or Plasma 2024-04-16 14:37:15 28 U/L F 10.0-49.0 Chloride [Moles/volume] in Serum or Plasma 2024-03-20 07:29:35 93 mEq/L F 99.0-109.0 Aspartate aminotransferase [Enzymatic activity/volume] in Serum or Plasma 2024-03-20 04:23:21 30 U/L F 0.0-33.0 Alanine aminotransferase [Enzymatic activity/volume] in Serum or Plasma 2024-03-20 04:23:21 12 U/L F 10.0-49.0 Chloride [Moles/volume] in Serum or Plasma 2024-02-14 04:44:00 93 mEq/L F 99.0-109.0 Aspartate aminotransferase [Enzymatic activity/volume] in Serum or Plasma 2024-02-13 19:11:17 23 U/L F 0.0-33.0 Alanine aminotransferase [Enzymatic activity/volume] in Serum or Plasma 2024-02-13 19:11:17 9 U/L F 10.0-49.0 Chloride [Moles/volume] in Serum or Plasma 2024-01-21 18:23:07 91 mEq/L F 99.0-109.0 Aspartate aminotransferase [Enzymatic activity/volume] in Serum or Plasma 2024-01-21 14:28:38 27 U/L F 0.0-33.0 Alanine aminotransferase [Enzymatic activity/volume] in Serum or Plasma 2024-01-21 14:28:38 12 U/L F 10.0-49.0 Aspartate aminotransferase [Enzymatic activity/volume] in Serum or Plasma 2024-01-16 15:14:32 F Recollect - Shipping temp out of range Alanine aminotransferase [Enzymatic activity/volume] in Serum or Plasma 2024-01-16 15:14:32 F Recollect - Shipping temp out of range Chloride [Moles/volume] in Serum or Plasma 2024-01-16 15:14:32 F Recollect - Shipping temp out of range Chloride [Moles/volume] in Serum or Plasma 2023-12-13 07:16:14 95 mEq/L F 99.0-109.0 Aspartate aminotransferase [Enzymatic activity/volume] in Serum or Plasma 2023-12-12 18:05:35 31 U/L F 0.0-33.0 Alanine aminotransferase [Enzymatic activity/volume] in Serum or Plasma 2023-12-12 18:05:35 14 U/L F 10.0-49.0 Chloride [Moles/volume] in Serum or Plasma 2023-11-22 03:40:24 99 mEq/L F 99.0-109.0 Aspartate aminotransferase [Enzymatic activity/volume] in Serum or Plasma 2023-11-21 16:31:26 21 U/L F 0.0-33.0 Alanine aminotransferase [Enzymatic activity/volume] in Serum or Plasma 2023-11-21 16:31:26 9 U/L F 10.0-49.0 Aspartate aminotransferase [Enzymatic activity/volume] in Serum or Plasma 2023-11-18 13:42:08 F Recollect - Shipping temp out of range Alanine aminotransferase [Enzymatic activity/volume] in Serum or Plasma 2023-11-18 13:42:08 F Recollect - Shipping temp out of range Chloride [Moles/volume] in Serum or Plasma 2023-11-18 13:42:08 F Recollect - Shipping temp out of range Chloride [Moles/volume] in Serum or Plasma 2023-10-17 05:11:46 96 mEq/L F 99.0-109.0 Aspartate aminotransferase [Enzymatic activity/volume] in Serum or Plasma 2023-10-16 23:41:33 24 U/L F 0.0-33.0 Alanine aminotransferase [Enzymatic activity/volume] in Serum or Plasma 2023-10-16 23:41:33 12 U/L F 10.0-49.0 Aluminum [Mass/volume] in Serum or Plasma 2023-10-16 18:40:57 10 ug/L F 0.0-9.0 Chloride [Moles/volume] in Serum or Plasma 2023-09-11 18:33:00 99 mEq/L F 99.0-109.0 Aspartate aminotransferase [Enzymatic activity/volume] in Serum or Plasma 2023-09-11 14:49:36 30 U/L F 0.0-33.0 Alanine aminotransferase [Enzymatic activity/volume] in Serum or Plasma 2023-09-11 14:49:36 13 U/L F 10.0-49.0 Chloride [Moles/volume] in Serum or Plasma 2023-08-15 06:35:23 98 mEq/L F 99.0-109.0 Alanine aminotransferase [Enzymatic activity/volume] in Serum or Plasma 2023-08-14 18:59:40 16 U/L F 10.0-49.0 Aspartate aminotransferase [Enzymatic activity/volume] in Serum or Plasma 2023-08-14 18:59:40 32 U/L F 0.0-33.0 Chloride [Moles/volume] in Serum or Plasma 2023-07-18 06:53:32 96 mEq/L F 99.0-109.0 Aspartate aminotransferase [Enzymatic activity/volume] in Serum or Plasma 2023-07-17 22:21:52 18 U/L F 0.0-33.0 Alanine aminotransferase [Enzymatic activity/volume] in Serum or Plasma 2023-07-17 22:21:52 9 U/L F 10.0-49.0 Chloride [Moles/volume] in Serum or Plasma 2023-06-14 07:18:48 99 mEq/L F 99.0-109.0 Chloride [Moles/volume] in Serum or Plasma 2023-05-30 07:10:52 99 mEq/L F 99.0-109.0 Aluminum [Mass/volume] in Serum or Plasma 2023-05-29 19:34:59 10 ug/L F 0.0-9.0 Alanine aminotransferase [Enzymatic activity/volume] in Serum or Plasma 2023-05-29 18:51:22 15 U/L F 10.0-49.0 InfectionVaccination Description Draw Date Result/Unit Status Ref Range Result Comments Basophils/100 leukocytes in Blood by Automated count 2024-07-15 04:30:13 1.1 % F Monocytes/100 leukocytes in Blood by Automated count 2024-07-15 04:30:13 9.3 % F Monocytes [#/volume] in Blood by Automated count 2024-07-15 04:30:13 415 Cells/uL F 0.0-1100.0 Neutrophils [#/volume] in Blood by Automated count 2024-07-15 04:30:13 3002 Cells/uL F 2000.0-8800. 0 Leukocytes [#/volume] in Blood by Automated count 2024-07-15 04:30:13 4.5 x 10^3 cells/uL F 4.0-11.0 Lymphocytes [#/volume] in Blood by Automated count 2024-07-15 04:30:13 901 Cells/uL F 620.0-3660.0 Eosinophils/100 leukocytes in Blood by Automated count 2024-07-15 04:30:13 2.1 % F Lymphocytes/100 leukocytes in Blood by Automated count 2024-07-15 04:30:13 20.2 % F Basophils [#/volume] in Blood by Automated count 2024-07-15 04:30:13 49 Cells/uL F 0.0-400.0 Eosinophils [#/volume] in Blood by Automated count 2024-07-15 04:30:13 94 Cells/uL F 0.0-700.0 Neutrophils/100 leukocytes in Blood by Automated count 2024-07-15 04:30:13 67.3 % F Lymphocytes/100 leukocytes in Blood by Automated count 2024-06-19 13:34:16 21 % F Basophils [#/volume] in Blood by Automated count 2024-06-19 13:34:16 38 Cells/uL F 0.0-400.0 Eosinophils [#/volume] in Blood by Automated count 2024-06-19 13:34:16 129 Cells/uL F 0.0-700.0 Leukocytes [#/volume] in Blood by Automated count 2024-06-19 13:34:16 4.2 x 10^3 cells/uL F 4.0-11.0 Basophils/100 leukocytes in Blood by Automated count 2024-06-19 13:34:16 0.9 % F Monocytes/100 leukocytes in Blood by Automated count 2024-06-19 13:34:16 9.9 % F Eosinophils/100 leukocytes in Blood by Automated count 2024-06-19 13:34:16 3.1 % F Neutrophils/100 leukocytes in Blood by Automated count 2024-06-19 13:34:16 65.1 % F Monocytes [#/volume] in Blood by Automated count 2024-06-19 13:34:16 413 Cells/uL F 0.0-1100.0 Neutrophils [#/volume] in Blood by Automated count 2024-06-19 13:34:16 2715 Cells/uL F 2000.0-8800. 0 Lymphocytes [#/volume] in Blood by Automated count 2024-06-19 13:34:16 876 Cells/uL F 620.0-3660.0 Eosinophils/100 leukocytes in Blood by Automated count 2024-05-14 16:53:25 4.5 % F Monocytes/100 leukocytes in Blood by Automated count 2024-05-14 16:53:25 8.2 % F Basophils [#/volume] in Blood by Automated count 2024-05-14 16:53:25 23 Cells/uL F 0.0-400.0 Leukocytes [#/volume] in Blood by Automated count 2024-05-14 16:53:25 3.8 x 10^3 cells/uL F 4.0-11.0 Basophils/100 leukocytes in Blood by Automated count 2024-05-14 16:53:23 0.6 % F Monocytes [#/volume] in Blood by Automated count 2024-05-14 16:53:23 309 Cells/uL F 0.0-1100.0 Neutrophils [#/volume] in Blood by Automated count 2024-05-14 16:53:23 2243 Cells/uL F 2000.0-8800. 0 Lymphocytes/100 leukocytes in Blood by Automated count 2024-05-14 16:53:23 27.2 % F Neutrophils/100 leukocytes in Blood by Automated count 2024-05-14 16:53:23 59.5 % F Eosinophils [#/volume] in Blood by Automated count 2024-05-14 16:53:23 170 Cells/uL F 0.0-700.0 Lymphocytes [#/volume] in Blood by Automated count 2024-05-14 16:53:23 1025 Cells/uL F 620.0-3660.0 Eosinophils/100 leukocytes in Blood by Automated count 2024-04-16 15:09:14 4.9 % F Basophils [#/volume] in Blood by Automated count 2024-04-16 15:09:14 29 Cells/uL F 0.0-400.0 Neutrophils [#/volume] in Blood by Automated count 2024-04-16 15:09:14 2350 Cells/uL F 2000.0-8800. 0 Lymphocytes/100 leukocytes in Blood by Automated count 2024-04-16 15:09:14 31 % F Neutrophils/100 leukocytes in Blood by Automated count 2024-04-16 15:09:14 56.9 % F Basophils/100 leukocytes in Blood by Automated count 2024-04-16 15:09:14 0.7 % F Monocytes/100 leukocytes in Blood by Automated count 2024-04-16 15:09:14 6.5 % F Monocytes [#/volume] in Blood by Automated count 2024-04-16 15:09:14 268 Cells/uL F 0.0-1100.0 Eosinophils [#/volume] in Blood by Automated count 2024-04-16 15:09:14 202 Cells/uL F 0.0-700.0 Leukocytes [#/volume] in Blood by Automated count 2024-04-16 15:09:14 4.1 x 10^3 cells/uL F 4.0-11.0 Lymphocytes [#/volume] in Blood by Automated count 2024-04-16 15:09:14 1280 Cells/uL F 620.0-3660.0 Lymphocytes/100 leukocytes in Blood by Automated count 2024-03-20 02:16:26 35.9 % F Neutrophils/100 leukocytes in Blood by Automated count 2024-03-20 02:16:26 46.1 % F Monocytes/100 leukocytes in Blood by Automated count 2024-03-20 02:16:26 7.8 % F Monocytes [#/volume] in Blood by Automated count 2024-03-20 02:16:26 254 Cell/uL F 0.0-1100.0 Basophils [#/volume] in Blood by Automated count 2024-03-20 02:16:26 39 Cell/uL F 0.0-400.0 Eosinophils [#/volume] in Blood by Automated count 2024-03-20 02:16:26 297 Cell/uL F 0.0-700.0 Neutrophils [#/volume] in Blood by Automated count 2024-03-20 02:16:26 1503 Cell/uL F 2000.0-8800. 0 Eosinophils/100 leukocytes in Blood by Automated count 2024-03-20 02:16:26 9.1 % F Basophils/100 leukocytes in Blood by Automated count 2024-03-20 02:16:26 1.2 % F Leukocytes [#/volume] in Blood by Automated count 2024-03-20 02:16:26 3.3 x 10^3 cells/uL F 4.0-11.0 Lymphocytes [#/volume] in Blood by Automated count 2024-03-20 02:16:26 1170 Cell/uL F 620.0-3660.0 Monocytes/100 leukocytes in Blood by Automated count 2024-02-13 23:50:21 7.9 % F Basophils/100 leukocytes in Blood by Automated count 2024-02-13 23:50:21 2 % F Neutrophils/100 leukocytes in Blood by Automated count 2024-02-13 23:50:21 56.6 % F Eosinophils/100 leukocytes in Blood by Automated count 2024-02-13 23:50:21 4.9 % F Lymphocytes/100 leukocytes in Blood by Automated count 2024-02-13 23:50:21 28.7 % F Basophils [#/volume] in Blood by Automated count 2024-02-13 23:50:21 88 Cell/uL F 0.0-400.0 Eosinophils [#/volume] in Blood by Automated count 2024-02-13 23:50:21 215 Cell/uL F 0.0-700.0 Monocytes [#/volume] in Blood by Automated count 2024-02-13 23:50:21 347 Cell/uL F 0.0-1100.0 Neutrophils [#/volume] in Blood by Automated count 2024-02-13 23:50:21 2485 Cell/uL F 2000.0-8800. 0 Leukocytes [#/volume] in Blood by Automated count 2024-02-13 23:50:21 4.4 x 10^3 cells/uL F 4.0-11.0 Lymphocytes [#/volume] in Blood by Automated count 2024-02-13 23:50:21 1260 Cell/uL F 620.0-3660.0 Neutrophils/100 leukocytes in Blood by Automated count 2024-01-22 00:56:35 51.4 % F Eosinophils/100 leukocytes in Blood by Automated count 2024-01-22 00:56:35 6.3 % F Basophils/100 leukocytes in Blood by Automated count 2024-01-22 00:56:35 1.7 % F Monocytes/100 leukocytes in Blood by Automated count 2024-01-22 00:56:35 9 % F Monocytes [#/volume] in Blood by Automated count 2024-01-22 00:56:35 345 Cell/uL F 0.0-1100.0 Eosinophils [#/volume] in Blood by Automated count 2024-01-22 00:56:35 241 Cell/uL F 0.0-700.0 Lymphocytes [#/volume] in Blood by Automated count 2024-01-22 00:56:35 1210 Cell/uL F 620.0-3660.0 Lymphocytes/100 leukocytes in Blood by Automated count 2024-01-22 00:56:35 31.6 % F Basophils [#/volume] in Blood by Automated count 2024-01-22 00:56:35 65 Cell/uL F 0.0-400.0 Neutrophils [#/volume] in Blood by Automated count 2024-01-22 00:56:35 1969 Cell/uL F 2000.0-8800. 0 Leukocytes [#/volume] in Blood by Automated count 2024-01-22 00:56:35 3.8 x 10^3 cells/uL F 4.0-11.0 Lymphocytes [#/volume] in Blood by Automated count 2024-01-16 15:15:28 F Recollect - Shipping temp out of range Eosinophils/100 leukocytes in Blood by Automated count 2024-01-16 15:15:28 F Recollect - Shipping temp out of range Basophils/100 leukocytes in Blood by Automated count 2024-01-16 15:15:28 F Recollect - Shipping temp out of range Monocytes [#/volume] in Blood by Automated count 2024-01-16 15:15:28 F Recollect - Shipping temp out of range Leukocytes [#/volume] in Blood by Automated count 2024-01-16 15:15:28 F Recollect - Shipping temp out of range Basophils [#/volume] in Blood by Automated count 2024-01-16 15:15:28 F Recollect - Shipping temp out of range Monocytes/100 leukocytes in Blood by Automated count 2024-01-16 15:15:28 F Recollect - Shipping temp out of range Neutrophils [#/volume] in Blood by Automated count 2024-01-16 15:15:28 F Recollect - Shipping temp out of range Neutrophils/100 leukocytes in Blood by Automated count 2024-01-16 15:15:28 F Recollect - Shipping temp out of range Eosinophils [#/volume] in Blood by Automated count 2024-01-16 15:15:28 F Recollect - Shipping temp out of range Lymphocytes/100 leukocytes in Blood by Automated count 2024-01-16 15:15:28 F Recollect - Shipping temp out of range Neutrophils/100 leukocytes in Blood by Automated count 2023-12-12 14:48:34 59.4 % F Lymphocytes/100 leukocytes in Blood by Automated count 2023-12-12 14:48:34 28.5 % F Basophils/100 leukocytes in Blood by Automated count 2023-12-12 14:48:34 0.7 % F Eosinophils/100 leukocytes in Blood by Automated count 2023-12-12 14:48:34 5.7 % F Basophils [#/volume] in Blood by Automated count 2023-12-12 14:48:34 29 Cell/uL F 0.0-400.0 Eosinophils [#/volume] in Blood by Automated count 2023-12-12 14:48:34 238 Cell/uL F 0.0-700.0 Neutrophils [#/volume] in Blood by Automated count 2023-12-12 14:48:34 2477 Cell/uL F 2000.0-8800. 0 Lymphocytes [#/volume] in Blood by Automated count 2023-12-12 14:48:34 1188 Cell/uL F 620.0-3660.0 Monocytes/100 leukocytes in Blood by Automated count 2023-12-12 14:48:34 5.6 % F Monocytes [#/volume] in Blood by Automated count 2023-12-12 14:48:34 234 Cell/uL F 0.0-1100.0 Leukocytes [#/volume] in Blood by Automated count 2023-12-12 14:48:34 4.2 x 10^3 cells/uL F 4.0-11.0 Leukocytes [#/volume] in Blood by Automated count 2023-11-21 16:10:38 4.4 x 10^3 cells/uL F 4.0-11.0 Neutrophils/100 leukocytes in Blood by Automated count 2023-11-21 16:10:38 59.9 % F Monocytes/100 leukocytes in Blood by Automated count 2023-11-21 16:10:38 5.8 % F Basophils [#/volume] in Blood by Automated count 2023-11-21 16:10:38 22 Cell/uL F 0.0-400.0 Eosinophils/100 leukocytes in Blood by Automated count 2023-11-21 16:10:36 6.7 % F Lymphocytes [#/volume] in Blood by Automated count 2023-11-21 16:10:36 1206 Cell/uL F 620.0-3660.0 Basophils/100 leukocytes in Blood by Automated count 2023-11-21 16:10:36 0.5 % F Monocytes [#/volume] in Blood by Automated count 2023-11-21 16:10:36 258 Cell/uL F 0.0-1100.0 Lymphocytes/100 leukocytes in Blood by Automated count 2023-11-21 16:10:36 27.1 % F Eosinophils [#/volume] in Blood by Automated count 2023-11-21 16:10:36 298 Cell/uL F 0.0-700.0 Neutrophils [#/volume] in Blood by Automated count 2023-11-21 16:10:36 2666 Cell/uL F 2000.0-8800. 0 Eosinophils/100 leukocytes in Blood by Automated count 2023-11-18 13:39:19 F Recollect - Shipping temp out of range Eosinophils [#/volume] in Blood by Automated count 2023-11-18 13:39:19 F Recollect - Shipping temp out of range Lymphocytes/100 leukocytes in Blood by Automated count 2023-11-18 13:39:19 F Recollect - Shipping temp out of range Lymphocytes [#/volume] in Blood by Automated count 2023-11-18 13:39:19 F Recollect - Shipping temp out of range Monocytes [#/volume] in Blood by Automated count 2023-11-18 13:39:19 F Recollect - Shipping temp out of range Leukocytes [#/volume] in Blood by Automated count 2023-11-18 13:39:19 F Recollect - Shipping temp out of range Neutrophils [#/volume] in Blood by Automated count 2023-11-18 13:39:19 F Recollect - Shipping temp out of range Basophils [#/volume] in Blood by Automated count 2023-11-18 13:39:19 F Recollect - Shipping temp out of range Basophils/100 leukocytes in Blood by Automated count 2023-11-18 13:39:19 F Recollect - Shipping temp out of range Neutrophils/100 leukocytes in Blood by Automated count 2023-11-18 13:39:19 F Recollect - Shipping temp out of range Monocytes/100 leukocytes in Blood by Automated count 2023-11-18 13:39:19 F Recollect - Shipping temp out of range Lymphocytes/100 leukocytes in Blood by Automated count 2023-10-16 16:48:42 20.7 % F Basophils/100 leukocytes in Blood by Automated count 2023-10-16 16:48:42 0.9 % F Eosinophils/100 leukocytes in Blood by Automated count 2023-10-16 16:48:42 6.3 % F Lymphocytes [#/volume] in Blood by Automated count 2023-10-16 16:48:42 946 Cell/uL F 620.0-3660.0 Neutrophils/100 leukocytes in Blood by Automated count 2023-10-16 16:48:40 65.9 % F Monocytes [#/volume] in Blood by Automated count 2023-10-16 16:48:40 288 Cell/uL F 0.0-1100.0 Basophils [#/volume] in Blood by Automated count 2023-10-16 16:48:40 41 Cell/uL F 0.0-400.0 Eosinophils [#/volume] in Blood by Automated count 2023-10-16 16:48:40 288 Cell/uL F 0.0-700.0 Neutrophils [#/volume] in Blood by Automated count 2023-10-16 16:48:40 3012 Cell/uL F 2000.0-8800. 0 Leukocytes [#/volume] in Blood by Automated count 2023-10-16 16:48:40 4.6 x 10^3 cells/uL F 4.0-11.0 Monocytes/100 leukocytes in Blood by Automated count 2023-10-16 16:48:40 6.3 % F Neutrophils/100 leukocytes in Blood by Automated count 2023-09-11 15:36:41 66.2 % F Basophils/100 leukocytes in Blood by Automated count 2023-09-11 15:36:41 0.9 % F Eosinophils/100 leukocytes in Blood by Automated count 2023-09-11 15:36:41 4.5 % F Neutrophils [#/volume] in Blood by Automated count 2023-09-11 15:36:41 2774 Cell/uL F 2000.0-8800. 0 Leukocytes [#/volume] in Blood by Automated count 2023-09-11 15:36:41 4.2 x 10^3 cells/uL F 4.0-11.0 Monocytes/100 leukocytes in Blood by Automated count 2023-09-11 15:36:41 6.1 % F Lymphocytes/100 leukocytes in Blood by Automated count 2023-09-11 15:36:41 22.3 % F Monocytes [#/volume] in Blood by Automated count 2023-09-11 15:36:41 256 Cell/uL F 0.0-1100.0 Eosinophils [#/volume] in Blood by Automated count 2023-09-11 15:36:41 189 Cell/uL F 0.0-700.0 Basophils [#/volume] in Blood by Automated count 2023-09-11 15:36:41 38 Cell/uL F 0.0-400.0 Lymphocytes [#/volume] in Blood by Automated count 2023-09-11 15:36:41 934 Cell/uL F 620.0-3660.0 Basophils/100 leukocytes in Blood by Automated count 2023-08-14 20:58:41 0.3 % F Lymphocytes/100 leukocytes in Blood by Automated count 2023-08-14 20:58:41 22.7 % F Monocytes/100 leukocytes in Blood by Automated count 2023-08-14 20:58:41 5.8 % F Neutrophils/100 leukocytes in Blood by Automated count 2023-08-14 20:58:41 67.6 % F Neutrophils [#/volume] in Blood by Automated count 2023-08-14 20:58:41 2724 Cell/uL F 2000.0-8800. 0 Lymphocytes [#/volume] in Blood by Automated count 2023-08-14 20:58:41 915 Cell/uL F 620.0-3660.0 Eosinophils/100 leukocytes in Blood by Automated count 2023-08-14 20:58:41 3.6 % F Monocytes [#/volume] in Blood by Automated count 2023-08-14 20:58:41 234 Cell/uL F 0.0-1100.0 Basophils [#/volume] in Blood by Automated count 2023-08-14 20:58:41 12 Cell/uL F 0.0-400.0 Eosinophils [#/volume] in Blood by Automated count 2023-08-14 20:58:41 145 Cell/uL F 0.0-700.0 Leukocytes [#/volume] in Blood by Automated count 2023-08-14 20:58:41 4 x 10^3 cells/uL F 4.0-11.0 Lymphocytes [#/volume] in Blood by Automated count 2023-07-17 20:14:57 1200 Cell/uL F 620.0-3660.0 Monocytes/100 leukocytes in Blood by Automated count 2023-07-17 20:14:54 6.5 % F Lymphocytes/100 leukocytes in Blood by Automated count 2023-07-17 20:14:54 21.5 % F Eosinophils [#/volume] in Blood by Automated count 2023-07-17 20:14:54 246 Cell/uL F 0.0-700.0 Monocytes [#/volume] in Blood by Automated count 2023-07-17 20:14:54 363 Cell/uL F 0.0-1100.0 Neutrophils [#/volume] in Blood by Automated count 2023-07-17 20:14:54 3739 Cell/uL F 2000.0-8800. 0 Neutrophils/100 leukocytes in Blood by Automated count 2023-07-17 20:14:54 67 % F Eosinophils/100 leukocytes in Blood by Automated count 2023-07-17 20:14:54 4.4 % F Basophils/100 leukocytes in Blood by Automated count 2023-07-17 20:14:54 0.7 % F Basophils [#/volume] in Blood by Automated count 2023-07-17 20:14:54 39 Cell/uL F 0.0-400.0 Leukocytes [#/volume] in Blood by Automated count 2023-07-17 20:14:54 5.6 x 10^3 cells/uL F 4.0-11.0 MineralBone Disorder Description Draw Date Result/Unit Status Ref Range Result Comments CA CORRECTED 2024-07-15 10:14:12 9.2 mg/dL F CA*PO4 CORRCTD 2024-07-15 10:10:54 57 Calc F 21.0-53.0 CA/PHOS PRODUCT 2024-07-15 10:10:54 57 Calc F 21.0-53.0 Phosphate [Mass/volume] in Serum or Plasma 2024-07-15 07:07:11 6.2 mg/dL F 2.4-5.1 Calcium [Mass/volume] in Serum or Plasma 2024-07-15 07:07:11 9.2 mg/dL F 8.7-10.4 Parathyrin.intact [Mass/volume] in Serum or Plasma 2024-07-15 04:06:21 599 pg/mL F 18.0-80.0 Alkaline phosphatase [Enzymatic activity/volume] in Serum or Plasma 2024-07-14 20:44:20 76 U/L F 46.0-116.0 CA CORRECTED 2024-06-20 08:29:29 8.4 mg/dL F CA*PO4 CORRCTD 2024-06-20 08:26:17 54.6 Calc F 21.0-53.0 CA/PHOS PRODUCT 2024-06-20 08:26:17 54.6 Calc F 21.0-53.0 Calcium [Mass/volume] in Serum or Plasma 2024-06-20 06:23:19 8.4 mg/dL F 8.7-10.4 Phosphate [Mass/volume] in Serum or Plasma 2024-06-20 06:23:19 6.5 mg/dL F 2.4-5.1 Alkaline phosphatase [Enzymatic activity/volume] in Serum or Plasma 2024-06-19 15:04:29 61 U/L F 46.0-116.0 Parathyrin.intact [Mass/volume] in Serum or Plasma 2024-06-19 14:23:21 1032 pg/mL F 18.0-80.0 CA CORRECTED 2024-05-14 21:11:36 9.6 mg/dL F CA*PO4 CORRCTD 2024-05-14 21:09:26 56.6 Calc F 21.0-53.0 CA/PHOS PRODUCT 2024-05-14 21:09:26 56.6 Calc F 21.0-53.0 Phosphate [Mass/volume] in Serum or Plasma 2024-05-14 21:05:52 5.9 mg/dL F 2.4-5.1 Calcium [Mass/volume] in Serum or Plasma 2024-05-14 21:05:52 9.6 mg/dL F 8.7-10.4 Parathyrin.intact [Mass/volume] in Serum or Plasma 2024-05-14 15:54:19 121 pg/mL F 18.0-80.0 Alkaline phosphatase [Enzymatic activity/volume] in Serum or Plasma 2024-05-14 14:27:22 54 U/L F 46.0-116.0 CA CORRECTED 2024-04-17 04:02:21 9.8 mg/dL F CA/PHOS PRODUCT 2024-04-17 04:01:25 63.7 Calc F 21.0-53.0 CA*PO4 CORRCTD 2024-04-17 04:01:25 63.7 Calc F 21.0-53.0 Calcium [Mass/volume] in Serum or Plasma 2024-04-17 03:59:33 9.8 mg/dL F 8.7-10.4 Parathyrin.intact [Mass/volume] in Serum or Plasma 2024-04-16 23:19:17 105 pg/mL F 18.0-80.0 Alkaline phosphatase [Enzymatic activity/volume] in Serum or Plasma 2024-04-16 14:37:15 54 U/L F 46.0-116.0 Phosphate [Mass/volume] in Serum or Plasma 2024-04-16 14:37:15 6.5 mg/dL F 2.4-5.1 CA CORRECTED 2024-03-20 10:31:43 8.9 mg/dL F CA*PO4 CORRCTD 2024-03-20 07:54:58 50.7 Calc F 21.0-53.0 CA/PHOS PRODUCT 2024-03-20 07:54:58 50.7 Calc F 21.0-53.0 Calcium [Mass/volume] in Serum or Plasma 2024-03-20 07:29:35 8.9 mg/dL F 8.7-10.4 Phosphate [Mass/volume] in Serum or Plasma 2024-03-20 04:23:21 5.7 mg/dL F 2.4-5.1 Alkaline phosphatase [Enzymatic activity/volume] in Serum or Plasma 2024-03-20 04:23:21 48 U/L F 46.0-116.0 Parathyrin.intact [Mass/volume] in Serum or Plasma 2024-03-20 03:49:20 381 pg/mL F 18.0-80.0 CA CORRECTED 2024-02-14 04:59:59 9.7 mg/dL F CA*PO4 CORRCTD 2024-02-14 04:49:51 52.4 Calc F 21.0-53.0 CA/PHOS PRODUCT 2024-02-14 04:49:51 52.4 Calc F 21.0-53.0 Calcium [Mass/volume] in Serum or Plasma 2024-02-14 04:44:00 9.7 mg/dL F 8.7-10.4 Parathyrin.intact [Mass/volume] in Serum or Plasma 2024-02-13 20:03:28 221 pg/mL F 18.0-80.0 Phosphate [Mass/volume] in Serum or Plasma 2024-02-13 19:11:17 5.4 mg/dL F 2.4-5.1 Alkaline phosphatase [Enzymatic activity/volume] in Serum or Plasma 2024-02-13 19:11:17 58 U/L F 46.0-116.0 CA CORRECTED 2024-01-21 18:26:15 9.9 mg/dL F CA/PHOS PRODUCT 2024-01-21 18:23:56 67.3 Calc F 21.0-53.0 CA*PO4 CORRCTD 2024-01-21 18:23:56 67.3 Calc F 21.0-53.0 Calcium [Mass/volume] in Serum or Plasma 2024-01-21 18:23:07 9.9 mg/dL F 8.7-10.4 Parathyrin.intact [Mass/volume] in Serum or Plasma 2024-01-21 14:57:34 569 pg/mL F 18.0-80.0 Phosphate [Mass/volume] in Serum or Plasma 2024-01-21 14:28:38 6.8 mg/dL F 2.4-5.1 Alkaline phosphatase [Enzymatic activity/volume] in Serum or Plasma 2024-01-21 14:28:38 51 U/L F 46.0-116.0 CA/PHOS PRODUCT 2024-01-16 15:16:02 F Recollect - Shipping temp out of range CA*PO4 CORRCTD 2024-01-16 15:16:02 F Recollect - Shipping temp out of range Alkaline phosphatase [Enzymatic activity/volume] in Serum or Plasma 2024-01-16 15:14:32 F Recollect - Shipping temp out of range Phosphate [Mass/volume] in Serum or Plasma 2024-01-16 15:14:32 F Recollect - Shipping temp out of range Calcium [Mass/volume] in Serum or Plasma 2024-01-16 15:14:32 F Recollect - Shipping temp out of range Parathyrin.intact [Mass/volume] in Serum or Plasma 2024-01-16 15:14:32 F Recollect - Shipping temp out of range CA CORRECTED 2023-12-13 07:47:00 8.9 mg/dL F CA/PHOS PRODUCT 2023-12-13 07:29:13 72.1 Calc F 21.0-53.0 CA*PO4 CORRCTD 2023-12-13 07:29:13 72.1 Calc F 21.0-53.0 Calcium [Mass/volume] in Serum or Plasma 2023-12-13 07:16:14 8.9 mg/dL F 8.7-10.4 Parathyrin.intact [Mass/volume] in Serum or Plasma 2023-12-13 07:03:28 591 pg/mL F 18.0-80.0 Phosphate [Mass/volume] in Serum or Plasma 2023-12-12 18:05:35 8.1 mg/dL F 2.4-5.1 Alkaline phosphatase [Enzymatic activity/volume] in Serum or Plasma 2023-12-12 18:05:35 51 U/L F 46.0-116.0 CA CORRECTED 2023-11-22 03:53:16 9.5 mg/dL F CA/PHOS PRODUCT 2023-11-22 03:49:08 52.3 Calc F 21.0-53.0 CA*PO4 CORRCTD 2023-11-22 03:49:08 52.3 Calc F 21.0-53.0 Parathyrin.intact [Mass/volume] in Serum or Plasma 2023-11-22 03:41:44 515 pg/mL F 18.0-80.0 Calcium [Mass/volume] in Serum or Plasma 2023-11-22 03:40:24 9.5 mg/dL F 8.7-10.4 Alkaline phosphatase [Enzymatic activity/volume] in Serum or Plasma 2023-11-21 16:31:26 54 U/L F 46.0-116.0 Phosphate [Mass/volume] in Serum or Plasma 2023-11-21 16:31:26 5.5 mg/dL F 2.4-5.1 CA*PO4 CORRCTD 2023-11-18 13:43:29 F Recollect - Shipping temp out of range CA/PHOS PRODUCT 2023-11-18 13:43:29 F Recollect - Shipping temp out of range Alkaline phosphatase [Enzymatic activity/volume] in Serum or Plasma 2023-11-18 13:42:08 F Recollect - Shipping temp out of range Calcium [Mass/volume] in Serum or Plasma 2023-11-18 13:42:08 F Recollect - Shipping temp out of range Phosphate [Mass/volume] in Serum or Plasma 2023-11-18 13:42:08 F Recollect - Shipping temp out of range Parathyrin.intact [Mass/volume] in Serum or Plasma 2023-11-18 13:42:08 F Recollect - Shipping temp out of range CA CORRECTED 2023-10-17 05:35:01 9.1 mg/dL F CA*PO4 CORRCTD 2023-10-17 05:26:52 63.7 Calc F 21.0-53.0 CA/PHOS PRODUCT 2023-10-17 05:26:52 63.7 Calc F 21.0-53.0 Calcium [Mass/volume] in Serum or Plasma 2023-10-17 05:11:46 9.1 mg/dL F 8.7-10.4 25-Hydroxyvitamin D3+25-Hydroxyvitamin D2 [Mass/volume] in Serum or Plasma 2023-10-17 00:22:11 13.1 ng/mL F Parathyrin.intact [Mass/volume] in Serum or Plasma 2023-10-17 00:21:52 612 pg/mL F 18.0-80.0 Phosphate [Mass/volume] in Serum or Plasma 2023-10-16 23:41:33 7 mg/dL F 2.4-5.1 Alkaline phosphatase [Enzymatic activity/volume] in Serum or Plasma 2023-10-16 23:41:33 60 U/L F 46.0-116.0 CA CORRECTED 2023-09-11 18:36:32 8.9 mg/dL F CA*PO4 CORRCTD 2023-09-11 18:34:18 60.5 Calc F 21.0-53.0 CA/PHOS PRODUCT 2023-09-11 18:34:18 60.5 Calc F 21.0-53.0 Calcium [Mass/volume] in Serum or Plasma 2023-09-11 18:33:57 8.9 mg/dL F 8.7-10.4 Parathyrin.intact [Mass/volume] in Serum or Plasma 2023-09-11 17:38:28 863 pg/mL F 18.0-80.0 Phosphate [Mass/volume] in Serum or Plasma 2023-09-11 14:49:36 6.8 mg/dL F 2.4-5.1 Alkaline phosphatase [Enzymatic activity/volume] in Serum or Plasma 2023-09-11 14:49:36 61 U/L F 46.0-116.0 Parathyrin.intact [Mass/volume] in Serum or Plasma 2023-08-15 06:52:10 726 pg/mL F 18.0-80.0 CA CORRECTED 2023-08-15 06:46:28 8.6 mg/dL F CA*PO4 CORRCTD 2023-08-15 06:40:43 45.6 Calc F 21.0-53.0 CA/PHOS PRODUCT 2023-08-15 06:40:43 44.5 Calc F 21.0-53.0 Calcium [Mass/volume] in Serum or Plasma 2023-08-15 06:35:23 8.4 mg/dL F 8.7-10.4 Phosphate [Mass/volume] in Serum or Plasma 2023-08-14 18:59:40 5.3 mg/dL F 2.4-5.1 Alkaline phosphatase [Enzymatic activity/volume] in Serum or Plasma 2023-08-14 18:59:40 65 U/L F 46.0-116.0 CA CORRECTED 2023-07-18 07:01:47 8.8 mg/dL F CA/PHOS PRODUCT 2023-07-18 06:57:59 57.6 Calc F 21.0-53.0 CA*PO4 CORRCTD 2023-07-18 06:57:59 59 Calc F 21.0-53.0 Calcium [Mass/volume] in Serum or Plasma 2023-07-18 06:53:36 8.6 mg/dL F 8.7-10.4 Parathyrin.intact [Mass/volume] in Serum or Plasma 2023-07-18 05:06:46 483 pg/mL F 18.0-80.0 Phosphate [Mass/volume] in Serum or Plasma 2023-07-17 22:21:52 6.7 mg/dL F 2.4-5.1 Alkaline phosphatase [Enzymatic activity/volume] in Serum or Plasma 2023-07-17 22:21:52 69 U/L F 46.0-116.0 Parathyrin.intact [Mass/volume] in Serum or Plasma 2023-06-14 08:17:14 529 pg/mL F 18.0-80.0 CA CORRECTED 2023-06-14 07:47:31 9 mg/dL F CA/PHOS PRODUCT 2023-06-14 07:34:54 56.3 Calc F 21.0-53.0 CA*PO4 CORRCTD 2023-06-14 07:34:54 57.6 Calc F 21.0-53.0 Calcium [Mass/volume] in Serum or Plasma 2023-06-14 07:18:48 8.8 mg/dL F 8.7-10.4 Phosphate [Mass/volume] in Serum or Plasma 2023-06-14 00:28:22 6.4 mg/dL F 2.4-5.1 25-Hydroxyvitamin D3+25-Hydroxyvitamin D2 [Mass/volume] in Serum or Plasma 2023-05-30 02:40:02 15.3 ng/mL F CA CORRECTED F CA CORRECTED F CA/PHOS PRODUCT CA CORRECTED Calcium [Mass/volume] in Serum or Plasma Phosphate [Mass/volume] in Serum or Plasma CA*PO4 CORRCTD Parathyrin.intact [Mass/volume] in Serum or Plasma Nutrition Description Draw Date Result/Unit Status Ref Range Result Comments Potassium [Moles/volume] in Serum or Plasma 2024-07-15 07:07:11 5.1 mEq/L F 3.5-5.5 GLOBULIN 2024-07-14 20:45:28 2.7 g/dL F 0.9-5.0 A/G RATIO 2024-07-14 20:45:28 1.6 Calc F 1.0-2.5 Lactate dehydrogenase [Enzymatic activity/volume] in Serum or Plasma 2024-07-14 20:44:20 377 U/L F 120.0-246.0 Bicarbonate [Moles/volume] in Serum or Plasma 2024-07-14 20:44:20 31 mEq/L F 20.0-31.0 Albumin [Mass/volume] in Serum or Plasma by Bromocresol green (BCG) dye binding method 2024-07-14 20:44:20 4.3 g/dL F 3.4-4.8 Protein [Mass/volume] in Serum or Plasma 2024-07-14 20:44:20 7 g/dL F 5.7-8.2 Potassium [Moles/volume] in Serum or Plasma 2024-06-20 06:23:19 5 mEq/L F 3.5-5.5 A/G RATIO 2024-06-19 15:05:36 1.8 Calc F 1.0-2.5 GLOBULIN 2024-06-19 15:05:36 2.3 g/dL F 0.9-5.0 Bicarbonate [Moles/volume] in Serum or Plasma 2024-06-19 15:04:29 29 mEq/L F 20.0-31.0 Protein [Mass/volume] in Serum or Plasma 2024-06-19 15:04:29 6.5 g/dL F 5.7-8.2 Lactate dehydrogenase [Enzymatic activity/volume] in Serum or Plasma 2024-06-19 15:04:29 417 U/L F 120.0-246.0 Albumin [Mass/volume] in Serum or Plasma by Bromocresol green (BCG) dye binding method 2024-06-19 15:04:29 4.2 g/dL F 3.4-4.8 Potassium [Moles/volume] in Serum or Plasma 2024-05-14 21:07:30 5.3 mEq/L F 3.5-5.5 GLOBULIN 2024-05-14 14:28:22 2.5 g/dL F 0.9-5.0 A/G RATIO 2024-05-14 14:28:22 1.7 Calc F 1.0-2.5 Lactate dehydrogenase [Enzymatic activity/volume] in Serum or Plasma 2024-05-14 14:27:22 465 U/L F 120.0-246.0 Bicarbonate [Moles/volume] in Serum or Plasma 2024-05-14 14:27:22 31 mEq/L F 20.0-31.0 Albumin [Mass/volume] in Serum or Plasma by Bromocresol green (BCG) dye binding method 2024-05-14 14:27:22 4.2 g/dL F 3.4-4.8 Protein [Mass/volume] in Serum or Plasma 2024-05-14 14:27:22 6.7 g/dL F 5.7-8.2 Potassium [Moles/volume] in Serum or Plasma 2024-04-17 03:59:33 5.3 mEq/L F 3.5-5.5 GLOBULIN 2024-04-16 14:38:05 2.6 g/dL F 0.9-5.0 A/G RATIO 2024-04-16 14:38:05 1.7 Calc F 1.0-2.5 Lactate dehydrogenase [Enzymatic activity/volume] in Serum or Plasma 2024-04-16 14:37:15 416 U/L F 120.0-246.0 Bicarbonate [Moles/volume] in Serum or Plasma 2024-04-16 14:37:15 28 mEq/L F 20.0-31.0 Albumin [Mass/volume] in Serum or Plasma by Bromocresol green (BCG) dye binding method 2024-04-16 14:37:15 4.3 g/dL F 3.4-4.8 Protein [Mass/volume] in Serum or Plasma 2024-04-16 14:37:15 6.9 g/dL F 5.7-8.2 Potassium [Moles/volume] in Serum or Plasma 2024-03-20 07:29:35 4.3 mEq/L F 3.5-5.5 GLOBULIN 2024-03-20 04:23:35 2.8 g/dL F 0.9-5.0 A/G RATIO 2024-03-20 04:23:35 1.5 Calc F 1.0-2.5 Lactate dehydrogenase [Enzymatic activity/volume] in Serum or Plasma 2024-03-20 04:23:21 373 U/L F 120.0-246.0 Protein [Mass/volume] in Serum or Plasma 2024-03-20 04:23:21 6.9 g/dL F 5.7-8.2 Bicarbonate [Moles/volume] in Serum or Plasma 2024-03-20 04:23:21 33 mEq/L F 20.0-31.0 Albumin [Mass/volume] in Serum or Plasma by Bromocresol green (BCG) dye binding method 2024-03-20 04:23:21 4.1 g/dL F 3.4-4.8 Potassium [Moles/volume] in Serum or Plasma 2024-02-14 04:44:00 4.4 mEq/L F 3.5-5.5 GLOBULIN 2024-02-13 19:12:14 2.8 g/dL F 0.9-5.0 A/G RATIO 2024-02-13 19:12:14 1.6 Calc F 1.0-2.5 Lactate dehydrogenase [Enzymatic activity/volume] in Serum or Plasma 2024-02-13 19:11:17 327 U/L F 120.0-246.0 Bicarbonate [Moles/volume] in Serum or Plasma 2024-02-13 19:11:17 37 mEq/L F 20.0-31.0 Albumin [Mass/volume] in Serum or Plasma by Bromocresol green (BCG) dye binding method 2024-02-13 19:11:17 4.4 g/dL F 3.4-4.8 Protein [Mass/volume] in Serum or Plasma 2024-02-13 19:11:17 7.2 g/dL F 5.7-8.2 Potassium [Moles/volume] in Serum or Plasma 2024-01-21 18:23:07 4.4 mEq/L F 3.5-5.5 A/G RATIO 2024-01-21 14:29:13 1.6 Calc F 1.0-2.5 GLOBULIN 2024-01-21 14:29:13 2.7 g/dL F 0.9-5.0 Lactate dehydrogenase [Enzymatic activity/volume] in Serum or Plasma 2024-01-21 14:28:38 378 U/L F 120.0-246.0 Bicarbonate [Moles/volume] in Serum or Plasma 2024-01-21 14:28:38 36 mEq/L F 20.0-31.0 Albumin [Mass/volume] in Serum or Plasma by Bromocresol green (BCG) dye binding method 2024-01-21 14:28:38 4.4 g/dL F 3.4-4.8 Protein [Mass/volume] in Serum or Plasma 2024-01-21 14:28:38 7.1 g/dL F 5.7-8.2 A/G RATIO 2024-01-16 15:16:02 F Recollect - Shipping temp out of range GLOBULIN 2024-01-16 15:16:02 F Recollect - Shipping temp out of range Lactate dehydrogenase [Enzymatic activity/volume] in Serum or Plasma 2024-01-16 15:14:32 F Recollect - Shipping temp out of range Potassium [Moles/volume] in Serum or Plasma 2024-01-16 15:14:32 F Recollect - Shipping temp out of range Bicarbonate [Moles/volume] in Serum or Plasma 2024-01-16 15:14:32 F Recollect - Shipping temp out of range Protein [Mass/volume] in Serum or Plasma 2024-01-16 15:14:32 F Recollect - Shipping temp out of range Albumin [Mass/volume] in Serum or Plasma by Bromocresol green (BCG) dye binding method 2024-01-16 15:14:32 F Recollect - Shipping temp out of range Potassium [Moles/volume] in Serum or Plasma 2023-12-13 07:16:14 4.5 mEq/L F 3.5-5.5 A/G RATIO 2023-12-12 18:06:38 1.4 Calc F 1.0-2.5 GLOBULIN 2023-12-12 18:06:38 2.9 g/dL F 0.9-5.0 Albumin [Mass/volume] in Serum or Plasma by Bromocresol green (BCG) dye binding method 2023-12-12 18:05:35 4.2 g/dL F 3.4-4.8 Lactate dehydrogenase [Enzymatic activity/volume] in Serum or Plasma 2023-12-12 18:05:35 396 U/L F 120.0-246.0 Bicarbonate [Moles/volume] in Serum or Plasma 2023-12-12 18:05:35 33 mEq/L F 20.0-31.0 Protein [Mass/volume] in Serum or Plasma 2023-12-12 18:05:35 7.1 g/dL F 5.7-8.2 Potassium [Moles/volume] in Serum or Plasma 2023-11-22 03:40:24 4.8 mEq/L F 3.5-5.5 GLOBULIN 2023-11-21 16:31:39 2.8 g/dL F 0.9-5.0 A/G RATIO 2023-11-21 16:31:39 1.5 Calc F 1.0-2.5 Bicarbonate [Moles/volume] in Serum or Plasma 2023-11-21 16:31:26 34 mEq/L F 20.0-31.0 Albumin [Mass/volume] in Serum or Plasma by Bromocresol green (BCG) dye binding method 2023-11-21 16:31:26 4.2 g/dL F 3.4-4.8 Lactate dehydrogenase [Enzymatic activity/volume] in Serum or Plasma 2023-11-21 16:31:26 357 U/L F 120.0-246.0 Protein [Mass/volume] in Serum or Plasma 2023-11-21 16:31:26 7 g/dL F 5.7-8.2 A/G RATIO 2023-11-18 13:43:29 F Recollect - Shipping temp out of range GLOBULIN 2023-11-18 13:43:29 F Recollect - Shipping temp out of range Albumin [Mass/volume] in Serum or Plasma by Bromocresol green (BCG) dye binding method 2023-11-18 13:42:08 F Recollect - Shipping temp out of range Bicarbonate [Moles/volume] in Serum or Plasma 2023-11-18 13:42:08 F Recollect - Shipping temp out of range Potassium [Moles/volume] in Serum or Plasma 2023-11-18 13:42:08 F Recollect - Shipping temp out of range Lactate dehydrogenase [Enzymatic activity/volume] in Serum or Plasma 2023-11-18 13:42:08 F Recollect - Shipping temp out of range Protein [Mass/volume] in Serum or Plasma 2023-11-18 13:42:08 F Recollect - Shipping temp out of range Potassium [Moles/volume] in Serum or Plasma 2023-10-17 05:11:46 4.8 mEq/L F 3.5-5.5 GLOBULIN 2023-10-16 23:42:18 3.2 g/dL F 0.9-5.0 A/G RATIO 2023-10-16 23:42:18 1.3 Calc F 1.0-2.5 Lactate dehydrogenase [Enzymatic activity/volume] in Serum or Plasma 2023-10-16 23:41:33 355 U/L F 120.0-246.0 Protein [Mass/volume] in Serum or Plasma 2023-10-16 23:41:33 7.3 g/dL F 5.7-8.2 Bicarbonate [Moles/volume] in Serum or Plasma 2023-10-16 23:41:33 31 mEq/L F 20.0-31.0 Albumin [Mass/volume] in Serum or Plasma by Bromocresol green (BCG) dye binding method 2023-10-16 23:41:33 4.1 g/dL F 3.4-4.8 Potassium [Moles/volume] in Serum or Plasma 2023-09-11 18:33:00 4.7 mEq/L F 3.5-5.5 GLOBULIN 2023-09-11 14:50:33 3 g/dL F 0.9-5.0 A/G RATIO 2023-09-11 14:50:33 1.3 Calc F 1.0-2.5 Lactate dehydrogenase [Enzymatic activity/volume] in Serum or Plasma 2023-09-11 14:49:36 370 U/L F 120.0-246.0 Bicarbonate [Moles/volume] in Serum or Plasma 2023-09-11 14:49:36 33 mEq/L F 20.0-31.0 Albumin [Mass/volume] in Serum or Plasma by Bromocresol green (BCG) dye binding method 2023-09-11 14:49:36 4 g/dL F 3.4-4.8 Protein [Mass/volume] in Serum or Plasma 2023-09-11 14:49:36 7 g/dL F 5.7-8.2 Potassium [Moles/volume] in Serum or Plasma 2023-08-15 06:35:23 4.8 mEq/L F 3.5-5.5 GLOBULIN 2023-08-14 19:00:03 3 g/dL F 0.9-5.0 A/G RATIO 2023-08-14 19:00:03 1.2 Calc F 1.0-2.5 Bicarbonate [Moles/volume] in Serum or Plasma 2023-08-14 18:59:40 34 mEq/L F 20.0-31.0 Albumin [Mass/volume] in Serum or Plasma by Bromocresol green (BCG) dye binding method 2023-08-14 18:59:40 3.7 g/dL F 3.4-4.8 Protein [Mass/volume] in Serum or Plasma 2023-08-14 18:59:40 6.7 g/dL F 5.7-8.2 Lactate dehydrogenase [Enzymatic activity/volume] in Serum or Plasma 2023-08-14 18:59:40 312 U/L F 120.0-246.0 Potassium [Moles/volume] in Serum or Plasma 2023-07-18 06:53:32 4.1 mEq/L F 3.5-5.5 GLOBULIN 2023-07-17 22:22:10 2.9 g/dL F 0.9-5.0 A/G RATIO 2023-07-17 22:22:10 1.3 Calc F 1.0-2.5 Bicarbonate [Moles/volume] in Serum or Plasma 2023-07-17 22:21:52 34 mEq/L F 20.0-31.0 Albumin [Mass/volume] in Serum or Plasma by Bromocresol green (BCG) dye binding method 2023-07-17 22:21:52 3.8 g/dL F 3.4-4.8 Protein [Mass/volume] in Serum or Plasma 2023-07-17 22:21:52 6.7 g/dL F 5.7-8.2 Lactate dehydrogenase [Enzymatic activity/volume] in Serum or Plasma 2023-07-17 22:21:52 245 U/L F 120.0-246.0 Potassium [Moles/volume] in Serum or Plasma 2023-06-14 07:18:48 4.1 mEq/L F 3.5-5.5 Albumin [Mass/volume] in Serum or Plasma by Bromocresol green (BCG) dye binding method 2023-06-14 00:28:29 3.8 g/dL F 3.4-4.8 Bicarbonate [Moles/volume] in Serum or Plasma 2023-06-14 00:28:22 35 mEq/L F 20.0-31.0 Potassium [Moles/volume] in Serum or Plasma 2023-05-30 07:10:52 3.4 mEq/L F 3.5-5.5 Cobalamin (Vitamin B12) [Mass/volume] in Serum or Plasma 2023-05-30 02:40:02 700 pg/mL F 211.0-911.0 Folate [Mass/volume] in Serum or Plasma 2023-05-30 02:40:02 7.7 ng/mL F 5.5-16.0 VLDL-CHOL(CALC) 2023-05-29 18:51:29 16 mg/dL F 0.0-29.0 LDL-CHOLESTEROL 2023-05-29 18:51:29 71 mg/dL F 0.0-99.0 CHOL/HDL RATIO 2023-05-29 18:51:29 2.2 Calc F 3.3-5.0 Protein [Mass/volume] in Serum or Plasma 2023-05-29 18:51:22 79 mg/dL F 0.0-149.0 Bicarbonate [Moles/volume] in Serum or Plasma 2023-05-29 18:51:22 30 mEq/L F 20.0-31.0 Cholesterol [Mass/volume] in Serum or Plasma 2023-05-29 18:51:22 157 mg/dL F 0.0-199.0 Albumin [Mass/volume] in Serum or Plasma by Bromocresol green (BCG) dye binding method 2023-05-29 18:51:22 3.7 g/dL F 3.4-4.8 Cholesterol in HDL [Mass/volume] in Serum or Plasma 2023-05-29 18:51:22 70 mg/dL F 40.0-60.0 Encounters No encounter information to report Immunizations Ordered Immunization Name Filled Immunization Name Date Status Comments Refusal Reason TST-PPD intradermal 2024-05-27 11:52:00 Influenza, MDCK, trivalent, preservative 2024-03-18 12:08:00 Pneumococcal conjugate PCV20, polysaccharide [id number] conjugate, adjuvant, PF 2023-11-13 13:37:14 TST-PPD intradermal 2023-06-13 17:30:17 TST-PPD intradermal 2023-05-30 19:04:41 Influenza Vaccination 2023-05-10 06:00:00 Plan of Treatment Planned Activity Provider Planned Date Details Commen ts Diagnostic Test Pending CARLOS ENRIQUE WALSH 2024-07-18 06:00:00 Hemoglobin [Mass/volume] in Blood [code = 718-7] Diagnostic Test Pending CARLOS ENRIQUE WALSH 2023-09-01 05:00:00 Hemoglobin A1c/Hemoglobin.total in Blood [code = 4548-4] Diagnostic Test Pending [facility] 2023-07-03 15:02:36 25-Hydroxyvitamin D3+25-Hydroxyvitamin D2 [Mass/volume] in Serum or Plasma [code = 26666-6] Diagnostic Test Pending [facility] 2023-07-06 06:00:00 Creatinine [Mass/volume] in Serum or Plasma [code = 2160-0] Diagnostic Test Pending [facility] 2023-06-30 15:31:32 Aluminum [Mass/volume] in Serum or Plasma [code = 5574-9] Diagnostic Test Pending [facility] 2024-08-05 07:37:43 Ferritin [Mass/volume] in Serum or Plasma [code = 2276-4] Diagnostic Test Pending [facility] 2023-07-04 07:23:25 Parathyrin.intact [Mass/volume] in Serum or Plasma [code = 2731-8] Diagnostic Test Pending [facility] 2023-07-03 06:00:00 Albumin [Mass/volume] in Serum or Plasma by Bromocresol green (BCG) dye binding method [code = 67072-3] Diagnostic Test Pending [facility]FR[facility]IAIN 2023-06-20 19:28:51 Alanine aminotransferase [Enzymatic activity/volume] in Serum or Plasma [code = 1742-6] Diagnostic Test Pending [facility] 2024-07-13 16:35:18 In-Center Hemodialysis Treatment [code = PXX540] Diet Order [facility] June 13, 2023 Diet Calorie 30 kcal/kg Fluid Value 1000 mL/d Phosphorus Value 1000 mg/d Potassium Value 3500 mg/d Protein Value 1.2 gm/kg Sodium Value 2000 mg/d Calculated Weight 82 kg dietary_diet_modification Carb Controlle d;
[2024-08-27 14:30] LABS: Alanine Aminotransferase 18 U/L (6-50); Albumin Level 4.3 g/dL (3.5-5.1); Alkaline Phosphatase 91 U/L (38-126); Anion Gap 13 mmol/L (4-12); Aspartate Amino Transferase 26 U/L (17-59); Bilirubin,Total 0.7 mg/dL (0.2-1.3); Blood Urea Nitrogen 52 mg/dL (9-20); Carbon Dioxide 30 mmol/L (22-30); Chloride 93 mmol/L (98-107); Estimated CRCL calculation 14 ml/min; Estimated Glomerular Filt Rate 9; Glucose 133 mg/dL (65-110); Potassium 4.2 mmol/L (3.4-5.0); Sodium 136 mmol/L (137-145)
[2024-08-27 14:37] LABS: INR 1.1; Prothrombin Time 15.2 Seconds (11.1-14.7)
[2024-08-27 14:38] LABS: Partial Thromboplastin Time 39.7 Seconds (22.3-36.8)
[2024-08-27 14:43] LABS: Platelet Estimate Adequate (Adequate)
[2024-08-27 14:44] LABS: Anisocytosis 1+
[2024-08-27 14:45] LABS: Hypochromasia 1+; Schistocytes None Seen
--- NOTE | 2024-08-27 14:51 | ED_ITS ---
HPI - Weakness General Chief complaint: Weakness Stated complaint: gen weakness Time Seen by Provider: 08/27/24 14:08 Source: patient and old records reviewed Mode of arrival: EMS Limitations: no limitations History of Present Illness HPI Narrative: Patient is a 59-year-old male who presents the ED via EMS with report of missed dialysis. Patient has a complex past medical history with history of laryngeal cancer status post laryngectomy now with humidified tracheostomy, as well as ESRD on HD T//Fri. Patient recently had prolonged hospitalization here before being transferred to [facility] for permanent trach placement. Currently humidified trach dependent. Patient last received dialysis on Friday. Had been receiving dialysis at [facility] in [place], however they are no longer able to accommodate him with his new humidified trach. Nephrology attempted to get patient in to [facility], however they were unable to accommodate him until at least Friday. He was then sent here for further evaluation. Patient has no acute complaints. Related Data Home Medications ?Medication ?Instructions ?Recorded ?Confirmed ?Last Taken ?Type amlodipine 10 mg tablet 10 mg PO DAILY 10/09/20 08/07/24 05/10/22 09:00 History calcitriol 0.25 mcg capsule 0.25 mcg PO DAILY 10/09/20 08/07/24 05/10/22 09:00 History carvedilol 12.5 mg tablet 12.5 mg PO Q12H 10/09/20 08/07/24 05/10/22 09:00 History levothyroxine 112 mcg capsule 175 mcg PO QAM 10/09/20 08/07/24 05/10/22 09:00 History losartan 100 mg tablet 100 mg PO DAILY 10/09/20 08/07/24 05/10/22 09:00 History pioglitazone 30 mg tablet 30 mg PO DAILY 10/09/20 08/07/24 05/10/22 09:00 History glimepiride 2 mg tablet 2 mg PO DAILY 05/08/23 08/07/24 Unknown History pravastatin 40 mg tablet 40 mg PO DAILY 05/08/23 08/07/24 Unknown History sevelamer carbonate 800 mg tablet 1,600 mg PO TIDWMEAL 08/07/24 08/07/24 Unknown History Allergies Allergy/AdvReac Type Severity Reaction Status Date / Time No Known Allergies Allergy Unknown Verified 03/06/25 10:41 Review of Systems 2 Review of Systems: All systems reviewed & are unremarkable except as noted in HPI. All systems reviewed & are unremarkable except as noted in HPI and below PMFSH Past Medical History Medical History Laryngeal cancer (2016) Status post chemoradiation. Right-sided heart failure Chronic respiratory failure with hypoxia, on home oxygen therapy Type 2 diabetes mellitus End-stage renal disease on hemodialysis Hyperlipidemia Congestive heart failure Renal osteodystrophy Erythropoietin deficiency anemia Hypothyroidism Hypertension Surgical History Surgical History History of percutaneous endoscopic gastrostomy History of tracheostomy Amputation of right great toe History of throat surgery Family History Family History Mother Family history of diabetes mellitus in first degree relative Diabetes mellitus Hypertension Heart disease Cerebrovascular accident Father Alcoholism Sibling Alcoholism Diabetes mellitus Hypertension Heart disease Cerebrovascular accident Other Family history of lung cancer Social History Social History Social History: Surrogate medical decision maker: Dasha Saxena, spouse. Code status: Full code. Smoking packs per day: 2 Smoking cigarettes per day: 40.0 Years smoked: 35 Smoking pack-years: 70.00 Smoking status: Former smoker Second hand tobacco smoke exposure: No Alcohol intake: never Substance use: never Substance use type: does not use Do You Feel Safe in your Home?: Yes Lack of Transportation: No Lack of Food: Never True Current Housing: I Have Housing Concerned About Future Housing: No Difficulty Paying Gas/Electric Bills: No Difficulty Paying for Meds: No Currently Unemployed: No Education: High School Diploma/GED Difficulty w/ Childcare or Family Care: No Additional living arrangements comments: Lives with spouse in [place]. They have 1 child. 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 care concerns: No Exam 2 Narrative: GENERAL: Chronically ill-appearing, obese with BMI of 35.0, non-toxic, in no acute distress. HEAD: Normocephalic, atraumatic. NECK: Tracheostomy present w/o surrounding secretions, inflammation, erythema. RESPIRATORY: Airway patent, respirations nonlabored. Clear to auscultation bilaterally, no rales, rhonchi, wheezing. CARDIOVASCULAR: Regular rate and rhythm without murmurs, rubs, or gallops. MUSCULOSKELETAL: Moves all extremities. No gross deformities. SKIN: Warm, dry, normal color. NEURO: A&O X3. Speech clear. PSYCHIATRIC: Appropriate mood and affect. Normal interaction. Course Vital Signs Vital signs: Vital Signs Temperature 98.2 F 08/27/24 13:57 Pulse Rate 79 08/27/24 13:57 Respiratory Rate 15 08/27/24 13:57 Blood Pressure 124/71 08/27/24 13:57 Pulse Oximetry 94 08/27/24 13:57 Oxygen Delivery Trach Collar 08/27/24 13:57 Oxygen Flow Rate 3 08/27/24 13:57 Temperature 97.8 F 08/27/24 17:50 Pulse Rate 86 08/27/24 17:50 Respiratory Rate 18 08/27/24 17:50 Blood Pressure 117/66 08/27/24 17:50 Pulse Oximetry 95 08/27/24 17:50 Oxygen Delivery Trach Collar 08/27/24 16:19 Oxygen Flow Rate 3 08/27/24 16:19 MDM - Weakness MDM Narrative Medical decision making narrative: Patient presented to ED with concern for needing emergent dialysis. Patient is medically complex with tracheostomy, laryngeal cancer status post laryngectomy, hemodialysis. Last received hemodialysis on Friday. Patient resting comfortably upon my evaluation. Vital signs are stable. Laboratory studies are fairly reassuring. Stable electrolytes and potassium. Creatinine is near baseline. Patient mentating at his baseline. No significant peripheral edema. No respiratory compromise. No indication for emergent dialysis at this time, but patient will need new [facility] facility to accommodate new trach needs. Discussed case with care coordination. See notes. [facility] will be able to accommodate patient, however not until at least Friday. Patient will be admitted here to receive dialysis over the weekend and for case management to help with future arrangements. Discussed case with Dr. Galaviz, nephrology, will consult. Discussed case with Simi JARVIS hospitalist, accepted patient for admission. Patient is agreeable. Medical Records Attestation: I reviewed the patient's medical records. Lab Data Attestation: I reviewed the patient's lab results. 08/27/24 14:15 08/27/24 14:15 Labs: Lab Results 08/27/24 Range/Units 14:15 WBC 4.0 L (4.5-10.0) K/mm3 RBC 3.35 L (4.6-6.20) M/mm3 Hgb 11.6 L (14.0-18.0) g/dL Hct 37.9 L (42.0-52.0) % MCV 113.1 H (80-100) fl MCH 34.6 H (26-34) pg MCHC 30.6 L (32-36) g/dl RDW 14.9 H (11.5-14.5) % Plt Count 125 L (150-375) k/mm3 MPV 10.9 H (7.4-10.4) fl Immature Gran % (Auto) 0.5 (0-0.5) % Neut % (Auto) 66.7 (45.5-73.1) % Lymph % (Auto) 12.7 L (18.3-44.2) % [place] % (Auto) 14.4 H (2.6-8.5) % Eos % (Auto) 4.0 (0-4.4) % Baso % (Auto) 1.7 H (0.2-1.2) % Lymph # (Auto) 0.51 L (0.9-3.2) K/mm3 [place] # (Auto) 0.6 (0.1-0.6) K/mm3 Eos # (Auto) 0.2 (0-0.3) K/mm3 Baso # (Auto) 0.1 (0.0-0.1) K/mm3 Abs Immat Gran (auto) 0.02 (0.00-0.031) K/mm3 Absolute Neuts (auto) 2.7 (1.3-6.7) K/mm3 Absolute Nucleated RBC 0.000 (0.0-0.012) K/mm3 Band Neutrophils % Not Reportable Nucleated RBC % 0.0 (0.0-0.2) % Platelet Estimate Adequate (Adequate) % Immature Plt Fraction 6.5 (0.9-11.2) % Hypochromasia 1+ Anisocytosis 1+ Schistocytes None seen PT 15.2 H (11.1-14.7) Seconds INR 1.1 APTT 39.7 H (22.3-36.8) Seconds Sodium 136 L (137-145) mmol/L Potassium 4.2 (3.4-5.0) mmol/L Chloride 93 L (98-107) mmol/L Carbon Dioxide 30 (22-30) mmol/L Anion Gap 13 H (4-12) mmol/L BUN 52 H D (9-20) mg/dL Creatinine 6.53 H (0.7-1.3) mg/dL Estim Creat Clear Calc 14 ml/min Estimated GFR 9 L (59 - ) Glucose 133 H (65-110) mg/dL Calcium 9.0 (8.4-10.2) mg/dL Total Bilirubin 0.7 (0.2-1.3) mg/dL AST 26 (17-59) U/L ALT 18 (6-50) U/L Alkaline Phosphatase 91 (38-126) U/L Total Protein 7.0 (6.3-8.2) g/dL Albumin 4.3 (3.5-5.1) g/dL Discharge Plan Discharge Clinical Impression: ESRD on hemodialysis, Tracheostomy dependent Patient Disposition: Still a Patient Condition: Stable
--- NOTE | 2024-08-27 15:50 | PCCCNOTE ---
1545: Called to the ED for assisting pt find a dialysis center that would take him beings he is trach with humidity dependent. Dr. Chang office was attempting to find a place for the patient to get dialysis this week, but were unable at the time. Pt was getting dialysis at [facility] in [place], but with the trach humidity they are unable to. [facility] is trach certified, but unable to get ahold of any one at this time. ED notified.
--- NOTE | 2024-08-27 17:04 | ADMGEN ---
This patient, Bubba Saxena, was admitted to Medical Room 242-01. Patient/family oriented to hospital policies and general routines including ID bracelet, bed and alarms, visiting hours, pain management, procedures, bathroom and other care routines, personal items, smoking policy, room service/diet, and visiting hours. Information on how to activate the Rapid Response Team has been discussed. Patient/Family are encouraged to report perceived risks to care and to ask questions if they do not understand what they are told or what they should do.
[2024-08-27 18:13] LABS: Glucose Point of Care 91 mg/dl (65-105)
[2024-08-27 18:48] LABS: MRSA (PCR) NOT DETECTED (NOT DETECTE)
--- NOTE | 2024-08-27 18:50 | P.HP_ITS ---
H&P: HPI History of Present Illness Date/Time: 08/27/24 18:50 Chief Complaint: Needs dialysis. Narrative: This is a [id number] with multiple medical problems including end-stage renal disease on hemodialysis, laryngeal cancer status post partial laryngectomy, trach dependent, obesity hypoventilation syndrome, obstructive sleep apnea, right-sided heart failure, type 2 diabetes mellitus, hypertension, hyperli pidemia, and hypothyroidism who presented to the emergency department via EMS from home in need of dialysis. He was recently discharged from [facility] following cuff tracheostomy and he has been on oxygen since that time. He has missed his last 2 dialysis sessions as [facility] in [place] is not trach certified and there have been difficulties getting him to a different dialysis center. He has become increasingly short of breath and is feeling weak. After speaking with his environmental scientist in [place], they recommended he come to this emergency department. He denies fever, chills, sweats, chest pain, cough, abdominal pain, nausea, vomiting, diarrhea, and dysuria. He has not noticed a significant change in his chronic lower extremity edema. In the ED: Vital signs were stable on arrival. Labs are significant for WBC count of 4.0, hemoglobin 11.6, MCV 113.1, platelet 125, sodium 136, potassium 4.2, calcium 9.0, BUN 52, creatinine 6.53, glucose 133. ED provider spoke with on-call environmental scientist and he will receive dialysis tomorrow. He is being admitted in this setting. Review of Systems Review of Systems: 12 systems were reviewed and are negativ e except for as per HPI. [facility] Past Medical History Medical History (Updated 08/27/24 @ 23:29 by Simi Swanson PA-C) Laryngeal cancer (2016) status post partial laryngectomy and chemoradiation Right-sided heart failure Chronic respiratory failure with hypoxia, on home oxygen therapy Type 2 diabetes mellitus End-stage renal disease on hemodialysis Hyperlipidemia Congestive heart failure Renal osteodystrophy Erythropoietin deficiency anemia Hypothyroidism Hypertension Surgical History Surgical History (Updated 08/27/24 @ 23:22 by Simi Swanson PA-C) History of partial laryngectomy History of percutaneous endoscopic gastrostomy History of tracheostomy Amputation of right great toe Family History Family History Mother Family history of diabetes mellitus in first degree relative Diabetes mellitus Hypertension Heart disease Cerebrovascular accident Father Alcoholism Sibling Alcoholism Diabetes mellitus Hypertension Heart disease Cerebrovascular accident Other Family history of lung cancer Social History Social History Social History: Surrogate medical decision maker: Dasha Saxena, spouse. Code status: Full code. Smoking packs per day: 2 Smoking cigarettes per day: 40.0 Years smoked: 35 Smoking pack-years: 70.00 Smoking status: Former smoker Second hand tobacco smoke exposure: No Alcohol intake: never Substance use: never Substance use type: does not use Do You Feel Safe in your Home?: Yes Lack of Transportation: No Lack of Food: Never True Current Housing: I Have Housing Concerned About Future Housing: No Difficulty Paying Gas/Electric Bills: No Difficulty Paying for Meds: No Currently Unemployed: No Education: High School Diploma/GED Difficulty w/ Childcare or Family Care: No Additional living arrangements comments: Lives with spouse in [place]. They have 1 child. 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 care concerns: No Meds Home Medications and Allergies Home Medications ?Medication ?Instructions ?Recorded ?Confirmed ?Type amlodipine 10 mg tablet 10 mg PO DAILY 10/09/20 08/27/24 History carvedilol 12.5 mg tablet 12.5 mg PO Q12H 10/09/20 08/27/24 History levothyroxine 112 mcg capsule 175 mcg PO QAM 10/09/20 08/27/24 History losartan 100 mg tablet 100 mg PO DAILY 10/09/20 08/27/24 History pioglitazone 30 mg tablet 30 mg PO DAILY 10/09/20 08/27/24 History pravastatin 40 mg tablet 40 mg PO DAILY 05/08/23 08/27/24 History sevelamer carbonate 800 mg tablet 1,600 mg PO TIDWMEAL 08/07/24 08/27/24 History Allergies Allergy/AdvReac Type Severity Reaction Status Date / Time No Known Allergies Allergy Unknown Verified 08/05/24 10:41 Vital Signs Vital Signs - 24 hr 08/27/24 13:57 08/27/24 14:14 08/27/24 16:18 Temperature 98.2 F Pulse Rate 79 77 86 Respiratory Rate 15 12 Blood Pressure 124/71 126/73 Pulse Oximetry 94 95 Oxygen Delivery Trach Collar Oxygen Flow Rate 3 08/27/24 16:19 08/27/24 17:50 Temperature 97.8 F Pulse Rate 86 Respiratory Rate 18 Blood Pressure 117/66 Pulse Oximetry 95 95 Oxygen Delivery Trach Collar Oxygen Flow Rate 3 Exam Narrative: General: Chronically ill male appearing older than his stated age the semi- [place] position in bed. HEENT: PERRL, EOMI. Sclera anicteric. Tacky mucous membranes. Neck: Supple. Humidified oxygen mass over tracheostomy. Respiratory: Respirations are nonlabored. Scattered crackles heard at the bases. Cardiovascular: Regular rate and rhythm with S1-S2. No murmur, rub, or gallop. Gastrointestinal: Abdomen is obese and nontender with positive bowel sounds. Skin: Warm and dry. Extremities: No cyanosis or clubbing. 3+ pitting edema of the lower extremities and some mild edema of the arms. Neurological: Alert. Cranial nerves 2-12 are grossly intact. No gross focal deficits to casual conversation. Psychiatric: Cooperative with appropriate mood and affect. H&P: Results Labs Labs: Short CBC 08/27/24 Range/Units 14:15 WBC 4.0 L (4.5-10.0) K/mm3 Hgb 11.6 L (14.0-18.0) g/dL Hct 37.9 L (42.0-52.0) % Plt Count 125 L (150-375) k/mm3 BMP 08/27/24 14:15 Sodium 136 L Potassium 4.2 Chloride 93 L Carbon Dioxide 30 BUN 52 H D Creatinine 6.53 H Glucose 133 H Calcium 9.0 Liver Function 08/27/24 Range/Units 14:15 Total Bilirubin 0.7 (0.2-1.3) mg/dL AST 26 (17-59) U/L ALT 18 (6-50) U/L Alkaline Phosphatase 91 (38-126) U/L Albumin 4.3 (3.5-5.1) g/dL Assessment and Plan Assessment and plan (1) End-stage renal disease on hemodialysis: Code(s): N18.6 - End stage renal disease; Z99.2 - Dependence on renal dialysis Status: Acute (2) Pancytopenia: Code(s): D61.818 - Other pancytopenia Status: Acute (3) Right-sided heart failure: Code(s): I50.810 - Right heart failure, unspecified Status: Acute (4) Hypertension: Code(s): I10 - Essential (primary) hypertension Status: Chronic (5) 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 - Tracheostomy status Status: Acute (6) Type 2 diabetes mellitus: Code(s): E11.9 - Type 2 diabetes mellitus without complications Status: Chronic (7) Hypothyroidism: Code(s): E03.9 - Hypothyroidism, unspecified Status: Acute Plan The patient presented to the emergency department for evaluation of weakness and shortness of breath and in need of dialysis as detailed in HPI. Labs, imaging, EKG, and all reports were personally reviewed. He does not have any significant electrolyte abnormalities and plans are for dialysis tomorrow. Care coordination has been consulted as he will need a new dialysis clinic which is trach certified. He does have some crackles on exam and has significant lower extremity edema and he may need a couple of days of dialysis before discharge. Nephrology has been consulted and their input is appreciated. He has pancytopenia which is stable on review of previous labs and can be monitored/worked up as an outpatient. Initiate sliding scale insulin, Accu- Cheks, and hypoglycemic protocol. Blood pressures were reviewed and they are sta ble. His home medications will be reviewed and resumed as appropriate. Findings and treatment plan were discussed with the patient. Questions were solicited and answered to satisfaction. The patient's medical management will be taken over by the hospitalist team in a.m. Quality VTE Prophylaxis VTE prophylaxis: mechanical ordered If No VTE Prophylaxis Answer both mechanical and pharmacologic: Reason no pharmacologic proph: medical contraindication thrombocytopenia The patient has been admitted under observation status. Hospitalist MIPS Advance Care Plan I have confirmed that the patient's Advanced Care Plan is present, code status is documented, or surrogate decision maker is listed in patient medical record.: Yes Medication Reconciliation I have utilized all available resources to obtain, update and review the patients current medications (includes all prescriptions, OTC, herbals, cannabis, and nutritional supplements).: Yes
[2024-08-28] VITALS (34 sets, daily range): BP systolic 70–94; BP diastolic 40–61; PULSE 54–70; RESP 12–20; TEMP 36.3–37; O2SAT 90–100
[2024-08-28 00:09] LABS: Glucose Point of Care 115 mg/dl (65-105)
[2024-08-28] MEDS: carvediloL 12.5 MG TABLET PO ×2 (00:20→08:45)
[2024-08-28 05:29] LABS: Hematocrit 33.1 % (42.0-52.0); Mean Corpuscular HGB Conc 30.2 g/dl (32-36); Mean Corpuscular Hemoglobin 34.2 pg (26-34); Mean Corpuscular Volume 113.4 fl (80-100); Mean Platelet Volume 11.5 fl (7.4-10.4); Platelet Count Result 120 k/mm3 (150-375); Red Blood Count 2.92 M/mm3 (4.6-6.20); Red Cell Distribution Width 14.6 % (11.5-14.5); White Blood Count 4.1 K/mm3 (4.5-10.0)
[2024-08-28 05:41] LABS: Anion Gap 13 mmol/L (4-12); Blood Urea Nitrogen 52 mg/dL (9-20); Calcium 8.7 mg/dL (8.4-10.2); Carbon Dioxide 30 mmol/L (22-30); Chloride 93 mmol/L (98-107); Estimated CRCL calculation 13 ml/min; Estimated Glomerular Filt Rate 8; Glucose 81 mg/dL (65-110); Magnesium 2.5 mg/dL (1.6-2.3); Phosphorus 6.5 mg/dL (2.5-4.5); Potassium 4.4 mmol/L (3.4-5.0); Sodium 136 mmol/L (137-145)
[2024-08-28 06:09] LABS: Hepatitis B Surface Antigen Negative (Negative)
[2024-08-28 06:26] LABS: Hepatitis B Surface Anti Res Negative
[2024-08-28 08:19] LABS: Glucose Point of Care 75 mg/dl (65-105)
[2024-08-28] MEDS: SEVELAMER CARBONATE 800 MG TABLET 1600 MG PO ×2 (08:41→17:09)
[2024-08-28] MEDS: PRAVASTATIN SODIUM 20 MG TABLET 40 MG PO (08:44)
[2024-08-28] MEDS: PIOGLITAZONE HCL 30 MG TABLET PO (08:45)
[2024-08-28] MEDS: LOSARTAN POTASSIUM 100 MG TABLET PO (08:45)
[2024-08-28] MEDS: amLODIPine BESYLATE 10 MG TABLET PO (08:45)
[2024-08-28] MEDS: ALBUMIN HUMAN 25% 12.5 GM/50ML 50 ML IVPB ×4 (09:46→12:26)
--- NOTE | 2024-08-28 09:52 | P.PNIM_ITS ---
Progress Note: A&P Assessment and Plan (1) End-stage renal disease on hemodialysis: Code(s): N18.6 - End stage renal disease; Z99.2 - Dependence on renal dialysis Status: Acute Assessment and Plan: * Patient has missed two sessions of dialysis due to dialysis center in his town not being certified to take ventilators, will need care coordination to work on finding a dialysis center that will be able to provide treatments for patient. * Hemodialysis completed today, patient tolerated well. * Nephrology consulted, appreciated recommendations. (2) Pancytopenia: Code(s): D61.818 - Other pancytopenia Status: Acute Assessment and Plan: * WBC 4.1, RBC 2.92, & platelets 120. * Trend CBC's. (3) Right-sided heart failure: Code(s): I50.810 - Right heart failure, unspecified Status: Acute Assessment and Plan: * Coreg 12.5 mg PO q 12. * Patient is on hemodialysis. (4) Hypertension: Code(s): I10 - Essential (primary) hypertension Status: Chronic Assessment and Plan: * Blood pressure 90/60. * Monitor blood pressure * Hold Amlodipine and Losartan. * Continue Coreg 12.5 mg PO q 12. (5) 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 - Tracheostomy status Status: Acute Assessment and Plan: * Tracheostomy * Laryngeal cancer s/p partial laryngectomy. (6) Type 2 diabetes mellitus: Code(s): E11.9 - Type 2 diabetes mellitus without complications Status: Chronic Assessment and Plan: * Hypoglycemic protocol. * SSI * Accuchecks * Diabetic consistent carb diet. (7) Hypothyroidism: Code(s): E03.9 - Hypothyroidism, unspecified Status: Acute Assessment and Plan: * Levothyroxine 175 mcg PO daily. (8) Weakness: Code(s): R53.1 - Weakness Status: Acute Assessment and Plan: * PT/OT Subjective Date/time seen: 08/28/24 09:52 Interval history: Patient sitting up in bed. Patient denies chest pain, palpitations, headache, dizziness, nausea, or vomiting. Patient reports he has not been able to walk since he was at [facility] earlier this month. Will order PT/OT. Patient has missed two sessions of dialysis due to dialysis center in his town not being certified to take ventilators, will need care coordination to work on finding a dialysis center that will be able to provide treatments for patient. Review of Systems Review of Systems: All systems reviewed & are unremarkable except as noted in HPI and below Exam Const: General: comfortable and no acute distress Neck: Other: Humidified oxygen mask over tracheostomy. Resp: Effort & Inspection: normal respiratory effort Auscultation: crackles bilateral at the base Cardio: Rate: regular rate Rhythm: regular rhythm GI: GI Palp: Yes Soft to palpation Auscultation: normal bowel sounds Extrem: General: pedal edema bilaterally 3+ Psych: Mental Status: mental status grossly normal Affect: normal affect Objective Data Vital Signs Vital Signs: Vital Signs - 24 hr 08/27/24 13:57 08/27/24 14:14 08/27/24 16:18 Temperature 98.2 F Pulse Rate 79 77 86 Respiratory Rate 15 12 Blood Pressure 124/71 126/73 Pulse Oximetry 94 95 Oxygen Delivery Trach Collar Oxygen Flow Rate 3 Fraction of Inspired Oxygen 08/27/24 16:19 08/27/24 17:50 08/27/24 19:47 Temperature 97.8 F 97.2 F L Pulse Rate 86 85 Respiratory Rate 18 12 Blood Pressure 117/66 126/60 Pulse Oximetry 95 95 97 Oxygen Delivery Trach Collar Oxygen Flow Rate 3 Fraction of Inspired Oxygen 08/27/24 20:00 08/27/24 20:45 08/28/24 00:20 Temperature Pulse Rate 85 70 Respiratory Rate 12 Blood Pressure Pulse Oximetry 97 97 Oxygen Delivery High Flow Therapy with Tr High Flow Therapy with Tr Oxygen Flow Rate 5 40 Fraction of Inspired Oxygen 80 80 08/28/24 05:27 08/28/24 07:25 08/28/24 08:45 Temperature 97.6 F Pulse Rate 69 69 Respiratory Rate 12 Blood Pressure 80/40 L 94/60 L Pulse Oximetry 94 Oxygen Delivery Oxygen Flow Rate Fraction of Inspired Oxygen 08/28/24 09:15 Temperature Pulse Rate Respiratory Rate Blood Pressure Pulse Oximetry 90 Oxygen Delivery High Flow Therapy with Tr Oxygen Flow Rate 55 Fraction of Inspired Oxygen 90 Intake/Output Intake/Output: Intake & Output 08/25/24 08/26/24 08/27/24 08/28/24 23:59 23:59 23:59 23:59 Intake Total 240 0 Output Total 0 Balance 240 0 Meds/Results Medications: Active Medications Generic Name Dose Route Start Last Admin Trade Name Freq PRN Reason Stop Dose Admin Acetaminophen 650 mg 08/27/24 15:58 Acetaminophen 325 Mg Tablet PO Q4H PRN Mild Pain (1-3) or Fever Amlodipine Besylate 10 mg 08/28/24 09:00 08/28/24 08:45 Amlodipine Besylate 10 Mg Tablet PO 10 mg DAILY ISELA Administration Carvedilol 12.5 mg 08/27/24 23:35 08/28/24 08:45 Carvedilol 12.5 Mg Tablet PO 12.5 mg Q12HR ISELA Administration Dextrose 12.5 gm 08/27/24 23:31 Dextrose 50% 25 Gm/50 Ml Syringe IV PUSH PRN PRN Hypoglycemia Protocol Epoetin Shawn-epbx 4,000 units 08/28/24 18:42 Epoetin Shawn-Epbx 4,000 Units/Ml Vial IV PUSH 08/28/24 18:43 ONCE ONE Glucagon 1 mg 08/27/24 23:31 Glucagon For Inj 1 Mg Vial IM PRN PRN Hypoglycemia Protocol Glucose 15 gm 08/27/24 23:31 Glucose Oral Gel 15 Gm Of Glucse In 37.5 Gm Tube PO PRN PRN Hypoglycemia Protocol Dextrose 1,000 mls @ 100 mls/hr 08/27/24 23:31 Dextrose 5% 1,000 Ml IVPB PRN PRN Hypoglycemia Protocol Albumin Human 50 mls @ 999 mls/hr 08/28/24 01:42 08/28/24 09:46 Albutein IVPB 09/27/24 01:41 999 mls/hr Q10M PRN Administration HYPOTENSION Insulin Aspart 3 - 6 units 08/28/24 08:00 08/28/24 08:42 Insulin Aspart (*Bkc) 100 Units/Ml SUB-Q Not Given TIDWM [facility] Protocol Insulin Aspart 1 - 3 units 08/28/24 21:00 Insulin Aspart (*Bkc) 100 Units/Ml SUB-Q HS [facility] Protocol Levothyroxine Sodium 75 mcg 08/28/24 06:30 Levothyroxine Sodium 75 Mcg Tablet PO DAILY@0630 [facility] Levothyroxine Sodium 100 mcg 08/28/24 06:30 Levothyroxine Sodium 100 Mcg Tablet PO DAILY@0630 [facility] Losartan Potassium 100 mg 08/28/24 09:00 08/28/24 08:45 Losartan Potassium 100 Mg Tablet PO 100 mg DAILY ISELA Administration Pioglitazone HCl 30 mg 08/28/24 09:00 08/28/24 08:45 Pioglitazone Hcl 30 Mg Tablet PO 30 mg DAILY ISELA Administration Pravastatin Sodium 40 mg 08/28/24 09:00 08/28/24 08:44 Pravastatin Sodium 20 Mg Tablet PO 40 mg DAILY ISELA Administration Sevelamer Carbonate 1,600 mg 08/28/24 08:00 08/28/24 08:41 Sevelamer Carbonate 800 Mg Tablet PO 1,600 mg TIDWM ISELA Administration Radiology Results: ITS Impressions Chest X-Ray 08/28/24 07:26 IMPRESSION: 1. Airspace opacities in right lower lung zone and left mid and lower lung zones with worsening on the left, consistent with atelectasis versus pneumonia. 2. Small pleural effusions. 3. Cardiomegaly. Labs Labs: Laboratory Results - last 24 hr 08/27/24 08/27/24 08/27/24 14:15 17:26 18:11 WBC 4.0 L RBC 3.35 L Hgb 11.6 L Hct 37.9 L MCV 113.1 H MCH 34.6 H MCHC 30.6 L RDW 14.9 H Plt Count 125 L MPV 10.9 H Immature Gran % (Auto) 0.5 Neut % (Auto) 66.7 Lymph % (Auto) 12.7 L Troup % (Auto) 14.4 H Eos % (Auto) 4.0 Baso % (Auto) 1.7 H Lymph # (Auto) 0.51 L [place] # (Auto) 0.6 Eos # (Auto) 0.2 Baso # (Auto) 0.1 Abs Immat Gran (auto) 0.02 Absolute Neuts (auto) 2.7 Absolute Nucleated RBC 0.000 Band Neutrophils % Not Reportable Nucleated RBC % 0.0 Platelet Estimate Adequate % Immature Plt Fraction 6.5 Hypochromasia 1+ Anisocytosis 1+ Schistocytes None seen PT 15.2 H INR 1.1 APTT 39.7 H Sodium 136 L Potassium 4.2 Chloride 93 L Carbon Dioxide 30 Anion Gap 13 H BUN 52 H D Creatinine 6.53 H Estim Creat Clear Calc 14 Estimated GFR 9 L Glucose 133 H POC Capillary Glucose 91 Calcium 9.0 Phosphorus Magnesium Total Bilirubin 0.7 AST 26 ALT 18 Alkaline Phosphatase 91 Total Protein 7.0 Albumin 4.3 Nasal MRSA (PCR) Not detected Hep Bs Antigen Hep Bs Antibody 08/28/24 08/28/24 08/28/24 00:04 05:02 08:16 WBC 4.1 L RBC 2.92 L Hgb 10.0 L Hct 33.1 L MCV 113.4 H MCH 34.2 H MCHC 30.2 L RDW 14.6 H Plt Count 120 L MPV 11.5 H Immature Gran % (Auto) Neut % (Auto) Lymph % (Auto) [place] % (Auto) Eos % (Auto) Baso % (Auto) Lymph # (Auto) [place] # (Auto) Eos # (Auto) Baso # (Auto) Abs Immat Gran (auto) Absolute Neuts (auto) Absolute Nucleated RBC Band Neutrophils % Nucleated RBC % Platelet Estimate % Immature Plt Fraction 7.0 Hypochromasia Anisocytosis Schistocytes PT INR APTT Sodium 136 L Potassium 4.4 Chloride 93 L Carbon Dioxide 30 Anion Gap 13 H BUN 52 H Creatinine 7.08 H Estim Creat Clear Calc 13 Estimated GFR 8 L Glucose 81 POC Capillary Glucose 115 H 75 Calcium 8.7 Phosphorus 6.5 H Magnesium 2.5 H Total Bilirubin AST ALT Alkaline Phosphatase Total Protein Albumin Nasal MRSA (PCR) Hep Bs Antigen Negative Hep Bs Antibody Negative Quality VTE Prophylaxis VTE prophylaxis: mechanical ordered
--- NOTE | 2024-08-28 10:30 | P.CONNP_ITS ---
Assessment and Plan Assessment and plan (1) End stage renal disease: Code(s): N18.6 - End stage renal disease Status: Chronic Assessment and Plan: * HD today * continue Friday//Friday dialysis schedule while hospitalized * follow electrolytes, volume status, and clearance * care coordination attempting to arrange for outptient dialysis given this tracheostomy/trach collar (2) Chronic respiratory failure: Code(s): J96.10 - Chronic respiratory failure, unspecified whether with hypoxia or hypercapnia Status: Chronic Assessment and Plan: * due to laryngeal cancer s/p, partial laryngectomy, obesity hypoventilation syndrome, and obstructive sleep apnea * currently tracheostomy dependent * on high flow oxygen therapy via trach collar * respiratory therapy following (3) Hypotension: Code(s): I95.9 - Hypotension, unspecified Status: Acute Assessment and Plan: * as noted since this morning * worsened by administration scheduled BP medication today as wel * appears asymptomatic * BP medications on hold now * etiology?? * normotensive on admission * follow trend of hemodynamics (4) Volume overload: Code(s): E87.70 - Fluid overload, unspecified Status: Chronic Assessment and Plan: * as noted by physical exam and imaging * unfortunately, fluid removal/ultrafiltration limited by his hypotension * consider DUF but his hemodynamics will be the limiting factor... * follow volume status closely (5) Hypertension: Code(s): I10 - Essential (primary) hypertension Status: Chronic Assessment and Plan: * BP medications placed on hold due to hypotension * follow trend of hemodynamics (6) Anemia: Code(s): D64.9 - Anemia, unspecified Status: Chronic Assessment and Plan: * at goal for ESRD * Epogen with HD * follow trend of H/H (7) Type 2 diabetes mellitus: Code(s): E11.9 - Type 2 diabetes mellitus without complications Status: Chronic Assessment and Plan: * follow accu-cheks * glycemic control per hospitalist I will continue to follow the patient with you while he remains hospitalized and make further recommendations as deemed necessary. Thank you for allowing me to participate in the care of this patient. L History of Present Illness Reason for Consult Consult date: 08/28/24 Reason for consult: end stage renal disease Chief Complaint Chief complaint: ESRD ON HD,TRACH DEPENDENT History of Present Illness Narrative: The patient is a 59-year-old male with a past medical history as outlined below who presented to [facility] Emergency Room with from home with the concerns that he needs dialysis. The patient was recently discharged from [facility] cuffed tracheostomy tube placement by ENT surgical services there (he was transfer from [facility] to [facility] specifically for this purpose as ENT was unavailable here at [facility] during his hospital stay). Prior to discharge, his oxygen was weaned to trach collar with humidified oxygen per ENT recommendations. Unfortunately, his outpatient dialysis unit ([facility]) is not certified to take care of patient is with trach collars and there has been some difficulty setting him up with outpatient dialysis although it is unclear why he was discharged from [facility] without a definitive plan in place. He apparently missed his dialysis treatment on due to this issue and his family reported that he had been having some worsening shortness of breath in association with generalized weakness. His outpatient experimental electronics developer recommended him coming to the emergency room for further assessment given his missed dialysis treatment and the symptoms. Other than his mild shortness of breath and weakness, he had no other acute complaints with regard to fevers, chills, diaphoresis, chest pain, abdominal pain, nausea, vomiting, or diarrhea. Workup and evaluation emergency room demonstrated the patient be hemodynamically stable and in no acute distress. Routine blood test demonstrated white blood count of 4.0, hemoglobin 11.6, platelet count of 125, and chemistry labs consistent with his known history of end-stage renal disease without any critical electrolyte abnormalities. Given the fact that he does not have any outpatient dialysis arranged for tomorrow as well as the fact that he does not actually have a outpatient dialysis unit to go to for chronic dialysis given his issues related to his trach collar, he was admitted to the hospital for dialysis as well as care coordination to facilitate/ finalize outpatient dialysis arrangements. Since his admission, he has had no acute issues or problems although he was noted be somewhat hypotensive early this morning. Unfortunately, he received all his morning blood pressure medications in spite of his relative hypotension and this has further facilitated/worsened his low blood pressure. Renal consultation was requested due to his end-stage renal disease. The patient normally dialyzes on a Friday, , Friday dialysis schedule at [facility] under the care of Dr. Isaiah Davis. However, as already mentioned above, [facility] unable to accommodate his trach collar status and hence he actually does not have a outpatient dialysis unit to go to at this time. From a dialysis perspective, he usually does reasonably well with his treatments in general although he sometimes has issues with hypotension related to aggressive fluid removal due to the fact that he sometimes has significant fluid gains in between his dialysis treatments. During his recent hospitalization at [facility], he was maintained on his T/T/S dialysis schedule and his last dialysis treatment was on Friday (08/24/24). Currently, at the time my evaluation, the patient is receiving dialysis and appears to be tolerating it fairly well (seen on HD at 10:15AM) aside from his significant hypotension (although he appears asymptomatic). Review of Systems 2 Review of Systems: As per HPI. PENDING SALE TO [facility] Past Medical History Medical History (Updated 08/29/24 @ 14:51 by Bernardino Galaviz MD) Laryngeal cancer (2016) status post partial laryngectomy and chemoradiation Right-sided heart failure Chronic respiratory failure with hypoxia, on home oxygen therapy Type 2 diabetes mellitus End-stage renal disease on hemodialysis Hyperlipidemia Congestive heart failure Renal osteodystrophy Erythropoietin deficiency anemia Hypothyroidism Hypertension Surgical History Surgical History (Updated 08/27/24 @ 23:22 by Simi Swanson PA-C) History of partial laryngectomy History of percutaneous endoscopic gastrostomy History of tracheostomy Amputation of right great toe Family History Family History Mother Family history of diabetes mellitus in first degree relative Diabetes mellitus Hypertension Heart disease Cerebrovascular accident Father Alcoholism Sibling Alcoholism Diabetes mellitus Hypertension Heart disease Cerebrovascular accident Other Family history of lung cancer Social History Social History Social History: Surrogate medical decision maker: Dasha Manriquezden, spouse. Code status: Full code. Smoking packs per day: 2 Smoking cigarettes per day: 40.0 Years smoked: 35 Smoking pack-years: 70.00 Smoking status: Former smoker Second hand tobacco smoke exposure: No Alcohol intake: never Substance use: never Substance use type: does not use Do You Feel Safe in your Home?: Yes Lack of Transportation: No Lack of Food: Never True Current Housing: I Have Housing Concerned About Future Housing: No Difficulty Paying Gas/Electric Bills: No Difficulty Paying for Meds: No Currently Unemployed: No Education: High School Diploma/GED Difficulty w/ Childcare or Family Care: No Additional living arrangements comments: Lives with spouse in [place]. They have 1 child. 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 care concerns: No Meds Home Medications and Allergies Home Medications ?Medication ?Instructions ?Recorded ?Confirmed ?Type amlodipine 10 mg tablet 10 mg PO DAILY 10/09/20 08/27/24 History carvedilol 12.5 mg tablet 12.5 mg PO Q12H 10/09/20 08/27/24 History levothyroxine 112 mcg capsule 175 mcg PO QAM 10/09/20 08/27/24 History losartan 100 mg tablet 100 mg PO DAILY 10/09/20 08/27/24 History pioglitazone 30 mg tablet 30 mg PO DAILY 10/09/20 08/27/24 History pravastatin 40 mg tablet 40 mg PO DAILY 05/08/23 08/27/24 History sevelamer carbonate 800 mg tablet 1,600 mg PO TIDWMEAL 08/07/24 08/27/24 History Allergies Allergy/AdvReac Type Severity Reaction Status Date / Time No Known Allergies Allergy Unknown Verified 08/05/24 10:41 Vital Signs Vital Signs Temp Pulse Resp BP Pulse Ox O2 Del Method O2 Flow Rate 08/28/24 10:30 65 84/52 L 08/28/24 10:15 65 77/52 L 08/28/24 10:00 68 80/57 L 08/28/24 09:45 54 L 77/47 L 08/28/24 09:40 59 L 73/46 L 08/28/24 09:36 65 82/52 L 08/28/24 09:31 60 08/28/24 09:31 56 L 79/58 L 08/28/24 09:15 90 High Flow Therapy with Tr 55 08/28/24 09:10 97.7 F 60 12 87/54 L 100 08/28/24 08:45 69 08/28/24 07:25 94/60 L 08/28/24 05:27 97.6 F 69 12 80/40 L 94 08/28/24 00:20 70 08/27/24 20:45 97 High Flow Therapy with Tr 40 08/27/24 20:00 85 12 97 High Flow Therapy with Tr 5 08/27/24 19:47 97.2 F L 85 12 126/60 97 08/27/24 17:50 97.8 F 86 18 117/66 95 08/27/24 16:19 95 Trach Collar 3 08/27/24 16:18 86 12 126/73 95 08/27/24 14:14 77 08/27/24 13:57 98.2 F 79 15 124/71 94 Trach Collar 3 Exam 2 Narrative: GENERAL APPEARANCE: somewhat chronically ill-appearing male in no acute distress HEENT: normocephalic, atraumatic, normal conjunctiva and sclera, nares patient NECK: no lymphadenopathy, thyromegaly, or JVD; trach collar in place MOUTH: normal lips, teeth, and gums CARDIOVASCULAR: RRR, normal S1 and S2, no rub RESPIRATORY: clear anteriorly; some crackles noted at the bases ABDOMEN: soft, nontender, nondistended, positive bowel sounds present EXTREMITIES: no evidence of cyanosis, clubbing; 2+ edema NEUROLOGICAL: alert and oriented x 3; CN II - XII intact bilaterally; no focal deficits noted Results Lab Results 08/29/24 05:10 08/29/24 05:10 Lab results: Most recent lab results Calcium 8.7 mg/dL (8.4-10.2) 08/28/24 05:02 Phosphorus 6.5 mg/dL (2.5-4.5) H 08/28/24 05:02 Magnesium 2.5 mg/dL (1.6-2.3) H 08/28/24 05:02
[2024-08-28] MEDS: EPOETIN ALFA-EPBX 4,000 UNITS/ML VIAL 4000 UNITS IV PUSH (11:28)
[2024-08-28 15:19] LABS: Glucose Point of Care 145 mg/dl (65-105)
[2024-08-28 16:47] LABS: Glucose Point of Care 114 mg/dl (65-105)
[2024-08-28] MEDS: LEVOTHYROXINE SODIUM 75 MCG TABLET PO (17:08)
[2024-08-28] MEDS: LEVOTHYROXINE SODIUM 100 MCG TABLET PO (17:08)
[2024-08-28] MEDS: MIDODRINE HCL 2.5 MG TABLET 5 MG PO (17:09)
[2024-08-28 21:27] LABS: Glucose Point of Care 136 mg/dl (65-105)
[2024-08-29] VITALS (41 sets, daily range): BP systolic 59–161; BP diastolic 48–94; PULSE 55–74; RESP 12–22; TEMP 36.2–37.1; O2SAT 77–100
[2024-08-29 05:45] LABS: Basophils Absolute Auto 0.1 K/mm3 (0.0-0.1); Basophils Percent Auto 1.1 % (0.2-1.2); Eosinophils Absolute Auto 0.1 K/mm3 (0-0.3); Eosinophils Percent Auto 2.2 % (0-4.4); Hematocrit 35.9 % (42.0-52.0); Hemoglobin 10.6 g/dL (14.0-18.0); Immature Granulocyte Absolute 0.04 K/mm3 (0.00-0.031); Immature Granulocyte Percent A 0.9 % (0-0.5); Immature Platelet Fraction Pct 7.7 % (0.9-11.2); Lymphocytes Absolute Auto 0.49 K/mm3 (0.9-3.2); Mean Corpuscular HGB Conc 29.5 g/dl (32-36); Mean Corpuscular Hemoglobin 33.9 pg (26-34); Mean Corpuscular Volume 114.7 fl (80-100); Mean Platelet Volume 11.6 fl (7.4-10.4); Monocytes Absolute Auto 0.7 K/mm3 (0.1-0.6); Monocytes Percent Auto 15.5 % (2.6-8.5); Neutrophils Absolute Auto 3.1 K/mm3 (1.3-6.7); Neutrophils Percent Auto 69.3 % (45.5-73.1); Platelet Count Result 140 k/mm3 (150-375); Red Blood Count 3.13 M/mm3 (4.6-6.20); Red Cell Distribution Width 14.7 % (11.5-14.5); White Blood Count 4.5 K/mm3 (4.5-10.0)
[2024-08-29] MEDS: LEVOTHYROXINE SODIUM 100 MCG TABLET PO (06:05)
[2024-08-29] MEDS: LEVOTHYROXINE SODIUM 75 MCG TABLET PO (06:05)
[2024-08-29 06:08] LABS: Alanine Aminotransferase 15 U/L (6-50); Albumin Level 4.2 g/dL (3.5-5.1); Alkaline Phosphatase 85 U/L (38-126); Anion Gap 12 mmol/L (4-12); Aspartate Amino Transferase 21 U/L (17-59); Bilirubin,Total 0.6 mg/dL (0.2-1.3); Blood Urea Nitrogen 35 mg/dL (9-20); Carbon Dioxide 29 mmol/L (22-30); Chloride 97 mmol/L (98-107); Estimated CRCL calculation 17 ml/min; Estimated Glomerular Filt Rate 12; Glucose 74 mg/dL (65-110); Magnesium 2.4 mg/dL (1.6-2.3); Potassium 4.3 mmol/L (3.4-5.0); Sodium 138 mmol/L (137-145)
[2024-08-29 06:30] LABS: Macrocytosis 2+ (NORMAL); Platelet Estimate Slightly Decreased (Adequate); Schistocytes None Seen
[2024-08-29 08:02] LABS: Glucose Point of Care 126 mg/dl (65-105)
[2024-08-29] MEDS: MIDODRINE HCL 10 MG TABLET PO ×2 (08:02→12:45)
[2024-08-29] MEDS: SEVELAMER CARBONATE 800 MG TABLET 1600 MG PO ×2 (08:02→12:47)
[2024-08-29] MEDS: PIOGLITAZONE HCL 30 MG TABLET PO (08:03)
[2024-08-29] MEDS: PRAVASTATIN SODIUM 20 MG TABLET 40 MG PO (08:03)
[2024-08-29] MEDS: cefTRIAXone 2 GM/NS 100 ML 2 GM/100 ML BAG IVPB (08:03)
[2024-08-29] MEDS: AZITHROMYCIN 500 MG/NS 250 ML 500 MG/250 ML BAG 250 MG IVPB (09:14)
--- NOTE | 2024-08-29 09:16 | P.PNIM_ITS ---
Progress Note: A&P Assessment and Plan (1) End-stage renal disease on hemodialysis: Code(s): N18.6 - End stage renal disease; Z99.2 - Dependence on renal dialysis Status: Acute Assessment and Plan: * Patient has missed two sessions of dialysis due to dialysis center in his town not being certified to take ventilators, will need care coordination to work on finding a dialysis center that will be able to provide treatments for patient. * Hemodialysis yesterday, patient blood pressure dropped into the 70's and patient was given Albumin. Albumin x4 provided, 250 ml NS bolus provided, extra 200 ml NS at rinse back provided. Patient was positive UF: 1130. * Nephrology consulted, appreciated recommendations. (2) Pneumonia: Code(s): J18.9 - Pneumonia, unspecified organism Status: Acute Assessment and Plan: * Started on Azithromycin 500 mg IVPB q 24 and Ceftriaxone 2 gram IVPB q 24. (3) Pancytopenia: Code(s): D61.818 - Other pancytopenia Status: Acute Assessment and Plan: * WBC 4.1, RBC 2.92, & platelets 120. * Trend CBC's. (4) Right-sided heart failure: Code(s): I50.810 - Right heart failure, unspecified Status: Acute Assessment and Plan: * Blood pressure in 70's-80's. Midodrine increased 10 mg PO TID. * Patient is on hemodialysis. (5) Hypertension: Code(s): I10 - Essential (primary) hypertension Status: Chronic Assessment and Plan: * Blood pressure in 70's-80's. Midodrine increased 10 mg PO TID. * Monitor blood pressure * Hold Amlodipine, Losartan, and Coreg 12.5 mg PO q 12. (6) 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 - Tracheostomy status Status: Acute Assessment and Plan: * Tracheostomy * Laryngeal cancer s/p partial laryngectomy. (7) Type 2 diabetes mellitus: Code(s): E11.9 - Type 2 diabetes mellitus without complications Status: Chronic Assessment and Plan: * Hypoglycemic protocol. * SSI * Accuchecks * Diabetic consistent carb diet. (8) Hypothyroidism: Code(s): E03.9 - Hypothyroidism, unspecified Status: Acute Assessment and Plan: * Levothyroxine 175 mcg PO daily. (9) Weakness: Code(s): R53.1 - Weakness Status: Acute Assessment and Plan: * PT/OT Subjective Date/time seen: 08/29/24 09:16 Interval history: Patient sitting up on the side of the bed eating breakfast. Patient denied chest pain, palpitations, headache, dizziness, nausea, or vomiting. Review of Systems Review of Systems: All systems reviewed & are unremarkable except as noted in HPI and below Exam Const: General: comfortable and no acute distress Resp: Auscultation: crackles (occasional crackles) and diminished lung sounds Cardio: Rate: regular rate Rhythm: regular rhythm GI: GI Palp: Yes Soft to palpation Other: hypoactive bowel sounds. Extrem: General: pedal edema bilaterally 3+ Psych: Mental Status: mental status grossly normal Affect: normal affect Objective Data Vital Signs Vital Signs: Vital Signs - 24 hr 08/28/24 09:31 08/28/24 09:31 08/28/24 09:36 Temperature Pulse Rate 56 L 65 Respiratory Rate Blood Pressure 79/58 L 82/52 L Pulse Oximetry Oxygen Delivery Oxygen Flow Rate 60 Fraction of Inspired Oxygen 08/28/24 09:40 08/28/24 09:45 08/28/24 10:00 Temperature Pulse Rate 59 L 54 L 68 Respiratory Rate Blood Pressure 73/46 L 77/47 L 80/57 L Pulse Oximetry Oxygen Delivery Oxygen Flow Rate Fraction of Inspired Oxygen 08/28/24 10:15 08/28/24 10:30 08/28/24 10:45 Temperature Pulse Rate 65 65 66 Respiratory Rate Blood Pressure 77/52 L 84/52 L 80/52 L Pulse Oximetry Oxygen Delivery Oxygen Flow Rate Fraction of Inspired Oxygen 08/28/24 11:00 08/28/24 11:15 08/28/24 11:30 Temperature Pulse Rate 70 67 68 Respiratory Rate Blood Pressure 86/52 L 79/50 L 90/61 L Pulse Oximetry Oxygen Delivery Oxygen Flow Rate Fraction of Inspired Oxygen 08/28/24 11:45 08/28/24 12:00 08/28/24 12:15 Temperature Pulse Rate 69 69 69 Respiratory Rate Blood Pressure 74/49 L 74/48 L 74/46 L Pulse Oximetry Oxygen Delivery Oxygen Flow Rate Fraction of Inspired Oxygen 08/28/24 12:30 08/28/24 12:45 08/28/24 13:01 Temperature Pulse Rate 67 69 67 Respiratory Rate Blood Pressure 73/51 L 74/46 L 71/45 L Pulse Oximetry Oxygen Delivery Oxygen Flow Rate Fraction of Inspired Oxygen 08/28/24 13:06 08/28/24 13:10 08/28/24 13:17 Temperature 97.3 F L Pulse Rate 67 66 67 Respiratory Rate 20 Blood Pressure 76/55 L 88/45 L 90/45 L Pulse Oximetry 100 Oxygen Delivery Oxygen Flow Rate Fraction of Inspired Oxygen 08/28/24 14:00 08/28/24 15:20 08/28/24 18:18 Temperature 97.5 F L Pulse Rate 65 61 Respiratory Rate 18 14 Blood Pressure 89/56 L 89/56 L Pulse Oximetry 97 92 93 Oxygen Delivery High Flow Therapy with Tr High Flow Therapy with Tr Oxygen Flow Rate 50 50 Fraction of Inspired Oxygen 75 08/28/24 20:00 08/28/24 20:07 08/28/24 21:45 Temperature 97.3 F L Pulse Rate 62 62 Respiratory Rate 16 16 Blood Pressure 70/48 L Pulse Oximetry 92 92 98 Oxygen Delivery High Flow Therapy with Tr High Flow Therapy with Tr Oxygen Flow Rate 5 50 Fraction of Inspired Oxygen 75 75 08/29/24 04:49 08/29/24 08:33 08/29/24 08:51 Temperature 97.1 F L Pulse Rate 60 Respiratory Rate 16 Blood Pressure 74/51 L 82/56 L Pulse Oximetry 98 93 Oxygen Delivery High Flow Therapy with Tr Oxygen Flow Rate 45 Fraction of Inspired Oxygen 80 Intake/Output Intake/Output: Intake & Output 08/26/24 08/27/24 08/28/24 08/29/24 23:59 23:59 23:59 23:59 Intake Total 240 860 390 Output Total 0 0 Balance 240 860 390 Meds/Results Medications: Active Medications Generic Name Dose Route Start Last Admin Trade Name Freq PRN Reason Stop Dose Admin Acetaminophen 650 mg 08/27/24 15:58 Acetaminophen 325 Mg Tablet PO Q4H PRN Mild Pain (1-3) or Fever Amlodipine Besylate 10 mg 08/28/24 09:00 08/28/24 08:45 Amlodipine Besylate 10 Mg Tablet PO 10 mg DAILY ISELA Administration Carvedilol 12.5 mg 08/27/24 23:35 08/28/24 08:45 Carvedilol 12.5 Mg Tablet PO 12.5 mg Q12HR ISELA Administration Dextrose 12.5 gm 08/27/24 23:31 Dextrose 50% 25 Gm/50 Ml Syringe IV PUSH PRN PRN Hypoglycemia Protocol Glucagon 1 mg 08/27/24 23:31 Glucagon For Inj 1 Mg Vial IM PRN PRN Hypoglycemia Protocol Glucose 15 gm 08/27/24 23:31 Glucose Oral Gel 15 Gm Of Glucse In 37.5 Gm Tube PO PRN PRN Hypoglycemia Protocol Dextrose 1,000 mls @ 100 mls/hr 08/27/24 23:31 Dextrose 5% 1,000 Ml IVPB PRN PRN Hypoglycemia Protocol Albumin Human 50 mls @ 999 mls/hr 08/28/24 01:42 08/28/24 12:30 Albutein IVPB 09/27/24 01:41 Infused Q10M PRN Infusion HYPOTENSION Ceftriaxone Sodium 2 gm in 100 mls @ 200 mls/hr 08/29/24 09:00 08/29/24 08:03 Rocephin 2 Gm/Ns 100 Ml IVPB 200 mls/hr Q24H ISELA Administration Azithromycin 500 mg in 250 mls @ 250 mls/hr 08/29/24 09:00 Zithromax IVPB Q24H ISELA Insulin Aspart 3 - 6 units 08/28/24 08:00 08/29/24 08:10 Insulin Aspart (*Bkc) 100 Units/Ml SUB-Q Not Given TIDWM [facility] Protocol Insulin Aspart 1 - 3 units 08/28/24 21:00 08/28/24 20:57 Insulin Aspart (*Bkc) 100 Units/Ml SUB-Q Not Given HS [facility] Protocol Levothyroxine Sodium 75 mcg 08/28/24 06:30 08/29/24 06:05 Levothyroxine Sodium 75 Mcg Tablet PO 75 mcg DAILY@0630 ISELA Administration Levothyroxine Sodium 100 mcg 08/28/24 06:30 08/29/24 06:05 Levothyroxine Sodium 100 Mcg Tablet PO 100 mcg DAILY@0630 ISELA Administration Losartan Potassium 100 mg 08/28/24 09:00 08/28/24 08:45 Losartan Potassium 100 Mg Tablet PO 100 mg DAILY ISELA Administration Midodrine 10 mg 08/29/24 08:00 08/29/24 08:02 Midodrine Hcl 10 Mg Tablet PO 10 mg TID ISELA Administration Pioglitazone HCl 30 mg 08/28/24 09:00 08/29/24 08:03 Pioglitazone Hcl 30 Mg Tablet PO 30 mg DAILY ISELA Administration Pravastatin Sodium 40 mg 08/28/24 09:00 08/29/24 08:03 Pravastatin Sodium 20 Mg Tablet PO 40 mg DAILY ISELA Administration Sevelamer Carbonate 1,600 mg 08/28/24 08:00 08/29/24 08:02 Sevelamer Carbonate 800 Mg Tablet PO 1,600 mg TIDWM ISELA Administration Radiology Results: ITS Impressions Chest X-Ray 08/28/24 15:54 IMPRESSION: Multifocal pneumonia, moderate pulmonary vascular congestion with increasing bilateral pleural effusions and near complete opacification of the left hemithorax with aeration of the right upper lobe only. Labs Labs: Laboratory Results - last 24 hr 08/28/24 08/28/24 08/28/24 15:13 16:45 20:00 WBC RBC Hgb Hct MCV MCH MCHC RDW Plt Count MPV Immature Gran % (Auto) Neut % (Auto) Lymph % (Auto) Kinney % (Auto) Eos % (Auto) Baso % (Auto) Lymph # (Auto) Kinney # (Auto) Eos # (Auto) Baso # (Auto) Abs Immat Gran (auto) Absolute Neuts (auto) Absolute Nucleated RBC Band Neutrophils % Nucleated RBC % Platelet Estimate % Immature Plt Fraction Macrocytosis Schistocytes Sodium Potassium Chloride Carbon Dioxide Anion Gap BUN Creatinine Estim Creat Clear Calc Estimated GFR Glucose POC Capillary Glucose 145 H 114 H 136 H Calcium Phosphorus Magnesium Total Bilirubin AST ALT Alkaline Phosphatase Total Protein Albumin 08/29/24 08/29/24 05:10 07:59 WBC 4.5 RBC 3.13 L Hgb 10.6 L Hct 35.9 L MCV 114.7 H MCH 33.9 MCHC 29.5 L RDW 14.7 H Plt Count 140 L MPV 11.6 H Immature Gran % (Auto) 0.9 H Neut % (Auto) 69.3 Lymph % (Auto) 11.0 L Kinney % (Auto) 15.5 H Eos % (Auto) 2.2 Baso % (Auto) 1.1 Lymph # (Auto) 0.49 L Kinney # (Auto) 0.7 H Eos # (Auto) 0.1 Baso # (Auto) 0.1 Abs Immat Gran (auto) 0.04 H Absolute Neuts (auto) 3.1 Absolute Nucleated RBC 0.000 Band Neutrophils % Not Reportable Nucleated RBC % 0.0 Platelet Estimate Slightly decreased % Immature Plt Fraction 7.7 Macrocytosis 2+ Schistocytes None seen Sodium 138 Potassium 4.3 Chloride 97 L Carbon Dioxide 29 Anion Gap 12 BUN 35 H D Creatinine 5.13 H Estim Creat Clear Calc 17 Estimated GFR 12 L Glucose 74 POC Capillary Glucose 126 H Calcium 9.0 Phosphorus 5.0 H Magnesium 2.4 H Total Bilirubin 0.6 AST 21 ALT 15 Alkaline Phosphatase 85 Total Protein 7.0 Albumin 4.2 Quality VTE Prophylaxis VTE prophylaxis: mechanical ordered
[2024-08-29] MEDS: ALBUMIN HUMAN 25% 25 GM/100 ML 100 ML IVPB (11:12)
[2024-08-29 12:02] LABS: Glucose Point of Care 90 mg/dl (65-105)
--- NOTE | 2024-08-29 13:06 | PCPTNOTE ---
Presented for PT evaluation. Pt had a rapid response called yesterday after PT evaluation ordered. Pt blood pressures remaining low. After discussion with nursing, pt currently not safe to attempt standing for PT evaluation. Will continue to monitor and reattempt as able.
--- NOTE | 2024-08-29 13:45 | PM.PNNEP ---
Progress Note: A&P Assessment and Plan (1) End stage renal disease: Code(s): N18.6 - End stage renal disease Status: Chronic Assessment and Plan: HD yesterday continue Friday//Friday dialysis schedule while hospitalized follow electrolytes, volume status, and clearance (2) Chronic respiratory failure: Code(s): J96.10 - Chronic respiratory failure, unspecified whether with hypoxia or hypercapnia Status: Chronic Assessment and Plan: due to laryngeal cancer s/p, partial laryngectomy, obesity hypoventilation syndrome, and obstructive sleep apnea currently tracheostomy dependent on high flow oxygen therapy via trach collar respiratory therapy following (3) Hypotension: Code(s): I95.9 - Hypotension, unspecified Status: Acute Assessment and Plan: as noted since AM on 08/28 worsened by administration scheduled BP medication on 08/28 as well appears asymptomatic BP medications on hold started on oral midodrine therapy due to early sepsis?? recent CXR with pneumonia follow trend of hemodynamics (4) Pneumonia: Code(s): J18.9 - Pneumonia, unspecified organism Status: Acute Assessment and Plan: as suggested by recent imaging follow culture data on antibiotic therapy (5) Hypertension: Code(s): I10 - Essential (primary) hypertension Status: Chronic Assessment and Plan: BP medications on hold due to hypotension follow trend of hemodynamics (6) Type 2 diabetes mellitus: Code(s): E11.9 - Type 2 diabetes mellitus without complications Status: Chronic Assessment and Plan: follow accu-cheks glycemic control per hospitalist Will continue to follow. Subjective Date/time seen: 08/29/24 13:45 Interval history: Follow-up for end stage renal disease on hemodialysis. Tolerated dialysis treatment yesterday but unable to perform ultrafiltraiton/fluid removal due to significant hypotension; all BP medications currently on hold and was started on midodrine yesterday afternoon; BP still low but asymptomatic; sitting up in bed at the time of my visit and in no apparent distress at the time of my visit. Exam Narrative: General: WD/WN male in NAD Heart: normal S1 and S2; no rub Lungs: coarse with decreased breath sounds at bases Abdomen: soft, nontender but mild distension, positive bowel sounds Extremities: no cyanosis or clubbing; trace - 1+ edema in UEs and LEs Skin: warm and dry Objective Data Vital Signs Vital Signs: Vital Signs Temp Pulse Resp BP Pulse Ox O2 Del Method O2 Flow Rate 08/29/24 12:13 80/50 L 08/29/24 09:28 82/48 L 08/29/24 08:51 93 High Flow Therapy with Tr 45 08/29/24 08:33 82/56 L 08/29/24 04:49 97.1 F L 60 16 74/51 L 98 08/28/24 21:45 98 High Flow Therapy with Tr 50 08/28/24 20:07 97.3 F L 62 16 70/48 L 92 08/28/24 20:00 62 16 92 High Flow Therapy with Tr 5 08/28/24 18:18 93 High Flow Therapy with Tr 50 08/28/24 15:20 61 14 89/56 L 92 High Flow Therapy with Tr 50 Intake/Output Intake/Output: Intake & Output 08/26/24 08/27/24 08/28/24 08/29/24 23:59 23:59 23:59 23:59 Intake Total 240 860 610 Output Total 0 0 Balance 240 860 610 Meds/Results Medications: Active Medications Generic Name Dose Route Start Last Admin Trade Name Freq PRN Reason Stop Dose Admin Acetaminophen 650 mg 08/27/24 15:58 Acetaminophen 325 Mg Tablet PO Q4H PRN Mild Pain (1-3) or Fever Amlodipine Besylate 10 mg 08/28/24 09:00 08/28/24 08:45 Amlodipine Besylate 10 Mg Tablet PO 10 mg DAILY ISELA Administration Carvedilol 12.5 mg 08/27/24 23:35 08/28/24 08:45 Carvedilol 12.5 Mg Tablet PO 12.5 mg Q12HR ISELA Administration Dextrose 12.5 gm 08/27/24 23:31 Dextrose 50% 25 Gm/50 Ml Syringe IV PUSH PRN PRN Hypoglycemia Protocol Glucagon 1 mg 08/27/24 23:31 Glucagon For Inj 1 Mg Vial IM PRN PRN Hypoglycemia Protocol Glucose 15 gm 08/27/24 23:31 Glucose Oral Gel 15 Gm Of Glucse In 37.5 Gm Tube PO PRN PRN Hypoglycemia Protocol Dextrose 1,000 mls @ 100 mls/hr 08/27/24 23:31 Dextrose 5% 1,000 Ml IVPB PRN PRN Hypoglycemia Protocol Albumin Human 50 mls @ 999 mls/hr 08/28/24 01:42 08/28/24 12:30 Albutein IVPB 09/27/24 01:41 Infused Q10M PRN Infusion HYPOTENSION Ceftriaxone Sodium 2 gm in 100 mls @ 200 mls/hr 08/29/24 09:00 08/29/24 08:33 Rocephin 2 Gm/Ns 100 Ml IVPB Infused Q24H ISELA Infusion Azithromycin 500 mg in 250 mls @ 250 mls/hr 08/29/24 09:00 08/29/24 09:14 Zithromax IVPB 250 mls/hr Q24H ISELA Administration Sodium Chloride 500 mls @ 999 mls/hr 08/29/24 13:50 Normal Saline Iv IV CONT 08/29/24 14:20 .Q31M ONE Insulin Aspart 3 - 6 units 08/28/24 08:00 08/29/24 12:43 Insulin Aspart (*Bkc) 100 Units/Ml SUB-Q Not Given TIDWM [facility] Protocol Insulin Aspart 1 - 3 units 08/28/24 21:00 08/28/24 20:57 Insulin Aspart (*Bkc) 100 Units/Ml SUB-Q Not Given HS [facility] Protocol Levothyroxine Sodium 75 mcg 08/28/24 06:30 08/29/24 06:05 Levothyroxine Sodium 75 Mcg Tablet PO 75 mcg DAILY@0630 ISELA Administration Levothyroxine Sodium 100 mcg 08/28/24 06:30 08/29/24 06:05 Levothyroxine Sodium 100 Mcg Tablet PO 100 mcg DAILY@0630 ISELA Administration Losartan Potassium 100 mg 08/28/24 09:00 08/28/24 08:45 Losartan Potassium 100 Mg Tablet PO 100 mg DAILY ISELA Administration Midodrine 10 mg 08/29/24 08:00 08/29/24 12:45 Midodrine Hcl 10 Mg Tablet PO 10 mg TID ISELA Administration Pioglitazone HCl 30 mg 08/28/24 09:00 08/29/24 08:03 Pioglitazone Hcl 30 Mg Tablet PO 30 mg DAILY ISELA Administration Pravastatin Sodium 40 mg 08/28/24 09:00 08/29/24 08:03 Pravastatin Sodium 20 Mg Tablet PO 40 mg DAILY ISELA Administration Sevelamer Carbonate 1,600 mg 08/28/24 08:00 08/29/24 12:47 Sevelamer Carbonate 800 Mg Tablet PO 1,600 mg TIDWM ISELA Administration Radiology Results: ITS Impressions Chest X-Ray 08/28/24 15:54 IMPRESSION: Multifocal pneumonia, moderate pulmonary vascular congestion with increasing bilateral pleural effusions and near complete opacification of the left hemithorax with aeration of the right upper lobe only. Labs Labs: Laboratory Tests 08/29/24 05:10 08/29/24 05:10 Calcium 9.0 Phosphorus 5.0 H Magnesium 2.4 H Total Bilirubin 0.6 AST 21 ALT 15 Alkaline Phosphatase 85 Total Protein 7.0 Albumin 4.2
--- NOTE | 2024-08-29 13:47 | ECG_ITS ---
Test Date: 2024-08-29 13:56:53 Measurements Intervals [place] Rate: 64 P: 208 FL: 91 QRS: 147 QRSD: 104 T: 120 QT: 402 QTc: 417 Interpretive Statements SINUS RHYTHM WITH 1ST DEGREE AV BLOCK INCOMPLETE RIGHT BUNDLE BRANCH BLOCK [90+ ms QRS DURATION, TERMINAL R IN V1/V2, 40+ ms S IN I/aVL/V4/V5/V6] POSSIBLE RIGHT VENTRICULAR HYPERTROPHY [SOME/ALL OF: PROMINENT R IN V1, LATE TRANSITION, RAD, MIROSLAVA, SSS] POSSIBLE ANTERIOR MYOCARDIAL INFARCTION , PROBABLY OLD [30 ms Q WAVE IN V3/V4, OR R < 0.2 mV IN V4] NONSPECIFIC ST AND T-WAVE ABNORMALITY ABNORMAL ECG Electronically Signed On 08-29-2024 14:28:12 CDT by Desmond Mcpherson M.D.
[2024-08-29] MEDS: IPRATROPIUM 0.5 MG/ALBUTEROL SULFATE 2.5 MG AMPUL.NEB 3 ML INHALATION (14:00)
--- NOTE | 2024-08-29 14:20 | PC.NURSE ---
Patient received from a [facility]. Patient was hypotensive and hypoxic upon arrival. Respiratory insert 6 fr ET tube in laryngeal airway. Patient bagged, mucous plugged removed. Vent placed to ET tube. Bicarb amp given for pressure support. Levo started [address]. See MAR and Orders. Central line placed, see invasive procedure assessment flow sheet.
[2024-08-29 14:25] LABS: Glucose Point of Care 114 mg/dl (65-105)
[2024-08-29] MEDS: NOREPINEPHRINE 8 MG/D5W 250 ML 8 MG/250 ML BAG 18.75 MG IV CONT (14:30)
[2024-08-29] MEDS: SODIUM BICARBONATE 8.4% 50 MEQ/50 ML SYRINGE IV PUSH (14:32)
--- NOTE | 2024-08-29 15:22 | WPDPROCEDUR ---
Procedures Intubation Intubation Date: 08/29/24 Intubation Time: 14:30 Consent: Patient was full code. He was in respiratory failure hypoxic and unable to ventilate. I explained to the patient that tube will be placed to help his breathing I am not sure if he fully understood the procedure although he has had history of intubation in the past. Procedure was done emergently as medical necessity as patient was impending cardiac arrest A pre-procedural Time-Out was completed immediately before starting the procedure and confirmed: Patient Identification, Site, Procedure, Patient Position and the Availability of Requisite Equipment: Yes Sedative: none Laryngoscope: other Assist device used: other ET tube size: 6 Tube secured depth (cm): 13 Tube secured location: other Tube placement confirmation: equal breath sounds bilaterally, no breath sounds over epigastrium and confirmation by capnometry Patient tolerated procedure: other Intubation complications: difficult intubation Additional comments: Patient has history of laryngectomy and has a miri tube. Patient had worsening respiratory status and this tube could not be tested ventilator. Patient not a candidate for BiPAP. Patient was on a oxygen mask. Patient was transferred to ICU and emergently intubated. I tried to insert a size 6.5 ET tube through the Miri tube into the trachea but was unable to at the ETT would not advance. Is significant amount of secretions were seen on the 2 was seen when the 6.5 ET tube was pulled out. Then a size 6.0 ET tube was inserted through the tube. Initially to 16 cm but patient had breath sounds only on the right side but not on the left side. Tube was withdrawn to 15 cm we then equal breath sounds were heard and sats improved with bagging. I tried to use the bronchoscope to assess the tube tip but the bronchoscope was too big for the size 6 ET tube and I was unable to pass the bronchoscope through the tube. Patient was suctioned multiple times. Chest x-ray was obtained and was reviewed and then tube was further withdrawn to 13 cm to the tip of Miri tube and cuff inflated. Patient has significant amount of secretions which were suctioned out multiple times. Patient was also vagi with saline to the tube and eventually as the sats improved patient was switched to mechanical ventilation Refer to my consultation note for all the other detailed
--- NOTE | 2024-08-29 15:28 | WPDPROCEDUR ---
Procedures Central Line Placement Right Femoral: Central Line Date: 08/29/24 Central Line Time: 15:00 Discussed w/ the patient/family/POA,the placement of a central venous catheter, including its clinical necessity/indication & associated potential risks, benifits and alternatives.: Yes The patient/family/POA understand(s) and acknowledge(s) the need to proceed with central venous catheter insertion as an important element of the patient's clinical management.: Yes Performed Emergently - Given emergent patient condition, temporal constraints may have precluded informed consent.: Yes Consent: I spoke to patient and explained him that is central line needs to be inserted for better IV access as patient was in shock and respiratory failure with only 1 peripheral IV and due to his history of end-stage renal disease he has poor IV access. Patient was on 10 mcg of Levophed. I explained him the procedure but I am not fully sure whether he fully understood all the i risks and benefits of it. He did notice head affirmatively but I will resume the procedure was done as medical necessity considering his mental status and emergency situation at that time. Time Out Performed: Yes Patient Position: supine Patient placed on monitor/pulse ox: Yes Provider Prep: mask, sterile gown, sterile gloves, Max. sterile barrier precautions, cap and hand hygiene with conventional soap/water or alcohol based hand rub Central line prep: Povidone-Iodine 1% Local anesthesia used: lidocaine 1% Amount of anesthesia used (ml): 5 Sterile US Technique with sterile gel/sterile probe covers: Yes Central line lumen inserted: triple Length (cm): 16 Depth of Insertion (cm): 16 Post Procedure: sutured in place, good blood return, all ports aspirated, flushed, capped, transparent dressing and aseptic technique maintained throughout procedure Patient tolerated procedure: well Complications: none Additional comments: Required 2 attempts. Patient removed his leg after cannulation of the wean and I lost the access. Procedure was completed on 2nd attempt without any complications.
[2024-08-29 15:29] LABS: Alveolar/Arterial O2 Gradient 583.5 mmHg; Base Excess ABG -5.5 mEq/l (+/-2.0); Fractional Inspired Oxygen 100 %; HCO3 ABG 23.5 mEq/l (22.0-26.0); Oxygen Content ABG 15.4 %vol (16.0-22.0); Oxyhemoglobin 87.9 % THb (90.0-100.0); PO2 FiO2 Ratio Arterial Blood 0.66 %; Total Hemoglobin 12.4 g/dL (12.0-18.0)
[2024-08-29 15:30] LABS: Device VENTILATOR; Modified Allen's Test Pass; Oxygen Saturation ABG 87.5 % (95.0-100.0); PCO2 ABG 63.5 mmHg (35.0-45.0); Site Drawn LEFT RADIAL; pH ABG 7.187 (7.350-7.450)
--- NOTE | 2024-08-29 15:30 | P.CONIN_ITS ---
Assessment and Plan Assessment and plan (1) Acute on chronic respiratory failure with hypoxia and hypercapnia: Code(s): J96.21 - Acute and chronic respiratory failure with hypoxia; J96.22 - Acute and chronic respiratory failure with hypercapnia Status: Acute Assessment and Plan: Acute on chronic respiratory failure secondary to pulmonary edema and possible pneumonia, obesity hypoventilation, chronic respiratory failure secondary to laryngeal cancer status post laryngectomy and laryngeal tube placement His during due to cannot be attached to ventilator on BiPAP. An emergent ET tube was inserted through the laryngeal tube to secure airway and attached to mechanical ventilation Due to small size of airway we are having high pressures and gradually increasing mechanical ventilation Chest x-ray reviewed ABG reviewed and shows hypoxia and hypercarbia I will increase tidal volume to 350 and rate to 20 now since after suctioning his peak pressures have decreased I requested theatrical agent to dialyze patient today to remove fluid to help with respiratory status Continue current peep of 10 and FiO2 100% He is on empiric antibiotic therapy for pneumonia (2) Hypotension: Code(s): I95.9 - Hypotension, unspecified Status: Acute Assessment and Plan: Patient is hypotensive and has been started on Levophed. Patient does have history of hypertension and was on antihypertensive medications. Hypotension could be secondary to hypoxia and acidosis as blood pressure is now improving after patient has been placed on mechanical ventilation. Since he is already volume overloaded he has been started on Levophed to maintain mean arterial pressure to be able to dialyze patient There is also a possibility of sepsis although patient has been afebrile with normal WBC count. He was started on empiric antibiotic for pneumonia which will be continue I will check procalcitonin level and lactic acid 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 - Tracheostomy status Status: Acute Assessment and Plan: See above (6) End-stage renal disease on hemodialysis: Code(s): N18.6 - End stage renal disease; Z99.2 - Dependence on renal dialysis Status: Acute Assessment and Plan: I have spoken to theatrical agent time requested that patient be dialyzed for fluid removal. Patient has not received dialysis for multiple days and yesterday when he did get his dialysis they were not able to remove any fluid due to his hypotension and patient infected received albumin bolus. He is grossly volume overloaded (7) Pulmonary edema: Code(s): J81.1 - Chronic pulmonary edema Status: Acute Assessment and Plan: See above (8) Generalized edema: Code(s): R60.1 - Generalized edema Status: Acute Assessment and Plan: See above (9) Sepsis: Code(s): A41.9 - Sepsis, unspecified organism Status: Acute Assessment and Plan: Although patient is afebrile and has had normal WBC. He was started on antibiotics for pneumonia considering lung infiltrates on chest x-ray Pneumonia appears to be less likely from clinical picture. I will continue antibiotics and check procalcitonin and lactic acid level. He had blood cultures done this morning which are pending And vancomycin Plan DVT prophylaxis -Lovenox Stress ulcer prophylaxis -PPI Nutrition - npo Code Status - Full Code Total Critical Care Time - 120 minutes Due to a high probability of clinically significant, life threatening deterioration, the patient required my highest level of preparedness to intervene emergently and I personally spent this critical care time directly and personally managing the patient. This critical care time included obtaining a history; examining the patient; pulse oximetry; ordering and review of studies; arranging urgent treatment with development of a management plan; evaluation of patient's response to treatment; frequent reassessment; and discussions with other providers. It was exclusive of separately billable procedures and treating other patients and teaching time. Please see Assessment and Plan section and the rest of the note for further information on patient assessment and treatment [employer] Consult Note Consult date: 08/29/24 Reason for consult: Acute on chronic respiratory failure attention HPI: Bubba Saxena is a 59 year old male with significant past medical history of laryngeal cancer status post chemo radiation and deloris tube, right heart failure, chronic respiratory failure on home O2, type 2 diabetes, end-stage renal disease on dialysis, anemia, hypothyroidism, essential hypertension who was recently admitted at [facility] early this month and was eventually transferred to [facility] for ENT evaluation. He returned to [facility] on 08/27 with complaint of generalized weakness. Patient is on Friday schedule and has not had cup of dialysis sessions because his dialysis unit could not accommodate him due to his tracheostomy tube. Patient was unable to find any other option for dialysis and hence presented to ER. At that time he had no other significant complaint. He had stable electrolytes. He had stable vital signs and at that time denied any fever. He did had lower extremity edema and his WBC was normal. Patient was admitted and in dialysis was attempted yes but they were unable to remove any fluid due to hypotension. Patient did get his antihypertensive medications the morning. Patient infected got additional fluid bolus for his low blood pressure. His blood pressure medication with then discontinue and patient was started on some midodrine. This afternoon patient had a rapid response due to low saturated oxygen and low blood pressure. I was asked to evaluate patient with a rapid response. Patient was awake drowsy but responsive. His blood pressure was low. He was getting fluid bolus. On his lung exam he had decreased air movement. A stat portable chest x-ray was done which showed near complete opacification of left hemithorax and decreased bilateral aeration bilateral pleural effusions along with pulmonary edema patient was also hypotensive Patient patient was emergently transferred to ICU. I discontinue the fluid bolus as patient appeared clearly volume overloaded On arrival to ICU decision was made to place patient mechanical ventilation as patient appeared to be rapidly deteriorating with low saturations and blood pressure. I attempted to place a size 6.5 ET tube through his laryngeal 2 but was unable to advance the ET tube. Once the ET tube was removed I saw significant amount of secretions deposited on the ET tube which were dried and crusted. Then a size 6 ET tube was placed to the laryngeal tube without any difficulty. Tube was adjusted to adequate depth after and a chest x-ray. Patient has had remained low and he had to be bagged with PEEP valve. Patient was then placed on mechanical ventilation he had very high peak pressure due decreased lung compliance and small size of his ET tube. Patient was suction multiple times and was lavaged to remove significant amount of secretions. Patient was placed on mechanical ventilation with low tidal volume and low rate to minimize pressures and high PEEP to improve oxygenation. This led to his sats improving to her low 90s. Patient was awake alert and following commands throughout although history could not be obtained due to emergent situation. Patient was also hypotensive and was started on Levophed. One amp of bicarb was given for acidosis. RTs were unable to obtain ABG until that time. Patient had only 1 peripheral IV and has AV fistula on the right side. Patient had poor IV access hence in M urgent central venous catheter was placed in right femoral vein. I also spoke to the theatrical agent and requested the patient be dialyzed to remove some fluid to improve his respiratory status. Patient is now on Levophed which will help with blood pressure during dialysis Review of Systems 2 Review of Systems: ROS unobtainable: Yes unobtainable due to endotracheal tube PMFSH Past Medical History Medical History Laryngeal cancer (2016) status post partial laryngectomy and chemoradiation Right-sided heart failure Chronic respiratory failure with hypoxia, on home oxygen therapy Type 2 diabetes mellitus End-stage renal disease on hemodialysis Hyperlipidemia Congestive heart failure Renal osteodystrophy Erythropoietin deficiency anemia Hypothyroidism Hypertension Surgical History Surgical History History of partial laryngectomy History of percutaneous endoscopic gastrostomy History of tracheostomy Amputation of right great toe Family History Family History Mother Family history of diabetes mellitus in first degree relative Diabetes mellitus Hypertension Heart disease Cerebrovascular accident Father Alcoholism Sibling Alcoholism Diabetes mellitus Hypertension Heart disease Cerebrovascular accident Other Family history of lung cancer Social History Social History Social History: Surrogate medical decision maker: Dasha Saxena, spouse. Code status: Full code. Smoking packs per day: 2 Smoking cigarettes per day: 40.0 Years smoked: 35 Smoking pack-years: 70.00 Smoking status: Former smoker Second hand tobacco smoke exposure: No Alcohol intake: never Substance use: never Substance use type: does not use Do You Feel Safe in your Home?: Yes Lack of Transportation: No Lack of Food: Never True Current Housing: I Have Housing Concerned About Future Housing: No Difficulty Paying Gas/Electric Bills: No Difficulty Paying for Meds: No Currently Unemployed: No Education: High School Diploma/GED Difficulty w/ Childcare or Family Care: No Additional living arrangements comments: Lives with spouse in [place]. They have 1 child. 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 care concerns: No Meds Home Medications and Allergies Home Medications ?Medication ?Instructions ?Recorded ?Confirmed ?Type amlodipine 10 mg tablet 10 mg PO DAILY 10/09/20 08/27/24 History carvedilol 12.5 mg tablet 12.5 mg PO Q12H 10/09/20 08/27/24 History levothyroxine 112 mcg capsule 175 mcg PO QAM 10/09/20 08/27/24 History losartan 100 mg tablet 100 mg PO DAILY 10/09/20 08/27/24 History pioglitazone 30 mg tablet 30 mg PO DAILY 10/09/20 08/27/24 History pravastatin 40 mg tablet 40 mg PO DAILY 05/08/23 08/27/24 History sevelamer carbonate 800 mg tablet 1,600 mg PO TIDWMEAL 08/07/24 08/27/24 History Allergies Allergy/AdvReac Type Severity Reaction Status Date / Time No Known Allergies Allergy Unknown Verified 08/05/24 10:41 Vital Signs Vital Signs - 24 hr 08/28/24 18:18 08/28/24 20:00 08/28/24 20:07 Temperature 36.3 C L Pulse Rate 62 62 Respiratory Rate 16 16 Blood Pressure 70/48 L Pulse Oximetry 93 92 92 Oxygen Delivery High Flow Therapy with Tr High Flow Therapy with Tr Oxygen Flow Rate 50 5 Fraction of Inspired Oxygen 75 75 08/28/24 21:45 08/29/24 04:49 08/29/24 08:33 Temperature 36.2 C L Pulse Rate 60 Respiratory Rate 16 Blood Pressure 74/51 L 82/56 L Pulse Oximetry 98 98 Oxygen Delivery High Flow Therapy with Tr Oxygen Flow Rate 50 Fraction of Inspired Oxygen 75 08/29/24 08:51 08/29/24 09:28 08/29/24 12:13 Temperature Pulse Rate Respiratory Rate Blood Pressure 82/48 L 80/50 L Pulse Oximetry 93 Oxygen Delivery High Flow Therapy with Tr Oxygen Flow Rate 45 Fraction of Inspired Oxygen 80 08/29/24 14:30 Temperature Pulse Rate 67 Respiratory Rate Blood Pressure 59/51 L Pulse Oximetry Oxygen Delivery Oxygen Flow Rate Fraction of Inspired Oxygen Exam 2 Narrative: General: Pt is ill-appearing gentleman who appears older than his age. He is drowsy but easily responsive and wakes up and follows command Lungs/Chest: Decreased bilateral breath sounds overall coughh occasional crackles and decreased breath sound at bases, thick screen Cardiac: RRR. Normal S1 S2. No murmurs Circulation: Feet are well Abdomen: Decreased bowel sounds. Morbid Obese. Soft. NT. ND. 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 : Hay in place Neurologic: Awake follows commands with all 4 extremities PERRL Results Labs 08/29/24 15:52 08/29/24 05:10 Labs: Impressions Chest X-Ray 08/28/24 15:54 IMPRESSION: Multifocal pneumonia, moderate pulmonary vascular congestion with increasing bilateral pleural effusions and near complete opacification of the left hemithorax with aeration of the right upper lobe only. Chest X-Ray 08/29/24 14:19 IMPRESSION: Near-complete left hemithorax opacification. Decreasing bilateral lung aeration, particularly on the left. Moderate bilateral pleural effusions. Short CBC 08/29/24 Range/Units 05:10 WBC 4.5 (4.5-10.0) K/mm3 Hgb 10.6 L (14.0-18.0) g/dL Hct 35.9 L (42.0-52.0) % Plt Count 140 L (150-375) k/mm3 BMP 08/29/24 05:10 Sodium 138 Potassium 4.3 Chloride 97 L Carbon Dioxide 29 BUN 35 H D Creatinine 5.13 H Glucose 74 Calcium 9.0 Liver Function 08/29/24 Range/Units 05:10 Total Bilirubin 0.6 (0.2-1.3) mg/dL AST 21 (17-59) U/L ALT 15 (6-50) U/L Alkaline Phosphatase 85 (38-126) U/L Albumin 4.2 (3.5-5.1) g/dL Quality VTE Prophylaxis VTE prophylaxis: mechanical ordered and pharmacologic ordered Hospitalist [facility] Advance Care Plan I have confirmed that the patient's Advanced Care Plan is present, code status is documented, or surrogate decision maker is listed in patient medical record.: Yes Medication Reconciliation I have utilized all available resources to obtain, update and review the patients current medications (includes all prescriptions, OTC, herbals, cannabis, and nutritional supplements).: Yes
[2024-08-29 15:31] LABS: Arterial Blood Gas PEEP 10 cmH2O; Arterial Blood Gas Tidal Volume 300 ml; Arterial Blood Gas Vent Mode CMV; Arterial Blood Gas Ventilator rate 18 /MIN
--- NOTE | 2024-08-29 15:37 | PM.CCN ---
Critical Care Event Note Summary Code activated: No Narrative: This case had a high probability of a clinically significant, sudden, or life threatening deterioration of this patient's condition which required my full and direct attention, intervention and personal management. Critical care time: 30 - 74 mins
--- NOTE | 2024-08-29 15:41 | P.RRN_ITS ---
Critical Care Event Note Summary Code activated: No Narrative: This case had a high probability of a clinically significant, sudden, or life threatening deterioration of this patient's condition which required my full and direct attention, intervention and personal management. Rapid response called. Patient found to be diaphoretic and unresponsive when I came into the room. Patient started waking up after a few minutes. Blood sugar 114. Blood pressure 73/47. Sa02 dropped down to 77 on high flow trach collar at 45 liters with Fi02 80. Respiratory increased the flow rate of 60 with Fi02 95 with Sa02 increase 93%. Patient deep suctioned, given a nebulizer treatment, NS 500 ml bolus initiated. EKG obtained showed SR with 1st degree AV block incomplete right bundle branch block, possible right ventricular hypertrophy, possible anterior myocardial infarction, probably old, QTc 417. CBC, CMP, Mg+, Trop, TSH, BNP, Procalcitonin, Lactic acid, RSV, and ABG ordered. Chest X-ray showed: IMPRESSION: Near-complete left hemithorax opacification. Decreasing bilateral lung aeration, particularly on the left. Moderate bilateral pleural effusions. Dr. Garcia heavy equipment service technician called to bedside. Patient accepted and transferred to the ICU bed 6. . Critical care time: 30 - 74 mins
[2024-08-29 16:07] LABS: Hematocrit 37.3 % (42.0-52.0); Hemoglobin 11.3 g/dL (14.0-18.0); Mean Corpuscular HGB Conc 30.3 g/dl (32-36); Mean Corpuscular Hemoglobin 34.1 pg (26-34); Mean Corpuscular Volume 112.7 fl (80-100); Mean Platelet Volume 11.1 fl (7.4-10.4); Platelet Count Result 156 k/mm3 (150-375); Red Blood Count 3.31 M/mm3 (4.6-6.20); Red Cell Distribution Width 14.8 % (11.5-14.5); White Blood Count 6.2 K/mm3 (4.5-10.0)
[2024-08-29 16:23] LABS: Lactic Acid Reflex 0.8 mmol/L (0.7-2.0)
[2024-08-29 16:24] LABS: Alanine Aminotransferase 14 U/L (6-50); Albumin Level 4.3 g/dL (3.5-5.1); Alkaline Phosphatase 92 U/L (38-126); Anion Gap 10 mmol/L (4-12); Aspartate Amino Transferase 21 U/L (17-59); Bilirubin,Total 0.7 mg/dL (0.2-1.3); Blood Urea Nitrogen 38 mg/dL (9-20); Carbon Dioxide 31 mmol/L (22-30); Chloride 97 mmol/L (98-107); Estimated CRCL calculation 17 ml/min; Estimated Glomerular Filt Rate 11; Glucose 112 mg/dL (65-110); Magnesium 2.3 mg/dL (1.6-2.3); Potassium 4.4 mmol/L (3.4-5.0); Sodium 138 mmol/L (137-145)
[2024-08-29 16:45] LABS: NT Pro B Type Natriuretic Pept > 30000 pg/mL (19.9-100)
[2024-08-29 16:54] LABS: Glucose Point of Care 100 mg/dl (65-105)
[2024-08-29 16:59] LABS: Procalcitonin 0.6 ng/mL
[2024-08-29 17:02] LABS: Alveolar/Arterial O2 Gradient 575.9 mmHg; Base Excess ABG -5.2 mEq/l (+/-2.0); Fractional Inspired Oxygen 100 %; HCO3 ABG 23.1 mEq/l (22.0-26.0); Oxygen Content ABG 16.1 %vol (16.0-22.0); Oxyhemoglobin 93.2 % THb (90.0-100.0); PO2 ABG 79.1 mmHg (80.0-100.0); PO2 FiO2 Ratio Arterial Blood 0.79 %; Total Hemoglobin 12.2 g/dL (12.0-18.0)
[2024-08-29 17:05] LABS: Arterial Blood Gas PEEP 10 cmH2O; Arterial Blood Gas Vent Mode CMV; Arterial Blood Gas Ventilator rate 20 /MIN; Device VENTILATOR; Modified Allen's Test Pass; Site Drawn LEFT RADIAL; pH ABG 7.218 (7.350-7.450)
[2024-08-29 17:06] LABS: Arterial Blood Gas Tidal Volume 350 ml
[2024-08-29 17:17] LABS: MRSA (PCR) NOT DETECTED (NOT DETECTE)
[2024-08-29 17:27] LABS: Thyroid Stimulating Hormone Reflex > 100.000 uIU/mL (0.465-4.68)
[2024-08-29 17:53] LABS: Free T4 Free Thyroxine Reflex 0.98 ng/dL (0.78-2.19)
[2024-08-29 18:30] LABS: Influenza A QL RT-PCR Negative (Negative); Influenza B QL RT-PCR Negative (Negative); RSV RNA, RT-PCR Negative (Negative); SARS-CoV-2 RNA PCR Negative (Negative)
[2024-08-29 18:51] LABS: Total Triiodothyronine (T3) 0.48 NG/ML (0.97-1.69)
--- NOTE | 2024-08-29 20:04 | PC.NURSE ---
repositioning patient with CONTINUOUS ABSORPTION PROCESS OPERATOR for ultrasound to perform dopplers. patient bacame diaphoretic, unresponsive. rapid response called, patient hypoxic and hypotensive. vitals and blood sugar obtained. 1350: Dr. Miguel gave verbal orders for STAT CXR, STAT EKG, 500 mL NS bolus, ABG. 1405- Lyudmila Leo gave verbal order for troponin I, TSH, CBC, CMP, magnesium, and to D/C actos. see rapid response note for further documentation and patient transfer
[2024-08-29 20:08] LABS: Glucose Point of Care 91 mg/dl (65-105)
[2024-08-29] MEDS: CENTRAL LINE FLUSH 10 ML IV PUSH (21:10)
[2024-08-29] MEDS: VANCOMYCIN 2,000 MG/NS 500 ML 2,000 MG/500 ML BAG 250 MG IVPB (23:01)
[2024-08-29] MEDS: CENTRAL LINE FLUSH 20 ML IV PUSH (23:07)
[2024-08-30] VITALS (53 sets, daily range): BP systolic 75–140; BP diastolic 52–86; PULSE 2–88; RESP 20–24; TEMP 36.3–37.1; O2SAT 96–100; BMI 33.3
[2024-08-30 00:03] LABS: Glucose Point of Care 116 mg/dl (65-105)
[2024-08-30 04:10] LABS: Glucose Point of Care 78 mg/dl (65-105)
[2024-08-30 05:00] LABS: Basophils Absolute Auto 0.1 K/mm3 (0.0-0.1); Basophils Percent Auto 1.8 % (0.2-1.2); Eosinophils Absolute Auto 0.1 K/mm3 (0-0.3); Eosinophils Percent Auto 1.6 % (0-4.4); Hematocrit 36.1 % (42.0-52.0); Hemoglobin 11.2 g/dL (14.0-18.0); Immature Granulocyte Absolute 0.03 K/mm3 (0.00-0.031); Immature Granulocyte Percent A 0.5 % (0-0.5); Lymphocytes Absolute Auto 0.74 K/mm3 (0.9-3.2); Mean Corpuscular Hemoglobin 34.4 pg (26-34); Mean Corpuscular Volume 110.7 fl (80-100); Mean Platelet Volume 11.5 fl (7.4-10.4); Monocytes Absolute Auto 0.9 K/mm3 (0.1-0.6); Monocytes Percent Auto 14.7 % (2.6-8.5); Neutrophils Absolute Auto 4.3 K/mm3 (1.3-6.7); Neutrophils Percent Auto 69.4 % (45.5-73.1); Nucleated Red Blood Cells Perc 0.5 % (0.0-0.2); Platelet Count Result 174 k/mm3 (150-375); Red Blood Count 3.26 M/mm3 (4.6-6.20); Red Cell Distribution Width 14.9 % (11.5-14.5); White Blood Count 6.2 K/mm3 (4.5-10.0)
[2024-08-30] MEDS: CENTRAL LINE FLUSH 10 ML IV PUSH ×2 (05:15→13:47)
[2024-08-30 05:20] LABS: Alanine Aminotransferase 13 U/L (6-50); Alkaline Phosphatase 88 U/L (38-126); Anion Gap 14 mmol/L (4-12); Aspartate Amino Transferase 20 U/L (17-59); Bilirubin,Total 0.7 mg/dL (0.2-1.3); Blood Urea Nitrogen 43 mg/dL (9-20); Calcium 9.1 mg/dL (8.4-10.2); Carbon Dioxide 27 mmol/L (22-30); Chloride 97 mmol/L (98-107); Estimated CRCL calculation 15 ml/min; Estimated Glomerular Filt Rate 10; Glucose 83 mg/dL (65-110); Magnesium 2.3 mg/dL (1.6-2.3); Phosphorus 4.7 mg/dL (2.5-4.5); Potassium 4.3 mmol/L (3.4-5.0); Sodium 138 mmol/L (137-145)
[2024-08-30 05:41] LABS: Alveolar/Arterial O2 Gradient 557.2 mmHg; Base Excess ABG -3.3 mEq/l (+/-2.0); Carboxyhemoglobin 0.5 % THb (0-2.0); Fractional Inspired Oxygen 100 %; Methemoglobin ABG 0.3 %THb (0-1.5); Oxygen Content ABG 16.5 %vol (16.0-22.0); Oxygen Saturation ABG 97.6 % (95.0-100.0); Oxyhemoglobin 97.5 % THb (90.0-100.0); PCO2 ABG 46.3 mmHg (35.0-45.0); PO2 ABG 109.5 mmHg (80.0-100.0); Reduced Hemoglobin 1.7 %THb (0-5.0); Total Hemoglobin 11.9 g/dL (12.0-18.0); pH ABG 7.314 (7.350-7.450)
[2024-08-30 06:37] LABS: Device VENTILATOR; Modified Allen's Test Pass; Site Drawn LEFT RADIAL
[2024-08-30 06:38] LABS: Arterial Blood Gas PEEP 10 cmH2O; Arterial Blood Gas Vent Mode CMV; Arterial Blood Gas Ventilator rate 20 /MIN
[2024-08-30 06:39] LABS: Arterial Blood Gas Tidal Volume 350 ml
[2024-08-30 07:45] LABS: Glucose Point of Care 68 mg/dl (65-105)
[2024-08-30 07:45] LABS: Glucose Point of Care 65 mg/dl (65-105)
[2024-08-30] MEDS: DEXTROSE 50% 25 GM/50 ML SYRINGE IV PUSH (07:50)
[2024-08-30 08:13] LABS: Glucose Point of Care 113 mg/dl (65-105)
[2024-08-30] MEDS: MIDAZOLAM HCL (*CRX) 2 MG/2 ML VIAL IV PUSH (08:30)
[2024-08-30] MEDS: cefTRIAXone 2 GM/NS 100 ML 2 GM/100 ML BAG IVPB (09:04)
[2024-08-30] MEDS: ENOXAPARIN 30 MG/0.3 ML SYRINGE SUB-Q (09:05)
[2024-08-30] MEDS: PRAVASTATIN SODIUM 20 MG TABLET 40 MG PO (09:05)
[2024-08-30] MEDS: AZITHROMYCIN 500 MG/NS 250 ML 500 MG/250 ML BAG 250 MG IVPB (09:05)
[2024-08-30] MEDS: PANTOPRAZOLE SODIUM IV 40 MG VIAL IV PUSH (09:06)
[2024-08-30] MEDS: MIDODRINE HCL 10 MG TABLET PO ×3 (09:06→18:10)
--- NOTE | 2024-08-30 10:21 | WPDINTPN ---
Progress Note: A&P Assessment and Plan (1) Acute on chronic respiratory failure with hypoxia and hypercapnia: Code(s): J96.21 - Acute and chronic respiratory failure with hypoxia; J96.22 - Acute and chronic respiratory failure with hypercapnia Status: Acute Assessment and Plan: Acute on chronic respiratory failure secondary to pulmonary edema and possible pneumonia, obesity hypoventilation, chronic respiratory failure secondary to laryngeal cancer status post laryngectomy and laryngeal tube placement 08/29 His laryngeal tubeo cannot be attached to ventilator or BiPAP. An emergent ET tube was inserted through the laryngeal tube to secure airway and attached to mechanical ventilation Due to small size of airway we are having high pressures and gradually increasing mechanical ventilation Chest x-ray reviewed this more ABG reviewed reviewed this morning Continue current ventilator settings with permissive hypercapnia. Wean FiO2 Continue to remove fluid with dialysis with another session plan today He is on empiric antibiotic therapy for pneumonia - see below Patient had a similar issue earlier this month when he was transferred to [facility] where ENT changed his Brigitte tube to a cuffed tracheostomy tube. Patient was on mechanical ventilation and eventually he improved and it was changed back to a noncuffed laryngeal tube prior to discharge. Patient at this time likely needs it changed back to a cuffed trach to allow ongoing mechanical ventilation. I will consult ENT for assistance. (2) Hypotension: Code(s): I95.9 - Hypotension, unspecified Status: Acute Assessment and Plan: 1 admission to ICU patient was hypotensive and has been started on Levophed. Patient does have history of hypertension and was on antihypertensive medications. Hypotension could be secondary to hypoxia and acidosis as blood pressure is now improving after patient has been placed on mechanical ventilation. Since he is already volume overloaded he has been started on Levophed to maintain mean arterial pressure to be able to dialyze patient There is also a possibility of sepsis although patient has been afebrile with normal WBC count. He was started on empiric antibiotic for pneumonia which will be continue Blood pressures improved and he is now on 2 mics of Levophed which will be continued and weaned as tolerated. 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 - Tracheostomy status Status: Acute Assessment and Plan: See above (6) End-stage renal disease on hemodialysis: Code(s): N18.6 - End stage renal disease; Z99.2 - Dependence on renal dialysis Status: Acute Assessment and Plan: Patient was dialyzed yesterday and will be dialyzed again today with goal to try to remove fluid (7) Pulmonary edema: Code(s): J81.1 - Chronic pulmonary edema Status: Acute Assessment and Plan: See above (8) Generalized edema: Code(s): R60.1 - Generalized edema Status: Acute Assessment and Plan: See above (9) Sepsis: Code(s): A41.9 - Sepsis, unspecified organism Status: Acute Assessment and Plan: Although patient is afebrile and has had normal WBC. He was started on antibiotics for community-acquired pneumonia considering lung infiltrates on chest x-ray Pneumonia appears to be less likely from clinical picture. His procalcitonin level was low. MRSA screen was negative there is a possibility of him aspirating since he has been eating I will continue antibiotics change Rocephin to Zosyn. Plan DVT prophylaxis -Lovenox Stress ulcer prophylaxis -PPI Nutrition -insert NG tube and start tube feeding Code Status - Full Code Total Critical Care Time - 35 minutes Due to a high probability of clinically significant, life threatening deterioration, the patient required my highest level of preparedness to intervene emergently and I personally spent this critical care time directly and personally managing the patient. This critical care time included obtaining a history; examining the patient; pulse oximetry; ordering and review of studies; arranging urgent treatment with development of a management plan; evaluation of patient's response to treatment; frequent reassessment; and discussions with other providers. It was exclusive of separately billable procedures and treating other patients and teaching time. Please see Assessment and Plan section and the rest of the note for further information on patient assessment and treatment Subjective Date/time seen: 08/30/24 Patient continues to be on mechanical ventilation 100% FiO2 and 10 of PEEP. He was dialyzed yesterday and 3 L fluid was removed. Patient is on 2 mics of Levophed this morning. He is NPO. He is awake and alert and states that he feels better this morning. Denies any pain. He states his breathing is better. Review of Systems Review of Systems: ROS unobtainable: Yes unobtainable due to endotracheal tube Exam Narrative: General: Pt is ill-appearing gentleman who appears older than his age. He is awake follows command and is in no distress Lungs/Chest: Decreased bilateral breath sounds overall occasional crackles and decreased breath sound at bases, Cardiac: RRR. Normal S1 S2. No murmurs Circulation: Feet are well Abdomen: Decreased bowel sounds. Morbid Obese. Soft. NT. ND. 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 : Hay in place Neurologic: Awake follows commands with all 4 extremities PERRL Objective Data Vital Signs Vital Signs: Vital Signs - 24 hr 08/29/24 12:13 08/29/24 13:45 08/29/24 13:48 Temperature Pulse Rate Respiratory Rate Blood Pressure 80/50 L Pulse Oximetry 77 L 80 L Oxygen Delivery High Flow Therapy with Tr High Flow Therapy with Tr Oxygen Flow Rate 45 60 Fraction of Inspired Oxygen 80 95 08/29/24 14:25 08/29/24 14:25 08/29/24 14:30 Temperature Pulse Rate 69 69 67 Respiratory Rate 12 Blood Pressure 73/54 L 59/51 L Pulse Oximetry 100 Oxygen Delivery Oxygen Flow Rate Fraction of Inspired Oxygen 08/29/24 14:30 08/29/24 14:40 08/29/24 14:45 Temperature Pulse Rate 67 67 Respiratory Rate 18 Blood Pressure 136/77 147/80 H Pulse Oximetry 85 L Oxygen Delivery Mechanical Ventilation Oxygen Flow Rate Fraction of Inspired Oxygen 100 08/29/24 14:55 08/29/24 15:00 08/29/24 15:00 Temperature Pulse Rate 74 68 Respiratory Rate 18 Blood Pressure 161/79 H Pulse Oximetry 88 L 88 L Oxygen Delivery Mechanical Ventilation Oxygen Flow Rate Fraction of Inspired Oxygen 100 100 08/29/24 15:15 08/29/24 15:30 08/29/24 15:36 Temperature Pulse Rate 69 70 Respiratory Rate 15 Blood Pressure 154/82 H 125/68 Pulse Oximetry 92 Oxygen Delivery Mechanical Ventilation Oxygen Flow Rate Fraction of Inspired Oxygen 100 08/29/24 15:45 08/29/24 16:00 08/29/24 16:00 Temperature 36.6 C Pulse Rate 67 67 Respiratory Rate 17 Blood Pressure 136/94 H 134/66 Pulse Oximetry 96 Oxygen Delivery Mechanical Ventilation Oxygen Flow Rate Fraction of Inspired Oxygen 100 08/29/24 16:00 08/29/24 16:34 08/29/24 16:48 Temperature Pulse Rate 68 61 68 Respiratory Rate Blood Pressure 144/80 H 135/75 Pulse Oximetry Oxygen Delivery Oxygen Flow Rate Fraction of Inspired Oxygen 08/29/24 16:50 08/29/24 18:00 08/29/24 18:00 Temperature Pulse Rate 64 65 65 Respiratory Rate Blood Pressure 120/71 Pulse Oximetry 96 Oxygen Delivery Mechanical Ventilation Oxygen Flow Rate Fraction of Inspired Oxygen 100 08/29/24 18:00 08/29/24 18:00 08/29/24 19:15 Temperature 37.0 C Pulse Rate 65 65 61 Respiratory Rate 19 20 Blood Pressure 120/71 126/65 Pulse Oximetry 96 94 Oxygen Delivery Oxygen Flow Rate Fraction of Inspired Oxygen 08/29/24 19:23 08/29/24 19:30 08/29/24 19:45 Temperature Pulse Rate 57 L 58 L 58 L Respiratory Rate Blood Pressure 123/70 141/78 H 121/62 Pulse Oximetry Oxygen Delivery Oxygen Flow Rate Fraction of Inspired Oxygen 08/29/24 20:00 08/29/24 20:00 08/29/24 20:00 Temperature Pulse Rate 69 Respiratory Rate Blood Pressure Pulse Oximetry Oxygen Delivery Mechanical Ventilation Oxygen Flow Rate Fraction of Inspired Oxygen 100 100 08/29/24 20:00 08/29/24 20:00 08/29/24 20:00 Temperature 37.1 C Pulse Rate 70 66 58 L Respiratory Rate 22 H Blood Pressure 113/75 113/75 113/75 Pulse Oximetry 94 Oxygen Delivery Oxygen Flow Rate Fraction of Inspired Oxygen 08/29/24 20:15 08/29/24 20:30 08/29/24 20:45 Temperature Pulse Rate 62 64 62 Respiratory Rate Blood Pressure 128/65 129/68 132/77 Pulse Oximetry Oxygen Delivery Oxygen Flow Rate Fraction of Inspired Oxygen 08/29/24 20:46 08/29/24 21:00 08/29/24 21:00 Temperature Pulse Rate 62 60 63 Respiratory Rate Blood Pressure 121/67 121/67 Pulse Oximetry 96 Oxygen Delivery Mechanical Ventilation Oxygen Flow Rate Fraction of Inspired Oxygen 100 08/29/24 21:15 08/29/24 21:30 08/29/24 21:45 Temperature Pulse Rate 60 58 L 58 L Respiratory Rate Blood Pressure 115/70 117/76 112/62 Pulse Oximetry Oxygen Delivery Oxygen Flow Rate Fraction of Inspired Oxygen 08/29/24 22:00 08/29/24 22:00 08/29/24 22:00 Temperature Pulse Rate 56 L 55 L 56 L Respiratory Rate 18 Blood Pressure 95/59 L 95/59 L Pulse Oximetry 100 Oxygen Delivery Oxygen Flow Rate Fraction of Inspired Oxygen 08/29/24 22:00 08/29/24 22:15 08/29/24 22:24 Temperature Pulse Rate 56 L 60 66 Respiratory Rate Blood Pressure 95/59 L 113/66 117/76 Pulse Oximetry Oxygen Delivery Oxygen Flow Rate Fraction of Inspired Oxygen 08/29/24 22:45 08/29/24 23:00 08/29/24 23:16 Temperature 36.9 C Pulse Rate 59 L 61 61 Respiratory Rate 20 Blood Pressure 114/66 100/59 L Pulse Oximetry 100 99 Oxygen Delivery Mechanical Ventilation Oxygen Flow Rate Fraction of Inspired Oxygen 100 08/29/24 23:54 08/29/24 23:58 08/30/24 00:00 Temperature Pulse Rate 59 L Respiratory Rate Blood Pressure 123/65 Pulse Oximetry Oxygen Delivery Mechanical Ventilation Oxygen Flow Rate Fraction of Inspired Oxygen 100 100 08/30/24 00:00 08/30/24 00:00 08/30/24 00:15 Temperature 36.7 C Pulse Rate 57 L 58 L 57 L Respiratory Rate 22 H Blood Pressure 123/65 111/64 Pulse Oximetry 99 Oxygen Delivery Oxygen Flow Rate Fraction of Inspired Oxygen 08/30/24 01:00 08/30/24 02:00 08/30/24 02:00 Temperature Pulse Rate 56 L 57 L 58 L Respiratory Rate Blood Pressure 100/64 118/67 Pulse Oximetry Oxygen Delivery Oxygen Flow Rate Fraction of Inspired Oxygen 08/30/24 02:00 08/30/24 02:15 08/30/24 03:00 Temperature 36.8 C Pulse Rate 58 L 56 L 56 L Respiratory Rate 22 H Blood Pressure 118/67 98/68 L 112/67 Pulse Oximetry 99 Oxygen Delivery Oxygen Flow Rate Fraction of Inspired Oxygen 08/30/24 03:17 08/30/24 04:00 08/30/24 04:00 Temperature 36.8 C Pulse Rate 57 L 88 54 L Respiratory Rate 22 H Blood Pressure 111/67 Pulse Oximetry 100 96 Oxygen Delivery Mechanical Ventilation Oxygen Flow Rate Fraction of Inspired Oxygen 100 08/30/24 04:00 08/30/24 04:00 08/30/24 04:00 Temperature Pulse Rate 55 L Respiratory Rate Blood Pressure 111/67 Pulse Oximetry Oxygen Delivery Mechanical Ventilation Oxygen Flow Rate Fraction of Inspired Oxygen 100 100 08/30/24 04:15 08/30/24 05:00 08/30/24 05:23 Temperature Pulse Rate 55 L 68 65 Respiratory Rate Blood Pressure 106/66 104/74 Pulse Oximetry 96 Oxygen Delivery Mechanical Ventilation Oxygen Flow Rate Fraction of Inspired Oxygen 100 08/30/24 06:00 08/30/24 06:00 08/30/24 06:00 Temperature Pulse Rate 58 L 58 L 58 L Respiratory Rate 21 H Blood Pressure 102/74 102/74 Pulse Oximetry 97 Oxygen Delivery Oxygen Flow Rate Fraction of Inspired Oxygen 08/30/24 07:00 08/30/24 08:00 08/30/24 09:21 Temperature 36.5 C Pulse Rate 58 L 61 56 L Respiratory Rate 21 H Blood Pressure 105/70 109/86 Pulse Oximetry 100 99 Oxygen Delivery Mechanical Ventilation Oxygen Flow Rate Fraction of Inspired Oxygen 90 08/30/24 10:00 Temperature Pulse Rate 56 L Respiratory Rate 20 Blood Pressure 96/65 L Pulse Oximetry 99 Oxygen Delivery Oxygen Flow Rate Fraction of Inspired Oxygen Intake/Output Intake/Output: Intake & Output 08/27/24 08/28/24 08/29/24 08/30/24 23:59 23:59 23:59 23:59 Intake Total 240 860 967.4 61.8 Output Total 0 3000 0 Balance 240 860 -2032.6 61.8 Meds/Results Medications: Active Medications Generic Name Dose Route Start Last Admin Trade Name Freq PRN Reason Stop Dose Admin Acetaminophen 650 mg 08/27/24 15:58 Acetaminophen 325 Mg Tablet PO Q4H PRN Mild Pain (1-3) or Fever Dextrose 12.5 gm 08/27/24 23:31 08/30/24 07:50 Dextrose 50% 25 Gm/50 Ml Syringe IV PUSH 12.5 gm PRN PRN Administration Hypoglycemia Protocol Enoxaparin Sodium 30 mg 08/30/24 09:00 08/30/24 09:05 Enoxaparin 30 Mg/0.3 Ml Syringe SUB-Q 30 mg DAILY ISELA Administration Glucagon 1 mg 08/27/24 23:31 Glucagon For Inj 1 Mg Vial IM PRN PRN Hypoglycemia Protocol Glucose 15 gm 08/27/24 23:31 Glucose Oral Gel 15 Gm Of Glucse In 37.5 Gm Tube PO PRN PRN Hypoglycemia Protocol Dextrose 1,000 mls @ 100 mls/hr 08/27/24 23:31 Dextrose 5% 1,000 Ml IVPB PRN PRN Hypoglycemia Protocol Albumin Human 50 mls @ 999 mls/hr 08/28/24 01:42 08/28/24 12:30 Albutein IVPB 09/27/24 01:41 Infused Q10M PRN Infusion HYPOTENSION Ceftriaxone Sodium 2 gm in 100 mls @ 200 mls/hr 08/29/24 09:00 08/30/24 09:04 Rocephin 2 Gm/Ns 100 Ml IVPB 200 mls/hr Q24H ISELA Administration Azithromycin 500 mg in 250 mls @ 250 mls/hr 08/29/24 09:00 08/30/24 09:05 Zithromax IVPB 250 mls/hr Q24H ISELA Administration Norepinephrine Bitartrate 8 mg in 250 mls @ 9.375 mls/hr 08/29/24 14:25 08/30/24 07:00 Levophed 8 Mg/D5w 250 Ml IV CONT 3 mcg/min .Q24H ISELA 5.63 mls/hr Titration Protocol 5 MCG/MIN Insulin Aspart 3 - 6 units 08/29/24 17:00 08/30/24 09:06 Insulin Aspart (*Bkc) 100 Units/Ml SUB-Q Not Given Q4HR ISELA Protocol Levothyroxine Sodium 75 mcg 08/28/24 06:30 08/30/24 05:15 Levothyroxine Sodium 75 Mcg Tablet PO Not Given DAILY@0630 [facility] Levothyroxine Sodium 100 mcg 08/28/24 06:30 08/30/24 05:15 Levothyroxine Sodium 100 Mcg Tablet PO Not Given DAILY@0630 [facility] Midodrine 10 mg 08/29/24 08:00 08/30/24 09:06 Midodrine Hcl 10 Mg Tablet PO 10 mg TID ISELA Administration Pantoprazole Sodium 40 mg 08/30/24 09:00 08/30/24 09:06 Pantoprazole Sodium Iv 40 Mg Vial IV PUSH 40 mg QAM ISELA Administration Pravastatin Sodium 40 mg 08/28/24 09:00 08/30/24 09:05 Pravastatin Sodium 20 Mg Tablet PO 40 mg DAILY ISELA Administration Sevelamer Carbonate 1,600 mg 08/28/24 08:00 08/30/24 09:05 Sevelamer Carbonate 800 Mg Tablet PO Not Given TIDWM ISELA Sodium Chloride 10 ml 08/29/24 22:00 08/30/24 05:15 Central Line Flush IV PUSH 10 ml Q8HR ISELA Administration Sodium Chloride 20 ml 08/29/24 17:00 08/29/24 23:07 Central Line Flush IV PUSH 10 ml PRN PRN Administration after blood draws Vancomycin HCl 1 each 08/29/24 16:03 Vancomycin For Hemodialysis IVPB PRN PRN Vancomycin Protocol Radiology Results: ITS Impressions Abdomen X-Ray 08/30/24 09:26 IMPRESSION: 1: NG tube coiled in the stomach. Labs Labs: Laboratory Results - last 24 hr 08/29/24 08/29/24 08/29/24 11:33 13:45 13:53 WBC RBC Hgb Hct MCV MCH MCHC RDW Plt Count MPV Immature Gran % (Auto) Neut % (Auto) Lymph % (Auto) Jennings % (Auto) Eos % (Auto) Baso % (Auto) Lymph # (Auto) Jennings # (Auto) Eos # (Auto) Baso # (Auto) Abs Immat Gran (auto) Absolute Neuts (auto) Absolute Nucleated RBC Nucleated RBC % Puncture Site Left radial ABG pH 7.187 L* ABG pCO2 63.5 H* ABG pO2 66.0 L ABG PO2/FiO2 Ratio 0.66 ABG HCO3 23.5 ABG O2 Saturation 87.5 L* ABG O2 Content 15.4 L ABG Base Excess -5.5 A-a Gradient 583.5 Oxyhemoglobin 87.9 L Carboxyhemoglobin Methemoglobin Reduced Hemoglobin Total Hemoglobin 12.4 O2 Delivery Device Ventilator O2 Liters/Min Not Reportable Minute Volume Not Reportable Vent Rate 18 Vent Mode Cmv FiO2 100 Tidal Volume 300 PEEP 10 Peak Inspir Pressure Not Reportable Pressure Support Not Reportable Sodium Potassium Chloride Carbon Dioxide Anion Gap BUN Creatinine Estim Creat Clear Calc Estimated GFR Glucose POC Capillary Glucose 90 114 H Lactic Acid Calcium Phosphorus Magnesium Total Bilirubin AST ALT Alkaline Phosphatase Troponin I NT-Pro-B Natriuret Pep Total Protein Albumin Procalcitonin TSH (Reflex) Free T4 Total T3 Nasal MRSA (PCR) Influenza A (RT-PCR) Influenza B (RT-PCR) RSV Antigen RSV (RT-PCR) SARS-CoV-2 RNA (RT-PCR) 08/29/24 08/29/24 08/29/24 15:51 15:51 15:52 WBC 6.2 RBC 3.31 L Hgb 11.3 L Hct 37.3 L MCV 112.7 H MCH 34.1 H MCHC 30.3 L RDW 14.8 H Plt Count 156 MPV 11.1 H Immature Gran % (Auto) Neut % (Auto) Lymph % (Auto) Jennings % (Auto) Eos % (Auto) Baso % (Auto) Lymph # (Auto) Jennings # (Auto) Eos # (Auto) Baso # (Auto) Abs Immat Gran (auto) Absolute Neuts (auto) Absolute Nucleated RBC Nucleated RBC % Puncture Site ABG pH ABG pCO2 ABG pO2 ABG PO2/FiO2 Ratio ABG HCO3 ABG O2 Saturation ABG O2 Content ABG Base Excess A-a Gradient Oxyhemoglobin Carboxyhemoglobin Methemoglobin Reduced Hemoglobin Total Hemoglobin O2 Delivery Device O2 Liters/Min Minute Volume Vent Rate Vent Mode FiO2 Tidal Volume PEEP Peak Inspir Pressure Pressure Support Sodium 138 Potassium 4.4 Chloride 97 L Carbon Dioxide 31 H Anion Gap 10 BUN 38 H Creatinine 5.33 H Estim Creat Clear Calc 17 Estimated GFR 11 L Glucose 112 H POC Capillary Glucose Lactic Acid Calcium 9.0 Phosphorus Magnesium 2.3 Total Bilirubin 0.7 AST 21 ALT 14 Alkaline Phosphatase 92 Troponin I 0.050 H* NT-Pro-B Natriuret Pep > 95789 H Cancelled Total Protein 7.0 Albumin 4.3 Procalcitonin 0.6 TSH (Reflex) > 100.000 H Free T4 0.98 Total T3 0.48 L Nasal MRSA (PCR) Not detected Influenza A (RT-PCR) Negative Influenza B (RT-PCR) Negative RSV Antigen Cancelled RSV (RT-PCR) Negative SARS-CoV-2 RNA (RT-PCR) Negative 08/29/24 08/29/24 08/29/24 15:57 16:51 17:00 WBC RBC Hgb Hct MCV MCH MCHC RDW Plt Count MPV Immature Gran % (Auto) Neut % (Auto) Lymph % (Auto) Jennings % (Auto) Eos % (Auto) Baso % (Auto) Lymph # (Auto) Jennings # (Auto) Eos # (Auto) Baso # (Auto) Abs Immat Gran (auto) Absolute Neuts (auto) Absolute Nucleated RBC Nucleated RBC % Puncture Site Left radial ABG pH 7.218 L* ABG pCO2 58.0 H ABG pO2 79.1 L ABG PO2/FiO2 Ratio 0.79 ABG HCO3 23.1 ABG O2 Saturation 93.0 L ABG O2 Content 16.1 ABG Base Excess -5.2 A-a Gradient 575.9 Oxyhemoglobin 93.2 Carboxyhemoglobin Methemoglobin Reduced Hemoglobin Total Hemoglobin 12.2 O2 Delivery Device Ventilator O2 Liters/Min Not Reportable Minute Volume Not Reportable Vent Rate 20 Vent Mode Cmv FiO2 100 Tidal Volume 350 PEEP 10 Peak Inspir Pressure Not Reportable Pressure Support Not Reportable Sodium Potassium Chloride Carbon Dioxide Anion Gap BUN Creatinine Estim Creat Clear Calc Estimated GFR Glucose POC Capillary Glucose 100 Lactic Acid 0.8 Calcium Phosphorus Magnesium Total Bilirubin AST ALT Alkaline Phosphatase Troponin I NT-Pro-B Natriuret Pep Total Protein Albumin Procalcitonin TSH (Reflex) Free T4 Total T3 Nasal MRSA (PCR) Influenza A (RT-PCR) Influenza B (RT-PCR) RSV Antigen RSV (RT-PCR) SARS-CoV-2 RNA (RT-PCR) 08/29/24 08/29/24 08/30/24 20:01 23:58 04:08 WBC RBC Hgb Hct MCV MCH MCHC RDW Plt Count MPV Immature Gran % (Auto) Neut % (Auto) Lymph % (Auto) Jennings % (Auto) Eos % (Auto) Baso % (Auto) Lymph # (Auto) Jennings # (Auto) Eos # (Auto) Baso # (Auto) Abs Immat Gran (auto) Absolute Neuts (auto) Absolute Nucleated RBC Nucleated RBC % Puncture Site ABG pH ABG pCO2 ABG pO2 ABG PO2/FiO2 Ratio ABG HCO3 ABG O2 Saturation ABG O2 Content ABG Base Excess A-a Gradient Oxyhemoglobin Carboxyhemoglobin Methemoglobin Reduced Hemoglobin Total Hemoglobin O2 Delivery Device O2 Liters/Min Minute Volume Vent Rate Vent Mode FiO2 Tidal Volume PEEP Peak Inspir Pressure Pressure Support Sodium Potassium Chloride Carbon Dioxide Anion Gap BUN Creatinine Estim Creat Clear Calc Estimated GFR Glucose POC Capillary Glucose 91 116 H 78 Lactic Acid Calcium Phosphorus Magnesium Total Bilirubin AST ALT Alkaline Phosphatase Troponin I NT-Pro-B Natriuret Pep Total Protein Albumin Procalcitonin TSH (Reflex) Free T4 Total T3 Nasal MRSA (PCR) Influenza A (RT-PCR) Influenza B (RT-PCR) RSV Antigen RSV (RT-PCR) SARS-CoV-2 RNA (RT-PCR) 08/30/24 08/30/24 08/30/24 04:45 05:22 07:40 WBC 6.2 RBC 3.26 L Hgb 11.2 L Hct 36.1 L MCV 110.7 H MCH 34.4 H MCHC 31.0 L RDW 14.9 H Plt Count 174 MPV 11.5 H Immature Gran % (Auto) 0.5 Neut % (Auto) 69.4 Lymph % (Auto) 12.0 L Jennings % (Auto) 14.7 H Eos % (Auto) 1.6 Baso % (Auto) 1.8 H Lymph # (Auto) 0.74 L Jennings # (Auto) 0.9 H Eos # (Auto) 0.1 Baso # (Auto) 0.1 Abs Immat Gran (auto) 0.03 Absolute Neuts (auto) 4.3 Absolute Nucleated RBC 0.030 H Nucleated RBC % 0.5 H Puncture Site Left radial ABG pH 7.314 L ABG pCO2 46.3 H ABG pO2 109.5 H ABG PO2/FiO2 Ratio 1.10 ABG HCO3 23.0 ABG O2 Saturation 97.6 ABG O2 Content 16.5 ABG Base Excess -3.3 A-a Gradient 557.2 Oxyhemoglobin 97.5 Carboxyhemoglobin 0.5 Methemoglobin 0.3 Reduced Hemoglobin 1.7 Total Hemoglobin 11.9 L O2 Delivery Device Ventilator O2 Liters/Min Not Reportable Minute Volume Not Reportable Vent Rate 20 Vent Mode Cmv FiO2 100 Tidal Volume 350 PEEP 10 Peak Inspir Pressure Not Reportable Pressure Support Not Reportable Sodium 138 Potassium 4.3 Chloride 97 L Carbon Dioxide 27 Anion Gap 14 H BUN 43 H Creatinine 5.82 H Estim Creat Clear Calc 15 Estimated GFR 10 L Glucose 83 POC Capillary Glucose 65 Lactic Acid Calcium 9.1 Phosphorus 4.7 H Magnesium 2.3 Total Bilirubin 0.7 AST 20 ALT 13 Alkaline Phosphatase 88 Troponin I NT-Pro-B Natriuret Pep Total Protein 7.0 Albumin 4.0 Procalcitonin TSH (Reflex) Free T4 Total T3 Nasal MRSA (PCR) Influenza A (RT-PCR) Influenza B (RT-PCR) RSV Antigen RSV (RT-PCR) SARS-CoV-2 RNA (RT-PCR) 08/30/24 08/30/24 07:42 08:08 WBC RBC Hgb Hct MCV MCH MCHC RDW Plt Count MPV Immature Gran % (Auto) Neut % (Auto) Lymph % (Auto) Jennings % (Auto) Eos % (Auto) Baso % (Auto) Lymph # (Auto) Jennings # (Auto) Eos # (Auto) Baso # (Auto) Abs Immat Gran (auto) Absolute Neuts (auto) Absolute Nucleated RBC Nucleated RBC % Puncture Site ABG pH ABG pCO2 ABG pO2 ABG PO2/FiO2 Ratio ABG HCO3 ABG O2 Saturation ABG O2 Content ABG Base Excess A-a Gradient Oxyhemoglobin Carboxyhemoglobin Methemoglobin Reduced Hemoglobin Total Hemoglobin O2 Delivery Device O2 Liters/Min Minute Volume Vent Rate Vent Mode FiO2 Tidal Volume PEEP Peak Inspir Pressure Pressure Support Sodium Potassium Chloride Carbon Dioxide Anion Gap BUN Creatinine Estim Creat Clear Calc Estimated GFR Glucose POC Capillary Glucose 68 113 H Lactic Acid Calcium Phosphorus Magnesium Total Bilirubin AST ALT Alkaline Phosphatase Troponin I NT-Pro-B Natriuret Pep Total Protein Albumin Procalcitonin TSH (Reflex) Free T4 Total T3 Nasal MRSA (PCR) Influenza A (RT-PCR) Influenza B (RT-PCR) RSV Antigen RSV (RT-PCR) SARS-CoV-2 RNA (RT-PCR) Quality VTE Prophylaxis VTE prophylaxis: mechanical ordered and pharmacologic ordered
[2024-08-30 10:25] LABS: Vancomycin Random 19.6 ug/mL (10-20)
[2024-08-30] MEDS: PIPERACILLIN/TAZ 2.25G/NS 50ML 2.25 GM/50 ML BAG IVPB ×2 (11:23→18:10)
[2024-08-30 11:36] LABS: Glucose Point of Care 71 mg/dl (65-105)
--- NOTE | 2024-08-30 12:33 | P.PNIM_ITS ---
Progress Note: A&P Assessment and Plan (1) Acute on chronic respiratory failure with hypoxia and hypercapnia: Code(s): J96.21 - Acute and chronic respiratory failure with hypoxia; J96.22 - Acute and chronic respiratory failure with hypercapnia Status: Acute Assessment and Plan: Patient developed acute on chronic respiratory failure secondary to possible mucous plugging, pulmonary edema, possible pneumonia, obesity hypoventilation, chronic respiratory failure, laryngeal cancer status post laryngectomy and laryngeal tube placement. CXR on admission showing RLL and LML/LLL airspace disease that progressed to an almost complete white out left lung His laryngeal tube could not be attached to ventilator or BiPAP so an emergent ET tube was inserted through the laryngeal tube to secure airway and attached to mechanical ventilation. Continue HD to control fluid status ENT consult for a more secure airway. BCx NGTD. Sputum Cx pending. Continue current ventilator settings with permissive hypercapnia. Wean FiO2 Continue empiric antibiotic therapy for pneumonia Vent management per helpdesk manager. Appreciate their input. (2) Sepsis: Code(s): A41.9 - Sepsis, unspecified organism Status: Acute Assessment and Plan: Consider sepsis but afebrile with normal WBC. CXR showing worsening left lung field infiltrates. Consider pulmonary edema and/or PNA (possibly aspiration) Procal 0.6. WBC low-normal (but he never phani a leukocytosis in the past). Was on Rocephin and Azithromycin but changed to Zosyn. BCx NGTD. MRSA screen negative. Sputum Cx pending. Continue abx. Follow up on Cx. (3) Hypotension: Code(s): I95.9 - Hypotension, unspecified Status: Acute Assessment and Plan: Patient developed acute respiratory failure and HoTN on the medical floor. Rn Dermatology was consulted and patient moved to ICU. HoTN could be related to hypoxia, acidosis, sepsis/PNA Patient was started on Levophed. Wean Levophed as toelrated. (4) Pulmonary edema: Code(s): J81.1 - Chronic pulmonary edema Status: Acute Assessment and Plan: Patient with fluid overload and pulmonary edema. Echo from May 2023 showing EF 50-55% and Grade I diastolic dysfunction BNP >30K. Troponin elevated to 0.05. EKG showing sinus rhythm, first degree AVB, iRBBB, possible RVH, possible anterior AK and nonspecific ST and T wave changes Continue to use dialysis to control fluid status. Repeat Echo (5) Diabetes: Code(s): E11.9 - Type 2 diabetes mellitus without complications Status: Acute Assessment and Plan: The patient's blood glucose was reviewed on 08/30 Glucose remains well controlled. Continue AccuCheks covering with sliding scale. Hypoglycemia protocol available as needed. Continue to monitor (6) Hypothyroidism: Code(s): E03.9 - Hypothyroidism, unspecified Status: Acute Assessment and Plan: TSH >100 with low-normal FT4 0.98. Continue levothyroxine and plan to repeat labs later this admission. (7) 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 - Tracheostomy status Status: Acute Assessment and Plan: Patient with laryngeal cancer status post laryngectomy and laryngeal tube placement. As above (8) End-stage renal disease on hemodialysis: Code(s): N18.6 - End stage renal disease; Z99.2 - Dependence on renal dialysis Status: Acute Assessment and Plan: Patient was dialyzed yesterday and will be dialyzed again today with goal to try to remove fluid to improve fluid status. (9) Generalized edema: Code(s): R60.1 - Generalized edema Status: Acute Assessment and Plan: See above Plan DVT prophylaxis -Lovenox Stress ulcer prophylaxis -PPI Code Status - Full Code Subjective Date/time seen: 08/30/24 12:33 Interval history: 59yo male with ESRD, laryngeal cancer status post partial laryngectomy and is trach dependent, obesity hypoventilation syndrome, SUE, right-sided heart failure, DM, HTN, HLD and hypothyroidism who presented to the emergency department via EMS from home in need of dialysis. He was recently discharged from [facility] following cuff tracheostomy and he has been on oxygen since that time. Patient currently intubated via trach and sedated. He is arousable. He did receive hemodialysis last night Review of Systems Review of Systems: ROS unobtainable: Yes unobtainable due to endotracheal tube Exam Narrative: AF 97.8 120/71 58 23 99% MV Gen - intubated via trach, appears comfortable HEENT - NGT secured. Neck Trach midline and connected to MV Chest - coarse BS CV - bradycardic; Tele showing sinus mariela, PACs and PVCs. Abd - soft, +BS, distended but not tympinitic. flank and abd wall edema. Ext - right great toe amp. cool to touch. pitting bilateral LE edema. Neuro - arouses. Follows commands. Skin - purple discoloration to bilateral LE with multiple dried eschars as well as dried plantar calluses Objective Data Vital Signs Vital Signs: Vital Signs - 24 hr 08/29/24 13:45 08/29/24 13:48 08/29/24 14:25 Temperature Pulse Rate 69 Respiratory Rate 12 Blood Pressure 73/54 L Pulse Oximetry 77 L 80 L 100 Oxygen Delivery High Flow Therapy with Tr High Flow Therapy with Tr Oxygen Flow Rate 45 60 Fraction of Inspired Oxygen 80 95 08/29/24 14:25 08/29/24 14:30 08/29/24 14:30 Temperature Pulse Rate 69 67 Respiratory Rate Blood Pressure 59/51 L Pulse Oximetry Oxygen Delivery Mechanical Ventilation Oxygen Flow Rate Fraction of Inspired Oxygen 100 08/29/24 14:40 08/29/24 14:45 08/29/24 14:55 Temperature Pulse Rate 67 67 74 Respiratory Rate 18 Blood Pressure 136/77 147/80 H Pulse Oximetry 85 L 88 L Oxygen Delivery Mechanical Ventilation Oxygen Flow Rate Fraction of Inspired Oxygen 100 08/29/24 15:00 08/29/24 15:00 08/29/24 15:15 Temperature Pulse Rate 68 69 Respiratory Rate 18 15 Blood Pressure 161/79 H 154/82 H Pulse Oximetry 88 L 92 Oxygen Delivery Oxygen Flow Rate Fraction of Inspired Oxygen 100 08/29/24 15:30 08/29/24 15:36 08/29/24 15:45 Temperature Pulse Rate 70 67 Respiratory Rate Blood Pressure 125/68 136/94 H Pulse Oximetry Oxygen Delivery Mechanical Ventilation Oxygen Flow Rate Fraction of Inspired Oxygen 100 08/29/24 16:00 08/29/24 16:00 08/29/24 16:00 Temperature 97.8 F Pulse Rate 67 68 Respiratory Rate 17 Blood Pressure 134/66 Pulse Oximetry 96 Oxygen Delivery Mechanical Ventilation Oxygen Flow Rate Fraction of Inspired Oxygen 100 08/29/24 16:34 08/29/24 16:48 08/29/24 16:50 Temperature Pulse Rate 61 68 64 Respiratory Rate Blood Pressure 144/80 H 135/75 Pulse Oximetry 96 Oxygen Delivery Mechanical Ventilation Oxygen Flow Rate Fraction of Inspired Oxygen 100 08/29/24 18:00 08/29/24 18:00 08/29/24 18:00 Temperature Pulse Rate 65 65 65 Respiratory Rate 19 Blood Pressure 120/71 120/71 Pulse Oximetry 96 Oxygen Delivery Oxygen Flow Rate Fraction of Inspired Oxygen 08/29/24 18:00 08/29/24 19:15 08/29/24 19:23 Temperature 98.6 F Pulse Rate 65 61 57 L Respiratory Rate 20 Blood Pressure 126/65 123/70 Pulse Oximetry 94 Oxygen Delivery Oxygen Flow Rate Fraction of Inspired Oxygen 08/29/24 19:30 08/29/24 19:45 08/29/24 20:00 Temperature Pulse Rate 58 L 58 L 69 Respiratory Rate Blood Pressure 141/78 H 121/62 Pulse Oximetry Oxygen Delivery Oxygen Flow Rate Fraction of Inspired Oxygen 08/29/24 20:00 08/29/24 20:00 08/29/24 20:00 Temperature Pulse Rate 70 Respiratory Rate Blood Pressure 113/75 Pulse Oximetry Oxygen Delivery Mechanical Ventilation Oxygen Flow Rate Fraction of Inspired Oxygen 100 100 08/29/24 20:00 08/29/24 20:00 08/29/24 20:15 Temperature 98.7 F Pulse Rate 66 58 L 62 Respiratory Rate 22 H Blood Pressure 113/75 113/75 128/65 Pulse Oximetry 94 Oxygen Delivery Oxygen Flow Rate Fraction of Inspired Oxygen 08/29/24 20:30 08/29/24 20:45 08/29/24 20:46 Temperature Pulse Rate 64 62 62 Respiratory Rate Blood Pressure 129/68 132/77 Pulse Oximetry 96 Oxygen Delivery Mechanical Ventilation Oxygen Flow Rate Fraction of Inspired Oxygen 100 08/29/24 21:00 08/29/24 21:00 08/29/24 21:15 Temperature Pulse Rate 60 63 60 Respiratory Rate Blood Pressure 121/67 121/67 115/70 Pulse Oximetry Oxygen Delivery Oxygen Flow Rate Fraction of Inspired Oxygen 08/29/24 21:30 08/29/24 21:45 08/29/24 22:00 Temperature Pulse Rate 58 L 58 L 56 L Respiratory Rate Blood Pressure 117/76 112/62 95/59 L Pulse Oximetry Oxygen Delivery Oxygen Flow Rate Fraction of Inspired Oxygen 08/29/24 22:00 08/29/24 22:00 08/29/24 22:00 Temperature Pulse Rate 55 L 56 L 56 L Respiratory Rate 18 Blood Pressure 95/59 L 95/59 L Pulse Oximetry 100 Oxygen Delivery Oxygen Flow Rate Fraction of Inspired Oxygen 08/29/24 22:15 08/29/24 22:24 08/29/24 22:45 Temperature 98.4 F Pulse Rate 60 66 59 L Respiratory Rate 20 Blood Pressure 113/66 117/76 114/66 Pulse Oximetry 100 Oxygen Delivery Oxygen Flow Rate Fraction of Inspired Oxygen 08/29/24 23:00 08/29/24 23:16 08/29/24 23:54 Temperature Pulse Rate 61 61 Respiratory Rate Blood Pressure 100/59 L Pulse Oximetry 99 Oxygen Delivery Mechanical Ventilation Mechanical Ventilation Oxygen Flow Rate Fraction of Inspired Oxygen 100 100 08/29/24 23:58 08/30/24 00:00 08/30/24 00:00 Temperature 98.0 F Pulse Rate 59 L 57 L Respiratory Rate 22 H Blood Pressure 123/65 123/65 Pulse Oximetry 99 Oxygen Delivery Oxygen Flow Rate Fraction of Inspired Oxygen 100 08/30/24 00:00 08/30/24 00:15 08/30/24 01:00 Temperature Pulse Rate 58 L 57 L 56 L Respiratory Rate Blood Pressure 111/64 100/64 Pulse Oximetry Oxygen Delivery Oxygen Flow Rate Fraction of Inspired Oxygen 08/30/24 02:00 08/30/24 02:00 08/30/24 02:00 Temperature 98.2 F Pulse Rate 57 L 58 L 58 L Respiratory Rate 22 H Blood Pressure 118/67 118/67 Pulse Oximetry 99 Oxygen Delivery Oxygen Flow Rate Fraction of Inspired Oxygen 08/30/24 02:15 08/30/24 03:00 08/30/24 03:17 Temperature Pulse Rate 56 L 56 L 57 L Respiratory Rate Blood Pressure 98/68 L 112/67 Pulse Oximetry 100 Oxygen Delivery Mechanical Ventilation Oxygen Flow Rate Fraction of Inspired Oxygen 100 08/30/24 04:00 08/30/24 04:00 08/30/24 04:00 Temperature 98.2 F Pulse Rate 88 54 L Respiratory Rate 22 H Blood Pressure 111/67 Pulse Oximetry 96 Oxygen Delivery Oxygen Flow Rate Fraction of Inspired Oxygen 100 08/30/24 04:00 08/30/24 04:00 08/30/24 04:15 Temperature Pulse Rate 55 L 55 L Respiratory Rate Blood Pressure 111/67 106/66 Pulse Oximetry Oxygen Delivery Mechanical Ventilation Oxygen Flow Rate Fraction of Inspired Oxygen 100 08/30/24 05:00 08/30/24 05:23 08/30/24 06:00 Temperature Pulse Rate 68 65 58 L Respiratory Rate Blood Pressure 104/74 Pulse Oximetry 96 Oxygen Delivery Mechanical Ventilation Oxygen Flow Rate Fraction of Inspired Oxygen 100 08/30/24 06:00 08/30/24 06:00 08/30/24 07:00 Temperature Pulse Rate 58 L 58 L 58 L Respiratory Rate 21 H Blood Pressure 102/74 102/74 105/70 Pulse Oximetry 97 Oxygen Delivery Oxygen Flow Rate Fraction of Inspired Oxygen 08/30/24 08:00 08/30/24 09:21 08/30/24 10:00 Temperature 97.7 F Pulse Rate 61 56 L 56 L Respiratory Rate 21 H 20 Blood Pressure 109/86 96/65 L Pulse Oximetry 100 99 99 Oxygen Delivery Mechanical Ventilation Oxygen Flow Rate Fraction of Inspired Oxygen 90 08/30/24 11:43 08/30/24 12:00 Temperature 97.8 F Pulse Rate 59 L 58 L Respiratory Rate 23 H Blood Pressure 120/71 Pulse Oximetry 100 99 Oxygen Delivery Mechanical Ventilation Oxygen Flow Rate Fraction of Inspired Oxygen 80 Intake/Output Intake/Output: Intake & Output 08/27/24 08/28/24 08/29/24 08/30/24 23:59 23:59 23:59 23:59 Intake Total 240 860 967.4 61.8 Output Total 0 3000 0 Balance 240 860 -2032.6 61.8 Meds/Results Medications: Active Medications Generic Name Dose Route Start Last Admin Trade Name Freq PRN Reason Stop Dose Admin Acetaminophen 650 mg 08/27/24 15:58 Acetaminophen 325 Mg Tablet PO Q4H PRN Mild Pain (1-3) or Fever Dextrose 12.5 gm 08/27/24 23:31 08/30/24 07:50 Dextrose 50% 25 Gm/50 Ml Syringe IV PUSH 12.5 gm PRN PRN Administration Hypoglycemia Protocol Glucagon 1 mg 08/27/24 23:31 Glucagon For Inj 1 Mg Vial IM PRN PRN Hypoglycemia Protocol Glucose 15 gm 08/27/24 23:31 Glucose Oral Gel 15 Gm Of Glucse In 37.5 Gm Tube PO PRN PRN Hypoglycemia Protocol Heparin Sodium (Porcine) 6,500 units 08/30/24 11:51 Heparin Sodium 5,000 Units/Ml Vial IV PUSH PRN PRN aPTT less than 55 seconds Heparin Sodium (Porcine) 3,500 units 08/30/24 11:51 Heparin Sodium 5,000 Units/Ml Vial IV PUSH PRN PRN aPTT 55 - 70 seconds Dextrose 1,000 mls @ 100 mls/hr 08/27/24 23:31 Dextrose 5% 1,000 Ml IVPB PRN PRN Hypoglycemia Protocol Albumin Human 50 mls @ 999 mls/hr 08/28/24 01:42 08/28/24 12:30 Albutein IVPB 09/27/24 01:41 Infused Q10M PRN Infusion HYPOTENSION Azithromycin 500 mg in 250 mls @ 250 mls/hr 08/29/24 09:00 08/30/24 09:05 Zithromax IVPB 09/03/24 08:59 250 mls/hr Q24H ISELA Administration Norepinephrine Bitartrate 8 mg in 250 mls @ 9.375 mls/hr 08/29/24 14:25 08/30/24 07:00 Levophed 8 Mg/D5w 250 Ml IV CONT 3 mcg/min .Q24H ISELA 5.63 mls/hr Titration Protocol 5 MCG/MIN Piperacillin Sod/Tazobactam Sod 2.25 gm in 50 mls @ 100 mls/hr 08/30/24 11:00 08/30/24 11:23 Zosyn 2.25 Gm/Ns 50 Ml IVPB 100 mls/hr Q6HR ISELA Administration Vancomycin HCl 1,000 mg in 250 mls @ 250 mls/hr 08/30/24 20:00 Vancomycin 1,000 Mg/Ns 250 Ml IVPB 08/30/24 20:59 ONCE ONE Heparin Sodium/Dextrose 25,000 units in 250 mls @ 15 mls/hr 08/30/24 11:55 Heparin Sodium/D5w 100 Units/Ml IV CONT .[id number] ISELA Protocol 1,500 UNITS/HR Insulin Aspart 3 - 6 units 08/29/24 17:00 08/30/24 09:06 Insulin Aspart (*Bkc) 100 Units/Ml SUB-Q Not Given Q4HR [facility] Protocol Levothyroxine Sodium 75 mcg 08/28/24 06:30 08/30/24 05:15 Levothyroxine Sodium 75 Mcg Tablet PO Not Given DAILY@0630 [facility] Levothyroxine Sodium 100 mcg 08/28/24 06:30 08/30/24 05:15 Levothyroxine Sodium 100 Mcg Tablet PO Not Given DAILY@0630 [facility] Midodrine 10 mg 08/29/24 08:00 08/30/24 09:06 Midodrine Hcl 10 Mg Tablet PO 10 mg TID ISELA Administration Pantoprazole Sodium 40 mg 08/30/24 09:00 08/30/24 09:06 Pantoprazole Sodium Iv 40 Mg Vial IV PUSH 40 mg QAM ISELA Administration Pravastatin Sodium 40 mg 08/28/24 09:00 08/30/24 09:05 Pravastatin Sodium 20 Mg Tablet PO 40 mg DAILY ISELA Administration Sevelamer Carbonate 1,600 mg 08/28/24 08:00 08/30/24 09:05 Sevelamer Carbonate 800 Mg Tablet PO Not Given TIDWM ISELA Sodium Chloride 10 ml 08/29/24 22:00 08/30/24 05:15 Central Line Flush IV PUSH 10 ml Q8HR ISELA Administration Sodium Chloride 20 ml 08/29/24 17:00 08/29/24 23:07 Central Line Flush IV PUSH 10 ml PRN PRN Administration after blood draws Vancomycin HCl 1 each 08/29/24 16:03 Vancomycin For Hemodialysis IVPB PRN PRN Vancomycin Protocol Radiology Results: ITS Impressions Abdomen X-Ray 08/30/24 09:26 IMPRESSION: 1: NG tube coiled in the stomach. Venous Doppler Study 08/30/24 10:40 IMPRESSION: 1. Bilateral below the knee deep venous thrombosis in the peroneal veins. Findings were discussed with Annabel Macedo, the nurse caring for the patient, at 10:49 AM. Labs Labs: Laboratory Results - last 24 hr 08/29/24 08/29/24 08/29/24 13:45 13:53 15:51 WBC RBC Hgb Hct MCV MCH MCHC RDW Plt Count MPV Immature Gran % (Auto) Neut % (Auto) Lymph % (Auto) [place] % (Auto) Eos % (Auto) Baso % (Auto) Lymph # (Auto) [place] # (Auto) Eos # (Auto) Baso # (Auto) Abs Immat Gran (auto) Absolute Neuts (auto) Absolute Nucleated RBC Nucleated RBC % Puncture Site Left radial ABG pH 7.187 L* ABG pCO2 63.5 H* ABG pO2 66.0 L ABG PO2/FiO2 Ratio 0.66 ABG HCO3 23.5 ABG O2 Saturation 87.5 L* ABG O2 Content 15.4 L ABG Base Excess -5.5 A-a Gradient 583.5 Oxyhemoglobin 87.9 L Carboxyhemoglobin Methemoglobin Reduced Hemoglobin Total Hemoglobin 12.4 O2 Delivery Device Ventilator O2 Liters/Min Not Reportable Minute Volume Not Reportable Vent Rate 18 Vent Mode Cmv FiO2 100 Tidal Volume 300 PEEP 10 Peak Inspir Pressure Not Reportable Pressure Support Not Reportable Sodium 138 Potassium 4.4 Chloride 97 L Carbon Dioxide 31 H Anion Gap 10 BUN 38 H Creatinine 5.33 H Estim Creat Clear Calc 17 Estimated GFR 11 L Glucose 112 H POC Capillary Glucose 114 H Lactic Acid Calcium 9.0 Phosphorus Magnesium 2.3 Total Bilirubin 0.7 AST 21 ALT 14 Alkaline Phosphatase 92 Troponin I 0.050 H* NT-Pro-B Natriuret Pep > 88097 H Total Protein Albumin Procalcitonin TSH (Reflex) Free T4 Total T3 Nasal MRSA (PCR) Random Vancomycin Influenza A (RT-PCR) Influenza B (RT-PCR) RSV Antigen RSV (RT-PCR) SARS-CoV-2 RNA (RT-PCR) 08/29/24 08/29/24 08/29/24 15:51 15:52 15:57 WBC 6.2 RBC 3.31 L Hgb 11.3 L Hct 37.3 L MCV 112.7 H MCH 34.1 H MCHC 30.3 L RDW 14.8 H Plt Count 156 MPV 11.1 H Immature Gran % (Auto) Neut % (Auto) Lymph % (Auto) [place] % (Auto) Eos % (Auto) Baso % (Auto) Lymph # (Auto) [place] # (Auto) Eos # (Auto) Baso # (Auto) Abs Immat Gran (auto) Absolute Neuts (auto) Absolute Nucleated RBC Nucleated RBC % Puncture Site ABG pH ABG pCO2 ABG pO2 ABG PO2/FiO2 Ratio ABG HCO3 ABG O2 Saturation ABG O2 Content ABG Base Excess A-a Gradient Oxyhemoglobin Carboxyhemoglobin Methemoglobin Reduced Hemoglobin Total Hemoglobin O2 Delivery Device O2 Liters/Min Minute Volume Vent Rate Vent Mode FiO2 Tidal Volume PEEP Peak Inspir Pressure Pressure Support Sodium Potassium Chloride Carbon Dioxide Anion Gap BUN Creatinine Estim Creat Clear Calc Estimated GFR Glucose POC Capillary Glucose Lactic Acid 0.8 Calcium Phosphorus Magnesium Total Bilirubin AST ALT Alkaline Phosphatase Troponin I NT-Pro-B Natriuret Pep Cancelled Total Protein 7.0 Albumin 4.3 Procalcitonin 0.6 TSH (Reflex) > 100.000 H Free T4 0.98 Total T3 0.48 L Nasal MRSA (PCR) Not detected Random Vancomycin Influenza A (RT-PCR) Negative Influenza B (RT-PCR) Negative RSV Antigen Cancelled RSV (RT-PCR) Negative SARS-CoV-2 RNA (RT-PCR) Negative 08/29/24 08/29/24 08/29/24 16:51 17:00 20:01 WBC RBC Hgb Hct MCV MCH MCHC RDW Plt Count MPV Immature Gran % (Auto) Neut % (Auto) Lymph % (Auto) [place] % (Auto) Eos % (Auto) Baso % (Auto) Lymph # (Auto) [place] # (Auto) Eos # (Auto) Baso # (Auto) Abs Immat Gran (auto) Absolute Neuts (auto) Absolute Nucleated RBC Nucleated RBC % Puncture Site Left radial ABG pH 7.218 L* ABG pCO2 58.0 H ABG pO2 79.1 L ABG PO2/FiO2 Ratio 0.79 ABG HCO3 23.1 ABG O2 Saturation 93.0 L ABG O2 Content 16.1 ABG Base Excess -5.2 A-a Gradient 575.9 Oxyhemoglobin 93.2 Carboxyhemoglobin Methemoglobin Reduced Hemoglobin Total Hemoglobin 12.2 O2 Delivery Device Ventilator O2 Liters/Min Not Reportable Minute Volume Not Reportable Vent Rate 20 Vent Mode Cmv FiO2 100 Tidal Volume 350 PEEP 10 Peak Inspir Pressure Not Reportable Pressure Support Not Reportable Sodium Potassium Chloride Carbon Dioxide Anion Gap BUN Creatinine Estim Creat Clear Calc Estimated GFR Glucose POC Capillary Glucose 100 91 Lactic Acid Calcium Phosphorus Magnesium Total Bilirubin AST ALT Alkaline Phosphatase Troponin I NT-Pro-B Natriuret Pep Total Protein Albumin Procalcitonin TSH (Reflex) Free T4 Total T3 Nasal MRSA (PCR) Random Vancomycin Influenza A (RT-PCR) Influenza B (RT-PCR) RSV Antigen RSV (RT-PCR) SARS-CoV-2 RNA (RT-PCR) 08/29/24 08/30/24 08/30/24 23:58 04:08 04:45 WBC 6.2 RBC 3.26 L Hgb 11.2 L Hct 36.1 L MCV 110.7 H MCH 34.4 H MCHC 31.0 L RDW 14.9 H Plt Count 174 MPV 11.5 H Immature Gran % (Auto) 0.5 Neut % (Auto) 69.4 Lymph % (Auto) 12.0 L [place] % (Auto) 14.7 H Eos % (Auto) 1.6 Baso % (Auto) 1.8 H Lymph # (Auto) 0.74 L [place] # (Auto) 0.9 H Eos # (Auto) 0.1 Baso # (Auto) 0.1 Abs Immat Gran (auto) 0.03 Absolute Neuts (auto) 4.3 Absolute Nucleated RBC 0.030 H Nucleated RBC % 0.5 H Puncture Site ABG pH ABG pCO2 ABG pO2 ABG PO2/FiO2 Ratio ABG HCO3 ABG O2 Saturation ABG O2 Content ABG Base Excess A-a Gradient Oxyhemoglobin Carboxyhemoglobin Methemoglobin Reduced Hemoglobin Total Hemoglobin O2 Delivery Device O2 Liters/Min Minute Volume Vent Rate Vent Mode FiO2 Tidal Volume PEEP Peak Inspir Pressure Pressure Support Sodium 138 Potassium 4.3 Chloride 97 L Carbon Dioxide 27 Anion Gap 14 H BUN 43 H Creatinine 5.82 H Estim Creat Clear Calc 15 Estimated GFR 10 L Glucose 83 POC Capillary Glucose 116 H 78 Lactic Acid Calcium 9.1 Phosphorus 4.7 H Magnesium 2.3 Total Bilirubin 0.7 AST 20 ALT 13 Alkaline Phosphatase 88 Troponin I NT-Pro-B Natriuret Pep Total Protein 7.0 Albumin 4.0 Procalcitonin TSH (Reflex) Free T4 Total T3 Nasal MRSA (PCR) Random Vancomycin Influenza A (RT-PCR) Influenza B (RT-PCR) RSV Antigen RSV (RT-PCR) SARS-CoV-2 RNA (RT-PCR) 08/30/24 08/30/24 08/30/24 05:22 07:25 07:40 WBC RBC Hgb Hct MCV MCH MCHC RDW Plt Count MPV Immature Gran % (Auto) Neut % (Auto) Lymph % (Auto) [place] % (Auto) Eos % (Auto) Baso % (Auto) Lymph # (Auto) [place] # (Auto) Eos # (Auto) Baso # (Auto) Abs Immat Gran (auto) Absolute Neuts (auto) Absolute Nucleated RBC Nucleated RBC % Puncture Site Left radial ABG pH 7.314 L ABG pCO2 46.3 H ABG pO2 109.5 H ABG PO2/FiO2 Ratio 1.10 ABG HCO3 23.0 ABG O2 Saturation 97.6 ABG O2 Content 16.5 ABG Base Excess -3.3 A-a Gradient 557.2 Oxyhemoglobin 97.5 Carboxyhemoglobin 0.5 Methemoglobin 0.3 Reduced Hemoglobin 1.7 Total Hemoglobin 11.9 L O2 Delivery Device Ventilator O2 Liters/Min Not Reportable Minute Volume Not Reportable Vent Rate 20 Vent Mode Cmv FiO2 100 Tidal Volume 350 PEEP 10 Peak Inspir Pressure Not Reportable Pressure Support Not Reportable Sodium Potassium Chloride Carbon Dioxide Anion Gap BUN Creatinine Estim Creat Clear Calc Estimated GFR Glucose POC Capillary Glucose 65 Lactic Acid Calcium Phosphorus Magnesium Total Bilirubin AST ALT Alkaline Phosphatase Troponin I NT-Pro-B Natriuret Pep Total Protein Albumin Procalcitonin TSH (Reflex) Free T4 Total T3 Nasal MRSA (PCR) Random Vancomycin 19.6 Influenza A (RT-PCR) Influenza B (RT-PCR) RSV Antigen RSV (RT-PCR) SARS-CoV-2 RNA (RT-PCR) 08/30/24 08/30/24 08/30/24 07:42 08:08 11:31 WBC RBC Hgb Hct MCV MCH MCHC RDW Plt Count MPV Immature Gran % (Auto) Neut % (Auto) Lymph % (Auto) [place] % (Auto) Eos % (Auto) Baso % (Auto) Lymph # (Auto) [place] # (Auto) Eos # (Auto) Baso # (Auto) Abs Immat Gran (auto) Absolute Neuts (auto) Absolute Nucleated RBC Nucleated RBC % Puncture Site ABG pH ABG pCO2 ABG pO2 ABG PO2/FiO2 Ratio ABG HCO3 ABG O2 Saturation ABG O2 Content ABG Base Excess A-a Gradient Oxyhemoglobin Carboxyhemoglobin Methemoglobin Reduced Hemoglobin Total Hemoglobin O2 Delivery Device O2 Liters/Min Minute Volume Vent Rate Vent Mode FiO2 Tidal Volume PEEP Peak Inspir Pressure Pressure Support Sodium Potassium Chloride Carbon Dioxide Anion Gap BUN Creatinine Estim Creat Clear Calc Estimated GFR Glucose POC Capillary Glucose 68 113 H 71 Lactic Acid Calcium Phosphorus Magnesium Total Bilirubin AST ALT Alkaline Phosphatase Troponin I NT-Pro-B Natriuret Pep Total Protein Albumin Procalcitonin TSH (Reflex) Free T4 Total T3 Nasal MRSA (PCR) Random Vancomycin Influenza A (RT-PCR) Influenza B (RT-PCR) RSV Antigen RSV (RT-PCR) SARS-CoV-2 RNA (RT-PCR)
[2024-08-30 12:36] LABS: Glucose Point of Care 73 mg/dl (65-105)
[2024-08-30 13:21] LABS: Basophils Absolute Auto 0.1 K/mm3 (0.0-0.1); Basophils Percent Auto 1.6 % (0.2-1.2); Eosinophils Absolute Auto 0.1 K/mm3 (0-0.3); Eosinophils Percent Auto 1.8 % (0-4.4); Hematocrit 35.3 % (42.0-52.0); Immature Granulocyte Absolute 0.02 K/mm3 (0.00-0.031); Immature Granulocyte Percent A 0.4 % (0-0.5); Lymphocytes Absolute Auto 0.58 K/mm3 (0.9-3.2); Lymphocytes Percent Auto 11.9 % (18.3-44.2); Mean Corpuscular HGB Conc 31.2 g/dl (32-36); Mean Corpuscular Hemoglobin 34.2 pg (26-34); Mean Corpuscular Volume 109.6 fl (80-100); Mean Platelet Volume 11.3 fl (7.4-10.4); Monocytes Absolute Auto 0.7 K/mm3 (0.1-0.6); Monocytes Percent Auto 14.8 % (2.6-8.5); Neutrophils Absolute Auto 3.4 K/mm3 (1.3-6.7); Neutrophils Percent Auto 69.5 % (45.5-73.1); Platelet Count Result 156 k/mm3 (150-375); Red Blood Count 3.22 M/mm3 (4.6-6.20); Red Cell Distribution Width 14.9 % (11.5-14.5); White Blood Count 4.9 K/mm3 (4.5-10.0)
[2024-08-30 13:32] LABS: INR 1.3; Prothrombin Time 16.2 Seconds (11.1-14.7)
[2024-08-30 13:33] LABS: Partial Thromboplastin Time 38.7 Seconds (22.3-36.8)
[2024-08-30] MEDS: HEPARIN SODIUM 5,000 UNITS/ML VIAL 6500 UNITS IV PUSH (13:36)
[2024-08-30] MEDS: HEPARIN SOD/D5W 100 UNITS/ML 25,000 UNITS/250 ML BAG 15 UNITS IV CONT (13:36)
[2024-08-30] MEDS: SEVELAMER CARBONATE 0.8 GM ORAL POWDER PACKET 1.6 GM FEED TUBE ×2 (14:00→18:10)
[2024-08-30 14:09] LABS: Band Neutrophils Percent 0 % (0-6); Platelet Estimate Adequate (Adequate); Schistocytes 3+
[2024-08-30 14:10] LABS: Anisocytosis 1+; Macrocytosis 1+ (NORMAL); Microcytosis 1+ (NORMAL)
[2024-08-30 14:11] LABS: Hypochromasia 1+
--- NOTE | 2024-08-30 15:55 | P.PNNP_ITS ---
Progress Note: A&P Assessment and Plan (1) End stage renal disease: Code(s): N18.6 - End stage renal disease Status: Chronic Assessment and Plan: * HD tomorrow * continue Friday//Friday dialysis schedule while hospitalized * follow electrolytes, volume status, and clearance (2) Acute on chronic respiratory failure with hypoxia and hypercapnia: Code(s): J96.21 - Acute and chronic respiratory failure with hypoxia; J96.22 - Acute and chronic respiratory failure with hypercapnia Status: Acute Assessment and Plan: * due to several issues: * pulmonary edema * possible pneumonia * obesity hypoventilation * chronic respiratory failure secondary to laryngeal cancer status post laryngectomy and laryngeal tube placement * on mechanical ventilation * fluid removal with dry ultrafiltration and dialysis as tolerated by hemodynamics * empiric antibiotic therapy for pneumonia (3) Hypotension: Code(s): I95.9 - Hypotension, unspecified Status: Acute Assessment and Plan: * as noted since AM on 08/28 * worsened by administration scheduled BP medication on 08/28 as well * was asymptomatic * BP medications on hold * started on oral midodrine therapy * due to early sepsis?? * recent CXR with pneumonia * vasopressor therapy as needed * follow trend of hemodynamics (4) Pneumonia: Code(s): J18.9 - Pneumonia, unspecified organism Status: Acute Assessment and Plan: * as suggested by recent imaging * follow culture data * on antibiotic therapy (5) Hypertension: Code(s): I10 - Essential (primary) hypertension Status: Chronic Assessment and Plan: * BP medications on hold due to hypotension * follow trend of hemodynamics (6) Type 2 diabetes mellitus: Code(s): E11.9 - Type 2 diabetes mellitus without complications Status: Chronic Assessment and Plan: * follow accu-cheks * glycemic control per hospitalist Will continue to follow. L Subjective Date/time seen: 08/30/24 15:55 Interval history: Follow-up for end stage renal disease on hemodialysis. Events noted yesterday afternoon -- rapid response due to hypoxia and hypotension; was getting IVF bolus given hypotension but stat CXR demonstrated clear evidence of volume overload/pulmonary vascular congestion/bilateral pleural effusions; emergently transferred to the ICU with subsequent discontinuation of IVF bolus; he continued to have ongoing issues with hypoxia, so ET tube was placed thoguth his laryngeal tube and he was placed on mechanical ventilation after signficant secreations were suctioned with improvement in oxygenation; hypotension also persisted so a right femoral central line was placed with subsequent initiation of vasopressor (Levophed) therapy; urgent dry ultrafiltration treatment was done yesterday evening due to his volume overload and change in respiratory status with 3L fluid removal. Currently, he is tolerating another session of dry ultrafiltration (seen on DUF at 3:45PM) and remains on low dose levophed; remains on mechanical ventilation via ET tube through tracheostomy stoma; reports improvement in breathing/respiratory status when seen; no other acute complaints voiced. Exam 2 Narrative: General: WD/WN male in NAD Heart: normal S1 and S2; no rub Lungs: coarse with decreased breath sounds at bases Abdomen: soft, nontender but mild distension, positive bowel sounds Extremities: no cyanosis or clubbing; trace - 1+ edema in UEs and LEs Skin: warm and dry Objective Data Vital Signs Vital Signs: Vital Signs Temp Pulse Resp BP Pulse Ox O2 Del Method FiO2 08/30/24 15:45 54 L 130/66 08/30/24 15:30 57 L 129/65 08/30/24 15:23 55 L 100 Mechanical Ventilation 70 08/30/24 15:15 63 131/71 08/30/24 15:00 59 L 132/71 08/30/24 14:45 66 134/64 08/30/24 14:30 58 L 129/66 08/30/24 14:21 80 08/30/24 14:21 2 L 126/66 08/30/24 14:00 56 L 08/30/24 14:00 63 20 124/70 100 08/30/24 14:00 97.8 F 63 22 H 124/70 100 08/30/24 14:00 63 124/70 08/30/24 13:45 61 127/82 08/30/24 13:30 64 140/77 08/30/24 12:30 Mechanical Ventilation 80 08/30/24 12:00 80 08/30/24 12:00 63 08/30/24 12:00 58 L 120/71 08/30/24 12:00 97.8 F 58 L 23 H 120/71 99 08/30/24 11:43 59 L 100 Mechanical Ventilation 80 08/30/24 10:30 55 L 85/59 L 08/30/24 10:15 57 L 75/53 L 08/30/24 10:00 56 L 08/30/24 10:00 56 L 96/65 L 08/30/24 10:00 56 L 20 96/65 L 99 08/30/24 09:45 55 L 112/69 08/30/24 09:21 56 L 99 Mechanical Ventilation 90 08/30/24 08:00 100 08/30/24 08:00 59 L 08/30/24 08:00 Mechanical Ventilation 100 08/30/24 08:00 61 109/86 08/30/24 08:00 97.7 F 61 21 H 109/86 100 08/30/24 07:00 58 L 105/70 08/30/24 06:00 58 L 102/74 08/30/24 06:00 58 L 21 H 102/74 97 08/30/24 06:00 58 L 08/30/24 05:23 65 96 Mechanical Ventilation 100 08/30/24 05:00 68 104/74 08/30/24 04:15 55 L 106/66 08/30/24 04:00 Mechanical Ventilation 100 08/30/24 04:00 55 L 111/67 08/30/24 04:00 100 08/30/24 04:00 54 L 08/30/24 04:00 98.2 F 88 22 H 111/67 96 08/30/24 03:17 57 L 100 Mechanical Ventilation 100 08/30/24 03:00 56 L 112/67 08/30/24 02:15 56 L 98/68 L 08/30/24 02:00 98.2 F 58 L 22 H 118/67 99 08/30/24 02:00 58 L 118/67 08/30/24 02:00 57 L 08/30/24 01:00 56 L 100/64 08/30/24 00:15 57 L 111/64 08/30/24 00:00 58 L 08/30/24 00:00 98.0 F 57 L 22 H 123/65 99 08/30/24 00:00 59 L 123/65 08/29/24 23:58 100 08/29/24 23:54 Mechanical Ventilation 100 08/29/24 23:16 61 99 Mechanical Ventilation 100 08/29/24 23:00 61 100/59 L 08/29/24 22:45 98.4 F 59 L 20 114/66 100 03/30/25 22:24 66 117/76 08/29/24 22:15 60 113/66 08/29/24 22:00 56 L 95/59 L 08/29/24 22:00 56 L 18 95/59 L 100 08/29/24 22:00 55 L 08/29/24 22:00 56 L 95/59 L 08/29/24 21:45 58 L 112/62 08/29/24 21:30 58 L 117/76 08/29/24 21:15 60 115/70 08/29/24 21:00 63 121/67 08/29/24 21:00 60 121/67 08/29/24 20:46 62 96 Mechanical Ventilation 100 08/29/24 20:45 62 132/77 08/29/24 20:30 64 129/68 08/29/24 20:15 62 128/65 08/29/24 20:00 58 L 113/75 08/29/24 20:00 98.7 F 66 22 H 113/75 94 08/29/24 20:00 70 113/75 08/29/24 20:00 Mechanical Ventilation 100 08/29/24 20:00 100 08/29/24 20:00 69 08/29/24 19:45 58 L 121/62 08/29/24 19:30 58 L 141/78 H 08/29/24 19:23 57 L 123/70 Intake/Output Intake/Output: Intake & Output 08/27/24 08/28/24 08/29/24 08/30/24 23:59 23:59 23:59 23:59 Intake Total 240 860 967.4 617.1 Output Total 0 3000 3000 Balance 240 860 -2032.6 -2382.9 Meds/Results Medications: Active Medications Generic Name Dose Route Start Last Admin Trade Name Freq PRN Reason Stop Dose Admin Acetaminophen 650 mg 08/27/24 15:58 Acetaminophen 325 Mg Tablet PO Q4H PRN Mild Pain (1-3) or Fever Dextrose 12.5 gm 08/27/24 23:31 08/30/24 07:50 Dextrose 50% 25 Gm/50 Ml Syringe IV PUSH 12.5 gm PRN PRN Administration Hypoglycemia Protocol Glucagon 1 mg 08/27/24 23:31 Glucagon For Inj 1 Mg Vial IM PRN PRN Hypoglycemia Protocol Glucose 15 gm 08/27/24 23:31 Glucose Oral Gel 15 Gm Of Glucse In 37.5 Gm Tube PO PRN PRN Hypoglycemia Protocol Heparin Sodium (Porcine) 6,500 units 08/30/24 11:51 Heparin Sodium 5,000 Units/Ml Vial IV PUSH PRN PRN aPTT less than 55 seconds Heparin Sodium (Porcine) 3,500 units 08/30/24 11:51 Heparin Sodium 5,000 Units/Ml Vial IV PUSH PRN PRN aPTT 55 - 70 seconds Dextrose 1,000 mls @ 100 mls/hr 08/27/24 23:31 Dextrose 5% 1,000 Ml IVPB PRN PRN Hypoglycemia Protocol Albumin Human 50 mls @ 999 mls/hr 08/28/24 01:42 08/28/24 12:30 Albutein IVPB 09/27/24 01:41 Infused Q10M PRN Infusion HYPOTENSION Azithromycin 500 mg in 250 mls @ 250 mls/hr 08/29/24 09:00 08/30/24 10:05 Zithromax IVPB 09/03/24 08:59 Infused Q24H ISELA Infusion Norepinephrine Bitartrate 8 mg in 250 mls @ 0 mls/hr 08/29/24 14:25 08/30/24 18:30 Levophed 8 Mg/D5w 250 Ml IV CONT 0 mcg/min .Q0M ISELA 0 mls/hr Titration Protocol Piperacillin Sod/Tazobactam Sod 2.25 gm in 50 mls @ 100 mls/hr 08/30/24 11:00 08/30/24 18:50 Zosyn 2.25 Gm/Ns 50 Ml IVPB Infused Q6HR ISELA Infusion Heparin Sodium/Dextrose 25,000 units in 250 mls @ 15 mls/hr 08/30/24 11:55 08/30/24 13:36 Heparin Sodium/D5w 100 Units/Ml IV CONT 1,500 units/hr .[id number] ISELA 15 mls/hr Administration Protocol 1,500 UNITS/HR Insulin Aspart 3 - 6 units 08/29/24 17:00 08/30/24 17:34 Insulin Aspart (*Bkc) 100 Units/Ml SUB-Q Not Given Q4HR ISELA Protocol Levothyroxine Sodium 75 mcg 08/28/24 06:30 08/30/24 05:15 Levothyroxine Sodium 75 Mcg Tablet PO Not Given DAILY@0630 [facility] Levothyroxine Sodium 100 mcg 08/28/24 06:30 08/30/24 05:15 Levothyroxine Sodium 100 Mcg Tablet PO Not Given DAILY@0630 [facility] Midodrine 10 mg 08/29/24 08:00 08/30/24 18:10 Midodrine Hcl 10 Mg Tablet PO 10 mg TID ISELA Administration Pantoprazole Sodium 40 mg 08/30/24 09:00 08/30/24 09:06 Pantoprazole Sodium Iv 40 Mg Vial IV PUSH 40 mg QAM ISELA Administration Perflutren Lipid Microsphere 0 ml 08/30/24 17:46 Perflutren Lipid Microspheres 1.5 Ml Vial Diluted To 10 Ml Total Volume IV PUSH 09/02/24 17:46 ONCE PRN adequate visualization Protocol Pravastatin Sodium 40 mg 08/28/24 09:00 08/30/24 09:05 Pravastatin Sodium 20 Mg Tablet PO 40 mg DAILY ISELA Administration Sevelamer Carbonate 1.6 gm 08/30/24 13:50 08/30/24 18:10 Sevelamer Carbonate 0.8 Gm Oral Powder Packet FEED TUBE 1.6 gm TIDWM ISELA Administration Sodium Chloride 10 ml 08/29/24 22:00 08/30/24 13:47 Central Line Flush IV PUSH 10 ml Q8HR ISELA Administration Sodium Chloride 20 ml 08/29/24 17:00 08/29/24 23:07 Central Line Flush IV PUSH 10 ml PRN PRN Administration after blood draws Radiology Results: ITS Impressions Abdomen X-Ray 08/30/24 09:26 IMPRESSION: 1: NG tube coiled in the stomach. Venous Doppler Study 08/30/24 10:40 IMPRESSION: 1. Bilateral below the knee deep venous thrombosis in the peroneal veins. Findings were discussed with Annabel Macedo, the nurse caring for the patient, at 10:49 AM. Labs Labs: Laboratory Tests 08/30/24 13:12 08/30/24 04:45 Calcium 9.1 Phosphorus 4.7 H Magnesium 2.3 Total Bilirubin 0.7 AST 20 ALT 13 Alkaline Phosphatase 88 Total Protein 7.0 Albumin 4.0 Microbiology 08/29/24 16:22 Sputum Sputum Culture - Preliminary 08/29/24 09:14 Blood Blood Culture - Preliminary 08/29/24 09:05 Blood Blood Culture - Preliminary
--- NOTE | 2024-08-30 16:18 | W.PM.PROC2 ---
Procedure Note - Detailed Date of Procedure 08/30/24 Pre-op Diagnosis ESRD ON HD,TRACH DEPENDENT Post-op Diagnosis Same Procedure Performed or circuit and confirmed with the respiratory therapist Surgeon Javed Crespo MD Urine Output 0
--- NOTE | 2024-08-30 16:29 | P.PN_ITS ---
Progress Note: A&P Assessment and Plan (1) Pulmonary edema: Qualifiers: Chronicity: acute Qualified Code(s): J81.0 - Acute pulmonary edema Code(s): J81.1 - Chronic pulmonary edema Status: Acute (2) Acute respiratory failure: Qualifiers: Respiratory failure complication: unspecified whether with hypoxia or hypercapnia Qualified Code(s): J96.00 - Acute respiratory failure, unspecified whether with hypoxia or hypercapnia Code(s): J96.00 - Acute respiratory failure, unspecified whether with hypoxia or hypercapnia Status: Acute Plan 59-year-old male with respiratory failure status post laryngectomy who needed cuffed tracheostomy tube inserted - Tracheostomy change: Patient had Endotracheal tube placed ,Shiley 8 cuffed tube was placed in the tracheotomy and inflated with Air and was secured using trach tie then trach was connected to the ventilator - follow-up as per intensive care unit team Time Spent With Patient Time with patient: 15 - 25 minutes Subjective Date/time seen: 08/30/24 16:29 Interval history: I was called by the business line controller ICU physician for insertion of a cuffed tracheostomy tube instead of the endotracheal tube that was inserted previously into the tracheal stoma Review of Systems Review of Systems: I was called by the business line controller for inserting a tracheotomy cuffed tube instead of the ET tube that was inserted in the trach stoma ROS unobtainable: Yes unobtainable due to endotracheal tube Constitutional: Constitutional: Reports as per HPI ENT: Reports as per HPI Comments: trach stoma was seen with the endotracheal-tube inserted and and inflated Exam Const: General: cooperative, comfortable, no acute distress, alert and awake HENMT: Head: normocephalic and atraumatic Ears: external ears normal and EAC's normal Face/Nose/Sinus: Normal external nose present and Normal nares present Mouth: Yes Normal oral and palatal mucosa present and Yes lip normal Eyes: General: appearance normal, both eyes and all related structures Neck: Neck: normal visual inspection Other: tracheal stoma with endotracheal tube inserted Objective Data Vital Signs Vital Signs: Vital Signs - 24 hr 08/29/24 16:34 08/29/24 16:48 08/29/24 16:50 Temperature Pulse Rate 61 68 64 Respiratory Rate Blood Pressure 144/80 H 135/75 Pulse Oximetry 96 Oxygen Delivery Mechanical Ventilation Fraction of Inspired Oxygen 100 08/29/24 18:00 08/29/24 18:00 08/29/24 18:00 Temperature Pulse Rate 65 65 65 Respiratory Rate 19 Blood Pressure 120/71 120/71 Pulse Oximetry 96 Oxygen Delivery Fraction of Inspired Oxygen 08/29/24 18:00 08/29/24 19:15 08/29/24 19:23 Temperature 37.0 C Pulse Rate 65 61 57 L Respiratory Rate 20 Blood Pressure 126/65 123/70 Pulse Oximetry 94 Oxygen Delivery Fraction of Inspired Oxygen 08/29/24 19:30 08/29/24 19:45 08/29/24 20:00 Temperature Pulse Rate 58 L 58 L 69 Respiratory Rate Blood Pressure 141/78 H 121/62 Pulse Oximetry Oxygen Delivery Fraction of Inspired Oxygen 08/29/24 20:00 08/29/24 20:00 08/29/24 20:00 Temperature Pulse Rate 70 Respiratory Rate Blood Pressure 113/75 Pulse Oximetry Oxygen Delivery Mechanical Ventilation Fraction of Inspired Oxygen 100 100 08/29/24 20:00 08/29/24 20:00 08/29/24 20:15 Temperature 37.1 C Pulse Rate 66 58 L 62 Respiratory Rate 22 H Blood Pressure 113/75 113/75 128/65 Pulse Oximetry 94 Oxygen Delivery Fraction of Inspired Oxygen 08/29/24 20:30 08/29/24 20:45 08/29/24 20:46 Temperature Pulse Rate 64 62 62 Respiratory Rate Blood Pressure 129/68 132/77 Pulse Oximetry 96 Oxygen Delivery Mechanical Ventilation Fraction of Inspired Oxygen 100 08/29/24 21:00 08/29/24 21:00 08/29/24 21:15 Temperature Pulse Rate 60 63 60 Respiratory Rate Blood Pressure 121/67 121/67 115/70 Pulse Oximetry Oxygen Delivery Fraction of Inspired Oxygen 08/29/24 21:30 08/29/24 21:45 08/29/24 22:00 Temperature Pulse Rate 58 L 58 L 56 L Respiratory Rate Blood Pressure 117/76 112/62 95/59 L Pulse Oximetry Oxygen Delivery Fraction of Inspired Oxygen 08/29/24 22:00 08/29/24 22:00 08/29/24 22:00 Temperature Pulse Rate 55 L 56 L 56 L Respiratory Rate 18 Blood Pressure 95/59 L 95/59 L Pulse Oximetry 100 Oxygen Delivery Fraction of Inspired Oxygen 08/29/24 22:15 08/29/24 22:24 08/29/24 22:45 Temperature 36.9 C Pulse Rate 60 66 59 L Respiratory Rate 20 Blood Pressure 113/66 117/76 114/66 Pulse Oximetry 100 Oxygen Delivery Fraction of Inspired Oxygen 08/29/24 23:00 08/29/24 23:16 08/29/24 23:54 Temperature Pulse Rate 61 61 Respiratory Rate Blood Pressure 100/59 L Pulse Oximetry 99 Oxygen Delivery Mechanical Ventilation Mechanical Ventilation Fraction of Inspired Oxygen 100 100 08/29/24 23:58 08/30/24 00:00 08/30/24 00:00 Temperature 36.7 C Pulse Rate 59 L 57 L Respiratory Rate 22 H Blood Pressure 123/65 123/65 Pulse Oximetry 99 Oxygen Delivery Fraction of Inspired Oxygen 100 08/30/24 00:00 08/30/24 00:15 08/30/24 01:00 Temperature Pulse Rate 58 L 57 L 56 L Respiratory Rate Blood Pressure 111/64 100/64 Pulse Oximetry Oxygen Delivery Fraction of Inspired Oxygen 08/30/24 02:00 08/30/24 02:00 08/30/24 02:00 Temperature 36.8 C Pulse Rate 57 L 58 L 58 L Respiratory Rate 22 H Blood Pressure 118/67 118/67 Pulse Oximetry 99 Oxygen Delivery Fraction of Inspired Oxygen 08/30/24 02:15 08/30/24 03:00 08/30/24 03:17 Temperature Pulse Rate 56 L 56 L 57 L Respiratory Rate Blood Pressure 98/68 L 112/67 Pulse Oximetry 100 Oxygen Delivery Mechanical Ventilation Fraction of Inspired Oxygen 100 08/30/24 04:00 08/30/24 04:00 08/30/24 04:00 Temperature 36.8 C Pulse Rate 88 54 L Respiratory Rate 22 H Blood Pressure 111/67 Pulse Oximetry 96 Oxygen Delivery Fraction of Inspired Oxygen 100 08/30/24 04:00 08/30/24 04:00 08/30/24 04:15 Temperature Pulse Rate 55 L 55 L Respiratory Rate Blood Pressure 111/67 106/66 Pulse Oximetry Oxygen Delivery Mechanical Ventilation Fraction of Inspired Oxygen 100 08/30/24 05:00 08/30/24 05:23 08/30/24 06:00 Temperature Pulse Rate 68 65 58 L Respiratory Rate Blood Pressure 104/74 Pulse Oximetry 96 Oxygen Delivery Mechanical Ventilation Fraction of Inspired Oxygen 100 08/30/24 06:00 08/30/24 06:00 08/30/24 07:00 Temperature Pulse Rate 58 L 58 L 58 L Respiratory Rate 21 H Blood Pressure 102/74 102/74 105/70 Pulse Oximetry 97 Oxygen Delivery Fraction of Inspired Oxygen 08/30/24 08:00 08/30/24 08:00 08/30/24 09:21 Temperature 36.5 C Pulse Rate 61 61 56 L Respiratory Rate 21 H Blood Pressure 109/86 109/86 Pulse Oximetry 100 99 Oxygen Delivery Mechanical Ventilation Fraction of Inspired Oxygen 90 08/30/24 09:45 08/30/24 10:00 08/30/24 10:00 Temperature Pulse Rate 55 L 56 L 56 L Respiratory Rate 20 Blood Pressure 112/69 96/65 L 96/65 L Pulse Oximetry 99 Oxygen Delivery Fraction of Inspired Oxygen 08/30/24 10:15 08/30/24 10:30 08/30/24 11:43 Temperature Pulse Rate 57 L 55 L 59 L Respiratory Rate Blood Pressure 75/53 L 85/59 L Pulse Oximetry 100 Oxygen Delivery Mechanical Ventilation Fraction of Inspired Oxygen 80 08/30/24 12:00 08/30/24 12:00 08/30/24 13:30 Temperature 36.6 C Pulse Rate 58 L 58 L 64 Respiratory Rate 23 H Blood Pressure 120/71 120/71 140/77 Pulse Oximetry 99 Oxygen Delivery Fraction of Inspired Oxygen 08/30/24 13:45 08/30/24 14:00 08/30/24 14:00 Temperature 36.6 C Pulse Rate 61 63 63 Respiratory Rate 22 H Blood Pressure 127/82 124/70 124/70 Pulse Oximetry 100 Oxygen Delivery Fraction of Inspired Oxygen 08/30/24 14:00 08/30/24 14:21 08/30/24 14:21 Temperature Pulse Rate 63 2 L Respiratory Rate 20 Blood Pressure 124/70 126/66 Pulse Oximetry 100 Oxygen Delivery Fraction of Inspired Oxygen 80 08/30/24 14:30 08/30/24 14:45 08/30/24 15:00 Temperature Pulse Rate 58 L 66 59 L Respiratory Rate Blood Pressure 129/66 134/64 132/71 Pulse Oximetry Oxygen Delivery Fraction of Inspired Oxygen 08/30/24 15:15 08/30/24 15:23 08/30/24 15:30 Temperature Pulse Rate 63 55 L 57 L Respiratory Rate Blood Pressure 131/71 129/65 Pulse Oximetry 100 Oxygen Delivery Mechanical Ventilation Fraction of Inspired Oxygen 70 08/30/24 15:45 08/30/24 16:00 08/30/24 16:00 Temperature 36.5 C Pulse Rate 54 L 58 L 63 Respiratory Rate 24 H Blood Pressure 130/66 127/66 127/66 Pulse Oximetry 100 Oxygen Delivery Fraction of Inspired Oxygen 08/30/24 16:15 Temperature Pulse Rate 60 Respiratory Rate Blood Pressure 130/73 Pulse Oximetry Oxygen Delivery Fraction of Inspired Oxygen Intake/Output Intake/Output: Intake & Output 08/27/24 08/28/24 08/29/24 08/30/24 23:59 23:59 23:59 23:59 Intake Total 240 860 967.4 399.1 Output Total 0 3000 0 Balance 240 860 -2032.6 399.1 Meds/Results Medications: Active Medications Generic Name Dose Route Start Last Admin Trade Name Freq PRN Reason Stop Dose Admin Acetaminophen 650 mg 08/27/24 15:58 Acetaminophen 325 Mg Tablet PO Q4H PRN Mild Pain (1-3) or Fever Dextrose 12.5 gm 08/27/24 23:31 08/30/24 07:50 Dextrose 50% 25 Gm/50 Ml Syringe IV PUSH 12.5 gm PRN PRN Administration Hypoglycemia Protocol Glucagon 1 mg 08/27/24 23:31 Glucagon For Inj 1 Mg Vial IM PRN PRN Hypoglycemia Protocol Glucose 15 gm 08/27/24 23:31 Glucose Oral Gel 15 Gm Of Glucse In 37.5 Gm Tube PO PRN PRN Hypoglycemia Protocol Heparin Sodium (Porcine) 6,500 units 08/30/24 11:51 Heparin Sodium 5,000 Units/Ml Vial IV PUSH PRN PRN aPTT less than 55 seconds Heparin Sodium (Porcine) 3,500 units 08/30/24 11:51 Heparin Sodium 5,000 Units/Ml Vial IV PUSH PRN PRN aPTT 55 - 70 seconds Dextrose 1,000 mls @ 100 mls/hr 08/27/24 23:31 Dextrose 5% 1,000 Ml IVPB PRN PRN Hypoglycemia Protocol Albumin Human 50 mls @ 999 mls/hr 08/28/24 01:42 08/28/24 12:30 Albutein IVPB 09/27/24 01:41 Infused Q10M PRN Infusion HYPOTENSION Azithromycin 500 mg in 250 mls @ 250 mls/hr 08/29/24 09:00 08/30/24 10:05 Zithromax IVPB 09/03/24 08:59 Infused Q24H ISELA Infusion Norepinephrine Bitartrate 8 mg in 250 mls @ 3.75 mls/hr 08/29/24 14:25 03/06/26 14:00 Levophed 8 Mg/D5w 250 Ml IV CONT 2 mcg/min .Q24H ISELA 3.75 mls/hr Titration Protocol 2 MCG/MIN Piperacillin Sod/Tazobactam Sod 2.25 gm in 50 mls @ 100 mls/hr 08/30/24 11:00 08/30/24 11:53 Zosyn 2.25 Gm/Ns 50 Ml IVPB Infused Q6HR ISELA Infusion Heparin Sodium/Dextrose 25,000 units in 250 mls @ 15 mls/hr 08/30/24 11:55 08/30/24 13:36 Heparin Sodium/D5w 100 Units/Ml IV CONT 1,500 units/hr .[id number] ISELA 15 mls/hr Administration Protocol 1,500 UNITS/HR Insulin Aspart 3 - 6 units 08/29/24 17:00 08/30/24 13:35 Insulin Aspart (*Bkc) 100 Units/Ml SUB-Q Not Given Q4HR [facility] Protocol Levothyroxine Sodium 75 mcg 08/28/24 06:30 08/30/24 05:15 Levothyroxine Sodium 75 Mcg Tablet PO Not Given DAILY@0630 [facility] Levothyroxine Sodium 100 mcg 08/28/24 06:30 08/30/24 05:15 Levothyroxine Sodium 100 Mcg Tablet PO Not Given DAILY@0630 [facility] Midodrine 10 mg 08/29/24 08:00 08/30/24 13:35 Midodrine Hcl 10 Mg Tablet PO 10 mg TID ISELA Administration Pantoprazole Sodium 40 mg 08/30/24 09:00 08/30/24 09:06 Pantoprazole Sodium Iv 40 Mg Vial IV PUSH 40 mg QAM ISELA Administration Pravastatin Sodium 40 mg 08/28/24 09:00 08/30/24 09:05 Pravastatin Sodium 20 Mg Tablet PO 40 mg DAILY ISELA Administration Sevelamer Carbonate 1.6 gm 08/30/24 13:50 08/30/24 14:00 Sevelamer Carbonate 0.8 Gm Oral Powder Packet FEED TUBE 1.6 gm TIDWM ISELA Administration Sodium Chloride 10 ml 08/29/24 22:00 08/30/24 13:47 Central Line Flush IV PUSH 10 ml Q8HR ISELA Administration Sodium Chloride 20 ml 08/29/24 17:00 08/29/24 23:07 Central Line Flush IV PUSH 10 ml PRN PRN Administration after blood draws Radiology Results: ITS Impressions Abdomen X-Ray 08/30/24 09:26 IMPRESSION: 1: NG tube coiled in the stomach. Venous Doppler Study 08/30/24 10:40 IMPRESSION: 1. Bilateral below the knee deep venous thrombosis in the peroneal veins. Findings were discussed with Annabel Macedo, the nurse caring for the patient, at 10:49 AM. Labs Labs: Laboratory Results - last 24 hr 08/29/24 08/29/24 08/29/24 15:51 15:52 16:51 WBC RBC Hgb Hct MCV MCH MCHC RDW Plt Count MPV Immature Gran % (Auto) Neut % (Auto) Lymph % (Auto) [place] % (Auto) Eos % (Auto) Baso % (Auto) Lymph # (Auto) [place] # (Auto) Eos # (Auto) Baso # (Auto) Abs Immat Gran (auto) Absolute Neuts (auto) Absolute Nucleated RBC Band Neutrophils % Nucleated RBC % Platelet Estimate Hypochromasia Anisocytosis Microcytosis Macrocytosis Schistocytes PT INR APTT Puncture Site ABG pH ABG pCO2 ABG pO2 ABG PO2/FiO2 Ratio ABG HCO3 ABG O2 Saturation ABG O2 Content ABG Base Excess A-a Gradient Oxyhemoglobin Carboxyhemoglobin Methemoglobin Reduced Hemoglobin Total Hemoglobin O2 Delivery Device O2 Liters/Min Minute Volume Vent Rate Vent Mode FiO2 Tidal Volume PEEP Peak Inspir Pressure Pressure Support Sodium 138 Potassium 4.4 Chloride 97 L Carbon Dioxide 31 H Anion Gap 10 BUN 38 H Creatinine 5.33 H Estim Creat Clear Calc 17 Estimated GFR 11 L Glucose 112 H POC Capillary Glucose 100 Calcium 9.0 Phosphorus Magnesium 2.3 Total Bilirubin 0.7 AST 21 ALT 14 Alkaline Phosphatase 92 Troponin I 0.050 H* NT-Pro-B Natriuret Pep > 66652 H Total Protein 7.0 Albumin 4.3 Procalcitonin 0.6 TSH (Reflex) > 100.000 H Free T4 0.98 Total T3 0.48 L Nasal MRSA (PCR) Not detected Random Vancomycin Influenza A (RT-PCR) Negative Influenza B (RT-PCR) Negative RSV Antigen Cancelled RSV (RT-PCR) Negative SARS-CoV-2 RNA (RT-PCR) Negative 08/29/24 08/29/24 08/29/24 17:00 20:01 23:58 WBC RBC Hgb Hct MCV MCH MCHC RDW Plt Count MPV Immature Gran % (Auto) Neut % (Auto) Lymph % (Auto) [place] % (Auto) Eos % (Auto) Baso % (Auto) Lymph # (Auto) [place] # (Auto) Eos # (Auto) Baso # (Auto) Abs Immat Gran (auto) Absolute Neuts (auto) Absolute Nucleated RBC Band Neutrophils % Nucleated RBC % Platelet Estimate Hypochromasia Anisocytosis Microcytosis Macrocytosis Schistocytes PT INR APTT Puncture Site Left radial ABG pH 7.218 L* ABG pCO2 58.0 H ABG pO2 79.1 L ABG PO2/FiO2 Ratio 0.79 ABG HCO3 23.1 ABG O2 Saturation 93.0 L ABG O2 Content 16.1 ABG Base Excess -5.2 A-a Gradient 575.9 Oxyhemoglobin 93.2 Carboxyhemoglobin Methemoglobin Reduced Hemoglobin Total Hemoglobin 12.2 O2 Delivery Device Ventilator O2 Liters/Min Not Reportable Minute Volume Not Reportable Vent Rate 20 Vent Mode Cmv FiO2 100 Tidal Volume 350 PEEP 10 Peak Inspir Pressure Not Reportable Pressure Support Not Reportable Sodium Potassium Chloride Carbon Dioxide Anion Gap BUN Creatinine Estim Creat Clear Calc Estimated GFR Glucose POC Capillary Glucose 91 116 H Calcium Phosphorus Magnesium Total Bilirubin AST ALT Alkaline Phosphatase Troponin I NT-Pro-B Natriuret Pep Total Protein Albumin Procalcitonin TSH (Reflex) Free T4 Total T3 Nasal MRSA (PCR) Random Vancomycin Influenza A (RT-PCR) Influenza B (RT-PCR) RSV Antigen RSV (RT-PCR) SARS-CoV-2 RNA (RT-PCR) 08/30/24 08/30/24 08/30/24 04:08 04:45 05:22 WBC 6.2 RBC 3.26 L Hgb 11.2 L Hct 36.1 L MCV 110.7 H MCH 34.4 H MCHC 31.0 L RDW 14.9 H Plt Count 174 MPV 11.5 H Immature Gran % (Auto) 0.5 Neut % (Auto) 69.4 Lymph % (Auto) 12.0 L [place] % (Auto) 14.7 H Eos % (Auto) 1.6 Baso % (Auto) 1.8 H Lymph # (Auto) 0.74 L [place] # (Auto) 0.9 H Eos # (Auto) 0.1 Baso # (Auto) 0.1 Abs Immat Gran (auto) 0.03 Absolute Neuts (auto) 4.3 Absolute Nucleated RBC 0.030 H Band Neutrophils % Nucleated RBC % 0.5 H Platelet Estimate Hypochromasia Anisocytosis Microcytosis Macrocytosis Schistocytes PT INR APTT Puncture Site Left radial ABG pH 7.314 L ABG pCO2 46.3 H ABG pO2 109.5 H ABG PO2/FiO2 Ratio 1.10 ABG HCO3 23.0 ABG O2 Saturation 97.6 ABG O2 Content 16.5 ABG Base Excess -3.3 A-a Gradient 557.2 Oxyhemoglobin 97.5 Carboxyhemoglobin 0.5 Methemoglobin 0.3 Reduced Hemoglobin 1.7 Total Hemoglobin 11.9 L O2 Delivery Device Ventilator O2 Liters/Min Not Reportable Minute Volume Not Reportable Vent Rate 20 Vent Mode Cmv FiO2 100 Tidal Volume 350 PEEP 10 Peak Inspir Pressure Not Reportable Pressure Support Not Reportable Sodium 138 Potassium 4.3 Chloride 97 L Carbon Dioxide 27 Anion Gap 14 H BUN 43 H Creatinine 5.82 H Estim Creat Clear Calc 15 Estimated GFR 10 L Glucose 83 POC Capillary Glucose 78 Calcium 9.1 Phosphorus 4.7 H Magnesium 2.3 Total Bilirubin 0.7 AST 20 ALT 13 Alkaline Phosphatase 88 Troponin I NT-Pro-B Natriuret Pep Total Protein 7.0 Albumin 4.0 Procalcitonin TSH (Reflex) Free T4 Total T3 Nasal MRSA (PCR) Random Vancomycin Influenza A (RT-PCR) Influenza B (RT-PCR) RSV Antigen RSV (RT-PCR) SARS-CoV-2 RNA (RT-PCR) 08/30/24 08/30/24 08/30/24 07:25 07:40 07:42 WBC RBC Hgb Hct MCV MCH MCHC RDW Plt Count MPV Immature Gran % (Auto) Neut % (Auto) Lymph % (Auto) [place] % (Auto) Eos % (Auto) Baso % (Auto) Lymph # (Auto) [place] # (Auto) Eos # (Auto) Baso # (Auto) Abs Immat Gran (auto) Absolute Neuts (auto) Absolute Nucleated RBC Band Neutrophils % Nucleated RBC % Platelet Estimate Hypochromasia Anisocytosis Microcytosis Macrocytosis Schistocytes PT INR APTT Puncture Site ABG pH ABG pCO2 ABG pO2 ABG PO2/FiO2 Ratio ABG HCO3 ABG O2 Saturation ABG O2 Content ABG Base Excess A-a Gradient Oxyhemoglobin Carboxyhemoglobin Methemoglobin Reduced Hemoglobin Total Hemoglobin O2 Delivery Device O2 Liters/Min Minute Volume Vent Rate Vent Mode FiO2 Tidal Volume PEEP Peak Inspir Pressure Pressure Support Sodium Potassium Chloride Carbon Dioxide Anion Gap BUN Creatinine Estim Creat Clear Calc Estimated GFR Glucose POC Capillary Glucose 65 68 Calcium Phosphorus Magnesium Total Bilirubin AST ALT Alkaline Phosphatase Troponin I NT-Pro-B Natriuret Pep Total Protein Albumin Procalcitonin TSH (Reflex) Free T4 Total T3 Nasal MRSA (PCR) Random Vancomycin 19.6 Influenza A (RT-PCR) Influenza B (RT-PCR) RSV Antigen RSV (RT-PCR) SARS-CoV-2 RNA (RT-PCR) 08/30/24 08/30/24 08/30/24 08:08 11:31 12:34 WBC RBC Hgb Hct MCV MCH MCHC RDW Plt Count MPV Immature Gran % (Auto) Neut % (Auto) Lymph % (Auto) [place] % (Auto) Eos % (Auto) Baso % (Auto) Lymph # (Auto) [place] # (Auto) Eos # (Auto) Baso # (Auto) Abs Immat Gran (auto) Absolute Neuts (auto) Absolute Nucleated RBC Band Neutrophils % Nucleated RBC % Platelet Estimate Hypochromasia Anisocytosis Microcytosis Macrocytosis Schistocytes PT INR APTT Puncture Site ABG pH ABG pCO2 ABG pO2 ABG PO2/FiO2 Ratio ABG HCO3 ABG O2 Saturation ABG O2 Content ABG Base Excess A-a Gradient Oxyhemoglobin Carboxyhemoglobin Methemoglobin Reduced Hemoglobin Total Hemoglobin O2 Delivery Device O2 Liters/Min Minute Volume Vent Rate Vent Mode FiO2 Tidal Volume PEEP Peak Inspir Pressure Pressure Support Sodium Potassium Chloride Carbon Dioxide Anion Gap BUN Creatinine Estim Creat Clear Calc Estimated GFR Glucose POC Capillary Glucose 113 H 71 73 Calcium Phosphorus Magnesium Total Bilirubin AST ALT Alkaline Phosphatase Troponin I NT-Pro-B Natriuret Pep Total Protein Albumin Procalcitonin TSH (Reflex) Free T4 Total T3 Nasal MRSA (PCR) Random Vancomycin Influenza A (RT-PCR) Influenza B (RT-PCR) RSV Antigen RSV (RT-PCR) SARS-CoV-2 RNA (RT-PCR) 08/30/24 13:12 WBC 4.9 RBC 3.22 L Hgb 11.0 L Hct 35.3 L MCV 109.6 H MCH 34.2 H MCHC 31.2 L RDW 14.9 H Plt Count 156 MPV 11.3 H Immature Gran % (Auto) 0.4 Neut % (Auto) 69.5 Lymph % (Auto) 11.9 L [place] % (Auto) 14.8 H Eos % (Auto) 1.8 Baso % (Auto) 1.6 H Lymph # (Auto) 0.58 L [place] # (Auto) 0.7 H Eos # (Auto) 0.1 Baso # (Auto) 0.1 Abs Immat Gran (auto) 0.02 Absolute Neuts (auto) 3.4 Absolute Nucleated RBC 0.000 Band Neutrophils % 0 Nucleated RBC % 0.0 Platelet Estimate Adequate Hypochromasia 1+ Anisocytosis 1+ Microcytosis 1+ Macrocytosis 1+ Schistocytes 3+ PT 16.2 H INR 1.3 APTT 38.7 H Puncture Site ABG pH ABG pCO2 ABG pO2 ABG PO2/FiO2 Ratio ABG HCO3 ABG O2 Saturation ABG O2 Content ABG Base Excess A-a Gradient Oxyhemoglobin Carboxyhemoglobin Methemoglobin Reduced Hemoglobin Total Hemoglobin O2 Delivery Device O2 Liters/Min Minute Volume Vent Rate Vent Mode FiO2 Tidal Volume PEEP Peak Inspir Pressure Pressure Support Sodium Potassium Chloride Carbon Dioxide Anion Gap BUN Creatinine Estim Creat Clear Calc Estimated GFR Glucose POC Capillary Glucose Calcium Phosphorus Magnesium Total Bilirubin AST ALT Alkaline Phosphatase Troponin I NT-Pro-B Natriuret Pep Total Protein Albumin Procalcitonin TSH (Reflex) Free T4 Total T3 Nasal MRSA (PCR) Random Vancomycin Influenza A (RT-PCR) Influenza B (RT-PCR) RSV Antigen RSV (RT-PCR) SARS-CoV-2 RNA (RT-PCR)
[2024-08-30 16:47] LABS: Glucose Point of Care 76 mg/dl (65-105)
[2024-08-30 19:55] LABS: Glucose Point of Care 156 mg/dl (65-105)
[2024-08-30 21:45] LABS: Partial Thromboplastin Time 133.7 Seconds (22.3-36.8)
[2024-08-30 23:46] LABS: Glucose Point of Care 114 mg/dl (65-105)
[2024-08-31] VITALS (44 sets, daily range): BP systolic 81–137; BP diastolic 51–89; PULSE 52–74; RESP 16–23; TEMP 36.7–37.4; O2SAT 97–100
--- NOTE | 2024-08-31 | ECHO_ITS ---
Patient Info Name: Bubba Saxena Age: 59 years : 1965 Gender: Male Ht: 69 in Wt: 225 lbs BSA: 2.26 m2 HR: 68 bpm BP: 118 / 68 mmHg Technical Quality: Fair Exam Date: 08/31/2024 1:16 PM Exam Location: Echo Lab Patient Status: Inpatient Admit Date: 08/29/2024 Staff Ordering Physician: Aidan Miguel MD Patient Coordinator: Linh Mosqueda RDCS Attending Provider: Aidan Miguel MD Exam Type: CA echo doppler color flow Study Info Indications - Fluid overload Complete two-dimensional, color flow and Doppler transthoracic echocardiogram is performed with contrast to opacify the left ventricle and to improve the deliniation of the left ventricle endocardial borders. Contrast/Agitated Saline Contrast/Ag. Saline: Definity Amount: 2.00 ml Existing IV Access: Yes IV Access Condition: patent with no signs of infiltration Summary 1. Left ventricular chamber dimension is normal. 2. Left ventricular systolic function is normal, estimated at 50-55%. 3. There is mildly increased left ventricular wall thickness. 4. The left ventricular diastolic function is grade I diastolic dysfunction. 5. Right ventricular chamber dimension is moderately enlarged. 6. Right ventricular systolic function is reduced. 7. Right atrial chamber dimension is moderately enlarged. 8. There is mild mitral valve regurgitation. 9. There is moderate tricuspid valve regurgitation. 10. Estimated pulmonary arterial systolic pressure is 57 mmHg. 11. Dilated inferior vena cava with no collapse upon inspiration consistent with elevated right atrial pressure, 15 mmHg. Left Ventricle Left ventricular chamber dimension is normal. Left ventricular systolic function is normal, estimated at 50-55%. There is mildly increased left ventricular wall thickness. The left ventricular diastolic function is grade I diastolic dysfunction. Right Ventricle Right ventricular chamber dimension is moderately enlarged. Right ventricular systolic function is reduced. Left Atria Left atrial chamber dimension is normal. Right Atria Right atrial chamber dimension is moderately enlarged. Atrial Septum Intact interatrial septum visualized by color flow imaging. Aortic Valve The aortic valve is probable trileaflet. There is no aortic valve stenosis. There is no aortic valve regurgitation. There is moderate aortic valve calcification. Pulmonic Valve The pulmonic valve is not well visualized. There is trace pulmonic regurgitation. Mitral Valve The mitral valve has thickened leaflets. There is mild mitral valve regurgitation. Tricuspid Valve Estimated pulmonary arterial systolic pressure is 57 mmHg. There is moderate tricuspid valve regurgitation. Pericardium/Pleural There is no pericardial effusion. Inferior Vena Cava Dilated inferior vena cava with no collapse upon inspiration consistent with elevated right atrial pressure, 15 mmHg. Aorta The aortic root size at the sinus of Valsalva is normal. Left Ventricular Outflow Tract Name Value Normal LVOT 2D LVOT Diameter 2.1 cm LVOT Doppler LVOT Peak Gradient 3 mmHg LVOT Mean Gradient 1 mmHg LVOT VTI 19 cm LVOT VTI/AV VTI Ratio 0.6 LVOT Stroke Volume 68 ml LVOT CO 12.5 l/min LVOT CI 5.5 l/min/m2 Pulmonic Valve Name Value Normal PV Doppler PV Peak Gradient 2 mmHg Mitral Valve Name Value Normal MV Doppler MV Decel [place] 410 cm/s2 MV PHT 60 ms MV Area (PHT) 3.7 cm2 4.0-5.0 MV Diastolic Function MV E Peak Velocity 85 cm/s MV A Peak Velocity 63 cm/s MV E/A 1.3 MV Decel Time 208 ms MV Annular TDI MV E/e' (Septal) 11.0 <=8.0 MV E/e' (Lateral) 8.0 <=8.0 MV E/e' (Average) 9.5 Tricuspid Valve Name Value Normal TV Regurgitation Doppler TR Peak Velocity 324 cm/s TR Peak Gradient 42 mmHg Estimated PAP/RSVP RA Pressure 15 mmHg <=5 PA Systolic Pressure 57 mmHg <36 RV Systolic Pressure 57 mmHg <36 Aorta Name Value Normal Ascending Aorta Ao Root Diameter (MM) 3.6 cm Ao Root Diam Index (MM) 1.6 cm/m2 Aortic Valve Name Value Normal AV Doppler AV Peak Velocity 155 cm/s AV Peak Gradient 10 mmHg AV Mean Gradient 6 mmHg AV VTI 33 cm AV Area (Cont Eq VTI) 2.1 cm2 >=3.0 AV Area (Cont Eq Manish) 1.8 cm2 AV Regurgitation 2D LVOT Area 3.6 cm2 Ventricles Name Value Normal LV Dimensions 2D/MM IVS Diastolic Thickness (2D) 1.1 cm 0.6-1.0 LVID Diastole (2D) 5.5 cm 4.2-5.8 LVIW Diastolic Thickness (2D) 1.0 cm 0.6-1.0 LVID Systole (2D) 4.5 cm 2.5-4.0 LVOT Diameter 2.1 cm LV Mass (2D Cubed) 216.11 g 88.00-224.00 LV Mass Index (2D Cubed) 95 g/m2 49-115 Relative Wall Thickness (2D) 0.36 LV Fractional Shortening/Ejection Fraction 2D/MM LV Fractional Shortening (2D) 18 % 25-43 LV EF (2D Teicholz) 38 % 52-72 LV Diastolic Volume (4C MOD) 89 ml LV EF (4C MOD) 47 % LV Diastolic Volume (2C MOD) 108 ml LV EF (2C MOD) 68 % LV Diastolic Volume (BP MOD) 99 ml 62-150 LV Diastolic Volume Index (BP MOD) 44 ml/m2 34-74 LV Systolic Volume (BP MOD) 41 ml 21-61 LV Systolic Volume Index (BP MOD) 18 ml/m2 11-31 LV EF (BP MOD) 59 % 52-72 LV Diastolic Length (4C) 8.8 cm LV Systolic Length (4C) 6.9 cm LV Stroke Volume (4C MOD) 42 ml RV Dimensions 2D/MM RVID Diastole (2D) 5.3 cm 2.5-3.5 Atria Name Value Normal LA Dimensions LA Dimension (MM) 3.8 cm 3.0-4.1 LA Volume (4C A-L) 37 ml LA Volume (BP A-L) 55 ml RA Dimensions RA Area (4C) 24.3 cm2 <=18.0 Report Signatures
[2024-08-31] MEDS: PIPERACILLIN/TAZ 2.25G/NS 50ML 2.25 GM/50 ML BAG IVPB ×4 (00:35→17:42)
[2024-08-31] MEDS: CENTRAL LINE FLUSH 10 ML IV PUSH ×3 (00:36→13:17)
[2024-08-31 03:48] LABS: Glucose Point of Care 81 mg/dl (65-105)
[2024-08-31 04:19] LABS: Alveolar/Arterial O2 Gradient 257.3 mmHg; Base Excess ABG -1.1 mEq/l (+/-2.0); Carboxyhemoglobin 0.2 % THb (0-2.0); Fractional Inspired Oxygen 60 %; HCO3 ABG 24.7 mEq/l (22.0-26.0); Methemoglobin ABG 0.3 %THb (0-1.5); Oxygen Content ABG 15.5 %vol (16.0-22.0); Oxygen Saturation ABG 98.2 % (95.0-100.0); Oxyhemoglobin 97.9 % THb (90.0-100.0); PCO2 ABG 45.9 mmHg (35.0-45.0); Reduced Hemoglobin 1.6 %THb (0-5.0); Total Hemoglobin 11.1 g/dL (12.0-18.0); pH ABG 7.349 (7.350-7.450)
--- NOTE | 2024-08-31 04:20 | PC.NURSE ---
Patient's ventilator alarming. This RN entered room to check on patient. This RN checked on patient's trach and checked the connection of trach to the ventilator. The dressing around trach was removed and it was noted that the #8 shiley was not in the correct position. Respiratory and electrical discharge machine operator were called. Darien nugetn was called. Respiratory, Frederic, RN and ER physician were able to reinsert the tracheostomy tube.
--- NOTE | 2024-08-31 04:26 | PM.CCN ---
Critical Care Event Note Summary Code activated: No Narrative: Patient has a history of prior laryngectomy with delivery tube that was just converted to a tracheostomy on the by ENT. Nursing staff noted that the patient event had been alarming. They went in to evaluate and patient was not in any distress and had no complaints. However when she moved the gauze around the patient's tracheostomy she found cough to the tracheostomy the was external. She did grab grab the the ET tube to stabilized. When she did this the resulting in the alarming of the vent to stop. The patient has a history of difficult airway and a code was called so that all providers could be at bedside. I was already a at bedside at the code was called. The patient never lost a pulse and was oxygenating appropriately. His respiratory rate was in the 20s. His heart rate was in the 50s. Respiratory therapy was at bedside and deflated the cuff and tried to reposition the tracheostomy. Her it initially. The the cough was back in appropriate position. However ER physician arrived at the bedside shortly thereafter. He had deflated the cuff and repositioned the tracheostomy tube again at that time the patient cough remained appropriately positioned. With even minimal position changes patient's cough becomes dislodged. Again patient's respiratory status was stable throughout the event. Patient denied having any complaints. Nursing staff is going to call and update ENT about the event. A code was called but not truly activated. Patient never had loss of circulation or overt hypoxia 30 minutes spent in critical care activities. Due to a high probability of clinically significant, life threatening deterioration, the patient required my highest level of preparedness to intervene emergently and I personally spent this critical care time directly and personally managing the patient. This critical care time included obtaining a history; examining the patient; pulse oximetry; ordering and review of studies; arranging urgent treatment with development of a management plan; evaluation of patient's response to treatment; frequent reassessment; and discussions with other providers. It was exclusive of separately billable procedures and treating other patients and teaching time. Please see Assessment and Plan section and the rest of the note for further information on patient assessment and treatment. Critical care time: 30 - 74 mins
[2024-08-31 04:35] LABS: Modified Allen's Test Pass; Site Drawn LEFT RADIAL
[2024-08-31 04:36] LABS: Device VENTILATOR
[2024-08-31 04:37] LABS: Arterial Blood Gas PEEP 10 cmH2O; Arterial Blood Gas Tidal Volume 350 ml; Arterial Blood Gas Vent Mode CMV; Arterial Blood Gas Ventilator rate 20 /MIN
[2024-08-31 05:22] LABS: Basophils Percent Auto 0.9 % (0.2-1.2); Eosinophils Absolute Auto 0.2 K/mm3 (0-0.3); Eosinophils Percent Auto 3.4 % (0-4.4); Hematocrit 31.8 % (42.0-52.0); Hemoglobin 9.7 g/dL (14.0-18.0); Immature Granulocyte Absolute 0.03 K/mm3 (0.00-0.031); Immature Granulocyte Percent A 0.7 % (0-0.5); Lymphocytes Absolute Auto 0.66 K/mm3 (0.9-3.2); Lymphocytes Percent Auto 14.8 % (18.3-44.2); Mean Corpuscular HGB Conc 30.5 g/dl (32-36); Mean Corpuscular Hemoglobin 32.8 pg (26-34); Mean Corpuscular Volume 107.4 fl (80-100); Mean Platelet Volume 11.3 fl (7.4-10.4); Monocytes Absolute Auto 0.7 K/mm3 (0.1-0.6); Neutrophils Absolute Auto 2.9 K/mm3 (1.3-6.7); Neutrophils Percent Auto 65.2 % (45.5-73.1); Platelet Count Result 135 k/mm3 (150-375); Red Blood Count 2.96 M/mm3 (4.6-6.20); Red Cell Distribution Width 14.6 % (11.5-14.5); White Blood Count 4.5 K/mm3 (4.5-10.0)
[2024-08-31 05:37] LABS: Alanine Aminotransferase 12 U/L (6-50); Albumin Level 3.6 g/dL (3.5-5.1); Alkaline Phosphatase 80 U/L (38-126); Anion Gap 11 mmol/L (4-12); Aspartate Amino Transferase 16 U/L (17-59); Bilirubin,Total 0.6 mg/dL (0.2-1.3); Blood Urea Nitrogen 52 mg/dL (9-20); Carbon Dioxide 26 mmol/L (22-30); Chloride 99 mmol/L (98-107); Estimated CRCL calculation 13 ml/min; Estimated Glomerular Filt Rate 9; Glucose 82 mg/dL (65-110); Magnesium 2.2 mg/dL (1.6-2.3); Phosphorus 3.9 mg/dL (2.5-4.5); Potassium 4.2 mmol/L (3.4-5.0); Sodium 136 mmol/L (137-145)
[2024-08-31 05:40] LABS: Partial Thromboplastin Time 47.2 Seconds (22.3-36.8)
[2024-08-31 05:54] LABS: Anisocytosis 1+; Macrocytosis 1+ (NORMAL); Platelet Estimate Slightly Decreased (Adequate)
[2024-08-31 05:55] LABS: Schistocytes Rare
[2024-08-31] MEDS: HEPARIN SODIUM 5,000 UNITS/ML VIAL 6500 UNITS IV PUSH (06:06)
[2024-08-31] MEDS: LEVOTHYROXINE SODIUM 75 MCG TABLET PO (06:07)
[2024-08-31] MEDS: LEVOTHYROXINE SODIUM 100 MCG TABLET PO (06:07)
[2024-08-31 06:40] LABS: Folic Acid 6.6 ng/mL (2.76->20)
[2024-08-31] MEDS: MIDODRINE HCL 10 MG TABLET PO ×3 (08:04→17:42)
[2024-08-31] MEDS: SEVELAMER CARBONATE 0.8 GM ORAL POWDER PACKET 1.6 GM FEED TUBE ×3 (08:04→17:42)
[2024-08-31] MEDS: PRAVASTATIN SODIUM 20 MG TABLET 40 MG PO (08:04)
[2024-08-31] MEDS: PANTOPRAZOLE SODIUM IV 40 MG VIAL IV PUSH (08:04)
[2024-08-31] MEDS: NOREPINEPHRINE 8 MG/D5W 250 ML 8 MG/250 ML BAG 1.88 MG IV CONT (08:05)
[2024-08-31] MEDS: AZITHROMYCIN 500 MG/NS 250 ML 500 MG/250 ML BAG 250 MG IVPB (08:07)
[2024-08-31] MEDS: HEPARIN SOD/D5W 100 UNITS/ML 25,000 UNITS/250 ML BAG 15 UNITS IV CONT (08:08)
[2024-08-31 08:16] LABS: Glucose Point of Care 84 mg/dl (65-105)
[2024-08-31] MEDS: SODIUM CHLORIDE 0.9% IV 1,000 ML 999 ML IV CONT (08:48)
--- NOTE | 2024-08-31 09:48 | P.PNNP_ITS ---
Progress Note: A&P Assessment and Plan (1) End stage renal disease: Code(s): N18.6 - End stage renal disease Status: Chronic Assessment and Plan: * HD today * continue Friday//Friday dialysis schedule while hospitalized * follow electrolytes, volume status, and clearance (2) Acute on chronic respiratory failure with hypoxia and hypercapnia: Code(s): J96.21 - Acute and chronic respiratory failure with hypoxia; J96.22 - Acute and chronic respiratory failure with hypercapnia Status: Acute Assessment and Plan: * due to several issues: * pulmonary edema * possible pneumonia * obesity hypoventilation * chronic respiratory failure secondary to laryngeal cancer status post laryngectomy and laryngeal tube placement * on mechanical ventilation * fluid removal with dry ultrafiltration and dialysis as tolerated by hemodynamics * empiric antibiotic therapy for pneumonia (3) Hypotension: Code(s): I95.9 - Hypotension, unspecified Status: Acute Assessment and Plan: * as noted since AM on 08/28 * worsened by administration scheduled BP medication on 08/28 as well * was asymptomatic * BP medications on hold * started on oral midodrine therapy * due to early sepsis?? * recent CXR with pneumonia * vasopressor therapy as needed * follow trend of hemodynamics (4) Pneumonia: Code(s): J18.9 - Pneumonia, unspecified organism Status: Acute Assessment and Plan: * as suggested by recent imaging * follow culture data * on antibiotic therapy (5) Hypertension: Code(s): I10 - Essential (primary) hypertension Status: Chronic Assessment and Plan: * BP medications on hold due to hypotension * follow trend of hemodynamics (6) Type 2 diabetes mellitus: Code(s): E11.9 - Type 2 diabetes mellitus without complications Status: Chronic Assessment and Plan: * follow accu-cheks * glycemic control per hospitalist Will continue to follow. L Subjective Date/time seen: 08/31/24 09:48 Interval history: Follow-up for end stage renal disease on hemodialysis. Tolerated dry ultrafiltration yesterday and tolerating dialysis at the time of my visit (seen on HD at 9:35AM); laryngeal tube was switched to a cuffed tracheostomy tube by ENT physician yesterday evening; overnight/early this AM, tracheostomy tube got dislodged and required replaced by the ER physician without any major issues; he remains on mechanical venitlation via cuffed tracheostomy tube; relatively stable hemodynamics noted at this time with ongoing weaning of vasopressor therapy. Exam 2 Narrative: General: WD/WN male in NAD; on mechanical ventilation Heart: normal S1 and S2; no rub Lungs: coarse with decreased breath sounds at bases Abdomen: soft, nontender but mild distension, positive bowel sounds Extremities: no cyanosis or clubbing; trace - 1+ edema in UEs and LEs Skin: warm and intact Objective Data Vital Signs Vital Signs: Vital Signs Temp Pulse Resp BP Pulse Ox O2 Del Method FiO2 08/31/24 09:45 60 122/67 08/31/24 09:30 74 118/89 08/31/24 09:15 57 L 109/65 08/31/24 09:00 57 L 118/66 08/31/24 08:49 58 L 127/64 08/31/24 08:44 57 L 100 Mechanical Ventilation 60 08/31/24 08:30 98.6 F 64 20 122/71 08/31/24 08:30 60 08/31/24 08:05 57 L 112/66 08/31/24 08:05 57 L 112/66 08/31/24 08:00 57 L 112/66 08/31/24 08:00 56 L 23 H 112/66 99 08/31/24 08:00 70 08/31/24 08:00 56 L 08/31/24 06:46 56 L 97/59 L 08/31/24 06:35 56 L 81/54 L 08/31/24 06:17 55 L 118/68 08/31/24 06:06 57 L 111/65 08/31/24 06:00 55 L 22 H 111/65 99 08/31/24 06:00 54 L 08/31/24 05:45 53 L 88/56 L 08/31/24 05:39 58 L 83/51 L 08/31/24 04:38 52 L 100 Mechanical Ventilation 60 08/31/24 04:20 Mechanical Ventilation 60 08/31/24 04:00 70 08/31/24 04:00 58 L 08/31/24 04:00 58 L 91/57 L 08/31/24 04:00 99.3 F 55 L 23 H 92/60 L 97 08/31/24 02:30 52 L 100 Mechanical Ventilation 60 08/31/24 02:29 55 L 103/65 08/31/24 02:00 57 L 08/31/24 02:00 57 L 22 H 103/65 97 08/31/24 00:33 57 L 119/65 08/31/24 00:00 70 08/31/24 00:00 62 08/31/24 00:00 Mechanical Ventilation 60 08/31/24 00:00 98.7 F 62 19 136/69 98 08/30/24 23:48 98.7 F 08/30/24 23:26 52 L 100 Mechanical Ventilation 60 08/30/24 22:46 57 L 94/63 L 08/30/24 22:29 52 L 79/52 L 08/30/24 22:00 98.4 F 55 L 20 90/55 L 100 08/30/24 22:00 51 L 20 90/55 L 100 08/30/24 22:00 63 08/30/24 21:00 63 100 Mechanical Ventilation 60 08/30/24 20:00 98.2 F 64 23 H 133/73 100 08/30/24 20:00 58 L 08/30/24 20:00 70 08/30/24 20:00 Mechanical Ventilation 70 08/30/24 20:00 64 133/73 Intake/Output Intake/Output: Intake & Output 08/28/24 08/29/24 08/30/24 08/31/24 23:59 23:59 23:59 23:59 Intake Total 860 967.4 741.7 624.6 Output Total 0 3000 3000 Balance 860 -2032.6 -2258.3 624.6 Meds/Results Medications: Active Medications Generic Name Dose Route Start Last Admin Trade Name Liz PRN Reason Stop Dose Admin Acetaminophen 650 mg 08/27/24 15:58 Acetaminophen 325 Mg Tablet PO Q4H PRN Mild Pain (1-3) or Fever Dextrose 12.5 gm 08/27/24 23:31 08/30/24 07:50 Dextrose 50% 25 Gm/50 Ml Syringe IV PUSH 12.5 gm PRN PRN Administration Hypoglycemia Protocol Glucagon 1 mg 08/27/24 23:31 Glucagon For Inj 1 Mg Vial IM PRN PRN Hypoglycemia Protocol Glucose 15 gm 08/27/24 23:31 Glucose Oral Gel 15 Gm Of Glucse In 37.5 Gm Tube PO PRN PRN Hypoglycemia Protocol Heparin Sodium (Porcine) 6,500 units 08/30/24 11:51 08/31/24 06:06 Heparin Sodium 5,000 Units/Ml Vial IV PUSH 6,500 units PRN PRN Administration aPTT less than 55 seconds Heparin Sodium (Porcine) 3,500 units 08/30/24 11:51 Heparin Sodium 5,000 Units/Ml Vial IV PUSH PRN PRN aPTT 55 - 70 seconds Dextrose 1,000 mls @ 100 mls/hr 08/27/24 23:31 Dextrose 5% 1,000 Ml IVPB PRN PRN Hypoglycemia Protocol Albumin Human 50 mls @ 999 mls/hr 08/28/24 01:42 08/28/24 12:30 Albutein IVPB 09/27/24 01:41 Infused Q10M PRN Infusion HYPOTENSION Azithromycin 500 mg in 250 mls @ 250 mls/hr 08/29/24 09:00 08/31/24 09:07 Zithromax IVPB 09/03/24 08:59 Infused Q24H ISELA Infusion Norepinephrine Bitartrate 8 mg in 250 mls @ 0 mls/hr 08/29/24 14:25 08/31/24 14:00 Levophed 8 Mg/D5w 250 Ml IV CONT 0 mcg/min .Q0M ISELA 0 mls/hr Titration Protocol 0 MCG/MIN Piperacillin Sod/Tazobactam Sod 2.25 gm in 50 mls @ 100 mls/hr 08/30/24 11:00 08/31/24 17:42 Zosyn 2.25 Gm/Ns 50 Ml IVPB 100 mls/hr Q6HR ISELA Administration Heparin Sodium/Dextrose 25,000 units in 250 mls @ 13 mls/hr 08/30/24 11:55 08/31/24 15:00 Heparin Sodium/D5w 100 Units/Ml IV CONT 1,300 units/hr .[id number] ISELA 13 mls/hr Titration Protocol 1,300 UNITS/HR Insulin Aspart 3 - 6 units 08/29/24 17:00 08/31/24 16:48 Insulin Aspart (*Bkc) 100 Units/Ml SUB-Q Not Given Q4HR ISELA Protocol Levothyroxine Sodium 75 mcg 08/28/24 06:30 08/31/24 06:07 Levothyroxine Sodium 75 Mcg Tablet PO 75 mcg DAILY@0630 ISELA Administration Levothyroxine Sodium 100 mcg 08/28/24 06:30 08/31/24 06:07 Levothyroxine Sodium 100 Mcg Tablet PO 100 mcg DAILY@0630 ISELA Administration Midodrine 10 mg 08/29/24 08:00 08/31/24 17:42 Midodrine Hcl 10 Mg Tablet PO 10 mg TID ISELA Administration Pantoprazole Sodium 40 mg 08/30/24 09:00 08/31/24 08:04 Pantoprazole Sodium Iv 40 Mg Vial IV PUSH 40 mg QAM ISELA Administration Pravastatin Sodium 40 mg 08/28/24 09:00 08/31/24 08:04 Pravastatin Sodium 20 Mg Tablet PO 40 mg DAILY ISELA Administration Sevelamer Carbonate 1.6 gm 08/30/24 13:50 08/31/24 17:42 Sevelamer Carbonate 0.8 Gm Oral Powder Packet FEED TUBE 1.6 gm TIDWM ISELA Administration Sodium Chloride 10 ml 08/29/24 22:00 08/31/24 13:17 Central Line Flush IV PUSH 10 ml Q8HR ISELA Administration Sodium Chloride 20 ml 08/29/24 17:00 08/29/24 23:07 Central Line Flush IV PUSH 10 ml PRN PRN Administration after blood draws Radiology Results: ITS Impressions Abdomen X-Ray 08/30/24 09:26 IMPRESSION: 1: NG tube coiled in the stomach. Venous Doppler Study 08/30/24 10:40 IMPRESSION: 1. Bilateral below the knee deep venous thrombosis in the peroneal veins. Findings were discussed with Annabel Macedo, the nurse caring for the patient, at 10:49 AM. Chest X-Ray 08/31/24 09:41 Impression: 1: Cardiomegaly with persistent pulmonary edema and pleural effusions. 2: Focal right apical opacity which overlies the first costochondral junction which may represent sclerosis at the junction or underlying parenchymal nodule. Consider correlation with CT chest to exclude underlying parenchymal abnormality. Labs Labs: Laboratory Tests 08/31/24 05:05 08/31/24 05:05 Calcium 9.0 Phosphorus 3.9 Magnesium 2.2 Total Bilirubin 0.6 AST 16 L ALT 12 Alkaline Phosphatase 80 Total Protein 6.0 L Albumin 3.6 Vitamin B12 786.0 Folate 6.6 Microbiology 08/29/24 16:22 Sputum Sputum Culture - Preliminary Pseudomonas aeruginosa
--- NOTE | 2024-08-31 10:22 | P.PNINT_ITS ---
Progress Note: A&P Assessment and Plan (1) Acute on chronic respiratory failure with hypoxia and hypercapnia: Code(s): J96.21 - Acute and chronic respiratory failure with hypoxia; J96.22 - Acute and chronic respiratory failure with hypercapnia Status: Acute Assessment and Plan: Acute on chronic respiratory failure secondary to pulmonary edema and possible pneumonia, obesity hypoventilation, chronic respiratory failure secondary to laryngeal cancer status post laryngectomy and laryngeal tube placement 08/29 His laryngeal tubeo cannot be attached to ventilator or BiPAP. An emergent ET tube was inserted through the laryngeal tube to secure airway and attached to mechanical ventilation Due to small size of airway we are having high pressures and gradually increasing mechanical ventilation 08/31 laryngeal tube was switched to a cuffed tracheostomy tube by ENT physician Chest x-ray reviewed and shows persistent pulmonary edema ABG reviewed this morning Continue current ventilator settings with permissive hypercapnia. Wean FiO2 which is currently at 60 per Continue to remove fluid with dialysis with another session plan today He is on empiric antibiotic therapy for pneumonia - see below (2) Hypotension: Code(s): I95.9 - Hypotension, unspecified Status: Acute Assessment and Plan: 1 admission to ICU patient was hypotensive and has been started on Levophed. Patient does have history of hypertension and was on antihypertensive medications. Hypotension could be secondary to hypoxia and acidosis as blood pressure is now improving after patient has been placed on mechanical ventilation. Since he is already volume overloaded he has been started on Levophed to maintain mean arterial pressure to be able to dialyze patient There is also a possibility of sepsis although patient has been afebrile with normal WBC count. He was started on empiric antibiotic for pneumonia which will be continue Blood pressures improved and he is now on 1 mics of Levophed which will be continued and weaned as tolerated. (3) Diabetes: Code(s): E11.9 - Type 2 diabetes mellitus without complications Status: Acute Assessment and Plan: Sliding scale insulin Continue tube feeds advanced to goal (4) Hypothyroidism: Code(s): E03.9 - Hypothyroidism, unspecified Status: Acute Assessment and Plan: Continue levothyroxine (5) 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 - Tracheostomy status Status: Acute Assessment and Plan: See above (6) End-stage renal disease on hemodialysis: Code(s): N18.6 - End stage renal disease; Z99.2 - Dependence on renal dialysis Status: Acute Assessment and Plan: Patient was dialyzed yesterday and will be dialyzed again today with goal to try to remove fluid (7) Pulmonary edema: Qualifiers: Chronicity: acute Qualified Code(s): J81.0 - Acute pulmonary edema Code(s): J81.1 - Chronic pulmonary edema Status: Acute Assessment and Plan: See above (8) Generalized edema: Code(s): R60.1 - Generalized edema Status: Acute Assessment and Plan: See above (9) Sepsis: Code(s): A41.9 - Sepsis, unspecified organism Status: Acute Assessment and Plan: Although patient is afebrile and has had normal WBC. He was started on antibiotics for community-acquired pneumonia considering lung infiltrates on chest x-ray Pneumonia appears to be less likely from clinical picture. His procalcitonin level was low. MRSA screen was negative there is a possibility of him aspirating since he has been eating Continue Zosyn. (10) DVT (deep venous thrombosis): Code(s): I82.409 - Acute embolism and thrombosis of unspecified deep veins of unspecified lower extremity Status: Acute Assessment and Plan: Lower extremity Dopplers done on 08/30 showed Bilateral below the knee deep venous thrombosis in the peroneal veins. Findings were discussed with Annabel Macedo, the nurse caring for the patient, at 10:49 AM. Patient has been started on heparin infusion. A CTA of the chest not done to rule out PE at this point as when I saw the patient patient was already getting dialyzed. Will try to time CTA before next dialysis session. It will also not change director at this point as patient is already on anticoagulation. Will obtain echocardiogram Plan DVT prophylaxis -Lovenox Stress ulcer prophylaxis -PPI Nutrition -advance tube feed Code Status - Full Code Total Critical Care Time - 30 minutes Due to a high probability of clinically significant, life threatening deterioration, the patient required my highest level of preparedness to intervene emergently and I personally spent this critical care time directly and personally managing the patient. This critical care time included obtaining a history; examining the patient; pulse oximetry; ordering and review of studies; arranging urgent treatment with development of a management plan; evaluation of patient's response to treatment; frequent reassessment; and discussions with other providers. It was exclusive of separately billable procedures and treating other patients and teaching time. Please see Assessment and Plan section and the rest of the note for further information on patient assessment and treatment Subjective Date/time seen: 08/31/24 Overnight patient's tracheostomy tube got dislodged but was replaced by the ER physician without any major complication. This morning patient is on mechanical ventilation and denies any new complaints he feels better and denies any shortness of breath or pain. Limited review of system was obtained as patient is on mechanical ventilation. Dialysis nurse at the bedside setting of hemodialysis for him. Plan to remove another 3 L today. Tolerating tube feeds at 20 mL/hour afebrile on 60% FiO2 Review of Systems Review of Systems: ROS unobtainable: Yes unobtainable due to endotracheal tube Exam Narrative: General: Pt is ill-appearing gentleman who appears older than his age. He is awake follows command and is in no distress Lungs/Chest: Decreased bilateral breath sounds overall occasional crackles and decreased breath sound at bases, Cardiac: RRR. Normal S1 S2. No murmurs Circulation: Feet are well Abdomen: Decreased bowel sounds. Morbid Obese. Soft. NT. ND. 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 : Hay in place Neurologic: Awake follows commands with all 4 extremities PERRL Objective Data Vital Signs Vital Signs: Vital Signs - 24 hr 08/30/24 10:30 08/30/24 11:43 08/30/24 12:00 Temperature 36.6 C Pulse Rate 55 L 59 L 58 L Respiratory Rate 23 H Blood Pressure 85/59 L 120/71 Pulse Oximetry 100 99 Oxygen Delivery Mechanical Ventilation Fraction of Inspired Oxygen 80 08/30/24 12:00 08/30/24 12:00 08/30/24 12:00 Temperature Pulse Rate 58 L 63 Respiratory Rate Blood Pressure 120/71 Pulse Oximetry Oxygen Delivery Fraction of Inspired Oxygen 80 08/30/24 12:30 08/30/24 13:30 08/30/24 13:45 Temperature Pulse Rate 64 61 Respiratory Rate Blood Pressure 140/77 127/82 Pulse Oximetry Oxygen Delivery Mechanical Ventilation Fraction of Inspired Oxygen 80 08/30/24 14:00 08/30/24 14:00 08/30/24 14:00 Temperature 36.6 C Pulse Rate 63 63 63 Respiratory Rate 22 H 20 Blood Pressure 124/70 124/70 124/70 Pulse Oximetry 100 100 Oxygen Delivery Fraction of Inspired Oxygen 08/30/24 14:00 08/30/24 14:21 08/30/24 14:21 Temperature Pulse Rate 56 L 2 L Respiratory Rate Blood Pressure 126/66 Pulse Oximetry Oxygen Delivery Fraction of Inspired Oxygen 80 08/30/24 14:30 08/30/24 14:45 08/30/24 15:00 Temperature Pulse Rate 58 L 66 59 L Respiratory Rate Blood Pressure 129/66 134/64 132/71 Pulse Oximetry Oxygen Delivery Fraction of Inspired Oxygen 08/30/24 15:15 08/30/24 15:23 08/30/24 15:30 Temperature Pulse Rate 63 55 L 57 L Respiratory Rate Blood Pressure 131/71 129/65 Pulse Oximetry 100 Oxygen Delivery Mechanical Ventilation Fraction of Inspired Oxygen 70 08/30/24 15:45 08/30/24 16:00 08/30/24 16:00 Temperature 36.5 C Pulse Rate 54 L 58 L 63 Respiratory Rate 24 H Blood Pressure 130/66 127/66 127/66 Pulse Oximetry 100 Oxygen Delivery Fraction of Inspired Oxygen 08/30/24 16:00 08/30/24 16:00 08/30/24 16:00 Temperature Pulse Rate 59 L Respiratory Rate Blood Pressure Pulse Oximetry Oxygen Delivery Mechanical Ventilation Fraction of Inspired Oxygen 70 70 08/30/24 16:00 08/30/24 16:15 08/30/24 16:30 Temperature Pulse Rate 70 60 60 Respiratory Rate Blood Pressure 127/76 130/73 136/76 Pulse Oximetry Oxygen Delivery Fraction of Inspired Oxygen 08/30/24 16:45 08/30/24 17:00 08/30/24 17:12 Temperature Pulse Rate 62 59 L 58 L Respiratory Rate Blood Pressure 124/74 127/68 Pulse Oximetry 100 Oxygen Delivery Mechanical Ventilation Fraction of Inspired Oxygen 70 08/30/24 17:15 08/30/24 17:21 08/30/24 17:30 Temperature 36.3 C L Pulse Rate 57 L 60 59 L Respiratory Rate 20 Blood Pressure 121/60 116/72 136/73 Pulse Oximetry 100 Oxygen Delivery Fraction of Inspired Oxygen 08/30/24 18:00 08/30/24 18:00 08/30/24 18:00 Temperature Pulse Rate 59 L 64 62 Respiratory Rate 22 H Blood Pressure 138/70 115/79 Pulse Oximetry 100 Oxygen Delivery Fraction of Inspired Oxygen 08/30/24 18:15 08/30/24 18:30 08/30/24 20:00 Temperature Pulse Rate 59 L 64 64 Respiratory Rate Blood Pressure 100/59 L 115/79 133/73 Pulse Oximetry Oxygen Delivery Fraction of Inspired Oxygen 08/30/24 20:00 08/30/24 20:00 08/30/24 20:00 Temperature Pulse Rate 58 L Respiratory Rate Blood Pressure Pulse Oximetry Oxygen Delivery Mechanical Ventilation Fraction of Inspired Oxygen 70 70 08/30/24 20:00 08/30/24 21:00 08/30/24 22:00 Temperature 36.8 C Pulse Rate 64 63 63 Respiratory Rate 23 H Blood Pressure 133/73 Pulse Oximetry 100 100 Oxygen Delivery Mechanical Ventilation Fraction of Inspired Oxygen 60 08/30/24 22:00 08/30/24 22:00 08/30/24 22:29 Temperature 36.9 C Pulse Rate 51 L 55 L 52 L Respiratory Rate 20 20 Blood Pressure 90/55 L 90/55 L 79/52 L Pulse Oximetry 100 100 Oxygen Delivery Fraction of Inspired Oxygen 08/30/24 22:46 08/30/24 23:26 08/30/24 23:48 Temperature 37.1 C Pulse Rate 57 L 52 L Respiratory Rate Blood Pressure 94/63 L Pulse Oximetry 100 Oxygen Delivery Mechanical Ventilation Fraction of Inspired Oxygen 60 08/31/24 00:00 08/31/24 00:00 08/31/24 00:00 Temperature 37.1 C Pulse Rate 62 62 Respiratory Rate 19 Blood Pressure 136/69 Pulse Oximetry 98 Oxygen Delivery Mechanical Ventilation Fraction of Inspired Oxygen 60 08/31/24 00:00 08/31/24 00:33 08/31/24 02:00 Temperature Pulse Rate 57 L 57 L Respiratory Rate 22 H Blood Pressure 119/65 103/65 Pulse Oximetry 97 Oxygen Delivery Fraction of Inspired Oxygen 70 08/31/24 02:00 08/31/24 02:29 08/31/24 02:30 Temperature Pulse Rate 57 L 55 L 52 L Respiratory Rate Blood Pressure 103/65 Pulse Oximetry 100 Oxygen Delivery Mechanical Ventilation Fraction of Inspired Oxygen 60 08/31/24 04:00 08/31/24 04:00 08/31/24 04:00 Temperature 37.4 C Pulse Rate 55 L 58 L 58 L Respiratory Rate 23 H Blood Pressure 92/60 L 91/57 L Pulse Oximetry 97 Oxygen Delivery Fraction of Inspired Oxygen 08/31/24 04:00 08/31/24 04:20 08/31/24 04:38 Temperature Pulse Rate 52 L Respiratory Rate Blood Pressure Pulse Oximetry 100 Oxygen Delivery Mechanical Ventilation Mechanical Ventilation Fraction of Inspired Oxygen 70 60 60 08/31/24 05:39 08/31/24 05:45 08/31/24 06:00 Temperature Pulse Rate 58 L 53 L 54 L Respiratory Rate Blood Pressure 83/51 L 88/56 L Pulse Oximetry Oxygen Delivery Fraction of Inspired Oxygen 08/31/24 06:00 08/31/24 06:06 08/31/24 06:17 Temperature Pulse Rate 55 L 57 L 55 L Respiratory Rate 22 H Blood Pressure 111/65 111/65 118/68 Pulse Oximetry 99 Oxygen Delivery Fraction of Inspired Oxygen 08/31/24 06:35 08/31/24 06:46 08/31/24 08:05 Temperature Pulse Rate 56 L 56 L 57 L Respiratory Rate Blood Pressure 81/54 L 97/59 L 112/66 Pulse Oximetry Oxygen Delivery Fraction of Inspired Oxygen 08/31/24 08:05 08/31/24 08:30 08/31/24 08:30 Temperature 37.0 C Pulse Rate 57 L 64 Respiratory Rate 20 Blood Pressure 112/66 122/71 Pulse Oximetry Oxygen Delivery Fraction of Inspired Oxygen 60 08/31/24 08:44 08/31/24 08:49 08/31/24 09:00 Temperature Pulse Rate 57 L 58 L 57 L Respiratory Rate Blood Pressure 127/64 118/66 Pulse Oximetry 100 Oxygen Delivery Mechanical Ventilation Fraction of Inspired Oxygen 60 08/31/24 09:15 08/31/24 09:30 08/31/24 09:45 Temperature Pulse Rate 57 L 74 60 Respiratory Rate Blood Pressure 109/65 118/89 122/67 Pulse Oximetry Oxygen Delivery Fraction of Inspired Oxygen 08/31/24 10:00 08/31/24 10:15 Temperature Pulse Rate 63 57 L Respiratory Rate Blood Pressure 116/65 137/68 Pulse Oximetry Oxygen Delivery Fraction of Inspired Oxygen Intake/Output Intake/Output: Intake & Output 08/28/24 08/29/24 08/30/24 08/31/24 23:59 23:59 23:59 23:59 Intake Total 860 967.4 741.7 182.4 Output Total 0 3000 3000 Balance 860 -2032.6 -2258.3 182.4 Meds/Results Medications: Active Medications Generic Name Dose Route Start Last Admin Trade Name Freq PRN Reason Stop Dose Admin Acetaminophen 650 mg 08/27/24 15:58 Acetaminophen 325 Mg Tablet PO Q4H PRN Mild Pain (1-3) or Fever Dextrose 12.5 gm 08/27/24 23:31 08/30/24 07:50 Dextrose 50% 25 Gm/50 Ml Syringe IV PUSH 12.5 gm PRN PRN Administration Hypoglycemia Protocol Epoetin Shawn-epbx 10,000 units 08/31/24 18:35 Epoetin Shawn-Epbx 10,000 Units/Ml Vial IV PUSH 08/31/24 18:36 ONCE ONE Glucagon 1 mg 08/27/24 23:31 Glucagon For Inj 1 Mg Vial IM PRN PRN Hypoglycemia Protocol Glucose 15 gm 08/27/24 23:31 Glucose Oral Gel 15 Gm Of Glucse In 37.5 Gm Tube PO PRN PRN Hypoglycemia Protocol Heparin Sodium (Porcine) 6,500 units 08/30/24 11:51 08/31/24 06:06 Heparin Sodium 5,000 Units/Ml Vial IV PUSH 6,500 units PRN PRN Administration aPTT less than 55 seconds Heparin Sodium (Porcine) 3,500 units 08/30/24 11:51 Heparin Sodium 5,000 Units/Ml Vial IV PUSH PRN PRN aPTT 55 - 70 seconds Dextrose 1,000 mls @ 100 mls/hr 08/27/24 23:31 Dextrose 5% 1,000 Ml IVPB PRN PRN Hypoglycemia Protocol Albumin Human 50 mls @ 999 mls/hr 08/28/24 01:42 08/28/24 12:30 Albutein IVPB 09/27/24 01:41 Infused Q10M PRN Infusion HYPOTENSION Azithromycin 500 mg in 250 mls @ 250 mls/hr 08/29/24 09:00 08/31/24 08:07 Zithromax IVPB 09/03/24 08:59 250 mls/hr Q24H ISELA Administration Norepinephrine Bitartrate 8 mg in 250 mls @ 0 mls/hr 08/29/24 14:25 08/31/24 08:05 Levophed 8 Mg/D5w 250 Ml IV CONT 1 mcg/min .Q0M ISELA 1.88 mls/hr Administration Protocol 0 MCG/MIN Piperacillin Sod/Tazobactam Sod 2.25 gm in 50 mls @ 100 mls/hr 08/30/24 11:00 08/31/24 06:10 Zosyn 2.25 Gm/Ns 50 Ml IVPB 100 mls/hr Q6HR ISELA Administration Heparin Sodium/Dextrose 25,000 units in 250 mls @ 15 mls/hr 08/30/24 11:55 08/31/24 08:08 Heparin Sodium/D5w 100 Units/Ml IV CONT 1,500 units/hr .[id number] ISELA 15 mls/hr Administration Protocol 1,500 UNITS/HR Insulin Aspart 3 - 6 units 08/29/24 17:00 08/31/24 08:31 Insulin Aspart (*Bkc) 100 Units/Ml SUB-Q Not Given Q4HR ISELA Protocol Levothyroxine Sodium 75 mcg 08/28/24 06:30 08/31/24 06:07 Levothyroxine Sodium 75 Mcg Tablet PO 75 mcg DAILY@0630 ISELA Administration Levothyroxine Sodium 100 mcg 08/28/24 06:30 08/31/24 06:07 Levothyroxine Sodium 100 Mcg Tablet PO 100 mcg DAILY@0630 ISELA Administration Midodrine 10 mg 08/29/24 08:00 08/31/24 08:04 Midodrine Hcl 10 Mg Tablet PO 10 mg TID ISELA Administration Pantoprazole Sodium 40 mg 08/30/24 09:00 08/31/24 08:04 Pantoprazole Sodium Iv 40 Mg Vial IV PUSH 40 mg QAM ISELA Administration Perflutren Lipid Microsphere 0 ml 08/30/24 17:46 Perflutren Lipid Microspheres 1.5 Ml Vial Diluted To 10 Ml Total Volume IV PUSH 09/02/24 17:46 ONCE PRN adequate visualization Protocol Pravastatin Sodium 40 mg 08/28/24 09:00 08/31/24 08:04 Pravastatin Sodium 20 Mg Tablet PO 40 mg DAILY ISELA Administration Sevelamer Carbonate 1.6 gm 08/30/24 13:50 08/31/24 08:04 Sevelamer Carbonate 0.8 Gm Oral Powder Packet FEED TUBE 1.6 gm TIDWM ISELA Administration Sodium Chloride 10 ml 08/29/24 22:00 08/31/24 06:07 Central Line Flush IV PUSH 10 ml Q8HR ISELA Administration Sodium Chloride 20 ml 08/29/24 17:00 08/29/24 23:07 Central Line Flush IV PUSH 10 ml PRN PRN Administration after blood draws Radiology Results: ITS Impressions Abdomen X-Ray 08/30/24 09:26 IMPRESSION: 1: NG tube coiled in the stomach. Venous Doppler Study 08/30/24 10:40 IMPRESSION: 1. Bilateral below the knee deep venous thrombosis in the peroneal veins. Findings were discussed with Annabel Macedo, the nurse caring for the patient, at 10:49 AM. Chest X-Ray 08/31/24 09:41 Impression: 1: Cardiomegaly with persistent pulmonary edema and pleural effusions. 2: Focal right apical opacity which overlies the first costochondral junction which may represent sclerosis at the junction or underlying parenchymal nodule. Consider correlation with CT chest to exclude underlying parenchymal abnormality. Labs Labs: Laboratory Results - last 24 hr 08/30/24 08/30/24 08/30/24 07:25 11:31 12:34 WBC RBC Hgb Hct MCV MCH MCHC RDW Plt Count MPV Immature Gran % (Auto) Neut % (Auto) Lymph % (Auto) [place] % (Auto) Eos % (Auto) Baso % (Auto) Lymph # (Auto) [place] # (Auto) Eos # (Auto) Baso # (Auto) Abs Immat Gran (auto) Absolute Neuts (auto) Absolute Nucleated RBC Band Neutrophils % Nucleated RBC % Platelet Estimate % Immature Plt Fraction Hypochromasia Anisocytosis Microcytosis Macrocytosis Schistocytes PT INR APTT Puncture Site ABG pH ABG pCO2 ABG pO2 ABG PO2/FiO2 Ratio ABG HCO3 ABG O2 Saturation ABG O2 Content ABG Base Excess A-a Gradient Oxyhemoglobin Carboxyhemoglobin Methemoglobin Reduced Hemoglobin Total Hemoglobin O2 Delivery Device O2 Liters/Min Minute Volume Vent Rate Vent Mode FiO2 Tidal Volume PEEP Peak Inspir Pressure Pressure Support Sodium Potassium Chloride Carbon Dioxide Anion Gap BUN Creatinine Estim Creat Clear Calc Estimated GFR Glucose POC Capillary Glucose 71 73 Calcium Phosphorus Magnesium Total Bilirubin AST ALT Alkaline Phosphatase Total Protein Albumin Vitamin B12 Folate Random Vancomycin 19.6 08/30/24 08/30/24 08/30/24 13:12 16:45 19:48 WBC 4.9 RBC 3.22 L Hgb 11.0 L Hct 35.3 L MCV 109.6 H MCH 34.2 H MCHC 31.2 L RDW 14.9 H Plt Count 156 MPV 11.3 H Immature Gran % (Auto) 0.4 Neut % (Auto) 69.5 Lymph % (Auto) 11.9 L [place] % (Auto) 14.8 H Eos % (Auto) 1.8 Baso % (Auto) 1.6 H Lymph # (Auto) 0.58 L [place] # (Auto) 0.7 H Eos # (Auto) 0.1 Baso # (Auto) 0.1 Abs Immat Gran (auto) 0.02 Absolute Neuts (auto) 3.4 Absolute Nucleated RBC 0.000 Band Neutrophils % 0 Nucleated RBC % 0.0 Platelet Estimate Adequate % Immature Plt Fraction Hypochromasia 1+ Anisocytosis 1+ Microcytosis 1+ Macrocytosis 1+ Schistocytes 3+ PT 16.2 H INR 1.3 APTT 38.7 H Puncture Site ABG pH ABG pCO2 ABG pO2 ABG PO2/FiO2 Ratio ABG HCO3 ABG O2 Saturation ABG O2 Content ABG Base Excess A-a Gradient Oxyhemoglobin Carboxyhemoglobin Methemoglobin Reduced Hemoglobin Total Hemoglobin O2 Delivery Device O2 Liters/Min Minute Volume Vent Rate Vent Mode FiO2 Tidal Volume PEEP Peak Inspir Pressure Pressure Support Sodium Potassium Chloride Carbon Dioxide Anion Gap BUN Creatinine Estim Creat Clear Calc Estimated GFR Glucose POC Capillary Glucose 76 156 H Calcium Phosphorus Magnesium Total Bilirubin AST ALT Alkaline Phosphatase Total Protein Albumin Vitamin B12 Folate Random Vancomycin 08/30/24 08/30/24 08/31/24 21:06 23:39 03:46 WBC RBC Hgb Hct MCV MCH MCHC RDW Plt Count MPV Immature Gran % (Auto) Neut % (Auto) Lymph % (Auto) [place] % (Auto) Eos % (Auto) Baso % (Auto) Lymph # (Auto) [place] # (Auto) Eos # (Auto) Baso # (Auto) Abs Immat Gran (auto) Absolute Neuts (auto) Absolute Nucleated RBC Band Neutrophils % Nucleated RBC % Platelet Estimate % Immature Plt Fraction Hypochromasia Anisocytosis Microcytosis Macrocytosis Schistocytes PT INR APTT 133.7 H Puncture Site ABG pH ABG pCO2 ABG pO2 ABG PO2/FiO2 Ratio ABG HCO3 ABG O2 Saturation ABG O2 Content ABG Base Excess A-a Gradient Oxyhemoglobin Carboxyhemoglobin Methemoglobin Reduced Hemoglobin Total Hemoglobin O2 Delivery Device O2 Liters/Min Minute Volume Vent Rate Vent Mode FiO2 Tidal Volume PEEP Peak Inspir Pressure Pressure Support Sodium Potassium Chloride Carbon Dioxide Anion Gap BUN Creatinine Estim Creat Clear Calc Estimated GFR Glucose POC Capillary Glucose 114 H 81 Calcium Phosphorus Magnesium Total Bilirubin AST ALT Alkaline Phosphatase Total Protein Albumin Vitamin B12 Folate Random Vancomycin 08/31/24 08/31/24 08/31/24 04:17 05:05 08:05 WBC 4.5 RBC 2.96 L Hgb 9.7 L Hct 31.8 L MCV 107.4 H MCH 32.8 MCHC 30.5 L RDW 14.6 H Plt Count 135 L MPV 11.3 H Immature Gran % (Auto) 0.7 H Neut % (Auto) 65.2 Lymph % (Auto) 14.8 L [place] % (Auto) 15.0 H Eos % (Auto) 3.4 Baso % (Auto) 0.9 Lymph # (Auto) 0.66 L [place] # (Auto) 0.7 H Eos # (Auto) 0.2 Baso # (Auto) 0.0 Abs Immat Gran (auto) 0.03 Absolute Neuts (auto) 2.9 Absolute Nucleated RBC 0.000 Band Neutrophils % Not Reportable Nucleated RBC % 0.0 Platelet Estimate Slightly decreased % Immature Plt Fraction 5.0 Hypochromasia Anisocytosis 1+ Microcytosis Macrocytosis 1+ Schistocytes Rare PT INR APTT 47.2 H Puncture Site Left radial ABG pH 7.349 L ABG pCO2 45.9 H ABG pO2 120.0 H ABG PO2/FiO2 Ratio 2.00 ABG HCO3 24.7 ABG O2 Saturation 98.2 ABG O2 Content 15.5 L ABG Base Excess -1.1 A-a Gradient 257.3 Oxyhemoglobin 97.9 Carboxyhemoglobin 0.2 Methemoglobin 0.3 Reduced Hemoglobin 1.6 Total Hemoglobin 11.1 L O2 Delivery Device Ventilator O2 Liters/Min Not Reportable Minute Volume Not Reportable Vent Rate 20 Vent Mode Cmv FiO2 60 Tidal Volume 350 PEEP 10 Peak Inspir Pressure Not Reportable Pressure Support Not Reportable Sodium 136 L Potassium 4.2 Chloride 99 Carbon Dioxide 26 Anion Gap 11 BUN 52 H Creatinine 6.60 H Estim Creat Clear Calc 13 Estimated GFR 9 L Glucose 82 POC Capillary Glucose 84 Calcium 9.0 Phosphorus 3.9 Magnesium 2.2 Total Bilirubin 0.6 AST 16 L ALT 12 Alkaline Phosphatase 80 Total Protein 6.0 L Albumin 3.6 Vitamin B12 786.0 Folate 6.6 Random Vancomycin Quality VTE Prophylaxis VTE prophylaxis: mechanical ordered and pharmacologic ordered
[2024-08-31] MEDS: EPOETIN ALFA-EPBX 10,000 UNITS/ML VIAL 10000 UNITS IV PUSH (10:39)
--- NOTE | 2024-08-31 12:37 | PCNFU ---
Nutrition Follow-Up Complete: Inadequate energy intake related to fluid status as evidenced by need for trophic tube feeding Goal: Meet estimated protein energy needs Patient is progressing towards goal. We will continue current goal. Pt current nutrition is Nepro at 40 ml/hr. Nutrition recommendation: Prosource BID. Last recorded weight is 104.3 kg, up from 102 kg on admit. Bowel Motility: Last reported BM 08/24 Labs Reviewed:Cr 6.6, BUN 52, Na 136 Meds Noted:Protonix, Zosyn Skin: WNL Additional Notes: Patient current with Trach. NGT feedings of Nepro. Plans for goal rate today of 40 ml/hr. Spoke with Animal Technician today regarding Protein Modulars. orders for Prosource BID. Total Nutrition: 1744 kcal/111 gm protein/640 ml water. Flush 30 ml q 4 hours. Agree with diet orders. Dialysis today. Monitoring daily in rounds. reassessing TF tolerance, weights, labs, meds, plan of care every Friday/Friday.
[2024-08-31 13:28] LABS: Glucose Point of Care 72 mg/dl (65-105)
[2024-08-31] MEDS: PERFLUTREN LIPID MICROSPHERES 1.5 ML VIAL DILUTED TO 10 ML TOTAL VOLUME IV PUSH (13:35)
[2024-08-31 13:50] LABS: Partial Thromboplastin Time 198.8 Seconds (22.3-36.8)
--- NOTE | 2024-08-31 13:57 | IVDEFINITY ---
Prior to administration of IV Definity the patient was educated on the risks and benefits of the imaging enhancing agent including potential adverse side effects. The patient verbalized understanding. Allergies were verified. No exclusion criteria were identified and at least one of the following inclusion criteria were met: 1) physician request, 2) patient technically difficult to image (per the [place] [employer] guidelines of two or more segments not discernable within the apical view), or 3) questionable left ventricular function. ?
[2024-08-31 16:34] LABS: Glucose Point of Care 100 mg/dl (65-105)
[2024-08-31 20:36] LABS: Partial Thromboplastin Time 84.3 Seconds (22.3-36.8)
[2024-08-31 20:49] LABS: Glucose Point of Care 109 mg/dl (65-105)
[2024-09-01] VITALS (20 sets, daily range): BP systolic 104–142; BP diastolic 57–71; PULSE 53–105; RESP 13–25; TEMP 36.6–37.1; O2SAT 92–100
[2024-09-01] MEDS: CENTRAL LINE FLUSH 10 ML IV PUSH ×4 (00:08→20:12)
[2024-09-01] MEDS: PIPERACILLIN/TAZ 2.25G/NS 50ML 2.25 GM/50 ML BAG IVPB ×5 (00:20→23:33)
[2024-09-01 00:28] LABS: Glucose Point of Care 114 mg/dl (65-105)
[2024-09-01 02:49] LABS: Partial Thromboplastin Time 101.7 Seconds (22.3-36.8)
[2024-09-01] MEDS: HEPARIN SOD/D5W 100 UNITS/ML 25,000 UNITS/250 ML BAG 13 UNITS IV CONT (03:34)
[2024-09-01 04:49] LABS: Alveolar/Arterial O2 Gradient 139.9 mmHg; Carboxyhemoglobin 0.6 % THb (0-2.0); Fractional Inspired Oxygen 40 %; HCO3 ABG 24.6 mEq/l (22.0-26.0); Methemoglobin ABG 0.3 %THb (0-1.5); Oxygen Content ABG 15.4 %vol (16.0-22.0); Oxygen Saturation ABG 97.6 % (95.0-100.0); Oxyhemoglobin 96.8 % THb (90.0-100.0); PCO2 ABG 39.9 mmHg (35.0-45.0); PO2 ABG 99.4 mmHg (80.0-100.0); PO2 FiO2 Ratio Arterial Blood 2.49 %; Reduced Hemoglobin 2.3 %THb (0-5.0); Total Hemoglobin 11.2 g/dL (12.0-18.0); pH ABG 7.408 (7.350-7.450)
[2024-09-01] MEDS: LEVOTHYROXINE SODIUM 100 MCG TABLET PO (05:20)
[2024-09-01] MEDS: LEVOTHYROXINE SODIUM 75 MCG TABLET PO (05:20)
[2024-09-01 05:22] LABS: Glucose Point of Care 110 mg/dl (65-105)
[2024-09-01 05:29] LABS: Basophils Absolute Auto 0.1 K/mm3 (0.0-0.1); Eosinophils Absolute Auto 0.2 K/mm3 (0-0.3); Eosinophils Percent Auto 3.1 % (0-4.4); Hematocrit 32.4 % (42.0-52.0); Hemoglobin 10.2 g/dL (14.0-18.0); Immature Granulocyte Absolute 0.04 K/mm3 (0.00-0.031); Immature Granulocyte Percent A 0.8 % (0-0.5); Immature Platelet Fraction Pct 5.1 % (0.9-11.2); Lymphocytes Absolute Auto 0.57 K/mm3 (0.9-3.2); Lymphocytes Percent Auto 11.1 % (18.3-44.2); Mean Corpuscular HGB Conc 31.5 g/dl (32-36); Mean Corpuscular Hemoglobin 34.1 pg (26-34); Mean Corpuscular Volume 108.4 fl (80-100); Mean Platelet Volume 11.1 fl (7.4-10.4); Monocytes Absolute Auto 0.6 K/mm3 (0.1-0.6); Monocytes Percent Auto 12.5 % (2.6-8.5); Neutrophils Absolute Auto 3.7 K/mm3 (1.3-6.7); Neutrophils Percent Auto 71.5 % (45.5-73.1); Platelet Count Result 125 k/mm3 (150-375); Red Blood Count 2.99 M/mm3 (4.6-6.20); Red Cell Distribution Width 14.9 % (11.5-14.5); White Blood Count 5.1 K/mm3 (4.5-10.0)
[2024-09-01 05:46] LABS: Alanine Aminotransferase 11 U/L (6-50); Albumin Level 3.7 g/dL (3.5-5.1); Alkaline Phosphatase 85 U/L (38-126); Anion Gap 12 mmol/L (4-12); Aspartate Amino Transferase 16 U/L (17-59); Bilirubin,Total 0.6 mg/dL (0.2-1.3); Blood Urea Nitrogen 38 mg/dL (9-20); Carbon Dioxide 29 mmol/L (22-30); Chloride 98 mmol/L (98-107); Estimated CRCL calculation 18 ml/min; Estimated Glomerular Filt Rate 13; Glucose 102 mg/dL (65-110); Magnesium 2.3 mg/dL (1.6-2.3); Phosphorus 2.1 mg/dL (2.5-4.5); Potassium 3.6 mmol/L (3.4-5.0); Sodium 139 mmol/L (137-145)
[2024-09-01 06:08] LABS: Arterial Blood Gas PEEP 10 cmH2O; Arterial Blood Gas Tidal Volume 380 ml; Arterial Blood Gas Vent Mode CMV; Arterial Blood Gas Ventilator rate 20 /MIN; Device VENTILATOR; Modified Allen's Test Pass; Site Drawn LEFT RADIAL
[2024-09-01 07:00] LABS: Anisocytosis 1+; Band Neutrophils Percent 0 % (0-6); Platelet Estimate Slightly Decreased (Adequate); Schistocytes None Seen
[2024-09-01 07:01] LABS: Hypochromasia 1+
[2024-09-01 07:16] LABS: Glucose Point of Care 99 mg/dl (65-105)
[2024-09-01] MEDS: AZITHROMYCIN 500 MG/NS 250 ML 500 MG/250 ML BAG 250 MG IVPB (07:48)
[2024-09-01] MEDS: PRAVASTATIN SODIUM 20 MG TABLET 40 MG PO (07:48)
[2024-09-01] MEDS: MIDODRINE HCL 10 MG TABLET PO ×3 (07:48→16:03)
[2024-09-01] MEDS: PANTOPRAZOLE SODIUM IV 40 MG VIAL IV PUSH (07:48)
[2024-09-01] MEDS: SEVELAMER CARBONATE 0.8 GM ORAL POWDER PACKET 1.6 GM FEED TUBE ×3 (07:48→16:03)
--- NOTE | 2024-09-01 10:31 | WPDINTPN ---
Progress Note: A&P Assessment and Plan (1) Acute on chronic respiratory failure with hypoxia and hypercapnia: Code(s): J96.21 - Acute and chronic respiratory failure with hypoxia; J96.22 - Acute and chronic respiratory failure with hypercapnia Status: Acute Assessment and Plan: Acute on chronic respiratory failure secondary to pulmonary edema and possible pneumonia, obesity hypoventilation, chronic respiratory failure secondary to laryngeal cancer status post laryngectomy and laryngeal tube placement 08/29 His laryngeal tube cannot be attached to ventilator or BiPAP. An emergent ET tube was inserted through the laryngeal tube to secure airway and attached to mechanical ventilation Due to small size of airway we are having high pressures and gradually increasing mechanical ventilation 08/31 laryngeal tube was switched to a cuffed tracheostomy tube by ENT physician ABG and chest x-ray reviewed Decrease PEEP to 8. FiO2 weaned out of 35%. Continue to remove fluid dialysis He is on empiric antibiotic therapy for pneumonia - see below (2) Hypotension: Code(s): I95.9 - Hypotension, unspecified Status: Acute Assessment and Plan: 1 admission to ICU patient was hypotensive and has been started on Levophed. Patient does have history of hypertension and was on antihypertensive medications. Hypotension could be secondary to hypoxia and acidosis as blood pressure is now improving after patient has been placed on mechanical ventilation. Since he is already volume overloaded he has been started on Levophed to maintain mean arterial pressure to be able to dialyze patient There is also a possibility of sepsis although patient has been afebrile with normal WBC count. 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 - Tracheostomy status Status: Acute Assessment and Plan: See above (6) End-stage renal disease on hemodialysis: Code(s): N18.6 - End stage renal disease; Z99.2 - Dependence on renal dialysis Status: Acute Assessment and Plan: Patient was dialyzed yesterday and will be dialyzed again tomorrow with goal to try to remove fluid (7) Pulmonary edema: Qualifiers: Chronicity: acute Qualified Code(s): J81.0 - Acute pulmonary edema Code(s): J81.1 - Chronic pulmonary edema Status: Acute Assessment and Plan: See above (8) Generalized edema: Code(s): R60.1 - Generalized edema Status: Acute Assessment and Plan: See above (9) Sepsis: Code(s): A41.9 - Sepsis, unspecified organism Status: Acute Assessment and Plan: Although patient is afebrile and has had normal WBC. He was started on antibiotics for community-acquired pneumonia considering lung infiltrates on chest x-ray Pneumonia appears to be less likely from clinical picture. His procalcitonin level was low. He sputum culture is growing Pseudomonas which is pansensitive MRSA screen was negative there is a possibility of him aspirating since he has been eating Continue Zosyn. (10) DVT (deep venous thrombosis): Code(s): I82.409 - Acute embolism and thrombosis of unspecified deep veins of unspecified lower extremity Status: Acute Assessment and Plan: Lower extremity Dopplers done on 08/30 showed Bilateral below the knee deep venous thrombosis in the peroneal veins. Findings were discussed with Annabel Macedo, the nurse caring for the patient, at 10:49 AM. Patient is bedridden and ventilator dependent and high risk of further worsening of DVT. Patient has been started on heparin infusion and has been tolerating. I do not anticipate any procedures at this time and side will start him on Eliquis A CTA of the chest not done to rule out PE at this point as when I saw the patient patient was already getting dialyzed. Will try to time CTA before next dialysis session which will be 4/3. It will also not place change roof bolter at this point as patient is already on anticoagulation. Echo Summary 1. Left ventricular chamber dimension is normal. 2. Left ventricular systolic function is normal, estimated at 50-55%. 3. There is mildly increased left ventricular wall thickness. 4. The left ventricular diastolic function is grade I diastolic dysfunction. 5. Right ventricular chamber dimension is moderately enlarged. 6. Right ventricular systolic function is reduced. 7. Right atrial chamber dimension is moderately enlarged. 8. There is mild mitral valve regurgitation. 9. There is moderate tricuspid valve regurgitation. 10. Estimated pulmonary arterial systolic pressure is 57 mmHg. 11. Dilated inferior vena cava with no collapse upon inspiration consistent with elevated right atrial pressure, 15 mmHg. Plan DVT prophylaxis -Lovenox Stress ulcer prophylaxis -PPI Nutrition - continue tube feed Code Status - Full Code Total Critical Care Time - 30 minutes Due to a high probability of clinically significant, life threatening deterioration, the patient required my highest level of preparedness to intervene emergently and I personally spent this critical care time directly and personally managing the patient. This critical care time included obtaining a history; examining the patient; pulse oximetry; ordering and review of studies; arranging urgent treatment with development of a management plan; evaluation of patient's response to treatment; frequent reassessment; and discussions with other providers. It was exclusive of separately billable procedures and treating other patients and teaching time. Please see Assessment and Plan section and the rest of the note for further information on patient assessment and treatment Subjective Date/time seen: 09/01/24 Patient was dialyzed yesterday and 3 L fluid was removed. He continues to be on mechanical ventilation and FiO2 is down to 40%. He is awake alert and denies any complaint. Nodes is had no to pain shortness a breath chest pain cough belly pain nausea vomiting. Tolerating tube feeds. Afebrile. Review of Systems Review of Systems: ROS unobtainable: Yes unobtainable due to endotracheal tube Exam Narrative: General: Pt is ill-appearing gentleman who appears older than his age. He is awake follows command and is in no distress Lungs/Chest: Decreased bilateral breath sounds overall occasional crackles and decreased breath sound at bases, Cardiac: RRR. Normal S1 S2. No murmurs Circulation: Feet are well Abdomen: Decreased bowel sounds. Morbid Obese. Soft. NT. ND. 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 : Hay in place Neurologic: Awake follows commands with all 4 extremities PERRL Objective Data Vital Signs Vital Signs: Vital Signs - 24 hr 08/31/24 10:45 08/31/24 11:00 08/31/24 11:00 Temperature Pulse Rate 54 L 59 L 61 Respiratory Rate Blood Pressure 120/63 115/65 121/65 Pulse Oximetry Oxygen Delivery Fraction of Inspired Oxygen 08/31/24 11:15 08/31/24 11:30 08/31/24 11:45 Temperature Pulse Rate 60 62 62 Respiratory Rate Blood Pressure 124/65 121/65 130/72 Pulse Oximetry Oxygen Delivery Fraction of Inspired Oxygen 08/31/24 12:00 08/31/24 12:00 08/31/24 12:00 Temperature Pulse Rate 62 61 61 Respiratory Rate 16 Blood Pressure 130/68 130/68 Pulse Oximetry 100 Oxygen Delivery Fraction of Inspired Oxygen 08/31/24 12:00 08/31/24 12:00 08/31/24 12:07 Temperature Pulse Rate 59 L 57 L Respiratory Rate Blood Pressure 130/68 Pulse Oximetry 100 Oxygen Delivery Mechanical Ventilation Fraction of Inspired Oxygen 70 50 08/31/24 12:15 08/31/24 12:25 08/31/24 13:04 Temperature 36.7 C Pulse Rate 59 L 67 67 Respiratory Rate 18 Blood Pressure 136/73 136/75 136/75 Pulse Oximetry Oxygen Delivery Fraction of Inspired Oxygen 08/31/24 14:00 08/31/24 14:00 08/31/24 14:00 Temperature Pulse Rate 61 61 61 Respiratory Rate 20 Blood Pressure 136/75 124/67 Pulse Oximetry 98 Oxygen Delivery Fraction of Inspired Oxygen 08/31/24 15:54 08/31/24 16:00 08/31/24 16:00 Temperature Pulse Rate 60 60 60 Respiratory Rate 20 Blood Pressure 124/67 Pulse Oximetry 100 98 Oxygen Delivery Mechanical Ventilation Fraction of Inspired Oxygen 40 08/31/24 16:00 08/31/24 18:19 08/31/24 20:00 Temperature Pulse Rate 71 59 L Respiratory Rate Blood Pressure Pulse Oximetry 100 Oxygen Delivery Mechanical Ventilation Fraction of Inspired Oxygen 70 40 08/31/24 20:00 08/31/24 20:00 08/31/24 20:00 Temperature 36.8 C Pulse Rate 59 L 59 L Respiratory Rate 19 19 Blood Pressure 116/60 Pulse Oximetry 99 99 Oxygen Delivery Mechanical Ventilation Fraction of Inspired Oxygen 70 70 08/31/24 20:34 08/31/24 22:00 08/31/24 22:00 Temperature Pulse Rate 63 57 L 57 L Respiratory Rate 20 Blood Pressure 97/51 L Pulse Oximetry 99 100 Oxygen Delivery Mechanical Ventilation Fraction of Inspired Oxygen 40 08/31/24 23:02 09/01/24 00:00 09/01/24 00:00 Temperature Pulse Rate 65 59 L 62 Respiratory Rate 15 Blood Pressure Pulse Oximetry 99 100 Oxygen Delivery Mechanical Ventilation Mechanical Ventilation Fraction of Inspired Oxygen 40 70 09/01/24 00:00 09/01/24 00:00 09/01/24 02:00 Temperature 36.6 C Pulse Rate 59 L 60 Respiratory Rate 15 17 Blood Pressure 111/62 112/64 Pulse Oximetry 100 99 Oxygen Delivery Fraction of Inspired Oxygen 70 09/01/24 02:00 09/01/24 02:42 09/01/24 04:00 Temperature Pulse Rate 60 58 L 60 Respiratory Rate 13 Blood Pressure Pulse Oximetry 99 100 Oxygen Delivery Mechanical Ventilation Mechanical Ventilation Fraction of Inspired Oxygen 40 70 09/01/24 04:00 09/01/24 04:00 09/01/24 04:00 Temperature 36.8 C Pulse Rate 60 63 Respiratory Rate 15 Blood Pressure 124/66 Pulse Oximetry 100 Oxygen Delivery Fraction of Inspired Oxygen 70 09/01/24 04:40 09/01/24 06:00 09/01/24 06:00 Temperature Pulse Rate 60 59 L 59 L Respiratory Rate 13 Blood Pressure 120/67 Pulse Oximetry 99 99 Oxygen Delivery Mechanical Ventilation Fraction of Inspired Oxygen 40 09/01/24 08:00 09/01/24 08:00 09/01/24 08:00 Temperature 36.8 C Pulse Rate 66 67 64 Respiratory Rate 22 H Blood Pressure 115/62 115/62 Pulse Oximetry 97 Oxygen Delivery Fraction of Inspired Oxygen 09/01/24 08:00 09/01/24 08:00 09/01/24 08:24 Temperature Pulse Rate 66 Respiratory Rate Blood Pressure Pulse Oximetry 96 Oxygen Delivery Mechanical Ventilation Mechanical Ventilation Fraction of Inspired Oxygen 35 35 40 09/01/24 09:00 09/01/24 10:00 09/01/24 10:00 Temperature 37.1 C Pulse Rate 62 70 Respiratory Rate 20 Blood Pressure 135/63 Pulse Oximetry 97 Oxygen Delivery Fraction of Inspired Oxygen 35 Intake/Output Intake/Output: Intake & Output 08/29/24 08/30/24 08/31/24 09/01/24 23:59 23:59 23:59 23:59 Intake Total 967.4 741.7 746.1 1475.4 Output Total 3000 3000 3000 0 Balance -2032.6 -2258.3 -2253.9 1475.4 Meds/Results Medications: Active Medications Generic Name Dose Route Start Last Admin Trade Name Freq PRN Reason Stop Dose Admin Acetaminophen 650 mg 08/27/24 15:58 Acetaminophen 325 Mg Tablet PO Q4H PRN Mild Pain (1-3) or Fever Dextrose 12.5 gm 08/27/24 23:31 08/30/24 07:50 Dextrose 50% 25 Gm/50 Ml Syringe IV PUSH 12.5 gm PRN PRN Administration Hypoglycemia Protocol Glucagon 1 mg 08/27/24 23:31 Glucagon For Inj 1 Mg Vial IM PRN PRN Hypoglycemia Protocol Glucose 15 gm 08/27/24 23:31 Glucose Oral Gel 15 Gm Of Glucse In 37.5 Gm Tube PO PRN PRN Hypoglycemia Protocol Heparin Sodium (Porcine) 6,500 units 08/30/24 11:51 08/31/24 06:06 Heparin Sodium 5,000 Units/Ml Vial IV PUSH 6,500 units PRN PRN Administration aPTT less than 55 seconds Heparin Sodium (Porcine) 3,500 units 08/30/24 11:51 Heparin Sodium 5,000 Units/Ml Vial IV PUSH PRN PRN aPTT 55 - 70 seconds Dextrose 1,000 mls @ 100 mls/hr 08/27/24 23:31 Dextrose 5% 1,000 Ml IVPB PRN PRN Hypoglycemia Protocol Albumin Human 50 mls @ 999 mls/hr 08/28/24 01:42 08/28/24 12:30 Albutein IVPB 09/27/24 01:41 Infused Q10M PRN Infusion HYPOTENSION Azithromycin 500 mg in 250 mls @ 250 mls/hr 08/29/24 09:00 09/01/24 07:48 Zithromax IVPB 09/03/24 08:59 250 mls/hr Q24H ISELA Administration Norepinephrine Bitartrate 8 mg in 250 mls @ 0 mls/hr 08/29/24 14:25 09/01/24 08:00 Levophed 8 Mg/D5w 250 Ml IV CONT Infused .Q0M ISELA Titration Protocol 0 MCG/MIN Piperacillin Sod/Tazobactam Sod 2.25 gm in 50 mls @ 100 mls/hr 08/30/24 11:00 09/01/24 05:51 Zosyn 2.25 Gm/Ns 50 Ml IVPB Infused Q6HR ISELA Infusion Heparin Sodium/Dextrose 25,000 units in 250 mls @ 13 mls/hr 08/30/24 11:55 09/01/24 07:00 Heparin Sodium/D5w 100 Units/Ml IV CONT 1,300 units/hr .[id number] ISELA 13 mls/hr Titration Protocol 1,300 UNITS/HR Insulin Aspart 3 - 6 units 08/29/24 17:00 09/01/24 07:47 Insulin Aspart (*Bkc) 100 Units/Ml SUB-Q Not Given Q4HR ISELA Protocol Levothyroxine Sodium 75 mcg 08/28/24 06:30 09/01/24 05:20 Levothyroxine Sodium 75 Mcg Tablet PO 75 mcg DAILY@0630 ISELA Administration Levothyroxine Sodium 100 mcg 08/28/24 06:30 09/01/24 05:20 Levothyroxine Sodium 100 Mcg Tablet PO 100 mcg DAILY@0630 ISELA Administration Midodrine 10 mg 08/29/24 08:00 09/01/24 07:48 Midodrine Hcl 10 Mg Tablet PO 10 mg TID ISELA Administration Pantoprazole Sodium 40 mg 08/30/24 09:00 09/01/24 07:48 Pantoprazole Sodium Iv 40 Mg Vial IV PUSH 40 mg QAM ISELA Administration Pravastatin Sodium 40 mg 08/28/24 09:00 09/01/24 07:48 Pravastatin Sodium 20 Mg Tablet PO 40 mg DAILY ISELA Administration Sevelamer Carbonate 1.6 gm 08/30/24 13:50 09/01/24 07:48 Sevelamer Carbonate 0.8 Gm Oral Powder Packet FEED TUBE 1.6 gm TIDWM ISELA Administration Sodium Chloride 10 ml 08/29/24 22:00 09/01/24 05:21 Central Line Flush IV PUSH 10 ml Q8HR ISELA Administration Sodium Chloride 20 ml 08/29/24 17:00 08/29/24 23:07 Central Line Flush IV PUSH 10 ml PRN PRN Administration after blood draws Radiology Results: ITS Impressions Abdomen X-Ray 08/30/24 09:26 IMPRESSION: 1: NG tube coiled in the stomach. Venous Doppler Study 08/30/24 10:40 IMPRESSION: 1. Bilateral below the knee deep venous thrombosis in the peroneal veins. Findings were discussed with Annabel Macedo, the nurse caring for the patient, at 10:49 AM. Chest X-Ray 08/31/24 09:41 Impression: 1: Cardiomegaly with persistent pulmonary edema and pleural effusions. 2: Focal right apical opacity which overlies the first costochondral junction which may represent sclerosis at the junction or underlying parenchymal nodule. Consider correlation with CT chest to exclude underlying parenchymal abnormality. Labs Labs: Laboratory Results - last 24 hr 08/31/24 08/31/24 08/31/24 13:04 13:26 16:27 WBC RBC Hgb Hct MCV MCH MCHC RDW Plt Count MPV Immature Gran % (Auto) Neut % (Auto) Lymph % (Auto) Miller % (Auto) Eos % (Auto) Baso % (Auto) Lymph # (Auto) Miller # (Auto) Eos # (Auto) Baso # (Auto) Abs Immat Gran (auto) Absolute Neuts (auto) Absolute Nucleated RBC Band Neutrophils % Nucleated RBC % Platelet Estimate % Immature Plt Fraction Hypochromasia Anisocytosis Schistocytes APTT 198.8 H* Puncture Site ABG pH ABG pCO2 ABG pO2 ABG PO2/FiO2 Ratio ABG HCO3 ABG O2 Saturation ABG O2 Content ABG Base Excess A-a Gradient Oxyhemoglobin Carboxyhemoglobin Methemoglobin Reduced Hemoglobin Total Hemoglobin O2 Delivery Device O2 Liters/Min Minute Volume Vent Rate Vent Mode FiO2 Tidal Volume PEEP Peak Inspir Pressure Pressure Support Sodium Potassium Chloride Carbon Dioxide Anion Gap BUN Creatinine Estim Creat Clear Calc Estimated GFR Glucose POC Capillary Glucose 72 100 Calcium Phosphorus Magnesium Total Bilirubin AST ALT Alkaline Phosphatase Total Protein Albumin 08/31/24 08/31/24 09/01/24 20:16 20:19 00:25 WBC RBC Hgb Hct MCV MCH MCHC RDW Plt Count MPV Immature Gran % (Auto) Neut % (Auto) Lymph % (Auto) Miller % (Auto) Eos % (Auto) Baso % (Auto) Lymph # (Auto) Miller # (Auto) Eos # (Auto) Baso # (Auto) Abs Immat Gran (auto) Absolute Neuts (auto) Absolute Nucleated RBC Band Neutrophils % Nucleated RBC % Platelet Estimate % Immature Plt Fraction Hypochromasia Anisocytosis Schistocytes APTT 84.3 H Puncture Site ABG pH ABG pCO2 ABG pO2 ABG PO2/FiO2 Ratio ABG HCO3 ABG O2 Saturation ABG O2 Content ABG Base Excess A-a Gradient Oxyhemoglobin Carboxyhemoglobin Methemoglobin Reduced Hemoglobin Total Hemoglobin O2 Delivery Device O2 Liters/Min Minute Volume Vent Rate Vent Mode FiO2 Tidal Volume PEEP Peak Inspir Pressure Pressure Support Sodium Potassium Chloride Carbon Dioxide Anion Gap BUN Creatinine Estim Creat Clear Calc Estimated GFR Glucose POC Capillary Glucose 109 H 114 H Calcium Phosphorus Magnesium Total Bilirubin AST ALT Alkaline Phosphatase Total Protein Albumin 09/01/24 09/01/24 09/01/24 02:31 04:34 05:13 WBC 5.1 RBC 2.99 L Hgb 10.2 L Hct 32.4 L MCV 108.4 H MCH 34.1 H MCHC 31.5 L RDW 14.9 H Plt Count 125 L MPV 11.1 H Immature Gran % (Auto) 0.8 H Neut % (Auto) 71.5 Lymph % (Auto) 11.1 L Miller % (Auto) 12.5 H Eos % (Auto) 3.1 Baso % (Auto) 1.0 Lymph # (Auto) 0.57 L Miller # (Auto) 0.6 Eos # (Auto) 0.2 Baso # (Auto) 0.1 Abs Immat Gran (auto) 0.04 H Absolute Neuts (auto) 3.7 Absolute Nucleated RBC 0.000 Band Neutrophils % 0 Nucleated RBC % 0.0 Platelet Estimate Slightly decreased % Immature Plt Fraction 5.1 Hypochromasia 1+ Anisocytosis 1+ Schistocytes None seen APTT 101.7 H Puncture Site Left radial ABG pH 7.408 ABG pCO2 39.9 ABG pO2 99.4 ABG PO2/FiO2 Ratio 2.49 ABG HCO3 24.6 ABG O2 Saturation 97.6 ABG O2 Content 15.4 L ABG Base Excess 0.0 A-a Gradient 139.9 Oxyhemoglobin 96.8 Carboxyhemoglobin 0.6 Methemoglobin 0.3 Reduced Hemoglobin 2.3 Total Hemoglobin 11.2 L O2 Delivery Device Ventilator O2 Liters/Min Not Reportable Minute Volume Not Reportable Vent Rate 20 Vent Mode Cmv FiO2 40 Tidal Volume 380 PEEP 10 Peak Inspir Pressure Not Reportable Pressure Support Not Reportable Sodium 139 Potassium 3.6 Chloride 98 Carbon Dioxide 29 Anion Gap 12 BUN 38 H D Creatinine 4.73 H Estim Creat Clear Calc 18 Estimated GFR 13 L Glucose 102 POC Capillary Glucose Calcium 9.0 Phosphorus 2.1 L Magnesium 2.3 Total Bilirubin 0.6 AST 16 L ALT 11 Alkaline Phosphatase 85 Total Protein 7.0 Albumin 3.7 09/01/24 09/01/24 05:15 07:13 WBC RBC Hgb Hct MCV MCH MCHC RDW Plt Count MPV Immature Gran % (Auto) Neut % (Auto) Lymph % (Auto) Miller % (Auto) Eos % (Auto) Baso % (Auto) Lymph # (Auto) Miller # (Auto) Eos # (Auto) Baso # (Auto) Abs Immat Gran (auto) Absolute Neuts (auto) Absolute Nucleated RBC Band Neutrophils % Nucleated RBC % Platelet Estimate % Immature Plt Fraction Hypochromasia Anisocytosis Schistocytes APTT Puncture Site ABG pH ABG pCO2 ABG pO2 ABG PO2/FiO2 Ratio ABG HCO3 ABG O2 Saturation ABG O2 Content ABG Base Excess A-a Gradient Oxyhemoglobin Carboxyhemoglobin Methemoglobin Reduced Hemoglobin Total Hemoglobin O2 Delivery Device O2 Liters/Min Minute Volume Vent Rate Vent Mode FiO2 Tidal Volume PEEP Peak Inspir Pressure Pressure Support Sodium Potassium Chloride Carbon Dioxide Anion Gap BUN Creatinine Estim Creat Clear Calc Estimated GFR Glucose POC Capillary Glucose 110 H 99 Calcium Phosphorus Magnesium Total Bilirubin AST ALT Alkaline Phosphatase Total Protein Albumin Quality VTE Prophylaxis VTE prophylaxis: mechanical ordered and pharmacologic ordered
--- NOTE | 2024-09-01 10:54 | PCFNICU ---
ICU Rounding Note: Pt current nutrition is Nepro at 40 ml/hr with Prosource BID. Last recorded weight is 99.4 kg, down from 102 kg on admit. Dialysis pt. Bowel Motility: +BM reported 09/01 Labs Reviewed: PO4 2.1, BUN 38, Cr 4.73 Meds Noted: Levophed, Zosyn. Skin: WNL Additional Notes: Patient current with Trach. Tube feedings are being tolerated of Nepro at 40 ml/hr with Prosource BID. Flush 30 ml q 4hours. Dialysis 08/31. Agree with diet orders. Following daily in ICU rounds. Monitoring TF tolerance, weights, labs, meds, plan of care Follow up Friday/Friday.
[2024-09-01] MEDS: APIXABAN 5 MG TABLET 10 MG PO ×2 (11:01→20:11)
[2024-09-01 11:26] LABS: Glucose Point of Care 109 mg/dl (65-105)
--- NOTE | 2024-09-01 12:05 | P.PNNP_ITS ---
Progress Note: A&P Assessment and Plan (1) End stage renal disease: Code(s): N18.6 - End stage renal disease Status: Chronic Assessment and Plan: * HD tomorrow * continue Friday//Friday dialysis schedule while hospitalized * follow electrolytes, volume status, and clearance (2) Acute on chronic respiratory failure with hypoxia and hypercapnia: Code(s): J96.21 - Acute and chronic respiratory failure with hypoxia; J96.22 - Acute and chronic respiratory failure with hypercapnia Status: Acute Assessment and Plan: * due to several issues: * pulmonary edema * possible pneumonia * obesity hypoventilation * chronic respiratory failure secondary to laryngeal cancer status post laryngectomy and laryngeal tube placement * on mechanical ventilation * fluid removal with dry ultrafiltration and dialysis as tolerated by hemodynamics * antibiotic therapy for pneumonia (3) Hypotension: Code(s): I95.9 - Hypotension, unspecified Status: Acute Assessment and Plan: * resolving * as noted since AM on 08/28 * worsened by administration scheduled BP medication on 08/28 as well * was asymptomatic * BP medications on hold * on oral midodrine therapy * due to early sepsis?? * recent CXR with pneumonia * vasopressor therapy as needed * follow trend of hemodynamics (4) Pneumonia: Code(s): J18.9 - Pneumonia, unspecified organism Status: Acute Assessment and Plan: * as suggested by recent imaging * follow culture data * on antibiotic therapy (5) Hypertension: Code(s): I10 - Essential (primary) hypertension Status: Chronic Assessment and Plan: * BP medications on hold due to hypotension * follow trend of hemodynamics (6) Type 2 diabetes mellitus: Code(s): E11.9 - Type 2 diabetes mellitus without complications Status: Chronic Assessment and Plan: * follow accu-cheks * glycemic control per hospitalist Will continue to follow. L Subjective Date/time seen: 09/01/24 12:05 Interval history: Follow-up for end stage renal disease on hemodialysis. Tolerated dialysis treatment yesterday without any issues or problems; stable hemodynamics and off levophed gtt at this time; breathing/respiratory status seems stable if not improved; no acute complaints voiced at the time of my visit; no other events overnight or earlier this morning. Exam 2 Narrative: General: WD/WN male in NAD; on mechanical ventilation Heart: normal S1 and S2; no rub Lungs: coarse with decreased breath sounds at bases Abdomen: soft, nontender but mild distension, positive bowel sounds Extremities: no cyanosis or clubbing; trace - 1+ edema in UEs and LEs Skin: warm and intact Objective Data Vital Signs Vital Signs: Vital Signs Temp Pulse Resp BP Pulse Ox O2 Del Method FiO2 09/01/24 12:00 98.2 F 53 L 25 H 104/57 L 96 09/01/24 11:08 56 L 95 Mechanical Ventilation 35 09/01/24 10:00 98.8 F 70 20 135/63 97 09/01/24 10:00 62 09/01/24 09:00 35 09/01/24 08:24 66 96 Mechanical Ventilation 40 09/01/24 08:00 64 16 92 Mechanical Ventilation 35 09/01/24 08:00 35 09/01/24 08:00 64 09/01/24 08:00 98.3 F 67 22 H 115/62 97 09/01/24 08:00 66 115/62 09/01/24 06:00 59 L 13 120/67 99 09/01/24 06:00 59 L 09/01/24 04:40 60 99 Mechanical Ventilation 40 09/01/24 04:00 98.2 F 63 15 124/66 100 09/01/24 04:00 70 09/01/24 04:00 60 09/01/24 04:00 60 13 100 Mechanical Ventilation 70 09/01/24 02:42 58 L 99 Mechanical Ventilation 40 09/01/24 02:00 60 09/01/24 02:00 60 17 112/64 99 09/01/24 00:00 97.8 F 59 L 15 111/62 100 09/01/24 00:00 70 09/01/24 00:00 62 09/01/24 00:00 59 L 15 100 Mechanical Ventilation 70 08/31/24 23:02 65 99 Mechanical Ventilation 40 08/31/24 22:00 57 L 20 97/51 L 100 08/31/24 22:00 57 L 08/31/24 20:34 63 99 Mechanical Ventilation 40 08/31/24 20:00 70 08/31/24 20:00 59 L 19 99 Mechanical Ventilation 70 08/31/24 20:00 98.3 F 59 L 19 116/60 99 08/31/24 20:00 59 L 08/31/24 18:19 71 100 Mechanical Ventilation 40 Intake/Output Intake/Output: Intake & Output 08/29/24 08/30/24 08/31/24 09/01/24 23:59 23:59 23:59 23:59 Intake Total 967.4 741.7 746.1 1828.5 Output Total 3000 3000 3000 0 Balance -2032.6 -2258.3 -2253.9 1828.5 Meds/Results Medications: Active Medications Generic Name Dose Route Start Last Admin Trade Name Freq PRN Reason Stop Dose Admin Acetaminophen 650 mg 08/27/24 15:58 Acetaminophen 325 Mg Tablet PO Q4H PRN Mild Pain (1-3) or Fever Apixaban 10 mg 09/01/24 10:40 09/01/24 11:01 Apixaban 5 Mg Tablet PO 09/07/24 21:01 10 mg Q12HR ISELA Administration Apixaban 5 mg 09/08/24 09:00 Apixaban 5 Mg Tablet PO Q12HR ISELA Dextrose 12.5 gm 08/27/24 23:31 08/30/24 07:50 Dextrose 50% 25 Gm/50 Ml Syringe IV PUSH 12.5 gm PRN PRN Administration Hypoglycemia Protocol Glucagon 1 mg 08/27/24 23:31 Glucagon For Inj 1 Mg Vial IM PRN PRN Hypoglycemia Protocol Glucose 15 gm 08/27/24 23:31 Glucose Oral Gel 15 Gm Of Glucse In 37.5 Gm Tube PO PRN PRN Hypoglycemia Protocol Dextrose 1,000 mls @ 100 mls/hr 08/27/24 23:31 Dextrose 5% 1,000 Ml IVPB PRN PRN Hypoglycemia Protocol Albumin Human 50 mls @ 999 mls/hr 08/28/24 01:42 08/28/24 12:30 Albutein IVPB 09/27/24 01:41 Infused Q10M PRN Infusion HYPOTENSION Azithromycin 500 mg in 250 mls @ 250 mls/hr 08/29/24 09:00 09/01/24 08:48 Zithromax IVPB 09/03/24 08:59 Infused Q24H ISELA Infusion Norepinephrine Bitartrate 8 mg in 250 mls @ 0 mls/hr 08/29/24 14:25 09/01/24 08:00 Levophed 8 Mg/D5w 250 Ml IV CONT Infused .Q0M ISELA Titration Protocol 0 MCG/MIN Piperacillin Sod/Tazobactam Sod 2.25 gm in 50 mls @ 100 mls/hr 08/30/24 11:00 09/01/24 11:34 Zosyn 2.25 Gm/Ns 50 Ml IVPB 09/08/24 23:59 Infused Q6HR ISELA Infusion Insulin Aspart 3 - 6 units 08/29/24 17:00 09/01/24 16:02 Insulin Aspart (*Bkc) 100 Units/Ml SUB-Q Not Given Q4HR [facility] Protocol Levothyroxine Sodium 75 mcg 08/28/24 06:30 09/01/24 05:20 Levothyroxine Sodium 75 Mcg Tablet PO 75 mcg DAILY@0630 ISELA Administration Levothyroxine Sodium 100 mcg 08/28/24 06:30 09/01/24 05:20 Levothyroxine Sodium 100 Mcg Tablet PO 100 mcg DAILY@0630 ISELA Administration Midodrine 10 mg 08/29/24 08:00 09/01/24 16:03 Midodrine Hcl 10 Mg Tablet PO 10 mg TID ISELA Administration Pantoprazole Sodium 40 mg 08/30/24 09:00 09/01/24 07:48 Pantoprazole Sodium Iv 40 Mg Vial IV PUSH 40 mg QAM ISELA Administration Pravastatin Sodium 40 mg 08/28/24 09:00 09/01/24 07:48 Pravastatin Sodium 20 Mg Tablet PO 40 mg DAILY ISELA Administration Sevelamer Carbonate 1.6 gm 08/30/24 13:50 09/01/24 16:03 Sevelamer Carbonate 0.8 Gm Oral Powder Packet FEED TUBE 1.6 gm TIDWM ISELA Administration Sodium Chloride 10 ml 08/29/24 22:00 09/01/24 14:07 Central Line Flush IV PUSH 10 ml Q8HR ISELA Administration Sodium Chloride 20 ml 08/29/24 17:00 08/29/24 23:07 Central Line Flush IV PUSH 10 ml PRN PRN Administration after blood draws Radiology Results: ITS Impressions Abdomen X-Ray 08/30/24 09:26 IMPRESSION: 1: NG tube coiled in the stomach. Venous Doppler Study 08/30/24 10:40 IMPRESSION: 1. Bilateral below the knee deep venous thrombosis in the peroneal veins. Findings were discussed with Annabel Macedo, the nurse caring for the patient, at 10:49 AM. Chest X-Ray 08/31/24 09:41 Impression: 1: Cardiomegaly with persistent pulmonary edema and pleural effusions. 2: Focal right apical opacity which overlies the first costochondral junction which may represent sclerosis at the junction or underlying parenchymal nodule. Consider correlation with CT chest to exclude underlying parenchymal abnormality. Labs Labs: Laboratory Tests 09/01/24 05:13 09/01/24 05:13 Calcium 9.0 Phosphorus 2.1 L Magnesium 2.3 Total Bilirubin 0.6 AST 16 L ALT 11 Alkaline Phosphatase 85 Total Protein 7.0 Albumin 3.7 Microbiology 08/29/24 16:22 Sputum Sputum Culture - Final Pseudomonas aeruginosa
[2024-09-01 15:53] LABS: Glucose Point of Care 99 mg/dl (65-105)
[2024-09-01 20:19] LABS: Glucose Point of Care 94 mg/dl (65-105)
[2024-09-01 23:41] LABS: Glucose Point of Care 95 mg/dl (65-105)
[2024-09-02] VITALS (43 sets, daily range): BP systolic 109–152; BP diastolic 61–82; PULSE 60–100; RESP 17–26; TEMP 36.6–37.2; O2SAT 94–100
[2024-09-02] MEDS: IPRATROPIUM 0.5 MG/ALBUTEROL SULFATE 2.5 MG AMPUL.NEB 3 ML INHALATION ×4 (02:46→20:20)
[2024-09-02 05:23] LABS: Alveolar/Arterial O2 Gradient 125.5 mmHg; Base Excess ABG 1.9 mEq/l (+/-2.0); Carboxyhemoglobin 0.7 % THb (0-2.0); Fractional Inspired Oxygen 35 %; HCO3 ABG 26.6 mEq/l (22.0-26.0); Methemoglobin ABG 0.3 %THb (0-1.5); Oxygen Content ABG 14.6 %vol (16.0-22.0); Oxygen Saturation ABG 95.2 % (95.0-100.0); Oxyhemoglobin 93.9 % THb (90.0-100.0); PCO2 ABG 42.4 mmHg (35.0-45.0); PO2 ABG 74.8 mmHg (80.0-100.0); PO2 FiO2 Ratio Arterial Blood 2.14 %; Reduced Hemoglobin 5.1 %THb (0-5.0); pH ABG 7.416 (7.350-7.450)
[2024-09-02 05:28] LABS: Modified Allen's Test Pass; Site Drawn LEFT RADIAL
[2024-09-02 05:29] LABS: Device VENTILATOR
[2024-09-02 05:30] LABS: Arterial Blood Gas Minute Volume 7.3 LPM; Arterial Blood Gas PEEP 8 cmH2O; Arterial Blood Gas Tidal Volume 380 ml; Arterial Blood Gas Vent Mode CMV; Arterial Blood Gas Ventilator rate 20 /MIN
[2024-09-02] MEDS: CENTRAL LINE FLUSH 10 ML IV PUSH ×3 (06:14→20:47)
[2024-09-02] MEDS: LEVOTHYROXINE SODIUM 100 MCG TABLET PO (06:14)
[2024-09-02] MEDS: LEVOTHYROXINE SODIUM 75 MCG TABLET PO (06:14)
[2024-09-02] MEDS: PIPERACILLIN/TAZ 2.25G/NS 50ML 2.25 GM/50 ML BAG IVPB ×4 (06:14→23:13)
[2024-09-02 06:35] LABS: Basophils Percent Auto 0.7 % (0.2-1.2); Eosinophils Absolute Auto 0.2 K/mm3 (0-0.3); Eosinophils Percent Auto 2.9 % (0-4.4); Hematocrit 32.3 % (42.0-52.0); Hemoglobin 9.9 g/dL (14.0-18.0); Immature Granulocyte Absolute 0.05 K/mm3 (0.00-0.031); Immature Granulocyte Percent A 0.9 % (0-0.5); Immature Platelet Fraction Pct 4.7 % (0.9-11.2); Lymphocytes Absolute Auto 0.47 K/mm3 (0.9-3.2); Lymphocytes Percent Auto 8.5 % (18.3-44.2); Mean Corpuscular HGB Conc 30.7 g/dl (32-36); Mean Corpuscular Hemoglobin 33.6 pg (26-34); Mean Corpuscular Volume 109.5 fl (80-100); Mean Platelet Volume 11.5 fl (7.4-10.4); Monocytes Absolute Auto 0.6 K/mm3 (0.1-0.6); Monocytes Percent Auto 10.7 % (2.6-8.5); Neutrophils Absolute Auto 4.2 K/mm3 (1.3-6.7); Neutrophils Percent Auto 76.3 % (45.5-73.1); Nucleated Red Blood Cells Perc 0.4 % (0.0-0.2); Platelet Count Result 110 k/mm3 (150-375); Red Blood Count 2.95 M/mm3 (4.6-6.20); Red Cell Distribution Width 14.9 % (11.5-14.5); White Blood Count 5.5 K/mm3 (4.5-10.0)
[2024-09-02 06:49] LABS: Alanine Aminotransferase 10 U/L (6-50); Albumin Level 3.7 g/dL (3.5-5.1); Alkaline Phosphatase 70 U/L (38-126); Anion Gap 9 mmol/L (4-12); Aspartate Amino Transferase 19 U/L (17-59); Bilirubin,Total 0.9 mg/dL (0.2-1.3); Blood Urea Nitrogen 48 mg/dL (9-20); Calcium 9.2 mg/dL (8.4-10.2); Carbon Dioxide 30 mmol/L (22-30); Chloride 99 mmol/L (98-107); Estimated CRCL calculation 16 ml/min; Estimated Glomerular Filt Rate 11; Glucose 96 mg/dL (65-110); Magnesium 2.5 mg/dL (1.6-2.3); Phosphorus 1.9 mg/dL (2.5-4.5); Potassium 3.9 mmol/L (3.4-5.0); Sodium 138 mmol/L (137-145)
[2024-09-02 07:28] LABS: Anisocytosis 1+; Hypochromasia 1+; Platelet Estimate Adequate (Adequate)
[2024-09-02 07:29] LABS: Giant Platelets Present; Large Platelets Present
[2024-09-02 07:30] LABS: Schistocytes Rare
[2024-09-02 07:54] LABS: Glucose Point of Care 96 mg/dl (65-105)
--- NOTE | 2024-09-02 08:06 | WPDINTPN ---
Progress Note: A&P Assessment and Plan (1) Acute on chronic respiratory failure with hypoxia and hypercapnia: Code(s): J96.21 - Acute and chronic respiratory failure with hypoxia; J96.22 - Acute and chronic respiratory failure with hypercapnia Status: Acute Assessment and Plan: Acute on chronic respiratory failure secondary to pulmonary edema and possible pneumonia, obesity hypoventilation, chronic respiratory failure secondary to laryngeal cancer status post laryngectomy and laryngeal tube placement 08/29 His laryngeal tube cannot be attached to ventilator or BiPAP. An emergent ET tube was inserted through the laryngeal tube to secure airway and attached to mechanical ventilation Due to small size of airway we are having high pressures and gradually increasing mechanical ventilation 08/31 laryngeal tube was switched to a cuffed tracheostomy tube by ENT physician. Size [address] scan ordered for today Continue PEEP to 8. FiO2 weaned out of 35%. Continue to remove fluid dialysis He is on empiric antibiotic therapy for pneumonia - see below With plan for PSV trial after dialysis session today (2) Hypotension: Code(s): I95.9 - Hypotension, unspecified Status: Acute Assessment and Plan: 1 admission to ICU patient was hypotensive and has been started on Levophed. Patient does have history of hypertension and was on antihypertensive medications. Hypotension could be secondary to hypoxia and acidosis as blood pressure is now improving after patient has been placed on mechanical ventilation. Since he is already volume overloaded he has been started on Levophed to maintain mean arterial pressure to be able to dialyze patient There is also a possibility of sepsis although patient has been afebrile with normal WBC count. 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 - Tracheostomy status Status: Acute Assessment and Plan: See above (6) End-stage renal disease on hemodialysis: Code(s): N18.6 - End stage renal disease; Z99.2 - Dependence on renal dialysis Status: Acute Assessment and Plan: Patient was dialyzed yesterday and will be dialyzed again tomorrow with goal to try to remove fluid (7) Pulmonary edema: Qualifiers: Chronicity: acute Qualified Code(s): J81.0 - Acute pulmonary edema Code(s): J81.1 - Chronic pulmonary edema Status: Acute Assessment and Plan: See above (8) Generalized edema: Code(s): R60.1 - Generalized edema Status: Acute Assessment and Plan: See above (9) Sepsis: Code(s): A41.9 - Sepsis, unspecified organism Status: Acute Assessment and Plan: Although patient is afebrile and has had normal WBC. He was started on antibiotics for community-acquired pneumonia considering lung infiltrates on chest x-ray Pneumonia appears to be less likely from clinical picture. His procalcitonin level was low. He sputum culture is growing Pseudomonas which is pansensitive MRSA screen was negative there is a possibility of him aspirating since he has been eating Continue Zosyn for course (10) DVT (deep venous thrombosis): Code(s): I82.409 - Acute embolism and thrombosis of unspecified deep veins of unspecified lower extremity Status: Acute Assessment and Plan: Lower extremity Dopplers done on 08/30 showed Bilateral below the knee deep venous thrombosis in the peroneal veins. Findings were discussed with Annabel Macedo, the nurse caring for the patient, at 10:49 AM. Patient is bedridden and ventilator dependent and high risk of further worsening of DVT. Patient has been started on heparin infusion and has been tolerating. I do not anticipate any procedures at this time and side will start him on Eliquis A CTA of the chest was not done imaging to rule out PE as when I saw the patient patient was already getting dialyzed. It will also not twisting frame changer at this point as patient is already on anticoagulation. Patient is getting CTA today and will get dialyzed after that Continue liquid Echo Summary 1. Left ventricular chamber dimension is normal. 2. Left ventricular systolic function is normal, estimated at 50-55%. 3. There is mildly increased left ventricular wall thickness. 4. The left ventricular diastolic function is grade I diastolic dysfunction. 5. Right ventricular chamber dimension is moderately enlarged. 6. Right ventricular systolic function is reduced. 7. Right atrial chamber dimension is moderately enlarged. 8. There is mild mitral valve regurgitation. 9. There is moderate tricuspid valve regurgitation. 10. Estimated pulmonary arterial systolic pressure is 57 mmHg. 11. Dilated inferior vena cava with no collapse upon inspiration consistent with elevated right atrial pressure, 15 mmHg. Plan DVT prophylaxis -Eliquis Stress ulcer prophylaxis -PPI Nutrition - continue tube feed Code Status - Full Code Total Critical Care Time - 30 minutes Due to a high probability of clinically significant, life threatening deterioration, the patient required my highest level of preparedness to intervene emergently and I personally spent this critical care time directly and personally managing the patient. This critical care time included obtaining a history; examining the patient; pulse oximetry; ordering and review of studies; arranging urgent treatment with development of a management plan; evaluation of patient's response to treatment; frequent reassessment; and discussions with other providers. It was exclusive of separately billable procedures and treating other patients and teaching time. Please see Assessment and Plan section and the rest of the note for further information on patient assessment and treatment Subjective Date/time seen: 09/02/24 Patient will be dialyzed today. He continues to be on mechanical ventilation and FiO2 is down to 35 %. He is awake alert and denies any complaint. Nodes is had no to pain shortness a breath chest pain cough belly pain nausea vomiting. Tolerating tube feeds. Afebrile.. Review of Systems Review of Systems: ROS unobtainable: Yes unobtainable due to endotracheal tube Exam Narrative: General: Pt is ill-appearing gentleman who appears older than his age. He is awake follows command and is in no distress Lungs/Chest: Decreased bilateral breath sounds overall occasional crackles and decreased breath sound at bases, Cardiac: RRR. Normal S1 S2. No murmurs Circulation: Feet are well Abdomen: Decreased bowel sounds. Morbid Obese. Soft. NT. ND. 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 : Hay in place Neurologic: Awake follows commands with all 4 extremities PERRL Objective Data Vital Signs Vital Signs: Vital Signs - 24 hr 09/01/24 08:24 09/01/24 09:00 09/01/24 10:00 Temperature Pulse Rate 66 62 Respiratory Rate Blood Pressure Pulse Oximetry 96 Oxygen Delivery Mechanical Ventilation Fraction of Inspired Oxygen 40 35 09/01/24 10:00 09/01/24 11:08 09/01/24 12:00 Temperature 37.1 C Pulse Rate 70 56 L 105 H Respiratory Rate 20 Blood Pressure 135/63 Pulse Oximetry 97 95 Oxygen Delivery Mechanical Ventilation Fraction of Inspired Oxygen 35 09/01/24 12:00 09/01/24 12:00 09/01/24 12:00 Temperature 36.8 C Pulse Rate 53 L 53 L Respiratory Rate 16 25 H Blood Pressure 104/57 L Pulse Oximetry 95 96 Oxygen Delivery Mechanical Ventilation Fraction of Inspired Oxygen 35 35 09/01/24 13:43 09/01/24 14:00 09/01/24 14:00 Temperature 36.8 C Pulse Rate 55 L 53 L 54 L Respiratory Rate 20 Blood Pressure 113/60 Pulse Oximetry 96 Oxygen Delivery Mechanical Ventilation Fraction of Inspired Oxygen 35 09/01/24 16:00 09/01/24 16:00 09/01/24 16:00 Temperature 37.0 C Pulse Rate 54 L 64 Respiratory Rate 22 H Blood Pressure 121/62 Pulse Oximetry 97 95 Oxygen Delivery Mechanical Ventilation Fraction of Inspired Oxygen 35 09/01/24 16:00 09/01/24 17:57 09/01/24 18:00 Temperature 36.9 C Pulse Rate 56 L 56 L Respiratory Rate 17 Blood Pressure 142/71 H Pulse Oximetry 95 96 Oxygen Delivery Mechanical Ventilation Fraction of Inspired Oxygen 35 35 09/01/24 18:00 09/01/24 20:00 09/01/24 20:00 Temperature 37.0 C Pulse Rate 57 L 59 L Respiratory Rate 20 Blood Pressure 128/67 Pulse Oximetry 96 Oxygen Delivery Fraction of Inspired Oxygen 35 09/01/24 20:00 09/01/24 20:00 09/01/24 20:50 Temperature Pulse Rate 64 60 Respiratory Rate Blood Pressure Pulse Oximetry 94 95 Oxygen Delivery Mechanical Ventilation Mechanical Ventilation Fraction of Inspired Oxygen 35 35 09/01/24 22:00 09/01/24 22:00 09/01/24 23:13 Temperature Pulse Rate 61 61 61 Respiratory Rate 21 H Blood Pressure 119/62 Pulse Oximetry 93 96 Oxygen Delivery Mechanical Ventilation Fraction of Inspired Oxygen 35 09/02/24 00:00 09/02/24 00:00 09/02/24 00:00 Temperature Pulse Rate 60 Respiratory Rate Blood Pressure Pulse Oximetry 96 Oxygen Delivery Mechanical Ventilation Fraction of Inspired Oxygen 35 35 09/02/24 00:00 09/02/24 02:00 09/02/24 02:00 Temperature 36.8 C Pulse Rate 61 71 71 Respiratory Rate 20 18 Blood Pressure 137/69 121/68 Pulse Oximetry 97 99 Oxygen Delivery Fraction of Inspired Oxygen 09/02/24 02:46 09/02/24 03:56 09/02/24 04:00 Temperature Pulse Rate 66 66 Respiratory Rate 26 H Blood Pressure Pulse Oximetry 99 Oxygen Delivery Mechanical Ventilation Fraction of Inspired Oxygen 35 35 09/02/24 04:00 09/02/24 04:00 09/02/24 04:00 Temperature 37.2 C Pulse Rate 70 70 Respiratory Rate 20 Blood Pressure 135/76 Pulse Oximetry 94 94 Oxygen Delivery Mechanical Ventilation Fraction of Inspired Oxygen 35 09/02/24 05:15 09/02/24 06:00 09/02/24 06:00 Temperature Pulse Rate 72 71 69 Respiratory Rate 20 Blood Pressure 118/66 Pulse Oximetry 98 99 Oxygen Delivery Mechanical Ventilation Fraction of Inspired Oxygen 35 Intake/Output Intake/Output: Intake & Output 08/30/24 08/31/24 09/01/24 09/02/24 23:59 23:59 23:59 23:59 Intake Total 741.7 746.1 2502.5 630 Output Total 3000 3000 0 Balance -2258.3 -2253.9 2502.5 630 Meds/Results Medications: Active Medications Generic Name Dose Route Start Last Admin Trade Name Freq PRN Reason Stop Dose Admin Acetaminophen 650 mg 08/27/24 15:58 Acetaminophen 325 Mg Tablet PO Q4H PRN Mild Pain (1-3) or Fever Albuterol/Ipratropium 3 ml 09/02/24 02:00 09/02/24 02:46 Ipratropium 0.5 Mg/Albuterol Sulfate 2.5 Mg Ampul.Neb 3 Ml INHALATION 3 ml Q6HRT ISELA Administration Apixaban 10 mg 09/01/24 10:40 09/01/24 20:11 Apixaban 5 Mg Tablet PO 09/07/24 21:01 10 mg Q12HR ISELA Administration Apixaban 5 mg 09/08/24 09:00 Apixaban 5 Mg Tablet PO Q12HR ISELA Dextrose 12.5 gm 08/27/24 23:31 08/30/24 07:50 Dextrose 50% 25 Gm/50 Ml Syringe IV PUSH 12.5 gm PRN PRN Administration Hypoglycemia Protocol Epoetin Shawn-epbx 4,000 units 09/02/24 18:14 Epoetin Shawn-Epbx 4,000 Units/Ml Vial IV PUSH 09/02/24 18:15 ONCE ONE Glucagon 1 mg 08/27/24 23:31 Glucagon For Inj 1 Mg Vial IM PRN PRN Hypoglycemia Protocol Glucose 15 gm 08/27/24 23:31 Glucose Oral Gel 15 Gm Of Glucse In 37.5 Gm Tube PO PRN PRN Hypoglycemia Protocol Dextrose 1,000 mls @ 100 mls/hr 08/27/24 23:31 Dextrose 5% 1,000 Ml IVPB PRN PRN Hypoglycemia Protocol Albumin Human 50 mls @ 999 mls/hr 08/28/24 01:42 08/28/24 12:30 Albutein IVPB 09/27/24 01:41 Infused Q10M PRN Infusion HYPOTENSION Azithromycin 500 mg in 250 mls @ 250 mls/hr 08/29/24 09:00 09/01/24 08:48 Zithromax IVPB 09/03/24 08:59 Infused Q24H ISELA Infusion Norepinephrine Bitartrate 8 mg in 250 mls @ 0 mls/hr 08/29/24 14:25 09/01/24 08:00 Levophed 8 Mg/D5w 250 Ml IV CONT Infused .Q0M ISELA Titration Protocol 0 MCG/MIN Piperacillin Sod/Tazobactam Sod 2.25 gm in 50 mls @ 100 mls/hr 08/30/24 11:00 09/02/24 06:14 Zosyn 2.25 Gm/Ns 50 Ml IVPB 09/08/24 23:59 100 mls/hr Q6HR ISELA Administration Insulin Aspart 3 - 6 units 08/29/24 17:00 09/01/24 23:38 Insulin Aspart (*Bkc) 100 Units/Ml SUB-Q Not Given Q4HR ISELA Protocol Levothyroxine Sodium 75 mcg 08/28/24 06:30 09/02/24 06:14 Levothyroxine Sodium 75 Mcg Tablet PO 75 mcg DAILY@0630 ISELA Administration Levothyroxine Sodium 100 mcg 08/28/24 06:30 09/02/24 06:14 Levothyroxine Sodium 100 Mcg Tablet PO 100 mcg DAILY@0630 ISELA Administration Midodrine 10 mg 08/29/24 08:00 09/01/24 16:03 Midodrine Hcl 10 Mg Tablet PO 10 mg TID ISELA Administration Pantoprazole Sodium 40 mg 08/30/24 09:00 09/01/24 07:48 Pantoprazole Sodium Iv 40 Mg Vial IV PUSH 40 mg QAM ISELA Administration Pravastatin Sodium 40 mg 08/28/24 09:00 09/01/24 07:48 Pravastatin Sodium 20 Mg Tablet PO 40 mg DAILY ISELA Administration Sevelamer Carbonate 1.6 gm 08/30/24 13:50 09/01/24 16:03 Sevelamer Carbonate 0.8 Gm Oral Powder Packet FEED TUBE 1.6 gm TIDWM ISELA Administration Sodium Chloride 10 ml 08/29/24 22:00 09/02/24 06:14 Central Line Flush IV PUSH 10 ml Q8HR ISELA Administration Sodium Chloride 20 ml 08/29/24 17:00 08/29/24 23:07 Central Line Flush IV PUSH 10 ml PRN PRN Administration after blood draws Radiology Results: ITS Impressions Abdomen X-Ray 08/30/24 09:26 IMPRESSION: 1: NG tube coiled in the stomach. Venous Doppler Study 08/30/24 10:40 IMPRESSION: 1. Bilateral below the knee deep venous thrombosis in the peroneal veins. Findings were discussed with Annabel Macedo, the nurse caring for the patient, at 10:49 AM. Chest X-Ray 08/31/24 09:41 Impression: 1: Cardiomegaly with persistent pulmonary edema and pleural effusions. 2: Focal right apical opacity which overlies the first costochondral junction which may represent sclerosis at the junction or underlying parenchymal nodule. Consider correlation with CT chest to exclude underlying parenchymal abnormality. Labs Labs: Laboratory Results - last 24 hr 09/01/24 09/01/24 09/01/24 11:16 15:50 20:09 WBC RBC Hgb Hct MCV MCH MCHC RDW Plt Count MPV Immature Gran % (Auto) Neut % (Auto) Lymph % (Auto) [place] % (Auto) Eos % (Auto) Baso % (Auto) Lymph # (Auto) [place] # (Auto) Eos # (Auto) Baso # (Auto) Abs Immat Gran (auto) Absolute Neuts (auto) Absolute Nucleated RBC Band Neutrophils % Nucleated RBC % Platelet Estimate Large Platelets Giant Platelets % Immature Plt Fraction Hypochromasia Anisocytosis Schistocytes Puncture Site ABG pH ABG pCO2 ABG pO2 ABG PO2/FiO2 Ratio ABG HCO3 ABG O2 Saturation ABG O2 Content ABG Base Excess A-a Gradient Oxyhemoglobin Carboxyhemoglobin Methemoglobin Reduced Hemoglobin Total Hemoglobin O2 Delivery Device O2 Liters/Min Minute Volume Vent Rate Vent Mode FiO2 Tidal Volume PEEP Peak Inspir Pressure Pressure Support Sodium Potassium Chloride Carbon Dioxide Anion Gap BUN Creatinine Estim Creat Clear Calc Estimated GFR Glucose POC Capillary Glucose 109 H 99 94 Calcium Phosphorus Magnesium Total Bilirubin AST ALT Alkaline Phosphatase Total Protein Albumin 09/01/24 09/02/24 09/02/24 23:35 05:15 06:23 WBC 5.5 RBC 2.95 L Hgb 9.9 L Hct 32.3 L MCV 109.5 H MCH 33.6 MCHC 30.7 L RDW 14.9 H Plt Count 110 L MPV 11.5 H Immature Gran % (Auto) 0.9 H Neut % (Auto) 76.3 H Lymph % (Auto) 8.5 L [place] % (Auto) 10.7 H Eos % (Auto) 2.9 Baso % (Auto) 0.7 Lymph # (Auto) 0.47 L [place] # (Auto) 0.6 Eos # (Auto) 0.2 Baso # (Auto) 0.0 Abs Immat Gran (auto) 0.05 H Absolute Neuts (auto) 4.2 Absolute Nucleated RBC 0.020 H Band Neutrophils % Not Reportable Nucleated RBC % 0.4 H Platelet Estimate Adequate Large Platelets Present Giant Platelets Present % Immature Plt Fraction 4.7 Hypochromasia 1+ Anisocytosis 1+ Schistocytes Rare Puncture Site Left radial ABG pH 7.416 ABG pCO2 42.4 ABG pO2 74.8 L ABG PO2/FiO2 Ratio 2.14 ABG HCO3 26.6 H ABG O2 Saturation 95.2 ABG O2 Content 14.6 L ABG Base Excess 1.9 A-a Gradient 125.5 Oxyhemoglobin 93.9 Carboxyhemoglobin 0.7 Methemoglobin 0.3 Reduced Hemoglobin 5.1 H Total Hemoglobin 11.0 L O2 Delivery Device Ventilator O2 Liters/Min Not Reportable Minute Volume 7.3 Vent Rate 20 Vent Mode Cmv FiO2 35 Tidal Volume 380 PEEP 8 Peak Inspir Pressure Not Reportable Pressure Support Not Reportable Sodium 138 Potassium 3.9 Chloride 99 Carbon Dioxide 30 Anion Gap 9 BUN 48 H D Creatinine 5.49 H Estim Creat Clear Calc 16 Estimated GFR 11 L Glucose 96 POC Capillary Glucose 95 Calcium 9.2 Phosphorus 1.9 L Magnesium 2.5 H Total Bilirubin 0.9 AST 19 ALT 10 Alkaline Phosphatase 70 Total Protein 7.0 Albumin 3.7 09/02/24 06:32 WBC RBC Hgb Hct MCV MCH MCHC RDW Plt Count MPV Immature Gran % (Auto) Neut % (Auto) Lymph % (Auto) [place] % (Auto) Eos % (Auto) Baso % (Auto) Lymph # (Auto) [place] # (Auto) Eos # (Auto) Baso # (Auto) Abs Immat Gran (auto) Absolute Neuts (auto) Absolute Nucleated RBC Band Neutrophils % Nucleated RBC % Platelet Estimate Large Platelets Giant Platelets % Immature Plt Fraction Hypochromasia Anisocytosis Schistocytes Puncture Site ABG pH ABG pCO2 ABG pO2 ABG PO2/FiO2 Ratio ABG HCO3 ABG O2 Saturation ABG O2 Content ABG Base Excess A-a Gradient Oxyhemoglobin Carboxyhemoglobin Methemoglobin Reduced Hemoglobin Total Hemoglobin O2 Delivery Device O2 Liters/Min Minute Volume Vent Rate Vent Mode FiO2 Tidal Volume PEEP Peak Inspir Pressure Pressure Support Sodium Potassium Chloride Carbon Dioxide Anion Gap BUN Creatinine Estim Creat Clear Calc Estimated GFR Glucose POC Capillary Glucose 96 Calcium Phosphorus Magnesium Total Bilirubin AST ALT Alkaline Phosphatase Total Protein Albumin Quality VTE Prophylaxis VTE prophylaxis: mechanical ordered and pharmacologic ordered
--- NOTE | 2024-09-02 08:10 | PM.IMPN ---
Progress Note: A&P Assessment and Plan (1) Acute on chronic respiratory failure with hypoxia and hypercapnia: Code(s): J96.21 - Acute and chronic respiratory failure with hypoxia; J96.22 - Acute and chronic respiratory failure with hypercapnia Status: Acute Assessment and Plan: Acute on chronic respiratory failure secondary to pulmonary edema and possible pneumonia, obesity hypoventilation, chronic respiratory failure secondary to laryngeal cancer status post laryngectomy and laryngeal tube placement Continue PEEP to 8. FiO2 weaned out of 35%. Continue to remove fluid dialysis He is on empiric antibiotic therapy for pneumonia - see below With plan for PSV trial after dialysis session today (2) Hypotension: Code(s): I95.9 - Hypotension, unspecified Status: Acute Assessment and Plan: Hypotension could be secondary to hypoxia and acidosis as blood pressure is now improving after patient has been placed on mechanical ventilation. 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 - Tracheostomy status Status: Acute Assessment and Plan: See above (6) End-stage renal disease on hemodialysis: Code(s): N18.6 - End stage renal disease; Z99.2 - Dependence on renal dialysis Status: Acute Assessment and Plan: Patient was dialyzed yesterday and will be dialyzed again tomorrow with goal to try to remove fluid (7) Pulmonary edema: Qualifiers: Chronicity: acute Qualified Code(s): J81.0 - Acute pulmonary edema Code(s): J81.1 - Chronic pulmonary edema Status: Acute Assessment and Plan: See above (8) Generalized edema: Code(s): R60.1 - Generalized edema Status: Acute Assessment and Plan: See above (9) Sepsis: Code(s): A41.9 - Sepsis, unspecified organism Status: Acute Assessment and Plan: Resulted from community-acquired pneumonia considering lung infiltrates on chest x-ray sputum culture is growing Pseudomonas which is pansensitive MRSA screen was negative there is a possibility of him aspirating since he has been eating Continue Zosyn (10) DVT (deep venous thrombosis): Code(s): I82.409 - Acute embolism and thrombosis of unspecified deep veins of unspecified lower extremity Status: Acute Assessment and Plan: Lower extremity Dopplers done on 08/30 showed Bilateral below the knee deep venous thrombosis in the peroneal veins. Pending CTA report Patient is on anticoagulation Echocardiogram showed 1. Left ventricular chamber dimension is normal. 2. Left ventricular systolic function is normal, estimated at 50-55%. 3. There is mildly increased left ventricular wall thickness. 4. The left ventricular diastolic function is grade I diastolic dysfunction. 5. Right ventricular chamber dimension is moderately enlarged. 6. Right ventricular systolic function is reduced. 7. Right atrial chamber dimension is moderately enlarged. 8. There is mild mitral valve regurgitation. 9. There is moderate tricuspid valve regurgitation. 10. Estimated pulmonary arterial systolic pressure is 57 mmHg. 11. Dilated inferior vena cava with no collapse upon inspiration consistent with elevated right atrial pressure, 15 mmHg. Plan DVT prophylaxis -Eliquis Stress ulcer prophylaxis -PPI Nutrition - continue tube feed Code Status - Full Code Subjective Date/time seen: 09/02/24 08:10 Interval history: Patient is on ventilation via trach dependent, patient is off sedation, alert, unable to talk Patient is afebrile, blood pressure is stable, on 35% oxygen No new issue or event over the night Exam Narrative: GENERAL: Ill-appearing, in no acute distress. Well-nourished. - EYES: EOMI. Anicteric. - HENT: Moist mucous membranes. - LUNGS: Clear to auscultation bilaterally, no wheezing, rhonchi, or rales. - CARDIOVASCULAR: Regular rate and rhythm. No murmur. No JVD. - ABDOMEN: Soft, non-tender and non-distended. No palpable masses. - EXTREMITIES: No edema. Peripheral pulses 2+. Non-tender. - NEUROLOGIC:follow-up commands - PSYCHIATRIC: Awake, Alert - SKIN: No rashes or lesions. Warm. - LYMPH: No cervical lymphadenopathy. Objective Data Vital Signs Vital Signs: Vital Signs - 24 hr 09/01/24 08:24 09/01/24 09:00 09/01/24 10:00 Temperature Pulse Rate 66 62 Respiratory Rate Blood Pressure Pulse Oximetry 96 Oxygen Delivery Mechanical Ventilation Fraction of Inspired Oxygen 40 35 09/01/24 10:00 09/01/24 11:08 09/01/24 12:00 Temperature 98.8 F Pulse Rate 70 56 L 105 H Respiratory Rate 20 Blood Pressure 135/63 Pulse Oximetry 97 95 Oxygen Delivery Mechanical Ventilation Fraction of Inspired Oxygen 35 09/01/24 12:00 09/01/24 12:00 09/01/24 12:00 Temperature 98.2 F Pulse Rate 53 L 53 L Respiratory Rate 16 25 H Blood Pressure 104/57 L Pulse Oximetry 95 96 Oxygen Delivery Mechanical Ventilation Fraction of Inspired Oxygen 35 35 09/01/24 13:43 09/01/24 14:00 09/01/24 14:00 Temperature 98.3 F Pulse Rate 55 L 53 L 54 L Respiratory Rate 20 Blood Pressure 113/60 Pulse Oximetry 96 Oxygen Delivery Mechanical Ventilation Fraction of Inspired Oxygen 35 09/01/24 16:00 09/01/24 16:00 09/01/24 16:00 Temperature 98.6 F Pulse Rate 54 L 64 Respiratory Rate 22 H Blood Pressure 121/62 Pulse Oximetry 97 95 Oxygen Delivery Mechanical Ventilation Fraction of Inspired Oxygen 35 09/01/24 16:00 09/01/24 17:57 09/01/24 18:00 Temperature 98.5 F Pulse Rate 56 L 56 L Respiratory Rate 17 Blood Pressure 142/71 H Pulse Oximetry 95 96 Oxygen Delivery Mechanical Ventilation Fraction of Inspired Oxygen 35 35 09/01/24 18:00 09/01/24 20:00 09/01/24 20:00 Temperature 98.6 F Pulse Rate 57 L 59 L Respiratory Rate 20 Blood Pressure 128/67 Pulse Oximetry 96 Oxygen Delivery Fraction of Inspired Oxygen 35 09/01/24 20:00 09/01/24 20:00 09/01/24 20:50 Temperature Pulse Rate 64 60 Respiratory Rate Blood Pressure Pulse Oximetry 94 95 Oxygen Delivery Mechanical Ventilation Mechanical Ventilation Fraction of Inspired Oxygen 35 35 09/01/24 22:00 09/01/24 22:00 09/01/24 23:13 Temperature Pulse Rate 61 61 61 Respiratory Rate 21 H Blood Pressure 119/62 Pulse Oximetry 93 96 Oxygen Delivery Mechanical Ventilation Fraction of Inspired Oxygen 35 09/02/24 00:00 09/02/24 00:00 09/02/24 00:00 Temperature Pulse Rate 60 Respiratory Rate Blood Pressure Pulse Oximetry 96 Oxygen Delivery Mechanical Ventilation Fraction of Inspired Oxygen 35 35 09/02/24 00:00 09/02/24 02:00 09/02/24 02:00 Temperature 98.3 F Pulse Rate 61 71 71 Respiratory Rate 20 18 Blood Pressure 137/69 121/68 Pulse Oximetry 97 99 Oxygen Delivery Fraction of Inspired Oxygen 09/02/24 02:46 09/02/24 03:56 09/02/24 04:00 Temperature Pulse Rate 66 66 Respiratory Rate 26 H Blood Pressure Pulse Oximetry 99 Oxygen Delivery Mechanical Ventilation Fraction of Inspired Oxygen 35 35 09/02/24 04:00 09/02/24 04:00 09/02/24 04:00 Temperature 98.9 F Pulse Rate 70 70 Respiratory Rate 20 Blood Pressure 135/76 Pulse Oximetry 94 94 Oxygen Delivery Mechanical Ventilation Fraction of Inspired Oxygen 35 09/02/24 05:15 09/02/24 06:00 09/02/24 06:00 Temperature Pulse Rate 72 71 69 Respiratory Rate 20 Blood Pressure 118/66 Pulse Oximetry 98 99 Oxygen Delivery Mechanical Ventilation Fraction of Inspired Oxygen 35 Intake/Output Intake/Output: Intake & Output 08/30/24 08/31/24 09/01/24 09/02/24 23:59 23:59 23:59 23:59 Intake Total 741.7 746.1 2502.5 630 Output Total 3000 3000 0 Balance -2258.3 -2253.9 2502.5 630 Meds/Results Medications: Active Medications Generic Name Dose Route Start Last Admin Trade Name Freq PRN Reason Stop Dose Admin Acetaminophen 650 mg 08/27/24 15:58 Acetaminophen 325 Mg Tablet PO Q4H PRN Mild Pain (1-3) or Fever Albuterol/Ipratropium 3 ml 09/02/24 02:00 09/02/24 02:46 Ipratropium 0.5 Mg/Albuterol Sulfate 2.5 Mg Ampul.Neb 3 Ml INHALATION 3 ml Q6HRT ISELA Administration Apixaban 10 mg 09/01/24 10:40 09/01/24 20:11 Apixaban 5 Mg Tablet PO 09/07/24 21:01 10 mg Q12HR ISELA Administration Apixaban 5 mg 09/08/24 09:00 Apixaban 5 Mg Tablet PO Q12HR ISELA Dextrose 12.5 gm 08/27/24 23:31 08/30/24 07:50 Dextrose 50% 25 Gm/50 Ml Syringe IV PUSH 12.5 gm PRN PRN Administration Hypoglycemia Protocol Epoetin Shawn-epbx 4,000 units 09/02/24 18:14 Epoetin Shawn-Epbx 4,000 Units/Ml Vial IV PUSH 09/02/24 18:15 ONCE ONE Glucagon 1 mg 08/27/24 23:31 Glucagon For Inj 1 Mg Vial IM PRN PRN Hypoglycemia Protocol Glucose 15 gm 08/27/24 23:31 Glucose Oral Gel 15 Gm Of Glucse In 37.5 Gm Tube PO PRN PRN Hypoglycemia Protocol Dextrose 1,000 mls @ 100 mls/hr 08/27/24 23:31 Dextrose 5% 1,000 Ml IVPB PRN PRN Hypoglycemia Protocol Albumin Human 50 mls @ 999 mls/hr 08/28/24 01:42 08/28/24 12:30 Albutein IVPB 09/27/24 01:41 Infused Q10M PRN Infusion HYPOTENSION Azithromycin 500 mg in 250 mls @ 250 mls/hr 08/29/24 09:00 09/01/24 08:48 Zithromax IVPB 09/03/24 08:59 Infused Q24H ISELA Infusion Norepinephrine Bitartrate 8 mg in 250 mls @ 0 mls/hr 08/29/24 14:25 09/01/24 08:00 Levophed 8 Mg/D5w 250 Ml IV CONT Infused .Q0M ISELA Titration Protocol 0 MCG/MIN Piperacillin Sod/Tazobactam Sod 2.25 gm in 50 mls @ 100 mls/hr 08/30/24 11:00 09/02/24 06:14 Zosyn 2.25 Gm/Ns 50 Ml IVPB 09/08/24 23:59 100 mls/hr Q6HR ISELA Administration Insulin Aspart 3 - 6 units 08/29/24 17:00 09/01/24 23:38 Insulin Aspart (*Bkc) 100 Units/Ml SUB-Q Not Given Q4HR ISELA Protocol Levothyroxine Sodium 75 mcg 08/28/24 06:30 09/02/24 06:14 Levothyroxine Sodium 75 Mcg Tablet PO 75 mcg DAILY@0630 ISELA Administration Levothyroxine Sodium 100 mcg 08/28/24 06:30 09/02/24 06:14 Levothyroxine Sodium 100 Mcg Tablet PO 100 mcg DAILY@0630 ISELA Administration Midodrine 10 mg 08/29/24 08:00 09/01/24 16:03 Midodrine Hcl 10 Mg Tablet PO 10 mg TID ISELA Administration Pantoprazole Sodium 40 mg 08/30/24 09:00 09/01/24 07:48 Pantoprazole Sodium Iv 40 Mg Vial IV PUSH 40 mg QAM ISELA Administration Pravastatin Sodium 40 mg 08/28/24 09:00 09/01/24 07:48 Pravastatin Sodium 20 Mg Tablet PO 40 mg DAILY ISELA Administration Sevelamer Carbonate 1.6 gm 08/30/24 13:50 09/01/24 16:03 Sevelamer Carbonate 0.8 Gm Oral Powder Packet FEED TUBE 1.6 gm TIDWM ISELA Administration Sodium Chloride 10 ml 08/29/24 22:00 09/02/24 06:14 Central Line Flush IV PUSH 10 ml Q8HR ISELA Administration Sodium Chloride 20 ml 08/29/24 17:00 08/29/24 23:07 Central Line Flush IV PUSH 10 ml PRN PRN Administration after blood draws Radiology Results: ITS Impressions Abdomen X-Ray 08/30/24 09:26 IMPRESSION: 1: NG tube coiled in the stomach. Venous Doppler Study 08/30/24 10:40 IMPRESSION: 1. Bilateral below the knee deep venous thrombosis in the peroneal veins. Findings were discussed with Annabel Macedo, the nurse caring for the patient, at 10:49 AM. Chest X-Ray 08/31/24 09:41 Impression: 1: Cardiomegaly with persistent pulmonary edema and pleural effusions. 2: Focal right apical opacity which overlies the first costochondral junction which may represent sclerosis at the junction or underlying parenchymal nodule. Consider correlation with CT chest to exclude underlying parenchymal abnormality. Labs Labs: Laboratory Results - last 24 hr 09/01/24 09/01/24 09/01/24 11:16 15:50 20:09 WBC RBC Hgb Hct MCV MCH MCHC RDW Plt Count MPV Immature Gran % (Auto) Neut % (Auto) Lymph % (Auto) [place] % (Auto) Eos % (Auto) Baso % (Auto) Lymph # (Auto) [place] # (Auto) Eos # (Auto) Baso # (Auto) Abs Immat Gran (auto) Absolute Neuts (auto) Absolute Nucleated RBC Band Neutrophils % Nucleated RBC % Platelet Estimate Large Platelets Giant Platelets % Immature Plt Fraction Hypochromasia Anisocytosis Schistocytes Puncture Site ABG pH ABG pCO2 ABG pO2 ABG PO2/FiO2 Ratio ABG HCO3 ABG O2 Saturation ABG O2 Content ABG Base Excess A-a Gradient Oxyhemoglobin Carboxyhemoglobin Methemoglobin Reduced Hemoglobin Total Hemoglobin O2 Delivery Device O2 Liters/Min Minute Volume Vent Rate Vent Mode FiO2 Tidal Volume PEEP Peak Inspir Pressure Pressure Support Sodium Potassium Chloride Carbon Dioxide Anion Gap BUN Creatinine Estim Creat Clear Calc Estimated GFR Glucose POC Capillary Glucose 109 H 99 94 Calcium Phosphorus Magnesium Total Bilirubin AST ALT Alkaline Phosphatase Total Protein Albumin 09/01/24 09/02/24 09/02/24 23:35 05:15 06:23 WBC 5.5 RBC 2.95 L Hgb 9.9 L Hct 32.3 L MCV 109.5 H MCH 33.6 MCHC 30.7 L RDW 14.9 H Plt Count 110 L MPV 11.5 H Immature Gran % (Auto) 0.9 H Neut % (Auto) 76.3 H Lymph % (Auto) 8.5 L [place] % (Auto) 10.7 H Eos % (Auto) 2.9 Baso % (Auto) 0.7 Lymph # (Auto) 0.47 L [place] # (Auto) 0.6 Eos # (Auto) 0.2 Baso # (Auto) 0.0 Abs Immat Gran (auto) 0.05 H Absolute Neuts (auto) 4.2 Absolute Nucleated RBC 0.020 H Band Neutrophils % Not Reportable Nucleated RBC % 0.4 H Platelet Estimate Adequate Large Platelets Present Giant Platelets Present % Immature Plt Fraction 4.7 Hypochromasia 1+ Anisocytosis 1+ Schistocytes Rare Puncture Site Left radial ABG pH 7.416 ABG pCO2 42.4 ABG pO2 74.8 L ABG PO2/FiO2 Ratio 2.14 ABG HCO3 26.6 H ABG O2 Saturation 95.2 ABG O2 Content 14.6 L ABG Base Excess 1.9 A-a Gradient 125.5 Oxyhemoglobin 93.9 Carboxyhemoglobin 0.7 Methemoglobin 0.3 Reduced Hemoglobin 5.1 H Total Hemoglobin 11.0 L O2 Delivery Device Ventilator O2 Liters/Min Not Reportable Minute Volume 7.3 Vent Rate 20 Vent Mode Cmv FiO2 35 Tidal Volume 380 PEEP 8 Peak Inspir Pressure Not Reportable Pressure Support Not Reportable Sodium 138 Potassium 3.9 Chloride 99 Carbon Dioxide 30 Anion Gap 9 BUN 48 H D Creatinine 5.49 H Estim Creat Clear Calc 16 Estimated GFR 11 L Glucose 96 POC Capillary Glucose 95 Calcium 9.2 Phosphorus 1.9 L Magnesium 2.5 H Total Bilirubin 0.9 AST 19 ALT 10 Alkaline Phosphatase 70 Total Protein 7.0 Albumin 3.7 09/02/24 06:32 WBC RBC Hgb Hct MCV MCH MCHC RDW Plt Count MPV Immature Gran % (Auto) Neut % (Auto) Lymph % (Auto) [place] % (Auto) Eos % (Auto) Baso % (Auto) Lymph # (Auto) [place] # (Auto) Eos # (Auto) Baso # (Auto) Abs Immat Gran (auto) Absolute Neuts (auto) Absolute Nucleated RBC Band Neutrophils % Nucleated RBC % Platelet Estimate Large Platelets Giant Platelets % Immature Plt Fraction Hypochromasia Anisocytosis Schistocytes Puncture Site ABG pH ABG pCO2 ABG pO2 ABG PO2/FiO2 Ratio ABG HCO3 ABG O2 Saturation ABG O2 Content ABG Base Excess A-a Gradient Oxyhemoglobin Carboxyhemoglobin Methemoglobin Reduced Hemoglobin Total Hemoglobin O2 Delivery Device O2 Liters/Min Minute Volume Vent Rate Vent Mode FiO2 Tidal Volume PEEP Peak Inspir Pressure Pressure Support Sodium Potassium Chloride Carbon Dioxide Anion Gap BUN Creatinine Estim Creat Clear Calc Estimated GFR Glucose POC Capillary Glucose 96 Calcium Phosphorus Magnesium Total Bilirubin AST ALT Alkaline Phosphatase Total Protein Albumin
[2024-09-02 08:30] LABS: Glucose Point of Care 99 mg/dl (65-105)
[2024-09-02] MEDS: EPOETIN ALFA-EPBX 4,000 UNITS/ML VIAL 4000 UNITS IV PUSH (09:50)
[2024-09-02] MEDS: SODIUM CHLORIDE 0.9% IV 1,000 ML 999 ML IV CONT (09:50)
--- NOTE | 2024-09-02 10:45 | PCFNICU ---
ICU Rounding Note: Pt current nutrition is Nepro at 40 ml/hr with Prosource BID. Last recorded weight is 100.4 kg, down from 102 kg on admit. Dialysis patient. Bowel Motility: +BM reported 4/2 Labs Reviewed: Mg 2.5, BUN 48, Cr 5.49, Hct 32.3, Hgb 9.9 Meds Noted:Levophed, Protonix, Synthroid. Skin: WNL Additional Notes: Patient current with Trach, tube feedings are being tolerated of Nepro at 40 ml/hr with Protein Modulars of Prosource BID. Total Nutrition: 1744 kcal/112 gm protein/640 ml water. Meeting 100% kcal needs at 18 kcal/kg and 91% protein needs at 1.2 kcal/kg. Flush 30 ml q 4 hours. Plans for breathing trial today after dialysis. Following daily in ICU rounds. Monitoring TF tolerance, weights, labs, meds, plan of care Follow up Friday/Friday.
[2024-09-02 11:32] LABS: Glucose Point of Care 83 mg/dl (65-105)
--- NOTE | 2024-09-02 12:15 | P.PNNP_ITS ---
Progress Note: A&P Assessment and Plan (1) End stage renal disease: Code(s): N18.6 - End stage renal disease Status: Chronic Assessment and Plan: * HD tomorrow * continue Friday//Friday dialysis schedule while hospitalized * follow electrolytes, volume status, and clearance (2) Acute on chronic respiratory failure with hypoxia and hypercapnia: Code(s): J96.21 - Acute and chronic respiratory failure with hypoxia; J96.22 - Acute and chronic respiratory failure with hypercapnia Status: Acute Assessment and Plan: * due to several issues: * pulmonary edema * possible pneumonia * obesity hypoventilation * chronic respiratory failure secondary to laryngeal cancer status post laryngectomy and laryngeal tube placement * on mechanical ventilation * fluid removal with dry ultrafiltration and dialysis as tolerated by hemodynamics * antibiotic therapy for pneumonia (3) Hypotension: Code(s): I95.9 - Hypotension, unspecified Status: Acute Assessment and Plan: * resolved * noted since AM on 08/28 * worsened by administration scheduled BP medication on 08/28 as well * was asymptomatic * BP medications on hold * was on oral midodrine therapy - on hold currently * due to early sepsis?? * recent CXR with pneumonia * vasopressor therapy as needed - currently off * follow trend of hemodynamics (4) Pneumonia: Code(s): J18.9 - Pneumonia, unspecified organism Status: Acute Assessment and Plan: * as suggested by recent imaging * follow culture data - sputum culture noted * on antibiotic therapy (5) Hypertension: Code(s): I10 - Essential (primary) hypertension Status: Chronic Assessment and Plan: * BP medications on hold due to hypotension * resume as needed * follow trend of hemodynamics (6) Type 2 diabetes mellitus: Code(s): E11.9 - Type 2 diabetes mellitus without complications Status: Chronic Assessment and Plan: * follow accu-cheks * glycemic control per hospitalist Will continue to follow. L Subjective Date/time seen: 09/02/24 12:15 Interval history: Follow-up for end stage renal disease on hemodialysis. Tolerating dialysis treatment at the time of my visit (seen on HD at 12:05PM); no apparent distress noted; remains on ventilator support via tracheostomy tube; no issues/events overnight or earlier this morning; hemodynamically stable; no other acute complaints voiced. Exam 2 Narrative: General: WD/WN male in NAD; on mechanical ventilation Heart: normal S1 and S2; no rub Lungs: coarse with decreased breath sounds at bases Abdomen: soft, nontender but mild distension, positive bowel sounds Extremities: no cyanosis or clubbing; trace - 1+ edema in UEs and LEs Skin: no rash Objective Data Vital Signs Vital Signs: Vital Signs Temp Pulse Resp BP Pulse Ox O2 Del Method FiO2 09/02/24 12:00 97.8 F 78 20 152/77 H 100 Mechanical Ventilation 35 09/02/24 11:45 73 139/79 09/02/24 11:30 70 136/70 09/02/24 11:18 77 100 Mechanical Ventilation 35 09/02/24 11:15 70 134/70 09/02/24 11:00 76 146/74 H 09/02/24 10:45 79 136/76 09/02/24 10:30 73 139/72 09/02/24 10:15 64 125/69 09/02/24 10:00 61 09/02/24 10:00 98.2 F 62 17 121/63 99 09/02/24 10:00 64 121/63 09/02/24 09:45 69 122/64 09/02/24 09:30 70 116/65 09/02/24 09:14 65 131/70 09/02/24 09:06 65 123/61 09/02/24 08:50 35 09/02/24 08:50 98.4 F 71 18 127/65 98 09/02/24 08:28 83 23 H 09/02/24 08:21 82 96 Mechanical Ventilation 35 09/02/24 08:16 81 25 H 09/02/24 08:00 35 09/02/24 08:00 77 09/02/24 08:00 Mechanical Ventilation 35 09/02/24 08:00 98.1 F 73 22 H 133/82 96 09/02/24 06:00 69 09/02/24 06:00 71 20 118/66 99 09/02/24 05:15 72 98 Mechanical Ventilation 35 09/02/24 04:00 70 09/02/24 04:00 94 Mechanical Ventilation 35 09/02/24 04:00 98.9 F 70 20 135/76 94 09/02/24 04:00 35 09/02/24 03:56 66 26 H 09/02/24 02:46 66 99 Mechanical Ventilation 35 09/02/24 02:00 71 09/02/24 02:00 71 18 121/68 99 09/02/24 00:00 98.3 F 61 20 137/69 97 09/02/24 00:00 60 09/02/24 00:00 96 Mechanical Ventilation 35 09/02/24 00:00 35 09/01/24 23:13 61 96 Mechanical Ventilation 35 09/01/24 22:00 61 09/01/24 22:00 61 21 H 119/62 93 09/01/24 20:50 60 95 Mechanical Ventilation 35 09/01/24 20:00 64 09/01/24 20:00 94 Mechanical Ventilation 35 09/01/24 20:00 35 09/01/24 20:00 98.6 F 59 L 20 128/67 96 09/01/24 18:00 57 L 09/01/24 18:00 98.5 F 56 L 17 142/71 H 96 09/01/24 17:57 56 L 95 Mechanical Ventilation 35 Intake/Output Intake/Output: Intake & Output 08/30/24 08/31/24 09/01/24 09/02/24 23:59 23:59 23:59 23:59 Intake Total 741.7 746.1 2502.5 980 Output Total 3000 3000 0 3000 Balance -2258.3 -2253.9 2502.5 -2020 Meds/Results Medications: Active Medications Generic Name Dose Route Start Last Admin Trade Name Freq PRN Reason Stop Dose Admin Acetaminophen 650 mg 08/27/24 15:58 Acetaminophen 325 Mg Tablet PO Q4H PRN Mild Pain (1-3) or Fever Albuterol/Ipratropium 3 ml 09/02/24 02:00 09/02/24 14:21 Ipratropium 0.5 Mg/Albuterol Sulfate 2.5 Mg Ampul.Neb 3 Ml INHALATION 3 ml Q6HRT ISELA Administration Apixaban 10 mg 09/01/24 10:40 09/02/24 13:05 Apixaban 5 Mg Tablet PO 09/07/24 21:01 10 mg Q12HR ISELA Administration Apixaban 5 mg 09/08/24 09:00 Apixaban 5 Mg Tablet PO Q12HR ISELA Dextrose 12.5 gm 08/27/24 23:31 08/30/24 07:50 Dextrose 50% 25 Gm/50 Ml Syringe IV PUSH 12.5 gm PRN PRN Administration Hypoglycemia Protocol Epoetin Shawn-epbx 4,000 units 09/02/24 18:14 09/02/24 09:50 Epoetin Shawn-Epbx 4,000 Units/Ml Vial IV PUSH 09/02/24 18:15 4,000 units ONCE ONE Administration Glucagon 1 mg 08/27/24 23:31 Glucagon For Inj 1 Mg Vial IM PRN PRN Hypoglycemia Protocol Glucose 15 gm 08/27/24 23:31 Glucose Oral Gel 15 Gm Of Glucse In 37.5 Gm Tube PO PRN PRN Hypoglycemia Protocol Dextrose 1,000 mls @ 100 mls/hr 08/27/24 23:31 Dextrose 5% 1,000 Ml IVPB PRN PRN Hypoglycemia Protocol Albumin Human 50 mls @ 999 mls/hr 08/28/24 01:42 08/28/24 12:30 Albutein IVPB 09/27/24 01:41 Infused Q10M PRN Infusion HYPOTENSION Azithromycin 500 mg in 250 mls @ 250 mls/hr 08/29/24 09:00 09/02/24 15:29 Zithromax IVPB 09/03/24 08:59 Infused Q24H ISELA Infusion Piperacillin Sod/Tazobactam Sod 2.25 gm in 50 mls @ 100 mls/hr 08/30/24 11:00 09/02/24 15:29 Zosyn 2.25 Gm/Ns 50 Ml IVPB 09/08/24 23:59 Infused Q6HR ISELA Infusion Insulin Aspart 3 - 6 units 08/29/24 17:00 09/02/24 12:17 Insulin Aspart (*Bkc) 100 Units/Ml SUB-Q Not Given Q4HR [facility] Protocol Levothyroxine Sodium 75 mcg 08/28/24 06:30 09/02/24 06:14 Levothyroxine Sodium 75 Mcg Tablet PO 75 mcg DAILY@0630 ISELA Administration Levothyroxine Sodium 100 mcg 08/28/24 06:30 09/02/24 06:14 Levothyroxine Sodium 100 Mcg Tablet PO 100 mcg DAILY@0630 ISELA Administration Midodrine 10 mg 08/29/24 08:00 09/02/24 13:08 Midodrine Hcl 10 Mg Tablet PO Not Given TID ISELA Pantoprazole Sodium 40 mg 08/30/24 09:00 09/02/24 13:05 Pantoprazole Sodium Iv 40 Mg Vial IV PUSH 40 mg QAM ISELA Administration Pravastatin Sodium 40 mg 08/28/24 09:00 09/02/24 13:05 Pravastatin Sodium 20 Mg Tablet PO 40 mg DAILY ISELA Administration Sevelamer Carbonate 1.6 gm 08/30/24 13:50 09/02/24 13:05 Sevelamer Carbonate 0.8 Gm Oral Powder Packet FEED TUBE 1.6 gm TIDWM ISELA Administration Sodium Chloride 10 ml 08/29/24 22:00 09/02/24 13:06 Central Line Flush IV PUSH 10 ml Q8HR ISELA Administration Sodium Chloride 20 ml 08/29/24 17:00 08/29/24 23:07 Central Line Flush IV PUSH 10 ml PRN PRN Administration after blood draws Radiology Results: ITS Impressions Abdomen X-Ray 08/30/24 09:26 IMPRESSION: 1: NG tube coiled in the stomach. Venous Doppler Study 08/30/24 10:40 IMPRESSION: 1. Bilateral below the knee deep venous thrombosis in the peroneal veins. Findings were discussed with Annabel Macedo, the nurse caring for the patient, at 10:49 AM. Chest X-Ray 08/31/24 09:41 Impression: 1: Cardiomegaly with persistent pulmonary edema and pleural effusions. 2: Focal right apical opacity which overlies the first costochondral junction which may represent sclerosis at the junction or underlying parenchymal nodule. Consider correlation with CT chest to exclude underlying parenchymal abnormality. Chest CTA 09/02/24 08:13 Impression: No evidence of pulmonary embolus, aortic dissection, or aortic aneurysm. Moderate right pleural effusion and small left pleural effusion. Bibasilar atelectasis and mild pulmonary edema. Labs Labs: Laboratory Tests 09/02/24 06:23 09/02/24 06:23 Calcium 9.2 Phosphorus 1.9 L Magnesium 2.5 H Total Bilirubin 0.9 AST 19 ALT 10 Alkaline Phosphatase 70 Total Protein 7.0 Albumin 3.7
--- NOTE | 2024-09-02 12:15 | P.CDI_ITS ---
CDI Query Clarification Request 1)Please specify type and acuity of heart failure if known. * Acute * Chronic * Acute on Chronic * Unknown * Systolic * Diastolic * Combined Systolic and Diastolic * Unknown 2) Please clarify if sepsis was present on admission The medical chart reflects the following: (4) Right-sided heart failure: Code(s): I50.810 - Right heart failure, unspecified Status: Acute Assessment and Plan: * Blood pressure in 70's-80's. Midodrine increased 10 mg PO TID. * Patient is on hemodialysis. documented on 08/29 adding sepsis (9) Sepsis: Code(s): A41.9 - Sepsis, unspecified organism Status: Acute Assessment and Plan: Although patient is afebrile and has had normal WBC. He was started on antibiotics for pneumonia considering lung infiltrates on chest x-ray Pneumonia appears to be less likely from clinical picture. I will continue antibiotics and check procalcitonin and lactic acid level. He had blood cultures done this morning which are pending And vancomycin 09/02 CTA: Impression: No evidence of pulmonary embolus, aortic dissection, or aortic aneurysm. Moderate right pleural effusion and small left pleural effusion. Bibasilar atelectasis and mild pulmonary edema. IV abx <Melany Roca RN - Last Filed: 09/02/24 12:21> Clarified Diagnosis Clarified Diagnosis: Acute on Chronic distolic <Gayle Miranda MD - Last Filed: 09/15/24 08:06>
[2024-09-02] MEDS: APIXABAN 5 MG TABLET 10 MG PO ×2 (13:05→20:47)
[2024-09-02] MEDS: PANTOPRAZOLE SODIUM IV 40 MG VIAL IV PUSH (13:05)
[2024-09-02] MEDS: SEVELAMER CARBONATE 0.8 GM ORAL POWDER PACKET 1.6 GM FEED TUBE ×2 (13:05→16:18)
[2024-09-02] MEDS: PRAVASTATIN SODIUM 20 MG TABLET 40 MG PO (13:05)
[2024-09-02] MEDS: MIDODRINE HCL 10 MG TABLET PO ×2 (13:05→16:19)
[2024-09-02] MEDS: AZITHROMYCIN 500 MG/NS 250 ML 500 MG/250 ML BAG 250 MG IVPB (13:06)
[2024-09-02 16:15] LABS: Glucose Point of Care 96 mg/dl (65-105)
[2024-09-02 19:30] LABS: Glucose Point of Care 100 mg/dl (65-105)
[2024-09-03] VITALS (30 sets, daily range): BP systolic 104–154; BP diastolic 55–91; PULSE 61–110; RESP 15–38; TEMP 36.6–36.9; O2SAT 88–100
[2024-09-03] MEDS: IPRATROPIUM 0.5 MG/ALBUTEROL SULFATE 2.5 MG AMPUL.NEB 3 ML INHALATION ×4 (02:06→20:37)
[2024-09-03 02:44] LABS: Glucose Point of Care 93 mg/dl (65-105)
[2024-09-03] MEDS: PIPERACILLIN/TAZ 2.25G/NS 50ML 2.25 GM/50 ML BAG IVPB ×3 (05:07→17:26)
[2024-09-03] MEDS: CENTRAL LINE FLUSH 10 ML IV PUSH (05:07)
[2024-09-03] MEDS: LEVOTHYROXINE SODIUM 75 MCG TABLET PO (05:07)
[2024-09-03] MEDS: LEVOTHYROXINE SODIUM 100 MCG TABLET PO (05:07)
[2024-09-03 05:33] LABS: Basophils Absolute Auto 0.1 K/mm3 (0.0-0.1); Basophils Percent Auto 0.9 % (0.2-1.2); Eosinophils Absolute Auto 0.1 K/mm3 (0-0.3); Hematocrit 32.2 % (42.0-52.0); Hemoglobin 9.6 g/dL (14.0-18.0); Immature Granulocyte Absolute 0.05 K/mm3 (0.00-0.031); Immature Granulocyte Percent A 0.9 % (0-0.5); Immature Platelet Fraction Pct 4.5 % (0.9-11.2); Lymphocytes Absolute Auto 0.58 K/mm3 (0.9-3.2); Lymphocytes Percent Auto 10.7 % (18.3-44.2); Mean Corpuscular HGB Conc 29.8 g/dl (32-36); Mean Corpuscular Hemoglobin 33.4 pg (26-34); Mean Corpuscular Volume 112.2 fl (80-100); Mean Platelet Volume 11.6 fl (7.4-10.4); Monocytes Absolute Auto 0.6 K/mm3 (0.1-0.6); Neutrophils Percent Auto 74.5 % (45.5-73.1); Platelet Count Result 113 k/mm3 (150-375); Red Blood Count 2.87 M/mm3 (4.6-6.20); Red Cell Distribution Width 14.8 % (11.5-14.5); White Blood Count 5.4 K/mm3 (4.5-10.0)
[2024-09-03 05:37] LABS: Alveolar/Arterial O2 Gradient 123.2 mmHg; Base Excess ABG 2.9 mEq/l (+/-2.0); Carboxyhemoglobin 0.9 % THb (0-2.0); Fractional Inspired Oxygen 35 %; HCO3 ABG 27.8 mEq/l (22.0-26.0); Methemoglobin ABG 0.3 %THb (0-1.5); Oxygen Content ABG 14.1 %vol (16.0-22.0); Oxygen Saturation ABG 95.3 % (95.0-100.0); Oxyhemoglobin 94.1 % THb (90.0-100.0); PO2 ABG 75.2 mmHg (80.0-100.0); PO2 FiO2 Ratio Arterial Blood 2.15 %; Reduced Hemoglobin 4.7 %THb (0-5.0); Total Hemoglobin 10.6 g/dL (12.0-18.0); pH ABG 7.418 (7.350-7.450)
[2024-09-03 05:49] LABS: Alanine Aminotransferase 10 U/L (6-50); Albumin Level 3.6 g/dL (3.5-5.1); Alkaline Phosphatase 78 U/L (38-126); Anion Gap 7 mmol/L (4-12); Aspartate Amino Transferase 15 U/L (17-59); Bilirubin,Total 0.8 mg/dL (0.2-1.3); Blood Urea Nitrogen 34 mg/dL (9-20); Calcium 8.8 mg/dL (8.4-10.2); Carbon Dioxide 32 mmol/L (22-30); Chloride 99 mmol/L (98-107); Estimated CRCL calculation 20 ml/min; Estimated Glomerular Filt Rate 14; Glucose 99 mg/dL (65-110); Magnesium 2.3 mg/dL (1.6-2.3); Phosphorus 1.7 mg/dL (2.5-4.5); Potassium 3.5 mmol/L (3.4-5.0); Sodium 138 mmol/L (137-145)
[2024-09-03 05:55] LABS: Anisocytosis 1+; Band Neutrophils Percent 0 % (0-6); Hypochromasia 1+; Ovalocytes 1+; Platelet Estimate Adequate (Adequate); Schistocytes Rare
[2024-09-03 06:05] LABS: Device VENTILATOR; Modified Allen's Test Pass; Site Drawn LEFT RADIAL
[2024-09-03 06:07] LABS: Arterial Blood Gas PEEP 8 cmH2O; Arterial Blood Gas Tidal Volume 380 ml; Arterial Blood Gas Vent Mode CMV; Arterial Blood Gas Ventilator rate 20 /MIN
[2024-09-03 07:23] LABS: Glucose Point of Care 114 mg/dl (65-105)
--- NOTE | 2024-09-03 08:35 | P.PNINT_ITS ---
Progress Note: A&P Assessment and Plan (1) Acute on chronic respiratory failure with hypoxia and hypercapnia: Code(s): J96.21 - Acute and chronic respiratory failure with hypoxia; J96.22 - Acute and chronic respiratory failure with hypercapnia Status: Acute Assessment and Plan: Acute on chronic respiratory failure secondary to pulmonary edema and possible pneumonia, obesity hypoventilation, chronic respiratory failure secondary to laryngeal cancer status post laryngectomy and laryngeal tube placement 08/29 His laryngeal tube cannot be attached to ventilator or BiPAP. An emergent ET tube was inserted through the laryngeal tube to secure airway and attached to mechanical ventilation Due to small size of airway we are having high pressures and gradually increasing mechanical ventilation 08/31 laryngeal tube was switched to a cuffed tracheostomy tube by ENT physician. Size 8 Shiley ABG reviewed CTA chest09/02 No evidence of pulmonary embolus, aortic dissection, or aortic aneurysm. Moderate right pleural effusion and small left pleural effusion. Bibasilar atelectasis and mild pulmonary edema. Continue PEEP to 8. FiO2 weaned out of 35%. I will try to PSV trial today Continue fluid removed with dialysis He is on empiric antibiotic therapy for pneumonia - see below (2) Hypotension: Code(s): I95.9 - Hypotension, unspecified Status: Acute Assessment and Plan: 1 admission to ICU patient was hypotensive and has been started on Levophed. Patient does have history of hypertension and was on antihypertensive medications. Hypotension could be secondary to hypoxia and acidosis as blood pressure is now improving after patient has been placed on mechanical ventilation. Since he is already volume overloaded he has been started on Levophed to maintain mean arterial pressure to be able to dialyze patient There is also a possibility of sepsis although patient has been afebrile with normal WBC count. 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 - Tracheostomy status Status: Acute Assessment and Plan: See above (6) End-stage renal disease on hemodialysis: Code(s): N18.6 - End stage renal disease; Z99.2 - Dependence on renal dialysis Status: Acute Assessment and Plan: Patient was dialyzed yesterday and will be dialyzed again tomorrow with goal to try to remove fluid (7) Pulmonary edema: Qualifiers: Chronicity: acute Qualified Code(s): J81.0 - Acute pulmonary edema Code(s): J81.1 - Chronic pulmonary edema Status: Acute Assessment and Plan: See above (8) Generalized edema: Code(s): R60.1 - Generalized edema Status: Acute Assessment and Plan: See above (9) Sepsis: Code(s): A41.9 - Sepsis, unspecified organism Status: Acute Assessment and Plan: Although patient is afebrile and has had normal WBC. He was started on antibiotics for community-acquired pneumonia considering lung infiltrates on chest x-ray Pneumonia appears to be less likely from clinical picture. His procalcitonin level was low. He sputum culture is growing Pseudomonas which is pansensitive MRSA screen was negative there is a possibility of him aspirating since he has been eating Continue Zosyn or (10) DVT (deep venous thrombosis): Code(s): I82.409 - Acute embolism and thrombosis of unspecified deep veins of unspecified lower extremity Status: Acute Assessment and Plan: Lower extremity Dopplers done on 08/30 showed Bilateral below the knee deep venous thrombosis in the peroneal veins. Findings were discussed with Annabel Macedo, the nurse caring for the patient, at 10:49 AM. Patient is bedridden and ventilator dependent and high risk of further worsening of DVT. Patient has been started on heparin infusion and has been tolerating. I do not anticipate any procedures at this time and side will start him on Eliquis A CTA of the chest was not done imaging to rule out PE as when I saw the patient patient was already getting dialyzed. It will also not change manage ment at this point as patient is already on anticoagulation. Patient is getting CTA today and will get dialyzed after that Continue Eliquis Echo Summary 1. Left ventricular chamber dimension is normal. 2. Left ventricular systolic function is normal, estimated at 50-55%. 3. There is mildly increased left ventricular wall thickness. 4. The left ventricular diastolic function is grade I diastolic dysfunction. 5. Right ventricular chamber dimension is moderately enlarged. 6. Right ventricular systolic function is reduced. 7. Right atrial chamber dimension is moderately enlarged. 8. There is mild mitral valve regurgitation. 9. There is moderate tricuspid valve regurgitation. 10. Estimated pulmonary arterial systolic pressure is 57 mmHg. 11. Dilated inferior vena cava with no collapse upon inspiration consistent with elevated right atrial pressure, 15 mmHg. Plan DVT prophylaxis -Eliquis Stress ulcer prophylaxis -PPI Nutrition - continue tube feed Code Status - Full Code Total Critical Care Time - 30 minutes Due to a high probability of clinically significant, life threatening deterioration, the patient required my highest level of preparedness to intervene emergently and I personally spent this critical care time directly and personally managing the patient. This critical care time included obtaining a history; examining the patient; pulse oximetry; ordering and review of studies; arranging urgent treatment with development of a management plan; evaluation of patient's response to treatment; frequent reassessment; and discussions with other providers. It was exclusive of separately billable procedures and treating other patients and teaching time. Please see Assessment and Plan section and the rest of the note for further information on patient assessment and treatment Subjective Date/time seen: 09/03/24 Patient had CTA chest done yesterday and was dialyzed after that.. He continues to be on mechanical ventilation and FiO2 is down to 35 %. He is awake alert and denies any complaint. Nodes is had no to pain shortness a breath chest pain cough belly pain nausea vomiting. Tolerating tube feeds. Afebrile.. Review of Systems Review of Systems: ROS unobtainable: Yes unobtainable due to endotracheal tube Exam Narrative: General: Pt is ill-appearing gentleman who appears older than his age. He is awake follows command and is in no distress Lungs/Chest: Decreased bilateral breath sounds overall occasional crackles and decreased breath sound at bases, Cardiac: RRR. Normal S1 S2. No murmurs Circulation: Feet are well Abdomen: Decreased bowel sounds. Morbid Obese. Soft. NT. ND. 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 : Hay in place Neurologic: Awake follows commands with all 4 extremities PERRL Objective Data Vital Signs Vital Signs: Vital Signs - 24 hr 09/02/24 08:50 09/02/24 08:50 09/02/24 09:06 Temperature 36.9 C Pulse Rate 71 65 Respiratory Rate 18 Blood Pressure 127/65 123/61 Pulse Oximetry 98 Oxygen Delivery Fraction of Inspired Oxygen 35 09/02/24 09:14 09/02/24 09:30 09/02/24 09:45 Temperature Pulse Rate 65 70 69 Respiratory Rate Blood Pressure 131/70 116/65 122/64 Pulse Oximetry Oxygen Delivery Fraction of Inspired Oxygen 09/02/24 10:00 09/02/24 10:00 09/02/24 10:00 Temperature 36.8 C Pulse Rate 64 62 61 Respiratory Rate 17 Blood Pressure 121/63 121/63 Pulse Oximetry 99 Oxygen Delivery Fraction of Inspired Oxygen 09/02/24 10:15 09/02/24 10:30 09/02/24 10:45 Temperature Pulse Rate 64 73 79 Respiratory Rate Blood Pressure 125/69 139/72 136/76 Pulse Oximetry Oxygen Delivery Fraction of Inspired Oxygen 09/02/24 11:00 09/02/24 11:15 09/02/24 11:18 Temperature Pulse Rate 76 70 77 Respiratory Rate Blood Pressure 146/74 H 134/70 Pulse Oximetry 100 Oxygen Delivery Mechanical Ventilation Fraction of Inspired Oxygen 35 09/02/24 11:30 09/02/24 11:45 09/02/24 12:00 Temperature Pulse Rate 70 73 78 Respiratory Rate Blood Pressure 136/70 139/79 152/77 H Pulse Oximetry Oxygen Delivery Fraction of Inspired Oxygen 09/02/24 12:00 09/02/24 12:00 09/02/24 12:00 Temperature 36.6 C Pulse Rate 78 Respiratory Rate 20 Blood Pressure 152/77 H Pulse Oximetry 100 Oxygen Delivery Mechanical Ventilation Fraction of Inspired Oxygen 35 35 09/02/24 12:00 09/02/24 12:15 09/02/24 12:30 Temperature Pulse Rate 81 85 81 Respiratory Rate Blood Pressure 147/82 H 146/75 H Pulse Oximetry Oxygen Delivery Fraction of Inspired Oxygen 09/02/24 12:36 09/02/24 12:50 09/02/24 14:00 Temperature 36.6 C Pulse Rate 80 69 69 Respiratory Rate 18 Blood Pressure 146/72 H 146/72 H Pulse Oximetry 97 Oxygen Delivery Fraction of Inspired Oxygen 09/02/24 14:00 09/02/24 14:21 09/02/24 14:23 Temperature 36.9 C Pulse Rate 78 79 79 Respiratory Rate 18 23 H Blood Pressure 122/65 Pulse Oximetry 99 96 Oxygen Delivery Mechanical Ventilation Fraction of Inspired Oxygen 35 09/02/24 14:30 09/02/24 16:00 09/02/24 16:00 Temperature 36.7 C Pulse Rate 79 63 Respiratory Rate 22 H 21 H Blood Pressure 109/74 Pulse Oximetry 100 Oxygen Delivery Mechanical Ventilation Fraction of Inspired Oxygen 35 09/02/24 16:00 09/02/24 16:00 09/02/24 16:55 Temperature Pulse Rate 67 70 Respiratory Rate Blood Pressure Pulse Oximetry 96 Oxygen Delivery Mechanical Ventilation Fraction of Inspired Oxygen 35 35 09/02/24 18:00 09/02/24 18:00 09/02/24 20:00 Temperature 36.9 C Pulse Rate 65 67 Respiratory Rate 22 H Blood Pressure 124/77 Pulse Oximetry 99 Oxygen Delivery Fraction of Inspired Oxygen 35 09/02/24 20:00 09/02/24 20:00 09/02/24 20:21 Temperature 37.0 C Pulse Rate 66 63 78 Respiratory Rate 20 24 H Blood Pressure 134/74 Pulse Oximetry 100 Oxygen Delivery Fraction of Inspired Oxygen 09/02/24 20:22 09/02/24 20:32 09/02/24 20:32 Temperature Pulse Rate 74 74 74 Respiratory Rate 24 H 23 H Blood Pressure Pulse Oximetry 96 96 Oxygen Delivery Mechanical Ventilation Mechanical Ventilation Fraction of Inspired Oxygen 35 35 09/02/24 22:00 09/02/24 22:00 09/02/24 22:00 Temperature 36.9 C Pulse Rate 97 99 100 Respiratory Rate 26 H 25 H Blood Pressure 110/62 110/62 Pulse Oximetry 100 100 Oxygen Delivery Fraction of Inspired Oxygen 09/02/24 23:06 09/03/24 00:00 09/03/24 00:00 Temperature 36.8 C Pulse Rate 77 80 80 Respiratory Rate 20 20 Blood Pressure 131/71 Pulse Oximetry 100 100 100 Oxygen Delivery Mechanical Ventilation Mechanical Ventilation Fraction of Inspired Oxygen 35 35 09/03/24 00:00 09/03/24 00:00 09/03/24 02:00 Temperature Pulse Rate 79 77 Respiratory Rate Blood Pressure Pulse Oximetry Oxygen Delivery Fraction of Inspired Oxygen 35 09/03/24 02:00 09/03/24 02:07 09/03/24 02:10 Temperature Pulse Rate 77 75 77 Respiratory Rate 22 H 24 H Blood Pressure 145/55 H Pulse Oximetry 98 96 Oxygen Delivery Mechanical Ventilation Fraction of Inspired Oxygen 35 09/03/24 02:20 09/03/24 04:00 09/03/24 04:00 Temperature 36.6 C Pulse Rate 77 61 Respiratory Rate 24 H 20 Blood Pressure 104/55 L Pulse Oximetry 98 Oxygen Delivery Fraction of Inspired Oxygen 35 09/03/24 04:00 09/03/24 04:14 09/03/24 05:30 Temperature Pulse Rate 65 61 77 Respiratory Rate 20 Blood Pressure Pulse Oximetry 98 100 Oxygen Delivery Mechanical Ventilation Mechanical Ventilation Fraction of Inspired Oxygen 35 35 09/03/24 06:00 09/03/24 06:00 09/03/24 07:28 Temperature 36.7 C 36.9 C Pulse Rate 82 81 Respiratory Rate 20 Blood Pressure 154/73 H Pulse Oximetry 98 Oxygen Delivery Fraction of Inspired Oxygen 09/03/24 07:52 09/03/24 07:54 09/03/24 08:00 Temperature Pulse Rate 90 88 86 Respiratory Rate 20 24 H Blood Pressure 124/67 Pulse Oximetry 96 95 Oxygen Delivery Mechanical Ventilation Fraction of Inspired Oxygen 35 09/03/24 08:04 Temperature Pulse Rate 97 Respiratory Rate 19 Blood Pressure Pulse Oximetry Oxygen Delivery Fraction of Inspired Oxygen Intake/Output Intake/Output: Intake & Output 08/31/24 09/01/24 09/02/24 09/03/24 23:59 23:59 23:59 23:59 Intake Total 746.1 2502.5 1437 857 Output Total 3000 0 3000 Balance -2253.9 2502.5 -1563 857 Meds/Results Medications: Active Medications Generic Name Dose Route Start Last Admin Trade Name Freq PRN Reason Stop Dose Admin Acetaminophen 650 mg 08/27/24 15:58 Acetaminophen 325 Mg Tablet PO Q4H PRN Mild Pain (1-3) or Fever Albuterol/Ipratropium 3 ml 09/02/24 02:00 09/03/24 07:51 Ipratropium 0.5 Mg/Albuterol Sulfate 2.5 Mg Ampul.Neb 3 Ml INHALATION 3 ml Q6HRT ISELA Administration Apixaban 10 mg 09/01/24 10:40 09/02/24 20:47 Apixaban 5 Mg Tablet PO 09/07/24 21:01 10 mg Q12HR ISELA Administration Apixaban 5 mg 09/08/24 09:00 Apixaban 5 Mg Tablet PO Q12HR ISELA Dextrose 12.5 gm 08/27/24 23:31 08/30/24 07:50 Dextrose 50% 25 Gm/50 Ml Syringe IV PUSH 12.5 gm PRN PRN Administration Hypoglycemia Protocol Glucagon 1 mg 08/27/24 23:31 Glucagon For Inj 1 Mg Vial IM PRN PRN Hypoglycemia Protocol Glucose 15 gm 08/27/24 23:31 Glucose Oral Gel 15 Gm Of Glucse In 37.5 Gm Tube PO PRN PRN Hypoglycemia Protocol Dextrose 1,000 mls @ 100 mls/hr 08/27/24 23:31 Dextrose 5% 1,000 Ml IVPB PRN PRN Hypoglycemia Protocol Albumin Human 50 mls @ 999 mls/hr 08/28/24 01:42 08/28/24 12:30 Albutein IVPB 09/27/24 01:41 Infused Q10M PRN Infusion HYPOTENSION Azithromycin 500 mg in 250 mls @ 250 mls/hr 08/29/24 09:00 09/02/24 15:29 Zithromax IVPB 09/03/24 08:59 Infused Q24H ISELA Infusion Piperacillin Sod/Tazobactam Sod 2.25 gm in 50 mls @ 100 mls/hr 08/30/24 11:00 09/03/24 05:37 Zosyn 2.25 Gm/Ns 50 Ml IVPB 09/08/24 23:59 Infused Q6HR ISELA Infusion Potassium Phosphate 20 mmol/ 256.6667 mls @ 64.167 mls/hr 09/03/24 09:00 Sodium Chloride IVPB 09/03/24 12:59 ONCE ONE Insulin Aspart 3 - 6 units 09/03/24 12:00 Insulin Aspart (*Bkc) 100 Units/Ml SUB-Q Q6HR ISELA Protocol Levothyroxine Sodium 75 mcg 08/28/24 06:30 09/03/24 05:07 Levothyroxine Sodium 75 Mcg Tablet PO 75 mcg DAILY@0630 ISELA Administration Levothyroxine Sodium 100 mcg 08/28/24 06:30 09/03/24 05:07 Levothyroxine Sodium 100 Mcg Tablet PO 100 mcg DAILY@0630 ISELA Administration Midodrine 10 mg 08/29/24 08:00 09/02/24 16:19 Midodrine Hcl 10 Mg Tablet PO 10 mg TID ISELA Administration Pantoprazole Sodium 40 mg 08/30/24 09:00 09/02/24 13:05 Pantoprazole Sodium Iv 40 Mg Vial IV PUSH 40 mg QAM ISELA Administration Pravastatin Sodium 40 mg 08/28/24 09:00 09/02/24 13:05 Pravastatin Sodium 20 Mg Tablet PO 40 mg DAILY ISELA Administration Sevelamer Carbonate 1.6 gm 08/30/24 13:50 09/02/24 16:18 Sevelamer Carbonate 0.8 Gm Oral Powder Packet FEED TUBE 1.6 gm TIDWM ISELA Administration Sodium Chloride 10 ml 08/29/24 22:00 09/03/24 05:07 Central Line Flush IV PUSH 10 ml Q8HR ISELA Administration Sodium Chloride 20 ml 08/29/24 17:00 08/29/24 23:07 Central Line Flush IV PUSH 10 ml PRN PRN Administration after blood draws Radiology Results: ITS Impressions Abdomen X-Ray 08/30/24 09:26 IMPRESSION: 1: NG tube coiled in the stomach. Venous Doppler Study 08/30/24 10:40 IMPRESSION: 1. Bilateral below the knee deep venous thrombosis in the peroneal veins. Findings were discussed with Annabel Macedo, the nurse caring for the patient, at 10:49 AM. Chest CTA 09/02/24 08:13 Impression: No evidence of pulmonary embolus, aortic dissection, or aortic aneurysm. Moderate right pleural effusion and small left pleural effusion. Bibasilar atelectasis and mild pulmonary edema. Chest X-Ray 09/03/24 06:24 Impression: Moderate pleural effusions with mild pulmonary edema pattern. Stable hyperdense material the left lung base raises the possibility of prior aspiration. Support tubes, as above. Labs Labs: Laboratory Results - last 24 hr 09/02/24 09/02/24 09/02/24 11:21 16:11 19:28 WBC RBC Hgb Hct MCV MCH MCHC RDW Plt Count MPV Immature Gran % (Auto) Neut % (Auto) Lymph % (Auto) [place] % (Auto) Eos % (Auto) Baso % (Auto) Lymph # (Auto) [place] # (Auto) Eos # (Auto) Baso # (Auto) Abs Immat Gran (auto) Absolute Neuts (auto) Absolute Nucleated RBC Band Neutrophils % Nucleated RBC % Platelet Estimate % Immature Plt Fraction Hypochromasia Anisocytosis Ovalocytes Schistocytes Puncture Site ABG pH ABG pCO2 ABG pO2 ABG PO2/FiO2 Ratio ABG HCO3 ABG O2 Saturation ABG O2 Content ABG Base Excess A-a Gradient Oxyhemoglobin Carboxyhemoglobin Methemoglobin Reduced Hemoglobin Total Hemoglobin O2 Delivery Device O2 Liters/Min Minute Volume Vent Rate Vent Mode FiO2 Tidal Volume PEEP Peak Inspir Pressure Pressure Support Sodium Potassium Chloride Carbon Dioxide Anion Gap BUN Creatinine Estim Creat Clear Calc Estimated GFR Glucose POC Capillary Glucose 83 96 100 Calcium Phosphorus Magnesium Total Bilirubin AST ALT Alkaline Phosphatase Total Protein Albumin 09/02/24 09/03/24 09/03/24 23:13 05:11 05:21 WBC 5.4 RBC 2.87 L Hgb 9.6 L Hct 32.2 L MCV 112.2 H MCH 33.4 MCHC 29.8 L RDW 14.8 H Plt Count 113 L MPV 11.6 H Immature Gran % (Auto) 0.9 H Neut % (Auto) 74.5 H Lymph % (Auto) 10.7 L [place] % (Auto) 11.0 H Eos % (Auto) 2.0 Baso % (Auto) 0.9 Lymph # (Auto) 0.58 L [place] # (Auto) 0.6 Eos # (Auto) 0.1 Baso # (Auto) 0.1 Abs Immat Gran (auto) 0.05 H Absolute Neuts (auto) 4.0 Absolute Nucleated RBC 0.000 Band Neutrophils % 0 Nucleated RBC % 0.0 Platelet Estimate Adequate % Immature Plt Fraction 4.5 Hypochromasia 1+ Anisocytosis 1+ Ovalocytes 1+ Schistocytes Rare Puncture Site Left radial ABG pH 7.418 ABG pCO2 44.0 ABG pO2 75.2 L ABG PO2/FiO2 Ratio 2.15 ABG HCO3 27.8 H ABG O2 Saturation 95.3 ABG O2 Content 14.1 L ABG Base Excess 2.9 A-a Gradient 123.2 Oxyhemoglobin 94.1 Carboxyhemoglobin 0.9 Methemoglobin 0.3 Reduced Hemoglobin 4.7 Total Hemoglobin 10.6 L O2 Delivery Device Ventilator O2 Liters/Min Not Reportable Minute Volume Not Reportable Vent Rate 20 Vent Mode Cmv FiO2 35 Tidal Volume 380 PEEP 8 Peak Inspir Pressure Not Reportable Pressure Support Not Reportable Sodium 138 Potassium 3.5 Chloride 99 Carbon Dioxide 32 H Anion Gap 7 BUN 34 H D Creatinine 4.23 H Estim Creat Clear Calc 20 Estimated GFR 14 L Glucose 99 POC Capillary Glucose 93 Calcium 8.8 Phosphorus 1.7 L Magnesium 2.3 Total Bilirubin 0.8 AST 15 L ALT 10 Alkaline Phosphatase 78 Total Protein 7.0 Albumin 3.6 09/03/24 07:18 WBC RBC Hgb Hct MCV MCH MCHC RDW Plt Count MPV Immature Gran % (Auto) Neut % (Auto) Lymph % (Auto) [place] % (Auto) Eos % (Auto) Baso % (Auto) Lymph # (Auto) [place] # (Auto) Eos # (Auto) Baso # (Auto) Abs Immat Gran (auto) Absolute Neuts (auto) Absolute Nucleated RBC Band Neutrophils % Nucleated RBC % Platelet Estimate % Immature Plt Fraction Hypochromasia Anisocytosis Ovalocytes Schistocytes Puncture Site ABG pH ABG pCO2 ABG pO2 ABG PO2/FiO2 Ratio ABG HCO3 ABG O2 Saturation ABG O2 Content ABG Base Excess A-a Gradient Oxyhemoglobin Carboxyhemoglobin Methemoglobin Reduced Hemoglobin Total Hemoglobin O2 Delivery Device O2 Liters/Min Minute Volume Vent Rate Vent Mode FiO2 Tidal Volume PEEP Peak Inspir Pressure Pressure Support Sodium Potassium Chloride Carbon Dioxide Anion Gap BUN Creatinine Estim Creat Clear Calc Estimated GFR Glucose POC Capillary Glucose 114 H Calcium Phosphorus Magnesium Total Bilirubin AST ALT Alkaline Phosphatase Total Protein Albumin Quality VTE Prophylaxis VTE prophylaxis: mechanical ordered and pharmacologic ordered
[2024-09-03] MEDS: SEVELAMER CARBONATE 0.8 GM ORAL POWDER PACKET 1.6 GM FEED TUBE ×3 (08:38→17:26)
[2024-09-03] MEDS: MIDODRINE HCL 10 MG TABLET PO ×3 (08:39→17:26)
[2024-09-03] MEDS: APIXABAN 5 MG TABLET 10 MG PO ×2 (08:39→20:53)
[2024-09-03] MEDS: PANTOPRAZOLE SODIUM IV 40 MG VIAL IV PUSH (08:39)
[2024-09-03] MEDS: PRAVASTATIN SODIUM 20 MG TABLET 40 MG PO (08:39)
[2024-09-03] MEDS: POTASSIUM PHOS,M-BASIC-D-BASIC 20 MMOL in SODIUM CHLORIDE 0.9% IV 250 ML 64.17 MMOL IVPB (08:56)
[2024-09-03 09:10] LABS: Alveolar/Arterial O2 Gradient 116.1 mmHg; Base Excess ABG 2.5 mEq/l (+/-2.0); Fractional Inspired Oxygen 35 %; HCO3 ABG 28.5 mEq/l (22.0-26.0); Oxygen Content ABG 14.2 %vol (16.0-22.0); Oxygen Saturation ABG 94.2 % (95.0-100.0); Oxyhemoglobin 93.1 % THb (90.0-100.0); PCO2 ABG 51.1 mmHg (35.0-45.0); PO2 FiO2 Ratio Arterial Blood 2.11 %; Total Hemoglobin 10.8 g/dL (12.0-18.0); pH ABG 7.365 (7.350-7.450)
[2024-09-03 09:13] LABS: Device VENTILATOR; Modified Allen's Test Pass; Site Drawn LEFT RADIAL
[2024-09-03 09:14] LABS: Arterial Blood Gas PEEP 5 cmH2O; Arterial Blood Gas Pressure Support 8 cmH2O; Arterial Blood Gas Vent Mode PRESSURE SUPPORT
--- NOTE | 2024-09-03 09:52 | P.PNNP_ITS ---
Progress Note: A&P Assessment and Plan (1) End stage renal disease: Code(s): N18.6 - End stage renal disease Status: Chronic Assessment and Plan: * HD tomorrow * continue Friday//Friday dialysis schedule while hospitalized * follow electrolytes, volume status, and clearance (2) Acute on chronic respiratory failure with hypoxia and hypercapnia: Code(s): J96.21 - Acute and chronic respiratory failure with hypoxia; J96.22 - Acute and chronic respiratory failure with hypercapnia Status: Acute Assessment and Plan: * due to several issues: * pulmonary edema * possible pneumonia * obesity hypoventilation * chronic respiratory failure secondary to laryngeal cancer status post laryngectomy and laryngeal tube placement * on mechanical ventilation * fluid removal with dry ultrafiltration and dialysis as tolerated by hemodynamics * antibiotic therapy for pneumonia (3) Hypotension: Code(s): I95.9 - Hypotension, unspecified Status: Acute Assessment and Plan: * resolved * noted since AM on 08/28 * worsened by administration scheduled BP medication on 08/28 as well * was asymptomatic * BP medications on hold * was on oral midodrine therapy - on hold currently * due to early sepsis?? * recent CXR with pneumonia * vasopressor therapy as needed - currently off * follow trend of hemodynamics (4) Pneumonia: Code(s): J18.9 - Pneumonia, unspecified organism Status: Acute Assessment and Plan: * as suggested by recent imaging * follow culture data - sputum culture noted * on antibiotic therapy (5) Hypertension: Code(s): I10 - Essential (primary) hypertension Status: Chronic Assessment and Plan: * BP medications on hold due to hypotension * resume as needed * follow trend of hemodynamics (6) Type 2 diabetes mellitus: Code(s): E11.9 - Type 2 diabetes mellitus without complications Status: Chronic Assessment and Plan: * follow accu-cheks * glycemic control per hospitalist Will continue to follow. L Subjective Date/time seen: 09/03/24 09:52 Interval history: Follow-up for end stage renal disease on hemodialysis. Tolerated dialysis treatment yesterday without any issues or problems; just transitioned to trach collar this morning (off ventilator at the time of my visit); no apparent distress noted when seen; hemodynamically stable currently; no other events overnight or earlier this morning. Exam 2 Narrative: General: WD/WN male in NAD; on mechanical ventilation Heart: normal S1 and S2; no rub Lungs: coarse with decreased breath sounds at bases Abdomen: soft, nontender but mild distension, positive bowel sounds Extremities: no cyanosis or clubbing; trace - 1+ edema in UEs and LEs Skin: no nodules Objective Data Vital Signs Vital Signs: Vital Signs Temp Pulse Resp BP Pulse Ox O2 Del Method O2 Flow Rate 09/03/24 09:30 98.1 F 101 H 28 H 151/91 H 98 High Flow Therapy with Tr 20 09/03/24 08:50 09/03/24 08:04 97 19 09/03/24 08:00 09/03/24 08:00 89 09/03/24 08:00 86 24 H 124/67 95 09/03/24 07:54 88 96 Mechanical Ventilation 09/03/24 07:52 90 20 09/03/24 07:28 98.4 F 09/03/24 06:00 98.1 F 81 20 154/73 H 98 09/03/24 06:00 82 09/03/24 05:30 77 100 Mechanical Ventilation 09/03/24 04:14 61 20 98 Mechanical Ventilation 09/03/24 04:00 65 09/03/24 04:00 09/03/24 04:00 98 F 61 20 104/55 L 98 09/03/24 02:20 77 24 H 09/03/24 02:10 77 96 Mechanical Ventilation 09/03/24 02:07 75 24 H 09/03/24 02:00 77 22 H 145/55 H 98 09/03/24 02:00 77 09/03/24 00:00 79 09/03/24 00:00 09/03/24 00:00 98.2 F 80 20 131/71 100 09/03/24 00:00 80 20 100 Mechanical Ventilation 09/02/24 23:06 77 100 Mechanical Ventilation 09/02/24 22:00 98.4 F 100 25 H 110/62 100 09/02/24 22:00 99 26 H 110/62 100 09/02/24 22:00 97 09/02/24 20:32 74 23 H 09/02/24 20:32 74 24 H 96 Mechanical Ventilation 09/02/24 20:22 74 96 Mechanical Ventilation 09/02/24 20:21 78 24 H 09/02/24 20:00 98.6 F 63 20 134/74 100 09/02/24 20:00 66 09/02/24 20:00 09/02/24 18:00 67 09/02/24 18:00 98.4 F 65 22 H 124/77 99 09/02/24 16:55 70 96 Mechanical Ventilation 09/02/24 16:00 67 09/02/24 16:00 09/02/24 16:00 Mechanical Ventilation 09/02/24 16:00 98.0 F 63 21 H 109/74 100 09/02/24 14:30 79 22 H 09/02/24 14:23 79 96 Mechanical Ventilation 09/02/24 14:21 79 23 H 09/02/24 14:00 98.4 F 78 18 122/65 99 09/02/24 14:00 69 09/02/24 12:50 97.8 F 69 18 146/72 H 97 09/02/24 12:36 80 146/72 H 09/02/24 12:30 81 146/75 H 09/02/24 12:15 85 147/82 H 09/02/24 12:00 81 09/02/24 12:00 97.8 F 78 20 152/77 H 100 09/02/24 12:00 09/02/24 12:00 Mechanical Ventilation 09/02/24 12:00 78 152/77 H 09/02/24 11:45 73 139/79 09/02/24 11:30 70 136/70 09/02/24 11:18 77 100 Mechanical Ventilation 09/02/24 11:15 70 134/70 09/02/24 11:00 76 146/74 H 09/02/24 10:45 79 136/76 09/02/24 10:30 73 139/72 Intake/Output Intake/Output: Intake & Output 08/31/24 09/01/24 09/02/24 09/03/24 23:59 23:59 23:59 23:59 Intake Total 746.1 2502.5 1437 857 Output Total 3000 0 3000 Balance -2253.9 2502.5 -1563 857 Meds/Results Medications: Active Medications Generic Name Dose Route Start Last Admin Trade Name Freq PRN Reason Stop Dose Admin Acetaminophen 650 mg 08/27/24 15:58 Acetaminophen 325 Mg Tablet PO Q4H PRN Mild Pain (1-3) or Fever Albuterol/Ipratropium 3 ml 09/02/24 02:00 09/03/24 07:51 Ipratropium 0.5 Mg/Albuterol Sulfate 2.5 Mg Ampul.Neb 3 Ml INHALATION 3 ml Q6HRT ISELA Administration Apixaban 10 mg 09/01/24 10:40 09/03/24 08:39 Apixaban 5 Mg Tablet PO 09/07/24 21:01 10 mg Q12HR ISELA Administration Apixaban 5 mg 09/08/24 09:00 Apixaban 5 Mg Tablet PO Q12HR ISELA Dextrose 12.5 gm 08/27/24 23:31 08/30/24 07:50 Dextrose 50% 25 Gm/50 Ml Syringe IV PUSH 12.5 gm PRN PRN Administration Hypoglycemia Protocol Glucagon 1 mg 08/27/24 23:31 Glucagon For Inj 1 Mg Vial IM PRN PRN Hypoglycemia Protocol Glucose 15 gm 08/27/24 23:31 Glucose Oral Gel 15 Gm Of Glucse In 37.5 Gm Tube PO PRN PRN Hypoglycemia Protocol Dextrose 1,000 mls @ 100 mls/hr 08/27/24 23:31 Dextrose 5% 1,000 Ml IVPB PRN PRN Hypoglycemia Protocol Albumin Human 50 mls @ 999 mls/hr 08/28/24 01:42 08/28/24 12:30 Albutein IVPB 09/27/24 01:41 Infused Q10M PRN Infusion HYPOTENSION Piperacillin Sod/Tazobactam Sod 2.25 gm in 50 mls @ 100 mls/hr 08/30/24 11:00 09/03/24 05:37 Zosyn 2.25 Gm/Ns 50 Ml IVPB 09/08/24 23:59 Infused Q6HR ISELA Infusion Potassium Phosphate 20 mmol/ 256.6667 mls @ 64.167 mls/hr 09/03/24 09:00 09/03/24 08:56 Sodium Chloride IVPB 09/03/24 12:59 64.17 mls/hr ONCE ONE Administration Insulin Aspart 3 - 6 units 09/03/24 12:00 Insulin Aspart (*Bkc) 100 Units/Ml SUB-Q Q6HR [facility] Protocol Levothyroxine Sodium 75 mcg 08/28/24 06:30 09/03/24 05:07 Levothyroxine Sodium 75 Mcg Tablet PO 75 mcg DAILY@0630 ISELA Administration Levothyroxine Sodium 100 mcg 08/28/24 06:30 09/03/24 05:07 Levothyroxine Sodium 100 Mcg Tablet PO 100 mcg DAILY@0630 ISELA Administration Midodrine 10 mg 08/29/24 08:00 09/03/24 08:39 Midodrine Hcl 10 Mg Tablet PO 10 mg TID ISELA Administration Pantoprazole Sodium 40 mg 08/30/24 09:00 09/03/24 08:39 Pantoprazole Sodium Iv 40 Mg Vial IV PUSH 40 mg QAM ISELA Administration Pravastatin Sodium 40 mg 08/28/24 09:00 09/03/24 08:39 Pravastatin Sodium 20 Mg Tablet PO 40 mg DAILY ISELA Administration Sevelamer Carbonate 1.6 gm 08/30/24 13:50 09/03/24 08:38 Sevelamer Carbonate 0.8 Gm Oral Powder Packet FEED TUBE 1.6 gm TIDWM ISELA Administration Sodium Chloride 10 ml 08/29/24 22:00 09/03/24 05:07 Central Line Flush IV PUSH 10 ml Q8HR ISELA Administration Sodium Chloride 20 ml 08/29/24 17:00 08/29/24 23:07 Central Line Flush IV PUSH 10 ml PRN PRN Administration after blood draws Radiology Results: ITS Impressions Abdomen X-Ray 08/30/24 09:26 IMPRESSION: 1: NG tube coiled in the stomach. Venous Doppler Study 08/30/24 10:40 IMPRESSION: 1. Bilateral below the knee deep venous thrombosis in the peroneal veins. Findings were discussed with Annabel Macedo, the nurse caring for the patient, at 10:49 AM. Chest CTA 09/02/24 08:13 Impression: No evidence of pulmonary embolus, aortic dissection, or aortic aneurysm. Moderate right pleural effusion and small left pleural effusion. Bibasilar atelectasis and mild pulmonary edema. Chest X-Ray 09/03/24 06:24 Impression: Moderate pleural effusions with mild pulmonary edema pattern. Stable hyperdense material the left lung base raises the possibility of prior aspiration. Support tubes, as above. Labs Labs: Laboratory Tests 09/03/24 05:11 09/03/24 05:11 Calcium 8.8 Phosphorus 1.7 L Magnesium 2.3 Total Bilirubin 0.8 AST 15 L ALT 10 Alkaline Phosphatase 78 Total Protein 7.0 Albumin 3.6
--- NOTE | 2024-09-03 10:55 | PCNFU ---
Nutrition Follow-Up Complete: Inadequate energy intake related to fluid status as evidenced by need for trophic tube feeding goal: Meet estimated protein energy needs Patient is progressing towards goal. We will continue current goal. Pt current nutrition is Nepro at 40 ml/hr with Prosource BID. Last recorded weight is 103.4 kg up from 102 kg on admit. Bowel Motility: +BM reported / Labs Reviewed: Mg 1.7, BUN 43, Cr 4.23, Hct 32.2, Hgb 9.6 Meds Noted:Synthroid, Protonix Skin: WNL Additional Notes: Patient is current with Trach. Breathing trial today. NGT feedings being tolerated of Nepro at 40 ml/hr with Protein Modular of Prosource BID. Total Nutrition: 1744 kcal/111 gm protein/640 ml water. Flush 30 ml q 4 hours. Agree with diet orders. Monitoring TF tolerance, weights, labs, meds, plan of care Follow up Friday/Friday.
[2024-09-03 11:33] LABS: Glucose Point of Care 114 mg/dl (65-105)
[2024-09-03] MEDS: ACETAMINOPHEN 325 MG TABLET 650 MG PO (13:01)
--- NOTE | 2024-09-03 16:18 | PM.IMPN ---
Progress Note: A&P Assessment and Plan (1) Acute on chronic respiratory failure with hypoxia and hypercapnia: Code(s): J96.21 - Acute and chronic respiratory failure with hypoxia; J96.22 - Acute and chronic respiratory failure with hypercapnia Status: Acute Assessment and Plan: Acute on chronic respiratory failure secondary to pulmonary edema and possible pneumonia, obesity hypoventilation, chronic respiratory failure secondary to laryngeal cancer status post laryngectomy and laryngeal tube placement Patient had laryngeal tube which could be attached to ventilator BiPAP and emergent ET tube was inserted through the laryngeal tube to secure airway and placed on mechanical ventilation. 08/31/2024 laryngeal 2 was switched to cuffed tracheostomy tube by ENT size 8 Neel. Delete that CTA 4 with no evidence of PE aortic dissection or aortic aneurysm. Moderate right pleural effusion and small left pleural effusion bibasilar atelectasis and mild pulmonary edema Wean FiO2 down on PSV trial per ivory polisher He is on empiric antibiotic therapy for pneumonia - see below (2) Hypotension: Code(s): I95.9 - Hypotension, unspecified Status: Acute Assessment and Plan: Hypotension could be secondary to hypoxia and acidosis as blood pressure is now improving after patient has been placed on mechanical ventilation. 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 - Tracheostomy status Status: Acute Assessment and Plan: See above (6) End-stage renal disease on hemodialysis: Code(s): N18.6 - End stage renal disease; Z99.2 - Dependence on renal dialysis Status: Acute Assessment and Plan: On hemodialysis as scheduled (7) Pulmonary edema: Qualifiers: Chronicity: acute Qualified Code(s): J81.0 - Acute pulmonary edema Code(s): J81.1 - Chronic pulmonary edema Status: Acute Assessment and Plan: See above (8) Generalized edema: Code(s): R60.1 - Generalized edema Status: Acute Assessment and Plan: See above (9) Sepsis: Code(s): A41.9 - Sepsis, unspecified organism Status: Acute Assessment and Plan: Resulted from community-acquired pneumonia considering lung infiltrates on chest x-ray sputum culture is growing Pseudomonas which is pansensitive MRSA screen was negative there is a possibility of him aspirating since he has been eating Continue Zosyn (10) DVT (deep venous thrombosis): Code(s): I82.409 - Acute embolism and thrombosis of unspecified deep veins of unspecified lower extremity Status: Acute Assessment and Plan: Lower extremity Dopplers done on 08/30 showed Bilateral below the knee deep venous thrombosis in the peroneal veins. CTA with no PE aortic dissection or AA aortic aneurysm 09/02 Patient is on anticoagulation Echocardiogram showed 1. Left ventricular chamber dimension is normal. 2. Left ventricular systolic function is normal, estimated at 50-55%. 3. There is mildly increased left ventricular wall thickness. 4. The left ventricular diastolic function is grade I diastolic dysfunction. 5. Right ventricular chamber dimension is moderately enlarged. 6. Right ventricular systolic function is reduced. 7. Right atrial chamber dimension is moderately enlarged. 8. There is mild mitral valve regurgitation. 9. There is moderate tricuspid valve regurgitation. 10. Estimated pulmonary arterial systolic pressure is 57 mmHg. 11. Dilated inferior vena cava with no collapse upon inspiration consistent with elevated right atrial pressure, 15 mmHg. Plan DVT prophylaxis -Eliquis Stress ulcer prophylaxis -PPI Nutrition - continue tube feed Code Status - Full Code Subjective Date/time seen: 09/03/24 16:18 Interval history: Patient placed on Airvo. No other events reported. Discussed with nursing staff. Chart reviewed. Review of Systems Review of Systems: All systems reviewed & are unremarkable except as noted in HPI and below Exam Narrative: General: Pt is ill-appearing gentleman who appears older than his age. He is awake follows command and is in no distress Lungs/Chest: Decreased bilateral breath sounds overall occasional crackles and decreased breath sound at bases, Cardiac: RRR. Normal S1 S2. No murmurs Circulation: Feet are well Abdomen: Decreased bowel sounds. Morbid Obese. Soft. NT. ND. Extremities: Chronic venous stasis present patient is missing his right great toe no edema : Hay in place Neurologic: Awake follows commands with all 4 extremities PERRL Objective Data Vital Signs Vital Signs: Vital Signs - 24 hr 09/02/24 16:55 09/02/24 18:00 09/02/24 18:00 Temperature 98.4 F Pulse Rate 70 65 67 Respiratory Rate 22 H Blood Pressure 124/77 Pulse Oximetry 96 99 Oxygen Delivery Mechanical Ventilation Oxygen Flow Rate Fraction of Inspired Oxygen 35 09/02/24 20:00 09/02/24 20:00 09/02/24 20:00 Temperature 98.6 F Pulse Rate 66 63 Respiratory Rate 20 Blood Pressure 134/74 Pulse Oximetry 100 Oxygen Delivery Oxygen Flow Rate Fraction of Inspired Oxygen 35 09/02/24 20:21 09/02/24 20:22 09/02/24 20:32 Temperature Pulse Rate 78 74 74 Respiratory Rate 24 H 24 H Blood Pressure Pulse Oximetry 96 96 Oxygen Delivery Mechanical Ventilation Mechanical Ventilation Oxygen Flow Rate Fraction of Inspired Oxygen 35 35 09/02/24 20:32 09/02/24 22:00 09/02/24 22:00 Temperature Pulse Rate 74 97 99 Respiratory Rate 23 H 26 H Blood Pressure 110/62 Pulse Oximetry 100 Oxygen Delivery Oxygen Flow Rate Fraction of Inspired Oxygen 09/02/24 22:00 09/02/24 23:06 09/03/24 00:00 Temperature 98.4 F Pulse Rate 100 77 80 Respiratory Rate 25 H 20 Blood Pressure 110/62 Pulse Oximetry 100 100 100 Oxygen Delivery Mechanical Ventilation Mechanical Ventilation Oxygen Flow Rate Fraction of Inspired Oxygen 35 35 09/03/24 00:00 09/03/24 00:00 09/03/24 00:00 Temperature 98.2 F Pulse Rate 80 79 Respiratory Rate 20 Blood Pressure 131/71 Pulse Oximetry 100 Oxygen Delivery Oxygen Flow Rate Fraction of Inspired Oxygen 35 09/03/24 02:00 09/03/24 02:00 09/03/24 02:07 Temperature Pulse Rate 77 77 75 Respiratory Rate 22 H 24 H Blood Pressure 145/55 H Pulse Oximetry 98 Oxygen Delivery Oxygen Flow Rate Fraction of Inspired Oxygen 09/03/24 02:10 09/03/24 02:20 09/03/24 04:00 Temperature 98 F Pulse Rate 77 77 61 Respiratory Rate 24 H 20 Blood Pressure 104/55 L Pulse Oximetry 96 98 Oxygen Delivery Mechanical Ventilation Oxygen Flow Rate Fraction of Inspired Oxygen 35 09/03/24 04:00 09/03/24 04:00 09/03/24 04:14 Temperature Pulse Rate 65 61 Respiratory Rate 20 Blood Pressure Pulse Oximetry 98 Oxygen Delivery Mechanical Ventilation Oxygen Flow Rate Fraction of Inspired Oxygen 35 35 09/03/24 05:30 09/03/24 06:00 09/03/24 06:00 Temperature 98.1 F Pulse Rate 77 82 81 Respiratory Rate 20 Blood Pressure 154/73 H Pulse Oximetry 100 98 Oxygen Delivery Mechanical Ventilation Oxygen Flow Rate Fraction of Inspired Oxygen 35 09/03/24 07:28 09/03/24 07:52 09/03/24 07:54 Temperature 98.4 F Pulse Rate 90 88 Respiratory Rate 20 Blood Pressure Pulse Oximetry 96 Oxygen Delivery Mechanical Ventilation Oxygen Flow Rate Fraction of Inspired Oxygen 35 09/03/24 08:00 09/03/24 08:00 09/03/24 08:00 Temperature Pulse Rate 86 89 Respiratory Rate 24 H Blood Pressure 124/67 Pulse Oximetry 95 Oxygen Delivery Oxygen Flow Rate Fraction of Inspired Oxygen 35 09/03/24 08:00 09/03/24 08:04 09/03/24 08:50 Temperature Pulse Rate 97 Respiratory Rate 19 Blood Pressure Pulse Oximetry 95 Oxygen Delivery Mechanical Ventilation Oxygen Flow Rate Fraction of Inspired Oxygen 45 35 09/03/24 09:30 09/03/24 10:00 09/03/24 10:00 Temperature 98.1 F Pulse Rate 101 H 103 H 103 H Respiratory Rate 28 H 38 H Blood Pressure 151/91 H Pulse Oximetry 98 90 Oxygen Delivery High Flow Therapy with Tr Oxygen Flow Rate 20 Fraction of Inspired Oxygen 45 09/03/24 11:13 09/03/24 11:36 09/03/24 12:00 Temperature 98.2 F Pulse Rate 94 107 H Respiratory Rate 15 30 H Blood Pressure 143/86 H Pulse Oximetry 92 88 L Oxygen Delivery High Flow Therapy with Tr Oxygen Flow Rate 20 Fraction of Inspired Oxygen 45 09/03/24 12:00 09/03/24 12:00 09/03/24 14:00 Temperature Pulse Rate 110 H 91 Respiratory Rate Blood Pressure Pulse Oximetry 90 Oxygen Delivery High Flow Therapy with Tr Oxygen Flow Rate 20 Fraction of Inspired Oxygen 45 09/03/24 14:00 09/03/24 14:07 09/03/24 14:14 Temperature Pulse Rate 91 95 94 Respiratory Rate 24 H 24 H 21 H Blood Pressure 106/67 Pulse Oximetry 95 Oxygen Delivery Oxygen Flow Rate Fraction of Inspired Oxygen Intake/Output Intake/Output: Intake & Output 08/31/24 09/01/24 09/02/24 09/03/24 23:59 23:59 23:59 23:59 Intake Total 746.1 2502.5 1437 907 Output Total 3000 0 3000 Balance -2253.9 2502.5 -1563 907 Meds/Results Medications: Active Medications Generic Name Dose Route Start Last Admin Trade Name Freq PRN Reason Stop Dose Admin Acetaminophen 650 mg 08/27/24 15:58 09/03/24 13:01 Acetaminophen 325 Mg Tablet PO 650 mg Q4H PRN Administration Mild Pain (1-3) or Fever Albuterol/Ipratropium 3 ml 09/02/24 02:00 09/03/24 14:05 Ipratropium 0.5 Mg/Albuterol Sulfate 2.5 Mg Ampul.Neb 3 Ml INHALATION 3 ml Q6HRT ISELA Administration Apixaban 10 mg 09/01/24 10:40 09/03/24 08:39 Apixaban 5 Mg Tablet PO 09/07/24 21:01 10 mg Q12HR ISELA Administration Apixaban 5 mg 09/08/24 09:00 Apixaban 5 Mg Tablet PO Q12HR ISELA Dextrose 12.5 gm 08/27/24 23:31 08/30/24 07:50 Dextrose 50% 25 Gm/50 Ml Syringe IV PUSH 12.5 gm PRN PRN Administration Hypoglycemia Protocol Glucagon 1 mg 08/27/24 23:31 Glucagon For Inj 1 Mg Vial IM PRN PRN Hypoglycemia Protocol Glucose 15 gm 08/27/24 23:31 Glucose Oral Gel 15 Gm Of Glucse In 37.5 Gm Tube PO PRN PRN Hypoglycemia Protocol Dextrose 1,000 mls @ 100 mls/hr 08/27/24 23:31 Dextrose 5% 1,000 Ml IVPB PRN PRN Hypoglycemia Protocol Albumin Human 50 mls @ 999 mls/hr 08/28/24 01:42 08/28/24 12:30 Albutein IVPB 09/27/24 01:41 Infused Q10M PRN Infusion HYPOTENSION Piperacillin Sod/Tazobactam Sod 2.25 gm in 50 mls @ 100 mls/hr 08/30/24 11:00 09/03/24 13:30 Zosyn 2.25 Gm/Ns 50 Ml IVPB 09/08/24 23:59 Infused Q6HR ISELA Infusion Insulin Aspart 3 - 6 units 09/03/24 12:00 09/03/24 11:44 Insulin Aspart (*Bkc) 100 Units/Ml SUB-Q Not Given Q6HR [facility] Protocol Levothyroxine Sodium 75 mcg 08/28/24 06:30 09/03/24 05:07 Levothyroxine Sodium 75 Mcg Tablet PO 75 mcg DAILY@0630 ISELA Administration Levothyroxine Sodium 100 mcg 08/28/24 06:30 09/03/24 05:07 Levothyroxine Sodium 100 Mcg Tablet PO 100 mcg DAILY@0630 ISELA Administration Midodrine 10 mg 08/29/24 08:00 09/03/24 14:17 Midodrine Hcl 10 Mg Tablet PO 10 mg TID ISELA Administration Pantoprazole Sodium 40 mg 08/30/24 09:00 09/03/24 08:39 Pantoprazole Sodium Iv 40 Mg Vial IV PUSH 40 mg QAM ISELA Administration Pravastatin Sodium 40 mg 08/28/24 09:00 09/03/24 08:39 Pravastatin Sodium 20 Mg Tablet PO 40 mg DAILY ISELA Administration Sevelamer Carbonate 1.6 gm 08/30/24 13:50 09/03/24 13:01 Sevelamer Carbonate 0.8 Gm Oral Powder Packet FEED TUBE 1.6 gm TIDWM ISELA Administration Radiology Results: ITS Impressions Abdomen X-Ray 08/30/24 09:26 IMPRESSION: 1: NG tube coiled in the stomach. Venous Doppler Study 08/30/24 10:40 IMPRESSION: 1. Bilateral below the knee deep venous thrombosis in the peroneal veins. Findings were discussed with Annabel Macedo, the nurse caring for the patient, at 10:49 AM. Chest CTA 09/02/24 08:13 Impression: No evidence of pulmonary embolus, aortic dissection, or aortic aneurysm. Moderate right pleural effusion and small left pleural effusion. Bibasilar atelectasis and mild pulmonary edema. Chest X-Ray 09/03/24 06:24 Impression: Moderate pleural effusions with mild pulmonary edema pattern. Stable hyperdense material the left lung base raises the possibility of prior aspiration. Support tubes, as above. Labs Labs: Laboratory Results - last 24 hr 09/02/24 09/02/24 09/03/24 19:28 23:13 05:11 WBC 5.4 RBC 2.87 L Hgb 9.6 L Hct 32.2 L MCV 112.2 H MCH 33.4 MCHC 29.8 L RDW 14.8 H Plt Count 113 L MPV 11.6 H Immature Gran % (Auto) 0.9 H Neut % (Auto) 74.5 H Lymph % (Auto) 10.7 L [place] % (Auto) 11.0 H Eos % (Auto) 2.0 Baso % (Auto) 0.9 Lymph # (Auto) 0.58 L [place] # (Auto) 0.6 Eos # (Auto) 0.1 Baso # (Auto) 0.1 Abs Immat Gran (auto) 0.05 H Absolute Neuts (auto) 4.0 Absolute Nucleated RBC 0.000 Band Neutrophils % 0 Nucleated RBC % 0.0 Platelet Estimate Adequate % Immature Plt Fraction 4.5 Hypochromasia 1+ Anisocytosis 1+ Ovalocytes 1+ Schistocytes Rare Puncture Site ABG pH ABG pCO2 ABG pO2 ABG PO2/FiO2 Ratio ABG HCO3 ABG O2 Saturation ABG O2 Content ABG Base Excess A-a Gradient Oxyhemoglobin Carboxyhemoglobin Methemoglobin Reduced Hemoglobin Total Hemoglobin O2 Delivery Device O2 Liters/Min Minute Volume Vent Rate Vent Mode FiO2 Tidal Volume PEEP Peak Inspir Pressure Pressure Support Sodium 138 Potassium 3.5 Chloride 99 Carbon Dioxide 32 H Anion Gap 7 BUN 34 H D Creatinine 4.23 H Estim Creat Clear Calc 20 Estimated GFR 14 L Glucose 99 POC Capillary Glucose 100 93 Calcium 8.8 Phosphorus 1.7 L Magnesium 2.3 Total Bilirubin 0.8 AST 15 L ALT 10 Alkaline Phosphatase 78 Total Protein 7.0 Albumin 3.6 09/03/24 09/03/24 09/03/24 05:21 07:18 09:06 WBC RBC Hgb Hct MCV MCH MCHC RDW Plt Count MPV Immature Gran % (Auto) Neut % (Auto) Lymph % (Auto) [place] % (Auto) Eos % (Auto) Baso % (Auto) Lymph # (Auto) [place] # (Auto) Eos # (Auto) Baso # (Auto) Abs Immat Gran (auto) Absolute Neuts (auto) Absolute Nucleated RBC Band Neutrophils % Nucleated RBC % Platelet Estimate % Immature Plt Fraction Hypochromasia Anisocytosis Ovalocytes Schistocytes Puncture Site Left radial Left radial ABG pH 7.418 7.365 ABG pCO2 44.0 51.1 H ABG pO2 75.2 L 74.0 L ABG PO2/FiO2 Ratio 2.15 2.11 ABG HCO3 27.8 H 28.5 H ABG O2 Saturation 95.3 94.2 L ABG O2 Content 14.1 L 14.2 L ABG Base Excess 2.9 2.5 A-a Gradient 123.2 116.1 Oxyhemoglobin 94.1 93.1 Carboxyhemoglobin 0.9 Methemoglobin 0.3 Reduced Hemoglobin 4.7 Total Hemoglobin 10.6 L 10.8 L O2 Delivery Device Ventilator Ventilator O2 Liters/Min Not Reportable Not Reportable Minute Volume Not Reportable Not Reportable Vent Rate 20 Not Reportable Vent Mode Cmv Pressure support FiO2 35 35 Tidal Volume 380 Not Reportable PEEP 8 5 Peak Inspir Pressure Not Reportable Not Reportable Pressure Support Not Reportable 8 Sodium Potassium Chloride Carbon Dioxide Anion Gap BUN Creatinine Estim Creat Clear Calc Estimated GFR Glucose POC Capillary Glucose 114 H Calcium Phosphorus Magnesium Total Bilirubin AST ALT Alkaline Phosphatase Total Protein Albumin 09/03/24 11:18 WBC RBC Hgb Hct MCV MCH MCHC RDW Plt Count MPV Immature Gran % (Auto) Neut % (Auto) Lymph % (Auto) [place] % (Auto) Eos % (Auto) Baso % (Auto) Lymph # (Auto) [place] # (Auto) Eos # (Auto) Baso # (Auto) Abs Immat Gran (auto) Absolute Neuts (auto) Absolute Nucleated RBC Band Neutrophils % Nucleated RBC % Platelet Estimate % Immature Plt Fraction Hypochromasia Anisocytosis Ovalocytes Schistocytes Puncture Site ABG pH ABG pCO2 ABG pO2 ABG PO2/FiO2 Ratio ABG HCO3 ABG O2 Saturation ABG O2 Content ABG Base Excess A-a Gradient Oxyhemoglobin Carboxyhemoglobin Methemoglobin Reduced Hemoglobin Total Hemoglobin O2 Delivery Device O2 Liters/Min Minute Volume Vent Rate Vent Mode FiO2 Tidal Volume PEEP Peak Inspir Pressure Pressure Support Sodium Potassium Chloride Carbon Dioxide Anion Gap BUN Creatinine Estim Creat Clear Calc Estimated GFR Glucose POC Capillary Glucose 114 H Calcium Phosphorus Magnesium Total Bilirubin AST ALT Alkaline Phosphatase Total Protein Albumin
[2024-09-03 18:04] LABS: Glucose Point of Care 99 mg/dl (65-105)
[2024-09-04] VITALS (42 sets, daily range): BP systolic 83–161; BP diastolic 62–79; PULSE 72–91; RESP 16–26; TEMP 36.3–37; O2SAT 90–100
[2024-09-04 00:49] LABS: Glucose Point of Care 91 mg/dl (65-105)
[2024-09-04] MEDS: IPRATROPIUM 0.5 MG/ALBUTEROL SULFATE 2.5 MG AMPUL.NEB 3 ML INHALATION ×4 (02:30→20:17)
[2024-09-04 03:48] LABS: Basophils Absolute Auto 0.1 K/mm3 (0.0-0.1); Basophils Percent Auto 0.8 % (0.2-1.2); Eosinophils Absolute Auto 0.2 K/mm3 (0-0.3); Eosinophils Percent Auto 2.9 % (0-4.4); Hematocrit 33.3 % (42.0-52.0); Hemoglobin 9.9 g/dL (14.0-18.0); Immature Granulocyte Absolute 0.05 K/mm3 (0.00-0.031); Immature Granulocyte Percent A 0.8 % (0-0.5); Lymphocytes Absolute Auto 0.68 K/mm3 (0.9-3.2); Mean Corpuscular HGB Conc 29.7 g/dl (32-36); Mean Corpuscular Hemoglobin 33.4 pg (26-34); Mean Corpuscular Volume 112.5 fl (80-100); Mean Platelet Volume 10.7 fl (7.4-10.4); Monocytes Absolute Auto 0.7 K/mm3 (0.1-0.6); Monocytes Percent Auto 11.5 % (2.6-8.5); Neutrophils Absolute Auto 4.5 K/mm3 (1.3-6.7); Platelet Count Result 110 k/mm3 (150-375); Red Blood Count 2.96 M/mm3 (4.6-6.20); White Blood Count 6.2 K/mm3 (4.5-10.0)
[2024-09-04 03:59] LABS: Alanine Aminotransferase 11 U/L (6-50); Albumin Level 3.8 g/dL (3.5-5.1); Alkaline Phosphatase 66 U/L (38-126); Anion Gap 12 mmol/L (4-12); Aspartate Amino Transferase 16 U/L (17-59); Bilirubin,Total 0.7 mg/dL (0.2-1.3); Blood Urea Nitrogen 48 mg/dL (9-20); Calcium 8.7 mg/dL (8.4-10.2); Carbon Dioxide 30 mmol/L (22-30); Chloride 97 mmol/L (98-107); Estimated CRCL calculation 18 ml/min; Estimated Glomerular Filt Rate 12; Glucose 81 mg/dL (65-110); Magnesium 2.4 mg/dL (1.6-2.3); Phosphorus 3.3 mg/dL (2.5-4.5); Potassium 3.9 mmol/L (3.4-5.0); Sodium 139 mmol/L (137-145)
[2024-09-04] MEDS: PIPERACILLIN/TAZ 2.25G/NS 50ML 2.25 GM/50 ML BAG IVPB ×4 (06:25→21:29)
--- NOTE | 2024-09-04 08:24 | WPDINTPN ---
Progress Note: A&P Assessment and Plan (1) Acute on chronic respiratory failure with hypoxia and hypercapnia: Code(s): J96.21 - Acute and chronic respiratory failure with hypoxia; J96.22 - Acute and chronic respiratory failure with hypercapnia Status: Acute Assessment and Plan: Acute on chronic respiratory failure secondary to pulmonary edema and possible pneumonia, obesity hypoventilation, chronic respiratory failure secondary to laryngeal cancer status post laryngectomy and laryngeal tube placement 08/29 His laryngeal tube cannot be attached to ventilator or BiPAP. An emergent ET tube was inserted through the laryngeal tube to secure airway and attached to mechanical ventilation Due to small size of airway we are having high pressures and gradually increasing mechanical ventilation 08/31 laryngeal tube was switched to a cuffed tracheostomy tube by ENT physician. Size 8 Shiley ABG reviewed CTA chest09/02 No evidence of pulmonary embolus, aortic dissection, or aortic aneurysm. Moderate right pleural effusion and small left pleural effusion. Bibasilar atelectasis and mild pulmonary edema. Patient was on Airvo yesterday during the day and was a PSV overnight. I will switch him back to Airvo today and wean oxygen Continue fluid removed with dialysis He is on empiric antibiotic therapy for pneumonia - see below (2) Hypotension: Code(s): I95.9 - Hypotension, unspecified Status: Acute Assessment and Plan: 1 admission to ICU patient was hypotensive and has been started on Levophed. Patient does have history of hypertension and was on antihypertensive medications. Hypotension could be secondary to hypoxia and acidosis as blood pressure is now improving after patient has been placed on mechanical ventilation. Since he is already volume overloaded he has been started on Levophed to maintain mean arterial pressure to be able to dialyze patient There is also a possibility of sepsis although patient has been afebrile with normal WBC count. 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 - Tracheostomy status Status: Acute Assessment and Plan: See above (6) End-stage renal disease on hemodialysis: Code(s): N18.6 - End stage renal disease; Z99.2 - Dependence on renal dialysis Status: Acute Assessment and Plan: Patient was dialyzed yesterday and will be dialyzed again tomorrow with goal to try to remove fluid (7) Pulmonary edema: Qualifiers: Chronicity: acute Qualified Code(s): J81.0 - Acute pulmonary edema Code(s): J81.1 - Chronic pulmonary edema Status: Acute Assessment and Plan: See above (8) Generalized edema: Code(s): R60.1 - Generalized edema Status: Acute Assessment and Plan: See above (9) Sepsis: Code(s): A41.9 - Sepsis, unspecified organism Status: Acute Assessment and Plan: Although patient is afebrile and has had normal WBC. He was started on antibiotics for community-acquired pneumonia considering lung infiltrates on chest x-ray Pneumonia appears to be less likely from clinical picture. His procalcitonin level was low. He sputum culture is growing Pseudomonas which is pansensitive MRSA screen was negative there is a possibility of him aspirating since he has been eating Continue Zosyn for course (10) DVT (deep venous thrombosis): Code(s): I82.409 - Acute embolism and thrombosis of unspecified deep veins of unspecified lower extremity Status: Acute Assessment and Plan: Lower extremity Dopplers done on 08/30 showed Bilateral below the knee deep venous thrombosis in the peroneal veins. Findings were discussed with Annabel Macedo, the nurse caring for the patient, at 10:49 AM. Patient is bedridden and ventilator dependent and high risk of further worsening of DVT. Patient has been started on heparin infusion and has been tolerating. I do not anticipate any procedures at this time and side will start him on Eliquis A CTA of the chest was not done imaging to rule out PE as when I saw the patient patient was already getting dialyzed. It will also not exchange floor manager at this point as patient is already on anticoagulation. Patient is getting CTA today and will get dialyzed after that Continue Eliquis Echo Summary 1. Left ventricular chamber dimension is normal. 2. Left ventricular systolic function is normal, estimated at 50-55%. 3. There is mildly increased left ventricular wall thickness. 4. The left ventricular diastolic function is grade I diastolic dysfunction. 5. Right ventricular chamber dimension is moderately enlarged. 6. Right ventricular systolic function is reduced. 7. Right atrial chamber dimension is moderately enlarged. 8. There is mild mitral valve regurgitation. 9. There is moderate tricuspid valve regurgitation. 10. Estimated pulmonary arterial systolic pressure is 57 mmHg. 11. Dilated inferior vena cava with no collapse upon inspiration consistent with elevated right atrial pressure, 15 mmHg. Plan DVT prophylaxis -Eliquis Stress ulcer prophylaxis -PPI Nutrition -speech therapy consultation for swallow evaluation Code Status - Full Code Consult PT OT Up in chair Total Critical Care Time - 30 minutes Due to a high probability of clinically significant, life threatening deterioration, the patient required my highest level of preparedness to intervene emergently and I personally spent this critical care time directly and personally managing the patient. This critical care time included obtaining a history; examining the patient; pulse oximetry; ordering and review of studies; arranging urgent treatment with development of a management plan; evaluation of patient's response to treatment; frequent reassessment; and discussions with other providers. It was exclusive of separately billable procedures and treating other patients and teaching time. Please see Assessment and Plan section and the rest of the note for further information on patient assessment and treatment Subjective Date/time seen: 09/04/24 Patient tolerated Airvo during the day yesterday and was on pressure support last night. He pulled out his NG tube and refused for it to be inserted he states he would like to eat. He denies any other complaint. Patient denies fever, chest pain, shortness of breath, cough, nausea vomiting, abdominal pain,, diarrhea, headache or constipation. All other systems were reviewed and were negative. Afebrile. Patient had a bowel movement. Central venous catheter was removed. Patient has had in the chair yesterday. Review of Systems Review of Systems: ROS unobtainable: Yes unobtainable due to endotracheal tube Exam Narrative: General: Pt is ill-appearing gentleman who appears older than his age. He is awake follows command and is in no distress Lungs/Chest: Decreased bilateral breath sounds overall occasional crackles and decreased breath sound at bases, Cardiac: RRR. Normal S1 S2. No murmurs Circulation: Feet are well Abdomen: Decreased bowel sounds. Morbid Obese. Soft. NT. ND. 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 : Hay in place Neurologic: Awake follows commands with all 4 extremities PERRL Objective Data Vital Signs Vital Signs: Vital Signs - 24 hr 09/03/24 08:50 09/03/24 09:30 09/03/24 10:00 Temperature 36.7 C Pulse Rate 101 H 103 H Respiratory Rate 28 H 38 H Blood Pressure 151/91 H Pulse Oximetry 98 90 Oxygen Delivery High Flow Therapy with Tr Oxygen Flow Rate 20 Fraction of Inspired Oxygen 35 45 09/03/24 10:00 09/03/24 11:13 09/03/24 11:36 Temperature 36.8 C Pulse Rate 103 H 94 Respiratory Rate 15 Blood Pressure Pulse Oximetry 92 Oxygen Delivery High Flow Therapy with Tr Oxygen Flow Rate 20 Fraction of Inspired Oxygen 45 09/03/24 12:00 09/03/24 12:00 09/03/24 12:00 Temperature Pulse Rate 107 H 110 H Respiratory Rate 30 H Blood Pressure 143/86 H Pulse Oximetry 88 L 90 Oxygen Delivery High Flow Therapy with Tr Oxygen Flow Rate 20 Fraction of Inspired Oxygen 45 09/03/24 14:00 09/03/24 14:00 09/03/24 14:07 Temperature Pulse Rate 91 91 95 Respiratory Rate 24 H 24 H Blood Pressure 106/67 Pulse Oximetry 95 Oxygen Delivery Oxygen Flow Rate Fraction of Inspired Oxygen 09/03/24 14:14 09/03/24 16:00 09/03/24 16:00 Temperature Pulse Rate 94 101 H Respiratory Rate 21 H Blood Pressure Pulse Oximetry 99 Oxygen Delivery High Flow Therapy with Tr Oxygen Flow Rate 20 Fraction of Inspired Oxygen 45 09/03/24 16:00 09/03/24 18:00 09/03/24 18:00 Temperature 36.7 C 36.8 C Pulse Rate 89 85 86 Respiratory Rate 22 H 20 Blood Pressure 121/70 128/63 Pulse Oximetry 99 100 Oxygen Delivery Oxygen Flow Rate Fraction of Inspired Oxygen 09/03/24 18:15 09/03/24 20:00 09/03/24 20:00 Temperature 36.8 C Pulse Rate 98 88 89 Respiratory Rate 20 22 H Blood Pressure 146/66 H Pulse Oximetry 94 99 Oxygen Delivery High Flow Therapy with Tr Oxygen Flow Rate 20 Fraction of Inspired Oxygen 45 09/03/24 20:00 09/03/24 20:36 09/03/24 20:38 Temperature Pulse Rate 87 Respiratory Rate 22 H Blood Pressure Pulse Oximetry 100 97 Oxygen Delivery High Flow Therapy with Tr High Flow Therapy with Tr Oxygen Flow Rate 20 20 Fraction of Inspired Oxygen 45 45 09/03/24 20:48 09/03/24 22:00 09/03/24 22:00 Temperature Pulse Rate 89 99 99 Respiratory Rate 22 H 25 H Blood Pressure 144/83 H Pulse Oximetry 100 Oxygen Delivery Oxygen Flow Rate Fraction of Inspired Oxygen 09/04/24 00:00 09/04/24 00:00 09/04/24 00:00 Temperature 36.8 C Pulse Rate 81 82 Respiratory Rate 18 Blood Pressure 150/79 H Pulse Oximetry 100 98 Oxygen Delivery High Flow Therapy with Tr Oxygen Flow Rate 20 Fraction of Inspired Oxygen 45 09/04/24 02:00 09/04/24 02:00 09/04/24 02:32 Temperature Pulse Rate 78 78 81 Respiratory Rate 17 23 H Blood Pressure 136/69 Pulse Oximetry 98 Oxygen Delivery Oxygen Flow Rate Fraction of Inspired Oxygen 09/04/24 02:36 09/04/24 04:00 09/04/24 04:00 Temperature Pulse Rate 81 Respiratory Rate Blood Pressure Pulse Oximetry 96 93 Oxygen Delivery Mechanical Ventilation CPAP Oxygen Flow Rate Fraction of Inspired Oxygen 35 35 35 09/04/24 04:00 09/04/24 04:00 09/04/24 05:49 Temperature 36.6 C Pulse Rate 76 79 83 Respiratory Rate 17 Blood Pressure 144/71 H Pulse Oximetry 90 92 Oxygen Delivery Mechanical Ventilation Oxygen Flow Rate Fraction of Inspired Oxygen 35 09/04/24 05:54 09/04/24 06:00 09/04/24 06:00 Temperature Pulse Rate 84 78 77 Respiratory Rate 23 H 18 Blood Pressure 161/69 H Pulse Oximetry 97 Oxygen Delivery Oxygen Flow Rate Fraction of Inspired Oxygen 09/04/24 08:07 09/04/24 08:08 09/04/24 08:19 Temperature Pulse Rate 81 81 81 Respiratory Rate 16 18 16 Blood Pressure Pulse Oximetry 96 Oxygen Delivery High Flow Therapy with Tr Oxygen Flow Rate 20 Fraction of Inspired Oxygen 45 Intake/Output Intake/Output: Intake & Output 09/01/24 09/02/24 09/03/24 09/04/24 23:59 23:59 23:59 23:59 Intake Total 2502.5 1437 1941 426 Output Total 0 3000 Balance 2502.5 -1563 1941 426 Meds/Results Medications: Active Medications Generic Name Dose Route Start Last Admin Trade Name Freq PRN Reason Stop Dose Admin Acetaminophen 650 mg 08/27/24 15:58 09/03/24 13:01 Acetaminophen 325 Mg Tablet PO 650 mg Q4H PRN Administration Mild Pain (1-3) or Fever Albuterol/Ipratropium 3 ml 09/02/24 02:00 09/04/24 08:05 Ipratropium 0.5 Mg/Albuterol Sulfate 2.5 Mg Ampul.Neb 3 Ml INHALATION 3 ml Q6HRT ISELA Administration Apixaban 10 mg 09/01/24 10:40 09/03/24 20:53 Apixaban 5 Mg Tablet PO 09/07/24 21:01 10 mg Q12HR ISELA Administration Apixaban 5 mg 09/08/24 09:00 Apixaban 5 Mg Tablet PO Q12HR ISELA Dextrose 12.5 gm 08/27/24 23:31 08/30/24 07:50 Dextrose 50% 25 Gm/50 Ml Syringe IV PUSH 12.5 gm PRN PRN Administration Hypoglycemia Protocol Epoetin Shawn-epbx 10,000 units 09/04/24 18:33 Epoetin Shawn-Epbx 10,000 Units/Ml Vial IV PUSH 09/04/24 18:34 ONCE ONE Glucagon 1 mg 08/27/24 23:31 Glucagon For Inj 1 Mg Vial IM PRN PRN Hypoglycemia Protocol Glucose 15 gm 08/27/24 23:31 Glucose Oral Gel 15 Gm Of Glucse In 37.5 Gm Tube PO PRN PRN Hypoglycemia Protocol Dextrose 1,000 mls @ 100 mls/hr 08/27/24 23:31 Dextrose 5% 1,000 Ml IVPB PRN PRN Hypoglycemia Protocol Albumin Human 50 mls @ 999 mls/hr 08/28/24 01:42 08/28/24 12:30 Albutein IVPB 09/27/24 01:41 Infused Q10M PRN Infusion HYPOTENSION Piperacillin Sod/Tazobactam Sod 2.25 gm in 50 mls @ 100 mls/hr 08/30/24 11:00 09/04/24 06:55 Zosyn 2.25 Gm/Ns 50 Ml IVPB 09/08/24 23:59 Infused Q6HR ISELA Infusion Insulin Aspart 3 - 6 units 09/03/24 12:00 09/04/24 06:00 Insulin Aspart (*Bkc) 100 Units/Ml SUB-Q Not Given Q6HR [facility] Protocol Levothyroxine Sodium 75 mcg 08/28/24 06:30 09/04/24 06:23 Levothyroxine Sodium 75 Mcg Tablet PO Not Given DAILY@0630 [facility] Levothyroxine Sodium 100 mcg 08/28/24 06:30 09/04/24 06:24 Levothyroxine Sodium 100 Mcg Tablet PO Not Given DAILY@0630 [facility] Midodrine 10 mg 08/29/24 08:00 09/03/24 17:26 Midodrine Hcl 10 Mg Tablet PO 10 mg TID ISELA Administration Pantoprazole Sodium 40 mg 08/30/24 09:00 09/03/24 08:39 Pantoprazole Sodium Iv 40 Mg Vial IV PUSH 40 mg QAM ISELA Administration Pravastatin Sodium 40 mg 08/28/24 09:00 09/03/24 08:39 Pravastatin Sodium 20 Mg Tablet PO 40 mg DAILY ISELA Administration Sevelamer Carbonate 1.6 gm 08/30/24 13:50 09/03/24 17:26 Sevelamer Carbonate 0.8 Gm Oral Powder Packet FEED TUBE 1.6 gm TIDWM ISELA Administration Radiology Results: ITS Impressions Abdomen X-Ray 08/30/24 09:26 IMPRESSION: 1: NG tube coiled in the stomach. Venous Doppler Study 08/30/24 10:40 IMPRESSION: 1. Bilateral below the knee deep venous thrombosis in the peroneal veins. Findings were discussed with Annabel Macedo, the nurse caring for the patient, at 10:49 AM. Chest CTA 09/02/24 08:13 Impression: No evidence of pulmonary embolus, aortic dissection, or aortic aneurysm. Moderate right pleural effusion and small left pleural effusion. Bibasilar atelectasis and mild pulmonary edema. Chest X-Ray 09/04/24 06:49 IMPRESSION: 1. Likely congestive heart failure with cardiomegaly and increasing mild pulmonary edema. 2. Interval decrease in now small right and small to moderate-sized left pleural effusions with associated bibasilar atelectasis and/or pneumonia. Labs Labs: Laboratory Results - last 24 hr 09/03/24 09/03/24 09/03/24 09:06 11:18 18:00 WBC RBC Hgb Hct MCV MCH MCHC RDW Plt Count MPV Immature Gran % (Auto) Neut % (Auto) Lymph % (Auto) [place] % (Auto) Eos % (Auto) Baso % (Auto) Lymph # (Auto) [place] # (Auto) Eos # (Auto) Baso # (Auto) Abs Immat Gran (auto) Absolute Neuts (auto) Absolute Nucleated RBC Nucleated RBC % Puncture Site Left radial ABG pH 7.365 ABG pCO2 51.1 H ABG pO2 74.0 L ABG PO2/FiO2 Ratio 2.11 ABG HCO3 28.5 H ABG O2 Saturation 94.2 L ABG O2 Content 14.2 L ABG Base Excess 2.5 A-a Gradient 116.1 Oxyhemoglobin 93.1 Total Hemoglobin 10.8 L O2 Delivery Device Ventilator O2 Liters/Min Not Reportable Minute Volume Not Reportable Vent Rate Not Reportable Vent Mode Pressure support FiO2 35 Tidal Volume Not Reportable PEEP 5 Peak Inspir Pressure Not Reportable Pressure Support 8 Sodium Potassium Chloride Carbon Dioxide Anion Gap BUN Creatinine Estim Creat Clear Calc Estimated GFR Glucose POC Capillary Glucose 114 H 99 Calcium Phosphorus Magnesium Total Bilirubin AST ALT Alkaline Phosphatase Total Protein Albumin 09/04/24 09/04/24 00:16 03:43 WBC 6.2 RBC 2.96 L Hgb 9.9 L Hct 33.3 L MCV 112.5 H MCH 33.4 MCHC 29.7 L RDW 15.0 H Plt Count 110 L MPV 10.7 H Immature Gran % (Auto) 0.8 H Neut % (Auto) 73.0 Lymph % (Auto) 11.0 L [place] % (Auto) 11.5 H Eos % (Auto) 2.9 Baso % (Auto) 0.8 Lymph # (Auto) 0.68 L [place] # (Auto) 0.7 H Eos # (Auto) 0.2 Baso # (Auto) 0.1 Abs Immat Gran (auto) 0.05 H Absolute Neuts (auto) 4.5 Absolute Nucleated RBC 0.000 Nucleated RBC % 0.0 Puncture Site ABG pH ABG pCO2 ABG pO2 ABG PO2/FiO2 Ratio ABG HCO3 ABG O2 Saturation ABG O2 Content ABG Base Excess A-a Gradient Oxyhemoglobin Total Hemoglobin O2 Delivery Device O2 Liters/Min Minute Volume Vent Rate Vent Mode FiO2 Tidal Volume PEEP Peak Inspir Pressure Pressure Support Sodium 139 Potassium 3.9 Chloride 97 L Carbon Dioxide 30 Anion Gap 12 BUN 48 H D Creatinine 4.92 H Estim Creat Clear Calc 18 Estimated GFR 12 L Glucose 81 POC Capillary Glucose 91 Calcium 8.7 Phosphorus 3.3 Magnesium 2.4 H Total Bilirubin 0.7 AST 16 L ALT 11 Alkaline Phosphatase 66 Total Protein 7.0 Albumin 3.8 Quality VTE Prophylaxis VTE prophylaxis: mechanical ordered and pharmacologic ordered
[2024-09-04] MEDS: PANTOPRAZOLE SODIUM IV 40 MG VIAL IV PUSH (09:54)
[2024-09-04 11:28] LABS: Glucose Point of Care 71 mg/dl (65-105)
[2024-09-04] MEDS: DEXTROSE 10% 1,000 ML 25 ML IV CONT (11:44)
--- NOTE | 2024-09-04 12:42 | P.PNNP_ITS ---
Progress Note: A&P Assessment and Plan (1) End stage renal disease: Code(s): N18.6 - End stage renal disease Status: Chronic Assessment and Plan: * HD under way * continue Friday//Friday dialysis schedule while hospitalized * volume status looks okay. Will remove some fluid today. * Blood pressure is good. * Electrolytes are okay (2) Acute on chronic respiratory failure with hypoxia and hypercapnia: Code(s): J96.21 - Acute and chronic respiratory failure with hypoxia; J96.22 - Acute and chronic respiratory failure with hypercapnia Status: Acute Assessment and Plan: * due to several issues: * pulmonary edema * possible pneumonia * obesity hypoventilation * chronic respiratory failure secondary to laryngeal cancer status post laryngectomy and laryngeal tube placement * on outpatient compatible mechanical ventilation * fluid removal with dry ultrafiltration and dialysis as tolerated by hemodynamics * antibiotic therapy for pneumonia (3) Hypotension: Code(s): I95.9 - Hypotension, unspecified Status: Acute Assessment and Plan: * resolved * noted since AM on 08/28 * worsened by administration scheduled BP medication on 08/28 as well * was asymptomatic * BP medications on hold * was on oral midodrine therapy - on hold currently * due to early sepsis?? * recent CXR with pneumonia * vasopressor therapy as needed - currently off * follow trend of hemodynamics (4) Pneumonia: Code(s): J18.9 - Pneumonia, unspecified organism Status: Acute Assessment and Plan: * as suggested by recent imaging * follow culture data - sputum culture noted * on antibiotic therapy (5) Hypertension: Code(s): I10 - Essential (primary) hypertension Status: Chronic Assessment and Plan: * BP medications on hold due to hypotension * resume as needed * systolic running 120s to 150s. (6) Type 2 diabetes mellitus: Code(s): E11.9 - Type 2 diabetes mellitus without complications Status: Chronic Assessment and Plan: * follow accu-cheks * glycemic control per hospitalist Subjective Date/time seen: 09/04/24 12:42 Interval history: Patient is up in a chair. On dialysis and tolerating it well. blood pressure is doing well. We are removing some fluid. He was seen at 11:30 a.m. Exam Narrative: General: WD/WN male in NAD; on mechanical ventilation Heart: normal S1 and S2; no rub Or gallop Lungs: coarse upper airway noise with decreased breath sounds at bases Abdomen: soft, nontender but mild distension, positive bowel sounds Extremities: trace - 1+ edema in UEs and LEs Skin: no nodules Objective Data Vital Signs Vital Signs: Vital Signs - 24 hr 09/03/24 14:00 09/03/24 14:00 09/03/24 14:07 Temperature Pulse Rate 91 91 95 Respiratory Rate 24 H 24 H Blood Pressure 106/67 Pulse Oximetry 95 Oxygen Delivery Oxygen Flow Rate Fraction of Inspired Oxygen 09/03/24 14:14 09/03/24 16:00 09/03/24 16:00 Temperature Pulse Rate 94 101 H Respiratory Rate 21 H Blood Pressure Pulse Oximetry 99 Oxygen Delivery High Flow Therapy with Tr Oxygen Flow Rate 20 Fraction of Inspired Oxygen 45 09/03/24 16:00 09/03/24 18:00 09/03/24 18:00 Temperature 98.1 F 98.2 F Pulse Rate 89 85 86 Respiratory Rate 22 H 20 Blood Pressure 121/70 128/63 Pulse Oximetry 99 100 Oxygen Delivery Oxygen Flow Rate Fraction of Inspired Oxygen 09/03/24 18:15 09/03/24 20:00 09/03/24 20:00 Temperature 98.2 F Pulse Rate 98 88 89 Respiratory Rate 20 22 H Blood Pressure 146/66 H Pulse Oximetry 94 99 Oxygen Delivery High Flow Therapy with Tr Oxygen Flow Rate 20 Fraction of Inspired Oxygen 45 09/03/24 20:00 09/03/24 20:36 09/03/24 20:38 Temperature Pulse Rate 87 Respiratory Rate 22 H Blood Pressure Pulse Oximetry 100 97 Oxygen Delivery High Flow Therapy with Tr High Flow Therapy with Tr Oxygen Flow Rate 20 20 Fraction of Inspired Oxygen 45 45 09/03/24 20:48 09/03/24 22:00 09/03/24 22:00 Temperature Pulse Rate 89 99 99 Respiratory Rate 22 H 25 H Blood Pressure 144/83 H Pulse Oximetry 100 Oxygen Delivery Oxygen Flow Rate Fraction of Inspired Oxygen 09/04/24 00:00 09/04/24 00:00 09/04/24 00:00 Temperature 98.3 F Pulse Rate 81 82 Respiratory Rate 18 Blood Pressure 150/79 H Pulse Oximetry 100 98 Oxygen Delivery High Flow Therapy with Tr Oxygen Flow Rate 20 Fraction of Inspired Oxygen 45 09/04/24 02:00 09/04/24 02:00 09/04/24 02:32 Temperature Pulse Rate 78 78 81 Respiratory Rate 17 23 H Blood Pressure 136/69 Pulse Oximetry 98 Oxygen Delivery Oxygen Flow Rate Fraction of Inspired Oxygen 09/04/24 02:36 09/04/24 04:00 09/04/24 04:00 Temperature Pulse Rate 81 Respiratory Rate Blood Pressure Pulse Oximetry 96 93 Oxygen Delivery Mechanical Ventilation CPAP Oxygen Flow Rate Fraction of Inspired Oxygen 35 35 35 09/04/24 04:00 09/04/24 04:00 09/04/24 05:49 Temperature 97.9 F Pulse Rate 76 79 83 Respiratory Rate 17 Blood Pressure 144/71 H Pulse Oximetry 90 92 Oxygen Delivery Mechanical Ventilation Oxygen Flow Rate Fraction of Inspired Oxygen 35 09/04/24 05:54 09/04/24 06:00 09/04/24 06:00 Temperature Pulse Rate 84 78 77 Respiratory Rate 23 H 18 Blood Pressure 161/69 H Pulse Oximetry 97 Oxygen Delivery Oxygen Flow Rate Fraction of Inspired Oxygen 09/04/24 08:00 09/04/24 08:00 09/04/24 08:00 Temperature 97.7 F Pulse Rate 80 Respiratory Rate 21 H Blood Pressure 135/76 Pulse Oximetry 93 99 Oxygen Delivery CPAP Oxygen Flow Rate Fraction of Inspired Oxygen 35 35 09/04/24 08:00 09/04/24 08:07 09/04/24 08:08 Temperature Pulse Rate 81 81 81 Respiratory Rate 16 18 Blood Pressure Pulse Oximetry 96 Oxygen Delivery High Flow Therapy with Tr Oxygen Flow Rate 20 Fraction of Inspired Oxygen 45 09/04/24 08:19 09/04/24 10:00 09/04/24 10:00 Temperature Pulse Rate 81 81 81 Respiratory Rate 16 20 Blood Pressure 151/79 H Pulse Oximetry 100 Oxygen Delivery Oxygen Flow Rate Fraction of Inspired Oxygen 09/04/24 10:20 09/04/24 10:20 09/04/24 10:25 Temperature 97.8 F Pulse Rate 78 82 Respiratory Rate 23 H Blood Pressure 142/66 H 134/63 Pulse Oximetry 100 Oxygen Delivery Oxygen Flow Rate 20 Fraction of Inspired Oxygen 45 09/04/24 10:30 09/04/24 10:45 09/04/24 11:00 Temperature Pulse Rate 75 77 77 Respiratory Rate Blood Pressure 139/62 129/76 126/73 Pulse Oximetry Oxygen Delivery Oxygen Flow Rate Fraction of Inspired Oxygen 09/04/24 11:15 09/04/24 11:24 09/04/24 11:30 Temperature Pulse Rate 77 77 78 Respiratory Rate 19 Blood Pressure 120/70 132/75 Pulse Oximetry 100 Oxygen Delivery High Flow Therapy with Tr Oxygen Flow Rate 20 Fraction of Inspired Oxygen 45 09/04/24 11:45 09/04/24 12:00 09/04/24 12:00 Temperature Pulse Rate 81 81 Respiratory Rate Blood Pressure 129/75 123/71 Pulse Oximetry 100 Oxygen Delivery High Flow Therapy with Tr Oxygen Flow Rate 20 Fraction of Inspired Oxygen 35 09/04/24 12:00 09/04/24 12:15 09/04/24 12:30 Temperature 97.5 F L Pulse Rate 80 84 81 Respiratory Rate 23 H Blood Pressure 123/71 127/77 128/79 Pulse Oximetry 100 Oxygen Delivery Oxygen Flow Rate Fraction of Inspired Oxygen Intake/Output Intake/Output: Intake & Output 09/01/24 09/02/24 09/03/24 09/04/24 23:59 23:59 23:59 23:59 Intake Total 2502.5 1437 1941 426 Output Total 0 3000 Balance 2502.5 -1563 1941 426 Meds/Results Medications: Active Medications Generic Name Dose Route Start Last Admin Trade Name Freq PRN Reason Stop Dose Admin Acetaminophen 650 mg 08/27/24 15:58 09/03/24 13:01 Acetaminophen 325 Mg Tablet PO 650 mg Q4H PRN Administration Mild Pain (1-3) or Fever Albuterol/Ipratropium 3 ml 09/02/24 02:00 09/04/24 08:05 Ipratropium 0.5 Mg/Albuterol Sulfate 2.5 Mg Ampul.Neb 3 Ml INHALATION 3 ml Q6HRT ISELA Administration Apixaban 10 mg 09/01/24 10:40 09/03/24 20:53 Apixaban 5 Mg Tablet PO 09/07/24 21:01 10 mg Q12HR ISELA Administration Apixaban 5 mg 09/08/24 09:00 Apixaban 5 Mg Tablet PO Q12HR [facility] Dextrose 12.5 gm 08/27/24 23:31 08/30/24 07:50 Dextrose 50% 25 Gm/50 Ml Syringe IV PUSH 12.5 gm PRN PRN Administration Hypoglycemia Protocol Epoetin Shawn-epbx 10,000 units 09/04/24 18:33 Epoetin Shawn-Epbx 10,000 Units/Ml Vial IV PUSH 09/04/24 18:34 ONCE ONE Glucagon 1 mg 08/27/24 23:31 Glucagon For Inj 1 Mg Vial IM PRN PRN Hypoglycemia Protocol Glucose 15 gm 08/27/24 23:31 Glucose Oral Gel 15 Gm Of Glucse In 37.5 Gm Tube PO PRN PRN Hypoglycemia Protocol Dextrose 1,000 mls @ 100 mls/hr 08/27/24 23:31 Dextrose 5% 1,000 Ml IVPB PRN PRN Hypoglycemia Protocol Albumin Human 50 mls @ 999 mls/hr 08/28/24 01:42 08/28/24 12:30 Albutein IVPB 09/27/24 01:41 Infused Q10M PRN Infusion HYPOTENSION Piperacillin Sod/Tazobactam Sod 2.25 gm in 50 mls @ 100 mls/hr 08/30/24 11:00 09/04/24 06:55 Zosyn 2.25 Gm/Ns 50 Ml IVPB 09/08/24 23:59 Infused Q6HR ISELA Infusion Dextrose 1,000 mls @ 25 mls/hr 09/04/24 11:30 09/04/24 11:44 Dextrose 10% IV CONT 25 mls/hr .Q24H ISELA Administration Insulin Aspart 3 - 6 units 09/03/24 12:00 09/04/24 11:27 Insulin Aspart (*Bkc) 100 Units/Ml SUB-Q Not Given Q6HR ISELA Protocol Levothyroxine Sodium 75 mcg 08/28/24 06:30 09/04/24 06:23 Levothyroxine Sodium 75 Mcg Tablet PO Not Given DAILY@0630 ISELA Levothyroxine Sodium 100 mcg 08/28/24 06:30 09/04/24 06:24 Levothyroxine Sodium 100 Mcg Tablet PO Not Given DAILY@0630 ISELA Midodrine 10 mg 08/29/24 08:00 09/04/24 11:36 Midodrine Hcl 10 Mg Tablet PO Not Given TID ISELA Pantoprazole Sodium 40 mg 08/30/24 09:00 09/04/24 09:54 Pantoprazole Sodium Iv 40 Mg Vial IV PUSH 40 mg QAM ISELA Administration Pravastatin Sodium 40 mg 08/28/24 09:00 09/04/24 11:16 Pravastatin Sodium 20 Mg Tablet PO Not Given DAILY [facility] Sevelamer Carbonate 1.6 gm 08/30/24 13:50 09/04/24 11:36 Sevelamer Carbonate 0.8 Gm Oral Powder Packet FEED TUBE Not Given TIDWM ISELA Radiology Results: ITS Impressions Abdomen X-Ray 08/30/24 09:26 IMPRESSION: 1: NG tube coiled in the stomach. Venous Doppler Study 08/30/24 10:40 IMPRESSION: 1. Bilateral below the knee deep venous thrombosis in the peroneal veins. Findings were discussed with Annabel Macedo, the nurse caring for the patient, at 10:49 AM. Chest CTA 09/02/24 08:13 Impression: No evidence of pulmonary embolus, aortic dissection, or aortic aneurysm. Moderate right pleural effusion and small left pleural effusion. Bibasilar atelectasis and mild pulmonary edema. Chest X-Ray 09/04/24 06:49 IMPRESSION: 1. Likely congestive heart failure with cardiomegaly and increasing mild pulmonary edema. 2. Interval decrease in now small right and small to moderate-sized left pleural effusions with associated bibasilar atelectasis and/or pneumonia. Labs Labs: Laboratory Results - last 24 hr 09/03/24 09/04/24 09/04/24 18:00 00:16 03:43 WBC 6.2 RBC 2.96 L Hgb 9.9 L Hct 33.3 L MCV 112.5 H MCH 33.4 MCHC 29.7 L RDW 15.0 H Plt Count 110 L MPV 10.7 H Immature Gran % (Auto) 0.8 H Neut % (Auto) 73.0 Lymph % (Auto) 11.0 L [place] % (Auto) 11.5 H Eos % (Auto) 2.9 Baso % (Auto) 0.8 Lymph # (Auto) 0.68 L [place] # (Auto) 0.7 H Eos # (Auto) 0.2 Baso # (Auto) 0.1 Abs Immat Gran (auto) 0.05 H Absolute Neuts (auto) 4.5 Absolute Nucleated RBC 0.000 Nucleated RBC % 0.0 Sodium 139 Potassium 3.9 Chloride 97 L Carbon Dioxide 30 Anion Gap 12 BUN 48 H D Creatinine 4.92 H Estim Creat Clear Calc 18 Estimated GFR 12 L Glucose 81 POC Capillary Glucose 99 91 Calcium 8.7 Phosphorus 3.3 Magnesium 2.4 H Total Bilirubin 0.7 AST 16 L ALT 11 Alkaline Phosphatase 66 Total Protein 7.0 Albumin 3.8 09/04/24 11:25 WBC RBC Hgb Hct MCV MCH MCHC RDW Plt Count MPV Immature Gran % (Auto) Neut % (Auto) Lymph % (Auto) [place] % (Auto) Eos % (Auto) Baso % (Auto) Lymph # (Auto) [place] # (Auto) Eos # (Auto) Baso # (Auto) Abs Immat Gran (auto) Absolute Neuts (auto) Absolute Nucleated RBC Nucleated RBC % Sodium Potassium Chloride Carbon Dioxide Anion Gap BUN Creatinine Estim Creat Clear Calc Estimated GFR Glucose POC Capillary Glucose 71 Calcium Phosphorus Magnesium Total Bilirubin AST ALT Alkaline Phosphatase Total Protein Albumin
--- NOTE | 2024-09-04 13:59 | PCSTNOTE ---
Please refer to the Bedside Swallow Evaluation in the EMR. Please note, silent aspiration cannot be ruled out at bedside. This agreeable 59 year old male patient was admitted to [facility] on 08/27/24 due to the need for dialysis. The pt has a past medical history significant for laryngeal cancer in 2016, status post partial laryngectomy, a partial tracheostomy, chemoradiation, and is tracheostomy dependent. A bedside swallow evaluation was ordered to assess the pts swallow function following his NG tube. The BSE took place this date while the pt was completing dialysis. The pt was utilizing an electrolarynx to verbally communicate. The pt completed an oral mechanism exam to assess the strength and range of motion of his articulators. His articulators are adequate for safe oral intake. The pt is edentulous. Trials of thin liquids (ice chips/water), puree (apple sauce), mixed consistency (diced peaches), and solids (yefri cracker) were trialed this date via straw, spoon, and hand. The pt did not require any assistance with feeding. No oral residue was noted and oral transit was timely. Laryngeal elevation was adequate and timely. Pt demonstrated a strong swallow initiation. Throughout the BSE the pt showed no signs or symptoms of aspiration (coughing/choking). Vocal quality could not be assessed due to the pt utilized an electrolarynx to communicate this date. Please note, silent aspiration cannot be ruled out at bedside. Given the results of this assessment, it is recommended this pt receive an oral diet of regular solids (IDDSI Level 7) and thin liquids (IDDSI Level 1). The pt was provided with the option to do soft and bite sized (IDDSI Level 6) diet due to missing teeth but verbalized that he does not want to change his diet at this time. It is additionally recommended that the pt follow these standard swallowing precautions: Small bites/sips and sit upright with head neutral during meals. No further ST is warranted at this time. Thank you for this referral. Dr. Garcia, and VASQUEZ Mckeon were notified of BSE results and recommendations. Thank you for this referral.
--- NOTE | 2024-09-04 14:40 | PM.IMPN ---
Progress Note: A&P Assessment and Plan (1) Acute on chronic respiratory failure with hypoxia and hypercapnia: Code(s): J96.21 - Acute and chronic respiratory failure with hypoxia; J96.22 - Acute and chronic respiratory failure with hypercapnia Status: Acute Assessment and Plan: Acute on chronic respiratory failure secondary to pulmonary edema and possible pneumonia, obesity hypoventilation, chronic respiratory failure secondary to laryngeal cancer status post laryngectomy and laryngeal tube placement Patient had laryngeal tube which could be attached to ventilator BiPAP and emergent ET tube was inserted through the laryngeal tube to secure airway and placed on mechanical ventilation. 08/31/2024 laryngeal 2 was switched to cuffed tracheostomy tube by ENT size 8 Neel. Delete that CTA 4 with no evidence of PE aortic dissection or aortic aneurysm. 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 - Tracheostomy status Status: Acute Assessment and Plan: See above (6) End-stage renal disease on hemodialysis: Code(s): N18.6 - End stage renal disease; Z99.2 - Dependence on renal dialysis Status: Acute Assessment and Plan: On hemodialysis as scheduled (7) Pulmonary edema: Qualifiers: Chronicity: acute Qualified Code(s): J81.0 - Acute pulmonary edema Code(s): J81.1 - Chronic pulmonary edema Status: Acute Assessment and Plan: See above (8) Generalized edema: Code(s): R60.1 - Generalized edema Status: Acute Assessment and Plan: See above (9) Sepsis: Code(s): A41.9 - Sepsis, unspecified organism Status: Acute Assessment and Plan: Resulted from community-acquired pneumonia considering lung infiltrates on chest x-ray sputum culture is growing Pseudomonas which is pansensitive MRSA screen was negative there is a possibility of him aspirating since he has been eating Continue Zosyn (10) DVT (deep venous thrombosis): Code(s): I82.409 - Acute embolism and thrombosis of unspecified deep veins of unspecified lower extremity Status: Acute Assessment and Plan: Lower extremity Dopplers done on 08/30 showed Bilateral below the knee deep venous thrombosis in the peroneal veins. CTA with no PE aortic dissection or AA aortic aneurysm 09/02 Patient is on anticoagulation Echocardiogram showed 1. Left ventricular chamber dimension is normal. 2. Left ventricular systolic function is normal, estimated at 50-55%. 3. There is mildly increased left ventricular wall thickness. 4. The left ventricular diastolic function is grade I diastolic dysfunction. 5. Right ventricular chamber dimension is moderately enlarged. 6. Right ventricular systolic function is reduced. 7. Right atrial chamber dimension is moderately enlarged. 8. There is mild mitral valve regurgitation. 9. There is moderate tricuspid valve regurgitation. 10. Estimated pulmonary arterial systolic pressure is 57 mmHg. 11. Dilated inferior vena cava with no collapse upon inspiration consistent with elevated right atrial pressure, 15 mmHg. Plan DVT prophylaxis -Eliquis Stress ulcer prophylaxis -PPI Nutrition - continue tube feed Code Status - Full Code Subjective Date/time seen: 09/04/24 14:40 Interval history: Overnight he removed NG tube. Speech to evaluate for diet. Getting dialysis at this a.m.. Review of Systems Review of Systems: All systems reviewed & are unremarkable except as noted in HPI and below Exam Narrative: General: Pt is ill-appearing gentleman who appears older than his age. He is awake follows command and is in no distress Lungs/Chest: Decreased bilateral breath sounds overall occasional crackles and decreased breath sound at bases, Cardiac: RRR. Normal S1 S2. No murmurs Circulation: Feet are well Abdomen: Decreased bowel sounds. Morbid Obese. Soft. NT. ND. Extremities: Bilateral pitting edema present chronic venous stasis present patient is missing his right great toe from past amputation : Hay in place Neurologic: Awake follows commands with all 4 extremities PERRL Objective Data Vital Signs Vital Signs: Vital Signs - 24 hr 09/03/24 16:00 04/04/25 16:00 09/03/24 16:00 Temperature 98.1 F Pulse Rate 101 H 89 Respiratory Rate 22 H Blood Pressure 121/70 Pulse Oximetry 99 99 Oxygen Delivery High Flow Therapy with Tr Oxygen Flow Rate 20 Fraction of Inspired Oxygen 45 09/03/24 18:00 09/03/24 18:00 09/03/24 18:15 Temperature 98.2 F Pulse Rate 85 86 98 Respiratory Rate 20 20 Blood Pressure 128/63 Pulse Oximetry 100 94 Oxygen Delivery High Flow Therapy with Tr Oxygen Flow Rate 20 Fraction of Inspired Oxygen 45 09/03/24 20:00 09/03/24 20:00 09/03/24 20:00 Temperature 98.2 F Pulse Rate 88 89 Respiratory Rate 22 H Blood Pressure 146/66 H Pulse Oximetry 99 100 Oxygen Delivery High Flow Therapy with Tr Oxygen Flow Rate 20 Fraction of Inspired Oxygen 45 09/03/24 20:36 09/03/24 20:38 09/03/24 20:48 Temperature Pulse Rate 87 89 Respiratory Rate 22 H 22 H Blood Pressure Pulse Oximetry 97 Oxygen Delivery High Flow Therapy with Tr Oxygen Flow Rate 20 Fraction of Inspired Oxygen 45 09/03/24 22:00 09/03/24 22:00 09/04/24 00:00 Temperature Pulse Rate 99 99 Respiratory Rate 25 H Blood Pressure 144/83 H Pulse Oximetry 100 100 Oxygen Delivery High Flow Therapy with Tr Oxygen Flow Rate 20 Fraction of Inspired Oxygen 45 09/04/24 00:00 09/04/24 00:00 09/04/24 02:00 Temperature 98.3 F Pulse Rate 81 82 78 Respiratory Rate 18 Blood Pressure 150/79 H Pulse Oximetry 98 Oxygen Delivery Oxygen Flow Rate Fraction of Inspired Oxygen 09/04/24 02:00 09/04/24 02:32 09/04/24 02:36 Temperature Pulse Rate 78 81 81 Respiratory Rate 17 23 H Blood Pressure 136/69 Pulse Oximetry 98 96 Oxygen Delivery Mechanical Ventilation Oxygen Flow Rate Fraction of Inspired Oxygen 35 09/04/24 04:00 09/04/24 04:00 09/04/24 04:00 Temperature 97.9 F Pulse Rate 76 Respiratory Rate 17 Blood Pressure 144/71 H Pulse Oximetry 93 90 Oxygen Delivery CPAP Oxygen Flow Rate Fraction of Inspired Oxygen 35 35 09/04/24 04:00 09/04/24 05:49 09/04/24 05:54 Temperature Pulse Rate 79 83 84 Respiratory Rate 23 H Blood Pressure Pulse Oximetry 92 Oxygen Delivery Mechanical Ventilation Oxygen Flow Rate Fraction of Inspired Oxygen 35 09/04/24 06:00 09/04/24 06:00 09/04/24 08:00 Temperature Pulse Rate 78 77 Respiratory Rate 18 Blood Pressure 161/69 H Pulse Oximetry 97 93 Oxygen Delivery CPAP Oxygen Flow Rate Fraction of Inspired Oxygen 35 09/04/24 08:00 09/04/24 08:00 09/04/24 08:00 Temperature 97.7 F Pulse Rate 80 81 Respiratory Rate 21 H Blood Pressure 135/76 Pulse Oximetry 99 Oxygen Delivery Oxygen Flow Rate Fraction of Inspired Oxygen 35 09/04/24 08:07 09/04/24 08:08 09/04/24 08:19 Temperature Pulse Rate 81 81 81 Respiratory Rate 16 18 16 Blood Pressure Pulse Oximetry 96 Oxygen Delivery High Flow Therapy with Tr Oxygen Flow Rate 20 Fraction of Inspired Oxygen 45 09/04/24 10:00 09/04/24 10:00 09/04/24 10:20 Temperature Pulse Rate 81 81 Respiratory Rate 20 Blood Pressure 151/79 H Pulse Oximetry 100 Oxygen Delivery Oxygen Flow Rate 20 Fraction of Inspired Oxygen 45 09/04/24 10:20 09/04/24 10:25 09/04/24 10:30 Temperature 97.8 F Pulse Rate 78 82 75 Respiratory Rate 23 H Blood Pressure 142/66 H 134/63 139/62 Pulse Oximetry 100 Oxygen Delivery Oxygen Flow Rate Fraction of Inspired Oxygen 09/04/24 10:45 09/04/24 11:00 09/04/24 11:15 Temperature Pulse Rate 77 77 77 Respiratory Rate Blood Pressure 129/76 126/73 120/70 Pulse Oximetry Oxygen Delivery Oxygen Flow Rate Fraction of Inspired Oxygen 09/04/24 11:24 09/04/24 11:30 09/04/24 11:45 Temperature Pulse Rate 77 78 81 Respiratory Rate 19 Blood Pressure 132/75 129/75 Pulse Oximetry 100 Oxygen Delivery High Flow Therapy with Tr Oxygen Flow Rate 20 Fraction of Inspired Oxygen 45 09/04/24 12:00 09/04/24 12:00 09/04/24 12:00 Temperature 97.5 F L Pulse Rate 81 80 Respiratory Rate 23 H Blood Pressure 123/71 123/71 Pulse Oximetry 100 100 Oxygen Delivery High Flow Therapy with Tr Oxygen Flow Rate 20 Fraction of Inspired Oxygen 35 09/04/24 12:00 09/04/24 12:15 09/04/24 12:30 Temperature Pulse Rate 109 H 84 81 Respiratory Rate Blood Pressure 127/77 128/79 Pulse Oximetry Oxygen Delivery Oxygen Flow Rate Fraction of Inspired Oxygen 09/04/24 12:45 09/04/24 13:00 09/04/24 13:15 Temperature Pulse Rate 78 79 88 Respiratory Rate Blood Pressure 117/70 112/64 122/79 Pulse Oximetry Oxygen Delivery Oxygen Flow Rate Fraction of Inspired Oxygen 09/04/24 13:30 09/04/24 13:45 09/04/24 14:00 Temperature Pulse Rate 87 91 84 Respiratory Rate Blood Pressure 117/76 116/71 Pulse Oximetry Oxygen Delivery Oxygen Flow Rate Fraction of Inspired Oxygen 09/04/24 14:00 09/04/24 14:27 09/04/24 14:27 Temperature Pulse Rate 86 84 84 Respiratory Rate 23 H 19 19 Blood Pressure 118/72 Pulse Oximetry 100 100 Oxygen Delivery High Flow Therapy with Tr Oxygen Flow Rate 20 Fraction of Inspired Oxygen 35 Intake/Output Intake/Output: Intake & Output 09/01/24 09/02/24 09/03/24 09/04/24 23:59 23:59 23:59 23:59 Intake Total 2502.5 1437 1941 426 Output Total 0 3000 Balance 2502.5 -1563 1941 426 Meds/Results Medications: Active Medications Generic Name Dose Route Start Last Admin Trade Name Freq PRN Reason Stop Dose Admin Acetaminophen 650 mg 08/27/24 15:58 09/03/24 13:01 Acetaminophen 325 Mg Tablet PO 650 mg Q4H PRN Administration Mild Pain (1-3) or Fever Albuterol/Ipratropium 3 ml 09/02/24 02:00 09/04/24 14:27 Ipratropium 0.5 Mg/Albuterol Sulfate 2.5 Mg Ampul.Neb 3 Ml INHALATION 3 ml Q6HRT ISELA Administration Apixaban 10 mg 09/01/24 10:40 09/03/24 20:53 Apixaban 5 Mg Tablet PO 09/07/24 21:01 10 mg Q12HR ISELA Administration Apixaban 5 mg 09/08/24 09:00 Apixaban 5 Mg Tablet PO Q12HR ISELA Dextrose 12.5 gm 08/27/24 23:31 08/30/24 07:50 Dextrose 50% 25 Gm/50 Ml Syringe IV PUSH 12.5 gm PRN PRN Administration Hypoglycemia Protocol Epoetin Shawn-epbx 10,000 units 09/04/24 18:33 Epoetin Shawn-Epbx 10,000 Units/Ml Vial IV PUSH 09/04/24 18:34 ONCE ONE Glucagon 1 mg 08/27/24 23:31 Glucagon For Inj 1 Mg Vial IM PRN PRN Hypoglycemia Protocol Glucose 15 gm 08/27/24 23:31 Glucose Oral Gel 15 Gm Of Glucse In 37.5 Gm Tube PO PRN PRN Hypoglycemia Protocol Dextrose 1,000 mls @ 100 mls/hr 08/27/24 23:31 Dextrose 5% 1,000 Ml IVPB PRN PRN Hypoglycemia Protocol Albumin Human 50 mls @ 999 mls/hr 08/28/24 01:42 08/28/24 12:30 Albutein IVPB 09/27/24 01:41 Infused Q10M PRN Infusion HYPOTENSION Piperacillin Sod/Tazobactam Sod 2.25 gm in 50 mls @ 100 mls/hr 08/30/24 11:00 09/04/24 06:55 Zosyn 2.25 Gm/Ns 50 Ml IVPB 09/08/24 23:59 Infused Q6HR ISELA Infusion Dextrose 1,000 mls @ 25 mls/hr 09/04/24 11:30 09/04/24 11:44 Dextrose 10% IV CONT 25 mls/hr .Q24H ISELA Administration Insulin Aspart 3 - 6 units 09/03/24 12:00 09/04/24 11:27 Insulin Aspart (*Bkc) 100 Units/Ml SUB-Q Not Given Q6HR ISELA Protocol Levothyroxine Sodium 75 mcg 08/28/24 06:30 09/04/24 06:23 Levothyroxine Sodium 75 Mcg Tablet PO Not Given DAILY@0630 [facility] Levothyroxine Sodium 100 mcg 08/28/24 06:30 09/04/24 06:24 Levothyroxine Sodium 100 Mcg Tablet PO Not Given DAILY@0630 [facility] Midodrine 10 mg 08/29/24 08:00 09/04/24 11:36 Midodrine Hcl 10 Mg Tablet PO Not Given TID [facility] Pantoprazole Sodium 40 mg 08/30/24 09:00 09/04/24 09:54 Pantoprazole Sodium Iv 40 Mg Vial IV PUSH 40 mg QAM ISELA Administration Pravastatin Sodium 40 mg 08/28/24 09:00 09/04/24 11:16 Pravastatin Sodium 20 Mg Tablet PO Not Given DAILY [facility] Sevelamer Carbonate 1.6 gm 08/30/24 13:50 09/04/24 11:36 Sevelamer Carbonate 0.8 Gm Oral Powder Packet FEED TUBE Not Given TIDWM [facility] Radiology Results: ITS Impressions Abdomen X-Ray 08/30/24 09:26 IMPRESSION: 1: NG tube coiled in the stomach. Venous Doppler Study 08/30/24 10:40 IMPRESSION: 1. Bilateral below the knee deep venous thrombosis in the peroneal veins. Findings were discussed with Annabel Macedo, the nurse caring for the patient, at 10:49 AM. Chest CTA 09/02/24 08:13 Impression: No evidence of pulmonary embolus, aortic dissection, or aortic aneurysm. Moderate right pleural effusion and small left pleural effusion. Bibasilar atelectasis and mild pulmonary edema. Chest X-Ray 09/04/24 06:49 IMPRESSION: 1. Likely congestive heart failure with cardiomegaly and increasing mild pulmonary edema. 2. Interval decrease in now small right and small to moderate-sized left pleural effusions with associated bibasilar atelectasis and/or pneumonia. Labs Labs: Laboratory Results - last 24 hr 09/03/24 09/04/24 09/04/24 18:00 00:16 03:43 WBC 6.2 RBC 2.96 L Hgb 9.9 L Hct 33.3 L MCV 112.5 H MCH 33.4 MCHC 29.7 L RDW 15.0 H Plt Count 110 L MPV 10.7 H Immature Gran % (Auto) 0.8 H Neut % (Auto) 73.0 Lymph % (Auto) 11.0 L [place] % (Auto) 11.5 H Eos % (Auto) 2.9 Baso % (Auto) 0.8 Lymph # (Auto) 0.68 L [place] # (Auto) 0.7 H Eos # (Auto) 0.2 Baso # (Auto) 0.1 Abs Immat Gran (auto) 0.05 H Absolute Neuts (auto) 4.5 Absolute Nucleated RBC 0.000 Nucleated RBC % 0.0 Sodium 139 Potassium 3.9 Chloride 97 L Carbon Dioxide 30 Anion Gap 12 BUN 48 H D Creatinine 4.92 H Estim Creat Clear Calc 18 Estimated GFR 12 L Glucose 81 POC Capillary Glucose 99 91 Calcium 8.7 Phosphorus 3.3 Magnesium 2.4 H Total Bilirubin 0.7 AST 16 L ALT 11 Alkaline Phosphatase 66 Total Protein 7.0 Albumin 3.8 09/04/24 11:25 WBC RBC Hgb Hct MCV MCH MCHC RDW Plt Count MPV Immature Gran % (Auto) Neut % (Auto) Lymph % (Auto) [place] % (Auto) Eos % (Auto) Baso % (Auto) Lymph # (Auto) [place] # (Auto) Eos # (Auto) Baso # (Auto) Abs Immat Gran (auto) Absolute Neuts (auto) Absolute Nucleated RBC Nucleated RBC % Sodium Potassium Chloride Carbon Dioxide Anion Gap BUN Creatinine Estim Creat Clear Calc Estimated GFR Glucose POC Capillary Glucose 71 Calcium Phosphorus Magnesium Total Bilirubin AST ALT Alkaline Phosphatase Total Protein Albumin
[2024-09-04] MEDS: APIXABAN 5 MG TABLET 10 MG PO ×2 (14:58→23:07)
[2024-09-04] MEDS: MIDODRINE HCL 10 MG TABLET PO (16:39)
[2024-09-04] MEDS: SEVELAMER CARBONATE 0.8 GM ORAL POWDER PACKET 1.6 GM FEED TUBE (16:39)
[2024-09-04 16:54] LABS: Glucose Point of Care 125 mg/dl (65-105)
[2024-09-04 23:28] LABS: Glucose Point of Care 105 mg/dl (65-105)
[2024-09-05] VITALS (25 sets, daily range): BP systolic 93–126; BP diastolic 53–84; PULSE 67–86; RESP 12–23; TEMP 36.8–37; O2SAT 86–100
[2024-09-05] MEDS: IPRATROPIUM 0.5 MG/ALBUTEROL SULFATE 2.5 MG AMPUL.NEB 3 ML INHALATION ×4 (01:57→20:04)
[2024-09-05] MEDS: PIPERACILLIN/TAZ 2.25G/NS 50ML 2.25 GM/50 ML BAG IVPB ×4 (02:54→20:13)
[2024-09-05 03:54] LABS: Hematocrit 32.7 % (42.0-52.0); Hemoglobin 9.7 g/dL (14.0-18.0); Immature Platelet Fraction Pct 5.8 % (0.9-11.2); Mean Corpuscular HGB Conc 29.7 g/dl (32-36); Mean Corpuscular Hemoglobin 33.7 pg (26-34); Mean Corpuscular Volume 113.5 fl (80-100); Mean Platelet Volume 11.1 fl (7.4-10.4); Platelet Count Result 128 k/mm3 (150-375); Red Blood Count 2.88 M/mm3 (4.6-6.20); White Blood Count 6.8 K/mm3 (4.5-10.0)
[2024-09-05 04:20] LABS: Alanine Aminotransferase 11 U/L (6-50); Alkaline Phosphatase 64 U/L (38-126); Anion Gap 12 mmol/L (4-12); Aspartate Amino Transferase 21 U/L (17-59); Bilirubin,Total 0.7 mg/dL (0.2-1.3); Blood Urea Nitrogen 32 mg/dL (9-20); Calcium 8.7 mg/dL (8.4-10.2); Carbon Dioxide 30 mmol/L (22-30); Chloride 98 mmol/L (98-107); Estimated CRCL calculation 21 ml/min; Estimated Glomerular Filt Rate 15; Glucose 104 mg/dL (65-110); Magnesium 2.3 mg/dL (1.6-2.3); Potassium 3.8 mmol/L (3.4-5.0); Sodium 140 mmol/L (137-145)
[2024-09-05] MEDS: LEVOTHYROXINE SODIUM 100 MCG TABLET PO (05:18)
[2024-09-05] MEDS: LEVOTHYROXINE SODIUM 75 MCG TABLET PO (05:18)
--- NOTE | 2024-09-05 08:13 | WPDINTPN ---
Progress Note: A&P Assessment and Plan (1) Acute on chronic respiratory failure with hypoxia and hypercapnia: Code(s): J96.21 - Acute and chronic respiratory failure with hypoxia; J96.22 - Acute and chronic respiratory failure with hypercapnia Status: Acute Assessment and Plan: Acute on chronic respiratory failure secondary to pulmonary edema and possible pneumonia, obesity hypoventilation, chronic respiratory failure secondary to laryngeal cancer status post laryngectomy and laryngeal tube placement 08/29 His laryngeal tube cannot be attached to ventilator or BiPAP. An emergent ET tube was inserted through the laryngeal tube to secure airway and attached to mechanical ventilation Due to small size of airway we are having high pressures and gradually increasing mechanical ventilation 08/31 laryngeal tube was switched to a cuffed tracheostomy tube by ENT physician. Size 8 Shiley ABG reviewed CTA chest09/02 No evidence of pulmonary embolus, aortic dissection, or aortic aneurysm. Moderate right pleural effusion and small left pleural effusion. Bibasilar atelectasis and mild pulmonary edema. Patient was on Airvo yesterday during the day and was a PSV overnight. I will switch him back to Airvo today and wean oxygen. Will change PSV only to p.r.n. now and see how patient does Continue fluid removed with dialysis He is on empiric antibiotic therapy for pneumonia - see below (2) Hypotension: Code(s): I95.9 - Hypotension, unspecified Status: Acute Assessment and Plan: 1 admission to ICU patient was hypotensive and has been started on Levophed. Patient does have history of hypertension and was on antihypertensive medications. Hypotension could be secondary to hypoxia and acidosis as blood pressure is now improving after patient has been placed on mechanical ventilation. Since he is already volume overloaded he has been started on Levophed to maintain mean arterial pressure to be able to dialyze patient There is also a possibility of sepsis although patient has been afebrile with normal WBC count. 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 - Tracheostomy status Status: Acute Assessment and Plan: See above (6) End-stage renal disease on hemodialysis: Code(s): N18.6 - End stage renal disease; Z99.2 - Dependence on renal dialysis Status: Acute Assessment and Plan: Patient was dialyzed yesterday (7) Pulmonary edema: Qualifiers: Chronicity: acute Qualified Code(s): J81.0 - Acute pulmonary edema Code(s): J81.1 - Chronic pulmonary edema Status: Acute Assessment and Plan: See above (8) Generalized edema: Code(s): R60.1 - Generalized edema Status: Acute Assessment and Plan: See above (9) Sepsis: Code(s): A41.9 - Sepsis, unspecified organism Status: Acute Assessment and Plan: Although patient is afebrile and has had normal WBC. He was started on antibiotics for community-acquired pneumonia considering lung infiltrates on chest x-ray Pneumonia appears to be less likely from clinical picture. His procalcitonin level was low. He sputum culture is growing Pseudomonas which is pansensitive MRSA screen was negative there is a possibility of him aspirating since he has been eating Continue Zosyn for 7 day course (10) DVT (deep venous thrombosis): Code(s): I82.409 - Acute embolism and thrombosis of unspecified deep veins of unspecified lower extremity Status: Acute Assessment and Plan: Lower extremity Dopplers done on 08/30 showed Bilateral below the knee deep venous thrombosis in the peroneal veins. Findings were discussed with Annabel Macedo, the nurse caring for the patient, at 10:49 AM. Patient is bedridden and ventilator dependent and high risk of further worsening of DVT. Patient has been started on heparin infusion and has been tolerating. I do not anticipate any procedures at this time and side will start him on Eliquis A CTA of the chest was not done imaging to rule out PE as when I saw the patient patient was already getting dialyzed. It will also not change management coordinator at this point as patient is already on anticoagulation. Patient is getting CTA today and will get dialyzed after that Continue Eliquis Echo Summary 1. Left ventricular chamber dimension is normal. 2. Left ventricular systolic function is normal, estimated at 50-55%. 3. There is mildly increased left ventricular wall thickness. 4. The left ventricular diastolic function is grade I diastolic dysfunction. 5. Right ventricular chamber dimension is moderately enlarged. 6. Right ventricular systolic function is reduced. 7. Right atrial chamber dimension is moderately enlarged. 8. There is mild mitral valve regurgitation. 9. There is moderate tricuspid valve regurgitation. 10. Estimated pulmonary arterial systolic pressure is 57 mmHg. 11. Dilated inferior vena cava with no collapse upon inspiration consistent with elevated right atrial pressure, 15 mmHg. Plan DVT prophylaxis -Eliquis Stress ulcer prophylaxis -PPI Nutrition -diet ordered Code Status - Full Code Consult PT OT Up in chair Total Critical Care Time - 30 minutes Due to a high probability of clinically significant, life threatening deterioration, the patient required my highest level of preparedness to intervene emergently and I personally spent this critical care time directly and personally managing the patient. This critical care time included obtaining a history; examining the patient; pulse oximetry; ordering and review of studies; arranging urgent treatment with development of a management plan; evaluation of patient's response to treatment; frequent reassessment; and discussions with other providers. It was exclusive of separately billable procedures and treating other patients and teaching time. Please see Assessment and Plan section and the rest of the note for further information on patient assessment and treatment Subjective Date/time seen: 09/05/24 Patient tolerated Airvo during the day yesterday and was on pressure support last night. He was dialyzed yesterday. He passed a swallow study and was started on diet afebrile He denies any other complaint. Patient denies fever, chest pain, shortness of breath, cough, nausea vomiting, abdominal pain,, diarrhea, headache or constipation. All other systems were reviewed and were negative. Afebrile. Patient had a bowel movement. Patient sat in a chair yesterday. Review of Systems Review of Systems: ROS unobtainable: Yes unobtainable due to endotracheal tube Exam Narrative: General: Pt is ill-appearing gentleman who appears older than his age. He is awake follows command and is in no distress Lungs/Chest: Decreased bilateral breath sounds overall occasional crackles and decreased breath sound at bases, Cardiac: RRR. Normal S1 S2. No murmurs Circulation: Feet are well Abdomen: Decreased bowel sounds. Morbid Obese. Soft. NT. ND. 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 : Hay in place Neurologic: Awake follows commands with all 4 extremities PERRL Objective Data Vital Signs Vital Signs: Vital Signs - 24 hr 09/04/24 08:19 09/04/24 10:00 09/04/24 10:00 Temperature Pulse Rate 81 81 81 Respiratory Rate 16 20 Blood Pressure 151/79 H Pulse Oximetry 100 Oxygen Delivery Oxygen Flow Rate Fraction of Inspired Oxygen 09/04/24 10:20 09/04/24 10:20 09/04/24 10:25 Temperature 36.6 C Pulse Rate 78 82 Respiratory Rate 23 H Blood Pressure 142/66 H 134/63 Pulse Oximetry 100 Oxygen Delivery Oxygen Flow Rate 20 Fraction of Inspired Oxygen 45 09/04/24 10:30 09/04/24 10:45 09/04/24 11:00 Temperature Pulse Rate 75 77 77 Respiratory Rate Blood Pressure 139/62 129/76 126/73 Pulse Oximetry Oxygen Delivery Oxygen Flow Rate Fraction of Inspired Oxygen 09/04/24 11:15 09/04/24 11:24 09/04/24 11:30 Temperature Pulse Rate 77 77 78 Respiratory Rate 19 Blood Pressure 120/70 132/75 Pulse Oximetry 100 Oxygen Delivery High Flow Therapy with Tr Oxygen Flow Rate 20 Fraction of Inspired Oxygen 45 09/04/24 11:45 09/04/24 12:00 09/04/24 12:00 Temperature Pulse Rate 81 81 Respiratory Rate Blood Pressure 129/75 123/71 Pulse Oximetry 100 Oxygen Delivery High Flow Therapy with Tr Oxygen Flow Rate 20 Fraction of Inspired Oxygen 35 09/04/24 12:00 09/04/24 12:00 09/04/24 12:15 Temperature 36.4 C L Pulse Rate 80 77 84 Respiratory Rate 23 H Blood Pressure 123/71 127/77 Pulse Oximetry 100 Oxygen Delivery Oxygen Flow Rate Fraction of Inspired Oxygen 09/04/24 12:30 09/04/24 12:45 09/04/24 13:00 Temperature Pulse Rate 81 78 79 Respiratory Rate Blood Pressure 128/79 117/70 112/64 Pulse Oximetry Oxygen Delivery Oxygen Flow Rate Fraction of Inspired Oxygen 09/04/24 13:15 09/04/24 13:30 09/04/24 13:45 Temperature Pulse Rate 88 87 91 Respiratory Rate Blood Pressure 122/79 117/76 116/71 Pulse Oximetry Oxygen Delivery Oxygen Flow Rate Fraction of Inspired Oxygen 09/04/24 13:55 09/04/24 14:00 09/04/24 14:00 Temperature Pulse Rate 87 84 86 Respiratory Rate 23 H Blood Pressure 115/76 118/72 Pulse Oximetry 100 Oxygen Delivery Oxygen Flow Rate Fraction of Inspired Oxygen 09/04/24 14:27 09/04/24 14:27 09/04/24 14:30 Temperature 37.0 C Pulse Rate 84 84 86 Respiratory Rate 19 19 25 H Blood Pressure 90/65 L Pulse Oximetry 100 100 Oxygen Delivery High Flow Therapy with Tr Oxygen Flow Rate 20 Fraction of Inspired Oxygen 35 09/04/24 14:42 09/04/24 16:00 09/04/24 16:00 Temperature 36.3 C L Pulse Rate 90 82 Respiratory Rate 26 H 20 Blood Pressure 98/63 L Pulse Oximetry 92 90 Oxygen Delivery High Flow Therapy with Tr Oxygen Flow Rate 20 Fraction of Inspired Oxygen 30 09/04/24 16:00 09/04/24 16:47 09/04/24 18:00 Temperature Pulse Rate 72 86 85 Respiratory Rate 20 Blood Pressure Pulse Oximetry 94 Oxygen Delivery High Flow Therapy with Tr Oxygen Flow Rate 20 Fraction of Inspired Oxygen 30 09/04/24 18:00 09/04/24 20:00 09/04/24 20:00 Temperature 36.9 C Pulse Rate 85 85 Respiratory Rate 21 H 23 H Blood Pressure 112/67 83/70 L Pulse Oximetry 90 90 98 Oxygen Delivery High Flow Therapy with Tr Oxygen Flow Rate 20 Fraction of Inspired Oxygen 30 09/04/24 20:00 09/04/24 20:17 09/04/24 20:17 Temperature Pulse Rate 85 83 83 Respiratory Rate 18 18 Blood Pressure Pulse Oximetry 95 Oxygen Delivery High Flow Therapy with Tr Oxygen Flow Rate 20 Fraction of Inspired Oxygen 30 09/04/24 20:30 09/04/24 22:00 09/04/24 22:00 Temperature 36.9 C Pulse Rate 83 77 78 Respiratory Rate 18 20 Blood Pressure 112/66 Pulse Oximetry 100 Oxygen Delivery Oxygen Flow Rate Fraction of Inspired Oxygen 09/05/24 00:00 09/05/24 00:00 09/05/24 00:00 Temperature 37.0 C Pulse Rate 73 77 Respiratory Rate 20 Blood Pressure 93/60 L Pulse Oximetry 97 99 Oxygen Delivery High Flow Therapy with Tr Oxygen Flow Rate 20 Fraction of Inspired Oxygen 30 09/05/24 01:57 09/05/24 02:00 09/05/24 02:00 Temperature Pulse Rate 84 85 86 Respiratory Rate 22 H 23 H Blood Pressure 113/80 Pulse Oximetry 99 Oxygen Delivery Oxygen Flow Rate Fraction of Inspired Oxygen 09/05/24 02:09 09/05/24 02:15 09/05/24 04:00 Temperature 36.9 C Pulse Rate 84 83 75 Respiratory Rate 22 H 19 Blood Pressure 106/62 Pulse Oximetry 92 94 Oxygen Delivery Mechanical Ventilation Oxygen Flow Rate Fraction of Inspired Oxygen 35 09/05/24 04:00 09/05/24 04:00 09/05/24 04:00 Temperature Pulse Rate 79 Respiratory Rate Blood Pressure Pulse Oximetry 100 Oxygen Delivery Mechanical Ventilation Oxygen Flow Rate Fraction of Inspired Oxygen 35 35 09/05/24 05:25 09/05/24 06:00 09/05/24 06:00 Temperature Pulse Rate 83 82 67 Respiratory Rate 16 Blood Pressure 110/65 Pulse Oximetry 92 96 Oxygen Delivery Mechanical Ventilation Oxygen Flow Rate Fraction of Inspired Oxygen 35 09/05/24 07:30 09/05/24 07:30 09/05/24 07:55 Temperature Pulse Rate 72 72 Respiratory Rate 20 Blood Pressure Pulse Oximetry 97 86 L Oxygen Delivery Mechanical Ventilation High Flow Therapy with Tr Oxygen Flow Rate 20 Fraction of Inspired Oxygen 35 30 09/05/24 08:00 09/05/24 08:00 Temperature Pulse Rate 79 Respiratory Rate 12 Blood Pressure Pulse Oximetry 93 Oxygen Delivery High Flow Therapy with Tr Oxygen Flow Rate 20 Fraction of Inspired Oxygen 50 Intake/Output Intake/Output: Intake & Output 09/02/24 09/03/24 09/04/24 09/05/24 23:59 23:59 23:59 23:59 Intake Total 1437 1941 1036.8 50 Output Total 3000 3460 Balance -1563 1941 -2423.2 50 Meds/Results Medications: Active Medications Generic Name Dose Route Start Last Admin Trade Name Freq PRN Reason Stop Dose Admin Acetaminophen 650 mg 08/27/24 15:58 09/03/24 13:01 Acetaminophen 325 Mg Tablet PO 650 mg Q4H PRN Administration Mild Pain (1-3) or Fever Albuterol/Ipratropium 3 ml 09/02/24 02:00 09/05/24 07:30 Ipratropium 0.5 Mg/Albuterol Sulfate 2.5 Mg Ampul.Neb 3 Ml INHALATION 3 ml Q6HRT ISELA Administration Apixaban 10 mg 09/01/24 10:40 09/04/24 23:07 Apixaban 5 Mg Tablet PO 09/07/24 21:01 10 mg Q12HR ISELA Administration Apixaban 5 mg 09/08/24 09:00 Apixaban 5 Mg Tablet PO Q12HR ISELA Dextrose 12.5 gm 08/27/24 23:31 08/30/24 07:50 Dextrose 50% 25 Gm/50 Ml Syringe IV PUSH 12.5 gm PRN PRN Administration Hypoglycemia Protocol Glucagon 1 mg 08/27/24 23:31 Glucagon For Inj 1 Mg Vial IM PRN PRN Hypoglycemia Protocol Glucose 15 gm 08/27/24 23:31 Glucose Oral Gel 15 Gm Of Glucse In 37.5 Gm Tube PO PRN PRN Hypoglycemia Protocol Dextrose 1,000 mls @ 100 mls/hr 08/27/24 23:31 Dextrose 5% 1,000 Ml IVPB PRN PRN Hypoglycemia Protocol Albumin Human 50 mls @ 999 mls/hr 08/28/24 01:42 08/28/24 12:30 Albutein IVPB 09/27/24 01:41 Infused Q10M PRN Infusion HYPOTENSION Piperacillin Sod/Tazobactam Sod 2.25 gm in 50 mls @ 100 mls/hr 09/04/24 21:00 09/05/24 04:24 Zosyn 2.25 Gm/Ns 50 Ml IVPB Infused Q6H ISELA Infusion Insulin Aspart 3 - 6 units 09/03/24 12:00 09/05/24 05:20 Insulin Aspart (*Bkc) 100 Units/Ml SUB-Q Not Given Q6HR [facility] Protocol Levothyroxine Sodium 75 mcg 08/28/24 06:30 09/05/24 05:18 Levothyroxine Sodium 75 Mcg Tablet PO 75 mcg DAILY@0630 ISELA Administration Levothyroxine Sodium 100 mcg 08/28/24 06:30 09/05/24 05:18 Levothyroxine Sodium 100 Mcg Tablet PO 100 mcg DAILY@0630 ISELA Administration Midodrine 10 mg 08/29/24 08:00 09/04/24 16:39 Midodrine Hcl 10 Mg Tablet PO 10 mg TID ISELA Administration Pantoprazole Sodium 40 mg 08/30/24 09:00 09/04/24 09:54 Pantoprazole Sodium Iv 40 Mg Vial IV PUSH 40 mg QAM ISELA Administration Pravastatin Sodium 40 mg 08/28/24 09:00 09/04/24 11:16 Pravastatin Sodium 20 Mg Tablet PO Not Given DAILY [facility] Sevelamer Carbonate 1.6 gm 08/30/24 13:50 09/04/24 16:39 Sevelamer Carbonate 0.8 Gm Oral Powder Packet FEED TUBE 1.6 gm TIDWM [facility] Administration Radiology Results: ITS Impressions Abdomen X-Ray 08/30/24 09:26 IMPRESSION: 1: NG tube coiled in the stomach. Venous Doppler Study 08/30/24 10:40 IMPRESSION: 1. Bilateral below the knee deep venous thrombosis in the peroneal veins. Findings were discussed with Annabel Macedo, the nurse caring for the patient, at 10:49 AM. Chest CTA 09/02/24 08:13 Impression: No evidence of pulmonary embolus, aortic dissection, or aortic aneurysm. Moderate right pleural effusion and small left pleural effusion. Bibasilar atelectasis and mild pulmonary edema. Chest X-Ray 09/05/24 08:06 IMPRESSION: No significant change from previous examination. Labs Labs: Laboratory Results - last 24 hr 09/04/24 09/04/24 09/04/24 11:25 16:43 23:22 WBC RBC Hgb Hct MCV MCH MCHC RDW Plt Count MPV % Immature Plt Fraction Sodium Potassium Chloride Carbon Dioxide Anion Gap BUN Creatinine Estim Creat Clear Calc Estimated GFR Glucose POC Capillary Glucose 71 125 H 105 Calcium Magnesium Total Bilirubin AST ALT Alkaline Phosphatase Total Protein Albumin 09/05/24 03:48 WBC 6.8 RBC 2.88 L Hgb 9.7 L Hct 32.7 L MCV 113.5 H MCH 33.7 MCHC 29.7 L RDW 15.0 H Plt Count 128 L MPV 11.1 H % Immature Plt Fraction 5.8 Sodium 140 Potassium 3.8 Chloride 98 Carbon Dioxide 30 Anion Gap 12 BUN 32 H D Creatinine 4.03 H Estim Creat Clear Calc 21 Estimated GFR 15 L Glucose 104 POC Capillary Glucose Calcium 8.7 Magnesium 2.3 Total Bilirubin 0.7 AST 21 ALT 11 Alkaline Phosphatase 64 Total Protein 7.0 Albumin 4.0 Quality VTE Prophylaxis VTE prophylaxis: mechanical ordered and pharmacologic ordered
[2024-09-05] MEDS: SEVELAMER CARBONATE 0.8 GM ORAL POWDER PACKET 1.6 GM FEED TUBE (09:21)
[2024-09-05] MEDS: APIXABAN 5 MG TABLET 10 MG PO ×2 (09:21→20:12)
[2024-09-05] MEDS: MIDODRINE HCL 10 MG TABLET PO ×3 (09:22→16:35)
[2024-09-05] MEDS: PRAVASTATIN SODIUM 20 MG TABLET 40 MG PO (09:22)
[2024-09-05] MEDS: PANTOPRAZOLE SODIUM IV 40 MG VIAL IV PUSH (09:45)
--- NOTE | 2024-09-05 12:02 | P.PNNP_ITS ---
Progress Note: A&P Assessment and Plan (1) End stage renal disease: Code(s): N18.6 - End stage renal disease Status: Chronic Assessment and Plan: * HD went well. * continue Friday//Friday dialysis schedule while hospitalized * volume status looks okay. Will remove some fluid today. * Blood pressure is doing well * Electrolytes are in range * next dialysis on Friday (2) Acute on chronic respiratory failure with hypoxia and hypercapnia: Code(s): J96.21 - Acute and chronic respiratory failure with hypoxia; J96.22 - Acute and chronic respiratory failure with hypercapnia Status: Acute Assessment and Plan: * due to several issues: * pulmonary edema * possible pneumonia * obesity hypoventilation * chronic respiratory failure secondary to laryngeal cancer status post laryngectomy and laryngeal tube placement * on outpatient compatible mechanical ventilation * fluid removal with dry ultrafiltration and dialysis as tolerated by hemodynamics * antibiotic therapy for pneumonia (3) Hypotension: Code(s): I95.9 - Hypotension, unspecified Status: Acute Assessment and Plan: * resolved * noted since AM on 08/28 * worsened by administration scheduled BP medication on 08/28 as well * was asymptomatic * BP medications on hold * was on oral midodrine therapy - on hold currently * due to early sepsis?? * recent CXR with pneumonia * blood pressure doing well off vasopressors. * Hold blood pressure pills back in as needed but not now (4) Pneumonia: Code(s): J18.9 - Pneumonia, unspecified organism Status: Acute Assessment and Plan: * as suggested by recent imaging * follow culture data - sputum culture noted * on antibiotic therapy (5) Hypertension: Code(s): I10 - Essential (primary) hypertension Status: Chronic Assessment and Plan: * BP medications on hold due to hypotension * resume as needed * systolic running 80s to 110s * holding bp meds (6) Type 2 diabetes mellitus: Code(s): E11.9 - Type 2 diabetes mellitus without complications Status: Chronic Assessment and Plan: * follow accu-cheks * glycemic control per hospitalist Subjective Date/time seen: 09/05/24 12:02 Interval history: Bubba feels okay. He is up in a chair watching TV and also watching a YouTube video on his phone. No chest pain or shortness of breath Exam Narrative: General: WD/WN male in NAD; on mechanical ventilation Heart: normal S1 and S2; no rub Lungs: coarse upper airway noise with decreased breath sounds at bases Abdomen: soft, nontender but mild distension, positive bowel sounds Extremities: trace - 1+ edema in UEs and LEs Skin: no rash Objective Data Vital Signs Vital Signs: Vital Signs - 24 hr 09/04/24 12:15 09/04/24 12:30 09/04/24 12:45 Temperature Pulse Rate 84 81 78 Respiratory Rate Blood Pressure 127/77 128/79 117/70 Pulse Oximetry Oxygen Delivery Oxygen Flow Rate Fraction of Inspired Oxygen 09/04/24 13:00 09/04/24 13:15 09/04/24 13:30 Temperature Pulse Rate 79 88 87 Respiratory Rate Blood Pressure 112/64 122/79 117/76 Pulse Oximetry Oxygen Delivery Oxygen Flow Rate Fraction of Inspired Oxygen 09/04/24 13:45 09/04/24 13:55 09/04/24 14:00 Temperature Pulse Rate 91 87 84 Respiratory Rate Blood Pressure 116/71 115/76 Pulse Oximetry Oxygen Delivery Oxygen Flow Rate Fraction of Inspired Oxygen 09/04/24 14:00 09/04/24 14:27 09/04/24 14:27 Temperature Pulse Rate 86 84 84 Respiratory Rate 23 H 19 19 Blood Pressure 118/72 Pulse Oximetry 100 100 Oxygen Delivery High Flow Therapy with Tr Oxygen Flow Rate 20 Fraction of Inspired Oxygen 35 09/04/24 14:30 09/04/24 14:42 09/04/24 16:00 Temperature 98.6 F Pulse Rate 86 90 Respiratory Rate 25 H 26 H Blood Pressure 90/65 L Pulse Oximetry 100 92 Oxygen Delivery High Flow Therapy with Tr Oxygen Flow Rate 20 Fraction of Inspired Oxygen 30 09/04/24 16:00 09/04/24 16:00 09/04/24 16:47 Temperature 97.4 F L Pulse Rate 82 72 86 Respiratory Rate 20 20 Blood Pressure 98/63 L Pulse Oximetry 90 94 Oxygen Delivery High Flow Therapy with Tr Oxygen Flow Rate 20 Fraction of Inspired Oxygen 30 09/04/24 18:00 09/04/24 18:00 09/04/24 20:00 Temperature 98.4 F Pulse Rate 85 85 85 Respiratory Rate 21 H 23 H Blood Pressure 112/67 83/70 L Pulse Oximetry 90 90 Oxygen Delivery Oxygen Flow Rate Fraction of Inspired Oxygen 09/04/24 20:00 09/04/24 20:00 09/04/24 20:17 Temperature Pulse Rate 85 83 Respiratory Rate 18 Blood Pressure Pulse Oximetry 98 95 Oxygen Delivery High Flow Therapy with Tr High Flow Therapy with Tr Oxygen Flow Rate 20 20 Fraction of Inspired Oxygen 30 30 09/04/24 20:17 09/04/24 20:30 09/04/24 22:00 Temperature Pulse Rate 83 83 77 Respiratory Rate 18 18 Blood Pressure Pulse Oximetry Oxygen Delivery Oxygen Flow Rate Fraction of Inspired Oxygen 09/04/24 22:00 09/05/24 00:00 09/05/24 00:00 Temperature 98.5 F 98.6 F Pulse Rate 78 73 Respiratory Rate 20 20 Blood Pressure 112/66 93/60 L Pulse Oximetry 100 97 99 Oxygen Delivery High Flow Therapy with Tr Oxygen Flow Rate 20 Fraction of Inspired Oxygen 30 09/05/24 00:00 09/05/24 01:57 09/05/24 02:00 Temperature Pulse Rate 77 84 85 Respiratory Rate 22 H 23 H Blood Pressure 113/80 Pulse Oximetry 99 Oxygen Delivery Oxygen Flow Rate Fraction of Inspired Oxygen 09/05/24 02:00 09/05/24 02:09 09/05/24 02:15 Temperature Pulse Rate 86 84 83 Respiratory Rate 22 H Blood Pressure Pulse Oximetry 92 Oxygen Delivery Mechanical Ventilation Oxygen Flow Rate Fraction of Inspired Oxygen 35 09/05/24 04:00 09/05/24 04:00 09/05/24 04:00 Temperature 98.4 F Pulse Rate 75 Respiratory Rate 19 Blood Pressure 106/62 Pulse Oximetry 94 100 Oxygen Delivery Mechanical Ventilation Oxygen Flow Rate Fraction of Inspired Oxygen 35 35 09/05/24 04:00 09/05/24 05:25 09/05/24 06:00 Temperature Pulse Rate 79 83 82 Respiratory Rate Blood Pressure Pulse Oximetry 92 Oxygen Delivery Mechanical Ventilation Oxygen Flow Rate Fraction of Inspired Oxygen 35 09/05/24 06:00 09/05/24 07:30 09/05/24 07:30 Temperature Pulse Rate 67 72 72 Respiratory Rate 16 20 Blood Pressure 110/65 Pulse Oximetry 96 97 Oxygen Delivery Mechanical Ventilation Oxygen Flow Rate Fraction of Inspired Oxygen 35 09/05/24 07:55 09/05/24 08:00 09/05/24 08:00 Temperature Pulse Rate 79 Respiratory Rate 12 Blood Pressure Pulse Oximetry 86 L 93 Oxygen Delivery High Flow Therapy with Tr High Flow Therapy with Tr Oxygen Flow Rate 20 20 Fraction of Inspired Oxygen 30 50 09/05/24 08:00 09/05/24 08:00 09/05/24 08:00 Temperature 98.4 F Pulse Rate 78 78 Respiratory Rate 14 Blood Pressure 108/57 L Pulse Oximetry 92 92 Oxygen Delivery High Flow Therapy with Tr Oxygen Flow Rate 20 Fraction of Inspired Oxygen 50 09/05/24 10:00 09/05/24 10:00 09/05/24 10:25 Temperature Pulse Rate 83 86 Respiratory Rate 20 Blood Pressure 101/53 L Pulse Oximetry 99 98 Oxygen Delivery High Flow Therapy with Tr Oxygen Flow Rate 20 Fraction of Inspired Oxygen 50 Intake/Output Intake/Output: Intake & Output 09/02/24 09/03/24 09/04/24 09/05/24 23:59 23:59 23:59 23:59 Intake Total 1437 1941 1036.8 500 Output Total 3000 3460 Balance -1563 1941 -2423.2 500 Meds/Results Medications: Active Medications Generic Name Dose Route Start Last Admin Trade Name Freq PRN Reason Stop Dose Admin Acetaminophen 650 mg 08/27/24 15:58 09/03/24 13:01 Acetaminophen 325 Mg Tablet PO 650 mg Q4H PRN Administration Mild Pain (1-3) or Fever Albuterol/Ipratropium 3 ml 09/02/24 02:00 09/05/24 07:30 Ipratropium 0.5 Mg/Albuterol Sulfate 2.5 Mg Ampul.Neb 3 Ml INHALATION 3 ml Q6HRT ISELA Administration Apixaban 10 mg 09/01/24 10:40 09/05/24 09:21 Apixaban 5 Mg Tablet PO 09/07/24 21:01 10 mg Q12HR ISELA Administration Apixaban 5 mg 09/08/24 09:00 Apixaban 5 Mg Tablet PO Q12HR ISELA Dextrose 12.5 gm 08/27/24 23:31 08/30/24 07:50 Dextrose 50% 25 Gm/50 Ml Syringe IV PUSH 12.5 gm PRN PRN Administration Hypoglycemia Protocol Glucagon 1 mg 08/27/24 23:31 Glucagon For Inj 1 Mg Vial IM PRN PRN Hypoglycemia Protocol Glucose 15 gm 08/27/24 23:31 Glucose Oral Gel 15 Gm Of Glucse In 37.5 Gm Tube PO PRN PRN Hypoglycemia Protocol Dextrose 1,000 mls @ 100 mls/hr 08/27/24 23:31 Dextrose 5% 1,000 Ml IVPB PRN PRN Hypoglycemia Protocol Albumin Human 50 mls @ 999 mls/hr 08/28/24 01:42 08/28/24 12:30 Albutein IVPB 09/27/24 01:41 Infused Q10M PRN Infusion HYPOTENSION Piperacillin Sod/Tazobactam Sod 2.25 gm in 50 mls @ 100 mls/hr 09/04/24 21:00 09/05/24 10:20 Zosyn 2.25 Gm/Ns 50 Ml IVPB 09/06/24 20:59 Infused Q6H ISELA Infusion Levothyroxine Sodium 75 mcg 08/28/24 06:30 09/05/24 05:18 Levothyroxine Sodium 75 Mcg Tablet PO 75 mcg DAILY@0630 ISELA Administration Levothyroxine Sodium 100 mcg 08/28/24 06:30 09/05/24 05:18 Levothyroxine Sodium 100 Mcg Tablet PO 100 mcg DAILY@0630 ISELA Administration Midodrine 10 mg 08/29/24 08:00 09/05/24 09:22 Midodrine Hcl 10 Mg Tablet PO 10 mg TID ISELA Administration Pravastatin Sodium 40 mg 08/28/24 09:00 09/05/24 09:22 Pravastatin Sodium 20 Mg Tablet PO 40 mg DAILY ISELA Administration Sevelamer Carbonate 1,600 mg 09/05/24 12:00 Sevelamer Carbonate 800 Mg Tablet PO TIDWM [facility] Radiology Results: ITS Impressions Abdomen X-Ray 08/30/24 09:26 IMPRESSION: 1: NG tube coiled in the stomach. Venous Doppler Study 08/30/24 10:40 IMPRESSION: 1. Bilateral below the knee deep venous thrombosis in the peroneal veins. Findings were discussed with Annabel Macedo, the nurse caring for the patient, at 10:49 AM. Chest CTA 09/02/24 08:13 Impression: No evidence of pulmonary embolus, aortic dissection, or aortic aneurysm. Moderate right pleural effusion and small left pleural effusion. Bibasilar atelectasis and mild pulmonary edema. Chest X-Ray 09/05/24 08:06 IMPRESSION: No significant change from previous examination. Labs Labs: Laboratory Results - last 24 hr 09/04/24 09/04/24 09/05/24 16:43 23:22 03:48 WBC 6.8 RBC 2.88 L Hgb 9.7 L Hct 32.7 L MCV 113.5 H MCH 33.7 MCHC 29.7 L RDW 15.0 H Plt Count 128 L MPV 11.1 H % Immature Plt Fraction 5.8 Sodium 140 Potassium 3.8 Chloride 98 Carbon Dioxide 30 Anion Gap 12 BUN 32 H D Creatinine 4.03 H Estim Creat Clear Calc 21 Estimated GFR 15 L Glucose 104 POC Capillary Glucose 125 H 105 Calcium 8.7 Magnesium 2.3 Total Bilirubin 0.7 AST 21 ALT 11 Alkaline Phosphatase 64 Total Protein 7.0 Albumin 4.0
[2024-09-05] MEDS: SEVELAMER CARBONATE 800 MG TABLET 1600 MG PO ×2 (12:24→16:35)
--- NOTE | 2024-09-05 13:20 | PM.IMPN ---
Progress Note: A&P Assessment and Plan (1) Acute on chronic respiratory failure with hypoxia and hypercapnia: Code(s): J96.21 - Acute and chronic respiratory failure with hypoxia; J96.22 - Acute and chronic respiratory failure with hypercapnia Status: Acute Assessment and Plan: Acute on chronic respiratory failure secondary to pulmonary edema and possible pneumonia, obesity hypoventilation, chronic respiratory failure secondary to laryngeal cancer status post laryngectomy and laryngeal tube placement Patient had laryngeal tube which could be attached to ventilator BiPAP and emergent ET tube was inserted through the laryngeal tube to secure airway and placed on mechanical ventilation. 08/31/2024 laryngeal 2 was switched to cuffed tracheostomy tube by ENT size 8 Neel. Delete that CTA 4 with no evidence of PE aortic dissection or aortic aneurysm. Moderate right pleural effusion and small left pleural effusion bibasilar atelectasis and mild pulmonary edema Wean FiO2 down on PSV trial per cost reduction engineer He is on empiric antibiotic therapy for pneumonia - see below (2) Hypotension: Code(s): I95.9 - Hypotension, unspecified Status: Acute Assessment and Plan: Hypotension could be secondary to hypoxia and acidosis as blood pressure is now improving after patient has been placed on mechanical ventilation. 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 - Tracheostomy status Status: Acute Assessment and Plan: See above (6) End-stage renal disease on hemodialysis: Code(s): N18.6 - End stage renal disease; Z99.2 - Dependence on renal dialysis Status: Acute Assessment and Plan: On hemodialysis as scheduled (7) Pulmonary edema: Qualifiers: Chronicity: acute Qualified Code(s): J81.0 - Acute pulmonary edema Code(s): J81.1 - Chronic pulmonary edema Status: Acute Assessment and Plan: See above (8) Generalized edema: Code(s): R60.1 - Generalized edema Status: Acute Assessment and Plan: See above (9) Sepsis: Code(s): A41.9 - Sepsis, unspecified organism Status: Acute Assessment and Plan: Resulted from community-acquired pneumonia considering lung infiltrates on chest x-ray sputum culture is growing Pseudomonas which is pansensitive MRSA screen was negative there is a possibility of him aspirating since he has been eating Continue Zosyn (10) DVT (deep venous thrombosis): Code(s): I82.409 - Acute embolism and thrombosis of unspecified deep veins of unspecified lower extremity Status: Acute Assessment and Plan: Lower extremity Dopplers done on 08/30 showed Bilateral below the knee deep venous thrombosis in the peroneal veins. CTA with no PE aortic dissection or AA aortic aneurysm 09/02 Patient is on anticoagulation Echocardiogram showed 1. Left ventricular chamber dimension is normal. 2. Left ventricular systolic function is normal, estimated at 50-55%. 3. There is mildly increased left ventricular wall thickness. 4. The left ventricular diastolic function is grade I diastolic dysfunction. 5. Right ventricular chamber dimension is moderately enlarged. 6. Right ventricular systolic function is reduced. 7. Right atrial chamber dimension is moderately enlarged. 8. There is mild mitral valve regurgitation. 9. There is moderate tricuspid valve regurgitation. 10. Estimated pulmonary arterial systolic pressure is 57 mmHg. 11. Dilated inferior vena cava with no collapse upon inspiration consistent with elevated right atrial pressure, 15 mmHg. Plan DVT prophylaxis -Eliquis Stress ulcer prophylaxis -PPI Nutrition -oral diet Code Status - Full Code Subjective Date/time seen: 09/05/24 13:20 Interval history: No overnight events. No chest pain or shortness of breath. Patient was started on a diet Review of Systems Review of Systems: All systems reviewed & are unremarkable except as noted in HPI and below Exam Narrative: General: Pt is well-appearing gentleman who appears older than his age. He is awake follows command and is in no distress Lungs/Chest: Decreased bilateral breath sounds overall occasional crackles and decreased breath sound at bases, Cardiac: RRR. Normal S1 S2. No murmurs Circulation: Feet are well Abdomen: Decreased bowel sounds. Morbid Obese. Soft. NT. ND. Extremities: Bilateral pitting edema present chronic venous stasis present patient is missing his right great toe from past amputation : Hay in place Neurologic: Awake follows commands with all 4 extremities PERRL Objective Data Vital Signs Vital Signs: Vital Signs - 24 hr 09/04/24 13:30 09/04/24 13:45 09/04/24 13:55 Temperature Pulse Rate 87 91 87 Respiratory Rate Blood Pressure 117/76 116/71 115/76 Pulse Oximetry Oxygen Delivery Oxygen Flow Rate Fraction of Inspired Oxygen 09/04/24 14:00 09/04/24 14:00 09/04/24 14:27 Temperature Pulse Rate 84 86 84 Respiratory Rate 23 H 19 Blood Pressure 118/72 Pulse Oximetry 100 100 Oxygen Delivery High Flow Therapy with Tr Oxygen Flow Rate 20 Fraction of Inspired Oxygen 35 09/04/24 14:27 09/04/24 14:30 09/04/24 14:42 Temperature 98.6 F Pulse Rate 84 86 90 Respiratory Rate 19 25 H 26 H Blood Pressure 90/65 L Pulse Oximetry 100 Oxygen Delivery Oxygen Flow Rate Fraction of Inspired Oxygen 09/04/24 16:00 09/04/24 16:00 09/04/24 16:00 Temperature 97.4 F L Pulse Rate 82 72 Respiratory Rate 20 Blood Pressure 98/63 L Pulse Oximetry 92 90 Oxygen Delivery High Flow Therapy with Tr Oxygen Flow Rate 20 Fraction of Inspired Oxygen 30 09/04/24 16:47 09/04/24 18:00 09/04/24 18:00 Temperature Pulse Rate 86 85 85 Respiratory Rate 20 21 H Blood Pressure 112/67 Pulse Oximetry 94 90 Oxygen Delivery High Flow Therapy with Tr Oxygen Flow Rate 20 Fraction of Inspired Oxygen 30 09/04/24 20:00 09/04/24 20:00 09/04/24 20:00 Temperature 98.4 F Pulse Rate 85 85 Respiratory Rate 23 H Blood Pressure 83/70 L Pulse Oximetry 90 98 Oxygen Delivery High Flow Therapy with Tr Oxygen Flow Rate 20 Fraction of Inspired Oxygen 30 09/04/24 20:17 09/04/24 20:17 09/04/24 20:30 Temperature Pulse Rate 83 83 83 Respiratory Rate 18 18 18 Blood Pressure Pulse Oximetry 95 Oxygen Delivery High Flow Therapy with Tr Oxygen Flow Rate 20 Fraction of Inspired Oxygen 30 09/04/24 22:00 09/04/24 22:00 09/05/24 00:00 Temperature 98.5 F 98.6 F Pulse Rate 77 78 73 Respiratory Rate 20 20 Blood Pressure 112/66 93/60 L Pulse Oximetry 100 97 Oxygen Delivery Oxygen Flow Rate Fraction of Inspired Oxygen 09/05/24 00:00 09/05/24 00:00 09/05/24 01:57 Temperature Pulse Rate 77 84 Respiratory Rate 22 H Blood Pressure Pulse Oximetry 99 Oxygen Delivery High Flow Therapy with Tr Oxygen Flow Rate 20 Fraction of Inspired Oxygen 30 09/05/24 02:00 09/05/24 02:00 09/05/24 02:09 Temperature Pulse Rate 85 86 84 Respiratory Rate 23 H 22 H Blood Pressure 113/80 Pulse Oximetry 99 Oxygen Delivery Oxygen Flow Rate Fraction of Inspired Oxygen 09/05/24 02:15 09/05/24 04:00 09/05/24 04:00 Temperature 98.4 F Pulse Rate 83 75 Respiratory Rate 19 Blood Pressure 106/62 Pulse Oximetry 92 94 100 Oxygen Delivery Mechanical Ventilation Mechanical Ventilation Oxygen Flow Rate Fraction of Inspired Oxygen 35 35 09/05/24 04:00 09/05/24 04:00 09/05/24 05:25 Temperature Pulse Rate 79 83 Respiratory Rate Blood Pressure Pulse Oximetry 92 Oxygen Delivery Mechanical Ventilation Oxygen Flow Rate Fraction of Inspired Oxygen 35 35 09/05/24 06:00 09/05/24 06:00 09/05/24 07:30 Temperature Pulse Rate 82 67 72 Respiratory Rate 16 Blood Pressure 110/65 Pulse Oximetry 96 97 Oxygen Delivery Mechanical Ventilation Oxygen Flow Rate Fraction of Inspired Oxygen 35 09/05/24 07:30 09/05/24 07:55 09/05/24 08:00 Temperature Pulse Rate 72 Respiratory Rate 20 Blood Pressure Pulse Oximetry 86 L 93 Oxygen Delivery High Flow Therapy with Tr High Flow Therapy with Tr Oxygen Flow Rate 20 20 Fraction of Inspired Oxygen 30 50 09/05/24 08:00 09/05/24 08:00 09/05/24 08:00 Temperature 98.4 F Pulse Rate 79 78 Respiratory Rate 12 14 Blood Pressure 108/57 L Pulse Oximetry 92 92 Oxygen Delivery High Flow Therapy with Tr Oxygen Flow Rate 20 Fraction of Inspired Oxygen 50 09/05/24 08:00 09/05/24 10:00 09/05/24 10:00 Temperature Pulse Rate 78 83 86 Respiratory Rate 20 Blood Pressure 101/53 L Pulse Oximetry 99 Oxygen Delivery Oxygen Flow Rate Fraction of Inspired Oxygen 09/05/24 10:25 09/05/24 12:00 09/05/24 12:00 Temperature 98.4 F Pulse Rate 77 Respiratory Rate 16 Blood Pressure 104/56 L Pulse Oximetry 98 95 95 Oxygen Delivery High Flow Therapy with Tr High Flow Therapy with Tr Oxygen Flow Rate 20 20 Fraction of Inspired Oxygen 50 35 04/06/25 12:00 Temperature Pulse Rate 78 Respiratory Rate Blood Pressure Pulse Oximetry Oxygen Delivery Oxygen Flow Rate Fraction of Inspired Oxygen Intake/Output Intake/Output: Intake & Output 09/02/24 09/03/24 09/04/24 09/05/24 23:59 23:59 23:59 23:59 Intake Total 1437 1941 1036.8 500 Output Total 3000 3460 Balance -1563 1941 -2423.2 500 Meds/Results Medications: Active Medications Generic Name Dose Route Start Last Admin Trade Name Freq PRN Reason Stop Dose Admin Acetaminophen 650 mg 08/27/24 15:58 09/03/24 13:01 Acetaminophen 325 Mg Tablet PO 650 mg Q4H PRN Administration Mild Pain (1-3) or Fever Albuterol/Ipratropium 3 ml 09/02/24 02:00 09/05/24 07:30 Ipratropium 0.5 Mg/Albuterol Sulfate 2.5 Mg Ampul.Neb 3 Ml INHALATION 3 ml Q6HRT ISELA Administration Apixaban 10 mg 09/01/24 10:40 09/05/24 09:21 Apixaban 5 Mg Tablet PO 09/07/24 21:01 10 mg Q12HR ISELA Administration Apixaban 5 mg 09/08/24 09:00 Apixaban 5 Mg Tablet PO Q12HR ISELA Dextrose 12.5 gm 08/27/24 23:31 08/30/24 07:50 Dextrose 50% 25 Gm/50 Ml Syringe IV PUSH 12.5 gm PRN PRN Administration Hypoglycemia Protocol Glucagon 1 mg 08/27/24 23:31 Glucagon For Inj 1 Mg Vial IM PRN PRN Hypoglycemia Protocol Glucose 15 gm 08/27/24 23:31 Glucose Oral Gel 15 Gm Of Glucse In 37.5 Gm Tube PO PRN PRN Hypoglycemia Protocol Dextrose 1,000 mls @ 100 mls/hr 08/27/24 23:31 Dextrose 5% 1,000 Ml IVPB PRN PRN Hypoglycemia Protocol Albumin Human 50 mls @ 999 mls/hr 08/28/24 01:42 08/28/24 12:30 Albutein IVPB 09/27/24 01:41 Infused Q10M PRN Infusion HYPOTENSION Piperacillin Sod/Tazobactam Sod 2.25 gm in 50 mls @ 100 mls/hr 09/04/24 21:00 09/05/24 10:20 Zosyn 2.25 Gm/Ns 50 Ml IVPB 09/06/24 20:59 Infused Q6H ISELA Infusion Levothyroxine Sodium 75 mcg 08/28/24 06:30 09/05/24 05:18 Levothyroxine Sodium 75 Mcg Tablet PO 75 mcg DAILY@0630 ISELA Administration Levothyroxine Sodium 100 mcg 08/28/24 06:30 09/05/24 05:18 Levothyroxine Sodium 100 Mcg Tablet PO 100 mcg DAILY@0630 ISELA Administration Midodrine 10 mg 08/29/24 08:00 09/05/24 12:24 Midodrine Hcl 10 Mg Tablet PO 10 mg TID ISELA Administration Pravastatin Sodium 40 mg 08/28/24 09:00 09/05/24 09:22 Pravastatin Sodium 20 Mg Tablet PO 40 mg DAILY ISELA Administration Sevelamer Carbonate 1,600 mg 09/05/24 12:00 09/05/24 12:24 Sevelamer Carbonate 800 Mg Tablet PO 1,600 mg TIDWM ISELA Administration Radiology Results: ITS Impressions Abdomen X-Ray 08/30/24 09:26 IMPRESSION: 1: NG tube coiled in the stomach. Venous Doppler Study 08/30/24 10:40 IMPRESSION: 1. Bilateral below the knee deep venous thrombosis in the peroneal veins. Findings were discussed with Annabel Macedo, the nurse caring for the patient, at 10:49 AM. Chest CTA 09/02/24 08:13 Impression: No evidence of pulmonary embolus, aortic dissection, or aortic aneurysm. Moderate right pleural effusion and small left pleural effusion. Bibasilar atelectasis and mild pulmonary edema. Chest X-Ray 09/05/24 08:06 IMPRESSION: No significant change from previous examination. Labs Labs: Laboratory Results - last 24 hr 09/04/24 09/04/24 09/05/24 16:43 23:22 03:48 WBC 6.8 RBC 2.88 L Hgb 9.7 L Hct 32.7 L MCV 113.5 H MCH 33.7 MCHC 29.7 L RDW 15.0 H Plt Count 128 L MPV 11.1 H % Immature Plt Fraction 5.8 Sodium 140 Potassium 3.8 Chloride 98 Carbon Dioxide 30 Anion Gap 12 BUN 32 H D Creatinine 4.03 H Estim Creat Clear Calc 21 Estimated GFR 15 L Glucose 104 POC Capillary Glucose 125 H 105 Calcium 8.7 Magnesium 2.3 Total Bilirubin 0.7 AST 21 ALT 11 Alkaline Phosphatase 64 Total Protein 7.0 Albumin 4.0
[2024-09-06] VITALS (25 sets, daily range): BP systolic 85–130; BP diastolic 54–79; PULSE 72–87; RESP 15–22; TEMP 36.1–37; O2SAT 85–98
[2024-09-06] MEDS: IPRATROPIUM 0.5 MG/ALBUTEROL SULFATE 2.5 MG AMPUL.NEB 3 ML INHALATION ×4 (02:25→20:07)
[2024-09-06] MEDS: PIPERACILLIN/TAZ 2.25G/NS 50ML 2.25 GM/50 ML BAG IVPB ×3 (03:23→14:10)
[2024-09-06 04:02] LABS: Hematocrit 34.3 % (42.0-52.0); Mean Corpuscular HGB Conc 29.2 g/dl (32-36); Mean Corpuscular Hemoglobin 33.4 pg (26-34); Mean Corpuscular Volume 114.7 fl (80-100); Mean Platelet Volume 11.1 fl (7.4-10.4); Platelet Count Result 116 k/mm3 (150-375); Red Blood Count 2.99 M/mm3 (4.6-6.20); Red Cell Distribution Width 15.1 % (11.5-14.5); White Blood Count 6.7 K/mm3 (4.5-10.0)
[2024-09-06 04:12] LABS: Alanine Aminotransferase 11 U/L (6-50); Alkaline Phosphatase 65 U/L (38-126); Anion Gap 11 mmol/L (4-12); Aspartate Amino Transferase 17 U/L (17-59); Bilirubin,Total 0.7 mg/dL (0.2-1.3); Blood Urea Nitrogen 39 mg/dL (9-20); Calcium 8.6 mg/dL (8.4-10.2); Carbon Dioxide 28 mmol/L (22-30); Chloride 99 mmol/L (98-107); Estimated CRCL calculation 17 ml/min; Estimated Glomerular Filt Rate 12; Glucose 77 mg/dL (65-110); Magnesium 2.3 mg/dL (1.6-2.3); Potassium 3.8 mmol/L (3.4-5.0); Sodium 138 mmol/L (137-145)
[2024-09-06] MEDS: LEVOTHYROXINE SODIUM 75 MCG TABLET PO (06:28)
[2024-09-06] MEDS: LEVOTHYROXINE SODIUM 100 MCG TABLET PO (06:28)
[2024-09-06] MEDS: MIDODRINE HCL 10 MG TABLET PO ×3 (08:13→17:30)
[2024-09-06] MEDS: APIXABAN 5 MG TABLET 10 MG PO ×2 (08:13→20:32)
[2024-09-06] MEDS: PRAVASTATIN SODIUM 20 MG TABLET 40 MG PO (08:13)
[2024-09-06] MEDS: SEVELAMER CARBONATE 800 MG TABLET 1600 MG PO ×3 (08:13→17:30)
--- NOTE | 2024-09-06 08:28 | WPDINTPN ---
Progress Note: A&P Assessment and Plan (1) Acute on chronic respiratory failure with hypoxia and hypercapnia: Code(s): J96.21 - Acute and chronic respiratory failure with hypoxia; J96.22 - Acute and chronic respiratory failure with hypercapnia Status: Acute Assessment and Plan: Acute on chronic respiratory failure secondary to pulmonary edema and possible pneumonia, obesity hypoventilation, chronic respiratory failure secondary to laryngeal cancer status post laryngectomy and laryngeal tube placement 08/29 His laryngeal tube cannot be attached to ventilator or BiPAP. An emergent ET tube was inserted through the laryngeal tube to secure airway and attached to mechanical ventilation Due to small size of airway we are having high pressures and gradually increasing mechanical ventilation 08/31 laryngeal tube was switched to a cuffed tracheostomy tube by ENT physician. Size 8 Shiley ABG reviewed CTA chest09/02 No evidence of pulmonary embolus, aortic dissection, or aortic aneurysm. Moderate right pleural effusion and small left pleural effusion. Bibasilar atelectasis and mild pulmonary edema. Patient was on Airvo yesterday today and off PSV Continue to wean FiO2 Continue fluid removed with dialysis He is on empiric antibiotic therapy for pneumonia - see below (2) Hypotension: Code(s): I95.9 - Hypotension, unspecified Status: Acute Assessment and Plan: 1 admission to ICU patient was hypotensive and has been started on Levophed. Patient does have history of hypertension and was on antihypertensive medications. Hypotension could be secondary to hypoxia and acidosis as blood pressure is now improving after patient has been placed on mechanical ventilation. Since he is already volume overloaded he has been started on Levophed to maintain mean arterial pressure to be able to dialyze patient There is also a possibility of sepsis although patient has been afebrile with normal WBC count. 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 - Tracheostomy status Status: Acute Assessment and Plan: See above (6) End-stage renal disease on hemodialysis: Code(s): N18.6 - End stage renal disease; Z99.2 - Dependence on renal dialysis Status: Acute Assessment and Plan: Patient was dialyzed yesterday (7) Pulmonary edema: Qualifiers: Chronicity: acute Qualified Code(s): J81.0 - Acute pulmonary edema Code(s): J81.1 - Chronic pulmonary edema Status: Acute Assessment and Plan: See above (8) Generalized edema: Code(s): R60.1 - Generalized edema Status: Acute Assessment and Plan: See above (9) Sepsis: Code(s): A41.9 - Sepsis, unspecified organism Status: Acute Assessment and Plan: Although patient is afebrile and has had normal WBC. He was started on antibiotics for community-acquired pneumonia considering lung infiltrates on chest x-ray Pneumonia appears to be less likely from clinical picture. His procalcitonin level was low. He sputum culture is growing Pseudomonas which is pansensitive MRSA screen was negative there is a possibility of him aspirating since he has been eating Continue Zosyn for 7 day course (10) DVT (deep venous thrombosis): Code(s): I82.409 - Acute embolism and thrombosis of unspecified deep veins of unspecified lower extremity Status: Acute Assessment and Plan: Lower extremity Dopplers done on 08/30 showed Bilateral below the knee deep venous thrombosis in the peroneal veins. Findings were discussed with Annaebl Macedo, the nurse caring for the patient, at 10:49 AM. Patient is bedridden and ventilator dependent and high risk of further worsening of DVT. Patient has been started on heparin infusion and has been tolerating. I do not anticipate any procedures at this time and side will start him on Eliquis A CTA of the chest was not done imaging to rule out PE as when I saw the patient patient was already getting dialyzed. It will also not change management manager at this point as patient is already on anticoagulation. Patient is getting CTA today and will get dialyzed after that Continue Eliquis Echo Summary 1. Left ventricular chamber dimension is normal. 2. Left ventricular systolic function is normal, estimated at 50-55%. 3. There is mildly increased left ventricular wall thickness. 4. The left ventricular diastolic function is grade I diastolic dysfunction. 5. Right ventricular chamber dimension is moderately enlarged. 6. Right ventricular systolic function is reduced. 7. Right atrial chamber dimension is moderately enlarged. 8. There is mild mitral valve regurgitation. 9. There is moderate tricuspid valve regurgitation. 10. Estimated pulmonary arterial systolic pressure is 57 mmHg. 11. Dilated inferior vena cava with no collapse upon inspiration consistent with elevated right atrial pressure, 15 mmHg. Plan DVT prophylaxis -Eliquis Stress ulcer prophylaxis -PPI Nutrition -diet ordered Code Status - Full Code Consult PT OT Up in chair Will discuss with care coordination regarding starting process for rehab placement Total Critical Care Time - 30 minutes Due to a high probability of clinically significant, life threatening deterioration, the patient required my highest level of preparedness to intervene emergently and I personally spent this critical care time directly and personally managing the patient. This critical care time included obtaining a history; examining the patient; pulse oximetry; ordering and review of studies; arranging urgent treatment with development of a management plan; evaluation of patient's response to treatment; frequent reassessment; and discussions with other providers. It was exclusive of separately billable procedures and treating other patients and teaching time. Please see Assessment and Plan section and the rest of the note for further information on patient assessment and treatment Subjective Date/time seen: 09/06/24 Patient sitting in a chair on Airvo at 45% FiO2 and 20 L flow. He did not had to use positive pressure ventilation overnight. He is eating his breakfast without difficulty. Denies any complaints. Statin chair yesterday and work with therapy. Afebrile Other vitals stable although he still has significant oxygen requirement Review of Systems Review of Systems: ROS unobtainable: Yes unobtainable due to endotracheal tube Exam Narrative: General: Pt is ill-appearing gentleman who appears older than his age. He is awake follows command and is in no distress Lungs/Chest: Decreased bilateral breath sounds overall occasional crackles and decreased breath sound at bases, Cardiac: RRR. Normal S1 S2. No murmurs Circulation: Feet are well Abdomen: Decreased bowel sounds. Morbid Obese. Soft. NT. ND. 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 : Hay in place Neurologic: Awake follows commands with all 4 extremities PERRL Objective Data Vital Signs Vital Signs: Vital Signs - 24 hr 09/05/24 10:00 09/05/24 10:00 09/05/24 10:25 Temperature Pulse Rate 83 86 Respiratory Rate 20 Blood Pressure 101/53 L Pulse Oximetry 99 98 Oxygen Delivery High Flow Therapy with Tr Oxygen Flow Rate 20 Fraction of Inspired Oxygen 50 09/05/24 12:00 09/05/24 12:00 09/05/24 12:00 Temperature 36.9 C Pulse Rate 77 78 Respiratory Rate 16 Blood Pressure 104/56 L Pulse Oximetry 95 95 Oxygen Delivery High Flow Therapy with Tr Oxygen Flow Rate 20 Fraction of Inspired Oxygen 35 09/05/24 14:00 09/05/24 14:00 09/05/24 14:08 Temperature Pulse Rate 79 79 Respiratory Rate 20 Blood Pressure 111/72 Pulse Oximetry 98 95 Oxygen Delivery High Flow Therapy with Tr Oxygen Flow Rate 20 Fraction of Inspired Oxygen 35 09/05/24 14:08 09/05/24 14:19 09/05/24 14:19 Temperature Pulse Rate 77 73 Respiratory Rate 16 18 Blood Pressure Pulse Oximetry 100 Oxygen Delivery Trach Collar Oxygen Flow Rate 8 Fraction of Inspired Oxygen 35 09/05/24 14:31 09/05/24 16:00 09/05/24 16:00 Temperature 36.9 C Pulse Rate 72 Respiratory Rate 18 Blood Pressure 116/70 Pulse Oximetry 100 96 98 Oxygen Delivery Trach Collar Trach Collar Oxygen Flow Rate 8 8 Fraction of Inspired Oxygen 35 35 09/05/24 16:00 09/05/24 16:57 09/05/24 18:00 Temperature Pulse Rate 74 79 Respiratory Rate Blood Pressure Pulse Oximetry 99 Oxygen Delivery Trach Collar Oxygen Flow Rate 8 Fraction of Inspired Oxygen 35 09/05/24 18:00 09/05/24 20:00 09/05/24 20:00 Temperature Pulse Rate 79 82 Respiratory Rate 16 Blood Pressure 116/73 Pulse Oximetry 99 100 Oxygen Delivery Trach Collar Oxygen Flow Rate 8 Fraction of Inspired Oxygen 35 09/05/24 20:00 09/05/24 20:05 09/05/24 20:05 Temperature 36.8 C Pulse Rate 80 82 Respiratory Rate 21 H 22 H Blood Pressure 126/84 Pulse Oximetry 100 96 Oxygen Delivery Trach Collar Oxygen Flow Rate 8 Fraction of Inspired Oxygen 35 09/05/24 20:15 09/05/24 22:00 09/05/24 22:00 Temperature Pulse Rate 80 83 83 Respiratory Rate 20 17 Blood Pressure 100/64 Pulse Oximetry 96 Oxygen Delivery Oxygen Flow Rate Fraction of Inspired Oxygen 09/06/24 00:00 09/06/24 00:00 09/06/24 00:00 Temperature 36.5 C Pulse Rate 79 79 Respiratory Rate 22 H Blood Pressure 114/68 Pulse Oximetry 97 97 Oxygen Delivery Trach Collar Oxygen Flow Rate 8 Fraction of Inspired Oxygen 35 09/06/24 02:10 09/06/24 02:22 09/06/24 02:22 Temperature Pulse Rate 79 81 Respiratory Rate 15 Blood Pressure 110/68 Pulse Oximetry 85 L 91 Oxygen Delivery Trach Collar Oxygen Flow Rate 12 Fraction of Inspired Oxygen 35 09/06/24 02:25 09/06/24 02:32 09/06/24 02:33 Temperature Pulse Rate 80 81 Respiratory Rate 19 16 Blood Pressure Pulse Oximetry 94 Oxygen Delivery High Flow Therapy with Tr Oxygen Flow Rate 20 Fraction of Inspired Oxygen 35 09/06/24 04:00 09/06/24 04:00 09/06/24 04:00 Temperature 36.1 C L Pulse Rate 77 82 Respiratory Rate 20 Blood Pressure 105/64 Pulse Oximetry 89 L 89 L Oxygen Delivery High Flow Therapy with Tr Oxygen Flow Rate 20 Fraction of Inspired Oxygen 46 09/06/24 06:00 09/06/24 06:29 09/06/24 08:08 Temperature Pulse Rate 87 79 79 Respiratory Rate 19 18 Blood Pressure 85/54 L Pulse Oximetry 95 Oxygen Delivery Oxygen Flow Rate Fraction of Inspired Oxygen 09/06/24 08:18 09/06/24 08:18 Temperature Pulse Rate 78 Respiratory Rate 17 Blood Pressure Pulse Oximetry 93 Oxygen Delivery Trach Collar Oxygen Flow Rate 8 Fraction of Inspired Oxygen 35 Intake/Output Intake/Output: Intake & Output 09/03/24 09/04/24 09/05/24 09/06/24 23:59 23:59 23:59 23:59 Intake Total 1941 1036.8 1040 350 Output Total 3460 0 0 Balance 1941 -2423.2 1040 350 Meds/Results Medications: Active Medications Generic Name Dose Route Start Last Admin Trade Name Freq PRN Reason Stop Dose Admin Acetaminophen 650 mg 08/27/24 15:58 09/03/24 13:01 Acetaminophen 325 Mg Tablet PO 650 mg Q4H PRN Administration Mild Pain (1-3) or Fever Albuterol/Ipratropium 3 ml 09/02/24 02:00 09/06/24 08:04 Ipratropium 0.5 Mg/Albuterol Sulfate 2.5 Mg Ampul.Neb 3 Ml INHALATION 3 ml Q6HRT ISELA Administration Apixaban 10 mg 09/01/24 10:40 09/06/24 08:13 Apixaban 5 Mg Tablet PO 09/07/24 21:01 10 mg Q12HR ISELA Administration Apixaban 5 mg 09/08/24 09:00 Apixaban 5 Mg Tablet PO Q12HR ISELA Dextrose 12.5 gm 08/27/24 23:31 08/30/24 07:50 Dextrose 50% 25 Gm/50 Ml Syringe IV PUSH 12.5 gm PRN PRN Administration Hypoglycemia Protocol Glucagon 1 mg 08/27/24 23:31 Glucagon For Inj 1 Mg Vial IM PRN PRN Hypoglycemia Protocol Glucose 15 gm 08/27/24 23:31 Glucose Oral Gel 15 Gm Of Glucse In 37.5 Gm Tube PO PRN PRN Hypoglycemia Protocol Dextrose 1,000 mls @ 100 mls/hr 08/27/24 23:31 Dextrose 5% 1,000 Ml IVPB PRN PRN Hypoglycemia Protocol Albumin Human 50 mls @ 999 mls/hr 08/28/24 01:42 08/28/24 12:30 Albutein IVPB 09/27/24 01:41 Infused Q10M PRN Infusion HYPOTENSION Piperacillin Sod/Tazobactam Sod 2.25 gm in 50 mls @ 100 mls/hr 09/04/24 21:00 09/06/24 05:15 Zosyn 2.25 Gm/Ns 50 Ml IVPB 09/06/24 20:59 Infused Q6H ISELA Infusion Levothyroxine Sodium 75 mcg 08/28/24 06:30 09/06/24 06:28 Levothyroxine Sodium 75 Mcg Tablet PO 75 mcg DAILY@0630 ISELA Administration Levothyroxine Sodium 100 mcg 08/28/24 06:30 09/06/24 06:28 Levothyroxine Sodium 100 Mcg Tablet PO 100 mcg DAILY@0630 ISELA Administration Midodrine 10 mg 08/29/24 08:00 09/06/24 08:13 Midodrine Hcl 10 Mg Tablet PO 10 mg TID ISELA Administration Pravastatin Sodium 40 mg 08/28/24 09:00 09/06/24 08:13 Pravastatin Sodium 20 Mg Tablet PO 40 mg DAILY ISELA Administration Sevelamer Carbonate 1,600 mg 09/05/24 12:00 09/06/24 08:13 Sevelamer Carbonate 800 Mg Tablet PO 1,600 mg TIDWM ISELA Administration Radiology Results: ITS Impressions Abdomen X-Ray 08/30/24 09:26 IMPRESSION: 1: NG tube coiled in the stomach. Venous Doppler Study 08/30/24 10:40 IMPRESSION: 1. Bilateral below the knee deep venous thrombosis in the peroneal veins. Findings were discussed with Annabel Macedo, the nurse caring for the patient, at 10:49 AM. Chest CTA 09/02/24 08:13 Impression: No evidence of pulmonary embolus, aortic dissection, or aortic aneurysm. Moderate right pleural effusion and small left pleural effusion. Bibasilar atelectasis and mild pulmonary edema. Chest X-Ray 09/06/24 06:11 Impression: Moderate right pleural effusion and small left pleural effusion, with mild to moderate pulmonary edema pattern. Tracheostomy cannula. Labs Labs: Laboratory Results - last 24 hr 09/06/24 03:56 WBC 6.7 RBC 2.99 L Hgb 10.0 L Hct 34.3 L MCV 114.7 H MCH 33.4 MCHC 29.2 L RDW 15.1 H Plt Count 116 L MPV 11.1 H Sodium 138 Potassium 3.8 Chloride 99 Carbon Dioxide 28 Anion Gap 11 BUN 39 H Creatinine 5.13 H Estim Creat Clear Calc 17 Estimated GFR 12 L Glucose 77 Calcium 8.6 Phosphorus 4.0 Magnesium 2.3 Total Bilirubin 0.7 AST 17 ALT 11 Alkaline Phosphatase 65 Total Protein 7.0 Albumin 4.0 Quality VTE Prophylaxis VTE prophylaxis: mechanical ordered and pharmacologic ordered
--- NOTE | 2024-09-06 10:30 | PCFNICU ---
ICU Rounding Note: Pt current nutrition is Renal diet. Nutrition recommendation: Oral nutrition supplement: Nepro BID (420 kcal, 19 g protein) Last recorded weight is 102.6 kg. Bowel Motility: +1 Bm 09/05/24 Labs Reviewed: HGB 10, Hct 34.2, BUN 39, Cre 5.13 Meds Noted: Protonix, synthroid Skin: No skin issues Additional Notes: Trach dependent, not on vent. NG removed 09/05/24. Appetite fair with intakes 50-75%. Adding supplement. Awaiting rehab placement Following daily in ICU rounds. Monitoring TF tolerance, weights, labs, meds, plan of care Follow up Friday/Friday. Daily in rounds.
--- NOTE | 2024-09-06 11:37 | P.PNNP_ITS ---
Progress Note: A&P Assessment and Plan (1) End stage renal disease: Code(s): N18.6 - End stage renal disease Status: Chronic Assessment and Plan: * plan HD tomorrow * continue Friday//Friday dialysis schedule while hospitalized * follow electrolytes, volume status, and clearance * push fluid removal with dialysis as tolerated (2) Acute on chronic respiratory failure with hypoxia and hypercapnia: Code(s): J96.21 - Acute and chronic respiratory failure with hypoxia; J96.22 - Acute and chronic respiratory failure with hypercapnia Status: Acute Assessment and Plan: * due to several issues: * pulmonary edema * possible pneumonia * obesity hypoventilation * chronic respiratory failure secondary to laryngeal cancer status post laryngectomy and laryngeal tube placement * fluid removal with dry ultrafiltration and dialysis as tolerated by hemodynamics * antibiotic therapy for pneumonia (3) Hypotension: Code(s): I95.9 - Hypotension, unspecified Status: Acute Assessment and Plan: * resolved * noted since AM of 08/28 * worsened by administration scheduled BP medication on 08/28 as well * was asymptomatic * BP medications on hold * was on oral midodrine therapy - on hold currently * due to early sepsis?? * recent CXR with pneumonia * blood pressure doing well off vasopressors. * resume blood pressure pills back in as needed but not now (4) Pneumonia: Code(s): J18.9 - Pneumonia, unspecified organism Status: Acute Assessment and Plan: * as suggested by recent imaging * follow culture data - sputum culture noted * on antibiotic therapy (5) Hypertension: Code(s): I10 - Essential (primary) hypertension Status: Chronic Assessment and Plan: * BP medications on hold due to hypotension * resume as needed * follow trend of hemodynamics (6) Type 2 diabetes mellitus: Code(s): E11.9 - Type 2 diabetes mellitus without complications Status: Chronic Assessment and Plan: * follow accu-cheks * glycemic control per hospitalist Will continue to follow. L Subjective Date/time seen: 09/06/24 11:37 Interval history: Follow-up for end stage renal disease on hemodialysis. Chart reviewed since last seen -- overall, continues to make slow and steady progress; up to chair and working with therapy as tolerated; no apparent distress noted at the time of my visit; still requiring significant oxygen support but no respiratory distress or breathing issues noted; did not need/require ventilator support overnight. Exam 2 Narrative: General: WD/WN male in NAD Heart: normal S1 and S2; no rub Lungs: coarse and decreased breath sounds at bases Abdomen: soft, nontender but mild distension, positive bowel sounds Extremities: no cyanosis or clubbing; trace - 1+ edema in UEs and LEs Skin: no nodules Objective Data Vital Signs Vital Signs: Vital Signs Temp Pulse Resp BP Pulse Ox O2 Del Method O2 Flow Rate 09/06/24 10:52 High Flow Therapy with Tr 20 09/06/24 10:00 78 18 93/54 L 95 09/06/24 10:00 78 09/06/24 08:23 High Flow Therapy with Tr 8 09/06/24 08:18 78 17 09/06/24 08:18 93 Trach Collar 8 09/06/24 08:08 79 18 09/06/24 08:00 91 Trach Collar 8 09/06/24 08:00 80 09/06/24 08:00 78 15 92/62 L 91 09/06/24 06:29 79 19 85/54 L 95 09/06/24 06:00 87 09/06/24 04:00 97.0 F L 82 20 105/64 89 L 09/06/24 04:00 77 09/06/24 04:00 89 L High Flow Therapy with Tr 20 09/06/24 02:33 81 16 09/06/24 02:32 94 High Flow Therapy with Tr 20 09/06/24 02:25 80 19 09/06/24 02:22 81 15 110/68 91 09/06/24 02:22 79 09/06/24 02:10 85 L Trach Collar 12 09/06/24 00:00 97 Trach Collar 8 09/06/24 00:00 97.7 F 79 22 H 114/68 97 09/06/24 00:00 79 09/05/24 22:00 83 17 100/64 96 09/05/24 22:00 83 09/05/24 20:15 80 20 09/05/24 20:05 96 Trach Collar 8 09/05/24 20:05 82 22 H 09/05/24 20:00 98.3 F 80 21 H 126/84 100 09/05/24 20:00 82 09/05/24 20:00 100 Trach Collar 8 Intake/Output Intake/Output: Intake & Output 09/03/24 09/04/24 09/05/24 09/06/24 23:59 23:59 23:59 23:59 Intake Total 1941 1036.8 1040 1210 Output Total 3460 0 0 Balance 1941 -2423.2 1040 1210 Meds/Results Medications: Active Medications Generic Name Dose Route Start Last Admin Trade Name Freq PRN Reason Stop Dose Admin Acetaminophen 650 mg 08/27/24 15:58 09/03/24 13:01 Acetaminophen 325 Mg Tablet PO 650 mg Q4H PRN Administration Mild Pain (1-3) or Fever Albuterol/Ipratropium 3 ml 09/02/24 02:00 09/06/24 14:01 Ipratropium 0.5 Mg/Albuterol Sulfate 2.5 Mg Ampul.Neb 3 Ml INHALATION 3 ml Q6HRT ISELA Administration Apixaban 10 mg 09/01/24 10:40 09/06/24 08:13 Apixaban 5 Mg Tablet PO 09/07/24 21:01 10 mg Q12HR ISELA Administration Apixaban 5 mg 09/08/24 09:00 Apixaban 5 Mg Tablet PO Q12HR ISELA Dextrose 12.5 gm 08/27/24 23:31 08/30/24 07:50 Dextrose 50% 25 Gm/50 Ml Syringe IV PUSH 12.5 gm PRN PRN Administration Hypoglycemia Protocol Glucagon 1 mg 08/27/24 23:31 Glucagon For Inj 1 Mg Vial IM PRN PRN Hypoglycemia Protocol Glucose 15 gm 08/27/24 23:31 Glucose Oral Gel 15 Gm Of Glucse In 37.5 Gm Tube PO PRN PRN Hypoglycemia Protocol Dextrose 1,000 mls @ 100 mls/hr 08/27/24 23:31 Dextrose 5% 1,000 Ml IVPB PRN PRN Hypoglycemia Protocol Albumin Human 50 mls @ 999 mls/hr 08/28/24 01:42 08/28/24 12:30 Albutein IVPB 09/27/24 01:41 Infused Q10M PRN Infusion HYPOTENSION Piperacillin Sod/Tazobactam Sod 2.25 gm in 50 mls @ 100 mls/hr 09/04/24 21:00 09/06/24 14:40 Zosyn 2.25 Gm/Ns 50 Ml IVPB 09/06/24 20:59 Infused Q6H ISELA Infusion Levothyroxine Sodium 75 mcg 08/28/24 06:30 09/06/24 06:28 Levothyroxine Sodium 75 Mcg Tablet PO 75 mcg DAILY@0630 ISELA Administration Levothyroxine Sodium 100 mcg 08/28/24 06:30 09/06/24 06:28 Levothyroxine Sodium 100 Mcg Tablet PO 100 mcg DAILY@0630 ISELA Administration Midodrine 10 mg 08/29/24 08:00 09/06/24 17:30 Midodrine Hcl 10 Mg Tablet PO 10 mg TID ISELA Administration Pravastatin Sodium 40 mg 08/28/24 09:00 09/06/24 08:13 Pravastatin Sodium 20 Mg Tablet PO 40 mg DAILY ISELA Administration Sevelamer Carbonate 1,600 mg 09/05/24 12:00 09/06/24 17:30 Sevelamer Carbonate 800 Mg Tablet PO 1,600 mg TIDWM ISELA Administration Radiology Results: ITS Impressions Abdomen X-Ray 08/30/24 09:26 IMPRESSION: 1: NG tube coiled in the stomach. Venous Doppler Study 08/30/24 10:40 IMPRESSION: 1. Bilateral below the knee deep venous thrombosis in the peroneal veins. Findings were discussed with Annabel Macedo, the nurse caring for the patient, at 10:49 AM. Chest CTA 09/02/24 08:13 Impression: No evidence of pulmonary embolus, aortic dissection, or aortic aneurysm. Moderate right pleural effusion and small left pleural effusion. Bibasilar atelectasis and mild pulmonary edema. Chest X-Ray 09/06/24 06:11 Impression: Moderate right pleural effusion and small left pleural effusion, with mild to moderate pulmonary edema pattern. Tracheostomy cannula. Labs Labs: Laboratory Tests 09/06/24 03:56 09/06/24 03:56 Calcium 8.6 Phosphorus 4.0 Magnesium 2.3 Total Bilirubin 0.7 AST 17 ALT 11 Alkaline Phosphatase 65 Total Protein 7.0 Albumin 4.0
--- NOTE | 2024-09-06 12:36 | P.PNIM_ITS ---
Progress Note: A&P Assessment and Plan (1) Acute on chronic respiratory failure with hypoxia and hypercapnia: Code(s): J96.21 - Acute and chronic respiratory failure with hypoxia; J96.22 - Acute and chronic respiratory failure with hypercapnia Status: Acute Assessment and Plan: Acute on chronic respiratory failure secondary to pulmonary edema and possible pneumonia, obesity hypoventilation, chronic respiratory failure secondary to laryngeal cancer status post laryngectomy and laryngeal tube placement Patient had laryngeal tube which could be attached to ventilator BiPAP and emergent ET tube was inserted through the laryngeal tube to secure airway and placed on mechanical ventilation. 08/31/2024 laryngeal 2 was switched to cuffed tracheostomy tube by ENT size 8 Neel. Delete that CTA 4 with no evidence of PE aortic dissection or aortic aneurysm. Moderate right pleural effusion and small left pleural effusion bibasilar atelectasis and mild pulmonary edema Wean FiO2 down on PSV trial per health screener He is on empiric antibiotic therapy for pneumonia - see below (2) Hypotension: Code(s): I95.9 - Hypotension, unspecified Status: Acute Assessment and Plan: Hypotension could be secondary to hypoxia and acidosis as blood pressure is now improving after patient has been placed on mechanical ventilation. 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 - Tracheostomy status Status: Acute Assessment and Plan: See above (6) End-stage renal disease on hemodialysis: Code(s): N18.6 - End stage renal disease; Z99.2 - Dependence on renal dialysis Status: Acute Assessment and Plan: On hemodialysis as scheduled (7) Pulmonary edema: Qualifiers: Chronicity: acute Qualified Code(s): J81.0 - Acute pulmonary edema Code(s): J81.1 - Chronic pulmonary edema Status: Acute Assessment and Plan: See above (8) Generalized edema: Code(s): R60.1 - Generalized edema Status: Acute Assessment and Plan: See above (9) Sepsis: Code(s): A41.9 - Sepsis, unspecified organism Status: Acute Assessment and Plan: Resulted from community-acquired pneumonia considering lung infiltrates on chest x-ray sputum culture is growing Pseudomonas which is pansensitive MRSA screen was negative there is a possibility of him aspirating since he has been eating Continue Zosyn (10) DVT (deep venous thrombosis): Code(s): I82.409 - Acute embolism and thrombosis of unspecified deep veins of unspecified lower extremity Status: Acute Assessment and Plan: Lower extremity Dopplers done on 08/30 showed Bilateral below the knee deep venous thrombosis in the peroneal veins. CTA with no PE aortic dissection or AA aortic aneurysm 09/02 Patient is on anticoagulation Echocardiogram showed 1. Left ventricular chamber dimension is normal. 2. Left ventricular systolic function is normal, estimated at 50-55%. 3. There is mildly increased left ventricular wall thickness. 4. The left ventricular diastolic function is grade I diastolic dysfunction. 5. Right ventricular chamber dimension is moderately enlarged. 6. Right ventricular systolic function is reduced. 7. Right atrial chamber dimension is moderately enlarged. 8. There is mild mitral valve regurgitation. 9. There is moderate tricuspid valve regurgitation. 10. Estimated pulmonary arterial systolic pressure is 57 mmHg. 11. Dilated inferior vena cava with no collapse upon inspiration consistent with elevated right atrial pressure, 15 mmHg. Plan DVT prophylaxis -Eliquis Stress ulcer prophylaxis -PPI Nutrition -oral diet Code Status - Full Code Subjective Date/time seen: 09/06/24 12:36 Interval history: No overnight events. Patient went on tag throughout the day yesterday and went on Airvo at night. No CPAP. No other complaints today Review of Systems Review of Systems: All systems reviewed & are unremarkable except as noted in HPI and below Exam Narrative: General: Pt is well-appearing gentleman who appears older than his age. He is awake follows command and is in no distress Lungs/Chest: Decreased bilateral breath sounds overall occasional crackles and decreased breath sound at bases, Cardiac: RRR. Normal S1 S2. No murmurs Circulation: Feet are well Abdomen: Decreased bowel sounds. Morbid Obese. Soft. NT. ND. Extremities: Bilateral pitting edema present chronic venous stasis present patient is missing his right great toe from past amputation : Hay in place Neurologic: Awake follows commands with all 4 extremities PERRL Objective Data Vital Signs Vital Signs: Vital Signs - 24 hr 09/05/24 14:00 09/05/24 14:00 09/05/24 14:08 Temperature Pulse Rate 79 79 Respiratory Rate 20 Blood Pressure 111/72 Pulse Oximetry 98 95 Oxygen Delivery High Flow Therapy with Tr Oxygen Flow Rate 20 Fraction of Inspired Oxygen 35 09/05/24 14:08 09/05/24 14:19 09/05/24 14:19 Temperature Pulse Rate 77 73 Respiratory Rate 16 18 Blood Pressure Pulse Oximetry 100 Oxygen Delivery Trach Collar Oxygen Flow Rate 8 Fraction of Inspired Oxygen 35 09/05/24 14:31 09/05/24 16:00 09/05/24 16:00 Temperature 98.5 F Pulse Rate 72 Respiratory Rate 18 Blood Pressure 116/70 Pulse Oximetry 100 96 98 Oxygen Delivery Trach Collar Trach Collar Oxygen Flow Rate 8 8 Fraction of Inspired Oxygen 35 35 09/05/24 16:00 09/05/24 16:57 09/05/24 18:00 Temperature Pulse Rate 74 79 Respiratory Rate Blood Pressure Pulse Oximetry 99 Oxygen Delivery Trach Collar Oxygen Flow Rate 8 Fraction of Inspired Oxygen 35 09/05/24 18:00 09/05/24 20:00 09/05/24 20:00 Temperature Pulse Rate 79 82 Respiratory Rate 16 Blood Pressure 116/73 Pulse Oximetry 99 100 Oxygen Delivery Trach Collar Oxygen Flow Rate 8 Fraction of Inspired Oxygen 35 09/05/24 20:00 09/05/24 20:05 09/05/24 20:05 Temperature 98.3 F Pulse Rate 80 82 Respiratory Rate 21 H 22 H Blood Pressure 126/84 Pulse Oximetry 100 96 Oxygen Delivery Trach Collar Oxygen Flow Rate 8 Fraction of Inspired Oxygen 35 09/05/24 20:15 09/05/24 22:00 09/05/24 22:00 Temperature Pulse Rate 80 83 83 Respiratory Rate 20 17 Blood Pressure 100/64 Pulse Oximetry 96 Oxygen Delivery Oxygen Flow Rate Fraction of Inspired Oxygen 09/06/24 00:00 09/06/24 00:00 09/06/24 00:00 Temperature 97.7 F Pulse Rate 79 79 Respiratory Rate 22 H Blood Pressure 114/68 Pulse Oximetry 97 97 Oxygen Delivery Trach Collar Oxygen Flow Rate 8 Fraction of Inspired Oxygen 35 09/06/24 02:10 09/06/24 02:22 09/06/24 02:22 Temperature Pulse Rate 79 81 Respiratory Rate 15 Blood Pressure 110/68 Pulse Oximetry 85 L 91 Oxygen Delivery Trach Collar Oxygen Flow Rate 12 Fraction of Inspired Oxygen 35 09/06/24 02:25 09/06/24 02:32 09/06/24 02:33 Temperature Pulse Rate 80 81 Respiratory Rate 19 16 Blood Pressure Pulse Oximetry 94 Oxygen Delivery High Flow Therapy with Tr Oxygen Flow Rate 20 Fraction of Inspired Oxygen 35 09/06/24 04:00 09/06/24 04:00 09/06/24 04:00 Temperature 97.0 F L Pulse Rate 77 82 Respiratory Rate 20 Blood Pressure 105/64 Pulse Oximetry 89 L 89 L Oxygen Delivery High Flow Therapy with Tr Oxygen Flow Rate 20 Fraction of Inspired Oxygen 46 09/06/24 06:00 09/06/24 06:29 09/06/24 08:00 Temperature Pulse Rate 87 79 78 Respiratory Rate 19 15 Blood Pressure 85/54 L 92/62 L Pulse Oximetry 95 91 Oxygen Delivery Oxygen Flow Rate Fraction of Inspired Oxygen 09/06/24 08:00 09/06/24 08:00 09/06/24 08:08 Temperature Pulse Rate 80 79 Respiratory Rate 18 Blood Pressure Pulse Oximetry 91 Oxygen Delivery Trach Collar Oxygen Flow Rate 8 Fraction of Inspired Oxygen 35 09/06/24 08:18 09/06/24 08:18 09/06/24 08:23 Temperature Pulse Rate 78 Respiratory Rate 17 Blood Pressure Pulse Oximetry 93 Oxygen Delivery Trach Collar High Flow Therapy with Tr Oxygen Flow Rate 8 8 Fraction of Inspired Oxygen 35 09/06/24 10:00 09/06/24 10:00 09/06/24 10:52 Temperature Pulse Rate 78 78 Respiratory Rate 18 Blood Pressure 93/54 L Pulse Oximetry 95 Oxygen Delivery High Flow Therapy with Tr Oxygen Flow Rate 20 Fraction of Inspired Oxygen 09/06/24 12:00 09/06/24 12:00 09/06/24 12:00 Temperature Pulse Rate 84 85 Respiratory Rate Blood Pressure 130/79 Pulse Oximetry 97 95 Oxygen Delivery High Flow Therapy with Tr Oxygen Flow Rate 20 Fraction of Inspired Oxygen 40 09/06/24 12:16 Temperature Pulse Rate Respiratory Rate Blood Pressure Pulse Oximetry 92 Oxygen Delivery High Flow Therapy with Tr Oxygen Flow Rate 20 Fraction of Inspired Oxygen 40 Intake/Output Intake/Output: Intake & Output 09/03/24 09/04/24 09/05/24 09/06/24 23:59 23:59 23:59 23:59 Intake Total 1941 1036.8 1040 520 Output Total 3460 0 0 Balance 1941 -2423.2 1040 520 Meds/Results Medications: Active Medications Generic Name Dose Route Start Last Admin Trade Name Freq PRN Reason Stop Dose Admin Acetaminophen 650 mg 08/27/24 15:58 09/03/24 13:01 Acetaminophen 325 Mg Tablet PO 650 mg Q4H PRN Administration Mild Pain (1-3) or Fever Albuterol/Ipratropium 3 ml 09/02/24 02:00 09/06/24 08:04 Ipratropium 0.5 Mg/Albuterol Sulfate 2.5 Mg Ampul.Neb 3 Ml INHALATION 3 ml Q6HRT ISELA Administration Apixaban 10 mg 09/01/24 10:40 09/06/24 08:13 Apixaban 5 Mg Tablet PO 09/07/24 21:01 10 mg Q12HR ISELA Administration Apixaban 5 mg 09/08/24 09:00 Apixaban 5 Mg Tablet PO Q12HR ISELA Dextrose 12.5 gm 08/27/24 23:31 08/30/24 07:50 Dextrose 50% 25 Gm/50 Ml Syringe IV PUSH 12.5 gm PRN PRN Administration Hypoglycemia Protocol Glucagon 1 mg 08/27/24 23:31 Glucagon For Inj 1 Mg Vial IM PRN PRN Hypoglycemia Protocol Glucose 15 gm 08/27/24 23:31 Glucose Oral Gel 15 Gm Of Glucse In 37.5 Gm Tube PO PRN PRN Hypoglycemia Protocol Dextrose 1,000 mls @ 100 mls/hr 08/27/24 23:31 Dextrose 5% 1,000 Ml IVPB PRN PRN Hypoglycemia Protocol Albumin Human 50 mls @ 999 mls/hr 08/28/24 01:42 08/28/24 12:30 Albutein IVPB 09/27/24 01:41 Infused Q10M PRN Infusion HYPOTENSION Piperacillin Sod/Tazobactam Sod 2.25 gm in 50 mls @ 100 mls/hr 09/04/24 21:00 09/06/24 09:45 Zosyn 2.25 Gm/Ns 50 Ml IVPB 09/06/24 20:59 Infused Q6H ISELA Infusion Levothyroxine Sodium 75 mcg 08/28/24 06:30 09/06/24 06:28 Levothyroxine Sodium 75 Mcg Tablet PO 75 mcg DAILY@0630 ISELA Administration Levothyroxine Sodium 100 mcg 08/28/24 06:30 09/06/24 06:28 Levothyroxine Sodium 100 Mcg Tablet PO 100 mcg DAILY@0630 ISELA Administration Midodrine 10 mg 08/29/24 08:00 09/06/24 11:33 Midodrine Hcl 10 Mg Tablet PO 10 mg TID ISELA Administration Pravastatin Sodium 40 mg 08/28/24 09:00 09/06/24 08:13 Pravastatin Sodium 20 Mg Tablet PO 40 mg DAILY ISELA Administration Sevelamer Carbonate 1,600 mg 09/05/24 12:00 09/06/24 11:32 Sevelamer Carbonate 800 Mg Tablet PO 1,600 mg TIDWM ISELA Administration Radiology Results: ITS Impressions Abdomen X-Ray 08/30/24 09:26 IMPRESSION: 1: NG tube coiled in the stomach. Venous Doppler Study 08/30/24 10:40 IMPRESSION: 1. Bilateral below the knee deep venous thrombosis in the peroneal veins. Findings were discussed with Annabel Macedo, the nurse caring for the patient, at 10:49 AM. Chest CTA 09/02/24 08:13 Impression: No evidence of pulmonary embolus, aortic dissection, or aortic aneurysm. Moderate right pleural effusion and small left pleural effusion. Bibasilar atelectasis and mild pulmonary edema. Chest X-Ray 09/06/24 06:11 Impression: Moderate right pleural effusion and small left pleural effusion, with mild to moderate pulmonary edema pattern. Tracheostomy cannula. Labs Labs: Laboratory Results - last 24 hr 09/06/24 03:56 WBC 6.7 RBC 2.99 L Hgb 10.0 L Hct 34.3 L MCV 114.7 H MCH 33.4 MCHC 29.2 L RDW 15.1 H Plt Count 116 L MPV 11.1 H Sodium 138 Potassium 3.8 Chloride 99 Carbon Dioxide 28 Anion Gap 11 BUN 39 H Creatinine 5.13 H Estim Creat Clear Calc 17 Estimated GFR 12 L Glucose 77 Calcium 8.6 Phosphorus 4.0 Magnesium 2.3 Total Bilirubin 0.7 AST 17 ALT 11 Alkaline Phosphatase 65 Total Protein 7.0 Albumin 4.0
[2024-09-07] VITALS (38 sets, daily range): BP systolic 92–125; BP diastolic 47–81; PULSE 20–96; RESP 14–86; TEMP 36.7–37; O2SAT 88–100
[2024-09-07] MEDS: IPRATROPIUM 0.5 MG/ALBUTEROL SULFATE 2.5 MG AMPUL.NEB 3 ML INHALATION ×4 (04:17→20:13)
[2024-09-07 04:55] LABS: Hematocrit 33.9 % (42.0-52.0); Immature Platelet Fraction Pct 8.1 % (0.9-11.2); Mean Corpuscular HGB Conc 29.5 g/dl (32-36); Mean Corpuscular Hemoglobin 33.2 pg (26-34); Mean Corpuscular Volume 112.6 fl (80-100); Mean Platelet Volume 11.6 fl (7.4-10.4); Platelet Count Result 136 k/mm3 (150-375); Red Blood Count 3.01 M/mm3 (4.6-6.20); Red Cell Distribution Width 14.9 % (11.5-14.5); White Blood Count 6.6 K/mm3 (4.5-10.0)
[2024-09-07 05:12] LABS: Alanine Aminotransferase 10 U/L (6-50); Albumin Level 4.2 g/dL (3.5-5.1); Alkaline Phosphatase 56 U/L (38-126); Anion Gap 12 mmol/L (4-12); Aspartate Amino Transferase 17 U/L (17-59); Bilirubin,Total 0.6 mg/dL (0.2-1.3); Blood Urea Nitrogen 43 mg/dL (9-20); Calcium 8.8 mg/dL (8.4-10.2); Carbon Dioxide 29 mmol/L (22-30); Chloride 97 mmol/L (98-107); Estimated CRCL calculation 14 ml/min; Estimated Glomerular Filt Rate 9; Glucose 92 mg/dL (65-110); Magnesium 2.5 mg/dL (1.6-2.3); Potassium 4.2 mmol/L (3.4-5.0); Sodium 138 mmol/L (137-145)
[2024-09-07] MEDS: LEVOTHYROXINE SODIUM 100 MCG TABLET PO (05:42)
[2024-09-07] MEDS: LEVOTHYROXINE SODIUM 75 MCG TABLET PO (05:42)
[2024-09-07] MEDS: PRAVASTATIN SODIUM 20 MG TABLET 40 MG PO (08:17)
[2024-09-07] MEDS: APIXABAN 5 MG TABLET 10 MG PO (08:17)
[2024-09-07] MEDS: MIDODRINE HCL 10 MG TABLET PO ×3 (08:17→18:22)
[2024-09-07] MEDS: SEVELAMER CARBONATE 800 MG TABLET 1600 MG PO ×3 (08:17→18:22)
--- NOTE | 2024-09-07 08:52 | WPDINTPN ---
Progress Note: A&P Assessment and Plan (1) Acute on chronic respiratory failure with hypoxia and hypercapnia: Code(s): J96.21 - Acute and chronic respiratory failure with hypoxia; J96.22 - Acute and chronic respiratory failure with hypercapnia Status: Acute Assessment and Plan: Acute on chronic respiratory failure secondary to pulmonary edema and possible pneumonia, obesity hypoventilation, chronic respiratory failure secondary to laryngeal cancer status post laryngectomy and laryngeal tube placement 08/29 His laryngeal tube cannot be attached to ventilator or BiPAP. An emergent ET tube was inserted through the laryngeal tube to secure airway and attached to mechanical ventilation Due to small size of airway we are having high pressures and gradually increasing mechanical ventilation 08/31 laryngeal tube was switched to a cuffed tracheostomy tube by ENT physician. Size 8 Shiley ABG reviewed CTA chest09/02 No evidence of pulmonary embolus, aortic dissection, or aortic aneurysm. Moderate right pleural effusion and small left pleural effusion. Bibasilar atelectasis and mild pulmonary edema. Patient was on Airvo yesterday today and off of PSV Continue to wean FiO2 Continue fluid removed with dialysis He has completed a course of Zosyn for his pneumonia (2) Hypotension: Code(s): I95.9 - Hypotension, unspecified Status: Acute Assessment and Plan: 1 admission to ICU patient was hypotensive and has been started on Levophed. Patient does have history of hypertension and was on antihypertensive medications. Hypotension could be secondary to hypoxia and acidosis as blood pressure is now improving after patient has been placed on mechanical ventilation. Since he is already volume overloaded he has been started on Levophed to maintain mean arterial pressure to be able to dialyze patient There is also a possibility of sepsis although patient has been afebrile with normal WBC count. 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 - Tracheostomy status Status: Acute Assessment and Plan: See above (6) End-stage renal disease on hemodialysis: Code(s): N18.6 - End stage renal disease; Z99.2 - Dependence on renal dialysis Status: Acute Assessment and Plan: Patient is getting dialysis per Nephrology (7) Pulmonary edema: Qualifiers: Chronicity: acute Qualified Code(s): J81.0 - Acute pulmonary edema Code(s): J81.1 - Chronic pulmonary edema Status: Acute Assessment and Plan: See above (8) Generalized edema: Code(s): R60.1 - Generalized edema Status: Acute Assessment and Plan: See above (9) Sepsis: Code(s): A41.9 - Sepsis, unspecified organism Status: Acute Assessment and Plan: Although patient is afebrile and has had normal WBC. He was started on antibiotics for community-acquired pneumonia considering lung infiltrates on chest x-ray Pneumonia appears to be less likely from clinical picture. His procalcitonin level was low. He sputum culture is growing Pseudomonas which is pansensitive MRSA screen was negative there is a possibility of him aspirating since he has been eating Completed Zosyn could (10) DVT (deep venous thrombosis): Code(s): I82.409 - Acute embolism and thrombosis of unspecified deep veins of unspecified lower extremity Status: Acute Assessment and Plan: Lower extremity Dopplers done on 08/30 showed Bilateral below the knee deep venous thrombosis in the peroneal veins. Findings were discussed with Annabel Macedo, the nurse caring for the patient, at 10:49 AM. Patient is bedridden and ventilator dependent and high risk of further worsening of DVT. Patient has been started on heparin infusion and has been tolerating. I do not anticipate any procedures at this time and side will start him on Eliquis A CTA of the chest was not done imaging to rule out PE as when I saw the patient patient was already getting dialyzed. It will also not private branch exchange installer at this point as patient is already on anticoagulation. Patient is getting CTA today and will get dialyzed after that Continue Eliquis Echo Summary 1. Left ventricular chamber dimension is normal. 2. Left ventricular systolic function is normal, estimated at 50-55%. 3. There is mildly increased left ventricular wall thickness. 4. The left ventricular diastolic function is grade I diastolic dysfunction. 5. Right ventricular chamber dimension is moderately enlarged. 6. Right ventricular systolic function is reduced. 7. Right atrial chamber dimension is moderately enlarged. 8. There is mild mitral valve regurgitation. 9. There is moderate tricuspid valve regurgitation. 10. Estimated pulmonary arterial systolic pressure is 57 mmHg. 11. Dilated inferior vena cava with no collapse upon inspiration consistent with elevated right atrial pressure, 15 mmHg. Plan DVT prophylaxis -Eliquis Stress ulcer prophylaxis -PPI Nutrition -diet ordered Code Status - Full Code He is working with PT OT, sitting in chair Patient is is being evaluated for placement for rehab Total Critical Care Time - 30 minutes Due to a high probability of clinically significant, life threatening deterioration, the patient required my highest level of preparedness to intervene emergently and I personally spent this critical care time directly and personally managing the patient. This critical care time included obtaining a history; examining the patient; pulse oximetry; ordering and review of studies; arranging urgent treatment with development of a management plan; evaluation of patient's response to treatment; frequent reassessment; and discussions with other providers. It was exclusive of separately billable procedures and treating other patients and teaching time. Please see Assessment and Plan section and the rest of the note for further information on patient assessment and treatment Subjective Date/time seen: 09/07/24 No significant change overnight. Patient is on Airvo attached to his tracheostomy with cuff deflated. He has been sitting in his recliner most of the time. He has been eating without any difficulty and working with therapy. He denies any complaints. Patient denies fever, chest pain, shortness of breath, cough, nausea vomiting, abdominal pain,, diarrhea, headache or constipation. He is afebrile was still requiring significant oxygen as he is on 20 L flow 45% FiO2 Review of Systems Review of Systems: ROS unobtainable: Yes unobtainable due to endotracheal tube Exam Narrative: General: Pt is ill-appearing gentleman who appears older than his age. He is awake follows command and is in no distress Lungs/Chest: Decreased bilateral breath sounds overall occasional crackles and decreased breath sound at bases, Cardiac: RRR. Normal S1 S2. No murmurs Circulation: Feet are well Abdomen: Decreased bowel sounds. Morbid Obese. Soft. NT. ND. 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 : Hay in place Neurologic: Awake follows commands with all 4 extremities PERRL, sitting in chair Objective Data Vital Signs Vital Signs: Vital Signs - 24 hr 09/06/24 10:00 09/06/24 10:00 09/06/24 10:52 Temperature Pulse Rate 78 78 Respiratory Rate 18 Blood Pressure 93/54 L Pulse Oximetry 95 Oxygen Delivery High Flow Therapy with Tr Oxygen Flow Rate 20 Fraction of Inspired Oxygen 09/06/24 12:00 09/06/24 12:00 09/06/24 12:00 Temperature Pulse Rate 84 85 Respiratory Rate Blood Pressure 130/79 Pulse Oximetry 97 95 Oxygen Delivery High Flow Therapy with Tr Oxygen Flow Rate 20 Fraction of Inspired Oxygen 40 09/06/24 12:16 09/06/24 14:00 09/06/24 14:00 Temperature Pulse Rate 75 75 Respiratory Rate 18 Blood Pressure 116/70 Pulse Oximetry 92 98 Oxygen Delivery High Flow Therapy with Tr Oxygen Flow Rate 20 Fraction of Inspired Oxygen 40 09/06/24 14:02 09/06/24 14:12 09/06/24 16:00 Temperature Pulse Rate 78 76 Respiratory Rate 18 19 Blood Pressure Pulse Oximetry 96 Oxygen Delivery High Flow Therapy with Tr Oxygen Flow Rate 20 Fraction of Inspired Oxygen 40 09/06/24 16:00 09/06/24 16:00 09/06/24 18:00 Temperature 37.0 C Pulse Rate 79 81 72 Respiratory Rate 18 Blood Pressure 107/74 Pulse Oximetry 96 Oxygen Delivery Oxygen Flow Rate Fraction of Inspired Oxygen 09/06/24 18:00 09/06/24 20:00 09/06/24 20:00 Temperature 36.7 C Pulse Rate 74 77 78 Respiratory Rate 18 17 Blood Pressure 86/58 L 97/64 L Pulse Oximetry 96 96 Oxygen Delivery Oxygen Flow Rate Fraction of Inspired Oxygen 09/06/24 20:00 09/06/24 20:07 09/06/24 20:07 Temperature Pulse Rate 77 Respiratory Rate 19 Blood Pressure Pulse Oximetry 95 95 Oxygen Delivery High Flow Therapy with Tr High Flow Therapy with Tr Oxygen Flow Rate 20 20 Fraction of Inspired Oxygen 40 40 09/06/24 20:16 09/06/24 22:00 09/06/24 22:00 Temperature Pulse Rate 79 86 84 Respiratory Rate 21 H 16 Blood Pressure 113/69 Pulse Oximetry 93 Oxygen Delivery Oxygen Flow Rate Fraction of Inspired Oxygen 09/06/24 23:56 09/07/24 00:00 09/07/24 00:00 Temperature 36.7 C Pulse Rate 84 84 Respiratory Rate 18 Blood Pressure 100/65 Pulse Oximetry 95 95 Oxygen Delivery High Flow Therapy with Tr Oxygen Flow Rate 20 Fraction of Inspired Oxygen 40 09/07/24 02:00 09/07/24 02:00 09/07/24 04:00 Temperature Pulse Rate 82 82 Respiratory Rate 17 Blood Pressure 110/68 Pulse Oximetry 96 96 Oxygen Delivery High Flow Therapy with Tr Oxygen Flow Rate 20 Fraction of Inspired Oxygen 40 09/07/24 04:00 09/07/24 04:00 09/07/24 04:17 Temperature 36.7 C Pulse Rate 81 81 85 Respiratory Rate 14 16 Blood Pressure 95/71 L Pulse Oximetry 89 L Oxygen Delivery Oxygen Flow Rate Fraction of Inspired Oxygen 09/07/24 04:24 09/07/24 05:27 09/07/24 05:57 Temperature Pulse Rate 86 90 Respiratory Rate 18 Blood Pressure Pulse Oximetry 88 L Oxygen Delivery High Flow Therapy with Tr Oxygen Flow Rate 20 Fraction of Inspired Oxygen 45 09/07/24 06:00 Temperature Pulse Rate 91 Respiratory Rate 16 Blood Pressure 107/55 L Pulse Oximetry 94 Oxygen Delivery Oxygen Flow Rate Fraction of Inspired Oxygen Intake/Output Intake/Output: Intake & Output 09/04/24 09/05/24 09/06/24 09/07/24 23:59 23:59 23:59 23:59 Intake Total 1036.8 1040 1210 250 Output Total 3460 0 0 0 Balance -2423.2 1040 1210 250 Meds/Results Medications: Active Medications Generic Name Dose Route Start Last Admin Trade Name Freq PRN Reason Stop Dose Admin Acetaminophen 650 mg 08/27/24 15:58 09/03/24 13:01 Acetaminophen 325 Mg Tablet PO 650 mg Q4H PRN Administration Mild Pain (1-3) or Fever Albuterol/Ipratropium 3 ml 09/02/24 02:00 09/07/24 04:17 Ipratropium 0.5 Mg/Albuterol Sulfate 2.5 Mg Ampul.Neb 3 Ml INHALATION 3 ml Q6HRT ISELA Administration Apixaban 10 mg 09/01/24 10:40 09/07/24 08:17 Apixaban 5 Mg Tablet PO 09/07/24 21:01 10 mg Q12HR ISELA Administration Apixaban 5 mg 09/08/24 09:00 Apixaban 5 Mg Tablet PO Q12HR ISELA Dextrose 12.5 gm 08/27/24 23:31 08/30/24 07:50 Dextrose 50% 25 Gm/50 Ml Syringe IV PUSH 12.5 gm PRN PRN Administration Hypoglycemia Protocol Epoetin Shawn-epbx 10,000 units 09/07/24 18:50 Epoetin Shawn-Epbx 10,000 Units/Ml Vial IV PUSH 09/07/24 18:51 ONCE ONE Glucagon 1 mg 08/27/24 23:31 Glucagon For Inj 1 Mg Vial IM PRN PRN Hypoglycemia Protocol Glucose 15 gm 08/27/24 23:31 Glucose Oral Gel 15 Gm Of Glucse In 37.5 Gm Tube PO PRN PRN Hypoglycemia Protocol Dextrose 1,000 mls @ 100 mls/hr 08/27/24 23:31 Dextrose 5% 1,000 Ml IVPB PRN PRN Hypoglycemia Protocol Albumin Human 50 mls @ 999 mls/hr 08/28/24 01:42 08/28/24 12:30 Albutein IVPB 09/27/24 01:41 Infused Q10M PRN Infusion HYPOTENSION Levothyroxine Sodium 75 mcg 08/28/24 06:30 09/07/24 05:42 Levothyroxine Sodium 75 Mcg Tablet PO 75 mcg DAILY@0630 ISELA Administration Levothyroxine Sodium 100 mcg 08/28/24 06:30 09/07/24 05:42 Levothyroxine Sodium 100 Mcg Tablet PO 100 mcg DAILY@0630 ISELA Administration Midodrine 10 mg 08/29/24 08:00 09/07/24 08:17 Midodrine Hcl 10 Mg Tablet PO 10 mg TID ISELA Administration Pravastatin Sodium 40 mg 08/28/24 09:00 09/07/24 08:17 Pravastatin Sodium 20 Mg Tablet PO 40 mg DAILY ISELA Administration Sevelamer Carbonate 1,600 mg 09/05/24 12:00 09/07/24 08:17 Sevelamer Carbonate 800 Mg Tablet PO 1,600 mg TIDWM ISELA Administration Radiology Results: ITS Impressions Abdomen X-Ray 08/30/24 09:26 IMPRESSION: 1: NG tube coiled in the stomach. Venous Doppler Study 08/30/24 10:40 IMPRESSION: 1. Bilateral below the knee deep venous thrombosis in the peroneal veins. Findings were discussed with Annabel Macedo, the nurse caring for the patient, at 10:49 AM. Chest CTA 09/02/24 08:13 Impression: No evidence of pulmonary embolus, aortic dissection, or aortic aneurysm. Moderate right pleural effusion and small left pleural effusion. Bibasilar atelectasis and mild pulmonary edema. Chest X-Ray 09/06/24 06:11 Impression: Moderate right pleural effusion and small left pleural effusion, with mild to moderate pulmonary edema pattern. Tracheostomy cannula. Labs Labs: Laboratory Results - last 24 hr 09/07/24 04:27 WBC 6.6 RBC 3.01 L Hgb 10.0 L Hct 33.9 L MCV 112.6 H MCH 33.2 MCHC 29.5 L RDW 14.9 H Plt Count 136 L MPV 11.6 H % Immature Plt Fraction 8.1 Sodium 138 Potassium 4.2 Chloride 97 L Carbon Dioxide 29 Anion Gap 12 BUN 43 H Creatinine 6.10 H Estim Creat Clear Calc 14 Estimated GFR 9 L Glucose 92 Calcium 8.8 Magnesium 2.5 H Total Bilirubin 0.6 AST 17 ALT 10 Alkaline Phosphatase 56 Total Protein 7.0 Albumin 4.2 Quality VTE Prophylaxis VTE prophylaxis: mechanical ordered and pharmacologic ordered
--- NOTE | 2024-09-07 10:43 | PCNFU ---
Nutrition Follow-Up Complete: Inadequate energy intake related to fluid status as evidenced by need for trophic tube feeding Goal: Meet estimated protein energy needs Patient is progressing towards goal. We will continue current goal. Pt current nutrition is Renal Dialysis diet with Nepro shakes. Last recorded weight is 104.5 kg, up from 102 kg on admit. Bowel Motility: Last reported BM 09/05 Labs Reviewed: Mg 2.5, BUN 43, Cr 6.10, Hct 33.9, Hgb 10.0 Meds Noted:Protonix, Synthroid. Skin: WNL Additional Notes: Patient current with Trach. Tolerating Renal diet > 75% of meals. Diet supplements of Nepro providing an additional 420 kcal and 19 gm protein. Agree with diet orders. Monitoring in ICU rounds. Reassessing, diet, weights, labs, meds, plan of care every 5 days.
--- NOTE | 2024-09-07 13:25 | PM.IMPN ---
Progress Note: A&P Assessment and Plan (1) Acute on chronic respiratory failure with hypoxia and hypercapnia: Code(s): J96.21 - Acute and chronic respiratory failure with hypoxia; J96.22 - Acute and chronic respiratory failure with hypercapnia Status: Acute Assessment and Plan: Acute on chronic respiratory failure secondary to pulmonary edema and possible pneumonia, obesity hypoventilation, chronic respiratory failure secondary to laryngeal cancer status post laryngectomy and laryngeal tube placement Patient had laryngeal tube which could be attached to ventilator BiPAP and emergent ET tube was inserted through the laryngeal tube to secure airway and placed on mechanical ventilation. 08/31/2024 laryngeal 2 was switched to cuffed tracheostomy tube by ENT size 8 Neel. Delete that CTA 4/ with no evidence of PE aortic dissection or aortic aneurysm. 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 - Tracheostomy status Status: Acute Assessment and Plan: See above (6) End-stage renal disease on hemodialysis: Code(s): N18.6 - End stage renal disease; Z99.2 - Dependence on renal dialysis Status: Acute Assessment and Plan: On hemodialysis as scheduled (7) Pulmonary edema: Qualifiers: Chronicity: acute Qualified Code(s): J81.0 - Acute pulmonary edema Code(s): J81.1 - Chronic pulmonary edema Status: Acute Assessment and Plan: See above (8) Generalized edema: Code(s): R60.1 - Generalized edema Status: Acute Assessment and Plan: See above (9) Sepsis: Code(s): A41.9 - Sepsis, unspecified organism Status: Acute Assessment and Plan: Resulted from community-acquired pneumonia considering lung infiltrates on chest x-ray sputum culture is growing Pseudomonas which is pansensitive MRSA screen was negative there is a possibility of him aspirating since he has been eating Continue Zosyn (10) DVT (deep venous thrombosis): Code(s): I82.409 - Acute embolism and thrombosis of unspecified deep veins of unspecified lower extremity Status: Acute Assessment and Plan: Lower extremity Dopplers done on 08/30 showed Bilateral below the knee deep venous thrombosis in the peroneal veins. CTA with no PE aortic dissection or AA aortic aneurysm 09/02 Patient is on anticoagulation Echocardiogram showed 1. Left ventricular chamber dimension is normal. 2. Left ventricular systolic function is normal, estimated at 50-55%. 3. There is mildly increased left ventricular wall thickness. 4. The left ventricular diastolic function is grade I diastolic dysfunction. 5. Right ventricular chamber dimension is moderately enlarged. 6. Right ventricular systolic function is reduced. 7. Right atrial chamber dimension is moderately enlarged. 8. There is mild mitral valve regurgitation. 9. There is moderate tricuspid valve regurgitation. 10. Estimated pulmonary arterial systolic pressure is 57 mmHg. 11. Dilated inferior vena cava with no collapse upon inspiration consistent with elevated right atrial pressure, 15 mmHg. Plan DVT prophylaxis -Eliquis Stress ulcer prophylaxis -PPI Nutrition -oral diet Code Status - Full Code Subjective Date/time seen: 09/07/24 13:25 Interval history: No overnight events. Patient remains on Airvo during the daytime. Positive-pressure ventilation at night. Review of Systems Review of Systems: All systems reviewed & are unremarkable except as noted in HPI and below Exam Narrative: General: Pt is well-appearing gentleman who appears older than his age. He is awake follows command and is in no distress Lungs/Chest: Decreased bilateral breath sounds overall occasional crackles and decreased breath sound at bases, Cardiac: RRR. Normal S1 S2. No murmurs Circulation: Feet are well Abdomen: Decreased bowel sounds. Morbid Obese. Soft. NT. ND. Extremities: Bilateral pitting edema present chronic venous stasis present patient is missing his right great toe from past amputation : Hay in place Neurologic: Awake follows commands with all 4 extremities PERRL Objective Data Vital Signs Vital Signs: Vital Signs - 24 hr 09/06/24 14:00 09/06/24 14:00 09/06/24 14:02 Temperature Pulse Rate 75 75 78 Respiratory Rate 18 18 Blood Pressure 116/70 Pulse Oximetry 98 Oxygen Delivery Oxygen Flow Rate Fraction of Inspired Oxygen 09/06/24 14:12 09/06/24 16:00 09/06/24 16:00 Temperature 98.6 F Pulse Rate 76 79 Respiratory Rate 19 18 Blood Pressure 107/74 Pulse Oximetry 96 96 Oxygen Delivery High Flow Therapy with Tr Oxygen Flow Rate 20 Fraction of Inspired Oxygen 40 09/06/24 16:00 09/06/24 18:00 09/06/24 18:00 Temperature Pulse Rate 81 72 74 Respiratory Rate 18 Blood Pressure 86/58 L Pulse Oximetry 96 Oxygen Delivery Oxygen Flow Rate Fraction of Inspired Oxygen 09/06/24 20:00 09/06/24 20:00 09/06/24 20:00 Temperature 98.0 F Pulse Rate 77 78 Respiratory Rate 17 Blood Pressure 97/64 L Pulse Oximetry 96 95 Oxygen Delivery High Flow Therapy with Tr Oxygen Flow Rate 20 Fraction of Inspired Oxygen 40 09/06/24 20:07 09/06/24 20:07 09/06/24 20:16 Temperature Pulse Rate 77 79 Respiratory Rate 19 21 H Blood Pressure Pulse Oximetry 95 Oxygen Delivery High Flow Therapy with Tr Oxygen Flow Rate 20 Fraction of Inspired Oxygen 40 09/06/24 22:00 09/06/24 22:00 09/06/24 23:56 Temperature Pulse Rate 86 84 Respiratory Rate 16 Blood Pressure 113/69 Pulse Oximetry 93 95 Oxygen Delivery High Flow Therapy with Tr Oxygen Flow Rate 20 Fraction of Inspired Oxygen 40 09/07/24 00:00 09/07/24 00:00 09/07/24 02:00 Temperature 98.1 F Pulse Rate 84 84 82 Respiratory Rate 18 17 Blood Pressure 100/65 110/68 Pulse Oximetry 95 96 Oxygen Delivery Oxygen Flow Rate Fraction of Inspired Oxygen 09/07/24 02:00 09/07/24 04:00 09/07/24 04:00 Temperature 98.0 F Pulse Rate 82 81 Respiratory Rate 14 Blood Pressure 95/71 L Pulse Oximetry 96 89 L Oxygen Delivery High Flow Therapy with Tr Oxygen Flow Rate 20 Fraction of Inspired Oxygen 40 09/07/24 04:00 09/07/24 04:17 09/07/24 04:24 Temperature Pulse Rate 81 85 86 Respiratory Rate 16 18 Blood Pressure Pulse Oximetry Oxygen Delivery Oxygen Flow Rate Fraction of Inspired Oxygen 09/07/24 05:27 09/07/24 05:57 09/07/24 06:00 Temperature Pulse Rate 90 91 Respiratory Rate 16 Blood Pressure 107/55 L Pulse Oximetry 88 L 94 Oxygen Delivery High Flow Therapy with Tr Oxygen Flow Rate 20 Fraction of Inspired Oxygen 45 09/07/24 08:00 09/07/24 08:00 09/07/24 08:00 Temperature 98.2 F Pulse Rate 92 92 Respiratory Rate 16 Blood Pressure 111/69 Pulse Oximetry 96 96 Oxygen Delivery High Flow Therapy with Tr Oxygen Flow Rate 20 Fraction of Inspired Oxygen 45 09/07/24 09:06 09/07/24 09:07 09/07/24 10:00 Temperature Pulse Rate 20 L 85 Respiratory Rate 86 H Blood Pressure Pulse Oximetry 92 Oxygen Delivery High Flow Therapy with Tr Oxygen Flow Rate 20 Fraction of Inspired Oxygen 40 09/07/24 10:00 09/07/24 12:00 09/07/24 12:00 Temperature Pulse Rate 85 71 Respiratory Rate 18 Blood Pressure 125/81 Pulse Oximetry 98 97 Oxygen Delivery High Flow Therapy with Tr Oxygen Flow Rate 20 Fraction of Inspired Oxygen 45 09/07/24 12:00 09/07/24 12:40 09/07/24 12:52 Temperature 98.2 F 98.2 F Pulse Rate 77 86 78 Respiratory Rate 18 18 Blood Pressure 113/68 113/68 108/66 Pulse Oximetry 97 95 Oxygen Delivery Oxygen Flow Rate Fraction of Inspired Oxygen Intake/Output Intake/Output: Intake & Output 09/04/24 09/05/24 09/06/24 09/07/24 23:59 23:59 23:59 23:59 Intake Total 1036.8 1040 1210 750 Output Total 3460 0 0 0 Balance -2423.2 1040 1210 750 Meds/Results Medications: Active Medications Generic Name Dose Route Start Last Admin Trade Name Freq PRN Reason Stop Dose Admin Acetaminophen 650 mg 08/27/24 15:58 09/03/24 13:01 Acetaminophen 325 Mg Tablet PO 650 mg Q4H PRN Administration Mild Pain (1-3) or Fever Albuterol/Ipratropium 3 ml 09/02/24 02:00 09/07/24 09:03 Ipratropium 0.5 Mg/Albuterol Sulfate 2.5 Mg Ampul.Neb 3 Ml INHALATION 3 ml Q6HRT ISELA Administration Apixaban 10 mg 09/01/24 10:40 09/07/24 08:17 Apixaban 5 Mg Tablet PO 09/07/24 21:01 10 mg Q12HR ISELA Administration Apixaban 5 mg 09/08/24 09:00 Apixaban 5 Mg Tablet PO Q12HR ISELA Dextrose 12.5 gm 08/27/24 23:31 08/30/24 07:50 Dextrose 50% 25 Gm/50 Ml Syringe IV PUSH 12.5 gm PRN PRN Administration Hypoglycemia Protocol Epoetin Shawn-epbx 10,000 units 09/07/24 18:50 Epoetin Shawn-Epbx 10,000 Units/Ml Vial IV PUSH 09/07/24 18:51 ONCE ONE Glucagon 1 mg 08/27/24 23:31 Glucagon For Inj 1 Mg Vial IM PRN PRN Hypoglycemia Protocol Glucose 15 gm 08/27/24 23:31 Glucose Oral Gel 15 Gm Of Glucse In 37.5 Gm Tube PO PRN PRN Hypoglycemia Protocol Dextrose 1,000 mls @ 100 mls/hr 08/27/24 23:31 Dextrose 5% 1,000 Ml IVPB PRN PRN Hypoglycemia Protocol Albumin Human 50 mls @ 999 mls/hr 08/28/24 01:42 08/28/24 12:30 Albutein IVPB 09/27/24 01:41 Infused Q10M PRN Infusion HYPOTENSION Levothyroxine Sodium 75 mcg 08/28/24 06:30 09/07/24 05:42 Levothyroxine Sodium 75 Mcg Tablet PO 75 mcg DAILY@0630 ISELA Administration Levothyroxine Sodium 100 mcg 08/28/24 06:30 09/07/24 05:42 Levothyroxine Sodium 100 Mcg Tablet PO 100 mcg DAILY@0630 ISELA Administration Midodrine 10 mg 08/29/24 08:00 09/07/24 12:25 Midodrine Hcl 10 Mg Tablet PO 10 mg TID ISELA Administration Pravastatin Sodium 40 mg 08/28/24 09:00 09/07/24 08:17 Pravastatin Sodium 20 Mg Tablet PO 40 mg DAILY ISELA Administration Sevelamer Carbonate 1,600 mg 09/05/24 12:00 09/07/24 12:25 Sevelamer Carbonate 800 Mg Tablet PO 1,600 mg TIDWM ISELA Administration Radiology Results: ITS Impressions Abdomen X-Ray 08/30/24 09:26 IMPRESSION: 1: NG tube coiled in the stomach. Venous Doppler Study 08/30/24 10:40 IMPRESSION: 1. Bilateral below the knee deep venous thrombosis in the peroneal veins. Findings were discussed with Annabel Macedo, the nurse caring for the patient, at 10:49 AM. Chest CTA 09/02/24 08:13 Impression: No evidence of pulmonary embolus, aortic dissection, or aortic aneurysm. Moderate right pleural effusion and small left pleural effusion. Bibasilar atelectasis and mild pulmonary edema. Chest X-Ray 09/06/24 06:11 Impression: Moderate right pleural effusion and small left pleural effusion, with mild to moderate pulmonary edema pattern. Tracheostomy cannula. Labs Labs: Laboratory Results - last 24 hr 09/07/24 04:27 WBC 6.6 RBC 3.01 L Hgb 10.0 L Hct 33.9 L MCV 112.6 H MCH 33.2 MCHC 29.5 L RDW 14.9 H Plt Count 136 L MPV 11.6 H % Immature Plt Fraction 8.1 Sodium 138 Potassium 4.2 Chloride 97 L Carbon Dioxide 29 Anion Gap 12 BUN 43 H Creatinine 6.10 H Estim Creat Clear Calc 14 Estimated GFR 9 L Glucose 92 Calcium 8.8 Magnesium 2.5 H Total Bilirubin 0.6 AST 17 ALT 10 Alkaline Phosphatase 56 Total Protein 7.0 Albumin 4.2
[2024-09-07] MEDS: EPOETIN ALFA-EPBX 10,000 UNITS/ML VIAL 10000 UNITS IV PUSH (13:38)
--- NOTE | 2024-09-07 16:10 | P.PNNP_ITS ---
Progress Note: A&P Assessment and Plan (1) End stage renal disease: Code(s): N18.6 - End stage renal disease Status: Chronic Assessment and Plan: * HD today * continue Friday//Friday dialysis schedule while hospitalized * follow electrolytes, volume status, and clearance * push fluid removal with dialysis as tolerated (2) Acute on chronic respiratory failure with hypoxia and hypercapnia: Code(s): J96.21 - Acute and chronic respiratory failure with hypoxia; J96.22 - Acute and chronic respiratory failure with hypercapnia Status: Acute Assessment and Plan: * due to several issues: * pulmonary edema * possible pneumonia * obesity hypoventilation * chronic respiratory failure secondary to laryngeal cancer status post laryngectomy and laryngeal tube placement * fluid removal with dry ultrafiltration and dialysis as tolerated by hemodynamics * completed antibiotic therapy for pneumonia (3) Hypotension: Code(s): I95.9 - Hypotension, unspecified Status: Acute Assessment and Plan: * resolved * noted since AM of 08/28 * worsened by administration scheduled BP medication on 08/28 as well * was asymptomatic * BP medications on hold * on midodrine * off vasopressor therapy (4) Pneumonia: Code(s): J18.9 - Pneumonia, unspecified organism Status: Acute Assessment and Plan: * as suggested by recent imaging * follow culture data - sputum culture noted * on antibiotic therapy (5) Hypertension: Code(s): I10 - Essential (primary) hypertension Status: Chronic Assessment and Plan: * BP medications on hold due to hypotension * resume as needed * follow trend of hemodynamics (6) Type 2 diabetes mellitus: Code(s): E11.9 - Type 2 diabetes mellitus without complications Status: Chronic Assessment and Plan: * follow accu-cheks * glycemic control per hospitalist Will continue to follow. L Subjective Date/time seen: 09/07/24 16:10 Interval history: Follow-up for end stage renal disease on hemodialysis. Seen earlier today and currently while on hemodialysis treatment (seen on HD at 4:00PM); appears to be doing about the same; breathing/respiratory status seems stable if not better; hemodynamically stable without the need for vasopressor therapy; eating and drinking reasonably well; no apparent distress noted. Exam 2 Narrative: General: WD/WN male in NAD Heart: normal S1 and S2; no rub Lungs: coarse and decreased breath sounds at bases Abdomen: soft, nontender but mild distension, positive bowel sounds Extremities: no cyanosis or clubbing; trace - 1+ edema in UEs and LEs Skin: no nodules Objective Data Vital Signs Vital Signs: Vital Signs Temp Pulse Resp BP Pulse Ox O2 Del Method O2 Flow Rate 09/07/24 16:00 98.3 F 87 16 105/57 L 98 09/07/24 16:00 98 High Flow Therapy with Tr 20 09/07/24 16:00 87 105/57 L 09/07/24 15:45 88 102/55 L 09/07/24 15:30 89 106/62 09/07/24 15:15 87 105/58 L 09/07/24 15:00 87 99/55 L 09/07/24 14:45 80 102/52 L 09/07/24 14:30 82 102/47 L 09/07/24 14:15 83 109/51 L 09/07/24 14:13 82 20 09/07/24 14:00 81 16 100/60 100 09/07/24 14:00 81 09/07/24 14:00 84 100/60 09/07/24 13:57 80 20 09/07/24 13:45 81 100/60 09/07/24 13:30 79 97/63 L 09/07/24 13:15 73 92/58 L 09/07/24 12:52 78 108/66 09/07/24 12:40 98.2 F 86 18 113/68 95 09/07/24 12:00 98.2 F 77 18 113/68 97 09/07/24 12:00 71 09/07/24 12:00 97 High Flow Therapy with Tr 20 09/07/24 10:00 85 18 125/81 98 09/07/24 10:00 85 09/07/24 09:07 20 L 86 H 09/07/24 09:06 92 High Flow Therapy with Tr 20 09/07/24 08:00 92 09/07/24 08:00 98.2 F 92 16 111/69 96 09/07/24 08:00 96 High Flow Therapy with Tr 20 09/07/24 06:00 91 16 107/55 L 94 09/07/24 05:57 90 09/07/24 05:27 88 L High Flow Therapy with Tr 20 09/07/24 04:24 86 18 09/07/24 04:17 85 16 09/07/24 04:00 81 09/07/24 04:00 98.0 F 81 14 95/71 L 89 L 09/07/24 04:00 96 High Flow Therapy with Tr 20 09/07/24 02:00 82 09/07/24 02:00 82 17 110/68 96 09/07/24 00:00 84 09/07/24 00:00 98.1 F 84 18 100/65 95 09/06/24 23:56 95 High Flow Therapy with Tr 20 09/06/24 22:00 84 09/06/24 22:00 86 16 113/69 93 09/06/24 20:16 79 21 H 09/06/24 20:07 77 19 09/06/24 20:07 95 High Flow Therapy with Tr 20 09/06/24 20:00 95 High Flow Therapy with Tr 20 09/06/24 20:00 78 09/06/24 20:00 98.0 F 77 17 97/64 L 96 09/06/24 18:00 74 18 86/58 L 96 09/06/24 18:00 72 Intake/Output Intake/Output: Intake & Output 09/04/24 09/05/24 09/06/24 09/07/24 23:59 23:59 23:59 23:59 Intake Total 1036.8 1040 1210 750 Output Total 3460 0 0 0 Balance -2423.2 1040 1210 750 Meds/Results Medications: Active Medications Generic Name Dose Route Start Last Admin Trade Name Freq PRN Reason Stop Dose Admin Acetaminophen 650 mg 08/27/24 15:58 09/03/24 13:01 Acetaminophen 325 Mg Tablet PO 650 mg Q4H PRN Administration Mild Pain (1-3) or Fever Albuterol/Ipratropium 3 ml 09/02/24 02:00 09/07/24 13:55 Ipratropium 0.5 Mg/Albuterol Sulfate 2.5 Mg Ampul.Neb 3 Ml INHALATION 3 ml Q6HRT ISELA Administration Apixaban 10 mg 09/01/24 10:40 09/07/24 08:17 Apixaban 5 Mg Tablet PO 09/07/24 21:01 10 mg Q12HR ISELA Administration Apixaban 5 mg 09/08/24 09:00 Apixaban 5 Mg Tablet PO Q12HR ISELA Dextrose 12.5 gm 08/27/24 23:31 08/30/24 07:50 Dextrose 50% 25 Gm/50 Ml Syringe IV PUSH 12.5 gm PRN PRN Administration Hypoglycemia Protocol Epoetin Shawn-epbx 10,000 units 09/07/24 18:50 09/07/24 13:38 Epoetin Shawn-Epbx 10,000 Units/Ml Vial IV PUSH 09/07/24 18:51 10,000 units ONCE ONE Administration Glucagon 1 mg 08/27/24 23:31 Glucagon For Inj 1 Mg Vial IM PRN PRN Hypoglycemia Protocol Glucose 15 gm 08/27/24 23:31 Glucose Oral Gel 15 Gm Of Glucse In 37.5 Gm Tube PO PRN PRN Hypoglycemia Protocol Dextrose 1,000 mls @ 100 mls/hr 08/27/24 23:31 Dextrose 5% 1,000 Ml IVPB PRN PRN Hypoglycemia Protocol Albumin Human 50 mls @ 999 mls/hr 08/28/24 01:42 08/28/24 12:30 Albutein IVPB 09/27/24 01:41 Infused Q10M PRN Infusion HYPOTENSION Levothyroxine Sodium 75 mcg 08/28/24 06:30 09/07/24 05:42 Levothyroxine Sodium 75 Mcg Tablet PO 75 mcg DAILY@0630 ISELA Administration Levothyroxine Sodium 100 mcg 08/28/24 06:30 09/07/24 05:42 Levothyroxine Sodium 100 Mcg Tablet PO 100 mcg DAILY@0630 ISELA Administration Midodrine 10 mg 08/29/24 08:00 09/07/24 12:25 Midodrine Hcl 10 Mg Tablet PO 10 mg TID ISELA Administration Pravastatin Sodium 40 mg 08/28/24 09:00 09/07/24 08:17 Pravastatin Sodium 20 Mg Tablet PO 40 mg DAILY ISELA Administration Sevelamer Carbonate 1,600 mg 09/05/24 12:00 09/07/24 12:25 Sevelamer Carbonate 800 Mg Tablet PO 1,600 mg TIDWM ISELA Administration Radiology Results: ITS Impressions Abdomen X-Ray 08/30/24 09:26 IMPRESSION: 1: NG tube coiled in the stomach. Venous Doppler Study 08/30/24 10:40 IMPRESSION: 1. Bilateral below the knee deep venous thrombosis in the peroneal veins. Findings were discussed with Annabel Macedo, the nurse caring for the patient, at 10:49 AM. Chest CTA 09/02/24 08:13 Impression: No evidence of pulmonary embolus, aortic dissection, or aortic aneurysm. Moderate right pleural effusion and small left pleural effusion. Bibasilar atelectasis and mild pulmonary edema. Chest X-Ray 09/06/24 06:11 Impression: Moderate right pleural effusion and small left pleural effusion, with mild to moderate pulmonary edema pattern. Tracheostomy cannula. Labs Labs: Laboratory Tests 09/07/24 04:27 09/07/24 04:27 Calcium 8.8 Magnesium 2.5 H Total Bilirubin 0.6 AST 17 ALT 10 Alkaline Phosphatase 56 Total Protein 7.0 Albumin 4.2
[2024-09-07] MEDS: CELLULOSE OXIDIZED 2 x 3 INCH 2 PKT XX (17:15)
[2024-09-08] VITALS (28 sets, daily range): BP systolic 93–142; BP diastolic 46–78; PULSE 69–98; RESP 16–24; TEMP 36.2–36.8; O2SAT 86–100
[2024-09-08] MEDS: IPRATROPIUM 0.5 MG/ALBUTEROL SULFATE 2.5 MG AMPUL.NEB 3 ML INHALATION ×4 (01:22→20:15)
[2024-09-08 04:25] LABS: Hemoglobin 9.3 g/dL (14.0-18.0); Immature Platelet Fraction Pct 8.5 % (0.9-11.2); Mean Corpuscular HGB Conc 29.1 g/dl (32-36); Mean Corpuscular Hemoglobin 33.5 pg (26-34); Mean Corpuscular Volume 115.1 fl (80-100); Mean Platelet Volume 11.5 fl (7.4-10.4); Platelet Count Result 132 k/mm3 (150-375); Red Blood Count 2.78 M/mm3 (4.6-6.20); White Blood Count 6.2 K/mm3 (4.5-10.0)
[2024-09-08 04:36] LABS: Alanine Aminotransferase 11 U/L (6-50); Albumin Level 4.4 g/dL (3.5-5.1); Alkaline Phosphatase 55 U/L (38-126); Anion Gap 12 mmol/L (4-12); Aspartate Amino Transferase 17 U/L (17-59); Bilirubin,Total 0.7 mg/dL (0.2-1.3); Blood Urea Nitrogen 29 mg/dL (9-20); Calcium 8.8 mg/dL (8.4-10.2); Carbon Dioxide 33 mmol/L (22-30); Chloride 93 mmol/L (98-107); Estimated CRCL calculation 18 ml/min; Estimated Glomerular Filt Rate 13; Glucose 129 mg/dL (65-110); Magnesium 2.3 mg/dL (1.6-2.3); Potassium 4.1 mmol/L (3.4-5.0); Sodium 138 mmol/L (137-145)
[2024-09-08] MEDS: LEVOTHYROXINE SODIUM 100 MCG TABLET PO (07:04)
[2024-09-08] MEDS: LEVOTHYROXINE SODIUM 75 MCG TABLET PO (07:04)
--- NOTE | 2024-09-08 07:42 | P.PNIM_ITS ---
Progress Note: A&P Assessment and Plan (1) Acute on chronic respiratory failure with hypoxia and hypercapnia: Code(s): J96.21 - Acute and chronic respiratory failure with hypoxia; J96.22 - Acute and chronic respiratory failure with hypercapnia Status: Acute Assessment and Plan: ICU events: Acute on chronic respiratory failure secondary to pulmonary edema and possible pneumonia, obesity hypoventilation, chronic respiratory failure secondary to laryngeal cancer status post laryngectomy and laryngeal tube placement Patient had laryngeal tube which could be attached to ventilator BiPAP and emergent ET tube was inserted through the laryngeal tube to secure airway and placed on mechanical ventilation. 08/31/2024 laryngeal 2 was switched to cuffed tracheostomy tube by ENT jin 8 Neel. Delete that CTA 4/ with no evidence of PE aortic dissection or aortic aneurysm. Moderate right pleural effusion and small left pleural effusion bibasilar atelectasis and mild pulmonary edema Wean FiO2 down on PSV trial per spacer type bar and segment IMU: completed Zosyn (2) Hypotension: Code(s): I95.9 - Hypotension, unspecified Status: Acute Assessment and Plan: Resolved Blood pressure has improved now Off Levophed (3) Diabetes: Code(s): E11.9 - Type 2 diabetes mellitus without complications Status: Acute Assessment and Plan: Sliding scale insulin on diet now (4) Hypothyroidism: Code(s): E03.9 - Hypothyroidism, unspecified Status: Acute Assessment and Plan: Continue levothyroxine (5) 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 - Tracheostomy status Status: Acute Assessment and Plan: See above (6) End-stage renal disease on hemodialysis: Code(s): N18.6 - End stage renal disease; Z99.2 - Dependence on renal dialysis Status: Acute Assessment and Plan: On hemodialysis as scheduled (7) Pulmonary edema: Qualifiers: Chronicity: acute Qualified Code(s): J81.0 - Acute pulmonary edema Code(s): J81.1 - Chronic pulmonary edema Status: Acute Assessment and Plan: See above (8) Generalized edema: Code(s): R60.1 - Generalized edema Status: Acute Assessment and Plan: See above (9) Sepsis: Code(s): A41.9 - Sepsis, unspecified organism Status: Acute Assessment and Plan: Resulted from community-acquired pneumonia considering lung infiltrates on chest x-ray sputum culture is growing Pseudomonas which is pansensitive MRSA screen was negative there is a possibility of him aspirating since he has been eating S/P Zosyn (10) DVT (deep venous thrombosis): Code(s): I82.409 - Acute embolism and thrombosis of unspecified deep veins of unspecified lower extremity Status: Acute Assessment and Plan: Lower extremity Dopplers done on 08/30 showed Bilateral below the knee deep venous thrombosis in the peroneal veins. CTA with no PE aortic dissection or AA aortic aneurysm 09/02 Patient is on Eliquis 5 mg PO BID Echocardiogram showed 1. Left ventricular chamber dimension is normal. 2. Left ventricular systolic function is normal, estimated at 50-55%. 3. There is mildly increased left ventricular wall thickness. 4. The left ventricular diastolic function is grade I diastolic dysfunction. 5. Right ventricular chamber dimension is moderately enlarged. 6. Right ventricular systolic function is reduced. 7. Right atrial chamber dimension is moderately enlarged. 8. There is mild mitral valve regurgitation. 9. There is moderate tricuspid valve regurgitation. 10. Estimated pulmonary arterial systolic pressure is 57 mmHg. 11. Dilated inferior vena cava with no collapse upon inspiration consistent with elevated right atrial pressure, 15 mmHg. Plan DVT prophylaxis -Eliquis Stress ulcer prophylaxis -PPI Nutrition -oral diet Code Status - Full Code Subjective Date/time seen: 09/08/24 07:42 Interval history: Patient downgraded from ICU yesterday. Currently on dialysis. Refuses to take Eliquis since he bleeds from his fistula site.He wants to discuss with his regarding placing IVC filter. Review of Systems Review of Systems: 12 systems were reviewed and are negativ e except for as per HPI. All systems reviewed & are unremarkable except as noted in HPI and below ROS unobtainable: Yes unobtainable due to endotracheal tube Exam Narrative: General: Pt is well-appearing gentleman who appears older than his age. He is awake follows command and is in no distress Lungs/Chest: Decreased bilateral breath sounds overall occasional crackles and decreased breath sound at bases, Cardiac: RRR. Normal S1 S2. No murmurs Circulation: Feet are well Abdomen: Decreased bowel sounds. Morbid Obese. Soft. NT. ND. Extremities: Bilateral pitting edema present chronic venous stasis present patient is missing his right great toe from past amputation : Hay in place Neurologic: Awake follows commands with all 4 extremities PERRL Const: General: comfortable and no acute distress Neck: Other: Humidified oxygen mask over tracheostomy. Resp: Effort & Inspection: normal respiratory effort Auscultation: crackles (occasional crackles) bilateral at the base and diminished lung sounds Cardio: Rate: regular rate Rhythm: regular rhythm GI: Auscultation: normal bowel sounds Other: hypoactive bowel sounds. Extrem: General: pedal edema bilaterally 3+ Psych: Mental Status: mental status grossly normal Affect: normal affect Objective Data Vital Signs Vital Signs: Vital Signs - 24 hr 09/07/24 08:00 09/07/24 08:00 09/07/24 08:00 Temperature 98.2 F Pulse Rate 92 92 Respiratory Rate 16 Blood Pressure 111/69 Pulse Oximetry 96 96 Oxygen Delivery High Flow Therapy with Tr Oxygen Flow Rate 20 Fraction of Inspired Oxygen 45 09/07/24 09:06 09/07/24 09:07 09/07/24 10:00 Temperature Pulse Rate 20 L 85 Respiratory Rate 86 H Blood Pressure Pulse Oximetry 92 Oxygen Delivery High Flow Therapy with Tr Oxygen Flow Rate 20 Fraction of Inspired Oxygen 40 09/07/24 10:00 09/07/24 12:00 09/07/24 12:00 Temperature Pulse Rate 85 71 Respiratory Rate 18 Blood Pressure 125/81 Pulse Oximetry 98 97 Oxygen Delivery High Flow Therapy with Tr Oxygen Flow Rate 20 Fraction of Inspired Oxygen 45 09/07/24 12:00 09/07/24 12:40 09/07/24 12:52 Temperature 98.2 F 98.2 F Pulse Rate 77 86 78 Respiratory Rate 18 18 Blood Pressure 113/68 113/68 108/66 Pulse Oximetry 97 95 Oxygen Delivery Oxygen Flow Rate Fraction of Inspired Oxygen 09/07/24 13:15 09/07/24 13:30 09/07/24 13:45 Temperature Pulse Rate 73 79 81 Respiratory Rate Blood Pressure 92/58 L 97/63 L 100/60 Pulse Oximetry Oxygen Delivery Oxygen Flow Rate Fraction of Inspired Oxygen 09/07/24 13:57 09/07/24 14:00 09/07/24 14:00 Temperature Pulse Rate 80 84 81 Respiratory Rate 20 Blood Pressure 100/60 Pulse Oximetry Oxygen Delivery Oxygen Flow Rate Fraction of Inspired Oxygen 09/07/24 14:00 09/07/24 14:13 09/07/24 14:15 Temperature Pulse Rate 81 82 83 Respiratory Rate 16 20 Blood Pressure 100/60 109/51 L Pulse Oximetry 100 Oxygen Delivery Oxygen Flow Rate Fraction of Inspired Oxygen 09/07/24 14:30 09/07/24 14:45 09/07/24 15:00 Temperature Pulse Rate 82 80 87 Respiratory Rate Blood Pressure 102/47 L 102/52 L 99/55 L Pulse Oximetry Oxygen Delivery Oxygen Flow Rate Fraction of Inspired Oxygen 09/07/24 15:15 09/07/24 15:30 09/07/24 15:45 Temperature Pulse Rate 87 89 88 Respiratory Rate Blood Pressure 105/58 L 106/62 102/55 L Pulse Oximetry Oxygen Delivery Oxygen Flow Rate Fraction of Inspired Oxygen 09/07/24 16:00 09/07/24 16:00 09/07/24 16:00 Temperature 98.3 F Pulse Rate 87 87 Respiratory Rate 16 Blood Pressure 105/57 L 105/57 L Pulse Oximetry 98 98 Oxygen Delivery High Flow Therapy with Tr Oxygen Flow Rate 20 Fraction of Inspired Oxygen 45 09/07/24 16:00 09/07/24 16:15 09/07/24 16:27 Temperature Pulse Rate 88 88 88 Respiratory Rate Blood Pressure 114/59 L 102/62 Pulse Oximetry Oxygen Delivery Oxygen Flow Rate Fraction of Inspired Oxygen 09/07/24 16:40 09/07/24 18:00 09/07/24 18:00 Temperature 98.2 F Pulse Rate 84 96 96 Respiratory Rate 16 22 H Blood Pressure 104/62 108/67 Pulse Oximetry 96 95 Oxygen Delivery Oxygen Flow Rate Fraction of Inspired Oxygen 09/07/24 20:00 09/07/24 20:00 09/07/24 20:00 Temperature 98.4 F Pulse Rate 93 91 93 Respiratory Rate 21 H 15 Blood Pressure 104/66 Pulse Oximetry 96 99 Oxygen Delivery High Flow Therapy with Tr Oxygen Flow Rate 20 Fraction of Inspired Oxygen 45 09/07/24 20:18 09/07/24 20:20 09/07/24 20:28 Temperature Pulse Rate 93 95 Respiratory Rate 21 H 21 H Blood Pressure Pulse Oximetry 96 Oxygen Delivery High Flow Therapy with Tr Oxygen Flow Rate 20 Fraction of Inspired Oxygen 45 09/07/24 22:00 09/08/24 00:00 09/08/24 00:00 Temperature 97.8 F Pulse Rate 92 93 85 Respiratory Rate 21 H 16 Blood Pressure 123/53 L Pulse Oximetry 96 95 Oxygen Delivery High Flow Therapy with Tr Oxygen Flow Rate 20 Fraction of Inspired Oxygen 45 09/08/24 00:00 09/08/24 01:25 09/08/24 01:35 Temperature Pulse Rate 92 97 98 Respiratory Rate 20 20 Blood Pressure Pulse Oximetry Oxygen Delivery Oxygen Flow Rate Fraction of Inspired Oxygen 09/08/24 02:00 09/08/24 03:23 09/08/24 04:00 Temperature 98.0 F Pulse Rate 95 92 Respiratory Rate 16 Blood Pressure 93/46 L Pulse Oximetry 100 100 Oxygen Delivery High Flow Therapy with Tr Oxygen Flow Rate 20 Fraction of Inspired Oxygen 45 09/08/24 04:00 09/08/24 06:00 Temperature Pulse Rate 91 94 Respiratory Rate Blood Pressure Pulse Oximetry Oxygen Delivery Oxygen Flow Rate Fraction of Inspired Oxygen Intake/Output Intake/Output: Intake & Output 09/05/24 09/06/24 09/07/24 09/08/24 23:59 23:59 23:59 23:59 Intake Total 1040 1210 1050 0 Output Total 0 0 2000 Balance 1040 1210 -950 0 Meds/Results Medications: Active Medications Generic Name Dose Route Start Last Admin Trade Name Freq PRN Reason Stop Dose Admin Acetaminophen 650 mg 08/27/24 15:58 09/03/24 13:01 Acetaminophen 325 Mg Tablet PO 650 mg Q4H PRN Administration Mild Pain (1-3) or Fever Albuterol/Ipratropium 3 ml 09/02/24 02:00 09/08/24 01:22 Ipratropium 0.5 Mg/Albuterol Sulfate 2.5 Mg Ampul.Neb 3 Ml INHALATION 3 ml Q6HRT ISELA Administration Apixaban 5 mg 09/08/24 09:00 Apixaban 5 Mg Tablet PO Q12HR [facility] Dextrose 12.5 gm 08/27/24 23:31 08/30/24 07:50 Dextrose 50% 25 Gm/50 Ml Syringe IV PUSH 12.5 gm PRN PRN Administration Hypoglycemia Protocol Glucagon 1 mg 08/27/24 23:31 Glucagon For Inj 1 Mg Vial IM PRN PRN Hypoglycemia Protocol Glucose 15 gm 08/27/24 23:31 Glucose Oral Gel 15 Gm Of Glucse In 37.5 Gm Tube PO PRN PRN Hypoglycemia Protocol Dextrose 1,000 mls @ 100 mls/hr 08/27/24 23:31 Dextrose 5% 1,000 Ml IVPB PRN PRN Hypoglycemia Protocol Albumin Human 50 mls @ 999 mls/hr 08/28/24 01:42 08/28/24 12:30 Albutein IVPB 09/27/24 01:41 Infused Q10M PRN Infusion HYPOTENSION Levothyroxine Sodium 75 mcg 08/28/24 06:30 09/08/24 07:04 Levothyroxine Sodium 75 Mcg Tablet PO 75 mcg DAILY@0630 ISELA Administration Levothyroxine Sodium 100 mcg 08/28/24 06:30 09/08/24 07:04 Levothyroxine Sodium 100 Mcg Tablet PO 100 mcg DAILY@0630 ISELA Administration Midodrine 10 mg 08/29/24 08:00 09/07/24 18:22 Midodrine Hcl 10 Mg Tablet PO 10 mg TID ISELA Administration Pravastatin Sodium 40 mg 08/28/24 09:00 09/07/24 08:17 Pravastatin Sodium 20 Mg Tablet PO 40 mg DAILY ISELA Administration Sevelamer Carbonate 1,600 mg 09/05/24 12:00 09/07/24 18:22 Sevelamer Carbonate 800 Mg Tablet PO 1,600 mg TIDWM ISELA Administration Radiology Results: ITS Impressions Abdomen X-Ray 08/30/24 09:26 IMPRESSION: 1: NG tube coiled in the stomach. Venous Doppler Study 08/30/24 10:40 IMPRESSION: 1. Bilateral below the knee deep venous thrombosis in the peroneal veins. Findings were discussed with Annabel Macedo, the nurse caring for the patient, at 10:49 AM. Chest CTA 09/02/24 08:13 Impression: No evidence of pulmonary embolus, aortic dissection, or aortic aneurysm. Moderate right pleural effusion and small left pleural effusion. Bibasilar atelectasis and mild pulmonary edema. Chest X-Ray 09/06/24 06:11 Impression: Moderate right pleural effusion and small left pleural effusion, with mild to moderate pulmonary edema pattern. Tracheostomy cannula. Labs Labs: Laboratory Results - last 24 hr 09/08/24 04:01 WBC 6.2 RBC 2.78 L Hgb 9.3 L Hct 32.0 L MCV 115.1 H MCH 33.5 MCHC 29.1 L RDW 15.0 H Plt Count 132 L MPV 11.5 H % Immature Plt Fraction 8.5 Sodium 138 Potassium 4.1 Chloride 93 L Carbon Dioxide 33 H Anion Gap 12 BUN 29 H D Creatinine 4.73 H Estim Creat Clear Calc 18 Estimated GFR 13 L Glucose 129 H Calcium 8.8 Magnesium 2.3 Total Bilirubin 0.7 AST 17 ALT 11 Alkaline Phosphatase 55 Total Protein 8.0 Albumin 4.4 Quality VTE Prophylaxis VTE prophylaxis: mechanical ordered and pharmacologic ordered Hospitalist MIPS Advance Care Plan I have confirmed that the patient's Advanced Care Plan is present, code status is documented, or surrogate decision maker is listed in patient medical record.: Yes Medication Reconciliation I have utilized all available resources to obtain, update and review the patients current medications (includes all prescriptions, OTC, herbals, cannabis, and nutritional supplements).: Yes
[2024-09-08] MEDS: MIDODRINE HCL 10 MG TABLET PO ×3 (08:30→16:42)
[2024-09-08] MEDS: SEVELAMER CARBONATE 800 MG TABLET 1600 MG PO ×3 (08:30→16:42)
[2024-09-08] MEDS: PRAVASTATIN SODIUM 20 MG TABLET 40 MG PO (08:31)
--- NOTE | 2024-09-08 12:41 | P.PNNP_ITS ---
Progress Note: A&P Assessment and Plan (1) End stage renal disease: Code(s): N18.6 - End stage renal disease Status: Chronic Assessment and Plan: * HD tomorrow * continue Friday//Friday dialysis schedule while hospitalized * follow electrolytes, volume status, and clearance * push fluid removal with dialysis as tolerated (2) Acute on chronic respiratory failure with hypoxia and hypercapnia: Code(s): J96.21 - Acute and chronic respiratory failure with hypoxia; J96.22 - Acute and chronic respiratory failure with hypercapnia Status: Acute Assessment and Plan: * due to several issues: * pulmonary edema * possible pneumonia * obesity hypoventilation * chronic respiratory failure secondary to laryngeal cancer status post laryngectomy and laryngeal tube placement * fluid removal with dry ultrafiltration and dialysis as tolerated by hemodynamics * completed antibiotic therapy for pneumonia (3) Hypotension: Code(s): I95.9 - Hypotension, unspecified Status: Acute Assessment and Plan: * resolved * noted since AM of 08/28 * worsened by administration scheduled BP medication on 08/28 as well * was asymptomatic * BP medications on hold * on midodrine * off vasopressor therapy (4) Pneumonia: Code(s): J18.9 - Pneumonia, unspecified organism Status: Acute Assessment and Plan: * resolving * as suggested by recent imaging * follow culture data - sputum culture noted * on antibiotic therapy (5) Hypertension: Code(s): I10 - Essential (primary) hypertension Status: Chronic Assessment and Plan: * BP medications on hold due to hypotension * resume as needed * follow trend of hemodynamics (6) Anemia: Code(s): D64.9 - Anemia, unspecified Status: Chronic Assessment and Plan: * due to ESRD and acute illness/hospitalization * Epogen/SHERINE with dialysis * follow trend of H/H (7) DVT (deep venous thrombosis): Qualifiers: DVT location: lower extremity Affected thrombotic vein of extremity: p eroneal Chronicity: acute Laterality: bilateral Qualified Code(s): I82.453 - Acute embolism and thrombosis of peroneal vein, bilateral Code(s): I82.409 - Acute embolism and thrombosis of unspecified deep veins of unspecified lower extremity Status: Acute Assessment and Plan: * lower extremity dopplers done on 08/30 with bilateral below the knee deep venous thrombosis in the peroneal veins. * patient on Eliquis (8) Type 2 diabetes mellitus: Code(s): E11.9 - Type 2 diabetes mellitus without complications Status: Chronic Assessment and Plan: * follow accu-cheks * glycemic control per hospitalist Will continue to follow. L Subjective Date/time seen: 09/08/24 12:41 Interval history: Follow-up for end stage renal disease on hemodialysis. Transferred out of the ICU; breathing/respiratory status as well as hemodynamics are stable if not improved; currently on trach collar/Venturi mask; tolerated dialysis treatment yesterday although did have prolonged bleeding from AV dialysis access post treatment; no apparent distress voiced at the time of my visit Exam 2 Narrative: General: WD/WN male in NAD Heart: normal S1 and S2; no rub Lungs: coarse and decreased breath sounds at bases Abdomen: soft, nontender but mild distension, positive bowel sounds Extremities: no cyanosis or clubbing; trace - 1+ edema in UEs and LEs Skin: warm and dry Objective Data Vital Signs Vital Signs: Vital Signs Temp Pulse Resp BP Pulse Ox O2 Del Method O2 Flow Rate 09/08/24 12:00 85 09/08/24 12:00 99 Trach Collar 09/08/24 11:42 96 Venturi Mask 12 09/08/24 11:40 86 L Venturi Mask 9 09/08/24 11:40 97.6 F 86 18 118/78 94 09/08/24 11:35 92 High Flow Therapy with Tr 40 09/08/24 10:00 90 09/08/24 09:00 85 09/08/24 08:51 88 24 H 09/08/24 08:49 91 High Flow Therapy with Tr 40 09/08/24 08:00 93 09/08/24 08:00 97 High Flow Therapy with Tr 40 09/08/24 08:00 97.5 F L 92 18 115/66 92 09/08/24 06:00 94 09/08/24 04:00 91 09/08/24 04:00 100 High Flow Therapy with Tr 20 09/08/24 03:23 98.0 F 92 16 93/46 L 100 09/08/24 02:00 95 09/08/24 01:35 98 20 09/08/24 01:25 97 20 09/08/24 00:00 92 09/08/24 00:00 97.8 F 85 16 123/53 L 95 09/08/24 00:00 93 21 H 96 High Flow Therapy with Tr 20 09/07/24 22:00 92 09/07/24 20:28 95 21 H 09/07/24 20:20 96 High Flow Therapy with Tr 20 09/07/24 20:18 93 21 H 09/07/24 20:00 93 09/07/24 20:00 98.4 F 91 15 104/66 99 09/07/24 20:00 93 21 H 96 High Flow Therapy with Tr 20 09/07/24 18:00 96 22 H 108/67 95 09/07/24 18:00 96 09/07/24 16:40 98.2 F 84 16 104/62 96 Intake/Output Intake/Output: Intake & Output 09/05/24 09/06/24 09/07/24 09/08/24 23:59 23:59 23:59 23:59 Intake Total 1040 1210 1050 180 Output Total 0 0 2000 Balance 1040 1210 -950 180 Meds/Results Medications: Active Medications Generic Name Dose Route Start Last Admin Trade Name Freq PRN Reason Stop Dose Admin Acetaminophen 650 mg 08/27/24 15:58 09/03/24 13:01 Acetaminophen 325 Mg Tablet PO 650 mg Q4H PRN Administration Mild Pain (1-3) or Fever Albuterol/Ipratropium 3 ml 09/02/24 02:00 09/08/24 13:48 Ipratropium 0.5 Mg/Albuterol Sulfate 2.5 Mg Ampul.Neb 3 Ml INHALATION 3 ml Q6HRT ISELA Administration Apixaban 5 mg 09/08/24 09:00 09/08/24 08:32 Apixaban 5 Mg Tablet PO Not Given Q12HR ISELA Dextrose 12.5 gm 08/27/24 23:31 08/30/24 07:50 Dextrose 50% 25 Gm/50 Ml Syringe IV PUSH 12.5 gm PRN PRN Administration Hypoglycemia Protocol Glucagon 1 mg 08/27/24 23:31 Glucagon For Inj 1 Mg Vial IM PRN PRN Hypoglycemia Protocol Glucose 15 gm 08/27/24 23:31 Glucose Oral Gel 15 Gm Of Glucse In 37.5 Gm Tube PO PRN PRN Hypoglycemia Protocol Dextrose 1,000 mls @ 100 mls/hr 08/27/24 23:31 Dextrose 5% 1,000 Ml IVPB PRN PRN Hypoglycemia Protocol Albumin Human 50 mls @ 999 mls/hr 08/28/24 01:42 08/28/24 12:30 Albutein IVPB 09/27/24 01:41 Infused Q10M PRN Infusion HYPOTENSION Levothyroxine Sodium 75 mcg 08/28/24 06:30 09/08/24 07:04 Levothyroxine Sodium 75 Mcg Tablet PO 75 mcg DAILY@0630 ISELA Administration Levothyroxine Sodium 100 mcg 08/28/24 06:30 09/08/24 07:04 Levothyroxine Sodium 100 Mcg Tablet PO 100 mcg DAILY@0630 ISELA Administration Midodrine 10 mg 08/29/24 08:00 09/08/24 12:38 Midodrine Hcl 10 Mg Tablet PO 10 mg TID ISELA Administration Pravastatin Sodium 40 mg 08/28/24 09:00 09/08/24 08:31 Pravastatin Sodium 20 Mg Tablet PO 40 mg DAILY ISELA Administration Sevelamer Carbonate 1,600 mg 09/05/24 12:00 09/08/24 11:46 Sevelamer Carbonate 800 Mg Tablet PO 1,600 mg TIDWM ISELA Administration Radiology Results: ITS Impressions Abdomen X-Ray 08/30/24 09:26 IMPRESSION: 1: NG tube coiled in the stomach. Venous Doppler Study 08/30/24 10:40 IMPRESSION: 1. Bilateral below the knee deep venous thrombosis in the peroneal veins. Findings were discussed with Annabel Macedo, the nurse caring for the patient, at 10:49 AM. Chest CTA 09/02/24 08:13 Impression: No evidence of pulmonary embolus, aortic dissection, or aortic aneurysm. Moderate right pleural effusion and small left pleural effusion. Bibasilar atelectasis and mild pulmonary edema. Chest X-Ray 09/06/24 06:11 Impression: Moderate right pleural effusion and small left pleural effusion, with mild to moderate pulmonary edema pattern. Tracheostomy cannula. Labs Labs: Laboratory Results - last 24 hr Laboratory Tests 09/08/24 04:01 09/08/24 04:01 Calcium 8.8 Magnesium 2.3 Total Bilirubin 0.7 AST 17 ALT 11 Alkaline Phosphatase 55 Total Protein 8.0 Albumin 4.4
[2024-09-09] VITALS (39 sets, daily range): BP systolic 88–143; BP diastolic 48–86; PULSE 55–101; RESP 16–20; TEMP 36.3–37; O2SAT 85–100
[2024-09-09] MEDS: IPRATROPIUM 0.5 MG/ALBUTEROL SULFATE 2.5 MG AMPUL.NEB 3 ML INHALATION ×2 (01:45→15:20)
[2024-09-09 04:52] LABS: Hemoglobin 9.5 g/dL (14.0-18.0); Mean Corpuscular HGB Conc 29.7 g/dl (32-36); Mean Corpuscular Hemoglobin 33.6 pg (26-34); Mean Corpuscular Volume 113.1 fl (80-100); Mean Platelet Volume 11.4 fl (7.4-10.4); Platelet Count Result 157 k/mm3 (150-375); Red Blood Count 2.83 M/mm3 (4.6-6.20); Red Cell Distribution Width 14.9 % (11.5-14.5); White Blood Count 5.6 K/mm3 (4.5-10.0)
[2024-09-09 04:56] LABS: Alanine Aminotransferase 10 U/L (6-50); Albumin Level 4.3 g/dL (3.5-5.1); Alkaline Phosphatase 66 U/L (38-126); Anion Gap 11 mmol/L (4-12); Aspartate Amino Transferase 16 U/L (17-59); Bilirubin,Total 0.9 mg/dL (0.2-1.3); Blood Urea Nitrogen 36 mg/dL (9-20); Calcium 9.2 mg/dL (8.4-10.2); Carbon Dioxide 33 mmol/L (22-30); Chloride 93 mmol/L (98-107); Estimated CRCL calculation 16 ml/min; Estimated Glomerular Filt Rate 11; Glucose 82 mg/dL (65-110); Magnesium 2.2 mg/dL (1.6-2.3); Potassium 4.4 mmol/L (3.4-5.0); Sodium 137 mmol/L (137-145)
[2024-09-09] MEDS: LEVOTHYROXINE SODIUM 75 MCG TABLET PO (06:12)
[2024-09-09] MEDS: LEVOTHYROXINE SODIUM 100 MCG TABLET PO (06:12)
[2024-09-09] MEDS: PRAVASTATIN SODIUM 20 MG TABLET 40 MG PO (08:10)
[2024-09-09] MEDS: MIDODRINE HCL 10 MG TABLET PO ×3 (08:10→17:10)
[2024-09-09] MEDS: SEVELAMER CARBONATE 800 MG TABLET 1600 MG PO ×3 (08:10→17:10)
--- NOTE | 2024-09-09 11:08 | PCPTNOTE ---
Attempted to see patient for PT, however patient was out of the room for dialysis.
[2024-09-09] MEDS: EPOETIN ALFA-EPBX 10,000 UNITS/ML VIAL 10000 UNITS IV PUSH (12:10)
--- NOTE | 2024-09-09 12:27 | P.PNNP_ITS ---
Progress Note: A&P Assessment and Plan (1) End stage renal disease: Code(s): N18.6 - End stage renal disease Status: Chronic Assessment and Plan: * HD today * continue Friday//Friday dialysis schedule while hospitalized * follow electrolytes, volume status, and clearance * push fluid removal with dialysis as tolerated (2) Acute on chronic respiratory failure with hypoxia and hypercapnia: Code(s): J96.21 - Acute and chronic respiratory failure with hypoxia; J96.22 - Acute and chronic respiratory failure with hypercapnia Status: Acute Assessment and Plan: * due to several issues: * pulmonary edema * possible pneumonia * obesity hypoventilation * chronic respiratory failure secondary to laryngeal cancer status post laryngectomy and laryngeal tube placement * fluid removal with dry ultrafiltration and dialysis as tolerated by hemodynamics * completed antibiotic therapy for pneumonia (3) Hypotension: Code(s): I95.9 - Hypotension, unspecified Status: Acute Assessment and Plan: * resolved * noted since AM of 08/28 * worsened by administration scheduled BP medication on 08/28 as well * was asymptomatic * BP medications on hold * on midodrine * off vasopressor therapy (4) Pneumonia: Code(s): J18.9 - Pneumonia, unspecified organism Status: Acute Assessment and Plan: * resolving * as suggested by recent imaging * follow culture data - sputum culture noted * on antibiotic therapy (5) Hypertension: Code(s): I10 - Essential (primary) hypertension Status: Chronic Assessment and Plan: * BP medications on hold due to hypotension * resume as needed * follow trend of hemodynamics (6) Anemia: Code(s): D64.9 - Anemia, unspecified Status: Chronic Assessment and Plan: * due to ESRD and acute illness/hospitalization * Epogen/SHERINE with dialysis * follow trend of H/H (7) DVT (deep venous thrombosis): Qualifiers: DVT location: lower extremity Affected thrombotic vein of extremity: p eroneal Chronicity: acute Laterality: bilateral Qualified Code(s): I82.453 - Acute embolism and thrombosis of peroneal vein, bilateral Code(s): I82.409 - Acute embolism and thrombosis of unspecified deep veins of unspecified lower extremity Status: Acute Assessment and Plan: * lower extremity dopplers done on 08/30 with bilateral below the knee deep venous thrombosis in the peroneal veins. * patient was on Eliquis (but refusing now) * IVC filter placement? -- Surgery consulted (8) Type 2 diabetes mellitus: Code(s): E11.9 - Type 2 diabetes mellitus without complications Status: Chronic Assessment and Plan: * follow accu-cheks * glycemic control per hospitalist Will continue to follow. L Subjective Date/time seen: 09/09/24 12:27 Interval history: Follow-up for end stage renal disease on hemodialysis. Tolerating dialysis treatment at the time of my visit (seen on HD at 12:15PM); breathing/respiratory status seems relatively stable if not better when seen; refusing to take Eliquis due to excessive bleeding from dialysis access (AVF) post-dialysis on Friday; no other acute issues/complaints voiced; no events overnight or earlier this morning; Surgery consulted for possible IVC filter placement given patient's refusal to take anticoagulation. Exam 2 Narrative: General: WD/WN male in NAD Heart: normal S1 and S2; no rub Lungs: coarse and decreased breath sounds at bases Abdomen: soft, nontender but mild distension, positive bowel sounds Extremities: no cyanosis or clubbing; trace - 1+ edema in UEs and LEs Skin: warm and intact Objective Data Vital Signs Vital Signs: Vital Signs Temp Pulse Resp BP Pulse Ox O2 Del Method O2 Flow Rate 09/09/24 12:15 87 94/52 L 09/09/24 12:00 87 09/09/24 12:00 90 93/56 L 09/09/24 11:45 85 96/61 L 09/09/24 11:30 85 98/57 L 09/09/24 11:15 86 99/57 L 09/09/24 11:00 86 96/66 L 09/09/24 10:45 87 102/57 L 09/09/24 10:30 86 103/62 09/09/24 10:15 84 102/58 L 09/09/24 10:12 94 High Flow Therapy with Tr 20 09/09/24 10:00 84 09/09/24 10:00 84 109/58 L 09/09/24 09:45 59 L 114/48 L 09/09/24 09:30 55 L 107/60 09/09/24 09:17 09/09/24 09:17 81 113/76 09/09/24 09:00 97.9 F 79 16 109/67 100 09/09/24 08:00 90 09/09/24 07:48 97.6 F 92 20 127/86 92 09/09/24 04:00 65 09/09/24 04:00 96 High Flow Therapy with Tr 20 09/09/24 03:47 98.2 F 75 16 143/79 H 100 09/09/24 02:00 94 09/09/24 01:54 95 18 09/09/24 01:47 94 High Flow Therapy with Tr 20 09/09/24 01:45 94 16 09/09/24 00:00 87 09/09/24 00:00 91 High Flow Therapy with Tr 20 09/08/24 23:49 98.2 F 69 16 93/67 L 97 09/08/24 22:00 86 09/08/24 21:47 94 High Flow Therapy with Tr 20 09/08/24 20:26 90 20 09/08/24 20:15 86 20 09/08/24 20:15 96 Venturi Mask 12 09/08/24 20:00 86 09/08/24 20:00 99 Trach Collar 09/08/24 19:56 97.2 F L 86 20 142/72 H 97 09/08/24 18:00 88 Intake/Output Intake/Output: Intake & Output 09/06/24 09/07/24 09/08/24 09/09/24 23:59 23:59 23:59 23:59 Intake Total 1210 1050 300 120 Output Total 0 2000 0 2950 Balance 1210 -950 300 -2830 Meds/Results Medications: Active Medications Generic Name Dose Route Start Last Admin Trade Name Liz PRN Reason Stop Dose Admin Acetaminophen 650 mg 08/27/24 15:58 09/03/24 13:01 Acetaminophen 325 Mg Tablet PO 650 mg Q4H PRN Administration Mild Pain (1-3) or Fever Albuterol/Ipratropium 3 ml 09/02/24 02:00 09/09/24 10:12 Ipratropium 0.5 Mg/Albuterol Sulfate 2.5 Mg Ampul.Neb 3 Ml INHALATION Not Given Q6HRT ISELA Apixaban 5 mg 09/08/24 09:00 09/09/24 08:10 Apixaban 5 Mg Tablet PO Not Given Q12HR ISELA Dextrose 12.5 gm 08/27/24 23:31 08/30/24 07:50 Dextrose 50% 25 Gm/50 Ml Syringe IV PUSH 12.5 gm PRN PRN Administration Hypoglycemia Protocol Epoetin Shawn-epbx 10,000 units 09/09/24 17:56 09/09/24 12:10 Epoetin Shawn-Epbx 10,000 Units/Ml Vial IV PUSH 09/09/24 17:57 10,000 units ONCE ONE Administration Glucagon 1 mg 08/27/24 23:31 Glucagon For Inj 1 Mg Vial IM PRN PRN Hypoglycemia Protocol Glucose 15 gm 08/27/24 23:31 Glucose Oral Gel 15 Gm Of Glucse In 37.5 Gm Tube PO PRN PRN Hypoglycemia Protocol Dextrose 1,000 mls @ 100 mls/hr 08/27/24 23:31 Dextrose 5% 1,000 Ml IVPB PRN PRN Hypoglycemia Protocol Albumin Human 50 mls @ 999 mls/hr 08/28/24 01:42 08/28/24 12:30 Albutein IVPB 09/27/24 01:41 Infused Q10M PRN Infusion HYPOTENSION Levothyroxine Sodium 75 mcg 08/28/24 06:30 09/09/24 06:12 Levothyroxine Sodium 75 Mcg Tablet PO 75 mcg DAILY@0630 ISELA Administration Levothyroxine Sodium 100 mcg 08/28/24 06:30 09/09/24 06:12 Levothyroxine Sodium 100 Mcg Tablet PO 100 mcg DAILY@0630 ISELA Administration Midodrine 10 mg 08/29/24 08:00 09/09/24 13:50 Midodrine Hcl 10 Mg Tablet PO 10 mg TID ISELA Administration Pravastatin Sodium 40 mg 08/28/24 09:00 09/09/24 08:10 Pravastatin Sodium 20 Mg Tablet PO 40 mg DAILY ISELA Administration Sevelamer Carbonate 1,600 mg 09/05/24 12:00 09/09/24 13:50 Sevelamer Carbonate 800 Mg Tablet PO 1,600 mg TIDWM ISELA Administration Radiology Results: ITS Impressions Abdomen X-Ray 08/30/24 09:26 IMPRESSION: 1: NG tube coiled in the stomach. Venous Doppler Study 08/30/24 10:40 IMPRESSION: 1. Bilateral below the knee deep venous thrombosis in the peroneal veins. Findings were discussed with Annabel Macedo, the nurse caring for the patient, at 10:49 AM. Chest CTA 09/02/24 08:13 Impression: No evidence of pulmonary embolus, aortic dissection, or aortic aneurysm. Moderate right pleural effusion and small left pleural effusion. Bibasilar atelectasis and mild pulmonary edema. Chest X-Ray 09/06/24 06:11 Impression: Moderate right pleural effusion and small left pleural effusion, with mild to moderate pulmonary edema pattern. Tracheostomy cannula. Labs Labs: Laboratory Tests 09/09/24 04:28 09/09/24 04:27 Calcium 9.2 Magnesium 2.2 Total Bilirubin 0.9 AST 16 L ALT 10 Alkaline Phosphatase 66 Total Protein 8.0 Albumin 4.3
--- NOTE | 2024-09-09 13:30 | PCOTNOTE ---
Patient out of the room at this time. Patient is in dialysis
--- NOTE | 2024-09-09 14:26 | PCPTNOTE ---
Attempted to see patient for PT, however patient declined. Patient reported he was too tired from dialysis and working with OT this date.
--- NOTE | 2024-09-09 15:25 | PCOTNOTE ---
Patient declined to perform at this time. Patient stating her still has not eaten and waiting for a new tray. Patient agreed to be seen tomorrow morning
--- NOTE | 2024-09-09 16:19 | PM.IMPN ---
Progress Note: A&P Assessment and Plan (1) Acute on chronic respiratory failure with hypoxia and hypercapnia: Code(s): J96.21 - Acute and chronic respiratory failure with hypoxia; J96.22 - Acute and chronic respiratory failure with hypercapnia Status: Acute Assessment and Plan: ICU events: Acute on chronic respiratory failure secondary to pulmonary edema and possible pneumonia, obesity hypoventilation, chronic respiratory failure secondary to laryngeal cancer status post laryngectomy and laryngeal tube placement Patient had laryngeal tube which could be attached to ventilator BiPAP and emergent ET tube was inserted through the laryngeal tube to secure airway and placed on mechanical ventilation. 08/31/2024 laryngeal 2 was switched to cuffed tracheostomy tube by ENT jin 8 Neel. Delete that CTA 4/ with no evidence of PE aortic dissection or aortic aneurysm. Moderate right pleural effusion and small left pleural effusion bibasilar atelectasis and mild pulmonary edema Wean FiO2 down on PSV trial per eap consultant IMU: completed Zosyn (2) Hypotension: Code(s): I95.9 - Hypotension, unspecified Status: Acute Assessment and Plan: Resolved Blood pressure has improved now Off Levophed (3) Diabetes: Code(s): E11.9 - Type 2 diabetes mellitus without complications Status: Acute Assessment and Plan: Sliding scale insulin on diet now (4) Hypothyroidism: Code(s): E03.9 - Hypothyroidism, unspecified Status: Acute Assessment and Plan: Continue levothyroxine (5) 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 - Tracheostomy status Status: Acute Assessment and Plan: See above (6) End-stage renal disease on hemodialysis: Code(s): N18.6 - End stage renal disease; Z99.2 - Dependence on renal dialysis Status: Acute Assessment and Plan: On hemodialysis as scheduled (7) Pulmonary edema: Qualifiers: Chronicity: acute Qualified Code(s): J81.0 - Acute pulmonary edema Code(s): J81.1 - Chronic pulmonary edema Status: Acute Assessment and Plan: See above (8) Generalized edema: Code(s): R60.1 - Generalized edema Status: Acute Assessment and Plan: See above (9) Sepsis: Code(s): A41.9 - Sepsis, unspecified organism Status: Acute Assessment and Plan: Resulted from community-acquired pneumonia considering lung infiltrates on chest x-ray sputum culture is growing Pseudomonas which is pansensitive MRSA screen was negative there is a possibility of him aspirating since he has been eating S/P Zosyn (10) DVT (deep venous thrombosis): Code(s): I82.409 - Acute embolism and thrombosis of unspecified deep veins of unspecified lower extremity Status: Acute Assessment and Plan: Lower extremity Dopplers done on 08/30 showed Bilateral below the knee deep venous thrombosis in the peroneal veins. CTA with no PE aortic dissection or AA aortic aneurysm 09/02 Patient is on Eliquis 5 mg PO BID Echocardiogram showed 1. Left ventricular chamber dimension is normal. 2. Left ventricular systolic function is normal, estimated at 50-55%. 3. There is mildly increased left ventricular wall thickness. 4. The left ventricular diastolic function is grade I diastolic dysfunction. 5. Right ventricular chamber dimension is moderately enlarged. 6. Right ventricular systolic function is reduced. 7. Right atrial chamber dimension is moderately enlarged. 8. There is mild mitral valve regurgitation. 9. There is moderate tricuspid valve regurgitation. 10. Estimated pulmonary arterial systolic pressure is 57 mmHg. 11. Dilated inferior vena cava with no collapse upon inspiration consistent with elevated right atrial pressure, 15 mmHg. Plan DVT prophylaxis -Eliquis Stress ulcer prophylaxis -PPI Nutrition -oral diet Code Status - Full Code Subjective Date/time seen: 09/09/24 16:19 Interval history: Unable to reach his to discuss about IVC filter insertion. Patient agrees to talk to surgery about IVC filter. Patient is currently on high-flow therapy with the trach collar, 20 L, 45% FiO2 Review of Systems Review of Systems: 12 systems were reviewed and are negative except for as per HPI. All systems reviewed & are unremarkable except as noted in HPI and below ROS unobtainable: Yes unobtainable due to endotracheal tube Exam Narrative: General: Pt is well-appearing gentleman who appears older than his age. He is awake follows command and is in no distress Lungs/Chest: Decreased bilateral breath sounds overall occasional crackles and decreased breath sound at bases, Cardiac: RRR. Normal S1 S2. No murmurs Circulation: Feet are well Abdomen: Decreased bowel sounds. Morbid Obese. Soft. NT. ND. Extremities: Bilateral pitting edema present chronic venous stasis present patient is missing his right great toe from past amputation : Hay in place Neurologic: Awake follows commands with all 4 extremities PERRL Const: General: comfortable and no acute distress Neck: Other: Humidified oxygen mask over tracheostomy. Resp: Effort & Inspection: normal respiratory effort Auscultation: crackles (occasional crackles) bilateral at the base and diminished lung sounds Cardio: Rate: regular rate Rhythm: regular rhythm GI: Auscultation: normal bowel sounds Other: hypoactive bowel sounds. Extrem: General: pedal edema bilaterally 3+ Psych: Mental Status: mental status grossly normal Affect: normal affect Objective Data Vital Signs Vital Signs: Vital Signs - 24 hr 09/08/24 18:00 09/08/24 19:56 09/08/24 20:00 Temperature 97.2 F L Pulse Rate 88 86 Respiratory Rate 20 Blood Pressure 142/72 H Pulse Oximetry 97 99 Oxygen Delivery Trach Collar Oxygen Flow Rate Fraction of Inspired Oxygen 40 09/08/24 20:00 09/08/24 20:15 09/08/24 20:15 Temperature Pulse Rate 86 86 Respiratory Rate 20 Blood Pressure Pulse Oximetry 96 Oxygen Delivery Venturi Mask Oxygen Flow Rate 12 Fraction of Inspired Oxygen 40 09/08/24 20:26 09/08/24 21:47 09/08/24 22:00 Temperature Pulse Rate 90 86 Respiratory Rate 20 Blood Pressure Pulse Oximetry 94 Oxygen Delivery High Flow Therapy with Tr Oxygen Flow Rate 20 Fraction of Inspired Oxygen 50 09/08/24 23:49 09/09/24 00:00 09/09/24 00:00 Temperature 98.2 F Pulse Rate 69 87 Respiratory Rate 16 Blood Pressure 93/67 L Pulse Oximetry 97 91 Oxygen Delivery High Flow Therapy with Tr Oxygen Flow Rate 20 Fraction of Inspired Oxygen 50 09/09/24 01:45 09/09/24 01:47 09/09/24 01:54 Temperature Pulse Rate 94 95 Respiratory Rate 16 18 Blood Pressure Pulse Oximetry 94 Oxygen Delivery High Flow Therapy with Tr Oxygen Flow Rate 20 Fraction of Inspired Oxygen 50 09/09/24 02:00 09/09/24 03:47 09/09/24 04:00 Temperature 98.2 F Pulse Rate 94 75 Respiratory Rate 16 Blood Pressure 143/79 H Pulse Oximetry 100 96 Oxygen Delivery High Flow Therapy with Tr Oxygen Flow Rate 20 Fraction of Inspired Oxygen 50 09/09/24 04:00 09/09/24 07:48 09/09/24 08:00 Temperature 97.6 F Pulse Rate 65 92 90 Respiratory Rate 20 Blood Pressure 127/86 Pulse Oximetry 92 Oxygen Delivery Oxygen Flow Rate Fraction of Inspired Oxygen 09/09/24 09:00 09/09/24 09:17 09/09/24 09:17 Temperature 97.9 F Pulse Rate 79 81 Respiratory Rate 16 Blood Pressure 109/67 113/76 Pulse Oximetry 100 Oxygen Delivery Oxygen Flow Rate Fraction of Inspired Oxygen 50 09/09/24 09:30 09/09/24 09:45 09/09/24 10:00 Temperature Pulse Rate 55 L 59 L 84 Respiratory Rate Blood Pressure 107/60 114/48 L 109/58 L Pulse Oximetry Oxygen Delivery Oxygen Flow Rate Fraction of Inspired Oxygen 09/09/24 10:00 09/09/24 10:12 09/09/24 10:15 Temperature Pulse Rate 84 84 Respiratory Rate Blood Pressure 102/58 L Pulse Oximetry 94 Oxygen Delivery High Flow Therapy with Tr Oxygen Flow Rate 20 Fraction of Inspired Oxygen 50 09/09/24 10:30 09/09/24 10:45 09/09/24 11:00 Temperature Pulse Rate 86 87 86 Respiratory Rate Blood Pressure 103/62 102/57 L 96/66 L Pulse Oximetry Oxygen Delivery Oxygen Flow Rate Fraction of Inspired Oxygen 09/09/24 11:15 09/09/24 11:30 09/09/24 11:45 Temperature Pulse Rate 86 85 85 Respiratory Rate Blood Pressure 99/57 L 98/57 L 96/61 L Pulse Oximetry Oxygen Delivery Oxygen Flow Rate Fraction of Inspired Oxygen 09/09/24 12:00 09/09/24 12:00 09/09/24 12:15 Temperature Pulse Rate 90 87 87 Respiratory Rate Blood Pressure 93/56 L 94/52 L Pulse Oximetry Oxygen Delivery Oxygen Flow Rate Fraction of Inspired Oxygen 09/09/24 12:30 09/09/24 12:48 09/09/24 12:55 Temperature 97.7 F Pulse Rate 90 94 93 Respiratory Rate 20 Blood Pressure 102/60 90/52 L 91/48 L Pulse Oximetry 97 Oxygen Delivery Oxygen Flow Rate Fraction of Inspired Oxygen 09/09/24 12:55 09/09/24 13:54 09/09/24 14:00 Temperature 97.6 F Pulse Rate 98 101 H Respiratory Rate 19 Blood Pressure 94/57 L Pulse Oximetry 95 95 Oxygen Delivery High Flow Therapy with Tr Oxygen Flow Rate 20 Fraction of Inspired Oxygen 09/09/24 15:20 09/09/24 15:32 Temperature Pulse Rate 90 Respiratory Rate 16 Blood Pressure Pulse Oximetry 92 Oxygen Delivery High Flow Therapy with Tr Oxygen Flow Rate 20 Fraction of Inspired Oxygen 45 Intake/Output Intake/Output: Intake & Output 09/06/24 09/07/24 09/08/24 09/09/24 23:59 23:59 23:59 23:59 Intake Total 1210 1050 300 120 Output Total 0 2000 0 2950 Balance 1210 -950 300 -2830 Meds/Results Medications: Active Medications Generic Name Dose Route Start Last Admin Trade Name Freq PRN Reason Stop Dose Admin Acetaminophen 650 mg 08/27/24 15:58 09/03/24 13:01 Acetaminophen 325 Mg Tablet PO 650 mg Q4H PRN Administration Mild Pain (1-3) or Fever Albuterol/Ipratropium 3 ml 09/02/24 02:00 09/09/24 10:12 Ipratropium 0.5 Mg/Albuterol Sulfate 2.5 Mg Ampul.Neb 3 Ml INHALATION Not Given Q6HRT ISELA Apixaban 5 mg 09/08/24 09:00 09/09/24 08:10 Apixaban 5 Mg Tablet PO Not Given Q12HR ISELA Dextrose 12.5 gm 08/27/24 23:31 08/30/24 07:50 Dextrose 50% 25 Gm/50 Ml Syringe IV PUSH 12.5 gm PRN PRN Administration Hypoglycemia Protocol Epoetin Shawn-epbx 10,000 units 09/09/24 17:56 09/09/24 12:10 Epoetin Shawn-Epbx 10,000 Units/Ml Vial IV PUSH 09/09/24 17:57 10,000 units ONCE ONE Administration Glucagon 1 mg 08/27/24 23:31 Glucagon For Inj 1 Mg Vial IM PRN PRN Hypoglycemia Protocol Glucose 15 gm 08/27/24 23:31 Glucose Oral Gel 15 Gm Of Glucse In 37.5 Gm Tube PO PRN PRN Hypoglycemia Protocol Dextrose 1,000 mls @ 100 mls/hr 08/27/24 23:31 Dextrose 5% 1,000 Ml IVPB PRN PRN Hypoglycemia Protocol Albumin Human 50 mls @ 999 mls/hr 08/28/24 01:42 08/28/24 12:30 Albutein IVPB 09/27/24 01:41 Infused Q10M PRN Infusion HYPOTENSION Levothyroxine Sodium 75 mcg 08/28/24 06:30 09/09/24 06:12 Levothyroxine Sodium 75 Mcg Tablet PO 75 mcg DAILY@0630 ISELA Administration Levothyroxine Sodium 100 mcg 08/28/24 06:30 09/09/24 06:12 Levothyroxine Sodium 100 Mcg Tablet PO 100 mcg DAILY@0630 ISELA Administration Midodrine 10 mg 08/29/24 08:00 09/09/24 13:50 Midodrine Hcl 10 Mg Tablet PO 10 mg TID ISELA Administration Pravastatin Sodium 40 mg 08/28/24 09:00 09/09/24 08:10 Pravastatin Sodium 20 Mg Tablet PO 40 mg DAILY ISELA Administration Sevelamer Carbonate 1,600 mg 09/05/24 12:00 09/09/24 13:50 Sevelamer Carbonate 800 Mg Tablet PO 1,600 mg TIDWM ISELA Administration Radiology Results: ITS Impressions Abdomen X-Ray 08/30/24 09:26 IMPRESSION: 1: NG tube coiled in the stomach. Venous Doppler Study 08/30/24 10:40 IMPRESSION: 1. Bilateral below the knee deep venous thrombosis in the peroneal veins. Findings were discussed with Annabel Macedo, the nurse caring for the patient, at 10:49 AM. Chest CTA 09/02/24 08:13 Impression: No evidence of pulmonary embolus, aortic dissection, or aortic aneurysm. Moderate right pleural effusion and small left pleural effusion. Bibasilar atelectasis and mild pulmonary edema. Chest X-Ray 09/06/24 06:11 Impression: Moderate right pleural effusion and small left pleural effusion, with mild to moderate pulmonary edema pattern. Tracheostomy cannula. Labs Labs: Laboratory Results - last 24 hr 09/09/24 09/09/24 04:27 04:28 WBC 5.6 RBC 2.83 L Hgb 9.5 L Hct 32.0 L MCV 113.1 H MCH 33.6 MCHC 29.7 L RDW 14.9 H Plt Count 157 MPV 11.4 H Sodium 137 Potassium 4.4 Chloride 93 L Carbon Dioxide 33 H Anion Gap 11 BUN 36 H Creatinine 5.47 H Estim Creat Clear Calc 16 Estimated GFR 11 L Glucose 82 Calcium 9.2 Magnesium 2.2 Total Bilirubin 0.9 AST 16 L ALT 10 Alkaline Phosphatase 66 Total Protein 8.0 Albumin 4.3 Quality VTE Prophylaxis VTE prophylaxis: mechanical ordered and pharmacologic ordered Hospitalist [facility] Advance Care Plan I have confirmed that the patient's Advanced Care Plan is present, code status is documented, or surrogate decision maker is listed in patient medical record.: Yes Medication Reconciliation I have utilized all available resources to obtain, update and review the patients current medications (includes all prescriptions, OTC, herbals, cannabis, and nutritional supplements).: Yes
--- NOTE | 2024-09-09 16:32 | P.CONGS_ITS ---
Assessment and Plan Assessment and plan (1) DVT (deep venous thrombosis): Code(s): I82.409 - Acute embolism and thrombosis of unspecified deep veins of unspecified lower extremity Status: Acute Assessment and Plan: This is the reason for our consultation. The patient has bilateral distal DVTs in the calf veins. He was started on anticoagulation, but is now refusing his Eliquis due to one occasion of bleeding from his fistula yesterday after being accessed for dialysis. He does not have any contraindications for anticoagulation. Recommendations for treatment of distal DVTs include monitoring for propagation or extension with repeat ultrasounds every week for 2 weeks. If there is no evidence of propagation, then no further treatment is needed. His initial venous dopplers were done 10 days ago, so we will order repeat venous dopplers today to re-evaluate. If there is no evidence of propagation/extension, then we would recommend repeating an ultrasound again in 5-7 days. If his distal DVTs appear stable, then no further treatment would be recommended. Thank you for allowing us to see this person in consultation. (2) End-stage renal disease on hemodialysis: Code(s): N18.6 - End stage renal disease; Z99.2 - Dependence on renal dialysis Status: Acute (3) Acute on chronic respiratory failure with hypoxia and hypercapnia: Code(s): J96.21 - Acute and chronic respiratory failure with hypoxia; J96.22 - Acute and chronic respiratory failure with hypercapnia Status: Acute (4) 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 - Tracheostomy status Status: Acute (5) Diabetes: Code(s): E11.9 - Type 2 diabetes mellitus without complications Status: Acute (6) Congestive heart failure: Code(s): I50.9 - Heart failure, unspecified Status: Acute Plan I have discussed the patient's case and plan of care with Dr. Whitaker. History of Present Illness Consult details Consult date: 09/09/24 Reason for consult: other (IVC filter placement) Requesting physician: Donis Carrasco MD Narrative: This is a 59-year-old man with a history laryngeal cancer status post partial laryngectomy with permanent tracheostomy, end-stage renal disease on hemodialysis, hypertension, and multiple other medical problems, who was admitted about 2 weeks ago to the hospital in need of dialysis. He was having issues with receiving his hemodialysis as an outpatient due to his tracheostomy needs and missed 2 treatments resulting in increasing shortness of breath and eventually coming into the ED. nephrology has been following and he has been receiving dialysis. He was found to have bilateral DVTs in the peroneal veins on 08/30/2024. He has been anticoagulated was transitioned to Eliquis. He had some issues with prolonged bleeding from his fistula yesterday after dialysis. Because of this, he refused anticoagulation. Our service is now consulted for requesting evaluation for possible IVC filter placement. Review of Systems 2 Review of Systems: All systems reviewed & are unremarkable except as noted in HPI and below PMFSH Past Medical History Medical History Laryngeal cancer (2016) status post partial laryngectomy and chemoradiation Right-sided heart failure Chronic respiratory failure with hypoxia, on home oxygen therapy Type 2 diabetes mellitus End-stage renal disease on hemodialysis Hyperlipidemia Congestive heart failure Renal osteodystrophy Erythropoietin deficiency anemia Hypothyroidism Hypertension Surgical History Surgical History History of partial laryngectomy History of percutaneous endoscopic gastrostomy History of tracheostomy Amputation of right great toe Family History Family History Mother Family history of diabetes mellitus in first degree relative Diabetes mellitus Hypertension Heart disease Cerebrovascular accident Father Alcoholism Sibling Alcoholism Diabetes mellitus Hypertension Heart disease Cerebrovascular accident Other Family history of lung cancer Social History Social History Social History: Surrogate medical decision maker: Dashasamantha Saxena, spouse. Code status: Full code. Smoking packs per day: 2 Smoking cigarettes per day: 40.0 Years smoked: 35 Smoking pack-years: 70.00 Smoking status: Former smoker Second hand tobacco smoke exposure: No Alcohol intake: never Substance use: never Substance use type: does not use Do You Feel Safe in your Home?: Yes Lack of Transportation: No Lack of Food: Never True Current Housing: I Have Housing Concerned About Future Housing: No Difficulty Paying Gas/Electric Bills: No Difficulty Paying for Meds: No Currently Unemployed: No Education: High School Diploma/GED Difficulty w/ Childcare or Family Care: No Additional living arrangements comments: Lives with spouse in [place]. They have 1 child. 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 care concerns: No Meds Home Medications and Allergies Home Medications ?Medication ?Instructions ?Recorded ?Confirmed ?Type amlodipine 10 mg tablet 10 mg PO DAILY 10/09/20 08/27/24 History carvedilol 12.5 mg tablet 12.5 mg PO Q12H 10/09/20 08/27/24 History levothyroxine 112 mcg capsule 175 mcg PO QAM 10/09/20 08/27/24 History losartan 100 mg tablet 100 mg PO DAILY 10/09/20 08/27/24 History pioglitazone 30 mg tablet 30 mg PO DAILY 10/09/20 08/27/24 History pravastatin 40 mg tablet 40 mg PO DAILY 05/08/23 08/27/24 History sevelamer carbonate 800 mg tablet 1,600 mg PO TIDWMEAL 08/07/24 08/27/24 History Allergies Allergy/AdvReac Type Severity Reaction Status Date / Time No Known Allergies Allergy Unknown Verified 08/05/24 10:41 Vital Signs Vital Signs - 24 hr 09/08/24 18:00 09/08/24 19:56 09/08/24 20:00 Temperature 97.2 F L Pulse Rate 88 86 Respiratory Rate 20 Blood Pressure 142/72 H Pulse Oximetry 97 99 Oxygen Delivery Trach Collar Oxygen Flow Rate Fraction of Inspired Oxygen 40 09/08/24 20:00 09/08/24 20:15 09/08/24 20:15 Temperature Pulse Rate 86 86 Respiratory Rate 20 Blood Pressure Pulse Oximetry 96 Oxygen Delivery Venturi Mask Oxygen Flow Rate 12 Fraction of Inspired Oxygen 40 09/08/24 20:26 09/08/24 21:47 09/08/24 22:00 Temperature Pulse Rate 90 86 Respiratory Rate 20 Blood Pressure Pulse Oximetry 94 Oxygen Delivery High Flow Therapy with Tr Oxygen Flow Rate 20 Fraction of Inspired Oxygen 50 09/08/24 23:49 09/09/24 00:00 09/09/24 00:00 Temperature 98.2 F Pulse Rate 69 87 Respiratory Rate 16 Blood Pressure 93/67 L Pulse Oximetry 97 91 Oxygen Delivery High Flow Therapy with Tr Oxygen Flow Rate 20 Fraction of Inspired Oxygen 50 09/09/24 01:45 09/09/24 01:47 09/09/24 01:54 Temperature Pulse Rate 94 95 Respiratory Rate 16 18 Blood Pressure Pulse Oximetry 94 Oxygen Delivery High Flow Therapy with Tr Oxygen Flow Rate 20 Fraction of Inspired Oxygen 50 09/09/24 02:00 09/09/24 03:47 09/09/24 04:00 Temperature 98.2 F Pulse Rate 94 75 Respiratory Rate 16 Blood Pressure 143/79 H Pulse Oximetry 100 96 Oxygen Delivery High Flow Therapy with Tr Oxygen Flow Rate 20 Fraction of Inspired Oxygen 50 09/09/24 04:00 09/09/24 07:48 09/09/24 08:00 Temperature 97.6 F Pulse Rate 65 92 90 Respiratory Rate 20 Blood Pressure 127/86 Pulse Oximetry 92 Oxygen Delivery Oxygen Flow Rate Fraction of Inspired Oxygen 09/09/24 09:00 09/09/24 09:17 09/09/24 09:17 Temperature 97.9 F Pulse Rate 79 81 Respiratory Rate 16 Blood Pressure 109/67 113/76 Pulse Oximetry 100 Oxygen Delivery Oxygen Flow Rate Fraction of Inspired Oxygen 50 09/09/24 09:30 09/09/24 09:45 09/09/24 10:00 Temperature Pulse Rate 55 L 59 L 84 Respiratory Rate Blood Pressure 107/60 114/48 L 109/58 L Pulse Oximetry Oxygen Delivery Oxygen Flow Rate Fraction of Inspired Oxygen 09/09/24 10:00 09/09/24 10:12 09/09/24 10:15 Temperature Pulse Rate 84 84 Respiratory Rate Blood Pressure 102/58 L Pulse Oximetry 94 Oxygen Delivery High Flow Therapy with Tr Oxygen Flow Rate 20 Fraction of Inspired Oxygen 50 09/09/24 10:30 09/09/24 10:45 09/09/24 11:00 Temperature Pulse Rate 86 87 86 Respiratory Rate Blood Pressure 103/62 102/57 L 96/66 L Pulse Oximetry Oxygen Delivery Oxygen Flow Rate Fraction of Inspired Oxygen 09/09/24 11:15 09/09/24 11:30 09/09/24 11:45 Temperature Pulse Rate 86 85 85 Respiratory Rate Blood Pressure 99/57 L 98/57 L 96/61 L Pulse Oximetry Oxygen Delivery Oxygen Flow Rate Fraction of Inspired Oxygen 09/09/24 12:00 09/09/24 12:00 09/09/24 12:15 Temperature Pulse Rate 90 87 87 Respiratory Rate Blood Pressure 93/56 L 94/52 L Pulse Oximetry Oxygen Delivery Oxygen Flow Rate Fraction of Inspired Oxygen 09/09/24 12:30 09/09/24 12:48 09/09/24 12:55 Temperature 97.7 F Pulse Rate 90 94 93 Respiratory Rate 20 Blood Pressure 102/60 90/52 L 91/48 L Pulse Oximetry 97 Oxygen Delivery Oxygen Flow Rate Fraction of Inspired Oxygen 09/09/24 12:55 09/09/24 13:54 09/09/24 14:00 Temperature 97.6 F Pulse Rate 98 101 H Respiratory Rate 19 Blood Pressure 94/57 L Pulse Oximetry 95 95 Oxygen Delivery High Flow Therapy with Tr Oxygen Flow Rate 20 Fraction of Inspired Oxygen 09/09/24 15:20 09/09/24 15:32 09/09/24 16:00 Temperature Pulse Rate 90 Respiratory Rate 16 Blood Pressure Pulse Oximetry 92 92 Oxygen Delivery High Flow Therapy with Tr High Flow Therapy with Tr Oxygen Flow Rate 20 20 Fraction of Inspired Oxygen 45 Exam 2 Const: General: no acute distress and ill appearing chronically Nutritional Appearance: average body habitus Orientation/consciousness: patient oriented x3 HENMT: Head: normocephalic, atraumatic and other (Tracheostomy in place) Eyes: General: appearance normal, both eyes and all related structures P upils: Equal, round and reactive pupils present Neck: Neck: tracheostomy present Chest: Chest palpation & inspection: normal inspection of the chest Resp: Effort & Inspection: no respiratory distress Auscultation: diminished lung sounds Cardio: Rate: regular rate Rhythm: regular rhythm Peripheral pulses: P eripheral pulses 2+ throughout GI: Inspection: non-distended GI Palp: Yes Soft to palpation, No Tenderness to palpation present (GI), No Guarding due to palpation present (GI) and No Rebound tenderness present Auscultation: normal bowel sounds Skin: General skin exam: normal color Neuro: General: moves all extremities and no focal motor deficits Motor exam (neuro): 5/5 motor strength present throughout Extrem: General: edema bilateral (Lower extremity edema) Psych: Mental Status: mental status grossly normal Attitude: cooperative Insight: Good insight present (Psych) Judgement: Good judgement present (Psych) Results Labs 09/09/24 04:28 09/09/24 04:27 Labs: Abnormal lab results 09/09/24 09/09/24 Range/Units 04:27 04:28 RBC 2.83 L (4.6-6.20) M/mm3 Hgb 9.5 L (14.0-18.0) g/dL Hct 32.0 L (42.0-52.0) % MCV 113.1 H (80-100) fl MCHC 29.7 L (32-36) g/dl RDW 14.9 H (11.5-14.5) % MPV 11.4 H (7.4-10.4) fl Chloride 93 L (98-107) mmol/L Carbon Dioxide 33 H (22-30) mmol/L BUN 36 H (9-20) mg/dL Creatinine 5.47 H (0.7-1.3) mg/dL Estimated GFR 11 L (59 - ) AST 16 L (17-59) U/L Diabetes panel 09/09/24 Range/Units 04:27 Sodium 137 (137-145) mmol/L Potassium 4.4 (3.4-5.0) mmol/L Chloride 93 L (98-107) mmol/L Carbon Dioxide 33 H (22-30) mmol/L BUN 36 H (9-20) mg/dL Creatinine 5.47 H (0.7-1.3) mg/dL Glucose 82 (65-110) mg/dL Calcium 9.2 (8.4-10.2) mg/dL AST 16 L (17-59) U/L ALT 10 (6-50) U/L Alkaline Phosphatase 66 (38-126) U/L Total Protein 8.0 (6.3-8.2) g/dL Albumin 4.3 (3.5-5.1) g/dL Calcium panel 09/09/24 Range/Units 04:27 Calcium 9.2 (8.4-10.2) mg/dL Albumin 4.3 (3.5-5.1) g/dL Pituitary panel 09/09/24 Range/Units 04:27 Sodium 137 (137-145) mmol/L Potassium 4.4 (3.4-5.0) mmol/L Chloride 93 L (98-107) mmol/L Carbon Dioxide 33 H (22-30) mmol/L BUN 36 H (9-20) mg/dL Creatinine 5.47 H (0.7-1.3) mg/dL Glucose 82 (65-110) mg/dL Calcium 9.2 (8.4-10.2) mg/dL Adrenal panel 09/09/24 Range/Units 04:27 Sodium 137 (137-145) mmol/L Potassium 4.4 (3.4-5.0) mmol/L Chloride 93 L (98-107) mmol/L Carbon Dioxide 33 H (22-30) mmol/L BUN 36 H (9-20) mg/dL Creatinine 5.47 H (0.7-1.3) mg/dL Glucose 82 (65-110) mg/dL Calcium 9.2 (8.4-10.2) mg/dL Total Bilirubin 0.9 (0.2-1.3) mg/dL AST 16 L (17-59) U/L ALT 10 (6-50) U/L Alkaline Phosphatase 66 (38-126) U/L Total Protein 8.0 (6.3-8.2) g/dL Albumin 4.3 (3.5-5.1) g/dL All other labs normal. Imaging Additional studies: ITS Impressions Chest X-Ray 08/28/24 07:26 IMPRESSION: 1. Airspace opacities in right lower lung zone and left mid and lower lung zones with worsening on the left, consistent with atelectasis versus pneumonia. 2. Small pleural effusions. 3. Cardiomegaly. Chest X-Ray 08/28/24 15:54 IMPRESSION: Multifocal pneumonia, moderate pulmonary vascular congestion with increasing bilateral pleural effusions and near complete opacification of the left hemithorax with aeration of the right upper lobe only. Chest X-Ray 08/29/24 14:19 IMPRESSION: Near-complete left hemithorax opacification. Decreasing bilateral lung aeration, particularly on the left. Moderate bilateral pleural effusions. Abdomen X-Ray 08/30/24 09:25 IMPRESSION: 1: NG tube tip in the stomach. Abdomen X-Ray 08/30/24 09:26 IMPRESSION: 1: NG tube coiled in the stomach. Venous Doppler Study 08/30/24 10:40 IMPRESSION: 1. Bilateral below the knee deep venous thrombosis in the peroneal veins. Findings were discussed with Annabel Macedo, the nurse caring for the patient, at 10:49 AM. Chest X-Ray 08/31/24 09:41 Impression: 1: Cardiomegaly with persistent pulmonary edema and pleural effusions. 2: Focal right apical opacity which overlies the first costochondral junction which may represent sclerosis at the junction or underlying parenchymal nodule. Consider correlation with CT chest to exclude underlying parenchymal abnormality. Chest CTA 09/02/24 08:13 Impression: No evidence of pulmonary embolus, aortic dissection, or aortic aneurysm. Moderate right pleural effusion and small left pleural effusion. Bibasilar atelectasis and mild pulmonary edema. Chest X-Ray 09/03/24 06:24 Impression: Moderate pleural effusions with mild pulmonary edema pattern. Stable hyperdense material the left lung base raises the possibility of prior aspiration. Support tubes, as above. Chest X-Ray 09/04/24 06:49 IMPRESSION: 1. Likely congestive heart failure with cardiomegaly and increasing mild pulmonary edema. 2. Interval decrease in now small right and small to moderate-sized left pleural effusions with associated bibasilar atelectasis and/or pneumonia. Chest X-Ray 09/05/24 08:06 IMPRESSION: No significant change from previous examination. Chest X-Ray 09/06/24 06:11 Impression: Moderate right pleural effusion and small left pleural effusion, with mild to moderate pulmonary edema pattern. Tracheostomy cannula.
[2024-09-10] VITALS (24 sets, daily range): BP systolic 92–121; BP diastolic 44–68; PULSE 80–95; RESP 16–20; TEMP 36.3–36.4; O2SAT 83–100
[2024-09-10] MEDS: LEVOTHYROXINE SODIUM 75 MCG TABLET PO (06:10)
[2024-09-10] MEDS: LEVOTHYROXINE SODIUM 100 MCG TABLET PO (06:10)
--- NOTE | 2024-09-10 08:58 | PCOTNOTE ---
The patient treatment was not able to be completed patient requested to sit on the edge of the bed to eat. Will plan to continue treatment per plan of care.
[2024-09-10] MEDS: IPRATROPIUM 0.5 MG/ALBUTEROL SULFATE 2.5 MG AMPUL.NEB 3 ML INHALATION ×3 (09:18→21:00)
[2024-09-10] MEDS: SEVELAMER CARBONATE 800 MG TABLET 1600 MG PO ×3 (09:30→16:50)
[2024-09-10] MEDS: PRAVASTATIN SODIUM 20 MG TABLET 40 MG PO (09:30)
[2024-09-10] MEDS: MIDODRINE HCL 10 MG TABLET PO ×3 (09:30→16:49)
--- NOTE | 2024-09-10 10:03 | P.PNNP_ITS ---
Progress Note: A&P Assessment and Plan (1) End stage renal disease: Code(s): N18.6 - End stage renal disease Status: Chronic Assessment and Plan: * HD tomorrow * continue Friday//Friday dialysis schedule while hospitalized * follow electrolytes, volume status, and clearance * push fluid removal with dialysis as tolerated (2) Acute on chronic respiratory failure with hypoxia and hypercapnia: Code(s): J96.21 - Acute and chronic respiratory failure with hypoxia; J96.22 - Acute and chronic respiratory failure with hypercapnia Status: Acute Assessment and Plan: * due to several issues: * pulmonary edema * possible pneumonia * obesity hypoventilation * chronic respiratory failure secondary to laryngeal cancer status post laryngectomy and laryngeal tube placement * fluid removal with dry ultrafiltration and dialysis as tolerated by hemodynamics * completed antibiotic therapy for pneumonia (3) Hypotension: Code(s): I95.9 - Hypotension, unspecified Status: Acute Assessment and Plan: * resolved * noted since AM of 08/28 * worsened by administration scheduled BP medication on 08/28 as well * was asymptomatic * BP medications on hold * on midodrine * off vasopressor therapy (4) Pneumonia: Code(s): J18.9 - Pneumonia, unspecified organism Status: Acute Assessment and Plan: * resolving * as suggested by recent imaging * follow culture data - sputum culture noted * on antibiotic therapy (5) Hypertension: Code(s): I10 - Essential (primary) hypertension Status: Chronic Assessment and Plan: * BP medications on hold due to hypotension * resume as needed * follow trend of hemodynamics (6) Anemia: Code(s): D64.9 - Anemia, unspecified Status: Chronic Assessment and Plan: * due to ESRD and acute illness/hospitalization * Epogen/SHERINE with dialysis * follow trend of H/H (7) DVT (deep venous thrombosis): Qualifiers: DVT location: lower extremity Affected thrombotic vein of extremity: p eroneal Chronicity: acute Laterality: bilateral Qualified Code(s): I82.453 - Acute embolism and thrombosis of peroneal vein, bilateral Code(s): I82.409 - Acute embolism and thrombosis of unspecified deep veins of unspecified lower extremity Status: Acute Assessment and Plan: * lower extremity dopplers done on 08/30 with bilateral below the knee deep venous thrombosis in the peroneal veins. * patient was on Eliquis (but refusing now) * repeat LE dopplers negative for DVTs * IVC filter placement needed? -- Surgery following (8) Type 2 diabetes mellitus: Code(s): E11.9 - Type 2 diabetes mellitus without complications Status: Chronic Assessment and Plan: * follow accu-cheks * glycemic control per hospitalist Will continue to follow. L Subjective Date/time seen: 09/10/24 10:03 Interval history: Follow-up for end stage renal disease on hemodialysis. Tolerated dialysis treatment yesterday without any issues or problems; no apparent distress noted at the time of my visit; breathing/respiratory status stable on trach collar; no other events overnight or earlier this morning; able to converse using speaking valve; note plans for possible discharge today to [facility]. Exam 2 Narrative: General: WD/WN male in NAD Heart: normal S1 and S2; no rub Lungs: coarse and decreased breath sounds at bases Abdomen: soft, nontender but mild distension, positive bowel sounds Extremities: no cyanosis or clubbing; trace edema in UEs and LEs Skin: no rash or nodules Objective Data Vital Signs Vital Signs: Vital Signs Temp Pulse Resp BP Pulse Ox O2 Del Method O2 Flow Rate 09/10/24 10:00 95 High Flow Therapy with Tr 20 09/10/24 09:48 95 High Flow Therapy with Tr 20 09/10/24 09:40 89 09/10/24 09:39 89 16 09/10/24 09:27 88 16 09/10/24 09:20 100 High Flow Therapy with Tr 20 09/10/24 08:20 87 09/10/24 08:20 98 High Flow Therapy with Tr 20 09/10/24 07:54 97.3 F L 84 18 121/68 98 09/10/24 06:00 83 09/10/24 04:00 97.4 F L 86 20 115/68 97 09/10/24 04:00 84 09/10/24 04:00 97 High Flow Therapy with Tr 20 09/10/24 02:00 87 09/10/24 00:00 88 09/10/24 00:00 99 High Flow Therapy with Tr 20 09/10/24 00:00 97.6 F 91 20 97/50 L 98 09/09/24 22:00 95 09/09/24 21:26 95 High Flow Therapy with Tr 20 09/09/24 20:30 85 L High Flow Therapy with Tr 20 09/09/24 20:00 90 09/09/24 20:00 97.7 F 90 20 92/55 L 92 09/09/24 18:00 92 09/09/24 16:40 103/65 09/09/24 16:00 88 09/09/24 16:00 97.3 F L 93 18 88/53 L 92 09/09/24 16:00 92 High Flow Therapy with Tr 20 09/09/24 15:32 92 High Flow Therapy with Tr 20 Intake/Output Intake/Output: Intake & Output 09/07/24 09/08/24 09/09/24 09/10/24 23:59 23:59 23:59 23:59 Intake Total 1050 300 320 320 Output Total 2000 0 2950 Balance -950 300 -2630 320 Meds/Results Medications: Active Medications Generic Name Dose Route Start Last Admin Trade Name Freq PRN Reason Stop Dose Admin Acetaminophen 650 mg 08/27/24 15:58 09/03/24 13:01 Acetaminophen 325 Mg Tablet PO 650 mg Q4H PRN Administration Mild Pain (1-3) or Fever Albuterol/Ipratropium 3 ml 09/02/24 02:00 09/10/24 14:27 Ipratropium 0.5 Mg/Albuterol Sulfate 2.5 Mg Ampul.Neb 3 Ml INHALATION 3 ml Q6HRT ISELA Administration Apixaban 5 mg 09/08/24 09:00 09/10/24 09:35 Apixaban 5 Mg Tablet PO Not Given Q12HR ISELA Dextrose 12.5 gm 08/27/24 23:31 08/30/24 07:50 Dextrose 50% 25 Gm/50 Ml Syringe IV PUSH 12.5 gm PRN PRN Administration Hypoglycemia Protocol Glucagon 1 mg 08/27/24 23:31 Glucagon For Inj 1 Mg Vial IM PRN PRN Hypoglycemia Protocol Glucose 15 gm 08/27/24 23:31 Glucose Oral Gel 15 Gm Of Glucse In 37.5 Gm Tube PO PRN PRN Hypoglycemia Protocol Dextrose 1,000 mls @ 100 mls/hr 08/27/24 23:31 Dextrose 5% 1,000 Ml IVPB PRN PRN Hypoglycemia Protocol Albumin Human 50 mls @ 999 mls/hr 08/28/24 01:42 08/28/24 12:30 Albutein IVPB 09/27/24 01:41 Infused Q10M PRN Infusion HYPOTENSION Levothyroxine Sodium 75 mcg 08/28/24 06:30 09/10/24 06:10 Levothyroxine Sodium 75 Mcg Tablet PO 75 mcg DAILY@0630 ISELA Administration Levothyroxine Sodium 100 mcg 08/28/24 06:30 09/10/24 06:10 Levothyroxine Sodium 100 Mcg Tablet PO 100 mcg DAILY@0630 ISELA Administration Midodrine 10 mg 08/29/24 08:00 09/10/24 13:05 Midodrine Hcl 10 Mg Tablet PO 10 mg TID ISELA Administration Pravastatin Sodium 40 mg 08/28/24 09:00 09/10/24 09:30 Pravastatin Sodium 20 Mg Tablet PO 40 mg DAILY ISELA Administration Sevelamer Carbonate 1,600 mg 09/05/24 12:00 09/10/24 13:05 Sevelamer Carbonate 800 Mg Tablet PO 1,600 mg TIDWM ISELA Administration Radiology Results: ITS Impressions Abdomen X-Ray 08/30/24 09:26 IMPRESSION: 1: NG tube coiled in the stomach. Chest CTA 09/02/24 08:13 Impression: No evidence of pulmonary embolus, aortic dissection, or aortic aneurysm. Moderate right pleural effusion and small left pleural effusion. Bibasilar atelectasis and mild pulmonary edema. Chest X-Ray 09/06/24 06:11 Impression: Moderate right pleural effusion and small left pleural effusion, with mild to moderate pulmonary edema pattern. Tracheostomy cannula. Venous Doppler Study 09/10/24 07:41 IMPRESSION: 1: No lower extremity deep venous thrombosis. Labs Labs: Laboratory Tests 09/09/24 04:28 09/09/24 04:27
--- NOTE | 2024-09-10 11:18 | PCOTNOTE ---
The patient treatment was not able to be completed. Patient working with PT at this time. Will plan to continue treatment per plan of care.
--- NOTE | 2024-09-10 14:06 | PM.PNGS ---
Progress Note: A&P Assessment and Plan (1) DVT (deep venous thrombosis): Qualifiers: DVT location: lower extremity Affected thrombotic vein of extremity: peroneal Chronicity: acute Laterality: bilateral Qualified Code(s): I82.453 - Acute embolism and thrombosis of peroneal vein, bilateral Code(s): I82.409 - Acute embolism and thrombosis of unspecified deep veins of unspecified lower extremity Status: Acute Assessment and Plan: Repeat venous Dopplers today, 10 days after the original study, show no evidence of DVT. Patient does not need to continue on anticoagulation from my perspective and does not need a vena cava filter. Calf vein DVTs frequently resolve. We will sign off. Okay to discharge and no surgical follow-up is needed. Subjective Subjective Date/Time Seen: 09/10/24 14:06 Patient reports: no new complaints Review of Systems Review of Systems: All systems reviewed & are unremarkable except as noted in HPI and below (HPI) Constitutional: Constitutional: Denies chills and Denies fever(s) Musculoskeletal: Musculoskeletal: Reports other (NO CALF PAIN) Objective Data Vital Signs Vital Signs: Vital Signs - 24 hr 09/09/24 15:20 09/09/24 15:32 09/09/24 16:00 Temperature Pulse Rate 90 Respiratory Rate 16 Blood Pressure Pulse Oximetry 92 92 Oxygen Delivery High Flow Therapy with Tr High Flow Therapy with Tr Oxygen Flow Rate 20 20 Fraction of Inspired Oxygen 45 09/09/24 16:00 09/09/24 16:00 09/09/24 16:40 Temperature 36.3 C L Pulse Rate 93 88 Respiratory Rate 18 Blood Pressure 88/53 L 103/65 Pulse Oximetry 92 Oxygen Delivery Oxygen Flow Rate Fraction of Inspired Oxygen 09/09/24 18:00 09/09/24 20:00 09/09/24 20:00 Temperature 36.5 C Pulse Rate 92 90 90 Respiratory Rate 20 Blood Pressure 92/55 L Pulse Oximetry 92 Oxygen Delivery Oxygen Flow Rate Fraction of Inspired Oxygen 09/09/24 20:30 09/09/24 21:26 09/09/24 22:00 Temperature Pulse Rate 95 Respiratory Rate Blood Pressure Pulse Oximetry 85 L 95 Oxygen Delivery High Flow Therapy with Tr High Flow Therapy with Tr Oxygen Flow Rate 20 20 Fraction of Inspired Oxygen 44 45 09/10/24 00:00 09/10/24 00:00 09/10/24 00:00 Temperature 36.4 C Pulse Rate 91 88 Respiratory Rate 20 Blood Pressure 97/50 L Pulse Oximetry 98 99 Oxygen Delivery High Flow Therapy with Tr Oxygen Flow Rate 20 Fraction of Inspired Oxygen 70 09/10/24 02:00 09/10/24 04:00 09/10/24 04:00 Temperature Pulse Rate 87 84 Respiratory Rate Blood Pressure Pulse Oximetry 97 Oxygen Delivery High Flow Therapy with Tr Oxygen Flow Rate 20 Fraction of Inspired Oxygen 70 09/10/24 04:00 09/10/24 06:00 09/10/24 07:54 Temperature 36.3 C L 36.3 C L Pulse Rate 86 83 84 Respiratory Rate 20 18 Blood Pressure 115/68 121/68 Pulse Oximetry 97 98 Oxygen Delivery Oxygen Flow Rate Fraction of Inspired Oxygen 09/10/24 08:20 09/10/24 08:20 09/10/24 09:20 Temperature Pulse Rate 87 Respiratory Rate Blood Pressure Pulse Oximetry 98 100 Oxygen Delivery High Flow Therapy with Tr High Flow Therapy with Tr Oxygen Flow Rate 20 20 Fraction of Inspired Oxygen 70 70 09/10/24 09:27 09/10/24 09:39 09/10/24 09:40 Temperature Pulse Rate 88 89 89 Respiratory Rate 16 16 Blood Pressure Pulse Oximetry Oxygen Delivery Oxygen Flow Rate Fraction of Inspired Oxygen 09/10/24 09:48 09/10/24 10:00 09/10/24 10:57 Temperature Pulse Rate Respiratory Rate Blood Pressure Pulse Oximetry 95 95 Oxygen Delivery High Flow Therapy with Tr High Flow Therapy with Tr High Flow Therapy with Tr Oxygen Flow Rate 20 20 20 Fraction of Inspired Oxygen 40 40 09/10/24 12:00 Temperature 36.4 C L Pulse Rate 87 Respiratory Rate 20 Blood Pressure 92/44 L Pulse Oximetry 94 Oxygen Delivery Oxygen Flow Rate Fraction of Inspired Oxygen Intake/Output Intake/Output: Intake & Output 09/07/24 09/08/24 09/09/24 09/10/24 23:59 23:59 23:59 23:59 Intake Total 1050 300 320 320 Output Total 2000 0 2950 Balance -950 300 -2630 320 Meds/Results Medications: Active Medications Generic Name Dose Route Start Last Admin Trade Name Freq PRN Reason Stop Dose Admin Acetaminophen 650 mg 08/27/24 15:58 09/03/24 13:01 Acetaminophen 325 Mg Tablet PO 650 mg Q4H PRN Administration Mild Pain (1-3) or Fever Albuterol/Ipratropium 3 ml 09/02/24 02:00 09/10/24 09:18 Ipratropium 0.5 Mg/Albuterol Sulfate 2.5 Mg Ampul.Neb 3 Ml INHALATION 3 ml Q6HRT ISELA Administration Apixaban 5 mg 09/08/24 09:00 09/10/24 09:35 Apixaban 5 Mg Tablet PO Not Given Q12HR ISELA Dextrose 12.5 gm 08/27/24 23:31 08/30/24 07:50 Dextrose 50% 25 Gm/50 Ml Syringe IV PUSH 12.5 gm PRN PRN Administration Hypoglycemia Protocol Glucagon 1 mg 08/27/24 23:31 Glucagon For Inj 1 Mg Vial IM PRN PRN Hypoglycemia Protocol Glucose 15 gm 08/27/24 23:31 Glucose Oral Gel 15 Gm Of Glucse In 37.5 Gm Tube PO PRN PRN Hypoglycemia Protocol Dextrose 1,000 mls @ 100 mls/hr 08/27/24 23:31 Dextrose 5% 1,000 Ml IVPB PRN PRN Hypoglycemia Protocol Albumin Human 50 mls @ 999 mls/hr 08/28/24 01:42 08/28/24 12:30 Albutein IVPB 09/27/24 01:41 Infused Q10M PRN Infusion HYPOTENSION Levothyroxine Sodium 75 mcg 08/28/24 06:30 09/10/24 06:10 Levothyroxine Sodium 75 Mcg Tablet PO 75 mcg DAILY@0630 ISELA Administration Levothyroxine Sodium 100 mcg 08/28/24 06:30 09/10/24 06:10 Levothyroxine Sodium 100 Mcg Tablet PO 100 mcg DAILY@0630 ISELA Administration Midodrine 10 mg 08/29/24 08:00 09/10/24 13:05 Midodrine Hcl 10 Mg Tablet PO 10 mg TID ISELA Administration Pravastatin Sodium 40 mg 08/28/24 09:00 09/10/24 09:30 Pravastatin Sodium 20 Mg Tablet PO 40 mg DAILY ISELA Administration Sevelamer Carbonate 1,600 mg 09/05/24 12:00 09/10/24 13:05 Sevelamer Carbonate 800 Mg Tablet PO 1,600 mg TIDWM ISELA Administration Radiology Results: ITS Impressions Abdomen X-Ray 08/30/24 09:26 IMPRESSION: 1: NG tube coiled in the stomach. Chest CTA 09/02/24 08:13 Impression: No evidence of pulmonary embolus, aortic dissection, or aortic aneurysm. Moderate right pleural effusion and small left pleural effusion. Bibasilar atelectasis and mild pulmonary edema. Chest X-Ray 09/06/24 06:11 Impression: Moderate right pleural effusion and small left pleural effusion, with mild to moderate pulmonary edema pattern. Tracheostomy cannula. Venous Doppler Study 09/10/24 07:41 IMPRESSION: 1: No lower extremity deep venous thrombosis.
--- NOTE | 2024-09-10 14:50 | PM.DS ---
DS: Admitting Diagnosis Discharge Date 09/10/2024 Admitting Diagnosis SOB DS: Discharge Diagnosis Discharge Diagnosis (1) Acute on chronic respiratory failure with hypoxia and hypercapnia: Code(s): J96.21 - Acute and chronic respiratory failure with hypoxia; J96.22 - Acute and chronic respiratory failure with hypercapnia Status: Acute Assessment and Plan: ICU events: Acute on chronic respiratory failure secondary to pulmonary edema and possible pneumonia, obesity hypoventilation, chronic respiratory failure secondary to laryngeal cancer status post laryngectomy and laryngeal tube placement Patient had laryngeal tube which could be attached to ventilator BiPAP and emergent ET tube was inserted through the laryngeal tube to secure airway and placed on mechanical ventilation. 08/31/2024 laryngeal 2 was switched to cuffed tracheostomy tube by ENT jin 8 Neel. Delete that CTA 09/02 with no evidence of PE aortic dissection or aortic aneurysm. Moderate right pleural effusion and small left pleural effusion bibasilar atelectasis and mild pulmonary edema Wean FiO2 down on PSV trial per esthetician makeup artist IMU: completed Zosyn (2) Hypotension: Code(s): I95.9 - Hypotension, unspecified Status: Acute Assessment and Plan: Resolved Blood pressure has improved now Off Levophed (3) Diabetes: Code(s): E11.9 - Type 2 diabetes mellitus without complications Status: Acute Assessment and Plan: Sliding scale insulin on diet now (4) Hypothyroidism: Code(s): E03.9 - Hypothyroidism, unspecified Status: Acute Assessment and Plan: Continue levothyroxine (5) 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 - Tracheostomy status Status: Acute Assessment and Plan: See above (6) End-stage renal disease on hemodialysis: Code(s): N18.6 - End stage renal disease; Z99.2 - Dependence on renal dialysis Status: Acute Assessment and Plan: On hemodialysis as scheduled (7) Pulmonary edema: Qualifiers: Chronicity: acute Qualified Code(s): J81.0 - Acute pulmonary edema Code(s): J81.1 - Chronic pulmonary edema Status: Acute Assessment and Plan: See above (8) Generalized edema: Code(s): R60.1 - Generalized edema Status: Acute Assessment and Plan: See above (9) Sepsis: Code(s): A41.9 - Sepsis, unspecified organism Status: Acute Assessment and Plan: Resulted from community-acquired pneumonia considering lung infiltrates on chest x-ray sputum culture is growing Pseudomonas which is pansensitive MRSA screen was negative there is a possibility of him aspirating since he has been eating S/P Zosyn (10) DVT (deep venous thrombosis): Qualifiers: DVT location: lower extremity Affected thrombotic vein of extremity: peroneal Chronicity: acute Laterality: bilateral Qualified Code(s): I82.453 - Acute embolism and thrombosis of peroneal vein, bilateral Code(s): I82.409 - Acute embolism and thrombosis of unspecified deep veins of unspecified lower extremity Status: Acute Assessment and Plan: Lower extremity Dopplers done on 08/30 showed Bilateral below the knee deep venous thrombosis in the peroneal veins. CTA with no PE aortic dissection or AA aortic aneurysm 09/02 Patient is on Eliquis 5 mg PO BID Echocardiogram showed 1. Left ventricular chamber dimension is normal. 2. Left ventricular systolic function is normal, estimated at 50-55%. 3. There is mildly increased left ventricular wall thickness. 4. The left ventricular diastolic function is grade I diastolic dysfunction. 5. Right ventricular chamber dimension is moderately enlarged. 6. Right ventricular systolic function is reduced. 7. Right atrial chamber dimension is moderately enlarged. 8. There is mild mitral valve regurgitation. 9. There is moderate tricuspid valve regurgitation. 10. Estimated pulmonary arterial systolic pressure is 57 mmHg. 11. Dilated inferior vena cava with no collapse upon inspiration consistent with elevated right atrial pressure, 15 mmHg. DS: Summary Hospital Course Hospital Course: Bubba Saxena is a 59 year old male with significant past medical history of laryngeal cancer status post chemo radiation and deloris tube, right heart failure, chronic respiratory failure on home O2, type 2 diabetes, end-stage renal disease on dialysis, anemia, hypothyroidism, essential hypertension who was recently admitted at [facility] early this month and was eventually transferred to [facility] for ENT evaluation. He returned to [facility] on 08/27 with complaint of generalized weakness. Patient is on Friday schedule and has not had cup of dialysis sessions because his dialysis unit could not accommodate him due to his tracheostomy tube. Patient was unable to find any other option for dialysis and hence presented to ER. At that time he had no other significant complaint. He had stable electrolytes. He had stable vital signs and at that time denied any fever. He did had lower extremity edema and his WBC was normal. Patient was admitted and in dialysis was attempted yes but they were unable to remove any fluid due to hypotension. Patient did get his antihypertensive medications the morning. Patient infected got additional fluid bolus for his low blood pressure. His blood pressure medication with then discontinue and patient was started on some midodrine. Patient had a rapid response due to low saturated oxygen and low blood pressure. Process Control Manager was asked to evaluate patient with a rapid response. Patient was awake drowsy but responsive. His blood pressure was low. He was getting fluid bolus. On his lung exam he had decreased air movement. A stat portable chest x-ray was done which showed near complete opacification of left hemithorax and decreased bilateral aeration bilateral pleural effusions along with pulmonary edema patient was also hypotensive Patient patient was emergently transferred to ICU. He discontinued the fluid bolus as patient appeared clearly volume overloaded On arrival to ICU decision was made to place patient mechanical ventilation as patient appeared to be rapidly deteriorating with low saturations and blood pressure. Attempted to place a size 6.5 ET tube through his laryngeal 2 but was unable to advance the ET tube. Once the ET tube was removed significant amount of secretions deposited on the ET tube which were dried and crusted. Then a size 6 ET tube was placed to the laryngeal tube without any difficulty. Tube was adjusted to adequate depth after and a chest x-ray. Patient has had remained low and he had to be bagged with PEEP valve. Patient was then placed on mechanical ventilation he had very high peak pressure due decreased lung compliance and small size of his ET tube. Patient was suction multiple times and was lavaged to remove significant amount of secretions. Patient was placed on mechanical ventilation with low tidal volume and low rate to minimize pressures and high PEEP to improve oxygenation. This led to his sats improving to her low 90s. Patient was awake alert and following commands throughout although history could not be obtained due to emergent situation. On 08/29 :His laryngeal tubeo cannot be attached to ventilator or BiPAP. An emergent ET tube was inserted through the laryngeal tube to secure airway and attached to mechanical ventilation Patient had a similar issue earlier this month when he was transferred to [facility] where ENT changed his Brigitte tube to a cuffed tracheostomy tube. Patient was on mechanical ventilation and eventually he improved and it was changed back to a noncuffed laryngeal tube prior to discharge. Patient at this time likely needs it changed back to a cuffed trach to allow ongoing mechanical ventilation. Erlinvist will consulted ENT for assistance. On 08/30:ENT : Tracheostomy change: Patient had Endotracheal tube placed ,Shiley 8 cuffed tube was placed in the tracheotomy and inflated with Air and was secured using trach tie then trach was connected to the ventilator Patient had a very prolonged hospitalization from08/27-09/10. I assumed on 09/08-09/10: Patient was eventually downgraded from ICU and currently doing well.During ICU patient had bilateral DVT but patient refuse taking AC. Consulted surgery for IVC placement and they repeated US LE today.US LE shows Interval resolution of deep venous thrombosis in the peroneal veins.So no further investigation from surgery Status at Discharge Cognitive/behavioral status at discharge: Stable Time Spent with Patient Time attestation: Total time spent providing and/or coordinating discharge services:45 minutes Exam Narrative: General: Pt is well-appearing gentleman who appears older than his age. He is awake follows command and is in no distress Lungs/Chest: Decreased bilateral breath sounds overall occasional crackles and decreased breath sound at bases, Cardiac: RRR. Normal S1 S2. No murmurs Circulation: Feet are well Abdomen: Decreased bowel sounds. Morbid Obese. Soft. NT. ND. Extremities: Bilateral pitting edema present chronic venous stasis present patient is missing his right great toe from past amputation : Hay in place Neurologic: Awake follows commands with all 4 extremities PERRL Const: General: comfortable and no acute distress Neck: Other: Humidified oxygen mask over tracheostomy. Resp: Effort & Inspection: normal respiratory effort Auscultation: crackles (occasional crackles) bilateral at the base and diminished lung sounds Cardio: Rate: regular rate Rhythm: regular rhythm GI: Auscultation: normal bowel sounds Other: hypoactive bowel sounds. Extrem: General: pedal edema bilaterally 3+ Psych: Mental Status: mental status grossly normal Affect: normal affect Discharge Plan Discharge Attending physician on discharge: Donis Carrasco Consulting providers: Javed Crespo; Bernardino Galaviz Discharging Clinician: Donis Carrasco Anticipated Discharge Date/Time: 09/10/24 16:02 Patient Disposition: [facility] Hospital Activity: as tolerated Diet: renal Discharge Instructions: ENT team at [facility] to change trach base on pt ventilatory needs- HEMALATHAB Dr. Alkarmi Patient Instructions: Heart Failure (GEN) Patient Language: Wolof Stand Alone Forms: General Discharge Information Discharge Medications: New midodrine 10 mg Tablet 10 mg PO TID Qty: 30 0RF Continued levothyroxine 112 mcg capsule 175 mcg PO QAM losartan 100 mg tablet 100 mg PO DAILY amlodipine 10 mg tablet 10 mg PO DAILY carvedilol 12.5 mg tablet 12.5 mg PO Q12H Rx Instructions: must administer with a meal/food sevelamer carbonate 800 mg tablet 1,600 mg PO TIDWMEAL pravastatin 40 mg tablet 40 mg PO DAILY Discontinued pioglitazone 30 mg tablet 30 mg PO DAILY Date of admission: 08/29/24 13:45 Primary Care Provider: PHYSICIAN NOT ON STAFF,NONSTAFF Admitting Provider: Aidan Miguel Attending physician on admission: Aidan Miguel Condition: Stable
--- NOTE | 2024-09-13 10:54 | W.PM.PROC2 ---
Procedure Note - Detailed Date of Procedure 08/30/24 Pre-op Diagnosis ESRD ON HD,TRACH DEPENDENT Post-op Diagnosis Same Procedure Performed Endotracheal trach tube exchange with cuffed tracheostomy tube Surgeon Javed Crespo MD Anesthesia None Indications Patient needs ventilatory support through cuffed trach tube Description of Procedure At bed side of the patient with the presence of respiratory therapist and the child protective services social worker , The endotracheal tube was disconnected from the ventilator, the endotracheal tube was deflated , pulled from the stoma ,then the Cuffed Trach tube Shiley 8 was placed in the trach stoma , the cuff was inflated,and the the trach tube was connected to the ventilator Estimated Blood Loss 0 (ml) Urine Output 0 Packing No Complications No immediate complications Disposition No change [facility] Billing Surgery - Charge Forward: Surgery Billing
== END 2024-09-10 21:42 | DRG 130 ==
LOC: ANHED 14:15 → ANH2MED 16:35 → ANHICU 08-29 14:21 → ANHIMU 09-10 16:04 → ANHICU 09-13 09:16 → ANHIMU 09-13 09:16
PROVIDERS: Internal Medicine; Internal Medicine Nephrology; Nurse Practitioner Family; Physician Assistant; Admitting Provider Internal Medicine; Emergency Provider Physician Assistant; Visit Provider General Practice
DX: J96.22 Acute and chronic respiratory failure with hypercapnia (principal); E87.79 Other fluid overload; J96.21 Acute and chronic respiratory failure with hypoxia; J18.9 Pneumonia, unspecified organism; I13.2 Hypertensive heart and chronic kidney disease with heart failure and with stage 5 chronic kidney disease, or end stage renal disease; N18.6 End stage renal disease; I50.810 Right heart failure, unspecified; B96.5 Pseudomonas (aeruginosa) (mallei) (pseudomallei) as the cause of diseases classified elsewhere; A41.9 Sepsis, unspecified organism; I82.453 Acute embolism and thrombosis of peroneal vein, bilateral; E78.5 Hyperlipidemia, unspecified; E03.9 Hypothyroidism, unspecified; E11.22 Type 2 diabetes mellitus with diabetic chronic kidney disease; D61.818 Other pancytopenia; E66.2 Morbid (severe) obesity with alveolar hypoventilation; I95.9 Hypotension, unspecified; N25.0 Renal osteodystrophy; Z99.2 Dependence on renal dialysis; Z93.0 Tracheostomy status; Z85.21 Personal history of malignant neoplasm of larynx; Z68.32 Body mass index [BMI] 32.0-32.9, adult; Z93.1 Gastrostomy status; Z99.81 Dependence on supplemental oxygen
CPT/HCPCS: 36415; 36600; 71045; 71275; 80048; 80053; 80202; 82375; 82607; 82746; 82805; 82948; 83050; 83605; 83735; 83880; 84100; 84145; 84439; 84443; 84480; 84484; 85018; 85025; 85027; 85055; 85610; 85730; 86706; 87040; 87070; 87186; 87205; 87340; 87637; 87641; 92610; 93005; 93970; 94002; 94003; 94640; 96374; 96375; 96376; 97110; 97161; 97166; 97530; 97535; 99285; A9270; C1751; C8929; G0257; G0378; G0379; J0456; J0461; J0696; J1644; J1650; J2250; J2470; J2543; J3370; J7030; J7050; P9047; Q5105; Q9957; Q9967